=== PATIENT | female | born 1940 | race Caucasian/White ===

== ENCOUNTER 2019-12-05 19:01 | Observation (INO) | payer MEDICARE, OTHER, SELFPAY ==
[2019-12-05 19:02] VITALS: BP 171/82; PULSE 76; PULSE 78; RESP 14; RESP 16; TEMP 36.3; O2SAT 98
--- NOTE | 2019-12-05 19:13 | EKG12_ITS ---
Test Reason : DYSRHYTHMIA Blood Pressure : / mmHG Vent. Rate : 073 BPM Atrial Rate : 073 BPM P-R Int : 174 ms QRS Dur : 098 ms QT Int : 412 ms P-R-T Axes : 067 044 066 degrees QTc Int : 453 ms Normal sinus rhythm Normal ECG Confirmed by YARELIS RANDALL, LOW ([id number]), health editor JUSTIN HERNANDEZ ([id number]) on 12/07/2019 11:30:49 AM Referred By: MARIZOL Confirmed By:LOW SANTOYO MD
--- NOTE | 2019-12-05 19:13 | CT_ITS ---
STUDY: CTA HEAD AND NECK WITH CONTRAST REASON FOR EXAM: Female, 78 years old. DIZZINESS X 3 DAYS RADIATION DOSAGE (If Supplied By Facility): CTDIvol = ( 30.35 ) mGy, DLP = ( 1466.95 ) mGycm TECHNIQUE: CT angiography was performed with a multi-detector CT scanner. Data acquisition was obtained from the skull base through the vertex following intravenous administration of IV 100mL Isovue-370. MIP images were reconstructed from the axial data set. Post-processing of the angiographic images was performed, with multiplanar reformation and 3D reconstruction. Individualized dose optimization techniques were used for this CT. COMPARISON: No relevant priors. FINDINGS: Normal bilateral petrous carotid arteries. Normal right cavernous carotid artery with a normal supraclinoid bifurcation. Normal left cavernous carotid artery with a normal supraclinoid bifurcation. Normal right A1 segments of the anterior cerebral artery. Normal left A1 segments of the anterior cerebral artery. Normal intact anterior communicating artery (ACOM). Normal bilateral A2 segments of the anterior cerebral arteries. Normal right M1 and M2 segments of the middle cerebral arteries, with a normal M1 bifurcation. Normal left M1 and M2 segments of the middle cerebral arteries, with a normal M1 bifurcation. Normal right posterior communicating artery (PCOM). Normal left posterior communicating artery (PCOM). Normal bilateral vertebral arteries. Normal basilar artery with a normal basilar bifurcation. The visualized bilateral superior cerebellar (SCA) arteries are normal. Normal bilateral P1, P2 and visualized P3 segments of the posterior cerebral arteries. There is no demonstrated aneurysm of the makah of Velázquez. There is no demonstrated abnormality of the visualized brain. AORTIC ARCH: Normal visualized aortic arch. Normal origins of the brachiocephalic, left common carotid, and left subclavian arteries. RIGHT CAROTID ARTERIES: Normal right common carotid artery (CCA). Normal right common carotid bulb. Normal origin of the right internal carotid (ICA) artery without a hemodynamically significant stenosis. Normal visualized cervical portion of the right internal carotid artery. Normal origin of the right external carotid artery (ECA). LEFT CAROTID ARTERIES: Normal left common carotid artery (CCA). Normal left common carotid bulb. Normal origin of the left internal carotid (ICA) artery without a hemodynamically significant stenosis. Normal visualized cervical portion of the left internal carotid artery. Normal origin of the left external carotid artery (ECA). VERTEBRAL ARTERIES: Normal bilateral vertebral arteries. There are multiple hypodense subcentimeter thyroid nodules these are low risk appearing but not completely evaluated. CT/CTA Head AND Neck W/ Contrast IMPRESSION: Normal CTA Head and neck with contrast. Electronically Signed: Araceli Vila, at 20:09 EDT Tel , Service support ,
--- NOTE | 2019-12-05 19:15 | ED.DCSUM_ITS ---
- ER Visit Summary Date of Service: 12/05/19 Chief Complaint: Vertigo History of Present Illness: The patient is a [address] Hassan. She reports that she has vertigo that began 2 to 3 days ago. It worsened today. It is a constant sense of the room spinning. It gets worse when she opens her eyes or moves her head. She reports that she has muffled hearing from her right ear which she has had for years. She reports that she had to have a myringotomy tube placed years ago for this on the right. She reports that is gotten worse again over the past 2 to 3 weeks. States that she has decreased hearing. She denies ringing in her ear, but does report a whooshing sound. She denies any pain to her ear. Patient reports that today she is been nausea with this and vomited twice. No blood in her emesis. She denies abdominal pain. She denies slurred speech, numbness, tingling, weakness, double vision, or headache. Physical Examination: Vitals: Stable. Afebrile. General: Well-nourished and well-developed. Head: Normocephalic atraumatic. HEENT: Right TM has a defect in it. Despite this there is a serous effusion as well. Left TM is normal. Neck: Supple, no lymphadenopathy. No JVD. Nontender. Cardiovascular: Regular rate and rhythm. No murmurs. Respiratory: No respiratory distress. Clear to auscultation bilaterally. Abdominal: Soft, nontender, nondistended, normal bowel sounds. No guarding, rebound, or peritoneal signs. Back: Nontender. Extremities: Nontender, no edema. Skin: Normal color, no rash. Neurologic: Alert and oriented ?3. Cranial nerves II through XII are intact. Normal strength and sensation. Rotary nystagmus with gaze to the right. Psych: Normal affect. Test Results: EKG is sinus at 73 with no acute changes. CBC shows segmented neutrophils 86 and lymphocytes of 10. Chem-7 shows a sodium 134, potassium 3.1, glucose 129. INR is 1.0. PTT is 24.0. Troponin is negative. Clinical Impression(s) from Imaging Studies Head/Neck CTA 12/05/19 19:13 IMPRESSION: Normal CTA Head and neck with contrast. Electronically Signed: Araceli Vila, at 20:09 EDT Tel , Service support , Emergency Department Course and Treatment: Patient had an IV placed. She was given Zofran IV and Antivert p.o. she has had some improvement. However, she remains dizzy and cannot ambulate. Treatment Plan: Patient was discussed with the hospitalist. She will be admitted for further evaluation treatment. Disposition: Admitted in improved condition. Impression: 1. Vertigo. 2. Right tympanic membrane perforation. 3. Serous effusion right TM. This note was generated with [employer] dictation software. It may contain incorrect words, spelling, and punctuation that were not noted in review of the chart prior to signing ED Disposition - Plan for ED Patient: Referrals: Juan Hassan MD [Primary Care Provider] -
[2019-12-05 19:23] LABS: Absolute Lymphocyte Count 0.87 X10^3/uL (0.83-4.51); Absolute Neutrophil Count 7.6 X10^3/uL (2.0-7.7); Basophil# 0.02 X10^3/uL; Basophil% 0.2 % (0-1); Eosinophil# 0.02 X10^3/uL; Eosinophils% 0.2 % (0-5); Hematocrit 43.8 % (37-47); Hemoglobin 14.2 g/dL (12.0-15.0); Lymphocyte # 0.87 X10^3/ul (4.0); Lymphocyte % 9.7 % (19-41); Mean Corp Hgb Conc 32.4 g/dL (32-36); Mean Corpuscular Hgb 30.4 pg (27.0-32.0); Mean Corpuscular Volume 93.8 fL (81-99); Mean Platelet Vol. 9.6 fl (6.2-12.0); Monocyte# 0.36 X10^3/uL; NRBC Flagged by Analyzer 0 % (0-5); Neutrophil # 7.63 X10^3/uL (2.7-7.7); Neutrophil % 85.6 % (47-70); Platelet Count 225 K/mm3 (150-450); RBC Distribution Width CV 12.3 % (11.6-14.6); RBC Distribution Width SD 42.5 fl (35.1-43.9); Red Blood Count 4.67 M/mm3 (4.2-5.4); White Blood Count 8.9 K/mm3 (4.4-11.0)
[2019-12-05] MEDS: Ondansetron 4 MG/2 ML Vial IV (19:31)
[2019-12-05] MEDS: Meclizine HCl 25 MG Tablet PO (19:32)
[2019-12-05] MEDS: 0.9% Normal Saline 1,000 ML 100 ML IV ×2 (19:32→21:27)
[2019-12-05 19:33] VITALS: BP 157/82; PULSE 74; RESP 18; O2SAT 98
[2019-12-05 19:35] LABS: Anion Gap 8 (5-15); BUN 13 mg/dL (7-18); BUN/Creat Ratio 13.6 RATIO (10-20); Calcium,Total 9.9 mg/dL (8.5-10.1); Chloride 100 mmol/L (98-107); Creatinine, Serum 0.95 mg/dL (0.55-1.02); EST Glomerular Filtration Rate 60 mL/min (>60); Est Glom Filt Rate - Afr Amer 73 mL/min (>60); Glucose 129 mg/dL (74-106); Potassium 3.1 mmol/L (3.5-5.1); Sodium Level 134 mmol/L (136-145)
[2019-12-05 19:46] LABS: Bedside Glucose 110 mg/dL (70-110)
[2019-12-05 20:00] VITALS: BP 146/68; PULSE 79; RESP 16; O2SAT 98
[2019-12-05 20:36] VITALS: BP 122/60; PULSE 81; RESP 14; TEMP 36.6; O2SAT 98
--- NOTE | 2019-12-05 20:36 | HP.PCM_ITS ---
History of Present Illness Date of Admission: 12/05/19 Chief Complaint: Vertigo The patient is a 78 year old F with PMH as below who presents to the hospital with vertigo. Said about 2 to 3 days ago and she is had it before. She also has a history of myringotomy on the right, and in the ER it was noticed that her rotary nystagmus was also to the right. She denies any ringing in her ears, lightheadedness, dizziness. There is no focal weakness. But she states that she has difficulty getting around at home because of how dizzy she is. In the ER they did a CTA of her head and neck was normal and given the nonhealed myringotomy with serous effusion on the right ear, this is more than likely peripheral vertigo. Past Medical History Past Medical History (Chronic Problems): Chronic Problems History of spinal stenosis (Chronic) Dyslipidemia (Chronic) Allergies Sulfa (Sulfonamide Antibiotics) Allergy (Verified 12/05/19 19:06) Swelling acetaminophen [From Vicodin] Adverse Reaction (Verified 12/05/19 19:06) Vomiting hydrocodone bitartrate [From Vicodin] Adverse Reaction (Verified 12/05/19 19:06) Vomiting promethazine HCl [From Phenergan] Adverse Reaction (Verified 12/05/19 19:06) Vomiting Home Medications: Ambulatory Orders Medication Instructions Recorded Amitriptyline HCl [Elavil] 75 mg PO QHS 02/26/13 Aspirin [Aspirin, Baby] 81 mg PO DAILY@0800 02/26/13 Calcium Carbonate/Vitamin D3 600 mg PO DINNER 02/26/13 [Calcium 600 + Vit D3 Tablet] Triamterene 37.5MG/Hctz 25MG 1 tablet PO DAILY 02/26/13 [Maxzide 37.5 mg-25 mg Tablet] [place]-3 Fatty Acids/Fish Oil 1 ea PO DAILY 12/05/19 [[place] 3 1,000 mg Softgel] Pravastatin [Pravachol] 20 mg PO QHS 12/05/19 Ropinirole HCl [Requip] 2 mg PO DINNER 12/05/19 Surgical History: cholecystectomy Smoking Status: Never smoker Alcohol: None Drugs: None - *Family History Maternal History Items: Heart Disease Paternal History Items: Heart Disease Review of Systems Constitutional: Denies: Chills, Fever, Weight Change HEENT: Denies: Head Aches, Sinus Congestion, Sinus Drainage Cardiovascular: Denies: Chest Pain, Palpitations Respiratory: Denies: Cough, Shortness of breath at rest, Sputum production Gastrointestinal: Denies: Abdominal Pain, Nausea, Vomiting Genitourinary: Denies: Dysuria Musculoskeletal: Denies: Joint Pain, Joint Tenderness Skin: Denies: Rash, Wounds Neurological: Reports: - - Dizziness. Denies: Blurred vision, Double vision, Focal weakness, Numbness, Tingling Psychiatric: Denies: Anxiety, Depression Hematologic/ Lymphatic: Denies: Easy Bruising, Easy Bleeding VTE Information - Inpt Only VTE Present on Admission: No - Physical Exam Vitals/I&O's: Vital Signs Temp Pulse Resp BP Pulse Ox 97.4 F L 79 16 146/68 H 98 12/05/19 19:02 12/05/19 20:00 12/05/19 20:00 12/05/19 20:00 12/05/19 20:00 Oxygen Delivery Method Room Air Weight: 166 lb 14.239 oz Body Mass Index (BMI) 30.0 Finger Stick Blood Glucose 110 General: Alert, Oriented x3, Cooperative, No apparent distress HEENT: Atraumatic, PERRLA, EOMI, Normocephalic, - - Right TM with nonhealed myringotomy, serous effusion, no longer Oral: Moist Mucosa Neck: Supple, No JVD Lungs: Clear to auscultation, Normal air movement, No rhonchi, No wheeze, No rales Cardiovascular: Regular rate, Regular Rhythm, Normal S1, Normal S2, No murmurs Abdomen: Soft, Non Tender, Non-Distended, No Hepato-splenomegaly Extremities: No edema, Capillary Refill Less than 3 Seconds Skin: No rashes, No breakdown Neurological: Neuro grossly intact, Sensory exam intact to light touch and pain Psych/Mental Status: Normal Affect, Appropriate Laboratory Results 12/05/19 19:06: WBC 8.9, RBC 4.67, Hgb 14.2, Hct 43.8, MCV 93.8, MCH 30.4, MCHC 32.4, RDW Std Deviation 42.5, RDW Coeff of Bailee 12.3, Plt Count 225, MPV 9.6, Immature Gran % (Auto) 0.300, Neut % (Auto) 85.6 H, Lymph % (Auto) 9.7 L, [place] % (Auto) 4.0, Eos % (Auto) 0.2, Baso % (Auto) 0.2, Absolute Neuts (auto) 7.6, Absolute Lymphs (auto) 0.87, Nucleated RBC % 0 12/05/19 19:06: PT 13.0, INR 1.0, APTT 24.0 L 12/05/19 19:06: Sodium 134 L, Potassium 3.1 L, Chloride 100, Carbon Dioxide 26.0, Anion Gap 8, BUN 13, Creatinine 0.95, Estim Creat Clear Calc 38.60, Est GFR (MDRD) Af Amer 73, Est GFR (MDRD) Non-Af 60, BUN/Creatinine Ratio 13.6, Glucose 129 H, Calcium 9.9, Troponin I < 0.015 12/05/19 19:30: POC Glucose 110 Current Medications Sodium Chloride () 1,000 mls @ 100 mls/hr IV .Q10H ONE Stop: 12/06/19 05:12 Last Admin: 12/05/19 19:32 Dose: 100 mls/hr Documented by: Labetalol HCl (Trandate) 20 mg IV X1 PRN PRN Reason: BLOOD PRESSURE Assessment/Plan 1. Peripheral vertigo/hypokalemia -Continue with meclizine continue with IV fluids, she says that her dizziness is much improved -She says that her ENT wench he evaluated her felt that her issues with her ear a few years ago was secondary to allergies -CT of the head and neck was negative 2. HTN/HLD -Blood pressures are stable -Can continue with her home blood pressure medication -Continue with pravastatin -Continue with aspirin 3. Depression/anxiety -Stable -Continue with amitriptyline DVT: Ambulation OBSV E&M: 55681 Initial observation care L2
[2019-12-05 21:08] VITALS: BP 141/65; PULSE 81; RESP 18; TEMP 36.4; O2SAT 100
[2019-12-05 21:20] VITALS: BMI 30.1
[2019-12-06 03:09] VITALS: BP 121/77; PULSE 85; RESP 16; TEMP 36.7; O2SAT 99
[2019-12-06 06:02] LABS: Absolute Lymphocyte Count 2.26 X10^3/uL (0.83-4.51); Absolute Neutrophil Count 4.6 X10^3/uL (2.0-7.7); Basophil# 0.02 X10^3/uL; Basophil% 0.3 % (0-1); Eosinophil# 0.05 X10^3/uL; Eosinophils% 0.7 % (0-5); Hematocrit 40.6 % (37-47); Hemoglobin 13.3 g/dL (12.0-15.0); Lymphocyte # 2.26 X10^3/ul (4.0); Lymphocyte % 30.3 % (19-41); Mean Corp Hgb Conc 32.8 g/dL (32-36); Mean Corpuscular Hgb 31.2 pg (27.0-32.0); Mean Corpuscular Volume 95.3 fL (81-99); Mean Platelet Vol. 9.4 fl (6.2-12.0); Monocyte# 0.51 X10^3/uL; Monocyte% 6.8 % (0-10); NRBC Flagged by Analyzer 0 % (0-5); Neutrophil # 4.58 X10^3/uL (2.7-7.7); Neutrophil % 61.5 % (47-70); Platelet Count 215 K/mm3 (150-450); RBC Distribution Width CV 12.4 % (11.6-14.6); RBC Distribution Width SD 43.3 fl (35.1-43.9); Red Blood Count 4.26 M/mm3 (4.2-5.4); White Blood Count 7.5 K/mm3 (4.4-11.0)
[2019-12-06 06:26] LABS: Anion Gap 5 (5-15); BUN 10 mg/dL (7-18); BUN/Creat Ratio 11.7 RATIO (10-20); Calcium,Total 8.6 mg/dL (8.5-10.1); Chloride 108 mmol/L (98-107); Creatinine, Serum 0.86 mg/dL (0.55-1.02); EST Glomerular Filtration Rate 68 mL/min (>60); Est Glom Filt Rate - Afr Amer 82 mL/min (>60); Estimated Creatinine Clearance 42.64 ml/min; Glucose 86 mg/dL (74-106); Potassium 3.8 mmol/L (3.5-5.1); Sodium Level 139 mmol/L (136-145)
[2019-12-06] MEDS: 0.9% Normal Saline 1,000 ML 100 ML IV (06:45)
[2019-12-06] MEDS: Triamterene 37.5MG/Hctz 25MG Capsule 1 CAP PO (09:09)
[2019-12-06] MEDS: Aspirin 81 MG TAB.CHEW PO (09:10)
[2019-12-06 09:14] VITALS: BP 133/58; PULSE 81; RESP 18; TEMP 36.7; O2SAT 98
[2019-12-06] MEDS: Meclizine HCl 25 MG Tablet PO (10:55)
--- NOTE | 2019-12-06 11:49 | PCM.DC ---
You will use the following diet at home:: No restrictions Your food should be the consistency of: Regular Your liquids should be the consistency of: Regular/Thin Discharge Activity: Return to Normal Activity Weight Bearing Status: Full weight bearing Additional Instructions: GET EVALUATED BY VESTIBULAR THERAPY Allergies/Adverse Reactions: Allergies Sulfa (Sulfonamide Antibiotics) Allergy (Verified 12/05/19 19:06) Swelling acetaminophen [From Vicodin] Adverse Reaction (Verified 12/05/19 19:06) Vomiting hydrocodone bitartrate [From Vicodin] Adverse Reaction (Verified 12/05/19 19:06) Vomiting promethazine HCl [From Phenergan] Adverse Reaction (Verified 12/05/19 19:06) Vomiting Medications to take at Discharge Amitriptyline HCl [Elavil] 75 mg PO QHS 02/26/13 Aspirin [Aspirin, Baby] 81 mg PO DAILY@0800 02/26/13 Calcium Carbonate/Vitamin D3 [Calcium 600-Vit D3 800 Tablet] 600 mg PO DINNER 02/26/13 Triamterene 37.5MG/Hctz 25MG [Maxzide 37.5 mg-25 mg Tablet] 1 tablet PO DAILY 02/26/13 [place]-3 Fatty Acids/Fish Oil [[place] 3 1,000 mg Softgel] 1 ea PO DAILY 12/05/19 Pravastatin [Pravachol] 20 mg PO QHS 12/05/19 Ropinirole HCl [Requip] 2 mg PO DINNER 12/05/19 Diazepam [Valium] 2 - 4 mg PO TID PRN PRN #20 tablet 12/06/19 The following prescriptions were given: Diazepam [Valium] 2 - 4 mg PO TID PRN PRN #20 tablet PRN Reason: Dizziness Transmission Status: Received by [id number] Primary Care Physician: Juan Hassan MD [Primary Care Provider] - Please follow up with your Primary Care Physician in: IN 2 WEEKS Test Results: Test results from this visit will be discussed in further detail at your follow-up appointment, if applicable.
[2019-12-06 12:44] VITALS: BP 150/76; PULSE 83; RESP 18; TEMP 36.8; O2SAT 96
--- NOTE | 2019-12-06 15:33 | DS.PCM_ITS ---
Discharge Date and Diagnosis Date of Admission: 12/05/19 Date of Discharge: 12/06/19 - Primary Discharge Diagnosis Acute Problems: #1 acute recurrent benign vertigo #2 hyperlipidemia #3 hypokalemia - Secondary Discharge Diagnosis Chronic Problems: Chronic Problems History of spinal stenosis (Chronic) Dyslipidemia (Chronic) Hospital Course and Treatment Operations: None Procedures: None Summary of Care Provided: The patient is a 78 year old F was seen in the emergency room at [facility] with complaints of vertigo. She has had vertigo previously. Work-up in the emergency room included a CTA of her head and neck which was unremarkable, patient had a slightly low potassium on her chemistry panel. Due to the fact the patient was unable to ambulate due to the vertigo, she was placed into observation status on MedSurg 3 and placed on Antivert. Her symptoms improved markedly during her hospitalization, she was seen by PT and OT and it was recommended that she have PT for vestibular therapy as an outpatient. On 12/06/2019, patient was seen and examined: On examination she appeared in good health and spirits, she does not appear to be in any distress. Vital signs as documented. Skin warm and dry and without overt rashes. Neck without JVD, thyroid appears normal, trachea is midline, neck is supple. Lungs clear, normal air movement was noted. Heart exam notable for regular rhythm, normal sounds and absence of murmurs, rubs or gallops. Abdomen unremarkable and without evidence of organomegaly, masses, or abdominal aortic enlargement, bowel sounds are present in all 4 quadrants, no abdominal tenderness was noted. Extremities nonedematous, no cyanosis was noted, no clubbing was noted. Neuro: Cranial nerves II through XII are grossly intact, no focal motor deficits were noted, sensation to light touch and pinprick is intact, motor exam 5/5 throughout. Psych: Patient is alert and oriented x3, she does not appear anxious or depressed, she does not appear agitated. Patient was discharged home in stable condition on 12/06/2019. - Physical Exam Vitals/I&O's: Vital Signs Temp Pulse Resp BP Pulse Ox 98.2 F 83 18 150/76 H 96 12/06/19 12:44 12/06/19 12:44 12/06/19 12:44 12/06/19 12:44 12/06/19 12:44 Oxygen Delivery Method Room Air Weight: 75.8 kg Body Mass Index (BMI) 30.0 Finger Stick Blood Glucose 110 Intake and Output for Last 24 Hours 12/04/19 12/05/19 12/06/19 23:59 23:59 23:59 Intake Total 188.33 / 338.33 1731.67 / 1731.67 Balance 188.33 / 338.33 1731.67 / 1731.67 Laboratory Results 12/05/19 19:06: WBC 8.9, RBC 4.67, Hgb 14.2, Hct 43.8, MCV 93.8, MCH 30.4, MCHC 32.4, RDW Std Deviation 42.5, RDW Coeff of Bailee 12.3, Plt Count 225, MPV 9.6, Immature Gran % (Auto) 0.300, Neut % (Auto) 85.6 H, Lymph % (Auto) 9.7 L, [place] % (Auto) 4.0, Eos % (Auto) 0.2, Baso % (Auto) 0.2, Absolute Neuts (auto) 7.6, Absolute Lymphs (auto) 0.87, Nucleated RBC % 0 12/05/19 19:06: PT 13.0, INR 1.0, APTT 24.0 L 12/05/19 19:06: Sodium 134 L, Potassium 3.1 L, Chloride 100, Carbon Dioxide 26.0, Anion Gap 8, BUN 13, Creatinine 0.95, Estim Creat Clear Calc 38.60, Est GFR (MDRD) Af Amer 73, Est GFR (MDRD) Non-Af 60, BUN/Creatinine Ratio 13.6, Glucose 129 H, Calcium 9.9, Troponin I < 0.015 12/05/19 19:30: POC Glucose 110 12/06/19 05:38: WBC 7.5, RBC 4.26, Hgb 13.3, Hct 40.6, MCV 95.3, MCH 31.2, MCHC 32.8, RDW Std Deviation 43.3, RDW Coeff of Bailee 12.4, Plt Count 215, MPV 9.4, Immature Gran % (Auto) 0.400, Neut % (Auto) 61.5, Lymph % (Auto) 30.3, [place] % (Auto) 6.8, Eos % (Auto) 0.7, Baso % (Auto) 0.3, Absolute Neuts (auto) 4.6, Absolute Lymphs (auto) 2.26, Nucleated RBC % 0 12/06/19 05:38: Sodium 139, Potassium 3.8, Chloride 108 H, Carbon Dioxide 26.0, Anion Gap 5, BUN 10, Creatinine 0.86, Estim Creat Clear Calc 42.64, Est GFR (MDRD) Af Amer 82, Est GFR (MDRD) Non-Af 68, BUN/Creatinine Ratio 11.7, Glucose 86, Calcium 8.6 Discharge Activity: Return to Normal Activity Weight Bearing Status: Full weight bearing Home Medications: Medications to take at Discharge Amitriptyline HCl [Elavil] 75 mg PO QHS 02/26/13 Aspirin [Aspirin, Baby] 81 mg PO DAILY@0800 02/26/13 Calcium Carbonate/Vitamin D3 [Calcium 600-Vit D3 800 Tablet] 600 mg PO DINNER 02/26/13 Triamterene 37.5MG/Hctz 25MG [Maxzide 37.5 mg-25 mg Tablet] 1 tablet PO DAILY 02/26/13 [place]-3 Fatty Acids/Fish Oil [[place] 3 1,000 mg Softgel] 1 ea PO DAILY 12/05/19 Pravastatin [Pravachol] 20 mg PO QHS 12/05/19 Ropinirole HCl [Requip] 2 mg PO DINNER 12/05/19 Diazepam [Valium] 2 - 4 mg PO TID PRN PRN #20 tab 12/06/19 Following Prescriptions Were Given to Patient: Diazepam [Valium] 2 - 4 mg PO TID PRN PRN #20 tab PRN Reason: Dizziness Transmission Status: Received by [facility]/pharmacy #[id number] Primary Care Physician: Juan Hassan MD [Primary Care Provider] - Please follow up with your Primary Care Physician in: IN 2 WEEKS Disposition: Home Minutes spent on discharge:: 30 Patient Condition:: Stable Medical Necessity - Tobacco Use Smoking Status: Never smoker Meaningful Use Info Meaningful Use Diagnoses (Choose all that apply): None applicable OBSV E&M: 24654 Observation care discharge
== END 2019-12-06 13:02 | disposition home or self-care (01) ==
LOC: ED 19:46 → MS3 20:37
PROVIDERS: Admitting Provider Family Medicine; Emergency Provider Emergency Medicine; PCP Family Medicine; Visit Provider Internal Medicine
DX: R42 Dizziness and giddiness (principal); R11.2 Nausea with vomiting, unspecified; E78.5 Hyperlipidemia, unspecified; E87.6 Hypokalemia; F41.9 Anxiety disorder, unspecified; F32.9 Major depressive disorder, single episode, unspecified; I10 Essential (primary) hypertension; Z79.899 Other long term (current) drug therapy; Z79.82 Long term (current) use of aspirin; H55.00 Unspecified nystagmus; H72.91 Unspecified perforation of tympanic membrane, right ear; E04.1 Nontoxic single thyroid nodule
CPT/HCPCS: 36415; 70496; 70498; 80048; 82962; 84484; 85025; 85610; 85730; 93005; 96361; 96374; 97162; 99218; 99285; J7030; Q9967; A4216; G0378; J2405

== ENCOUNTER → 2020-05-16 12:56 | Outpatient (CLI) | payer MEDICARE, OTHER, SELFPAY ==
--- NOTE | 2020-05-16 13:05 | MRI_ITS ---
STUDY: MRI BRAIN WITH AND WITHOUT CONTRAST (ATTENTION INTERNAL AUDITORY CANALS - I.A.C.''s) REASON FOR EXAM: Female, 79 years old. ASYMMETRIC HEARING LOSS RT TINNITUS TECHNIQUE: Standardized multiplanar fat and water weighted pulse sequences were obtained. DOTAREM 15ML IV was administered for the contrast portion of the examination. COMPARISON: None. FINDINGS: Normal bilateral temporal bones. Normal bilateral internal auditory canals. There is no demonstrated intracanalicular or cisternal vestibular schwannoma (acoustic neuroma). There is no enhancement of the bilateral VIIth or VIIIth cranial nerves. Normal bilateral cochlea, vestibules and semicircular canals. There is mild cerebral atrophy with widening of the extra-axial spaces and ventricular dilatation. There are a limited number of small white matter hyperintensities, distributed throughout the deep white matter tracts of the cerebral hemispheres, consistent with mild chronic white matter ischemic changes. There is no evidence for recent intracranial ischemia or other cause of cytotoxic edema on diffusion weighted imaging (DWI). Normal bilateral basal ganglia. Normal thalami. Normal flow voids within the major intracranial circulation suggesting patency by spin echo criteria. Normal venous enhancement. There is no enhancing intra-axial or extra-axial abnormality. There is no extra-axial fluid accumulation. Normal sella turcica, pituitary gland, infundibular stalk, optic chiasm and hypothalamus. Normal tectal plate and pineal gland. Normal midbrain, margarita and medulla. Normal cerebellum. Normal basal cisterns. No demonstrated orbital abnormality, within the constraints of a routine brain study. Normal visualized paranasal sinuses. Normal calvarium and skull base. Normal visualized soft tissue structures. Normal visualized upper cervical spine. MRI/Brain W/WO Contrast IMPRESSION: Involutional changes of the brain, as described above. No MR evidence of vestibular schwannoma (acoustic neuroma) per Electronically Signed: Omer Williamson MD at 16:42 EST Tel , Service support ,
== END ==
PROVIDERS: PCP Family Medicine; Referring Provider Otolaryngology; Visit Provider Otolaryngology
DX: H93.11 Tinnitus, right ear (principal); H90.3 Sensorineural hearing loss, bilateral
CPT/HCPCS: 70553; A9575

== ENCOUNTER 2020-05-28 19:37 | Emergency (ER) | payer MEDICARE, OTHER, SELFPAY ==
[2020-05-28 19:37] VITALS: BP 161/101; PULSE 92; RESP 18; TEMP 36.4; O2SAT 96; BMI 27.4
--- NOTE | 2020-05-28 19:52 | ED.VISSUMM ---
- ER Visit Summary Date of Service: 05/28/20 Chief Complaint: Elevated blood pressure History of Present Illness: The patient is a 79 F of hypertension, spinal stenosis and vertigo. Patient states she has been dealing vertigo for months. She had extensive work-up of that including MRI and CTA of head neck. They recently took her off her Antivert. Says that her blood pressures been running higher the last 2 days. She denies any headache, chest pain or shortness of breath. Normal bowel movements and normal urination. No nausea, vomiting or diarrhea. Physical Examination: Well appearing older female accompanied by her . Initial vital signs are stable initial blood pressure is 161/101. While I am in the room her blood sugar was 178/87. She is in no distress. HEENT exam unremarkable. Normal speech. No facial droop. Pupils round reactive light extra motions are intact. Neck nontender. Lungs clear to auscultation bilaterally. Heart regular rhythm no murmur rate about 90. Abdomen soft nontender normal bowel sounds no peritoneal signs. Patient moving all 4 extremities. Neurovascular intact. Nontender no edema. Neurologically she is awake alert with no focal motor deficits. Equal symmetrical utilization coordinator strength. Normal speech. No drift. Fingertip to nose within normal limits. NIH is 0. Test Results: None. Emergency Department Course and Treatment: Patient with acute on chronic hypertension. I discussed with both her and her when we did decide to treat elevated blood pressure in the emergency department. We are going to monitor her and do repeat blood pressures and reassess. Treatment Plan: Log her blood pressures twice daily over the next week and follow-up with her primary care physician to decide if they need to adjust her medications. Take your normal medications as prescribed. Disposition: Discharge Impression: Acute on chronic hypertension History of vertigo This note was generated with [employer] dictation software. It may contain incorrect words, spelling, and punctuation that were not noted in review of the chart prior to signing ED Disposition - Plan for ED Patient: Referrals: Juan Hassan MD [Primary Care Provider] -
--- NOTE | 2020-05-28 19:55 | ED.DEP ---
ED Disposition - Plan for ED Patient: Disposition: Home or Assisted Living Instructions: ED Hypertension, Established Referrals: Juan Hassan MD [Primary Care Provider] - 1 Week Additional Instructions: 10 your current medications. Log your blood pressure twice daily for the next 5 to 7 days. Once in the morning and once in the evening. Follow-up with your primary care physician to the middle or end of next week show them your blood pressure readings and your primary care physician and you can decide if you need to alter your blood pressure dose or the medication.
[2020-05-28 20:21] VITALS: BP 142/89
[2020-05-28 20:28] VITALS: BP 134/79; PULSE 78; RESP 19; O2SAT 99
== END 2020-05-28 20:41 | disposition home or self-care (01) ==
LOC: ED 20:37
PROVIDERS: Emergency Provider Emergency Medicine; PCP Family Medicine
DX: I10 Essential (primary) hypertension (principal); E78.00 Pure hypercholesterolemia, unspecified
CPT/HCPCS: 99283

== ENCOUNTER 2021-03-30 23:53 | Emergency (ER) | payer MEDICARE, OTHER, SELFPAY ==
[2021-03-30 23:54] VITALS: BP 91/48; PULSE 68; RESP 17; TEMP 36.4; O2SAT 97; BMI 32.0
--- NOTE | 2021-03-31 00:13 | EKG12_ITS ---
Test Reason : DYSRHYTHMIA Blood Pressure : / mmHG Vent. Rate : 071 BPM Atrial Rate : 071 BPM P-R Int : 152 ms QRS Dur : 104 ms QT Int : 420 ms P-R-T Axes : 054 019 043 degrees QTc Int : 456 ms Normal sinus rhythm Normal ECG Confirmed by JACOBO RANDALL, REMEDIOS ([id number]), metropolitan editor JUSTIN HERNANDEZ ([id number]) on 04/02/2021 10:46:42 A M Referred By: PEREZ Confirmed By:NOMI CENTENO MD
[2021-03-31] MEDS: 0.9% Normal Saline 1,000 ML 999 ML IV (00:25)
[2021-03-31 00:28] LABS: Absolute Lymphocyte Count 1.51 X10^3/uL (0.83-4.51); Basophil# 0.02 X10^3/uL; Basophil% 0.3 % (0-1); Eosinophil# 0.17 X10^3/uL; Eosinophils% 2.7 % (0-5); Hematocrit 31.8 % (37-47); Hemoglobin 10.1 g/dL (12.0-15.0); Lymphocyte # 1.51 X10^3/ul (0.83-4.51); Lymphocyte % 23.9 % (19-41); Mean Corp Hgb Conc 31.8 g/dL (32-36); Mean Corpuscular Hgb 28.1 pg (27.0-32.0); Mean Corpuscular Volume 88.6 fL (81-99); Mean Platelet Vol. 9.3 fl (6.2-12.0); Monocyte# 0.58 X10^3/uL; Monocyte% 9.2 % (0-10); NRBC Flagged by Analyzer 0 % (0-5); Neutrophil # 4.02 X10^3/uL (2.7-7.7); Neutrophil % 63.6 % (47-70); Platelet Count 259 K/mm3 (150-450); RBC Distribution Width CV 13.2 % (11.6-14.6); RBC Distribution Width SD 42.7 fl (35.1-43.9); Red Blood Count 3.59 M/mm3 (4.2-5.4); White Blood Count 6.3 K/mm3 (4.4-11.0)
--- NOTE | 2021-03-31 00:40 | RAD_ITS ---
EXAM: XR CHEST, 1 VIEW CLINICAL INDICATION: syncope TECHNIQUE: Frontal view of the chest. This report was created using [employer] report generation technology. COMPARISON: None. FINDINGS: LUNGS AND PLEURAL SPACES: Question mild left pleural parenchymal scarring. No pneumothorax. No significant pleural effusion. Mild subsegmental atelectasis and/or scarring at the periphery of the right base. HEART: Unremarkable. Cardiac silhouette not enlarged. MEDIASTINUM: Central airways and mediastinal contour are unremarkable. BONES/JOINTS: Degenerative changes of the left glenohumeral joint. Degenerative changes of the acromioclavicular joints. Degenerative changes of the spine. SOFT TISSUES: Unremarkable. VASCULATURE: Atherosclerotic calcification is of the nonenlarged thoracic aortic arch. RAD/Chest 1 View (Portable) IMPRESSION: No acute disease. Electronically Signed: Hever Mccarthy MD at 1:07 EST Tel , Service support ,
[2021-03-31 00:59] LABS: Anion Gap 7 (5-15); BUN 15 mg/dL (7-18); BUN/Creat Ratio 18.9 RATIO (10-20); Calcium,Total 9.4 mg/dL (8.5-10.1); Chloride 100 mmol/L (98-107); Creatinine, Serum 0.79 mg/dL (0.55-1.02); EST Glomerular Filtration Rate 74 mL/min (>60); Est Glom Filt Rate - Afr Amer 90 mL/min (>60); Estimated Creatinine Clearance 35.49 ml/min; Glucose 112 mg/dL (74-106); Magnesium 1.8 mg/dL (1.6-2.6); Sodium Level 133 mmol/L (136-145); Thyroid Stim Hormone (TSH) 6.57 uIU/mL (0.358-3.74); Troponin-I HS 4 pg/mL (3.0-54.0)
[2021-03-31 01:00] LABS: Bacteria 0 SEEN /hpf (None Seen); Mucous, Urine 0 SEEN /hpf (<or=2+); Red Blood Cells-Urine 0 SEEN /hpf (0-5); Squamous Epithelial Cells - UA 0 SEEN /hpf (5-10); White Blood Cells 0 SEEN /hpf (0-5)
[2021-03-31 01:01] LABS: Color, Urine Yellow (Yellow); Glucose, Dipstick Normal (Normal); Ketone-Dipstick Negative (Negative); Leukocyte Esterase-Dipstick Negative /ul (Negative); Nitrite-Dipstick Negative (Negative); Occult Blood-Urine Negative /ul (Negative); Protein-Dipstick 30 mg/dl (Negative); Urine Bilirubin Dipstick Negative (Negative); Urine Clarity Clear (Clear); Urine Urobilinogen Normal (Normal); Urine pH 6.5 (5.0 - 8.0)
--- NOTE | 2021-03-31 01:09 | EDS_ITS ---
HPI History of Present Illness Chief Complaint: Syncope Narrative Narrative: Patient is an 80-year-old female who states she was at home this evening sitting in her chair with her . She stated she started to feel lightheaded and nauseous. states that she dropped her head and would not respond for multiple minutes. He states there was no tonic-clonic shaking to suggest seizure. Patient states when she woke up she knew who she was and where she was at but was wondering what happened. She states she feels fine at this time but with the event occurring at home was brought to the hospital for evaluation. The patient denies any chest pain or palpitations prior to the event she denies any loss of bowel or bladder control PFSH PFSH Home Medications amitriptyline 75 mg PO QHS 02/26/13 [History Last Taken 12/04/19] aspirin 81 mg PO DAILY@0800 02/26/13 [History Last Taken 12/05/19] calcium carbonate-vitamin D3 600 mg PO DINNER 02/26/13 [History Last Taken 12/04/19] triamterene-hydrochlorothiazid [Maxzide-25mg] 1 tab PO DAILY 02/26/13 [History Last Taken 12/05/19] omega-3 fatty acids-fish oil 1 ea PO DAILY 12/05/19 [History Last Taken 12/05/19] pravastatin 20 mg PO QHS 12/05/19 [History Last Taken 12/04/19] ropinirole 3 mg PO DINNER 12/05/19 [History Last Taken 12/04/19] lisinopril 20 mg PO DAILY 03/31/21 [History Last Taken Unknown] pregabalin [Lyrica] 75 mg PO DAILY 03/31/21 [History Last Taken Unknown] Allergy/AdvReac Type Severity Reaction Status Date / Time Sulfa (Sulfonamide Allergy Swelling Verified 03/30/21 23:58 Antibiotics) acetaminophen [From Vicodin] AdvReac Vomiting Verified 03/30/21 23:58 hydrocodone bitartrate AdvReac Vomiting Verified 03/30/21 23:58 [From Vicodin] promethazine HCl AdvReac Vomiting Verified 03/30/21 23:58 [From Phenergan] Social History Smoking Status: Never smoker ROS ROS ED Constitutional Constitutional ED: Denies chills or fever(s) ENT ENT ED: Denies sore throat Cardiovascular Cardiovascular: Reports other Details: Positive syncope ; Denies chest pain, palpitations or racing heartbeat Respiratory/Chest Respiratory/Chest: Denies cough or dyspnea Gastrointestinal Gastrointestinal: Reports nausea; Denies abdominal pain, diarrhea or vomiting Genitourinary Genitourinary ED: Denies dysuria Musculoskeletal Musculoskeletal: Denies myalgias Integumentary Denies rash Neurologic Neurologic: Denies headache(s) Hematologic/Lymphatic Hematologic/Lymphatic: Denies easy bleeding or easy bruising EXAM Physical Exam Const Vital Signs: 03/30/21 23:54 Temperature 97.5 F L Temperature Source Temporal Pulse Rate 68 Respiratory Rate 17 Blood Pressure 91/48 L Blood Pressure Mean 62 Pulse Ox 97 Oxygen Delivery Method Room Air Positive well nourished and well developed General Appearance ED: well developed HEENT Reports dry mucous membranes Mouth ED: Yes dry mucous membranes Mouth: dry mucous membranes Eyes PERRL and EOMs intact bilaterally General Eye ED: Negative for pale conjunctiva Neck supple Resp normal respiratory effort and clear to auscultation bilaterally Cardio regular rate and regular rhythm Rate: other Other Details: Radial pulses are plus 2 out of 4 bilaterally are equal and symmetric GI normal to inspection, nondistended, normoactive bowel sounds, non-tender, non- distended and no masses GI Narrative: No voluntary guarding or rigidity no pulsatile mass Auscultation: normoactive bowel sounds Palpation: soft Extremity normal to inspection Neuro oriented x3 and CN's II-XII intact bilaterally Sensorium / Orientation: alert Motor Exam: strength 5/5 throughout Psych mental status grossly normal Skin no rashes or lesions noted Skin Narrative: Skin turgor is increased MDM MDM MDM Narrative Medical decision making narrative: To the ER awake and alert with normal neurologic exam. Her history is concerning for a syncopal event most likely caused by lack of blood flow to the brain either by orthostasis or a cardiac dysrhythmia. Secondary to this a basic work-up was obtained. Blood work showed no signs of acute kidney injury or severe electrolyte derangement. Her hemoglobin is slightly down at 10 from the previous value but this should not be a clinically significant drop to cause any type of physical event. Her urine shows no sign of infection her chest x-ray reveals no lung pathology. She had no cardiac dysrhythmia noted while in the ER and on reevaluation remains awake and alert with normal neurologic exam. Therefore at this time as there is no obvious focal neurologic deficits signs of cardiac damage severe dehydration or electrolyte disturbance and patient's had no dysrhythmia noted while in the ER she can be discharged home from her 1 syncopal event and can follow-up with cardiology or her family doctor to discuss need for further testing such as Holter monitor. Lab Data Attestation: I reviewed the patient's lab results. Labs: Laboratory Results - last 24 hr 03/31/21 03/31/21 03/31/21 00:20 00:20 00:56 WBC 6.3 RBC 3.59 L Hgb 10.1 L Hct 31.8 L MCV 88.6 MCH 28.1 MCHC 31.8 L RDW Std Deviation 42.7 RDW Coeff of Bailee 13.2 Plt Count 259 MPV 9.3 Immature Gran % (Auto) 0.300 Neut % (Auto) 63.6 Lymph % (Auto) 23.9 Bailey % (Auto) 9.2 Eos % (Auto) 2.7 Baso % (Auto) 0.3 Absolute Neuts (auto) 4.0 Absolute Lymphs (auto) 1.51 Nucleated RBC % 0 Sodium 133 L Potassium 4.0 Chloride 100 Carbon Dioxide 26.0 Anion Gap 7 BUN 15 Creatinine 0.79 Estim Creat Clear Calc 35.49 Est GFR (MDRD) Af Amer 90 Est GFR (MDRD) Non-Af 74 BUN/Creatinine Ratio 18.9 Glucose 112 H Calcium 9.4 Magnesium 1.8 Troponin I High Sens 4 TSH 6.57 H Urine Color Yellow Urine Clarity Clear Urine pH 6.5 Ur Specific [place] 1.010 Urine Protein 30 H Urine Glucose (UA) Normal Urine Ketones Negative Urine Occult Blood Negative Urine Nitrite Negative Urine Bilirubin Negative Urine Urobilinogen Normal Ur Leukocyte Esterase Negative Urine RBC 0 SEEN Urine WBC 0 SEEN Ur Squamous Epith Cells 0 SEEN Urine Bacteria 0 SEEN Urine Mucus 0 SEEN Radiography Diagnostic Testing: Clinical Impression(s) from Imaging Studies Chest X-Ray 03/31/21 00:40 IMPRESSION: No acute disease. Electronically Signed: Hever Mccarthy MD at 1:07 EST Tel , Service support , Discharge Plan Triage Chief Complaint: Syncope ED Provider: Hever Sorto Dx/Rx/DC Orders Clinical Impression: Syncope Instructions: Causes of Syncope Prescriptions: No Action amitriptyline 75 MG tablet 75 mg PO QHS RF: 0 triamterene-hydrochlorothiazid [Maxzide-25mg] 1 EACH tablet 1 tab PO DAILY RF: 0 aspirin 81 MG tablet,chewable 81 mg PO DAILY@0800 RF: 0 calcium carbonate-vitamin D3 1 EACH tablet 600 mg PO DINNER RF: 0 ropinirole 0.5 MG tablet 3 mg PO DINNER RF: 0 pravastatin 20 MG tablet 20 mg PO QHS RF: 0 omega-3 fatty acids-fish oil 1 EACH capsule 1 ea PO DAILY RF: 0 lisinopril 20 mg Tablet 20 mg PO DAILY RF: 0 pregabalin [Lyrica] 75 mg Capsule 75 mg PO DAILY RF: 0 Primary Care Provider: Juan Hassan Referrals: Juan Hassan MD [Primary Care Provider] - Disposition Disposition: Home, Self Care
[2021-03-31 02:25] VITALS: BP 105/55; PULSE 65; RESP 16; O2SAT 97
== END 2021-03-31 02:26 | disposition home or self-care (01) ==
PROVIDERS: Emergency Provider Emergency Medicine; PCP Family Medicine; Visit Provider Emergency Medicine
DX: R55 Syncope and collapse (principal); Z79.899 Other long term (current) drug therapy; Z79.82 Long term (current) use of aspirin
CPT/HCPCS: 71045; 80048; 81001; 83735; 84443; 84484; 85025; 93005; 96360; 99285; J7030; A4216

== ENCOUNTER 2023-11-13 18:50 | Inpatient (IN) | payer MEDICARE, OTHER, SELFPAY ==
[2023-11-13] VITALS (7 sets, daily range): BP systolic 83–115; BP diastolic 47–85; PULSE 74–81; RESP 12–25; TEMP 36.4–36.7; O2SAT 87–98; BMI 28.6
--- NOTE | 2023-11-13 19:20 | CT_ITS ---
STUDY: CT BRAIN WITHOUT CONTRAST REASON FOR EXAM: Female, 82 years old. syncope RADIATION DOSAGE (If Supplied By Facility): CTDIvol = ( 44.99 ) mGy, DLP = ( 762.36 ) mGycm TECHNIQUE: Transaxial CT imaging of the brain was performed without administration of intravenous contrast material. Individualized dose optimization techniques were used for this CT. COMPARISON: No relevant priors. FINDINGS: Normal soft tissue structures. Normal calvarium. Calcific plaquing cavernous carotids Mild atrophy periventricular white matter ischemic changes . Normal basal ganglia and thalami. Normal brainstem. Normal cerebellum. Empty sella deformity of uncertain significance. There is no intracranial hemorrhage. There are no findings of an acute ischemic infarction. Normal visualized paranasal sinuses. Postsurgical changes of the orbits. CT/Brain/Head without Contrast IMPRESSION: Mild atrophy and periventricular white matter ischemic change. No acute bleed. If concern for acute infarct MRI recommended Electronically Signed: Juan Galan MD at 20:38 EDT ,
--- NOTE | 2023-11-13 19:20 | EKG12_ITS ---
Test Reason : HTN Blood Pressure : / mmHG Vent. Rate : 070 BPM Atrial Rate : 070 BPM P-R Int : 188 ms QRS Dur : 092 ms QT Int : 402 ms P-R-T Axes : 063 031 051 degrees QTc Int : 434 ms Normal sinus rhythm Normal ECG Confirmed by YARELIS RANDALL, LOW ([id number]), assistant editor JUSTIN HERNANDEZ ([id number]) on 11/17/2023 8:15:04 AM Referred By: Confirmed By:LOW SANTOYO MD
--- NOTE | 2023-11-13 19:23 | EX.ED.DYSGE1 ---
HPI <BECKI Barragan - Last Filed: 11/13/23 22:02> History of Present Illness Chief Complaint: Hypotension Narrative Narrative: Patient is an 82-year-old female with history of hypertension hyperlipidemia, chronic back pain that radiates to her leg who does have 1 rum and coke per night presenting to the emergency department after a syncopal episode while sitting. Per the patient family, patient was finished with eating, patient did have her normal 1 rum and coke. Patient was sitting across on a chair and had a syncopal episode. Per the family, patient was not very responsive for almost 20 minutes. Once EMS got there, the patient still did not come around. Patient's blood pressure was low in the 60s and 70s systolic on the way here. Patient is awake now, states he feels better however is just tired. She denies any fevers or chills. She does state to have some dysuria. PFSH <BECKI Barragan - Last Filed: 11/13/23 22:02> [facility] Medical History Chronic anemia HLD (hyperlipidemia) HTN (hypertension) Back pain with radiculopathy Anxiety and depression RLS (restless legs syndrome) BPPV (benign paroxysmal positional vertigo) Home Medications ?Medication ?Instructions ?Recorded ?Last Taken ?Type amitriptyline 75 mg tablet 75 mg PO QHS sleep 02/26/13 12/04/19 History aspirin 81 mg chewable tablet 81 mg PO DAILY@0800 heart health 02/26/13 12/05/19 History calcium carbonate 600 mg-vitamin 600 mg PO DINNER supplement 02/26/13 12/04/19 History D3 20 mcg (800 unit) tablet triamterene 37.5 1 tab PO DAILY diuretic 02/26/13 12/05/19 History mg-hydrochlorothiazide 25 mg tablet (Maxzide-25mg) omega-3 fatty acids-fish oil 300 1 ea PO DAILY supplement 12/05/19 12/05/19 History mg-1,000 mg capsule pravastatin 20 mg tablet 20 mg PO QHS cholesterol 12/05/19 12/04/19 History ropinirole 0.5 mg tablet 3 mg PO DINNER restless legs 12/05/19 12/04/19 History lisinopril 20 mg tablet 20 mg PO DAILY 03/31/21 Unknown History pregabalin 75 mg capsule (Lyrica) 75 mg PO DAILY 03/31/21 Unknown History potassium chloride 20 mEq 20 meq PO BID 11/13/23 Unknown History tablet,extended release spironolactone 50 mg tablet 50 mg PO DAILY 11/13/23 Unknown History Allergy/AdvReac Type Severity Reaction Status Date / Time Sulfa (Sulfonamide Allergy Swelling Verified 03/30/21 23:58 Antibiotics) acetaminophen (From Vicodin) AdvReac Vomiting Verified 03/30/21 23:58 hydrocodone bitartrate (From AdvReac Vomiting Verified 03/30/21 23:58 Vicodin) promethazine HCl (From AdvReac Vomiting Verified 03/30/21 23:58 Phenergan) Family History Mother Heart disease Father Heart disease Surgical History S/P cholecystectomy Social History household members: spouse Smoking Status: Never smoker alcohol intake: never substance use type: does not use ROS <BECKI Barragan - Last Filed: 11/13/23 22:02> ROS ED ROS Narrative Constitutional: Negative for fever, chills, weight loss. Positive for weakness Eyes: Negative for vision loss, vision change, double vision ENT: Negative for any sore throat, ear pain, congestion Cardiovascular: Negative for any chest pain, tightness, palpitations Respiratory: Negative for any cough, sputum production, hemoptysis, dyspnea, dyspnea on exertion, orthopnea Gastrointestinal: Negative for any abdominal pain, nausea, vomiting, diarrhea, constipation, blood in stool, blood in vomit : Negative for any urinary frequency, dysuria, retention, blood in urine Muscle skeletal: Negative for any neck pain, back pain Neurological: Negative for any headache, dizziness. Positive for syncope Skin: Negative for any rashes, itching, abrasions, lacerations Psychiatric: Negative for any depression, anxiety, stress, suicidal ideation, homicidal ideation Hematologic: Negative for any excessive bruising, easy bleeding EXAM <BECKI Barragan - Last Filed: 11/13/23 22:02> Physical Exam Narrative Exam Narrative: Vital signs reviewed. Patient on my evaluation had a blood pressure of 92/52. Patient was alert and orient x 4. Patient was slightly forgetful however per the daughter and the patient is acting almost baseline. HEET: Head normocephalic atraumatic, TMs clear bilaterally. Posterior pharynx is clear, dry mucous membranes. Nares clear bilaterally. Neck: Supple with no lymphadenopathy or tenderness. No signs of meningismus. Cardiac: Regular rate and rhythm systolic murmur, no gallops or rubs, equal peripheral pulses bilaterally. Respiratory: Lungs clear to auscultation bilaterally. No chest tenderness. Abdomen: Soft, nontender, nondistended. No abdominal bruit or pulsatile masses. No hepatosplenomegaly Extremities: No peripheral edema, no signs of gross trauma or deformity. Active full range of motion of all extremities. Neuro: Cranial nerves II through XII intact, no focal neurological deficits. Skin: Clean dry and intact with no rash, purpura, petechiae, vesicles or pustules. Backs/flank: No CVA tenderness, no midline spinal tenderness, no deformity. Psych: Normal mood and affect. No SI, HI or acute psychosis. Const Vital Signs: 11/13/23 18:52 11/13/23 18:57 11/13/23 19:00 Temperature 97.8 F 97.7 F L Temperature Source Oral Oral Pulse Rate 75 75 Respiratory Rate 18 12 Respiratory Effort Normal Respiratory Pattern Normal Blood Pressure 83/48 L 84/47 L Blood Pressure Mean 59 59 Pulse Ox 91 87 Oxygen Delivery Method Room Air Room Air Oxygen Flow Rate (L/min) 11/13/23 19:57 11/13/23 20:00 11/13/23 20:07 Temperature 97.5 F L 97.8 F Temperature Source Oral Oral Pulse Rate 74 78 Respiratory Rate 19 H 25 H Respiratory Effort Respiratory Pattern Blood Pressure 115/85 H 104/67 Blood Pressure Mean 95 79 Pulse Ox 94 96 Oxygen Delivery Method Room Air Room Air Room Air Oxygen Flow Rate (L/min) 11/13/23 21:00 Temperature 98 F Temperature Source Oral Pulse Rate 81 Respiratory Rate 22 H Respiratory Effort Respiratory Pattern Blood Pressure 103/75 Blood Pressure Mean 84 Pulse Ox 96 Oxygen Delivery Method Nasal Cannula Oxygen Flow Rate (L/min) 2 Positive well nourished and well developed General Appearance ED: well developed <Dr. Tomer Squirrel [place], DO - Last Filed: 11/13/23 23:47> Physical Exam Const Vital Signs: 11/13/23 18:52 11/13/23 18:57 11/13/23 19:00 Temperature 97.8 F 97.7 F L Temperature Source Oral Oral Pulse Rate 75 75 Respiratory Rate 18 12 Respiratory Effort Normal Respiratory Pattern Normal Blood Pressure 83/48 L 84/47 L Blood Pressure Mean 59 59 Pulse Ox 91 87 Oxygen Delivery Method Room Air Room Air Oxygen Flow Rate (L/min) 11/13/23 19:57 11/13/23 20:00 11/13/23 20:07 Temperature 97.5 F L 97.8 F Temperature Source Oral Oral Pulse Rate 74 78 Respiratory Rate 19 H 25 H Respiratory Effort Respiratory Pattern Blood Pressure 115/85 H 104/67 Blood Pressure Mean 95 79 Pulse Ox 94 96 Oxygen Delivery Method Room Air Room Air Room Air Oxygen Flow Rate (L/min) 11/13/23 21:00 Temperature 98 F Temperature Source Oral Pulse Rate 81 Respiratory Rate 22 H Respiratory Effort Respiratory Pattern Blood Pressure 103/75 Blood Pressure Mean 84 Pulse Ox 96 Oxygen Delivery Method Nasal Cannula Oxygen Flow Rate (L/min) 2 MDM <BECKI Barragan - Last Filed: 11/13/23 22:02> MDM Lab Data Labs: Laboratory Results - last 24 hr 11/13/23 11/13/23 11/13/23 19:05 19:41 20:49 WBC 6.5 RBC 2.48 L Hgb 7.3 L Hct 23.4 L MCV 94.4 MCH 29.4 MCHC 31.2 L RDW Std Deviation 44.1 H RDW Coeff of Bailee 12.8 Plt Count 211 MPV 9.2 Immature Gran % (Auto) 0.500 Neut % (Auto) 59.1 Lymph % (Auto) 30.9 [place] % (Auto) 8.1 Eos % (Auto) 1.1 Baso % (Auto) 0.3 Absolute Neuts (auto) 3.9 Absolute Lymphs (auto) 2.02 Nucleated RBC % 0 D-Dimer Quant (PE/DVT) 5.35 H* Sodium 143 Potassium 2.7 L* Chloride 123 H Carbon Dioxide 13.0 L Anion Gap 7 BUN 15 Creatinine 0.70 Estim Creat Clear Calc 50.04 Est GFR (MDRD) Af Amer 103 Est GFR (MDRD) Non-Af 85 BUN/Creatinine Ratio 21.4 H Glucose 71 L Lactic Acid 2.0 Calcium 5.6 L* Phosphorus 2.1 L Magnesium 1.0 L Total Bilirubin 0.20 Direct Bilirubin 0.09 AST 10 L ALT 8 L Alkaline Phosphatase < 10 L Troponin I High Sens 4 B-Natriuretic Peptide 41.9 Total Protein 4.5 L Albumin 2.0 L Globulin 2.5 Ethyl Alcohol 22.0 Antibody Screen NEGATIVE ABG Data ABG results: ABG 11/13/23 20:50 Specimen Type ART Sample Site R Radial pH 7.34 L Bicarbonate Actual 17.6 L Total CO2 19 Base Excess -8 L O2 Saturation 99 O2 % 3.0 ABG pCO2 32.5 L ABG pO2 122 H Cole Test Positive O2 Delivery Device Cannula Vent Mode Not entered Radiography Diagnostic Testing: Clinical Impression(s) from Imaging Studies Brain CT 11/13/23 19:20 IMPRESSION: Mild atrophy and periventricular white matter ischemic change. No acute bleed. If concern for acute infarct MRI recommended Electronically Signed: Juan Galan MD at 20:38 EDT , Chest X-Ray 11/13/23 19:30 IMPRESSION: No acute cardiopulmonary pathology Electronically Signed: Juan Galan MD at 20:45 EDT , Abdomen/Pelvis CT 11/13/23 20:15 IMPRESSION: Narrowed colonic segment at the level of the distal descending and sigmoid of uncertain clinical significance possibly due to chronic stricture due to inflammatory bowel disease. No evidence for small bowel obstruction Incidental finding of fluid in the cul-de-sac of uncertain etiology and clinical significance Multiple other findings as above Electronically Signed: Juan Galan MD at 21:31 EDT , Chest CTA 11/13/23 20:15 IMPRESSION: Mild bibasilar interstitial thickening and atelectasis within the dependent portion of the lower lobes. Old granulomatous disease on the right. No evidence for pulmonary embolus Electronically Signed: Juan Galan MD at 21:20 EDT , EKG Normal sinus rhythm: Attestation: I personally reviewed and interpreted this EKG as follows: Comments: Normal sinus rhythm, rate of 70 bpm, MI interval 188 ms, QRS duration 92 ms, no acute ST elevation, no acute infarct noted. Treatment and Re-Evaluation :: Differential diagnosis includes however is not limited to: PE, ACS, AK, seizure, brain mass, UTI, electrolyte abnormality, dehydration, alcohol intoxication Patient appears to be in no obvious respiratory distress on my initial evaluation, patient's vital signs show hypotension, patient still on oxygen however the patient's monitor is not reading appropriately. Patient EKG was unremarkable. Presenting to the emergency department after a syncopal episode while sitting, and not coming back to baseline for an extended period. Patient will receive a full cardiac workup including chest x-ray, rule out PE. Patient received 1 L of normal saline. Alcohol level will be obtained secondary to patient having history of drinking. All radiologic examinations were read, reviewed by the emergency department attending. From these reads, a plan of care will be put in place. Patient's blood pressure after IV fluids. Patient's CBC does show an acute anemia with a hemoglobin of 7.3, earlier in the month of October, the patient had a hemoglobin 10.4, this is a significant drop. Patient's chemistry panel has a hypokalemia with a potassium of 2.7. Patient will be given 20 mill equivalents IV as well as 40 p.o., carbon oxide is 13, calcium was 5.6 with a magnesium of 1. IV magnesium will also be ordered. Troponin was negative. BNP was negative. Alcohol level was 22. Secondary to the anemia, I did perform a rectal exam. There was no muna red bleeding, is no external/internal hemorrhoids. Stool was light brown. The sample was sent to the lab. Patient's stool occult was negative. Patient's brain CT scan showed mild atrophy and periventricular white matter ischemic change. No acute bleed. CTA of the chest showed mild bibasilar interstitial thickening old granulomatous disease on the right no evidence of pulmonary embolus. Patient's abdominal pelvis CT showed narrowed colonic segment to the level of distal descending and sigmoid of uncertain clinical significance possibly due to chronic stricture due to inflammatory bowel disease. No evidence of small bowel obstruction. Patient on reevaluation was unchanged. Patient will need to be admitted to the hospital for syncope, multiple electrolyte abnormalities. <Dr. Tomer Ortiz, DO - Last Filed: 11/13/23 23:47> [facility] History & Record Review Discussion w/independent historian: Patient and Family Lab Data Attestation: I reviewed the patient's lab results. Labs: Laboratory Results - last 24 hr 11/13/23 11/13/23 11/13/23 19:05 19:41 20:49 WBC 6.5 RBC 2.48 L Hgb 7.3 L Hct 23.4 L MCV 94.4 MCH 29.4 MCHC 31.2 L RDW Std Deviation 44.1 H RDW Coeff of Bailee 12.8 Plt Count 211 MPV 9.2 Immature Gran % (Auto) 0.500 Neut % (Auto) 59.1 Lymph % (Auto) 30.9 [place] % (Auto) 8.1 Eos % (Auto) 1.1 Baso % (Auto) 0.3 Absolute Neuts (auto) 3.9 Absolute Lymphs (auto) 2.02 Nucleated RBC % 0 D-Dimer Quant (PE/DVT) 5.35 H* Sodium 143 Potassium 2.7 L* Chloride 123 H Carbon Dioxide 13.0 L Anion Gap 7 BUN 15 Creatinine 0.70 Estim Creat Clear Calc 50.04 Est GFR (MDRD) Af Amer 103 Est GFR (MDRD) Non-Af 85 BUN/Creatinine Ratio 21.4 H Glucose 71 L Lactic Acid 2.0 Calcium 5.6 L* Phosphorus 2.1 L Magnesium 1.0 L Total Bilirubin 0.20 Direct Bilirubin 0.09 AST 10 L ALT 8 L Alkaline Phosphatase < 10 L Troponin I High Sens 4 B-Natriuretic Peptide 41.9 Total Protein 4.5 L Albumin 2.0 L Globulin 2.5 Ethyl Alcohol 22.0 Antibody Screen NEGATIVE ABG Data ABG results: ABG 11/13/23 20:50 Specimen Type ART Sample Site R Radial pH 7.34 L Bicarbonate Actual 17.6 L Total CO2 19 Base Excess -8 L O2 Saturation 99 O2 % 3.0 ABG pCO2 32.5 L ABG pO2 122 H Cole Test Positive O2 Delivery Device Cannula Vent Mode Not entered Radiography Diagnostic Testing: Clinical Impression(s) from Imaging Studies Brain CT 11/13/23 19:20 IMPRESSION: Mild atrophy and periventricular white matter ischemic change. No acute bleed. If concern for acute infarct MRI recommended Electronically Signed: Juan Galan MD at 20:38 EDT , Chest X-Ray 11/13/23 19:30 IMPRESSION: No acute cardiopulmonary pathology Electronically Signed: Juan Galan MD at 20:45 EDT , Abdomen/Pelvis CT 11/13/23 20:15 IMPRESSION: Narrowed colonic segment at the level of the distal descending and sigmoid of uncertain clinical significance possibly due to chronic stricture due to inflammatory bowel disease. No evidence for small bowel obstruction Incidental finding of fluid in the cul-de-sac of uncertain etiology and clinical significance Multiple other findings as above Electronically Signed: Juan Galan MD at 21:31 EDT , Chest CTA 11/13/23 20:15 IMPRESSION: Mild bibasilar interstitial thickening and atelectasis within the dependent portion of the lower lobes. Old granulomatous disease on the right. No evidence for pulmonary embolus Electronically Signed: Juan Galan MD at 21:20 EDT , Treatment and Re-Evaluation :: Differential diagnosis includes however is not limited to: PE, ACS, AK, seizure, brain mass, UTI, electrolyte abnormality, dehydration, alcohol intoxication Patient appears to be in no obvious respiratory distress on my initial evaluation, patient's vital signs show hypotension, patient still on oxygen however the patient's monitor is not reading appropriately. Patient EKG was unremarkable. Presenting to the emergency department after a syncopal episode while sitting, and not coming back to baseline for an extended period. Patient will receive a full cardiac workup including chest x-ray, rule out PE. Patient received 1 L of normal saline. Alcohol level will be obtained secondary to patient having history of drinking. All radiologic examinations were read, reviewed by the emergency department attending. From these reads, a plan of care will be put in place. Patient's blood pressure after IV fluids. Patient's CBC does show an acute anemia with a hemoglobin of 7.3, earlier in the month of October, the patient had a hemoglobin 10.4, this is a significant drop. Patient's chemistry panel has a hypokalemia with a potassium of 2.7. Patient will be given 20 mill equivalents IV as well as 40 p.o., carbon oxide is 13, calcium was 5.6 with a magnesium of 1. IV magnesium will also be ordered. Troponin was negative. BNP was negative. Alcohol level was 22. Secondary to the anemia, I did perform a rectal exam. There was no muna red bleeding, is no external/internal hemorrhoids. Stool was light brown. The sample was sent to the lab. Patient's stool occult was negative. Patient's brain CT scan showed mild atrophy and periventricular white matter ischemic change. No acute bleed. CTA of the chest showed mild bibasilar interstitial thickening old granulomatous disease on the right no evidence of pulmonary embolus. Patient's abdominal pelvis CT showed narrowed colonic segment to the level of distal descending and sigmoid of uncertain clinical significance possibly due to chronic stricture due to inflammatory bowel disease. No evidence of small bowel obstruction. Patient on reevaluation was unchanged. Patient will need to be admitted to the hospital for syncope, multiple electrolyte abnormalities. I have personally performed a face to face assessment of the patient and have reviewed the ALEX Note. I performed a substantive portion of the visit including all aspects of the following. My aviles findings include: History is 82-year-old female with syncopal episode at home was found to have prolonged hypotension. She had recent [facility] which the family provides me using the [employer] alex. Patient states she currently feels fine has no current complaints. Exam is heart regular without murmur lung sounds are clear and equal. GCS is 15. She has normal distal perfusion. The abdomen soft nontender. Medical Decison Making there is a new anemia that is about 3 g lower than what it was on 31 October. She is found to have hypokalemia and hypomagnesemia. Hypocalcemia was also detected. Alcohol level is 22 but the patient does typically have a drink in the evenings. There was concern expressed by family that the patient may have intoxication. Her rectal exam is negative for blood. D-dimer is elevated and a CTA does not demonstrate any obvious pulmonary embolism. CTA of the abdomen does not show any acute bleeding. Plan is admission to the hospital Discharge Plan Dx/Rx/DC Orders Clinical Impression: Syncope and collapse, Acute hypokalemia, Hypomagnesemia, Anemia, Hypocalcemia, Hypotension Disposition Disposition: Acute Care Hospital [facility]
--- NOTE | 2023-11-13 19:30 | RAD_ITS ---
STUDY: X-RAY CHEST REASON FOR EXAM: Female, 82 years old. chest pain TECHNIQUE: AP portable COMPARISON: None. FINDINGS: The lungs are clear and expanded. There is no demonstrated pleural abnormality. Normal size heart. Normal mediastinum and fred. Normal visualized pulmonary arteries. Normal visualized aortic arch and descending thoracic aorta. Degenerative changes of the thoracic spine and shoulders. Normal visualized ribs, and clavicles.. There is no demonstrated abnormality of the visualized soft tissue structures of the upper abdomen. RAD/Chest 1 View (Portable) IMPRESSION: No acute cardiopulmonary pathology Electronically Signed: Juan Galan MD at 20:45 EDT ,
[2023-11-13] MEDS: 0.9% Normal Saline (1000mL) 1,000 ML 999 ML IV (19:41)
[2023-11-13 19:49] LABS: Absolute Lymphocyte Count 2.02 X10^3/uL (0.83-4.51); Absolute Neutrophil Count 3.9 X10^3/uL (2.0-7.7); Basophil# 0.02 X10^3/uL; Basophil% 0.3 % (0-1); Eosinophil# 0.07 X10^3/uL; Eosinophils% 1.1 % (0-5); Hematocrit 23.4 % (37-47); Hemoglobin 7.3 g/dL (12.0-15.0); Lymphocyte # 2.02 X10^3/ul (0.83-4.51); Lymphocyte % 30.9 % (19-41); Mean Corp Hgb Conc 31.2 g/dL (32-36); Mean Corpuscular Hgb 29.4 pg (27.0-32.0); Mean Corpuscular Volume 94.4 fL (81-99); Mean Platelet Vol. 9.2 fl (6.2-12.0); Monocyte# 0.53 X10^3/uL; Monocyte% 8.1 % (0-10); NRBC Flagged by Analyzer 0 % (0-5); Neutrophil # 3.87 X10^3/uL (2.7-7.7); Neutrophil % 59.1 % (47-70); Platelet Count 211 K/mm3 (150-450); RBC Distribution Width CV 12.8 % (11.6-14.6); RBC Distribution Width SD 44.1 fl (35.1-43.9); Red Blood Count 2.48 M/mm3 (4.2-5.4); White Blood Count 6.5 K/mm3 (4.4-11.0)
[2023-11-13 20:10] LABS: BNP,B-Type NATRIURETIC PEPTIDE 41.9 pg/mL (0-100)
[2023-11-13 20:11] LABS: D-Dimer Quantitative (DVT/PE) 5.35 FEU/ug/m (0.27-0.49)
--- NOTE | 2023-11-13 20:15 | CT_ITS ---
STUDY: CT ABDOMEN AND PELVIS WITH CONTRAST REASON FOR EXAM: Female, 82 years old. abdominal pain RADIATION DOSAGE (If Supplied By Facility): CTDIvol = ( 14.76 ) mGy, DLP = ( 1308.35 ) mGycm TECHNIQUE: Transaxial images were obtained from the dome of the diaphragm to the symphysis pubis without oral contrast. IV 75mL Isovue-370 was administered. Sagittal and coronal images were reconstructed. Individualized dose optimization techniques were used for this CT. COMPARISON: None. FINDINGS: Minor bibasilar interstitial thickening and atelectasis.... The visualized portions of the heart are within normal limits. Normal liver. Gallbladder not visualized status post cholecystectomy. Normal spleen. Diffusely atrophic pancreas Normal bilateral adrenal glands. Normal right kidney. Normal left kidney. Normal visualized stomach. Normal small intestine. There is a narrowed segment of the colon at the junction of the distal descending and sigmoid which appears collapsed distally without inflammatory changes in the adjacent fat. Cannot exclude chronic inflammatory bowel stricture versus neoplasm which is less likely.. No evidence for acute appendicitis Atherosclerotic changes of the aorta without evidence for aneurysm. Normal inferior vena cava. Normal retroperitoneum. Normal urinary bladder. There is mild to moderate free fluid in the cul-de-sac There is a hernia in the left posterior abdominal wall containing fat There is a lipomatous mass within the right gluteal muscle. Lumbar spine demonstrates degenerative change. Grade 1 spondylolisthesis at L4-5 There are postsurgical changes status post bilateral laminectomy posterior fusion at L4-5 CT/Abdomen/Pelvis W IV Cont ONLY IMPRESSION: Narrowed colonic segment at the level of the distal descending and sigmoid of uncertain clinical significance possibly due to chronic stricture due to inflammatory bowel disease. No evidence for small bowel obstruction Incidental finding of fluid in the cul-de-sac of uncertain etiology and clinical significance Multiple other findings as above Electronically Signed: Juan Galan MD at 21:31 EDT ,
--- NOTE | 2023-11-13 20:15 | CT_ITS ---
STUDY: CTA CHEST REASON FOR EXAM: Female, 82 years old. elevated Dimer RADIATION DOSAGE (If Supplied By Facility): CTDIvol = ( 14.76 ) mGy, DLP = ( 1308.35 ) mGycm TECHNIQUE: The examination was performed with the intravenous administration of IV 75mL Isovue-370. Post-processing of the angiographic images was performed, with multiplanar reformation and 3D reconstruction. Individualized dose optimization techniques were used for this CT. COMPARISON: None. FINDINGS: Normal enhancement of the main pulmonary artery and right and left pulmonary arteries. Normal enhancement of the bilateral peripheral pulmonary arteries. There is no demonstrated pulmonary embolism. Minor atherosclerotic change of the aorta without evidence for aneurysm There is no demonstrated aortic dissection. Normal heart and pericardium. Tiny calcified right hilar and mediastinal nodes. Normal visualized trachea and bronchi. The lungs are well expanded. Calcific granuloma in the right lower lobe Mild interstitial thickening and atelectasis within the dependent portion of the lower lobes Normal pleura. Normal chest wall structures. Dorsal spine demonstrates degenerative change Postsurgical changes status post cholecystectomy. CT/CTA Chest W/WO Contrast IMPRESSION: Mild bibasilar interstitial thickening and atelectasis within the dependent portion of the lower lobes. Old granulomatous disease on the right. No evidence for pulmonary embolus Electronically Signed: Juan Galan MD at 21:20 EDT ,
[2023-11-13 20:21] LABS: Anion Gap 7 (5-15); BUN 15 mg/dL (7-18); BUN/Creat Ratio 21.4 RATIO (10-20); Calcium,Total 5.6 mg/dL (8.5-10.1); Chloride 123 mmol/L (98-107); EST Glomerular Filtration Rate 85 mL/min (>60); Est Glom Filt Rate - Afr Amer 103 mL/min (>60); Estimated Creatinine Clearance 50.04 ml/min; Glucose 71 mg/dL (74-106); Potassium 2.7 mmol/L (3.5-5.1); Sodium Level 143 mmol/L (136-145); Troponin-I HS (w/2H Reflex) 4 pg/mL (3.0-54.0)
[2023-11-13 20:54] LABS: Allen Test Positive; Base Excess -8 mmol/L (-2 to +2); Bicarbonate 17.6 mmol/L (22-26); Blood Gas Specimen Type ART; Mode Not entered; O2 Delivery Device Cannula; PO2 122 mmHG (75-100); SITE R Radial; SO2 99 % (95-99); Total Carbon Dioxide 19 mmol/L; pCO2 32.5 mmHg (35-45); pH 7.34 (7.35-7.45)
[2023-11-13] MEDS: Potassium Chloride 10mEq/100mL 10 MEQ/100 ML IV.SOLN. 100 MEQ IV BOLUS ×2 (20:55→22:45)
[2023-11-13] MEDS: Potassium Chloride Oral Tablet 20 MEQ 40 MEQ PO (20:56)
[2023-11-13] MEDS: Magnesium Sulfate 2 GM in Dextrose 5%-Water (100mL Bag) 100 ML IV (20:56)
[2023-11-13 21:04] LABS: Ionized Calcium Order 4.83
[2023-11-13 21:06] LABS: AST(SGOT) 10 U/L (15-37); Alanine Aminotransfer ALT/SGPT 8 U/L (13-56); Alkaline Phosphatase < 10 U/L (45-117); Bilirubin, Direct 0.09 mg/dL (0.00-0.30); Globulin 2.5 g/dL (2.2-4.2); Protein, Total 4.5 g/dL (6.4-8.2)
--- NOTE | 2023-11-13 21:43 | PCM.HP.STD ---
HPI - General General Date of Admission: 11/13/23 Date of Service: 11/13/23 Chief Complaint: Syncopal event. HPI Narrative The patient is an 82 y/o F w/ PMHx: Chronic anemia, RLS, HLD, HTN, Hx BPPV s/p prior R sided myringotomy, Anxiety and Depression, Chronic back pain with radiculopathy who presents to the [facility] ED on 11/13/23 with history of syncopal event reportedly while sitting per her family noted to be finishing dinner with intake of a rum and coke with sudden syncopal event minimally responsive for approximately 20 minutes prompting EMS call with blood pressure decreased with systolic in the 60s to 70s per EMS prompting transition to the ED for evaluation with improvement in mental status on route with patient reporting mild recent dysuria but no other marked recent symptoms including no fevers or chills. She does admit to having 1 similar remote episode of syncope. She notes over the last 2 days she has had increased fatigue and malaise as well as decreased appetite. Workup in the ED included T97.8, heart 75, BP initially 83/48, respiratory rate 18, 91% on room air desaturating down to 87% on room air, CBC with WBC 6.5, hemoglobin 7.3, MCV 94.4, platelet 211 without marked shift, D-dimer 5.35, ABG with pH 7.34, pCO2 32.5, pO2 122, BMP with potassium 2.7, chloride 123, carbon oxide 13, glucose 71, calcium 5.6, ethyl alcohol 22, guaiac stool negative, troponin 4, BNP 41.9, magnesium 1.0, chest x-ray with no acute cardiopulmonary finding, CT brain with mild atrophy and periventricular white matter ischemic changes with no acute intracranial findings, CTA chest/abdomen/pelvis with mild bibasilar interstitial thickening and atelectasis with the dependent portion of the lower lobes, old granulomatous disease on the right with no evidence of any PE or marked cardiopulmonary process, EKG with sinus rhythm with no acute evidence of ischemia, urinalysis ordered per ED but not yet obtained upon evaluation of patient. In the ED patient administered potassium 40 mill: P.o. x 1 as well as 20 mill equivalent IV, magnesium 2 g IV, calcium gluconate 1 g IV push x 1, as well as 1 L normal saline. [facility] Medical History Chronic anemia HLD (hyperlipidemia) HTN (hypertension) Back pain with radiculopathy Anxiety and depression RLS (restless legs syndrome) BPPV (benign paroxysmal positional vertigo) Home Medications ?Medication ?Instructions ?Recorded ?Last Taken ?Type amitriptyline 75 mg tablet 75 mg PO QHS sleep 02/26/13 12/04/19 History aspirin 81 mg chewable tablet 81 mg PO DAILY@0800 heart health 02/26/13 12/05/19 History calcium carbonate 600 mg-vitamin 600 mg PO DINNER supplement 02/26/13 12/04/19 History D3 20 mcg (800 unit) tablet triamterene 37.5 1 tab PO DAILY diuretic 02/26/13 12/05/19 History mg-hydrochlorothiazide 25 mg tablet (Maxzide-25mg) omega-3 fatty acids-fish oil 300 1 ea PO DAILY supplement 12/05/19 12/05/19 History mg-1,000 mg capsule pravastatin 20 mg tablet 20 mg PO QHS cholesterol 12/05/19 12/04/19 History ropinirole 0.5 mg tablet 3 mg PO DINNER restless legs 12/05/19 12/04/19 History lisinopril 20 mg tablet 20 mg PO DAILY 03/31/21 Unknown History pregabalin 75 mg capsule (Lyrica) 75 mg PO DAILY 03/31/21 Unknown History Allergy/AdvReac Type Severity Reaction Status Date / Time Sulfa (Sulfonamide Allergy Swelling Verified 03/30/21 23:58 Antibiotics) acetaminophen (From Vicodin) AdvReac Vomiting Verified 03/30/21 23:58 hydrocodone bitartrate (From AdvReac Vomiting Verified 03/30/21 23:58 Vicodin) promethazine HCl (From AdvReac Vomiting Verified 03/30/21 23:58 Phenergan) Family History Mother Heart disease Father Heart disease Surgical History S/P cholecystectomy Social History household members: spouse Smoking Status: Never smoker alcohol intake: never substance use type: does not use ROS ROS Narrative Admission Review of Systems: CONSTITUTIONAL: No weight loss, fever, chills, + weakness or fatigue. HEENT: Eyes: No visual loss, blurred vision, double vision or yellow sclerae. Ears, Nose, Throat: No hearing loss, sneezing, congestion, runny nose or sore throat. SKIN: No rash or itching, lesions, wounds except + occasional staged ecchymoses, abrasions especially to distal extremities. CARDIOVASCULAR: + Syncopal event, chronic mild edema. No chest pain, chest pressure or chest discomfort, palpitations, orthopnea. RESPIRATORY: No shortness of breath, cough or sputum, wheezing, hemoptysis. GASTROINTESTINAL: + Decreased appetite for the last 2 days. No nausea, vomiting or diarrhea, abdominal pain, melena, BRBPR. GENITOURINARY: + Recent dysuria history, chronic frequency. No urgency or retention. NEUROLOGICAL: + Syncopal event. No headache, dizziness, paralysis, ataxia, numbness or tingling in the extremities, focal weakness, change in bowel or bladder control, seizure. MUSCULOSKELETAL: + muscle, back pain, joint pain or stiffness. HEMATOLOGIC: + Chronic anemia, easy bleeding/bruising. LYMPHATICS: No enlarged nodes. No history of splenectomy. PSYCHIATRIC: + History of anxiety and depression. ENDOCRINOLOGIC: No reports of sweating, cold or heat intolerance. No polyuria or polydipsia. ALLERGIES: No history of asthma, hives, eczema or rhinitis. Vital Signs Vital Signs Vital Signs: 11/13/23 18:52 11/13/23 18:57 11/13/23 19:00 Temperature 97.8 F 97.7 F L Temperature Source Oral Oral Pulse Rate 75 75 Respiratory Rate 18 12 Respiratory Effort Normal Respiratory Pattern Normal Blood Pressure 83/48 L 84/47 L Blood Pressure Mean 59 59 Pulse Ox 91 87 Oxygen Delivery Method Room Air Room Air Oxygen Flow Rate (L/min) 11/13/23 19:57 11/13/23 20:00 11/13/23 20:07 Temperature 97.5 F L 97.8 F Temperature Source Oral Oral Pulse Rate 74 78 Respiratory Rate 19 H 25 H Respiratory Effort Respiratory Pattern Blood Pressure 115/85 H 104/67 Blood Pressure Mean 95 79 Pulse Ox 94 96 Oxygen Delivery Method Room Air Room Air Room Air Oxygen Flow Rate (L/min) 11/13/23 21:00 Temperature 98 F Temperature Source Oral Pulse Rate 81 Respiratory Rate 22 H Respiratory Effort Respiratory Pattern Blood Pressure 103/75 Blood Pressure Mean 84 Pulse Ox 96 Oxygen Delivery Method Nasal Cannula Oxygen Flow Rate (L/min) 2 Weight Weight: 156 lb 8.451 oz Body Mass Index (BMI) 28.6 Physical Exam Narrative Physical Examination: General: Awake, alert, oriented to self, place and recent events, was initially very lethargic and unresponsive but improved upon EMS transition, currently cooperative, seated upright in the ED bed and notes feeling well, denies any prodrome symptoms Skin: Normal color, normal turgor, no icterus, no cyanosis except very stage ecchymoses, abrasions especially to distal extremities HEENT: AT/NC, EOMI, PERRLA, dry MM, no carotid bruits or JVD noted. Lungs: Diminished, greater bases, appropriate effort, no rales, ronchi or wheezing. Heart: Regular rate and rhythm; no gallop, rub audible. Abdomen: Soft, overweight, NTTP, ND, hyper BS, no appreciated HSM. Extremities: No cyanosis, no clubbing, pedal to mid gomez minimally pitting edema, reports chronic component, see skin. Neurological: Patient awake, alert, oriented as noted, cognitive function improving, suspect nearing baseline intact; pupils equally reactive to light and accommodation, cranial nerves grossly normal, moving all 4 extremities, no focal deficits, strength improving, moderately to severely globally decreased Psychiatric: Affect appears fatigued but notes feeling improved, no acute evidence of depressive or anxiety feelings but does have underlying history. Results Lab / Micro Data 11/13/23 19:05 11/13/23 19:05 Labs: Laboratory Results - last 24 hr 11/13/23 19:05: WBC 6.5, RBC 2.48 L, Hgb 7.3 L, Hct 23.4 L, MCV 94.4, MCH 29.4, MCHC 31.2 L, RDW Std Deviation 44.1 H, RDW Coeff of Bailee 12.8, Plt Count 211, MPV 9.2, Immature Gran % (Auto) 0.500, Neut % (Auto) 59.1, Lymph % (Auto) 30.9, [place] % (Auto) 8.1, Eos % (Auto) 1.1, Baso % (Auto) 0.3, Absolute Neuts (auto) 3.9, Absolute Lymphs (auto) 2.02, Nucleated RBC % 0, D-Dimer Quant (PE/DVT) 5.35 H*, Sodium 143, Potassium 2.7 L*, Chloride 123 H, Carbon Dioxide 13.0 L, Anion Gap 7, BUN 15, Creatinine 0.70, Estim Creat Clear Calc 50.04, Est GFR (MDRD) Af Amer 103, Est GFR (MDRD) Non-Af 85, BUN/Creatinine Ratio 21.4 H, Glucose 71 L, Calcium 5.6 L*, Magnesium 1.0 L, Total Bilirubin 0.20, Direct Bilirubin 0.09, AST 10 L, ALT 8 L, Alkaline Phosphatase < 10 L, Troponin I High Sens 4, B-Natriuretic Peptide 41.9, Total Protein 4.5 L, Albumin 2.0 L, Globulin 2.5 11/13/23 19:41: Ethyl Alcohol 22.0 11/13/23 20:49: Lactic Acid 2.0, Antibody Screen NEGATIVE Micro: Microbiology 11/13/23 20:20 Stool Stool Occult Blood (NIDHI) - Final ABG Data ABG results: ABG 11/13/23 20:50 Specimen Type ART Sample Site R Radial pH 7.34 L Bicarbonate Actual 17.6 L Total CO2 19 Base Excess -8 L O2 Saturation 99 O2 % 3.0 ABG pCO2 32.5 L ABG pO2 122 H Cole Test Positive O2 Delivery Device Cannula Vent Mode Not entered Imaging Radiology Impression Brain CT 11/13/23 19:20 IMPRESSION: Mild atrophy and periventricular white matter ischemic change. No acute bleed. If concern for acute infarct MRI recommended Electronically Signed: Juan Galan MD at 20:38 EDT , Chest X-Ray 11/13/23 19:30 IMPRESSION: No acute cardiopulmonary pathology Electronically Signed: Juan Galan MD at 20:45 EDT , Abdomen/Pelvis CT 11/13/23 20:15 IMPRESSION: Narrowed colonic segment at the level of the distal descending and sigmoid of uncertain clinical significance possibly due to chronic stricture due to inflammatory bowel disease. No evidence for small bowel obstruction Incidental finding of fluid in the cul-de-sac of uncertain etiology and clinical significance Multiple other findings as above Electronically Signed: Juan Galan MD at 21:31 EDT , Chest CTA 11/13/23 20:15 IMPRESSION: Mild bibasilar interstitial thickening and atelectasis within the dependent portion of the lower lobes. Old granulomatous disease on the right. No evidence for pulmonary embolus Electronically Signed: Juan Galan MD at 21:20 EDT , Assessment & Plan Assessment/Plan (1) Syncope and collapse: PLAN: Plan The patient is an 82 y/o F w/ PMHx: Chronic anemia, RLS, HLD, HTN, Hx BPPV s/p prior R sided myringotomy, Anxiety and Depression, Chronic back pain with radiculopathy who presents to the [facility] ED on 11/13/23 with history of syncopal event reportedly while sitting per her family noted to be finishing dinner with intake of a rum and coke with sudden syncopal event minimally responsive for approximately 20 minutes prompting EMS call with blood pressure decreased with systolic in the 60s to 70s per EMS prompting transition to the ED for evaluation with improvement in mental status on route with patient reporting mild recent dysuria but no other marked recent symptoms including no fevers or chills. #1. Syncopal Event, unclear etiology but suspect related to hypotensive presentation, potentially also significant electrolyte disturbances as noted: EKG in ED w/ sinus rhythm without evidence of acute ischemia, CXR w/ no acute cardiopulmonary findings, CT head with no acute intracranial findings, CTA chest/abdomen/pelvis with also no acute cardiopulmonary findings, initial trop normal. Will admit to PCU, place on a monitored bed to assure no acute myocardial infarction with serial cardiac enzymes and EKGs. Will maintain on fall precautions, obtain admission orthostatic and AM orthostatic VS and increase hydration if appropriate. Continue to hold hypertensive regimen given hypotensive presentation. To be cautious will obtain ECHO. As noted pending ferritin, iron panel as certainly this could be contributing to hypotension and syncopal event also, UA pending per ED given dysuria complaint, also evaluation ongoing as noted #2. PT/OT consultation to ascertain stability and discharge needs. #2. Acute Hypoxia, Unclear etiology, Possibly Atelectasis: Patient noted to be 91% on room air desaturating down to 87% on room air, chest x-ray with no acute cardiopulmonary finding, CT brain with mild atrophy and periventricular white matter ischemic changes with no acute intracranial findings, CTA chest/abdomen/pelvis with mild bibasilar interstitial thickening and atelectasis with the dependent portion of the lower lobes, old granulomatous disease on the right with no evidence of any PE or marked cardiopulmonary process however her ABG with pO2 notable and pCO2 32.5. Will maintain on oxygen with wean as tolerated to room air, maintain on ATC budesonide, PRN albuterol, HOB, IS parameters w/ pending sputum cultures, full respiratory viral panel, COVID PCR, procalcitonin and urine antigens, repeat AM CXR following judicous overnight hydration as noted. #3. Hypokalemia, hypomagnesemia: Admission K+ 2.7, magnesium 1.0, supplementation given, repeat levels in AM. #4. Hypocalcemia: Admission calcium 5.6, total protein 4.5, corrected calcium 5.20, will obtain ionized calcium to be cautious, supplementation IV administered, repeat CMP in AM and further administer if necessary. If level remains low then we will pursue evaluation further. #5. Possible Acute on Chronic normocytic anemia: Admission CBC with hemoglobin 7.3, MCV 94.4, most recent prior to this remotely 03/31/21 hemoglobin 10.1 thus unclear what her recent baseline has been but certainly this could contribute to hypotension, will obtain iron panel, ferritin, vitamin b12, folic acid levels, guiac per ED negative as noted. #6. Hypertension: Given presentation with hypotension we will hold patient home lisinopril regimen, add back once clinically appropriate. #7. Hyperlipidemia: We will continue patient on statin therapy. #8. Restless leg syndrome: We will continue patient on Requip regimen. #9. Anxiety and depression, insomnia: Will temporally hold amitriptyline home nightly regimen. #10. Chronic back pain with radiculopathy: Will very cautiously continue Lyrica, hold for sedation, maintain on fall precautions, encourage frequent positional changes, PT/OT/CM consulted for discharge planning #11. History BPPV: Status post previous myringotomy, noted previous history, not on any chronic Valium or meclizine per current list reviewed. #12. DVT prophylaxis: SCDs, defer chemoprophylaxis given #4. #13. CODE status: Patient HCPOA are her and daughter she notes and living will is she believes in place. Discussed CODE status at length including difference between FULL code, DNR-CCA and DNR-CC status. Following discussions about the differences in these status, requested Full Code status. Advanced Care Planning Face to Face Time: 16 minutes. Charges/Coding Visit Charges Inpatient E&M: 57325 Init Hosp L3 Procedures Hospitalists Procedures: 04027 Advncd Care Plan 30 Min
[2023-11-13 21:44] LABS: Reflex Troponin-HS? (from REC) Y
[2023-11-13 22:26] LABS: Mucous, Urine 0 SEEN /hpf (<or=2+); Red Blood Cells-Urine 0 SEEN /hpf (0-5)
[2023-11-13 22:32] LABS: Phosphorus 2.1 mg/dL (2.5-4.9)
[2023-11-13 22:34] LABS: Color, Urine Yellow (Yellow); Glucose, Dipstick Normal (Normal); Ketone-Dipstick Negative (Negative); Leukocyte Esterase-Dipstick 500 /ul (Negative); Nitrite-Dipstick Positive (Negative); Occult Blood-Urine Negative /ul (Negative); Protein-Dipstick Negative (Negative); Urine Bilirubin Dipstick Negative (Negative); Urine Clarity Clear (Clear); Urine Urobilinogen Normal (Normal)
[2023-11-13] MEDS: Calcium Gluconate 1 GM/10 ML Vial IVP (22:42)
[2023-11-13 22:43] LABS: Bacteria 2+ /hpf (None Seen); Squamous Epithelial Cells - UA 0-5 SEEN /hpf (5-10); White Blood Cells 5-10 SEEN /hpf (0-5)
[2023-11-13 23:13] LABS: Troponin-I HS 6 pg/mL (3.0-54.0)
[2023-11-13 23:36] LABS: Procalcitonin 0.04 ng/mL (0.00-0.09)
[2023-11-14] VITALS (12 sets, daily range): BP systolic 98–138; BP diastolic 50–99; PULSE 71–85; RESP 15–20; TEMP 36.6–37.1; O2SAT 96–99; BMI 28.9; BMI 28.8
[2023-11-14 00:21] LABS: Reflex Lactate? Y
--- NOTE | 2023-11-14 00:36 | ECHOD_ITS ---
Reason For Study: Syncope/Near Syncope Procedure This was a 2D Doppler, Color Flow transthoracic echocardiogram. Exam performed portable in patient room. Left Ventricle Normal LV size. Left ventricular systolic function is normal. The left ventricular ejection fraction is 70 %. Stage 1 diastolic dysfunction. No regional wall motion abnormalities noted. Right Ventricle Normal RV size. Normal systolic function. Atria Normal left atrium. Normal right atrium. Mitral Valve Normal mitral valve. Tricuspid Valve Normal tricuspid valve. Mild (1+) tricuspid valve insufficiency. Pulmonary artery systolic pressure is 33 mmHg. Aortic Valve Trisinus/trileaflet aortic valve. Mild diffuse aortic valve thickening. Peak aortic valve gradient 21 mmHg. Mean aortic valve gradient 12 mmHg. Pulmonic Valve Normal pulmonic valve. Great Vessels Normal aortic root. The pulmonary artery is normal size. Inferior vena cava collapse with respiration. Pericardium/Pleural No pericardial effusion. MMode/2D Measurements & Calculations LVIDd: 4.1 cm IVSd: 1.0 cm LVOT diam: 2.0 cm LVIDs: 2.6 cm LVPWd: 1.0 cm LVOT area: 3.0 cm2 RVDd: 2.7 cm FS: 36.8 % Ao root diam: 3.7 cm LAV(MOD-bp): 33.9 ml LVAd ap4: 20.1 cm2 LAV(MOD-bp) Indexed: 19.9 ml/m2 LVLd ap4: 6.6 cm LAV(MOD-sp2): 31.9 ml EDV(MOD-sp4): 50.4 ml LAV(MOD-sp4): 32.7 ml EDV(sp4-el): 52.0 ml LVAs ap4: 9.6 cm2 LVLs ap4: 4.9 cm ESV(MOD-sp4): 16.0 ml ESV(sp4-el): 15.9 ml EF(MOD-sp4): 68.3 % EF(sp4-el): 69.5 % SV(MOD-sp4): 34.5 ml SV(sp4-el): 36.1 ml LA A4 area: 14.7 cm2 LA dimension(2D): 3.4 cm RA A4 area: 12.0 cm2 TAPSE: 2.4 cm Time Measurements MV dec time: 0.20 sec Doppler Measurements & Calculations MV E max clarence: 96.7 cm/sec Lat Peak E' Clarence: 6.0 cm/sec Med Peak E' Clarence: 6.9 cm/sec MV A max clarence: 103.1 cm/sec E/E' lat: 16.1 E/E' med: 14.0 MV E/A: 0.94 Ao V2 max: 228.0 cm/sec LV V1 max: 111.9 cm/sec MV dec slope: 496.4 cm/sec2 Ao max P.8 mmHg LV V1 max P.0 mmHg Ao V2 mean: 169.3 cm/sec LV V1 mean P.3 mmHg Ao mean P.3 mmHg LV V1 mean: 87.9 cm/sec Ao V2 VTI: 54.2 cm LV V1 VTI: 28.6 cm AV (velocity ratio): 0.53 LEANDRO(I,D): 1.6 cm2 LEANDRO(V,D): 1.5 cm2 SV(LVOT): 85.4 ml PA V2 max: 76.2 cm/sec PI end-d clarence: 85.8 cm/sec TR max clarence: 265.6 cm/sec TR max P.2 mmHg ECHO/Echo Complete Interpretation Summary Normal LV size. Left ventricular systolic function is normal. The left ventricular ejection fraction is 70 %. Stage 1 diastolic dysfunction. Mild (1+) tricuspid valve insufficiency. Ordering Physician: Susan Costa Referring Physician: Juan Hassan Performed By: Roxane Daniel, PRO, RVT
[2023-11-14] MEDS: Pravastatin 20 MG Tablet PO ×2 (01:31→21:06)
[2023-11-14] MEDS: 0.9% Normal Saline (1000mL) 1,000 ML 100 ML IV (01:31)
[2023-11-14] MEDS: Amitriptyline 25 MG Tablet 75 MG PO ×2 (01:31→21:06)
[2023-11-14] MEDS: Magnesium Sulfate 2 GM in Dextrose 5%-Water (100mL Bag) 100 ML IV (01:36)
[2023-11-14 02:03] LABS: Troponin-I HS 6 pg/mL (3.0-54.0)
[2023-11-14 02:42] LABS: Ionized Calcium Order ORDER TUBE
[2023-11-14 05:05] LABS: Absolute Lymphocyte Count 1.83 X10^3/uL (0.83-4.51); Absolute Neutrophil Count 3.7 X10^3/uL (2.0-7.7); Basophil# 0.02 X10^3/uL; Basophil% 0.3 % (0-1); Eosinophil# 0.07 X10^3/uL; Eosinophils% 1.1 % (0-5); Hematocrit 30.5 % (37-47); Hemoglobin 9.6 g/dL (12.0-15.0); Lymphocyte # 1.83 X10^3/ul (0.83-4.51); Lymphocyte % 29.6 % (19-41); Mean Corp Hgb Conc 31.5 g/dL (32-36); Mean Corpuscular Hgb 29.8 pg (27.0-32.0); Mean Corpuscular Volume 94.7 fL (81-99); Monocyte# 0.53 X10^3/uL; Monocyte% 8.6 % (0-10); NRBC Flagged by Analyzer 0 % (0-5); Neutrophil % 59.9 % (47-70); Platelet Count 251 K/mm3 (150-450); RBC Distribution Width CV 12.7 % (11.6-14.6); RBC Distribution Width SD 43.9 fl (35.1-43.9); Red Blood Count 3.22 M/mm3 (4.2-5.4); White Blood Count 6.2 K/mm3 (4.4-11.0)
[2023-11-14 05:27] LABS: Troponin-I HS 6 pg/mL (3.0-54.0); Vitamin B12 359 pg/mL (211-911)
[2023-11-14 05:50] LABS: ALB/GLOB Ratio 0.7 RATIO (0.9-2.4); AST(SGOT) 9 U/L (15-37); Alanine Aminotransfer ALT/SGPT 10 U/L (13-56); Albumin, Serum 2.6 g/dL (3.2-5.0); Alkaline Phosphatase 67 U/L (45-117); Anion Gap 6 (5-15); BUN 16 mg/dL (7-18); BUN/Creat Ratio 18.1 RATIO (10-20); Calcium,Total 8.9 mg/dL (8.5-10.1); Chloride 108 mmol/L (98-107); Creatinine, Serum 0.88 mg/dL (0.55-1.02); EST Glomerular Filtration Rate 65 mL/min (>60); Est Glom Filt Rate - Afr Amer 79 mL/min (>60); Estimated Creatinine Clearance 43.85 ml/min; Ferritin 78 ng/mL (8-252); Globulin 3.6 g/dL (2.2-4.2); Glucose 106 mg/dL (74-106); Iron 49 ug/dL (50-170); Iron Binding Capacity,Total 277 ug/dL (250-450); Magnesium 2.6 mg/dL (1.6-2.6); PERCENT IRON SATURATION 17.7 % (15.0-55.0); Potassium 4.8 mmol/L (3.5-5.1); Protein, Total 6.2 g/dL (6.4-8.2); Sodium Level 135 mmol/L (136-145)
--- NOTE | 2023-11-14 05:55 | RAD_ITS ---
INDICATION: Hypoxia EXAMINATION/TECHNIQUE: X-RAY - XR Chest 1 View COMPARISON: FINDINGS: LINES/DEVICES: None. LUNGS: No consolidation, edema or effusion. No pneumothorax. MEDIASTINUM AND CARDIOVASCULAR STRUCTURES: Cardiac silhouette not enlarged. Central airways and mediastinal contour are unremarkable. BONES AND SOFT TISSUES: Degenerative vertebral changes. RAD/Chest 1 View (Portable) IMPRESSION: No radiographic evidence of acute cardiopulmonary disease. Electronically Signed: Adan Rice DO at 14:24 EDT ,
[2023-11-14] MEDS: Budesonide Respules 0.5 MG/2 ML AMPUL.NEB. INHALATION ×2 (07:14→19:50)
--- NOTE | 2023-11-14 08:41 | VDLE_ITS ---
Reason For Study: Elevated D Dimer RIGHT LEFT GSV is normal. GSV is normal. CFV is compressible, spontaneous, phasic, CFV is compressible, spontaneous, phasic, competent and demonstrates normal competent, and demonstrates normal augmentation. augmentation. FV is compressible, spontaneous, phasic, FV is compressible, spontaneous, phasic, competent and demonstrates normal competent and demonstrates normal augmentation. augmentation. POP V is compressible, spontaneous, phasic, POP V is compressible, spontaneous, phasic, competent and demonstrates normal competent and demonstrates normal augmentation. augmentation. T/P Trunk is compressible. T/P Trunk is compressible. PTV is compressible. PTV is compressible. RT PerV is compressible. LT PerV is compressible. Procedure Non vascularized anechoic area noted in the This is a venous duplex using B-mode, color Lt POP FOSSA measuring approximately 5.11cm x flow and spectral Doppler. 2.08cm. Exam performed portable in patient room. The exam was diagnostic. A preliminary report was called and/or faxed to [facility]. VL/Venous Duplex US - Jg Extrem Interpretation Summary Deep veins of the lower extremities are bilaterally patent and compressible seg mentally. There is no evidence of deep vein thrombosis on either side. Valvular competence appears in tact within the proximal deep venous systems bilaterally. The great saphenous veins appear bila terally patent and compressible segmentally. A non-vascular, hypoechoic structure is noted in the left popliteal space, measuring 5.11 cm x 2.08 cm. This probably represents a popliteal cyst. Clinica l correlation is advised. Ordering Physician: Tova Simon Referring Physician: Juan Hassan Performed By: Fawad Yu, MINERVAT
[2023-11-14] MEDS: Ceftriaxone 1 GM/50 ML BAG IV (09:07)
[2023-11-14] MEDS: Sodium Chloride 0.65% 1 SPRAY SPRAY.BTL 2 SPRAY NASAL (09:08)
[2023-11-14] MEDS: Pramipexole Di-HCl 1 MG Tablet 1.5 MG PO (11:49)
--- NOTE | 2023-11-14 11:59 | NEURO.CONS ---
Assessment and Plan: Neuro Assessment/Plan SPENSER URBINA is a 82 F , being evaluated by Teleneurology for episode of syncope lasting for 20 minutes, no prodromal symptoms. No bowel bladder incontinence or tongue biting. Systolic blood pressure in 60's. Also had similar episode in the past when she was found to have another episode of low blood pressure. Less likely to be seizure given semiology and duration of event. No focal deficits suggestive of TIA/stroke. Diagnosis: Symptomatic hypotension Plan: MRI brain , EEG , CT angio , ECHO and event monitor (on discharge) I personally attended this patient and spent a total time of 50 minutes evaluating this patient including clinical assessment, review of chart, medical history imaging, and determining appropriate treatment and workup. Eve Merlin [facility] Tele neurology Department HPI Consult Data Date of Consult: 11/14/23 HPI Narrative HPI Narrative: SPENSER URBINA, is a 82 F who presents with syncopal episode. As per HPI, 82 y/o F w/ PMHx: Chronic anemia, RLS, HLD, HTN, Hx BPPV s/p prior R sided myringotomy, Anxiety and Depression, Chronic back pain with radiculopathy who presents to the [facility] ED on 11/13/23 with history of syncopal event reportedly while sitting per her family noted to be finishing dinner with intake of a rum and coke with sudden syncopal event minimally responsive for approximately 20 minutes prompting EMS call with blood pressure decreased with systolic in the 60s to 70s per EMS prompting transition to the ED for evaluation with improvement in mental status on route with patient reporting mild recent dysuria but no other marked recent symptoms including no fevers or chills. She does admit to having 1 similar remote episode of syncope. She notes over the last 2 days she has had increased fatigue and malaise as well as decreased appetite. Workup in the ED included T97.8, heart 75, BP initially 83/48, respiratory rate 18, 91% on room air desaturating down to 87% on room air, CBC with WBC 6.5, hemoglobin 7.3, MCV 94.4, platelet 211 without marked shift, D-dimer 5.35, ABG with pH 7.34, pCO2 32.5, pO2 122, BMP with potassium 2.7, chloride 123, carbon oxide 13, glucose 71, calcium 5.6, ethyl alcohol 22, guaiac stool negative, troponin 4, BNP 41.9, magnesium 1.0, chest x-ray with no acute cardiopulmonary finding, CT brain with mild atrophy and periventricular white matter ischemic changes with no acute intracranial findings, CTA chest/abdomen/pelvis with mild bibasilar interstitial thickening and atelectasis with the dependent portion of the lower lobes, old granulomatous disease on the right with no evidence of any PE or marked cardiopulmonary process, EKG with sinus rhythm with no acute evidence of ischemia, urinalysis ordered per ED but not yet obtained upon evaluation of patient. In the ED patient administered potassium 40 mill: P.o. x 1 as well as 20 mill equivalent IV, magnesium 2 g IV, calcium gluconate 1 g IV push x 1, as well as 1 L normal saline. On my evaluation , patient herself does not remember the event and daughter provided most of the history . She denies any warning signs prior to event. Episode lasted for roughly 20 minutes. Has another episode in the past which was also related to low blood pressure. [facility] Medical History Chronic anemia HLD (hyperlipidemia) HTN (hypertension) Back pain with radiculopathy Anxiety and depression RLS (restless legs syndrome) BPPV (benign paroxysmal positional vertigo) Home Medications ?Medication ?Instructions ?Recorded ?Last Taken ?Type amitriptyline 75 mg tablet 75 mg PO QHS sleep 02/26/13 12/04/19 History aspirin 81 mg chewable tablet 81 mg PO DAILY@0800 heart health 02/26/13 12/05/19 History calcium carbonate 600 mg-vitamin 600 mg PO DINNER supplement 02/26/13 12/04/19 History D3 20 mcg (800 unit) tablet triamterene 37.5 1 tab PO DAILY diuretic 02/26/13 12/05/19 History mg-hydrochlorothiazide 25 mg tablet (Maxzide-25mg) pravastatin 20 mg tablet 20 mg PO QHS cholesterol 12/05/19 12/04/19 History ropinirole 0.5 mg tablet 3 mg PO DINNER restless legs 12/05/19 12/04/19 History lisinopril 20 mg tablet 20 mg PO DAILY 03/31/21 Unknown History potassium chloride 20 mEq 20 meq PO BID 11/13/23 Unknown History tablet,extended release spironolactone 50 mg tablet 50 mg PO DAILY 11/13/23 Unknown History Allergy/AdvReac Type Severity Reaction Status Date / Time Sulfa (Sulfonamide Allergy Swelling Verified 03/30/21 23:58 Antibiotics) acetaminophen (From Vicodin) AdvReac Vomiting Verified 03/30/21 23:58 hydrocodone bitartrate (From AdvReac Vomiting Verified 03/30/21 23:58 Vicodin) promethazine HCl (From AdvReac Vomiting Verified 03/30/21 23:58 Phenergan) Family History Mother Heart disease Father Heart disease Surgical History S/P cholecystectomy Social History household members: spouse Smoking Status: Never smoker alcohol intake: never substance use type: does not use Vital Signs Vital Signs Vital Signs: 11/13/23 18:52 11/13/23 18:57 11/13/23 19:00 Temperature 97.8 F 97.7 F L Temperature Source Oral Oral Pulse Rate 75 75 Pulse Rate [Lying] Pulse Rate [Sitting (for 1 minute prior to obtaining)] Pulse Rate [Standing (for 1 minute prior to obtaining)] Respiratory Rate 18 12 Respiratory Effort Normal Respiratory Depth Respiratory Pattern Normal Blood Pressure 83/48 L 84/47 L Blood Pressure [Lying] Blood Pressure [Sitting (for 1 minute prior to obtaining)] Blood Pressure [Standing (for 1 minute prior to obtaining)] Blood Pressure Mean 59 59 Blood Pressure Mean [Lying] Blood Pressure Mean [Sitting (for 1 minute prior to obtaining)] Blood Pressure Mean [Standing (for 1 minute prior to obtaining)] Blood Pressure Source Blood Pressure Position Blood Pressure Location Pulse Ox 91 87 Oxygen Delivery Method Room Air Room Air Oxygen Flow Rate (L/min) 11/13/23 19:57 11/13/23 20:00 11/13/23 20:07 Temperature 97.5 F L 97.8 F Temperature Source Oral Oral Pulse Rate 74 78 Pulse Rate [Lying] Pulse Rate [Sitting (for 1 minute prior to obtaining)] Pulse Rate [Standing (for 1 minute prior to obtaining)] Respiratory Rate 19 H 25 H Respiratory Effort Respiratory Depth Respiratory Pattern Blood Pressure 115/85 H 104/67 Blood Pressure [Lying] Blood Pressure [Sitting (for 1 minute prior to obtaining)] Blood Pressure [Standing (for 1 minute prior to obtaining)] Blood Pressure Mean 95 79 Blood Pressure Mean [Lying] Blood Pressure Mean [Sitting (for 1 minute prior to obtaining)] Blood Pressure Mean [Standing (for 1 minute prior to obtaining)] Blood Pressure Source Blood Pressure Position Blood Pressure Location Pulse Ox 94 96 Oxygen Delivery Method Room Air Room Air Room Air Oxygen Flow Rate (L/min) 11/13/23 21:00 11/13/23 22:00 11/13/23 23:00 Temperature 98 F 98 F 98.1 F Temperature Source Oral Oral Oral Pulse Rate 81 81 78 Pulse Rate [Lying] Pulse Rate [Sitting (for 1 minute prior to obtaining)] Pulse Rate [Standing (for 1 minute prior to obtaining)] Respiratory Rate 22 H 16 16 Respiratory Effort Respiratory Depth Respiratory Pattern Blood Pressure 103/75 102/58 L 102/51 L Blood Pressure [Lying] Blood Pressure [Sitting (for 1 minute prior to obtaining)] Blood Pressure [Standing (for 1 minute prior to obtaining)] Blood Pressure Mean 84 72 68 Blood Pressure Mean [Lying] Blood Pressure Mean [Sitting (for 1 minute prior to obtaining)] Blood Pressure Mean [Standing (for 1 minute prior to obtaining)] Blood Pressure Source Blood Pressure Position Blood Pressure Location Pulse Ox 96 96 98 Oxygen Delivery Method Nasal Cannula Nasal Cannula Room Air Oxygen Flow Rate (L/min) 2 2 11/14/23 00:00 11/14/23 00:04 11/14/23 00:50 Temperature 97.8 F 97.9 F 98.4 F Temperature Source Oral Oral Pulse Rate 77 77 76 Pulse Rate [Lying] Pulse Rate [Sitting (for 1 minute prior to obtaining)] Pulse Rate [Standing (for 1 minute prior to obtaining)] Respiratory Rate 18 18 20 H Respiratory Effort Respiratory Depth Respiratory Pattern Blood Pressure 98/50 L 98/50 L 114/59 L Blood Pressure [Lying] Blood Pressure [Sitting (for 1 minute prior to obtaining)] Blood Pressure [Standing (for 1 minute prior to obtaining)] Blood Pressure Mean 66 66 77 Blood Pressure Mean [Lying] Blood Pressure Mean [Sitting (for 1 minute prior to obtaining)] Blood Pressure Mean [Standing (for 1 minute prior to obtaining)] Blood Pressure Source Monitor Blood Pressure Position Semi-Fowlers Blood Pressure Location Left Arm Pulse Ox 96 96 99 Oxygen Delivery Method Nasal Cannula Room Air Oxygen Flow Rate (L/min) 2 11/14/23 00:50 11/14/23 00:52 11/14/23 01:00 Temperature 98.4 F Temperature Source Oral Pulse Rate 76 Pulse Rate [Lying] 76 Pulse Rate [Sitting (for 1 minute prior to obtaining)] 75 Pulse Rate [Standing (for 1 minute prior to obtaining)] 74 Respiratory Rate 20 H Respiratory Effort Normal Non-Labored Respiratory Depth Normal Respiratory Pattern Normal Blood Pressure 114/59 L Blood Pressure [Lying] 114/59 L Blood Pressure [Sitting (for 1 minute prior to obtaining)] 122/57 H Blood Pressure [Standing (for 1 minute prior to obtaining)] 120/64 Blood Pressure Mean 77 Blood Pressure Mean [Lying] 77 Blood Pressure Mean [Sitting (for 1 minute prior to obtaining)] 78 Blood Pressure Mean [Standing (for 1 minute prior to obtaining)] 82 Blood Pressure Source Blood Pressure Position Blood Pressure Location Pulse Ox 99 Oxygen Delivery Method Room Air Room Air Oxygen Flow Rate (L/min) 11/14/23 01:18 11/14/23 04:39 11/14/23 07:15 Temperature 97.9 F Temperature Source Oral Pulse Rate 75 71 Pulse Rate [Lying] Pulse Rate [Sitting (for 1 minute prior to obtaining)] Pulse Rate [Standing (for 1 minute prior to obtaining)] Respiratory Rate 18 18 Respiratory Effort Respiratory Depth Respiratory Pattern Normal Blood Pressure 138/99 H Blood Pressure [Lying] Blood Pressure [Sitting (for 1 minute prior to obtaining)] Blood Pressure [Standing (for 1 minute prior to obtaining)] Blood Pressure Mean 112 Blood Pressure Mean [Lying] Blood Pressure Mean [Sitting (for 1 minute prior to obtaining)] Blood Pressure Mean [Standing (for 1 minute prior to obtaining)] Blood Pressure Source Monitor Blood Pressure Position Semi-Fowlers Blood Pressure Location Left Arm Pulse Ox 98 98 Oxygen Delivery Method Room Air Room Air Oxygen Flow Rate (L/min) 11/14/23 07:15 11/14/23 08:43 11/14/23 08:54 Temperature 97.9 F Temperature Source Oral Pulse Rate 85 Pulse Rate [Lying] Pulse Rate [Sitting (for 1 minute prior to obtaining)] Pulse Rate [Standing (for 1 minute prior to obtaining)] Respiratory Rate 16 Respiratory Effort Normal Non-Labored Respiratory Depth Normal Respiratory Pattern Normal Blood Pressure 106/55 L Blood Pressure [Lying] Blood Pressure [Sitting (for 1 minute prior to obtaining)] Blood Pressure [Standing (for 1 minute prior to obtaining)] Blood Pressure Mean 72 Blood Pressure Mean [Lying] Blood Pressure Mean [Sitting (for 1 minute prior to obtaining)] Blood Pressure Mean [Standing (for 1 minute prior to obtaining)] Blood Pressure Source Blood Pressure Position Blood Pressure Location Pulse Ox 97 98 Oxygen Delivery Method Room Air Room Air Room Air Oxygen Flow Rate (L/min) Weight Weight: 69.2 kg Body Mass Index (BMI) 28.8 Physical Exam Neuro Neuro Narrative: -? General: Laying comfortably in bed; in no acute distress. -? HENT: Normal oropharynx and mucosa. Normal external appearance of ears and nose. Exophthalmos. -? Neck: Supple, no pain or tenderness -? CV:? No peripheral edema. -? Pulmonary:? Normal respiratory effort. -? Ext: No cyanosis, edema, or deformity -? Skin: No rash. Normal palpation of skin.? -? Musculoskeletal: full range of motion; no joint tenderness. Normal digits and nails by inspection. No clubbing. -? NEURO: -? Mental Status: The patient was alert and oriented to time, place, and person. Normal recent/remote memory, concentration, and general fund of knowledge. -? Language: speech is fluent.? Naming, repetition, fluency, and comprehension intact. -? Cranial Nerves: EOMI, visual acuña full, no facial asymmetry, facial sensation intact, hearing intact, tongue midline, no evidence of atrophy or fibrillations. As performed by the nurse. Sternocleidomastoid and trapezius were equally strong. Soft palate raises equally, no uvular deviations -? Motor: normal bulk, tone, and strength throughout. No pronator drift or satelliting. Upper and lower extremities equal bilaterally. R L R L -? Tone: is normal and bulk is normal -? Sensation- Intact to light touch bilaterally -? Coordination: No dysmetria on [id number], finger follow finger or [id number]. -? Gait- deferred Lab / Micro Data 11/14/23 04:41 11/14/23 04:41 Labs: Laboratory Results - last 24 hr 11/13/23 19:05: WBC 6.5, RBC 2.48 L, Hgb 7.3 L, Hct 23.4 L, MCV 94.4, MCH 29.4, MCHC 31.2 L, RDW Std Deviation 44.1 H, RDW Coeff of Bailee 12.8, Plt Count 211, MPV 9.2, Immature Gran % (Auto) 0.500, Neut % (Auto) 59.1, Lymph % (Auto) 30.9, [place] % (Auto) 8.1, Eos % (Auto) 1.1, Baso % (Auto) 0.3, Absolute Neuts (auto) 3.9, Absolute Lymphs (auto) 2.02, Nucleated RBC % 0, D-Dimer Quant (PE/DVT) 5.35 H*, Sodium 143, Potassium 2.7 L*, Chloride 123 H, Carbon Dioxide 13.0 L, Anion Gap 7, BUN 15, Creatinine 0.70, Estim Creat Clear Calc 50.04, Est GFR (MDRD) Af Amer 103, Est GFR (MDRD) Non-Af 85, BUN/Creatinine Ratio 21.4 H, Glucose 71 L, Calcium 5.6 L*, Phosphorus 2.1 L, Magnesium 1.0 L, Total Bilirubin 0.20, Direct Bilirubin 0.09, AST 10 L, ALT 8 L, Alkaline Phosphatase < 10 L, Troponin I High Sens 4, B-Natriuretic Peptide 41.9, Total Protein 4.5 L, Albumin 2.0 L, Globulin 2.5 11/13/23 19:41: Ethyl Alcohol 22.0 11/13/23 20:49: Lactic Acid 2.0, Antibody Screen NEGATIVE 11/13/23 22:10: Urine Color Yellow, Urine Clarity Clear, Urine pH 6.0, Ur Specific [place] 1.010, Urine Protein Negative, Urine Glucose (UA) Normal, Urine Ketones Negative, Urine Occult Blood Negative, Urine Nitrite Positive H, Urine Bilirubin Negative, Urine Urobilinogen Normal, Ur Leukocyte Esterase 500 H, Urine RBC 0 SEEN, Urine WBC 5-10 SEEN, Ur Squamous Epith Cells 0-5 SEEN, Urine Bacteria 2+, Urine Mucus 0 SEEN 11/13/23 22:50: Troponin I High Sens 6 11/13/23 23:04: Procalcitonin 0.04 11/14/23 00:49: Lactic Acid 1.0 11/14/23 01:27: Troponin I High Sens 6 11/14/23 04:41: WBC 6.2, RBC 3.22 L, Hgb 9.6 L, Hct 30.5 L, MCV 94.7, MCH 29.8, MCHC 31.5 L, RDW Std Deviation 43.9, RDW Coeff of Bailee 12.7, Plt Count 251, MPV 9.0, Immature Gran % (Auto) 0.500, Neut % (Auto) 59.9, Lymph % (Auto) 29.6, [place] % (Auto) 8.6, Eos % (Auto) 1.1, Baso % (Auto) 0.3, Absolute Neuts (auto) 3.7, Absolute Lymphs (auto) 1.83, Nucleated RBC % 0, Sodium 135 L, Potassium 4.8, Chloride 108 H, Carbon Dioxide 21.0, Anion Gap 6, BUN 16, Creatinine 0.88, Estim Creat Clear Calc 43.85, Est GFR (MDRD) Af Amer 79, Est GFR (MDRD) Non-Af 65, BUN/Creatinine Ratio 18.1, Glucose 106, Calcium 8.9, Magnesium 2.6, Iron 49 L, TIBC 277, Iron Saturation 17.7, Ferritin 78, Total Bilirubin 0.30, AST 9 L, ALT 10 L, Alkaline Phosphatase 67, Troponin I High Sens 6, Total Protein 6.2 L, Albumin 2.6 L, Globulin 3.6, Albumin/Globulin Ratio 0.7 L, Vitamin B12 359, Folate 9.30 Micro: Microbiology 11/13/23 23:05 Mucosa - Nasopharyngeal Respiratory Panel (PCR) - Final 11/13/23 23:05 Mucosa - Nasopharyngeal Coronavirus COVID-19 PCR - Final 11/13/23 22:10 Urine, Clean Catch Streptococcus pneumoniae Antigen (M - Final 11/13/23 22:10 Urine, Clean Catch Legionella Antigen - Final 11/13/23 20:20 Stool Stool Occult Blood (NIDHI) - Final ABG Data ABG results: ABG 11/13/23 20:50 Specimen Type ART Sample Site R Radial pH 7.34 L Bicarbonate Actual 17.6 L Total CO2 19 Base Excess -8 L O2 Saturation 99 O2 % 3.0 ABG pCO2 32.5 L ABG pO2 122 H Cole Test Positive O2 Delivery Device Cannula Vent Mode Not entered Imaging Radiology Impression Brain CT 11/13/23 19:20 IMPRESSION: Mild atrophy and periventricular white matter ischemic change. No acute bleed. If concern for acute infarct MRI recommended Electronically Signed: Juan Galan MD at 20:38 EDT , Chest X-Ray 11/13/23 19:30 IMPRESSION: No acute cardiopulmonary pathology Electronically Signed: Juan Galan MD at 20:45 EDT , Abdomen/Pelvis CT 11/13/23 20:15 IMPRESSION: Narrowed colonic segment at the level of the distal descending and sigmoid of uncertain clinical significance possibly due to chronic stricture due to inflammatory bowel disease. No evidence for small bowel obstruction Incidental finding of fluid in the cul-de-sac of uncertain etiology and clinical significance Multiple other findings as above Electronically Signed: Juan Galan MD at 21:31 EDT , Chest CTA 11/13/23 20:15 IMPRESSION: Mild bibasilar interstitial thickening and atelectasis within the dependent portion of the lower lobes. Old granulomatous disease on the right. No evidence for pulmonary embolus Electronically Signed: Juan Galan MD at 21:20 EDT , Active Medications Active Medications Active Medications: Current Medications Generic Name Dose Route Start Last Admin Trade Name Freq PRN Reason Stop Dose Admin Acetaminophen 650 mg 11/14/23 00:36 Acetaminophen 325 Mg Tablet PO Q4H PRN PRN Fever, pain 1-12/17 Al Hydrox/Mg Hydrox/Simethicone 30 ml 11/14/23 00:36 Mag /Aluminum/Simeth Wch Udc 30 Ml Oral.Susp PO Q6H PRN PRN Gastric Burning Albuterol Sulfate 2.5 mg 11/14/23 00:36 Albuterol 2.5 Mg/3 Ml Vial.Neb. INHALATION Q2H PRN PRN Dyspnea, wheezing Amitriptyline HCl 75 mg 11/14/23 01:30 11/14/23 01:31 Amitriptyline 25 Mg Tablet PO 75 mg QHS FLOWER Administration Budesonide 0.5 mg 11/14/23 00:36 11/14/23 07:14 Budesonide Respules 0.5 Mg/2 Ml Ampul.Neb. INHALATION 0.5 mg BID.RT FLOWER Administration Calcium/Vitamin D 1 tablet 11/14/23 17:00 Calcium Carb/Vitamin D 1 Tablet Tablet PO DINNER FLOWER Guaifenesin 20 ml 11/14/23 00:36 Guaifenesin 10 Ml Udc (200mg/10ml) PO Q4H PRN PRN COUGH Sodium Chloride 250 mls @ 15 mls/hr 11/14/23 00:41 IV .[id number] PRN Additional IVPB Infusion Sodium Chloride 250 mls @ 15 mls/hr 11/14/23 00:41 IV .[id number] PRN Saline Flush Ceftriaxone Sodium 1 gm in 50 mls @ 100 mls/hr 11/14/23 09:00 11/14/23 09:45 Rocephin IV Infused Q24 FLOWER Infusion Melatonin 3 mg 11/14/23 00:36 Melatonin 3 Mg Tablet PO QHS PRN PRN INSOMNIA Ondansetron HCl 4 mg 11/14/23 00:36 Ondansetron 4 Mg/2 Ml Vial IV Q8H PRN PRN NAUSEA/VOMITING Pramipexole Dihydrochloride 1.5 mg 11/14/23 17:00 11/14/23 11:49 Pramipexole Di-Hcl 1 Mg Tablet PO 1.5 mg DINNER FLOWER Administration Pravastatin Sodium 20 mg 11/14/23 00:36 11/14/23 01:31 Pravastatin 20 Mg Tablet PO 20 mg QHS FLOWER Administration Pregabalin 75 mg 11/14/23 10:00 11/14/23 09:03 Pregabalin 75 Mg Capsule PO Not Given DAILY FLOWER Senna/Docusate Sodium 2 tablet 11/14/23 00:36 Senna/Docusate Sodium 1 Tablet PO BID PRN PRN Constipation Sodium Chloride 10 - 40 ml 11/14/23 00:41 0.9% Saline Lock 10 Ml Syringe IV UD PRN SALINE FLUSH Sodium Chloride 2 spray 11/14/23 02:06 11/14/23 09:08 Sodium Chloride 0.65% 1 Grayson Grayson.Btl NASAL 2 spray TID PRN PRN Administration NASAL DRYNESS
--- NOTE | 2023-11-14 14:08 | MRI_ITS ---
STUDY: MRI BRAIN WITHOUT CONTRAST REASON FOR EXAM: Female, 82 years old. Syncope TECHNIQUE: Multiplanar multisequence imaging of the brain was performed without the administration of intravenous contrast. COMPARISON: Noncontrast head CT 11/13/2023, brain MRI 05/16/2020 FINDINGS: The ventricles, cisterns, and sulci are prominent consistent with age-related volume loss. There is no restricted diffusion to suggest acute ischemia or infarction. No succeptibility artifict to suggest intracranial hemorrhage or mineralization. Major intracranial signal voids are preserved. There is stable high T2/FLAIR signal seen in the periventricular deep white matter. There is no midline shift, mass effect, or extra axial fluid collections are seen. No CP angle or IAC mass is seen. The orbits are unremarkable. The sella turcica and craniovertebral junction are within normal limits. The visualized paranasal sinuses are clear. The mastoid air cells are clear. MRI/Brain without Contrast IMPRESSION: Chronic microvascular ischemic changes. No intracranial hemorrhage, acute infarct, or space occupying lesion seen on this noncontrast MRI of the brain. Electronically Signed: Mele Rodriguez MD at 20:34 EDT ,
--- NOTE | 2023-11-14 14:42 | CT_ITS ---
INDICATION: syncope EXAMINATION: CT BRAIN WITHOUT CONTRAST, CTA HEAD, AND CTA NECK TECHNIQUE: Noncontrast axial images were obtained of the brain. Subsequently, routine carotid CT angiogram protocol was performed without and with IV contrast. In addition, images were obtained of the [place] of [place]. NASCET criteria using the distal ICAs for comparison were used for evaluation of stenoses. 3D reconstructions were reviewed. The protocol utilizes one or more of the following dose reduction techniques: automated exposure control, adjustment of mA and/or kV according to patient size,and/or use of iterative reconstruction technique. IV Contrast dosage and agent: COMPARISON: FINDINGS: --CT BRAIN WITHOUT CONTRAST: BRAIN PARENCHYMA: No intra- or extra-axial hemorrhage. No evidence of acute infarct. No intracranial mass or mass effect. There is preservation of the stevenson/white matter interface. Posterior fossa structures are unremarkable. CSF SPACES: Appropriate for age. No hydrocephalus. Basal cisterns are patent. CALVARIUM, SKULL BASE, PARANASAL SINUSES AND MASTOID AIR CELLS: Clear. No discrete lytic or blastic abnormalities. --CTA NECK: AORTIC ARCH AND BRANCHES: Normal anatomy, patent. RIGHT CCA: No occlusion, significant stenosis or dissection. RIGHT CAROTID BULB: Atherosclerotic calcifications with no hemodynamically significant stenosis. RIGHT ICA: No occlusion, significant stenosis or dissection. LEFT CCA: No occlusion, significant stenosis or dissection. LEFT CAROTID BULB: Atherosclerotic calcifications with no hemodynamically significant stenosis. LEFT ICA: No occlusion. Atherosclerotic calcifications proximally with no significant stenosis or dissection. RIGHT VERTEBRAL ARTERY: No occlusion, significant stenosis or dissection. LEFT VERTEBRAL ARTERY: No occlusion, significant stenosis or dissection. NECK SOFT TISSUES: Unremarkable. --CTA HEAD: --Anterior circulation: ICAs: No significant stenosis at the intracranial/visualized segments. ACAs: No significant stenosis at the visualized segments. ACOM: Present. MCAs: No significant stenosis at the visualized segments. --Posterior circulation: PCOMs: Nonvisualization bilaterally. local sales manager: No significant stenosis at the visualized segments. BASILAR ARTERY: No significant stenosis. VERTEBRAL ARTERIES: No significant stenosis at the intradural/visualized segments. No evidence of intracranial aneurysm or vascular malformation. CT/CTA Head AND Neck W/ Contrast IMPRESSION: No acute intracranial pathology. Atherosclerotic calcifications at the carotid bulbs bilaterally and the proximal right internal carotid artery. No hemodynamically significant stenosis. Electronically Signed: Adan Rice DO at 16:06 EDT ,
--- NOTE | 2023-11-14 15:05 | CASEMGMT ---
AUTUMN ARCHULETA assessment: RN CM to room to meet w/patient for initial transition planning/care coordination assessment. AUTUMN ARCHULETA introduced self and role at [facility]. Patient sitting up in bed, alert and oriented. and daughter, Roxy, @ bedside and pt agreeable to them being present during assessment. Patient willing to participate in assessment and is able to answer all questions appropriately. Care providers, pharmacy, and demographics verified. Strata: 1 PCP: Dr Hassan Specialists: Dr Sumner-pain mgnt Preferred Pharmacy: [facility] @ [place]. Otherwise, [facility] @ [place]. Insurance: [facility] [place] [facility] [place] Prescription Benefit: yes Living Will/HPOA: Pt has a LW and HCPOA, who is her , Erick LNOK: , Erick. 3 daughters. One daughter is Roxy Living Arrangements: Pt lives in 2-story home w/ and dtr, Roxy. 2 steps to enter. Pt's bedroom and bathroom upstairs. No bathroom on main floor. Pt states she is able to navigate stairs well. Independent w/ADL's and IADL's and manages her own medications. Roxy assists w/home mgnt tasks as well. Transportation: Pt and both drive. Pt denies transportatoin issues. DME: Pt has a cane she uses on occasion. Denies other DME needs. HHC/SNF: No previous HHC or SNF. Had done OP therapy @ [facility] in the past after back surgery. Patient wishes to discharge home, denies need for HHC or OP therapy. Patient states he has no needs or concerns at this time. CM to follow for discharge planning needs that may arise. Plan: Home w/family support and discharge plans in place. Tres HOYOS RN, CM
--- NOTE | 2023-11-14 15:16 | CHAPLAIN ---
Type of Pastoral Visit ___ Initial Visit ___ Follow-up Visit ___ On-call Visit ___ General Patient Visit ___ Spiritual Assessment ___ Family Conference ___ Bereavement ___ Rapid Response ___ Code Blue ___ Other (describe below) Pastoral Care Referral From ___ Patient ___ Family ___ Nurse ___ Physician ___ [employer] ___ Psychotherapist ___ Other (describe below) Sacrament/Intervention ___ Active listening ___ Anointing ___ Jehovah'S Witness ___ Bereavement ___ Communion ___ Kitty exploration ___ ___ Life review ___ Prayer ___ Reconciliation ___ Sacrament of Sick ___ Supportive presence ___ Wedding ___ Other (describe below) Pastoral Comments two attempts made to visit with this patient; both times she had staff members in the room and she was having a procedure
--- NOTE | 2023-11-14 17:04 | PCM.PN.HOSP ---
Reason for Visit Reason for Visit: Syncope Subjective Subjective Patient is an 82-year-old white female who presented to the emergency department at [facility] on 11/14/2019 for after a syncopal episode that she suffered at home while she was sitting with her family at the dinner table finishing dinner and drinking a rum and coke. The event was sudden and the patient was minimally responsive per family for about 20 minutes which resulted in him calling EMS. She did have a decrease in her blood pressure with systolics in the 60s to 70s per the EMS. And route to the hospital her mental status started to improve and she was alert and oriented at the time of arrival. She complained of some mild dysuria on presentation but no other symptoms and she been feeling well other than the dysuria. She has had 1 previous episode of this remotely. She did report the 2 days prior to presentation she had some increased fatigue and malaise as well as some decreased appetite. Vital signs the emergency department showed a temperature of 97.8, heart rate 75, blood pressure initially 83/48 with a repeat of 115/85, respiratory was 18 oxygen saturation was 87% on room air. The patient is not oxygen dependent at baseline and has no known lung disease. Her CBC showed a normal white count with no left shift and normal platelets however her hemoglobin was 7.3 with an unknown baseline. Repeat hemoglobin on the a.m. of 11/14/2023 was 9.6. The anemia was normocytic. Her D-dimer was markedly elevated at 5.35. ABG showed a pH of 7.34 with a pCO2 of 32.5 and a pO2 of 122.Her chemistries were markedly abnormal with normal sodium but she had a potassium of 2.7, bicarb of 13, normal renal function, glucose of 71, calcium of 5.6, phosphorus of 2.1 and magnesium of 1.0. Lactic acid was normal x 2 at 2 and 1 respectively. Liver functions were unremarkable. Procalcitonin was normal. B12 and folate were obtained and found to be within normal limits. EKG was unremarkable. Chest x-ray showed no acute findings. CT of the abdomen pelvis showed a narrowed colonic segment at the level of the distal descending and sigmoid colon of uncertain significance and no other acute findings. CT of the chest showed mild bibasilar interstitial thickening and atelectasis and old granulomatous disease but no other findings. Chest x-ray was unremarkable. She was admitted to the medical floor. All her electrolyte abnormalities were repleted and completely normalized including her serum bicarb by the next morning. CTA of the head and neck was unremarkable other than some atherosclerotic calcifications at the carotid bulbs bilaterally and proximal right internal carotid artery with no hemodynamically significant stenosis. Echocardiogram showed EF of 70% with stage I diastolic dysfunction. Patient states she feels mind and wants to go home. 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 I did discuss with her that this probably will not happen. She is understanding but states she feels fine. She is not quite sure what happened. She has had 1 episode of this previously. She does appear to have a urinary tract infection and antibiotics were initiated. Objective Data Objective Data Vital Signs: Vital Signs Temp Pulse Resp BP Pulse Ox O2 Del Method O2 Flow Rate 98.4 F 72 15 138/63 H 98 Room Air 2 11/14/23 14:22 11/14/23 14:22 11/14/23 14:22 11/14/23 14:22 11/14/23 14:11/14/23 14:24 11/14/23 00:00 Oxygen Flow Rate (L/min) 2 Oxygen Delivery Method Room Air Weight: 69.2 kg Body Mass Index (BMI) 28.8 Intake & Output: Intake and Output for Last 24 Hours 11/12/23 11/13/23 11/14/23 23:59 23:59 23:59 Intake Total 150 / 150 3308 / 3308 Balance 150 / 150 3308 / 3308 Lab / Micro Data 11/14/23 04:41 11/14/23 04:41 Labs: Laboratory Results - last 24 hr 11/13/23 19:05: WBC 6.5, RBC 2.48 L, Hgb 7.3 L, Hct 23.4 L, MCV 94.4, MCH 29.4, MCHC 31.2 L, RDW Std Deviation 44.1 H, RDW Coeff of Bailee 12.8, Plt Count 211, MPV 9.2, Immature Gran % (Auto) 0.500, Neut % (Auto) 59.1, Lymph % (Auto) 30.9, Randolph % (Auto) 8.1, Eos % (Auto) 1.1, Baso % (Auto) 0.3, Absolute Neuts (auto) 3.9, Absolute Lymphs (auto) 2.02, Nucleated RBC % 0, D-Dimer Quant (PE/DVT) 5.35 H*, Sodium 143, Potassium 2.7 L*, Chloride 123 H, Carbon Dioxide 13.0 L, Anion Gap 7, BUN 15, Creatinine 0.70, Estim Creat Clear Calc 50.04, Est GFR (MDRD) Af Amer 103, Est GFR (MDRD) Non-Af 85, BUN/Creatinine Ratio 21.4 H, Glucose 71 L, Calcium 5.6 L*, Phosphorus 2.1 L, Magnesium 1.0 L, Total Bilirubin 0.20, Direct Bilirubin 0.09, AST 10 L, ALT 8 L, Alkaline Phosphatase < 10 L, Troponin I High Sens 4, B-Natriuretic Peptide 41.9, Total Protein 4.5 L, Albumin 2.0 L, Globulin 2.5 11/13/23 19:41: Ethyl Alcohol 22.0 11/13/23 20:49: Lactic Acid 2.0, Antibody Screen NEGATIVE 11/13/23 22:10: Urine Color Yellow, Urine Clarity Clear, Urine pH 6.0, Ur Specific [place] 1.010, Urine Protein Negative, Urine Glucose (UA) Normal, Urine Ketones Negative, Urine Occult Blood Negative, Urine Nitrite Positive H, Urine Bilirubin Negative, Urine Urobilinogen Normal, Ur Leukocyte Esterase 500 H, Urine RBC 0 SEEN, Urine WBC 5-10 SEEN, Ur Squamous Epith Cells 0-5 SEEN, Urine Bacteria 2+, Urine Mucus 0 SEEN 11/13/23 22:50: Troponin I High Sens 6 11/13/23 23:04: Procalcitonin 0.04 11/14/23 00:49: Lactic Acid 1.0 11/14/23 01:27: Troponin I High Sens 6 11/14/23 04:41: WBC 6.2, RBC 3.22 L, Hgb 9.6 L, Hct 30.5 L, MCV 94.7, MCH 29.8, MCHC 31.5 L, RDW Std Deviation 43.9, RDW Coeff of Bailee 12.7, Plt Count 251, MPV 9.0, Immature Gran % (Auto) 0.500, Neut % (Auto) 59.9, Lymph % (Auto) 29.6, Randolph % (Auto) 8.6, Eos % (Auto) 1.1, Baso % (Auto) 0.3, Absolute Neuts (auto) 3.7, Absolute Lymphs (auto) 1.83, Nucleated RBC % 0, Sodium 135 L, Potassium 4.8, Chloride 108 H, Carbon Dioxide 21.0, Anion Gap 6, BUN 16, Creatinine 0.88, Estim Creat Clear Calc 43.85, Est GFR (MDRD) Af Amer 79, Est GFR (MDRD) Non-Af 65, BUN/Creatinine Ratio 18.1, Glucose 106, Calcium 8.9, Magnesium 2.6, Iron 49 L, TIBC 277, Iron Saturation 17.7, Ferritin 78, Total Bilirubin 0.30, AST 9 L, ALT 10 L, Alkaline Phosphatase 67, Troponin I High Sens 6, Total Protein 6.2 L, Albumin 2.6 L, Globulin 3.6, Albumin/Globulin Ratio 0.7 L, Vitamin B12 359, Folate 9.30 Micro: Microbiology 11/13/23 22:10 Urine, Clean Catch Urine Culture - Preliminary 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 11/13/23 23:05 Mucosa - Nasopharyngeal Respiratory Panel (PCR) - Final 11/13/23 23:05 Mucosa - Nasopharyngeal Coronavirus COVID-19 PCR - Final 11/13/23 22:10 Urine, Clean Catch Streptococcus pneumoniae Antigen (M - Final 11/13/23 22:10 Urine, Clean Catch Legionella Antigen - Final 11/13/23 20:20 Stool Stool Occult Blood (NIDHI) - Final ABG Data ABG results: ABG 11/13/23 20:50 Specimen Type ART Sample Site R Radial pH 7.34 L Bicarbonate Actual 17.6 L Total CO2 19 Base Excess -8 L O2 Saturation 99 O2 % 3.0 ABG pCO2 32.5 L ABG pO2 122 H Cole Test Positive O2 Delivery Device Cannula Vent Mode Not entered Radiography Diagnostic Testing: Radiology Impression Brain CT 11/13/23 19:20 IMPRESSION: Mild atrophy and periventricular white matter ischemic change. No acute bleed. If concern for acute infarct MRI recommended Electronically Signed: Juan Galan MD at 20:38 EDT Reading Location ID and State: [facility] / [place] Tel , Service support , Chest X-Ray 11/13/23 19:30 IMPRESSION: No acute cardiopulmonary pathology Electronically Signed: Juan Galan MD at 20:45 EDT , Abdomen/Pelvis CT 11/13/23 20:15 IMPRESSION: Narrowed colonic segment at the level of the distal descending and sigmoid of uncertain clinical significance possibly due to chronic stricture due to inflammatory bowel disease. No evidence for small bowel obstruction Incidental finding of fluid in the cul-de-sac of uncertain etiology and clinical significance Multiple other findings as above Electronically Signed: Juan Galan MD at 21:31 EDT , Chest CTA 11/13/23 20:15 IMPRESSION: Mild bibasilar interstitial thickening and atelectasis within the dependent portion of the lower lobes. Old granulomatous disease on the right. No evidence for pulmonary embolus Electronically Signed: Juan Galan MD at 21:20 EDT , Echocardiogram 11/14/23 00:36 Interpretation Summary Normal LV size. Left ventricular systolic function is normal. The left ventricular ejection fraction is 70 %. Stage 1 diastolic dysfunction. Mild (1+) tricuspid valve insufficiency. Ordering Physician: Susan Costa Referring Physician: Juan Hassan Performed By: Roxane Daniel, RDCS, RVT Chest X-Ray 11/14/23 05:55 IMPRESSION: No radiographic evidence of acute cardiopulmonary disease. Electronically Signed: Adan Rice DO at 14:24 EDT , Head/Neck CTA 11/14/23 14:42 IMPRESSION: No acute intracranial pathology. Atherosclerotic calcifications at the carotid bulbs bilaterally and the proximal right internal carotid artery. No hemodynamically significant stenosis. Electronically Signed: Adan Rice DO at 16:06 EDT , Physical Exam Const alert, oriented x3, no apparent distress, healthy appearing and well nourished Constitutional Narrative: Overweight, very pleasant, elderly, white female, sitting up in bed with vascular ultrasound of the bedside doing lower extremity Dopplers, multiple family members at bedside and patient is joking intermittently HEENT head/scalp atraumatic and moist oral mucous membranes HEENT Narrative: Mallampati is 2, no thrush Head and Scalp: normocephalic Eyes PERRL, EOMs intact bilaterally and conjunctivae normal Eyes Narrative: No scleral icterus Neck no lymphadenopathy and supple Neck Narrative: Trachea midline, no thyroid enlargement Resp normal respiratory effort, no retractions, no use of accessory muscles and clear to auscultation bilaterally Cardio regular rate, regular rhythm, S1 normal heart sound, S2 normal heart sound, no murmurs, no rub, no gallops and no clicks GI normal to inspection, nondistended, normoactive bowel sounds, soft to palpation and non-tender Extremity no clubbing, cyanosis or edema Extremity Narrative: Pedal and radial pulses are 2+ Neuro oriented x3, moves all extremities and no focal motor deficits Speech: speech normal Psych affect normal Psych Narrative: Very pleasant, jovial, interacts appropriately Assessment & Plan Assessment/Plan (1) Hypotension: (2) Hypocalcemia: (3) Anemia: (4) Hypomagnesemia: (5) Acute hypokalemia: (6) Syncope and collapse: (7) Metabolic acidosis: (8) UTI (urinary tract infection): (9) Elevated d-dimer: PLAN: Plan Syncope -Etiology is unclear -Troponin negative x 2 -Patient was found to be hypotensive during the event -Check MRI -Check CTA of the head neck -Check EEG -Echocardiogram performed and shows EF with diastolic dysfunction stage I and no other acute findings -Will need event monitor at discharge -Neurology has evaluated the patient and is unclear exactly on the event but feels that it is most likely related to her blood pressure--> I agree but I am unclear on what caused her blood pressure to drop Acute hypokalemia -Replaced -Resolved Acute hypomagnesemia -Replaced -Resolved Acute hypocalcemia -Resolved Metabolic acidosis -Non-anion gap -Etiology is completely unclear -It was hyperchloremic at the time but I would not think that an elevated chloride should make her bicarb dropped to 13 -Resolved at this time -Blood gas did showed mild acidosis Anemia -Hemoglobin on presentation was in the sevens -Repeat this morning is 9.3 -No signs of acute bleeding next-baseline hemoglobin is not clear at this time -Repeat CBC in a.m. Elevated D-dimer -CTA of the chest is negative -Check lower extremity Dopplers Gram-negative UTI -UA was suggestive of infection -Urine cultures pending -Start ceftriaxone Essential hypertension -Will continue to hold home antihypertensives and reassess tomorrow -As needed hydralazine for systolic blood pressure greater than 140 Hyperlipidemia -Continue home statin Chronic low back pain/lumbar radiculopathy -Continue home Lyrica -Continue home amitriptyline Restless leg syndrome -Continue home ropinirole DVT prophylaxis -Start enoxaparin 40 mg daily CODE STATUS -Full code Charges/Coding Visit Charges Inpatient E&M: [address] [facility] L3
[2023-11-14] MEDS: Calcium Carb/Vitamin D 1 TABLET Tablet PO (17:29)
[2023-11-14] MEDS: Enoxaparin 40 MG/0.4 ML Syringe SC (21:07)
[2023-11-14] MEDS: 0.9% Saline Lock 10 ML Syringe IV (21:12)
[2023-11-15 02:00] VITALS: BP 111/62; PULSE 91; RESP 16; TEMP 36.8; O2SAT 96
[2023-11-15 03:00] VITALS: BP 111/62; PULSE 91; RESP 16; TEMP 36.8; O2SAT 96
[2023-11-15 05:00] VITALS: BMI 29.0
[2023-11-15 06:36] LABS: Hematocrit 27.5 % (37-47); Hemoglobin 8.8 g/dL (12.0-15.0); Mean Corpuscular Hgb 29.8 pg (27.0-32.0); Mean Corpuscular Volume 93.2 fL (81-99); Mean Platelet Vol. 9.5 fl (6.2-12.0); Platelet Count 234 K/mm3 (150-450); Red Blood Count 2.95 M/mm3 (4.2-5.4); White Blood Count 6.3 K/mm3 (4.4-11.0)
[2023-11-15 07:06] LABS: Anion Gap 6 (5-15); BUN 11 mg/dL (7-18); BUN/Creat Ratio 13.8 RATIO (10-20); Calcium,Total 9.1 mg/dL (8.5-10.1); Chloride 109 mmol/L (98-107); EST Glomerular Filtration Rate 73 mL/min (>60); Est Glom Filt Rate - Afr Amer 88 mL/min (>60); Estimated Creatinine Clearance 48.44 ml/min; Glucose 82 mg/dL (74-106); Potassium 4.3 mmol/L (3.5-5.1); Sodium Level 136 mmol/L (136-145)
[2023-11-15 07:17] VITALS: PULSE 78; RESP 16; O2SAT 96
[2023-11-15] MEDS: Budesonide Respules 0.5 MG/2 ML AMPUL.NEB. INHALATION (07:17)
[2023-11-15 09:00] VITALS: BP 109/59; PULSE 65; RESP 16; TEMP 36.1; O2SAT 96
[2023-11-15] MEDS: Enoxaparin 40 MG/0.4 ML Syringe SC (09:55)
[2023-11-15] MEDS: Ceftriaxone 1 GM/50 ML BAG IV (10:09)
--- NOTE | 2023-11-15 11:30 | DS.PCM_ITS ---
Providers Date of Admission: 11/13/23 Date of Discharge: 11/15/23 Primary Care Physician: Dr. Juan Hassan MD Consultations 11/14/23 08:46 Neurology [Consult: Tele-Neurology] Routine Consulting Provider: [facility] Reason for Consult: altered mental status EMERGENT Consult: No MD Notified: Yes Date Notified: 11/14/23 Time Notified: 09:07 Method of Notification: [facility] Service Nursing Unit Staff Notify [facility] of Tele-Neurology Consult: Yes Reason For Visit: SYNCOPE, ELECTROLYTE DISTURBANCES, HYPOTENSION Diagnosis Discharge Diagnosis (1) Hypotension: Status: Acute Code(s): I95.9 - Hypotension, unspecified (2) Hypocalcemia: Status: Acute Code(s): E83.51 - Hypocalcemia (3) Anemia: Status: Acute Code(s): D64.9 - Anemia, unspecified (4) Hypomagnesemia: Status: Acute Code(s): E83.42 - Hypomagnesemia (5) Acute hypokalemia: Status: Acute Code(s): E87.6 - Hypokalemia (6) Syncope and collapse: Status: Acute Code(s): R55 - Syncope and collapse (7) Metabolic acidosis: Status: Acute Code(s): E87.20 - Acidosis, unspecified (8) UTI (urinary tract infection): Status: Acute Code(s): N39.0 - Urinary tract infection, site not specified (9) Elevated d-dimer: Status: Acute Code(s): R79.89 - Other specified abnormal findings of blood chemistry Medications at Discharge Home Medications amitriptyline 75 mg tablet 75 mg PO QHS sleep 02/26/13 aspirin 81 mg chewable tablet 81 mg PO DAILY@0800 heart health 02/26/13 calcium carbonate 600 mg-vitamin D3 20 mcg (800 unit) tablet 600 mg PO DINNER supplement 02/26/13 triamterene 37.5 mg-hydrochlorothiazide 25 mg tablet (Maxzide-25mg) 1 tab PO DAILY diuretic 02/26/13 pravastatin 20 mg tablet 20 mg PO QHS cholesterol 12/05/19 ropinirole 0.5 mg tablet 3 mg PO DINNER restless legs 12/05/19 lisinopril 20 mg tablet 20 mg PO DAILY 03/31/21 potassium chloride 20 mEq tablet,extended release 20 meq PO BID 11/13/23 spironolactone 50 mg tablet 50 mg PO DAILY 11/13/23 cephalexin 500 mg capsule 500 mg PO BID #10 caps 11/15/23 Hospital Course Procedures 2-D Echocardiogram, Electroencephalogram, EKG and - (CT brain/CTA head and neck/MRI brain/CTA chest/CT abdomen and pelvis/lower extremity Dopplers) Summary of Care Provided Minutes Spent on Discharge: 39 Hospital Course: Patient is an 82-year-old white female who presented to the emergency department at [facility] on 11/14/2019 for after a syncopal episode that she suffered at home while she was sitting with her family at the dinner table finishing dinner and drinking a rum and coke. The event was sudden and the patient was minimally responsive per family for about 20 minutes which resulted in him calling EMS. She did have a decrease in her blood pressure with systolics in the 60s to 70s per the EMS. And route to the hospital her mental status started to improve and she was alert and oriented at the time of arrival. She complained of some mild dysuria on presentation but no other symptoms and she been feeling well other than the dysuria. She has had 1 previous episode of this remotely. She did report the 2 days prior to presentation she had some increased fatigue and malaise as well as some decreased appetite. Vital signs the emergency department showed a temperature of 97.8, heart rate 75, blood pressure initially 83/48 with a repeat of 115/85, respiratory was 18 oxygen saturation was 87% on room air. The patient is not oxygen dependent at baseline and has no known lung disease. Her CBC showed a normal white count with no left shift and normal platelets however her hemoglobin was 7.3 with an unknown baseline. Repeat hemoglobin on the a.m. of 11/14/2023 was 9.6. The anemia was normocytic. Her D-dimer was markedly elevated at 5.35. ABG showed a pH of 7.34 with a pCO2 of 32.5 and a pO2 of 122.Her chemistries were markedly abnormal with normal sodium but she had a potassium of 2.7, bicarb of 13, normal renal function, glucose of 71, calcium of 5.6, phosphorus of 2.1 and magnesium of 1.0. Lactic acid was normal x 2 at 2 and 1 respectively. Liver functions were unremarkable. Procalcitonin was normal. B12 and folate were obtained and found to be within normal limits. EKG was unremarkable. Chest x-ray showed no acute findings. CT of the abdomen pelvis showed a narrowed colonic segment at the level of the distal descending and sigmoid colon of uncertain significance and no other acute findings. CT of the chest showed mild bibasilar interstitial thickening and atelectasis and old granulomatous disease but no other findings. Chest x-ray was unremarkable. She was admitted to the medical floor. All her electrolyte abnormalities were repleted and completely normalized including her serum bicarb by the next morning. CTA of the head and neck was unremarkable other than some atherosclerotic calcifications at the carotid bulbs bilaterally and proximal right internal carotid artery with no hemodynamically significant stenosis. Echocardiogram showed EF of 70% with stage I diastolic dysfunction. Since her D-dimer was markedly elevated we obtained bilateral lower extremity Dopplers which were negative for any acute DVT. EEG was unremarkable. MRI of the brain shows chronic microvascular ischemic changes but no acute intracranial abnormalities. Neurology evaluated the patient and given negative workup we have revealed no explainable etiology for the above events. She was found to have a urinary tract infection with Klebsiella pneumonia and was treated with antibiotics. She will be discharged with another 5 days to complete a total of a 7-day course. She will also go home with an event monitor however I highly suspect this may be a vasovagal response but cannot explain the prolonged period of altered mental status following. I have asked her to follow-up with her primary care physician within the next 2 weeks. All electrolyte abnormalities had been corrected prior to discharge. Discharge diagnoses: Syncope ? Vasovagal event Acute hypokalemia-resolved Acute hypomagnesemia-resolved Acute hypocalcemia-resolved Non-anion gap metabolic acidosis-resolved Anemia-stable Elevated V-[id number]-[id number] workup Klebsiella pneumoniae UTI Essential hypertension Hyperlipidemia Chronic low back pain Lumbar radiculopathy Restless leg syndrome Physical Exam Narrative Patient feels well. No further events. No telemetry abnormality. Anxious to go home. Const alert, oriented x3, no apparent distress, no limitations, healthy appearing and well nourished Constitutional Narrative: Overweight, very pleasant, elderly, white female, sitting up in bed, at the bedside, watching television, appears comfortable, nontoxic General Appearance: cooperative, comfortable, well kempt and well developed Exam Limitations: no limitations Nutritional Appearance: overweight HEENT normocephalic, head/scalp atraumatic, hearing grossly normal bilaterally and moist oral mucous membranes HEENT Narrative: Mallampati 2, no thrush Eyes PERRL, EOMs intact bilaterally and conjunctivae normal Eyes Narrative: No scleral icterus Neck no lymphadenopathy and supple Neck Narrative: Trachea midline, no thyroid enlargement Resp normal respiratory effort, no retractions, no use of accessory muscles and clear to auscultation bilaterally Cardio regular rate, regular rhythm, S1 normal heart sound, S2 normal heart sound, no murmurs, no rub, no gallops and no clicks GI normal to inspection, nondistended, normoactive bowel sounds, soft to palpation and non-tender Extremity no clubbing, cyanosis or edema Extremity Narrative: Pedal and radial pulses are 2+ Skin no wounds, skin turgor normal and no jaundice Skin Narrative: Very few scattered ecchymotic changes on the arms Neuro oriented x3, CN's II-XII intact bilaterally, moves all extremities and no focal motor deficits Speech: speech normal Psych affect normal Psych Narrative: Very pleasant, answers questions, interacts appropriately Weight / BMI Weight Weight: 69.8 kg Body Mass Index (BMI) 29.0 ABG / Lab / Microbiology Data 11/15/23 05:05 11/15/23 05:05 Laboratory: Laboratory Results - last 24 hr 11/15/23 05:05: WBC 6.3, RBC 2.95 L, Hgb 8.8 L, Hct 27.5 L, MCV 93.2, MCH 29.8, MCHC 32.0, RDW Std Deviation 44.0 H, RDW Coeff of Bailee 13.0, Plt Count 234, MPV 9.5, Sodium 136, Potassium 4.3, Chloride 109 H, Carbon Dioxide 21.0, Anion Gap 6, BUN 11, Creatinine 0.80, Estim Creat Clear Calc 48.44, Est GFR (MDRD) Af Amer 88, Est GFR (MDRD) Non-Af 73, BUN/Creatinine Ratio 13.8, Glucose 82, Calcium 9.1 Microbiology: Microbiology 11/13/23 22:10 Urine, Clean Catch Urine Culture - Final Klebsiella pneumoniae sp pneum 11/13/23 23:05 Mucosa - Nasopharyngeal Respiratory Panel (PCR) - Final 11/13/23 23:05 Mucosa - Nasopharyngeal Coronavirus COVID-19 PCR - Final 11/13/23 22:10 Urine, Clean Catch Streptococcus pneumoniae Antigen (M - Final 11/13/23 22:10 Urine, Clean Catch Legionella Antigen - Final 11/13/23 20:20 Stool Stool Occult Blood (NIDHI) - Final Radiography Diagnostic Testing: Radiology Impression Echocardiogram 11/14/23 00:36 Interpretation Summary Normal LV size. Left ventricular systolic function is normal. The left ventricular ejection fraction is 70 %. Stage 1 diastolic dysfunction. Mild (1+) tricuspid valve insufficiency. Ordering Physician: Susan Costa Referring Physician: Juan Hassan Performed By: Roxane Daniel, FILIBERTOCS, RVT Chest X-Ray 11/14/23 05:55 IMPRESSION: No radiographic evidence of acute cardiopulmonary disease. Electronically Signed: Adan Rice DO at 14:24 EDT , Brain MRI 11/14/23 14:08 IMPRESSION: Chronic microvascular ischemic changes. No intracranial hemorrhage, acute infarct, or space occupying lesion seen on this noncontrast MRI of the brain. Electronically Signed: Mele Rodriguez MD at 20:34 EDT , Head/Neck CTA 11/14/23 14:42 IMPRESSION: No acute intracranial pathology. Atherosclerotic calcifications at the carotid bulbs bilaterally and the proximal right internal carotid artery. No hemodynamically significant stenosis. Electronically Signed: Adan Rice DO at 16:06 EDT , D/C Instructions Discharge Diet: Low fat / Low cholesterol Discharge Activity: Return to Normal Activity Meaningful Use Info Meaningful Use Meaningful Use Diagnoses (Choose all that apply): None applicable Ischemic Stroke Statin Dosing Therapy Reference: STATIN DOSE THERAPY REFERENCE: * Patients > 75 years receive moderate or high dose statin therapy. * Patients 75 years or YOUNGER should receive HIGH intensity statin dose unless contraindicated. You will be required to document reason for non-treatment if statin daily dose does not meet guidelines. HIGH DOSE STATIN THERAPY DAILY Atorvastatin > than or = to 40 mg Rosuvastatin > than or = to 20 mg Amlodipine + Atorvastatin > than or = to 2.5/40 mg Ezetimibe + Simvastatin 10/80 mg Simvastatin 80mg Discharge Plan Admission Admit Date/Time: 11/13/23 21:49 Primary Reason for Your Visit: syncope Attending Provider: Tova Simon Primary Care Provider: Juan Hassan Consulting Providers: Susan Costa; Roe Cobb; Katina Jacobson; Sujatha Cooper; Clifton Peck; Kenyon Espitia; Araceli Nunes; FEDE AWAN; Miley Frye; Eve Boyer; Zaire Martínez; Radha Abad; Aly Vergara; Kassidy Rodriguez; Magalys Sepulveda; Willam John; Lynsey Linda; Pietro Hutchinson; Isiah Arias; Johann Byrnes; Gilbert Hogue; Neetu Morse; Dakotah Lay; Shubham Anderson; Sal Barros; Linda Simon; Gerardo Ocampo Discharge Orders/Prescriptions Prescriptions: New cephalexin 500 mg capsule 500 mg PO BID Qty: 10 0RF Continued amitriptyline 75 MG tablet 75 mg PO QHS triamterene-hydrochlorothiazid [Maxzide-25mg] 1 EACH tablet 1 tab PO DAILY aspirin 81 MG tablet,chewable 81 mg PO DAILY@0800 calcium carbonate-vitamin D3 1 EACH tablet 600 mg PO DINNER ropinirole 0.5 MG tablet 3 mg PO DINNER pravastatin 20 MG tablet 20 mg PO QHS lisinopril 20 mg Tablet 20 mg PO DAILY spironolactone 50 mg tablet 50 mg PO DAILY potassium chloride 20 mEq tablet extended release 20 meq PO BID Other Ambulatory Orders: 30 Day Event Recorder Preventi (Urgent) Timeframe: 1 Day Facility: [facility] - Location: Cardiovascular Services Ordered By: Dr. Tova Simon Referrals / Follow Up: Juan Hassan MD [Primary Care Provider] - Within 2 Weeks Disposition Disposition (needs filled in before D/C Order can be placed): Home, Self Care Charges/Coding Visit Charges Inpatient E&M: 11601 Disch Hosp >30min
[2023-11-17 08:17] LABS: Ionized Calcium 4.83 mg/dL (4.36-5.20)
[2023-11-17 08:21] LABS: Ionized Calcium 5.18 mg/dL (4.36-5.20)
== END 2023-11-15 13:43 | disposition home or self-care (01) | DRG 312 ==
LOC: ED 22:24 → PCU 11-14 06:56
PROVIDERS: Nurse Practitioner; Admitting Provider Family Medicine; Emergency Provider Emergency Medicine; PCP Family Medicine; Visit Provider Internal Medicine
DX: R55 Syncope and collapse (principal); E87.20 Acidosis, unspecified; N39.0 Urinary tract infection, site not specified; E83.51 Hypocalcemia; I95.9 Hypotension, unspecified; I10 Essential (primary) hypertension; G25.81 Restless legs syndrome; D64.9 Anemia, unspecified; E87.6 Hypokalemia; E78.5 Hyperlipidemia, unspecified; E83.42 Hypomagnesemia; F41.8 Other specified anxiety disorders; M54.10 Radiculopathy, site unspecified; R09.02 Hypoxemia; G89.29 Other chronic pain; Z79.899 Other long term (current) drug therapy; Z79.82 Long term (current) use of aspirin; Z90.49 Acquired absence of other specified parts of digestive tract; R79.1 Abnormal coagulation profile; B96.1 Klebsiella pneumoniae [K. pneumoniae] as the cause of diseases classified elsewhere
CPT/HCPCS: 36415; 36600; 70450; 70496; 70498; 70551; 71045; 71275; 74177; 80048; 80053; 80076; 81001; 82077; 82274; 82330; 82607; 82728; 82746; 82803; 83540; 83550; 83605; 83735; 83880; 84100; 84145; 84484; 85025; 85027; 85379; 86850; 86900; 86901; 87077; 87086; 87088; 87186; 87449; 87633; 87635; 93005; 93306; 93970; 94640; 94668; 95819; 97161; 97802; 99284; J7030; Q9967; A4216; J0612

== ENCOUNTER 2024-12-21 19:47 | Observation (INO) | payer MEDICARE, OTHER, SELFPAY ==
[2024-12-21] VITALS (7 sets, daily range): BP systolic 99–152; BP diastolic 41–89; PULSE 58–88; RESP 12–18; TEMP 36.4–36.6; O2SAT 93–100; BMI 25.8; BMI 25.4
--- NOTE | 2024-12-21 19:54 | EKG12_ITS ---
Test Reason : DYSRHYTHMIA Blood Pressure : */* mmHG Vent. Rate : 57 BPM Atrial Rate : 57 BPM P-R Int : 166 ms QRS Dur : 84 ms QT Int : 448 ms P-R-T Axes : 60 20 46 degrees QTcB Int : 436 ms Sinus bradycardia Otherwise normal ECG Confirmed by YARELIS RANDALL, LOW ([id number]), manuscript editor ALISSON COLUNGA ([id number]) on 12/22/2024 10:55:39 AM Referred By: LAILA Confirmed By: LOW SANTOYO MD
--- NOTE | 2024-12-21 19:54 | EKG12_ITS ---
Test Reason : DYSRHYTHMIA Blood Pressure : */* mmHG Vent. Rate : 57 BPM Atrial Rate : 57 BPM P-R Int : 166 ms QRS Dur : 84 ms QT Int : 448 ms P-R-T Axes : 60 20 46 degrees QTcB Int : 436 ms Sinus bradycardia Otherwise normal ECG Confirmed by YARELIS RANDALL, LOW ([id number]), editorial assistant ALISSON COLUNGA ([id number]) on 12/22/2024 10:55:39 AM Referred By: LAILA Confirmed By: LOW SANTOYO MD
--- NOTE | 2024-12-21 20:05 | CT_ITS ---
PROCEDURE: ABDOMEN/PELVIS W IV CONT ONLY 12/21/2024 REASON FOR EXAM: LOWER ABD PAIN TECHNIQUE: Procedure Code: CTABDPELIV Modality: CT Procedure: ABDOMEN/PELVIS W IV CONT ONLY Coronal and Sagittal reconstruction series were provided. CONTRAST: Isovue 300 VOLUME: 90 mL One or more dose reduction techniques were used (e.g., Automated exposure control, adjustment of the mA and/or kV according to patient size, use of iterative reconstruction technique. RADIATION DOSE SUMMARY: CTDlvol: 14.02 mGy DLP: 665.29 mGycm COMPARISON: None FINDINGS: Lung bases: There is dependent atelectasis at the lung bases. Atherosclerotic coronary calcifications are present. Calcified granulomata are noted in the right lower lung zone. There may be tiny noncalcified nodules noted although respiratory motion and dependent atelectasis limits. Liver: The liver is grossly unremarkable. Gallbladder: The gallbladder is surgically absent. There is likely compensatory common and intrahepatic biliary ductal dilatation. Spleen: Unremarkable Pancreas: The pancreas is atrophic but otherwise unremarkable. Adrenals: Unremarkable Kidneys: There is no hydronephrosis or nephrolithiasis. Bladder: Unremarkable. Reproductive Organs: Unremarkable Bowel: There is a moderate amount colonic stool. No evidence of bowel obstruction. Appendix: The appendix is not definitively seen. There are no inflammatory changes in the right lower quadrant to suggest acute appendicitis. Lymph nodes: There is no intra-abdominal adenopathy. Vasculature: Atherosclerotic aortoiliac calcifications are present. Peritoneum / Retroperitoneum: No free air or free fluid. Bones: There is mild levoconvex curvature of the lumbar spine. Fusion hardware is noted at L3 through L5. Degenerative disc space narrowing is noted at L5-S1 and there is grade 1 anterolisthesis of L4 on L5 and L5 on S1. A spinal stimulator is present. There are calcifications noted at the hamstring origins bilaterally, potentially related to chronic stress/old injury. CT/Abdomen/Pelvis W IV Cont ONLY IMPRESSION: No definite explanation for the patient's lower abdominal pain. There is a [id number] amount of stool in sigmoid colonic loops. No defi nite bowel obstruction however. Other details as above. Reading Location[facility]
--- NOTE | 2024-12-21 20:05 | CT_ITS ---
PROCEDURE: ABDOMEN/PELVIS W IV CONT ONLY 12/21/2024 REASON FOR EXAM: LOWER ABD PAIN TECHNIQUE: Procedure Code: CTABDPELIV Modality: CT Procedure: ABDOMEN/PELVIS W IV CONT ONLY Coronal and Sagittal reconstruction series were provided. CONTRAST: Isovue 300 VOLUME: 90 mL One or more dose reduction techniques were used (e.g., Automated exposure control, adjustment of the mA and/or kV according to patient size, use of iterative reconstruction technique. RADIATION DOSE SUMMARY: CTDlvol: 14.02 mGy DLP: 665.29 mGycm COMPARISON: None FINDINGS: Lung bases: There is dependent atelectasis at the lung bases. Atherosclerotic coronary calcifications are present. Calcified granulomata are noted in the right lower lung zone. There may be tiny noncalcified nodules noted although respiratory motion and dependent atelectasis limits. Liver: The liver is grossly unremarkable. Gallbladder: The gallbladder is surgically absent. There is likely compensatory common and intrahepatic biliary ductal dilatation. Spleen: Unremarkable Pancreas: The pancreas is atrophic but otherwise unremarkable. Adrenals: Unremarkable Kidneys: There is no hydronephrosis or nephrolithiasis. Bladder: Unremarkable. Reproductive Organs: Unremarkable Bowel: There is a moderate amount colonic stool. No evidence of bowel obstruction. Appendix: The appendix is not definitively seen. There are no inflammatory changes in the right lower quadrant to suggest acute appendicitis. Lymph nodes: There is no intra-abdominal adenopathy. Vasculature: Atherosclerotic aortoiliac calcifications are present. Peritoneum / Retroperitoneum: No free air or free fluid. Bones: There is mild levoconvex curvature of the lumbar spine. Fusion hardware is noted at L3 through L5. Degenerative disc space narrowing is noted at L5-S1 and there is grade 1 anterolisthesis of L4 on L5 and L5 on S1. A spinal stimulator is present. There are calcifications noted at the hamstring origins bilaterally, potentially related to chronic stress/old injury. CT/Abdomen/Pelvis W IV Cont ONLY IMPRESSION: No definite explanation for the patient's lower abdominal pain. There is a [id number]-[id number] amount of stool in sigmoid colonic loops. No defi nite bowel obstruction however. Other details as above. Reading [facility]
--- NOTE | 2024-12-21 20:09 | EX.ED.DYSGE1 ---
HPI History of Present Illness Chief Complaint: Syncope Detail of Chief Complaint: Syncopal event at home. Informant: patient and family ( and daughter at bedside.) Onset/Context/Timing Onset: Today Context: Sudden Onset Timing: Intermittent Current Severity: Mild Maximum Severity: Severe Narrative Narrative: 84-year-old female history of anemia, heart murmur, back surgery as a spinal stimulator. Was in her normal state of health. No recent illness. Tonight passed out at home. She passed on the chair they lowered her to the ground. Her daughter is in the medical field. Gave her 2 rescue breaths as she was not breathing and she could not palpate a pulse and the patient came to. She required no CPR. Daughter said this lasted maybe 5 minutes. Prior to the event she denied any headache, chest pain, shortness of breath. Now she states she does have some abdominal pain. Denies recent abdominal pain. No dysuria. No constipation or melena. This all occurred primarily around 7 PM. She has had syncopal events before but nothing to this degree. No known cardiac history or prior cardiac surgery. Prior similar symptoms: No Recent Illness/Hospitalization: No PFSH PFSH Medical History Elevated d-dimer Chronic anemia HLD (hyperlipidemia) HTN (hypertension) Back pain with radiculopathy Anxiety and depression RLS (restless legs syndrome) BPPV (benign paroxysmal positional vertigo) Home Medications ?Medication ?Instructions ?Recorded ?Last Taken ?Type aspirin 81 mg chewable tablet 81 mg PO DAILY@0800 heart health 02/26/13 12/05/19 History calcium 600 mg (as 600 mg PO DINNER supplement 02/26/13 12/04/19 History carbonate)-vitamin D3 20 mcg (800 unit) tablet pravastatin 20 mg tablet 20 mg PO QHS cholesterol 12/05/19 12/04/19 History lisinopril 20 mg tablet 20 mg PO DAILY 03/31/21 Unknown History potassium chloride 20 mEq 20 meq PO BID 11/13/23 Unknown History tablet,extended release spironolactone 50 mg tablet 50 mg PO DAILY 11/13/23 Unknown History cholecalciferol (vitamin D3) 25 25 mcg PO DAILY 12/21/24 Unknown History mcg (1,000 unit) capsule magnesium 200 mg tablet 400 mg PO DAILY 12/21/24 Unknown History ropinirole 4 mg tablet 4 mg PO QHS 12/21/24 Unknown History Allergy/AdvReac Type Severity Reaction Status Date / Time Sulfa (Sulfonamide Allergy Swelling Verified 12/21/24 19:49 Antibiotics) acetaminophen (From Vicodin) AdvReac Vomiting Verified 12/21/24 19:49 hydrocodone bitartrate (From AdvReac Vomiting Verified 12/21/24 19:49 Vicodin) promethazine HCl (From AdvReac Vomiting Verified 12/21/24 19:49 Phenergan) Family History Mother Heart disease Father Heart disease Surgical History S/P cholecystectomy Social History household members: spouse Smoking Status: Never smoker alcohol intake: never substance use type: does not use ROS ROS ED ROS Narrative Denies recent illness. Constitutional Constitutional ED: Denies chills or fever(s) Eyes Eyes: Denies blurry vision Cardiovascular Cardiovascular: Denies chest pain Respiratory/Chest Respiratory/Chest: Denies cough or dyspnea Gastrointestinal Gastrointestinal: Reports abdominal pain and other Details: Abdominal pain after the syncopal event tonight. Genitourinary Genitourinary ED: Denies dysuria or hematuria Musculoskeletal Musculoskeletal: Denies arthralgias Integumentary Denies abscess Neurologic Neurologic: Denies headache(s) Psychiatric Psychiatric: Denies anxiety Endocrine Endocrinology: Denies cold intolerance Hematologic/Lymphatic Hematologic/Lymphatic: Reports none Allergic/Immunologic Allergic/Immunologic ED: Denies mouth swelling, tongue swelling or urticaria EXAM Physical Exam Narrative Exam Narrative: 84-year-old female sitting upright in bed. Blood pressure 99/47 daughter states she normally runs low like this. Patient is awake alert. and daughter at bedside. H EENT exam pupils round react light. Moist rehemorrhage. No facial droop. No trauma to her face or scalp. Neck nontender. Back nontender. Lungs clear to auscultation bilaterally. Heart rate about 58 4/6 systolic ejection murmur with a history of a murmur. Chest wall and ribs nontender. Abdomen soft nondistended normal bowel sounds. Tender in the periumbilical and lower quadrants. No pulsatile mass. No peritoneal signs. No obstruction. Moving all 4 extremities. Normal ropewalk rope maker strength. Strong radial pulse. Dorsi plantarflexion intact. Calves nontender without edema or cords. Neurologically she is awake alert. Answering questions following commands. Const Vital Signs: 12/21/24 19:49 12/21/24 19:53 12/21/24 21:00 Temperature 97.7 F L Temperature Source Oral Pulse Rate 58 L 58 L 66 Respiratory Rate 18 14 12 Blood Pressure 99/47 L 101/48 L 106/47 L Blood Pressure Mean 64 65 66 Pulse Ox 95 93 97 Oxygen Delivery Method Room Air Room Air Room Air MDM MDM MDM Narrative Medical decision making narrative: 84-year-old with a syncopal event at home that required 2 rescue breaths and she came to prior to initiating any CPR. On exam she has borderline hypotension with a blood pressure around 100. Typically blood pressure runs low according to her daughter. She also has lower abdominal pain. Differential could include dysrhythmia, MT, sick sinus syndrome, intra-abdominal pathology versus other. Should be given a liter normal saline. Cardiac workup along with CT abdomen and abdominal labs. Patient given Zofran for nausea. Repeat exam around 9:15 PM patient doing well. Feeling better. We went over her test results do not have a specific cause of her syncope. They are comfortable however given that she is 84 to admit her for syncope of uncertain etiology for further evaluation. At the hospitalist on page. Currently she is resting comfortably. Vital signs are stable. History & Record Review Discussion w/independent historian: Patient and Family Additional record(s) reviewed:: Prior inpatient record, Prior outpatient record, Prior ED visit and Prior labs Lab Data Attestation: I reviewed the patient's lab results. Lab results narrative: CBC shows a white count 10.7. H&H of 11.0 and 34 consistent with baseline anemia. Platelets 254. Chemistries show a gap of 12. Normal BUN and creatinine 18 and 0.9. Glucose 101. Lactic acid normal at 1.7. Urinalysis negative. No nitrates. Liver enzymes unremarkable. Lipase normal at 17. CT abdomen no acute process. Chronic changes. Labs: Laboratory Results - last 24 hr 12/21/24 12/21/24 12/21/24 19:50 20:00 20:34 WBC 10.7 RBC 3.76 L Hgb 11.0 L Hct 34.0 L MCV 90.4 MCH 29.3 MCHC 32.4 RDW Std Deviation 47.8 H RDW Coeff of Bailee 14.5 Plt Count 254 MPV 9.6 Immature Gran % (Auto) 0.400 Neut % (Auto) 57.0 Lymph % (Auto) 34.6 [place] % (Auto) 7.3 Eos % (Auto) 0.4 Baso % (Auto) 0.3 Absolute Neuts (auto) 6.1 Absolute Lymphs (auto) 3.68 Nucleated RBC % 0 Sodium 134 Potassium 3.5 Chloride 99 Carbon Dioxide 23.1 Anion Gap 12 BUN 18 Creatinine 0.98 Estim Creat Clear Calc 36.10 L Est GFR (MDRD) Non-Af 57 L BUN/Creatinine Ratio 18.3 Glucose 101 H Lactic Acid 1.7 Calcium 9.2 Total Bilirubin 0.47 Direct Bilirubin 0.21 AST 21 ALT 7 Alkaline Phosphatase 77 Total Protein 6.4 Albumin 3.6 Globulin 2.7 Lipase 17 Urine Color Yellow Urine Clarity Clear Urine pH 6.5 Ur Specific [place] 1.015 Urine Protein 30 H Urine Glucose (UA) Normal Urine Ketones Negative Urine Occult Blood 10 H Urine Nitrite Negative Urine Bilirubin Negative Urine Urobilinogen Normal Ur Leukocyte Esterase Negative Radiography Chest X-Ray - ED: 2 View, Read by ED Physician, Read by Radiologist, Normal, Heart, Lungs, Mediastinum, Bony Structures, No Acute Disease and Chronic Changes Diagnostic Testing: Clinical Impression(s) from Imaging Studies Abdomen/Pelvis CT 12/21/24 20:05 IMPRESSION: No definite explanation for the patient's lower abdominal pain. There is a [id number] amount of stool in sigmoid colonic loops. No definite bowel obstruction however. Other details as above. Reading Location: [facility] Chest X-Ray 12/21/24 20:10 IMPRESSION: No acute abnormality. Reading Location: [facility] Chest x-ray, 2 views, AP lateral, interpreted by by myself and the radiologist shows no acute abnormality. Normal cardiac silhouette. Normal mediastinum. Spine stimulator. Unremarkable lung acuña. Chronic changes. No acute process. Rhythm Strip Rhythm Strip: Sinus bradycardia Rate: 57 Ectopy: None EKG Initial EKG: Attestation: I personally reviewed and interpreted this EKG as follows: Interpretation: Sinus Bradycardia Comments: Sinus bradycardia. Rate of 57. No acute signs of MT or ischemia. Discharge Plan Dx/Rx/DC Orders Clinical Impression: Syncope, Chronic anemia, History of spinal stenosis Disposition Disposition: Acute Care Hospital [facility]
[2024-12-21 20:10] LABS: Hematocrit 34.0 % (37-47); Hemoglobin 11.0 g/dL (12.0-15.0); Immature Granulocytes Count 0.040 X10^3/uL (0.0-0.0); Mean Corp Hgb Conc 32.4 g/dL (32-36); Mean Corpuscular Volume 90.4 fL (81-99); Mean Platelet Vol. 9.6 fl (6.2-12.0); NRBC Flagged by Analyzer 0 % (0-5); Platelet Count 254 K/mm3 (150-450); RBC Distribution Width CV 14.5 % (11.6-14.6); RBC Distribution Width SD 47.8 fl (35.1-43.9); Red Blood Count 3.76 M/mm3 (4.2-5.4); White Blood Count 10.7 K/mm3 (4.4-11.0)
--- NOTE | 2024-12-21 20:10 | RAD_ITS ---
PROCEDURE: CHEST PA AND LATERAL 12/21/2024 REASON FOR EXAM: SYNCOPE TECHNIQUE: Procedure Code: RADCXR Modality: DX Procedure: CHEST PA AND LATERAL COMPARISON: None FINDINGS: The lungs are hyperinflated. There is no focal consolidation, pneumothorax, or pleural effusion. The cardiomediastinal silhouette is unremarkable. Spinal stimulators overlie the thoracic spine. No acute osseous abnormality. RAD/Chest PA and Lateral IMPRESSION: No acute abnormality. [facility]
--- NOTE | 2024-12-21 20:10 | RAD_ITS ---
PROCEDURE: CHEST PA AND LATERAL 12/21/2024 REASON FOR EXAM: SYNCOPE TECHNIQUE: Procedure Code: RADCXR Modality: DX Procedure: CHEST PA AND LATERAL COMPARISON: None FINDINGS: The lungs are hyperinflated. There is no focal consolidation, pneumothorax, or pleural effusion. The cardiomediastinal silhouette is unremarkable. Spinal stimulators overlie the thoracic spine. No acute osseous abnormality. RAD/Chest PA and Lateral IMPRESSION: No acute abnormality. Reading [facility]
[2024-12-21] MEDS: 0.9% Normal Saline (1000mL) 1,000 ML 999 ML IV (20:26)
[2024-12-21 20:41] LABS: Mucous, Urine 0 SEEN /hpf (<or=2+)
[2024-12-21 21:06] LABS: Color, Urine Yellow (Yellow); Glucose, Dipstick Normal (Normal); Ketone-Dipstick Negative (Negative); Leukocyte Esterase-Dipstick Negative /ul (Negative); Nitrite-Dipstick Negative (Negative); Occult Blood-Urine 10 /ul (Negative); Protein-Dipstick 30 mg/dl (Negative); Specific Gravity, Urine 1.015 (1.002-1.030); Urine Bilirubin Dipstick Negative (Negative)
[2024-12-21 21:09] LABS: AST(SGOT) 21 U/L (<=31); Alanine Aminotransfer ALT/SGPT 7 U/L (<=34); Albumin, Serum 3.6 g/dL (3.4-4.8); Alkaline Phosphatase 77 U/L (35-104); Anion Gap 12 (5-15); BUN 18 mg/dL (4-19); BUN/Creat Ratio 18.3 RATIO (10-20); Bilirubin, Direct 0.21 mg/dL (0.00-0.30); Calcium,Total 9.2 mg/dL (7.6-11.0); Carbon Dioxide 23.1 mmol/L (21.0-32.0); Chloride 99 mmol/L (98-108); Estimated Creatinine Clearance 36.10 ml/min (50-250); Globulin 2.7 g/dL (2.2-4.2); Glucose 101 mg/dL (70-99); Lipase 17 U/L (13-75); Potassium 3.5 mmol/L (3.3-5.1)
--- NOTE | 2024-12-21 21:18 | PCM.HP.STD ---
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 She had been feeling well until the evening of the day of admission when she passed out in her chair. Family said they noted she stopped breathing and per daughter she did not have a pulse. Daughter prepared to start CPR, but patient came around spontaneously. She denied any dizziness, lightheadedness, nausea, vomiting or any other symptoms. She subsequently did admit to abdomina pain and some constipation. Per review of her chart she did have a similar presentation in November 2023 and workup was negative. 2D echo done then showed EF of 70% with no regional wall motion abnormalities. She did have a Holter monitor that at that time which showed that her predominant rhythm was sinus and there were 151 ventricular ectopic beats with a burden of less than 1% and 377 supraventricular ectopic beats with a burden of less than 1% and 1 occurrence of supraventricular tachycardia with the fastest response. She had been doing well until this episode recurred. Vitals in the ED were blood pressure 106/47, pulse rate of 66 and respiratory rate 12. She was saturating at 97% on room air. CBC showed hemoglobin of 11 with WBC of 10.7 and platelets of 254. Chemistry showed sodium of 134 with potassium of 3.5 and bicarb of 23.1. Creatinine was 0.98. Urinalysis showed no evidence of UTI. EKG showed no acute ST changes. Chest x-ray showed no acute cardiopulmonary pathology. CT of the abdomen and pelvis done showed moderate to large amount of stool in the sigmoid colonic loops and no definite bowel obstruction. She has been admitted to be managed for syncope of unclear etiology. [facility] Medical History Elevated d-dimer Chronic anemia HLD (hyperlipidemia) HTN (hypertension) Back pain with radiculopathy Anxiety and depression RLS (restless legs syndrome) BPPV (benign paroxysmal positional vertigo) Home Medications ?Medication ?Instructions ?Recorded ?Last Taken ?Type aspirin 81 mg chewable tablet 81 mg PO DAILY@0800 heart [facility] [place] 02/26/13 12/05/19 History calcium 600 mg (as 600 mg PO DINNER supplement 02/26/13 12/04/19 History carbonate)-vitamin D3 20 mcg (800 unit) tablet pravastatin 20 mg tablet 20 mg PO QHS cholesterol 12/05/19 12/04/19 History lisinopril 20 mg tablet 20 mg PO DAILY 03/31/21 Unknown History potassium chloride 20 mEq 20 meq PO BID 11/13/23 Unknown History tablet,extended release spironolactone 50 mg tablet 50 mg PO DAILY 11/13/23 Unknown History cholecalciferol (vitamin D3) 25 25 mcg PO DAILY 12/21/24 Unknown History mcg (1,000 unit) capsule magnesium 200 mg tablet 400 mg PO DAILY 12/21/24 Unknown History ropinirole 4 mg tablet 4 mg PO QHS 12/21/24 Unknown History Allergy/AdvReac Type Severity Reaction Status Date / Time Sulfa (Sulfonamide Allergy Swelling Verified 12/21/24 19:49 Antibiotics) acetaminophen (From Vicodin) AdvReac Vomiting Verified 12/21/24 19:49 hydrocodone bitartrate (From AdvReac Vomiting Verified 12/21/24 19:49 Vicodin) promethazine HCl (From AdvReac Vomiting Verified 12/21/24 19:49 Phenergan) Family History Mother Heart disease Father Heart disease Surgical History S/P cholecystectomy Social History household members: spouse Smoking Status: Never smoker alcohol intake: never substance use type: does not use ROS Constitutional Constitutional: Reports fatigue, malaise and weakness; Denies anorexia, chills or fever(s) Eyes Eyes: Denies blurry vision or change in vision ENT HEENT: Denies dysphagia, headache(s) or sore throat Cardiovascular Cardiovascular: Reports syncope; Denies chest pain, dyspnea on exertion, edema, lightheadedness, orthopnea, palpitations, paroxysmal nocturnal dyspnea or rapid heart rate Respiratory/Chest Respiratory/Chest: Denies cough, dyspnea, productive cough, shortness of breath at rest or shortness of breath with exertion Gastrointestinal Gastrointestinal: Denies abdominal pain, constipation, diarrhea, nausea or vomiting Genitourinary Genitourinary: Denies dysuria Neurologic Neurologic: Reports syncope; Denies confusion, dizziness, focal weakness, headache(s), numbness or seizures Psychiatric Psychiatric: Denies anxiety or depression Vital Signs Vital Signs Vital Signs: 12/21/24 19:49 12/21/24 19:53 12/21/24 21:00 Temperature 97.7 F L Temperature Source Oral Pulse Rate 58 L 58 L 66 Respiratory Rate 18 14 12 Blood Pressure 99/47 L 101/48 L 106/47 L Blood Pressure Mean 64 65 66 Pulse Ox 95 93 97 Oxygen Delivery Method Room Air Room Air Room Air Weight Weight: 136 lb 14.513 oz Body Mass Index (BMI) 25.8 Physical Exam Const alert, oriented x3 and no apparent distress General Appearance: cooperative HEENT normocephalic, head/scalp atraumatic, hearing grossly normal bilaterally, moist oral mucous membranes and oropharynx normal Eyes EOMs intact bilaterally and conjunctivae normal Neck supple and no JVD Resp normal respiratory effort, no retractions, no use of accessory muscles and clear to auscultation bilaterally Cardio regular rate, regular rhythm, S1 normal heart sound and S2 normal heart sound Cardio Narrative: grade 2-3 ejection systolic murmur at site of aorta and also over mitral valve area GI normal to inspection, nondistended, normoactive bowel sounds, soft to palpation, non-tender and non-distended Extremity normal to inspection, full ROM and no clubbing, cyanosis or edema Neuro oriented x3, CN's II-XII intact bilaterally, moves all extremities and no focal motor deficits Sensorium / Orientation: awake Motor Exam: strength 5/5 throughout Psych affect normal Results Lab / Micro Data 12/21/24 19:50 12/21/24 19:50 Labs: Laboratory Results - last 24 hr 12/21/24 19:50: WBC 10.7, RBC 3.76 L, Hgb 11.0 L, Hct 34.0 L, MCV 90.4, MCH 29.3, MCHC 32.4, RDW Std Deviation 47.8 H, RDW Coeff of Bailee 14.5, Plt Count 254, MPV 9.6, Immature Gran % (Auto) 0.400, Neut % (Auto) 57.0, Lymph % (Auto) 34.6, [place] % (Auto) 7.3, Eos % (Auto) 0.4, Baso % (Auto) 0.3, Absolute Neuts (auto) 6.1, Absolute Lymphs (auto) 3.68, Nucleated RBC % 0, Sodium 134, Potassium 3.5, Chloride 99, Carbon Dioxide 23.1, Anion Gap 12, BUN 18, Creatinine 0.98, Estim Creat Clear Calc 36.10 L, Est GFR (MDRD) Non-Af 57 L, BUN/Creatinine Ratio 18.3, Glucose 101 H, Calcium 9.2, Total Bilirubin 0.47, Direct Bilirubin 0.21, AST 21, ALT 7, Alkaline Phosphatase 77, Total Protein 6.4, Albumin 3.6, Globulin 2.7, Lipase 17 12/21/24 20:00: Lactic Acid 1.7 12/21/24 20:34: Urine Color Yellow, Urine Clarity Clear, Urine pH 6.5, Ur Specific [place] 1.015, Urine Protein 30 H, Urine Glucose (UA) Normal, Urine Ketones Negative, Urine Occult Blood 10 H, Urine Nitrite Negative, Urine Bilirubin Negative, Urine Urobilinogen Normal, Ur Leukocyte Esterase Negative Rhythm Strip Rhythm Strip: Sinus bradycardia Rate: 57 Ectopy: None Imaging Radiology Impression Abdomen/Pelvis CT 12/21/24 20:05 IMPRESSION: No definite explanation for the patient's lower abdominal pain. There is a [id number]-[id number]-bbhxy amount of stool in sigmoid colonic loops. No definite bowel obstruction however. Other details as above. Reading Location: [facility] Chest X-Ray 12/21/24 20:10 IMPRESSION: No acute abnormality. Reading Location: [facility] Assessment & Plan Assessment/Plan (1) Syncope: PLAN: Plan #Syncope Etiology of syncope is unclear. Patient was sitting in her chair and family noticed she had passed out. There was concern that she had lost her pulse and stopped breathing but came around before family could start CPR. Blood pressure was in the 100 systolic but daughter says that is where she usually runs. Of note she was seen in the ED ED and admitted in November 2023 for similar complaints. At that time her blood pressure was in the 90s systolic and neurology reviewed her. EEG done also did not show any evidence of any seizure and neurology did not think that the etiology was the brain. She also had a Holter monitor which showed a predominantly sinus rhythm with less than 1% ventricular and supraventricular ectopics and SVT. 2D echo done then showed EF of 70% and no regional wall motion abnormalities. Will admit to PCU under observation. Check orthostatics. Her blood pressure was 100/50 at time of my review and had earlier on being 99/41. Daughter checked patient's most recent blood pressure at her PCPs which was in late November and was around 120 systolic. Patient is on lisinopril and spironolactone and I think her blood pressure usually runs too low for her to even be on blood pressure medication. Will therefore discontinue this. She also did have aortic systolic murmur and I suspect that she may have some degree of aortic stenosis. This combined with her low blood pressure is likely contributing to her syncope a grade 2-3 Repeat 2D echo. Hydrate gently with IV fluids. Fall precautions. I suspect that this may be vasovagal as she had been sitting in a chair for a while. #Probable aortic stenosis: As above. Repeat 2D echo pending. 2D echo from November showed EF of 70% and mild diffuse aortic valve thickening with peak aortic valve gradient of 21 mmHg and mean aortic valve gradient of 12 mmHg. Repeat 2D echo ordered. # Hypertension: On lisinopril and spironolactone. Hold BP meds as hypotension may be a cause of her symptoms. IV hydralazine as needed #Hyperlipidemia: On statin #Restless leg syndrome: On ropinirole DVT prophylaxis: Lovenox CODE STATUS:full code Patient, daughter and counseled extensively about different types of CODE STATUS including full code, DNR CCA and DNR CCA. Patient elects to be full code. Total [id number] time 17 minutes. Charges/Coding Visit Charges Inpatient E&M: 28461 Init Hosp L2 Procedures Hospitalists Procedures: 51366 Advncd Care Plan 30 Min
[2024-12-21 21:19] LABS: Troponin T High Sensitivity 35 ng/L (<=14)
[2024-12-21 21:20] LABS: Red Blood Cells-Urine 0-5 SEEN /hpf (0-5); Squamous Epithelial Cells - UA 5-10 SEEN /hpf (5-10)
--- NOTE | 2024-12-21 21:40 | CASEMGMT ---
Care Management Face to Face with patient for initial transition planning/care coordination assessment in the ED.? This program writer introduced self and role at [facility]. Patient alert and oriented. Patient willing to participate in assessment and is able to answer all questions appropriately.? Care providers, pharmacy, and demographics verified. Admitting Diagnosis: ?Chronic anemia Other diagnosis history: ?HLD, HTN, restless leg PCP: ?Sonya Specialists: ?Orthopedist Preferred Pharmacy: [facility] Insurance: ?Medicare Prescription Benefit: ?yes Living Will/HPOA: completed LNOK: ? Living Arrangements: ?patient lives with in [address] [place] home.? Recently needing assistance with bathing and dressing due to hip and shoulder pain, patient states she has met with doctor regarding same. and daughter help as needed.? Transportation: ? drives DME: ?walker, blood pressure cuff HHC: ?none SNF/Rehab: ?none Community Resources: ?none Behavioral Health History: ?anxiety and depression Patient goals: Patient wishes to discharge home, denies need for home health care at this time. Patient denies any further needs or concerns at this time. Disposition Plan: admission to acute; RN CM/SW to follow for discharge planning needs that may arise. Laure Trujillo, RADIO TIME BUYER, CHECKING CLERK
--- NOTE | 2024-12-21 21:40 | CASEMGMT ---
Care Management Face to Face with patient for initial transition planning/care coordination assessment in the ED.? This commercial lines underwriter introduced self and role at [facility]. Patient alert and oriented. Patient willing to participate in assessment and is able to answer all questions appropriately.? Care providers, pharmacy, and demographics verified. Admitting Diagnosis: ?Chronic anemia Other diagnosis history: ?HLD, HTN, restless leg PCP: ?Sonya Specialists: ?Orthopedist Preferred Pharmacy: [facility] Insurance: ?Medicare Prescription Benefit: ?yes Living Will/HPOA: completed LNOK: ? Living Arrangements: ?patient lives with in [address] [place] home.? Recently needing assistance with bathing and dressing due to hip and shoulder pain, patient states she has met with doctor regarding same. and daughter help as needed.? Transportation: ? drives DME: ?walker, blood pressure cuff HHC: ?none SNF/Rehab: ?none Community Resources: ?none Behavioral Health History: ?anxiety and depression Patient goals: Patient wishes to discharge home, denies need for home health care at this time. Patient denies any further needs or concerns at this time. Disposition Plan: admission to acute; RN CM/SW to follow for discharge planning needs that may arise. Laure Trujillo, ASSOCIATE PROFESSOR OF MEDICINE, FURNACE MECHANIC HELPER
[2024-12-21] MEDS: 0.9% Normal Saline (1000mL) 1,000 ML 125 ML IV (22:50)
[2024-12-21] MEDS: Potassium Chloride Oral Tablet 20 MEQ PO (23:32)
[2024-12-21 23:43] LABS: Troponin T High Sens 2 HR 35 ng/L (<=14)
[2024-12-22 00:28] LABS: Troponin T High Sens 4 HR 37 ng/L (<=14)
[2024-12-22 03:45] VITALS: BP 113/52; PULSE 67; RESP 16; TEMP 36.5; O2SAT 98
--- NOTE | 2024-12-22 05:55 | ECHOD_ITS ---
Reason For Study Reason For Study: SYNCOPE Procedure This was a 2D Doppler, Color Flow transthoracic echocardiogram. The patient was scanned supine. Exam performed portable in patient room. Left Ventricle Normal LV size. Left ventricular systolic function is normal. The left ventricular ejection fraction is 65 %. Stage 1 diastolic dysfunction. No regional wall motion abnormalities noted. Right Ventricle Normal RV size. Normal systolic function. Atria Normal left atrium. Normal right atrium. Mitral Valve There is mild mitral annular calcification. Mild (1+) eccentric mitral valve insufficiency. Tricuspid Valve Normal tricuspid valve. Mild (1+) tricuspid valve insufficiency. Pulmonary artery systolic pressure is 34 mmHg. Aortic Valve Mild focal aortic valve calcification. Mild aortic stenosis. Pulmonic Valve Normal pulmonic valve. Great Vessels Mildly calcified aortic root. The pulmonary artery is normal size. Inferior vena cava collapse with respiration. Pericardium/Pleural No pericardial effusion. MMode/2D Measurements & Calculations LVIDd: 4.5 cm IVSd: 0.76 cm LVOT diam: 2.0 cm LVIDs: 2.5 cm LVPWd: 0.88 cm LVOT area: 3.1 cm2 RVDd: 3.5 cm FS: 45.1 % asc Aorta Diam: 3.4 cm LAV(MOD-bp): 31.2 ml LVAd ap4: 18.3 cm2 LAV(MOD-bp) Indexed: 19.1 ml/m2 LVLd ap4: 6.6 cm LAV(MOD-sp2): 39.3 ml EDV(MOD-sp4): 41.7 ml LAV(MOD-sp4): 24.9 ml EDV(sp4-el): 42.9 ml LVAs ap4: 8.3 cm2 LVLs ap4: 5.0 cm ESV(MOD-sp4): 11.9 ml ESV(sp4-el): 11.5 ml EF(MOD-sp4): 71.5 % EF(sp4-el): 73.3 % LVAd ap2: 15.2 cm2 SV(MOD-sp4): 29.8 ml SV(MOD-sp2): 21.7 ml LVLd ap2: 6.0 cm SI(MOD-sp4): 18.2 ml/m2 SI(MOD-sp2): 13.3 ml/m2 EDV(MOD-sp2): 33.1 ml EDV(sp2-el): 32.4 ml LVAs ap2: 8.1 cm2 LVLs ap2: 5.2 cm ESV(MOD-sp2): 11.4 ml ESV(sp2-el): 10.9 ml EF(MOD-sp2): 65.7 % SV(sp4-el): 31.5 ml Ao sinus diam: 3.[address] Junction: 2.6 cm LA dimension(2D): 3.3 cm LA A4 area: 12.9 cm2 RA A4 area: 11.6 cm2 TAPSE: 2.3 cm Time Measurements MV dec time: 0.30 sec Doppler Measurements & Calculations MV E max clarence: 97.4 cm/sec Lat Peak E' Clarence: 7.8 cm/sec Med Peak E' Clarence: 8.6 cm/sec MV A max clarence: 122.9 cm/sec E/E' lat: 12.5 E/E' med: 11.4 MV E/A: 0.79 MV dec slope: 330.2 cm/sec2 Ao V2 max: 243.8 cm/sec LV V1 max: 129.9 cm/sec Ao max P.8 mmHg LV V1 max P.7 mmHg Ao V2 mean: 181.4 cm/sec LV V1 mean P.1 mmHg Ao mean P.2 mmHg LV V1 mean: 95.0 cm/sec Ao V2 VTI: 56.1 cm LV V1 VTI: 33.6 cm AV (velocity ratio): 0.60 LEANDRO(I,D): 1.8 cm2 LEANDRO(V,D): 1.6 cm2 SV(LVOT): 103.8 ml PA V2 max: 101.4 cm/sec TR max clarence: 278.0 cm/sec TR max P.0 mmHg ECHO/Echo Complete Interpretation Summary Normal LV size. Left ventricular systolic function is normal. The left ventricular ejection fraction is 65 %. Mildly calcified aortic root. There is mild mitral annular calcification. Stage 1 diastolic dysfunction. Ordering Physician: Rachael Crook Performed By: Latasha Marie RDCS
[2024-12-22] MEDS: 0.9% Normal Saline (1000mL) 1,000 ML 125 ML IV (06:31)
[2024-12-22 06:40] LABS: Hematocrit 29.4 % (37-47); Hemoglobin 9.4 g/dL (12.0-15.0); Immature Granulocytes Count 0.020 X10^3/uL (0.0-0.0); Mean Corp Hgb Conc 32.0 g/dL (32-36); Mean Corpuscular Volume 91.3 fL (81-99); Mean Platelet Vol. 9.4 fl (6.2-12.0); NRBC Flagged by Analyzer 0 % (0-5); Platelet Count 189 K/mm3 (150-450); RBC Distribution Width CV 14.6 % (11.6-14.6); RBC Distribution Width SD 48.9 fl (35.1-43.9); Red Blood Count 3.22 M/mm3 (4.2-5.4); White Blood Count 6.7 K/mm3 (4.4-11.0)
[2024-12-22 07:00] LABS: Anion Gap 6 (5-15); BUN 14 mg/dL (4-19); BUN/Creat Ratio 20.4 RATIO (10-20); Calcium,Total 8.5 mg/dL (7.6-11.0); Carbon Dioxide 24.9 mmol/L (21.0-32.0); Chloride 104 mmol/L (98-108); Estimated Creatinine Clearance 45.73 ml/min (50-250); Glucose 92 mg/dL (70-99); Potassium 4.2 mmol/L (3.3-5.1)
[2024-12-22] MEDS: Magnesium Chloride 64 MG Delay Rel.Tablet 128 MG PO (08:21)
[2024-12-22] MEDS: Cholecalciferol (VIT D3) 25 MCG TABLET (1,000 UNITS) PO (08:21)
[2024-12-22] MEDS: Potassium Chloride Oral Tablet 20 MEQ PO (08:21)
[2024-12-22 08:28] VITALS: BP 131/56; PULSE 61; RESP 16; TEMP 36.5; O2SAT 96
--- NOTE | 2024-12-22 11:49 | CHAPLAIN ---
Type of Pastoral Visit _x__ Initial Visit ___ Follow-up Visit ___ On-call Visit ___ General Patient Visit ___ Spiritual Assessment ___ Family Conference ___ Bereavement ___ Rapid Response ___ Code Blue ___ Other (describe below) Pastoral Care Referral From _x__ Patient ___ Family ___ Nurse ___ Physician ___ Director Of Education And Training ___ In [place] ___ Other (describe below) Sacrament/Intervention _x__ Active listening ___ Anointing ___ Taoist ___ Bereavement ___ Communion _x__ Kitty exploration ___ _x__ Life review _x__ Prayer ___ Reconciliation ___ Sacrament of Sick _x__ Supportive presence ___ Wedding ___ Other (describe below) Pastoral Comments patient and spouse of 66 years are in the room together; pt indicates that she has needed some evaluation of health due to how she has felt and then an event of passing out; pt also speaks of other health issues for her family and how this has brought on some questions for God; pt speaks of her spiritual concerns and how she has considered them; pt is given time to express her thoughts and have some things to consider; pt welcomes prayer; both indicate that they are grateful for the 'work of the director medicaid in the hospital'
[2024-12-22 14:30] VITALS: BP 128/59; PULSE 69; RESP 16; TEMP 36.7; O2SAT 96
--- NOTE | 2024-12-22 14:48 | DCINST_ITS ---
Discharge Instructions DC O2, CPAP, BIPAP needs Home O2 Discharge instructions: No Dressing / Incision Discharge Activity: Return to Normal Activity Weight Bearing Status: Full weight bearing Follow Up Care Test Results: Test results from this visit will be discussed in further detail at your follow- up appointment, if applicable. Discharge Plan Admission Admit Date/Time: 12/21/24 21:33 Primary Reason for Your Visit: Syncope Attending Provider: Kofi Carbone Primary Care Provider: Juan Hassan Consulting Providers: Rachael Crook Discharge Orders/Prescriptions Prescriptions: New oxycodone 5 mg Tablet 5 - 10 mg PO Q6H PRN PRN (Reason: Pain Score 1-10) 7 Days Qty: 35 0RF Rx Instructions: 1-2 q6h prn pain Continued aspirin 81 MG tablet,chewable 81 mg PO DAILY@0800 calcium carbonate-vitamin D3 1 EACH tablet 600 mg PO DINNER pravastatin 20 MG tablet 20 mg PO QHS spironolactone 50 mg tablet 50 mg PO DAILY ropinirole 4 mg tablet 4 mg PO QHS cholecalciferol (vitamin D3) 25 mcg (1,000 unit) capsule 25 mcg PO DAILY magnesium 200 mg tablet 400 mg PO DAILY Discontinued lisinopril 20 mg Tablet 20 mg PO DAILY potassium chloride 20 mEq tablet extended release 20 meq PO DAILY Referrals / Follow Up: Blanka Uriarte MD [Med Staff - Active Staff, Cardiology] - 01/04/25 10:30 am Juan Hassan MD [Primary Care Provider, Family Practice] - In 1 Week Disposition Disposition (needs filled in before D/C Order can be placed): Home, Self Care
--- NOTE | 2024-12-22 15:03 | DS.PCM_ITS ---
Providers Date of Admission: 12/21/24 Date of Discharge: 12/22/24 Primary Care Physician: Dr. Juan Hassan MD Reason For Visit: SYNCOPE Diagnosis Discharge Diagnosis (1) Syncope: Status: Acute Code(s): R55 - Syncope and collapse Plan 1. Syncope-etiology unclear #2 essential hypertension #3 hyperlipidemia Medications at Discharge Home Medications aspirin 81 mg chewable tablet 81 mg PO DAILY@0800 heart health 02/26/13 calcium 600 mg (as carbonate)-vitamin D3 20 mcg (800 unit) tablet 600 mg PO DINNER supplement 02/26/13 pravastatin 20 mg tablet 20 mg PO QHS cholesterol 12/05/19 spironolactone 50 mg tablet 50 mg PO DAILY 11/13/23 cholecalciferol (vitamin D3) 25 mcg (1,000 unit) capsule 25 mcg PO DAILY 12/21/24 magnesium 200 mg tablet 400 mg PO DAILY 12/21/24 ropinirole 4 mg tablet 4 mg PO QHS 12/21/24 lisinopril 20 mg tablet 20 mg PO QDAY 12/27/24 potassium chloride 20 mEq tablet,extended release (K-Tab) 20 meq PO BID 12/27/24 Hospital Course Operations None Procedures 2-D Echocardiogram Summary of Care Provided Minutes Spent on Discharge: 31 Hospital Course: This 84-year-old white female was seen in the emergency room at [facility] after suffering a syncopal episode at home while in her chair. She had a similar episode and was worked up previously without a conclusion reached as to why she had the event. Workup in the emergency room did not indicate any reason for the episode, she was placed in observation status on PCU and monitored on telemetry. Patient had an echocardiogram which was unremarkable. Discussions were carried out with the patient and her family about getting a loop recorder implanted, arrangements were made for her to see the cardiology group at [facility] for evaluation for that loop recorder. On 12/22/2024, patient was seen and examined: On examination she appeared in good health and spirits, she does not appear to be in any distress. Vital signs as documented. Skin warm and dry and without overt rashes. Neck without JVD, thyroid appears normal, trachea is midline, neck is supple. Lungs clear, normal air movement was noted. Heart exam notable for regular rhythm, normal sounds and absence of murmurs, rubs or gallops. Abdomen unremarkable and without evidence of organomegaly, masses, or abdominal aortic enlargement, bowel sounds are present in all 4 quadrants, no abdominal tenderness was noted. Extremities nonedematous, no cyanosis was noted, no clubbing was noted. Neuro: Cranial nerves II through XII are grossly intact, no focal motor deficits were noted, sensation to light touch and pinprick is intact, motor exam 5/5 throughout. Psych: Patient is alert and oriented x3, she does not appear anxious or depressed, she does not appear agitated. Patient was discharged home in stable condition on 12/22/2024 Weight / BMI Weight Weight: 63.2 kg Body Mass Index (BMI) 25.4 ABG / Lab / Microbiology Data 12/22/24 05:33 12/22/24 05:33 Laboratory: Laboratory Results - last 24 hr 12/21/24 19:50: WBC 10.7, RBC 3.76 L, Hgb 11.0 L, Hct 34.0 L, MCV 90.4, MCH 29.3, MCHC 32.4, RDW Std Deviation 47.8 H, RDW Coeff of Bailee 14.5, Plt Count 254, MPV 9.6, Immature Gran % (Auto) 0.400, Neut % (Auto) 57.0, Lymph % (Auto) 34.6, [place] % (Auto) 7.3, Eos % (Auto) 0.4, Baso % (Auto) 0.3, Absolute Neuts (auto) 6.1, Absolute Lymphs (auto) 3.68, Nucleated RBC % 0, Sodium 134, Potassium 3.5, Chloride 99, Carbon Dioxide 23.1, Anion Gap 12, BUN 18, Creatinine 0.98, Estim Creat Clear Calc 36.10 L, Est GFR (MDRD) Non-Af 57 L, BUN/Creatinine Ratio 18.3, Glucose 101 H, Calcium 9.2, Total Bilirubin 0.47, Direct Bilirubin 0.21, AST 21, ALT 7, Alkaline Phosphatase 77, Troponin T High Sens 35 H, Total Protein 6.4, Albumin 3.6, Globulin 2.7, Lipase 17 12/21/24 20:00: Lactic Acid 1.7 12/21/24 20:34: Urine Color Yellow, Urine Clarity Clear, Urine pH 6.5, Ur Specific [place] 1.015, Urine Protein 30 H, Urine Glucose (UA) Normal, Urine Ketones Negative, Urine Occult Blood 10 H, Urine Nitrite Negative, Urine Bilirubin Negative, Urine Urobilinogen Normal, Ur Leukocyte Esterase Negative, Urine RBC 0-5 SEEN, Urine WBC 0-5 SEEN, Ur Squamous Epith Cells 5-10 SEEN, Urine Bacteria 0 SEEN, Hyaline Casts 0-5 SEEN, Urine Mucus 0 SEEN 12/21/24 22:00: Troponin T Hi Sens 2 Hr 35 H 12/21/24 23:50: Troponin T Hi Sens 4Hr 37 H 12/22/24 05:33: WBC 6.7, RBC 3.22 L, Hgb 9.4 L, Hct 29.4 L, MCV 91.3, MCH 29.2, MCHC 32.0, RDW Std Deviation 48.9 H, RDW Coeff of Bailee 14.6, Plt Count 189, MPV 9.4, Immature Gran % (Auto) 0.300, Neut % (Auto) 61.3, Lymph % (Auto) 30.5, [place] % (Auto) 7.2, Eos % (Auto) 0.6, Baso % (Auto) 0.1, Absolute Neuts (auto) 4.1, Absolute Lymphs (auto) 2.04, Nucleated RBC % 0, Sodium 134, Potassium 4.2, Chloride 104, Carbon Dioxide 24.9, Anion Gap 6, BUN 14, Creatinine 0.67 L, Estim Creat Clear Calc 45.73 L, Est GFR (MDRD) Non-Af 86, BUN/Creatinine Ratio 20.4 H, Glucose 92, Calcium 8.5 Radiography Diagnostic Testing: Radiology Impression Abdomen/Pelvis CT 12/21/24 20:05 IMPRESSION: No definite explanation for the patient's lower abdominal pain. There is a [id number] amount of stool in sigmoid colonic loops. No definite bowel obstruction however. Other details as above. Reading Location: [facility] Chest X-Ray 12/21/24 20:10 IMPRESSION: No acute abnormality. Reading Location: [facility] Echocardiogram 12/22/24 05:55 Interpretation Summary Normal LV size. Left ventricular systolic function is normal. The left ventricular ejection fraction is 65 %. Mildly calcified aortic root. There is mild mitral annular calcification. Stage 1 diastolic dysfunction. Ordering Physician: Rachael Crook Performed By: Latasha Marie RDCS D/C Instructions Weight Bearing Status: Full weight bearing DC O2, CPAP, BIPAP Needs Home O2 Discharge instructions: No Meaningful Use Info Meaningful Use Meaningful Use Diagnoses (Choose all that apply): None applicable Discharge Plan Admission Admit Date/Time: 12/21/24 21:33 Primary Reason for Your Visit: Syncope Attending Provider: Kofi Carbone Primary Care Provider: Juan Hassan Consulting Providers: Rachael Crook Discharge Orders/Prescriptions Prescriptions: Continued aspirin 81 MG tablet,chewable 81 mg PO DAILY@0800 calcium carbonate-vitamin D3 1 EACH tablet 600 mg PO DINNER pravastatin 20 MG tablet 20 mg PO QHS spironolactone 50 mg tablet 50 mg PO DAILY ropinirole 4 mg tablet 4 mg PO QHS cholecalciferol (vitamin D3) 25 mcg (1,000 unit) capsule 25 mcg PO DAILY magnesium 200 mg tablet 400 mg PO DAILY Discontinued lisinopril 20 mg Tablet 20 mg PO DAILY potassium chloride 20 mEq tablet extended release 20 meq PO DAILY No Action lisinopril 20 mg tablet 20 mg PO QDAY potassium chloride [K-Tab] 20 mEq tablet extended release 20 meq PO BID Referrals / Follow Up: Blanka Uriarte MD [Med Staff - Active Staff, Cardiology] - 01/04/25 10:30 am Juan Hassan MD [Primary Care Provider, Family Practice] - 12/29/24 11:40 am Disposition Disposition (needs filled in before D/C Order can be placed): Home, Self Care Charges/Coding Visit Charges Inpatient E&M: 37671 Disch Hosp >30min
--- NOTE | 2024-12-22 15:37 | PHA.DC_ITS ---
Pharmacy [facility] has performed discharge medication counseling for this patient. The patient was counseled on the following discharge medications and changes in medications for homegoing review. - Oxycodone 5 mg tablet The Reason for Use, instructions for use, and potential side effects were reviewed for all new medications. The patient's questions regarding all of their medications were answered. The patient was able to verbally demonstrate an understanding of their discharge medications. Medications at Discharge Home Medications aspirin 81 mg chewable tablet 81 mg PO DAILY@0800 [facility] health 02/26/13 calcium 600 mg (as carbonate)-vitamin D3 20 mcg (800 unit) tablet 600 mg PO DINNER supplement 02/26/13 pravastatin 20 mg tablet 20 mg PO QHS cholesterol 12/05/19 spironolactone 50 mg tablet 50 mg PO DAILY 11/13/23 cholecalciferol (vitamin D3) 25 mcg (1,000 unit) capsule 25 mcg PO DAILY 12/21/24 magnesium 200 mg tablet 400 mg PO DAILY 12/21/24 ropinirole 4 mg tablet 4 mg PO QHS 12/21/24 oxycodone 5 mg tablet 5 - 10 mg (1 - 2 x 5 mg) PO Q6H PRN PRN Pain Score 1-10 7 days #35 tabs 12/22/24
--- NOTE | 2024-12-22 15:37 | PHA.DC_ITS ---
Pharmacy [facility] has performed discharge medication counseling for this patient. The patient was counseled on the following discharge medications and changes in medications for homegoing review. - Oxycodone 5 mg tablet The Reason for Use, instructions for use, and potential side effects were reviewed for all new medications. The patient's questions regarding all of their medications were answered. The patient was able to verbally demonstrate an understanding of their discharge medications. Medications at Discharge Home Medications aspirin 81 mg chewable tablet 81 mg PO DAILY@0800 [facility] health 02/26/13 calcium 600 mg (as carbonate)-vitamin D3 20 mcg (800 unit) tablet 600 mg PO DINNER supplement 02/26/13 pravastatin 20 mg tablet 20 mg PO QHS cholesterol 12/05/19 spironolactone 50 mg tablet 50 mg PO DAILY 11/13/23 cholecalciferol (vitamin D3) 25 mcg (1,000 unit) capsule 25 mcg PO DAILY 12/21/24 magnesium 200 mg tablet 400 mg PO DAILY 12/21/24 ropinirole 4 mg tablet 4 mg PO QHS 12/21/24 oxycodone 5 mg tablet 5 - 10 mg (1 - 2 x 5 mg) PO Q6H PRN PRN Pain Score 1-10 7 days #35 tabs 12/22/24
== END 2024-12-22 15:36 | disposition home or self-care (01) ==
LOC: ED 20:53 → PCU 21:48
PROVIDERS: Admitting Provider Student in an Organized Health Care Education/Training Program; Emergency Provider Emergency Medicine; PCP Family Medicine; Visit Provider Internal Medicine
DX: R55 Syncope and collapse (principal); I49.3 Ventricular premature depolarization; I47.10 Supraventricular tachycardia, unspecified; E78.5 Hyperlipidemia, unspecified; I10 Essential (primary) hypertension; I49.49 Other premature depolarization; R11.0 Nausea; R10.30 Lower abdominal pain, unspecified; Z79.899 Other long term (current) drug therapy; Z79.82 Long term (current) use of aspirin; I08.3 Combined rheumatic disorders of mitral, aortic and tricuspid valves; G25.81 Restless legs syndrome
CPT/HCPCS: 36415; 71046; 74177; 80048; 80076; 81001; 83605; 83690; 84484; 85025; 93005; 93306; 96361; 96372; 96374; 97162; 97166; 99221; 99285; P9612; Q9967; A4216; G0378; J2405

== ENCOUNTER → 2025-01-17 | Outpatient (CLI) | payer MEDICARE, OTHER, SELFPAY ==
--- NOTE | 2025-01-17 13:00 | RAD_ITS ---
PROCEDURE: INJ/ASP LOPEZ JT SHOULD/HIP/KNEE 01/17/2025 REASON FOR EXAM: RT HIP PAIN, ARTHRITIS OF RT HIP TECHNIQUE: Procedure Code: RADINJ/ASP MJ Modality: DX Procedure: INJ/ASP LOPEZ JT SHOULD/HIP/KNEE The procedure as well as the benefits and possible complications were explained to the patient including infection and bleeding. Informed consent was obtained. The patient was in the supine position. The overlying skin was prepped and draped in the usual sterile fashion. Following local anesthetic application, a 22 gauge spinal needle was placed into the right hip joint. 2 cc of Isovue 300 was injected for confirmation. Following this, 80 mg of Kenalog and 3 cc of 0.5% Marcaine was injected. The patient tolerated the procedure well. Radiation dose: 4.1 mGy. Fluoroscopy: 22 seconds. 1 image was submitted. COMPARISON: None FINDINGS: Successful right hip injection. RAD/Inj/Asp Lopez Jt Should/Hip/Knee IMPRESSION: Successful right hip injection. The patient tolerated the procedure well witho ut any immediate complication. Reading Location: [place] [id number]
[2025-01-17] MEDS: Lidocaine 2% (5ml sdv) 5 ML VIAL.MPF (13:14)
[2025-01-17] MEDS: Betamethasone/Betamethasone 30 MG/5 ML Vial 12 MG IM (13:15)
[2025-01-17] MEDS: Lidocaine 1% (5 ml sdv) 5 ML Vial 3 ML INFILT (13:15)
== END | disposition home or self-care (01) ==
LOC: RAD 12:43
PROVIDERS: PCP Family Medicine; Referring Provider Orthopaedic Surgery; Visit Provider Orthopaedic Surgery
DX: M25.551 Pain in right hip (principal); M16.11 Unilateral primary osteoarthritis, right hip
CPT/HCPCS: 20610; 77002; Q9967; J0702

== ENCOUNTER 2025-02-18 20:52 | Inpatient (IN) | payer MEDICARE, OTHER, SELFPAY ==
[2025-02-18 20:52] VITALS: BP 171/90; PULSE 87; RESP 18; TEMP 36.8; O2SAT 99
--- OUTSIDE RECORDS SUMMARY | 2025-02-18 21:50 | XMS RPT_ITS | CCD ---
Author Organization [facility] Care Team Providers Care Supervisor Engine Repair Name Role Phone Dorita RANDALL, Paula Johnson Unavailable [phone] Sonya RANDALL, Juan Johnson Primary Care Provider Juan Spann MD Primary Care Provider Juan Spann MD Primary Care Provider Juan Spann MD Primary Care Provider Juan Spann MD Primary Care Provider Juan Spann MD Primary Care Provider Zo Metcalf RN Unavailable JUAN SPANN Primary Care Unavailable PREBISH, AJ Referring Unavailable Les COTTON, Sujatha Unavailable Destini Lay PA-C Unavailable Unavailable Primary Care Provider Unavailabl e JACKSON SUMNER Attending Unavailable SONYA, JUAN A Primary Care Unavailable SELF Referring Unavailable JACKSON SUMNER Referring Unavailable SONYA, JUAN A Primary Care Unavailable AHMED, DANII Attending Unavailable SONYA, JUAN A Primary Care Unavailable AHMED, DANII Referring Unavailable AHMED, DANII Attending Unavailable SONYA, JUAN A Primary Care Unavailable PREBISH, AJ Attending Unavailable SONYA, JUAN A Primary Care Unavailable PREBISH, AJ Attending Unavailable SONYA, JUAN A Primary Care Unavailable PREBISH, AJ Attending Unavailable SONYA, JUAN A Primary Care Unavailable AHMED, DANII Attending Unavailable SONYA, JUAN A Primary Care Unavailable AHMED, DANII Referring Unavailable AHMED, DANII Attending Unavailable PREBISH, AJ Attending Unavailable SONYAJUAN ZULETA Primary Care Unavailable SONYAJUAN ZULETA Primary Care Unavailable AHMED, DANII Attending Unavailable AHMED, DANII Referring Unavailable SONYAMABEL ZULETAREY A Primary Care Unavailable PREBISH, AJ Attending Unavailable SUMNER, JACKSON Attending Unavailable SUMNER, JACKSON Referring Unavailable JUAN SPANN Primary Care Unavailable SONYAJUAN ZULETA Primary Care Unavailable PREBISH, AJ Attending Unavailable SONYAMABEL ZULETAREY A Primary Care Unavailable AHMED, DANII Attending Unavailable PREBISH, AJ Referring Unavailable SONYAMABEL ZULETAREY A Primary Care Unavailable SUMNER, JACKSON Attending Unavailable PREBISH, AJ Referring Unavailable Juan Spann MD Primary Care Provider [phone] Juan Spann MD Primary Care Provider JUAN SPANN Primary Care Unavailable THANG SHANNON Referring Unavailab JAMEY Gonzalez Attending Unavailable JAMEY COLLIER Admitting Unavailable JAMEY COLLIER Attending Unavailable JUAN SPANN Primary Care UnavailJAMEY Moraes Referring Unavailable JUAN SPANN Primary Care Unavailabl e NAOMI JAMIL Referring Unavailable JUAN SPANN Primary Care UnavailJAMEY Moraes Attending Unavailable JUAN SPANN [facility] Care Unavailabl e Les MANAGER MOBILITY.[employer]AF[employer]CHAN[employer], Sujatha Unavailable Alireza CAMACHO, Destini Unavailable Dr. Juan Spann MD Primary Care Physician Dr. Mabel Downing MD Emergency Department Physici an Ambreen RANDALL, Dr. Rachael Matthews Admitting Physician [phone] Ambreen RANDALL, Dr. Rachael Matthews Nurse Practitioner Dr. Chelsea Carbone DO Attending Physician Hernandez RANDALL, Dr. Barbosa Attending Physician Dr. Chelsea Carbone DO Nurse Practitioner Dequan Ayala Referring Unavailable Juan Spann Primary Care Unavailable Dequan Ayala Attending Unavailable Chelsea Carbone Attending Unavailable Ambreen Rachael Cassie Admitting Unavailable Sebastiánam, Rachael Cassie Consulting Unavailable Sonya, Juan Primary Care Unavailable Fazal Jackson Attending Unavailable Sonya, Juan Primary Care Unavailable Sonya, Juan Referring Unavailable Familia Ng Attending Unavailable Sonya, Juan Primary Care Unavailable Koram, Rachael Cassie Admitting Unavailable Chelsea Carbone Attending Unavailable Koram, Rachael Cassie Consulting Unavailable Sonya, Juan Primary Care Unavailable Chelsea Carbone Consulting Unavailable Koram, Rachael Cassie Attending Unavailable DESTINI LAY Referring Unavailable SONYA, JUAN A Primary Care Unavailable DEQUAN AYALA Attending Unavailable SONYA, JUNA A Referring Unavailable SONYA, JUAN A Primary Care Unavailable LAUREN CHAMPAGNE Attending Unavailable SONYA, JUAN A Referring Unavailable SONYA, JUAN A Primary Care Unavailable DANII ROCA Referring Unavailable SONYA, JUAN A Primary Care Unavailable SONYA, JUAN A Attending Unavailable SONYA, JUAN A Primary Care Unavailable SONYA, JUAN A Referring Unavailable SONYA, JUAN A Primary Care Unavailable SONYA, JUAN A Referring Unavailable SONYA, JUAN A Primary Care Unavailable THANG SHANNON Referring Unavailab le SONYA, JUAN A Primary Care Unavailable SONYA, JUAN A Primary Care Unavailable DESTINI LAY Attending Unavailable SONYA, JUAN A Primary Care Unavailable DESTINI LAY Attending Unavailable SONYA, JUAN A Primary Care Unavailable SONYA, JUAN A Referring Unavailable SONYA, JUAN A Primary Care Unavailable SONYA, JUAN A Attending Unavailable SONYA, JUAN A Primary Care Unavailable SONYA, JUAN A Referring Unavailable SONYA, JUAN A Primary Care Unavailable SONYA, JUAN A Referring Unavailable SONYA, JUAN A Primary Care Unavailable SONYA, JUAN A Referring Unavailable SONYA, JUAN A Primary Care Unavailable SONYA, JUAN A Attending Unavailable SONYA, JUAN A Primary Care Unavailable SONYA, JUAN A Referring Unavailable SONYA, JUAN A Primary Care Unavailable SONYA, JUAN A Primary Care Unavailable Allergies Allergy Classification Reported Allergen(s) Allergy Type Date of Onset Reaction(s) Facility (20 sources) Acetaminophen / HYDROcodone; Translations: [HYDROCODONE-ACET AMINOPHEN] Drug Allergy 12-30-19 12 GI Upset, Other [facility] Work Phone: (1 source) Promethazine Drug Allergy 11-30-19 14 swelling [facility] Work Phone: (1 source) Sulfacetamide Drug Allergy 11-30-19 14 swelling [facility] Work Phone: (20 sources) NIFEdipine; Translations: [NIFEDIPINE] Drug Allergy 06-27-19 21 Swelling [facility] Work Phone: (20 sources) Sulfonamides (Antibiotic); Translations: [SULFA (SULFONAMIDE ANTIBIOTICS)] Drug Allergy 04-11-19 06 Swelling, Anaphylaxis, Other [facility] Work Phone: (20 sources) Phenergan Plain; Translations: [PHENERGAN PLAIN] Drug Intolerance 03-18-19 14 Vomiting [facility] (4 sources) Promethazine; Translations: [PROMETHAZINE] Drug Allergy 11-30-19 [address] [facility] (2 sources) Acetaminophen Drug Allergy 12-22-19 [facility] (3 sources) HYDROcodone; Translations: [hydrocodone bitartrate] Drug Allergy 12-22-19 25 [facility] (3 sources) Promethazine; Translations: [promethazine HCl] Drug Allergy 12-22-19 25 [facility] (2 sources) Sulfonamides (Antibiotic) Allergy to substance 12-22-19 [facility] (1 source) Acetaminophen Drug Allergy 01-19-20 25 [facility] (1 source) Sulfonamides (Antibiotic) Drug allergy (disorder) 01-19-20 [facility] (1 source) traMADol; Translations: [TRAMADOL] Drug Allergy 12-31-19 [facility] Repository Medications Current Medications Medication Drug Class(es) Dates Sig (Normalized) Sig (Original) acetaminophen 325 mg oral tablet (3 sources) Start: 06-24-2024 End: 07-24-2024 take 2 tablets by mouth every six hours acetaminophen (Tylenol) 325 mg tablet Indications: Postlaminectomy syndrome of lumbar region Take 2 tablets (650 mg) by mouth every 6 hours if needed (postoperative pain). 240 tablet 06/24/2024 07/24/2024 Active Start: 06-24-2024 take 1 tablet by maximiliano th every four hours as needed 650 mg, oral, Every 4 hours PRN, pain mild (1-3), first line, If patient has not received Tylenol in past 8 hours, Starting on Luisa 06/24/24 at 0856, Recovery (only), When able to take oral medications., If ordered PRN for pain, nurse is permitted to administer this medication for higher pain scores based on patient preference? Yes albuterol 0.83 mg/ml inhalation solution (1 source) beta2-Adrenergic Agonist Start: 06-24-2024 2.5 mg, nebulization, Once as needed, wheezing, Starting on Luisa 06/24/24 at 0856, For 1 dose, Recovery (only) ALPRAZolam 0.5 mg disintegrating oral tablet (11 sources) Benzodiazepine Start: 04-22-2024 End: 06-20-2024 ALPRAZolam 0.5 mg dissolvable tablet Indications: ACUTE PROCEDURE-RELATED ANXIETY BRING 2 TABLETS TO PROCEDURE LOCATION ON THE DAY OF PROCEDURE, TO BE ADMINISTERED BY STAFF 2 tablet 04/22/2024 06/20/2024 Active amoxicillin 875 mg / clavulanate 125 mg oral tablet (3 sources) Penicillin-class Antibacterial Start: 02-10-2023 End: 02-22-2023 take 1 tablet by mouth twice daily amoxicillin-clavula jose potassium (AUGMENTIN) 875-125 mg per tablet Indications: Acute non-recurrent sinusitis, unspecified location Take 1 tablet by mouth two times a day for 5 days. 10 tablet 0 02/17/2023 02/22/2023 Active Comment on above: Take 1 tablet by maximiliano two times a day for 5 days. aspirin 81 mg delayed release oral tablet (20 sources) Platelet Aggregation Inhibitor, Nonsteroidal Anti-inflammatory Drug Start: 07-01-2024 take 1 tablet by mouth once daily aspirin 81 mg EC tablet Indications: Postlaminectomy syndrome of lumbar region Take 1 tablet (81 mg) by mouth once daily. Do not fill before July 01, 2024. 07/01/2024 Active Start: 07-01-2024 take 1 tablet by maximiliano th once daily aspirin 81 mg EC tablet Indications: Postlaminectomy syndrome of lumbar region Take 1 tablet (81 mg) by mouth once daily. Do not fill before July 01, 2024. 07/01/2024 Active Start: 11-29-2013 take 1 tablet by maximiliano th once daily ASPIRIN LOW DOSE 81 MG ORAL TABLET 1 tablet by mouth once a day ASPIRIN LOW DOSE 81 MG ORAL TABLET Jes Garcia LPN Start: 02-26-2013 take 1 tablet by maximiliano th once daily Start: 11-11-2012 End: 06-24-2024 take 1 tablet by mouth once daily aspirin, enteric coated (ADULT LOW DOSE ASPIRIN) 81 mg EC tablet Take 1 tablet by mouth once daily. 0 11/11/2012 Active aspirin 500 mg b uffered tablet Take 600 mg by mouth every 6 hours if needed for mild pain (1 - 3). Active Comment on above: Take 1 tablet by maximiliano th once daily. calcium carbonate 1500 mg oral tablet (20 sources) Start: 008 calcium carbonate(CALTRATE 600 600 MG (1,500 MG) TAB) 0 01/04/2008 Active calcium carbonate 1500 mg / cholecalciferol 0.01 mg oral tablet (2 sources) Vitamin D Start: 013 take 1 tablet by mouth at dinner celecoxib 200 mg oral capsule (20 sources) Nonsteroidal Anti-inflammatory Drug Start: 025 take 1 capsule by mouth once daily celecoxib (CeleBREX) 200 mg capsule Indications: Postlaminectomy syndrome of lumbar region Take 1 capsule (200 mg) by mouth once daily. Do not fill before July 01, 2024. 07/01/2024 Active Start: 07-01-2024 take 1 capsule by mo [facility] once daily celecoxib (CeleBREX) 200 mg capsule Indications: Postlaminectomy syndrome of lumbar region Take 1 capsule (200 mg) by mouth once daily. Do not fill before July 01, 2024. 07/01/2024 Active Start: 05-18-2024 End: 08-16-2024 take 1 capsule by mouth once daily celecoxib (CELEBREX) 200 mg capsule Indications: Lumbar spondylosis Take 1 capsule by mouth once daily. 30 capsule 2 05/18/2024 08/16/2024 Active Start: 01-13-2024 End: 04-12-2024 take 1 capsule by mouth once daily celecoxib (CELEBREX) 200 mg capsule Indications: Lumbar spondylosis Take 1 capsule by mouth once daily. 30 capsule 2 01/13/2024 04/12/2024 Active chlorhexidine gluconate 1.2 mg/ml mouthwash (4 sources) Start: 06-16-2024 End: 06-24-2024 chlorhexidine (Hibiclens) 4 % external liquid Indications: Postlaminectomy syndrome of lumbar region , Preoperative examination Apply topically once daily as needed for wound care. Use for 5 days prior to surgery as body wash, do not use on face or genital region 473 mL 06/16/2024 06/24/2024 Discontinued (Stop Taking at Discharge) Start: 06-16-2024 End: 06-24-2024 take 15 mL by mouth every other day chlorhexidine (Peridex) 0.12 % solution Indications: Postlaminectomy syndrome of lumbar region , Preoperative examination Use 15 mL in the mouth or throat if needed for wound care for up to 2 days. Use as mouth wash for night before and morning of surgery 120 mL 06/16/2024 06/24/2024 Discontinued (Stop Taking at Discharge) cholecalciferol 0.025 mg ora l capsule (6 sources) Vitamin D Start: 12-21-2024 take 1 capsule by [facility] once daily take 1 tablet by mouth once catherine y cholecalciferol (Vitamin D3) 25 mcg (1000 units) tablet Take 1 tablet (1,000 Units) by mouth once daily. Active cholecalciferol, vitamin D3, (VITAMIN D3 ORAL) (20 sources) cholecalciferol, vitamin D3, (VITAMIN D3 ORAL) Take by mouth. Active diphenhydrAMINE (1 source) Histamine-1 Receptor Antagonist Start: 06-24-2024 12.5 mg, intravenous, Once as needed, itching, allergic reaction, Starting on Fri06/24/24 at 0856, For 1 dose, Recovery (only) 2 ml droperidol 2.5 mg/ml injection (1 source) Dopamine-2 Receptor Antagonist Start: 06-24-2024 0.625 mg, intravenous, Once as needed, nausea/vomiting, second line, Starting on Fri06/24/24 at 0856, For 1 dose, Recovery (only), Monitor QTc while on therapy (2 lead monitoring) 1 ml hydrALAZINE hydrochloride 20 mg/ml injection (1 source) Arteriolar Vasodilator Start: 06-24-2024 5 mg, intravenous, Administer over 2 Minutes, Every 30 min PRN, systolic blood pressure greater than 180 mmHg and heart rate less than 60 BPM, Starting on Luisa 06/24/24 at 0856, For 2 doses, Recovery (only) 0.5 ml HYDROmorphone hydrochloride 1 mg/ml prefilled syringe (2 sources) Opioid Agonist Start: 06-24-2024 0.4 mg, intravenous, Every 5 min PRN, pain severe (7-10), first line, Starting on Luisa 06/24/24 at 0856, Recovery (only), Max total of 4 mg regardless of dose. Start: 06-24-2024 0.2 mg, intrav enous, Every 5 min PRN, pain moderate (4-6), first line, Starting on Luisa 06/24/24 at 0856, Recovery (only), Max total of 4 mg regardless of dose. labetalol hydrochloride 5 mg/ml injectable solution (1 source) beta-Adrenergic Sourav Start: 06-24-2024 5 mg, intravenous, Administer over 1 Minutes, Once as needed, systolic blood pressure greater than 180 mmHg, dystolic blood pressure greater than 100 mmHg and heart rate greater than 60 BPM, Starting on Luisa 06/24/24 at 0856, For 1 dose, Recovery (only) levonorgestreL-ethi nyl estrad (Tyblume) 0.1 mg- 20 mcg chewable tablet (1 source) levonorgestreL-e t hinyl estrad (Tyblume) 0.1 mg- 20 mcg chewable tablet Chew 1 tablet once daily. Active lisinopril 20 mg oral tablet (20 sources) Angiotensin Converting Enzyme Inhibitor Start: 12-27-2024 take 1 tablet by mouth once daily Start: 12-27-2024 take 1 tablet by maximiliano th once daily Start: 11-28-2023 End: 06-28-2024 take 1 tablet by mouth once daily lisinopril (ZESTRIL) 10 mg tablet Take 1 tablet by mouth once daily. 90 tablet 1 06/28/2024 Active Start: 03-31-2021 End: 12-22-2024 take 1 tablet by mouth once daily Lisinopril 20 mg Tablet Discontinued 20 mg PO DAILY March 31, 2021 1:00am December 22, 2024 2:50pm Comment on above: Take 1 tablet by maximiliano th once daily. TAKE 1 TABLET BY [facility] EVERY DAY Magnesium (20 sources) Start: 12-21-2024 take 2 tablets by [facility] once daily Start: 12-18-2023 take 1 tablet by [facility] once daily Magnesium 250 mg tab Take 1 tablet by mouth once daily. 12/18/2023 Active magnesium amino acid chelate 133 mg oral tablet (4 sources) take 1 tablet by mouth twice daily magnesium, amino acid chelate, 133 mg tablet Take 1 tablet (133 mg) by mouth 2 times a day. Active 5 ml midazolam 1 mg/ml injection (1 source) Benzodiazepine Start: 025 0.5 mg, intravenous, Every 15 min PRN, anxiety, as needed for anxiety, Starting on Luisa 06/24/24 at 0856, For 2 doses, Recovery (only) nitrofurantoin, macrocrystals 25 mg / nitrofurantoin, monohydrate 75 mg oral capsule (1 source) Nitrofuran Antibacterial Start: End: 023 take 1 capsule by mouth twice daily nitrofurantoin monohydrate and macrocrystal (MACROBID) 100 mg capsule Indications: Urinary frequency Take 1 capsule by mouth twice daily for 5 days. 10 capsule 0 07/15/2022 07/20/2022 Active Comment on above: Take 1 capsule by [facility] twice daily for 5 days. nortriptyline 25 mg oral capsule (20 sources) Tricyclic Antidepressant Start: 025 take 1 capsule by mouth once daily at bedtime nortriptyline (PAMELOR) 25 mg capsule Take 1 capsule by mouth daily at bedtime. 21 capsule 11/02/2024 Active Start: 03-22-2016 End: 07-05-2024 take 1 capsule by mouth once daily at bedtime nortriptyline (PAMELOR) 75 mg capsule Take 1 capsule by mouth daily at bedtime. 30 capsule 5 07/05/2024 Active Comment on above: Take 1 capsule by [facility] daily at bedtime. nystatin 199593 unt/ml topical cream (7 sources) Polyene Antifungal Start: 06-17-19 End: 07-01-19 24 nystatin (MYCOSTATIN) cream Indications: Candidiasis of skin Apply 1 application to affected area two times a day for 14 days. 30 g 1 06/17/2023 07/01/2023 Active Comment on above: Apply 1 application to affected area two times a day for 14 days. 2 ml ondansetron 2 mg/ml injection (1 source) Serotonin-3 Receptor Antagonist Start: 06-25-19 4 mg, intravenous, Once as needed, nausea/vomiting, first line, Starting on Luisa 06/24/24 at 0856, For 1 dose, Recovery (only), When administering via IV Push, administer over 3-5 minutes. oxyCODONE hydrochloride 5 mg oral tablet (4 sources) Opioid Agonist Start: 12-23-19 End: 12-28-19 take 5-10 mg by mouth every six hours as needed for pain Oxycodone 5 mg Tablet Discontinued 5 - 10 mg PO EVERY 6 HOURS NEEDED as needed for Pain Score 1-10 35 7 0 December 22, 2024 December 27, 2024 10:26am Osteoarthritis of shoulder Primary osteoarthritis, unspecified shoulder 1-2 q6h prn pain Start: 06-24-2024 End: 07-01-2024 take 1 tablet by mouth every six hours oxyCODONE (Roxicodone) 5 mg immediate release tablet Indications: Postlaminectomy syndrome of lumbar region Take 1 tablet (5 mg) by mouth every 6 hours if needed (severe postoperative pain) for up to 7 days. 15 tablet 06/24/2024 07/01/2024 Active Start: 06-24-2024 take 1 tablet by maximiliano every four hours as needed 5 mg, oral, Every 4 hours PRN, pain moderate (4-6), second line, Starting on Luisa 06/24/24 at 0856, Recovery (only), When able to take oral medications., If ordered PRN for pain, nurse is permitted to administer this medication for higher pain scores based on patient preference? Yes oxygen (O2) therapy (1 source) Start: 06-24-2024 inhalation, Co ntinuous PRN - O2/gases, other, Starting on Luisa 06/24/24 at 0856, Recovery (only), May use simple face mask with oxygen flow as needed to keep O2 sat above 92%, Device: Nasal Cannula, Rate in liters per minute: 4 LPM, Keep O2 Sat Above: 92% perflutren lipid microspheres 1.3 mL in NaCl (PF) 0.9% 10 mL injection (DEFINITY) (13 sources) Start: 12-14-2020 End: 03-15-2022 perflutren lipid microspheres 1.3 mL in NaCl (PF) 0.9% 10 mL injection (DEFINITY) potassium chloride 20 meq extended release oral tablet (20 sources) Start: 12-27-2024 take 1 tablet by mouth twice daily Start: 12-27-2024 take 1 tablet by maximiliano th twice daily Start: 09-17-2023 End: 12-22-2024 take 1 tablet by mouth once daily Potassium Chloride 20 mEq tablet extended release Discontinued 20 meq PO DAILY November 13, 2023 12:00am December 22, 2024 2:49pm Supplement Start: 03-17-2023 End: 09-17-2023 take 1 tablet by mouth twice daily potassium chloride 20 mEq TbER Indications: Hypokalemia Take 1 tablet by mouth two times a day. 180 tablet 3 03/17/2023 09/17/2023 Discontinued (Adjust Sig - Block E-Cancel) Start: 04-23-2021 End: 03-15-2023 take 1 tablet by mouth twice daily potassium chloride 20 mEq TbER Indications: Hypokalemia Take 1 tablet by mouth twice daily. 180 tablet 3 04/19/2022 03/15/2023 Discontinued take 1 tablet by maximiliano once daily potassium chloride CR 20 mEq ER tablet Take 1 tablet (20 mEq) by mouth once daily. Do not crush or chew. Active Comment on above: Take 1 tablet by maximiliano th twice daily. Take 1 tablet by maximiliano two times a day. pravastatin sodium 20 mg oral tablet (20 sources) HMG-CoA Reductase Inhibitor Start: 4 End: 5 take 1 tablet by mouth at bedtime Comment on above: Take 1 tablet by maximiliano th daily at bedtime. predniSONE 20 mg oral tablet (1 source) Start: 4 End: 4 take 1 tablet by mouth once daily at mealtime predniSONE (DELTASONE) 20 mg tablet Take 1 tablet by mouth once daily for 4 days. Take daily with food. 4 tablet 0 06/18/2023 06/22/2023 Active Comment on above: Take 1 tablet by maximiliano once daily for 4 days. Take daily with food. rOPINIRole 4 mg oral tablet (20 sources) Nonergot Dopamine Agonist Start: 5 take 1 tablet by mouth at bedtime Start: 09-17-2023 End: 11-17-2024 take 1 tablet by mouth once daily at bedtime rOPINIRole (REQUIP) 4 mg tablet Indications: Restless leg syndrome Take 1 tablet by mouth daily at bedtime. 90 tablet 1 11/17/2024 Active Start: 10-20-2020 End: 09-17-2023 take 1 tablet by mouth once daily at bedtime rOPINIRole (REQUIP) 3 mg tablet Indications: Restless leg syndrome Take 1 tablet by mouth daily at bedtime. 90 tablet 1 05/19/2023 Active Start: 12-05-2019 End: 12-21-2024 take 3 mg by mouth at dinner Ropinirole 0.5 MG tablet Discontinued 3 mg PO WITH DINNER December 05, 2019 12:00am December 21, 2024 8:46pm restless legs Comment on above: Take 1 tablet by maximiliano daily at bedtime. 125 ml sodium chloride 9 mg/ml prefilled syringe (13 sources) Start: 1 End: 3 sodium chloride 0.9 % (flush) 10 mL (BD POSIFLUSH) spironolactone 50 mg oral tablet (20 sources) Aldosterone Antagonist Start: 3 End: 5 take 1 tablet by mouth once daily Start: 02-15-2022 End: 08-19-2022 take 1 tablet by mouth once daily spironolactone (ALDACTONE) 50 mg tablet Take 1 tablet by mouth once daily. 30 tablet 5 08/19/2022 Active Start: 04-24-2021 End: 08-27-2021 take 1 tablet by mouth once daily spironolactone (ALDACTONE) 50 mg tablet Take 1 tablet by mouth once daily. 30 tablet 5 08/27/2021 Active Comment on above: Take 1 tablet by maximiliano th once daily. Completed/Discontinued Medications Medication Drug Class(es) Dates Sig (Normalized) Sig (Original) 0.9% NaCl 10 mL flush (7 sources) Start: 04-27-2024 End: 04-27-2024 0.9% NaCl 10 mL flush Start: 04-27-2024 End: 04-27-2024 10 mL, OTHER, ONCE, 1 dose, On Fri04/27/24 at 1400 Start: 01-30-2024 End: 01-30-2024 0.9% NaCl 10 mL flush Start: 01-30-2024 End: 01-30-2024 10 mL, OTHER, ONCE, 1 dose, On Fri01/30/24 at 1300 Start: 08-06-2023 End: 08-06-2023 0.9% NaCl 10 mL flush Start: 04-30-2023 End: 04-30-2023 0.9% NaCl 10 mL flush amitriptyline hydrochloride 75 mg oral tablet (2 sources) Tricyclic Antidepressant Start: 02-26-2013 End: 12-21-2024 take 1 tablet by mouth at bedtime Amitriptyline 75 MG tablet Discontinued 75 mg PO AT BEDTIME February 26, 2013 1:00am December 21, 2024 8:45pm sleep amoxicillin 875 mg oral tablet (2 sources) Penicillin-class Antibacterial Start: 07-22-2022 End: 07-29-2022 take 1 tablet by mouth twice daily amoxicillin (AMOXIL) 875 mg tablet Take 1 tablet by mouth twice daily for 7 days. 14 tablet 0 07/22/2022 07/29/2022 Comment on above: Take 1 tablet by maximiliano twice daily for 7 days. Biotin (16 sources) End: 07-22-2022 BIOTIN ORAL Take by mouth as directed. 0 07/22/2022 Discontinued BIOTIN ORAL Take by mouth as directed. 0 Active Comment on above: Take by mouth as dir ected. 30 ml bupivacaine hydrochloride 5 mg/ml injection (4 sources) Amide Local Anesthetic Start: 04-27-2024 End: 04-27-2024 BUPivacaine (PF) 0.5 % (5 mg/mL) 5 mg injection Start: 04-27-2024 End: 04-27-2024 5 mg, OTHER, ONCE, 1 dose, O n Fri04/27/24 at 1400 Start: 08-06-2023 End: 08-06-2023 bupivacaine(PF) 0.75 % (7.5 mg/mL) 7.5 mg injection (MARCAINE PF) Calcium (4 sources) Phosphate Binder, Calcium Start: 01-03-2015 take 1 tablet by mouth once daily CALCIUM + D TABLET 1 by mouth once a day CALCIUM + D TABLET Karlee Grullon AT [id number] (Caltrate 600-D Plus Minerals) 600 mg calcium- 800 unit-50 mg tablet Take 600 mg by mouth once daily. Active cephalexin 500 mg oral capsule (18 sources) Cephalosporin Antibacterial Start: 04-22-2024 End: 09-17-2024 cephALEXin (KEFLEX) 500 mg capsule Indications: skin and skin structure infection Take 1 capsule by mouth three times a day. Please start 1 day prior to your scheduled procedure in the morning, and complete the full 5 day course. 15 capsule 04/22/2024 09/17/2024 Discontinued (Course of therapy completed) Start: 11-15-2023 End: 12-21-2024 take 1 capsule by mouth twice daily Cephalexin 500 mg capsule Discontinued 500 mg PO TWICE A DAY 10 0 November 15, 2023 12:00am December 21, 2024 8:45pm Start: 12-27-2022 End: 01-01-2023 take 1 capsule by mouth four times daily cephALEXin (KEFLEX) 500 mg capsule Take 1 capsule by mouth four times daily for 5 days. 20 capsule 0 12/27/2022 01/01/2023 Active Comment on above: Take 1 capsule by mo uth four times daily for 5 days. colchicine 0.6 mg oral tablet (20 sources) Start: 06-24-2023 End: 03-19-2024 take 1 tablet by mouth three times daily colchicine 0.6 mg tablet Take one tab by mouth 3 times a day till pain stops or script finished. 10 tablet 1 06/24/2023 03/19/2024 Discontinued Comment on above: Take one tab by mout h 3 times a day till pain stops or script finished. DAILY MULTIVITAMIN TAB (20 sources) Start: 04-11-2005 End: 03-19-2024 take 1 tablet by mouth once daily DAILY MULTIVITAMIN TAB Take by mouth. 0 04/11/2005 03/19/2024 Discontinued Start: 04-11-2005 take 1 tablet by maximiliano once daily DAILY MULTIVITAMIN TAB Take by mouth. 0 04/11/2005 Active Start: 04-11-2005 DAILY MULTIVIT AKINS TAB Take one(1) tablet daily. 0 04/11/2005 Active Comment on above: Take one(1) tablet d aily. Take by mouth. 1 ml dexamethasone phosphate 10 mg/ml injection (7 sources) Corticosteroid Start: 03-23-2024 End: 03-23-2024 dexAMETHasone sodium phosphate 10 mg injection (DECADRON) Start: 03-23-2024 End: 03-23-2024 10 mg, OTHER, ONCE, 1 dose, On Fri03/23/24 at 1430, Administer over 5 minutes. Start: 01-30-2024 End: 01-30-2024 dexAMETHasone sodium phospha te 10 mg injection (DECADRON) Start: 01-30-2024 End: 01-30-2024 10 mg, OTHER, ONCE, 1 dose, On Fri01/30/24 at 1630, Administer over 5 minutes. Start: 11-21-2023 End: 11-21-2023 dexAMETHasone sodium phospha te 10 mg injection (DECADRON) Start: 11-21-2023 End: 11-21-2023 10 mg, OTHER, ONCE, 1 dose, On Fri11/21/23 at 0900 Start: 04-30-2023 End: 04-30-2023 dexAMETHasone sodium phospha te 10 mg injection (DECADRON) diclofenac potassium 50 mg oral tablet (13 sources) Nonsteroidal Anti-inflammatory Drug Start: 12-19-2023 End: 03-18-2024 take 1 tablet by mouth twice daily diclofenac potassium (CATAFLAM) 50 mg tablet Indications: Lumbar radiculopathy Take 1 tablet by mouth two times a day. 60 tablet 2 12/19/2023 03/18/2024 fluticasone propionate 0.05 mg/actuat metered dose nasal spray (20 sources) Corticosteroid Start: 09-05-2021 End: 07-22-2022 take 2 spray(s) by mouth once daily fluticasone (FLONASE) 50 mcg/actuation nasal spray Use 2 Sprays in each nostril once daily. Rinse mouth after use. 1 Each 0 09/05/2021 07/22/2022 Discontinued Comment on above: Use 2 Sprays in each nostril once daily. Rinse mouth after use. hydroCHLOROthiazide 25 mg / triamterene 37.5 mg oral tablet (3 sources) Potassium-sparing Diuretic, Thiazide Diuretic Start: 02-26-2013 End: 12-21-2024 take 1 tablet by mouth once daily Triamterene-[place] chlorothiazid (Maxzide-25mg) 1 EACH tablet Discontinued 1 {tbl} PO DAILY February 26, 2013 1:00am December 21, 2024 8:46pm diuretic hydrOXYzine hydrochloride 25 mg oral tablet (11 sources) Antihistamine Start: 04-19-2022 End: 07-22-2022 take 1 tablet by mouth every six hours as needed hydrOXYzine HCl (ATARAX) 25 mg tablet Take 1 tablet by mouth every 6 hours as needed for itching/rash. 30 tablet 1 05/17/2022 07/22/2022 Discontinued Comment on above: Take 1 tablet by maximiliano th every 6 hours as needed for itching/rash. iohexol 300 mg injection (OMNIPAQUE 300) (7 sources) Start: 03-23-2024 End: 03-23-2024 iohexol 300 mg injection (OMNIPAQUE 300) Start: 03-23-2024 End: 03-23-2024 300 mg, OTHER, ONCE, 1 dose, On Fri03/23/24 at 1430 Start: 01-30-2024 End: 01-30-2024 iohexol 300 mg injection (OM NIPAQUE 300) Start: 01-30-2024 End: 01-30-2024 300 mg, OTHER, ONCE, 1 dose, On Fri01/30/24 at 1300 Start: 11-21-2023 End: 11-21-2023 iohexol 300 mg injection (OM NIPAQUE 300) Start: 11-21-2023 End: 11-21-2023 300 mg, OTHER, ONCE, 1 dose, On Fri11/21/23 at 0900 Start: 04-30-2023 End: 04-30-2023 iohexol 300 mg injection (OM NIPAQUE 300) ammonium lactate 120 mg/ml topical cream (20 sources) Start: 04-19-2022 End: 03-19-2024 ammonium lactate (LAC-HYDRIN) 12 % cream Apply to affected area as needed. 140 g 1 04/19/2022 03/19/2024 Discontinued Comment on above: Apply to affected ar ea as needed. 10 ml lidocaine hydrochloride 10 mg/ml injection (15 sources) Antiarrhythmic, Amide Local Anesthetic Start: 04-27-2024 End: 04-27-2024 lidocaine (PF) 10 mg/mL (1 %) 100 mg injection (XYLOCAINE) Start: 04-27-2024 End: 04-27-2024 100 mg, OTHER, ONCE, 1 dose, On Fri04/27/24 at 1400 Start: 03-23-2024 End: 03-23-2024 lidocaine (PF) 10 mg/mL (1 % ) 100 mg injection (XYLOCAINE) Start: 03-23-2024 End: 03-23-2024 100 mg, OTHER, ONCE, 1 dose, On Fri03/23/24 at 1430 Start: 01-30-2024 End: 01-30-2024 lidocaine (PF) 10 mg/mL (1 % ) 100 mg injection (XYLOCAINE) Start: 01-30-2024 End: 01-30-2024 100 mg, OTHER, ONCE, 1 dose, On Fri01/30/24 at 1300 Start: 11-21-2023 End: 11-21-2023 lidocaine (PF) 10 mg/mL (1 % ) 100 mg injection (XYLOCAINE) Start: 11-21-2023 End: 11-21-2023 100 mg, OTHER, ONCE, 1 dose, On Fri11/21/23 at 0900 Start: 08-06-2023 End: 08-06-2023 lidocaine (PF) 20 mg/mL (2 % ) 200 mg injection (XYLOCAINE) Start: 07-17-2023 End: 07-17-2023 lidocaine (PF) 20 mg/mL (2 % ) 200 mg injection (XYLOCAINE) Start: 05-26-2023 End: 05-26-2023 lidocaine (PF) 10 mg/mL (1 % ) 100 mg injection (XYLOCAINE) Start: 05-26-2023 End: 05-26-2023 lidocaine (PF) 20 mg/mL (2 % ) 200 mg injection (XYLOCAINE) Start: 04-30-2023 End: 04-30-2023 lidocaine (PF) 10 mg/mL (1 % ) 100 mg injection (XYLOCAINE) meclizine hydrochloride 12.5 mg oral tablet (20 sources) Antiemetic Start: 09-05-2021 End: 07-22-2022 take 1 tablet by mouth every six hours as needed meclizine (ANTIVERT) 12.5 mg tab Take 1 tablet by mouth every 6 hours as needed (dizziness). 15 tablet 1 09/05/2021 07/22/2022 Discontinued Comment on above: Take 1 tablet by maximiliano th every 6 hours as needed (dizziness). meloxicam 15 mg oral tablet (1 source) Nonsteroidal Anti-inflammatory Drug Start: 02-25-2023 End: 03-20-2023 take 1 tablet by mouth once daily at mealtime meloxicam (MOBIC) 15 mg tablet Indications: Acute right-sided low back pain with right-sided sciatica , Acute hip pain, right Take 1 tablet by mouth once daily. With food. 30 tablet 02/25/2023 03/20/2023 Discontinued 1 ml methylPREDNISolone acetate 40 mg/ml injection (20 sources) Corticosteroid Start: 01-30-2024 End: 01-30-2024 methylPREDNISolone acetate 40 mg injection (DEPO-Medrol) Start: 09-30-2023 End: 01-30-2024 methylPREDNISolone (MEDROL, GLENNA,) 4 mg Dose-Pack As Instructed per package 21 tablet 09/30/2023 01/30/2024 Discontinued Start: 09-30-2023 methylPREDNISo lone (MEDROL, GLENNA,) 4 mg Dose-Pack As Instructed per package 21 tablet 09/30/2023 Active Start: 09-30-2023 methylPREDNISo lone (MEDROL, GLENNA,) 4 mg Dose-Pack As Instructed per package 21 tablet 0 09/30/2023 Active Start: 08-06-2023 End: 08-06-2023 methylPREDNISolone acetate 4 0 mg injection (DEPO-Medrol) Start: 07-23-2023 End: 07-29-2023 methylPREDNISolone (MEDROL, GLENNA,) 4 mg Dose-Pack Indications: Primary osteoarthritis of both knees As pkg directs 21 tablet 0 07/23/2023 07/29/2023 Active Start: 05-26-2023 End: 05-26-2023 methylPREDNISolone acetate 4 0 mg injection (DEPO-Medrol) Start: 05-12-2023 End: 06-18-2023 methylPREDNISolone (MEDROL, GLENNA,) 4 mg Dose-Pack Indications: Lumbar radiculopathy As Instructed per package 21 tablet 0 05/12/2023 06/18/2023 Discontinued Start: 05-12-2023 methylPREDNISo lone (MEDROL, GLENNA,) 4 mg Dose-Pack Indications: Lumbar radiculopathy As Instructed per package 21 tablet 0 05/12/2023 Active Comment on above: As Instructed per shanthi puckett MULTIVITAL ORAL TABLET (1 source) Start: take 1 tablet by mouth once daily MULTIVITAL ORAL TABLET 1 tablet by mouth once a day MULTIVITAL ORAL TABLET Jes Garcia LPN naproxen 500 mg oral tablet (15 sources) Nonsteroidal Anti-inflammatory Drug Start: End: take 1 tablet by mouth every twelve hours as needed naproxen (NAPROSYN) 500 mg tablet Take 1 tablet by mouth two times a day as needed (for pain/inflammation). Take with food. 60 tablet 03/20/2023 06/18/2023 Discontinued Comment on above: Take 1 tablet by [facility] two times a day as needed (for pain/inflammation). Take with food. povidone-iodine 50 mg/ml topical solution (1 source) Antiseptic Start: End: Topical, Once, On Luisa 06/24/24 at 0700, For 1 dose, Preprocedure, Apply povidone iodine 5% to surgical area and bilateral nares (unless allergic) in pre-op the morning of surgery. Start: 06-24-2024 End: 06-24-2024 Topical, Once, On Luisa 5 at 0700, For 1 dose, Preprocedure, Apply povidone iodine 5% to surgical area and bilateral nares (unless allergic) in pre-op the morning of surgery. pregabalin 50 mg oral capsul e (20 sources) Start: 10-16-2023 End: 09-17-2024 pregabalin (LYRICA) 50 mg ca psule Indications: fibromyalgia Take one pill twice daily 60 capsule 5 10/16/2023 09/17/2024 Discontinued (Course of therapy completed) Start: 03-31-2021 End: 11-14-2023 take 1 capsule by mouth once daily Pregabalin (Lyrica) 75 mg Capsule Discontinued 75 mg PO DAILY March 31, 2021 1:00am November 14, 2023 1:16am End: 06-18-2023 take 1 capsule by mouth three times daily pregabalin (LYRICA) 50 mg capsule Take 50 mg by mouth three times a day. 0 06/18/2023 Discontinued Comment on above: Take 50 mg by mouth three times a day. vitamin b12 1 mg oral tablet (20 sources) Vitamin B12 Start: 11-09-2023 End: 09-17-2024 take 1 tablet by mouth once daily cyanocobalamin (VITAMIN B-12) 1,000 mcg tab Take 1 tablet by mouth once daily. 11/09/2023 09/17/2024 Discontinued (Course of therapy completed) Problems Active Problems Problem Classification Problem Date Documented Date Episodic/Chronic Deficiency and other anemia (20 sources) Anemia of chronic disease; Translations: [Anemia in other chronic diseases classified elsewhere] Onset: 11-09-2023 11-09-2023 Chronic Deficiency and other anemia (1 source) Anemia in other chronic diseases classified elsewhere; Translations: [Anemia, chronic disease] Onset: 11-09-2023 Chronic Deficiency and other anemia (4 sources) Anemia; Translations: [Anemia, unspecified] 09-17-2023 Episodic Deficiency and other anemia (4 sources) Chronic anemia; Translations: [Anemia, unspecified] 12-30-2024 Episodic Disorders of lipid metabolism (20 sources) Mixed hyperlipidemia; Translations: [Mixed hyperlipidemia] Onset: 10-13-2014 08-14-2015 Chronic Essential hypertension (20 sources) Essential hypertension; Translations: [Essential (primary) hypertension] Onset: 08-14-2015 08-14-2015 Chronic Genitourinary symptoms and ill-defined conditions (4 sources) Increased frequency of urination; Translations: [Frequency of micturition] Onset: 01-11-2025 Episodic Heart valve disorders (4 sources) Systolic murmur; Translations: [Cardiac murmur, unspecified] Onset: 06-16-2024 06-17-2024 Episodic Hemorrhoids (20 sources) Internal hemorrhoids; Translations: [Other hemorrhoids] 03-25-2018 Episodic Melanomas of skin (20 sources) Malignant melanoma of shoulder; Translations: [Malignant melanoma of unspecified upper limb, including shoulder] Onset: 04-10-2013 03-05-2021 Chronic Menopausal disorders (2 sources) Primary ovarian failure; Translations: [Other primary ovarian failure] 09-17-2023 Chronic Mycoses (1 source) Candidiasis of skin; Translations: [Candidiasis of skin and nail] 06-17-2023 Episodic Noninfectious gastroenteritis (2 sources) Gastroenteritis; Translations: [Noninfective gastroenteritis and colitis, unspecified] 02-27-2013 Episodic Nutritional deficiencies (20 sources) Vitamin D deficiency; Translations: [Vitamin D deficiency, unspecified] Onset: 08-24-2016 12-04-2020 Chronic Occlusion or stenosis of precerebral arteries (1 source) Bilateral stenosis of carotid arteries; Translations: [Occlusion and stenosis of bilateral carotid arteries] Onset: 10-11-2024 10-11-2024 Chronic Osteoarthritis (20 sources) Osteoarthritis; Translations: [Primary osteoarthritis, unspecified shoulder] Onset: 09-15-2017 09-15-2017 Chronic Other aftercare (1 source) Post-discharge follow-up; Translations: [Encounter for follow-up examination after completed treatment for conditions other than malignant neoplasm] 11-28-2023 Episodic Other circulatory disease (20 sources) Raynaud's phenomenon; Translations: [Raynaud's syndrome without gangrene] Onset: 06-07-2020 10-20-2020 Chronic Other circulatory disease (2 sources) Bruit; Translations: [Other specified symptoms and signs involving the circulatory and respiratory systems] 09-17-2024 Episodic Other circulatory disease (2 sources) Low blood pressure; Translations: [Hypotension, unspecified] 11-23-2023 Episodic Other connective tissue disease (1 source) Pain in hallux; Translations: [Pain in left toe(s)] 06-17-2023 Episodic Other connective tissue disease (2 sources) Swelling of lower limb; Translations: [Other specified soft tissue disorders] 06-17-2024 Episodic Other connective tissue disease (2 sources) Other specified soft tissue disorders; Translations: [Other specified soft tissue disorders] Onset: 06-16-2024 Episodic Other connective tissue disease (6 sources) H/O: musculoskeletal disease; Translations: [Personal history of other diseases of the musculoskeletal system and connective tissue] 03-15-2013 Episodic Other diseases of kidney and ureters (1 source) Renal impairment; Translations: [Disorder of kidney and ureter, unspecified] 06-03-2024 Episodic Other ear and sense organ disorders (20 sources) Asymmetrical sensorineural hearing loss; Translations: [Sensorineural hearing loss, bilateral] Onset: 10-08-2017 03-25-2018 Chronic Other hereditary and degenerative nervous system conditions (20 sources) Restless legs; Translations: [Restless legs syndrome] Onset: 06-24-2024 Chronic Other hereditary and degenerative nervous system conditions (1 source) Restless legs syndrome; Translations: [Restless leg syndrome] Onset: 09-15-2012 Chronic Other inflammatory condition of skin (20 sources) Psoriasis; Translations: [Other psoriasis] Onset: 04-16-2013 02-21-2016 Chronic Other inflammatory condition of skin (1 source) Itching of skin; Translations: [Pruritus, unspecified] Episodic Other injuries and conditions due to external causes (2 sources) Injury of head; Translations: [Unspecified injury of head, initial encounter] Episodic Other liver diseases (1 source) Alkaline phosphatase raised; Translations: [Abnormal levels of other serum enzymes] 09-17-2023 Episodic Other nervous system disorders (20 sources) Carpal tunnel syndrome of left wrist; Translations: [Carpal tunnel syndrome, left upper limb] Onset: 08-17-2020 08-17-2020 Chronic Other non-traumatic joint disorders (1 source) Hip pain; Translations: [Pain in right hip] 02-25-2023 Episodic Other non-traumatic joint disorders (2 sources) Pain in right hip; Translations: [Pain in right hip] Onset: 01-03-2025 Episodic Other non-traumatic joint disorders (1 source) Pain in left shoulder; Translations: [Acute pain of left shoulder] Onset: 12-29-2024 Episodic Other nutritional; endocrine; and metabolic disorders (20 sources) Obesity; Translations: [Obesity, unspecified] Onset: 03-29-2016 03-12-2017 Chronic Other nutritional; endocrine; and metabolic disorders (1 source) Hypercalcemia; Translations: [Hypercalcemia] 07-03-2023 Chronic Other nutritional; endocrine; and metabolic disorders (20 sources) Hypomagnesemia; Translations: [Hypomagnesemia] Onset: 12-18-2023 11-28-2023 Chronic Other nutritional; endocrine; and metabolic disorders (2 sources) Hypocalcemia; Translations: [Hypocalcemia] 11-23-2023 Chronic Other nutritional; endocrine; and metabolic disorders (1 source) Hypomagnesemia; Translations: [Hypomagnesemia] Onset: 12-18-2023 Chronic Other upper respiratory infections (2 sources) Acute sinusitis; Translations: [Acute sinusitis, unspecified] 02-10-2023 Episodic Nafisa-; endo-; and myocarditis; cardiomyopathy (except that caused by tuberculosis or sexually transmitted disease) (20 sources) Heart valve disorder; Translations: [Endocarditis, valve unspecified] Onset: 10-20-2020 10-20-2020 Chronic Residual codes; unclassified (1 source) H/O Spinal surgery; Translations: [Presence of other specified functional implants] 07-07-2024 Chronic Residual codes; unclassified (2 sources) Presence of other specified functional implants; Translations: [Presence of other specified functional implants] Onset: 07-07-2024 Chronic Skin and subcutaneous tissue infections (1 source) Paronychia of finger of right hand; Translations: [Cellulitis of right finger] 12-27-2022 Episodic Spondylosis; intervertebral disc disorders; other back problems (20 sources) Lumbar spondylosis; Translations: [Spondylosis without myelopathy or radiculopathy, lumbar region] Onset: 09-15-2012 01-03-2015 Chronic Syncope (10 sources) Syncope; Translations: [Syncope and collapse] Onset: 12-28-2024 04-08-2021 Episodic Thyroid disorders (20 sources) Multinodular goiter; Translations: [Nontoxic multinodular goiter] Onset: 09-15-2017 04-30-2021 Chronic Unclassified (1 source) Preprocedural examination done 06-17-2024 Unclassified (1 source) Autogenerated Problem Onset: 06-25-2024 06-25-2024 Urinary tract infections (4 sources) Recurrent urinary tract infection; Translations: [Urinary tract infection, site not specified] 11-28-2023 Episodic Past or Other Problems Problem Classification Problem Date Documented Date Episodic/Chronic Administrative/social admission (20 sources) Advance directive discussed with patient; Translations: [Other specified counseling] Onset: 04-23-2021 Episodic Allergic reactions (20 sources) Radiation-induced dermatosis; Translations: [Other skin changes due to chronic exposure to nonionizing radiation] Onset: 7 02-21-2016 Episodic Complication of device; implant or graft (1 source) Complication of internal fixation device; Translations: [Unspecified complication of internal orthopedic prosthetic device, implant and graft, subsequent encounter] Onset: 1 02-21-2021 Episodic Conditions associated with dizziness or vertigo (20 sources) Vertigo; Translations: [Dizziness and giddiness] Onset: 2 Episodic Deficiency and other anemia (1 source) Anemia, unspecified; Translations: [Anemia, unspecified type] Onset: 5 Episodic Diabetes mellitus without complication (1 source) Abnormal glucose level; Translations: [Other abnormal glucose] Onset: 1 12-04-2020 Episodic Fluid and electrolyte disorders (20 sources) Hypokalemia; Translations: [Hypokalemia] Onset: 3 03-12-2017 Episodic Immunizations and screening for infectious disease (1 source) Encounter for immunization; Translations: [Encounter for immunization] Onset: 5 Episodic Nutritional deficiencies (20 sources) Cobalamin deficiency; Translations: [Deficiency of other specified B group vitamins] Onset: 4 11-09-2023 Episodic Other acquired deformities (20 sources) Lumbar spondylolisthesis; Translations: [Spondylolisthesis, lumbar region] Onset: 3 02-21-2016 Episodic Other acquired deformities (20 sources) Spondylolisthesis L5/S1 level; Translations: [Spondylolisthesis, lumbosacral region] Onset: 3 02-21-2016 Episodic Other aftercare (20 sources) Patient encounter status; Translations: [Other rat exterminator (current) drug therapy] Onset: 5 Resolved: 7 09-22-2018 Episodic Other bone disease and musculoskeletal deformities (20 sources) Senile osteopenia; Translations: [Other specified disorders of bone density and structure, unspecified site] Onset: 6 12-27-2020 Episodic Other bone disease and musculoskeletal deformities (1 source) Other specified disorders of bone density and structure, unspecified site; Translations: [Osteopenia, senile] Onset: 4 Episodic Other circulatory disease (1 source) Other specified symptoms and signs involving the circulatory and respiratory systems; Translations: [Bruit] Onset: 5 Episodic Other connective tissue disease (1 source) History of operative procedure on lumbar spinal structure; Translations: [Arthrodesis status] Onset: 5 01-03-2015 Episodic Other connective tissue disease (20 sources) History of lumbar fusion; Translations: [Arthrodesis status] Onset: 2 Resolved: 2 05-28-2021 Episodic Other diseases of kidney and ureters (1 source) Disorder of kidney and ureter, unspecified; Translations: [Renal insufficiency] Onset: 5 Episodic Other non-epithelial cancer of skin (20 sources) History of malignant neoplasm of skin; Translations: [Personal history of other malignant neoplasm of skin] Onset: 4 03-12-2017 Episodic Other non-traumatic joint disorders (20 sources) Hand joint stiff; Translations: [Stiffness of unspecified hand, not elsewhere classified] Onset: 2 02-21-2016 Episodic Other nutritional; endocrine; and metabolic disorders (20 sources) Hyperuricemia; Translations: [Hyperuricemia without signs of inflammatory arthritis and tophaceous disease] Onset: 4 06-18-2023 Episodic Other screening for suspected conditions (not mental disorders or infectious disease) (20 sources) Thyroid function tests abnormal; Translations: [Other specified abnormal findings of blood chemistry] Onset: 0 04-28-2019 Episodic Other skin disorders (20 sources) Actinic keratosis; Translations: [Actinic keratosis] Onset: 7 09-22-2018 Episodic Other skin disorders (20 sources) Seborrheic keratosis; Translations: [Other seborrheic keratosis] Onset: 7 02-21-2016 Episodic Other skin disorders (20 sources) Solar lentigo; Translations: [Other melanin hyperpigmentation] Onset: 4 02-21-2016 Episodic Other skin disorders (20 sources) Asteatosis cutis; Translations: [Xerosis cutis] Onset: 4 02-21-2016 Episodic Other skin disorders (20 sources) Disorder of skin pigmentation; Translations: [Disorder of pigmentation, unspecified] Onset: 7 Resolved: 4 03-22-2013 Episodic Other skin disorders (20 sources) Disorder of sebaceous gland; Translations: [Other specified follicular disorders] Onset: 7 Resolved: 4 03-22-2013 Episodic Residual codes; unclassified (1 source) Menopause present; Translations: [Asymptomatic menopausal state] Onset: 1 12-19-2020 Episodic Residual codes; unclassified (20 sources) Bilateral lower limb edema; Translations: [Localized edema] Onset: 6 08-14-2015 Episodic Residual codes; unclassified (20 sources) Insomnia; Translations: [Insomnia, unspecified] Onset: 6 10-13-2014 Episodic Residual codes; unclassified (20 sources) Active living will ; Translations: [Other specified health status] Onset: 3 07-22-2022 Episodic Residual codes; unclassified (20 sources) Family history of malignant neoplasm of gastrointestinal tract; Translations: [Family history of malignant neoplasm of digestive organs] Onset: 6 Resolved: 7 03-27-2016 Episodic Residual codes; unclassified (1 source) Localized edema; Translations: [Bilateral leg edema] Onset: 6 Episodic Screening and history of mental health and substance abuse codes (2 sources) Encounter for screening for depression; Translations: [Encounter for screening examination for other mental health and behavioral disorders] Onset: 5 Episodic Spondylosis; intervertebral disc disorders; other back problems (20 sources) Spinal stenosis of lumbar region; Translations: [Spinal stenosis, lumbar region without neurogenic claudication] Onset: 1 11-08-2020 Episodic Unclassified (1 source) Problem Results Test Name Value Interpretation Reference Range Facility Cardiology Visit Reporton Cardiology Visit Report [facility] [address] [place] [address] OFFICE VISIT Date of Service: 01/18/25 MR#: [id number] Acct: [id number] Name: SPENSER PUTNAM Rep #: [id number] : 1940 Provider: Dr. Fazal brian DO Age/Sex: 84/F Location: [facility] [facility] Status: Signed HPI HPI History of Present Illness Details: Patient is an 84-year-old female with past medical history including hyperlipidemia, hypertension, nonobstructive bilateral carotid stenosis, syncope. Patient has multiple presentations to ED for concerns of syncope, last presentation in 12/22/2024. Patient was sitting in chair and was feeling abdominal discomfort and constipation. Patient suddenly lost consciousness briefly and was transported to [place] ED where workup was overall benign. Echocardiogram showed preserved biventricular function without hemodynamically significant valvular disease. EKG showed sinus heart rate rate of 57, with no evidence of conduction disease. QRS is narrow, EKG overall normal. Patient had long-term Holter report, where average heart rate was 85 bpm and sinus rhythm. Less than 1% ventricular ectopics and supraventricular ectopics patient did not have any triggers. There was no atrial fibrillation noted. Medications include aspirin 81 mg daily, pravastatin 20 mg daily. Patient seen in cardiology clinic today. She admits she feels well with no acute complaints. She has no exertional symptoms and denies cardiac symptoms. She has had very infrequent episodes of loss of consciousness. She admits that the last episode was over a year ago. She admits that events occur after eating. She will sit down on the couch and relax and then will begin to feel dizzy nauseous and then briefly lose consciousness. She then quickly recovers and does not have residual symptoms. Episodes are nonexertional and do not occur with cardiac symptoms.. 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 Is patient in pain?: No Allergies Sulfa (Sulfonamide Antibiotics) Allergy (Verified 01/18/25 10:54) Swelling acetaminophen (From Vicodin) Adverse Reaction (Verified 01/18/25 10:54) Vomiting hydrocodone bitartrate (From Vicodin) Adverse Reaction (Verified 01/18/25 10:54) Vomiting promethazine HCl (From Phenergan) Adverse Reaction (Verified 01/18/25 10:54) Vomiting Medications ???Medication ???Instructions ???Recorded ???Confirmed ???Type aspirin 81 mg chewable tablet 81 mg PO DAILY@0800 heart health 1 04/29/12 01/18/25 History calcium 600 mg (as 600 mg PO DINNER supplement 01/18/25 History carbonate)-vitamin D3 20 mcg (800 unit) tablet pravastatin 20 mg tablet 20 mg PO QHS cholesterol 12/05/19 01/18/25 History cholecalciferol (vitamin D3) 25 25 mcg PO DAILY 12/21/24 01/18/25 History mcg (1,000 unit) capsule magnesium 200 mg tablet 400 mg PO DAILY 12/21/24 01/18/25 History ropinirole 4 mg tablet 4 mg PO QHS 12/21/24 01/18/25 Hist ory potassium chloride 20 mEq 20 meq PO QDAY 01/18/25 01/18/25 H istory tablet,extended release (K-Tab) Ejection fraction %: 65 Have you fallen in the past year?: No PFSH Medical History Syncope Insomnia Carotid artery stenosis History of spinal stenosis Chronic anemia Elevated d-dimer HLD (hyperlipidemia) HTN (hypertension) Back pain with radiculopathy Anxiety and depression RLS (restless legs syndrome) BPPV (benign paroxysmal positional vertigo) Surgical History Spinal cord stimulator status History of surgery History of bunionectomy H/O melanoma excision History of tonsillectomy History of colonoscopy H/O abdominal surgery Previous back surgery S/P cholecystectomy Family History Mother Heart disease Hypertension Thyroid disorder Father Heart disease Hypertension CVA (cerebral vascular accident) Grandmother CAD (coronary artery disease) Myocardial infarction Daughter Diabetes Social History household members: spouse Smoking Status: Never smoker alcohol intake: never substance use type: does not use ROS ROS Narrative 14 point review of systems reviewed, and negative unless specified in HPI above. Cardiology Exam Exam Narrative ???Gen: A Ox3, NAD ???HEENT: Normocephalic/Atraum atic, MMM ???Neck: Supple, no JVD ???Pulm: Normal work of breathing, CTA bilaterally wit (more content not included)... Normal [facility] Inj/Asp Jose Jt Should/Hip/Kn eeon 01-17-2025 Inj/Asp Jose Jt Should/Hip/Knee [facility] [address] [place], [place] [address] Inj/Asp Jose Jt Should/Hip/Knee MR#: [id number] Acct: [id number] Name: SPENSER PUTNAM Rep #: [id number] : 1940 F 84 From: Corona mackey MD PCP: Dr. Juan Spann MD Status: REG CLI Study: Inj/Asp Jose Jt Should/Hip/Knee Date of Exam: 03/19/24 Exam# [id number] Ordering Dr: Dequan Ayala MD PROCEDURE: INJ/ASP JOSE JT SHOULD/HIP/KNEE 01/17/2025 REASON FOR EXAM: RT HIP PAIN, ARTHRITIS OF RT HIP TECHNIQUE: Procedure Code: RADINJ/ASP MJ Modality: DX Procedure: INJ/ASP JOSE JT SHOULD/HIP/KNEE The procedure as well as the benefits and possible complications were explained to the patient including infection and bleeding. Informed consent was obtained. The patient was in the supine position. The overlying skin was prepped and draped in the usual sterile fashion. Following local anesthetic application, a 22 gauge spinal needle was placed into the right hip joint. 2 cc of Isovue 300 was injected for confirmation. Following this, 80 mg of Kenalog and 3 cc of 0.5% Marcaine was injected. The patient tolerated the procedure well. Radiation dose: 4.1 mGy. Fluoroscopy: 22 seconds. 1 image was submitted. COMPARISON: None FINDINGS: Successful right hip injection. RAD/Inj/Asp Jose Jt Should/Hip/Knee IMPRESSION: Successful right hip injection. The patient tolerated the procedure well without any immediate complication. Reading Location: [facility] CC: Dr. Dequan Ayala MD; Dr. Juan Spann MD Ring Facer: S[facility] Tele[facility] (ORTHWS) SPENSER PUTNAM ([id number]) 1940 F Date Time Provider Department 01/14/25 DEQUAN AYALA During your visit today, we recorded the following information about you: Roxy Torres MA 01/14/2025 9:01 AM Signed Received a call from [facility]. Patient is scheduled for a hip injection on Friday at 1:30 pm. They need the order changed. Order must state strength of Marcaine and with or without epi. Below is current order they have. Dx: Right hip pain [M25.551 (ICD-10-CM)]; Arthritis of right hip [M16.11 (ICD-10-CM)] Comments: 80mg Kenalog (or equiv) 2-3cc Marcaine (or equiv) Lana Barajas PA-C 01/17/2025 8:44 AM Signed New order in [facility]. Roxy Torres MA 01/17/2025 8:45 AM Signed Order faxed to [facility]. Confirmation received. Allergies As of Date: 01/14/2025 Noted Allergy Reaction SULFA (SULFONAMIDE ANTIBIOTICS) 04/11/2005 7 - Swelling 10 - Anaphylaxis Comments: Tongue/ throat swelled [place] 03/18/2013 11 - Vomiting Comments: Vomiting TRAMADOL 12/30/2024 1 - Mental Status Change HYDROCODONE-ACETAMIN OPHEN 12/30/2011 8 - GI Upset Comments: NAUSEA PROCARDIA (NIFEDIPINE) 06/26/2020 7 - Swelling Comments: legs Date Reviewed: 01/03/2025 Reviewed by: Roxy Torres MA - Fully Assessed Reason for Visit: Orders [681] Prescriptions as of 01/17/2025 - ondansetron (ZOFRAN) 4 mg tablet Take 1 tablet by mouth every 8 hours as needed for nausea/vomiting. - nitrofurantoin monohydrate and macrocrystal (MACROBID) 100 mg capsule Take 1 capsule by mouth two times a day with meals for 7 days. - lisinopril (ZESTRIL) 10 mg tablet Take 1 tablet by mouth once daily. - omeprazole (PRILOSEC) 20 mg capsule Take 1 capsule by mouth once daily. - spironolactone (ALDACTONE) 50 mg tablet Take 1 tablet by mouth once daily. - rOPINIRole (REQUIP) 4 mg tablet Take 1 tablet by mouth daily at bedtime. - pravastatin (PRAVACHOL) 20 mg tablet Take 1 tablet by mouth daily at bedtime. - Magnesium 250 mg tab Take 1 tablet by mouth once daily. - cholecalciferol, vitamin D3, (VITAMIN D3 ORAL) Take by mouth. - aspirin, enteric coated (ADULT LOW DOSE ASPIRIN) 81 mg EC tablet Take 1 tablet by mouth once daily. - calcium carbonate(CALTRATE 600 600 MG (1,500 MG) TAB) Problem List As Of Date 01/14/2025 Noted Resolved Osteopenia, senile [M85.80] 07/02/2005 Bilateral leg edema [R60.0] 07/02/2005 Family history of malignant neoplasm of gastroi*07/02/2005 03/27/2016 Insomnia, unspecified [G47.00] 07/02/2005 Actinic Keratoses: Premalignant AK's [L57.0] 03/27/2006 Other chronic dermatitis due to solar radiation*03/27/2006 SOLAR LENGINES////DYSCHROM IA OTHER [L81.9] 03/27/2006 03/22/2013 XEROSIS////SEBACEOUS GLAND DIS NEC [L73.8] 03/27/2006 03/22/2013 Other seborrheic keratosis [L82.1] 06/23/2006 Routine general medical examination at [facility]*08/24/2008 07/29/2011 Class: Chronic Routine gynecological examination [Z01.419] 08/24/2008 07/29/2011 Class: Chronic Restless leg syndrome [G25.81] Hand joint stiff [M25.649] 02/11/2012 Lumbar disc herniation [M51.26] 09/15/2012 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 [M43.16]09/15/2012 Hypokalemia [E87.6] 10/20/2012 Spondylolisthesis at L5-S1 level [M43.17] 10/20/2012 Solar lentigo [L81.4] 03/22/2013 Xerosis cutis [L85.3] 03/22/2013 Personal history of other malignant neoplasm of*03/22/2013 Other psoriasis [L40.8] 04/16/2013 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] 04/10/2013 Mixed hyperlipidemia [E78.2] 10/13/2014 Routine gynecological examination [Z01.419] 10/13/2014 03/27/2016 Colon cancer screening [Z12.11] 10/13/2014 03/27/2016 Well adult exam [Z00.00] 10/13/2014 03/27/2016 Essential hypertension with goal blood pressure*08/14/2015 Encounter for screening mammogram for breast ca*02/21/2016 03/27/2016 Non morbid obesity [E66.9] 03/29/2016 Vitamin D deficiency [E55.9] 08/24/2016 Medicare annual wellness visit, subsequent [Z00*03/12/2017 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 Multiple thyroid nodules [E04.2] 09/15/2017 Sensorineural hearing loss, asymmetrical [H90.3]10/08/2017 Lumbar stenosis [M48.061] Internal hemorrhoids [K64.8] Medication management [Z79.899] 09/22/2018 Raynaud's phenomenon without gangrene [I73.00] 06/07/2020 Carpal tunnel syndrome, left [G56.02] 08/17/2020 Valvular heart disease [I38] 10/20/2020 S/P lumbar fusion [Z98.1] 04/16/2021 05/28/2021 Advance directive discussed with patient [Z71.8*04/23/2021 Vertigo [R42] 12/03/2021 Living will on file at physician's office [Z78.*07/22/2022 Spinal stenosis of lumbar region [M48.061] 06/17/2023 Hyperuricemia [E79.0] 07/03/2023 Lumbar radiculopathy [M54.16] 07/25/2023 Spinal stenosis, lumbar region, without neuroge*07/25/2023 Lumbar spondylosis [M47.816] 07/25/2023 Anemia, chronic disease [D63.8] 11/09/2023 (more content not included)... [facility] SPENS[facility] ([id number]) 1940 F Date Time Provider Department 01/12/25 JUAN SPANN [facility] During your visit today, we recorded the following information about you: Melissa Pink RN 01/12/2025 1:27 PM Signed Pt calling in and states Dr. Spann placed urine test orders for her and she completed them yesterday. She understands it will take time for the urine culture results, however she is asking if Dr. Spann would look at her urine analysis results and consider ordering her medication now. Pt states she is having severe burning only when urinating and states I am going to need something soon. Pt denies fever, chills, severe abd or back/flank pain, blood in urine or any other severe sx's. Juan Spann MD 01/12/2025 1:53 PM Signed Let patient know UA does show a UTI. I sent in a script for Macrobid to take twice a day for 7 days. Will wait to see what the culture shows. The following approved medication requests have been transmitted electronically. Requested Prescriptions Signed Prescriptions Disp Refills nitrofurantoin monohydrate and macrocrystal (MACROBID) 100 mg capsule 14 capsule 0 Sig: Take 1 capsule by mouth two times a day with meals for 7 days. Authorizing Provider: JUAN SPANN MD Hambel, Sherill A, LPN 01/12/2025 2:43 PM Signed Pt notified of Dr Spann's message and instructions. Pt verbalizes understanding. Jonas Milan LPN Allergies As of Date: 01/12/2025 Noted Allergy Reaction SULFA (SULFONAMIDE ANTIBIOTICS) 04/11/2005 7 - Swelling 10 - Anaphylaxis Comments: Tongue/ throat swelled [place] 03/18/2013 11 - Vomiting Comments: Vomiting TRAMADOL 12/30/2024 1 - Mental Status Change HYDROCODONE-ACETAMIN OPHEN 12/30/2011 8 - GI Upset Comments: NAUSEA PROCARDIA (NIFEDIPINE) 06/26/2020 7 - Swelling Comments: legs Date Reviewed: 01/03/2025 Reviewed by: Roxy Torres MA - Fully Assessed Reason for Visit: Medication Request [138] Order(s):nitrofurant oin monohydrate and macrocrystal (MACROBID) 100 mg capsuleTake 1 capsule by mouth two times a day with meals for 7 days.Disp: 14 capsuleRfl: 0 Prescriptions as of 01/12/2025 - nitrofurantoin monohydrate and macrocrystal (MACROBID) 100 mg capsule Take 1 capsule by mouth two times a day with meals for 7 days. - lisinopril (ZESTRIL) 10 mg tablet Take 1 tablet by mouth once daily. - omeprazole (PRILOSEC) 20 mg capsule Take 1 capsule by mouth once daily. - spironolactone (ALDACTONE) 50 mg tablet Take 1 tablet by mouth once daily. - rOPINIRole (REQUIP) 4 mg tablet Take 1 tablet by mouth daily at bedtime. - pravastatin (PRAVACHOL) 20 mg tablet Take 1 tablet by mouth daily at bedtime. - Magnesium 250 mg tab Take 1 tablet by mouth once daily. - cholecalciferol, vitamin D3, (VITAMIN D3 ORAL) Take by mouth. - aspirin, enteric coated (ADULT LOW DOSE ASPIRIN) 81 mg EC tablet Take 1 tablet by mouth once daily. - calcium carbonate(CALTRATE 600 600 MG (1,500 MG) TAB) Problem List As Of Date 01/12/2025 Noted Resolved Osteopenia, senile [M85.80] 07/02/2005 Bilateral leg edema [R60.0] 07/02/2005 Family history of malignant neoplasm of gastroi*07/02/2005 03/27/2016 Insomnia, unspecified [G47.00] 07/02/2005 Actinic Keratoses: Premalignant AK's [L57.0] 03/27/2006 Other chronic dermatitis due to solar radiation*03/27/2006 SOLAR LENGINES////DYSCHROM IA OTHER [L81.9] 03/27/2006 03/22/2013 XEROSIS////SEBACEOUS GLAND DIS NEC [L73.8] 03/27/2006 03/22/2013 Other seborrheic keratosis [L82.1] 06/23/2006 Routine general medical examination at [facility]*08/24/2008 07/29/2011 Class: Chronic Routine gynecological examination [Z01.419] 08/24/2008 07/29/2011 Class: Chronic Restless leg syndrome [G25.81] Hand joint stiff [M25.649] 02/11/2012 Lumbar disc herniation [M51.26] 09/15/2012 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 [M43.16]09/15/2012 Hypokalemia [E87.6] 10/20/2012 Spondylolisthesis at L5-S1 level [M43.17] 10/20/2012 Solar lentigo [L81.4] 03/22/2013 Xerosis cutis [L85.3] 03/22/2013 Personal history of other malignant neoplasm of*03/22/2013 Other psoriasis [L40.8] 04/16/2013 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] 04/10/2013 Mixed hyperlipidemia [E78.2] 10/13/2014 Routine gynecological examination [Z01.419] 10/13/2014 03/27/2016 Colon cancer screening [Z12.11] 10/13/2014 03/27/2016 Well adult exam [Z00.00] 10/13/2014 03/27/2016 Essential hypertension with goal blood pressure*08/14/2015 Encounter for screening mammogram for breast ca*02/21/2016 03/27/2016 Non morbid obesity [E66.9] 03/29/2016 Vitamin D deficiency [E55.9] 08/24/2016 Medicare annual wellness visit, subsequent [Z00*03/12/2017 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 18 Multiple thyroid nodules [E04.2] 09/15/2017 Sensorineural hearing loss, asymmetrical [H90.3]10/08/ (more content not included)... Normal [facility] Bacteria Ur Culton 5 Bacteria identified Cx Nom (U) ORGANISM ID: 1 >=100,000 CFU/ml Mixed microbiota including 3 different colony types, and no one type predominating. No further workup. Normal [facility] Comment on above: Performed By: #### 6 30-4 ####[facility] [id number] [place] [address] [place] Urinalysis complete panel (U )on 01-11-2025 BACTERIA UL >9821 High Negative [facility] Comment on above: Order Comment: Speci men Type: URINE SPECIMEN Ordering Facility: [facility] Address: [address] [place] [address] Performed By: #### 2 4356-8 #### [facility] CLIA [id number] [address] [place] [address] [place] Bilirubin Ql (U) Negative Normal Negative [facility] Comment on above: Order Comment: Speci men Type: URINE SPECIMEN Ordering Facility: [facility] Address: [address] [place] [address] Performed By: #### 2 4356-8 #### [facility] CLIA [id number] [address] [place] [address] [place] Clarity (Unsp spec) Clear Normal Clear [facility] Comment on above: Order Comment: Speci men Type: URINE SPECIMEN Ordering Facility: [facility] Address: [address] [place] [address] Performed By: #### 2 4356-8 #### [facility] CLIA [id number] [address] [place] [address] [place] Color (U) Yellow Normal Yellow [facility] Comment on above: Order Comment: Speci men Type: URINE SPECIMEN Ordering Facility: [facility] Address: [address] [place] [address] Performed By: #### 2 4356-8 #### [facility] CLIA [id number] [address] [place] [address] [place] Epithelial cells LM.HPF (Urine sed) [#/Area] Few Normal [facility] Comment on above: Order Comment: Speci men Type: URINE SPECIMEN Ordering Facility: [facility] Address: [address] [place] [address] Performed By: #### 2 4356-8 #### [facility] CLIA [id number] [address] [place] [address] [place] Glucose Test strip (U) [Mass/Vol] Negative Normal Negative [facility] Comment on above: Order Comment: Speci men Type: URINE SPECIMEN Ordering Facility: [facility] Address: [address] [place] [address] Performed By: #### 2 4356-8 #### [facility] CLIA [id number] [address] [place] [address] [place] Hemoglobin Ql (U) 1+ Abnormal Negative [facility] Comment on above: Order Comment: Speci men Type: URINE SPECIMEN Ordering Facility: [facility] Address: [address] [place] [address] Performed By: #### 2 4356-8 #### [facility] CLIA [id number] [address] [place] [address] [place] Hyaline casts (Urine sed) [#/Area] 1-3 /LPF Abnormal 0 /LPF [facility] Comment on above: Order Comment: Speci men Type: URINE SPECIMEN Ordering Facility: [facility] Address: [address] [place] [address] Performed By: #### 2 4356-8 #### [facility] CLIA [id number] [address] [place] [address] [place] Ketones Ql (U) Negative Normal Negative [facility] Comment on above: Order Comment: Speci men Type: URINE SPECIMEN Ordering Facility: [facility] Address: [address] [place] [address] Performed By: #### 2 4356-8 #### [facility] CLIA [id number] [address] [place] [address] [place] Leukocyte esterase Test strip Ql (U) 3+ Abnormal Negative [facility] Comment on above: Order Comment: Speci men Type: URINE SPECIMEN Ordering Facility: [facility] Address: [address] [place] [address] Performed By: #### 2 4356-8 #### [facility] CLIA [id number] [address] [place] [address] [place] Nitrite Ql (U) Negative Normal Negative [facility] Comment on above: Order Comment: Speci men Type: URINE SPECIMEN Ordering Facility: [facility] Address: [address] [place] [address] Performed By: #### 2 4356-8 #### [facility] CLIA [id number] [address] [place] [address] [place] pH (U) 5.5 [pH] Normal 5.0-8.0 [facility] Comment on above: Order Comment: Speci men Type: URINE SPECIMEN Ordering Facility: [facility] Address: [address] [place] [address] Performed By: #### 2 4356-8 #### [facility] CLIA [id number] [address] [place] [address] [place] Protein (U) [Mass/Vol] Trace Abnormal Negative Cl [facility] Comment on above: Order Comment: Speci men Type: URINE SPECIMEN Ordering Facility: [facility] Address: [address] [place] [address] Performed By: #### 2 4356-8 #### [facility] CLIA [id number] [address] [place] [address] [place] RBC LM.HPF (Urine sed) [#/Area] 6-10 /HPF Abnormal 0-2 /HPF [facility] Comment on above: Order Comment: Speci men Type: URINE SPECIMEN Ordering Facility: [facility] Address: [address] [place] [address] Performed By: #### 2 4356-8 #### [facility] CLIA [id number] [address] [place] [address] [place] Specific gravity (U) [Rel density] 1.017 Normal 1.005-1.030 [facility] Comment on above: Order Comment: Speci men Type: URINE SPECIMEN Ordering Facility: [facility] Address: [address] [place] [address] Performed By: #### 2 4356-8 #### [facility] CLIA [id number] [address] [place] [address] Urobilinogen Ql (U) 0.2 EU/dL Normal 0.2-1.0 EU/dL [facility] Comment on above: Order Comment: Speci men Type: URINE SPECIMEN Ordering Facility: [facility] Address: [address] [place] [address] Performed By: #### 2 4356-8 #### [facility] CLIA [id number] [address] [place] [address] [place] WBC LM.HPF (Urine sed) [#/Area] /[HPF] Abnormal 0-5 /HPF [facility] Comment on above: Order Comment: Speci men Type: URINE SPECIMEN Ordering Facility: [facility] Address: [address] [place] [address] Performed By: #### 2 4356-8 #### [facility] CLIA [id number] [address] [place] [address] [place] Marleny 01-05-2025 [facility] Telephone (ALEXANDER) SPENSER PUTNAM ([id number]) 1940 F Date Time Provider Department 01/05/25 DEQUAN AYALA During your visit today, we recorded the following information about you: Lauren Randhawa LPN 01/05/2025 9:15 AM Signed Patient calling in requesting to be scheduled for shoulder surgery after Thanksgiving. DAISY Reyna Amy M, MA 01/05/2025 10:03 AM Signed Were you planning on doing surgery on this patients shoulder? Notes not completed and no consent. Roxy Torres MA 01/05/2025 2:53 PM Signed Dequan Ayala MD You; Angie Macias PA-C; John Ness MD8 minutes ago (2:44 PM) She needs a reverse shoulder replacement. She may have not understood that she needs to see Dr. Ness first. BP Roxy Torres MA 01/05/2025 2:56 PM Signed I called and spoke with the patient. Message from Dr. Ayala given. Patient was transferred to scheduling to get appointment with Dr. Ness's office. Lauren Randhawa LPN 01/11/2025 10:19 AM Addendum Patient calling in stating she has not heard from Dr. Bowling office and wanted to make sure you knew. It looks like you transferred patient to schedulers but patient didn't schedule. I will send this to our PSS to see if they can get her scheduled. DAISY Reyna Amy M, MA 01/12/2025 3:36 PM Signed Patient has been scheduled with Dr. Ness on 01/25/2025. Allergies As of Date: 01/05/2025 Noted Allergy Reaction SULFA (SULFONAMIDE ANTIBIOTICS) 04/11/2005 7 - Swelling 10 - Anaphylaxis Comments: Tongue/ throat swelled PHENERGAN PLAIN 03/18/2013 11 - Vomiting Comments: Vomiting TRAMADOL 12/30/2024 1 - Mental Status Change HYDROCODONE-ACETAMIN OPHEN 12/30/2011 8 - GI Upset Comments: NAUSEA PROCARDIA (NIFEDIPINE) 06/26/2020 7 - Swelling Comments: legs Date Reviewed: 01/03/2025 Reviewed by: Roxy Torres MA - Fully Assessed Reason for Visit: Patient Question [8987] Prescriptions as of 01/12/2025 - nitrofurantoin monohydrate and macrocrystal (MACROBID) 100 mg capsule Take 1 capsule by mouth two times a day with meals for 7 days. - lisinopril (ZESTRIL) 10 mg tablet Take 1 tablet by mouth once daily. - omeprazole (PRILOSEC) 20 mg capsule Take 1 capsule by mouth once daily. - spironolactone (ALDACTONE) 50 mg tablet Take 1 tablet by mouth once daily. - rOPINIRole (REQUIP) 4 mg tablet Take 1 tablet by mouth daily at bedtime. - pravastatin (PRAVACHOL) 20 mg tablet Take 1 tablet by mouth daily at bedtime. - Magnesium 250 mg tab Take 1 tablet by mouth once daily. - cholecalciferol, vitamin D3, (VITAMIN D3 ORAL) Take by mouth. - aspirin, enteric coated (ADULT LOW DOSE ASPIRIN) 81 mg EC tablet Take 1 tablet by mouth once daily. - calcium carbonate(CALTRATE 600 600 MG (1,500 MG) TAB) Problem List As Of Date 01/05/2025 Noted Resolved Osteopenia, senile [M85.80] 07/02/2005 Bilateral leg edema [R60.0] 07/02/2005 Family history of malignant neoplasm of gastroi*07/02/2005 03/27/2016 Insomnia, unspecified [G47.00] 07/02/2005 Actinic Keratoses: Premalignant AK's [L57.0] 03/27/2006 Other chronic dermatitis due to solar radiation*03/27/2006 SOLAR LENGINES////DYSCHROM IA OTHER [L81.9] 03/27/2006 03/22/2013 XEROSIS////SEBACEOUS GLAND DIS NEC [L73.8] 03/27/2006 03/22/2013 Other seborrheic keratosis [L82.1] 06/23/2006 Routine general medical examination at [facility]*08/24/2008 07/29/2011 Class: Chronic Routine gynecological examination [Z01.419] 08/24/2008 07/29/2011 Class: Chronic Restless leg syndrome [G25.81] Hand joint stiff [M25.649] 02/11/2012 Lumbar disc herniation [M51.26] 09/15/2012 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 [M43.16]09/15/2012 Hypokalemia [E87.6] 10/20/2012 Spondylolisthesis at L5-S1 level [M43.17] 10/20/2012 Solar lentigo [L81.4] 03/22/2013 Xerosis cutis [L85.3] 03/22/2013 Personal history of other malignant neoplasm of*03/22/2013 Other psoriasis [L40.8] 04/16/2013 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] 04/10/2013 Mixed hyperlipidemia [E78.2] 10/13/2014 Routine gynecological examination [Z01.419] 10/13/2014 03/27/2016 Colon cancer screening [Z12.11] 10/13/2014 03/27/2016 Well adult exam [Z00.00] 10/13/2014 03/27/2016 Essential hypertension with goal blood pressure*08/14/2015 Encounter for screening mammogram for breast ca*02/21/2016 03/27/2016 Non morbid obesity [E66.9] 03/29/2016 Vitamin D deficiency [E55.9] 08/24/2016 Medicare annual wellness visit, subsequent [Z00*03/12/2017 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 18 Multiple thyroid nodules [E04.2] 09/15/2017 Sensorineural hearing loss, asymmetrical [H90.3]10/08/2017 Lumbar stenosis [M48.061] Internal hemorrhoids [K64.8] Medication management [Z79.899] 09/22/2018 Raynaud's phenomenon without gangrene [I73.00] 06/07/2020 Carpal tunnel syndrome, left [G56.02] 08/17/2020 Valvular hea (more content not included)... Normal [facility] CNOVon 12-29-2024 CNOV Office Visit (FAMPWS) SPENSER PUTNAM ([id number]) 1940 F Date Time Provider Department 12/29/24 11:40 AM DESTINI LAY During your visit today, we recorded the following information about you: Temperature Pulse Blood pressure Weight 97.4 degrees 78/minute 149/80 58.5 kg Destini Lay PA-C 12/30/2024 7:43 AM Signed Chief Complaint Patient presents with: Hospital F/U HPI Spenser Putnam is a 84 year old female who presents here today for Hospital Discharge Follow up.. Spenser is an 84-year-old female presenting for follow-up after a recent syncopal episode, with additional complaints of left shoulder pain and right hip pain. Syncope: - Recent syncopal episode on 12/21/2024. - Hospitalized following the episode. Discharged 12/22. (See hospital summary note below) - Echo performed during hospitalization; no significant findings - Scheduled to see a international travel consultant next week for a loop recorder. - No recurrent syncopal episodes since hospitalization. - Occasional lightheadedness with rapid movements. - Previously on two antihypertensive medications; discontinued per hospital instructions given low blood pressure readings in the Hospital. 90-100s/40-50s. - Home blood pressure readings slightly elevated per daughter since stopping medication. Left Shoulder Pain: - Severe left shoulder pain, described as horrible - Pain began less than a year ago, initially noticed as a bone against bone sensation. - Believes pain is exacerbated by increased use with her walker due to right hip pain. - Pain is diffuse, affecting the entire shoulder. - Pain is worse in the evening, causing significant distress. - Unable to use the left arm effectively. - Previously prescribed Prednisone by Dr. Spann with no relief. - Tried Oxycodone, which caused nausea. - Currently taking Tylenol, which also causes stomach upset. - No previous X-rays of the shoulder. Right Hip Pain: - Severe right hip pain, described as really bad. - Pain has led to increased use of the left shoulder, which she believes has worsened the shoulder pain. - Hip has been X-rayed. - Scheduled to see Dr. Ayala next week for hip evaluation. Past medical history, appointments, medications, allergies reviewed. 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 Macias, Rt anterior shoulder, Gilberto III, pT1a, pNX, pM N/A Mixed hyperlipidemia 10/13/2014 Multiple thyroid nodules 09/15/2017 CT neck09/2017 7 mm nodule, US .2018 multiple small nodules repeat 09/2019 Non morbid obesity 03/29/2016 Osteopenia, senile 07/02/2005 SEE DEXA 07/15 Other chronic dermatitis due to solar radiation 03/27/2006 Other psoriasis 04/16/2013 Other seborrheic keratosis 06/23/2006 Personal history of other malignant neoplasm of skin 03/22/2013 Raynaud's phenomenon without gangrene 06/07/2020 suspected Restless leg syndrome Sensorineural hearing loss, asymmetrical 10/08/2017 Solar lentigo 03/22/2013 Spinal stenosis of lumbar region 06/17/2023 Spinal stenosis, lumbar region, without neurogenic claudication 07/25/2023 Spondylolisthesis at L5-S1 level 10/20/2012 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 09/15/2012 Vertigo 12/03/2021 MRI normal and patient declined further eval as of 12/03/21 Vitamin B12 deficiency 11/09/2023 Vitamin D deficiency 08/24/2016 Xerosis cutis 03/22/2013 Previous Surgical History PAST SURGICAL HISTORY Procedure Laterality Date ABDOMINAL SURGERY HX BACK SURGERY HX 01/23/2021 lateral lumbar interbody fusion L3-4 CHOLECYSTECTOMY age 52 +/- laparoscopic cholecystectomy COLONOSCOPY 04/29/2013 Dr. 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 [facility] JERSEYSPENSER ([id number]) 1940 F Date Time Provider Department 12/29/24 DESTINI LAY During your visit today, we recorded the following information about you: Jonas Milan LPN 12/29/2024 2:18 PM Signed Let patient know hat X-ray shows severe arthritis. Continue as we discussed. Thanks Jonas Tavares LPN 12/29/2024 2:18 PM Signed Patient notified of results and provider's instructions. Patient verbalizes understanding. Jonas Milan LPN Allergies As of Date: 12/29/2024 Noted Allergy Reaction SULFA (SULFONAMIDE ANTIBIOTICS) 04/11/2005 7 - Swelling 10 - Anaphylaxis Comments: Tongue/ throat swelled PHENERGAN PLAIN 03/18/2013 11 - Vomiting Comments: Vomiting HYDROCODONE-ACETAMIN OPHEN 12/30/2011 8 - GI Upset Comments: NAUSEA PROCARDIA (NIFEDIPINE) 06/26/2020 7 - Swelling Comments: legs Date Reviewed: 12/29/2024 Reviewed by: Jonas Milan LPN - Fully Assessed Prescriptions as of 12/29/2024 - traMADol (ULTRAM) 50 mg tablet Take 1 tablet by mouth every 4 hours as needed for pain for up to 5 days. - lisinopril (ZESTRIL) 10 mg tablet Take 1 tablet by mouth once daily. - predniSONE (DELTASONE) 20 mg tablet Take 3 tabs by mouth for 3 days, then 2 tabs by mouth for 3 days, then 1 tab by mouth for 3 days and then 1/2 a tab by mouth for 4 days. - omeprazole (PRILOSEC) 20 mg capsule Take 1 capsule by mouth once daily. - spironolactone (ALDACTONE) 50 mg tablet Take 1 tablet by mouth once daily. - rOPINIRole (REQUIP) 4 mg tablet Take 1 tablet by mouth daily at bedtime. - pravastatin (PRAVACHOL) 20 mg tablet Take 1 tablet by mouth daily at bedtime. - Magnesium 250 mg tab Take 1 tablet by mouth once daily. - cholecalciferol, vitamin D3, (VITAMIN D3 ORAL) Take by mouth. - aspirin, enteric coated (ADULT LOW DOSE ASPIRIN) 81 mg EC tablet Take 1 tablet by mouth once daily. - calcium carbonate(CALTRATE 600 600 MG (1,500 MG) TAB) Problem List As Of Date 12/29/2024 Noted Resolved Osteopenia, senile [M85.80] 07/02/2005 Bilateral leg edema [R60.0] 07/02/2005 Family history of malignant neoplasm of gastroi*07/02/2005 03/27/2016 Insomnia, unspecified [G47.00] 07/02/2005 Actinic Keratoses: Premalignant AK's [L57.0] 03/27/2006 Other chronic dermatitis due to solar radiation*03/27/2006 SOLAR LENGINES////DYSCHROM IA OTHER [L81.9] 03/27/2006 03/22/2013 XEROSIS////SEBACEOUS GLAND DIS NEC [L73.8] 03/27/2006 03/22/2013 Other seborrheic keratosis [L82.1] 06/23/2006 Routine general medical examination at [facility]*08/24/2008 07/29/2011 Class: Chronic Routine gynecological examination [Z01.419] 08/24/2008 07/29/2011 Class: Chronic Restless leg syndrome [G25.81] Hand joint stiff [M25.649] 02/11/2012 Lumbar disc herniation [M51.26] 09/15/2012 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 [M43.16]09/15/2012 Hypokalemia [E87.6] 10/20/2012 Spondylolisthesis at L5-S1 level [M43.17] 10/20/2012 Solar lentigo [L81.4] 03/22/2013 Xerosis cutis [L85.3] 03/22/2013 Personal history of other malignant neoplasm of*03/22/2013 Other psoriasis [L40.8] 04/16/2013 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] 04/10/2013 Mixed hyperlipidemia [E78.2] 10/13/2014 Routine gynecological examination [Z01.419] 10/13/2014 03/27/2016 Colon cancer screening [Z12.11] 10/13/2014 03/27/2016 Well adult exam [Z00.00] 10/13/2014 03/27/2016 Essential hypertension with goal blood pressure*08/14/2015 Encounter for screening mammogram for breast ca*02/21/2016 03/27/2016 Non morbid obesity [E66.9] 03/29/2016 Vitamin D deficiency [E55.9] 08/24/2016 Medicare annual wellness visit, subsequent [Z00*03/12/2017 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 Multiple thyroid nodules [E04.2] 09/15/2017 Sensorineural hearing loss, asymmetrical [H90.3]10/08/2017 Lumbar stenosis [M48.061] Internal hemorrhoids [K64.8] Medication management [Z79.899] 09/22/2018 Raynaud's phenomenon without gangrene [I73.00] 06/07/2020 Carpal tunnel syndrome, left [G56.02] 08/17/2020 Valvular heart disease [I38] 10/20/2020 S/P lumbar fusion [Z98.1] 04/16/2021 05/28/2021 Advance directive discussed with patient [Z71.8*04/23/2021 Vertigo [R42] 12/03/2021 Living will on file at physician's office [Z78.*07/22/2022 Spinal stenosis of lumbar region [M48.061] 06/17/2023 Hyperuricemia [E79.0] 07/03/2023 Lumbar radiculopathy [M54.16] 07/25/2023 Spinal stenosis, lumbar region, without neuroge*07/25/2023 Lumbar spondylosis [M47.816] 07/25/2023 Anemia, chronic disease [D63.8] 11/09/2023 Vitamin B12 deficiency [E53.8] 11/09/2023 Hyponatremia [E87.1] 12/01/2023 Hypomagnesemia [E83.42] 12/18/2023 Bilateral carotid artery stenosis [I65.23] 10/11/2024 Encounter Status:Closed by JONAS MILAN on 12/29/24 Normal [facility] XR SHLDR >/=3V AP/HORTENSIA AP/OTH R LTon 12-29-2024 XR SHLDR >/=3V AP/HORTENSIA AP/OTHR LT * * *Final Report* * * DATE OF EXAM: Dec 29 2024 12:43PM WOX [id number] - XR SHLDR >/=3V AP/HORTENSIA AP/OTHR LT / PROCEDURE REASON: Acute pain of left shoulder * * * * Physician Interpretation * * * * TITLE: XR SHLDR >/=3V AP/HORTENSIA AP/OTHR LT CLINICAL INDICATION: Shoulder pain TECHNIQUE: 3 view radiographic study of the left shoulder COMPARISON: None FINDINGS: No acute fracture or dislocation identified. Severe glenohumeral osteoarthritis with severe joint space narrowing, subchondral sclerosis, subchondral cystic change and large inferior marginal osteophyte formation. Chondrocalcinosis. Amorphous calcification adjacent to the greater tuberosity which may be seen with calcific tendinitis. Mild hypertrophic change about the acromioclavicular joint. Spinal stimulator leads partially seen projecting over the mid thoracic spine. IMPRESSION: Severe glenohumeral osteoarthritis. Chondrocalcinosis. Findings which may be seen with calcific tendinitis. Ring Facer: DARRYL Transcribe Date/Time: Dec 29 2024 12:45P Dictated by : ASAF HUGHES MD This examination was interpreted and the report reviewed and electronically signed by: ASAF HUGHES MD on Dec 29 2024 12:50PM EST [id number] CN Normal [facility] Absolute lymphocyte countOrd ered By: Rachael Crook on 12-22-2024 Lymphocytes Auto (Unsp spec) [#/Vol] 2.04 10*3/uL 0.83-4.51 [facility] Absolute neutrophil countOrd ered By: Rachael Crook on 12-22-2024 Neutrophils (Bld) [#/Vol] 4.1 10*3/uL 2.0-7.7 [facility] Anion gap in Serum or Plasma Ordered By: Rachael Crook on 12-22-2024 Anion gap [Moles/Vol] 6 mmol/L 07-22 [facility] Automated lymphocyte count a s percentage of total leukocytesOrdered By: Rachael Crook on 12-22-2024 Lymphocytes/100 WBC Auto (Unsp spec) 30.5 % [facility] BUN/creatinine ratioOrdered By: Rachael Crook on 12-22-2024 Urea nitrogen/Creatinine [Mass ratio] 20.4 mg/mg High 12-27 [facility] Basic Metabolic Profile (BMP )on 12-22-2024 BUN/CRE 20.4 RATIO High 12-27 [facility] Comment on above: Performed By: #### L 500.3400 #### [facility] [address] [place], [address] ECRCL 45.73 ml/min Low 50-250 [facility] Comment on above: Performed By: #### L 500.3400 #### [facility] [address] [place], [address] GAP 6 Normal 07-22 [facility] Comment on above: Performed By: #### L 500.3400 #### [facility] [address] [place], [address] Potassium [Moles/Vol] 4.2 mmol/L Normal 3.3-5.1 [facility] Comment on above: Performed By: #### L 500.3400 #### [facility] [address] [place], [address] Basophil percentageOrdered B y: Rachael Crook on 12-22-2024 Basophils/100 WBC (Bld) 0.1 % 0-1 [facility] CBC W/Diff, Automatedon 12-08 Absolute Lymph 2.04 X10 3/uL Normal 0.83-4.51 [facility] Comment on above: Performed By: #### L 500.3400 #### [facility] [address] [place], [address] Absolute Neut 4.1 X10 3/uL Normal 2.0-7.7 [facility] Comment on above: Performed By: #### L 500.3400 #### [facility] [address] [place], [address] Basophils/100 WBC (Bld) 0.1 % Normal 0-1 [facility] Comment on above: Performed By: #### L 500.3400 #### [facility] [address] [place], [address] Eosinophils/100 WBC (Bld) 0.6 % Normal 0-5 [facility] Comment on above: Performed By: #### L 500.3400 #### [facility] [address] [place], [address] Erythrocyte distribution width (RBC) [Ratio] 14.6 % Normal 11.6-14.6 [facility] Comment on above: Performed By: #### L 500.3400 #### [facility] [address] [place], [address] Hematocrit (Bld) [Volume fraction] 29.4 % Low 37-47 [facility] Comment on above: Performed By: #### L 500.3400 #### [facility] [address] [place], [address] Hemoglobin (Bld) [Mass/Vol] 9.4 g/dL Low 12.0-15.0 [facility] Comment on above: Performed By: #### L 500.3400 #### [facility] [address] [place], [address] IG% 0.300 Normal 0.0-0.9 [facility] Comment on above: Result Comment: IG% - Immature Granulocytes (promyelocytes, myelocytes and metamyelocytes) > 1% indicates that a LEFT SHIFT is Present. Performed By: #### L 500.3400 #### [facility] [address] [place], [address] Lymphocytes/100 WBC (Bld) 30.5 % Normal 19-41 [facility] Comment on above: Performed By: #### L 500.3400 #### [facility] [address] [place], [address] MCH (RBC) [Entitic mass] 29.2 pg Normal 27.0-32.0 [facility] Comment on above: Performed By: #### L 500.3400 #### [facility] [address] [place], [address] MCHC (RBC) [Mass/Vol] 32.0 g/dL Normal 32-36 [facility] Comment on above: Performed By: #### L 500.3400 #### [facility] [address] [place], [address] MCV (RBC) [Entitic vol] 91.3 fL Normal 81-99 [facility] Comment on above: Performed By: #### L 500.3400 #### [facility] [address] [place], [address] Monocytes/100 WBC (Bld) 7.2 % Normal 0-10 [facility] Comment on above: Performed By: #### L 500.3400 #### [facility] [address] [place], [address] Neutrophils/100 WBC (Bld) 61.3 % Normal 47-70 [facility] Comment on above: Performed By: #### L 500.3400 #### [facility] [address] [place], [address] Nucleated RBC (Bld) [#/Vol] 0 10*3/uL Normal 0-5 [facility] Comment on above: Performed By: #### L 500.3400 #### [facility] [address] [place], [address] Platelet mean volume (Bld) [Entitic vol] 9.4 fL Normal 6.2-12.0 [facility] Comment on above: Performed By: #### L 500.3400 #### [facility] [address] [place], [address] Platelets (Bld) [#/Vol] 189 10*3/uL Normal 150-450 [facility] Comment on above: Performed By: #### L 500.3400 #### [facility] [address] [place], [address] RBC (Bld) [#/Vol] 3.22 10*6/uL Low 4.2-5.4 [facility] Comment on above: Performed By: #### L 500.3400 #### [facility] [address] [place], [address] RDW SD 48.9 fl High 35.1-43.9 [facility] Comment on above: Performed By: #### L 500.3400 #### [facility] [address] [place], [address] WBC (Bld) [#/Vol] 6.7 10*3/uL Normal 4.4-11.0 [facility] Comment on above: Performed By: #### L 500.3400 #### [facility] [address] [place], [address] Carbon dioxide, total [Moles /volume] in Central venous bloodOrdered By: Rachael Crook on 12-22-2024 CO2 [Moles/Vol] 24.9 mmol/L Normal 21.0-32.0 [facility] Comment on above: Performed By: #### L 500.3400 #### [facility] [address] [place], [address] Chloride assayOrdered By: Mounika Crook on 12-22-2024 Chloride [Moles/Vol] 104 mmol/L Normal 98-108 [facility] Comment on above: Performed By: #### L 500.3400 #### [facility] [address] [facility] [place], [address] Discharge Instructionon 12-08 Discharge Instruction [facility] Medical Records Department [address] [place] [address] Instructions for Home/Discharge Instructions 12/22/24 1448 MR#: [id number] Acct: [id number] Name: SPENSER PUTNAM Rep #: [id number] : 1940 84 From: Chelsea Carbone DO PCP: Dr. Juan Spann MD Status:ADM JANNETTE Discharge Instructions DC O2, CPAP, BIPAP needs Home O2 Discharge instructions: No Dressing / Incision Discharge Activity: Return to Normal Activity Weight Bearing Status: Full weight bearing Follow Up Care Test Results: Test results from this visit will be discussed in further detail at your follow-up appointment, if applicable. Discharge Plan Admission Admit Date/Time: 12/21/24 21:33 Primary Reason for Your Visit: Syncope Attending Provider: Chelsea Carbone Primary Care Provider: Juan Spann Consulting Providers: Rachael Crook Discharge Orders/Prescriptions Prescriptions: New oxycodone 5 mg Tablet 5 - 10 mg PO Q6H PRN PRN (Reason: Pain Score 1-10) 7 Days Qty: 35 0RF Rx Instructions: 1-2 q6h prn pain Continued aspirin 81 MG tablet,chewable 81 mg PO DAILY@0800 calcium carbonate-vitamin D3 1 EACH tablet 600 mg PO DINNER pravastatin 20 MG tablet 20 mg PO QHS spironolactone 50 mg tablet 50 mg PO DAILY ropinirole 4 mg tablet 4 mg PO QHS cholecalciferol (vitamin D3) 25 mcg (1,000 unit) capsule 25 mcg PO DAILY magnesium 200 mg tablet 400 mg PO DAILY Discontinued lisinopril 20 mg Tablet 20 mg PO DAILY potassium chloride 20 mEq tablet extended release 20 meq PO DAILY Referrals / Follow Up: Blanka Uriarte MD [Med Staff - Active Staff, Cardiology] - 01/04/25 10:30 am Juan Spann MD [Primary Care Provider, Family Practice] - In 1 Week Disposition Disposition (needs filled in before D/C Order can be placed): Home, Self Care 12/22/24 1503 Chelsea Carbone DO CC: Dr. Juan Spann MD; Dr. Rachael Crook MD Signed Normal [facility] Echo Completeon 12-22-2024 Echo Complete [facility] [address] [place] [address] Echo Complete 12/22/24 0857 MR#: [id number] Acct: [id number] Name: SPENSER PUTNAM Rep #: [id number] : 1940 84 From: Familia Ng MD Attending Dr: Dr. Chelsea Carbone DO Status: A DM JANNETTE Ordering Dr: Rachael Crook MD Date: 12/22/24 Location: PCU Sex: F C Admitted: 12/21/24 Reason For Study Reason For Study: SYNCOPE Procedure This was a 2D Doppler, Color Flow transthoracic echocardiogram. The patient was scanned supine. Exam performed portable in patient room. Left Ventricle Normal LV size. Left ventricular systolic function is normal. The left ventricular ejection fraction is 65 %. Stage 1 diastolic dysfunction. No regional wall motion abnormalities noted. Right Ventricle Normal RV size. Normal systolic function. Atria Normal left atrium. Normal right atrium. Mitral Valve There is mild mitral annular calcification. Mild (1+) eccentric mitral valve insufficiency. Tricuspid Valve Normal tricuspid valve. Mild (1+) tricuspid valve insufficiency. Pulmonary artery systolic pressure is 34 mmHg. Aortic Valve Mild focal aortic valve calcification. Mild aortic stenosis. Pulmonic Valve Normal pulmonic valve. Great Vessels Mildly calcified aortic root. The pulmonary artery is normal size. Inferior vena cava collapse with respiration. Pericardium/Pleural No pericardial effusion. MMode/2D Measurements Calculations LVIDd: 4.5 cm IVSd: 0.76 cm LVOT diam: 2.0 cm LVIDs: 2.5 cm LVPWd: 0.88 cm LVOT area: 3.1 cm2 RVDd: 3.5 cm FS: 45.1 % asc Aorta Diam: 3.4 cm LAV(MOD-bp): 31.2 ml LVAd ap4: 18.3 cm2 LAV(MOD-bp) Indexed: 19.1 ml/m2 LVLd ap4: 6.6 cm LAV(MOD-sp2): 39.3 ml EDV(MOD-sp4): 41.7 ml LAV(MOD-sp4): 24.9 ml EDV(sp4-el): 42.9 ml LVAs ap4: 8.3 cm2 LVLs ap4: 5.0 cm ESV(MOD-sp4): 11.9 ml ESV(sp4-el): 11.5 ml EF(MOD-sp4): 71.5 % EF(sp4-el): 73.3 % LVAd ap2: 15.2 cm2 SV(MOD-sp4): 29.8 ml SV(MOD-sp2): 21.7 ml LVLd ap2: 6.0 cm SI(MOD-sp4): 18.2 ml/m2 SI(MOD-sp2): 13.3 ml/m2 EDV(MOD-sp2): 33.1 ml EDV(sp2-el): 32.4 ml LVAs ap2: 8.1 cm2 LVLs ap2: 5.2 cm ESV(MOD-sp2): 11.4 ml ESV(sp2-el): 10.9 ml EF(MOD-sp2): 65.7 % SV(sp4-el): 31.5 ml Ao sinus diam: 3.[address] Junction: 2.6 cm LA dimension(2D): 3.3 cm LA A4 area: 12.9 cm2 RA A4 area: 11.6 cm2 TAPSE: 2.3 cm Time Measurements MV dec time: 0.30 sec Doppler Measurements Calculations MV E max quita: 97.4 cm/sec Lat Peak E' Quita: 7.8 cm/sec Med Peak E' Quita: 8.6 cm/sec MV A max quita: 122.9 cm/sec E/E' lat: 12.5 E/E' med: 11.4 MV E/A: 0.79 MV dec slope: 330.2 cm/sec2 Ao V2 max: 243.8 cm/sec LV V1 max: 129.9 cm/sec Ao max P.8 mmHg LV V1 max P.7 mmHg Ao V2 mean: 181.4 cm/sec LV V1 mean P.1 mmHg Ao mean P.2 mmHg LV V1 mean: 95.0 cm/sec Ao V2 VTI: 56.1 cm LV V1 VTI: 33.6 cm AV (velocity ratio): 0.60 LEANDRO(I,D): 1.8 cm2 LEANDRO(V,D): 1.6 cm2 SV(LVOT): 103.8 ml PA V2 max: 101.4 cm/sec TR max quita: 278.0 cm/sec TR max P.0 mmHg ECHO/Echo Complete Interpretation Summary Normal LV size. Left ventricular systolic function is normal. The left ventricular ejection fraction is 65 %. Mildly calcified aortic root. There is mild mitral annular calcification. Stage 1 diastolic dysfunction. Ordering Physician: Rachael Crook Performed By: Latasha Marie RDCS 12/22/24 1123 Date Familia Ng MD CC: Dr. Juan Spann MD; Dr. Chelsea Carbone DO; Dr. Rachael Crook MD Date Dictated: 12/22/24856 Date Transcribed: 12/22/241122 Ring Facer: Signed Normal [facility] Echocardiogram study reportO rdered By: Familia Ng on 12-22-2024 Study report [facility] Cardiovascular Services [address] [place] [address] Echo Complete 12/22/24856 MR#: [id number] Acct: [id number] Name: SPENSER PUTNAM Rep #:[id number] : 1940 84 From: Familia Natarajan Attending Dr: Dr. Chelsea Carbone DO Status: ADM JANNETTE Ordering Dr: Rachael Crook MD Date: 12/22/24 Location: [facility] Sex: F C Admitted: 12/21/24 Reason For Study Reason For Study: SYNCOPE Procedure This was a 2D Doppler, Color Flow transthoracic echocardiogram. The patient was scanned supine. Exam performed portable in patient room. Left Ventricle Normal LV size. Left ventricular systolic function is normal. The left ventricular ejection fraction is 65 %. Stage 1 diastolic dysfunction. No regional wall motion abnormalities noted. Right Ventricle Normal RV size. Normal systolic function. Atria Normal left atrium. Normal right atrium. Mitral Valve There is mild mitral annular calcification. Mild (1+) eccentric mitral valve insufficiency. Tricuspid Valve Normal tricuspid valve. Mild (1+) tricuspid valve insufficiency. Pulmonary artery systolic pressure is 34 mmHg. Aortic Valve Mild focal aortic valve calcification. Mild aortic stenosis. Pulmonic Valve Normal pulmonic valve. Great Vessels Mildly calcified aortic root. The pulmonary artery is normal size. Inferior venacava collapse with respiration. Pericardium/Pleural No pericardial effusion. MMode/2D Measurements & Calculations LVIDd: 4.5 cm IVSd: 0.76 cm LVOT diam: 2.0 cm LVIDs: 2.5 cm LVPWd: 0.88 cm LVOT area: 3.1 cm2 RVDd: 3.5 cm FS: 45.1 % asc Aorta Diam: 3.4 cm LAV(MOD-bp): 31.2 ml LVAd ap4: 18.3 cm2 LAV(MOD-bp) Indexed: 19.1 ml/m2 LVLd ap4: 6.6 cm LAV(MOD-sp2): 39.3 ml EDV(MOD-sp4): 41.7 ml LAV(MOD-sp4): 24.9 ml EDV(sp4-el): 42.9 ml LVAs ap4: 8.3 cm2 LVLs ap4: 5.0 cm ESV(MOD-sp4): 11.9 ml ESV(sp4-el): 11.5 ml EF(MOD-sp4): 71.5 % EF(sp4-el): 73.3 % LVAd ap2: 15.2 cm2 SV(MOD-sp4): 29.8 ml SV(MOD-sp2): 21.7 ml LVLd ap2: 6.0 cm SI(MOD-sp4): 18.2 ml/m2 SI(MOD-sp2): 13.3 ml/m2 EDV(MOD-sp2): 33.1 ml EDV(sp2-el): 32.4 ml LVAs ap2: 8.1 cm2 LVLs ap2: 5.2 cm ESV(MOD-sp2): 11.4 ml ESV(sp2-el): 10.9 ml EF(MOD-sp2): 65.7 % SV(sp4-el): 31.5 ml Ao sinus diam: 3.[address] Junction: 2.6 cm LA dimension(2D): 3.3 cm LA A4 area: 12.9 cm2 RA A4 area: 11.6 cm2 TAPSE: 2.3 cm Time Measurements MV dec time: 0.30 sec Doppler Measurements & Calculations MV E max quita: 97.4 cm/sec Lat Peak E' Quita: 7.8 cm/sec Med Peak E' Quita: 8.6 cm/sec MV A max quita: 122.9 cm/sec E/E' lat: 12.5 E/E' med: 11.4 MV E/A: 0.79 MV dec slope: 330.2 cm/sec2 Ao V2 max: 243.8 cm/sec LV V1 max: 129.9 cm/sec Ao max P.8 mmHg LV V1 max P.7 mmHg Ao V2 mean: 181.4 cm/sec LV V1 mean P.1 mmHg Ao mean P.2 mmHg LV V1 mean: 95.0 cm/sec Ao V2 VTI: 56.1 cm LV V1 VTI: 33.6 cm AV (velocity ratio): 0.60 LEANDRO(I,D): 1.8 cm2 LEANDRO(V,D): 1.6 cm2 SV(LVOT): 103.8 ml PA V2 max: 101.4 cm/sec TR max quita: 278.0 cm/sec TR max P.0 mmHg ECHO/Echo Complete Interpretation Summary Normal LV size. Left ventricular systolic function is normal. The left ventricular ejection fraction is 65 %. Mildly calcified aortic root. There is mild mitral annular calcification. Stage 1 diastolic dysfunction. Ordering Physician: Rachael Crook Performed By: Latasha Marie RDCS 12/22/24 1123 Date _ Familia Ng MD CC: Dr. Juan Spann MD; Dr. Chelsea Carbone DO; Dr. Rachael Crook MD ~ Date Dictated: 12/22/24856 Date Transcribed: 12/22/241122 Ring Facer: Signed [facility] Work Phone: Electrocardiogram reportOrde red By: Familia Ng on 12-22-2024 EKG study [facility] Cardiovascular Services [address] [place] [address] 12 Lead EKG 12/21/241957 MR#: [id number] Acct: [id number] Name: SPENSER PUTNAM Rep #:[id number] : 1940 84 From: Familia Ng MD Attending Dr: Dr. Chelsea Carbone DO Status: ADM JANNETTE Ordering Dr: Mabel Downing MD Date: Location: [facility] Sex: F C Admitted: 12/21/24 Test Reason : DYSRHYTHMIA Blood Pressure : */* mmHG Vent. Rate : 57 BPM Atrial Rate : 57 BPM P-R Int : 166 ms QRS Dur : 84 ms QT Int : 448 ms P-R-T Axes : 60 20 46 degrees QTcB Int : 436 ms Sinus bradycardia Otherwise normal ECG Confirmed by FAMILIA NG MD ([id number]), book or script editor ALISSON COLUNGA ([id number]) on 0:55:39 AM Referred By: JW Confirmed By: FAMILIA NG MD 12/22/24 1055 Date _ Familia Ng MD CC: Dr. Mabel Downing MD; Dr. Juan Spann MD; Dr. Chelsea Carbone, DO ~ Signed [facility] Work Phone: Eosinophil percentageOrdered By: Rachael Crook on 12-22-2024 Eosinophils/100 WBC (Bld) 0.6 % 0-5 [facility] Erythrocyte distribution wid th ratioOrdered By: Rachael [facility] on 12-22-2024 Erythrocyte distribution width (RBC) [Ratio] 14.6 % 11.6-14.6 [facility] Erythrocyte distribution wid th standard deviationOrdered By: Rachaelalex Crook on 12-22-2024 Erythrocyte distribution width (RBC) [Ratio] 48.9 fl High 35.1-43.9 [facility] Glomerular filtration rate ( GFR) estimation/1.73 sq m using serum, plasma, or whole bOrdered By: Rachael Crook on 12-22-2024 GFR/1.73 sq M.predicted among non-blacks MDRD (S/P/Bld) [Vol rate/Area] 86 mL/min/{1.73_m2} Normal >60 [facility] Comment on above: mL/min/1.73m2 CKD-EP I Creatinine Equation (2020) Result Comment: mL/m in/1.73m2 CKD-EPI Creatinine Equation (2020) Performed By: #### L 500.9685 #### [facility] Laboratory [address] [place] [address], [address] Hematocrit Auto (Bld) [Volum e fraction]Ordered By: Rachael Crook on 12-22-2024 Hematocrit (Bld) [Volume fraction] 29.4 % Low 37-47 [facility] Hemoglobin measurementOrdere d By: Rachael Crook on 12-22-2024 Hemoglobin (Bld) [Mass/Vol] 9.4 g/dL Low 12.0-15.0 [facility] Immature granulocytes/100 WB C Auto (Bld)Ordered By: Rachael Crook on 12-22-2024 Immature granulocytes/100 WBC (Bld) 0.300 % 0.0-0.9 [facility] Comment on above: IG% - Immature Granu locytes (promyelocytes, myelocytes and metamyelocytes) > 1% indicates that a LEFT SHIFT is Present. MCV (mean corpuscular volume ) determinationOrdered By: Rachael Crook on 12-22-2024 MCV (RBC) [Entitic vol] 91.3 fL 81-99 [facility] Mean corpuscular hemoglobin (MCH) determinationOrdered By: Rachael Crook on 12-22-2024 MCH (RBC) [Entitic mass] 29.2 pg 27.0-32.0 [facility] Mean corpuscular hemoglobin concentration (MCHC) determinationOrdered By: Rachael Crook on 12-22-2024 MCHC (RBC) [Mass/Vol] 32.0 g/dL 32-36 [facility] Mean platelet volume determi nationOrdered By: Rachael Crook on 12-22-2024 Platelet mean volume (Bld) [Entitic vol] 9.4 fL 6.2-12.0 [facility] Monocyte percentageOrdered B y: Rachael Crook on 12-22-2024 Monocytes/100 WBC (Bld) 7.2 % 0-10 [facility] Neutrophil percentageOrdered By: Rachael Crook on 12-22-2024 Neutrophils/100 WBC (Bld) 61.3 % 47-70 [facility] Nucleated red blood cell per centageOrdered By: Rachael Crook on 12-22-2024 Nucleated RBC/100 WBC (Bld) [Ratio] 0 % 0-5 [facility] Platelet countOrdered By: Na mounika Crook on 12-22-2024 Platelets (Bld) [#/Vol] 189 10*3/uL 150-450 [facility] Potassium measurement (mass/ volume)Ordered By: Rachael Crook on 12-22-2024 Potassium (Unsp spec) [Mass/Vol] 4.2 mmol/L 3.3-5.1 [facility] RBC Auto (Bld) [#/Vol]Ordere d By: Rachael Crook on 12-22-2024 RBC (Bld) [#/Vol] 3.22 10*6/uL Low 4.2-5.4 [facility] Serum creatinine measurement (mass/volume)Ordered By: Rachael Crook on 12-22-2024 Creatinine [Mass/Vol] 0.67 mg/dL Low 0.70-1.20 [facility] Comment on above: Performed By: #### L 500.3400 #### [facility] [address] [place], [place], [id number] ([phone]) Serum glucose measurement (m ass/volume)Ordered By: Rachael Crook on 12-22-2024 Glucose [Mass/Vol] 92 mg/dL Normal 70-99 [facility] Comment on above: Performed By: #### L 500.3400 #### [facility] [address] [place], [address] Serum or plasma calcium ilsa urement (mass/volume)Ordered By: Rachael Crook on 12-22-2024 Calcium [Mass/Vol] 8.5 mg/dL Normal 7.6-11.0 [facility] Comment on above: Performed By: #### L 500.3400 #### [facility] [address] [place], [place], [phone] ([phone] Serum or plasma urea nitroge n measurement (mass/volume)Ordered By: Rachael Crook on 12-22-2024 Urea nitrogen [Mass/Vol] 14 mg/dL Normal 4-19 [facility] Comment on above: Performed By: #### L 500.3400 #### [facility] [address] [place], [address] Sodium levelOrdered By: Rachael Corok on 12-22-2024 Sodium [Moles/Vol] 134 mmol/L Normal 133-145 [facility] Comment on above: Performed By: #### L 500.3400 #### [facility] [address] [place], [place], [id number] (155 Troponin T HS 4 HRon 025 Trop T High Sen 37 ng/L High <=14 [facility] Comment on above: Performed By: #### L 499.0043 #### [facility] [address] [place], [address] White blood cell (WBC) count Ordered By: Rachael Crook on 12-22-2024 WBC (Bld) [#/Vol] 6.7 10*3/uL 4.4-11.0 [facility] 12 Lead EKGon 12-21-2024 12 Lead EKG [facility] Cardiovascular Services [address] [place] [address] 12 Lead EKG 12/21/241957 MR#: [id number] Acct: [id number] Name: SPENSER PUTNAM Rep #: [id number] : 1940 84 From: Familia Ng MD Attending Dr: Dr. Chelsea Carbone DO Status: A DM JANNETTE Ordering Dr: Mabel Downing MD Date: 12/21/24 Location: [facility] Sex: F C Admitted: 12/21/24 Test Reason : DYSRHYTHMIA Blood Pressure : */* mmHG Vent. Rate : 57 BPM Atrial Rate : 57 BPM P-R Int : 166 ms QRS Dur : 84 ms QT Int : 448 ms P-R-T Axes : 60 20 46 degrees QTcB Int : 436 ms Sinus bradycardia Otherwise normal ECG Confirmed by HERNANDEZ RANDALL, FAMILIA ([id number]), book or script editor ALISSON COLUNGA ([id number]) on 12/22/2024 10:55:39 AM Referred By: JW Confirmed By: FAMILIA NG MD 12/22/24 1057 Date Familia Ng MD CC: Dr. Mabel Downing MD; Dr. Juan Spann MD; Dr. Chelsea Carbone DO Signed Normal [facility] Abdomen/Pelvis W IV Cont ONL Yon 12-21-2024 Abdomen/Pelvis W IV Cont ONLY [facility] Imaging Services [address] [place], [place] [address] Abdomen/Pelvis W IV Cont ONLY MR#: [id number] Acct: [id number] Name: SPENSER PUTNAM Rep #: [id number] : 1940 F 84 From: Anthony Clinton MD PCP: Dr. Juan Spann MD Status: REG ER Study: Abdomen/Pelvis W IV Cont ONLY Date of Exam: Exam# [id number] Ordering Dr: Mabel Downing MD PROCEDURE: ABDOMEN/PELVIS W IV CONT ONLY 12/21/2024 REASON FOR EXAM: LOWER ABD PAIN TECHNIQUE: Procedure Code: [id number] Modality: CT Procedure: ABDOMEN/PELVIS W IV CONT ONLY Coronal and Sagittal reconstruction series were provided. CONTRAST: Isovue 300 VOLUME: 90 mL One or more dose reduction techniques were used (e.g., Automated exposure control, adjustment of the mA and/or kV according to patient size, use of iterative reconstruction technique. RADIATION DOSE SUMMARY: CTDlvol: 14.02 mGy DLP: 665.29 mGycm COMPARISON: None FINDINGS: Lung bases: There is dependent atelectasis at the lung bases. Atherosclerotic coronary calcifications are present. Calcified granulomata are noted in the right lower lung zone. There may be tiny noncalcified nodules noted although respiratory motion and dependent atelectasis limits. Liver: The liver is grossly unremarkable. Gallbladder: The gallbladder is surgically absent. There is likely compensatory common and intrahepatic biliary ductal dilatation. Spleen: Unremarkable Pancreas: The pancreas is atrophic but otherwise unremarkable. Adrenals: Unremarkable Kidneys: There is no hydronephrosis or nephrolithiasis. Bladder: Unremarkable. Reproductive Organs: Unremarkable Bowel: There is a moderate amount colonic stool. No evidence of bowel obstruction. Appendix: The appendix is not definitively seen. There are no inflammatory changes in the right lower quadrant to suggest acute appendicitis. Lymph nodes: There is no intra-abdominal adenopathy. Vasculature: Atherosclerotic aortoiliac calcifications are present. Peritoneum / Retroperitoneum: No free air or free fluid. Bones: There is mild levoconvex curvature of the lumbar spine. Fusion hardware is noted at L3 through L5. Degenerative disc space narrowing is noted at L5-S1 and there is grade 1 anterolisthesis of L4 on L5 and L5 on S1. A spinal stimulator is present. There are calcifications noted at the hamstring origins bilaterally, potentially related to chronic stress/old injury. CT/Abdomen/Pelvis W IV Cont ONLY IMPRESSION: No definite explanation for the patient's lower abdominal pain. There is a brudqobg-tj-xwtdv amount of stool in sigmoid colonic loops. No definite bowel obstruction however. Other details as above. Reading Location: [facility] CC: Dr. Mabel Downing MD; Dr. Juan Spann MD Ring Facer: Signed Normal [facility] Basic Metabolic Profile (BMP )on 12-21-2024 BUN/CRE 18.3 RATIO Normal - [facility] Comment on above: Performed By: #### L 500.2500, L501.4021, L501.2450, L100.0100, L500.3400 #### [facility] [address] [place], [address] Calcium [Mass/Vol] 9.2 mg/dL Normal 7.6-11.0 [facility] Comment on above: Performed By: #### L 500.2500, L501.4021, L501.2450, L100.0100, L500.3400 #### [facility] [address] [place], [address] Chloride [Moles/Vol] 99 mmol/L Normal 98-108 [facility] Comment on above: Performed By: #### L 500.2500, L501.4021, L501.2450, L100.0100, L500.3400 #### [facility] [address] [place], [address] CO2 [Moles/Vol] 23.1 mmol/L Normal 21.0-32.0 [facility] Comment on above: Performed By: #### L 500.2500, L501.4021, L501.2450, L100.0100, L500.3400 #### [facility] [address] [place], [address] Creatinine [Mass/Vol] 0.98 mg/dL Normal 0.70-1.20 [facility] Comment on above: Performed By: #### L 500.2500, L501.4021, L501.2450, L100.0100, L500.3400 #### [facility] [address] [place], [address] ECRCL 36.10 ml/min Low 50-250 [facility] Comment on above: Performed By: #### L 500.2500, L501.4021, L501.2450, L100.0100, L500.3400 #### [facility] [address] [place], [address] GAP 12 Normal 5-15 [facility] Comment on above: Performed By: #### L 500.2500, L501.4021, L501.2450, L100.0100, L500.3400 #### [facility] [address] [place], [address] GFR/1.73 sq M.predicted among non-blacks MDRD (S/P/Bld) [Vol rate/Area] 57 mL/min/{1.73_m2} Low >60 [facility] Comment on above: Result Comment: mL/m in/1.73m2 CKD-EPI Creatinine Equation (2020) Performed By: #### L 500.2500, L501.4021, L501.2450, L100.0100, L500.3400 #### [facility] [address] [place], [address] Glucose [Mass/Vol] 101 mg/dL High 70-99 [facility] Comment on above: Performed By: #### L 500.2500, L501.4021, L501.2450, L100.0100, L500.3400 #### [facility] [address] [place], [address] Potassium [Moles/Vol] 3.5 mmol/L Normal 3.3-5.1 [facility] Comment on above: Performed By: #### L 500.2500, L501.4021, L501.2450, L100.0100, L500.3400 #### [facility] [address] [place], [address] Sodium [Moles/Vol] 134 mmol/L Normal 133-145 [facility] Comment on above: Performed By: #### L 500.2500, L501.4021, L501.2450, L100.0100, L500.3400 #### [facility] [address] [place], [address] Urea nitrogen [Mass/Vol] 18 mg/dL Normal - [facility] Comment on above: Performed By: #### L 500.2500, L501.4021, L501.2450, L100.0100, L500.3400 #### [facility] [address] [place], [address] Bilirubin Test strip Ql (U)O rdered By: Mabel Downing on 12-21-2024 Bilirubin Ql (U) Negative Negative [facility] Bilirubin directOrdered By: Mabel Downing on 12-21-2024 Bilirubin.direct [Mass/Vol] 0.21 mg/dL 0.00-0.30 [facility] Bilirubin, totalOrdered By: Mabel Downing on 12-21-2024 Bilirubin [Mass/Vol] 0.47 mg/dL 0.00-1.30 [facility] CBC W/Diff, Automatedon 12-08 Absolute Lymph 3.68 X10 3/uL Normal 0.83-4.51 [facility] Comment on above: Performed By: #### L 500.2500, L501.4021, L501.2450, L100.0100, L500.3400 #### [facility] [address] [place], [address] Absolute Neut 6.1 X10 3/uL Normal 2.0-7.7 [facility] Comment on above: Performed By: #### L 500.2500, L501.4021, L501.2450, L100.0100, L500.3400 #### [facility] [address] [place], [address] Basophils/100 WBC (Bld) 0.3 % Normal 0-1 [facility] Comment on above: Performed By: #### L 500.2500, L501.4021, L501.2450, L100.0100, L500.3400 #### [facility] [address] [place], [address] Eosinophils/100 WBC (Bld) 0.4 % Normal 0-5 [facility] Comment on above: Performed By: #### L 500.2500, L501.4021, L501.2450, L100.0100, L500.3400 #### [facility] [address] [place], [address] Erythrocyte distribution width (RBC) [Ratio] 14.5 % Normal 11.6-14.6 [facility] Comment on above: Performed By: #### L 500.2500, L501.4021, L501.2450, L100.0100, L500.3400 #### [facility] [address] [place], [address] Hematocrit (Bld) [Volume fraction] 34.0 % Low 37-47 [facility] Comment on above: Performed By: #### L 500.2500, L501.4021, L501.2450, L100.0100, L500.3400 #### [facility] [address] [place], [address] Hemoglobin (Bld) [Mass/Vol] 11.0 g/dL Low 12.0-15.0 [facility] Comment on above: Performed By: #### L 500.2500, L501.4021, L501.2450, L100.0100, L500.3400 #### [facility] [address] [place], [address] IG% 0.400 Normal 0.0-0.9 [facility] Comment on above: Result Comment: IG% - Immature Granulocytes (promyelocytes, myelocytes and metamyelocytes) > 1% indicates that a LEFT SHIFT is Present. Performed By: #### L 500.2500, L501.4021, L501.2450, L100.0100, L500.3400 #### [facility] [address] [place], [address] Lymphocytes/100 WBC (Bld) 34.6 % Normal 19-41 [facility] Comment on above: Performed By: #### L 500.2500, L501.4021, L501.2450, L100.0100, L500.3400 #### [facility] [address] [place], [address] MCH (RBC) [Entitic mass] 29.3 pg Normal 27.0-32.0 [facility] Comment on above: Performed By: #### L 500.2500, L501.4021, L501.2450, L100.0100, L500.3400 #### [facility] [address] [place], [address] MCHC (RBC) [Mass/Vol] 32.4 g/dL Normal 32-36 [facility] Comment on above: Performed By: #### L 500.2500, L501.4021, L501.2450, L100.0100, L500.3400 #### [facility] [address] [place], [address] MCV (RBC) [Entitic vol] 90.4 fL Normal 81-99 [facility] Comment on above: Performed By: #### L 500.2500, L501.4021, L501.2450, L100.0100, L500.3400 #### [facility] [address] [place], [address] Monocytes/100 WBC (Bld) 7.3 % Normal 0-10 [facility] Comment on above: Performed By: #### L 500.2500, L501.4021, L501.2450, L100.0100, L500.3400 #### [facility] [address] [place], [address] Neutrophils/100 WBC (Bld) 57.0 % Normal 47-70 [facility] Comment on above: Performed By: #### L 500.2500, L501.4021, L501.2450, L100.0100, L500.3400 #### [facility] [address] [place], [address] Nucleated RBC (Bld) [#/Vol] 0 10*3/uL Normal 0-5 [facility] Comment on above: Performed By: #### L 500.2500, L501.4021, L501.2450, L100.0100, L500.3400 #### [facility] [address] [place], [address] Platelet mean volume (Bld) [Entitic vol] 9.6 fL Normal 6.2-12.0 [facility] Comment on above: Performed By: #### L 500.2500, L501.4021, L501.2450, L100.0100, L500.3400 #### [facility] [address] [place], [address] Platelets (Bld) [#/Vol] 254 10*3/uL Normal 150-450 [facility] Comment on above: Performed By: #### L 500.2500, L501.4021, L501.2450, L100.0100, L500.3400 #### [facility] [address] [place], [address] RBC (Bld) [#/Vol] 3.76 10*6/uL Low 4.2-5.4 [facility] Comment on above: Performed By: #### L 500.2500, L501.4021, L501.2450, L100.0100, L500.3400 #### [facility] [address] [place], [address] RDW SD 47.8 fl High 35.1-43.9 [facility] Comment on above: Performed By: #### L 500.2500, L501.4021, L501.2450, L100.0100, L500.3400 #### [facility] [address] [place], [address] WBC (Bld) [#/Vol] 10.7 10*3/uL Normal 4.4-11.0 [facility] Comment on above: Performed By: #### L 500.2500, L501.4021, L501.2450, L100.0100, L500.3400 #### [facility] [facility] [address] [place], [address] Chest PA and Lateralon 12-21 Chest PA and Lateral [facility] Imaging Services [address] [place] [address] Chest PA and Lateral MR#: [id number] Acct: [id number] Name: SPENSER PUTNAM Rep #: [id number] : 1940 F 84 From: Anthony Clinton MD PCP: Dr. Juan Spann MD Status: [facility] ER Study: Chest PA and Lateral Date of Exam: 12/21/24 Exam# [id number] Ordering Dr: Mabel Downing MD PROCEDURE: CHEST PA AND LATERAL 12/21/2024 REASON FOR EXAM: SYNCOPE TECHNIQUE: Procedure Code: RADCXR Modality: DX Procedure: CHEST PA AND LATERAL COMPARISON: None FINDINGS: The lungs are hyperinflated. There is no focal consolidation, pneumothorax, or pleural effusion. The cardiomediastinal silhouette is unremarkable. Spinal stimulators overlie the thoracic spine. No acute osseous abnormality. RAD/Chest PA and Lateral IMPRESSION: No acute abnormality. Reading [facility] CC: Dr. Mabel Downing MD; Dr. Juan Spann MD Ring Facer: Signed Normal [facility] Emergency Department Summary on 12-21-2024 Emergency Department Summary [facility] Medical Records Department [address] [place] [address] Emergency Department Summary 12/21/24 MR#: [id number] Acct: [id number] Name: SPENSER PUTNAM Rep #: [id number] : 1940 84 From: Mable Downing MD PCP: Dr. Juan Spann MD Status:REG ER Location: ED HPI History of Present Illness Chief Complaint: Syncope Detail of Chief Complaint: Syncopal event at home. Informant: patient and family ( and daughter at bedside.) Onset/Context/Timing Onset: Today Context: Sudden Onset Timing: Intermittent Current Severity: Mild Maximum Severity: Severe Narrative Narrative: 84-year-old female history of anemia, heart murmur, back surgery as a spinal stimulator. Was in her normal state of health. No recent illness. Jefe passed out at home. She passed on the chair they lowered her to the ground. Her daughter is in the medical field. Gave her 2 rescue breaths as she was not breathing and she could not palpate a pulse and the patient came to. She required no CPR. Daughter said this lasted maybe 5 minutes. Prior to the event she denied any headache, chest pain, shortness of breath. Now she states she does have some abdominal pain. Denies recent abdominal pain. No dysuria. No constipation or melena. This all occurred primarily around 7 PM. She has had syncopal events before but nothing to this degree. No known cardiac history or prior cardiac surgery. Prior similar symptoms: No Recent Illness/Hospitalizat ion: No PFSH PFSH Medical History Elevated d-dimer Chronic anemia HLD (hyperlipidemia) HTN (hypertension) Back pain with radiculopathy Anxiety and depression RLS (restless legs syndrome) BPPV (benign paroxysmal positional vertigo) Home Medications ???Medication ???Instructions ???Recorded ???Last Taken ???Type aspirin 81 mg chewable tablet 81 mg PO DAILY@0800 heart health 1 04/29/12 12/05/19 History calcium 600 mg (as 600 mg PO DINNER supplement 12/04/19 History carbonate)-vitamin D3 20 mcg (800 unit) tablet pravastatin 20 mg tablet 20 mg PO QHS cholesterol 12/05/19 12/04/19 History lisinopril 20 mg tablet 20 mg PO DAILY 03/31/21 Unknown Hi story potassium chloride 20 mEq 20 meq PO BID 11/13/23 Unknown His tory tablet,extended release spironolactone 50 mg tablet 50 mg PO DAILY 11/13/23 Unknown Hi story cholecalciferol (vitamin D3) 25 25 mcg PO DAILY 12/21/24 Unknown H istory mcg (1,000 unit) capsule magnesium 200 mg tablet 400 mg PO DAILY 12/21/24 Unknown H istory ropinirole 4 mg tablet 4 mg PO QHS 12/21/24 Unknown Histo ry Allergy/AdvReac Type Severity Reaction Status Date / Time Sulfa (Sulfonamide Allergy Swelling Verified 12/21/24 19:49 Antibiotics) acetaminophen (From Vicodin) AdvReac Vomiting Verified 12/21/24 19:49 hydrocodone bitartrate (From AdvReac Vomiting Verified 12/21/24 19:49 Vicodin) promethazine HCl (From AdvReac Vomiting Verified 12/21/24 19:49 Phenergan) Family History Mother Heart disease Father Heart disease Surgical History S/P cholecystectomy Social History household members: spouse Smoking Status: Never smoker alcohol intake: never substance use type: does not use ROS ROS ED ROS Narrative Denies recent illness. Constitutional Constitutional ED: Denies chills or fever(s) Eyes Eyes: Denies blurry vision Cardiovascular Cardiovascular: Denies chest pain Respiratory/Chest Respiratory/Chest: Denies cough or dyspnea Gastrointestinal Gastrointestinal: Reports abdominal pain and other Details: Abdominal pain after the syncopal event tonight. Genitourinary Genitourinary ED: Denies dysuria or hematuria Musculoskeletal Musculoskeletal: Denies arthralgias Integumentary Denies abscess Neurologic Neurologic: Denies headache(s) Psychiatric Psychiatric: Denies anxiety Endocrine Endocrinology: Denies cold intolerance Hematologic/Lymphati c Hematologic/Lymphati c: Reports none Allergic/Immunologic Allergic/Immunologic ED: Denies mouth swelling, tongue swelling or urticaria EXAM Physical Exam Narrative Exam Narrative: 84-year-old female sitting upright in bed. Blood pressure 99/47 daughter states she normally runs low like this. Patient is awake alert. and daughter at bedside. H EENT exam pupils round react light. Moist rehemorrhage. No facial droop. No trauma to her face or scalp. Neck nontender. Back nontender. Lungs clear to auscultation bilaterally. Heart rate about 58 4/6 systolic ejection murmur with a history of a murmur. Chest wall and ribs nontender. Abdomen soft nondistended nor (more content not included)... Normal [facility] H&P Exam - Hospitalist [facility] Medical Records Department [address] [place] [address] H P Exam - Hospitalist 12/21/242117 MR#: [id number] Acct: [id number] Name: SPENSER PUTNAM Rep #: [id number] : 1940 84 From: Rachael Crook MD PCP: Dr. Juan Spann MD Status:ADM JANNETTE Location: [place] [address] HPI - General General Date of Admission: 12/21/24 Date of Service: 12/21/24 Chief Complaint: syncope HPI Narrative SPENSER PUTNAM, is a 84 F with a PMH as outlined who was admitted via the ED on 12/21/2024 with a complaint of syncope on hte day of admission. She had been feeling well until the evening of the day of admission when she passed out in her chair. Family said they noted she stopped breathing and per daughter she did not have a pulse. Daughter prepared to start CPR, but patient came around spontaneously. She denied any dizziness, lightheadedness, nausea, vomiting or any other symptoms. She subsequently did admit to abdomina pain and some constipation. Per review of her chart she did have a similar presentation in November 2023 and workup was negative. 2D echo done then showed EF of 70% with no regional wall motion abnormalities. She did have a Holter monitor that at that time which showed that her predominant rhythm was sinus and there were 151 ventricular ectopic beats with a burden of less than 1% and 377 supraventricular ectopic beats with a burden of less than 1% and 1 occurrence of supraventricular tachycardia with the fastest response. She had been doing well until this episode recurred. Vitals in the ED were blood pressure 106/47, pulse rate of 66 and respiratory rate 12. She was saturating at 97% on room air. CBC showed hemoglobin of 11 with WBC of 10.7 and platelets of 254. Chemistry showed sodium of 134 with potassium of 3.5 and bicarb of 23.1. Creatinine was 0.98. Urinalysis showed no evidence of UTI. EKG showed no acute ST changes. Chest x-ray showed no acute cardiopulmonary pathology. CT of the abdomen and pelvis done showed moderate to large amount of stool in the sigmoid colonic loops and no definite bowel obstruction. She has been admitted to be managed for syncope of unclear etiology. [facility] Medical History Elevated d-dimer Chronic anemia HLD (hyperlipidemia) HTN (hypertension) Back pain with radiculopathy Anxiety and depression RLS (restless legs syndrome) BPPV (benign paroxysmal positional vertigo) Home Medications ???Medication ???Instructions ???Recorded ???Last Taken ???Type aspirin 81 mg chewable tablet 81 mg PO DAILY@0800 heart [facility] 1 04/29/12 12/05/19 History calcium 600 mg (as 600 mg PO DINNER supplement 12/04/19 History carbonate)-vitamin D3 20 mcg (800 unit) tablet pravastatin 20 mg tablet 20 mg PO QHS cholesterol 12/05/19 12/04/19 History lisinopril 20 mg tablet 20 mg PO DAILY 03/31/21 Unknown Hi story potassium chloride 20 mEq 20 meq PO BID 11/13/23 Unknown His tory tablet,extended release spironolactone 50 mg tablet 50 mg PO DAILY 11/13/23 Unknown Hi story cholecalciferol (vitamin D3) 25 25 mcg PO DAILY 12/21/24 Unknown H istory mcg (1,000 unit) capsule magnesium 200 mg tablet 400 mg PO DAILY 12/21/24 Unknown H istory ropinirole 4 mg tablet 4 mg PO QHS 12/21/24 Unknown Histo ry Allergy/AdvReac Type Severity Reaction Status Date / Time Sulfa (Sulfonamide Allergy Swelling Verified 12/21/24 19:49 Antibiotics) acetaminophen (From Vicodin) AdvReac Vomiting Verified 12/21/24 19:49 hydrocodone bitartrate (From AdvReac Vomiting Verified 12/21/24 19:49 Vicodin) promethazine HCl (From AdvReac Vomiting Verified 12/21/24 19:49 Phenergan) Family History Mother Heart disease Father Heart disease Surgical History S/P cholecystectomy Social History household members: spouse Smoking Status: Never smoker alcohol intake: never substance use type: does not use ROS Constitutional Constitutional: Reports fatigue, malaise and weakness; Denies anorexia, chills or fever(s) Eyes Eyes: Denies blurry vision or change in vision ENT HEENT: Denies dysphagia, headache(s) or sore throat Cardiovascular Cardiovascular: Reports syncope; Denies chest pain, dyspnea on exertion, edema, lightheadedness, orthopnea, palpitations, paroxysmal nocturnal dyspnea or rapid heart rate Respiratory/Chest Respiratory/Chest: Denies cough, dyspnea, productive cough, shortness of breath at rest or shortness of breath with exertion Gastrointestinal Gastrointestinal: Denies abdominal pain, constipation, diarrhea, nausea or vomiting Genitourinary Genitourinary: Denies dysuria Neurolo (more content not included)... Normal [facility] Hyaline casts LM.LPF (Urine sed) [#/Area]Ordered By: Mabel Downing on 12-21-2024 Hyaline casts (Urine sed) [#/Area] 0 /[LPF] 0-5 [facility] Ketones Test strip Ql (U)Ord ered By: Mabel Downing on 12-21-2024 Ketones Ql (U) Negative Negative [facility] L501.4021on 12-21-2024 Trop T High Sen 35 ng/L High <=14 [facility] Comment on above: Performed By: #### L 500.2500, L501.4021, L501.2450, L100.0100, L500.3400 #### [facility] Laboratory [address] [place], [address] Laboratory - Chemistry and C hemistry - challengeOrdered By: Mabel Downing on 12-21-2024 AST [Catalytic activity/Vol] 21 U/L <32 [facility] Lactic acid measurementOrder ed By: Mabel Downing on 12-21-2024 Lactate [Moles/Vol] 1.7 mmol/L Normal 0.0-2.0 [facility] Comment on above: Order Comment: Y Performed By: #### L 503.6005 #### [facility] Laboratory [address] [facility] [place], [place], [id number] Lipaseon 12-21-2024 Lipase [Catalytic activity/Vol] 17 U/L Normal 13-75 [facility] Comment on above: Result Comment: Giancarlo alberto note: LIPASE revised reference range effective 22. New Lipase methodology. Expected to produce lower values than the previous assay method. NEW Reference Range: 13 - 75 U/L Performed By: #### L 500.2500, L501.4021, L501.2450, L100.0100, L500.3400 #### [facility] [address], [address] Lipase measurementOrdered By : Mabel Downing on 12-21-2024 Lipase [Catalytic activity/Vol] 17 U/L 13-75 [facility] Comment on above: Please note:LIPASE r evised reference range effective 22. New Lipase methodology. Expected to produce lower values than the previous assay method. NEW Reference Range: 13 - 75 U/L Liver Profileon 12-21-2024 Albumin [Mass/Vol] 3.6 g/dL Normal 3.4-4.8 [facility] Comment on above: Performed By: #### L 500.2500, L501.4021, L501.2450, L100.0100, L500.3400 #### [facility] [address] [place], [address] ALK PHOS 77 U/L Normal 35-104 [facility] Comment on above: Performed By: #### L 500.2500, L501.4021, L501.2450, L100.0100, L500.3400 #### [facility] [address] [place], [address] ALT [Catalytic activity/Vol] 7 U/L Normal <=34 [facility] Comment on above: Performed By: #### L 500.2500, L501.4021, L501.2450, L100.0100, L500.3400 #### [facility] [address] [place], [address] AST [Catalytic activity/Vol] 21 U/L Normal <=31 [facility] Comment on above: Performed By: #### L 500.2500, L501.4021, L501.2450, L100.0100, L500.3400 #### [facility] [address] [place], [address] Bilirubin [Mass/Vol] 0.47 mg/dL Normal 0.00-1.30 [facility] Comment on above: Performed By: #### L 500.2500, L501.4021, L501.2450, L100.0100, L500.3400 #### [facility] [address] [place], [address] Bilirubin.direct [Mass/Vol] 0.21 mg/dL Normal 0.00-0.30 [facility] Comment on above: Performed By: #### L 500.2500, L501.4021, L501.2450, L100.0100, L500.3400 #### [facility] [address] [place], [address] Globulin (S) [Mass/Vol] 2.7 g/dL Normal 2.2-4.2 [facility] Comment on above: Performed By: #### L 500.2500, L501.4021, L501.2450, L100.0100, L500.3400 #### [facility] [address] [place], [address] T PROT 6.4 g/dL Normal 5.9-8.4 [facility] Comment on above: Performed By: #### L 500.2500, L501.4021, L501.2450, L100.0100, L500.3400 #### [facility] [address] [place], [address] ALB Normal 3.4-4.8 [facility] Comment on above: Result Comment: MOVE D TO C458 Performed By: #### L 500.3400 #### [facility] [address] [place], [address] ALK PHOS Normal 35-104 [facility] Comment on above: Result Comment: MOVE D TO C458 Performed By: #### L 500.3400 #### [facility] [address] [place], [address] ALT Normal <=34 [facility] Comment on above: Result Comment: MOVE D TO C458 Performed By: #### L 500.3400 #### [facility] [address] [place], [address] AST Normal <=31 [facility] Comment on above: Result Comment: MOVE D TO C458 Performed By: #### L 500.3400 #### [facility] [address] [place], [address] D BILI Normal 0.00-0.30 [facility] Comment on above: Result Comment: MOVE D TO C458 Performed By: #### L 500.3400 #### [facility] [address] [place], [address] T BILI Normal 0.00-1.30 [facility] Comment on above: Result Comment: MOVE D TO C458 Performed By: #### L 500.3400 #### [facility] [address] [place], [address] T PROT Normal 5.9-8.4 [facility] Comment on above: Result Comment: MOVE D TO C458 Performed By: #### L 500.3400 #### [facility] [address] [place], [address] Microscopic analysis of urin e for red blood cells (RBC)Ordered By: Mabel Downing on 12-21-2024 Microscopic analysis of urine for red blood cells (RBC) 0-5 SEEN /hpf 0-5 [facility] Mucus LM Ql (Urine sed)Order ed By: Mabel Downing on 12-21-2024 Mucus Ql (Urine sed) 0 SEEN /hpf [facility] Nitrite Test strip Ql (U)Ord ered By: Mabel Downing on 12-21-2024 Nitrite Ql (U) Negative Negative [facility] Protein Test strip Ql (U)Ord ered By: Mabel Downing on 12-21-2024 Protein Ql (U) 30 mg/dl High Negative [facility] Serum globulin measurementOr dered By: Mabel Downing on 12-21-2024 Globulin (S) [Mass/Vol] 2.7 g/dL 2.2-4.2 [facility] Serum or plasma alanine akins otransferase (ALT) measurementOrdered By: Mabel Downing on 12-21-2024 ALT [Catalytic activity/Vol] 7 U/L <35 [facility] Serum or plasma albumin ilsa urement (mass/volume)Ordered By: Mabel Downing on 12-21-2024 Albumin [Mass/Vol] 3.6 g/dL 3.4-4.8 [facility] Serum or plasma alkaline theodore sphatase measurementOrdered By: Mabel Downing on 12-21-2024 ALP [Catalytic activity/Vol] 77 U/L 35-104 [facility] Squamous epithelial cells de tection in urine sediment by light microscopyOrdered By: Mabel Downing on 12-21-2024 Epithelial cells.squamous LM Ql (Urine sed) 5-10 SEEN /hpf 5-10 [facility] Total proteinOrdered By: Sen Downing on 12-21-2024 Protein [Mass/Vol] 6.4 g/dL 5.9-8.4 [facility] Troponin T HS 2 HRon 025 Trop T High Sen 35 ng/L High <=14 [facility] Comment on above: Performed By: #### L 499.0042 #### [facility] [address] [place], [address] Troponin T.cardiac [Mass/vol ume] in Serum or Plasma by High sensitivity methodOrdered By: Mabel Downing on 12-21-2024 Troponin T.cardiac High sensitivity method [Mass/Vol] 37 ng/L High <14 [facility] Troponin T.cardiac High sensitivity method [Mass/Vol] 35 ng/L High <14 [facility] Urinalysis, Completeon 12-21 CAST,HYALINE 0-5 SEEN Normal 0-5 [facility] Comment on above: Order Comment: NAY TER SPECIMEN Performed By: #### L 400.0001 #### [facility] [address] [place], [address] EPI,SQUAMOUS 5-10 SEEN Normal 5-10 [facility] Comment on above: Order Comment: NAY TER SPECIMEN Performed By: #### L 400.0001 #### [facility] [address] [place], [address] RBC 0-5 SEEN Normal 0-5 [facility] Comment on above: Order Comment: NAY TER SPECIMEN Performed By: #### L 400.0001 #### [facility] [address] [place], [address] WBC 0-5 SEEN Normal 0-5 [facility] Comment on above: Order Comment: NAY TER SPECIMEN Performed By: #### L 400.0001 #### [facility] [address] [place], [address] BACTERIA 0 SEEN Normal None Seen [facility] Comment on above: Order Comment: NAY TER SPECIMEN Performed By: #### L 400.0001 #### [facility] [address] [place], [place], [id number] Mucus Ql (Urine sed) 0 SEEN Normal [facility] Comment on above: Order Comment: NAY TER SPECIMEN Performed By: #### L 400.0001 #### [facility] [address] [place], [place], [address] Urine clarityOrdered By: Sen Downing on 12-21-2024 Clarity (U) Clear Clear [facility] Urine color determinationOrd ered By: Mabel Downing on 12-21-2024 Color (U) Yellow Yellow [facility] Urine glucose detectionOrder ed By: Mabel Downing on 12-21-2024 Glucose Ql (U) Normal mg/dl Normal [facility] Urine leukocyte esterase det ection by dipstickOrdered By: Mabel Downing on 12-21-2024 Leukocyte esterase Test strip Ql (U) Negative Negative [facility] Urine pHOrdered By: Mabel mendoza on 12-21-2024 pH (U) 6.5 [pH] 5.0 - 8.0 [facility] Urine sediment bacteria coun t by microscopy (number/high power field)Ordered By: Mabel Downing on 12-21-2024 Bacteria LM.HPF (Urine sed) [#/Area] 0 /[HPF] None Seen [facility] Urine specific gravity measu rementOrdered By: Mabel Downing on 12-21-2024 Specific gravity (U) [Rel density] 1.015 1.002-1.030 [facility] Urine urobilinogen measureme ntOrdered By: Mabel Downing on 12-21-2024 Urobilinogen Ql (U) Normal mg/dl Normal [facility] White blood cell countOrdere d By: Mabel Downing on 12-21-2024 White blood cell count 0-5 SEEN /hpf 0-5 [facility] CNOVon 12-06-2024 CNOV Office Visit (FAMPWS) SPENSER PUTNAM ([id number]) 1940 F Date Time Provider Department 12/06/24 1:40 PM JUAN SPANN During your visit today, we recorded the following information about you: Pulse Respiration Blood pressure 84/minute 18/minute 126/66 Juan Spann MD 12/06/2024 3:34 PM Signed Chief Complaint Patient presents with: Pain: Right groin, upper leg HPI Spenser Putnam is a 83 year old female who presents here today for an acute visit. Patient presents to the office today for severe right upper leg/groin pain that is limiting mobility. Pt states that she's been getting along fine since she had spinal stimulator surgery and placed, back in June, until recently about 2-3 weeks ago. Recently she's been experiencing right groin pain, but mostly in the right upper leg but near her private area of an intense aching and stabbing pain that's rated an 8-9/10. Pain is very localized, denies pain radiating any where or down her leg. With every step the pain is severe. Patient did not report any urinary/bowel incontinence just pain. She was previously using a cane to ambulate but has now switched to a walker, since pain has worsened. When she's ambulating without an assistive device she has to have help and can only go short distances. Denies knowing what has caused this, denies any injury. She said last night was one of her worst nights, she maybe got two hours of sleep. On the phone, patient just stated she wasn't sure how to really describe it other than painful. Has question about Requip, states the new mental health coordinator is making her ill. Spenser is an 83-year-old female with a history of arthritis, presenting with acute right hip pain. Spenser reports a recent onset of right hip pain, which she initially thought might be due to a strain or pull. The pain is localized in the groin area and is described as severe, particularly exacerbated last night, resulting in only 2 hours of sleep. She has been taking Aleve for pain management. She denies any associated weakness or numbness in the leg. She has a history of arthritis and had a hip x-ray in 2022, which showed mild to moderate changes with prominent spurring at the right hip, similar to a previous x-ray in 2015. She also has a spinal stimulator, which has improved her back pain but has reportedly caused diarrhea. She has been more active recently, and this may have contributed to the hip pain. She also reports experiencing nausea after taking a new generic form of her medication, Ropinirole, for two nights. She notes that the new medication is a different color and has caused significant nausea, requiring her to keep a bowl nearby. She plans to ask her pharmacy for a different medication. Past medical history, appointments, medications, allergies reviewed. 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 Macias, Rt anterior shoulder, Gilberto III, pT1a, pNX, pM N/A Mixed hyperlipidemia 10/13/2014 Multiple thyroid nodules 09/15/2017 CT neck09/2017 7 mm nodule, US .2018 multiple small nodules repeat 09/2019 Non morbid obesity 03/29/2016 Osteopenia, senile 07/02/2005 SEE DEXA 07/15 Other chronic dermatitis due to solar radiation 03/27/2006 Other psoriasis 04/16/2013 Other seborrheic keratosis 06/23/2006 Personal history of other malignant neoplasm of skin 03/22/2013 Raynaud's phenomenon without gangrene 06/07/2020 suspected Restless leg syndrome Sensorineural hearing loss, asymmetrical 10/08/2017 Solar lentigo 03/22/2013 Spinal stenosis of lumbar region 06/17/2023 Spinal stenosis, lumbar region, without neurogenic claudication 07/25/2023 Spondylolisthesis at L5-S1 level 10/20/2012 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 09/15/2012 Vertigo 12/03/2021 MRI normal and patient declined further eval as of 12/03/21 Vitamin B12 deficiency 11/09/2023 Vitamin D deficiency 08/24/2016 Xerosis cutis 03/22/2013 Previous Surgical History PAST SURGICAL HISTORY Procedure (more content not included)... Normal [facility] SPENSER PUTNAM ([id number]) 1940 F Date Time Provider Department 12/06/24 JUAN SPANN [facility] During your visit today, we recorded the following information about you: Yue Kirkland MA 12/06/2024 9:22 AM Addendum Call to pt to Triage, per PCP request. Discussed pt symptoms in regards to appt today. Pt states that she's been getting along fine since she had spinal stimulator surgery and placed, back in June, until recently (no specific date). Recently she's been experiencing right groin pain, but mostly in the right upper leg but near her private area of an intense aching and stabbing pain that's rated an 8-9/10. Pain is very localized, denies pain radiating any where or down her leg. With every step the pain is severe. Patient did not report any urinary/bowel incontinence just pain. She was previously using a cane to ambulate but has now switched to a walker, since pain has worsened. When she's ambulating without an assistive device she has to have help and can only go short distances. Denies knowing what has caused this, denies any injury. She said last night was one of her worst nights, she maybe got two hours of sleep. On the phone, patient just stated she wasn't sure how to really describe it other than painful. Patient made aware that I would update PCP with her symptoms and get back to her regarding appt today. Patient verbalized understanding. PREMA Stephens Jeffrey A, MD 12/06/2024 9:56 AM Signed Info noted. Suspect her right hip arthritis has gotten worse. Yue Kirkland MA 12/06/2024 11:25 AM Signed Call to pt and notified her that PCP will see her in office today, pt verbalized understanding. Yue Kirkland MA Allergies As of Date: 12/06/2024 Noted Allergy Reaction SULFA (SULFONAMIDE ANTIBIOTICS) 04/11/2005 7 - Swelling 10 - Anaphylaxis Comments: Tongue/ throat swelled [place] 03/18/2013 11 - Vomiting Comments: Vomiting HYDROCODONE-ACETAMIN OPHEN 12/30/2011 8 - GI Upset Comments: NAUSEA PROCARDIA (NIFEDIPINE) 06/26/2020 7 - Swelling Comments: legs Date Reviewed: 09/17/2024 Reviewed by: Juan Spann MD - Fully Assessed Reason for Visit: Patient Update [1234] Prescriptions as of 12/06/2024 - spironolactone (ALDACTONE) 50 mg tablet Take 1 tablet by mouth once daily. - nortriptyline (PAMELOR) 10 mg capsule Take one before bed for two weeks, then one every other night before bed for 7 doses and then one every 3rd night for 3 times and then stop. - rOPINIRole (REQUIP) 4 mg tablet Take 1 tablet by mouth daily at bedtime. - pravastatin (PRAVACHOL) 20 mg tablet Take 1 tablet by mouth daily at bedtime. - lisinopril (ZESTRIL) 10 mg tablet Take 1 tablet by mouth once daily. - Magnesium 250 mg tab Take 1 tablet by mouth once daily. - cholecalciferol, vitamin D3, (VITAMIN D3 ORAL) Take by mouth. - aspirin, enteric coated (ADULT LOW DOSE ASPIRIN) 81 mg EC tablet Take 1 tablet by mouth once daily. - calcium carbonate(CALTRATE 600 600 MG (1,500 MG) TAB) Problem List As Of Date 12/06/2024 Noted Resolved Osteopenia, senile [M85.80] 07/02/2005 Bilateral leg edema [R60.0] 07/02/2005 Family history of malignant neoplasm of gastroi*07/02/2005 03/27/2016 Insomnia, unspecified [G47.00] 07/02/2005 Actinic Keratoses: Premalignant AK's [L57.0] 03/27/2006 Other chronic dermatitis due to solar radiation*03/27/2006 SOLAR LENGINES////DYSCHROM IA OTHER [L81.9] 03/27/2006 03/22/2013 XEROSIS////SEBACEOUS GLAND DIS NEC [L73.8] 03/27/2006 03/22/2013 Other seborrheic keratosis [L82.1] 06/23/2006 Routine general medical examination at [facility]*08/24/2008 07/29/2011 Class: Chronic Routine gynecological examination [Z01.419] 08/24/2008 07/29/2011 Class: Chronic Restless leg syndrome [G25.81] Hand joint stiff [M25.649] 02/11/2012 Lumbar disc herniation [M51.26] 09/15/2012 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 [M43.16]09/15/2012 Hypokalemia [E87.6] 10/20/2012 Spondylolisthesis at L5-S1 level [M43.17] 10/20/2012 Solar lentigo [L81.4] 03/22/2013 Xerosis cutis [L85.3] 03/22/2013 Personal history of other malignant neoplasm of*03/22/2013 Other psoriasis [L40.8] 04/16/2013 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] 04/10/2013 Mixed hyperlipidemia [E78.2] 10/13/2014 Routine gynecological examination [Z01.419] 10/13/2014 03/27/2016 Colon cancer screening [Z12.11] 10/13/2014 03/27/2016 Well adult exam [Z00.00] 10/13/2014 03/27/2016 Essential hypertension with goal blood pressure*08/14/2015 Encounter for screening mammogram for breast ca*02/21/2016 03/27/2016 Non morbid obesity [E66.9] 03/29/2016 Vitamin D deficiency [E55.9] 08/24/2016 Medicare annual wellness visit, subsequent [Z00*03/12/2017 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 18 Multiple thyroid nodules [E04.2] 09/15/2017 Sensorineural hearing loss, asymm (more content not included)... Normal [facility] XR HIP 3V PELV+ AP/LAT RTon 12-06-2024 XR HIP 3V PELV+ AP/LAT RT * * *Final Report* * * DATE OF EXAM: Dec 06 2024 2:45PM WOX 5352 - XR HIP 3V PELV+ AP/LAT RT / PROCEDURE REASON: Right hip pain * * * * Physician Interpretation * * * * Pelvis and right hip HISTORY: Indication: Right hip pain TECHNIQUE: Images: XR HIP 3V PELV+ AP/LAT RT Comparison: None. RESULT: Findings: Extensive surgical hardware in the lower lumbar spine Pelvis: No fractures or dislocations are seen. Moderate narrowing of both hip joints. Right hip: No fractures or dislocations are seen. Large amount of spurring around the RIGHT hip joint. IMPRESSION: Marked degenerative changes. No acute pathology identified Ring Facer: DARRYL Transcribe Date/Time: Dec 06 2024 2:51P Dictated by : TURNER MA DO This examination was interpreted and the report reviewed and electronically signed by: TURNER MA DO on Dec 06 2024 2:52PM EST [id number] CN Normal [facility] US CAROTID [facility]IES [facility] 10-08-2024 US [facility]OTID [facility]ERIES [facility] Non-Invasive Vascular Laboratory [facility] Carotid Duplex Bilateral/Complete Date of service/time: 10/08/2024 1:27:09 PM Name: MRS. SPENSER PUTNAM Date of : 1940 Age: 83 years Gender: F Clinical Indication Pulsatile mass in carotid or subclavian. TECHNIQUE -------- A carotid duplex ultrasound examination was performed, including grayscale imaging and color Doppler and spectral Doppler examination of the below mentioned arteries. FINDINGS -------- RIGHT SIDE Common carotid artery: Origin: PSV: 105 cm/s. EDV: 13 cm/s. Proximal: PSV: 102 cm/s. EDV: 15 cm/s. Mid: PSV: 85 cm/s. EDV: 16 cm/s. Distal: PSV: 67 cm/s. EDV: 12 cm/s. Mild heterogeneous plaque at distal. Internal carotid artery: Origin: PSV: 69 cm/s. EDV: 13 cm/s. Proximal: PSV: 113 cm/s. EDV: 25 cm/s. Mid: PSV: 90 cm/s. EDV: 19 cm/s. Distal: PSV: 86 cm/s. EDV: 23 cm/s. Moderate heterogeneous plaque from proximal to mid. ICA/CCA Ratio: 1.7 External carotid artery: Proximal: PSV: 102 cm/s. EDV: 8 cm/s. Subclavian artery: Proximal: PSV: 159 cm/s. EDV: 0 cm/s. Innominate artery: PSV: 48 cm/s. EDV: 9 cm/s. Vertebral artery: PSV: 55 cm/s. EDV: 11 cm/s. LEFT SIDE Common carotid artery: Proximal: PSV: 106 cm/s. EDV: 13 cm/s. Mid: PSV: 81 cm/s. EDV: 17 cm/s. Distal: PSV: 62 cm/s. EDV: 14 cm/s. Internal carotid artery: Origin: PSV: 48 cm/s. EDV: 12 cm/s. Proximal: PSV: 66 cm/s. EDV: 19 cm/s. Mid: PSV: 65 cm/s. EDV: 17 cm/s. Distal: PSV: 97 cm/s. EDV: 25 cm/s. Mild heterogeneous shadowing plaque at origin. ICA/CCA Ratio: 1.1 External carotid artery: Proximal: PSV: 96 cm/s. EDV: 0 cm/s. Mild heterogeneous plaque at origin. Subclavian artery: Proximal: PSV: 112 cm/s. EDV: 0 cm/s. Vertebral artery: PSV: 60 cm/s. EDV: 15 cm/s. IMPRESSION Please note: the new carotid interpretation criteria are used as recommended by [employer]. RIGHT SIDE Common carotid artery: Patent. Internal carotid artery: <50% stenosis consistent with mild carotid artery disease. External carotid artery: Patent. Vertebral artery: Patent and antegrade flow noted. Innominate artery: Patent. Subclavian artery: Patent. LEFT SIDE Common carotid artery: Patent. Internal carotid artery: <50% stenosis consistent with mild carotid artery disease. External carotid artery: Patent. Vertebral artery: Patent and antegrade flow noted. Subclavian artery: Patent. Technologist: Haydee Greer T Ordering physician: JUAN SPANN Interpreting physician: Fazal Del Angel MD, RPVI Final [facility] [employer] [facility] Image : [id number] DynamicsSISUID See Link below for Image Normal [facility] US THYROID/PARATHYROIDon US THYROID/PARATHYROID * * *Final Report * * * DATE OF EXAM: Oct 08 2024 2:24PM [facility] 1048 - US THYROID/PARATHYROID / PROCEDURE REASON: Multiple thyroid nodules * * * * Physician Interpretation * * * * EXAMINATION: THYROID ULTRASOUND CLINICAL HISTORY: Multiple thyroid nodules TECHNIQUE: Sonography and Doppler imaging of the thyroid was performed. Images were obtained and stored in a permanent archive. MQ: UST_1 COMPARISON: 09/29/2023. RESULT: Right Lobe: 4.6 cm x 1.4 cm x 1.7 cm; heterogeneous echogenicity, expected vascular flow. Left Lobe: 4.0 cm x 1.2 cm x 1.8 cm; heterogeneous echogenicity, expected vascular flow. Isthmus: 0.2 cm The most suspicious thyroid nodule(s) (up to four) as below: NODULE 1: Location: Left upper pole Size: 0.8 x 0.5 x 0.6 cm Characteristics: Composition: Solid or almost completely solid, 2 points Echogenicity: Hypoechoic, 2 points Shape: Cpjdt-pnyh-rjei, 0 points Margin: Smooth, 0 points Echogenic foci (add points for all that apply): Possible punctate echogenic foci, 0 points or 3 points Internal vascularity: absent Interval growth: Stable TI-RADS Category: TR5 ACR Recommendation: TI-RADS 5 nodule. Follow up imaging is advised annually for 5 years. IMPRESSION: Thyroid nodule(s) is/are present. Surveillance imaging is recommended for one or more nodules as detailed in the synoptic report. TI-RADS Category: TR5 ACR Recommendation: TI-RADS 5 nodule. Follow up imaging is advised annually for 5 years. ACR recommendations are strictly based on the size and imaging appearance at the time of the exam and do not consider stability or previous biopsy results. Ring Facer: DARRYL Transcribe Date/Time: Oct 12 2024 7:29P Dictated by : OLIVIA ESCAMILLA MD This examination was interpreted and the report reviewed and electronically signed by: OLIVIA ESCAMILLA MD on Oct 12 2024 7:31PM EST [id number] CN Normal [facility] Urinalysis complete panel (U )on 09-30-2024 Bacteria LM.HPF (Urine sed) [#/Area] Negative Normal Negative [facility] Comment on above: Order Comment: Speci men Type: URINE SPECIMENOrdering Facility: [facility] Address: [address] [place] [address] Performed By: #### 2 4356-8 ####[facility] [id number] [place] [address] [place] Bilirubin Ql (U) Negative Normal Negative [facility] Comment on above: Order Comment: Speci men Type: URINE SPECIMENOrdering Facility: [facility] Address: [address] [place] [address] Performed By: #### 2 4356-8 ####[facility] LABIA [id number] [place] [address] [place] Clarity (Unsp spec) Clear Normal Clear [facility] Comment on above: Order Comment: Speci men Type: URINE SPECIMENOrdering Facility: [facility] Address: [address] [place] [address] Performed By: #### 2 4356-8 ####[facility] LABCLIA [id number] [place] [address] [place] Color (U) Yellow Normal Yellow [facility] Comment on above: Order Comment: Speci men Type: URINE SPECIMENOrdering Facility: [facility] Address: [address] [place] [address] Performed By: #### 2 4356-8 ####[facility] LABCLIA [id number] [place] [address] [place] Epithelial cells LM.HPF (Urine sed) [#/Area] None Seen Normal [facility] Comment on above: Order Comment: Speci men Type: URINE SPECIMENOrdering Facility: [facility] Address: [address] [place] [address] Performed By: #### 2 4356-8 ####[facility] LABCLIA [id number] [place] [address] [place] Glucose Test strip (U) [Mass/Vol] Negative Normal Negative [facility] Comment on above: Order Comment: Speci men Type: URINE SPECIMENOrdering Facility: [facility] Address: [address] [place] [address] Performed By: #### 2 4356-8 ####[facility] LABCLIA [id number] [place] [id number] [place] Hemoglobin Ql (U) Negative Normal Negative [facility] Comment on above: Order Comment: Speci men Type: URINE SPECIMENOrdering Facility: [facility] Address: [address] [place] [address] Performed By: #### 2 4356-8 ####[facility] LABCLIA [id number] [facility] [address], [facility] [place] Hyaline casts (Urine sed) [#/Area] 0 /[LPF] Normal 0 /LPF [facility] Comment on above: Order Comment: Speci men Type: URINE SPECIMENOrdering Facility: [facility] Address: [address] [place] [address] Performed By: #### 2 4356-8 ####[facility] LABCLIA [id number] [address] [place] [address] [place] Ketones Ql (U) Negative Normal Negative [facility] Comment on above: Order Comment: Speci men Type: URINE SPECIMENOrdering Facility: [facility] Address: [address] [place] [address] Performed By: #### 2 4356-8 ####[facility] LABCLIA [id number] [address], [place] [address] [place] Leukocyte esterase Test strip Ql (U) Negative Normal Negative [facility] Comment on above: Order Comment: Speci men Type: URINE SPECIMENOrdering Facility: [facility] Address: [address] [place] [address] Performed By: #### 2 4356-8 ####[facility] LABCLIA [id number] [address], [facility]95 [place] Nitrite Ql (U) Negative Normal Negative [facility] Comment on above: Order Comment: Speci men Type: URINE SPECIMENOrdering Facility: [facility] Address: [address] [place] [address] Performed By: #### 2 4356-8 ####[facility] LABCLIA [id number] [address], [facility]95 [place] pH (U) 6.5 [pH] Normal 5.0-8.0 [facility] Comment on above: Order Comment: Speci men Type: URINE SPECIMENOrdering Facility: [facility] Address: [address] [place] [address] Performed By: #### 2 4356-8 ####[facility] LABCLIA [id number] [place] [address] [place] Protein (U) [Mass/Vol] Negative Normal Negative [facility] Comment on above: Order Comment: Speci men Type: URINE SPECIMENOrdering Facility: [facility] Address: [address] [place] [address] Performed By: #### 2 4356-8 ####[facility] LABIA [id number] [place] [address] [place] RBC LM.HPF (Urine sed) [#/Area] 0-2 /HPF Normal 0-2 /HPF [facility] Comment on above: Order Comment: Speci men Type: URINE SPECIMENOrdering Facility: [facility] Address: [address] [place] [address] Performed By: #### 2 4356-8 ####[facility] LABIA [id number] [place] [address] [place] Specific gravity (U) [Rel density] 1.009 Normal 1.005-1.030 [facility] Comment on above: Order Comment: Speci men Type: URINE SPECIMENOrdering Facility: [facility] Address: [address] [place] [address] Performed By: #### 2 4356-8 ####[facility] LABIA [id number] [place] [address] [place] Urobilinogen Ql (U) 0.2 EU/dL Normal 0.2-1.0 EU/dL Cl [facility] Comment on above: Order Comment: Speci men Type: URINE SPECIMENOrdering Facility: [facility] Address: [address] [place] [address] Performed By: #### 2 4356-8 ####[facility] LABIA [id number] [place] [address] [place] WBC LM.HPF (Urine sed) [#/Area] 0-5 /HPF Normal 0-5 /HPF [facility] Comment on above: Order Comment: Speci men Type: URINE SPECIMENOrdering Facility: [facility] Address: [address] [place] [address] Performed By: #### 2 4356-8 ####[facility] LABCLIA [id number] [place] [address] [place] 25(OH)D3 [facility] 25-hydroxyvitamin D3 [Mass/Vol] 40.8 ng/mL Normal 31.0-80.0 [facility] Comment on above: Order Comment: Speci men Type: BLOOD SPECIMEN [facility] Address: [address] [place] [address] Result Comment: Clas sification of 25 [place] Vitamin D status: Deficiency/Insufficiency: < or = 30 ng/ml. Sufficiency/Optimal Levels: 31-80 ng/mL Toxicity: > 100 ng/mL. Test performed by chemiluminescent immunoassay. Performed By: #### 1 989-3 #### [facility] LAB CLIA [id number] [address] [place] [address] [place] CBC W Auto Differential pane l (Bld)on 09-17-2024 Basophils (Bld) [#/Vol] 0.03 10*3/uL [facility] Basophils/100 WBC (Bld) 0.3 % C [facility] Differential cell count method Nom (Bld) Auto [facility] Eosinophils (Bld) [#/Vol] 0.08 10*3/uL [facility] Eosinophils/100 WBC (Bld) 0.9 % [facility] Erythrocyte distribution width (RBC) [Ratio] 13.4 % 11.5 - 15.0 % [facility] Hematocrit (Bld) [Volume fraction] 37.3 % 36.0 - 46.0 % [facility] Hemoglobin (Bld) [Mass/Vol] 11.9 g/dL 11.5 - 15.5 g/dL [facility] Immature granulocytes (Bld) [#/Vol] 0.05 10*3/uL [facility] Immature granulocytes/100 WBC (Bld) 0.5 % [facility] Lymphocytes (Bld) [#/Vol] 2.24 10*3/uL [facility] Lymphocytes/100 WBC (Bld) 24.2 % [facility] MCH (RBC) [Entitic mass] 29.4 pg 26.0 - 34.0 pg [facility] MCHC (RBC) [Mass/Vol] 31.9 g/dL 30.5 - 36.0 g/dL [facility] MCV (RBC) [Entitic vol] 92.1 fL 80.0 - 100.0 fL [facility] Monocytes (Bld) [#/Vol] 0.75 10*3/uL [facility] Monocytes/100 WBC (Bld) 8.1 % [facility] Neutrophils (Bld) [#/Vol] 6.11 10*3/uL [facility] Neutrophils/100 WBC (Bld) 66 % [facility] Nucleated RBC (Bld) [#/Vol] [facility] Nucleated RBC/100 WBC (Bld) [Ratio] 0 % /100 WBC [facility] Platelet mean volume (Bld) [Entitic vol] 9.6 fL 9.0 - 12.7 fL [facility] Platelets (Bld) [#/Vol] 293 10*3/uL [facility] RBC (Bld) [#/Vol] 4.05 10*6/uL 3.90 - 5.2 0 m/uL [facility] WBC (Bld) [#/Vol] 9.26 10*3/uL [facility] Basophils (Bld) [#/Vol] 0.03 10*3/uL Normal <0.11 [facility] Comment on above: Order Comment: Speci men Type: BLOOD SPECIMENOrdering Facility: [facility] Address: [address] [place] [address] Performed By: #### 5 7021-8 ####[facility] LABCLIA [id number] [address] [place] Basophils/100 WBC (Bld) 0.3 % Normal C [facility] Comment on above: Order Comment: Speci men Type: BLOOD SPECIMENOrdering Facility: [facility] Address: [address] [place] [address] Performed By: #### 5 7021-8 ####[facility] LABCLIA [id number] [address], [place] [address] [place] Differential cell count method Nom (Bld) Auto Normal [facility] Comment on above: Order Comment: Speci men Type: BLOOD SPECIMENOrdering Facility: [facility] Address: [address] [place] [address] Performed By: #### 5 7021-8 ####[facility] LABCLIA [id number] [place] [address] [place] Eosinophils (Bld) [#/Vol] 0.08 10*3/uL Normal <0.46 [facility] Comment on above: Order Comment: Speci men Type: BLOOD SPECIMENOrdering Facility: [facility] Address: [address] [place] [address] Performed By: #### 5 7021-8 ####[facility] LABCLIA [id number] [place] [address] [place] Eosinophils/100 WBC (Bld) 0.9 % Normal [facility] Comment on above: Order Comment: Speci men Type: BLOOD SPECIMENOrdering Facility: [facility] Address: [address] [place] [address] Performed By: #### 5 7021-8 ####[facility] LABCLIA [id number] [place] [address] [place] Erythrocyte distribution width (RBC) [Ratio] 13.4 % Normal 11.5-15.0 [facility] Comment on above: Order Comment: Speci men Type: BLOOD SPECIMENOrdering Facility: [facility] Address: [address] [place] [address] Performed By: #### 5 7021-8 ####[facility] LABCLIA [id number] [place] [id number] [place] Hematocrit (Bld) [Volume fraction] 37.3 % Normal 36.0-46.0 [facility] Comment on above: Order Comment: Speci men Type: BLOOD SPECIMENOrdering Facility: [facility] Address: [address] [place] [address] Performed By: #### 5 7021-8 ####[facility] LABCLIA [id number] [address] [address] [place] Hemoglobin (Bld) [Mass/Vol] 11.9 g/dL Normal 11.5-15.5 [facility] Comment on above: Order Comment: Speci men Type: BLOOD SPECIMENOrdering Facility: [facility] Address: [address] [place] [address] Performed By: #### 5 7021-8 ####[facility] LABCLIA [id number] [place] [address] [place] Immature granulocytes (Bld) [#/Vol] 0.05 10*3/uL Normal <0.10 [facility] Comment on above: Order Comment: Speci men Type: BLOOD SPECIMENOrdering Facility: [facility] Address: [address] [place] [address] Performed By: #### 5 7021-8 ####[facility] LABCLIA [id number] [place] [address] [place] Immature granulocytes/100 WBC (Bld) 0.5 % Normal [facility] Comment on above: Order Comment: Speci men Type: BLOOD SPECIMENOrdering Facility: [facility] Address: [address] [place] [address] Performed By: #### 5 7021-8 ####[facility] LABCLIA [id number] [place] [id number] [place] Lymphocytes (Bld) [#/Vol] 2.24 10*3/uL Normal 1.00-4.00 [facility] Comment on above: Order Comment: Speci men Type: BLOOD SPECIMENOrdering Facility: [facility] Address: [address] [place] [address] Performed By: #### 5 7021-8 ####[facility] LABCLIA [id number] [place] [address] [place] Lymphocytes/100 WBC (Bld) 24.2 % Normal [facility] Comment on above: Order Comment: Speci men Type: BLOOD SPECIMENOrdering Facility: [facility] Address: [address] [place] [address] Performed By: #### 5 7021-8 ####[facility] LABIA [id number] [place] [address] [place] MCH (RBC) [Entitic mass] 29.4 pg Normal 26.0-34.0 [facility] Comment on above: Order Comment: Speci men Type: BLOOD SPECIMENOrdering Facility: [facility] Address: [address] [place] [address] Performed By: #### 5 7021-8 ####[facility] LABIA [id number] [place] [address] [place] MCHC (RBC) [Mass/Vol] 31.9 g/dL Normal 30.5-36.0 [facility] Comment on above: Order Comment: Speci men Type: BLOOD SPECIMENOrdering Facility: [facility] Address: [address] [place] [address] Performed By: #### 5 7021-8 ####[facility] LABIA [id number] [place] [address] [place] MCV (RBC) [Entitic vol] 92.1 fL Normal 80.0-100.0 [facility] Comment on above: Order Comment: Speci men Type: BLOOD SPECIMENOrdering Facility: [facility] Address: [address] [place] [address] Performed By: #### 5 7021-8 ####[facility] LABIA [id number] [place] [address] [place] Monocytes (Bld) [#/Vol] 0.75 10*3/uL Normal <0.87 [facility] Comment on above: Order Comment: Speci men Type: BLOOD SPECIMENOrdering Facility: [facility] Address: [address] [place] [address] Performed By: #### 5 7021-8 ####[facility] LABCLIA [id number] [place] [address] [place] Monocytes/100 WBC (Bld) 8.1 % Normal [facility] Comment on above: Order Comment: Speci men Type: BLOOD SPECIMENOrdering Facility: [facility] Address: [address] [place] [address] Performed By: #### 5 7021-8 ####[facility] LABCLIA [id number] [place] [address] [place] Neutrophils (Bld) [#/Vol] 6.11 10*3/uL Normal 1.45-7.50 [facility] Comment on above: Order Comment: Speci men Type: BLOOD SPECIMENOrdering Facility: [facility] Address: [address] [place] [address] Performed By: #### 5 7021-8 ####[facility] LABCLIA [id number] [place] [address] [place] Neutrophils/100 WBC (Bld) 66.0 % Normal [facility] Comment on above: Order Comment: Speci men Type: BLOOD SPECIMENOrdering Facility: [facility] Address: [address] [place] [address] Performed By: #### 5 7021-8 ####[facility] LABCLIA [id number] [place] [address] [place] Nucleated RBC (Bld) [#/Vol] 10*3/uL Normal <0.01 [facility] Comment on above: Order Comment: Speci men Type: BLOOD SPECIMENOrdering Facility: [facility] Address: [address] [place], [place] [address] Performed By: #### 5 7021-8 ####[facility] LABCLIA [id number] [address], [place] [address] [place] Nucleated RBC/100 WBC (Bld) [Ratio] 0.0 /100 WBC Normal [facility] Comment on above: Order Comment: Speci men Type: BLOOD SPECIMENOrdering Facility: [facility] Address: [address] [place] [address] Performed By: #### 5 7021-8 ####[facility] LABCLIA [id number] [address], [facility]95 [place] Platelet mean volume (Bld) [Entitic vol] 9.6 fL Normal 9.0-12.7 [facility] Comment on above: Order Comment: Speci men Type: BLOOD SPECIMENOrdering Facility: [facility] Address: [address] [place] [address] Performed By: #### 5 7021-8 ####[facility] LABCLIA [id number] [address], [facility]95 [place] Platelets (Bld) [#/Vol] 293 10*3/uL Normal 150-400 [facility] Comment on above: Order Comment: Speci men Type: BLOOD SPECIMENOrdering Facility: [facility] Address: [address] [place] [address] Performed By: #### 5 7021-8 ####[facility] LABCLIA [id number] [facility] [address] [place] [address] [place] RBC (Bld) [#/Vol] 4.05 10*6/uL Normal 3.90-5.20 [facility] Comment on above: Order Comment: Speci men Type: BLOOD SPECIMENOrdering Facility: [facility] Address: [address] [place] [address] Performed By: #### 5 7021-8 ####[facility] LABCLIA [id number] [place] [address] [place] WBC (Bld) [#/Vol] 9.26 10*3/uL Normal 3.70-11.00 [facility] Comment on above: Order Comment: Speci men Type: BLOOD SPECIMENOrdering Facility: [facility] Address: [address] [place] [address] Performed By: #### 5 7021-8 ####[facility] LABCLIA [id number] [facility] [address] [place] CNOVon 09-17-2024 CNOV Office Visit (FAMPWS) SPENSER PUTNAM ([id number]) 1940 F Date Time Provider Department 09/17/24 8:40 [facility] visit today, we recorded the following information about you: Pulse Respiration Blood pressure Weight 82/minute 12/minute 116/72 63.5 kg Height 1.53 m Juan Spann MD 09/17/2024 12:52 PM Signed Spenser Putnam is a 83 year old female here for a Medicare wellness visit. Medicare Health Risk Assessment General Health Good Exercise: Minutes/Day 10 min Exercise: Days/Week 2 days Alcohol: Daily Use 4 or more times a week Alcohol: Drinks/Day 3 or 4 Alcohol: 6 or more drinks never Feel off balance Decline Concerns: Teeth/Dentures No Concerns: Sexual function No Troubled by feelings Decline Frequency: Eating healthy diet More than half the days ADLs requiring help Dressing Safety precautions in home/vehicle Yes Smoke, vape, chews tobacco No Difficulty hearing Yes Difficulty seeing Yes Current Providers Specialists: I have reviewed specialist-related care of the patient in the medical record. Current care team: Patient Care Team: Juan Spann MD as PCP - General (Family Medicine) Sujatha Saldana APRN.[employer] as Systems Integration Engineer (Family Medicine) Destini Lay PA-C as Systems Integration Engineer (Family Medicine) Medical/Family history review Reviewed and updated problem list, medical/surgical/fam mary grace/social history, medications, and allergies. Opioid use review Opioid Medications (last 90 days) No data to display Anxiety/Depression screening PHQ-9 Score: 11 (Moderate Depression) EVI-7 Score: 7 (Mild Anxiety) Recommendation: no further intervention at this time Cognitive screening Mini Cog Score: 3 Cognitive screening reviewed and No further action needed (score 3-5). Functional Observation Was the patient's Timed Up AND Go test unsteady or >= 12 seconds? No Advance Care Planning Surrogate decision maker and/or advance care plan documented Measurements BP 116/72 Pulse 82 Resp 12 Ht 153 cm (5' 0.24) Wt 63.5 kg (140 lb) SpO2 98% BMI 27.13 kg/m? Vision Screening: Follows with optometry/ophthalmol ogy Assessment/Plan Medicare annual wellness visit, subsequent (Z00.00) - Counseled on healthy diet and regular exercise - Fall avoidance information provided - Personalized prevention plan provided See below Chief Complaint Patient presents with: Medicare Wellness Exam HPI Spenser Putnam is a 83 year old female who presents here today for Medicare Annual Visit. Patient with hx HTN, hyperlipidemia, RLS, insomnia, vit b12 def, OA Spenser reports a history of chronic back pain for which she had a spinal stimulator implanted in June. She notes that prior to the implantation, she was receiving injections that were ineffective. Since the implantation, she has been charging the stimulator daily, although she was advised to do so every other day. She denies any follow-up with a provider for the stimulator but mentions that she was instructed to call if any issues arise. She denies current use of pregabalin and reports no anxiety symptoms related to the stimulator. She does report experiencing diarrhea, which she attributes to the stimulator's effect on bowel function. she has been doing well with pain control with since having the stimulator. She denies recent fevers, frequent headaches, sudden changes in hearing or vision, issues with her nose or throat, lumps or swelling in her neck, wheezing, dyspnea, hemoptysis, chest pain, palpitations, or leg swelling. She also denies frequent nausea, emesis, heartburn, hematuria, dysuria, or increased urinary frequency. She does report easy bruising, which she attributes to minor trauma. She denies changes in tolerance to heat or cold, increased thirst, syncope, seizures, or tremors. She notes feeling slower and unsteady on uneven ground, which she attributes to a period of walking bent over following her surgery. Past medical history, appointments, medications, allergies reviewed. 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 Normal [facility] Comprehensive metabolic 2000 panelon 09-17-2024 Albumin [Mass/Vol] 3.9 g/dL Normal 3.9-4.9 [facility] Comment on above: Order Comment: Speci men Type: URINE SPECIMEN [facility] Address: [address] [place] [address] Performed By: #### 2 4356-8 #### [facility] CLIA [id number] [address] [place] [address] [place] ALP [Catalytic activity/Vol] 110 U/L Normal 34-123 [facility] Comment on above: Order Comment: Speci men Type: URINE SPECIMEN [facility] Address: [address] [place] [address] Performed By: #### 2 4356-8 #### [facility] CLIA [id number] [address] [place] [address] [place] ALT [Catalytic activity/Vol] 11 U/L Normal 7-38 [facility] Comment on above: Order Comment: Speci men Type: URINE SPECIMEN [facility] Address: [address] [place] [address] Performed By: #### 2 4356-8 #### [facility] CLIA [id number] [address] [place] [address] [place] Anion gap [Moles/Vol] 11 mmol/L Normal 8-15 [facility] Comment on above: Order Comment: Speci men Type: URINE SPECIMEN [facility] Address: [address] [place] [address] Performed By: #### 2 4356-8 #### [facility] CLIA [id number] [address] [place] [address] [place] AST [Catalytic activity/Vol] 17 U/L Normal 13-35 [facility] Comment on above: Order Comment: Speci men Type: URINE SPECIMEN [facility] Address: [address] [place] [address] Performed By: #### 2 4356-8 #### [facility] CLIA [id number] [address] [place] [address] [place] Bilirubin [Mass/Vol] 0.3 mg/dL Normal 0.2-1.3 [facility] Comment on above: Order Comment: Speci men Type: URINE SPECIMEN [facility] Address: [address] [place] [address] Performed By: #### 2 4356-8 #### [facility] CLIA [id number] [address] [place] [address] [place] Calcium [Mass/Vol] 10.2 mg/dL Normal 8.5-10.2 [facility] Comment on above: Order Comment: Speci men Type: URINE SPECIMEN [facility] Address: [address] [place] [address] Performed By: #### 2 4356-8 #### [facility] CLIA [id number] [address] [place] [address] [place] Chloride [Moles/Vol] 101 mmol/L Normal 98-107 [facility] Comment on above: Order Comment: Speci men Type: URINE SPECIMEN [facility] Address: [address] [place] [address] Performed By: #### 2 4356-8 #### [facility] CLIA [id number] [address] [place] [address] [place] CO2 [Moles/Vol] 22 mmol/L Normal 22-30 [facility] Comment on above: Order Comment: Speci men Type: URINE SPECIMEN [facility] Address: [address] [place] [address] Performed By: #### 2 4356-8 #### [facility] CLIA [id number] [address] [place] [address] [place] Creatinine [Mass/Vol] 0.80 mg/dL Normal 0.58-0.96 [facility] Comment on above: Order Comment: Speci men Type: URINE SPECIMEN [facility] Address: [address] [place] [address] Performed By: #### 2 4356-8 #### [facility] CLIA [id number] [address] [place] [address] [place] Creatinine and Glomerular filtration rate.predicted panel (S/P/Bld) 73 mL/min/1.73m??? Normal >=60 [facility] Comment on above: Order Comment: Speci men Type: URINE SPECIMEN [facility] Address: [address] [place] [address] Result Comment: Cici mated Glomerular Filtration Rate (eGFR) is calculated using the 2020 CKD-EPI creatinine equation. This equation utilizes serum creatinine, sex, and age as parameters. The creatinine assay has traceable calibration to isotope dilution-mass spectrometry. Refer to KDIGO guidelines for clinical interpretation. In patients with unstable renal function, e.g. those with acute kidney injury, the eGFR may not accurately reflect actual GFR. Performed By: #### 2 4356-8 #### [facility] CLIA [id number] [address] [place] [address] [place] Glucose [Mass/Vol] 73 mg/dL Low 74-99 [facility] Comment on above: Order Comment: Speci men Type: URINE SPECIMEN [facility] Address: [address] [place] [address] Result Comment: The [place] Diabetes Association (ADA) provides guidance for cutoff values for fasting glucose and random glucose. The ADA defines fasting as no caloric intake for at least 8 hours. Fasting plasma glucose results between 100 to 125 mg/dL indicate increased risk for diabetes (prediabetes). Fasting plasma glucose results greater than or equal to 126 mg/dL meet the criteria for diagnosis of diabetes. In the absence of unequivocal hyperglycemia, results should be confirmed by repeat testing. In a patient with classic symptoms of hyperglycemia or hyperglycemic crisis, random plasma glucose results greater than or equal to 200 mg/dL meet the criteria for diagnosis of diabetes. Reference: Standards of Medical Care in Diabetes 2016, [place] Diabetes Association. Diabetes Care. 2016.39(Suppl 1). Performed By: #### 2 4356-8 #### [facility] CLIA [id number] [address] [place] [address] [place] Potassium [Moles/Vol] 3.9 mmol/L Normal 3.7-5.1 [facility] Comment on above: Order Comment: Speci men Type: URINE SPECIMEN [facility] Address: [address] [place] [address] Performed By: #### 2 4356-8 #### [facility] CLIA [id number] [address] [place] [address] [place] Protein [Mass/Vol] 7.4 g/dL Normal 6.3-8.0 [facility] Comment on above: Order Comment: Speci men Type: URINE SPECIMEN [facility] Address: [address] [place] [address] Performed By: #### 2 4356-8 #### [facility] CLIA [id number] [address] [place] [address] [place] Sodium [Moles/Vol] 134 mmol/L Low 136-144 [facility] Comment on above: Order Comment: Speci men Type: URINE SPECIMEN [facility] Address: [address] [place] [address] Performed By: #### 2 4356-8 #### [facility] CLIA [id number] [address] [place] [address] [place] Urea nitrogen [Mass/Vol] 11 mg/dL Normal 7-21 [facility] Comment on above: Order Comment: Speci men Type: URINE SPECIMEN [facility] Address: [address] [place] [address] Performed By: #### 2 4356-8 #### [facility] CLIA [id number] [address] [place] [address] [place] Magnesium SerPl-mCncon 09-17 Magnesium [Mass/Vol] 1.7 mg/dL Normal 1.7-2.3 [facility] Comment on above: Order Comment: Speci men Type: URINE SPECIMEN [facility] Address: [address] [place] [address] Performed By: #### 2 4356-8 #### [facility] CLIA [id number] [address] [place] [address] [place] TSH SerPl-aCncon 09-17-2024 TSH Qn 2.700 m[IU]/L Normal 0.270-4.200 [facility] Comment on above: Order Comment: Speci men Type: URINE SPECIMEN [facility] Address: [address] [place] [address] Performed By: #### 2 4356-8 #### [facility] CLIA [id number] [address] [place] [address] [place] Vit B12 SerPl-mCncon 025 Cobalamin (Vitamin B12) [Mass/Vol] 589 pg/mL Normal 232-1245 [facility] Comment on above: Order Comment: Speci men Type: URINE SPECIMEN [facility] Address: [address] [place] [address] Performed By: #### 2 4356-8 #### [facility] CLIA [id number] [address] [place] [address] [place] FL FLUORO IMAGES NO CHARGEon 06-24-2024 FL FLUORO IMAGES NO CHARGE These images are not reportable by radiology and will not be interpreted by Radiologists. Normal [facility] XR tomography Unspecified sly dy regionon 06-24-2024 These images are not reportable by radiology and will not be interpreted by Radiologists. IMAGING Comprehensive metabolic 2000 panelon 06-18-2024 Albumin [Mass/Vol] 3.9 g/dL Normal 3.9-4.9 [facility] Comment on above: Order Comment: Speci men Type: URINE SPECIMEN [facility] Address: [address] [place] [address] Performed By: #### 2 4356-8 #### [facility] CLIA [id number] [address] [place] [address] [place] ALP [Catalytic activity/Vol] 107 U/L Normal 34-123 [facility] Comment on above: Order Comment: Speci men Type: URINE SPECIMEN [facility] Address: [address] [place] [address] Performed By: #### 2 4356-8 #### [facility] CLIA [id number] [address] [place] [address] [place] ALT [Catalytic activity/Vol] 7 U/L Normal 7-38 [facility] Comment on above: Order Comment: Speci men Type: URINE SPECIMEN [facility] Address: [address] [place] [address] Performed By: #### 2 4356-8 #### [facility] CLIA [id number] [address] [place] [address] [place] Anion gap [Moles/Vol] 7 mmol/L Low 8-15 [facility] Comment on above: Order Comment: Speci men Type: URINE SPECIMEN [facility] Address: [address] [place] [address] Performed By: #### 2 4356-8 #### [facility] CLIA [id number] [address] [place] [address] [place] AST [Catalytic activity/Vol] 13 U/L Normal 13-35 [facility] Comment on above: Order Comment: Speci men Type: URINE SPECIMEN [facility] Address: [address] [place] [address] Performed By: #### 2 4356-8 #### [facility] CLIA [id number] [address] [place] [address] [place] Bilirubin [Mass/Vol] 0.2 mg/dL Normal 0.2-1.3 [facility] Comment on above: Order Comment: Speci men Type: URINE SPECIMEN [facility] Address: [address] [place] [address] Performed By: #### 2 4356-8 #### [facility] CLIA [id number] [address] [place] [address] [place] Calcium [Mass/Vol] 9.8 mg/dL Normal 8.5-10.2 [facility] Comment on above: Order Comment: Speci men Type: URINE SPECIMEN [facility] Address: [address] [place] [address] Performed By: #### 2 4356-8 #### [facility] CLIA [id number] [address] [place] [address] [place] Chloride [Moles/Vol] 102 mmol/L Normal 98-107 [facility] Comment on above: Order Comment: Speci men Type: URINE SPECIMEN [facility] Address: [address] [place] [address] Performed By: #### 2 4356-8 #### [facility] CLIA [id number] [address] [place] [address] [place] CO2 [Moles/Vol] 25 mmol/L Normal 22-30 [facility] Comment on above: Order Comment: Speci men Type: URINE SPECIMEN Ordering Facility: [facility] Address: [address] [place] [address] Performed By: #### 2 4356-8 #### [facility] CLIA [id number] [address] [place] [address] [place] Creatinine [Mass/Vol] 0.85 mg/dL Normal 0.58-0.96 [facility] Comment on above: Order Comment: Speci men Type: URINE SPECIMEN Ordering Facility: [facility] Address: [address] [place] [address] Performed By: #### 2 4356-8 #### [facility] CLIA [id number] [address] [place] [address] [place] Creatinine and Glomerular filtration rate.predicted panel (S/P/Bld) 68 mL/min/1.73m??? Normal >=60 [facility] Comment on above: Order Comment: Speci men Type: URINE SPECIMEN Ordering Facility: [facility] Address: [address] [place] [address] Result Comment: Cici mated Glomerular Filtration Rate (eGFR) is calculated using the 2020 CKD-EPI creatinine equation. This equation utilizes serum creatinine, sex, and age as parameters. The creatinine assay has traceable calibration to isotope dilution-mass spectrometry. Refer to KDIGO guidelines for clinical interpretation. In patients with unstable renal function, e.g. those with acute kidney injury, the eGFR may not accurately reflect actual GFR. Performed By: #### 2 4356-8 #### [facility] CLIA [id number] [address] [place] [address] [place] Glucose [Mass/Vol] 119 mg/dL High 74-99 [facility] Comment on above: Order Comment: Speci men Type: URINE SPECIMEN Ordering Facility: [facility] Address: [address] [place] [address] Result Comment: The [place] Diabetes Association (ADA) provides guidance for cutoff values for fasting glucose and random glucose. The ADA defines fasting as no caloric intake for at least 8 hours. Fasting plasma glucose results between 100 to 125 mg/dL indicate increased risk for diabetes (prediabetes). Fasting plasma glucose results greater than or equal to 126 mg/dL meet the criteria for diagnosis of diabetes. In the absence of unequivocal hyperglycemia, results should be confirmed by repeat testing. In a patient with classic symptoms of hyperglycemia or hyperglycemic crisis, random plasma glucose results greater than or equal to 200 mg/dL meet the criteria for diagnosis of diabetes. Reference: Standards of Medical Care in Diabetes 2016, [place] Diabetes Association. Diabetes Care. 2016.39(Suppl 1). Performed By: #### 2 4356-8 #### [facility] CLIA [id number] [address] [place] [address] [place] Potassium [Moles/Vol] 3.7 mmol/L Normal 3.7-5.1 [facility] Comment on above: Order Comment: Speci men Type: URINE SPECIMEN Ordering Facility: [facility] Address: [address] [place] [address] Performed By: #### 2 4356-8 #### [facility] CLIA [id number] [address] [place] [address] [place] Protein [Mass/Vol] 6.8 g/dL Normal 6.3-8.0 [facility] Comment on above: Order Comment: Speci men Type: URINE SPECIMEN Ordering Facility: [facility] Address: [address] [place] [address] Performed By: #### 2 4356-8 #### [facility] CLIA [id number] [address] [place] [address] [place] Sodium [Moles/Vol] 134 mmol/L Low 136-144 [facility] Comment on above: Order Comment: Speci men Type: URINE SPECIMEN Ordering Facility: [facility] Address: [address] [place] [address] Performed By: #### 2 4356-8 #### [facility] CLIA [id number] [address] [place] [address] [place] Urea nitrogen [Mass/Vol] 16 mg/dL Normal 7-21 [facility] Comment on above: Order Comment: Speci men Type: URINE SPECIMEN Ordering Facility: [facility] Address: [address] [place] [address] [place] [address] Performed By: #### 2 4356-8 #### [facility] CLIA [id number] [address] [place] [address] [place] CNPNon 06-17-2024 CNPN Telephone (FAMWS) JERSEYSPENSER ([id number]) 1940 F Date Time Provider Department 06/17/24 JUAN SPANN During your visit today, we recorded the following information about you: Jonas Milan LPN 06/17/2024 9:29 AM Signed Pt's daughter calling advising that pt had pre-op labs done yesterday at [facility]. Had a BMP and CBC completed. Wanting to know if pt still needed to have lab work done that pcp/Destini ordered. Advised her that Dr Shannon had ordered a CMP d/t her potassium level was still scott when rechecked. He was covering for pcp and Destini. She advises that she will have pt complete these labs today. Jonas Milan LPN Allergies As of Date: 06/17/2024 Noted Allergy Reaction SULFA (SULFONAMIDE ANTIBIOTICS) 04/11/2005 7 - Swelling 10 - Anaphylaxis Comments: Tongue/ throat swelled PHENER[place]IN 03/18/2013 11 - Vomiting Comments: Vomiting HYDROCODONE-ACETAMIN OPHEN 12/30/2011 8 - GI Upset Comments: NAUSEA PROCARDIA (NIFEDIPINE) 06/26/2020 7 - Swelling Comments: legs Date Reviewed: 06/03/2024 Reviewed by: Juan Spann MD - Fully Assessed Reason for Visit: Question [3348] Prescriptions as of 06/17/2024 - rOPINIRole (REQUIP) 4 mg tablet Take 1 tablet by mouth daily at bedtime. - celecoxib (CELEBREX) 200 mg capsule Take 1 capsule by mouth once daily. - ALPRAZolam 0.5 mg dissolvable tablet BRING 2 TABLETS TO PROCEDURE LOCATION ON THE DAY OF PROCEDURE, TO BE ADMINISTERED BY STAFF - cephALEXin (KEFLEX) 500 mg capsule Take 1 capsule by mouth three times a day. Please start 1 day prior to your scheduled procedure in the morning, and complete the full 5 day course. - pravastatin (PRAVACHOL) 20 mg tablet Take 1 tablet by mouth daily at bedtime. - spironolactone (ALDACTONE) 50 mg tablet Take 1 tablet by mouth once daily. - nortriptyline (PAMELOR) 75 mg capsule Take 1 capsule by mouth daily at bedtime. - Magnesium 250 mg tab Take 1 tablet by mouth once daily. - lisinopril (ZESTRIL) 10 mg tablet Take 1 tablet by mouth once daily. - cholecalciferol, vitamin D3, (VITAMIN D3 ORAL) Take by mouth. - cyanocobalamin (VITAMIN B-12) 1,000 mcg tab Take 1 tablet by mouth once daily. - pregabalin (LYRICA) 50 mg capsule Take one pill twice daily - aspirin, enteric coated (ADULT LOW DOSE ASPIRIN) 81 mg EC tablet Take 1 tablet by mouth once daily. - calcium carbonate(CALTRATE 600 600 MG (1,500 MG) TAB) Problem List As Of Date 06/17/2024 Noted Resolved Osteopenia, senile [M85.80] 07/02/2005 Bilateral leg edema [R60.0] 07/02/2005 Family history of malignant neoplasm of gastroi*07/02/2005 03/27/2016 Insomnia, unspecified [G47.00] 07/02/2005 Actinic Keratoses: Premalignant AK's [L57.0] 03/27/2006 Other chronic dermatitis due to solar radiation*03/27/2006 SOLAR LENGINES////DYSCHROM IA OTHER [L81.9] 03/27/2006 03/22/2013 XEROSIS////SEBACEOUS GLAND DIS NEC [L73.8] 03/27/2006 03/22/2013 Other seborrheic keratosis [L82.1] 06/23/2006 Routine general medical examination at [facility]*08/24/2008 07/29/2011 Class: Chronic Routine gynecological examination [Z01.419] 08/24/2008 07/29/2011 Class: Chronic Restless leg syndrome [G25.81] Hand joint stiff [M25.649] 02/11/2012 Lumbar disc herniation [M51.26] 09/15/2012 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 [M43.16]09/15/2012 Hypokalemia [E87.6] 10/20/2012 Spondylolisthesis at L5-S1 level [M43.17] 10/20/2012 Solar lentigo [L81.4] 03/22/2013 Xerosis cutis [L85.3] 03/22/2013 Personal history of other malignant neoplasm of*03/22/2013 Other psoriasis [L40.8] 04/16/2013 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] 04/10/2013 Mixed hyperlipidemia [E78.2] 10/13/2014 Routine gynecological examination [Z01.419] 10/13/2014 03/27/2016 Colon cancer screening [Z12.11] 10/13/2014 03/27/2016 Well adult exam [Z00.00] 10/13/2014 03/27/2016 Essential hypertension with goal blood pressure*08/14/2015 Encounter for screening mammogram for breast ca*02/21/2016 03/27/2016 Non morbid obesity [E66.9] 03/29/2016 Vitamin D deficiency [E55.9] 08/24/2016 Medicare annual wellness visit, subsequent [Z00*03/12/2017 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 18 Multiple thyroid nodules [E04.2] 09/15/2017 Sensorineural hearing loss, asymmetrical [H90.3]10/08/2017 Lumbar stenosis [M48.061] Internal hemorrhoids [K64.8] Medication management [Z79.899] 09/22/2018 Raynaud's phenomenon without gangrene [I73.00] 06/07/2020 Carpal tunnel syndrome, left [G56.02] 08/17/2020 Valvular heart disease [I38] 10/20/2020 S/P lumbar fusion [Z98.1] 04/16/2021 05/28/2021 Advance directive discussed with patient [Z71.8*04/23/2021 Vertigo [R42] 12/03/2021 Living will on file at physician's office [Z78.*07/22/2022 Spinal stenosis of lumbar region [M48.061] 06/17/2023 Hyperuricemia [E79.0] 07/03/2023 Lumbar radiculopathy [M5 (more content not included)... Normal [facility] TRANSTHORACIC ECHO (TTE) COM PLETEon 06-17-2024 TRANSTHORACIC ECHO (TTE) COMPLETE [facility], [address] [place] [address], [address] [address] and TRANSTHORACIC ECHOCARDIOGRAM REPORT Patient Name: SPENSER MCCOYHIEUJOHNATHAN Reading Physician: [id number] Jude Barnett MD Study Date: 06/17/2024 Ordering Provider: [id number] NAOMI JAMIL MRN/PID: [id number] Fellow: Nurse: Date of /Age: 912/07/1940 Event Executive: Arabella Enrique RDCS years Gender assigned at F Additional Staff: : Height: 157.48 cm Admit Date: Weight: 63.96 kg Admission Status: Outpatient BSA / BMI: 1.65 m2 / 25.79 kg/m2 Blood Pressure: 122/75 mmHg Department Location: [facility] Study Type: TRANSTHORACIC ECHO (TTE) COMPLETE Diagnosis/ICD: Cardiac murmur, unspecified-R01.1 Indication: Systolic murmur CPT Code: Echo Complete w Full Doppler-[id number] Patient History: Pertinent History: Systolic murmur, HTN, HLD. Study Detail: The following Echo studies were performed: 2D, M-Mode, color flow and Doppler. PHYSICIAN INTERPRETATION: Left Ventricle: The left ventricular systolic function is normal, with a visually estimated ejection fraction of 60-65%. There are no regional left ventricular wall motion abnormalities. The left ventricular cavity size is normal. There is normal posterior left ventricular wall thickness. Spectral Doppler shows a Grade I (impaired relaxation pattern) of left ventricular diastolic filling with normal left atrial filling pressure. Left Atrium: The left atrial size is normal. Right Ventricle: The right ventricle is normal in size. There is normal right ventricular global systolic function. Right Atrium: The right atrium is normal in size. Aortic Valve: The aortic valve is trileaflet. There is mild aortic valve cusp calcification. There is mild aortic valve thickening. There is evidence of mildly elevated transaortic gradients consistent with sclerosis of the aortic valve. The aortic valve dimensionless index is 0.59. There is no evidence of aortic valve regurgitation. The peak instantaneous gradient of the aortic valve is 15 mmHg. The mean gradient of the aortic valve is 8 mmHg. Mitral Valve: The mitral valve is mildly thickened. There is moderate mitral annular calcification. There is trace mitral valve regurgitation. Tricuspid Valve: The tricuspid valve is structurally normal. There is mild tricuspid regurgitation. The Doppler estimated RVSP is slightly elevated at 31.6 mmHg. Pulmonic Valve: The pulmonic valve is structurally normal. There is physiologic pulmonic valve regurgitation. Pericardium: Trivial pericardial effusion. Aorta: The aortic root is normal. In comparison to the previous echocardiogram(s): There are no prior studies on this patient for comparison purposes. CONCLUSIONS: 1. The left ventricular systolic function is normal, with a visually estimated ejection fraction of 60-65%. 2. Spectral Doppler shows a Grade I (impaired relaxation pattern) of left ventricular diastolic filling with normal left atrial filling pressure. 3. There is normal right ventricular global systolic function. 4. There is moderate mitral annular calcification. 5. Slightly elevated right ventricular systolic pressure. 6. Aortic valve sclerosis. QUANTITATIVE DATA SUMMARY: 2D MEASUREMENTS: Normal Ranges: IVSd: 0.94 cm (0.6-1.1cm) LVPWd: 0.75 cm (0.6-1.1cm) LVIDd: 4.44 cm (3.9-5.9cm) LVIDs: 3.16 cm LV Mass Index: 73 g/m2 LVEDV Index: 51 ml/m2 LV % FS 28.8 % LEFT ATRIUM: Normal Ranges: LA Vol A4C: 35.5 ml (22+/-6mL/m2) LA Vol A2C: 48.5 ml LA Vol BP: 44.9 ml LA Vol Index A4C: 21.5 ml/m2 LA Vol Index A2C: 29.4 ml/m2 LA Vol Index BP: 27.2 ml/m2 LA Area A4C: 13.7 cm2 LA Area A2C: 17.3 cm2 LA Major Jerome A4C: 4.5 cm LA Major Jerome A2C: 5.3 cm LA Volume Index: 27.2 ml/m2 LA Vol A4C: 32.7 ml LA Vol A2C: 45.1 ml LA Vol Index BSA: 23.6 ml/m2 RIGHT ATRIUM: Normal Ranges: RA Vol A4C: 21.0 ml (8.3-19.5ml) RA Vol Index A4C: 12.7 ml/m2 RA Area A4C: 10.3 cm2 RA Major Jerome A4C: 4.3 cm M-MODE MEASUREMENTS: Normal Ranges: LAs: 3.71 cm (2.7-4.0cm) AORTA MEASUREMENTS: Normal Ranges: Ao Sinus, d: 2.70 cm (2.1-3.5cm) Ao STJ, d: 2.70 cm (1.7-3.4cm) Asc Ao, d: 3.40 cm (2.1-3.4cm) LV SYSTOLIC FUNCTION: Normal Ranges: EF-A4C View: 63 % (>=55%) EF-A2C View: 65 % EF-Biplane: 65 % EF-Visual: 63 % LV EF Reported: 63 % LV DIASTOLIC FUNCTION: Normal Ranges: MV Peak E: 0.77 m/s (0.7-1.2 m/s) MV Peak A: 0.95 m/s (0.42-0.7 m/s) E/A Ratio: 0.82 (1.0-2.2) MV e' 0.063 m/s (>8.0) MV lateral e' 0.06 m/s MV medial e' 0.07 m/s E/e' Ratio: 12.17 (<8.0) MV DT: 225 msec (150-240 msec) MITRAL VALVE: Normal Ranges: MV DT: 225 msec (150-240msec) AORTIC VALVE: Normal Ranges: AoV Vmax: 1.92 m/s (<=1.7m/s) AoV Peak P.8 mmHg (<20mmHg) AoV Mean P.2 mmHg (1.7-11.5mmHg) LVOT Max Quita: 1.10 m/s (<=1.1m/s) AoV VTI: 37.80 cm (18-25cm) LVOT VTI: 22.27 cm LVOT Tamela (more content not included)... Normal [facility] Basic metabolic 2000 panelon 06-16-2024 Anion gap [Moles/Vol] 12 mmol/L Normal 10-20 [facility] Comment on above: Performed By: #### 2 4321-2 #### MAKI Alfonso ([id number]) [facility] ([facility]) [address] [place] [address] Calcium [Mass/Vol] 9.2 mg/dL Normal 8.6-10.6 [facility] Comment on above: Performed By: #### 2 4321-2 #### MAKI CLEVELAND L ([id number]) [facility] ([facility]) [address] [place] [address] Chloride [Moles/Vol] 101 mmol/L Normal 98-107 [facility] Comment on above: Performed By: #### 2 4321-2 #### MAKI CLEVELAND L ([id number]) [facility] ([facility]) [address] [place] [address] CO2 [Moles/Vol] 26 mmol/L Normal 21-32 [facility] Comment on above: Performed By: #### 2 4321-2 #### MAKI CRENSHAWMOLAUREN L ([id number]) [facility] ([facility]) [address] [place] [address] Creatinine [Mass/Vol] 0.95 mg/dL Normal 0.50-1.05 [facility] Comment on above: Performed By: #### 2 4321-2 #### MAKI CLEVELAND L ([id number]) [facility] ([facility]) [address] [place] [address] Glomerular filtration rate/1.73 sq M.predicted 60 mL/min/1.73m*2 Low >60 [facility] Comment on above: Result Comment: Calc ulations of estimated GFR are performed using the 2020 CKD-EPI Study Refit equation without the race variable for the IDMS-Traceable creatinine methods. https://jasn.asnjournals.org/content//ASN.2020 322365 Performed By: #### 2 4321-2 #### MAKI Alfonso ([id number]) [facility] ([facility]) [address] [place] [address] Glucose [Mass/Vol] 82 mg/dL Normal 74-99 [facility] Comment on above: Performed By: #### 2 4321-2 #### MAKI Alfonso ([id number]) [facility] ([facility]) [address] [place] [address] Potassium [Moles/Vol] 4.0 mmol/L Normal 3.5-5.3 [facility] Comment on above: Performed By: #### 2 4321-2 #### MAKI Alfonso ([id number]) [facility] ([facility]) [address] [place] [address] Sodium [Moles/Vol] 135 mmol/L Low 136-145 [facility] Comment on above: Performed By: #### 2 4321-2 #### MAKI Alfonso ([id number]) [facility] ([facility]) [address] [place] [address] Urea nitrogen [Mass/Vol] 14 mg/dL Normal 6-23 [facility] Comment on above: Performed By: #### 2 4321-2 #### MAKI Alfonso ([id number]) [facility] ([facility]) [address] [place] [address] Blood type and Indirect anti body screen panel (Bld)on 06-16-2024 ABO group Nom (Bld) A Normal [facility] Comment on above: Performed By: #### 3 4532-2 #### MAKI Alfonso ([id number]) [facility] ([facility]) [address] [place] [address] Blood group antibody screen Ql Negative [facility] Comment on above: Result Comment: 2nd ABO test required. Order and Collect VERAB Performed By: #### 3 4532-2 #### MAKI Alfonso ([id number]) [facility] ([facility]) [address] [place], [place] [address] D Ag Ql (Bld) Positive Normal [facility] Comment on above: Performed By: #### 3 4532-2 #### MAKI Alfonso ([id number]) [facility] ([facility]) [address] [place] [address] CBC panel Auto (Bld)on 06-16 Erythrocyte distribution width (RBC) [Ratio] 12.5 % Normal 11.5-14.5 [facility] Comment on above: Performed By: #### 5 8410-2 #### MAKI Alfonso ([id number]) [facility] ([facility]) [address] [place] [address] Hematocrit (Bld) [Volume fraction] 35.6 % Low 36.0-46.0 [facility] Comment on above: Performed By: #### 5 8410-2 #### MAKI Alfonso ([id number]) [facility] ([facility]) [address] [place] [address] Hemoglobin (Bld) [Mass/Vol] 11.8 g/dL Low 12.0-16.0 [facility] Comment on above: Performed By: #### 5 8410-2 #### MAKI Alfonso ([id number]) [facility] ([facility]) [address] [place] [address] MCH (RBC) [Entitic mass] 30.3 pg Normal 26.0-34.0 [facility] Comment on above: Performed By: #### 5 8410-2 #### MAKI Alfonso ([id number]) [facility] ([facility]) [address] [place] [address] MCHC (RBC) [Mass/Vol] 33.1 g/dL Normal 32.0-36.0 [facility] Comment on above: Performed By: #### 5 8410-2 #### MAKI Alfonso ([id number]) [facility] ([facility]) [address] [place] [address] MCV (RBC) [Entitic vol] 91 fL Normal 80-100 [facility] Comment on above: Performed By: #### 5 8410-2 #### MAKI Alfonso ([id number]) [facility] ([facility]) [address] [place] [address] 229[address] Nucleated RBC/100 WBC (Bld) [Ratio] 0.0 /100 WBCs Normal 0.0-0.0 [facility] Comment on above: Performed By: #### 5 8410-2 #### MAKI Alfonso ([id number]) [facility] ([facility]) [address] [place] [address] Platelets (Bld) [#/Vol] 239 x10*3/uL Normal 150-450 [facility] Comment on above: Performed By: #### 5 8410-2 #### MAKI Alfonso ([id number]) [facility] ([facility]) [address] [place] [address] RBC (Bld) [#/Vol] 3.90 x10*6/uL Low 4.00-5.20 [facility] Comment on above: Performed By: #### 5 8410-2 #### MAKI Alfonso ([id number]) [facility] ([facility]) [address] [place] [address] WBC (Bld) [#/Vol] 6.7 x10*3/uL Normal 4.4-11.3 [facility] Comment on above: Performed By: #### 5 8410-2 #### MAKI Alfonso ([id number]) [facility] ([facility]) [address] [place] [address] ECG 12-LEADon 06-16-2024 ECG 12-LEAD Ventricular Rate 81 Atrial Rate 81 P-R Interval 162 QRS Duration 84 Q-T Interval 362 QTC Calculation(Bazett) 420 P Jerome 57 R Jerome 12 T Jerome 48 QRS Count 13 Q Onset 223 P Onset 142 P Offset 198 T Offset 404 QTC Fredericia 400 Diagnosis Normal sinus rhythm Low voltage QRS Borderline ECG No previous ECGs available Confirmed by Gerardo Escobar ([id number]) on 06/22/2024 8:13:57 PM Normal [facility] HbA1c (Bld) [Mass fraction]o n 06-16-2024 Average glucose Estimated from glycated hemoglobin (Bld) [Mass/Vol] 97 mg/dL Normal Not Established [facility] Comment on above: Order Comment: Diagn osis of Diabetes-Adults Non-Diabetic: < or = 5.6% Increased risk for developing diabetes: 5.7-6.4% Diagnostic of diabetes: > or = 6.5% Performed By: #### 4 548-4 #### MAKI Alfonso ([id number]) [facility] ([facility]) [address] [place] [address] Hemoglobin A1c/Hemoglobin.to terry 06-16-2024 HbA1c (Bld) [Mass fraction] 5.0 % Normal See comment [facility] Comment on above: Order Comment: Diagn osis of Diabetes-Adults Non-Diabetic: < or = 5.6% Increased risk for developing diabetes: 5.7-6.4% Diagnostic of diabetes: > or = 6.5% Performed By: #### 4 548-4 #### MAKI Alfonso ([id number]) [facility] ([facility]) [address] [place] [address] Staphylococcus aureus.methic illin resistant isolateon 06-16-2024 MRSA isol Org specific cx Ql (Nose) Test: Staphylococcus aureus/MRSA colonization, Culture Specimen Source: Nares/Axilla/Groin Specimen Type: Swab Specimen Date: 06/16/2024 154 Result Date: 06/18/2024919 Result Status: Final result Abnormal: No Resulting Lab: [facility] [address] [place] [address] CULTURE No Staphylococcus aureus isolated Normal [facility] Comment on above: Performed By: #### 5 2969-3 #### MAKI Alfonso ([id number]) [facility] ([facility]) [address] [place] [address] Basic metabolic 2000 panelon 06-07-2024 Anion gap [Moles/Vol] 9 mmol/L Normal 8-15 [facility] Comment on above: Order Comment: Speci men Type: BLOOD SPECIMENOrdering Facility: [facility] Address: [address] [place] [address] Performed By: #### 2 4321-2 ####[facility] [id number] [place] [address] [place] Calcium [Mass/Vol] 10.1 mg/dL Normal 8.5-10.2 [facility] Comment on above: Order Comment: Speci men Type: BLOOD SPECIMENOrdering Facility: [facility] Address: [address] [place] [address] Performed By: #### 2 4321-2 ####[facility] [id number] [place] [address] [place] Chloride [Moles/Vol] 104 mmol/L Normal 98-107 [facility] Comment on above: Order Comment: Speci men Type: BLOOD SPECIMENOrdering Facility: [facility] Address: [address] [place] [address] Performed By: #### 2 4321-2 ####[facility] MILLWNCLIA [id number] [place] [address] [place] CO2 [Moles/Vol] 22 mmol/L Normal 22-30 [facility] Comment on above: Order Comment: Speci men Type: BLOOD SPECIMENOrdering Facility: [facility] Address: [address] [place] [address] Performed By: #### 2 4321-2 ####[facility] JEREMIAH MILLTOWNCLIA [id number] [place] [address] [place] Creatinine [Mass/Vol] 1.00 mg/dL High 0.58-0.96 [facility] Comment on above: Order Comment: Eliana escobedo Type: BLOOD SPECIMENOrdering Facility: [facility] Address: [address] [place] [address] Performed By: #### 2 4321-2 ####[facility] [id number] [place] [address] [place] Creatinine and Glomerular filtration rate.predicted panel (S/P/Bld) 56 mL/min/1.73m??? Low >=60 [facility] Comment on above: Order Comment: Eliana escobedo Type: BLOOD SPECIMENOrdering Facility: [facility] Address: [address] [place] [address] Result Comment: Cici mated Glomerular Filtration Rate (eGFR) is calculated using the 2020 CKD-EPI creatinine equation. This equation utilizes serum creatinine, sex, and age as parameters. The creatinine assay has traceable calibration to isotope dilution-mass spectrometry. Refer to KDIGO guidelines for clinical interpretation. In patients with unstable renal function, e.g. those with acute kidney injury, the eGFR may not accurately reflect actual GFR. Performed By: #### 2 4321-2 ####[facility] [id number] [place] [address] [place] Glucose [Mass/Vol] 85 mg/dL Normal 74-99 [facility] Comment on above: Order Comment: Eliana escobedo Type: BLOOD SPECIMENOrdering Facility: [facility] Address: [address] [place] [address] Result Comment: The [place] Diabetes Association (ADA) provides guidance for cutoff values for fasting glucose and random glucose. The ADA defines fasting as no caloric intake for at least 8 hours. Fasting plasma glucose results between 100 to 125 mg/dL indicate increased risk for diabetes (prediabetes). Fasting plasma glucose results greater than or equal to 126 mg/dL meet the criteria for diagnosis of diabetes. In the absence of unequivocal hyperglycemia, results should be confirmed by repeat testing. In a patient with classic symptoms of hyperglycemia or hyperglycemic crisis, random plasma glucose results greater than or equal to 200 mg/dL meet the criteria for diagnosis of diabetes. Reference: Standards of Medical Care in Diabetes 2016, [place] Diabetes Association. Diabetes Care. 2016.39(Suppl 1). Performed By: #### 2 4321-2 ####[facility] LUNANICGENEVIEVEAlex [id number] [place] [address] [place] Potassium [Moles/Vol] 5.4 mmol/L High 3.7-5.1 [facility] Comment on above: Order Comment: Speci men Type: BLOOD SPECIMENOrdering Facility: [facility] Address: [address] [place] [address] Performed By: #### 2 4321-2 ####[facility] [id number] [place] [address] [place] Sodium [Moles/Vol] 135 mmol/L Low 136-144 [facility] Comment on above: Order Comment: Speci men Type: BLOOD SPECIMENOrdering Facility: [facility] Address: [address] [place] [address] Performed By: #### 2 4321-2 ####[facility] [id number] [place] [address] [place] Urea nitrogen [Mass/Vol] 19 mg/dL Normal 7-21 [facility] Comment on above: Order Comment: Speci men Type: BLOOD SPECIMENOrdering Facility: [facility] Address: [address] [place] [address] Performed By: #### 2 4321-2 ####[facility] [id number] [place] [address] [place] Basic metabolic 2000 panelon 06-03-2024 Anion gap [Moles/Vol] 12 mmol/L 8 - 15 mmol/L [facility] Calcium [Mass/Vol] 9.9 mg/dL 8.5 - 10. 2 mg/dL [facility] Chloride [Moles/Vol] 103 mmol/L 98 - 10 7 mmol/L [facility] CO2 [Moles/Vol] 19 mmol/L Low 22 - 30 mmol/L [facility] Creatinine [Mass/Vol] 1.12 mg/dL High 0.58 - 0.96 mg/dL [facility] GFR/1.73 sq M.predicted among non-blacks MDRD (S/P/Bld) [Vol rate/Area] 49 mL/min/{1.73_m2} Low - PINF [facility] Comment on above: Estimated Glomerular Filtration Rate (eGFR) is calculated using the 2020 CKD-EPI creatinine equation. This equation utilizes serum creatinine, sex, and age as parameters. The creatinine assay has traceable calibration to isotope dilution-mass spectrometry. Refer to KDIGO guidelines for clinical interpretation. In patients with unstable renal function, e.g. those with acute kidney injury, the eGFR may not accurately reflect actual GFR. Glucose [Mass/Vol] 73 mg/dL Low 74 - 99 mg/dL [facility] Comment on above: The [place] Diabete s Association (ADA) provides guidance for cutoff values for fasting glucose and random glucose. The ADA defines fasting as no caloric intake for at least 8 hours. Fasting plasma glucose results between 100 to 125 mg/dL indicate increased risk for diabetes (prediabetes). Fasting plasma glucose results greater than or equal to 126 mg/dL meet the criteria for diagnosis of diabetes. In the absence of unequivocal hyperglycemia, results should be confirmed by repeat testing. In a patient with classic symptoms of hyperglycemia or hyperglycemic crisis, random plasma glucose results greater than or equal to 200 mg/dL meet the criteria for diagnosis of diabetes. Reference: Standards of Medical Care in Diabetes 2016, [place] Diabetes Association. Diabetes Care. 2016.39(Suppl 1). Interpretation and review of laboratory results Abnormal [facility] Potassium [Moles/Vol] 5.8 mmol/L High 3.7 - 5.1 mmol/L [facility] Sodium [Moles/Vol] 134 mmol/L Low 136 - 144 mmol/L [facility] Urea nitrogen [Mass/Vol] 24 mg/dL High 7 - 21 mg/dL [facility] Basic metabolic 2000 panelon 06-02-2024 Anion gap [Moles/Vol] 12 mmol/L Normal 8-15 [facility] Comment on above: Order Comment: Speci men Type: BLOOD SPECIMENOrdering Facility: [facility] Address: [address] [place] [address] Performed By: #### 2 4321-2 ####[facility] LABCLIA [id number] [place] [id number] [place] Calcium [Mass/Vol] 9.9 mg/dL Normal 8.5-10.2 [facility] Comment on above: Order Comment: Speci men Type: BLOOD SPECIMENOrdering Facility: [facility] Address: [address] [place] [address] Performed By: #### 2 4321-2 ####[facility] LABCLIA [id number] [place] [id number] [place] Chloride [Moles/Vol] 103 mmol/L Normal 98-107 [facility] Comment on above: Order Comment: Speci men Type: BLOOD SPECIMENOrdering Facility: [facility] Address: [address] [place] [address] Performed By: #### 2 4321-2 ####[facility] LABCLIA [id number] [place] [address] [place] CO2 [Moles/Vol] 19 mmol/L Low 22-30 [facility] Comment on above: Order Comment: Speci men Type: BLOOD SPECIMENOrdering Facility: [facility] Address: [address] [place] [address] Performed By: #### 2 4321-2 ####[facility] LABCLIA [id number] [place] [id number] [place] Creatinine [Mass/Vol] 1.12 mg/dL High 0.58-0.96 [facility] Comment on above: Order Comment: Speci men Type: BLOOD SPECIMENOrdering Facility: [facility] Address: [address] [place] [address] Performed By: #### 2 4321-2 ####[facility] LABCLIA [id number] [place] [id number] [place] Creatinine and Glomerular filtration rate.predicted panel (S/P/Bld) 49 mL/min/1.73m??? Low >=60 [facility] Comment on above: Order Comment: Eliana escobedo Type: BLOOD SPECIMENOrdering Facility: [facility] Address: [address] [place] [address] Result Comment: Cici mated Glomerular Filtration Rate (eGFR) is calculated using the 2020 CKD-EPI creatinine equation. This equation utilizes serum creatinine, sex, and age as parameters. The creatinine assay has traceable calibration to isotope dilution-mass spectrometry. Refer to KDIGO guidelines for clinical interpretation. In patients with unstable renal function, e.g. those with acute kidney injury, the eGFR may not accurately reflect actual GFR. Performed By: #### 2 4321-2 ####[facility] LABIA [id number] [place] [address] [place] Glucose [Mass/Vol] 73 mg/dL Low 74-99 [facility] Comment on above: Order Comment: Eliana escobedo Type: BLOOD SPECIMENOrdering Facility: [facility] Address: [address] [place] [address] Result Comment: The [place] Diabetes Association (ADA) provides guidance for cutoff values for fasting glucose and random glucose. The ADA defines fasting as no caloric intake for at least 8 hours. Fasting plasma glucose results between 100 to 125 mg/dL indicate increased risk for diabetes (prediabetes). Fasting plasma glucose results greater than or equal to 126 mg/dL meet the criteria for diagnosis of diabetes. In the absence of unequivocal hyperglycemia, results should be confirmed by repeat testing. In a patient with classic symptoms of hyperglycemia or hyperglycemic crisis, random plasma glucose results greater than or equal to 200 mg/dL meet the criteria for diagnosis of diabetes. Reference: Standards of Medical Care in Diabetes 2016, [place] Diabetes Association. Diabetes Care. 2016.39(Suppl 1). Performed By: #### 2 4321-2 ####[facility] LABIA [id number] [place] [address] [place] Potassium [Moles/Vol] 5.8 mmol/L High 3.7-5.1 [facility] Comment on above: Order Comment: Speci men Type: BLOOD SPECIMENOrdering Facility: [facility] Address: [address] [place] [address] Performed By: #### 2 4321-2 ####[facility] LABCLIA [id number] [place] [address] [place] Sodium [Moles/Vol] 134 mmol/L Low 136-144 [facility] Comment on above: Order Comment: Speci men Type: BLOOD SPECIMENOrdering Facility: [facility] Address: [address] [place] [address] Performed By: #### 2 4321-2 ####[facility] LABCLIA [id number] [place] [address] [place] Urea nitrogen [Mass/Vol] 24 mg/dL High 7-21 [facility] Comment on above: Order Comment: Speci men Type: BLOOD SPECIMENOrdering Facility: [facility] Address: [address] [place] [address] Performed By: #### 2 4321-2 ####[facility] LABCLIA [id number] [place] [address] [place] CBC W Auto Differential pane l (Bld)on 06-02-2024 Basophils (Bld) [#/Vol] 0.04 10*3/uL [facility] Basophils/100 WBC (Bld) 0.4 % [facility] Differential cell count method Nom (Bld) Auto [facility] Eosinophils (Bld) [#/Vol] 0.15 10*3/uL [facility] Eosinophils/100 WBC (Bld) 1.6 % [facility] Erythrocyte distribution width (RBC) [Ratio] 12.6 % 11.5 - 15.0 % [facility] Hematocrit (Bld) [Volume fraction] 36.7 % 36.0 - 46.0 % [facility] Hemoglobin (Bld) [Mass/Vol] 11.4 g/dL Low 11.5 - 15.5 g/dL [facility] Immature granulocytes (Bld) [#/Vol] 0.03 10*3/uL [facility] Immature granulocytes/100 WBC (Bld) 0.3 % [facility] Interpretation and review of laboratory results Abnormal [facility] Lymphocytes (Bld) [#/Vol] 2.55 10*3/uL [facility] Lymphocytes/100 WBC (Bld) 27.1 % [facility] MCH (RBC) [Entitic mass] 29.2 pg 26.0 - 34.0 pg [facility] MCHC (RBC) [Mass/Vol] 31.1 g/dL 30.5 - 36.0 g/dL [facility] MCV (RBC) [Entitic vol] 94.1 fL 80.0 - 100.0 fL [facility] Monocytes (Bld) [#/Vol] 0.64 10*3/uL [facility] Monocytes/100 WBC (Bld) 6.8 % [facility] Neutrophils (Bld) [#/Vol] 5.99 10*3/uL [facility] Neutrophils/100 WBC (Bld) 63.8 % [facility] Nucleated RBC (Bld) [#/Vol] [facility] Nucleated RBC/100 WBC (Bld) [Ratio] 0 % /100 WBC [facility] Platelet mean volume (Bld) [Entitic vol] 9.9 fL 9.0 - 12.7 fL [facility] Platelets (Bld) [#/Vol] 244 10*3/uL [facility] RBC (Bld) [#/Vol] 3.9 10*6/uL 3.90 - 5.2 0 m/uL [facility] WBC (Bld) [#/Vol] 9.4 10*3/uL [facility] Basophils (Bld) [#/Vol] 0.04 10*3/uL Normal <0.11 [facility] Comment on above: Order Comment: Speci men Type: URINE SPECIMEN [facility] Address: [address] [place] [address] Performed By: #### 2 4356-8 #### [facility] CLIA [id number] [address] [place] [address] [place] [facility] Basophils/100 WBC (Bld) 0.4 % Normal [facility] Comment on above: Order Comment: Speci men Type: URINE SPECIMEN [facility] Address: [address] [place] [address] Performed By: #### 2 4356-8 #### [facility] CLIA [id number] [address] [place] [address] [place] Differential cell count method Nom (Bld) Auto Normal [facility] Comment on above: Order Comment: Speci men Type: URINE SPECIMEN [facility] Address: [address] [place] [address] Performed By: #### 2 4356-8 #### [facility] CLIA [id number] [address] [place] [address] [place] Eosinophils (Bld) [#/Vol] 0.15 10*3/uL Normal <0.46 [facility] Comment on above: Order Comment: Speci men Type: URINE SPECIMEN [facility] Address: [address] [place] [address] Performed By: #### 2 4356-8 #### [facility] CLIA [id number] [address] [place] [address] [place] Eosinophils/100 WBC (Bld) 1.6 % Normal [facility] Comment on above: Order Comment: Speci men Type: URINE SPECIMEN [facility] Address: [address] [place] [address] Performed By: #### 2 4356-8 #### [facility] CLIA [id number] [address] [place] [address] [place] Erythrocyte distribution width (RBC) [Ratio] 12.6 % Normal 11.5-15.0 [facility] Comment on above: Order Comment: Speci men Type: URINE SPECIMEN [facility] Address: [address] [place] [address] Performed By: #### 2 4356-8 #### [facility] CLIA [id number] [address] [place] [address] [place] Hematocrit (Bld) [Volume fraction] 36.7 % Normal 36.0-46.0 [facility] Comment on above: Order Comment: Speci men Type: URINE SPECIMEN [facility] Address: [address] [place] [address] Performed By: #### 2 4356-8 #### [facility] CLIA [id number] [address] [place] [address] [place] Hemoglobin (Bld) [Mass/Vol] 11.4 g/dL Low 11.5-15.5 [facility] Comment on above: Order Comment: Speci men Type: URINE SPECIMEN [facility] Address: [address] [place] [address] Performed By: #### 2 4356-8 #### [facility] CLIA [id number] [address] [place] [address] [place] Immature granulocytes (Bld) [#/Vol] 0.03 10*3/uL Normal <0.10 [facility] Comment on above: Order Comment: Speci men Type: URINE SPECIMEN [facility] Address: [address] [place] [address] Performed By: #### 2 4356-8 #### [facility] CLIA [id number] [address] [place] [address] [place] Immature granulocytes/100 WBC (Bld) 0.3 % Normal [facility] Comment on above: Order Comment: Speci men Type: URINE SPECIMEN [facility] Address: [address] [place] [address] Performed By: #### 2 4356-8 #### [facility] CLIA [id number] [address] [place] [address] [place] Lymphocytes (Bld) [#/Vol] 2.55 10*3/uL Normal 1.00-4.00 [facility] Comment on above: Order Comment: Speci men Type: URINE SPECIMEN [facility] Address: [address] [place] [address] Performed By: #### 2 4356-8 #### [facility] CLIA [id number] [address] [place] [address] [place] Lymphocytes/100 WBC (Bld) 27.1 % Normal [facility] Comment on above: Order Comment: Speci men Type: URINE SPECIMEN [facility] Address: [address] [place] [address] Performed By: #### 2 4356-8 #### [facility] CLIA [id number] [address] [place] [address] [place] MCH (RBC) [Entitic mass] 29.2 pg Normal 26.0-34.0 [facility] Comment on above: Order Comment: Speci men Type: URINE SPECIMEN [facility] Address: [address] [place] [address] Performed By: #### 2 4356-8 #### [facility] CLIA [id number] [address] [place] [address] [place] MCHC (RBC) [Mass/Vol] 31.1 g/dL Normal 30.5-36.0 [facility] Comment on above: Order Comment: Speci men Type: URINE SPECIMEN [facility] Address: [address] [place] [address] Performed By: #### 2 4356-8 #### [facility] CLIA [id number] [address] [place] [address] [place] MCV (RBC) [Entitic vol] 94.1 fL Normal 80.0-100.0 [facility] Comment on above: Order Comment: Speci men Type: URINE SPECIMEN [facility] Address: [address] [place] [address] Performed By: #### 2 4356-8 #### [facility] CLIA [id number] [address] [place] [address] [place] Monocytes (Bld) [#/Vol] 0.64 10*3/uL Normal <0.87 [facility] Comment on above: Order Comment: Speci men Type: URINE SPECIMEN [facility] Address: [address] [place] [address] Performed By: #### 2 4356-8 #### [facility] CLIA [id number] [address] [place] [address] [place] Monocytes/100 WBC (Bld) 6.8 % Normal [facility] Comment on above: Order Comment: Speci men Type: URINE SPECIMEN [facility] Address: [address] [place] [address] Performed By: #### 2 4356-8 #### [facility] CLIA [id number] [address] [place] [address] [place] Neutrophils (Bld) [#/Vol] 5.99 10*3/uL Normal 1.45-7.50 [facility] Comment on above: Order Comment: Speci men Type: URINE SPECIMEN [facility] Address: [address] [place] [address] Performed By: #### 2 4356-8 #### [facility] CLIA [id number] [address] [place] [address] [place] Neutrophils/100 WBC (Bld) 63.8 % Normal [facility] Comment on above: Order Comment: Speci men Type: URINE SPECIMEN [facility] Address: [address] [place] [address] Performed By: #### 2 4356-8 #### [facility] CLIA [id number] [address] [place] [address] [place] Nucleated RBC (Bld) [#/Vol] 10*3/uL Normal <0.01 [facility] Comment on above: Order Comment: Speci men Type: URINE SPECIMEN [facility] Address: [address] [place] [address] Performed By: #### 2 4356-8 #### [facility] CLIA [id number] [address] [place] [address] [place] Nucleated RBC/100 WBC (Bld) [Ratio] 0.0 /100 WBC Normal [facility] Comment on above: Order Comment: Speci men Type: URINE SPECIMEN [facility] Address: [address] [place] [address] Performed By: #### 2 4356-8 #### [facility] CLIA [id number] [address] [place] [address] [place] Platelet mean volume (Bld) [Entitic vol] 9.9 fL Normal 9.0-12.7 [facility] Comment on above: Order Comment: Speci men Type: URINE SPECIMEN [facility] Address: [address] [place] [address] Performed By: #### 2 4356-8 #### [facility] CLIA [id number] [address] [place] [address] [place] Platelets (Bld) [#/Vol] 244 10*3/uL Normal 150-400 [facility] Comment on above: Order Comment: Speci men Type: URINE SPECIMEN [facility] Address: [address] [place] [address] Performed By: #### 2 4356-8 #### [facility] CLIA [id number] [address] [place] [address] [place] RBC (Bld) [#/Vol] 3.90 10*6/uL Normal 3.90-5.20 [facility] Comment on above: Order Comment: Speci men Type: URINE SPECIMEN [facility] Address: [address] [place] [address] Performed By: #### 2 4356-8 #### [facility] CLIA [id number] [address] [place] [address] [place] WBC (Bld) [#/Vol] 9.40 10*3/uL Normal 3.70-11.00 [facility] Comment on above: Order Comment: Speci men Type: URINE SPECIMEN [facility] Address: [address] [place] [address] Performed By: #### 2 4356-8 #### [facility] BELLAIA [id number] [address] [place] [address] OF [facility] CNOVon 06-02-2024 CNOV Office Visit (FAMPWS) SPENSER PUTNAM ([id number]) 1940 F Date Time Provider Department 06/02/24 10:40 [facility], we recorded the following information about you: Pulse Respiration Blood pressure Weight 64/minute 16/minute 112/60 62.6 kg Juan Spann MD 06/03/2024 8:17 AM Signed Chief Complaint Patient presents with: Pre-Op Exam HPI Spenser Putnam is a 83 year old female who presents here today for Pre op for Spinal Cord Stimulator;leads and generator implant at [facility] Patient with hx HTN, hyperlipidemia, RLS, insomnia, vit b12 def, OA and those as below. Patient has a Hx of HTN and has lumbar radiculopathy and is set up to have a spinal cord stimulator with generator implanted per Dr. Jamey Collier on 06/24/2024 at [facility]. Patient has been dong ok. No complaints or concerns. Patient is able to climb a flight of stairs and move a piece of furniture without getting short of breath or developing chest tightness. Past medical history, appointments, medications, allergies reviewed. 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 Macias, Rt anterior shoulder, Gilberto III, pT1a, pNX, pM N/A Mixed hyperlipidemia 10/13/2014 Multiple thyroid nodules 09/15/2017 CT neck09/2017 7 mm nodule, US multiple small nodules repeat 09/2019 Non morbid obesity 03/29/2016 Osteopenia, senile 07/02/2005 SEE DEXA 07/15 Other chronic dermatitis due to solar radiation 03/27/2006 Other psoriasis 04/16/2013 Other seborrheic keratosis 06/23/2006 Personal history of other malignant neoplasm of skin 03/22/2013 Raynaud's phenomenon without gangrene 06/07/2020 suspected Restless leg syndrome Sensorineural hearing loss, asymmetrical 10/08/2017 Solar lentigo 03/22/2013 Spinal stenosis of lumbar region 06/17/2023 Spinal stenosis, lumbar region, without neurogenic claudication 07/25/2023 Spondylolisthesis at L5-S1 level 10/20/2012 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 09/15/2012 Vertigo 12/03/2021 MRI normal and patient declined further eval as of 12/03/21 Vitamin B12 deficiency 11/09/2023 Vitamin D deficiency 08/24/2016 Xerosis cutis 03/22/2013 Previous Surgical History PAST SURGICAL HISTORY Procedure Laterality Date ABDOMINAL SURGERY HX BACK SURGERY HX 01/23/2021 lateral lumbar interbody fusion L3-4 CHOLECYSTECTOMY age 52 +/- laparoscopic cholecystectomy COLONOSCOPY 04/29/2013 Dr. Patton, repeat 5 yrs COLONOSCOPY FLX DX W/COLLJ SPEC WHEN PFRMD 07/09/2006 COLONOSCOPY FLX DX W/COLLJ SPEC WHEN PFRMD 04/29/2013 internal hemorrhoids, q5y for FHx COLONOSCOPY, GI 05/02/2000 FHx, repeat q5y DILATION AND CURETTAGE DXAND/THER NONOBSTETRIC Dilation AND curettage EYE SURGERY HX PAST SURGICAL HISTORY OF 12/2011 squamous cell CA rt hand.left LE PAST SURGICAL HISTORY OF 04/2012 rt CTR-- endoscopic PAST SURGICAL HISTORY OF 2012 lumbar surgery- fusion PAST SURGICAL HISTORY OF 2014 excision melanoma right shoulder PAST SURGICAL HISTORY OF Right 2017 bunionectoy TONSILLECTOMY HX TONSILLECTOMY PRIMARY/SECONDARY Tonsillectomy Family History FAMILY HISTORY Problem Relation Age of Onset Colon Cancer Mother ~70 Hypertension Mother Thyroid Mother Colon Cancer Father ~70 Hypertension Father Stroke Father Heart Father Hx of CHF Coronary Artery Disease Maternal Grandmother Hx of HI Diabetes Daughter Type I Patient Allergies ALLERGIES Allergen Reactions Sulfa (Sulfonamide * Swelling, Anaphylaxis Tongue/ throat swelled Phenergan Plain Vomiting Vomiting Hydrocodone-Acetami* GI Upset NAUSEA Procardia [Nifedipi* Swelling legs Current Medications Current Outpatient Medications on File Prior to Visit Medication Sig rOPINIRole (REQUIP) 4 mg tablet Take 1 tablet by mouth daily at bedtime. celecoxib (CELEBREX) 200 mg capsule Take 1 capsule by mouth once daily. ALPRAZolam 0.5 mg dissolvable tablet BRING 2 TABLETS TO PROCEDURE LOCATION ON THE DAY OF PROCEDURE, TO BE ADMINISTERED BY STAFF cephALEXin (KEFLE (more content not included)... Normal [facility] PTQ11hs 06-02-2024 ECG01 Ventricular Rate : 62 BPM Atrial Rate : 62 BPM P-R Interval : 188 ms QRS Duration : 94 ms Q-T Interval : 398 ms QTC Calculation(Bazett) : 403 ms Calculated P Jerome : 57 degrees Calculated R Jerome : 28 degrees Calculated T Jerome : 52 degrees NORMAL SINUS RHYTHM NORMAL ECG Confirmed by MD SEVILLA QARAB ([id number]) on 06/08/2024 11:54:39 AM NAME : SPENSER PUTNAM PID : [id number] : 1940 Gender : Female Race : ORD : Procedure Date : Jun 02 2024 11:13:09 Edit Date : Jun 08 2024 11:54:43 Diagnosis: NORMAL SINUS RHYTHM NORMAL ECG Confirmed by MD SEVILLA QARAB ([id number]) on 06/08/2024 11:54:39 AM Test Reason : Location : 136 : [facility] Overread By : MD SEVILLA QARAB Edited By : MD SEVILLA QARAB Referred By : Kelle pSann Acquired by : Kelle Isiah, Normal [facility] Marleny 05-18-2024 RAYSA Telephone (AGSPINE3) JERSEYSPENSER ([id number]) 1940 F Date Time Provider Department 05/18/24 AJ GRAHAM AGSPINE3 During your visit today, we recorded the following information about you: Meg Chaudhary LPN 05/18/2024 9:14 AM Signed [facility] faxed requesting the following refill: Refill(s) Requested: Requested Prescriptions No prescriptions requested or ordered in this encounter celecoxib (CELEBREX) 200 mg capsule ALLERGIES Allergen Reactions Sulfa (Sulfonamide * Swelling, Anaphylaxis Tongue/ throat swelled Phenergan Plain Vomiting Vomiting Hydrocodone-Acetami* GI Upset NAUSEA Procardia [Nifedipi* Swelling legs (home) [phone] (cell) Last Office Visit Date: 05/04/2024 Last [facility] Visit: 04/13/2024 Future Appointment: 07/06/2024 Provider: Aj Graham The patients preferred pharmacy has been captured for this encounter? no Request is for script(s) to be escript to pharmacy. E- [id number] [place] [address] [address] [facility] - [phone] [facility] [phone] [id number] Specialty Problems Neuro problems Insomnia, unspecified Restless leg syndrome Carpal tunnel syndrome, left Lumbar radiculopathy Pharmacy stated on faxed that patient previously asked pharmacy to cancel this script, now expecting refill Meg Chaudhary LPN May 18, 2024 9:10 AM Aj Graham APRN.[employer] 05/18/2024 10:46 AM Signed Ordered reviewed, script refilled Aj Graham APRN.CNP 05/18/2024 10:46 AM Signed Addended by: AJ GRAHAM on: 05/18/2024 10:46 AM Modules accepted: Orders Allergies As of Date: 05/18/2024 Noted Allergy Reaction SULFA (SULFONAMIDE ANTIBIOTICS) 04/11/2005 7 - Swelling 10 - Anaphylaxis Comments: Tongue/ throat swelled PHENERGAN PLAIN 03/18/2013 11 - Vomiting Comments: Vomiting HYDROCODONE-ACETAMIN OPHEN 12/30/2011 8 - GI Upset Comments: NAUSEA PROCARDIA (NIFEDIPINE) 06/26/2020 7 - Swelling Comments: legs Date Reviewed: 05/04/2024 Reviewed by: Aj Graham APRN.[employer]CH[employer] - Fully Assessed Reason for Visit: Refill Request [94] Cmt: celecoxib (CELEBREX) 200 mg capsule Visit Diagnosis:Lumbar spondylosis [M47.816] Order(s):celecoxib (CELEBREX) 200 mg capsuleTake 1 capsule by mouth once daily.Disp: 30 capsuleRfl: 2 Prescriptions as of 05/18/2024 - celecoxib (CELEBREX) 200 mg capsule Take 1 capsule by mouth once daily. - ALPRAZolam 0.5 mg dissolvable tablet BRING 2 TABLETS TO PROCEDURE LOCATION ON THE DAY OF PROCEDURE, TO BE ADMINISTERED BY STAFF - cephALEXin (KEFLEX) 500 mg capsule Take 1 capsule by mouth three times a day. Please start 1 day prior to your scheduled procedure in the morning, and complete the full 5 day course. - pravastatin (PRAVACHOL) 20 mg tablet Take 1 tablet by mouth daily at bedtime. - potassium chloride 20 mEq TbER Take 1 tablet by mouth once daily. - rOPINIRole (REQUIP) 4 mg tablet Take 1 tablet by mouth daily at bedtime. - spironolactone (ALDACTONE) 50 mg tablet Take 1 tablet by mouth once daily. - nortriptyline (PAMELOR) 75 mg capsule Take 1 capsule by mouth daily at bedtime. - Magnesium 250 mg tab Take 1 tablet by mouth once daily. - lisinopril (ZESTRIL) 10 mg tablet Take 1 tablet by mouth once daily. - cholecalciferol, vitamin D3, (VITAMIN D3 ORAL) Take by mouth. - cyanocobalamin (VITAMIN B-12) 1,000 mcg tab Take 1 tablet by mouth once daily. - pregabalin (LYRICA) 50 mg capsule Take one pill twice daily - aspirin, enteric coated (ADULT LOW DOSE ASPIRIN) 81 mg EC tablet Take 1 tablet by mouth once daily. - calcium carbonate(CALTRATE 600 600 MG (1,500 MG) TAB) Problem List As Of Date 05/18/2024 Noted Resolved Osteopenia, senile [M85.80] 07/02/2005 Bilateral leg edema [R60.0] 07/02/2005 Family history of malignant neoplasm of gastroi*07/02/2005 03/27/2016 Insomnia, unspecified [G47.00] 07/02/2005 Actinic Keratoses: Premalignant AK's [L57.0] 03/27/2006 Other chronic dermatitis due to solar radiation*03/27/2006 SOLAR LENGINES////DYSCHROM IA OTHER [L81.9] 03/27/2006 03/22/2013 XEROSIS////SEBACEOUS GLAND DIS NEC [L73.8] 03/27/2006 03/22/2013 Other seborrheic keratosis [L82.1] 06/23/2006 Routine general medical examination at [facility]*08/24/2008 07/29/2011 Class: Chronic Routine gynecological examination [Z01.419] 08/24/2008 07/29/2011 Class: Chronic Restless leg syndrome [G25.81] Hand joint stiff [M25.649] 02/11/2012 Lumbar disc herniation [M51.26] 09/15/2012 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 [M43.16]09/15/2012 Hypokalemia [E87.6] 10/20/2012 Spondylolisthesis at L5-S1 level [M43.17] 10/20/2012 Solar lentigo [L81.4] 03/22/2013 Xerosis cutis [L85.3] 03/22/2013 Personal history of other malignant neoplasm of*03/22/2013 Other psoriasis [L40.8] 04/16/2013 Melanoma of shoulder (H (more content not included)... Normal [facility] Marleny 05-12-2024 JOVANYN Telephone (AGSPINE3) JERSEYSPENSER ([id number]) 1940 F Date Time Provider Department 05/12/24 DANII ROCA AGSPINE3 During your visit today, we recorded the following information about you: Mony Laboy 05/12/2024 11:33 AM Signed Spoke to Preethi from [facility] patient was seen by Dr benedict office, patient is waiting to be schedule for implant we reached out to see when she will be scheduled they will be calling her Allergies As of Date: 05/12/2024 Noted Allergy Reaction SULFA (SULFONAMIDE ANTIBIOTICS) 04/11/2005 7 - Swelling 10 - Anaphylaxis Comments: Tongue/ throat swelled PHENERGAN PLAIN 03/18/2013 11 - Vomiting Comments: Vomiting HYDROCODONE-ACETAMIN OPHEN 12/30/2011 8 - GI Upset Comments: NAUSEA PROCARDIA (NIFEDIPINE) 06/26/2020 7 - Swelling Comments: legs Date Reviewed: 05/04/2024 Reviewed by: Aj Graham APRN.[employer]CH[employer] - Fully Assessed Reason for Visit: Patient Update [1234] Cmt: SCS IMPLANT Prescriptions as of 05/12/2024 - ALPRAZolam 0.5 mg dissolvable tablet BRING 2 TABLETS TO PROCEDURE LOCATION ON THE DAY OF PROCEDURE, TO BE ADMINISTERED BY STAFF - cephALEXin (KEFLEX) 500 mg capsule Take 1 capsule by mouth three times a day. Please start 1 day prior to your scheduled procedure in the morning, and complete the full 5 day course. - pravastatin (PRAVACHOL) 20 mg tablet Take 1 tablet by mouth daily at bedtime. - potassium chloride 20 mEq TbER Take 1 tablet by mouth once daily. - rOPINIRole (REQUIP) 4 mg tablet Take 1 tablet by mouth daily at bedtime. - spironolactone (ALDACTONE) 50 mg tablet Take 1 tablet by mouth once daily. - nortriptyline (PAMELOR) 75 mg capsule Take 1 capsule by mouth daily at bedtime. - Magnesium 250 mg tab Take 1 tablet by mouth once daily. - lisinopril (ZESTRIL) 10 mg tablet Take 1 tablet by mouth once daily. - cholecalciferol, vitamin D3, (VITAMIN D3 ORAL) Take by mouth. - cyanocobalamin (VITAMIN B-12) 1,000 mcg tab Take 1 tablet by mouth once daily. - pregabalin (LYRICA) 50 mg capsule Take one pill twice daily - aspirin, enteric coated (ADULT LOW DOSE ASPIRIN) 81 mg EC tablet Take 1 tablet by mouth once daily. - calcium carbonate(CALTRATE 600 600 MG (1,500 MG) TAB) Problem List As Of Date 05/12/2024 Noted Resolved Osteopenia, senile [M85.80] 07/02/2005 Bilateral leg edema [R60.0] 07/02/2005 Family history of malignant neoplasm of gastroi*07/02/2005 03/27/2016 Insomnia, unspecified [G47.00] 07/02/2005 Actinic Keratoses: Premalignant AK's [L57.0] 03/27/2006 Other chronic dermatitis due to solar radiation*03/27/2006 SOLAR LENGINES////DYSCHROM IA OTHER [L81.9] 03/27/2006 03/22/2013 XEROSIS////SEBACEOUS GLAND DIS NEC [L73.8] 03/27/2006 03/22/2013 Other seborrheic keratosis [L82.1] 06/23/2006 Routine general medical examination at [facility]*08/24/2008 07/29/2011 Class: Chronic Routine gynecological examination [Z01.419] 08/24/2008 07/29/2011 Class: Chronic Restless leg syndrome [G25.81] Hand joint stiff [M25.649] 02/11/2012 Lumbar disc herniation [M51.26] 09/15/2012 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 [M43.16]09/15/2012 Hypokalemia [E87.6] 10/20/2012 Spondylolisthesis at L5-S1 level [M43.17] 10/20/2012 Solar lentigo [L81.4] 03/22/2013 Xerosis cutis [L85.3] 03/22/2013 Personal history of other malignant neoplasm of*03/22/2013 Other psoriasis [L40.8] 04/16/2013 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] 04/10/2013 Mixed hyperlipidemia [E78.2] 10/13/2014 Routine gynecological examination [Z01.419] 10/13/2014 03/27/2016 Colon cancer screening [Z12.11] 10/13/2014 03/27/2016 Well adult exam [Z00.00] 10/13/2014 03/27/2016 Essential hypertension with goal blood pressure*08/14/2015 Encounter for screening mammogram for breast ca*02/21/2016 03/27/2016 Non morbid obesity [E66.9] 03/29/2016 Vitamin D deficiency [E55.9] 08/24/2016 Medicare annual wellness visit, subsequent [Z00*03/12/2017 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 Multiple thyroid nodules [E04.2] 09/15/2017 Sensorineural hearing loss, asymmetrical [H90.3]10/08/2017 Lumbar stenosis [M48.061] Internal hemorrhoids [K64.8] Medication management [Z79.899] 09/22/2018 Raynaud's phenomenon without gangrene [I73.00] 06/07/2020 Carpal tunnel syndrome, left [G56.02] 08/17/2020 Valvular heart disease [I38] 10/20/2020 S/P lumbar fusion [Z98.1] 04/16/2021 05/28/2021 Advance directive discussed with patient [Z71.8*04/23/2021 Vertigo [R42] 12/03/2021 Living will on file at physician's office [Z78.*07/22/2022 Spinal stenosis of lumbar region [M48.061] 06/17/2023 Hyperuricemia [E79.0] 07/03/2023 Lumbar radiculopathy [M54.16] 07/25/2023 Spinal stenosis, lumbar region, without neuroge*07/25/2023 Lumbar spondylosis [M47.816] 07/25/2023 Anemia, chronic disease [D63.8] 11/09/2023 Vitamin B12 deficiency [E53.8] 11/09/2023 Hyponatremia [E87.1] (more content not included)... Normal [facility] CNOVon 05-04-2024 CNOV Office Visit (AGSPINE3) SPENSER PUTNAM ([id number]) 1940 F Date Time Provider Department 05/04/24 1:00 PM PUJAMARKOSAJ AGSPINE3 During your visit today, we recorded the following information about you: Pulse Respiration Normal [facility] XR LUMBAR 2V AP/LATon 2024 XR LUMBAR 2V AP/LAT * * *Final Report* * * DATE OF EXAM: May 03 2024 8:32AM [id number] [id number] - XR LUMBAR 2V AP/LAT / PROCEDURE REASON: multiple diagnoses * * * * Physician Interpretation * * * * Lumbar spine History: Lumbar radiculopathy Spinal stenosis, lumbar region, without neurogenic claudication Prior study: 03/21/2023 Findings: AP and lateral views were performed. There is increased central and posterior compressive deformity of L5 vertebral body. There is grade 1 spondylolisthesis L4-5 possibly mildly increased. Increased density at the L4-5 level consistent with previous interbody fusion procedure. There is narrowing of the L2-3 disc space with a few millimeters of retrolisthesis. Mild levoscoliosis. Pedicle screws and longitudinal stabilization rods L4 and L5 levels. Radiopaque spacer at L3-4 disc space with LEFT lateral screw fixation. Counting reference: Lumbosacral junction. For the purposes of this report, L4-5 is considered the level of the iliac crest and there are 5 lumbar-type vertebrae. Anatomic Variants: None. IMPRESSION: Mild L5 vertebral body compression deformity increased from previous study. Possibly with associated mild increase in spondylolisthesis. Other findings as per results Ring Facer: PSCB Transcribe Date/Time: May 05 2024 12:47P Dictated by : CHELSEA CHONG MD This examination was interpreted and the report reviewed and electronically signed by: CHELSEA CHONG MD on May 05 2024 12:58PM EST [id number] Normal [facility] XR THORACIC 2V AP/LATon - XR THORACIC 2V AP/LAT * * *Final Report* * * DATE OF EXAM: May 03 2024 8:33AM [id number] - XR THORACIC 2V AP/LAT / PROCEDURE REASON: multiple diagnoses * * * * Physician Interpretation * * * * Thoracic spine: History:Lumbar radiculopathy Spinal stenosis, lumbar region, without neurogenic claudication. Thoracic stimulator leads AP and lateral and swimmer views were performed. Thoracic epidural stimulator wires extend to the T8-T9 disc space level. The vertebral bodies and pedicles appear intact. There is no evidence of paraspinal widening. The intervertebral disc spaces are maintained. IMPRESSION: No acute findings. No appreciable degenerative change. Stimulator lead as noted in results. Ring Facer: DARRYL Transcribe Date/Time: May 05 2024 1:00P Dictated by : CHELSEA CHONG MD This examination was interpreted and the report reviewed and electronically signed by: CHELSEA CHONG MD on May 05 2024 1:03PM EST [id number] [facility] CNPN Telephone (AGSPINE3) PSENSER PUTNAM ([id number]) 1940 F Date Time Provider Department 04/27/24 DANII ROCA AGSPINE3 During your visit today, we recorded the following information about you: Mony Laboy 04/27/2024 7:57 AM Signed SPOKE TO PATIENT SHE HAD A QUESTION REGARDING HOW LONG THIS PROCEDURE WAS I ANSWERED HER QUESTION SHE UNDERSTOOD Allergies As of Date: 04/27/2024 Noted Allergy Reaction SULFA (SULFONAMIDE ANTIBIOTICS) 04/11/2005 7 - Swelling 10 - Anaphylaxis Comments: Tongue/ throat swelled PHENERGAN PLAIN 03/18/2013 11 - Vomiting Comments: Vomiting HYDROCODONE-ACETAMIN OPHEN 12/30/2011 8 - GI Upset Comments: NAUSEA PROCARDIA (NIFEDIPINE) 06/26/2020 7 - Swelling Comments: legs Date Reviewed: 03/23/2024 Reviewed by: Rosalba Arriaga LPN - Fully Assessed Reason for Visit: Patient Update [1234] Prescriptions as of 04/27/2024 - ALPRAZolam 0.5 mg dissolvable tablet BRING 2 TABLETS TO PROCEDURE LOCATION ON THE DAY OF PROCEDURE, TO BE ADMINISTERED BY STAFF - cephALEXin (KEFLEX) 500 mg capsule Take 1 capsule by mouth three times a day. Please start 1 day prior to your scheduled procedure in the morning, and complete the full 5 day course. - pravastatin (PRAVACHOL) 20 mg tablet Take 1 tablet by mouth daily at bedtime. - potassium chloride 20 mEq TbER Take 1 tablet by mouth once daily. - rOPINIRole (REQUIP) 4 mg tablet Take 1 tablet by mouth daily at bedtime. - spironolactone (ALDACTONE) 50 mg tablet Take 1 tablet by mouth once daily. - nortriptyline (PAMELOR) 75 mg capsule Take 1 capsule by mouth daily at bedtime. - Magnesium 250 mg tab Take 1 tablet by mouth once daily. - lisinopril (ZESTRIL) 10 mg tablet Take 1 tablet by mouth once daily. - cholecalciferol, vitamin D3, (VITAMIN D3 ORAL) Take by mouth. - cyanocobalamin (VITAMIN B-12) 1,000 mcg tab Take 1 tablet by mouth once daily. - pregabalin (LYRICA) 50 mg capsule Take one pill twice daily - aspirin, enteric coated (ADULT LOW DOSE ASPIRIN) 81 mg EC tablet Take 1 tablet by mouth once daily. 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 radiation*03/27/2006 SOLAR LENGINES////DYSCHROM IA OTHER [L81.9] 03/27/2006 03/22/2013 XEROSIS////SEBACEOUS GLAND DIS NEC [L73.8] 03/27/2006 03/22/2013 Other seborrheic keratosis [L82.1] 06/23/2006 Routine general medical examination at [facility]*08/24/2008 07/29/2011 Class: Chronic Routine gynecological examination [Z01.419] 08/24/2008 07/29/2011 Class: Chronic Restless leg syndrome [G25.81] Hand joint stiff [M25.649] 02/11/2012 Lumbar disc herniation [M51.26] 09/15/2012 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 [M43.16]09/15/2012 Hypokalemia [E87.6] 10/20/2012 Spondylolisthesis at L5-S1 level [M43.17] 10/20/2012 Solar lentigo [L81.4] 03/22/2013 Xerosis cutis [L85.3] 03/22/2013 Personal history of other malignant neoplasm of*03/22/2013 Other psoriasis [L40.8] 04/16/2013 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] 04/10/2013 Mixed hyperlipidemia [E78.2] 10/13/2014 Routine gynecological examination [Z01.419] 10/13/2014 03/27/2016 Colon cancer screening [Z12.11] 10/13/2014 03/27/2016 Well adult exam [Z00.00] 10/13/2014 03/27/2016 Essential hypertension with goal blood pressure*08/14/2015 Encounter for screening mammogram for breast ca*02/21/2016 03/27/2016 Non morbid obesity [E66.9] 03/29/2016 Vitamin D deficiency [E55.9] 08/24/2016 Medicare annual wellness visit, subsequent [Z00*03/12/2017 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 18 Multiple thyroid nodules [E04.2] 09/15/2017 Sensorineural hearing loss, asymmetrical [H90.3]10/08/2017 Lumbar stenosis [M48.061] Internal hemorrhoids [K64.8] Medication management [Z79.899] 09/22/2018 Raynaud's phenomenon without gangrene [I73.00] 06/07/2020 Carpal tunnel syndrome, left [G56.02] 08/17/2020 Valvular heart disease [I38] 10/20/2020 S/P lumbar fusion [Z98.1] 04/16/2021 05/28/2021 Advance directive discussed with patient [Z71.8*04/23/2021 Vertigo [R42] 12/03/2021 Living will on file at physician's office [Z78.*07/22/2022 Spinal stenosis of lumbar region [M48.061] 06/17/2023 Hyperuricemia [E79.0] 07/03/2023 Lumbar radiculopathy [M54.16] 07/25/2023 Spinal stenosis, lumbar region, without neuroge*07/25/2023 Lumbar spondylosis [M47.816] 07/25/2023 Anemia, chronic disease [D63.8] 11/09/2023 Vitamin B12 deficiency [E53.8] 11/09/2023 Hyponatremia [E87.1] 12/01/2023 Hypomagnesemia [E83.42] 12/18/2023 Encounter Status:C (more content not included)... Normal [facility] CNPNon 04-26-2024 CNPN Telephone (AGSPINE3) JERSEYSPENSER ([id number]) 1940 F Date Time Provider Department 04/26/24 DANII ROCA AGSPINE3 During your visit today, we recorded the following information about you: Monae Mancini PSS 04/26/2024 3:34 PM Signed Patient called LVM stated she had question about her trial. VM was transferred to Mony @ [id number] Dr[address] Danii Roca,PhD, Dr. Kahlil DO Juarez Jason Sindledecker, MANAGER MOBILITY,[employer] [facility] P: [phone] / F: [phone] Mony Laboy 04/28/2024 8:09 AM Signed Spoke to patient on did not receive voicemail, patient had my direct line she was just asking how long her procedure was. Gave her instruction she is aware and has my office line to contact Allergies As of Date: 04/26/2024 Noted Allergy Reaction SULFA (SULFONAMIDE ANTIBIOTICS) 04/11/2005 7 - Swelling 10 - Anaphylaxis Comments: Tongue/ throat swelled PHENERGAN PLAIN 03/18/2013 11 - Vomiting Comments: Vomiting HYDROCODONE-ACETAMIN OPHEN 12/30/2011 8 - GI Upset Comments: NAUSEA PROCARDIA (NIFEDIPINE) 06/26/2020 7 - Swelling Comments: legs Date Reviewed: 03/23/2024 Reviewed by: Rosalba Arriaga LPN - Fully Assessed Reason for Visit: Patient Question [1477] Prescriptions as of 04/28/2024 - ALPRAZolam 0.5 mg dissolvable tablet BRING 2 TABLETS TO PROCEDURE LOCATION ON THE DAY OF PROCEDURE, TO BE ADMINISTERED BY STAFF - cephALEXin (KEFLEX) 500 mg capsule Take 1 capsule by mouth three times a day. Please start 1 day prior to your scheduled procedure in the morning, and complete the full 5 day course. - pravastatin (PRAVACHOL) 20 mg tablet Take 1 tablet by mouth daily at bedtime. - potassium chloride 20 mEq TbER Take 1 tablet by mouth once daily. - rOPINIRole (REQUIP) 4 mg tablet Take 1 tablet by mouth daily at bedtime. - spironolactone (ALDACTONE) 50 mg tablet Take 1 tablet by mouth once daily. - nortriptyline (PAMELOR) 75 mg capsule Take 1 capsule by mouth daily at bedtime. - Magnesium 250 mg tab Take 1 tablet by mouth once daily. - lisinopril (ZESTRIL) 10 mg tablet Take 1 tablet by mouth once daily. - cholecalciferol, vitamin D3, (VITAMIN D3 ORAL) Take by mouth. - cyanocobalamin (VITAMIN B-12) 1,000 mcg tab Take 1 tablet by mouth once daily. - pregabalin (LYRICA) 50 mg capsule Take one pill twice daily - aspirin, enteric coated (ADULT LOW DOSE ASPIRIN) 81 mg EC tablet Take 1 tablet by mouth once daily. - calcium carbonate(CALTRATE 600 600 MG (1,500 MG) TAB) Problem List As Of Date 04/26/2024 Noted Resolved Osteopenia, senile [M85.80] 07/02/2005 Bilateral leg edema [R60.0] 07/02/2005 Family history of malignant neoplasm of gastroi*07/02/2005 03/27/2016 Insomnia, unspecified [G47.00] 07/02/2005 Actinic Keratoses: Premalignant AK's [L57.0] 03/27/2006 Other chronic dermatitis due to solar radiation*03/27/2006 SOLAR LENGINES////DYSCHROM IA OTHER [L81.9] 03/27/2006 03/22/2013 XEROSIS////SEBACEOUS GLAND DIS NEC [L73.8] 03/27/2006 03/22/2013 Other seborrheic keratosis [L82.1] 06/23/2006 Routine general medical examination at [facility]*08/24/2008 07/29/2011 Class: Chronic Routine gynecological examination [Z01.419] 08/24/2008 07/29/2011 Class: Chronic Restless leg syndrome [G25.81] Hand joint stiff [M25.649] 02/11/2012 Lumbar disc herniation [M51.26] 09/15/2012 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 [M43.16]09/15/2012 Hypokalemia [E87.6] 10/20/2012 Spondylolisthesis at L5-S1 level [M43.17] 10/20/2012 Solar lentigo [L81.4] 03/22/2013 Xerosis cutis [L85.3] 03/22/2013 Personal history of other malignant neoplasm of*03/22/2013 Other psoriasis [L40.8] 04/16/2013 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] 04/10/2013 Mixed hyperlipidemia [E78.2] 10/13/2014 Routine gynecological examination [Z01.419] 10/13/2014 03/27/2016 Colon cancer screening [Z12.11] 10/13/2014 03/27/2016 Well adult exam [Z00.00] 10/13/2014 03/27/2016 Essential hypertension with goal blood pressure*08/14/2015 Encounter for screening mammogram for breast ca*02/21/2016 03/27/2016 Non morbid obesity [E66.9] 03/29/2016 Vitamin D deficiency [E55.9] 08/24/2016 Medicare annual wellness visit, subsequent [Z00*03/12/2017 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 Multiple thyroid nodules [E04.2] 09/15/2017 Sensorineural hearing loss, asymmetrical [H90.3]10/08/2017 Lumbar stenosis [M48.061] Internal hemorrhoids [K64.8] Medication management [Z79.899] 09/22/2018 Raynaud's phenomenon without gangrene [I73.00] 06/07/2020 Carpal tunnel syndrome, left [G56.02] 08/17/2020 Valvular heart disease [I38] 10/20/2020 S/P lumbar fusion [Z98.1] 04/16/2021 05/28/2021 Advance directive discussed with patient [Z71.8*04/23/2021 Vertigo [R42] 12/03/2021 Living will on file at physician's office [Z78.*07/22/2022 Spinal stenosis of lumbar region (more content not included)... Normal [facility]ahomi [facility]20[facility] SPENSER PUTNAM SUE ([id number]) 1940 F Date Time Provider Department 04/21/24 DANII ROCA AGSPINE3 During your visit today, we recorded the following information about you: Mony Laboy 04/21/2024 1:23 PM Addendum CALLED PATIENT SPOKE TO DAUGHTER AND SPENSER THEY BOTH CONFIRMED 04/27/24 IS A GOOD DAY PATIENT IS ON THE SCHEDULE Mony Laboy Allergies As of Date: 04/21/2024 Noted Allergy Reaction SULFA (SULFONAMIDE ANTIBIOTICS) 04/11/2005 7 - Swelling 10 - Anaphylaxis Comments: Tongue/ throat swelled PHENERGAN PLAIN 03/18/2013 11 - Vomiting Comments: Vomiting HYDROCODONE-ACETAMIN OPHEN 12/30/2011 8 - GI Upset Comments: NAUSEA PROCARDIA (NIFEDIPINE) 06/26/2020 7 - Swelling Comments: legs Date Reviewed: 03/23/2024 Reviewed by: Rosalba Arriaga LPN - Fully Assessed Reason for Visit: Patient Update [1234] Cmt: CALLED PATIENT SPOKE TO DAUGHTER AND SPENSER THEY BOTH CONFIRMED 04/27/24 IS A GOOD DAY Prescriptions as of 04/21/2024 - pravastatin (PRAVACHOL) 20 mg tablet Take 1 tablet by mouth daily at bedtime. - potassium chloride 20 mEq TbER Take 1 tablet by mouth once daily. - rOPINIRole (REQUIP) 4 mg tablet Take 1 tablet by mouth daily at bedtime. - spironolactone (ALDACTONE) 50 mg tablet Take 1 tablet by mouth once daily. - nortriptyline (PAMELOR) 75 mg capsule Take 1 capsule by mouth daily at bedtime. - Magnesium 250 mg tab Take 1 tablet by mouth once daily. - lisinopril (ZESTRIL) 10 mg tablet Take 1 tablet by mouth once daily. - cholecalciferol, vitamin D3, (VITAMIN D3 ORAL) Take by mouth. - cyanocobalamin (VITAMIN B-12) 1,000 mcg tab Take 1 tablet by mouth once daily. - pregabalin (LYRICA) 50 mg capsule Take one pill twice daily - aspirin, enteric coated (ADULT LOW DOSE ASPIRIN) 81 mg EC tablet Take 1 tablet by mouth once daily. - calcium carbonate(CALTRATE 600 600 MG (1,500 MG) TAB) Problem List As Of Date 04/21/2024 Noted Resolved Osteopenia, senile [M85.80] 07/02/2005 Bilateral leg edema [R60.0] 07/02/2005 Family history of malignant neoplasm of gastroi*07/02/2005 03/27/2016 Insomnia, unspecified [G47.00] 07/02/2005 Actinic Keratoses: Premalignant AK's [L57.0] 03/27/2006 Other chronic dermatitis due to solar radiation*03/27/2006 SOLAR LENGINES////DYSCHROM IA OTHER [L81.9] 03/27/2006 03/22/2013 XEROSIS////SEBACEOUS GLAND DIS NEC [L73.8] 03/27/2006 03/22/2013 Other seborrheic keratosis [L82.1] 06/23/2006 Routine general medical examination at [facility]*08/24/2008 07/29/2011 Class: Chronic Routine gynecological examination [Z01.419] 08/24/2008 07/29/2011 Class: Chronic Restless leg syndrome [G25.81] Hand joint stiff [M25.649] 02/11/2012 Lumbar disc herniation [M51.26] 09/15/2012 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 [M43.16]09/15/2012 Hypokalemia [E87.6] 10/20/2012 Spondylolisthesis at L5-S1 level [M43.17] 10/20/2012 Solar lentigo [L81.4] 03/22/2013 Xerosis cutis [L85.3] 03/22/2013 Personal history of other malignant neoplasm of*03/22/2013 Other psoriasis [L40.8] 04/16/2013 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] 04/10/2013 Mixed hyperlipidemia [E78.2] 10/13/2014 Routine gynecological examination [Z01.419] 10/13/2014 03/27/2016 Colon cancer screening [Z12.11] 10/13/2014 03/27/2016 Well adult exam [Z00.00] 10/13/2014 03/27/2016 Essential hypertension with goal blood pressure*08/14/2015 Encounter for screening mammogram for breast ca*02/21/2016 03/27/2016 Non morbid obesity [E66.9] 03/29/2016 Vitamin D deficiency [E55.9] 08/24/2016 Medicare annual wellness visit, subsequent [Z00*03/12/2017 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 18 Multiple thyroid nodules [E04.2] 09/15/2017 Sensorineural hearing loss, asymmetrical [H90.3]10/08/2017 Lumbar stenosis [M48.061] Internal hemorrhoids [K64.8] Medication management [Z79.899] 09/22/2018 Raynaud's phenomenon without gangrene [I73.00] 06/07/2020 Carpal tunnel syndrome, left [G56.02] 08/17/2020 Valvular heart disease [I38] 10/20/2020 S/P lumbar fusion [Z98.1] 04/16/2021 05/28/2021 Advance directive discussed with patient [Z71.8*04/23/2021 Vertigo [R42] 12/03/2021 Living will on file at physician's office [Z78.*07/22/2022 Spinal stenosis of lumbar region [M48.061] 06/17/2023 Hyperuricemia [E79.0] 07/03/2023 Lumbar radiculopathy [M54.16] 07/25/2023 Spinal stenosis, lumbar region, without neuroge*07/25/2023 Lumbar spondylosis [M47.816] 07/25/2023 Anemia, chronic disease [D63.8] 11/09/2023 Vitamin B12 deficiency [E53.8] 11/09/2023 Hyponatremia [E87.1] 12/01/2023 Hypomagnesemia [E83.42] 12/18/2023 Encounter Status:Closed by MONY LABOY on 04/21/24 [facility] CNPN Telephone (AGSPINE3) JERSEYSPENSER PICKENS ([id number]) 1940 F Date Time Provider Department 04/21/24 DANII ROCA AGSPINE3 During your visit today, we recorded the following information about you: Mony Laboy 04/21/2024 1:15 PM Signed PLEASE SEND IN XANAX AND ANTIBIOTIC TO e- [id number] [place] [address] - [id number] [facility] - [phone] [facility] [phone] Danii Roca MD, PhD 04/22/2024 5:27 AM Signed Chart and PDMP reviewed. Pt is scheduled for SCS trial on 04/27/24. Order for Xanax 0.5mg SL #2 tablets sent to patients pharmacy to be used prior to their scheduled procedure(s). Pt is advised to pick-up this medication on the day prior to the procedure and to bring it with them to the procedure appointment. This medication should be taken in the presence of nursing staff only prior to their procedure. Order for Keflex 500mg TID for 5 days sent to patients pharmacy on file for each of her procedures. Pt is advised to start this medication 1 day prior to each of her procedures and to complete the 5 day course after each device placement.vice placement. Danii Roca MD, PhD 04/22/2024 5:27 AM Signed Addended by: DANII ROCA on: 04/22/2024 05:27 AM Modules accepted: Orders Allergies As of Date: 04/21/2024 Noted Allergy Reaction SULFA (SULFONAMIDE ANTIBIOTICS) 04/11/2005 7 - Swelling 10 - Anaphylaxis Comments: Tongue/ throat swelled PHENERGAN [place]IN 03/18/2013 11 - Vomiting Comments: Vomiting HYDROCODONE-ACETAMIN OPHEN 12/30/2011 8 - GI Upset Comments: NAUSEA PROCARDIA (NIFEDIPINE) 06/26/2020 7 - Swelling Comments: legs Date Reviewed: 03/23/2024 Reviewed by: Rosalba Arriaga LPN - Fully Assessed Reason for Visit: Patient Update [1234] Cmt: SCS TRIAL SCHEDULE Primary Visit Diagnosis: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 Please start 1 day prior to your scheduled procedure in the morning, and complete the full 5 day course.Disp: 15 capsuleRfl: 0 Prescriptions as of 04/22/2024 - ALPRAZolam 0.5 mg dissolvable tablet BRING 2 TABLETS TO PROCEDURE LOCATION ON THE DAY OF PROCEDURE, TO BE ADMINISTERED BY STAFF - cephALEXin (KEFLEX) 500 mg capsule Take 1 capsule by mouth three times a day. Please start 1 day prior to your scheduled procedure in the morning, and complete the full 5 day course. - pravastatin (PRAVACHOL) 20 mg tablet Take 1 tablet by mouth daily at bedtime. - potassium chloride 20 mEq TbER Take 1 tablet by mouth once daily. - rOPINIRole (REQUIP) 4 mg tablet Take 1 tablet by mouth daily at bedtime. - spironolactone (ALDACTONE) 50 mg tablet Take 1 tablet by mouth once daily. - nortriptyline (PAMELOR) 75 mg capsule Take 1 capsule by mouth daily at bedtime. - Magnesium 250 mg tab Take 1 tablet by mouth once daily. - lisinopril (ZESTRIL) 10 mg tablet Take 1 tablet by mouth once daily. - cholecalciferol, vitamin D3, (VITAMIN D3 ORAL) Take by mouth. - cyanocobalamin (VITAMIN B-12) 1,000 mcg tab Take 1 tablet by mouth once daily. - pregabalin (LYRICA) 50 mg capsule Take one pill twice daily - aspirin, enteric coated (ADULT LOW DOSE ASPIRIN) 81 mg EC tablet Take 1 tablet by mouth once daily. - calcium carbonate(CALTRATE 600 600 MG (1,500 MG) TAB) Problem List As Of Date 04/21/2024 Noted Resolved Osteopenia, senile [M85.80] 07/02/2005 Bilateral leg edema [R60.0] 07/02/2005 Family history of malignant neoplasm of gastroi*07/02/2005 03/27/2016 Insomnia, unspecified [G47.00] 07/02/2005 Actinic Keratoses: Premalignant AK's [L57.0] 03/27/2006 Other chronic dermatitis due to solar radiation*03/27/2006 SOLAR LENGINES////DYSCHROM IA OTHER [L81.9] 03/27/2006 03/22/2013 XEROSIS////SEBACEOUS GLAND DIS NEC [L73.8] 03/27/2006 03/22/2013 Other seborrheic keratosis [L82.1] 06/23/2006 Routine general medical examination at [facility]*08/24/2008 07/29/2011 Class: Chronic Routine gynecological examination [Z01.419] 08/24/2008 07/29/2011 Class: Chronic Restless leg syndrome [G25.81] Hand joint stiff [M25.649] 02/11/2012 Lumbar disc herniation [M51.26] 09/15/2012 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 [M43.16]09/15/2012 Hypokalemia [E87.6] 10/20/2012 Spondylolisthesis at L5-S1 level [M43.17] 10/20/2012 Solar lentigo [L81.4] 03/22/2013 Xerosis cutis [L85.3] 03/22/2013 Personal history of other malignant neoplasm of*03/22/2013 Other psoriasis [L40.8] 04/16/2013 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] 04/10/2013 Mixed hyperlipidemia [E78.2] 10/13/2014 Routine gynecological examination [Z01.419] 10/13/2014 03/27/2016 Colon cancer screening [Z12.11] 10/13/2014 03/27/2016 Well adult exam [Z00.00] 10/13/2014more content not included)... Normal [facility] CNPNon 04-20-2024 CNPN Telephone (AGSPINE3) SPENSER PUTNAM ([id number]) 1940 F Date Time Provider Department 04/20/24 DANII ROCA AGSPINE3 During your visit today, we recorded the following information about you: Thony Ta 04/20/2024 2:02 PM Signed Patient would like a call to discuss progress on her SCS procedure. She has not heard from anyone. Thony Ta Allergies As of Date: 04/20/2024 Noted Allergy Reaction SULFA (SULFONAMIDE ANTIBIOTICS) 04/11/2005 7 - Swelling 10 - Anaphylaxis Comments: Tongue/ throat swelled PHENERGAN [place]IN 03/18/2013 11 - Vomiting Comments: Vomiting HYDROCODONE-ACETAMIN OPHEN 12/30/2011 8 - GI Upset Comments: NAUSEA PROCARDIA (NIFEDIPINE) 06/26/2020 7 - Swelling Comments: legs Date Reviewed: 03/23/2024 Reviewed by: Rosalba Arriaga LPN - Fully Assessed Reason for Visit: [facility] update [Other] Prescriptions as of 04/20/2024 - pravastatin (PRAVACHOL) 20 mg tablet Take 1 tablet by mouth daily at bedtime. - potassium chloride 20 mEq TbER Take 1 tablet by mouth once daily. - rOPINIRole (REQUIP) 4 mg tablet Take 1 tablet by mouth daily at bedtime. - spironolactone (ALDACTONE) 50 mg tablet Take 1 tablet by mouth once daily. - nortriptyline (PAMELOR) 75 mg capsule Take 1 capsule by mouth daily at bedtime. - Magnesium 250 mg tab Take 1 tablet by mouth once daily. - lisinopril (ZESTRIL) 10 mg tablet Take 1 tablet by mouth once daily. - cholecalciferol, vitamin D3, (VITAMIN D3 ORAL) Take by mouth. - cyanocobalamin (VITAMIN B-12) 1,000 mcg tab Take 1 tablet by mouth once daily. - pregabalin (LYRICA) 50 mg capsule Take one pill twice daily - aspirin, enteric coated (ADULT LOW DOSE ASPIRIN) 81 mg EC tablet Take 1 tablet by mouth once daily. - calcium carbonate(CALTRATE 600 600 MG (1,500 MG) TAB) Problem List As Of Date 04/20/2024 Noted Resolved Osteopenia, senile [M85.80] 07/02/2005 Bilateral leg edema [R60.0] 07/02/2005 Family history of malignant neoplasm of gastroi*07/02/2005 03/27/2016 Insomnia, unspecified [G47.00] 07/02/2005 Actinic Keratoses: Premalignant AK's [L57.0] 03/27/2006 Other chronic dermatitis due to solar radiation*03/27/2006 SOLAR LENGINES////DYSCHROM IA OTHER [L81.9] 03/27/2006 03/22/2013 XEROSIS////SEBACEOUS GLAND DIS NEC [L73.8] 03/27/2006 03/22/2013 Other seborrheic keratosis [L82.1] 06/23/2006 Routine general medical examination at [facility]*08/24/2008 07/29/2011 Class: Chronic Routine gynecological examination [Z01.419] 08/24/2008 07/29/2011 Class: Chronic Restless leg syndrome [G25.81] Hand joint stiff [M25.649] 02/11/2012 Lumbar disc herniation [M51.26] 09/15/2012 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 [M43.16]09/15/2012 Hypokalemia [E87.6] 10/20/2012 Spondylolisthesis at L5-S1 level [M43.17] 10/20/2012 Solar lentigo [L81.4] 03/22/2013 Xerosis cutis [L85.3] 03/22/2013 Personal history of other malignant neoplasm of*03/22/2013 Other psoriasis [L40.8] 04/16/2013 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] 04/10/2013 Mixed hyperlipidemia [E78.2] 10/13/2014 Routine gynecological examination [Z01.419] 10/13/2014 03/27/2016 Colon cancer screening [Z12.11] 10/13/2014 03/27/2016 Well adult exam [Z00.00] 10/13/2014 03/27/2016 Essential hypertension with goal blood pressure*08/14/2015 Encounter for screening mammogram for breast ca*02/21/2016 03/27/2016 Non morbid obesity [E66.9] 03/29/2016 Vitamin D deficiency [E55.9] 08/24/2016 Medicare annual wellness visit, subsequent [Z00*03/12/2017 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 18 Multiple thyroid nodules [E04.2] 09/15/2017 Sensorineural hearing loss, asymmetrical [H90.3]10/08/2017 Lumbar stenosis [M48.061] Internal hemorrhoids [K64.8] Medication management [Z79.899] 09/22/2018 Raynaud's phenomenon without gangrene [I73.00] 06/07/2020 Carpal tunnel syndrome, left [G56.02] 08/17/2020 Valvular heart disease [I38] 10/20/2020 S/P lumbar fusion [Z98.1] 04/16/2021 05/28/2021 Advance directive discussed with patient [Z71.8*04/23/2021 Vertigo [R42] 12/03/2021 Living will on file at physician's office [Z78.*07/22/2022 Spinal stenosis of lumbar region [M48.061] 06/17/2023 Hyperuricemia [E79.0] 07/03/2023 Lumbar radiculopathy [M54.16] 07/25/2023 Spinal stenosis, lumbar region, without neuroge*07/25/2023 Lumbar spondylosis [M47.816] 07/25/2023 Anemia, chronic disease [D63.8] 11/09/2023 Vitamin B12 deficiency [E53.8] 11/09/2023 Hyponatremia [E87.1] 12/01/2023 Hypomagnesemia [E83.42] 12/18/2023 Encounter Status:Closed by THONY TA on 04/20/24 [facility] CNPNahomi 03-25-2024 CNPN Telephone (AGSPINE3) SPENSER PUTNAM ([id number]) 1940 F Date Time Provider Department 03/25/24 DANII ROCA AGSPINE3 During your visit today, we recorded the following information about you: Rosalba Arriaga LPN 03/25/2024 1:59 PM Signed Attempted to call patient to follow-up from procedure, no answer. Message left to return call with any questions or concerns. Rosalba Arriaga LPN Allergies As of Date: 03/25/2024 Noted Allergy Reaction SULFA (SULFONAMIDE ANTIBIOTICS) 04/11/2005 7 - Swelling 10 - Anaphylaxis Comments: Tongue/ throat swelled PHENERGAN [place]IN 03/18/2013 11 - Vomiting Comments: Vomiting HYDROCODONE-ACETAMIN OPHEN 12/30/2011 8 - GI Upset Comments: NAUSEA PROCARDIA (NIFEDIPINE) 06/26/2020 7 - Swelling Comments: legs Date Reviewed: 03/23/2024 Reviewed by: Rosalba Arriaga LPN - Fully Assessed Reason for Visit: Procedure Follow Up [1139] Cmt: SCOTT TEFESI Prescriptions as of 03/25/2024 - rOPINIRole (REQUIP) 4 mg tablet Take 1 tablet by mouth daily at bedtime. - spironolactone (ALDACTONE) 50 mg tablet Take 1 tablet by mouth once daily. - celecoxib (CELEBREX) 200 mg capsule Take 1 capsule by mouth once daily. - nortriptyline (PAMELOR) 75 mg capsule Take 1 capsule by mouth daily at bedtime. - Magnesium 250 mg tab Take 1 tablet by mouth once daily. - lisinopril (ZESTRIL) 10 mg tablet Take 1 tablet by mouth once daily. - cholecalciferol, vitamin D3, (VITAMIN D3 ORAL) Take by mouth. - cyanocobalamin (VITAMIN B-12) 1,000 mcg tab Take 1 tablet by mouth once daily. - pregabalin (LYRICA) 50 mg capsule Take one pill twice daily - pravastatin (PRAVACHOL) 20 mg tablet Take 1 tablet by mouth daily at bedtime. - potassium chloride 20 mEq TbER Take 1 tablet by mouth once daily. - aspirin, enteric coated (ADULT LOW DOSE ASPIRIN) 81 mg EC tablet Take 1 tablet by mouth once daily. - calcium carbonate(CALTRATE 600 600 MG (1,500 MG) TAB) Problem List As Of Date 03/25/2024 Noted Resolved Osteopenia, senile [M85.80] 07/02/2005 Bilateral leg edema [R60.0] 07/02/2005 Family history of malignant neoplasm of gastroi*07/02/2005 03/27/2016 Insomnia, unspecified [G47.00] 07/02/2005 Actinic Keratoses: Premalignant AK's [L57.0] 03/27/2006 Other chronic dermatitis due to solar radiation*03/27/2006 SOLAR LENGINES////DYSCHROM IA OTHER [L81.9] 03/27/2006 03/22/2013 XEROSIS////SEBACEOUS GLAND DIS NEC [L73.8] 03/27/2006 03/22/2013 Other seborrheic keratosis [L82.1] 06/23/2006 Routine general medical examination at [facility]*08/24/2008 07/29/2011 Class: Chronic Routine gynecological examination [Z01.419] 08/24/2008 07/29/2011 Class: Chronic Restless leg syndrome [G25.81] Hand joint stiff [M25.649] 02/11/2012 Lumbar disc herniation [M51.26] 09/15/2012 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 [M43.16]09/15/2012 Hypokalemia [E87.6] 10/20/2012 Spondylolisthesis at L5-S1 level [M43.17] 10/20/2012 Solar lentigo [L81.4] 03/22/2013 Xerosis cutis [L85.3] 03/22/2013 Personal history of other malignant neoplasm of*03/22/2013 Other psoriasis [L40.8] 04/16/2013 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] 04/10/2013 Mixed hyperlipidemia [E78.2] 10/13/2014 Routine gynecological examination [Z01.419] 10/13/2014 03/27/2016 Colon cancer screening [Z12.11] 10/13/2014 03/27/2016 Well adult exam [Z00.00] 10/13/2014 03/27/2016 Essential hypertension with goal blood pressure*08/14/2015 Encounter for screening mammogram for breast ca*02/21/2016 03/27/2016 Non morbid obesity [E66.9] 03/29/2016 Vitamin D deficiency [E55.9] 08/24/2016 Medicare annual wellness visit, subsequent [Z00*03/12/2017 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 18 Multiple thyroid nodules [E04.2] 09/15/2017 Sensorineural hearing loss, asymmetrical [H90.3]10/08/2017 Lumbar stenosis [M48.061] Internal hemorrhoids [K64.8] Medication management [Z79.899] 09/22/2018 Raynaud's phenomenon without gangrene [I73.00] 06/07/2020 Carpal tunnel syndrome, left [G56.02] 08/17/2020 Valvular heart disease [I38] 10/20/2020 S/P lumbar fusion [Z98.1] 04/16/2021 05/28/2021 Advance directive discussed with patient [Z71.8*04/23/2021 Vertigo [R42] 12/03/2021 Living will on file at physician's office [Z78.*07/22/2022 Spinal stenosis of lumbar region [M48.061] 06/17/2023 Hyperuricemia [E79.0] 07/03/2023 Lumbar radiculopathy [M54.16] 07/25/2023 Spinal stenosis, lumbar region, without neuroge*07/25/2023 Lumbar spondylosis [M47.816] 07/25/2023 Anemia, chronic disease [D63.8] 11/09/2023 Vitamin B12 deficiency [E53.8] 11/09/2023 Hyponatremia [E87.1] 12/01/2023 Hypomagnesemia [E83.42] 12/18/2023 Encounter Status:Closed by ROSALBA ARRIAGA on 03/25/24 [facility] CNPNahomi 03-22-2024 [facility] SPENSER PUTNAME ([id number]) 1940 F Date Time Provider Department 03/22/24 [facility] During your visit today, we recorded the following information about you: Destini Lay PA-C 03/22/2024 8:43 AM Signed Let patient know that her labs were stable. DOUG Calvillo Sherill A, LPN 03/22/2024 9:00 AM Signed Pt notified of same. Jonas Milan LPN Allergies As of Date: 03/22/2024 Noted Allergy Reaction SULFA (SULFONAMIDE ANTIBIOTICS) 04/11/2005 7 - Swelling 10 - Anaphylaxis Comments: Tongue/ throat swelled PHENERGAN [place]IN 03/18/2013 11 - Vomiting Comments: Vomiting HYDROCODONE-ACETAMIN OPHEN 12/30/2011 8 - GI Upset Comments: NAUSEA PROCARDIA (NIFEDIPINE) 06/26/2020 7 - Swelling Comments: legs Date Reviewed: 03/19/2024 Reviewed by: Jonas Milan LPN - Fully Assessed Reason for Visit: Results [95] Prescriptions as of 03/22/2024 - rOPINIRole (REQUIP) 4 mg tablet Take 1 tablet by mouth daily at bedtime. - spironolactone (ALDACTONE) 50 mg tablet Take 1 tablet by mouth once daily. - celecoxib (CELEBREX) 200 mg capsule Take 1 capsule by mouth once daily. - nortriptyline (PAMELOR) 75 mg capsule Take 1 capsule by mouth daily at bedtime. - Magnesium 250 mg tab Take 1 tablet by mouth once daily. - lisinopril (ZESTRIL) 10 mg tablet Take 1 tablet by mouth once daily. - cholecalciferol, vitamin D3, (VITAMIN D3 ORAL) Take by mouth. - cyanocobalamin (VITAMIN B-12) 1,000 mcg tab Take 1 tablet by mouth once daily. - pregabalin (LYRICA) 50 mg capsule Take one pill twice daily - pravastatin (PRAVACHOL) 20 mg tablet Take 1 tablet by mouth daily at bedtime. - potassium chloride 20 mEq TbER Take 1 tablet by mouth once daily. - aspirin, enteric coated (ADULT LOW DOSE ASPIRIN) 81 mg EC tablet Take 1 tablet by mouth once daily. - calcium carbonate(CALTRATE 600 600 MG (1,500 MG) TAB) Problem List As Of Date 03/22/2024 Noted Resolved Osteopenia, senile [M85.80] 07/02/2005 Bilateral leg edema [R60.0] 07/02/2005 Family history of malignant neoplasm of gastroi*07/02/2005 03/27/2016 Insomnia, unspecified [G47.00] 07/02/2005 Actinic Keratoses: Premalignant AK's [L57.0] 03/27/2006 Other chronic dermatitis due to solar radiation*03/27/2006 SOLAR LENGINES////DYSCHROM IA OTHER [L81.9] 03/27/2006 03/22/2013 XEROSIS////SEBACEOUS GLAND DIS NEC [L73.8] 03/27/2006 03/22/2013 Other seborrheic keratosis [L82.1] 06/23/2006 Routine general medical examination at [facility]*08/24/2008 07/29/2011 Class: Chronic Routine gynecological examination [Z01.419] 08/24/2008 07/29/2011 Class: Chronic Restless leg syndrome [G25.81] Hand joint stiff [M25.649] 02/11/2012 Lumbar disc herniation [M51.26] 09/15/2012 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 [M43.16]09/15/2012 Hypokalemia [E87.6] 10/20/2012 Spondylolisthesis at L5-S1 level [M43.17] 10/20/2012 Solar lentigo [L81.4] 03/22/2013 Xerosis cutis [L85.3] 03/22/2013 Personal history of other malignant neoplasm of*03/22/2013 Other psoriasis [L40.8] 04/16/2013 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] 04/10/2013 Mixed hyperlipidemia [E78.2] 10/13/2014 Routine gynecological examination [Z01.419] 10/13/2014 03/27/2016 Colon cancer screening [Z12.11] 10/13/2014 03/27/2016 Well adult exam [Z00.00] 10/13/2014 03/27/2016 Essential hypertension with goal blood pressure*08/14/2015 Encounter for screening mammogram for breast ca*02/21/2016 03/27/2016 Non morbid obesity [E66.9] 03/29/2016 Vitamin D deficiency [E55.9] 08/24/2016 Medicare annual wellness visit, subsequent [Z00*03/12/2017 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 18 Multiple thyroid nodules [E04.2] 09/15/2017 Sensorineural hearing loss, asymmetrical [H90.3]10/08/2017 Lumbar stenosis [M48.061] Internal hemorrhoids [K64.8] Medication management [Z79.899] 09/22/2018 Raynaud's phenomenon without gangrene [I73.00] 06/07/2020 Carpal tunnel syndrome, left [G56.02] 08/17/2020 Valvular heart disease [I38] 10/20/2020 S/P lumbar fusion [Z98.1] 04/16/2021 05/28/2021 Advance directive discussed with patient [Z71.8*04/23/2021 Vertigo [R42] 12/03/2021 Living will on file at physician's office [Z78.*07/22/2022 Spinal stenosis of lumbar region [M48.061] 06/17/2023 Hyperuricemia [E79.0] 07/03/2023 Lumbar radiculopathy [M54.16] 07/25/2023 Spinal stenosis, lumbar region, without neuroge*07/25/2023 Lumbar spondylosis [M47.816] 07/25/2023 Anemia, chronic disease [D63.8] 11/09/2023 Vitamin B12 deficiency [E53.8] 11/09/2023 Hyponatremia [E87.1] 12/01/2023 Hypomagnesemia [E83.42] 12/18/2023 Encounter Status:Closed by JONAS MILAN on 03/22/24 Normal [facility] CBC W Auto Differential pane l (Bld)on 03-19-2024 Basophils (Bld) [#/Vol] 0.03 10*3/uL Normal <0.11 [facility] Comment on above: Order Comment: Speci men Type: BLOOD SPECIMENOrdering Facility: [facility] Address: [address] [place] [address] Performed By: #### 5 7021-8 ####[facility] LABCLIA [id number] [place] [address] [place] Basophils/100 WBC (Bld) 0.3 % Normal [facility] Comment on above: Order Comment: Speci men Type: BLOOD SPECIMENOrdering Facility: [facility] Address: [address] [place] [address] Performed By: #### 5 7021-8 ####[facility] LABCLIA [id number] [place] [address] [place] Differential cell count method Nom (Bld) Auto Normal [facility] Comment on above: Order Comment: Speci men Type: BLOOD SPECIMENOrdering Facility: [facility] Address: [address] [place] [address] Performed By: #### 5 7021-8 ####[facility] LABCLIA [id number] [place] [address] [place] Eosinophils (Bld) [#/Vol] 0.08 10*3/uL Normal <0.46 [facility] Comment on above: Order Comment: Speci men Type: BLOOD SPECIMENOrdering Facility: [facility] Address: [address] [place] [address] Performed By: #### 5 7021-8 ####[facility] LABCLIA [id number] [place] [address] [place] Eosinophils/100 WBC (Bld) 0.9 % Normal [facility] Comment on above: Order Comment: Speci men Type: BLOOD SPECIMENOrdering Facility: [facility] Address: [address] [place] [address] Performed By: #### 5 7021-8 ####[facility] LABCLIA [id number] [place] [address] [place] Erythrocyte distribution width (RBC) [Ratio] 13.2 % Normal 11.5-15.0 [facility] Comment on above: Order Comment: Speci men Type: BLOOD SPECIMENOrdering Facility: [facility] Address: [address] [place] [address] Performed By: #### 5 7021-8 ####[facility] LABCLIA [id number] [place] [address] [place] Hematocrit (Bld) [Volume fraction] 35.8 % Low 36.0-46.0 [facility] Comment on above: Order Comment: Speci men Type: BLOOD SPECIMENOrdering Facility: [facility] Address: [address] [place] [address] Performed By: #### 5 7021-8 ####[facility] LABCLIA [id number] [place] [address] [place] Hemoglobin (Bld) [Mass/Vol] 11.2 g/dL Low 11.5-15.5 [facility] Comment on above: Order Comment: Speci men Type: BLOOD SPECIMENOrdering Facility: [facility] Address: [address] [place] [address] Performed By: #### 5 7021-8 ####[facility] LABCLIA [id number] [place] [address] [place] Immature granulocytes (Bld) [#/Vol] 10*3/uL Normal <0.10 [facility] Comment on above: Order Comment: Speci men Type: BLOOD SPECIMENOrdering Facility: [facility] Address: [address] [place] [address] Performed By: #### 5 7021-8 ####[facility] LABCLIA [id number] [place] [address] [place] Immature granulocytes/100 WBC (Bld) 0.2 % Normal [facility] Comment on above: Order Comment: Speci men Type: BLOOD SPECIMENOrdering Facility: [facility] Address: [address] [place] [address] Performed By: #### 5 7021-8 ####[facility] LABCLIA [id number] [place] [address] [place] Lymphocytes (Bld) [#/Vol] 2.28 10*3/uL Normal 1.00-4.00 [facility] Comment on above: Order Comment: Speci men Type: BLOOD SPECIMENOrdering Facility: [facility] Address: [address] [place] [address] Performed By: #### 5 7021-8 ####[facility] LABCLIA [id number] [place] [address] [place] Lymphocytes/100 WBC (Bld) 25.3 % Normal [facility] Comment on above: Order Comment: Speci men Type: BLOOD SPECIMENOrdering Facility: [facility] Address: [address] [place] [address] Performed By: #### 5 7021-8 ####[facility] LABCLIA [id number] [place] [address] [place] MCH (RBC) [Entitic mass] 29.2 pg Normal 26.0-34.0 [facility] Comment on above: Order Comment: Speci men Type: BLOOD SPECIMENOrdering Facility: [facility] Address: [address] [place] [address] Performed By: #### 5 7021-8 ####[facility] LABIA [id number] [place] [address] [place] MCHC (RBC) [Mass/Vol] 31.3 g/dL Normal 30.5-36.0 [facility] Comment on above: Order Comment: Speci men Type: BLOOD SPECIMENOrdering Facility: [facility] Address: [address] [place] [address] Performed By: #### 5 7021-8 ####[facility] LABIA [id number] [place] [address] [place] MCV (RBC) [Entitic vol] 93.2 fL Normal 80.0-100.0 [facility] Comment on above: Order Comment: Speci men Type: BLOOD SPECIMENOrdering Facility: [facility] Address: [address] [place] [address] Performed By: #### 5 7021-8 ####[facility] LABCLIA [id number] [place] [address] [place] Monocytes (Bld) [#/Vol] 0.65 10*3/uL Normal <0.87 [facility] Comment on above: Order Comment: Speci men Type: BLOOD SPECIMENOrdering Facility: [facility] Address: [address] [place] [address] Performed By: #### 5 7021-8 ####[facility] LABCLIA [id number] [place] [address] [place] Monocytes/100 WBC (Bld) 7.2 % Normal [facility] Comment on above: Order Comment: Speci men Type: BLOOD SPECIMENOrdering Facility: [facility] Address: [address] [place] [address] Performed By: #### 5 7021-8 ####[facility] LABCLIA [id number] [place] [address] [place] Neutrophils (Bld) [#/Vol] 5.95 10*3/uL Normal 1.45-7.50 [facility] Comment on above: Order Comment: Speci men Type: BLOOD SPECIMENOrdering Facility: [facility] Address: [address] [place] [address] Performed By: #### 5 7021-8 ####[facility] LABCLIA [id number] [place] [address] [place] Neutrophils/100 WBC (Bld) 66.1 % Normal [facility] Comment on above: Order Comment: Speci men Type: BLOOD SPECIMENOrdering Facility: [facility] Address: [address] [place] [address] Performed By: #### 5 7021-8 ####[facility] LABCLIA [id number] [place] [address] [place] Nucleated RBC (Bld) [#/Vol] 10*3/uL Normal <0.01 [facility] Comment on above: Order Comment: Speci men Type: BLOOD SPECIMENOrdering Facility: [facility] Address: [address] [place] [address] Performed By: #### 5 7021-8 ####[facility] LABCLIA [id number] [place] [address] [place] Nucleated RBC/100 WBC (Bld) [Ratio] 0.0 /100 WBC Normal [facility] Comment on above: Order Comment: Speci men Type: BLOOD SPECIMENOrdering Facility: [facility] Address: [address] [place] [address] Performed By: #### 5 7021-8 ####[facility] LABIA [id number] [place] [address] [place] Platelet mean volume (Bld) [Entitic vol] 9.2 fL Normal 9.0-12.7 [facility] Comment on above: Order Comment: Speci men Type: BLOOD SPECIMENOrdering Facility: [facility] Address: [address] [place] [address] Performed By: #### 5 7021-8 ####[facility] LABIA [id number] [place] [address] [place] Platelets (Bld) [#/Vol] 244 10*3/uL Normal 150-400 [facility] Comment on above: Order Comment: Speci men Type: BLOOD SPECIMENOrdering Facility: [facility] Address: [address] [place] [address] Performed By: #### 5 7021-8 ####[facility] LABIA [id number] [place] [address] [place] RBC (Bld) [#/Vol] 3.84 10*6/uL Low 3.90-5.20 [facility] Comment on above: Order Comment: Speci men Type: BLOOD SPECIMENOrdering Facility: [facility] Address: [address] [place] [address] Performed By: #### 5 7021-8 ####[facility] LABCLIA [id number] [place] [address] [place] WBC (Bld) [#/Vol] 9.01 10*3/uL Normal 3.70-11.00 [facility] Comment on above: Order Comment: Speci men Type: BLOOD SPECIMENOrdering Facility: [facility] Address: [address] [place] [address] Performed By: #### 5 7021-8 ####[facility] LABCLIA [id number] KARTHIK BERNSTEINDESK [id number] [facility] CNOVon 03-19-2024 CNOV Office Visit (FAMPWS) NADINEHIEUSPENSER MANN ([id number]) 1940 F Date Time Provider Department 03/19/24 1:00 PM DESTINI LAY FAMPWS During your visit today, we recorded the following information about you: Temperature Pulse Respiration Blood pressure 97.8 degrees 76/minute 16/minute 110/60 Weight 64.4 kg Destini Lay PA-C 03/19/2024 1:36 PM Signed Destini Lay PA-C 03/19/2024 1:36 PM Signed Chief Complaint Patient presents with: 6 Month Exam HPI Spenser Putnam is a 83 year old female who presents here today for Chronic Medical Conditions.. Patient with hx HTN, hyperlipidemia, RLS, insomnia, vit b12 def, OA and those as below. No concerns today Past medical history, appointments, medications, allergies reviewed. 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 Macias, Rt anterior shoulder, Gilberto III, pT1a, pNX, pM N/A Mixed hyperlipidemia 10/13/2014 Multiple thyroid nodules 09/15/2017 CT neck09/2017 7 mm nodule, [place] .2018 multiple small nodules repeat 09/2019 Non morbid obesity 03/29/2016 Osteopenia, senile 07/02/2005 SEE DEXA 07/15 Other chronic dermatitis due to solar radiation 03/27/2006 Other psoriasis 04/16/2013 Other seborrheic keratosis 06/23/2006 Personal history of other malignant neoplasm of skin 03/22/2013 Raynaud's phenomenon without gangrene 06/07/2020 suspected Restless leg syndrome Sensorineural hearing loss, asymmetrical 10/08/2017 Solar lentigo 03/22/2013 Spinal stenosis of lumbar region 06/17/2023 Spinal stenosis, lumbar region, without neurogenic claudication 07/25/2023 Spondylolisthesis at L5-S1 level 10/20/2012 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 09/15/2012 Vertigo 12/03/2021 MRI normal and patient declined further eval as of 12/03/21 Vitamin B12 deficiency 11/09/2023 Vitamin D deficiency 08/24/2016 Xerosis cutis 03/22/2013 Previous Surgical History PAST SURGICAL HISTORY Procedure Laterality Date ABDOMINAL SURGERY HX BACK SURGERY HX 01/23/2021 lateral lumbar interbody fusion L3-4 CHOLECYSTECTOMY age 52 +/- laparoscopic cholecystectomy COLONOSCOPY 04/29/2013 Dr. Patton, repeat 5 yrs COLONOSCOPY FLX DX W/COLLJ SPEC WHEN PFRMD 07/09/2006 COLONOSCOPY FLX DX W/COLLJ SPEC WHEN PFRMD 04/29/2013 internal hemorrhoids, q5y for FHx COLONOSCOPY, GI 05/02/2000 FHx, repeat q5y DILATION AND CURETTAGE DXAND/THER NONOBSTETRIC Dilation AND curettage EYE SURGERY HX PAST SURGICAL HISTORY OF 12/2011 squamous cell CA rt hand.left LE PAST SURGICAL HISTORY OF 04/2012 rt CTR-- endoscopic PAST SURGICAL HISTORY OF 2013 lumbar surgery- fusion PAST SURGICAL HISTORY OF 2014 excision melanoma right shoulder PAST SURGICAL HISTORY OF Right 2017 bunionectoy TONSILLECTOMY HX TONSILLECTOMY PRIMARY/SECONDARY Tonsillectomy Family History FAMILY HISTORY Problem Relation Age of Onset Colon Cancer Mother ~70 Hypertension Mother Thyroid Mother Colon Cancer Father ~70 Hypertension Father Stroke Father Heart Father Hx of CHF Coronary Artery Disease Maternal Grandmother Hx of HI Diabetes Daughter Type I Patient Allergies ALLERGIES Allergen Reactions Sulfa (Sulfonamide * Swelling, Anaphylaxis Tongue/ throat swelled Phenergan Plain Vomiting Vomiting Hydrocodone-Acetami* GI Upset NAUSEA Procardia [Nifedipi* Swelling legs Current Medications Current Outpatient Medications on File Prior to Visit Medication Sig rOPINIRole (REQUIP) 4 mg tablet Take 1 tablet by mouth daily at bedtime. spironolactone (ALDACTONE) 50 mg tablet Take 1 tablet by mouth once daily. celecoxib (CELEBREX) 200 mg capsule Take 1 capsule by mouth once daily. nortriptyline (PAMELOR) 75 mg capsule Take 1 capsule by mouth daily at bedtime. Magnesium 250 mg tab Take 1 tablet by mouth once daily. lisinopril (ZESTRIL) 10 mg tablet Take 1 tablet by mouth once daily. cholecalciferol, vitamin D3, (VITAMIN D3 ORAL) Take by mouth. cyanocobalamin (VITAMIN B-12) 1,000 mcg tab Take 1 tablet by mouth once daily. pregabalin (LYRICA) 50 mg capsule Take one pill tw (more content not included)... Normal [facility] Hepatic function 2000 panelo n 03-19-2024 Albumin [Mass/Vol] 4.1 g/dL Normal 3.9-4.9 [facility] Comment on above: Order Comment: Speci men Type: URINE SPECIMEN [facility] Address: [address] [place] [address] Performed By: #### 2 4356-8 #### [facility] CLIA [id number] [address] [place] [address] [place] ALP [Catalytic activity/Vol] 72 U/L Normal 34-123 [facility] Comment on above: Order Comment: Speci men Type: URINE SPECIMEN [facility] Address: [address] [place] [address] Performed By: #### 2 4356-8 #### [facility] CLIA [id number] [address] [place] [address] [place] ALT [Catalytic activity/Vol] 7 U/L Normal 7-38 [facility] Comment on above: Order Comment: Speci men Type: URINE SPECIMEN [facility] Address: [address] [place] [address] Performed By: #### 2 4356-8 #### [facility] CLIA [id number] [address] [place] [address] [place] AST [Catalytic activity/Vol] 15 U/L Normal 13-35 [facility] Comment on above: Order Comment: Speci men Type: URINE SPECIMEN [facility] Address: [address] [place] [address] Performed By: #### 2 4356-8 #### [facility] CLIA [id number] [address] [place] [address] [place] Bilirubin [Mass/Vol] 0.4 mg/dL Normal 0.2-1.3 [facility] Comment on above: Order Comment: Speci men Type: URINE SPECIMEN [facility] Address: [address] [place] [address] Performed By: #### 2 4356-8 #### [facility] CLIA [id number] [address] [place] [address] [place] Bilirubin.conjugated [Mass/Vol] 0.2 mg/dL Normal <0.3 [facility] Comment on above: Order Comment: Speci men Type: URINE SPECIMEN [facility] Address: [address] [place] [address] Performed By: #### 2 4356-8 #### [facility] CLIA [id number] [address] [place] [address] [place] Protein [Mass/Vol] 7.1 g/dL Normal 6.3-8.0 [facility] Comment on above: Order Comment: Speci men Type: URINE SPECIMEN [facility] Address: [address] [place] [address] Performed By: #### 2 4356-8 #### [facility] CLIA [id number] [address] [place] [address] [place] LIPID PANEL, NONFASTINGon Cholesterol [Mass/Vol] 162 mg/dL Normal <200 [facility] Comment on above: Order Comment: Speci men Type: URINE SPECIMEN [facility] Address: [address] [place] [address] Result Comment: <200 mg/dL, Desirable 200-239 mg/dL, Borderline high >239 mg/dL, High Performed By: #### 2 4356-8 #### [facility] CLIA [id number] [address] [place] [address] [place] HDL CHOLESTEROL, NF 91 mg/dL Normal >39 [facility] Comment on above: Order Comment: Speci men Type: URINE SPECIMEN [facility] Address: [address] [place] [address] Result Comment: 40-5 9 mg/dL, Acceptable >59 mg/dL, High: Negative risk factor for coronary heart disease <40 mg/dL, Low: Positive risk factor for coronary heart disease Performed By: #### 2 4356-8 #### [facility] CLIA [id number] [address] [place] [address] [place] LDL CHOLESTEROL, NF 52 mg/dL Normal <100 [facility] Comment on above: Order Comment: Speci men Type: URINE SPECIMEN [facility] Address: [address] [place] [address] Result Comment: <100 mg/dL, Optimal 100-129 mg/dL, Near optimal/above optimal 130-159 mg/dL, Borderline high 160-189 mg/dL, High >189 mg/dL, Very high Secondary prevention optimal LDL Cholesterol levels are recommended to be < 70 mg/dL Performed By: #### 2 4356-8 #### [facility] CLIA [id number] [address] [place] [address] [place] LDL/HDL RATIO, NF 0.57 mg/dL Normal <2.54 [facility] Comment on above: Order Comment: Speci men Type: URINE SPECIMEN [facility] Address: [address] [place] [address] Result Comment: Refe sameerce: 1. National Cholesterol Education Program ATP III Guideline At-A-Glance Quick Desk Reference: National Heart, Lung, and Blood [place]. National Institutes of Health. 2001: NIH Publication No. 01-3305. 2. An International Atherosclerosis Society position paper: global recommendations for the management of dyslipidemia: executive summary, Atherosclerosis. 2014: 232(2):410-413. Performed By: #### 2 4356-8 #### [facility] CLIA [id number] [address] [place] [address] [place] NON HDL CHOL, NF 71 mg/dL Normal <130 [facility] Comment on above: Order Comment: Speci men Type: URINE SPECIMEN [facility] Address: [address] [place] [address] Result Comment: <130 mg/dL, Optimal 130-159 mg/dL, Near optimal/above optimal 160-189 mg/dL, Borderline high 190-219 mg/dL, High >219 mg/dL, Very high Secondary prevention optimal non HDL Cholesterol levels are recommended to be <100 mg/dL Performed By: #### 2 4356-8 #### [facility] CLIA [id number] [address] [place] [address] [place] [facility] T CHOL/HDL RATIO NF 1.78 mg/dL Normal <5.10 [facility] Comment on above: Order Comment: Speci men Type: URINE SPECIMEN [facility]ing Facility: [facility] Address: [address] [place] [address] Performed By: #### 2 4356-8 #### [facility] CLIA [id number] [address] [place] [address] [place] TRIGLYCERIDES, NF 97 mg/dL Normal <150 [facility] Comment on above: Order Comment: Speci men Type: URINE SPECIMEN [facility]ing Facility: [facility] Address: [address] [place] [address] Result Comment: <150 mg/dL, Normal 150-199 mg/dL, Borderline high 200-499 mg/dL, High >499 mg/dL, Very high Performed By: #### 2 4356-8 #### [facility] CLIA [id number] [address] [place] [address] [place] VLDL CHOLESTEROL, NF 19 mg/dL Normal <30 [facility] Comment on above: Order Comment: Speci men Type: URINE SPECIMEN [facility] Address: [address] [place] [address] Performed By: #### 2 4356-8 #### [facility] CLIA [id number] [address] [place] [address] [place] Vit B12 [facility] 03-19-2 025 Cobalamin (Vitamin B12) [Mass/Vol] 935 pg/mL Normal [id number] [facility] Comment on above: Order Comment: Speci men Type: BLOOD SPECIMENOrdering Facility: [facility] Address: [address] [place] [address] Performed By: #### 2 4325-3, 2132-9, LIPNF ####[facility] LABCLIA [id number] [place] [address] [place] Marleny 02-02-2024 CNPN Telephone (AGSPINE3) SPENSER PUTNAM ([id number]) 1940 F Date Time Provider Department 02/02/24 DANII ROCA AGSPINE3 During your visit today, we recorded the following information about you: Fawad Leong LPN 02/02/2024 1:04 PM Signed Spoke with patient following up from procedure. Patient states they are doing well, no questions or concerns at this time. Fawad Leong LPN Allergies As of Date: 02/02/2024 Noted Allergy Reaction SULFA (SULFONAMIDE ANTIBIOTICS) 04/11/2005 7 - Swelling 10 - Anaphylaxis Comments: Tongue/ throat swelled PHENERGAN PLAIN 03/18/2013 11 - Vomiting Comments: Vomiting HYDROCODONE-ACETAMIN OPHEN 12/30/2011 8 - GI Upset Comments: NAUSEA PROCARDIA (NIFEDIPINE) 06/26/2020 7 - Swelling Comments: legs Date Reviewed: 01/30/2024 Reviewed by: Ashutosh Vance LPN - Fully Assessed Reason for Visit: Procedure [88] Prescriptions as of 02/02/2024 - celecoxib (CELEBREX) 200 mg capsule Take 1 capsule by mouth once daily. - nortriptyline (PAMELOR) 75 mg capsule Take 1 capsule by mouth daily at bedtime. - diclofenac potassium (CATAFLAM) 50 mg tablet Take 1 tablet by mouth two times a day. - Magnesium 250 mg tab Take 1 tablet by mouth once daily. - lisinopril (ZESTRIL) 10 mg tablet Take 1 tablet by mouth once daily. - cholecalciferol, vitamin D3, (VITAMIN D3 ORAL) Take by mouth. - cyanocobalamin (VITAMIN B-12) 1,000 mcg tab Take 1 tablet by mouth once daily. - pregabalin (LYRICA) 50 mg capsule Take one pill twice daily - pravastatin (PRAVACHOL) 20 mg tablet Take 1 tablet by mouth daily at bedtime. - potassium chloride 20 mEq TbER Take 1 tablet by mouth once daily. - rOPINIRole (REQUIP) 4 mg tablet Take 1 tablet by mouth daily at bedtime. - spironolactone (ALDACTONE) 50 mg tablet Take 1 tablet by mouth once daily. - colchicine 0.6 mg tablet Take one tab by mouth 3 times a day till pain stops or script finished. - ammonium lactate (LAC-HYDRIN) 12 % cream Apply to affected area as needed. - aspirin, enteric coated (ADULT LOW DOSE ASPIRIN) 81 mg EC tablet Take 1 tablet by mouth once daily. - calcium carbonate(CALTRATE 600 600 MG (1,500 MG) TAB) - DAILY MULTIVITAMIN TAB Take by mouth. Problem List As Of Date 02/02/2024 Noted Resolved Osteopenia, senile [M85.80] 07/02/2005 Bilateral leg edema [R60.0] 07/02/2005 Family history of malignant neoplasm of gastroi*07/02/2005 03/27/2016 Insomnia, unspecified [G47.00] 07/02/2005 Actinic Keratoses: Premalignant AK's [L57.0] 03/27/2006 Other chronic dermatitis due to solar radiation*03/27/2006 SOLAR LENGINES////DYSCHROM [place] OTHER [L81.9] 03/27/2006 03/22/2013 XEROSIS////SEBACEOUS GLAND DIS NEC [L73.8] 03/27/2006 03/22/2013 Other seborrheic keratosis [L82.1] 06/23/2006 Routine general medical examination at [facility]*08/24/2008 07/29/2011 Class: Chronic Routine gynecological examination [Z01.419] 08/24/2008 07/29/2011 Class: Chronic Restless leg syndrome [G25.81] Hand joint stiff [M25.649] 02/11/2012 Lumbar disc herniation [M51.26] 09/15/2012 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 [M43.16]09/15/2012 Hypokalemia [E87.6] 10/20/2012 Spondylolisthesis at L5-S1 level [M43.17] 10/20/2012 Solar lentigo [L81.4] 03/22/2013 Xerosis cutis [L85.3] 03/22/2013 Personal history of other malignant neoplasm of*03/22/2013 Other psoriasis [L40.8] 04/16/2013 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] 04/10/2013 Mixed hyperlipidemia [E78.2] 10/13/2014 Routine gynecological examination [Z01.419] 10/13/2014 03/27/2016 Colon cancer screening [Z12.11] 10/13/2014 03/27/2016 Well adult exam [Z00.00] 10/13/2014 03/27/2016 Essential hypertension with goal blood pressure*08/14/2015 Encounter for screening mammogram for breast ca*02/21/2016 03/27/2016 Non morbid obesity [E66.9] 03/29/2016 Vitamin D deficiency [E55.9] 08/24/2016 Medicare annual wellness visit, subsequent [Z00*03/12/2017 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 18 Multiple thyroid nodules [E04.2] 09/15/2017 Sensorineural hearing loss, asymmetrical [H90.3]10/08/2017 Lumbar stenosis [M48.061] Internal hemorrhoids [K64.8] Medication management [Z79.899] 09/22/2018 Raynaud's phenomenon without gangrene [I73.00] 06/07/2020 Carpal tunnel syndrome, left [G56.02] 08/17/2020 Valvular heart disease [I38] 10/20/2020 S/P lumbar fusion [Z98.1] 04/16/2021 05/28/2021 Advance directive discussed with patient [Z71.8*04/23/2021 Vertigo [R42] 12/03/2021 Living will on file at physician's office [Z78.*07/22/2022 Spinal stenosis of lumbar region [M48.061] 06/17/2023 Hyperuricemia [E79.0] 07/03/2023 Lumbar radiculopathy [M54.16] 07/25/2023 Spinal stenosis, lumbar region, without neuroge*07/25/2023 Lumbar spondylosis [M47.816] 07/25/2023 Anemia, chronic disease [D63.8] 11/09/2023 Vitamin B12 deficiency [E53.8] 11/09/2023 Hyponatremia [E87 (more content not included)... Normal [facility] CNCOon 01-29-2024 CNCO Letter Text Normal [facility] CNOVon 01-29-2024 CNOV Office Visit (AGSPINE3) SPENSER PUTNAM ([id number]) 1940 F Date Time Provider Department 01/29/24 9:30 AM DANII ROCA AGSPINE3 During your visit today, we recorded the following information about you: Pulse Respiration 89/minute 17/minute Malika Jones LPN 01/29/2024 10:43 AM Signed Review of Systems Constitutional: Positive for activity change. Negative for chills, fever and unexpected weight change. Genitourinary: Negative for difficulty urinating. Musculoskeletal: Positive for gait problem. Negative for arthralgias, back pain, joint swelling, myalgias, neck pain and neck stiffness. Neurological: Positive for weakness. Negative for numbness and headaches. Psychiatric/Behavior al: Positive for sleep disturbance. Negative for dysphoric mood and suicidal ideas. The patient is not nervous/anxious. Danii Roca MD, PhD 01/29/2024 10:43 AM Signed [facility] [place] [facility] Today's Date: 01/29/2024 Name: Spenser Putnam : 1940 Purpose: Follow-up Patient Evaluation - This is an established patient, returning today for continued evaluation and management of the chief complaint noted below Chief complaint: Spinal stenosis of lumbar region Pertinent Past Medical History: RLS, L CTS, HLD, HTN, melanoma/malignant melanoma, Raynaud's, lumbar spinal stenosis, lumbar spondylolisthesis, DJD of sternoclavicular joint, 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, Pertinent Past Surgeries: s/p R hand squamous cell resection, s/p R CTR, s/p L-spine surgery (L3-5 laminectomy and posterior fusion per MRI report, 2020 and 2022) Plan at last visit: (Seen on 10/16/2023 by Aj Graham CNP) Medications: Requested Prescriptions No prescriptions requested or ordered in this encounter Lyrica 50mg BID - restart Interventional Procedures: Epidural Steroid Injection - Transforaminal Approach (TFESI) under fluoroscopic guidance LEFT-SIDED at S1 and L5-S1 Supervisor Frame Sample And Pattern Needed: Epidural - YES Anticoagulant - Hold Needed: N/A (Not currently on Anticoagulants) Anticoagulant - Currently Taking: None Allergies (relevant): None Scheduling - Mobility (Can Patient independently transfer on/off an OR or Procedure table?): YES (May schedule at any location) Scheduling - Additional Info: None Studies: None Functional Yarsani: Physical Therapy Consultation (Land-Based) Referrals: No additional considerations at present Follow-up: 2 months Depending on response to the above plan, consider: SCS discussion, titrate Lyrica Interval History: Overall pain and functional disability since last visit: Better New Complaints since last visit: No Today, pt reports that she has had 50% initial relief from Left L5-S1 and S1 TFESI completed on 11/21/2023, but no significant fci benefit. She has previously had left L4-5 and L5-S1 transforaminal SHERMAN's with 50% relief with a need for a 45 degree oblique due to bone graft material at the L4-5 level. Her repeat epidural at the left L5-S1 and S1 neural foramen showed better spread at the S1 level, with severely stenotic spread at the L5-S1 level. Due to the limited benefit that she has had for multiple transforaminal SHERMAN's, she was recommended to present for SCS consult. She reports that she was doing well for several years after her prior lumbar spine surgeries, however in the last 1 year she has had significant lower back pain and more noticeably radicular leg pain, with intermittent lateral thigh, but mostly posteroateral gomez/calf pain to the level of the ankle. Recall: Patient is here today stating that she is having constant pain as written below. States that the injections are no longer helping and she has seen a psychiatrist for placement of spinal cord stimulator and is scheduled this Friday for her MRIs. Patient stating the leg pain has increased and she is having a difficult time managing it. Patient stating that it is constant and is aching and is making it hard for her to do her activities of daily living. Patient stating that she tried the Lyrica and she could not take it due to inflammation. Patient states her ankle swelled up she does think its helped but both ankle swelled up beyond recognition. Patient also stated that she tried diclofenac and the diclofenac caused her diarrhea. Patient is here to see what can be done for her pain. PAIN DESCRIPTION: Timing: Constant Character: Aching, Dull Primary Location: midline and L-sided lower back Radiation: mild lateral thigh pain, L>R posterolateral calf/gomez, occasionally low back Exacerbating factors: standing >15-20min, walking 15min, flexion/extension Relieving factors: sitting after walking, leaning on shopping cart (more content not included)... Normal [facility] MR Thoracic spine WO contras ton 01-17-2024 IMPRESSION: Canal and foramina are patent. Mild degenerative disc disease at T7-T8. Anatomic Thoracic/Lumbar Variant: None. L4-5 is considered the level of the iliac crest and assume there are 5 lumbar-type vertebrae. Ring Facer: PSCB Transcribe Date/Time: Jan 17 2024 1:14P Dictated by : KELLY FERNANDEZ MD This examination was interpreted and the report reviewed and electronically signed by: KELLY FERNANDEZ MD on Jan 17 2024 1:18PM [facility] * * *Final Report* * * DATE OF EXAM: Jan 17 2024 1:01PM [facility] 0325 - MRI THORACIC SPINE WO IVCON / PROCEDURE REASON: Pain in thoracic spine * * * * Physician Interpretation * * * * EXAMINATION: MRI THORACIC SPINE WO IVCON CLINICAL HISTORY: Pain in thoracic spine, chronic. TECHNIQUE: Routine thoracic spine MR protocol. MQ: MTSWO_3 COMPARISON: None. RESULT: Counting reference: Craniocervical and lumbosacral junctions. For the purposes of this report, L4-5 is considered the level of the iliac crest and assume there are 5 lumbar-type vertebrae. Anatomic variant: None. Localizer images: Discectomies and posterior fusion at L3-L5. Alignment: Accentuation of normal thoracic kyphosis. Cord: The visualized cord is within normal limits of signal intensity and morphology. Conus terminates at L1 and is normal in morphology and signal. Bone marrow signal/fracture: Type II endplate changes adjacent to T7-T8 No evidence of pathologic marrow infiltration. Small Schmorl's nodule on the current plate of T3 moderate loss of disc height at T7-T8 reflecting degeneration. Thoracic paraspinal soft tissues: The paraspinal soft tissues are within normal limits. Canal and foramina: The thoracic canal and foramina are patent. [facility] Provider, [facility] [place] - 01/17/2024 * * *Final Report* * * DATE OF EXAM: Jan 17 2024 1:01PM [facility] 0325 - MRI THORACIC SPINE WO IVCON / PROCEDURE REASON: Pain in thoracic spine * * * * Physician Interpretation * * * * EXAMINATION: MRI THORACIC SPINE WO IVCON CLINICAL HISTORY: Pain in thoracic spine, chronic. TECHNIQUE: Routine thoracic spine MR protocol. MQ: MTSWO_3 COMPARISON: None. RESULT: Counting reference: Craniocervical and lumbosacral junctions. For the purposes of this report, L4-5 is considered the level of the iliac crest and assume there are 5 lumbar-type vertebrae. Anatomic variant: None. Localizer images: Discectomies and posterior fusion at L3-L5. Alignment: Accentuation of normal thoracic kyphosis. Cord: The visualized cord is within normal limits of signal intensity and morphology. Conus terminates at L1 and is normal in morphology and signal. Bone marrow signal/fracture: Type II endplate changes adjacent to T7-T8 No evidence of pathologic marrow infiltration. Small Schmorl's nodule on the current plate of T3 moderate loss of disc height at T7-T8 reflecting degeneration. Thoracic paraspinal soft tissues: The paraspinal soft tissues are within normal limits. Canal and foramina: The thoracic canal and foramina are patent. IMPRESSION IMPRESSION: Canal and foramina are patent. Mild degenerative disc disease at T7-T8. Anatomic Thoracic/Lumbar Variant: None. L4-5 is considered the level of the iliac crest and assume there are 5 lumbar-type vertebrae. Ring Facer: DARRYL Transcribe Date/Time: Jan 17 2024 1:14P Dictated by : KELLY FERNANDEZ MD This examination was interpreted and the report reviewed and electronically signed by: KELLY FERNANDEZ MD on Jan 17 2024 1:18PM EST [facility] Radiology Study observation (narrative) [place] [facility] MR Thoracic spine WO contras tOrdered By: [facility] Provider on 01-17-2024 [facility] MRI THORACIC SPINE WO IVCONo n 01-17-2024 MRI THORACIC SPINE WO IVCON * * *Final Report* * * DATE OF EXAM: Jan 17 2024 1:01PM M 0325 - MRI THORACIC SPINE WO IVCON / PROCEDURE REASON: Pain in thoracic spine * * * * Physician Interpretation * * * * EXAMINATION: MRI THORACIC SPINE WO IVCON CLINICAL HISTORY: Pain in thoracic spine, chronic. TECHNIQUE: Routine thoracic spine MR protocol. MQ: MTSWO_3 COMPARISON: None. RESULT: Counting reference: Craniocervical and lumbosacral junctions. For the purposes of this report, L4-5 is considered the level of the iliac crest and assume there are 5 lumbar-type vertebrae. Anatomic variant: None. Localizer images: Discectomies and posterior fusion at L3-L5. Alignment: Accentuation of normal thoracic kyphosis. Cord: The visualized cord is within normal limits of signal intensity and morphology. Conus terminates at L1 and is normal in morphology and signal. Bone marrow signal/fracture: Type II endplate changes adjacent to T7-T8 No evidence of pathologic marrow infiltration. Small Schmorl's nodule on the current plate of T3 moderate loss of disc height at T7-T8 reflecting degeneration. Thoracic paraspinal soft tissues: The paraspinal soft tissues are within normal limits. Canal and foramina: The thoracic canal and foramina are patent. IMPRESSION: Canal and foramina are patent. Mild degenerative disc disease at T7-T8. Anatomic Thoracic/Lumbar Variant: None. L4-5 is considered the level of the iliac crest and assume there are 5 lumbar-type vertebrae. Ring Facer: PSCB Transcribe Date/Time: Jan 17 2024 1:14P Dictated by : KELLY FERNANDEZ MD This examination was interpreted and the report reviewed and electronically signed by: KELLY FERNANDEZ MD on Jan 17 2024 1:18PM EST [id number] [facility] CNOVon 01-13-2024 CNOV Office Visit (AGSPINE3) CLAUDIASPENSER MANN ([id number]) 1940 F Date Time Provider Department 01/13/24 2:00 PM AJ GRAHAM AGSPINE3 During your visit today, we recorded the following information about you: Pulse Respiration 86/minute 16/minute Ramiro Anderson MA 01/13/2024 3:06 PM Signed Review of Systems Constitutional: Negative for activity change, chills, fever and unexpected weight change. Genitourinary: Negative for difficulty urinating. Musculoskeletal: Positive for arthralgias, gait problem, joint swelling and myalgias. Negative for back pain, neck pain and neck stiffness. Neurological: Negative for weakness, numbness and headaches. Psychiatric/Behavior al: Negative for dysphoric mood, sleep disturbance and suicidal ideas. The patient is not nervous/anxious. Aj Graham APRN.[employer] 01/13/2024 3:06 PM Signed [facility] Today's Date: 01/13/2024 Name: Spenser Putnam : 1940 Purpose: Follow-up Patient Evaluation - This is an established patient, returning today for continued evaluation and management of the chief complaint noted below Chief complaint: Spinal stenosis of lumbar region Pertinent Past Medical History: Insomnia, RLS, Carpal tunnel - left, HLD, HTN, Valvular heart disease, Raynaud's phenomenon, H/O other malignant neoplasm of skin, Lumbar disc herniation, DJD of sternoclavicular joint, 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, Pertinent Past Surgeries: Lumbar interbody fusion L3-4 (2020), Lumbar fusion (2012), Plan at last visit: (Seen on 10/16/2023 by Aj Graham CNP) Medications: Requested Prescriptions No prescriptions requested or ordered in this encounter Lyrica 50mg BID - restart Interventional Procedures: Epidural Steroid Injection - Transforaminal Approach (TFESI) under fluoroscopic guidance LEFT-SIDED at S1 and L5-S1 Supervisor Frame Sample And Pattern Needed: Epidural - YES Anticoagulant - Hold Needed: N/A (Not currently on Anticoagulants) Anticoagulant - Currently Taking: None Allergies (relevant): None Scheduling - Mobility (Can Patient independently transfer on/off an OR or Procedure table?): YES (May schedule at any location) Scheduling - Additional Info: None Studies: None Functional Yarsani: Physical Therapy Consultation (Land-Based) Referrals: No additional considerations at present Follow-up: 2 months Depending on response to the above plan, consider: SCS discussion, titrate Lyrica Interval History: Overall pain and functional disability since last visit: Better New Complaints since last visit: No Patient is here today stating that she is having constant pain as written below. States that the injections are no longer helping and she has seen a psychiatrist for placement of spinal cord stimulator and is scheduled this Friday for her MRIs. Patient stating the leg pain has increased and she is having a difficult time managing it. Patient stating that it is constant and is aching and is making it hard for her to do her activities of daily living. Patient stating that she tried the Lyrica and she could not take it due to inflammation. Patient states her ankle swelled up she does think its helped but both ankle swelled up beyond recognition. Patient also stated that she tried diclofenac and the diclofenac caused her diarrhea. Patient is here to see what can be done for her pain. PAIN DESCRIPTION: Timing: Constant Character: Aching, Dull Primary Location: left knee Radiation: lateral thigh and gomez, occasionally low back Exacerbating factors: Standing, Walking Relieving factors: Sitting, Lying Down Interferes with: walking (uses a walker) Current Pain Medications: Neuropathics: Pamelor 75mg qHS for sleep NSAIDS: Naproxen 500mg BID PRN Muscle Relaxants: Topicals: Other Prescription or OTC Pain Medications: Opioids (when applicable): No question data found. Anti-depressants or Mood-Stabilizers: None Anti-Coagulants: None Therapies Attended (Current or Most Recent): [facility] Physical Therapy 04/17/2023 12/11/2023 AG SPINE COMBINATION Questionnaire GREENLIGHT Completed Date 04/17/2023 Completed Date 12/11/2023 Comments NIDHI Questionnaire Opiod Risk Tool Completed Date 04/17/2023 Comments 0 No question data found. (All drug screens are appropriate unless indicated otherwise) Notable Events During Course of Treatment: 04/15/2023 - Initial HPI (Obtained by Jackson Sumner M.D.). DURATION AND ONSET: The pain complaint has been present for approximately 40 years. The pain had a gradual onset. The mechanism of injury is unknown. RED FLAG SYMPTOMS: denies red flags. She (more content not included)... Normal [facility] CNPNon 01-12-2024 [facility] Telephone (DARSHAN) JERSEYSPENSER ([id number]) 1940 F Date Time Provider Department 01/12/24 AJ GRAHAM During your visit today, we recorded the following information about you: Malika Jones LPN 01/12/2024 1:30 PM Signed Patient left voicemail that her pain meds are not working , difficulty sleeping and now the other leg is hurting . Called patient and she is wanting sooner appt. To discuss new leg pain. Ashley Rios 01/12/2024 2:51 PM Signed 01/11- Scheduled patient with Aj tomorrow in [place] to discuss the new pain she's having in her leg. Ashley Rios Allergies As of Date: 01/12/2024 Noted Allergy Reaction SULFA (SULFONAMIDE ANTIBIOTICS) 04/11/2005 7 - Swelling 10 - Anaphylaxis Comments: Tongue/ throat swelled PHENERGAN PLAIN 03/18/2013 11 - Vomiting Comments: Vomiting HYDROCODONE-ACETAMIN OPHEN 12/30/2011 8 - GI Upset Comments: NAUSEA PROCARDIA (NIFEDIPINE) 06/26/2020 7 - Swelling Comments: legs Date Reviewed: 01/05/2024 Reviewed by: Stanton Mesa DO - Fully Assessed Reason for Visit: Patient Question [1477] Cmt: Pain meds not working Prescriptions as of 01/12/2024 - nortriptyline (PAMELOR) 75 mg capsule Take 1 capsule by mouth daily at bedtime. - diclofenac potassium (CATAFLAM) 50 mg tablet Take 1 tablet by mouth two times a day. - Magnesium 250 mg tab Take 1 tablet by mouth once daily. - lisinopril (ZESTRIL) 10 mg tablet Take 1 tablet by mouth once daily. - cholecalciferol, vitamin D3, (VITAMIN D3 ORAL) Take by mouth. - cyanocobalamin (VITAMIN B-12) 1,000 mcg tab Take 1 tablet by mouth once daily. - pregabalin (LYRICA) 50 mg capsule Take one pill twice daily - methylPREDNISolone (MEDROL, GLENNA,) 4 mg Dose-Pack As Instructed per package - pravastatin (PRAVACHOL) 20 mg tablet Take 1 tablet by mouth daily at bedtime. - potassium chloride 20 mEq TbER Take 1 tablet by mouth once daily. - rOPINIRole (REQUIP) 4 mg tablet Take 1 tablet by mouth daily at bedtime. - spironolactone (ALDACTONE) 50 mg tablet Take 1 tablet by mouth once daily. - colchicine 0.6 mg tablet Take one tab by mouth 3 times a day till pain stops or script finished. - ammonium lactate (LAC-HYDRIN) 12 % cream Apply to affected area as needed. - aspirin, enteric coated (ADULT LOW DOSE ASPIRIN) 81 mg EC tablet Take 1 tablet by mouth once daily. - calcium carbonate(CALTRATE 600 600 MG (1,500 MG) TAB) - DAILY MULTIVITAMIN TAB Take by mouth. Problem List As Of Date 01/12/2024 Noted Resolved Osteopenia, senile [M85.80] 07/02/2005 Bilateral leg edema [R60.0] 07/02/2005 Family history of malignant neoplasm of gastroi*07/02/2005 03/27/2016 Insomnia, unspecified [G47.00] 07/02/2005 Actinic Keratoses: Premalignant AK's [L57.0] 03/27/2006 Other chronic dermatitis due to solar radiation*03/27/2006 SOLAR LENGINES////DYSCHROM [place] OTHER [L81.9] 03/27/2006 03/22/2013 XEROSIS////SEBACEOUS GLAND DIS NEC [L73.8] 03/27/2006 03/22/2013 Other seborrheic keratosis [L82.1] 06/23/2006 Routine general medical examination at [facility]*08/24/2008 07/29/2011 Class: Chronic Routine gynecological examination [Z01.419] 08/24/2008 07/29/2011 Class: Chronic Restless leg syndrome [G25.81] Hand joint stiff [M25.649] 02/11/2012 Lumbar disc herniation [M51.26] 09/15/2012 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 [M43.16]09/15/2012 Hypokalemia [E87.6] 10/20/2012 Spondylolisthesis at L5-S1 level [M43.17] 10/20/2012 Solar lentigo [L81.4] 03/22/2013 Xerosis cutis [L85.3] 03/22/2013 Personal history of other malignant neoplasm of*03/22/2013 Other psoriasis [L40.8] 04/16/2013 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] 04/10/2013 Mixed hyperlipidemia [E78.2] 10/13/2014 Routine gynecological examination [Z01.419] 10/13/2014 03/27/2016 Colon cancer screening [Z12.11] 10/13/2014 03/27/2016 Well adult exam [Z00.00] 10/13/2014 03/27/2016 Essential hypertension with goal blood pressure*08/14/2015 Encounter for screening mammogram for breast ca*02/21/2016 03/27/2016 Non morbid obesity [E66.9] 03/29/2016 Vitamin D deficiency [E55.9] 08/24/2016 Medicare annual wellness visit, subsequent [Z00*03/12/2017 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 18 Multiple thyroid nodules [E04.2] 09/15/2017 Sensorineural hearing loss, asymmetrical [H90.3]10/08/2017 Lumbar stenosis [M48.061] Internal hemorrhoids [K64.8] Medication management [Z79.899] 09/22/2018 Raynaud's phenomenon without gangrene [I73.00] 06/07/2020 Carpal tunnel syndrome, left [G56.02] 08/17/2020 Valvular heart disease [I38] 10/20/2020 S/P lumbar fusion [Z98.1] 04/16/2021 05/28/2021 Advance directive discussed with patient [Z71.8*04/23/2021 Vertigo [R42] 12/03/2021 Living will on file at physician's office [Z78.*07/22/2022 Spinal stenosis of lumbar region [M48.061] 06/17/2023 Hyperuricemia [E79.0] 04 (more content not included)... Normal [facility] MARIAOVon 12-11-2023 CNOV Office Visit (SPAGWO) SPENSER PUTNAM ([id number]) 1940 F Date Time Provider Department 12/11/23 10:15 AM AJ GRAHAM During your visit today, we recorded the following information about you: Pulse Respiration Normal [facility] Marleny 12-11-2023 CNPN Telephone (SPAGWO) SPENSER PUTNAM ([id number]) 1940 F Date Time Provider Department 12/11/23 AJ GRAHAM During your visit today, we recorded the following information about you: Priscilla Vivar 12/11/2023 11:27 AM Signed Patient has been scheduled an SCS consult with Dr. Roca on 01/29/24. Aj put in the order for referral to [facility] for eval. Could you submit that? Priscilla Vivar Allergies As of Date: 12/11/2023 Noted Allergy Reaction SULFA (SULFONAMIDE ANTIBIOTICS) 04/11/2005 7 - Swelling 10 - Anaphylaxis Comments: Tongue/ throat swelled PHENERGAN PLAIN 03/18/2013 11 - Vomiting Comments: Vomiting HYDROCODONE-ACETAMIN OPHEN 12/30/2011 8 - GI Upset Comments: NAUSEA PROCARDIA (NIFEDIPINE) 06/26/2020 7 - Swelling Comments: legs Date Reviewed: 12/11/2023 Reviewed by: Aj Graham APRN.[employer] - Fully Assessed Reason for Visit: Consult [502] Prescriptions as of 12/11/2023 - cholecalciferol, vitamin D3, (VITAMIN D3 ORAL) Take by mouth. - lisinopril (ZESTRIL) 10 mg tablet Take 1 tablet by mouth once daily. - cyanocobalamin (VITAMIN B-12) 1,000 mcg tab Take 1 tablet by mouth once daily. - pregabalin (LYRICA) 50 mg capsule Take one pill twice daily - methylPREDNISolone (MEDROL, GLENNA,) 4 mg Dose-Pack As Instructed per package - pravastatin (PRAVACHOL) 20 mg tablet Take 1 tablet by mouth daily at bedtime. - potassium chloride 20 mEq TbER Take 1 tablet by mouth once daily. - rOPINIRole (REQUIP) 4 mg tablet Take 1 tablet by mouth daily at bedtime. - spironolactone (ALDACTONE) 50 mg tablet Take 1 tablet by mouth once daily. - nortriptyline (PAMELOR) 75 mg capsule Take 1 capsule by mouth daily at bedtime. - colchicine 0.6 mg tablet Take one tab by mouth 3 times a day till pain stops or script finished. - ammonium lactate (LAC-HYDRIN) 12 % cream Apply to affected area as needed. - aspirin, enteric coated (ADULT LOW DOSE ASPIRIN) 81 mg EC tablet Take 1 tablet by mouth once daily. - calcium carbonate(CALTRATE 600 600 MG (1,500 MG) TAB) - DAILY MULTIVITAMIN TAB Take by mouth. Problem List As Of Date 12/11/2023 Noted Resolved Osteopenia, senile [M85.80] 07/02/2005 Bilateral leg edema [R60.0] 07/02/2005 Family history of malignant neoplasm of gastroi*07/02/2005 03/27/2016 Insomnia, unspecified [G47.00] 07/02/2005 Actinic Keratoses: Premalignant AK's [L57.0] 03/27/2006 Other chronic dermatitis due to solar radiation*03/27/2006 SOLAR LENGINES////DYSCHROM IA OTHER [L81.9] 03/27/2006 03/22/2013 XEROSIS////SEBACEOUS GLAND DIS NEC [L73.8] 03/27/2006 03/22/2013 Other seborrheic keratosis [L82.1] 06/23/2006 Routine general medical examination at [facility]*08/24/2008 07/29/2011 Class: Chronic Routine gynecological examination [Z01.419] 08/24/2008 07/29/2011 Class: Chronic Restless leg syndrome [G25.81] Hand joint stiff [M25.649] 02/11/2012 Lumbar disc herniation [M51.26] 09/15/2012 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 [M43.16]09/15/2012 Hypokalemia [E87.6] 10/20/2012 Spondylolisthesis at L5-S1 level [M43.17] 10/20/2012 Solar lentigo [L81.4] 03/22/2013 Xerosis cutis [L85.3] 03/22/2013 Personal history of other malignant neoplasm of*03/22/2013 Other psoriasis [L40.8] 04/16/2013 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] 04/10/2013 Mixed hyperlipidemia [E78.2] 10/13/2014 Routine gynecological examination [Z01.419] 10/13/2014 03/27/2016 Colon cancer screening [Z12.11] 10/13/2014 03/27/2016 Well adult exam [Z00.00] 10/13/2014 03/27/2016 Essential hypertension with goal blood pressure*08/14/2015 Encounter for screening mammogram for breast ca*02/21/2016 03/27/2016 Non morbid obesity [E66.9] 03/29/2016 Vitamin D deficiency [E55.9] 08/24/2016 Medicare annual wellness visit, subsequent [Z00*03/12/2017 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 Multiple thyroid nodules [E04.2] 09/15/2017 Sensorineural hearing loss, asymmetrical [H90.3]10/08/2017 Lumbar stenosis [M48.061] Internal hemorrhoids [K64.8] Medication management [Z79.899] 09/22/2018 Raynaud's phenomenon without gangrene [I73.00] 06/07/2020 Carpal tunnel syndrome, left [G56.02] 08/17/2020 Valvular heart disease [I38] 10/20/2020 S/P lumbar fusion [Z98.1] 04/16/2021 05/28/2021 Advance directive discussed with patient [Z71.8*04/23/2021 Vertigo [R42] 12/03/2021 Living will on file at physician's office [Z78.*07/22/2022 Spinal stenosis of lumbar region [M48.061] 06/17/2023 Hyperuricemia [E79.0] 07/03/2023 Lumbar radiculopathy [M54.16] 07/25/2023 Spinal stenosis, lumbar region, without neuroge*07/25/2023 Lumbar spondylosis [M47.816] 07/25/2023 Anemia, chronic disease [D63.8] 11/09/2023 Vitamin B12 deficiency [E53.8] 11/09/2023 Hyponatremia [E87.1] 12/01/2023 Encounter Status:Closed by PRISCILLA VIVAR on 12/11/23 [facility] W Auto Differential pane l (Bld)on 11-28-2023 Basophils (Bld) [#/Vol] 0.03 10*3/uL [facility] Basophils/100 WBC (Bld) 0.3 % [facility] Differential cell count method Nom (Bld) Auto [facility] Eosinophils (Bld) [#/Vol] 0.09 10*3/uL [facility] Eosinophils/100 WBC (Bld) 0.9 % [facility] Erythrocyte distribution width (RBC) [Ratio] 12.9 % 11.5 - 15.0 % [facility] Hematocrit (Bld) [Volume fraction] 33.5 % Low 36.0 - 46.0 % [facility] Hemoglobin (Bld) [Mass/Vol] 10.7 g/dL Low 11.5 - 15.5 g/dL [facility] Immature granulocytes (Bld) [#/Vol] 0.07 10*3/uL [facility] Immature granulocytes/100 WBC (Bld) 0.7 % [facility] Interpretation and review of laboratory results Abnormal [facility] Lymphocytes (Bld) [#/Vol] 2.18 10*3/uL [facility] Lymphocytes/100 WBC (Bld) 21.8 % [facility] MCH (RBC) [Entitic mass] 29.7 pg 26.0 - 34.0 pg [facility] MCHC (RBC) [Mass/Vol] 31.9 g/dL 30.5 - 36.0 g/dL [facility] MCV (RBC) [Entitic vol] 93.1 fL 80.0 - 100.0 fL [facility] Monocytes (Bld) [#/Vol] 0.80 10*3/uL [facility] Monocytes/100 WBC (Bld) 8.0 % [facility] Neutrophils (Bld) [#/Vol] 6.82 10*3/uL [facility] Neutrophils/100 WBC (Bld) 68.3 % [facility] Nucleated RBC (Bld) [#/Vol] [facility] Nucleated RBC/100 WBC (Bld) [Ratio] 0.0 % /100 WBC [facility] Platelet mean volume (Bld) [Entitic vol] 9.0 fL 9.0 - 12.7 fL [facility] Platelets (Bld) [#/Vol] 333 10*3/uL [facility] RBC (Bld) [#/Vol] 3.60 10*6/uL Low 3.90 - 5.2 0 m/uL [facility] WBC (Bld) [#/Vol] 9.99 10*3/uL [facility] CNPNon 11-24-2023 CNPN Telephone (AGSPINE3) SPENSER PUTNAME ([id number]) 1940 F Date Time Provider Department 11/24/23 DANII ROCA AGSPINE3 During your visit today, we recorded the following information about you: Fawad Leong LPN 11/24/2023 1:54 PM Signed Spoke with patient following up from procedure. Patient states they are doing well, no questions or concerns at this time. Fawad Leong LPN Allergies As of Date: 11/24/2023 Noted Allergy Reaction SULFA (SULFONAMIDE ANTIBIOTICS) 04/11/2005 7 - Swelling 10 - Anaphylaxis Comments: Tongue/ throat swelled PHENERGAN PLAIN 03/18/2013 11 - Vomiting Comments: Vomiting HYDROCODONE-ACETAMIN OPHEN 12/30/2011 8 - GI Upset Comments: NAUSEA PROCARDIA (NIFEDIPINE) 06/26/2020 7 - Swelling Comments: legs Date Reviewed: 11/21/2023 Reviewed by: Ashutosh Vance LPN - Fully Assessed Reason for Visit: Procedure [88] Prescriptions as of 11/24/2023 - cyanocobalamin (VITAMIN B-12) 1,000 mcg tab Take 1 tablet by mouth once daily. - pregabalin (LYRICA) 50 mg capsule Take one pill twice daily - methylPREDNISolone (MEDROL, GLENNA,) 4 mg Dose-Pack As Instructed per package - pravastatin (PRAVACHOL) 20 mg tablet Take 1 tablet by mouth daily at bedtime. - lisinopril (ZESTRIL) 20 mg tablet Take 1 tablet by mouth once daily. - potassium chloride 20 mEq TbER Take 1 tablet by mouth once daily. - rOPINIRole (REQUIP) 4 mg tablet Take 1 tablet by mouth daily at bedtime. - spironolactone (ALDACTONE) 50 mg tablet Take 1 tablet by mouth once daily. - nortriptyline (PAMELOR) 75 mg capsule Take 1 capsule by mouth daily at bedtime. - colchicine 0.6 mg tablet Take one tab by mouth 3 times a day till pain stops or script finished. - ammonium lactate (LAC-HYDRIN) 12 % cream Apply to affected area as needed. - aspirin, enteric coated (ADULT LOW DOSE ASPIRIN) 81 mg EC tablet Take 1 tablet by mouth once daily. - calcium carbonate(CALTRATE 600 600 MG (1,500 MG) TAB) - DAILY MULTIVITAMIN TAB Take by mouth. Problem List As Of Date 11/24/2023 Noted Resolved Osteopenia, senile [M85.80] 07/02/2005 Bilateral leg edema [R60.0] 07/02/2005 Family history of malignant neoplasm of gastroi*07/02/2005 03/27/2016 Insomnia, unspecified [G47.00] 07/02/2005 Actinic Keratoses: Premalignant AK's [L57.0] 03/27/2006 Other chronic dermatitis due to solar radiation*03/27/2006 SOLAR LENGINES////DYSCHROM IA OTHER [L81.9] 03/27/2006 03/22/2013 XEROSIS////SEBACEOUS GLAND DIS NEC [L73.8] 03/27/2006 03/22/2013 Other seborrheic keratosis [L82.1] 06/23/2006 Routine general medical examination at [facility]*08/24/2008 07/29/2011 Class: Chronic Routine gynecological examination [Z01.419] 08/24/2008 07/29/2011 Class: Chronic Restless leg syndrome [G25.81] Hand joint stiff [M25.649] 02/11/2012 Lumbar disc herniation [M51.26] 09/15/2012 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 [M43.16]09/15/2012 Hypokalemia [E87.6] 10/20/2012 Spondylolisthesis at L5-S1 level [M43.17] 10/20/2012 Solar lentigo [L81.4] 03/22/2013 Xerosis cutis [L85.3] 03/22/2013 Personal history of other malignant neoplasm of*03/22/2013 Other psoriasis [L40.8] 04/16/2013 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] 04/10/2013 Mixed hyperlipidemia [E78.2] 10/13/2014 Routine gynecological examination [Z01.419] 10/13/2014 03/27/2016 Colon cancer screening [Z12.11] 10/13/2014 03/27/2016 Well adult exam [Z00.00] 10/13/2014 03/27/2016 Essential hypertension with goal blood pressure*08/14/2015 Encounter for screening mammogram for breast ca*02/21/2016 03/27/2016 Non morbid obesity [E66.9] 03/29/2016 Vitamin D deficiency [E55.9] 08/24/2016 Medicare annual wellness visit, subsequent [Z00*03/12/2017 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 Multiple thyroid nodules [E04.2] 09/15/2017 Sensorineural hearing loss, asymmetrical [H90.3]10/08/2017 Lumbar stenosis [M48.061] Internal hemorrhoids [K64.8] Medication management [Z79.899] 09/22/2018 Raynaud's phenomenon without gangrene [I73.00] 06/07/2020 Carpal tunnel syndrome, left [G56.02] 08/17/2020 Valvular heart disease [I38] 10/20/2020 S/P lumbar fusion [Z98.1] 04/16/2021 05/28/2021 Advance directive discussed with patient [Z71.8*04/23/2021 Vertigo [R42] 12/03/2021 Living will on file at physician's office [Z78.*07/22/2022 Spinal stenosis of lumbar region [M48.061] 06/17/2023 Hyperuricemia [E79.0] 07/03/2023 Lumbar radiculopathy [M54.16] 07/25/2023 Spinal stenosis, lumbar region, without neuroge*07/25/2023 Lumbar spondylosis [M47.816] 07/25/2023 Anemia, chronic disease [D63.8] 11/09/2023 Vitamin B12 deficiency [E53.8] 11/09/2023 Encounter Status:Closed by FAWAD LEONG on 11/24/23 [facility] JERSEYSPENSER ([id number]) 1940 F Date Time Provider Department 11/12/23 GLADYS AJ AGSPINE2 During your visit today, we recorded the following information about you: Jade Torres MA 11/12/2023 11:40 AM Signed Patient left a voicemail stating that the Lyrica is making her swell she would like to know what to do? Please advise Rosalba Arriaga LPN 11/13/2023 11:01 AM Signed Spoke with the patient via telephone today. She states she is having some swelling to scott ankles for about a week and a half. She has been taking Lyrica x 3 weeks. She believes this is a side effect. Please advise DAISY Mcnulty Kermit, MD 11/13/2023 11:49 AM Signed Yes, it is probably the Lyrica. She should discontinue immediately and let us know if the swelling has not resolved within a week. Jackson Sumner III, MD, Marissa Schmitt LPN 11/13/2023 12:18 PM Signed Contacted patient and explained the pain physican/care team's instructions regarding stopping her medication (Lyrica) immediately and to call us if the swelling doesn't resolve within a week. Patient thanked me for the call. I explained to her, that as a reminder, I sent her a Kriyari message as well. She was appreciative for the information. Marissa Briones LPN Allergies As of Date: 11/12/2023 Noted Allergy Reaction SULFA (SULFONAMIDE ANTIBIOTICS) 04/11/2005 7 - Swelling 10 - Anaphylaxis Comments: Tongue/ throat swelled PHENERGAN PLAIN 03/18/2013 11 - Vomiting Comments: Vomiting HYDROCODONE-ACETAMIN OPHEN 12/30/2011 8 - GI Upset Comments: NAUSEA PROCARDIA (NIFEDIPINE) 06/26/2020 7 - Swelling Comments: legs Date Reviewed: 10/16/2023 Reviewed by: Ashutosh Vance LPN - Fully Assessed Reason for Visit: Medication Problem [65] Prescriptions as of 11/13/2023 - cyanocobalamin (VITAMIN B-12) 1,000 mcg tab Take 1 tablet by mouth once daily. - pregabalin (LYRICA) 50 mg capsule Take one pill twice daily - methylPREDNISolone (MEDROL, GLENNA,) 4 mg Dose-Pack As Instructed per package - pravastatin (PRAVACHOL) 20 mg tablet Take 1 tablet by mouth daily at bedtime. - lisinopril (ZESTRIL) 20 mg tablet Take 1 tablet by mouth once daily. - potassium chloride 20 mEq TbER Take 1 tablet by mouth once daily. - rOPINIRole (REQUIP) 4 mg tablet Take 1 tablet by mouth daily at bedtime. - spironolactone (ALDACTONE) 50 mg tablet Take 1 tablet by mouth once daily. - nortriptyline (PAMELOR) 75 mg capsule Take 1 capsule by mouth daily at bedtime. - colchicine 0.6 mg tablet Take one tab by mouth 3 times a day till pain stops or script finished. - ammonium lactate (LAC-HYDRIN) 12 % cream Apply to affected area as needed. - aspirin, enteric coated (ADULT LOW DOSE ASPIRIN) 81 mg EC tablet Take 1 tablet by mouth once daily. - calcium carbonate(CALTRATE 600 600 MG (1,500 MG) TAB) - DAILY MULTIVITAMIN TAB Take by mouth. Problem List As Of Date 11/12/2023 Noted Resolved Osteopenia, senile [M85.80] 07/02/2005 Bilateral leg edema [R60.0] 07/02/2005 Family history of malignant neoplasm of gastroi*07/02/2005 03/27/2016 Insomnia, unspecified [G47.00] 07/02/2005 Actinic Keratoses: Premalignant AK's [L57.0] 03/27/2006 Other chronic dermatitis due to solar radiation*03/27/2006 SOLAR LENGINES////DYSCHROM IA OTHER [L81.9] 03/27/2006 03/22/2013 XEROSIS////SEBACEOUS GLAND DIS NEC [L73.8] 03/27/2006 03/22/2013 Other seborrheic keratosis [L82.1] 06/23/2006 Routine general medical examination at [facility]*08/24/2008 07/29/2011 Class: Chronic Routine gynecological examination [Z01.419] 08/24/2008 07/29/2011 Class: Chronic Restless leg syndrome [G25.81] Hand joint stiff [M25.649] 02/11/2012 Lumbar disc herniation [M51.26] 09/15/2012 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 [M43.16]09/15/2012 Hypokalemia [E87.6] 10/20/2012 Spondylolisthesis at L5-S1 level [M43.17] 10/20/2012 Solar lentigo [L81.4] 03/22/2013 Xerosis cutis [L85.3] 03/22/2013 Personal history of other malignant neoplasm of*03/22/2013 Other psoriasis [L40.8] 04/16/2013 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] 04/10/2013 Mixed hyperlipidemia [E78.2] 10/13/2014 Routine gynecological examination [Z01.419] 10/13/2014 03/27/2016 Colon cancer screening [Z12.11] 10/13/2014 03/27/2016 Well adult exam [Z00.00] 10/13/2014 03/27/2016 Essential hypertension with goal blood pressure*08/14/2015 Encounter for screening mammogram for breast ca*02/21/2016 03/27/2016 Non morbid obesity [E66.9] 03/29/2016 Vitamin D deficiency [E55.9] 08/24/2016 Medicare annual wellness visit, subsequent [Z00*03/12/2017 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 18 Multiple thyroid nodules [E04.2] 09/15/2017 Sensorineural hearing loss, asymmetrical [H90.3]10/08/2017 Lumbar stenosis [M48.061] Internal hemorrhoids [K64.8] Medication management [Z79.899] 09/22/2018 Raynaud's phenomen (more content not included)... Normal [facility] CNCOon 10-16-2023 CNCO Letter Text [facility] CNOVon 10-16-2023 CNOV Office Visit (SPAGWO) JERSEYSPENSER PICKENS ([id number]) 1940 F Date Time Provider Department 10/16/23 8:15 AM JACKSON SUMNER During your visit today, we recorded the following information about you: Pulse Respiration 70/minute 18/minute Jackson Sumner MD 10/16/2023 8:33 AM Signed [facility] Today's Date: 10/15/2023 Name: Spenser Putnam : 1940 Purpose: Follow-up Patient Evaluation - This is an established patient, returning today for continued evaluation and management of the chief complaint noted below Chief complaint: Spinal stenosis of lumbar region Referring Clinician: Destini Lay PA-C Pertinent Past Medical History: Insomnia, RLS, Carpal tunnel - left, HLD, HTN, Valvular heart disease, Raynaud's phenomenon, H/O other malignant neoplasm of skin, Lumbar disc herniation, DJD of sternoclavicular joint, 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, Pertinent Past Surgeries: Lumbar interbody fusion L3-4 (2020), Lumbar fusion (2012), Plan at last visit: (Seen on 06/26/2023 by Aj Graham CNP) Interventional Procedures: Genicular Nerve Block (Superior Medial, Inferior Medial, Superior Lateral - Diagnostic only, NO steroids) left leg Functional Yarsani: Physical Therapy Consultation ([facility]) Follow-up: 2 months Depending on response to the above plan, consider: MBB/RFA, Synvisc One Knee; Genicular blocks/RFA Interval History: Overall pain and functional disability since last visit: Better New Complaints since last visit: No She had left knee genicular nerve Radiofrequency Ablation (RFA) in July, reports 80% relief of pain. Particularly, improvement in the left knee area, but still having pain in the left thigh and ankle. She started the Lyrica, but discontinued it and does not recall why. She saw PT on 07/24 and 08/10, she notes that she did not need further treatments. Review of notes shows that further treatment was advised. PAIN DESCRIPTION: Timing: Constant Character: Aching, Dull Primary Location: left knee Radiation: lateral thigh and gomez, occasionally low back Exacerbating factors: Standing, Walking Relieving factors: Sitting, Lying Down Interferes with: walking (uses a walker) Current Pain Medications: Neuropathics: Pamelor 75mg qHS for sleep NSAIDS: Naproxen 500mg BID PRN Muscle Relaxants: Topicals: Other Prescription or OTC Pain Medications: Opioids (when applicable): No question data found. Anti-depressants or Mood-Stabilizers: None Anti-Coagulants: None Therapies Attended (Current or Most Recent): [place] [facility] Physical Therapy 04/17/2023 [facility] Questionnaire GREENLIGHT Completed Date 04/17/2023 Questionnaire Opiod Risk Tool Completed Date 04/17/2023 Comments 0 No question data found. (All drug screens are appropriate unless indicated otherwise) Notable Events During Course of Treatment: 04/15/2023 - Initial HPI (Obtained by Jackson Sumner M.D.). DURATION AND ONSET: The pain complaint has been present for approximately 40 years. The pain had a gradual onset. The mechanism of injury is unknown. RED FLAG SYMPTOMS: denies red flags. She saw her spine surgeon, who advised non-op management. She reports she had low back pain and left lower limb radicular symptoms that responded to surgery both times. She developed new onset low back pain and the left lower limb pain one month ago suddenly. She saw Dr. Gomez in 2012, did TFESI at L2-3 x 2, does not recall results. Treatment History: PAIN PROCEDURES: DATE PROCEDURE IMPROVEMENT 08/06/2023 RFA Left Knee (Genic N.) 80% (10/16/2023 ) 05/26/2023 L knee CSI <10 04/30/2023 L TFESI L4-S1 >50% MEDICATIONS Taken TO DATE (for the chief complaint(s)): Neuropathics: Neurontin (Gabapentin), Lyrica (Prebabalin), Pamelor (Nortriptyline), Elavil (Amitriptyline) NSAIDS: Naprosyn (Naproxen), Mobic (Meloxicam) Muscle Relaxants: None Topicals: None Other Prescription or OTC Pain Medications: Aspirin Opioids: Tramadol, Oxycodone (eg Percocet) Data Reviewed Today: Allergies: ALLERGIES Allergen Reactions Sulfa (Sulfonamide * Swelling, Anaphylaxis Tongue/ throat swelled Phenergan Plain Vomiting Vomiting Hydrocodone-Acetami* GI Upset NAUSEA Procardia [Nifedipi* Swelling legs Social History Tobacco Use Smoking status: Never Smokeless tobacco: Never Vaping Use Vaping Use: Never used Substance Use Topics Alcohol use: Yes Alcohol/week: 3.9 standard drinks of alcohol Types (more content not included)... Normal [facility] CNPNon 10-16-2023 CNPN Telephone (SPAGWO) JERSEYFELICITA ([id number]) 1940 F Date Time Provider Department 10/16/23 JACKSON SUMNER SPAGRAKESH During your visit today, we recorded the following information about you: Priscilla Vivar 10/16/2023 8:37 AM Signed Procedure(s) being scheduled: 1.Are you diabetic No 2. Are you on any blood thinners? No 3. Are you taking any aspirin? Yes. Please list the current medications being prescribed 81mg asp. 4. Are you currently taking any antibiotics? No 5. Do you have any allergies to latex? No 6. Do you have any allergies to seafood or shellfish? No 7. Do you have any allergies to x-ray dye? No 8. Did the physician instruct you to take any medication prior to your procedure? No 9. Does this procedure require a driver service technician? Yes If yes, has patient been notified that a driver service technician is needed and must be present at check in? yes 10. Were the pre-procedure instructions explained and provided to the patient? Yes 11. Do you have a pacemaker? No 12. Do you have an internal stimulator of any kind? No 13. Have you received the COVID-19 Vaccine? No. (Patient should not receive a procedure including steroids 14 days prior to their first dose of the COVID vaccine. They should not receive any procedure containing steroids in the time frame between their 1st and 2nd doses of the COVID vaccine. They should not receive a procedure containing steroids 14 days after their 2nd dose of the COVID vaccine.) Priscilla Vivar Allergies As of Date: 10/16/2023 Noted Allergy Reaction SULFA (SULFONAMIDE ANTIBIOTICS) 04/11/2005 7 - Swelling 10 - Anaphylaxis Comments: Tongue/ throat swelled PHENERGAN PLAIN 03/18/2013 11 - Vomiting Comments: Vomiting HYDROCODONE-ACETAMIN OPHEN 12/30/2011 8 - GI Upset Comments: NAUSEA PROCARDIA (NIFEDIPINE) 06/26/2020 7 - Swelling Comments: legs Date Reviewed: 10/16/2023 Reviewed by: Ashutosh Vance LPN - Fully Assessed Reason for Visit: Injections [199] Prescriptions as of 10/16/2023 - pregabalin (LYRICA) 50 mg capsule Take one pill twice daily - methylPREDNISolone (MEDROL, GLENNA,) 4 mg Dose-Pack As Instructed per package - pravastatin (PRAVACHOL) 20 mg tablet Take 1 tablet by mouth daily at bedtime. - lisinopril (ZESTRIL) 20 mg tablet Take 1 tablet by mouth once daily. - potassium chloride 20 mEq TbER Take 1 tablet by mouth once daily. - rOPINIRole (REQUIP) 4 mg tablet Take 1 tablet by mouth daily at bedtime. - spironolactone (ALDACTONE) 50 mg tablet Take 1 tablet by mouth once daily. - nortriptyline (PAMELOR) 75 mg capsule Take 1 capsule by mouth daily at bedtime. - colchicine 0.6 mg tablet Take one tab by mouth 3 times a day till pain stops or script finished. - ammonium lactate (LAC-HYDRIN) 12 % cream Apply to affected area as needed. - aspirin, enteric coated (ADULT LOW DOSE ASPIRIN) 81 mg EC tablet Take 1 tablet by mouth once daily. - calcium carbonate(CALTRATE 600 600 MG (1,500 MG) TAB) - DAILY MULTIVITAMIN TAB Take by mouth. 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 radiation*03/27/2006 SOLAR LENGINES////DYSCHROM IA OTHER [L81.9] 03/27/2006 03/22/2013 XEROSIS////SEBACEOUS GLAND DIS NEC [L73.8] 03/27/2006 03/22/2013 Other seborrheic keratosis [L82.1] 06/23/2006 Routine general medical examination at [facility]*08/24/2008 07/29/2011 Class: Chronic Routine gynecological examination [Z01.419] 08/24/2008 07/29/2011 Class: Chronic Restless leg syndrome [G25.81] Hand joint stiff [M25.649] 02/11/2012 Lumbar disc herniation [M51.26] 09/15/2012 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 [M43.16]09/15/2012 Hypokalemia [E87.6] 10/20/2012 Spondylolisthesis at L5-S1 level [M43.17] 10/20/2012 Solar lentigo [L81.4] 03/22/2013 Xerosis cutis [L85.3] 03/22/2013 Personal history of other malignant neoplasm of*03/22/2013 Other psoriasis [L40.8] 04/16/2013 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] 04/10/2013 Mixed hyperlipidemia [E78.2] 10/13/2014 Routine gynecological examination [Z01.419] 10/13/2014 03/27/2016 Colon cancer screening [Z12.11] 10/13/2014 03/27/2016 Well adult exam [Z00.00] 10/13/2014 03/27/2016 Essential hypertension with goal blood pressure*08/14/2015 Encounter for screening mammogram for breast ca*02/21/2016 03/27/2016 Non morbid obesity [E66.9] 03/29/2016 Vitamin D deficiency [E55.9] 08/24/2016 Medicare annual wellness visit, subsequent [Z00*03/12/2017 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 18 Multiple thyroid nodules [E04.2] 09/15/2017 Sensorineural hearing loss, asymmetrical [H90.3]10/08/2017 Lumbar stenosis [M48.061] (more content not included)... Normal [facility] Marleny 07-25-2023 JOVANYN Telephone (SPAGWO) SPENSER PUTNAM ([id number]) 1940 F Date Time Provider Department 07/25/23 AJ GRAHAM During your visit today, we recorded the following information about you: Beronica Michel 07/25/2023 2:54 PM Signed Procedure(s) being scheduled: 1.Are you diabetic No 2. Are you on any blood thinners? No 3. Are you taking any aspirin? Yes, 81mg 4. Are you currently taking any antibiotics? No 5. Do you have any allergies to latex? No 6. Do you have any allergies to seafood or shellfish? No 7. Do you have any allergies to x-ray dye? No 8. Did the physician instruct you to take any medication prior to your procedure? No 9. Does this procedure require a driver service technician? Yes If yes, has patient been notified that a driver service technician is needed and must be present at check in? yes 10. Were the pre-procedure instructions explained and provided to the patient? Yes 11. Do you have a pacemaker? No 12. Do you have an internal stimulator of any kind? No 13. Have you received the COVID-19 Vaccine? No. (Patient should not receive a procedure including steroids 14 days prior to their first dose of the COVID vaccine. They should not receive any procedure containing steroids in the time frame between their 1st and 2nd doses of the COVID vaccine. They should not receive a procedure containing steroids 14 days after their 2nd dose of the COVID vaccine.) Allergies As of Date: 07/25/2023 Noted Allergy Reaction SULFA (SULFONAMIDE ANTIBIOTICS) 04/11/2005 7 - Swelling 10 - Anaphylaxis Comments: Tongue/ throat swelled PHENERGAN PLAIN 03/18/2013 11 - Vomiting Comments: Vomiting HYDROCODONE-ACETAMIN OPHEN 12/30/2011 8 - GI Upset Comments: NAUSEA PROCARDIA (NIFEDIPINE) 06/26/2020 7 - Swelling Comments: legs Date Reviewed: 07/23/2023 Reviewed by: Aj Graham APRN.[employer] - Fully Assessed Reason for Visit: Injection Questions [Other] Prescriptions as of 07/25/2023 - methylPREDNISolone (MEDROL, GLENNA,) 4 mg Dose-Pack As pkg directs - nortriptyline (PAMELOR) 75 mg capsule Take 1 capsule by mouth daily at bedtime. - colchicine 0.6 mg tablet Take one tab by mouth 3 times a day till pain stops or script finished. - rOPINIRole (REQUIP) 3 mg tablet Take 1 tablet by mouth daily at bedtime. - lisinopril (ZESTRIL) 20 mg tablet Take 1 tablet by mouth once daily. - pravastatin (PRAVACHOL) 20 mg tablet Take 1 tablet by mouth daily at bedtime. - potassium chloride 20 mEq TbER Take 1 tablet by mouth two times a day. - spironolactone (ALDACTONE) 50 mg tablet Take 1 tablet by mouth once daily. - ammonium lactate (LAC-HYDRIN) 12 % cream Apply to affected area as needed. - aspirin, enteric coated (ADULT LOW DOSE ASPIRIN) 81 mg EC tablet Take 1 tablet by mouth once daily. - calcium carbonate(CALTRATE 600 600 MG (1,500 MG) TAB) - DAILY MULTIVITAMIN TAB Take by mouth. Problem List As Of Date 07/25/2023 Noted Resolved Osteopenia, senile [M85.80] 07/02/2005 Bilateral leg edema [R60.0] 07/02/2005 Family history of malignant neoplasm of gastroi*07/02/2005 03/27/2016 Insomnia, unspecified [G47.00] 07/02/2005 Actinic Keratoses: Premalignant AK's [L57.0] 03/27/2006 Other chronic dermatitis due to solar radiation*03/27/2006 SOLAR LENGINES////DYSCHROM IA OTHER [L81.9] 03/27/2006 03/22/2013 XEROSIS////SEBACEOUS GLAND DIS NEC [L73.8] 03/27/2006 03/22/2013 Other seborrheic keratosis [L82.1] 06/23/2006 Routine general medical examination at [facility]*08/24/2008 07/29/2011 Class: Chronic Routine gynecological examination [Z01.419] 08/24/2008 07/29/2011 Class: Chronic Restless leg syndrome [G25.81] Hand joint stiff [M25.649] 02/11/2012 Lumbar disc herniation [M51.26] 09/15/2012 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 [M43.16]09/15/2012 Hypokalemia [E87.6] 10/20/2012 Spondylolisthesis at L5-S1 level [M43.17] 10/20/2012 Solar lentigo [L81.4] 03/22/2013 Xerosis cutis [L85.3] 03/22/2013 Personal history of other malignant neoplasm of*03/22/2013 Other psoriasis [L40.8] 04/16/2013 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] 04/10/2013 Mixed hyperlipidemia [E78.2] 10/13/2014 Routine gynecological examination [Z01.419] 10/13/2014 03/27/2016 Colon cancer screening [Z12.11] 10/13/2014 03/27/2016 Well adult exam [Z00.00] 10/13/2014 03/27/2016 Essential hypertension with goal blood pressure*08/14/2015 Encounter for screening mammogram for breast ca*02/21/2016 03/27/2016 Non morbid obesity [E66.9] 03/29/2016 Vitamin D deficiency [E55.9] 08/24/2016 Medicare annual wellness visit, subsequent [Z00*03/12/2017 Encounter for screening mammogram for breast ca*03/12/2017 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 18 Multiple thyroid nodules [E04.2] 09/15/2017 Sensorineural hearing loss, asymmetrical [H90.3]10/08/2017 Lumbar stenosis [M48.061] Internal hemorrhoids [K64.8] Medication management [Z79.899] more content not included)... Normal [facility] Marleny 07-18-2023 JOVANYN Telephone (AGSPINE1) CLAUDIASPENSER MANN ([id number]) 1940 F Date Time Provider Department 07/18/23 DANII ROCAPINE1 During your visit today, we recorded the following information about you: Meg Chaudhary LPN 07/18/2023 9:46 AM Signed Spoke with patient following up from procedure. Patient states they are doing well, no questions or concerns at this time. Meg Chaudhary LPN Allergies As of Date: 07/18/2023 Noted Allergy Reaction SULFA (SULFONAMIDE ANTIBIOTICS) 04/11/2005 7 - Swelling 10 - Anaphylaxis Comments: Tongue/ throat swelled PHENERGAN PLAIN 03/18/2013 11 - Vomiting Comments: Vomiting HYDROCODONE-ACETAMIN OPHEN 12/30/2011 8 - GI Upset Comments: NAUSEA PROCARDIA (NIFEDIPINE) 06/26/2020 7 - Swelling Comments: legs Date Reviewed: 07/17/2023 Reviewed by: Ashutosh Vance LPN - Fully Assessed Reason for Visit: Procedure Follow Up [1139] Cmt: Dr. Roca 07/17/23 Prescriptions as of 07/18/2023 - nortriptyline (PAMELOR) 75 mg capsule Take 1 capsule by mouth daily at bedtime. - colchicine 0.6 mg tablet Take one tab by mouth 3 times a day till pain stops or script finished. - rOPINIRole (REQUIP) 3 mg tablet Take 1 tablet by mouth daily at bedtime. - lisinopril (ZESTRIL) 20 mg tablet Take 1 tablet by mouth once daily. - pravastatin (PRAVACHOL) 20 mg tablet Take 1 tablet by mouth daily at bedtime. - potassium chloride 20 mEq TbER Take 1 tablet by mouth two times a day. - spironolactone (ALDACTONE) 50 mg tablet Take 1 tablet by mouth once daily. - ammonium lactate (LAC-HYDRIN) 12 % cream Apply to affected area as needed. - aspirin, enteric coated (ADULT LOW DOSE ASPIRIN) 81 mg EC tablet Take 1 tablet by mouth once daily. - calcium carbonate(CALTRATE 600 600 MG (1,500 MG) TAB) - DAILY MULTIVITAMIN TAB Take by mouth. Problem List As Of Date 07/18/2023 Noted Resolved Osteopenia, senile [M85.80] 07/02/2005 Bilateral leg edema [R60.0] 07/02/2005 Family history of malignant neoplasm of gastroi*07/02/2005 03/27/2016 Insomnia, unspecified [G47.00] 07/02/2005 Actinic Keratoses: Premalignant AK's [L57.0] 03/27/2006 Other chronic dermatitis due to solar radiation*03/27/2006 SOLAR LENGINES////DYSCHROM IA OTHER [L81.9] 03/27/2006 03/22/2013 XEROSIS////SEBACEOUS GLAND DIS NEC [L73.8] 03/27/2006 03/22/2013 Other seborrheic keratosis [L82.1] 06/23/2006 Routine general medical examination at [facility]*08/24/2008 07/29/2011 Class: Chronic Routine gynecological examination [Z01.419] 08/24/2008 07/29/2011 Class: Chronic Restless leg syndrome [G25.81] Hand joint stiff [M25.649] 02/11/2012 Lumbar disc herniation [M51.26] 09/15/2012 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 [M43.16]09/15/2012 Hypokalemia [E87.6] 10/20/2012 Spondylolisthesis at L5-S1 level [M43.17] 10/20/2012 Solar lentigo [L81.4] 03/22/2013 Xerosis cutis [L85.3] 03/22/2013 Personal history of other malignant neoplasm of*03/22/2013 Other psoriasis [L40.8] 04/16/2013 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] 04/10/2013 Mixed hyperlipidemia [E78.2] 10/13/2014 Routine gynecological examination [Z01.419] 10/13/2014 03/27/2016 Colon cancer screening [Z12.11] 10/13/2014 03/27/2016 Well adult exam [Z00.00] 10/13/2014 03/27/2016 Essential hypertension with goal blood pressure*08/14/2015 Encounter for screening mammogram for breast ca*02/21/2016 03/27/2016 Non morbid obesity [E66.9] 03/29/2016 Vitamin D deficiency [E55.9] 08/24/2016 Medicare annual wellness visit, subsequent [Z00*03/12/2017 Encounter for screening mammogram for breast ca*03/12/2017 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 18 Multiple thyroid nodules [E04.2] 09/15/2017 Sensorineural hearing loss, asymmetrical [H90.3]10/08/2017 Lumbar stenosis [M48.061] Internal hemorrhoids [K64.8] Medication management [Z79.899] 09/22/2018 Raynaud's phenomenon without gangrene [I73.00] 06/07/2020 Carpal tunnel syndrome, left [G56.02] 08/17/2020 Valvular heart disease [I38] 10/20/2020 S/P lumbar fusion [Z98.1] 04/16/2021 05/28/2021 Advance directive discussed with patient [Z71.8*04/23/2021 Vertigo [R42] 12/03/2021 Living will on file at physician's office [Z78.*07/22/2022 Spinal stenosis of lumbar region [M48.061] 06/17/2023 Hyperuricemia [E79.0] 07/03/2023 Encounter Status:Closed by MEG CHAUDHARY on 07/18/23 Normal [facility] Basic metabolic 2000 panelOr dered By: Lore Mcdonnell on 07-03-2023 Anion gap [Moles/Vol] 8 mmol/L Low 9 - 18 mmol/L [facility] Calcium [Mass/Vol] 10.1 mg/dL 8.5 - 10. 2 mg/dL [facility] Chloride [Moles/Vol] 104 mmol/L 97 - 10 5 mmol/L [facility] CO2 [Moles/Vol] 23 mmol/L 22 - 30 mmol/L [facility] Creatinine [Mass/Vol] 1.08 mg/dL High 0.58 - 0.96 mg/dL [facility] GFR/1.73 sq M.predicted among non-blacks MDRD (S/P/Bld) [Vol rate/Area] 51 mL/min/{1.73_m2} Low - PINF [facility] Comment on above: Estimated Glomerular Filtration Rate (eGFR) is calculated using the 2020 CKD-EPI creatinine equation. This equation utilizes serum creatinine, sex, and age as parameters. The creatinine assay has traceable calibration to isotope dilution-mass spectrometry. Refer to KDIGO guidelines for clinical interpretation. In patients with unstable renal function, e.g. those with acute kidney injury, the eGFR may not accurately reflect actual GFR. Glucose [Mass/Vol] 129 mg/dL High 74 - 99 mg/dL [facility] Comment on above: The [place] Diab[employer] s Association (ADA) provides guidance for cutoff values for fasting glucose and random glucose. The ADA defines fasting as no caloric intake for at least 8 hours. Fasting plasma glucose results between 100 to 125 mg/dL indicate increased risk for diabetes (prediabetes). Fasting plasma glucose results greater than or equal to 126 mg/dL meet the criteria for diagnosis of diabetes. In the absence of unequivocal hyperglycemia, results should be confirmed by repeat testing. In a patient with classic symptoms of hyperglycemia or hyperglycemic crisis, random plasma glucose results greater than or equal to 200 mg/dL meet the criteria for diagnosis of diabetes. Reference: Standards of Medical Care in Diabetes 2016, [place] Diabetes Association. Diabetes Care. 2016.39(Suppl 1). Interpretation and review of laboratory results Abnormal [facility] Potassium [Moles/Vol] 4.7 mmol/L 3.7 - 5.1 mmol/L [facility] Sodium [Moles/Vol] 135 mmol/L Low 136 - 144 mmol/L [facility] Urea nitrogen [Mass/Vol] 23 mg/dL High 7 - 21 mg/dL [facility] CNCOon 06-26-2023 CNCO Letter Text Normal [facility] CNOVon 06-26-2023 CNOV Office Visit (SPAGWO) JERSEYSPENSER PICKENS ([id number]) 1940 F Date Time Provider Department 06/26/23 3:00 PM AJ GRAHAM During your visit today, we recorded the following information about you: Pulse Respiration 90/minute 16/minute [place], MinniePREMA 06/26/2023 5:26 PM Signed Review of Systems Constitutional: Negative for activity change, chills, fever and unexpected weight change. Gastrointestinal: Negative for bowel retention or incontinence Genitourinary: Negative for difficulty urinating. Negative for bladder retention or incontinence Musculoskeletal: Positive for arthralgias, back pain, gait problem and myalgias. Negative for joint swelling, neck pain and neck stiffness. Neurological: Negative for weakness, numbness and headaches. Psychiatric/Behavior al: Positive for sleep disturbance. Negative for dysphoric mood and suicidal ideas. The patient is not nervous/anxious. Aj Graham APRN.JOVANY 06/26/2023 5:26 PM Signed [facility] Today's Date: 06/26/2023 Name: Spenser Putnam : 1940 Purpose: Follow-up Patient Evaluation - This is an established patient, returning today for continued evaluation and management of the chief complaint noted below Chief complaint: Spinal stenosis of lumbar region Referring Clinician: Destini Lay PA-C Pertinent Past Medical History: Insomnia, RLS, Carpal tunnel - left, HLD, HTN, Valvular heart disease, Raynaud's phenomenon, H/O other malignant neoplasm of skin, Lumbar disc herniation, DJD of sternoclavicular joint, 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 States she continues to have pain in her left knee. Patient stating that she feels that the left knee pain is worse than her low back pain. Patient is also stating that she was diagnosed with gout, was given colchicine to help with the gout and she has an upset stomach from the colchicine. Patient stating the low back pain is mostly on the left side low back and will radiate down into her leg. Patient stating that the knee pain is much worse and is interfering with her activities of daily living more than her low back pain. Current Pain Medications: Neuropathics: NSAIDS: Muscle Relaxants: Topicals: Other Prescription or OTC Pain Medications: Opioids (when applicable): Tolerating Medication: N/A Medications helping improve ADL's and Self-care: N/A Anti-depressants or Mood-Stabilizers: None Anti-Coagulants: None Therapies Attended (Current or Most Recent): No Current Therapies 04/17/2023 [facility] SPINE COMBINATION Questionnaire GREENLIGHT Completed Date 04/17/2023 Questionnaire Opiod Risk Tool Completed Date 04/17/2023 Comments 0 No question data found. (All drug screens are appropriate unless indicated otherwise) Notable Events During Course of Treatment: History of Present Illness (HPI): 04/15/2023 - Initial HPI (Obtained by Jackson Sumner M.D.). DURATION AND ONSET: The pain complaint has been present for approximately 40 years. The pain had a gradual onset. The mechanism of injury is unknown. RED FLAG SYMPTOMS: denies red flags. She saw her spine surgeon, who advised non-op management. She reports she had low back pain and left lower limb radicular symptoms that responded to surgery both times. She developed new onset low back pain and the left lower limb pain one month ago suddenly. She saw Dr. Gomez in 2013, did TFESI at L2-3 x 2, does not recall results. Current Pain Medications: Neuropathics: Pamelor 75mg qHS for sleep; Lyrica 50mg TID - just started NSAIDS: Naproxen 500mg BID PRN Muscle Relaxants: Topicals: Other Prescription or OTC Pain Medications: ASA 81mg Opioids (when applicable): Percocet - took sparingly, helped a little bit No question data found. Anti-depressants or Mood-Stabilizers: None Anti-Coagulants: None Therapies Attended (Current or Most Recent): No Current Therapies Treatment History: PAIN PROCEDURES: DATE PROCEDURE IMPROVEMENT 05/26/2023 L knee CSI <10 04/30/2023 (more content not included)... Normal [facility] [place] 06-26-2023 [facility] Telephone (REKHAGWO) JERSEYSPENSER PICKENS ([id number]) 1940 F Date Time Provider Department 06/26/23 AJ GRAHAM During your visit today, we recorded the following information about you: Priscilla Vivar 06/26/2023 3:27 PM Signed Procedure(s) being scheduled: 1.Are you diabetic No 2. Are you on any blood thinners? No 3. Are you taking any aspirin? Yes, 81mg 4. Are you currently taking any antibiotics? No 5. Do you have any allergies to latex? No 6. Do you have any allergies to seafood or shellfish? No 7. Do you have any allergies to x-ray dye? No 8. Did the physician instruct you to take any medication prior to your procedure? No 9. Does this procedure require a driver service technician? Yes If yes, has patient been notified that a driver service technician is needed and must be present at check in? yes 10. Were the pre-procedure instructions explained and provided to the patient? Yes 11. Do you have a pacemaker? No 12. Do you have an internal stimulator of any kind? No 13. Have you received the COVID-19 Vaccine? No. (Patient should not receive a procedure including steroids 14 days prior to their first dose of the COVID vaccine. They should not receive any procedure containing steroids in the time frame between their 1st and 2nd doses of the COVID vaccine. They should not receive a procedure containing steroids 14 days after their 2nd dose of the COVID vaccine.) Priscilla Snydermons Allergies As of Date: 06/26/2023 Noted Allergy Reaction SULFA (SULFONAMIDE ANTIBIOTICS) 04/11/2005 7 - Swelling 10 - Anaphylaxis Comments: Tongue/ throat swelled PHENERGAN PLAIN 03/18/2013 11 - Vomiting Comments: Vomiting HYDROCODONE-ACETAMIN OPHEN 12/30/2011 8 - GI Upset Comments: NAUSEA PROCARDIA (NIFEDIPINE) 06/26/2020 7 - Swelling Comments: legs Date Reviewed: 06/26/2023 Reviewed by: Minnie Delaney MA - Fully Assessed Reason for Visit: Injections [199] Cmt: Questions Prescriptions as of 06/26/2023 - colchicine 0.6 mg tablet Take one tab by mouth 3 times a day till pain stops or script finished. - nystatin (MYCOSTATIN) cream Apply 1 application to affected area two times a day for 14 days. - rOPINIRole (REQUIP) 3 mg tablet Take 1 tablet by mouth daily at bedtime. - lisinopril (ZESTRIL) 20 mg tablet Take 1 tablet by mouth once daily. - pravastatin (PRAVACHOL) 20 mg tablet Take 1 tablet by mouth daily at bedtime. - potassium chloride 20 mEq TbER Take 1 tablet by mouth two times a day. - spironolactone (ALDACTONE) 50 mg tablet Take 1 tablet by mouth once daily. - nortriptyline (PAMELOR) 75 mg capsule Take 1 capsule by mouth daily at bedtime. - ammonium lactate (LAC-HYDRIN) 12 % cream Apply to affected area as needed. - aspirin, enteric coated (ADULT LOW DOSE ASPIRIN) 81 mg EC tablet Take 1 tablet by mouth once daily. - calcium carbonate(CALTRATE 600 600 MG (1,500 MG) TAB) - DAILY MULTIVITAMIN TAB Take by mouth. 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.0] 03/27/2006 Other chronic dermatitis due to solar radiation*03/27/2006 SOLAR LENGINES////DYSCHROM IA OTHER [L81.9] 03/27/2006 03/22/2013 XEROSIS////SEBACEOUS GLAND DIS NEC [L73.8] 03/27/2006 03/22/2013 Other seborrheic keratosis [L82.1] 06/23/2006 Routine general medical examination at [facility]*08/24/2008 07/29/2011 Class: Chronic Routine gynecological examination [Z01.419] 08/24/2008 07/29/2011 Class: Chronic Restless leg syndrome [G25.81] Hand joint stiff [M25.649] 02/11/2012 Lumbar disc herniation [M51.26] 09/15/2012 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 [M43.16]09/15/2012 Hypokalemia [E87.6] 10/20/2012 Spondylolisthesis at L5-S1 level [M43.17] 10/20/2012 Solar lentigo [L81.4] 03/22/2013 Xerosis cutis [L85.3] 03/22/2013 Personal history of other malignant neoplasm of*03/22/2013 Other psoriasis [L40.8] 04/16/2013 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] 04/10/2013 Mixed hyperlipidemia [E78.2] 10/13/2014 Routine gynecological examination [Z01.419] 10/13/2014 03/27/2016 Colon cancer screening [Z12.11] 10/13/2014 03/27/2016 Well adult exam [Z00.00] 10/13/2014 03/27/2016 Essential hypertension with goal blood pressure*08/14/2015 Encounter for screening mammogram for breast ca*02/21/2016 03/27/2016 Non morbid obesity [E66.9] 03/29/2016 Vitamin D deficiency [E55.9] 08/24/2016 Medicare annual wellness visit, subsequent [Z00*03/12/2017 Encounter for screening mammogram for breast ca*03/12/2017 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 Multiple thyroid nodules [E04.2] 09/15/2017 Sensorineural hearing loss, asymmetrical [H90.3]10/08/2017 Lumbar stenosis [M48.061] Internal hemorrhoids [K (more content not included)... Normal [facility] CNPNon 06-24-2023 CNPN Telephone (AGSPINE3) JERSEYSPENSER ([id number]) 1940 F Date Time Provider Department 06/24/23 JACKSON SUMNER AGSPINE3 During your visit today, we recorded the following information about you: Rosalba Arriaga LPN 06/24/2023 12:08 PM Signed Patient left a voicemail stating she was diagnosed with having gout in her toe. Patient was prescribed medication for this by a different provider. Patient is complaining of pain ,and states she cannot sleep at night. She is requesting something for pain. Please advise. DAISY Mcnulty Kermit, MD 06/24/2023 12:29 PM Signed We do not treat Gout. She will need to talk with her PCP or whichever clinician is managing her Gout. MD Darya Morataya Jordan, MA 06/24/2023 3:01 PM Signed Patient notified. Voiced understanding. Derick Lackey MA Allergies As of Date: 06/24/2023 Noted Allergy Reaction SULFA (SULFONAMIDE ANTIBIOTICS) 04/11/2005 7 - Swelling 10 - Anaphylaxis Comments: Tongue/ throat swelled PHENERGAN PLAIN 03/18/2013 11 - Vomiting Comments: Vomiting HYDROCODONE-ACETAMIN OPHEN 12/30/2011 8 - GI Upset Comments: NAUSEA PROCARDIA (NIFEDIPINE) 06/26/2020 7 - Swelling Comments: legs Date Reviewed: 06/17/2023 Reviewed by: Minnie Wilburn LPN - Fully Assessed Reason for Visit: Patient Question [1537] Prescriptions as of 06/24/2023 - nystatin (MYCOSTATIN) cream Apply 1 application to affected area two times a day for 14 days. - rOPINIRole (REQUIP) 3 mg tablet Take 1 tablet by mouth daily at bedtime. - lisinopril (ZESTRIL) 20 mg tablet Take 1 tablet by mouth once daily. - pravastatin (PRAVACHOL) 20 mg tablet Take 1 tablet by mouth daily at bedtime. - potassium chloride 20 mEq TbER Take 1 tablet by mouth two times a day. - spironolactone (ALDACTONE) 50 mg tablet Take 1 tablet by mouth once daily. - nortriptyline (PAMELOR) 75 mg capsule Take 1 capsule by mouth daily at bedtime. - ammonium lactate (LAC-HYDRIN) 12 % cream Apply to affected area as needed. - aspirin, enteric coated (ADULT LOW DOSE ASPIRIN) 81 mg EC tablet Take 1 tablet by mouth once daily. - calcium carbonate(CALTRATE 600 600 MG (1,500 MG) TAB) - DAILY MULTIVITAMIN TAB Take one(1) tablet daily. Problem List As Of Date 06/24/2023 Noted Resolved Osteopenia, senile [M85.80] 07/02/2005 Bilateral leg edema [R60.0] 07/02/2005 Family history of malignant neoplasm of gastroi*07/02/2005 03/27/2016 Insomnia, unspecified [G47.00] 07/02/2005 Actinic Keratoses: Premalignant AK's [L57.0] 03/27/2006 Other chronic dermatitis due to solar radiation*03/27/2006 SOLAR LENGINES////DYSCHROM IA OTHER [L81.9] 03/27/2006 03/22/2013 XEROSIS////SEBACEOUS GLAND DIS NEC [L73.8] 03/27/2006 03/22/2013 Other seborrheic keratosis [L82.1] 06/23/2006 Routine general medical examination at a [facility]*08/24/2008 07/29/2011 Class: Chronic Routine gynecological examination [Z01.419] 08/24/2008 07/29/2011 Class: Chronic Restless leg syndrome [G25.81] Hand joint stiff [M25.649] 02/11/2012 Lumbar disc herniation [M51.26] 09/15/2012 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 [M43.16]09/15/2012 Hypokalemia [E87.6] 10/20/2012 Spondylolisthesis at L5-S1 level [M43.17] 10/20/2012 Solar lentigo [L81.4] 03/22/2013 Xerosis cutis [L85.3] 03/22/2013 Personal history of other malignant neoplasm of*03/22/2013 Other psoriasis [L40.8] 04/16/2013 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] 04/10/2013 Mixed hyperlipidemia [E78.2] 10/13/2014 Routine gynecological examination [Z01.419] 10/13/2014 03/27/2016 Colon cancer screening [Z12.11] 10/13/2014 03/27/2016 Well adult exam [Z00.00] 10/13/2014 03/27/2016 Essential hypertension with goal blood pressure*08/14/2015 Encounter for screening mammogram for breast ca*02/21/2016 03/27/2016 Non morbid obesity [E66.9] 03/29/2016 Vitamin D deficiency [E55.9] 08/24/2016 Medicare annual wellness visit, subsequent [Z00*03/12/2017 Encounter for screening mammogram for breast ca*03/12/2017 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 Multiple thyroid nodules [E04.2] 09/15/2017 Sensorineural hearing loss, asymmetrical [H90.3]10/08/2017 Lumbar stenosis [M48.061] Internal hemorrhoids [K64.8] Medication management [Z79.899] 09/22/2018 Raynaud's phenomenon without gangrene [I73.00] 06/07/2020 Carpal tunnel syndrome, left [G56.02] 08/17/2020 Valvular heart disease [I38] 10/20/2020 S/P lumbar fusion [Z98.1] 04/16/2021 05/28/2021 Advance directive discussed with patient [Z71.8*04/23/2021 Vertigo [R42] 12/03/2021 Living will on file at physician's office [Z78.*07/22/2022 Spinal stenosis of lumbar region [M48.061] 06/17/2023 Encounter Status:Closed by JACKSON SUMNER on 06/24/23 Normal [facility] C-REACTIVE PROTEIN (CRP)on 0 06-17-2023 CRP [Mass/Vol] <0.9 mg/dL [facility] ESR Westergren method (Bld) [Velocity]on 06-17-2023 ESR (Bld) [Velocity] 8 mm/h 0 - 20 mm/hr Cl [facility] URIC ACID BLOODon 06-17-2023 Urate [Mass/Vol] 6.9 mg/dL High 2.5 - 6.6 mg/dL [facility] CNPNon 05-28-2023 CNPN Telephone (AGSPINE3) JERSEYSPENSER PICKENS ([id number]) 1940 F Date Time Provider Department 05/28/23 JACKSON SUMNER AGSPINE3 During your visit today, we recorded the following information about you: Ashutosh Vance LPN 05/28/2023 2:11 PM Signed Spoke with patient following up from procedure. Patient states they are doing well, no questions or concerns at this time. Ashutosh Vance LPN Allergies As of Date: 05/28/2023 Noted Allergy Reaction SULFA (SULFONAMIDE ANTIBIOTICS) 04/11/2005 7 - Swelling 10 - Anaphylaxis Comments: Tongue/ throat swelled [place]ENERGAN [place]IN 03/18/2013 11 - Vomiting Comments: Vomiting HYDROCODONE-ACETAMIN OPHEN 12/30/2011 8 - GI Upset Comments: NAUSEA PROCARDIA (NIFEDIPINE) 06/26/2020 7 - Swelling Comments: legs Date Reviewed: 05/26/2023 Reviewed by: Meg Chaudhary LPN - Fully Assessed Reason for Visit: Procedure Follow Up [1139] Cmt: LEFT KNEE INJECTION Prescriptions as of 05/28/2023 - rOPINIRole (REQUIP) 3 mg tablet Take 1 tablet by mouth daily at bedtime. - methylPREDNISolone (MEDROL, GLENNA,) 4 mg Dose-Pack As Instructed per package - lisinopril (ZESTRIL) 20 mg tablet Take 1 tablet by mouth once daily. - pregabalin (LYRICA) 50 mg capsule Take 50 mg by mouth three times a day. - pravastatin (PRAVACHOL) 20 mg tablet Take 1 tablet by mouth daily at bedtime. - naproxen (NAPROSYN) 500 mg tablet Take 1 tablet by mouth two times a day as needed (for pain/inflammation). Take with food. - potassium chloride 20 mEq TbER Take 1 tablet by mouth two times a day. - spironolactone (ALDACTONE) 50 mg tablet Take 1 tablet by mouth once daily. - nortriptyline (PAMELOR) 75 mg capsule Take 1 capsule by mouth daily at bedtime. - ammonium lactate (LAC-HYDRIN) 12 % cream Apply to affected area as needed. - aspirin, enteric coated (ADULT LOW DOSE ASPIRIN) 81 mg EC tablet Take 1 tablet by mouth once daily. - calcium carbonate(CALTRATE 600 600 MG (1,500 MG) TAB) - DAILY MULTIVITAMIN TAB Take one(1) tablet daily. Problem List As Of Date 05/28/2023 Noted Resolved Osteopenia, senile [M85.80] 07/02/2005 Bilateral leg edema [R60.0] 07/02/2005 Family history of malignant neoplasm of gastroi*07/02/2005 03/27/2016 Insomnia, unspecified [G47.00] 07/02/2005 Actinic Keratoses: Premalignant AK's [L57.0] 03/27/2006 Other chronic dermatitis due to solar radiation*03/27/2006 SOLAR LENGINES////DYSCHROM IA OTHER [L81.9] 03/27/2006 03/22/2013 XEROSIS////SEBACEOUS GLAND DIS NEC [L73.8] 03/27/2006 03/22/2013 Other seborrheic keratosis [L82.1] 06/23/2006 Routine general medical examination at [facility]*08/24/2008 07/29/2011 Class: Chronic Routine gynecological examination [Z01.419] 08/24/2008 07/29/2011 Class: Chronic Restless leg syndrome [G25.81] Hand joint stiff [M25.649] 02/11/2012 Lumbar disc herniation [M51.26] 09/15/2012 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 [M43.16]09/15/2012 Hypokalemia [E87.6] 10/20/2012 Spondylolisthesis at L5-S1 level [M43.17] 10/20/2012 Solar lentigo [L81.4] 03/22/2013 Xerosis cutis [L85.3] 03/22/2013 Personal history of other malignant neoplasm of*03/22/2013 Other psoriasis [L40.8] 04/16/2013 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] 04/10/2013 Mixed hyperlipidemia [E78.2] 10/13/2014 Routine gynecological examination [Z01.419] 10/13/2014 03/27/2016 Colon cancer screening [Z12.11] 10/13/2014 03/27/2016 Well adult exam [Z00.00] 10/13/2014 03/27/2016 Essential hypertension with goal blood pressure*08/14/2015 Encounter for screening mammogram for breast ca*02/21/2016 03/27/2016 Non morbid obesity [E66.9] 03/29/2016 Vitamin D deficiency [E55.9] 08/24/2016 Medicare annual wellness visit, subsequent [Z00*03/12/2017 Encounter for screening mammogram for breast ca*03/12/2017 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 Multiple thyroid nodules [E04.2] 09/15/2017 Sensorineural hearing loss, asymmetrical [H90.3]10/08/2017 Lumbar stenosis [M48.061] Internal hemorrhoids [K64.8] Medication management [Z79.899] 09/22/2018 Raynaud's phenomenon without gangrene [I73.00] 06/07/2020 Carpal tunnel syndrome, left [G56.02] 08/17/2020 Valvular heart disease [I38] 10/20/2020 S/P lumbar fusion [Z98.1] 04/16/2021 05/28/2021 Advance directive discussed with patient [Z71.8*04/23/2021 Vertigo [R42] 12/03/2021 Living will on file at physician's office [Z78.*07/22/2022 Encounter Status:Closed by ASHUTOSH VANCE on 05/28/23 Normal [facility] US OTHER-INJECTION (POC) MODEST[place] USE ONLYon 05-26-2023 [facility] XR Knee - bilateral 4 Viewso n 04-17-2023 [facility] XR Lumbar spine 3 Viewson IMPRESSION: DEGENERATIVE, POSTOPERATIVE CHANGE AND ALIGNMENT ABNORMALITIES DESCRIBED Ring Facer: DARRYL Transcribe Date/Time: Mar 24 2023 12:48P Dictated by : BRAD BRAN MD This examination was interpreted and the report reviewed and electronically signed by: BRAD BRAN MD on Mar 24 2023 12:50PM [facility] DIVISION OF RADIOLOGY * * *Final Report* * * DATE OF EXAM: Mar 21 2023 1:41PM WOX [id number] - XR LUMBAR 3V AP/LAT/L5-S1 / PROCEDURE REASON: Spinal stenosis of lumbar region, unspecified whether neurogenic claudication pr * * * * Physician Interpretation * * * * Examination: XR LUMBAR 3V AP/LAT/L5-S1 History: Spinal stenosis of lumbar region, unspecified whether neurogenic claudication present Technique: XR LUMBAR 3V AP/LAT/L5-S1 Comparison: 01/01/2013 RESULT: 5 nonrib-bearing lumbar-type vertebrae. For numbering purposes, L4-5 is at the level of the iliac crest. Pedicle plate and screw device transfixes L4 and L5. No evidence of fracture or loosening. Disc spacer at L3-4 with hardware fixation. Mild grade 1 spondylolisthesis of L4 on L5, and L5 on S1. Moderate to severe disc space narrowing at L2-3 with vacuum phenomenon. Osteopenia. SI joints appear unremarkable DIVISION OF RADIOLOGY Provider, [facility] - 03/24/2023 * * *Final Report* * * DATE OF EXAM: Mar 21 2023 1:41PM WOX [id number] - XR LUMBAR 3V AP/LAT/L5-S1 / PROCEDURE REASON: Spinal stenosis of lumbar region, unspecified whether neurogenic claudication pr * * * * Physician Interpretation * * * * Examination: XR LUMBAR 3V AP/LAT/L5-S1 History: Spinal stenosis of lumbar region, unspecified whether neurogenic claudication present Technique: XR LUMBAR 3V AP/LAT/L5-S1 Comparison: 01/01/2013 RESULT: 5 nonrib-bearing lumbar-type vertebrae. For numbering purposes, L4-5 is at the level of the iliac crest. Pedicle plate and screw device transfixes L4 and L5. No evidence of fracture or loosening. Disc spacer at L3-4 with hardware fixation. Mild grade 1 spondylolisthesis of L4 on L5, and L5 on S1. Moderate to severe disc space narrowing at L2-3 with vacuum phenomenon. Osteopenia. SI joints appear unremarkable IMPRESSION IMPRESSION: DEGENERATIVE, POSTOPERATIVE CHANGE AND ALIGNMENT ABNORMALITIES DESCRIBED Ring Facer: [facility] Transcribe Date/Time: Mar 24 2023 12:48P Dictated by : BRAD BRAN MD This examination was interpreted and the report reviewed and electronically signed by: BRAD BRAN MD on Mar 24 2023 12:50PM EST [facility] XR Lumbar spine 3 ViewsOrder ed By: Ccf Provider on 03-24-2023 [facility] XR Lumbar spine 3 Viewson Radiology Study observation (narrative) [facility] XR Pelvis and Hip - right AP and Lateral frogon 03-03-2023 IMPRESSION: Mild to moderate degenerative change with prominent spurring at the right hip similar to the previous Ring Facer: [facility] Transcribe Date/Time: Mar 03 2023 8:51P Dictated by : CHILO COOK MD This examination was interpreted and the report reviewed and electronically signed by: CHILO COOK MD on Mar 03 2023 8:52PM [facility] DIVISION OF RADIOLOGY * * *Final Report* * * DATE OF EXAM: Feb 25 2023 11:17AM WOX [id number] - XR HIP 3V PELV+ AP/LAT RT / PROCEDURE REASON: Acute hip pain, right * * * * Physician Interpretation * * * * XR HIP 3V PELV+ AP/LAT RT PROVIDED HISTORY: Acute hip pain, right COMPARISON: 07/28/2015 TECHNIQUE: AP pelvis. 2 views of right hip RESULT: Bony mineralization within normal limits. Mild to moderate degenerative narrowing and bony spurring at the right hip joint. No acute fracture or dislocation is seen at the right hip. Lower lumbar fusion hardware from L3 to L5 DIVISION OF RADIOLOGY Provider, [facility] - 03/03/2023 * * *Final Report* * * DATE OF EXAM: Feb 25 2023 11:17AM WOX [id number] - XR HIP 3V PELV+ AP/LAT RT / PROCEDURE REASON: Acute hip pain, right * * * * Physician Interpretation * * * * XR HIP 3V PELV+ AP/LAT RT PROVIDED HISTORY: Acute hip pain, right COMPARISON: 07/28/2015 TECHNIQUE: AP pelvis. 2 views of right hip RESULT: Bony mineralization within normal limits. Mild to moderate degenerative narrowing and bony spurring at the right hip joint. No acute fracture or dislocation is seen at the right hip. Lower lumbar fusion hardware from L3 to L5 IMPRESSION IMPRESSION: Mild to moderate degenerative change with prominent spurring at the right hip similar to the previous Ring Facer: DARRYL Transcribe Date/Time: Mar 03 2023 8:51P Dictated by : CHILO COOK MD This examination was interpreted and the report reviewed and electronically signed by: CHILO COOK MD on Mar 03 2023 8:52PM EST [facility] XR Pelvis and Hip - right AP and Lateral frogOrdered By: [facility]cf Provider on 03-03-2023 [facility] XR Pelvis and Hip - right AP and Lateral frogon 02-25-2023 Radiology Study observation (narrative) [facility] US THYROID/PARATHYROIDon [facility] UA DIP, URINE (POC)on 2022 BILIRUBIN UA (POCT) Negative Negative [facility] CLARITY UA (POCT) Clear [facility] COLOR UA (POCT) Yellow [facility] GLUCOSE UA (POCT) Negative Negative mg/dL [facility] HEMOGLOBIN/BLOOD UA (POCT) Large Abnormal Negative [facility] KETONE UA (POCT) Negative Negative mg/dL [facility] LEUKOCYTES UA (POCT) Large Abnormal Negative [facility] NITRITE UA (POCT) Positive Abnormal Negative [facility] PH UA (POCT) 5.5 4.5 - 8.0 [facility] Protein Ql (U) Negative Negative mg/dL [facility] SPECIFIC GRAVITY UA (POCT) 1.025 1.005 - 1.030 [facility] UROBILINOGEN UA (POCT) 0.2 E.U./dL Leatha l E.U./dL [facility] UA DIP, URINE (POC)on 2022 BILIRUBIN UA (POCT) Negative Negative [facility] CLARITY UA (POCT) Cloudy [facility] COLOR UA (POCT) Dark yellow [facility] GLUCOSE UA (POCT) Negative Negative mg/dL [facility] HEMOGLOBIN/BLOOD UA (POCT) Trace-intact Abnormal Negative [facility] KETONE UA (POCT) Negative Negative mg/dL [facility] LEUKOCYTES UA (POCT) Small Abnormal Negative [facility] NITRITE UA (POCT) Negative Negative [facility] PH UA (POCT) 5.5 4.5 - 8.0 [facility] Protein Ql (U) Negative Negative mg/dL [facility] SPECIFIC GRAVITY UA (POCT) 1.010 1.005 - 1.030 [facility] UROBILINOGEN UA (POCT) 0.2 E.U./dL Leatha l E.U./dL [facility] CBC W Auto Differential pane l (Bld)on 04-19-2022 Basophils (Bld) [#/Vol] 0.03 10*3/uL <0.11 k/uL [facility] Basophils/100 WBC (Bld) 0.4 % [facility] Differential cell count method Nom (Bld) Auto [facility] Eosinophils (Bld) [#/Vol] 0.14 10*3/uL <0.46 k/uL [facility] Eosinophils/100 WBC (Bld) 1.6 % [facility] Erythrocyte distribution width (RBC) [Ratio] 12.8 % 11.5 - 15.0 % [facility] Hematocrit (Bld) [Volume fraction] 37.3 % 36.0 - 46.0 % [facility] Hemoglobin (Bld) [Mass/Vol] 12.0 g/dL 11.5 - 15.5 g/dL [facility] Immature granulocytes (Bld) [#/Vol] 0.04 10*3/uL <0.10 k/uL [facility] Immature granulocytes/100 WBC (Bld) 0.5 % [facility] Lymphocytes (Bld) [#/Vol] 2.19 10*3/uL 1.00 - 4.00 k/uL [facility] Lymphocytes/100 WBC (Bld) 25.6 % [facility] MCH (RBC) [Entitic mass] 31.2 pg 26.0 - 34.0 pg [facility] MCHC (RBC) [Mass/Vol] 32.2 g/dL 30.5 - 36.0 g/dL [facility] MCV (RBC) [Entitic vol] 96.9 fL 80.0 - 100.0 fL [facility] Monocytes (Bld) [#/Vol] 0.79 10*3/uL <0.87 k/uL [facility] Monocytes/100 WBC (Bld) 9.2 % [facility] Neutrophils (Bld) [#/Vol] 5.38 10*3/uL 1.45 - 7.50 k/uL [facility] Neutrophils/100 WBC (Bld) 62.7 % [facility] Nucleated RBC (Bld) [#/Vol] <0.01 k/uL [facility] Nucleated RBC/100 WBC (Bld) [Ratio] 0.0 /100 WBC [facility] Platelet mean volume (Bld) [Entitic vol] 9.5 fL 9.0 - 12.7 fL [facility] Platelets (Bld) [#/Vol] 216 10*3/uL 150 - 400 k/uL [facility] RBC (Bld) [#/Vol] 3.85 10*6/uL Low 3.90 - 5.2 0 m/uL [facility] WBC (Bld) [#/Vol] 8.57 10*3/uL 3.70 - 11. 00 k/uL [facility] MRI BRAIN WO IVCONon 17-2 022 [facility] Clinical Summary: Aníbal cook 05-31-2021 75 OP Visit Invalid Interpretation Code [facility] Work Phone: Vital Signs Date Time Vital Sign Value Performing Clinician Facility 12-22-2024 14:30-0400 Body temperature 98.1 [degF] Dr. Juan Spann MD Work Phone: [facility] 12-22-2024 14:30-0400 Diastolic blood pressure 59 mm[Hg] Dr. Juan Spann MD Work Phone: 4([phone] [place] [address] 12-22-2024 14:30-0400 Heart rate 69 /min Dr. Juan Spann MD Work Phone: [phone] [place] [address] 12-22-2024 14:30-0400 Respiratory rate 16 /min Dr. Juan Spann MD Work Phone: [phone] [place] [address] 12-22-2024 14:30-0400 SaO2% (BldA) [Mass fraction] 96 % Dr. Juan Spann MD Work Phone: [phone] [place] [address] 12-22-2024 14:30-0400 Systolic blood pressure 128 mm[Hg] Dr. Juan Spann MD Work Phone: [phone] [place] [address] 12-21-2024 22:23-0400 Body height 157.[address] Juan Spann MD Work Phone: [phone] [place] [address] 12-21-2024 22:23-0400 Body mass index (BMI) [Ratio] 25.4 kg/m2 Dr. Juan Spann MD Work Phone: 0(773)[phone] [place] [address] 12-21-2024 22:23-0400 Body weight 63.[address] Juan Spann MD Work Phone: [facility] 09-17-2024 08:41-0400 Body height 153 cm Juan Spann MD Work Phone: [facility] 09-17-2024 08:41-0400 Body mass index (BMI) [Ratio] 27.13 kg/m2 Juan Spann MD Work Phone: [facility] 09-17-2024 08:41-0400 Body weight 63.5 kg Juan Spann MD Work Phone: [facility] 09-17-2024 08:41-0400 Diastolic blood pressure 72 mm[Hg] Juan Spann MD Work Phone: [facility] 09-17-2024 08:41-0400 Heart rate 82 /min Juan Spann MD Work Phone: [facility] 09-17-2024 08:41-0400 Respiratory rate 12 /min Juan Spann MD Work Phone: [facility] 09-17-2024 08:41-0400 SaO2% (BldA) [Mass fraction] 98 % Juan Spann MD Work Phone: [facility] 09-17-2024 08:41-0400 Systolic blood pressure 116 mm[Hg] Juan Spann MD Work Phone: [facility] 07-07-2024 13:08-0400 Body mass index (BMI) [Ratio] 24.44 kg/m2 Jamey Collier MD Work Phone: [facility] 07-07-2024 13:08-0400 Body temperature 98.2 [degF] Jamey Collier MD Work Phone: [facility] 07-07-2024 13:08-0400 Body weight 60.6 kg Jamey Collier MD Work Phone: [facility] 07-07-2024 13:08-0400 Diastolic blood pressure 67 mm[Hg] Jamey Collier MD Work Phone: [facility] 07-07-2024 13:08-0400 Heart rate 76 /min Jamey Collier MD Work Phone: [facility] 07-07-2024 13:08-0400 Respiratory rate 16 /min Jamey Collier MD Work Phone: [facility] 07-07-2024 13:08-0400 SaO2% (BldA) [Mass fraction] 99 % Jamey Collier MD Work Phone: [facility] 07-07-2024 13:08-0400 Systolic blood pressure 147 mm[Hg] Jamey Collier MD Work Phone: [facility] 06-24-2024 09:49-0400 Body temperature 96.8 [degF] Jamey Collier MD Work Phone: [facility] 06-24-2024 09:49-0400 Diastolic blood pressure 72 mm[Hg] Jamey Collier MD Work Phone: [facility] 06-24-2024 09:49-0400 Heart rate 79 /min Jamey Collier MD Work Phone: [facility] 06-24-2024 09:49-0400 Respiratory rate 15 /min Jamey Collier MD Work Phone: [facility] 06-24-2024 09:49-0400 SaO2% (BldA) [Mass fraction] 94 % Jamey Collier MD Work Phone: [facility] 06-24-2024 09:49-0400 Systolic blood pressure 149 mm[Hg] Jamey Collier MD Work Phone: [facility] 06-24-2024 06:46-0400 Body mass index (BMI) [Ratio] 25.4 kg/m2 Jamey Collier MD Work Phone: [facility] 06-24-2024 06:46-0400 Body weight 63 kg Jamey Collier MD Work Phone: [facility] 06-02-2024 10:55-0400 Body mass index (BMI) [Ratio] 25.24 kg/m2 Juan Spann MD Work Phone: [facility] 06-02-2024 10:55-0400 Body weight 62.6 kg Juan Spann MD Work Phone: [facility] 06-02-2024 10:55-0400 Diastolic blood pressure 60 mm[Hg] Juan Spann MD Work Phone: [facility] 06-02-2024 10:55-0400 Heart rate 64 /min Juan Spann MD Work Phone: [facility] 06-02-2024 10:55-0400 Respiratory rate 16 /min Juan Spann MD Work Phone: [facility] 06-02-2024 10:55-0400 Systolic blood pressure 112 mm[Hg] Juan Spann MD Work Phone: [facility] 05-04-2024 13:00-0500 Heart rate 90 /min Aj Prebish [employer]GER [employer] Work Phone: [facility] 05-04-2024 13:00-0500 Respiratory rate 18 /min Aj Prebish MANAGER [employer] Work Phone: [facility] 05-04-2024 13:00-0500 SaO2% (BldA) [Mass fraction] 96 % Aj Prebish MANAGER [employer] Work Phone: [facility] 05-03-2024 13:48-0500 Body weight 63.96 kg Jamey Collier MD Work Phone: [facility] 05-03-2024 13:48-0500 Diastolic blood pressure 85 mm[Hg] Jamey Collier MD Work Phone: [facility] Comment on above: taken [facility] [facility] 05-03-2024 13:48-0500 Heart rate 101 /min Jamey Collier MD Work Phone: [facility] 05-03-2024 13:48-0500 Systolic blood pressure 156 mm[Hg] Jamey Collier MD Work Phone: [facility] Comment on above: taken [facility] 04-27-2024 15:13-0500 Diastolic blood pressure 65 mm[Hg] Danii Roca MD, PhD Work Phone: [facility] 04-27-2024 15:13-0500 Heart rate 71 /min Danii Roca MD, PhD Work Phone: [facility] 04-27-2024 15:13-0500 Respiratory rate 17 /min Danii Roca MD, PhD Work Phone: [facility] 04-27-2024 15:13-0500 SaO2% (BldA) [Mass fraction] 93 % Danii Roca MD, PhD Work Phone: [facility] 04-27-2024 15:13-0500 Systolic blood pressure 131 mm[Hg] Danii Roca MD, PhD Work Phone: [facility] 03-23-2024 14:53-0500 Diastolic blood pressure 81 mm[Hg] Danii Roac MD, PhD Work Phone: [facility] 03-23-2024 14:53-0500 Heart rate 78 /min Danii Roca MD, PhD Work Phone: [facility] 03-23-2024 14:53-0500 Respiratory rate 20 /min Danii Roca MD, PhD Work Phone: [facility] 03-23-2024 14:53-0500 SaO2% (BldA) [Mass fraction] 98 % Danii Roca MD, PhD Work Phone: [facility] 03-23-2024 14:53-0500 Systolic blood pressure 143 mm[Hg] Danii Roca MD, PhD Work Phone: [facility] 03-19-2024 13:03-0500 Body mass index (BMI) [Ratio] 25.97 kg/m2 Destini ESPARZA-C Work Phone: [facility] 03-19-2024 13:03-0500 Body temperature 97.81 [degF] Destini ESPARZA-C Work Phone: [facility] 03-19-2024 13:03-0500 Body weight 64.41 kg Destini ESPARZA-C Work Phone: [facility] 03-19-2024 13:03-0500 Diastolic blood pressure 60 mm[Hg] Destini ESPARZA-C Work Phone: [facility] 03-19-2024 13:03-0500 Heart rate 76 /min Destini ESPARZA-C Work Phone: [facility] 03-19-2024 13:03-0500 Respiratory rate 16 /min Destini Lay PA-C Work Phone: [facility] 03-19-2024 13:03-0500 Systolic blood pressure 110 mm[Hg] Destini Lay PA-C Work Phone: [facility] 01-30-2024 12:52-0500 Diastolic blood pressure 78 mm[Hg] Danii Roca MD, PhD Work Phone: [facility] 01-30-2024 12:52-0500 Heart rate 50 /min Danii Roca MD, PhD Work Phone: [facility] 01-30-2024 12:52-0500 Respiratory rate 17 /min Danii Roca MD, PhD Work Phone: [facility] 01-30-2024 12:52-0500 SaO2% (BldA) [Mass fraction] 97 % Danii Roca MD, PhD Work Phone: [facility] 01-30-2024 12:52-0500 Systolic blood pressure 130 mm[Hg] Danii Roca MD, PhD Work Phone: [facility] 01-29-2024 09:31-0500 Heart rate 89 /min Danii Roca MD, PhD Work Phone: [facility] 01-29-2024 09:31-0500 Respiratory rate 17 /min Danii Roca MD, PhD Work Phone: [facility] 01-29-2024 09:31-0500 SaO2% (BldA) [Mass fraction] 99 % Danii Roca MD, PhD Work Phone: [facility] 01-13-2024 14:02-0500 Heart rate 86 /min Aj Prebish MANAGER MOBILITY.[employer] Work Phone: [facility] 01-13-2024 14:02-0500 Respiratory rate 16 /min Aj Prebish MANAGER MOBILITY.[employer] Work Phone: [facility] 01-13-2024 14:02-0500 SaO2% (BldA) [Mass fraction] 99 % Aj Prebish MANAGER MOBILITY.[employer] Work Phone: [facility] 12-17-2023 11:38-0400 Body mass index (BMI) [Ratio] 26.7 kg/m2 Destini Lay PA-C Work Phone: [facility] 12-17-2023 11:38-0400 Body temperature 97.2 [degF] Destini Lay PA-C Work Phone: [facility] 12-17-2023 11:38-0400 Body weight 66.22 kg Destini Lay PA-C Work Phone: [facility] 12-17-2023 11:38-0400 Diastolic blood pressure 76 mm[Hg] Destini Lay PA-C Work Phone: [facility] 12-17-2023 11:38-0400 Heart rate 80 /min Destini Lay PA-C Work Phone: [facility] 12-17-2023 11:38-0400 Respiratory rate 16 /min Destini Lay PA-C Work Phone: [facility] 12-17-2023 11:38-0400 Systolic blood pressure 120 mm[Hg] Destini Lay PA-C Work Phone: [facility] 12-11-2023 10:27-0400 Heart rate 84 /min Aj Prebish MANAGER MOBILITY.[employer] Work Phone: [facility] 12-11-2023 10:27-0400 Respiratory rate 16 /min Aj Prebish MANAGER MOBILITY.[employer] Work Phone: [facility] 12-11-2023 10:27-0400 SaO2% (BldA) [Mass fraction] 98 % Aj Prebish MANAGER MOBILITY.[employer] Work Phone: [facility] 11-28-2023 10:10-0400 Body mass index (BMI) [Ratio] 25.97 kg/m2 Destini Lay PA-C Work Phone: [facility] 11-28-2023 10:10-0400 Body temperature 97.9 [degF] Destini Lay PA-C Work Phone: [facility] 11-28-2023 10:10-0400 Body weight 64.41 kg Destini Lay PA-C Work Phone: [facility] 11-28-2023 10:10-0400 Diastolic blood pressure 60 mm[Hg] Destini Lay PA-C Work Phone: [facility] 11-28-2023 10:10-0400 Heart rate 80 /min Destini Lay PA-C Work Phone: [facility] 11-28-2023 10:10-0400 Respiratory rate 16 /min Destini Lay PA-C Work Phone: [facility] 11-28-2023 10:10-0400 SaO2% (BldA) [Mass fraction] 100 % Destini Lay PA-C Work Phone: [facility] 11-28-2023 10:10-0400 Systolic blood pressure 110 mm[Hg] Destini Lay PA-C Work Phone: [facility] 11-21-2023 09:15-0400 Diastolic blood pressure 57 mm[Hg] Danii Roca MD, PhD Work Phone: [facility] 11-21-2023 09:15-0400 Heart rate 75 /min Danii Roca MD, PhD Work Phone: [facility] 11-21-2023 09:15-0400 Respiratory rate 16 /min Danii Roca MD, PhD Work Phone: [facility] 11-21-2023 09:15-0400 SaO2% (BldA) [Mass fraction] 100 % Danii Roca MD, PhD Work Phone: [facility] 11-21-2023 09:15-0400 Systolic blood pressure 109 mm[Hg] Danii Roca MD, PhD Work Phone: [facility] 10-16-2023 08:14-0400 Heart rate 70 /min Jackson Sumner MD Work Phone: [facility] 10-16-2023 08:14-0400 Respiratory rate 18 /min Jackson Sumner MD Work Phone: [facility] 10-16-2023 08:14-0400 SaO2% (BldA) [Mass fraction] 96 % Jackson Sumner MD Work Phone: [facility] 09-17-2023 13:00-0400 Body height 157.5 cm Juan Spann MD Work Phone: [facility] 09-17-2023 13:00-0400 Body mass index (BMI) [Ratio] 26.7 kg/m2 Juan Spann MD Work Phone: [facility] 09-17-2023 13:00-0400 Body weight 66.22 kg Juan Spann MD Work Phone: [facility] 09-17-2023 13:00-0400 Diastolic blood pressure 62 mm[Hg] Juan Spann MD Work Phone: [facility] 09-17-2023 13:00-0400 Heart rate 90 /min Juan Spann MD Work Phone: [facility] 09-17-2023 13:00-0400 Respiratory rate 18 /min Juan Spann MD Work Phone: [facility] 09-17-2023 13:00-0400 SaO2% (BldA) [Mass fraction] 99 % Juan Spann MD Work Phone: [facility] 09-17-2023 13:00-0400 Systolic blood pressure 108 mm[Hg] Juan Spann MD Work Phone: [facility] 08-06-2023 14:49-0400 Diastolic blood pressure 80 mm[Hg] Jackson Sumner MD Work Phone: [facility] 08-06-2023 14:49-0400 Heart rate 80 /min Jackson Sumner MD Work Phone: [facility] 08-06-2023 14:49-0400 Respiratory rate 15 /min Jackson Sumner MD Work Phone: [facility] 08-06-2023 14:49-0400 SaO2% (BldA) [Mass fraction] 98 % Jackson Sumner MD Work Phone: [facility] 08-06-2023 14:49-0400 Systolic blood pressure 129 mm[Hg] Jackson Sumner MD Work Phone: [facility] 07-17-2023 09:43-0400 Diastolic blood pressure 74 mm[Hg] Danii Roca MD Work Phone: [facility] 07-17-2023 09:43-0400 Heart rate 86 /min Danii Roca MD Work Phone: [facility] 07-17-2023 09:43-0400 Respiratory rate 18 /min Danii Roca MD Work Phone: [facility] 07-17-2023 09:43-0400 SaO2% (BldA) [Mass fraction] 96 % Danii Roca MD Work Phone: [facility] 07-17-2023 09:43-0400 Systolic blood pressure 115 mm[Hg] Danii Roca MD Work Phone: [facility] 06-26-2023 14:52-0400 Heart rate 90 /min Aj Prebish MANAGER MOBILITY.[employer] Work Phone: [facility] 06-26-2023 14:52-0400 Respiratory rate 16 /min Aj Prebish MANAGER MOBILITY.[employer] Work Phone: [facility] 06-26-2023 14:52-0400 SaO2% (BldA) [Mass fraction] 98 % Aj Prebish MANAGER MOBILITY.[employer] Work Phone: [facility] 06-17-2023 11:34-0400 Body temperature 98.01 [degF] Destini Lay PA-C Work Phone: [facility] 06-17-2023 11:34-0400 Body weight 68.04 kg Destini Lay PA-C Work Phone: [facility] 06-17-2023 11:34-0400 Diastolic blood pressure 68 mm[Hg] Destini Lay PA-C Work Phone: [facility] 06-17-2023 11:34-0400 Heart rate 92 /min Destini Lay PA-C Work Phone: [facility] 06-17-2023 11:34-0400 Respiratory rate 16 /min Destini Lay PA-C Work Phone: [facility] 06-17-2023 11:34-0400 SaO2% (BldA) [Mass fraction] 98 % Destini Lay PA-C Work Phone: [facility] 06-17-2023 11:34-0400 Systolic blood pressure 118 mm[Hg] Destini Lay PA-C Work Phone: [facility] 05-26-2023 09:02-0400 Diastolic blood pressure 66 mm[Hg] Jackson Sumner MD Work Phone: [facility] 05-26-2023 09:02-0400 Heart rate 78 /min Jackson Sumner MD Work Phone: [facility] 05-26-2023 09:02-0400 Respiratory rate 15 /min Jackson Sumner MD Work Phone: [facility] 05-26-2023 09:02-0400 SaO2% (BldA) [Mass fraction] 97 % Jackson Sumner MD Work Phone: [facility] 05-26-2023 09:02-0400 Systolic blood pressure 100 mm[Hg] Jackson Sumner MD Work Phone: [facility] 04-30-2023 15:43-0500 Diastolic blood pressure 54 mm[Hg] Jackson Sumner MD Work Phone: [facility] 04-30-2023 15:43-0500 Heart rate 83 /min Jackson Sumner MD Work Phone: [facility] 04-30-2023 15:43-0500 Respiratory rate 18 /min Jackson Sumner MD Work Phone: [facility] 04-30-2023 15:43-0500 SaO2% (BldA) [Mass fraction] 96 % Jackson Sumner MD Work Phone: [facility] 04-30-2023 15:43-0500 Systolic blood pressure 114 mm[Hg] Jackson Sumner MD Work Phone: [facility] 04-17-2023 13:59-0500 Heart rate 75 /min Jackson Sumner MD Work Phone: [facility] 04-17-2023 13:59-0500 Respiratory rate 16 /min Jackson Sumner MD Work Phone: [facility] 04-17-2023 13:59-0500 SaO2% (BldA) [Mass fraction] 99 % Jackson Sumner MD Work Phone: [facility] 02-10-2023 10:46-0500 Body temperature 97.39 [degF] Rl Corado MD Work Phone: [facility] 02-10-2023 10:46-0500 Body weight 71.67 kg Rl Corado MD Work Phone: [facility] 02-10-2023 10:46-0500 Diastolic blood pressure 72 mm[Hg] Rl Corado MD Work Phone: [facility] 02-10-2023 10:46-0500 Heart rate 82 /min Rl Corado MD Work Phone: [facility] 02-10-2023 10:46-0500 Respiratory rate 16 /min Rl Corado MD Work Phone: [facility] 02-10-2023 10:46-0500 SaO2% (BldA) [Mass fraction] 96 % Rl Corado MD Work Phone: [facility] 02-10-2023 10:46-0500 Systolic blood pressure 120 mm[Hg] Rl Corado MD Work Phone: [facility] 12-27-2022 12:23-0400 Body temperature 97.59 [degF] Lauren Nuñez MANAGER MOBILITY.[employer]TER [employer] Work Phone: [facility] 12-27-2022 12:23-0400 Body weight 70.76 kg Lauren Nuñez MANAGER MOBILITY.[employer]AFTER [employer]CHANICAL Work Phone: [facility] 12-27-2022 12:23-0400 Diastolic blood pressure 84 mm[Hg] Lauren Nuñez MANAGER MOBILITY.[employer]AFTER MECHANICAL Work Phone: [facility] 12-27-2022 12:23-0400 Heart rate 92 /min Lauren Nuñez MANAGER MOBILITY.[employer]AFTER MECHANICAL Work Phone: [facility] 12-27-2022 12:23-0400 Respiratory rate 20 /min Lauren Nuñez MANAGER MOBILITY.[employer]AFTER MECHANICAL Work Phone: [facility] 12-27-2022 12:23-0400 SaO2% (BldA) [Mass fraction] 97 % Lauren Nuñez MANAGER MOBILITY.[employer]AFTER MECHANICAL Work Phone: [facility] 12-27-2022 12:23-0400 Systolic blood pressure 151 mm[Hg] Lauren Nuñez MANAGER MOBILITY.[employer]AFTER MECHANICAL Work Phone: [facility] 07-22-2022 13:26-0400 Body height 156.8 cm Juan Spann MD Work Phone: [facility] 07-22-2022 13:26-0400 Body weight 71.22 kg Juan Spann MD Work Phone: [facility] 07-22-2022 13:26-0400 Diastolic blood pressure 78 mm[Hg] Juan Spann MD Work Phone: [facility] 07-22-2022 13:26-0400 Heart rate 90 /min Juan Spann MD Work Phone: [facility] 07-22-2022 13:26-0400 Respiratory rate 16 /min Juan Spann MD Work Phone: [facility] 07-22-2022 13:26-0400 Systolic blood pressure 122 mm[Hg] Juan Spann MD Work Phone: [facility] 07-15-2022 15:05-0400 Body temperature 96.8 [degF] Mariama Joyce APRN.[employer]AFTER MECHANICAL Work Phone: [facility] 07-15-2022 15:05-0400 Body weight 71.67 kg Mariama Joyce APRN.DRAFTER MECHANICAL Work Phone: [facility] 07-15-2022 15:05-0400 Diastolic blood pressure 80 mm[Hg] Mariama Joyce APRN.[employer]AFTER MECHANICAL Work Phone: [facility] 07-15-2022 15:05-0400 Heart rate 82 /min Mariama Joyce APRN.DRAFTER MECHANICAL Work Phone: [facility] 07-15-2022 15:05-0400 Respiratory rate 18 /min Mariama Joyce APRN.DRAFTER MECHANICAL Work Phone: [facility] 07-15-2022 15:05-0400 SaO2% (BldA) [Mass fraction] 98 % Mariama Joyce APRN.DRAFTER MECHANICAL Work Phone: [facility] 07-15-2022 15:05-0400 Systolic blood pressure 130 mm[Hg] Mariama Joyce APRN.DRAFTER MECHANICAL Work Phone: [facility] 04-19-2022 12:40-0500 Body weight 73.48 kg Destini ESPARZA-C Work Phone: [facility] 04-19-2022 12:40-0500 Diastolic blood pressure 70 mm[Hg] Destini Lay PA-C Work Phone: [facility] 04-19-2022 12:40-0500 Heart rate 89 /min Destini Lay PA-C Work Phone: [facility] 04-19-2022 12:40-0500 Respiratory rate 16 /min Destini Lay PA-C Work Phone: [facility] 04-19-2022 12:40-0500 SaO2% (BldA) [Mass fraction] 98 % Destini Lay PA-C Work Phone: [facility] 04-19-2022 12:40-0500 Systolic blood pressure 134 mm[Hg] Destini Lay PA-C Work Phone: [facility] 12-03-2021 12:45-0400 Body temperature 98.49 [degF] Destini Lay PA-C Work Phone: [facility] 12-03-2021 12:45-0400 Body weight 71.67 kg Destini Lay PA-C Work Phone: [facility] 12-03-2021 12:45-0400 Diastolic blood pressure 76 mm[Hg] Destini Lay PA-C Work Phone: [facility] 12-03-2021 12:45-0400 Heart rate 88 /min Destini Lay PA-C Work Phone: [facility] 12-03-2021 12:45-0400 Respiratory rate 18 /min Destinipaola Lay PA-C Work Phone: [facility] 12-03-2021 12:45-0400 Systolic blood pressure 120 mm[Hg] Destini Lay PA-C Work Phone: [facility] 09-05-2021 11:57-0400 Body temperature 97.9 [degF] Destini Lay PA-C Work Phone: [facility] 09-05-2021 11:57-0400 Body weight 73.94 kg Destini Lay PA-C Work Phone: [facility] 09-05-2021 11:57-0400 Diastolic blood pressure 62 mm[Hg] Destini Lay PA-C Work Phone: [facility] 09-05-2021 11:57-0400 Heart rate 88 /min Destinipaola Lay PA-C Work Phone: [facility] 09-05-2021 11:57-0400 Respiratory rate 16 /min Destini Lay PA-C Work Phone: [facility] 09-05-2021 11:57-0400 Systolic blood pressure 110 mm[Hg] Destini Lay PA-C Work Phone: [facility] NEGATED: Highlighted [id number] 12:12-0400 Body height 157.48 cm Jes Slydavider [facility] Work Phone: NEGATED: Highlighted [id number] 12:12-0400 Body height 157 cm Jes Armaser [facility] Work Phone: NEGATED: Highlighted [id number] 12:12-0400 Body mass index (BMI) [Ratio] 30.1 kg/m2 Jes Paweler [facility] Work Phone: NEGATED: Highlighted [id number] 12:12-0400 Body weight 74.39 kg Jes Armaser [facility] Work Phone: NEGATED: Highlighted [id number] 12:12-0400 Body weight 75 kg Jes Armaser [facility] Work Phone: Encounters Encounter Date Encounter Type Care Provider Facility Start: 01-18-2025 End: 01-18-2025 ambulatory Fazal aJckson Facility[facility] Start: 01-17-2025 ambulatory Dequan Ayala Facility :[facility] Start: 01-11-2025 End: 01-11-2025 ambulatory JUAN SPANN Facility:[facility] Start: 01-03-2025 End: 01-03-2025 ambulatory DEQUAN AYALA Facility:[facility] Start: 12-29-2024 End: 12-29-2024 ambulatory DESTINI LAY Facility:[facility] Start: 12-22-2024 Non-patient / Non-visit Dr. Prema Carbone [facility] Work Phone: Start: 12-22-2024 ambulatory Familia Ng Facility:[facility] Start: 12-22-2024 Non-patient / Non-visit Dr. Carlton RANDALL [facility] Start: 12-21-2024 End: 12-22-2024 ambulatory Chelsea Carbone Facility:[facility] Start: 12-21-2024 End: 12-22-2024 Evaluation and management of inpatient Dr. Chelsea Carbone DO -Progressive Care Unit Work Phone: Start: 12-21-2024 End: 12-22-[address] Juan Spann MD Work Phone: -[facility] Start: 12-18-2024 End: 12-18-2024 ambulatory JUAN SPANN Facility:[facility] Start: 12-06-2024 End: 12-06-2024 ambulatory JUAN SPANN Facility:[facility] Start: 11-17-2024 End: 11-17-2024 Refill Juan Spann MD Work Phone: [facility] Comment on above: Refill Request Start: 10-08-2024 End: 10-08-2024 Subsequent hospital visit by physician [facility] Work Phone: Radiology Comment on above: Multiple thyroid nod ules [E04.2] Start: 10-08-2024 End: 10-08-2024 ambulatory JUAN SPANN Facility:[facility] Start: 10-01-2024 End: 10-01-2024 Follow-up encounter Destini Lay PA-C Work Phone: [facility] Start: 09-17-2024 End: 09-17-2024 ambulatory JUAN SPANN Facility:[facility] Start: 09-17-2024 End: 09-17-2024 Patient encounter procedure Juan Spann MD Work Phone: [facility] Comment on above: Medicare annual well ness visit, subsequent (Primary Dx); Essential hypertension with goal blood pressure less than 140/90; Mixed hyperlipidemia; Multiple thyroid nodules; Bilateral leg edema; Anemia, chronic disease; Malignant melanoma of right shoulder (HCC); Restless leg syndrome; Vitamin B12 deficiency; Vitamin D deficiency; Osteopenia, senile; Spinal stenosis of lumbar region, unspecified whether neurogenic claudication present; Hypomagnesemia; Bruit; Valvular heart disease; Advance directive discussed with patient; Screening for depression; Encounter for screening examination for other mental health and behavioral disorders; Encounter for immunization Start: 09-17-2024 End: 09-17-2024 ambulatory JUAN SPANN Facility:[facility] Start: 07-07-2024 End: 07-07-2024 Postop follow up visit related to original px Jamey Collier MD Work Phone: [facility] Comment on above: 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); S/P insertion of spinal cord stimulator Start: 07-07-2024 End: 07-07-2024 ambulatory JAMEY COLLIER [facility] Start: 07-05-2024 End: 07-05-2024 Refill Sujatha Saldana APRN.CNP Work Phone: [facility] Comment on above: Refill Request Start: 06-28-2024 End: 06-28-2024 Refill Destini Lay PA-C Work Phone: [facility] Comment on above: Refill Request Start: 06-24-2024 End: 06-24-2024 ambulatory JAMEY COLLIER [facility] Start: 06-24-2024 End: 06-24-2024 Subsequent hospital visit by physician Jamey Collier MD Work Phone: [facility] Comment on above: 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 Work Phone: Start: 06-17-2024 End: 06-17-2024 Subsequent hospital visit by physician Med Echo/[facility] Comment on above: Preoperative examina tion; Systolic murmur; Leg swelling Start: 06-17-2024 End: 06-17-2024 ambulatory JUAN SPANN Facility:[facility] Start: 06-16-2024 End: 06-16-2024 ambulatory [facility] Start: 06-16-2024 End: 06-16-2024 Encounter for other preprocedural examination [facility] Start: 06-07-2024 End: 06-08-2024 Follow-up encounter Thang Shannon MD Work Phone: [facility] Comment on above: Results Start: 06-07-2024 End: 06-07-2024 ambulatory JUAN SAPNN Facility:[facility] Start: 06-03-2024 End: 06-03-2024 Follow-up encounter Juan Spann MD Work Phone: [facility] Comment on above: Results Start: 06-02-2024 End: 06-02-2024 ambulatory JUAN SPANN Facility:[facility] Start: 06-02-2024 Encounter for other preprocedural examination DESTINI LAY [facility] Start: 06-02-2024 End: 06-02-2024 ambulatory JUAN SPANN Facility:[facility] Start: 06-02-2024 End: 06-02-2024 Patient encounter procedure Juan Spann MD Work Phone: [facility] Comment on above: Pre-op examination ( Primary Dx); Lumbar radiculopathy; Essential hypertension with goal blood pressure less than 140/90 Start: 06-02-2024 End: 06-02-2024 Preprocedural examination done Juan Spann MD Work Phone: [facility] Work Phone: Start: 05-24-2024 End: 05-24-2024 Refill Juan Spann MD Work Phone: [facility] Comment on above: Refill Request Start: 05-18-2024 End: 05-18-2024 Telephone encounter Aj Graham APRN.[employer] Work Phone: [facility] Comment on above: Refill Request (jerald coxib (CELEBREX) 200 mg capsule) Start: 05-12-2024 End: 05-12-2024 Telephone encounter Danii Roca MD, PhD Work Phone: [facility] Comment on above: Patient Update (SCS IMPLANT ) Start: 05-04-2024 End: 05-04-2024 Patient encounter procedure Aj Graham APRN.[employer] Work Phone: [facility] Comment on above: Spinal stenosis, lum bar region, without neurogenic claudication (Primary Dx); Lumbar spondylosis; Lumbar radiculopathy Start: 05-04-2024 End: 05-04-2024 ambulatory JUAN SPANN Facility:[facility] Start: 05-03-2024 End: 05-03-2024 Office outpatient new 45 minutes Jamey Collier MD Work Phone: [facility] Comment on above: 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) Start: 05-03-2024 End: 05-03-2024 ambulatory JAMEY COLLIER [facility] Start: 05-03-2024 End: 05-03-2024 ambulatory DANII ROCA Facility:[facility] Start: 05-03-2024 End: 05-03-2024 Subsequent hospital visit by physician Alix [facility] [place] Work Phone: Radiology Comment on above: Lumbar radiculopathy [M54.16] Start: 04-27-2024 End: 04-27-2024 Patient encounter procedure Danii Roca MD, PhD Work Phone: [facility] Start: 04-27-2024 End: 04-27-2024 ambulatory Danii Roca MD, PhD Work Phone: [facility] Comment on above: Procedure (Scs trial ); Back Pain (Lower - bilateral - left is worse) Start: 04-26-2024 End: 04-26-2024 Telephone encounter Danii Roca MD, PhD Work Phone: [facility] Comment on above: Patient Question Start: 04-21-2024 End: 04-21-2024 Telephone encounter Danii Roca MD, PhD Work Phone: [facility] Comment on above: Patient Update (SCS TRIAL SCHEDULE ) Patient Update (CALL ED PATIENT SPOKE TO DAUGHTER AND SPENSER THEY BOTH CONFIRMED 04/27/24 IS A GOOD DAY ) Start: 04-20-2024 End: 04-20-2024 ambulatory Aj Preshanash MANAGER MOBILITY.[employer]CH[employer] Work Phone: [facility] Comment on above: Frustrated Start: 04-20-2024 End: 04-20-2024 Telephone encounter Danii Roca MD Work Phone: [facility] Comment on above: SCS update Start: 04-19-2024 End: 04-19-2024 Refill Juan Spann MD Work Phone: [facility] [place] Comment on above: Refill Request Start: 04-13-2024 End: 04-13-2024 Telemedicine consultation with patient Aj Pujamarkos MANAGER MOBILITY.[employer]AFTER MECHAN[employer] Work Phone: [facility] Start: 04-13-2024 End: 04-13-2024 ambulatory Aj Prebish MANAGER MOBILITY.[employer]AFTER MECHAN[employer] Work Phone: [facility] Comment on above: Lumbar radiculopathy (Primary Dx); Spinal stenosis, lumbar region, without neurogenic claudication; Lumbar spondylosis Start: 04-05-2024 End: 04-05-2024 Refill Juan Spann MD Work Phone: [facility] [place] Comment on above: Refill Request Start: 03-25-2024 End: 03-25-2024 Telephone encounter Danii Roca MD, PhD Work Phone: [facility] Comment on above: Procedure Follow Up (SCOTT TEFESI) Start: 03-23-2024 End: 03-23-2024 Patient encounter procedure Danii Roca MD, PhD Work Phone: [facility] Start: 03-23-2024 End: 03-23-2024 ambulatory Danii Roca MD, PhD Work Phone: [facility] Comment on above: Procedure (BL TFESI Lumbar) Start: 03-22-2024 End: 03-22-2024 Telephone encounter Destini Lay PA-C Work Phone: [facility] [place] Comment on above: Results Start: 03-19-2024 End: 03-19-2024 ambulatory JUAN SPANN Facility:[facility] Start: 03-19-2024 End: 03-19-2024 Patient encounter procedure Destini Lay PA-C Work Phone: [facility] [place] Comment on above: Essential hypertensi on with goal blood pressure less than 140/90 (Primary Dx); Mixed hyperlipidemia; Raynaud's phenomenon without gangrene; Valvular heart disease; Lumbar radiculopathy; Multiple thyroid nodules Start: 03-16-2024 End: 03-19-2024 ambulatory Juan Spann MD Work Phone: [facility] [place] Comment on above: Ropinole and another question Start: 03-09-2024 End: 03-09-2024 Refill Juan Spann MD Work Phone: [facility] [place] Comment on above: Refill Request Start: 02-13-2024 End: 02-13-2024 Refill Destini Lay PA-C Work Phone: [facility] [place] Comment on above: Refill Request Start: 02-02-2024 End: 02-02-2024 Telephone encounter Danii Roca MD, PhD Work Phone: [facility] Comment on above: Procedure Start: 01-30-2024 End: 01-30-2024 Patient encounter procedure Danii Roca MD, PhD Work Phone: [facility] Start: 01-30-2024 End: 01-30-2024 ambulatory Danii Roca MD, PhD Work Phone: [facility] Comment on above: Procedure (Caudal ); Leg Pain (Right - to the ankle) Start: 01-29-2024 End: 01-29-2024 Patient encounter procedure Danii Roca MD, PhD Work Phone: [facility] Comment on above: Lumbar radiculopathy (Primary Dx); Spinal stenosis, lumbar region, without neurogenic claudication Start: 01-29-2024 End: 01-29-2024 ambulatory JUAN DORSEYEY Facility:[facility] Start: 01-17-2024 ambulatory JUANJAJA SPANN [facility] ty:[id number] Start: 01-17-2024 End: 01-17-2024 Subsequent hospital visit by physician [facility] 1 Work Phone: [facility] Comment on above: Pain in thoracic spi ne [M54.6] Start: 01-13-2024 End: 01-13-2024 Patient encounter procedure Aj Graham APRN.[employer]AFTER MECHANICAL Work Phone: [facility] Comment on above: Lumbar radiculopathy (Primary Dx); Spinal stenosis, lumbar region, without neurogenic claudication; Lumbar spondylosis; Disorder of sacrum Start: 01-13-2024 End: 01-13-2024 ambulatory JUAN SPANN Facility:[facility] Start: 01-12-2024 End: 01-12-2024 Telephone encounter Aj Graham APRN.[employer]AFTER MECHANICAL Work Phone: [facility] Comment on above: Patient Question (Pa in meds not working) Start: 01-05-2024 End: 01-05-2024 Patient encounter procedure Stanton Moshe DO Work Phone: [facility] Comment on above: Encounter for assess ment of healthcare decision-making capacity (Primary Dx) Start: 12-31-2023 End: 12-31-2023 ambulatory Aj Graham APRN.DRAFTER MECHANICAL Work Phone: [facility] Start: 12-31-2023 End: 12-31-2023 Patient encounter procedure Aj Graham APRN.DRAFTER MECHANICAL Work Phone: [facility] Comment on above: Request Start: 12-26-2023 End: 12-26-2023 Refill Destini Lay PA-C Work Phone: [facility] [place] Comment on above: Refill Request Start: 12-18-2023 End: 12-19-2023 ambulatory Jacksno Sumner MD Work Phone: [facility] Start: 12-18-2023 End: 12-19-2023 Patient encounter procedure Jackson Sumner MD Work Phone: [facility] Comment on above: Request Start: 12-18-2023 End: 12-18-2023 Telephone encounter Destini Lay PA-C Work Phone: [facility] [place] Comment on above: Results Start: 12-17-2023 End: 12-17-2023 Patient encounter procedure Destini Lay PA-C Work Phone: [facility] [place] Comment on above: Essential hypertensi on with goal blood pressure less than 140/90 (Primary Dx); Encounter for immunization Start: 12-11-2023 End: 12-11-2023 Telephone encounter Aj Graham APRN.[employer]AFTER MECHANICAL Work Phone: [facility] Comment on above: Consult Start: 12-11-2023 End: 12-11-2023 Patient encounter procedure Aj Graham APRN.DRAFTER MECHANICAL Work Phone: [facility] Comment on above: Lumbar radiculopathy (Primary Dx); Spinal stenosis, lumbar region, without neurogenic claudication; Lumbar spondylosis; Pain in thoracic spine Start: 12-11-2023 End: 12-11-2023 ambulatory JUAN SPANN Facility:[facility] Start: 12-08-2023 End: 12-10-2023 ambulatory Jackson Sumner MD Work Phone: [facility] Start: 12-08-2023 End: 12-10-2023 Patient encounter procedure Jackson Sumner MD Work Phone: [facility] Comment on above: Decision Start: 12-01-2023 End: 12-01-2023 ambulatory Zo Metcalf RN Work Phone: Pharmacy Sales [facility] Management Start: 12-01-2023 End: 12-01-2023 Telephone encounter Destini Lay PA-C Work Phone: [facility] [place] Comment on above: Results Bi-weekly phone cont act (Recurring) for Transitional Care Management Start: 11-28-2023 End: 11-28-2023 Patient encounter procedure Destini Lay PA-C Work Phone: [facility] [place] Comment on above: Hospital discharge f ollow-up (Primary Dx); Encounter for immunization; Recurrent UTI (urinary tract infection); Anemia, unspecified type; Essential hypertension with goal blood pressure less than 140/90; Vitamin B12 deficiency; Hypomagnesemia Start: 11-27-2023 End: 11-28-2023 ambulatory Destini Lay PA-C Work Phone: [facility] [place] Start: 11-27-2023 End: 11-28-2023 Patient encounter procedure Destini Lay PA-C Work Phone: [facility] [place] Comment on above: Appointment tomorrow Start: 11-24-2023 End: 11-24-2023 Telephone encounter Danii Roca MD, PhD Work Phone: [facility] Comment on above: Procedure Start: 11-21-2023 End: 11-21-2023 ambulatory Danii Roca MD, PhD Work Phone: [facility] Comment on above: Procedure (LEFT TFES I LUMBAR); Back Pain (LOWER - BILATERAL ); Leg Pain (LEFT ) Start: 11-21-2023 End: 11-21-2023 Patient encounter procedure Danii Roca MD, PhD Work Phone: [facility] Start: 11-21-2023 End: 11-21-2023 ambulatory JACKSON SUMNER Facility:[facility] Start: 11-17-2023 End: 11-17-2023 ambulatory Zo Metcalf RN Work Phone: Pharmacy Sales Assistant Management Start: 11-17-2023 End: 11-17-2023 Chart abstracting Kelle Joyce MA [facility] [place] Comment on above: Hospital F/U ([facility] ) Transition Of Care I nitial phone contact for Transitional Care Management Start: 11-17-2023 End: 11-17-2023 E-mail encounter from caregiver Kelle Joyce MA [facility] [place] Start: 11-17-2023 End: 11-17-2023 Patient encounter procedure Kelle Joyce MA [facility] [place] Comment on above: Appointment Start: 11-14-2023 End: 11-14-2023 Chart abstracting Kelle Joyce MA [facility] [place] Comment on above: ER F/U ([facility] ) Start: 11-13-2023 End: 11-13-2023 ambulatory Jackson Sumner MD Work Phone: [facility] Start: 11-13-2023 End: 11-13-2023 Patient encounter procedure Jackson Sumner MD Work Phone: [facility] Comment on above: Medication Problem Start: 11-12-2023 End: 11-12-2023 Telephone encounter Aj Graham APRN.CNP Work Phone: [facility] Comment on above: Medication Problem Start: 11-09-2023 End: 11-11-2023 Telephone encounter Juan Spann MD Work Phone: [facility] [place] Comment on above: Results Start: 10-31-2023 End: 10-31-2023 Subsequent hospital visit by physician Bone Density [facility] Work Phone: Radiology Comment on above: Osteopenia, senile [ M85.80] Start: 10-16-2023 Telephone encounter Jackson Sumner MD Work Phone: [facility] Comment on above: Injections Start: 10-16-2023 End: 10-16-2023 Patient encounter procedure Jackson Sumner MD Work Phone: [facility] Comment on above: Lumbar radiculopathy (Primary Dx); Spinal stenosis, lumbar region, without neurogenic claudication; Primary osteoarthritis of both knees Start: 10-16-2023 End: 10-16-2023 ambulatory JACKSON SUMNER Facility:[facility] Start: 09-30-2023 ambulatory Jackson Sumner MD Work Phone: [facility] Start: 09-30-2023 Patient encounter procedure Jackson Sumner MD Work Phone: [facility] Comment on above: Help please Start: 09-29-2023 End: 09-29-2023 Subsequent hospital visit by physician [facility] Work Phone: Radiology Comment on above: Multiple thyroid nod ules [E04.2] Start: 09-17-2023 End: 09-17-2023 Patient encounter procedure Juan Spann MD Work Phone: [facility] [place] Comment on above: Medicare annual well ness visit, subsequent (Primary Dx); Essential hypertension with goal blood pressure less than 140/90; Mixed hyperlipidemia; Bilateral leg edema; Multiple thyroid nodules; Insomnia, unspecified type; Restless leg syndrome; Malignant melanoma of right shoulder (HCC); Non morbid obesity; Advance directive discussed with patient; Osteopenia, senile; Spinal stenosis of lumbar region, unspecified whether neurogenic claudication present; Hypokalemia; Hyponatremia; Elevated alkaline phosphatase level; Elevated LFTs; Encounter for immunization; Anemia, unspecified type; Primary ovarian failure; Vitamin D deficiency Start: 08-17-2023 Refill Sujatha reyes APRN.CNP Work Phone: [facility] [place] Comment on above: Refill Request Start: 08-11-2023 End: 08-11-2023 OT/PT/Speech Visit [facility] Comment on above: 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); Lumbar radiculopathy; Lumbar spondylosis; Disorder of sacrum Start: 08-06-2023 End: 08-06-2023 Patient encounter procedure Jackson Sumner MD Work Phone: [facility] Start: 08-06-2023 End: 08-06-2023 ambulatory Jackson Sumner MD Work Phone: [facility] Comment on above: Injections (LEFT GEN ICULAR RFA); Knee Pain (LEFT) Start: 07-25-2023 End: 07-25-2023 ambulatory London Uday PT Work Phone: [facility] Start: 07-25-2023 End: 07-25-2023 Telephone encounter Aj Graham APRN.DRAFTER MECHANICAL Work Phone: [facility] Comment on above: Injection Questions Lumbar radiculopathy ; Spinal stenosis, lumbar region, without neurogenic claudication; Lumbar spondylosis; Disorder of sacrum Start: 07-23-2023 End: 07-23-2023 Telemedicine consultation with patient Aj Graham APRN.[employer]AFTER MECHANICAL Work Phone: [facility] Start: 07-23-2023 End: 07-23-2023 ambulatory Aj Graham APRN.DRAFTER MECHANICAL Work Phone: [facility] Comment on above: 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 (Primary Dx) Start: 07-18-2023 Telephone encounter Danii natarajan MD Work Phone: [facility] Comment on above: Procedure Follow Up (Dr. Roca 07/17/23) Start: 07-17-2023 End: 07-17-2023 Patient encounter procedure Danii Roca MD Work Phone: [facility] Start: 07-17-2023 End: 07-17-2023 ambulatory Danii Roca MD Work Phone: [facility] Comment on above: Procedure (RIGHT GEN ICULAR ); Knee Pain (LEFT KNEE PAIN) Start: 07-10-2023 Refill Destini Logan on PA-C Work Phone: [facility] [place] Comment on above: Refill Request Start: 07-04-2023 Telephone encounter Destini rosario PA-C Work Phone: [facility] [place] Comment on above: Results Start: 07-03-2023 Telephone encounter Destini rosario PA-C Work Phone: [facility] [place] Comment on above: Results Start: 06-30-2023 Refill Juan zuleta MD Work Phone: [facility] [place] Comment on above: Refill Request Start: 06-26-2023 End: 06-26-2023 Office outpatient visit 25 minutes Aj Graham APRN.DRAFTER MECHANICAL Work Phone: [facility] Comment on above: 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 (Primary Dx); Lumbar radiculopathy; Spinal stenosis, lumbar region, without neurogenic claudication; Lumbar spondylosis; Disorder of sacrum; Malignant melanoma of right shoulder (HCC) Start: 06-26-2023 End: 06-26-2023 ambulatory JUAN SPANN Facility:[facility] Start: 06-26-2023 Telephone encounter Aj sosa APRN.DRAFTER MECHANICAL Work Phone: [facility] Comment on above: Injections (Question s) Start: 06-24-2023 End: 06-24-2023 ambulatory Nurse Intm/Famp Triage [facility] Work Phone: Nurse Phone Triage Comment on above: Left Toe/Ankle Pain Start: 06-24-2023 Telephone encounter Jackson Sumner MD Work Phone: [facility] Comment on above: Patient Question Start: 06-18-2023 Telephone encounter Destini rosario PA-C Work Phone: [facility] [place] Comment on above: Results Start: 06-17-2023 End: 06-17-2023 Patient encounter procedure Destini EATONC Work Phone: [facility] [place] Comment on above: Great toe pain, left (Primary Dx); Candidiasis of skin; Spinal stenosis of lumbar region, unspecified whether neurogenic claudication present Start: 05-28-2023 Telephone encounter Jackson Sumner MD Work Phone: [facility] Comment on above: Procedure Follow Up (LEFT KNEE INJECTION) Start: 05-26-2023 End: 05-26-2023 Patient encounter procedure Jackson Sumner MD Work Phone: [facility] Start: 05-26-2023 End: 05-26-2023 ambulatory Jackson Sumner MD Work Phone: [facility] Comment on above: Procedure (L. Knee i njection) Start: 05-18-2023 Refill Juan zuleta MD Work Phone: [facility] [employer] Comment on above: Refill Request Start: 05-12-2023 Telephone encounter Jackson Sumner MD Work Phone: [facility] Start: 05-08-2023 Refill Sujatha reyes APRN.CNP Work Phone: [facility] [place] Comment on above: Refill Request Start: 05-02-2023 Telephone encounter Jackson Sumner MD Work Phone: [facility] Comment on above: Procedure Follow Up (Spoke with patient following up from procedure. Patient states they are doing well, no questions or concerns at this time. //Liudmila Ta MA) Start: 05-01-2023 Refill Destini mann PA-C Work Phone: [facility] [place] Comment on above: Refill Request Start: 04-30-2023 End: 04-30-2023 ambulatory Jackson Sumner MD Work Phone: [facility] Comment on above: Injections (TFESI) Start: 04-30-2023 End: 04-30-2023 Patient encounter procedure Jackson Sumner MD Work Phone: [facility] Start: 04-17-2023 End: 04-17-2023 Subsequent hospital visit by physician Xr [facility] [place] Work Phone: Radiology Comment on above: 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 [M17.0] Start: 04-17-2023 End: 04-17-2023 Patient encounter procedure Jackson Sumner MD Work Phone: [facility] Comment on above: Spinal stenosis, lum bar region, without neurogenic claudication (Primary Dx); Lumbar radiculopathy; Lumbar spondylosis; Primary osteoarthritis of both knees Start: 04-17-2023 Telephone encounter Jackson Sumner MD Work Phone: [facility] Comment on above: Injection Questions Start: 04-14-2023 Refill Destini Logan on PA-C Work Phone: [facility] Comment on above: Refill Request Start: 03-21-2023 End: 03-21-2023 Subsequent hospital visit by physician Xr [facility] [place] Work Phone: Radiology Comment on above: Spinal stenosis of l umbar region, unspecified whether neurogenic claudication present [M48.061] Start: 02-25-2023 End: 02-25-2023 Subsequent hospital visit by physician Xr [facility] [place] Work Phone: Radiology Comment on above: Acute hip pain, righ t [M25.551] Start: 02-17-2023 ambulatory Juan zuleta MD Work Phone: [facility] Comment on above: covid Start: 02-14-2023 ambulatory Rl das MD Work Phone: [facility] Comment on above: Sinus Problem Start: 02-10-2023 End: 02-10-2023 Patient encounter procedure Rl Corado MD Work Phone: [facility] Comment on above: Acute non-recurrent sinusitis, unspecified location (Primary Dx) Start: 12-27-2022 End: 12-27-2022 Patient encounter procedure Lauren Nuñez MANAGER MOBILITY.DRAFTER MECHANICAL Work Phone: [facility] Comment on above: Paronychia of finger of right hand (Primary Dx) Start: 12-20-2022 Refill Destini Logan on PA-C Work Phone: [facility] [place] Comment on above: Refill Request Start: 12-06-2022 End: 12-06-2022 ambulatory Immun[facility] Nurse [place] Work Phone: [facility] [place] Start: 11-15-2022 Refill Juan zuleta MD Work Phone: [facility] [place] Comment on above: Refill Request Start: 10-17-2022 Refill Juan zuleta MD Work Phone: [facility] [place] Comment on above: Refill Request Start: 10-14-2022 Refill Nathalie Liang MA [facility] Comment on above: Refill Request Start: 10-10-2022 Refill Juan zuleta MD Work Phone: [facility] [place] Comment on above: Refill Request Start: 09-16-2022 ambulatory Wendi Alonso RN [employer] Comment on above: low blood pressure Start: 07-29-2022 End: 07-29-2022 Subsequent hospital visit by physician [facility] Work Phone: Radiology Comment on above: Multiple thyroid nod ules [E04.2] Start: 07-22-2022 End: 07-22-2022 Patient encounter procedure Juan Spann MD Work Phone: [facility] [place] Comment on above: Medicare annual well [facility] visit, subsequent (Primary Dx); Essential hypertension with goal blood pressure less than 140/90; Mixed hyperlipidemia; Bilateral leg edema; Multiple thyroid nodules; Insomnia, unspecified type; Restless leg syndrome; Malignant melanoma of right shoulder (HCC); Vitamin D deficiency; Valvular heart disease; Vertigo; Dysuria; Urine frequency; Advance directive discussed with patient Start: 07-15-2022 End: 07-15-2022 Patient encounter procedure Mariama Joyce APRN.CNP Work Phone: [facility] Comment on above: Urinary frequency (P rimary Dx) Start: 07-07-2022 Refill Destini Logan on PA-C Work Phone: [facility] [place] Comment on above: Refill Request Start: 05-23-2022 Telephone encounter Destini Renetta rosario PA-C Work Phone: [facility] [place] Comment on above: Results Start: 05-20-2022 Refill Sujatha Hernandez e MANAGER MOBILITY.[employer]AFTER MECHANICAL Work Phone: [facility] [place] Comment on above: Refill Request Start: 05-18-2022 Refill Sujatha Hernandez e MANAGER MOBILITY.DRAFTER MECHANICAL Work Phone: [facility] [place] Comment on above: Refill Request Start: 05-16-2022 Refill Destini Logan on PA-C Work Phone: [facility] [place] Comment on above: Refill Request Start: 05-07-2022 Refill Destini Logan on PA-C Work Phone: [facility] [place] Comment on above: Refill Request Start: 04-22-2022 Telephone encounter Destini Renetta aguerojohnathan PA-C Work Phone: [facility] [place] Comment on above: Results Start: 04-19-2022 End: 04-19-2022 Office outpatient visit 25 minutes Destini Alireza PA-C Work Phone: [facility] [place] Comment on above: Pruritus (Primary Dx ); Hypokalemia; Essential hypertension with goal blood pressure less than 140/90; Abnormal thyroid blood test; Mixed hyperlipidemia; Vitamin D deficiency Start: 04-16-2022 Refill Destini Logan on PA-C Work Phone: [facility] [place] Comment on above: Refill Request Start: 01-04-2022 End: 01-04-2022 Refill Juan Spann MD Work Phone: [facility] [place] Comment on above: Refill Request Start: 12-17-2021 Telephone encounter Dequan haines MD Work Phone: Orthopaedics Comment on above: Patient Update Start: 12-04-2021 Refill Destini Logan on PA-C Work Phone: [facility] [place] Comment on above: Refill Request Start: 12-03-2021 End: 12-03-2021 Patient encounter procedure Destini Lay PA-C Work Phone: [facility] [place] Comment on above: Mixed hyperlipidemia (Primary Dx); Essential hypertension with goal blood pressure less than 140/90; Restless leg syndrome; Vertigo; Carpal tunnel syndrome, left; Valvular heart disease Start: 10-25-2021 Telephone encounter Destini rosario PA-C Work Phone: [facility] [place] Comment on above: Results Start: 10-24-2021 End: 10-24-2021 Subsequent hospital visit by physician [facility] [facility] (I-Stat/1.5t) Work Phone: Radiology Comment on above: Injury of head, init ial encounter [S09.90XA] Start: 10-17-2021 Refill Destini mann PA-C Work Phone: [facility] Comment on above: Refill Request Start: 09-20-2021 Telephone encounter Juan Spann MD Work Phone: [facility] Comment on above: Patient Update Start: 09-05-2021 End: 09-05-2021 Patient encounter procedure Destini Lay PA-C Work Phone: [facility] Comment on above: Vertigo (Primary Dx) ; Injury of head, initial encounter Start: 08-27-2021 ambulatory Juan zuleta MD Work Phone: [facility] Comment on above: Issue Start: 07-09-2021 Refill Juan zuleta MD Work Phone: [facility] Comment on above: Refill Request Start: 06-24-2021 Refill Juan zuleta MD Work Phone: Family [facility] Comment on above: Refill Request Start: 04-23-2021 Patient encounter procedure Juan Spann MD Work Phone: [facility] Work Phone: Start: 10-13-2014 End: 03-27-2016 Patient encounter status Juan Spann MD Work Phone: [facility] Start: 08-24-2008 End: 07-29-2011 Patient encounter status Juan Spann MD Work Phone: [facility] Work Phone: Procedures Date Procedure Procedure Detail Performing Clinician Start: 12-22-[address] Juan Spann MD Work Phone: Start: 12-21-2024 Urnls dip stick/tabl et reagent auto microscopy Dr. Juan Spann MD Work Phone: Start: 12-21-2024 Radiologic exam ches t [address] Juan Spann MD Work Phone: Start: 12-21-2024 Ct abdomen & pelvis w/contrast material Dr. Juan Spann MD Work Phone: Start: 09-17-2024 PFIZER-BIONTECH COVI D-19 VACCINE AGE 12+ YR (COMIRNATY) Juan Spann MD Work Phone: Start: 09-17-2024 Adult depression screening assessment Juan Spann MD Work Phone: Start: 06-24-2024 PULSE OXIMETRY, CONTINUOUS Daphne Alford MD Work Phone: Start: 06-24-2024 XR tomography Unspecified body region Jamey Collier MD Work Phone: Start: 01-17-2024 Mri spinal canal thoracic w/o contrast linneal Aj Graham APRN.CNP Work Phone: Start: 11-28-2023 PFIZER-BIONTECH COVI D-19 VACCINE AGE 12+ YR Destini Lay PA-C Work Phone: Start: 05-26-2023 US OTHER-INJECTION ( POC) MODESTO USE ONLY Jackson Sumner MD Work Phone: Start: 04-17-2023 Radiologic exam knee complete 4/more views Jackson Sumner MD Work Phone: Start: 03-21-2023 Radex spine lumbosac ral 2/3 views Destini Lay PA-C Work Phone: Start: 02-25-2023 Radex hip unilateral with pelvis 2-3 views Thang Shannon MD Work Phone: Start: 12-06-2022 PFIZER-BIONTECH COVI D-19 VACCINE ( SEASON) AGE 12+ YR Lyle Sainz MD Work Phone: Start: 12-06-2022 INFLUENZA VACCINE, P RSV FREE, AGE 65+ YR, HIGH DOSE, QUADRIVALENT (FLUZONE HIGH-DOSE) Lyle Sainz MD Work Phone: Start: 07-29-2022 Us soft tissue head & neck real time imge docm Juan Spann MD Work Phone: Start: 07-22-2022 Urnls dip stick/tabl et rgnt auto w/o microscopy Juan Spann MD Work Phone: Start: 07-15-2022 Urnls dip stick/tabl et rgnt auto w/o microscopy Leidy Mosher MANAGER MOBILITY.[employer] Work Phone: Start: 01-04-2022 INFLUENZA SEASONAL QUADRIVALENT HIGH DOSE AGE 65+ Juan Spann MD Work Phone: Start: 01-04-2022 PFIZER-BIONTECH COVI D-19 BIVALENT BOOSTER VACCINE, AGE 12+ YR Juan Spann MD Work Phone: Start: 10-24-2021 Mri brain brain stem w/o contrast material Destini Lay PA-C Work Phone: Start: 05-31-2021 End: 05-31-2021 BP scrn no perf at interval Paula Kevin MD Work Phone: Start: 05-31-2021 End: 05-31-2021 Calc BMI abv up leandra f/u Paula Kevin MD Work Phone: Start: 05-31-2021 End: 05-31-2021 Current tobacco non-user cad cap copd pv dm Paula Kevin MD Work Phone: Start: 05-31-2021 End: 05-31-2021 Docrev cur meds by adam Kevin MD Work Phone: Start: 05-31-2021 End: 05-31-2021 No doc of pain Paula Kevin MD Work Phone: Start: 05-31-2021 End: 05-31-2021 Patient encounter procedure Paula Kevin MD Work Phone: NEGATED: Highlighted rowStart: 05-31-2021 End: 05-31-2021 Documentation of current medications Jes Garcia LPN Plan of Treatment Date Care Activity Detail Author Start: 09-18-2027 Diabetes Screening Diabetes [facility] Start: 06-19-2027 Diabetes Screening Diabetes [facility] Start: 06-08-2027 Diabetes Screening Diabetes [facility] Start: 06-03-2027 Diabetes Screening Diabetes [facility] Start: 11-27-2026 Diabetes Screening Diabetes [facility] Start: 11-04-2026 Diabetes Screening Diabetes [facility] Start: 09-14-2026 Diabetes Screening Diabetes Screentn g [facility] Start: 07-02-2026 Diabetes Screening Diabetes [facility] Start: 09-17-2025 Anxiety Screening Anxiety Screening [facility] Start: 09-17-2025 Depression Screening Depression Scre ening [facility] Start: 09-17-2025 Medicare Annual Well ness Visit Medicare Annual Wellness Visit [facility] Start: 09-17-2025 Urine microalbumin profile DTaP,Tdap,Td Vaccine (2 - Tdap) [facility] Comment on above: Postponed from 09/16 (Insurance Coverage) Start: 04-19-2025 DIABETES SCREEN DIABETES SCREEN [facility] Start: 04-19-2025 Diabetes Screening Diabetes Screenin g [facility] Start: 03-21-2025 End: 03-21-2025 Patient encounter procedure 03/21/2025 12:20 PM EST Office Visit [facility] [address] [place] [address] Destini Lay PA-C [address] [facility] [address] follow up 6 months [facility] Comment on above: follow up 6 months Start: 03-04-2025 End: 06-03-2025 CBC W Auto Differential panel - Blood COMPLETE BLOOD COUNT AND DIFFERENTIAL Lab Routine Anemia, chronic disease Expected: 03/04/2025, Expires: 06/03/2025 [facility] Comment on above: Expected: 03/04/2025 , Expires: 06/03/2025 Start: 03-04-2025 End: 06-03-2025 Hepatic function 2000 panel - Serum or Plasma HEPATIC FUNCTION PNL Lab Routine Mixed hyperlipidemia Expected: 03/04/2025, Expires: 06/03/2025 [facility] Comment on above: Expected: 03/04/2025 , Expires: 06/03/2025 Start: 03-04-2025 End: 06-03-2025 LIPID PANEL, NONFASTING LIPID PANEL, NONFASTING Lab Routine Essential hypertension with goal blood pressure less than 140/90 Mixed hyperlipidemia Expected: 03/04/2025, Expires: 06/03/2025 [facility] Comment on above: Expected: 03/04/2025 , Expires: 06/03/2025 Start: 12-22-2024 Patient discharge [facility] Start: 12-21-2024 Following clinical pathway protocol [facility] Start: 12-21-2024 Assessment of risk o f venous thromboembolism [facility] Start: 12-21-2024 Insertion of cathete r into peripheral vein [facility] Start: 12-21-2024 Measuring intake and output [facility] Start: 12-21-2024 Providing care accor ding to standard [facility] Start: 12-21-2024 Provision of activit y privileges [facility] Start: 12-21-2024 Referral for physica l therapy [facility] Start: 12-21-2024 Referral to occupati onal therapist [facility] Start: 12-21-2024 [facility] Start: 12-21-2024 Admission procedure [facility] Start: 12-21-2024 [facility] Start: 12-03-2024 DIABETES SCREEN DIABETES SCREEN [facility] Start: 11-08-2024 Influenza vaccination Influenza Vacc ine (#1) [facility] Start: 10-08-2024 End: 10-08-2024 Patient encounter procedure [facility] Comment on above: Bruit [R09.89] Multiple thyroid nod ules [E04.2] Start: 09-17-2024 End: 12-17-2024 25-hydroxyvitamin D3 [Mass/volume] in Serum or Plasma [facility] Comment on above: Expected: 09/17/2024 , Expires: 12/17/2024 Start: 09-17-2024 End: 12-17-2024 Cobalamin (Vitamin B12) [Mass/volume] in Serum or Plasma [facility] Work Phone: Comment on above: Expected: 09/17/2024 , Expires: 12/17/2024 Start: 09-17-2024 End: 12-17-2024 Comprehensive metabolic 2000 panel - Serum or Plasma [facility] Comment on above: Expected: 09/17/2024 , Expires: 12/17/2024 Start: 09-17-2024 End: 12-17-2024 Magnesium [Mass/volume] in Serum or Plasma [facility] Comment on above: Expected: 09/17/2024 , Expires: 12/17/2024 Start: 09-17-2024 End: 12-17-2024 Thyrotropin [Units/volume] in Serum or Plasma [facility] Comment on above: Expected: 09/17/2024 , Expires: 12/17/2024 Start: 09-17-2024 End: 12-17-2024 Urinalysis complete panel - Urine URINALYSIS, WITH MICROSCOPIC Lab Routine Essential hypertension with goal blood pressure less than 140/90 Mixed hyperlipidemia Expected: 09/17/2024, Expires: 12/17/2024 [facility] Comment on above: Expected: 09/17/2024 , Expires: 12/17/2024 Start: 09-17-2024 End: 09-17-2024 Patient encounter procedure [facility] Comment on above: Medicare Wellness Start: 09-16-2024 Covid-19 Vaccine ( season) Covid-19 Vaccine ( season) [facility] Comment on above: Postponed from 04/07 (Declined at this time) Start: 09-16-2024 RSV Vaccine (1 - 1-d ose 60+ series) RSV Vaccine (1 - 1-dose 60+ series) [facility] Comment on above: Postponed from 12/07 (Declined at this time) Start: 09-16-2024 Shingrix Vaccine (3 of 3) Shingrix Vaccine (3 of 3) [facility] Comment on above: Postponed from 11/09 (Insurance Coverage) Start: 09-16-2024 Urine microalbumin profile DTaP,Tdap,Td Vaccine (2 - Tdap) [facility] Comment on above: Postponed from 09/16 (Insurance Coverage) Start: 07-07-2024 End: 07-07-2024 Patient encounter procedure 07/07/2024 1:00 PM EDT Office Visit [facility] [address] [place] [id number] [place] [address] Department [place] [address] [facility] Start: 07-06-2024 End: 07-06-2024 Patient encounter procedure 07/06/2024 3:00 PM EDT Office Visit [facility] [address] [id number] Aj Graham APRN.[facility] [address] [place] [address] Follow up in 2 months [facility] Comment on above: Follow up in 2 month s Start: 06-24-2024 End: 06-24-2024 Admission to same day surgery center 06/24/2024 6:50 AM EDT - 06/24/2024 8:40 AM EDT Surgery [facility] [place] [address] [place] [address] [place] [address] Department [place] [address] Percutaneous Thoracic Spinal Cord Stimulator Electrodes and Generator Placement (Medtronic) [03728 (CPT ) +2 more] [facility] [place] Comment on above: Percutaneous Thoraci c Spinal Cord Stimulator Electrodes and Generator Placement (Medtronic) [16599 (CPT ) +2 more] Start: 06-24-2024 End: 06-24-2024 Prq impltj nstim electrode array epidural INSERTION, ELECTRODE LEAD, SPINAL CORD STIMULATOR Postlaminectomy syndrome of lumbar region 06/24/2024 6:50 AM EDT [facility] [place] Start: 06-24-2024 Subsequent hospital visit by physician 06/24/2024 5:20 AM EDT Hospital [place] [facility] [place] [address] [place] [address] [place] [address] [facility] Department [place] [address] [facility] [place] Start: 06-07-2024 End: 09-06-2024 Comprehensive metabolic 2000 panel - Serum or Plasma COMPREHENSIVE METABOLIC PANEL Lab Routine Hyperkalemia Expected: 06/07/2024, Expires: 09/06/2024 [facility] Work Phone: Comment on above: Expected: 06/07/2024 , Expires: 09/06/2024 Start: 06-03-2024 End: 09-02-2024 Basic metabolic 2000 panel - Serum or Plasma BASIC METABOLIC PANEL Lab Routine Renal insufficiency Hyperkalemia Expected: 06/03/2024, Expires: 09/02/2024 [facility] Work Phone: Comment on above: Expected: 06/03/2024 , Expires: 09/02/2024 Start: 06-02-2024 End: 06-02-2024 Patient encounter procedure 06/02/2024 10:40 AM EDT Office Visit [facility] [address] [place] [address] Juan Spann MD [address] [place] [phone] Pre op - Spinal Cod Stimulator [facility] Comment on above: Pre op - Spinal Cod Stimulator Start: 05-27-2024 COVID-19 Vaccine ( season) COVID-19 Vaccine () [facility] Start: 05-27-2024 Covid-19 Vaccine () Covid-19 Vaccine () [facility] Start: 05-12-2024 End: 05-12-2024 Patient encounter procedure 05/12/2024 9:00 AM EST Procedure [facility] [address] [facility] [address] [place] [address] Danii Roca MD, PhD [address] [place], [place] [address] [facility] consult [facility] Comment on above: [facility] consult Start: 05-08-2024 DIABETES SCREEN DIABETES SCREEN [facility] Start: 05-07-2024 End: 05-07-2024 Patient encounter procedure 05/07/2024 12:00 PM EST Procedure [facility] [address] [address] Danii Roca MD, PhD [address] [place], [place] [id number] [facility] Comment on above: [facility] consult Start: 05-04-2024 End: 05-04-2024 Patient encounter procedure 05/04/2024 1:00 PM EST Office Visit [facility] [address] [facility] [address] [place], [place] [id number] Aj Graham APRN.[employer] [address] [place] [address] LEAD PULL [facility] Comment on above: LEAD PULL Start: 04-27-2024 End: 04-27-2024 ambulatory [facility] Comment on above: Medtronic Dx: Lumbar radiculopathy [M54.16 (ICD-10-CM)]; Spinal stenosis, lumbar region, without neurogenic claudication [M48.061 (ICD-10-CM)] Start: 04-13-2024 End: 04-13-2024 Follow-up encounter 04/13/2024 4:00 PM [facility] [address] [place] [address] Aj Graham APRN.[employer] [address] [place] [address] follow up [facility] Comment on above: follow up from injec tions Start: 03-23-2024 End: 03-23-2024 ambulatory [facility] Comment on above: bilateral L2/3 TFESI , baby aspirin AUTH GOOD - CAD (MED ICARE A&B 03/10/24 - 03/09/25) bilateral L2/3 TFESI, baby aspirin Start: 03-19-2024 End: 03-19-2024 Patient encounter procedure [facility] Comment on above: 6 month followu up Start: 03-05-2024 End: 06-04-2024 CBC W Auto Differential panel - Blood COMPLETE BLOOD COUNT AND DIFFERENTIAL Lab Routine Anemia, unspecified type Expected: 03/05/2024, Expires: 06/04/2024 [facility] Comment on above: Expected: 03/05/2024 , Expires: 06/04/2024 Start: 03-05-2024 End: 06-04-2024 Hepatic function 2000 panel - Serum or Plasma HEPATIC FUNCTION PNL Lab Routine Mixed hyperlipidemia Elevated LFTs Expected: 03/05/2024, Expires: 06/04/2024 [facility] Comment on above: Expected: 03/05/2024 , Expires: 06/04/2024 Start: 03-05-2024 End: 06-04-2024 LIPID PANEL, NONFASTING LIPID PANEL, NONFASTING Lab Routine Mixed hyperlipidemia Expected: 03/05/2024, Expires: 06/04/2024 [facility] Comment on above: Expected: 03/05/2024 , Expires: 06/04/2024 Start: 01-30-2024 End: 01-30-2024 ambulatory 01/30/2024 12:10 PM EST Procedure [facility] [address] [address] Danii Roca MD, PhD [address] [place] [address] AUTH GOOD (TB) NPCR---- Caudal SHERMAN, baby aspirin [facility] Comment on above: AUTH GOOD (TB) NPCR- --- Caudal SHERMAN, baby aspirin Start: 01-29-2024 End: 01-29-2024 Patient encounter procedure 01/29/2024 9:30 AM EST Office Visit [facility] [address] [address] Danii Roca MD, PhD [address] [place], [place] [id number] [facility] consult [facility] Comment on above: SCS consult Start: 01-17-2024 End: 01-17-2024 Patient encounter procedure 01/17/2024 11:00 AM EST Appointment [facility] [address] [place] [address] Pain in thoracic spine [M54.6] [facility] Comment on above: Pain in thoracic spi ne [M54.6] Start: 01-15-2024 End: 01-15-2024 Patient encounter procedure 01/15/2024 10:45 AM EST Office Visit [facility] [address] [facility] [place] [address] Aj Graham APRN.[employer] [address] [place] [address] follow up SHERMAN [facility] Comment on above: follow up SHERMAN Start: 01-13-2024 End: 01-13-2024 Patient encounter procedure 01/13/2024 2:00 PM EST Office Visit [facility] [address] [facility] [address] [place] [address] Aj Graham APRN.[employer] [address] [place] [address] discuss new leg pain [facility] Comment on above: discuss new leg pain Start: 01-09-2024 End: 04-09-2024 Cobalamin (Vitamin B12) [Mass/volume] in Serum or Plasma VITAMIN B12 Lab Routine Vitamin B12 deficiency Expected: 01/09/2024, Expires: 04/09/2024 [facility] Work Phone: Comment on above: Expected: 01/09/2024 , Expires: 04/09/2024 Start: 01-05-2024 End: 01-05-2024 Patient encounter procedure 01/05/2024 1:00 PM EDT Office Visit [facility] [address] [place] [address] Stanton Mesa DO [address] [place] [address] [facility] Comment on above: [facility] Start: 12-26-2023 End: 12-26-2023 ambulatory [facility] Comment on above: Caudal SHERMAN AUTH GOOD-- 4-03/09/2024 (TB) Caudal SHERMAN Start: 12-12-2023 End: 12-12-2023 Patient encounter procedure 12/12/2023 11:40 AM EDT Office Visit [facility] [address] [facility] [place] [address] Destini Lay PA-C [address] [facility] [place] [id number] 2 week bp check [facility] Comment on above: 2 week bp check Start: 12-11-2023 End: 12-11-2023 Patient encounter procedure 12/11/2023 10:15 AM EDT Office Visit [facility] [address] [place] [address] Aj Graham APRN.[employer] [address] [place] [address] TFESI/2 month follow up [facility] Comment on above: TFESI/2 month follow up Start: 12-01-2023 End: 03-01-2024 Bacteria identified in Urine by Culture URINE CULTURE Microbiology Routine Recurrent UTI (urinary tract infection) Expected: 12/01/2023, Expires: 03/01/2024 [facility] Work Phone: Comment on above: Expected: 12/01/2023 , Expires: 03/01/2024 Start: 12-01-2023 End: 03-01-2024 Sodium [Moles/volume] in Serum or Plasma SODIUM/NA Lab Routine Hyponatremia Expected: 12/01/2023, Expires: 03/01/2024 [facility] Comment on above: Expected: 12/01/2023 , Expires: 03/01/2024 Start: 11-28-2023 End: 02-27-2024 Bacteria identified in Urine by Culture [facility] Comment on above: Expected: 11/28/2023 , Expires: 02/27/2024 Start: 11-28-2023 End: 02-27-2024 Basic metabolic 2000 panel - Serum or Plasma [facility] Comment on above: Expected: 11/28/2023 , Expires: 02/27/2024 Start: 11-28-2023 End: 02-27-2024 Cobalamin (Vitamin B12) [Mass/volume] in Serum or Plasma [facility] Comment on above: Expected: 11/28/2023 , Expires: 02/27/2024 Start: 11-28-2023 End: 02-27-2024 Ferritin [Mass/volume] in Serum or Plasma [facility] Comment on above: Expected: 11/28/2023 , Expires: 02/27/2024 Start: 11-28-2023 End: 02-27-2024 Folate [Mass/volume] in Serum or Plasma [facility] Comment on above: Expected: 11/28/2023 , Expires: 02/27/2024 Start: 11-28-2023 End: 02-27-2024 Iron and Iron binding capacity panel - Serum or Plasma [facility] Comment on above: Expected: 11/28/2023 , Expires: 02/27/2024 Start: 11-28-2023 End: 02-27-2024 Magnesium [Mass/volume] in Serum or Plasma MAGNESIUM Lab Routine Hypomagnesemia Expected: 11/28/2023, Expires: 02/27/2024 [facility] Comment on above: Expected: 11/28/2023 , Expires: 02/27/2024 Start: 11-28-2023 End: 02-27-2024 Urinalysis complete panel - Urine [facility] Work Phone: Comment on above: Expected: 11/28/2023 , Expires: 02/27/2024 Start: 11-28-2023 End: 11-28-2023 Patient encounter procedure 11/28/2023 10:20 AM EDT Office Visit [facility] [address] [place] [address] [phone] Destini Lay PA-C [address] [place], [place] [id number] [facility] follow up - syncope [facility] Comment on above: [facility] follow up - s yncope Start: 11-21-2023 End: 11-21-2023 ambulatory [facility] Comment on above: Left TFESI w fluoro at S1 and L5-S1; 81mg asp AUTH GOOD (TB) MEDIC ARE A&B Left TFESI w fluoro at S1 and L5-S1; 81mg asp Start: 11-09-2023 Covid-19 Vaccine ( season) Covid-19 Vaccine ( season) [facility] Start: 11-09-2023 Influenza vaccination Influenza Vacc ine (#1) [facility] Start: 10-31-2023 End: 10-31-2023 Patient encounter procedure 10/31/2023 1:05 PM EDT Appointment Radiology [address] [place] [address] Osteopenia, senile [M85.80]; 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] Radiology Comment on above: Osteopenia, senile [ M85.80]; 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] Start: 10-18-2023 End: 01-17-2024 25-hydroxyvitamin D3 [Mass/volume] in Serum or Plasma VITAMIN D 25 HYDROXY Lab Routine Vitamin D deficiency Expected: 10/18/2023, Expires: 01/17/2024 [facility] Comment on above: Expected: 10/18/2023 , Expires: 01/17/2024 Start: 10-18-2023 End: 01-17-2024 ALK PHOS ISOENZYM BL ALK PHOS ISOENZYM BL Lab Routine Elevated alkaline phosphatase level Expected: 10/18/2023, Expires: 01/17/2024 [facility] Comment on above: Expected: 10/18/2023 , Expires: 01/17/2024 Start: 10-18-2023 End: 01-17-2024 Basic metabolic 2000 panel - Serum or Plasma BASIC METABOLIC PANEL Lab Routine Hyponatremia Expected: 10/18/2023, Expires: 01/17/2024 [facility] Comment on above: Expected: 10/18/2023 , Expires: 01/17/2024 Start: 10-18-2023 End: 01-17-2024 CBC W Auto Differential panel - Blood COMPLETE BLOOD COUNT AND DIFFERENTIAL Lab Routine Anemia, unspecified type Expected: 10/18/2023, Expires: 01/17/2024 [facility] Comment on above: Expected: 10/18/2023 , Expires: 01/17/2024 Start: 10-18-2023 End: 01-17-2024 Cobalamin (Vitamin B12) [Mass/volume] in Serum or Plasma VITAMIN B12 Lab Routine Anemia, unspecified type Expected: 10/18/2023, Expires: 01/17/2024 [facility] Comment on above: Expected: 10/18/2023 , Expires: 01/17/2024 Start: 10-18-2023 End: 01-17-2024 Ferritin [Mass/volume] in Serum or Plasma FERRITIN Lab Routine Anemia, unspecified type Expected: 10/18/2023, Expires: 01/17/2024 [facility] Comment on above: Expected: 10/18/2023 , Expires: 01/17/2024 Start: 10-18-2023 End: 01-17-2024 Folate [Mass/volume] in Serum or Plasma FOLATE, SERUM Lab Routine Anemia, unspecified type Expected: 10/18/2023, Expires: 01/17/2024 [facility] Comment on above: Expected: 10/18/2023 , Expires: 01/17/2024 Start: 10-18-2023 End: 01-17-2024 HEP ACUTE PANEL/RNA HEP ACUTE PANEL/RNA Lab Routine Elevated LFTs Expected: 10/18/2023, Expires: 01/17/2024 [facility] Comment on above: Expected: 10/18/2023 , Expires: 01/17/2024 Start: 10-18-2023 End: 01-17-2024 Hepatic function 2000 panel - Serum or Plasma HEPATIC FUNCTION PNL Lab Routine Elevated LFTs Expected: 10/18/2023, Expires: 01/17/2024 [facility] Work Phone: Comment on above: Expected: 10/18/2023 , Expires: 01/17/2024 Start: 10-18-2023 End: 01-17-2024 Iron and Iron binding capacity panel - Serum or Plasma IRON AND TIBC Lab Routine Anemia, unspecified type Expected: 10/18/2023, Expires: 01/17/2024 [facility] Comment on above: Expected: 10/18/2023 , Expires: 01/17/2024 Start: 10-16-2023 End: 10-16-2023 Patient encounter procedure 10/16/2023 8:15 AM EDT Office Visit [facility] [address] [place] [address] Jackson Sumner MD [address] [address] Established [id number], back and knee pain, now spreading to feet [facility] Comment on above: Established patient- Follow-up, back and knee pain, now spreading to feet Start: 09-29-2023 End: 09-29-2023 Patient encounter procedure 09/29/2023 4:00 PM EDT Appointment Radiology [address] [place], [place] [address] Multiple thyroid nodules [E04.2] Radiology Comment on above: Multiple thyroid nod ules [E04.2] Start: 09-17-2023 End: 09-17-2023 Patient encounter procedure 09/17/2023 1:00 PM EDT Office Visit [facility] [place] [address] [facility] [place] [address] Juan Spann MD [address] [facility] [place] [place] [address] Medicare Wellness [facility] Comment on above: Medicare Wellness Start: 09-17-2023 End: 09-17-2023 Follow-up encounter 09/17/2023 11:30 AM EDT [facility] [place] [address] [facility] [address] [place] [address] Aj Graham APRN.[employer] [address] [place] [address] Follow up from Genicular [facility] [place] Comment on above: Follow up from Genic ular RFA Start: 08-25-2023 End: 08-25-2023 ambulatory 08/25/2023 2:00 PM EDT OT/PT/Speech Visit [facility] [address] [place], [place] [id number] London Frye, PT [address] [place], [place] [id number] Lumbar radiculopathy [M54.16] [facility] Comment on above: Lumbar radiculopathy [M54.16] Start: 08-11-2023 End: 08-11-2023 ambulatory 08/11/2023 2:00 PM EDT OT/PT/Speech Visit [facility] [address] [place], [place] [id number] London Frye, PT [address] [place], [place] [id number] Lumbar radiculopathy [M54.16] [facility] Comment on above: Lumbar radiculopathy [M54.16] Start: 08-06-2023 End: 08-06-2023 ambulatory 08/06/2023 2:30 PM EDT Procedure [facility] [place] [address] [address] [place], [place] [address] Jackson Sumner MD [address] [place], [place] [address] 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 [facility] [place] [address] Lumbar radiculopathy [M54.16] [facility] Comment on above: Lumbar radiculopathy [M54.16] Start: 07-23-2023 SHINGRIX VACCINE (3 of 3) SHINGRIX VACCINE (3 of 3) [facility] Comment on above: Postponed from 11/09 (Insurance Coverage) Start: 07-23-2023 Urine microalbumin profile [facility] Comment on above: Postponed from 09/16 (Insurance Coverage) Start: 07-23-2023 End: 07-23-2023 Follow-up encounter 07/23/2023 7:45 AM EDT [facility] [place] [address] [place], [place] [id number] Aj Graham APRN.[employer] [address] [place], [place] [id number] GNB follow up [facility] [place] Comment on above: GNB follow up Start: 07-17-2023 End: 07-17-2023 ambulatory [facility] [place] Comment on above: Right genicular nerv e block AUTH GOOD (TB) Right genicular nerve block Start: 07-16-2023 End: 07-16-2023 ambulatory 07/16/2023 11:15 AM EDT OT/PT/Speech Visit [facility] [address] [place] [address] Saravanan Peñaloza PT Lumbar radiculopathy [M54.16] [facility] Comment on above: Lumbar radiculopathy [M54.16] Start: 07-02-2023 End: 10-01-2023 Basic metabolic 2000 panel - Serum or Plasma BASIC METABOLIC PANEL Lab Routine Elevated blood uric acid level Expected: 07/02/2023, Expires: 10/01/2023 [facility] Work Phone: Comment on above: Expected: 07/02/2023 , Expires: 10/01/2023 Start: 07-02-2023 End: 10-01-2023 Thyrotropin [Units/volume] in Serum or Plasma THYROID STIMULATING HORMONE Lab Routine Multiple thyroid nodules Expected: 07/02/2023, Expires: 10/01/2023 [facility] Work Phone: Comment on above: Expected: 07/02/2023 , Expires: 10/01/2023 Start: 07-02-2023 End: 10-01-2023 Urate [Mass/volume] in Serum or Plasma URIC ACID Lab Routine Elevated blood uric acid level Expected: 07/02/2023, Expires: 10/01/2023 [facility] Work Phone: Comment on above: Expected: 07/02/2023 , Expires: 10/01/2023 Start: 04-07-2023 Covid-19 Vaccine (6 - Pfizer series) Covid-19 Vaccine (6 - Pfizer series) [facility] Start: 04-07-2023 Covid-19 Vaccine () Covid-19 Vaccine () [facility] Start: 12-03-2022 ANNUAL PCP TEAM GAMER BUD DISEASE VISIT ANNUAL PCP TEAM CHRONIC DISEASE VISIT [facility] Start: 12-03-2022 BP CONTROLLED (<130/80) BP CONTROLLE D (<130/80) [facility] Start: 11-08-2022 Influenza vaccination INFLUENZA (#1) [facility] Start: 09-05-2022 ANNUAL PCP TEAM GAMER BUD DISEASE VISIT ANNUAL PCP TEAM CHRONIC DISEASE VISIT [facility] Start: 09-05-2022 BP CONTROLLED (<130/80) BP CONTROLLE D (<130/80) [facility] Start: 05-20-2022 End: 07-20-2022 Thyroglobulin Ab [Units/volume] in Serum or Plasma THYROGLOBULIN AB Lab Routine Abnormal thyroid blood test Multiple thyroid nodules Expected: 05/20/2022, Expires: 07/20/2022 [facility] Work Phone: Comment on above: Expected: 05/20/2022 , Expires: 07/20/2022 Start: 05-20-2022 End: 07-20-2022 THYROID PEROXIDASE ANTIBODY BLOOD THYROID PEROXIDASE ANTIBODY BLOOD Lab Routine Abnormal thyroid blood test Multiple thyroid nodules Expected: 05/20/2022, Expires: 07/20/2022 [facility] Work Phone: Comment on above: Expected: 05/20/2022 , Expires: 07/20/2022 Start: 05-20-2022 End: 07-20-2022 Thyrotropin [Units/volume] in Serum or Plasma TSH BLD Lab Routine Abnormal thyroid blood test Multiple thyroid nodules Expected: 05/20/2022, Expires: 07/20/2022 [facility] Work Phone: Comment on above: Expected: 05/20/2022 , Expires: 07/20/2022 Start: 05-20-2022 End: 07-20-2022 Thyroxine (T4) free [Mass/volume] in Serum or Plasma T4 FREE/FREE THYROX Lab Routine Abnormal thyroid blood test Multiple thyroid nodules Expected: 05/20/2022, Expires: 07/20/2022 [facility] Work Phone: Comment on above: Expected: 05/20/2022 , Expires: 07/20/2022 Start: 05-14-2022 BP CONTROLLED (<130/80) BP CONTROLLE D (<130/80) [facility] Start: 05-07-2022 COVID-19 VACCINE (6 - Pfizer series) COVID-19 VACCINE (6 - Pfizer series) [facility] Start: 04-23-2022 ANNUAL PCP TEAM GAMER BUD DISEASE VISIT ANNUAL PCP TEAM CHRONIC DISEASE VISIT [facility] Start: 04-19-2022 End: 06-19-2022 25-hydroxyvitamin D3 [Mass/volume] in Serum or Plasma [facility] Work Phone: Comment on above: Expected: 04/19/2022 , Expires: 06/19/2022 Start: 04-19-2022 End: 06-19-2022 Comprehensive metabolic 2000 panel - Serum or Plasma [facility] Work Phone: Comment on above: Expected: 04/19/2022 , Expires: 06/19/2022 Start: 04-19-2022 End: 06-19-2022 LIPID PANEL, NONFASTING [facility] Work Phone: Comment on above: Expected: 04/19/2022 , Expires: 06/19/2022 Start: 04-19-2022 End: 06-19-2022 Thyrotropin [Units/volume] in Serum or Plasma [facility] Work Phone: Comment on above: Expected: 04/19/2022 , Expires: 06/19/2022 Start: 04-19-2022 End: 06-19-2022 Urinalysis complete panel - Urine [facility] Work Phone: Comment on above: Expected: 04/19/2022 , Expires: 06/19/2022 Start: 03-10-2022 DEPRESSION ASSESSMENT DEPRESSION ASS ESSMENT [facility] Start: 02-27-2022 End: 02-27-2022 Patient encounter procedure Appointment [facility] Work Phone: Start: 12-03-2021 End: 02-02-2022 Basic metabolic 2000 panel - Serum or Plasma [facility] Work Phone: Comment on above: Expected: 12/03/2021 , Expires: 02/02/2022 Start: 11-08-2021 Influenza vaccination INFLUENZA (#1) [facility] Start: 10-03-2021 COVID-19 VACCINE (5 - Booster for Pfizer series) COVID-19 VACCINE (5 - Booster for Pfizer series) [facility] Start: 05-31-2021 End: 05-31-2021 Patient encounter procedure Appointment [facility] Work Phone: Start: 05-31-2021 End: 05-31-2021 Radex spine lumbosacral 2/3 views XR LUMBAR 2-3 VWS AP/LAT [facility] Work Phone: Start: 03-12-2021 COVID-19 VACCINE (4 - Booster for Pfizer series) COVID-19 VACCINE (4 - Booster for Pfizer series) [facility] Start: 03-10-2021 DEPRESSION ASSESSMENT DEPRESSION ASS ESSMENT [facility] Start: 11-09-2020 SHINGRIX VACCINE (2 of 2) SHINGRIX VACCINE (2 of 2) [facility] Start: 11-09-2020 SHINGRIX VACCINE (3 of 3) SHINGRIX VACCINE (3 of 3) [facility] Start: 09-16-2009 DTaP/Tdap/Td Vaccine s (2 - Tdap) DTaP/Tdap/Td Vaccines (2 - Tdap) [facility] Start: 09-16-2009 Urine microalbumin profile [facility] Start: 2000 RSV Vaccine (1 - 1-d ose 60+ series) RSV Vaccine (1 - 1-dose 60+ series) [facility] Start: 1958 Anxiety Screening Anxiety Screening [facility] Start: 1958 Depression Screening Depression Scre ening [facility] Start: 1940 Lipid panel Lipid Panel [facility] Start: 1940 Medicare Annual Well ness Visit Medicare Annual Wellness Visit (AWV) [facility] Arthrocentesis aspir&/inj major jt/bursa w/o us DRAIN/INJECT LARGE JOINT/BURSA Procedures Routine Primary osteoarthritis of both knees Ordered: 05/26/2023 [facility] Work Phone: Comment on above: Ordered: 05/26/2023 Bacteria identified in Urine by Culture URINE CULTURE Microbiology Routine Urinary frequency 07/15/2022 4:13 PM EDT [facility] Work Phone: Bacteria identified in Urine by Culture URINE CULTURE Microbiology Routine Dysuria Urine frequency 07/22/2022 2:55 PM EDT [facility] Work Phone: End: 10-16-2024 BD DXA TRABECULAR BONE SCORE (TBS) BD DXA TRABECULAR BONE SCORE (TBS) Radiology Routine Osteopenia, senile Primary ovarian failure 1 Occurrences starting 09/17/2023 until 10/16/2024 [facility] Comment on above: 1 Occurrences starti ng 09/17/2023 until 10/16/2024 End: 06-24-2024 Blood type and Indirect antibody screen panel - Blood Type And Screen Lab Timed Postlaminectomy syndrome of lumbar region As needed (Lab) until discontinued starting 06/24/2024 [facility] Service Area Work Phone: Comment on above: As needed (Lab) unti l discontinued starting 06/24/2024 Dstrj neurolytic age nt other peripheral nerve NRV DESTR RFA, CHEM OTHER Procedures Routine Primary osteoarthritis of both knees Ordered: 08/06/2023 [facility] Work Phone: Comment on above: Ordered: 08/06/2023 End: 10-16-2024 DXA Skeletal system.axial Views for bone density DXA-AXIAL SKELETON Radiology Routine Osteopenia, senile Primary ovarian failure 1 Occurrences starting 09/17/2023 until 10/16/2024 [facility] Comment on above: 1 Occurrences starti ng 09/17/2023 until 10/16/2024 DXA Skeletal system.axial Views for bone density DXA-AXIAL SKELETON Radiology Routine Osteopenia, senile Primary ovarian failure 10/31/2023 1:37 PM EDT [facility] Work Phone: Injection aa&/strd o ther peripheral nerve/branch INJECT ANESTH AGENT Procedures Routine Primary osteoarthritis of both knees Ordered: 07/17/2023 [facility] Work Phone: Comment on above: Ordered: 07/17/2023 End: 01-09-2025 MR Thoracic spine WO contrast MRI THORACIC SPINE WO IVCON Radiology Routine Pain in thoracic spine 1 Occurrences starting 12/11/2023 until 01/09/2025 [facility] Work Phone: Comment on above: 1 Occurrences starti ng 12/11/2023 until 01/09/2025 End: 10-05-2022 Mri brain brain stem w/o contrast material MRI BRAIN WO IVCON Radiology Routine Injury of head, initial encounter Vertigo 1 Occurrences starting 09/05/2021 until 10/05/2022 [facility] Work Phone: Comment on above: 1 Occurrences starti ng 09/05/2021 until 10/05/2022 Njx anes&/strd w/img tfrml edrl lmbr/sac 1 lvl INJ TRANSFORAMINAL EPID ANES/STER LS SINGL Procedures Routine Spinal stenosis, lumbar region, without neurogenic claudication Lumbar radiculopathy Ordered: 04/30/2023 [facility] Work Phone: Comment on above: Ordered: 04/30/2023 Njx anes&/strd w/img tfrml edrl lmbr/sac 1 lvl INJ TRANSFORAMINAL EPID ANES/STER LS SINGL Procedures Routine Lumbar radiculopathy Spinal stenosis, lumbar region, without neurogenic claudication Ordered: 11/21/2023 [facility] Work Phone: Comment on above: Ordered: 11/21/2023 Njx anes&/strd w/img tfrml edrl lmbr/sac 1 lvl INJ TRANSFORAMINAL EPID ANES/STER LS SINGL Procedures Routine Lumbar radiculopathy Spinal stenosis, lumbar region, without neurogenic claudication Ordered: 03/23/2024 [facility] Work Phone: Comment on above: Ordered: 03/23/2024 Njx anes&/strd w/img tfrml edrl lmbr/sac ea lv INJ TRANSFRAM EPID ANES/STER LS MULTI Procedures Routine Spinal stenosis, lumbar region, without neurogenic claudication Lumbar radiculopathy Ordered: 04/30/2023 [facility] Work Phone: Comment on above: Ordered: 04/30/2023 Njx anes&/strd w/img tfrml edrl lmbr/sac ea lv INJ TRANSFRAM EPID ANES/STER LS MULTI Procedures Routine Lumbar radiculopathy Spinal stenosis, lumbar region, without neurogenic claudication Ordered: 11/21/2023 [facility] Comment on above: Ordered: 11/21/2023 Njx dx/ther sbst intrlmnr lmbr/sac w/img gdn EPI LUMBAR OR SACRAL W/IMAGING Procedures Routine Lumbar radiculopathy Spinal stenosis, lumbar region, without neurogenic claudication Ordered: 01/30/2024 [facility] Work Phone: Comment on above: Ordered: 01/30/2024 Prq impltj nstim electrode array epidural SPINAL CORD STIM PERCT SCS ELCT Procedures Routine Lumbar radiculopathy Spinal stenosis, lumbar region, without neurogenic claudication Ordered: 04/27/2024 [facility] Work Phone: Comment on above: Ordered: 04/27/2024 End: 09-17-2025 US Carotid arteries - bilateral US CAROTID ARTERIES [facility] Vascular Lab Routine Bruit 1 Occurrences starting 09/17/2024 until 09/17/2025 [facility] Comment on above: 1 Occurrences starti ng 09/17/2024 until 09/17/2025 End: 06-17-2024 US Heart Transthoracic [facility] Service Area Work Phone: Comment on above: Once for 1 Occurrenc es starting 06/17/2024 until 06/17/2024 End: 08-21-2023 Us soft tissue head & neck real time imge docm US THYROID/PARATHYROID Radiology Routine Multiple thyroid nodules 1 Occurrences starting 07/22/2022 until 08/21/2023 [facility] Work Phone: Comment on above: 1 Occurrences starti ng 07/22/2022 until 08/21/2023 End: 10-16-2024 US Thyroid gland US THYROID/PARATHYROID Radiology Routine Multiple thyroid nodules 1 Occurrences starting 09/17/2023 until 10/16/2024 [facility] Comment on above: 1 Occurrences starti ng 09/17/2023 until 10/16/2024 US Thyroid gland US THYROID/PARA THYROID Radiology Routine Multiple thyroid nodules 09/29/2023 4:20 PM EDT [facility] Work Phone: End: 10-17-2025 US Thyroid gland US THYROID/PARATHYROID Radiology Routine Multiple thyroid nodules 1 Occurrences starting 09/17/2024 until 10/17/2025 [facility] Comment on above: 1 Occurrences starti ng 09/17/2024 until 10/17/2025 US Thyroid gland US THYROID/PARA THYROID Radiology Routine Multiple thyroid nodules 10/08/2024 2:24 PM EDT [facility] Work Phone: End: 05-27-2025 XR Lumbar spine AP and Lateral XR LUMBAR LIMITED 2V AP/LAT Radiology Routine Lumbar radiculopathy Spinal stenosis, lumbar region, without neurogenic claudication 1 Occurrences starting 04/27/2024 until 05/27/2025 [facility] Comment on above: 1 Occurrences starti ng 04/27/2024 until 05/27/2025 XR Lumbar spine AP a nd Lateral XR LUMBAR LIMITED 2V AP/LAT Radiology Routine Lumbar radiculopathy Spinal stenosis, lumbar region, without neurogenic claudication 05/03/2024 8:32 AM EST [facility] Work Phone: End: 05-27-2025 XR Thoracic spine AP and Lateral XR THORACIC LIMITED 2V AP/LAT Radiology Routine Lumbar radiculopathy Spinal stenosis, lumbar region, without neurogenic claudication 1 Occurrences starting 04/27/2024 until 05/27/2025 [facility] Comment on above: 1 Occurrences starti ng 04/27/2024 until 05/27/2025 XR Thoracic spine AP and Lateral XR THORACIC LIMITED 2V AP/LAT Radiology Routine Lumbar radiculopathy Spinal stenosis, lumbar region, without neurogenic claudication 05/03/2024 8:33 AM EST [facility] Immunizations Immunization Date Immunization Notes Care Provider Fa cili 12-18-2024 influenza, high dose seasonal, preservative-free Dr. Juan Spann MD Work Phone: [facility] 09-17-2024 COVID-19 vaccine, ag e 12+ yr (PFIZER-BIONTECH COMIRNATY) Juan Spann MD Work Phone: [facility] 12-17-2023 influenza, high dose seasonal, preservative-free Destini Lay PA-C Work Phone: [facility] 12-17-2023 influenza virus vaccine, unspecified formulation Juan Spann MD Work Phone: [facility] 11-28-2023 COVID-19 vaccine, ag e 12+ yr (PFIZER-BIONTECH) Destini Lay PA-C Work Phone: [facility] 09-20-2023 respiratory syncytia l virus (RSV) vaccine, adjuvanted (AREXVY) Destini Lay PA-C Work Phone: [facility] 09-17-2023 pneumococcal conjuga te (PCV20) vaccine, 20 valent (PREVNAR 20) Juan Spann MD Work Phone: [facility] 09-17-2023 pneumococcal Conjuga te, unspecified formulation Jaun Spann MD Work Phone: [facility] 12-06-2022 COVID-19 vaccine, ag e 12+ yr, season (PFIZER-BIONTECH) Immunization [place] Work Phone: [facility] Work Phone: 12-06-2022 influenza (HD-IIV4) vaccine, age 65+ yr, high dose, quadrivalent, PF (FLUZONE HIGH-DOSE) Immunization [place] Work Phone: [facility] Work Phone: 12-06-2022 influenza virus vaccine, unspecified formulation Juan Spann MD Work Phone: [facility] 01-04-2022 COVID-19 booster vaccine, age 12+ yr, bivalent (PFIZER-BIONTECH) Juan Spann MD Work Phone: [facility] Work Phone: 01-04-2022 influenza, high-dose , quadrivalent vaccine (FLUZONE HIGH DOSE QUADRIVALENT) Juan Spann MD Work Phone: [facility] Work Phone: 08-08-2021 COVID-19 original vaccine, age 12+ yr, monovalent (PFIZER-BIONTECH - PURPLE TOP) Destini Lay PA-C Work Phone: [facility] 08-08-2021 COVID-19 vaccine, ag e 12+ yr (PFIZER-BIONTECH - MCKENNA TOP) Destini Lay PA-C Work Phone: [facility] 12-16-2020 influenza, high-dose , quadrivalent vaccine (FLUZONE HIGH DOSE QUADRIVALENT) Juan Spann MD Work Phone: [facility] 12-15-2020 zoster vaccine recombinant Destini Lay PA-C Work Phone: [facility] 11-10-2020 COVID-19 vaccine, ag e 12+ yr (PFIZER-BIONTECH - PURPLE TOP) Juan Spann MD Work Phone: [facility] 09-14-2020 zoster vaccine recombinant Juan Spann MD Work Phone: [facility] 05-11-2020 COVID-19 vaccine, ag e 12+ yr (PFIZER-BIONTECH - PURPLE TOP) Juan Spann MD Work Phone: [facility] Work Phone: 04-20-2020 COVID-19 vaccine, ag e 12+ yr (PFIZER-BIONTECH - PURPLE TOP) Juan Spann MD Work Phone: [facility] 12-11-2019 influenza, high-dose , quadrivalent vaccine (FLUZONE HIGH DOSE QUADRIVALENT) Juan Spann MD Work Phone: [facility] 01-02-2019 influenza, high dose seasonal, preservative-free Juan Spann MD Work Phone: [facility] 12-06-2017 influenza, high dose seasonal, preservative-free Juan Spann MD Work Phone: [facility] 03-12-2017 pneumococcal polysaccharide vaccine, 23 valprosper Spann MD Work Phone: [facility] 01-11-2017 influenza, high dose seasonal, preservative-free Juan Spann MD Work Phone: [facility] Work Phone: 02-21-2016 pneumococcal conjuga te vaccine, 13 valent Juan Spann MD Work Phone: [facility] Work Phone: 12-22-2015 influenza, high dose seasonal, preservative-free Juan Spann MD Work Phone: [facility] Work Phone: 01-21-2015 influenza, high dose seasonal, preservative-free Juan Spann MD Work Phone: [facility] Work Phone: 01-05-2014 influenza, injectabl e, quadrivalent, preservative free Dr. Juan Spann MD Work Phone: [facility] 01-05-2014 influenza, seasonal, injectable Juan Spann MD Work Phone: [facility] 12-12-2012 influenza virus vaccine, unspecified formulation Juan Spann MD Work Phone: [facility] Work Phone: 01-18-2012 influenza virus vaccine, unspecified formulation Juan Spann MD Work Phone: [facility] Work Phone: 12-29-2010 influenza virus vaccine, unspecified formulation Juan Spann MD Work Phone: [facility] Work Phone: 12-19-2009 influenza virus vaccine, unspecified formulation Juan Spann MD Work Phone: [facility] Work Phone: 12-12-2008 influenza virus vaccine, unspecified formulation Juan Spann MD Work Phone: [facility] Work Phone: 02-16-2008 zoster vaccine, live Juan Spann MD Work Phone: [facility] 01-13-2008 influenza virus vaccine, unspecified formulation Juan Spann MD Work Phone: [facility] Work Phone: 01-05-2007 influenza virus vaccine, unspecified formulation Juan Spann MD Work Phone: [facility] Work Phone: 01-05-2007 pneumococcal polysaccharide vaccine, 23 valent Juan Spann MD Work Phone: [facility] Work Phone: 01-13-2006 influenza virus vaccine, unspecified formulation Juan Spann MD Work Phone: [facility] Work Phone: 01-17-2005 influenza virus vaccine, unspecified formulation Juan Spann MD Work Phone: [facility] Work Phone: 09-17-1999 diphtheria and tetan us toxoids, adsorbed for pediatric use Juan Spann MD Work Phone: [facility] Work Phone: Payers Date Payer Category Payer Self-pay 2009 Miscellaneous or Other [facility] [id number] 2009 Private Health Insurance [facility] [id number] 2009 Unknown [employer] [place] [employer] SUPPLEMENT [id number] 2009-Present [phone] [address] [place] [address] Indemnity [id number] 2009 Unknown [employer] [employer] SUPPLE[place] [id number] 2009-Present [phone] [address] [place] [address] Indemnity [id number] 2009 Medicare [id number] 2009 Unknown [id number] 2005 Medicare [id number] 2005 Medicare [id number] 2005 Medicare [id number] 1940 Unknown [id number]. 2.1244 1940 Unknown [id number] [id number]. 2.1244 1940 Unknown [id number] 2.16.840.1.311408.3.579. 2.1245 1940 Unknown [id number] 2.16.840.1.921936.3.579. 2.1245 1940 Unknown [id number] 2.16.840.1.541698.3.579. 2.1245 Unknown [id number] 2.16.840.1.107834.3.579. 2.462 Unknown [id number] 2.16.840.1.218316.3.579. 2.462 Unknown [id number] 2.16.840.1.068259.3.579. 2.462 Unknown [id number] 2.16.840.1.327712.3.579. 2.462 Unknown [id number] 2.16.840.1.034781.3.579. 2.462 Unknown [id number]. 2.462 Social History Date Type Detail Facility Start: 05-31-2021 End: 05-31-2021 Assertion Unknown if ever smoked [facility] Work Phone: Start: 07-29-2011 End: 12-21-2024 Tobacco smoking status NHIS Never smoked tobacco [facility] Start: 05-14-2021 End: 10-11-2024 Alcohol intake Current drinker of alcohol (finding) [facility] Start: 05-14-2021 End: 07-22-2022 Alcohol intake [facility] Start: 06-06-2020 End: 04-17-2022 History SDOH Alcohol Frequency 4 [facility] Start: 06-06-2020 End: 04-17-2022 History SDOH Alcohol Std Drinks 2 [facility] Start: 06-06-2020 End: 04-17-2022 History SDOH Alcohol Binge 3 [facility] Start: 12-23-2011 History SDOH Alcohol Comment 3-4/week [facility] Start: 06-06-2020 End: 04-17-2022 History SDOH Social Connections Phone 5 [facility] Start: 06-06-2020 End: 04-17-2022 History SDOH Social Connections Membership 1 [facility] Start: 06-06-2020 Education 12 [facility] Start: 1940 Sex Assigned At Not on file [facility] Start: 08-26-2021 End: 07-07-2024 Exposure to SARS-CoV-2 (event) Not sure [facility] Start: 07-29-2011 End: 12-03-2021 Tobacco use and exposure Smokeless tobacco non-user [facility] Start: 04-17-2022 End: 07-22-2022 Social connection and isolation panel [facility] Do you belong to any clubs or organizations such as anglican groups, unions, fraternal or athletic groups, or school groups? No [facility] Are you now , , , , never or living with a partner? [facility] How often to you hav e a drink containing alcohol? 4 or more times a week [facility] How many standard dr inks containing alcohol do you have on a typical day? 3 or 4 [facility] How often do you hav e 6 or more drinks on 1 occasion? Weekly [facility] How hard is it for y ou to pay for the very basics like food, housing, medical care, and heating Not very hard [facility] Start: 02-09-2012 Adult Depression Screening Assessment 0 [facility] Work Phone: Do you feel stress - tense, restless, nervous, or anxious, or unable to sleep at night because your mind is troubled all the time - these days [OSQ] To some extent [facility] (I/We) worried wheth er (my/our) food would run out before (I/we) got money to buy more. Never true [facility] Do you feel stress - tense, restless, nervous, or anxious, or unable to sleep at night because your mind is troubled all the time - these days [OSQ] Rather much [facility] How often do you hav e 6 or more drinks on 1 occasion? Monthly [facility] Start: 12-05-2019 Alcohol Alcohol [facility] Start: 1940 Sex Assigned At Female [facility] Medical Equipment Procedure Code Equipment Code Equipment Original Text Equipment Identifier Dates Graft Bn Infs Rhbmp-2 2.8ml - [id number] Start: 11-03-2012 Comment on above: Description: INFUSE BONE GRAFT Bio Matrx Mstrgrft 10cc Kit - [id number] Start: 11-03-2012 Comment on above: Description: MASTERG RAFT MATRIX Kain Spnl 40mm 5.5mm Cd Hzn Leg - [id number] Start: 11-03-2012 Comment on above: Description: MEDTRON IC 4.0 CM KAIN Screw Bn 6.5mm 45mm Cd Hzn Leg - [id number] Start: 11-03-2012 Comment on above: Description: MEDTRON IC MULTI AXIAL SCREW, TITANIUM Screw St Ti Pedc l Brkof Cd Hzn - [id number] Start: 11-03-2012 Comment on above: Description: MEDTRON IC SET SCREWS Screw Quickfix 2.5mm 1.5mm Micro Full Thread Hexagon Titanium 16mm Bone - [id number] Start: 05-08-2016 Kit, Lead Spine Stim Sure-Scan Vectris Compact - [id number] Start: 06-24-2024 Comment on above: Description: BUNDLED greene per Bill Only LL Kit, Lead Spine Stim Sure-Scan Vectris Compact - [id number] Start: 06-24-2024 Comment on above: Description: Bundled per Bill Only LL Medtronic Inceptiv Generator [id number] Start: 06-24-2024 Goals Date Patient Goal Desired Activity /State Personal health goal Functional Status Date Assessment Result Facility 12-22-2024 Functional status [facility]ulates [facility] Work Phone: 06-24-2024 [facility] suicide severity rating scale screener - recent [C-SSRS] [facility] Work Phone: 10-13-2014 Are you deaf, or do you have serious difficulty hearing No 10/13/2014 1:22 PM EDT Sherie Johns LPN No [facility] 10-13-2014 Are you blind, or do you have serious difficulty seeing, even when wearing glasses No 10/13/2014 1:22 PM EDT Sherie Johns LPN No [facility] 10-13-2014 Do you have serious difficulty walking or climbing stairs No 10/13/2014 1:22 PM EDT Sherie Johns LPN No [facility] 10-13-2014 Do you have difficul ty dressing or bathing No 10/13/2014 1:22 PM EDT Sherie Johns LPN No [facility] 10-13-2014 Because of a physica l, mental, or emotional condition, do you have difficulty doing errands alone such as visiting a physician's office or shopping No 10/13/2014 1:22 PM EDT Sherie Johns LPN No [facility] Mental Status Date Assessment Result Facility 12-22-2024 Cognitive function Voice/Name [facility] Work Phone: 10-13-2014 Because of a physica l, mental, or emotional condition, do you have serious difficulty concentrating, remembering, or making decisions No 10/13/2014 1:22 PM EDT Sherie Johns LPN [facility] Clinical Notes 04-16-2021 to 01-18-2025 Note Date & Type Note Facility 01-18-2025 Note HNO ID: [id number] Author: TOVA DIAZ MA Service: ? Author Type: Computer Equipment Installer Type: Progress Notes Filed: 01/18/2025 14:30 Note Text: Scan on 01/18/2025 12:34 PM by Kirk Koch PA-C: Consultation - Cardiology [facility] 01-17-2025 Note HNO ID: [id number] Author: TOVA DIAZ MA Service: ? Author Type: Computer Equipment Installer Type: Progress Notes Filed: 01/17/2025 14:27 Note Text: Scan on 01/17/2025 2:03 PM by Kirk Koch PA-C: Inj/asp jose jt shoulder/hip/knee [facility] 01-03-2025 Note HNO ID: [id number] Author: LAUREN CHAMPAGNE PT Service: ? Author Type: Physical Therapist Type: Progress Notes Filed: 01/03/2025 13:55 Note Text: Pt. Checked in but has not seen ortho visit scheduled yet. Opened in error. Lauren Champagne PT, DPT [facility] 12-29-2024 Note HNO ID: [id number] Author: IKE DOTY Tech Service: ? Author Type: Rate Setter Type: Progress Notes Filed: 12/29/2024 12:43 Note Text: Radiology Service Progress Note PATIENT NAME: Spenser Putnam DATE OF SERVICE: December 29, 2024 TIME: 12:42 PM PATIENT IDENTITY VERIFICATION COMPLETED USING TWO (2) IDENTIFIERS: Name and Date of confirmed by patient verbally. FALL SCREENING: Has the patient had 2 falls in the last year or 1 fall with injury or currently using an Ambulatory Assistive Device (Walker, Cane, Wheelchair, Crutches, etc.)? Yes, Patient High Risk for Falls What interventions were put in place to prevent falls during this visit? Increased Observations by Caregivers PATIENT GENDER DATA: Assigned female at . status: : No status: NO. PATIENT RELEVANT IMPLANT DATA REVIEWED: Yes PATIENT PRESENTS WITH AN IMPLANTABLE OR ATTACHED OPERATIONS ANALYST: No RADIOLOGY DEPARTMENT: General X-ray: Exam(s) Completed: Upper Extremity X-Ray(s): Shoulder, AP / TRUE AP left PERIPHERAL IV DATA: Not applicable SIGNED BY: Sejal Guillaume December 29, 2024 12:42 PM [facility] 12-29-2024 Note HNO ID: [id number] Author: DESTINI LAY PA-C Service: ? Author Type: Physician Instrumentation Engineering Technician Type: Progress Notes Filed: 12/30/2024 07:43 Note Text: Chief Complaint Patient presents with: Hospital F/U HPI Spenser Putnam is a 84 year old female who presents here today for Hospital Discharge Follow up.. Spenser is an 84-year-old female presenting for follow-up after a recent syncopal episode, with additional complaints of left shoulder pain and right hip pain. Syncope: - Recent syncopal episode on 12/21/2024. - Hospitalized following the episode. Discharged 12/22. (See hospital summary note below) - Echo performed during hospitalization; no significant findings - Scheduled to see a international travel consultant next week for a loop recorder. - No recurrent syncopal episodes since hospitalization. - Occasional lightheadedness with rapid movements. - Previously on two antihypertensive medications; discontinued per hospital instructions given low blood pressure readings in the Hospital. 90-100s/40-50s. - Home blood pressure readings slightly elevated per daughter since stopping medication. Left Shoulder Pain: - Severe left shoulder pain, described as horrible - Pain began less than a year ago, initially noticed as a bone against bone sensation. - Believes pain is exacerbated by increased use with her walker due to right hip pain. - Pain is diffuse, affecting the entire shoulder. - Pain is worse in the evening, causing significant distress. - Unable to use the left arm effectively. - Previously prescribed Prednisone by Dr. Spann with no relief. - Tried Oxycodone, which caused nausea. - Currently taking Tylenol, which also causes stomach upset. - No previous X-rays of the shoulder. Right Hip Pain: - Severe right hip pain, described as really bad. - Pain has led to increased use of the left shoulder, which she believes has worsened the shoulder pain. - Hip has been X-rayed. - Scheduled to see Dr. Ayala next week for hip evaluation. Past medical history, appointments, medications, allergies reviewed. 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 Macias, Rt anterior shoulder, Gilberto III, pT1a, pNX, pM N/A Mixed hyperlipidemia 10/13/2014 Multiple thyroid nodules 09/15/2017 CT neck09/2017 7 mm nodule, US multiple small nodules repeat 09/2019 Non morbid obesity 03/29/2016 Osteopenia, senile 07/02/2005 SEE DEXA 07/15 Other chronic dermatitis due to solar radiation 03/27/2006 Other psoriasis 04/16/2013 Other seborrheic keratosis 06/23/2006 Personal history of other malignant neoplasm of skin 03/22/2013 Raynaud's phenomenon without gangrene 06/07/2020 suspected Restless leg syndrome Sensorineural hearing loss, asymmetrical 10/08/2017 Solar lentigo 03/22/2013 Spinal stenosis of lumbar region 06/17/2023 Spinal stenosis, lumbar region, without neurogenic claudication 07/25/2023 Spondylolisthesis at L5-S1 level 10/20/2012 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 09/15/2012 Vertigo 12/03/2021 MRI normal and patient declined further eval as of 12/03/21 Vitamin B12 deficiency 11/09/2023 Vitamin D deficiency 08/24/2016 Xerosis cutis 03/22/2013 Previous Surgical History PAST SURGICAL HISTORY Procedure Laterality Date ABDOMINAL SURGERY HX BACK SURGERY HX 01/23/2021 lateral lumbar interbody fusion L3-4 CHOLECYSTECTOMY age 52 +/- laparoscopic cholecystectomy COLONOSCOPY 04/29/2013 Dr. Patton, repeat 5 yrs COLONOSCOPY FLX DX W/COLLJ SPEC WHEN PFRMD 07/09/2006 COLONOSCOPY FLX DX W/COLLJ SPEC WHEN PFRMD 04/29/2013 internal hemorrhoids, q5y for FHx COLONOSCOPY, GI 05/02/2000 FHx, repeat q5y DILATION AND CURETTAGE DXAND/THER NONOBSTETRIC Dilation AND curettage EYE SURGERY HX PAST SURGICAL HISTORY OF 12/2011 squamous cell CA rt hand.left LE PAST SURGICAL HISTORY OF 04/2012 rt CTR-- endoscopic PAST SURGICAL HISTORY OF 2012 lumbar surgery- fusion PAST SURGICAL HISTORY OF 2014 excision melanoma right shoulder PAST SURGICAL HISTORY OF Right 2017 bunionectoy S SPINAL CORD STIM/IMPLA (more content not included)... [facility] 12-28-2024 Note HNO ID: [id number] Author: TOVA DIAZ MA Service: ? Author Type: Computer Equipment Installer Type: Progress Notes Filed: 12/28/2024 13:40 Note Text: Scan on 12/28/2024 1:06 PM by Provider, External, PA-C: [facility]-Syncope [facility] 12-22-2024 Discharge summary [facility] 12-22-2024 Discharge summary [facility] 12-22-2024 Note [facility] Medical Records Department [address] [place] [address] Discharge Summary 12/22/24 1503 MR#: [id number] Acct: [id number] Name: SPENSER PUTNAM Rep #: [id number] : 1940 84 From: Chelsea Carbone DO PCP: Dr. Juan Spann MD Status:DIS JANNETTE Location: [place] [address] Providers Date of Admission: 12/21/24 Date of Discharge: 12/22/24 Primary Care Physician: Dr. Juan Spann MD Reason For Visit: SYNCOPE Diagnosis Discharge Diagnosis (1) Syncope: Status: Acute Code(s): R55 - Syncope and collapse Plan 1. Syncope-etiology unclear #2 essential hypertension #3 hyperlipidemia Medications at Discharge Home Medications aspirin 81 mg chewable tablet 81 mg PO DAILY@0800 heart health 02/26/13 calcium 600 mg (as carbonate)-vitamin D3 20 mcg (800 unit) tablet 600 mg PO DINNER supplement 02/26/13 pravastatin 20 mg tablet 20 mg PO QHS cholesterol 12/05/19 spironolactone 50 mg tablet 50 mg PO DAILY 11/13/23 cholecalciferol (vitamin D3) 25 mcg (1,000 unit) capsule 25 mcg PO DAILY 12/21/24 magnesium 200 mg tablet 400 mg PO DAILY 12/21/24 ropinirole 4 mg tablet 4 mg PO QHS 12/21/24 lisinopril 20 mg tablet 20 mg PO QDAY 12/27/24 potassium chloride 20 mEq tablet,extended release (K-Tab) 20 meq PO BID 12/27/24 Hospital Course Operations None Procedures 2-D Echocardiogram Summary of Care Provided Minutes Spent on Discharge: 31 Hospital Course: This 84-year-old white female was seen in the emergency room at [facility] after suffering a syncopal episode at home while in her chair. She had a similar episode and was worked up previously without a conclusion reached as to why she had the event. Workup in the emergency room did not indicate any reason for the episode, she was placed in observation status on PCU and monitored on telemetry. Patient had an echocardiogram which was unremarkable. Discussions were carried out with the patient and her family about getting a loop recorder implanted, arrangements were made for her to see the cardiology group at [facility] for evaluation for that loop recorder. On 12/22/2024, patient was seen and examined: On examination she appeared in good health and spirits, she does not appear to be in any distress. Vital signs as documented. Skin warm and dry and without overt rashes. Neck without JVD, thyroid appears normal, trachea is midline, neck is supple. Lungs clear, normal air movement was noted. Heart exam notable for regular rhythm, normal sounds and absence of murmurs, rubs or gallops. Abdomen unremarkable and without evidence of organomegaly, masses, or abdominal aortic enlargement, bowel sounds are present in all 4 quadrants, no abdominal tenderness was noted. Extremities nonedematous, no cyanosis was noted, no clubbing was noted. Neuro: Cranial nerves II through XII are grossly intact, no focal motor deficits were noted, sensation to light touch and pinprick is intact, motor exam 5/5 throughout. Psych: Patient is alert and oriented x3, she does not appear anxious or depressed, she does not appear agitated. Patient was discharged home in stable condition on 12/22/2024 Weight / BMI Weight Weight: 63.2 kg Body Mass Index (BMI) 25.4 ABG / Lab / Microbiology Data 12/22/24 05:33 12/22/24 05:33 Laboratory: Laboratory Results - last 24 hr 12/21/24 19:50: WBC 10.7, RBC 3.76 L, Hgb 11.0 L, Hct 34.0 L, MCV 90.4, MCH 29.3, MCHC 32.4, RDW Std Deviation 47.8 H, RDW Coeff of Bailee 14.5, Plt Count 254, MPV 9.6, Immature Gran % (Auto) 0.400, Neut % (Auto) 57.0, Lymph % (Auto) 34.6, Brooks % (Auto) 7.3, Eos % (Auto) 0.4, Baso % (Auto) 0.3, Absolute Neuts (auto) 6.1, Absolute Lymphs (auto) 3.68, Nucleated RBC % 0, Sodium 134, Potassium 3.5, Chloride 99, Carbon Dioxide 23.1, Anion Gap 12, BUN 18, Creatinine 0.98, Estim Creat Clear Calc 36.10 L, Est GFR (MDRD) Non-Af 57 L, BUN/Creatinine Ratio 18.3, Glucose 101 H, Calcium 9.2, Total Bilirubin 0.47, Direct Bilirubin 0.21, AST 21, ALT 7, Alkaline Phosphatase 77, Troponin T High Sens 35 H, Total Protein 6.4, Albumin 3.6, Globulin 2.7, Lipase 17 12/21/24 20:00: Lactic Acid 1.7 12/21/24 20:34: Urine Color Yellow, Urine Clarity Clear, Urine pH 6.5, Ur Specific [place] 1.015, U rine Protein 30 H, Urine Glucose (UA) Normal, Urine Ketones Negative, Urine Occult Blood 10 H, Urine Nitrite Negative, Urine Bilirubin Negative, Urine Urobilinogen Normal, Ur Leukocyte Esterase Negative, Urine RBC 0-5 SEEN, Urine WBC 0-5 SEEN, Ur Squamous Epith Cells 5-10 SEEN, Urine Bacteria 0 SEEN, Hyaline Casts 0-5 SEEN, Urine Mucus 0 SEEN 12/21/24 22:00: Troponin T Hi Sens 2 Hr 35 H 12/21/24 23:50: Troponin T Hi Sens 4Hr 37 H 12/22/24 05:33: WBC 6.7, RBC 3.22 L, Hgb 9.4 L, Hct 29.4 L, MCV 91.3, MCH 29.2, MCHC 32.0, RDW Std Deviation 48.9 H, RDW Coeff of Bailee 14.6, Plt Co (more content not included)... [facility] 12-22-2024 Hospital Discharge instructions Additional Instructions Date of Discharge: 12/22/24 [facility] Work Phone: 12-22-2024 History and physical note Note Date/Time December 22, 2024 6:47am [facility] Medical Records Department [address] [place] [address] H&P Exam - Hospitalist 12/21/242117 MR#: [id number] Acct: [id number] Name: SPENSER PUTNAM Rep #:[id number] : 1940 84 From: Rachael Crook MD PCP: Dr. Juan Spann MD Status:ADM JANNETTE Location: [facility] [id number] HPI - General General Date of Admission: 12/21/24 Date of Service: 12/21/24 Chief Complaint: syncope HPI Narrative SPENSER PUTNAM, is a 84 F with a PMH as outlined who was admitted via the ED on 12/21/2024 with a complaint of syncope on hte day of admission. She had been feeling well until the evening of the day of admission when she passed out in her chair. Family said they noted she stopped breathing and per daughter she didnot have a pulse. Daughter prepared to start CPR, but patient came around spontaneously. She denied any dizziness, lightheadedness, nausea, vomiting or any other symptoms. She subsequently did admit to abdomina pain and some constipation. Per review of her chart she did have a similar presentation in November 2023 and workup was negative. 2D echo done then showed EF of 70% withno regional wall motion abnormalities. She did have a Holter monitor that at that time which showed that her predominant rhythm was sinus and there were 151 ventricular ectopic beats with a burden of less than 1% and 377 supraventricularectopic beats with a burden of less than 1% and 1 occurrence of supraventriculartachycardia with the fastest response. She had been doing well until this episode recurred. Vitals in the ED were blood pressure 106/47, pulse rate of 66 and respiratory rate 12. She was saturating at 97% on room air. CBC showed hemoglobin of 11 with WBC of 10.7 and platelets of 254. Chemistry showed sodium of 134 with potassium of 3.5 and bicarb of 23.1. Creatinine was 0.98. Urinalysis showed noevidence of UTI. EKG showed no acute ST changes. Chest x-ray showed no acute cardiopulmonary pathology. CT of the abdomen and pelvis done showed moderate tolarge amount of stool in the sigmoid colonic loops and no definite bowel obstruction. She has been admitted to be managed for syncope of unclear etiology. [facility] Medical History Elevated d-dimer Chronic anemia HLD (hyperlipidemia) HTN (hypertension) Back pain with radiculopathy Anxiety and depression RLS (restless legs syndrome) BPPV (benign paroxysmal positional vertigo) Home Medications ?Medication ?Instructions ?Recorded ?Last Taken ?Type aspirin 81 mg chewable tablet 81 mg PO DAILY@0800 hear t health 02/26/13 12/05/19 History calcium 600 mg (as 600 mg PO DINNER supplement 02/26/13 12/04/19 History carbonate)-vitamin D3 20 mcg (800 unit) tablet pravastatin 20 mg tablet 20 mg PO QHS cholesterol 12/04/19 History lisinopril 20 mg tablet 20 mg PO DAILY 03/31/21 Unkn own History potassium chloride 20 mEq 20 meq PO BID 11/13/23 Unkno wn History tablet,extended release spironolactone 50 mg tablet 50 mg PO DAILY 11/13/23 Un known History cholecalciferol (vitamin D3) 25 25 mcg PO DAILY Unknown History mcg (1,000 unit) capsule magnesium 200 mg tablet 400 mg PO DAILY 12/21/24 Unk nown History ropinirole 4 mg tablet 4 mg PO QHS 12/21/24 Unknown History Allergy/AdvReac Type Severity Reaction Status Date / Time Sulfa (Sulfonamide Allergy Swelling Verified 12/21/24 19:49 Antibiotics) acetaminophen (From Vicodin) AdvReac Vomiting Verified 12/21/24 19:49 hydrocodone bitartrate (From AdvReac Vomiting Verified 12/21/24 19:49 Vicodin) promethazine HCl (From AdvReac Vomiting Verified 12/21/24 19:49 Phenergan) Family History Mother Heart disease Father Heart disease Surgical History S/P cholecystectomy Social History household members: spouse Smoking Status: Never smoker alcohol intake: never substance use type: does not use ROS Constitutional Constitutional: Reports fatigue, malaise and weakness; Denies anorexia, chills or fever(s) Eyes Eyes: Denies blurry vision or change in vision ENT HEENT: Denies dysphagia, headache(s) or sore throat Cardiovascular Cardiovascular: Reports syncope; Denies chest pain, dyspnea on exertion, edema, lightheadedness, orthopnea, palpitations, paroxysmal nocturnal dyspnea or rapid heart rate Respiratory/Chest Respiratory/Chest: Denies cough, dyspnea, productive cough, shortness of breath at rest or shortness of breath with exertion Gastrointestinal Gastrointestinal: Denies abdominal pain, constipation, diarrhea, nausea or vomiting Genitourinary Genitourinary: Denies dysuria Neurologic Neurologic: Reports syncope; Denies confusion, dizziness, focal weakness, headache(s), numbness or seizures Psychiatric Psychiatric: Denies anxiety or depression Vital Signs Vital Signs Vital Signs: 12/21/24 19:49 12/21/24 19:53 12/21/24 21:00 Temperature 97.7 F L Temperature Source Oral Pulse Rate 58 L 58 L 66 Respiratory Rate 18 14 12 Blood Pressure 99/47 L 101/48 L 106/47 L Blood Pressure Mean 64 65 66 Pulse Ox 95 93 97 Oxygen Delivery Method Room Air Room Air Room Air Weight Weight: 136 lb 14.513 oz Body Mass Index (BMI) 25.8 Physical Exam Const alert, oriented x3 and no apparent distress General Appearance: cooperative HEENT normocephalic, head/scalp atraumatic, hearing grossly normal bilaterally, moist oral mucous membranes and oropharynx normal Eyes EOMs intact bilaterally and conjunctivae normal Neck supple and no JVD Resp normal respiratory effort, no retractions, no use of accessory muscles and clearto auscultation bilaterally Cardio regular rate, regular rhythm, S1 normal heart sound and S2 normal heart sound Cardio Narrative: grade 2-3 ejection systolic murmur at site of aorta and also over mitral valve area GI normal to inspection, nondistended, normoactive bowel sounds, soft to palpation,non-tender and non-distended Extremity normal to inspection, full ROM and no clubbing, cyanosis or edema Neuro oriented x3, CN's II-XII intact bilaterally, moves all extremities and no focal motor deficits Sensorium / Orientation: awake Motor Exam: strength 5/5 throughout Psych affect normal Results Lab / Micro Data 12/21/24 19:50 12/21/24 19:50 Labs: Laboratory Results - last 24 hr 12/21/24 19:50: WBC 10.7, RBC 3.76 L, Hgb 11.0 L, Hct 34.0 L, MCV 90.4, MCH 29.3, MCHC 32.4, RDW Std Deviation 47.8 H, RDW Coeff of Bailee 14.5, Plt Count 254,MPV 9.6, Immature Gran % (Auto) 0.400, Neut % (Auto) 57.0, Lymph % (Auto) 34.6, Brooks % (Auto) 7.3, Eos % (Auto) 0.4, Baso % (Auto) 0.3, Absolute Neuts (auto) 6.1, Absolute Lymphs (auto) 3.68, Nucleated RBC % 0, Sodium 134, Potassium 3.5, Chloride 99, Carbon Dioxide 23.1, Anion Gap 12, BUN 18, Creatinine 0.98, Estim Creat Clear Calc 36.10 L, Est GFR (MDRD) Non-Af 57 L, BUN/Creatinine Ratio 18.3,Glucose 101 H, Calcium 9.2, Total Bilirubin 0.47, Direct Bilirubin 0.21, AST 21,ALT 7, Alkaline Phosphatase 77, Total Protein 6.4, Albumin 3.6, Globulin 2.7, Lipase 17 12/21/24 20:00: Lactic Acid 1.7 12/21/24 20:34: Urine Color Yellow, Urine Clarity Clear, Urine pH 6.5, Ur Specific [place] 1.015, Urine Protein 30 H, Urine Glucose (UA) Normal, Urine Ketones Negative, Urine Occult Blood 10 H, Urine Nitrite Negative, Urine Bilirubin Negative, Urine Urobilinogen Normal, Ur Leukocyte Esterase Negative Rhythm Strip Rhythm Strip: Sinus bradycardia Rate: 57 Ectopy: None Imaging Radiology Impression Abdomen/Pelvis CT 12/21/24 20:05 IMPRESSION: No definite explanation for the patient's lower abdominal pain. There is a edbwskxd-ic-zvruu amount of stool in sigmoid colonic loops. No definite bowel obstruction however. Other details as above. Reading [facility] X-Ray 12/21/24 20:10 IMPRESSION: No acute abnormality. Reading [facility] Assessment & Plan Assessment/Plan (1) Syncope: PLAN: Plan #Syncope * Etiology of syncope is unclear. Patient was sitting in her chair and family noticed she had passed out. There was concern that she had lost her pulse and stopped breathing but came around before family could start CPR. * Blood pressure was in the 100 systolic but daughter says that is where she usually runs. * Of note she was seen in the ED ED and admitted in November 2023 for similar complaints. At that time her blood pressure was in the 90s systolic and neurology reviewed her. EEG done also did not show any evidence of any seizure and neurology did not think that the etiology was the brain. She also had a Holter monitor which showed a predominantly sinus rhythm with less than 1% ventricular and supraventricular ectopics and SVT. * 2D echo done then showed EF of 70% and no regional wall motion abnormalities. * Will admit to PCU under observation. Check orthostatics. * Her blood pressure was 100/50 at time of my review and had earlier on being 99/41. Daughter checked patient's most recent blood pressure at her PCPs which was in late November and was around 120 systolic. Patient is on lisinopril and spironolactone and I think her blood pressure usually runs too low for her to even be on blood pressure medication. Will therefore discontinue this. * She also did have aortic systolic murmur and I suspect that she may have some degree of aortic stenosis. This combined with her low blood pressure is likely contributing to her syncope a grade 2-3 * Repeat 2D echo. Hydrate gently with IV fluids. * Fall precautions. I suspect that this may be vasovagal as she had been sitting in a chair for a while. * #Probable aortic stenosis: * As above. Repeat 2D echo pending. * 2D echo from November showed EF of 70% and mild diffuse aortic valve thickening with peak aortic valve gradient of 21 mmHg and mean aortic valve gradient of 12 mmHg. * Repeat 2D echo ordered. * # Hypertension: On lisinopril and spironolactone. Hold BP meds as hypotension may be a cause of her symptoms. IV hydralazine as needed #Hyperlipidemia: On statin #Restless leg syndrome: On ropinirole DVT prophylaxis: Lovenox CODE STATUS:full code * Patient, daughter and counseled extensively about different types of CODE STATUS including full code, DNR CCA and DNR CCA. * Patient elects to be full code. * Total njos-lk-myen time 17 minutes. Charges/Coding Visit Charges Inpatient E&M: 97966 Init Hosp L2 Procedures Hospitalists Procedures: 80215 Advncd Care Plan 30 Min 12/22/24 0647 <Electronically signed by Rachael Crook MD> Cosigner Signature (if applicable): CC: Dr. Juan Spann MD; Dr. Rachael Crook MD~ Signed [facility] Work Phone: 1(155) 389-179110-15-2025 NoteHNO ID: [id number] Author: YUE KIRKLAND MA Service: ? Author Type: Computer Equipment Installer Type: Progress Notes Filed: 12/22/2024 08:18 Note Text: Scan on 12/21/2024 9:41 PM by Provider, Kirk, PA-C: [facility] ED Scan on 12/22/2024 6:54 AM by Provider, Kirk, PA-C: [facility] Hosp, Hospitalist [facility]10-15-2025 History and physical note [facility] Medical Records Department [address] [place] [address] H&P Exam - Hospitalist 12/21/242117 MR#: [id number] Acct: [id number] Name: SPENSER PUTNAM Rep #:[id number] : 1940 84 From: Rachael Crook MD PCP: Dr. Juan Spann MD Status:ADM JANNETTE Location: [place] [address] HPI - General General Date of Admission: 12/21/24 Date of Service: 12/21/24 Chief Complaint: syncope HPI Narrative SPENSER PUTNAM, is a 84 F with a PMH as outlined who was admitted via the ED on 12/21/2024 with a complaint of syncope on hte day of admission. She had been feeling well until the evening of the day of admission when she passed out in her chair. Family said they noted she stopped breathing and per daughter she didnot have a pulse. Daughter prepared to start CPR, but patient came around spontaneously. She denied any dizziness, lightheadedness, nausea, vomiting or any other symptoms. She subsequently did admit to abdomina pain and some constipation. Per review of her chart she did have a similarpresentation in November 2023 and workup was negative. 2D echo done then showed EF of 70% withno regional wall motion abnormalities. She did have a Holter monitor that at that time which showed thather predominant rhythm was sinus and there were 151 ventricular ectopic beats with a burden of lessthan 1% and 377 supraventricularectopic beats with a burden of less than 1% and 1 occurrence of supraventriculartachycardia with the fastest response. She had been doing well until this episode recurred. Vitals in the ED were blood pressure 106/47, pulse rate of 66 and respiratory rate 12. She was saturating at 97% on room air. CBC showed hemoglobin of 11 with WBC of 10.7 and platelets of 254. Chemistry showed sodium of 134 with potassium of 3.5 and bicarb of 23.1. Creatinine was 0.98. Urinalysis showed noevidence of UTI. EKG showed no acute ST changes. Chest x-ray showed no acute cardiopulmonarypathology. CT of the abdomen and pelvis done showed moderate tolarge amount of stool in the sigmoidcolonic loops and no definite bowel obstruction. She has been admitted to be managed for syncope ofunclear etiology. [facility] Medical History Elevated d-dimer Chronic anemia HLD (hyperlipidemia) HTN (hypertension) Back pain with radiculopathy Anxiety and depression RLS (restless legs syndrome) BPPV (benign paroxysmal positional vertigo) Home Medications ?Medication ?Instructions ?Recorded ?Last Taken ?Type aspirin 81 mg chewable tablet 81 mg PO DAILY@0800 hear t health 02/26/13 12/05/19 History calcium 600 mg (as 600 mg PO DINNER supplement 02/26/13 12/04/19 History carbonate)-vitamin D3 20 mcg (800 unit) tablet pravastatin 20 mg tablet 20 mg PO QHS cholesterol 12/04/19 History lisinopril 20 mg tablet 20 mg PO DAILY 03/31/21 Unkn own History potassium chloride 20 mEq 20 meq PO BID 11/13/23 Unkno wn History tablet,extended release spironolactone 50 mg tablet 50 mg PO DAILY 11/13/23 Un known History cholecalciferol (vitamin D3) 25 25 mcg PO DAILY Unknown History mcg (1,000 unit) capsule magnesium 200 mg tablet 400 mg PO DAILY 12/21/24 Unk nown History ropinirole 4 mg tablet 4 mg PO QHS 12/21/24 Unknown History Allergy/AdvReac Type Severity Reaction Status Date / Time Sulfa (Sulfonamide Allergy Swelling Verified 12/21/24 19:49 Antibiotics) acetaminophen (From Vicodin) AdvReac Vomiting Verified 12/21/24 19:49 hydrocodone bitartrate (From AdvReac Vomiting Verified 12/21/24 19:49 Vicodin) promethazine HCl (From AdvReac Vomiting Verified 12/21/24 19:49 Phenergan) Family History Mother Heart disease Father Heart disease Surgical History S/P cholecystectomy Social History household members: spouse Smoking Status: Never smoker alcohol intake: never substance use type: does not use ROS Constitutional Constitutional: Reports fatigue, malaise and weakness; Denies anorexia, chills or fever(s) Eyes Eyes: Denies blurry vision or change in vision ENT HEENT: Denies dysphagia, headache(s) or sore throat Cardiovascular Cardiovascular: Reports syncope; Denies chest pain, dyspnea on exertion, edema, lightheadedness, orthopnea, palpitations, paroxysmal nocturnal dyspnea or rapid heart rate Respiratory/Chest Respiratory/Chest: Denies cough, dyspnea, productive cough, shortness of breath at rest or shortness of breath with exertion Gastrointestinal Gastrointestinal: Denies abdominal pain, constipation, diarrhea, nausea or vomiting Genitourinary Genitourinary: Denies dysuria Neurologic Neurologic: Reports syncope; Denies confusion, dizziness, focal weakness, headache(s), numbness or seizures Psychiatric Psychiatric: Denies anxiety or depression Vital Signs Vital Signs Vital Signs: 12/21/24 19:49 12/21/24 19:53 12/21/24 21:00 Temperature 97.7 F L Temperature Source Oral Pulse Rate 58 L 58 L 66 Respiratory Rate 18 14 12 Blood Pressure 99/47 L 101/48 L 106/47 L Blood Pressure Mean 64 65 66 Pulse Ox 95 93 97 Oxygen Delivery Method Room Air Room Air Room Air Weight Weight: 136 lb 14.513 oz Body Mass Index (BMI) 25.8 Physical Exam Const alert, oriented x3 and no apparent distress General Appearance: cooperative HEENT normocephalic, head/scalp atraumatic, hearing grossly normal bilaterally, moist oral mucous membranes and oropharynx normal Eyes EOMs intact bilaterally and conjunctivae normal Neck supple and no JVD Resp normal respiratory effort, no retractions, no use of accessory muscles and clearto auscultation bilaterally Cardio regular rate, regular rhythm, S1 normal heart sound and S2 normal heart sound Cardio Narrative: grade 2-3 ejection systolic murmur at site of aorta and also over mitral valve area GI normal to inspection, nondistended, normoactive bowel sounds, soft to palpation,non-tender and non-distended Extremity normal to inspection, full ROM and no clubbing, cyanosis or edema Neuro oriented x3, CN's II-XII intact bilaterally, moves all extremities and no focal motor deficits Sensorium / Orientation: awake Motor Exam: strength 5/5 throughout Psych affect normal Results Lab / Micro Data 12/21/24 19:50 12/21/24 19:50 Labs: Laboratory Results - last 24 hr 12/21/24 19:50: WBC 10.7, RBC 3.76 L, Hgb 11.0 L, Hct 34.0 L, MCV 90.4, MCH 29.3, MCHC 32.4, RDW Std Deviation 47.8 H, RDW Coeff of Bailee 14.5, Plt Count 254,MPV 9.6, Immature Gran % (Auto) 0.400, Neut% (Auto) 57.0, Lymph % (Auto) 34.6, Brooks % (Auto) 7.3, Eos % (Auto) 0.4, Baso % (Auto) 0.3, Absolute Neuts (auto) 6.1, Absolute Lymphs (auto) 3.68, Nucleated RBC % 0, Sodium 134, Potassium 3.5, Chloride 99, Carbon Dioxide 23.1, Anion Gap 12, BUN 18, Creatinine 0.98, Estim Creat Clear Calc 36.10 L, Est GFR (MDRD) Non-Af 57 L, BUN/Creatinine Ratio 18.3,Glucose 101 H, Calcium 9.2, Total Bilirubin 0.47, Direct Bilirubin 0.21, AST 21,ALT 7, Alkaline Phosphatase 77, Total Protein 6.4, Albumin 3.6, Globulin 2.7, Lipase 17 12/21/24 20:00: Lactic Acid 1.7 12/21/24 20:34: Urine Color Yellow, Urine Clarity Clear, Urine pH 6.5, Ur Specific [place] 1.015, Urine Protein 30 H, Urine Glucose (UA) Normal, Urine Ketones Negative, Urine Occult Blood 10 H, UrineNitrite Negative, Urine Bilirubin Negative, Urine Urobilinogen Normal, Ur Leukocyte Esterase Negative Rhythm Strip Rhythm Strip: Sinus bradycardia Rate: 57 Ectopy: None Imaging Radiology Impression Abdomen/Pelvis CT 12/21/24 20:05 IMPRESSION: No definite explanation for the patient's lower abdominal pain. There is a jbyqvmyx-ul-hgyqw amount of stool in sigmoid colonic loops. No definite bowel obstruction however. Other details as above. Reading Location: [facility] Chest X-Ray 12/21/24 20:10 IMPRESSION: No acute abnormality. Reading Location: [facility] Assessment & Plan Assessment/Plan (1) Syncope: PLAN: Plan #Syncope * Etiology of syncope is unclear. Patient was sitting in her chair and family noticed she had passed out. There was concern that she had lost her pulse and stopped breathing but came around before family could start CPR. * Blood pressure was in the 100 systolic but daughter says that is where she usually runs. * Of note she was seen in the ED ED and admitted in November 2023 for similar complaints. At that time her blood pressure was in the 90s systolic and neurology reviewed her. EEG done also did not show any evidence of any seizure and neurology did not think that the etiology was the brain. She alsohad a Holter monitor which showed a predominantly sinus rhythm with less than 1% ventricular and supraventricular ectopics and SVT. * 2D echo done then showed EF of 70% and no regional wall motion abnormalities. * Will admit to PCU under observation. Check orthostatics. * Her blood pressure was 100/50 at time of my review and had earlier on being 99/41. Daughter checked patient's most recent blood pressure at her PCPs which was in late November and was around 120 systolic. Patient is on lisinopril and spironolactone and I think her blood pressure usually runs toolow for her to even be on blood pressure medication. Will therefore discontinue this. * She also did have aortic systolic murmur and I suspect that she may have some degree of aortic stenosis. This combined with her low blood pressure is likely contributing to her syncope a grade 2-3 * Repeat 2D echo. Hydrate gently with IV fluids. * Fall precautions. I suspect that this may be vasovagal as she had been sitting in a chair for a while. * #Probable aortic stenosis: * As above. Repeat 2D echo pending. * 2D echo from November showed EF of 70% and mild diffuse aortic valve thickening with peak aortic valve gradient of 21 mmHg and mean aortic valve gradient of 12 mmHg. * Repeat 2D echo ordered. * # Hypertension: On lisinopril and spironolactone. Hold BP meds as hypotension may be a cause of hersymptoms. IV hydralazine as needed #Hyperlipidemia: On statin #Restless leg syndrome: On ropinirole DVT prophylaxis: Lovenox CODE STATUS:full code * Patient, daughter and counseled extensively about different types of CODE STATUS including full code, DNR CCA and DNR CCA. * Patient elects to be full code. * Total [id number]-wwbh time 17 minutes. Charges/Coding Visit Charges Inpatient E&M: 61673 Init Hosp L2 Procedures Hospitalists Procedures: 68808 Advncd Care Plan 30 Min 12/22/24 0647 Cosigner Signature (if applicable): CC: Dr. Juan Spann MD; Dr. Rachael Crook MD~ Signed [facility]10-14-2025 Evaluation note* Diagnosis Onset Date Resolution Status Admit Date Chronic anemia inactive December 212024 9:33pm History of spinal stenosis inactive December 21, 2024 9:33pm Syncope inactive December 21, 2024 9:33pm [facility] Work Phone: 1(353) 315-253010-14-2025 Discharge summary Author Mabel Downing [facility] Note Date/Time December 21, 2024 9 :29pm [facility] Medical Records Department [address] [place] [address] Emergency Department Summary 12/21/24 MR#: [id number] Acct: [id number] Name: SPENSER PUTNAM Rep #:[id number] : 1940 84 From: Mabel Downing MD PCP: Dr. Juan Spann MD Status:REG ER Location: ED HPI History of Present Illness Chief Complaint: Syncope Detail of Chief Complaint: Syncopal event at home. Informant: patient and family ( and daughter at bedside.) Onset/Context/Timing Onset: Today Context: Sudden Onset Timing: Intermittent Current Severity: Mild Maximum Severity: Severe Narrative Narrative: 84-year-old female history of anemia, heart murmur, back surgery as a spinal stimulator. Was in her normal state of health. No recent illness. Jefe passed out at home. She passed on the chair they lowered her to the ground. Her daughter is in the medical field. Gave her 2 rescue breaths as she was not breathing and she could not palpate a pulse and the patient came to. She required no CPR. Daughter said this lasted maybe 5 minutes. Prior to the eventshe denied any headache, chest pain, shortness of breath. Now she states she does have some abdominal pain. Denies recent abdominal pain. No dysuria. No constipation or melena. This all occurred primarily around 7 PM. She has had syncopal events before but nothing to this degree. No known cardiac history or prior cardiac surgery. Prior similar symptoms: No Recent Illness/Hospitalization: No PFSH PFSH Medical History Elevated d-dimer Chronic anemia HLD (hyperlipidemia) HTN (hypertension) Back pain with radiculopathy Anxiety and depression RLS (restless legs syndrome) BPPV (benign paroxysmal positional vertigo) Home Medications ?Medication ?Instructions ?Recorded ?Last Taken ?Type aspirin 81 mg chewable tablet 81 mg PO DAILY@0800 hear t health 02/26/13 12/05/19 History calcium 600 mg (as 600 mg PO DINNER supplement 02/26/13 12/04/19 History carbonate)-vitamin D3 20 mcg (800 unit) tablet pravastatin 20 mg tablet 20 mg PO QHS cholesterol 12/04/19 History lisinopril 20 mg tablet 20 mg PO DAILY 03/31/21 Unkn own History potassium chloride 20 mEq 20 meq PO BID 11/13/23 Unkno wn History tablet,extended release spironolactone 50 mg tablet 50 mg PO DAILY 11/13/23 Un known History cholecalciferol (vitamin D3) 25 25 mcg PO DAILY Unknown History mcg (1,000 unit) capsule magnesium 200 mg tablet 400 mg PO DAILY 12/21/24 Unk nown History ropinirole 4 mg tablet 4 mg PO QHS 12/21/24 Unknown History Allergy/AdvReac Type Severity Reaction Status Date / Time Sulfa (Sulfonamide Allergy Swelling Verified 12/21/24 19:49 Antibiotics) acetaminophen (From Vicodin) AdvReac Vomiting Verified 12/21/24 19:49 hydrocodone bitartrate (From AdvReac Vomiting Verified 12/21/24 19:49 Vicodin) promethazine HCl (From AdvReac Vomiting Verified 12/21/24 19:49 Phenergan) Family History Mother Heart disease Father Heart disease Surgical History S/P cholecystectomy Social History household members: spouse Smoking Status: Never smoker alcohol intake: never substance use type: does not use ROS ROS ED ROS Narrative Denies recent illness. Constitutional Constitutional ED: Denies chills or fever(s) Eyes Eyes: Denies blurry vision Cardiovascular Cardiovascular: Denies chest pain Respiratory/Chest Respiratory/Chest: Denies cough or dyspnea Gastrointestinal Gastrointestinal: Reports abdominal pain and other Details: Abdominal pain afterthe syncopal event tonight. Genitourinary Genitourinary ED: Denies dysuria or hematuria Musculoskeletal Musculoskeletal: Denies arthralgias Integumentary Denies abscess Neurologic Neurologic: Denies headache(s) Psychiatric Psychiatric: Denies anxiety Endocrine Endocrinology: Denies cold intolerance Hematologic/Lymphatic Hematologic/Lymphatic: Reports none Allergic/Immunologic Allergic/Immunologic ED: Denies mouth swelling, tongue swelling or urticaria EXAM Physical Exam Narrative Exam Narrative: 84-year-old female sitting upright in bed. Blood pressure 99/47 daughter statesshe normally runs low like this. Patient is awake alert. and daughter at bedside. H EENT exam pupils round react light. Moist rehemorrhage. No facial droop. No trauma to her face or scalp. Neck nontender. Back nontender. Lungs clear to auscultation bilaterally. Heart rate about 58 4/6 systolic ejection murmur with a history of a murmur. Chest wall and ribs nontender. Abdomen soft nondistended normal bowel sounds. Tender in the periumbilical and lower quadrants. No pulsatile mass. No peritoneal signs. No obstruction. Moving all 4 extremities. Normal clerical order filler strength. Strong radial pulse. Dorsi plantarflexion intact. Calves nontender without edema or cords. Neurologicallyshe is awake alert. Answering questions following commands. Const Vital Signs: 12/21/24 19:49 12/21/24 19:53 12/21/24 21:00 Temperature 97.7 F L Temperature Source Oral Pulse Rate 58 L 58 L 66 Respiratory Rate 18 14 12 Blood Pressure 99/47 L 101/48 L 106/47 L Blood Pressure Mean 64 65 66 Pulse Ox 95 93 97 Oxygen Delivery Method Room Air Room Air Room Air MDM MDM MDM Narrative Medical decision making narrative: 84-year-old with a syncopal event at home that required 2 rescue breaths and shecame to prior to initiating any CPR. On exam she has borderline hypotension with a blood pressure around 100. Typically blood pressure runs low according to her daughter. She also has lower abdominal pain. Differential could includedysrhythmia, HI, sick sinus syndrome, intra-abdominal pathology versus other. Should be given a liter normal saline. Cardiac workup along with CT abdomen andabdominal labs. Patient given Zofran for nausea. Repeat exam around 9:15 PM patient doing well. Feeling better. We went over her test results do not have a specific cause of her syncope. They are comfortable however given that she is 84 to admit her for syncope of uncertain etiology for further evaluation. At the hospitalist on page. Currently she is resting comfortably. Vital signs are stable. History & Record Review Discussion w/independent historian: Patient and Family Additional record(s) reviewed:: Prior inpatient record, Prior outpatient record,Prior ED visit and Prior labs Lab Data Attestation: I reviewed the patient's lab results. Lab results narrative: CBC shows a white count 10.7. H&H of 11.0 and 34 consistent with baseline anemia. Platelets 254. Chemistries show a gap of 12. Normal BUN and creatinine 18 and 0.9. Glucose 101. Lactic acid normal at 1.7. Urinalysis negative. No nitrates. Liver enzymes unremarkable. Lipase normal at 17. CT abdomen no acute process. Chronic changes. Labs: Laboratory Results - last 24 hr 12/21/24 12/21/24 12/21/24 19:50 20:00 20:34 WBC 10.7 RBC 3.76 L Hgb 11.0 L Hct 34.0 L MCV 90.4 MCH 29.3 MCHC 32.4 RDW Std Deviation 47.8 H RDW Coeff of Bailee 14.5 Plt Count 254 MPV 9.6 Immature Gran % (Auto) 0.400 Neut % (Auto) 57.0 Lymph % (Auto) 34.6 Brooks % (Auto) 7.3 Eos % (Auto) 0.4 Baso % (Auto) 0.3 Absolute Neuts (auto) 6.1 Absolute Lymphs (auto) 3.68 Nucleated RBC % 0 Sodium 134 Potassium 3.5 Chloride 99 Carbon Dioxide 23.1 Anion Gap 12 BUN 18 Creatinine 0.98 Estim Creat Clear Calc 36.10 L Est GFR (MDRD) Non-Af 57 L BUN/Creatinine Ratio 18.3 Glucose 101 H Lactic Acid 1.7 Calcium 9.2 Total Bilirubin 0.47 Direct Bilirubin 0.21 AST 21 ALT 7 Alkaline Phosphatase 77 Total Protein 6.4 Albumin 3.6 Globulin 2.7 Lipase 17 Urine Color Yellow Urine Clarity Clear Urine pH 6.5 Ur Specific [place] 1.015 Urine Protein 30 H Urine Glucose (UA) Normal Urine Ketones Negative Urine Occult Blood 10 H Urine Nitrite Negative Urine Bilirubin Negative Urine Urobilinogen Normal Ur Leukocyte Esterase Negative Radiography Chest X-Ray - ED: 2 View, Read by ED Physician, Read by Radiologist, Normal, Heart, Lungs, Mediastinum, Bony Structures, No Acute Disease and Chronic Changes Diagnostic Testing: Clinical Impression(s) from Imaging Studies Abdomen/Pelvis CT 12/21/24 20:05 IMPRESSION: No definite explanation for the patient's lower abdominal pain. There is a myhgimjr-dq-rovxe amount of stool in sigmoid colonic loops. No definite bowel obstruction however. Other details as above. Reading Location: [facility] Chest X-Ray 12/21/24 20:10 IMPRESSION: No acute abnormality. Reading [facility] Chest x-ray, 2 views, AP lateral, interpreted by by myself and the radiologist shows no acute abnormality. Normal cardiac silhouette. Normal mediastinum. Spine stimulator. Unremarkable lung acuña. Chronic changes. No acute process. Rhythm Strip Rhythm Strip: Sinus bradycardia Rate: 57 Ectopy: None EKG Initial EKG: Attestation: I personally reviewed and interpreted this EKG as follows: Interpretation: Sinus Bradycardia Comments: Sinus bradycardia. Rate of 57. No acute signs of HI or ischemia. Discharge Plan Dx/Rx/DC Orders Clinical Impression: Syncope, Chronic anemia, History of spinal stenosis Disposition Disposition: Acute Care Hospital [facility] What to do if you have Problems For any increased pain, shortness of breath, bleeding, nausea or vomiting, chestpain, or any unexpected problems, contact your Primary Care Provider. Call [facility] ([phone]) or report to the closest Emergency Room. Call 911 if necessary. 12/21/242128 <Electronically signed by Mabel Downing MD> Cosigner Signature (if applicable): CC: Dr. Juan Spann MD ~ Signed [facility] Work Phone: [phone] 375-121810-14-2025 Discharge summary [facility] Medical Records Department [address] [place] [address] Emergency Department Summary 12/21/24 MR#: [id number] Acct: [id number] Name: SPENSER PUTNAM Rep #:[id number] : 1940 84 From: Mabel Downing MD PCP: Dr. Juan Spann MD Status:REG ER Location: ED HPI History of Present Illness Chief Complaint: Syncope Detail of Chief Complaint: Syncopal event at home. Informant: patient and family ( and daughter at bedside.) Onset/Context/Timing Onset: Today Context: Sudden Onset Timing: Intermittent Current Severity: Mild Maximum Severity: Severe Narrative Narrative: 84-year-old female history of anemia, heart murmur, back surgery as a spinal stimulator. Was in hernormal state of health. No recent illness. Jefe passed out at home. She passed on the chair theylowered her to the ground. Her daughter is in the medical field. Gave her 2 rescue breaths as she was not breathing and she could not palpate a pulse and the patient came to. She required no CPR. Daughter said this lasted maybe 5 minutes. Prior to the eventshe denied any headache, chest pain, shortness of breath. Now she states she does have some abdominal pain. Denies recent abdominal pain. No dysuria. No constipation or melena. This all occurred primarily around 7 PM. She has had syncopal events before but nothing to this degree. No known cardiac history or prior cardiac surgery. Prior similar symptoms: No Recent Illness/Hospitalization: No PFSH PFSH Medical History Elevated d-dimer Chronic anemia HLD (hyperlipidemia) HTN (hypertension) Back pain with radiculopathy Anxiety and depression RLS (restless legs syndrome) BPPV (benign paroxysmal positional vertigo) Home Medications ?Medication ?Instructions ?Recorded ?Last Taken ?Type aspirin 81 mg chewable tablet 81 mg PO DAILY@0800 hear t health 02/26/13 12/05/19 History calcium 600 mg (as 600 mg PO DINNER supplement 02/26/13 12/04/19 History carbonate)-vitamin D3 20 mcg (800 unit) tablet pravastatin 20 mg tablet 20 mg PO QHS cholesterol 12/04/19 History lisinopril 20 mg tablet 20 mg PO DAILY 03/31/21 Unkn own History potassium chloride 20 mEq 20 meq PO BID 11/13/23 Unkno wn History tablet,extended release spironolactone 50 mg tablet 50 mg PO DAILY 11/13/23 Un known History cholecalciferol (vitamin D3) 25 25 mcg PO DAILY Unknown History mcg (1,000 unit) capsule magnesium 200 mg tablet 400 mg PO DAILY 12/21/24 Unk nown History ropinirole 4 mg tablet 4 mg PO QHS 12/21/24 Unknown History Allergy/AdvReac Type Severity Reaction Status Date / Time Sulfa (Sulfonamide Allergy Swelling Verified 12/21/24 19:49 Antibiotics) acetaminophen (From Vicodin) AdvReac Vomiting Verified 12/21/24 19:49 hydrocodone bitartrate (From AdvReac Vomiting Verified 12/21/24 19:49 Vicodin) promethazine HCl (From AdvReac Vomiting Verified 12/21/24 19:49 Phenergan) Family History Mother Heart disease Father Heart disease Surgical History S/P cholecystectomy Social History household members: spouse Smoking Status: Never smoker alcohol intake: never substance use type: does not use ROS ROS ED ROS Narrative Denies recent illness. Constitutional Constitutional ED: Denies chills or fever(s) Eyes Eyes: Denies blurry vision Cardiovascular Cardiovascular: Denies chest pain Respiratory/Chest Respiratory/Chest: Denies cough or dyspnea Gastrointestinal Gastrointestinal: Reports abdominal pain and other Details: Abdominal pain afterthe syncopal event tonight. Genitourinary Genitourinary ED: Denies dysuria or hematuria Musculoskeletal Musculoskeletal: Denies arthralgias Integumentary Denies abscess Neurologic Neurologic: Denies headache(s) Psychiatric Psychiatric: Denies anxiety Endocrine Endocrinology: Denies cold intolerance Hematologic/Lymphatic Hematologic/Lymphatic: Reports none Allergic/Immunologic Allergic/Immunologic ED: Denies mouth swelling, tongue swelling or urticaria EXAM Physical Exam Narrative Exam Narrative: 84-year-old female sitting upright in bed. Blood pressure 99/47 daughter statesshe normally runs low like this. Patient is awake alert. and daughter at bedside. H EENT exam pupils round reactlight. Moist rehemorrhage. No facial droop. No trauma to her face or scalp. Neck nontender. Back nontender. Lungs clear to auscultation bilaterally. Heart rate about 58 4/6 systolic ejection murmur with a history of a murmur. Chest wall and ribs nontender. Abdomen soft nondistended normal bowel sounds. Tender in the periumbilical and lower quadrants. No pulsatile mass. No peritoneal signs. No obstruction. Moving all 4 extremities. Normal clerical order filler strength. Strong radial pulse. Dorsi plantarflexion intact. Calves nontender without edema or cords. Neurologicallyshe is awake alert. Answering questions following commands. Const Vital Signs: 12/21/24 19:49 12/21/24 19:53 12/21/24 21:00 Temperature 97.7 F L Temperature Source Oral Pulse Rate 58 L 58 L 66 Respiratory Rate 18 14 12 Blood Pressure 99/47 L 101/48 L 106/47 L Blood Pressure Mean 64 65 66 Pulse Ox 95 93 97 Oxygen Delivery Method Room Air Room Air Room Air MDM MDM MDM Narrative Medical decision making narrative: 84-year-old with a syncopal event at home that required 2 rescue breaths and shecame to prior to initiating any CPR. On exam she has borderline hypotension with a blood pressure around 100. Typicallyblood pressure runs low according to her daughter. She also has lower abdominal pain. Differential could includedysrhythmia, HI, sick sinus syndrome, intra-abdominal pathology versus other. Should begiven a liter normal saline. Cardiac workup along with CT abdomen andabdominal labs. Patient given Zofran for nausea. Repeat exam around 9:15 PM patient doing well. Feeling better. We went over her test results do nothave a specific cause of her syncope. They are comfortable however given that she is 84 to admit her for syncope of uncertain etiology for further evaluation. At the hospitalist on page. Currently she is resting comfortably. Vital signs are stable. History & Record Review Discussion w/independent historian: Patient and Family Additional record(s) reviewed:: Prior inpatient record, Prior outpatient record,Prior ED visit and Prior labs Lab Data Attestation: I reviewed the patient's lab results. Lab results narrative: CBC shows a white count 10.7. H&H of 11.0 and 34 consistent with baseline anemia. Platelets 254. Chemistries show a gap of 12. Normal BUN and creatinine 18 and 0.9. Glucose 101. Lactic acid normal at 1.7. Urinalysis negative. No nitrates. Liver enzymes unremarkable. Lipase normal at 17. CT abdomen no acute process. Chronic changes. Labs: Laboratory Results - last 24 hr 12/21/24 12/21/24 12/21/24 19:50 20:00 20:34 WBC 10.7 RBC 3.76 L Hgb 11.0 L Hct 34.0 L MCV 90.4 MCH 29.3 MCHC 32.4 RDW Std Deviation 47.8 H RDW Coeff of Bailee 14.5 Plt Count 254 MPV 9.6 Immature Gran % (Auto) 0.400 Neut % (Auto) 57.0 Lymph % (Auto) 34.6 Brooks % (Auto) 7.3 Eos % (Auto) 0.4 Baso % (Auto) 0.3 Absolute Neuts (auto) 6.1 Absolute Lymphs (auto) 3.68 Nucleated RBC % 0 Sodium 134 Potassium 3.5 Chloride 99 Carbon Dioxide 23.1 Anion Gap 12 BUN 18 Creatinine 0.98 Estim Creat Clear Calc 36.10 L Est GFR (MDRD) Non-Af 57 L BUN/Creatinine Ratio 18.3 Glucose 101 H Lactic Acid 1.7 Calcium 9.2 Total Bilirubin 0.47 Direct Bilirubin 0.21 AST 21 ALT 7 Alkaline Phosphatase 77 Total Protein 6.4 Albumin 3.6 Globulin 2.7 Lipase 17 Urine Color Yellow Urine Clarity Clear Urine pH 6.5 Ur Specific [place] 1.015 Urine Protein 30 H Urine Glucose (UA) Normal Urine Ketones Negative Urine Occult Blood 10 H Urine Nitrite Negative Urine Bilirubin Negative Urine Urobilinogen Normal Ur Leukocyte Esterase Negative Radiography Chest X-Ray - ED: 2 View, Read by ED Physician, Read by Radiologist, Normal, Heart, Lungs, Mediastinum, Bony Structures, No Acute Disease and Chronic Changes Diagnostic Testing: Clinical Impression(s) from Imaging Studies Abdomen/Pelvis CT 12/21/24 20:05 IMPRESSION: No definite explanation for the patient's lower abdominal pain. There is a uhpwyyzi-fq-bouxn amount of stool in sigmoid colonic loops. No definite bowel obstruction however. Other details as above. Reading Location: [facility] Chest X-Ray 12/21/24 20:10 IMPRESSION: No acute abnormality. Reading Location: [facility] Chest x-ray, 2 views, AP lateral, interpreted by by myself and the radiologist shows no acute abnormality. Normal cardiac silhouette. Normal mediastinum. Spine stimulator. Unremarkable lung acuña. Chronic changes. No acute process. Rhythm Strip Rhythm Strip: Sinus bradycardia Rate: 57 Ectopy: None EKG Initial EKG: Attestation: I personally reviewed and interpreted this EKG as follows: Interpretation: Sinus Bradycardia Comments: Sinus bradycardia. Rate of 57. No acute signs of HI or ischemia. Discharge Plan Dx/Rx/DC Orders Clinical Impression: Syncope, Chronic anemia, History of spinal stenosis Disposition Disposition: Acute Care Hospital [facility] What to do if you have Problems For any increased pain, shortness of breath, bleeding, nausea or vomiting, chestpain, or any unexpected problems, contact your Primary Care Provider. Call [facility] ([phone]) or report tothe closest Emergency Room. Call 911 if necessary. 12/21/242128 Cosigner Signature (if applicable): CC: Dr. Juan pSann MD ~ Signed [facility]10-14-2025 Radiology Diagnostic study note [facility] Imaging Services [address] [place] [address] Abdomen/Pelvis W IV Cont ONLY MR#: [id number] Acct: [id number] Name: SPENSER PUTNAM Rep #: [id number] : 1940 F 84 From: Nigel Clinton MD PCP: Dr. Juan Spann MD Status: REG ER Study:Abdomen/Pelvis W IV Cont ONLY Date of E xam: 12/21/24 Exam# [id number] Ordering Dr: Araceli Downing MD PROCEDURE: ABDOMEN/PELVIS W IV CONT ONLY 12/21/2024 REASON FOR EXAM: LOWER ABD PAIN TECHNIQUE: Procedure Code: CTABDPELIV Modality: CT Procedure: ABDOMEN/PELVIS W IV CONT ONLY Coronal and Sagittal reconstruction series were provided. CONTRAST: Isovue 300 VOLUME: 90 mL One or more dose reduction techniques were used (e.g., Automated exposure control, adjustment of the mA and/or kV according to patient size, use of iterative reconstruction technique. RADIATION DOSE SUMMARY: CTDlvol: 14.02 mGy DLP: 665.29 mGycm COMPARISON: None FINDINGS: Lung bases: There is dependent atelectasis at the lung bases. Atherosclerotic coronary calcifications are present. Calcified granulomata are noted in the right lower lung zone. There may be tiny noncalcified nodules noted although respiratory motion and dependent atelectasis limits. Liver: The liver is grossly unremarkable. Gallbladder: The gallbladder is surgically absent. There is likely compensatorycommon and intrahepatic biliary ductal dilatation. Spleen: Unremarkable Pancreas: The pancreas is atrophic but otherwise unremarkable. Adrenals: Unremarkable Kidneys: There is no hydronephrosis or nephrolithiasis. Bladder: Unremarkable. Reproductive Organs: Unremarkable Bowel: There is a moderate amount colonic stool. No evidence of bowel obstruction. Appendix: The appendix is not definitively seen. There are no inflammatory changes in the right lower quadrant to suggest acute appendicitis. Lymph nodes: There is no intra-abdominal adenopathy. Vasculature: Atherosclerotic aortoiliac calcifications are present. Peritoneum / Retroperitoneum: No free air or free fluid. Bones: There is mild levoconvex curvature of the lumbar spine. Fusion hardware is noted at L3 through L5. Degenerative disc space narrowing is noted at L5-S1 and there is grade 1 anterolisthesis of L4 on L5 and L5 on S1. A spinal stimulator is present. There are calcifications noted at the hamstring origins bilaterally, potentiallyrelated to chronic stress/old injury. CT/Abdomen/Pelvis W IV Cont ONLY IMPRESSION: No definite explanation for the patient's lower abdominal pain. There is a bmptdyvd-tk-ysmtl amount of stool in sigmoid colonic loops. No definite bowel obstruction however. Other details as above. Reading Location: [facility] CC: Dr. Mabel Downing MD; Dr. Juan Spann MD ~ Ring Facer: Signed [facility]10-14-2025 Radiology Diagnostic study note [facility] Imaging Services [address] [place] [address] Chest PA and Lateral MR#: [id number] Acct: [id number] Name: SPENSER PUTNAM Rep #: [id number] : 1940 F 84 From: Nigel Clinton MD PCP: Dr. Juan Spann MD Status: REG ER Study:Chest PA and Lateral Date of Exam: 12/21/24 Exam# [id number] Ordering Dr: Araceli Downing MD PROCEDURE: CHEST PA AND LATERAL 12/21/2024 REASON FOR EXAM: SYNCOPE TECHNIQUE: Procedure Code: RADCXR Modality: DX Procedure: CHEST PA AND LATERAL COMPARISON: None FINDINGS: The lungs are hyperinflated. There is no focal consolidation, pneumothorax, or pleural effusion. The cardiomediastinal silhouette is unremarkable. Spinal stimulators overlie the thoracic spine. No acute osseous abnormality. RAD/Chest PA and Lateral IMPRESSION: No acute abnormality. Reading Location: [facility] CC: Dr. Mabel Downing MD; Dr. Juan Spann MD ~ Ring Facer: Signed [facility]09-29-2025 NoteHNO ID: [id number] Author: LAWRENCE LOPEZ RT(R) Service: ? Author Type: Rate Setter Type: Progress Notes Filed: 12/06/2024 14:44 Note Text: Radiology Service Progress Note PATIENT NAME: Spenser Putnam DATE OF SERVICE: December 06, 2024 TIME: 2:22 PM PATIENT IDENTITY VERIFICATION COMPLETED USING TWO (2) IDENTIFIERS: Name and Date of confirmed by patient verbally. FALL SCREENING: Has the patient had 2 falls in the last year or 1 fall with injury or currently using an Ambulatory Assistive Device (Walker, Cane, Wheelchair, Crutches, etc.)? No PATIENT GENDER DATA: Assigned female at . status: : No status: NO. PATIENT RELEVANT IMPLANT DATA REVIEWED: Yes PATIENT PRESENTS WITH AN IMPLANTABLE OR ATTACHED OPERATIONS ANALYST: No RADIOLOGY DEPARTMENT: General X-ray: Exam(s) Completed: Pelvis X-Ray: Pelvis with Hip Right PERIPHERAL IV DATA: Not applicable SIGNED BY: RT Joanna(R) December 06, 2024 2:22 [facility]09-29-2025 NoteHNO ID: [id number] Author: JUAN SPANN MD Service: ? Author Type: Physician Type: Progress Notes Filed: 12/06/2024 15:34 Note Text: Chief Complaint Patient presents with: Pain: Right groin, upper leg HPI Spenser Putnam is a 83 year old female who presents here today for an acute visit. Patient presents to the office today for severe right upper leg/groin pain that is limiting mobility. Pt states that she's been getting along fine since she had spinal stimulator surgery and placed, back in June, until recently about 2-3 weeks ago. Recently she's been experiencing right groin pain, but mostly in the right upper leg but near her private area of an intense aching and stabbing pain that's rated an 8-9/10. Pain is very localized, denies pain radiating any where or down her leg. With every step the pain is severe. Patient did not report any urinary/bowel incontinence just pain. She was previously using a cane to ambulate but has now switched to a walker, since pain has worsened. When she's ambulating without an assistive device she has to have help and can only go short distances. Denies knowing what has caused this, denies any injury. She said last night was one of her worst nights, she maybe got two hours of sleep. On the phone, patient just stated she wasn't sure how to really describe it other than painful. Has question about Requip, states the new mental health coordinator is making her ill. Spenser is an 83-year-old female with a history of arthritis, presenting with acute right hip pain. Spenser reports a recent onset of right hip pain, which she initially thought might be due to a strain or pull. The pain is localized in the groin area and is described as severe, particularly exacerbated last night, resulting in only 2 hours of sleep. She has been taking Aleve for pain management. She denies any associated weakness or numbness in the leg. She has a history of arthritis and had a hip x-ray in 2022, which showed mild to moderate changes with prominent spurring at the right hip, similar to a previous x-ray in 2015. She also has a spinal stimulator, which has improved her back pain but has reportedly caused diarrhea. She has been more active recently, and this may have contributed to the hip pain. She also reports experiencing nausea after taking a new generic form of her medication, Ropinirole, for two nights. She notes that the new medication is a different color and has caused significant nausea, requiring her to keep a bowl nearby. She plans to ask her pharmacy for a different medication. Past medical history, appointments, medications, allergies reviewed. 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 Macias, Rt anterior shoulder, Gilberto III, pT1a, pNX, pM N/A Mixed hyperlipidemia 10/13/2014 Multiple thyroid nodules 09/15/2017 CT neck09/2017 7 mm nodule, US .2018 multiple small nodules repeat 09/2019 Non morbid obesity 03/29/2016 Osteopenia, senile 07/02/2005 SEE DEXA 07/15 Other chronic dermatitis due to solar radiation 03/27/2006 Other psoriasis 04/16/2013 Other seborrheic keratosis 06/23/2006 Personal history of other malignant neoplasm of skin 03/22/2013 Raynaud's phenomenon without gangrene 06/07/2020 suspected Restless leg syndrome Sensorineural hearing loss, asymmetrical 10/08/2017 Solar lentigo 03/22/2013 Spinal stenosis of lumbar region 06/17/2023 Spinal stenosis, lumbar region, without neurogenic claudication 07/25/2023 Spondylolisthesis at L5-S1 level 10/20/2012 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 09/15/2012 Vertigo 12/03/2021 MRI normal and patient declined further eval as of 12/03/21 Vitamin B12 deficiency 11/09/2023 Vitamin D deficiency 08/24/2016 Xerosis cutis 03/22/2013 Previous Surgical History PAST SURGICAL HISTORY Procedure Laterality Date ABDOMINAL SURGERY HX BACK SURGERY HX 01/23/2021 lateral lumbar interbody fusion L3-4 CHOLECYSTECTOMY age 52 +/- laparoscopic cholecystectomy COLONOSCOPY 04/29/2013 Dr. Patton, repeat 5 yrs COLONOSCOPY FLX DX W/COLLJ SPEC WHEN PFRMD (more content not included)... [facility]09-10-2025 Telephone encounter Note* Telephone Encounter - Rosalba Clement RN - 11/17/2024 10:58 AM EDT The patient has been identified by name and date of : Yes Caregiver verified no other encounters exist for this prescription request: Yes Caregiver confirmed with patient/requestor that no other refills are due, in the near future, with this provider at this time: Yes The last office visit in the department: 09/17/2024 Does the patient have a future office visit with this provider/department: Yes 03/21/2025 Requested Prescriptions Pending Prescriptions Disp Refills rOPINIRole (REQUIP) 4 mg tablet 90 tablet 1 Sig: Take 1 tablet by mouth daily at bedtime. Rosalba Clement RN November 17, 2024 11:02 AM [facility]09-10-2025 Miscellaneous Notes* Telephone Encounter - Rosalba Clement RN - 11/17/2024 10:58 AM EDT The patient has been identified by name and date of : Yes Caregiver verified no other encounters exist for this prescription request: Yes Caregiver confirmed with patient/requestor that no other refills are due, in the near future, with this provider at this time: Yes The last office visit in the department: 09/17/2024 Does the patient have a future office visit with this provider/department: Yes 03/21/2025 Requested Prescriptions Pending Prescriptions Disp Refills rOPINIRole (REQUIP) 4 mg tablet 90 tablet 1 Sig: Take 1 tablet by mouth daily at bedtime. Rosalba Clement RN November 17, 2024 11:02 AM [facility] History of Present illness Narrative* Karen Zapata RDMS - 10/08/2024 2:30 PM EDT Radiology Service Progress Note PATIENT NAME: Spenser Putnam DATE OF SERVICE: October 08, 2024 TIME: 2:25 PM PATIENT IDENTITY VERIFICATION COMPLETED USING TWO (2) IDENTIFIERS: Name and Date of confirmedby patient verbally. FALL SCREENING: Has the patient had 2 falls in the last year or 1 fall with injury or currently using an Ambulatory Assistive Device (Walker, Cane, Wheelchair, Crutches, etc.)? Yes, Patient High Riskfor Falls What interventions were put in place to prevent falls during this visit? Increased Observations by Caregivers and Patient Refused Interventions/Assistance PATIENT GENDER DATA: Assigned female at . status: : No status:NO. PATIENT RELEVANT IMPLANT DATA REVIEWED: Not Applicable PATIENT PRESENTS WITH AN IMPLANTABLE OR ATTACHED OPERATIONS ANALYST: No RADIOLOGY DEPARTMENT: Ultrasound PERIPHERAL IV DATA: Not applicable SIGNED BY: Karen Zapata RDMS October 08, 2024 2:25 PM documented in this encounterC[facility] NoteHNO ID: [id number] Author: KAREN ZAPATA RDMS Service: ? Author Type: Rate Setter Type: Progress Notes Filed: 10/08/2024 14:25 Note Text: Radiology Service Progress Note PATIENT NAME: Spenser Putnam DATE OF SERVICE: October 08, 2024 TIME: 2:25 PM PATIENT IDENTITY VERIFICATION COMPLETED USING TWO (2) IDENTIFIERS: Name and Date of confirmed by patient verbally. FALL SCREENING: Has the patient had 2 falls in the last year or 1 fall with injury or currently using an Ambulatory Assistive Device (Walker, Cane, Wheelchair, Crutches, etc.)? Yes, Patient High Risk for Falls What interventions were put in place to prevent falls during this visit? Increased Observations by Caregivers and Patient Refused Interventions/Assistance PATIENT GENDER DATA: Assigned female at . status: : No status: NO. PATIENT RELEVANT IMPLANT DATA REVIEWED: Not Applicable PATIENT PRESENTS WITH AN IMPLANTABLE OR ATTACHED OPERATIONS ANALYST: No RADIOLOGY DEPARTMENT: Ultrasound PERIPHERAL IV DATA: Not applicable SIGNED BY: Karen Zapata RDMS October 08, 2024 2:25 PMCK[facility]07-25-2025 Telephone encounter Note* Telephone Encounter - Jonas Milan LPN - 10/01/2024 1:54 PM EDT Pt notified of same. Jonas Milan LPN [facility]07-25-2025 Miscellaneous Notes* Telephone Encounter - Jonas Milan LPN - 10/01/2024 1:54 PM EDT Pt notified of same. Jonas Milan LPN * Telephone Encounter - Destini Lay PA-C - 10/01/2024 11:23 AM EDT Let patient know that her labs were all okay/stable. Thanks. Destini Lay PA-C documented in this encounterC[facility]07-[facility]25 Telephone encounter Note * Telephone Encounter - Destini Lay PA-C - 10/01/2024 11:23 AM EDT Let patient know that her labs were all okay/stable. Thanks. Destini Lay PA-C [facility]07-11-2025 Instructions* Patient Instructions* Juan Spann MD - 09/17/2024 9:35 AM EDT Consider getting a Tdap for tetanus booster at a local pharmacy. Please get labs done on or after 03/04/2025 prior to your next visit. We discussed your spinal stimulator and back pain: - You are no longer taking pregabalin, and you are managing your back pain with the spinal stimulator. - The stimulator was placed in June, and you have been charging it daily. Continue to follow the instructions provided by the surgical team. - If you experience any issues with the stimulator, please contact the team at [facility] where it was placed. We discussed your heart murmur and leaky heart valves: - You have a known heart murmur caused by leaky heart valves, which was confirmed on an echocardiogram in 2020. At that time, your aortic valve was not narrowed, and your heart function was normal. - We do not need to repeat the echocardiogram until 2025 unless new symptoms arise. - You have a bruit sound in your neck, which may be related to your heart valve. To ensure there isno narrowing in your neck arteries, I have ordered a carotid ultrasound. We discussed your thyroid: - You are due for a repeat thyroid ultrasound this year. We will try to schedule this on the same day as your carotid ultrasound for convenience. We discussed your general health: - You reported occasional diarrhea, which may be related to the spinal stimulator. Continue monitoring this, and let us know if it worsens or becomes bothersome. - You have noticed easy bruising when you bump yourself. This is common as we age, but please let us know if you notice significant changes or if bruising occurs without injury. We discussed vaccinations: - You received your COVID-19 booster today. We discussed lab work: - I have placed orders for your blood work. You may complete this today before leaving or at your convenience. Follow-Up: - Schedule a follow-up appointment with [facility] in 6 months. - Complete the carotid ultrasound and thyroid ultrasound as discussed. Kaylene will assist with scheduling these tests. - Please contact our office if you experience any new or worsening symptoms, including chest pain, shortness of breath, or significant changes in your health. Thank you for coming in today. documented in this encounterCleveland [facility]07-11-2025 NoteHNO ID: [id number] Author: JUAN SPANN MD Service: ? Author Type: Physician Type: Progress Notes Filed: 09/17/2024 12:52 Note Text: Spenser Putnam is a 83 year old female here for a Medicare wellness visit. Medicare Health Risk Assessment General Health Good Exercise: Minutes/Day 10 min Exercise: Days/Week 2 days Alcohol: Daily Use 4 or more times a week Alcohol: Drinks/Day 3 or 4 Alcohol: 6 or more drinks never Feel off balance Decline Concerns: Teeth/Dentures No Concerns: Sexual function No Troubled by feelings Decline Frequency: Eating healthy diet More than half the days ADLs requiring help Dressing Safety precautions in home/vehicle Yes Smoke, vape, chews tobacco No Difficulty hearing Yes Difficulty seeing Yes Current Providers Specialists: I have reviewed specialist-related care of the patient in the medical record. Current care team: Patient Care Team: Juan Spann MD as PCP - General (Family Medicine) Sujatha Saldana APRN.CNP as Systems Integration Engineer (Family Medicine) Destini Lay PA-C as Systems Integration Engineer (Family Medicine) Medical/Family history review Reviewed and updated problem list, medical/surgical/family/social history, medications, and allergies. Opioid use review Opioid Medications (last 90 days) No data to display Anxiety/Depression screening PHQ-9 Score: 11 (Moderate Depression) EVI-7 Score: 7 (Mild Anxiety) Recommendation: no further intervention at this time Cognitive screening Mini Cog Score: 3 Cognitive screening reviewed and No further action needed (score 3-5). Functional Observation Was the patient's Timed Up AND Go test unsteady or >= 12 seconds? No Advance Care Planning Surrogate decision maker and/or advance care plan documented Measurements BP 116/72 Pulse 82 Resp 12 Ht 153 cm (5' 0.24) Wt 63.5 kg (140 lb) SpO2 98% BMI 27.13 kg/m? Vision Screening: Follows with optometry/ophthalmology Assessment/Plan Medicare annual wellness visit, subsequent (Z00.00) - Counseled on healthy diet and regular exercise - Fall avoidance information provided - Personalized prevention plan provided See below Chief Complaint Patient presents with: Medicare Wellness Exam HPI Spenser Putnam is a 83 year old female who presents here today for Medicare Annual Visit. Patient with hx HTN, hyperlipidemia, RLS, insomnia, vit b12 def, OA Spenser reports a history of chronic back pain for which she had a spinal stimulator implanted in June. She notes that prior to the implantation, she was receiving injections that were ineffective. Since the implantation, she has been charging the stimulator daily, although she was advised to do so every other day. She denies any follow-up with a provider for the stimulator but mentions that she was instructed to call if any issues arise. She denies current use of pregabalin and reports no anxiety symptoms related to the stimulator. She does report experiencing diarrhea, which she attributes to the stimulator's effect on bowel function. she has been doing well with pain control with since having the stimulator. She denies recent fevers, frequent headaches, sudden changes in hearing or vision, issues with her nose or throat, lumps or swelling in her neck, wheezing, dyspnea, hemoptysis, chest pain, palpitations, or leg swelling. She also denies frequent nausea, emesis, heartburn, hematuria, dysuria, or increased urinary frequency. She does report easy bruising, which she attributes to minor trauma. She denies changes in tolerance to heat or cold, increased thirst, syncope, seizures, or tremors. She notes feeling slower and unsteady on uneven ground, which she attributes to a period of walking bent over following her surgery. Past medical history, appointments, medications, allergies reviewed. 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 Macias, Rt anterior shoulder, Gilberto III, pT1a, pNX, pM N/A Mixed hyperlipidemia 10/13/2014 Multiple thyroid nodules 09/15/2017 CT neck09/2017 7 mm nodule, US .2018 multiple small nodules repeat 09/2019 Non morbid obesity 0 (more content not included)...[facility] 09-17-2024 History of Present illness Narrative* Juan Spann MD - 09/17/2024 8:30 AM EDT Images from the original note were not included. Spenser Putnam is a 83 year old female here for a Medicare wellness visit. Medicare Health Risk Assessment General Health Good Exercise: Minutes/Day 10 min Exercise: Days/Week 2 days Alcohol: Daily Use 4 or more times a week Alcohol: Drinks/Day 3 or 4 Alcohol: 6 or more drinks never Feel off balance Decline Concerns: Teeth/Dentures No Concerns: Sexual function No Troubled by feelings Decline Frequency: Eating healthy diet More than half the days ADLs requiring help Dressing Safety precautions in home/vehicle Yes Smoke, vape, chews tobacco No Difficulty hearing Yes Difficulty seeing Yes Current Providers Specialists: I have reviewed specialist-related care of the patient in the medical record. Current care team: Patient Care Team: Juan Spann MD as PCP - General (Family Medicine) Sujatha Saldana APRN.[employer] as Systems Integration Engineer (Family Medicine) Destini Lay PA-C as Systems Integration Engineer (Family Medicine) Medical/Family history review Reviewed and updated problem list, medical/surgical/family/social history, medications, and allergies. Opioid use review Opioid Medications (last 90 days) No data to display Anxiety/Depression screening PHQ-9 Score: 11 (Moderate Depression) EVI-7 Score: 7 (Mild Anxiety) Recommendation: no further intervention at this time Cognitive screening Mini Cog Score: 3 Cognitive screening reviewed and No further action needed (score 3-5). Functional Observation Was the patient's Timed Up & Go test unsteady or >= 12 seconds? No Advance Care Planning Surrogate decision maker and/or advance care plan documented Measurements BP 116/72 Pulse 82 Resp 12 Ht 153 cm (5' 0.24) Wt 63.5 kg (140 lb) SpO2 98% BMI 27.13 kg/m Vision Screening: Follows with optometry/ophthalmology Assessment/Plan Medicare annual wellness visit, subsequent (Z00.00) - Counseled on healthy diet and regular exercise - Fall avoidance information provided - Personalized prevention plan provided See below Chief Complaint Patient presents with: Medicare Wellness Exam HPI Spenser Putnam is a 83 year old female who presents here today for Medicare Annual Visit. Patient with hx HTN, hyperlipidemia, RLS, insomnia, vit b12 def, OA Spenser reports a history of chronic back pain for which she had a spinal stimulator implanted in June. She notes that prior to the implantation, she was receiving injections that were ineffective. Since the implantation, she has been charging the stimulator daily, although she was advised to do so every other day. She denies any follow-up with a provider for the stimulator but mentions that she was instructed to call if any issues arise. She denies current use of pregabalin and reports no anxiety symptoms related to the stimulator. She does report experiencing diarrhea, which she attributes tothe stimulator's effect on bowel function. she has been doing well with pain control with since having the stimulator. She denies recent fevers, frequent headaches, sudden changes in hearing or vision, issues with her nose or throat, lumps or swelling in her neck, wheezing, dyspnea, hemoptysis, chest pain, palpitations, or leg swelling. She also denies frequent nausea, emesis, heartburn, hematuria, dysuria, or increased urinary frequency. She does report easy bruising, which she attributes to minor trauma. She denies changes in tolerance to heat or cold, increased thirst, syncope, seizures, or tremors. She notes feeling slower and unsteady on uneven ground, which she attributes to a period of walking bent over following her surgery. Past medical history, appointments, medications, allergies reviewed. 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 Macias, Rt anterior shoulder, Gilberto III, pT1a, pNX, pM N/A Mixed hyperlipidemia 10/13/2014 Multiple thyroid nodules 09/15/2017 CT neck09/2017 7 mm nodule, US .2018 multiple small nodules repeat 09/2019 Non morbid obesity 03/29/2016 Osteopenia, senile 07/02/2005 SEE DEXA 07/15 Other chronic dermatitis due to solar radiation 03/27/2006 Other psoriasis 04/16/2013 Other seborrheic keratosis 06/23/2006 Personal history of other malignant neoplasm of skin 03/22/2013 Raynaud's phenomenon without gangrene 06/07/2020 suspected Restless leg syndrome Sensorineural hearing loss, asymmetrical 10/08/2017 Solar lentigo 03/22/2013 Spinal stenosis of lumbar region 06/17/2023 Spinal stenosis, lumbar region, without neurogenic claudication 07/25/2023 Spondylolisthesis at L5-S1 level 10/20/2012 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 09/15/2012 Vertigo 12/03/2021 MRI normal and patient declined further eval as of 12/03/21 Vitamin B12 deficiency 11/09/2023 Vitamin D deficiency 08/24/2016 Xerosis cutis 03/22/2013 Previous Surgical History PAST SURGICAL HISTORY Procedure Laterality Date ABDOMINAL SURGERY HX BACK SURGERY HX 01/23/2021 lateral lumbar interbody fusion L3-4 CHOLECYSTECTOMY age 52 +/- laparoscopic cholecystectomy COLONOSCOPY 04/29/2013 Dr. Patton, repeat 5 yrs COLONOSCOPY FLX DX W/COLLJ SPEC WHEN PFRMD 07/09/2006 COLONOSCOPY FLX DX W/COLLJ SPEC WHEN PFRMD 04/29/2013 internal hemorrhoids, q5y for FHx COLONOSCOPY, GI 05/02/2000 FHx, repeat q5y DILATION & CURETTAGE DX&/THER NONOBSTETRIC Dilation & curettage EYE SURGERY HX PAST SURGICAL HISTORY OF 12/2011 squamous cell CA rt hand.left LE PAST SURGICAL HISTORY OF 04/2012 rt CTR-- endoscopic PAST SURGICAL HISTORY OF 2012 lumbar surgery- fusion PAST SURGICAL HISTORY OF 2013 excision melanoma right shoulder PAST SURGICAL HISTORY OF Right 2017 bunionectoy S SPINAL CORD STIM/IMPLANTN 06/2024 lumbar TONSILLECTOMY HX TONSILLECTOMY PRIMARY/SECONDARY <AGE 12 childhood Tonsillectomy Family History FAMILY HISTORY Problem Relation Age of Onset Colon Cancer Mother ~70 Hypertension Mother Thyroid Mother Colon Cancer Father ~70 Hypertension Father Stroke Father Heart Father Hx of CHF Coronary Artery Disease Maternal Grandmother Hx of HI Diabetes Daughter Type I Patient Allergies ALLERGIES Allergen Reactions Sulfa (Sulfonamide * Swelling, Anaphylaxis Tongue/ throat swelled Phenergan Plain Vomiting Vomiting Hydrocodone-Acetami* GI Upset NAUSEA Procardia [Nifedipi* Swelling legs Current Medications Current Outpatient Medications on File Prior to Visit Medication Sig nortriptyline (PAMELOR) 75 mg capsule Take 1 capsule by mouth daily at bedtime. lisinopril (ZESTRIL) 10 mg tablet Take 1 tablet by mouth once daily. spironolactone (ALDACTONE) 50 mg tablet Take 1 tablet by mouth once daily. rOPINIRole (REQUIP) 4 mg tablet Take 1 tablet by mouth daily at bedtime. pravastatin (PRAVACHOL) 20 mg tablet Take 1 tablet by mouth daily at bedtime. Magnesium 250 mg tab Take 1 tablet by mouth once daily. cholecalciferol, vitamin D3, (VITAMIN D3 ORAL) Take by mouth. aspirin, enteric coated (ADULT LOW DOSE ASPIRIN) 81 mg EC tablet Take 1 tablet by mouth once daily. calcium carbonate(CALTRATE 600 600 MG (1,500 MG) TAB) pregabalin (LYRICA) 50 mg capsule Take one pill twice daily No current facility-administered medications on file prior to visit. Social History Social History Tobacco Use Smoking status: Never Smokeless tobacco: Never Vaping Use Vaping status: Never Used Substance Use Topics Alcohol use: Yes Alcohol/week: 3.9 standard drinks of alcohol Types: 3 Mixed Drinks per week Comment: 3-4/week Drug use: No Review of Symptoms REVIEW OF SYSTEMS GENERAL: No weight loss, malaise or fevers HEENT: Negative for frequent or significant headaches, No changes in hearing or vision, no nose bleeds or other nasal problems NECK: Negative for lumps, goiter, pain and significant neck swelling RESPIRATORY: Negative for cough, hemoptysis, wheezing, COPD, dyspnea or shortness of breath CARDIOVASCULAR: Negative for chest pain, leg swelling, hypertension, CHF or palpitations GI: No nausea, vomiting, or diarrhea and No heartburn or reflux symptoms. No blood : No history of dysuria, frequency or blood MUSCULOSKELETAL: Negative for new or changes in her typical joint pain or swelling, back pain or muscle pain. Low back better since having stimulator placed. SKIN: follows with DERM every 6 months. PSYCH: Negative for sleep disturbance, mood disorder and recent psychosocial stressors HEMATOLOGY/LYMPHOLOGY: Negative for prolonged bleeding, bruising easily or swollen nodes ENDOCRINE: Negative for cold or heat intolerance, polyuria, polydipsia and goiter NEURO: No history of headaches, syncope, paralysis, seizures or tremors SEE HPI EXAM: BP 116/72 Pulse 82 Resp 12 Ht 153 cm (5' 0.24) Wt 63.5 kg (140 lb) SpO2 98% BMI 27.13 kg/m Last 5 Encounter Wt Readings: Date: Wt: 09/17/2024 63.5 kg (140 lb) 06/02/2024 62.6 kg (138 lb) 03/19/2024 64.4 kg (142 lb) 12/17/2023 66.2 kg (146 lb) 11/28/2023 64.4 kg (142 lb) General Appearance: Well appearing, alert, in no acute distress, well-hydrated, well nourished.. Head: Normocephalic, no masses, lesions, tenderness or abnormalities. Eyes: Anicteric sclera. Pupils are equally round and reactive to light. Extraocular movements are intact. . Ears: External ears, TM's normal, canals clear. Nose/Sinuses: Nares normal, septum midline, mucosa normal, no drainage or sinus tenderness. Oropharynx: Lips, mucosa, and tongue normal, teeth and gums normal, oropharynx normal. Neck: Supple, no adenopathy; thyroid symmetric, normal size, has bilateral bruits (suspect referredform Aortic regurge). Lungs: Lungs clear to auscultation. No wheezing, rhonchi, rales.. Heart: RRR without gallop, or rubs. No ectopy. Abdomen: 2/6 ELI loudest at the RSBNormal abdominal exam, Abdomen soft, non- tender. Bowel sounds normal. No masses, organomegaly. Extremities: No deformities, edema, skin discoloration, Good capillary refill. . Musculoskeletal: Muscular strength intact, No joint swelling, deformity, or tenderness. Peripheral Pulses: Normal. Neurologic: Gait normal. Reflexes normal and symmetric. Sensation to light touch and crainal nerves2-12 intact.. Health Maintenance List Medicare Annual Wellness Visit due on 09/16/2024 DTaP,Tdap,Td Vaccine(2 - Tdap) due on 09/17/2025 Influenza Vaccine(1) due on 11/08/2024 Depression Screening due on 09/17/2025 Anxiety Screening due on 09/17/2025 Diabetes Screening due on 06/19/2027 Bone Density Screening Completed RSV Vaccine Completed Shingrix Vaccine Completed Covid-19 Vaccine Completed Pneumococcal Vaccine: 50+ Completed Colorectal Cancer Screening Discontinued Advance Directive Discussion Discontinued Data reviewed Imaging - (2020) Echocardiogram: Normal ventricular contraction, slight delayed relaxation, trace valvular regurgitation, and no aortic valve stenosis. - (2012) Ultrasound of the heart: Valvular regurgitation (leaky heart valves) identified, associated with heart murmur. Assessment and Plan 1. Medicare annual wellness visit, subsequent (Z00.00) Comprehensive evaluation performed. - Scheduled follow-up in 6 months with [facility]. - pt to work on weight loss. 2. Essential hypertension with goal blood pressure less than 140/90 (I10) Blood pressure within target range. - cont current Tx. - check CMP, Lipid, UA 3. Mixed hyperlipidemia (E78.2) - Cont current Tx. - check CMP, Lipid, UA 4. Multiple thyroid nodules (E04.2) Requires monitoring. - Ordered repeat thyroid ultrasound. - check TSH 5. Bilateral leg edema (R60.0) No current swelling observed. - cont aldactone. - await CMP. 6. Anemia, chronic disease (D63.8) Clinically stable. - Ordered CBC. 7. 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 8. Restless leg syndrome (G25.81) Clinically stable. No changes. 9. Vitamin B12 deficiency (E53.8) Clinically stable. - Ordered Vitamin B12 level. 10. Vitamin D deficiency (E55.9) Clinically stable. - Ordered Vitamin D level. 11. Osteopenia, senile (M85.80) Clinically stable. - cont Vit D and Ca replacement along with weight bearing exercises. 12. Spinal stenosis of lumbar region, unspecified whether neurogenic claudication present (M48.061) Managed with spinal stimulator implanted in June; no longer on pregabalin. 13. Hypomagnesemia (E83.42) Clinically stable. - Ordered magnesium level. 14. Bruit (R09.89) Audible bruit in the neck, likely secondary to valvular heart disease. - Ordered carotid ultrasound. 15. Valvular heart disease (I38) Presence of heart murmur due to leaky valves confirmed by echocardiograms in 2012 and 2020, showingtrace regurgitation without significant aortic stenosis. - Plan to repeat echocardiogram next year. 16. Advance directive discussed -up to date in chart. 17. Screening for depression (Z13.31) No symptoms of depression reported. 18. Encounter for screening examination for other mental health and behavioral disorders (Z13.39) No symptoms of anxiety reported. 19. Encounter for immunization (Z23) Due for COVID-19 booster. - Administered COVID-19 booster. F/u 6 months routine check CBC, Lipid and LFT's prior. Juan Spann MD I spent a total of 40 minutes on the date of the service which included preparing to see the patient, [id number] patient care, completing clinical documentation, performing a medically appropriate examination, counseling and educating the patient/family/caregiver and ordering medications, tests, or procedures. Recording using [employer] software for draft documentation of the visit was discussed with the patient/authorized telemarketing representative; all questions welcomed and answered. Patient/authorized telemarketing representative agreed to proceed documented in this encounterC[facility]04-[facility] History of Present illness Narrative* Jamey Collier MD - 07/07/2024 1:00 PM EDT [facility] Neurosurgery Diagnosis Diagnoses and all orders for this visit: Postlaminectomy syndrome of lumbar region S/P insertion of spinal cord stimulator Patient Discussion/Summary Spenser has postlaminectomy syndrome. After the failure of multimodal management, she underwent a trial of spinal cord stimulation using the [employer] system. She had significant benefit. As such, she was brought to the operating room on June 24 for percutaneous insertion of a Medtronic spinal cord stimulator. Her leads were placed at mid-T7 and the top of T8. This procedure was uncomplicated and she was discharged home the same day. She has had an uneventful postoperative recovery. She describes minimal discomfort at the surgical incisions, which has now resolved. She has already realized significant improvement in her baseline pain. The [employer] telemarketing representative was present today to provide her initial programming and education. At this time, she may follow-up on as-needed basis. History of Present Illness Chief Complaint: No chief complaint on file. HPI: Spenser Putnam is a 83 y.o. female 83 year old female with chronic back pain, 06/24 s/p percutaneous Medtronic spinal cord stimulator leads and generator implant. Patient presents today for her post op visit for evaluation of wound, discuss progress since surgery and programming as needed. Incision is well healing with slight redness/irritation from clothing. She denies swelling or drainage. ROS: As noted in HPI. Previous History Medical History[1] Surgical History[2] Social History[3] Family History[4] Allergies[5] Current Outpatient Medications Medication Instructions acetaminophen (TYLENOL) 650 mg, oral, Every 6 hours PRN aspirin 81 mg, oral, Daily [id number] (Caltrate 600-D Plus Minerals) 600 mg calcium- 800 unit-50 mg [id number] mg, Daily celecoxib (CELEBREX) 200 mg, oral, Daily RT cholecalciferol (VITAMIN D3) 1,000 Units, Daily cyanocobalamin (VITAMIN B-12) 1,000 mcg, Daily RT lisinopril 20 mg, Daily magnesium, amino acid chelate, 133 mg tablet 1 tablet, 2 times daily nortriptyline (PAMELOR) 75 mg, Nightly pravastatin (PRAVACHOL) 20 mg, Daily rOPINIRole (REQUIP) 4 mg, Nightly spironolactone (ALDACTONE) 50 mg, Daily Vitals BP 147/67 (BP Location: Left arm, Patient Position: Sitting, BP Cuff Size: Adult) Pulse 76 Temp36.8 C (98.2 F) (Temporal) Resp 16 Wt 60.6 kg (133 lb 9.6 oz) SpO2 99% BMI 24.44 kg/m Physical Exam The incisions were inspected, and these were well-healed. [1] Past Medical History: Diagnosis Date Arthritis HTN (hypertension) Hyperlipidemia Insomnia OA (osteoarthritis) Postlaminectomy syndrome of lumbar region Restless leg syndrome Spinal stenosis of lumbar region Vertigo Vitamin B12 deficiency Vitamin D deficiency [2] Past Surgical History: Procedure Laterality Date CATARACT EXTRACTION CHOLECYSTECTOMY age 52 DILATION AND CURETTAGE OF UTERUS SKIN CANCER EXCISION 2013 excision melanoma right shoulder SKIN CANCER EXCISION squamous cell CA rt hand.left LE SPINE SURGERY 01/2021 lateral lumbar interbody fusion L3-4 SPINE SURGERY TONSILLECTOMY [3] Social History Tobacco Use Smoking status: Never Smokeless tobacco: Never Substance Use Topics Alcohol use: Yes Alcohol/week: 14.0 standard drinks of alcohol Types: 14 Standard drinks or equivalent per week Drug use: Defer [4] Family History Problem Relation Name Age of Onset No Known Problems Mother Heart attack Father [5] Allergies Allergen Reactions Promethazine Swelling Sulfa (Sulfonamide Antibiotics) Other Vicodin [Hydrocodone-Acetaminophen] Other kalenky [facility] Phone: 1(145) 647-899904-28-2025 Telephone encounter Note* Telephone Encounter - Kelle Joyce MA - 07/05/2024 1:11 PM EDT Prescription Refill Information The patient has been identified by name and date of : Yes Caregiver verified no other encounters exist for this prescription request: Yes Caregiver confirmed with patient/requestor that no other refills are due, in the near future, with this provider at this time: Yes The last office visit in the department: 05/2024 Does the patient have a future office visit with this provider/department: Yes Requested Prescriptions Pending Prescriptions Disp Refills nortriptyline (PAMELOR) 75 mg capsule 30 capsule 5 Sig: Take 1 capsule by mouth daily at bedtime. Kelle Joyce MA July 05, 2024 1:11 PM [facility]04-28-2025 Miscellaneous Notes* Telephone Encounter - Kelle Joyce MA - 07/05/2024 1:11 PM EDT Prescription Refill Information The patient has been identified by name and date of : Yes Caregiver verified no other encounters exist for this prescription request: Yes Caregiver confirmed with patient/requestor that no other refills are due, in the near future, with this provider at this time: Yes The last office visit in the department: 05/2024 Does the patient have a future office visit with this provider/department: Yes Requested Prescriptions Pending Prescriptions Disp Refills nortriptyline (PAMELOR) 75 mg capsule 30 capsule 5 Sig: Take 1 capsule by mouth daily at bedtime. Kelle Joyce MA July 05, 2024 1:11 PM [facility] Telephone encounter Note * Telephone Encounter - Juan Spann MD - 06/28/2024 5:09 PM EDT The following approved medication requests have been transmitted electronically. Requested Prescriptions Signed Prescriptions Disp Refills lisinopril (ZESTRIL) 10 mg tablet 90 tablet 1 Sig: Take 1 tablet by mouth once daily. Authorizing Provider: SONYA, JUAN A spironolactone (ALDACTONE) 50 mg tablet 30 tablet 5 Sig: Take 1 tablet by mouth once daily. Authorizing Provider: JUAN SPANN MD [facility]04-21-2025 Miscellaneous Notes* Telephone Encounter - Juan Spann MD - 06/28/2024 5:09 PM EDT The following approved medication requests have been transmitted electronically. Requested Prescriptions Signed Prescriptions Disp Refills lisinopril (ZESTRIL) 10 mg tablet 90 tablet 1 Sig: Take 1 tablet by mouth once daily. Authorizing Provider: JUAN SPANN spironolactone (ALDACTONE) 50 mg tablet 30 tablet 5 Sig: Take 1 tablet by mouth once daily. Authorizing Provider: JUAN SPANN MD * Telephone Encounter - Dandy Chery LPN - 06/28/2024 4:25 PM EDT Prescription Refill Information The patient has been identified by name and date of : Yes Caregiver verified no other encounters exist for this prescription request: Yes Caregiver confirmed with patient/requestor that no other refills are due, in the near future, with this provider at this time: Yes The last office visit in the department: 06/02/24 Does the patient have a future office visit with this provider/department: Yes, 09/17/24 Requested Prescriptions Pending Prescriptions Disp Refills lisinopril (ZESTRIL) 10 mg tablet 90 tablet 1 Sig: Take 1 tablet by mouth once daily. spironolactone (ALDACTONE) 50 mg tablet 30 tablet 5 Sig: Take 1 tablet by mouth once daily. Dandy Chery LPN June 28, 2024 4:25 PM [facility] Telephone encounter Note * Telephone Encounter - Dandy Chery LPN - 06/28/2024 4:25 PM EDT Prescription Refill Information The patient has been identified by name and date of : Yes Caregiver verified no other encounters exist for this prescription request: Yes Caregiver confirmed with patient/requestor that no other refills are due, in the near future, with this provider at this time: Yes The last office visit in the department: 06/02/24 Does the patient have a future office visit with this provider/department: Yes, 09/17/24 Requested Prescriptions Pending Prescriptions Disp Refills lisinopril (ZESTRIL) 10 mg tablet 90 tablet 1 Sig: Take 1 tablet by mouth once daily. spironolactone (ALDACTONE) 50 mg tablet 30 tablet 5 Sig: Take 1 tablet by mouth once daily. Dandy Chery LPN June 28, 2024 4:25 PM [facility]04-17-2025 Hospital course Narrative* Geovani Rivera MD - 06/24/2024 8:05 AM EDT Discharge Diagnosis Postlaminectomy syndrome of lumbar region Issues Requiring Follow-Up N/A Test Results Pending At Discharge Pending Labs No current pending labs. Hospital Course Patient is an 83 year old female with chronic back pain, 06/24 s/p percutaneous spinal cord stimulator leads and generator implant. Discharged home after procedure. Pertinent Physical Exam At Time of Discharge Physical Exam Awake, Ox3 Fcx4 5/5 SILT Home Medications Medication List START taking these medications acetaminophen 325 mg tablet; Commonly known as: Tylenol; Take 2 tablets (650 mg) by mouth every 6 hours if needed (postoperative pain). oxyCODONE 5 mg immediate release tablet; Commonly known as: Roxicodone; Take 1 tablet (5 mg) by mouth every 6 hours if needed (severe postoperative pain) for up to 7 days. CHANGE how you take these medications aspirin 81 mg EC tablet; Take 1 tablet (81 mg) by mouth once daily. Do not fill before July 01, 2024.; Start taking on: July 01, 2024; What changed: These instructions start on July 01, 2024. If you are unsure what to do until then, ask your doctor or other care provider. celecoxib 200 mg capsule; Commonly known as: CeleBREX; Take 1 capsule (200 mg) by mouth once daily. Do not fill before July 01, 2024.; Start taking on: July 01, 2024; What changed: These instructions start on July 01, 2024. If you are unsure what to do until then, ask your doctor or other care provider. CONTINUE taking these medications Caltrate 600-D Plus Minerals 600 mg calcium- 800 unit-50 mg tablet; Generic drug: [id number] cyanocobalamin 1,000 mcg tablet; Commonly known as: Vitamin B-12 lisinopril 20 mg tablet magnesium (amino acid chelate) 133 mg tablet nortriptyline 75 mg capsule; Commonly known as: Pamelor pravastatin 20 mg tablet; Commonly known as: Pravachol rOPINIRole 4 mg tablet; Commonly known as: Requip spironolactone 50 mg tablet; Commonly known as: Aldactone Vitamin D3 25 mcg (1,000 units) tablet; Generic drug: cholecalciferol STOP taking these medications chlorhexidine 0.12 % solution; Commonly known as: Peridex chlorhexidine 4 % external liquid; Commonly known as: Hibiclens Outpatient Follow-Up Future Appointments Date Time Provider Department Center 07/07/2024 1:00 PM Jamey Collier MD [id number] Academic Geovani Rivera MD Cosigned by Jamey Collier MD at 06/24/2024 8:59 AM EDT documented in this [facility] Work Phone: 1(460) 440-156304-17-2025 Surgery Surgical operation note* Op Note - Jamey Collier MD - 06/24/2024 8:02 AM EDT Percutaneous Thoracic Spinal Cord Stimulator Electrodes and Generator Placement ([employer]) Operative Note Date: 06/24/2024 OR Location: [facility] OR Name: Spenser Pickens Claudiajohnathan, : 1940, Age: 83 y.o., , Sex: female Diagnosis Pre-op Diagnosis * Postlaminectomy syndrome of lumbar region [M96.1] Post-op Diagnosis * Postlaminectomy syndrome of lumbar region [M96.1] Procedures Percutaneous insertion of dual thoracic epidural spinal cord stimulator electrodes Implantation of right flank IPG Surgeons * Jamey Collier - Primary Resident/Fellow/Other Instrumentation Engineering Technician: Surgeons and Role: * No surgeons found with a matching role * Staff: Scrub Person: Kayy Manager Specialty: Leesa Manager Specialty: Rashad Scrub Person: Deidre Anesthesia Staff: Anesthesiologist: Daphne Alford MD C-AA: GLADYS Anne Procedure Summary Anesthesia: General ASA: III Estimated Blood Loss: 5 mL Intra-op Medications: Administrations occurring from 0650 to 0840 on 06/24/24: Medication Name Total Dose vancomycin (Vancocin) 1,000 mg in sodium chloride 0.9 % 1,000 mL irrigation 1,000 mL ceFAZolin (Ancef) vial 1 g 2 g dexAMETHasone (Decadron) 4 mg/mL 10 mg fentaNYL (Sublimaze) injection 50 mcg/mL 25 mcg LR bolus Cannot be calculated lidocaine (Xylocaine) injection 2 % 40 mg ondansetron 2 mg/mL 4 mg propofol (Diprivan) injection 10 mg/mL 160 mg rocuronium (ZeMuron) 50 mg/5 mL injection 50 mg sugammadex (Bridion) 200 mg/2 mL injection 200 mg Anesthesia Record Intraprocedure I/O Totals Intake LR bolus 700.00 mL Autologous Blood 10 mL Total Intake 710 mL Specimen: No specimens collected Drains and/or Catheters: * None in log * Tourniquet Times: Implants: Implants Type Name Action Serial No. Spinal Hardware KIT, LEAD SPINE STIM SURE-SCAN VECTRIS COMPACT - [id number] Implanted Spinal Hardware KIT, LEAD SPINE STIM SURE-SCAN VECTRIS COMPACT - [id number] Implanted Medtronic Inceptiv Generator Implanted [id number] Findings: Leads placed in mid-T7 and top of T8 Indications: Spenser Putnam is an 83 y.o. female who is having surgery for Postlaminectomy syndrome of lumbar region [M96.1]. The patient was seen in the preoperative area. The risks, benefits, complications, treatment options, non-operative alternatives, expected recovery and outcomes were discussed with the patient. The possibilities of reaction to medication, pulmonary aspiration, injury to surrounding structures, bleeding, recurrent infection, the need for additional procedures, failure to diagnose a condition, and creating a complication requiring transfusion or operation were discussed with the patient. The patient concurred with the proposed plan, giving informed consent. The site of surgery was properly noted/marked if necessary per policy. The patient has been actively warmed in preoperative area. Preopera tive antibiotics have been ordered and given within 1 hours of incision. Venous thrombosis prophylaxis have been ordered including bilateral sequential compression devices Procedure Details: Ms. Putnam was seen in the preoperative holding area where the consent was confirmed. She was transferred to the operating room where the Anesthetic team proceeded to insert the appropriate lines, followed by administration of a general anesthetic and endotracheal intubation. The patient was then placed prone on the padded frame with all pressure points padded appropriately. The surgical site was cleaned, prepped, and draped in the usual sterile fashion. Preoperative antibiotics were administered. A perioperative time-out was undertaken, and the identity of the patient and nature of the operation were confirmed. The incisions were infiltrated with local anesthetic and epinephrine. We first made an incision in the right flank with a #10 blade followed by monopolar cautery until an adequate pocket size was made. Under fluoroscopy, we localized the T12 level. A paramedian incision was made in the lumbar spine with a #10 blade and monopolar cautery down to fascia. We then advanced a Tuohy needle under fluoroscopic guidance using a loss of resistance technique to the T12-L1 interspace. No CSF egress was encountered. The spinal cord stimulator electrode was then passed to the middle of T7. Following this, weinserted a second needle in the same interspace, and drove another lead to the upper third of T8 marilynn slightly staggered fashion. Lateral fluoroscopy confirmed dorsal positioning. The fascia was incised with a #10 blade and 2-0 silk sutures placed. The needles and inner stylettes were then removed using negative pressure and under fluoroscopic guidance to ensure no migration. The fascial anchors were inserted and secured with two 2-0 silk sutures each. A tunneler was then passed between the two incisions and the electrodes fed to the pocket. These distal electrodes were inserted into the IPG device. Impedances were found to be appropriate. The set screws were definitively tightened. The redundant wire was placed behind the IPG. The remainder of the wire was left as a strain relief loop in the lumbar incision. Both incisions were then thoroughly irrigated with Irrisept and saline. Both incisions were closed in layers with 2-0 Polysorb sutures, followed by 4-0 Monocryl sutures. Occlusive dressings were applied. The patient was then returned to a supine position and extubated. She was transferred to the PACU in stable condition. Complications: None; patient tolerated the procedure well. Disposition: PACU - hemodynamically stable. Condition: stable Attending Attestation: I was present and scrubbed for the entire procedure. Jamey Collier [facility] Work Phone: [phone]) 510-114704-17-2025 Miscellaneous Notes* Op Note - Jamey Collier MD - 06/24/2024 8:02 AM EDT Percutaneous Thoracic Spinal Cord Stimulator Electrodes and Generator Placement ([employer]) Operative Note Date: 06/24/2024 OR Location: [facility] OR Name: Spenser Putnam, : 1940, Age: 83 y.o., , Sex: female Diagnosis Pre-op Diagnosis * Postlaminectomy syndrome of lumbar region [M96.1] Post-op Diagnosis * Postlaminectomy syndrome of lumbar region [M96.1] Procedures Percutaneous insertion of dual thoracic epidural spinal cord stimulator electrodes Implantation of right flank IPG Surgeons * Jamey Collier - Primary Resident/Fellow/Other Instrumentation Engineering Technician: Surgeons and Role: * No surgeons found with a matching role * Staff: Scrub Person: Kayy Manager Specialty: Leesa Manager Specialty: Rashad Scrub Person: Deidre Anesthesia Staff: Anesthesiologist: MD Hi Haque-AA: GLADYS Anne Procedure Summary Anesthesia: General ASA: III Estimated Blood Loss: 5 mL Intra-op Medications: Administrations occurring from 0650 to 0840 on 06/24/24: Medication Name Total Dose vancomycin (Vancocin) 1,000 mg in sodium chloride 0.9 % 1,000 mL irrigation 1,000 mL ceFAZolin (Ancef) vial 1 g 2 g dexAMETHasone (Decadron) 4 mg/mL 10 mg fentaNYL (Sublimaze) injection 50 mcg/mL 25 mcg LR bolus Cannot be calculated lidocaine (Xylocaine) injection 2 % 40 mg ondansetron 2 mg/mL 4 mg propofol (Diprivan) injection 10 mg/mL 160 mg rocuronium (ZeMuron) 50 mg/5 mL injection 50 mg sugammadex (Bridion) 200 mg/2 mL injection 200 mg Anesthesia Record Intraprocedure I/O Totals Intake LR bolus 700.00 mL Autologous Blood 10 mL Total Intake 710 mL Specimen: No specimens collected Drains and/or Catheters: * None in log * Tourniquet Times: Implants: Implants Type Name Action Serial No. Spinal Hardware KIT, LEAD SPINE STIM SURE-SCAN VECTRIS COMPACT - [id number] Implanted Spinal Hardware KIT, LEAD SPINE STIM SURE-SCAN VECTRIS COMPACT - [id number] Implanted Medtronic Inceptiv Generator Implanted [id number] Findings: Leads placed in mid-T7 and top of T8 Indications: Spenser Putnam is an 83 y.o. female who is having surgery for Postlaminectomy syndrome of lumbar region [M96.1]. The patient was seen in the preoperative area. The risks, benefits, complications, treatment options, non-operative alternatives, expected recovery and outcomes were discussed with the patient. The possibilities of reaction to medication, pulmonary aspiration, injury to surrounding structures, bleeding, recurrent infection, the need for additional procedures, failure to diagnose a condition, and creating a complication requiring transfusion or operation were discussed with the patient. The patient concurred with the proposed plan, giving informed consent. The site of surgery was properly noted/marked if necessary per policy. The patient has been actively warmed in preoperative area. Preopera tive antibiotics have been ordered and given within 1 hours of incision. Venous thrombosis prophylaxis have been ordered including bilateral sequential compression devices Procedure Details: Ms. Putnam was seen in the preoperative holding area where the consent was confirmed. She was transferred to the operating room where the Anesthetic team proceeded to insert the appropriate lines, followed by administration of a general anesthetic and endotracheal intubation. The patient was then placed prone on the padded frame with all pressure points padded appropriately. The surgical site was cleaned, prepped, and draped in the usual sterile fashion. Preoperative antibiotics were administered. A perioperative time-out was undertaken, and the identity of the patient and nature of the operation were confirmed. The incisions were infiltrated with local anesthetic and epinephrine. We first made an incision in the right flank with a #10 blade followed by monopolar cautery until an adequate pocket size was made. Under fluoroscopy, we localized the T12 level. A paramedian incision was made in the lumbar spine with a #10 blade and monopolar cautery down to fascia. We then advanced a Tuohy needle under fluoroscopic guidance using a loss of resistance technique to the T12-L1 interspace. No CSF egress was encountered. The spinal cord stimulator electrode was then passed to the middle of T7. Following this, weinserted a second needle in the same interspace, and drove another lead to the upper third of T8 marilynn slightly staggered fashion. Lateral fluoroscopy confirmed dorsal positioning. The fascia was incised with a #10 blade and 2-0 silk sutures placed. The needles and inner stylettes were then removed using negative pressure and under fluoroscopic guidance to ensure no migration. The fascial anchors were inserted and secured with two 2-0 silk sutures each. A tunneler was then passed between the two incisions and the electrodes fed to the pocket. These distal electrodes were inserted into the IPG device. Impedances were found to be appropriate. The set screws were definitively tightened. The redundant wire was placed behind the IPG. The remainder of the wire was left as a strain relief loop in the lumbar incision. Both incisions were then thoroughly irrigated with Irrisept and saline. Both incisions were closed in layers with 2-0 Polysorb sutures, followed by 4-0 Monocryl sutures. Occlusive dressings were applied. The patient was then returned to a supine position and extubated. She was transferred to the PACU in stable condition. Complications: None; patient tolerated the procedure well. Disposition: PACU - hemodynamically stable. Condition: stable Attending Attestation: I was present and scrubbed for the entire procedure. Jamey Collier documented in this [facility] Work Phone: [phone]) 455-152204-17-2025 Attending History and physical note* Ramy Patel MD - 06/24/2024 6:09 AM EDT H&P reviewed. The patient was examined and there are no changes to the H&P. Cosigned by Jamey Collier MD at 06/24/2024 6:31 AM EDT Source Note - Naomi Jamil PA-C - 06/16/2024 3:15 PM EDT Images from the original note were not included. CPM/PAT Evaluation Name: Spenser Putnam (Spenser Putnam) /Age: 912/07/1940/83 y.o. Visit Type: In-Person Chief Complaint: perioperative evaluation HPI HPI: 83 y/o female scheduled for Percutaneous Thoracic Spinal Cord Stimulator Electrodes and Generator Placement ([employer]) on 06/24/2024 secondary to Postlaminectomy syndrome of lumbar region with Dr. Jamey Collier who referred to CPM. Presents to CPM today for perioperative risk stratification and optimization. PMHX includes insomnia, vertigo, HTN, HLD, Vitamin B12 deficiency, Vitamin D deficiency, Melanoma, Postlaminectomy syndrome of lumbar region, spinal stenosis of lumbar region, restless leg syndrome, OA, . PCP: Destini Lay PA-C Specialists: [facility] - Aj Graham APRN.[employer]AF[employer]CH[employer] Cardiology - Juan Spann Past Medical History: Diagnosis Date Arthritis HTN (hypertension) Hyperlipidemia Insomnia OA (osteoarthritis) Postlaminectomy syndrome of lumbar region Restless leg syndrome Spinal stenosis of lumbar region Vertigo Vitamin B12 deficiency Vitamin D deficiency Past Surgical History: Procedure Laterality Date CATARACT EXTRACTION CHOLECYSTECTOMY age 52 DILATION AND CURETTAGE OF UTERUS SKIN CANCER EXCISION 2014 excision melanoma right shoulder SKIN CANCER EXCISION squamous cell CA rt hand.left LE SPINE SURGERY 01/2021 lateral lumbar interbody fusion L3-4 SPINE SURGERY TONSILLECTOMY Patient Sexual activity questions deferred to the physician. Family History Problem Relation Name Age of Onset No Known Problems Mother Heart attack Father Allergies Allergen Reactions Promethazine Swelling Sulfa (Sulfonamide Antibiotics) Other Vicodin [Hydrocodone-Acetaminophen] Other shaky Prior to Admission medications Medication Sig Start Date End Date Taking? Authorizing Provider aspirin 500 mg buffered tablet Take 600 mg by mouth every 6 hours if needed for mild pain (1 - 3). Historical Provider, aspirin 81 mg EC tablet Take 1 tablet (81 mg) by mouth once daily. Historical Provider, cholecalciferol (Vitamin D3) 25 mcg (1000 units) tablet Take 1 tablet (1,000 Units) by mouth once daily. Historical Provider, levonorgestreL-ethinyl estrad (Tyblume) 0.1 mg- 20 mcg chewable tablet Chew 1 tablet once daily. Historical Provider, lisinopril 20 mg tablet Take 1 tablet (20 mg) by mouth once daily. Historical Provider, magnesium, amino acid chelate, 133 mg tablet Take 1 tablet (133 mg) by mouth 2 times a day. Historical Provider, nortriptyline (Pamelor) 75 mg capsule Take 1 capsule (75 mg) by mouth once daily at bedtime. Historical Provider, potassium chloride CR 20 mEq ER tablet Take 1 tablet (20 mEq) by mouth once daily. Do not crush or chew. Historical Provider, pravastatin (Pravachol) 20 mg tablet Take 1 tablet (20 mg) by mouth once daily. Historical Provider, rOPINIRole (Requip) 4 mg tablet Take 1 tablet (4 mg) by mouth once daily at bedtime. Historical Provider, PAT ROS: Constitutional: no fever no chills no unexpected weight change Neuro/Psych: no numbness no weakness no light-headedness no tremors no confusion not nervous/anxious no self-injury no suicidal ideation Eyes: no discharge no vision loss no diplopia no visual disturbance use of corrective lenses Ears: no ear pain no hearing loss no vertigo no tinnitus no hearing aides Nose: no nasal discharge no sinus congestion no epistaxis Mouth: no dental issues no mouth pain no oral bleeding no mouth lesions Throat: no throat pain no dysphagia no voice change Neck: no neck pain neck swelling no neck stiffness no neck masses Cardio: no chest pain no palpitations no peripheral edema no dyspnea no BEE no paroxysmal nocturnal dyspnea Respiratory: no cough no wheezing no hemoptysis no shortness of breath Endocrine: no cold intolerance no heat intolerance no polydipsia GI: no abdominal distention no abdominal pain no constipation no diarrhea no nausea no vomiting no blood in stool : no difficulty urinating no dysuria no oliguria no polyuria Musculoskeletal: no arthralgias no myalgias no decreased ROM swelling (bilateral ankle swelling, transient and chronic in nature.) Hematologic: does not bruise/bleed easily no excessive bleeding no history of blood transfusion no blood clots Skin: no skin changes no sores/wound no rash Physical Exam Vitals reviewed. Physical exam within normal limits. Constitutional: General: She is not in acute distress. Appearance: Normal appearance. She is normal weight. She is not ill-appearing, toxic-appearing or diaphoretic. Comments: Pleasant and cooperative, no sign acute distress HENT: Head: Normocephalic. Nose: Nose normal. No congestion or rhinorrhea. Mouth/Throat: Mouth: Mucous membranes are moist. Pharynx: Oropharynx is clear. No oropharyngeal exudate or posterior oropharyngeal erythema. Eyes: General: No scleral icterus. Right eye: No discharge. Left eye: No discharge. Conjunctiva/sclera: Conjunctivae normal. Neck: Vascular: No carotid bruit. Cardiovascular: Rate and Rhythm: Normal rate and regular rhythm. Pulses: Normal pulses. Heart sounds: Murmur (systolic, loudest at aortic position) heard. No friction rub. No gallop. Pulmonary: Effort: Pulmonary effort is normal. No respiratory distress. Breath sounds: Normal breath sounds. No stridor. No wheezing, rhonchi or rales. Chest: Chest wall: No tenderness. Musculoskeletal: General: Swelling (minimal bilateral ankle swelling) present. No tenderness. Normal range of motion. Cervical back: Normal range of motion and neck supple. No rigidity or tenderness. Skin: General: Skin is warm and dry. Neurological: General: No focal deficit present. Mental Status: She is alert. Motor: No weakness. Psychiatric: Mood and Affect: Mood normal. Behavior: Behavior normal. Thought Content: Thought content normal. Judgment: Judgment normal. PAT AIRWAY: Airway: Mallampati:: I TM distance:: >3 FB Neck ROM:: Full Visit Vitals BP 122/75 Pulse 81 Temp 36.7 C (98 F) (Temporal) Ht 1.575 m (5' 2) Wt 64.2 kg (141 lb 9.6 oz) SpO2 100% BMI 25.90 kg/m Smoking Status Never BSA 1.68 m DASI Risk Score Flowsheet Row Pre-Admission Testing from 06/16/2024 in [facility] Can you take care of yourself (eat, dress, bathe, or use toilet)? 2.75 filed at 06/16/2024 1525 Can you walk indoors, such as around your house? 1.75 filed at 06/16/2024 1525 Can you walk a block or two on level ground? 2.75 filed at 06/16/2024 1525 Can you climb a flight of stairs or walk up a hill? 5.5 filed at 06/16/2024 1525 Can you run a short distance? 0 filed at 06/16/2024 1525 Can you do light work around the house like dusting or washing dishes? 2.7 filed at 06/16/2024 1525 Can you do moderate work around the house like vacuuming, sweeping floors or carrying groceries? 3.5 filed at 06/16/2024 1525 Can you do heavy work around the house like scrubbing floors or lifting and moving heavy furniture?0 filed at 06/16/2024 1525 Can you do yard work like raking leaves, weeding or pushing a mower? 0 filed at 06/16/2024 1525 Can you have sexual relations? 0 filed at 06/16/2024 1525 Can you participate in moderate recreational activities like golf, bowling, dancing, doubles tennisor throwing a baseball or football? 0 filed at 06/16/2024 1525 Can you participate in strenous sports like swimming, singles tennis, football, basketball, or skiing? 0 filed at 06/16/2024 1525 DASI SCORE 18.95 filed at 06/16/2024 152 METS Score (Will be calculated only when all the questions are answered) 5.1 filed at 06/16/2024 1525 Caprini DVT Assessment Flowsheet Row Pre-Admission Testing from 06/16/2024 in [facility] DVT Score (IF A SCORE IS NOT CALCULATING, MUST SELECT A BMI TO COMPLETE) 10 filed at 06/16/2024 1611 Medical Factors Present cancer, chemotherapy, or previous malignancy, Swollen legs filed at 06/16/2024 1611 Surgical Factors Major surgery planned, lasting 2-3 hours filed at 06/16/2024 1611 BMI (BMI MUST BE CHOSEN) 30 or less filed at 06/16/2024 1611 Modified Frailty Index Flowsheet Row Pre-Admission Testing from 06/16/2024 in [facility] Non-independent functional status (problems with dressing, bathing, personal grooming, or cooking) 0 filed at 06/16/2024 1613 History of diabetes mellitus 0 filed at 06/16/2024 1613 History of COPD 0 filed at 06/16/2024 1613 History of CHF No filed at 06/16/2024 1613 History of HI 0 filed at 06/16/2024 1613 History of Percutaneous Coronary Intervention, Cardiac Surgery, or Angina No filed at 06/16/2024 1613 Hypertension requiring the use of medication 0.0909 filed at 06/16/2024 1613 Peripheral vascular disease 0 filed at 06/16/2024 1613 Impaired sensorium (cognitive impairement or loss, clouding, or delirium) 0 filed at 06/16/2024 1613 TIA or CVA withouy residual deficit 0 filed at 06/16/2024 1613 Cerebrovascular accident with deficit 0 filed at 06/16/2024 1613 Modified Frailty Index Calculator .0909 filed at 06/16/2024 1613 [id number] Stroke Risk Points Current as of just now N/A 0 to 9 Points: Last Change: N/A The [id number] risk score (Lip GH, et al. 2009. 2010 [employer]) quantifies the risk of stroke for a patient with atrial fibrillation. For patients without atrial fibrillation or under the age of 18 this score appears as N/A. Higher score values generally indicate higherrisk of stroke. This score is not applicable to this patient. Components are not calculated. Revised Cardiac Risk Index Flowsheet Row Pre-Admission Testing from 06/16/2024 in [facility] High-Risk Surgery (Intraperitoneal, Intrathoracic,Suprainguinal vascular) 0 filed at 06/16/2024 1612 History of ischemic heart disease (History of HI, History of positive exercuse test, Current chest paint considered due to myocardial ischemia, Use of nitrate therapy, ECG with pathological Q Waves) 0 filed at 06/16/2024 1612 History of congestive heart failure (pulmonary edemia, bilateral rales or S3 gallop, Paroxysmal nocturnal dyspnea, CXR showing pulmonary vascular redistribution) 0 filed at 06/16/2024 1612 History of cerebrovascular disease (Prior TIA or stroke) 0 filed at 06/16/2024 1612 Pre-operative insulin treatment 0 filed at 06/16/2024 1612 Pre-operative creatinine>2 mg/dl 0 filed at 06/16/2024 1612 Revised Cardiac Risk Calculator 0 filed at 06/16/2024 1612 Apfel Simplified Score Flowsheet Row Pre-Admission Testing from 06/16/2024 in [facility] Smoking status 1 filed at 06/16/2024 1611 History of motion sickness or PONV 0 filed at 06/16/2024 1611 Use of postoperative opioids 1 filed at 06/16/2024 1611 Gender - Female 1=Yes filed at 06/16/2024 1611 Apfel Simplified Score Calculator 3 filed at 06/16/2024 1611 Risk Analysis Index Results This Encounter No data found in the last 10 encounters. Stop Bang Score Flowsheet Row Pre-Admission Testing from 06/16/2024 in [facility] Do you snore loudly? 1 filed at 06/16/2024 1526 Do you often feel tired or fatigued after your sleep? 1 filed at 06/16/2024 1526 Has anyone ever observed you stop breathing in your sleep? 0 filed at 06/16/2024 1526 Do you have or are you being treated for high blood pressure? 1 filed at 06/16/2024 1526 Recent BMI (Calculated) 0 filed at 06/16/2024 1526 Age older than 50 years old? 1=Yes filed at 06/16/2024 1526 Is your neck circumference greater than 17 inches (Male) or 16 inches (Female)? 0 filed at 06/16/2024 1526 Gender - Male 0=No filed at 06/16/2024 1526 Prodigy: High Risk Total Score: 16 Prodigy Age Score ARISCAT Score for Postoperative Pulmonary Complications Flowsheet Row Pre-Admission Testing from 06/16/2024 in [facility] Age Calculated Score 16 filed at 06/16/2024 1613 Preoperative SpO2 0 filed at 06/16/2024 1613 Respiratory infection in the last month Either upper or lower (i.e., URI, bronchitis, pneumonia), with fever and antibiotic treatment 0 filed at 06/16/2024 1613 Preoperative anemia (Hgb less than 10 g/dl) 0 filed at 06/16/2024 1613 Surgical incision 0 filed at 06/16/2024 1613 Duration of surgery 16 filed at 06/16/2024 1613 Emergency Procedure 0 filed at 06/16/2024 1613 ARISCAT Total Score 32 filed at 06/16/2024 1613 Emelia Perioperative Risk for Myocardial Infarction or Cardiac Arrest (DEVONTE) No data to display Assessment and Plan: Anesthesia/Airway: No anesthesia complications Neuro: #insomnia, vertigo, - Follows with PCP , no further need for perioperative intervention. Patient is at an increased risk for post operative delirium secondary to age >/= 65 and type andduration of surgery. Preoperative brain exercise educational handout provided to patient. The patient is at an increased risk for perioperative stroke secondary to increased age, HTN, HLD, female sex , general anesthesia, and hypercoagulable state. HEENT/Airway: No HEENT diagnosis or significant findings on chart review or clinical presentation and evaluation.No further preoperative testing/intervention indicated at this time. Cardiovascular: #new Systolic murmur - noted on physical exam, patient reports she has never been told she has a murmur before. Patient also notes bilateral leg swelling, which has been transient in nature for month. Due to this new murmur, echo ordered for further investigation. See below. #HTN, HLD, - medicated with aspirin (last dose 06/16), lisinopril (last dose ), nortriptyline (continue), potassium (continue), pravastatin (continue), spironolactone (continue), and follows with Cardiology. BP today is 122/75 and denies cardiovascular symptoms. Physical exam is benign. METS is >4 and scheduled for non-cardiac surgery. No additional preoperative testing is currently indicated. Scanned into media, per Dr Mabel Graham MD, patient will need to hold 81 make aspirin 7 days prior to surgery this patient has risk of perioperative cardiac complications with the proposed procedure is low Addendum 06/18/24 - echo completed 06/17, pending results. Addendum 06/22/24 - echo completed 06/17, still no results at this time. Called Echo read and notified Dr Jude Barnett is to read echo, secure chatted. Echo read and no acute findings. METS are 5.1 RCRI 0 which is 3.9% 30 day risk of MACE (risk for cardiac , nonfatal myocardial infarction, and nonfactal cardiac arrest DEVONTE score which indicates a 0.1 % risk of intraoperative or 30-day postoperative MACE EKG 06/16/24 Normal sinus rhythm Low voltage QRS Borderline ECG Echo 06/17/24 CONCLUSIONS: 1. The left ventricular systolic function is normal, with a visually estimated ejection fraction of60-65%. 2. Spectral Doppler shows a Grade I (impaired relaxation pattern) of left ventricular diastolic filling with normal left atrial filling pressure. 3. There is normal right ventricular global systolic function. 4. There is moderate mitral annular calcification. 5. Slightly elevated right ventricular systolic pressure. 6. Aortic valve sclerosis. Holter monitor 11/20-12/04/23 Echo 12/14/2020 The left ventricle is small. Left ventricular systolic function is normal. EF = 65 5% (2D 4-ch.) Grade I left ventricular diastolic dysfunction. - The right ventricle is normal in size. Right ventricular systolic function is normal. - Mild aortic sclerosis with Pk/Mn gradients of 17/9 mmHg. - The patient has not had a prior CC echocardiographic exam for comparison. Pulmonary: No Pulmonary diagnosis or significant findings on chart review or clinical presentation and evaluation. Preoperative deep breathing educational handout provided to patient. No pulmonary diagnosis, however patient is at increased risk of perioperative complications secondary to age > 60, duration of surgery > 2 hours, types of anesthetic ARISCAT: 32 points which is a intermediate (13.3%) risk of in-hospital post-op pulmonary complications PRODIGY: 16 points which is a high risk of post op opioid induced respiratory depression episodes STOP BAN points which is a intermediate risk for moderate to severe ARLEEN Pumonary toilet education discussed, patient also provided deep breathing exercises and incentive spirometry educational handout Renal: No renal diagnosis, however patient is at increase risk for perioperative renal complications secondary to Age equal to or greater than 56, HTN, use of an hector, arb, or NSAID Endocrine: No endocrine diagnosis or significant findings on chart review or clinical presentation and evaluation. No further testing or intervention is indicated at this time. Hematologic/Oncology: #Vitamin B12 deficiency, Vitamin D deficiency, Melanoma of shoulder - follows with PCP and no further need for perioperative intervention. Preoperative DVT educational handout provided to patient. Caprini Score: 10 points which is a highest risk of perioperative VTE Gastrointestinal: No GI diagnosis or significant findings on chart review or clinical presentation and evaluation. However please refer to below risk factor scores. EAT-10 score of 0 : self-perceived oropharyngeal dysphagia scale (0-40) Apfel: 3 points 61% risk for post operative N/V Infectious disease: No infectious diagnosis or significant findings on chart review or clinical presentation and evaluation. Prescription provided for CHG body wash and dental rinse. CHG use instructions reviewed and provided to patient. Staph screen collected Musculoskeletal: #Postlaminectomy syndrome of lumbar region, spinal stenosis of lumbar region, restless leg syndrome, OA, - seeking surgical intervention with ortho. Currently medicated with ropinirole (continue). Other: Hold all vitamins and supplements 7 days prior to surgery Tylenol okay to continue, please hold Aleve/naproxen/ibuprofen (NSAIDs) for 7 days prior to surgery Labs ordered Recent Results (from the past 6 weeks) ECG 12 lead Collection Time: 06/16/24 3:19 PM Result Value Ref Range Ventricular Rate 81 BPM Atrial Rate 81 BPM AK Interval 162 ms QRS Duration 84 ms QT Interval 362 ms QTC Calculation(Bazett) 420 ms P Jerome 57 degrees R Jerome 12 degrees T Jerome 48 degrees QRS Count 13 beats Q Onset 223 ms P Onset 142 ms P Offset 198 ms T Offset 404 ms QTC Fredericia 400 ms Basic Metabolic Panel Collection Time: 06/16/24 3:45 PM Result Value Ref Range Glucose 82 74 - 99 mg/dL Sodium 135 (L) 136 - 145 mmol/L Potassium 4.0 3.5 - 5.3 mmol/L Chloride 101 98 - 107 mmol/L Bicarbonate 26 21 - 32 mmol/L Anion Gap 12 10 - 20 mmol/L Urea Nitrogen 14 6 - 23 mg/dL Creatinine 0.95 0.50 - 1.05 mg/dL eGFR 60 (L) >60 mL/min/1.73m*2 Calcium 9.2 8.6 - 10.6 mg/dL CBC Collection Time: 06/16/24 3:45 PM Result Value Ref Range WBC 6.7 4.4 - 11.3 x10*3/uL nRBC 0.0 0.0 - 0.0 /100 WBCs RBC 3.90 (L) 4.00 - 5.20 x10*6/uL Hemoglobin 11.8 (L) 12.0 - 16.0 g/dL Hematocrit 35.6 (L) 36.0 - 46.0 % MCV 91 80 - 100 fL MCH 30.3 26.0 - 34.0 pg MCHC 33.1 32.0 - 36.0 g/dL RDW 12.5 11.5 - 14.5 % Platelets 239 150 - 450 x10*3/uL Hemoglobin A1C Collection Time: 06/16/24 3:45 PM Result Value Ref Range Hemoglobin A1C 5.0 See comment % Estimated Average Glucose 97 Not Established mg/dL Staphylococcus aureus/MRSA colonization, Culture Collection Time: 06/16/24 3:45 PM Specimen: Nares/Axilla/Groin; Swab Result Value Ref Range Staph/MRSA Screen Culture No Staphylococcus aureus isolated Type And Screen Is this order related to or an upcoming surgery? Yes; Where will this surgery/delivery be performed? [facility]; What is the date of the surgery? 06/24/2024; Has this patient ever had a transfusion? No; Has t... Collection Time: 06/16/24 3:45 PM Result Value Ref Range ABO TYPE A Rh TYPE POS ANTIBODY SCREEN NEG Transthoracic Echo (TTE) Complete Collection Time: 06/17/24 2:44 PM Result Value Ref Range AV pk quita 1.92 m/s AV mn grad 8 mmHg LVOT diam 2.00 cm MV E/A ratio 0.82 LA vol index A/L 27.2 ml/m2 Tricuspid annular plane systolic excursion 1.9 cm LV EF 63 % RV free wall pk S' 6.88 cm/s LVIDd 4.44 cm RVSP 31.6 mmHg Aortic Valve Area by Continuity of VTI 1.85 cm2 Aortic Valve Area by Continuity of Peak Velocity 1.80 cm2 AV pk grad 15 mmHg LV A4C EF 63.2 Medication instructions and NPO guidelines reviewed with the patient. All questions or concerns discussed and addressed. Naomi Jamil PA-C [facility] Work Phone: [phone] History and physical note* Ramy Patel MD - 06/24/2024 6:09 AM EDT H&P reviewed. The patient was examined and there are no changes to the H&P. Cosigned by Jamey Collier MD at 06/24/2024 6:31 AM EDT Source Note - Naomi Jamil PA-C - 06/16/2024 3:15 PM EDT Images from the original note were not included. CPM/PAT Evaluation Name: Spenser Putnam (Spenser Putnam) /Age: 912/07/1940/83 y.o. Visit Type: In-Person Chief Complaint: perioperative evaluation HPI HPI: 83 y/o female scheduled for Percutaneous Thoracic Spinal Cord Stimulator Electrodes and Generator Placement ([employer]) on 06/24/2024 secondary to Postlaminectomy syndrome of lumbar region with Dr. Jamey Collier who referred to CPM. Presents to CPM today for perioperative risk stratification and optimization. PMHX includes insomnia, vertigo, HTN, HLD, Vitamin B12 deficiency, Vitamin D deficiency, Melanoma, Postlaminectomy syndrome of lumbar region, spinal stenosis of lumbar region, restless leg syndrome, OA, . PCP: Destini Lay PA-C Specialists: [facility] - Aj Graham APRN.[employer] Cardiology - Juan Spann Past Medical History: Diagnosis Date Arthritis HTN (hypertension) Hyperlipidemia Insomnia OA (osteoarthritis) Postlaminectomy syndrome of lumbar region Restless leg syndrome Spinal stenosis of lumbar region Vertigo Vitamin B12 deficiency Vitamin D deficiency Past Surgical History: Procedure Laterality Date CATARACT EXTRACTION CHOLECYSTECTOMY age 52 DILATION AND CURETTAGE OF UTERUS SKIN CANCER EXCISION 2014 excision melanoma right shoulder SKIN CANCER EXCISION squamous cell CA rt hand.left LE SPINE SURGERY 01/2021 lateral lumbar interbody fusion L3-4 SPINE SURGERY TONSILLECTOMY Patient Sexual activity questions deferred to the physician. Family History Problem Relation Name Age of Onset No Known Problems Mother Heart attack Father Allergies Allergen Reactions Promethazine Swelling Sulfa (Sulfonamide Antibiotics) Other Vicodin [Hydrocodone-Acetaminophen] Other shaky Prior to Admission medications Medication Sig Start Date End Date Taking? Authorizing Provider aspirin 500 mg buffered tablet Take 600 mg by mouth every 6 hours if needed for mild pain (1 - 3). Historical Provider, aspirin 81 mg EC tablet Take 1 tablet (81 mg) by mouth once daily. Historical Provider, cholecalciferol (Vitamin D3) 25 mcg (1000 units) tablet Take 1 tablet (1,000 Units) by mouth once daily. Historical Provider, levonorgestreL-ethinyl estrad (Tyblume) 0.1 mg- 20 mcg chewable tablet Chew 1 tablet once daily. Historical Provider, lisinopril 20 mg tablet Take 1 tablet (20 mg) by mouth once daily. Historical Provider, magnesium, amino acid chelate, 133 mg tablet Take 1 tablet (133 mg) by mouth 2 times a day. Historical Provider, nortriptyline (Pamelor) 75 mg capsule Take 1 capsule (75 mg) by mouth once daily at bedtime. Historical Provider, potassium chloride CR 20 mEq ER tablet Take 1 tablet (20 mEq) by mouth once daily. Do not crush or chew. Historical Provider, pravastatin (Pravachol) 20 mg tablet Take 1 tablet (20 mg) by mouth once daily. Historical Provider, rOPINIRole (Requip) 4 mg tablet Take 1 tablet (4 mg) by mouth once daily at bedtime. Historical Provider, PAT ROS: Constitutional: no fever no chills no unexpected weight change Neuro/Psych: no numbness no weakness no light-headedness no tremors no confusion not nervous/anxious no self-injury no suicidal ideation Eyes: no discharge no vision loss no diplopia no visual disturbance use of corrective lenses Ears: no ear pain no hearing loss no vertigo no tinnitus no hearing aides Nose: no nasal discharge no sinus congestion no epistaxis Mouth: no dental issues no mouth pain no oral bleeding no mouth lesions Throat: no throat pain no dysphagia no voice change Neck: no neck pain neck swelling no neck stiffness no neck masses Cardio: no chest pain no palpitations no peripheral edema no dyspnea no BEE no paroxysmal nocturnal dyspnea Respiratory: no cough no wheezing no hemoptysis no shortness of breath Endocrine: no cold intolerance no heat intolerance no polydipsia GI: no abdominal distention no abdominal pain no constipation no diarrhea no nausea no vomiting no blood in stool : no difficulty urinating no dysuria no oliguria no polyuria Musculoskeletal: no arthralgias no myalgias no decreased ROM swelling (bilateral ankle swelling, transient and chronic in nature.) Hematologic: does not bruise/bleed easily no excessive bleeding no history of blood transfusion no blood clots Skin: no skin changes no sores/wound no rash Physical Exam Vitals reviewed. Physical exam within normal limits. Constitutional: General: She is not in acute distress. Appearance: Normal appearance. She is normal weight. She is not ill-appearing, toxic-appearing or diaphoretic. Comments: Pleasant and cooperative, no sign acute distress HENT: Head: Normocephalic. Nose: Nose normal. No congestion or rhinorrhea. Mouth/Throat: Mouth: Mucous membranes are moist. Pharynx: Oropharynx is clear. No oropharyngeal exudate or posterior oropharyngeal erythema. Eyes: General: No scleral icterus. Right eye: No discharge. Left eye: No discharge. Conjunctiva/sclera: Conjunctivae normal. Neck: Vascular: No carotid bruit. Cardiovascular: Rate and Rhythm: Normal rate and regular rhythm. Pulses: Normal pulses. Heart sounds: Murmur (systolic, loudest at aortic position) heard. No friction rub. No gallop. Pulmonary: Effort: Pulmonary effort is normal. No respiratory distress. Breath sounds: Normal breath sounds. No stridor. No wheezing, rhonchi or rales. Chest: Chest wall: No tenderness. Musculoskeletal: General: Swelling (minimal bilateral ankle swelling) present. No tenderness. Normal range of motion. Cervical back: Normal range of motion and neck supple. No rigidity or tenderness. Skin: General: Skin is warm and dry. Neurological: General: No focal deficit present. Mental Status: She is alert. Motor: No weakness. Psychiatric: Mood and Affect: Mood normal. Behavior: Behavior normal. Thought Content: Thought content normal. Judgment: Judgment normal. PAT AIRWAY: Airway: Mallampati:: I TM distance:: >3 FB Neck ROM:: Full Visit Vitals BP 122/75 Pulse 81 Temp 36.7 C (98 F) (Temporal) Ht 1.575 m (5' 2) Wt 64.2 kg (141 lb 9.6 oz) SpO2 100% BMI 25.90 kg/m Smoking Status Never BSA 1.68 m DASI Risk Score Flowsheet Row Pre-Admission Testing from 06/16/2024 in [facility] Can you take care of yourself (eat, dress, bathe, or use toilet)? 2.75 filed at 06/16/2024 1525 Can you walk indoors, such as around your house? 1.75 filed at 06/16/2024 1525 Can you walk a block or two on level ground? 2.75 filed at 06/16/2024 1525 Can you climb a flight of stairs or walk up a hill? 5.5 filed at 06/16/2024 1525 Can you run a short distance? 0 filed at 06/16/2024 1525 Can you do light work around the house like dusting or washing dishes? 2.7 filed at 06/16/2024 1525 Can you do moderate work around the house like vacuuming, sweeping floors or carrying groceries? 3.5 filed at 06/16/2024 1525 Can you do heavy work around the house like scrubbing floors or lifting and moving heavy furniture?0 filed at 06/16/2024 1525 Can you do yard work like raking leaves, weeding or pushing a mower? 0 filed at 06/16/2024 1525 Can you have sexual relations? 0 filed at 06/16/2024 1525 Can you participate in moderate recreational activities like golf, bowling, dancing, doubles tennisor throwing a baseball or football? 0 filed at 06/16/2024 1525 Can you participate in strenous sports like swimming, singles tennis, football, basketball, or skiing? 0 filed at 06/16/2024 152 DASI SCORE 18.95 filed at 06/16/2024 1525 METS Score (Will be calculated only when all the questions are answered) 5.1 filed at 06/16/2024 1525 Caprini DVT Assessment Flowsheet Row Pre-Admission Testing from 06/16/2024 in [facility] DVT Score (IF A SCORE IS NOT CALCULATING, MUST SELECT A BMI TO COMPLETE) 10 filed at 06/16/2024 1611 Medical Factors Present cancer, chemotherapy, or previous malignancy, Swollen legs filed at 06/16/2024 1611 Surgical Factors Major surgery planned, lasting 2-3 hours filed at 06/16/2024 1611 BMI (BMI MUST BE CHOSEN) 30 or less filed at 06/16/2024 1611 Modified Frailty Index Flowsheet Row Pre-Admission Testing from 06/16/2024 in [facility] Non-independent functional status (problems with dressing, bathing, personal grooming, or cooking) 0 filed at 06/16/2024 1613 History of diabetes mellitus 0 filed at 06/16/2024 1613 History of COPD 0 filed at 06/16/2024 1613 History of CHF No filed at 06/16/2024 1613 History of HI 0 filed at 06/16/2024 1613 History of Percutaneous Coronary Intervention, Cardiac Surgery, or Angina No filed at 06/16/2024 1613 Hypertension requiring the use of medication 0.0909 filed at 06/16/2024 1613 Peripheral vascular disease 0 filed at 06/16/2024 1613 Impaired sensorium (cognitive impairement or loss, clouding, or delirium) 0 filed at 06/16/2024 1613 TIA or CVA withouy residual deficit 0 filed at 06/16/2024 1613 Cerebrovascular accident with deficit 0 filed at 06/16/2024 1613 Modified Frailty Index Calculator .0909 filed at 06/16/2024 1613 [id number] Stroke Risk Points Current as of just now N/A 0 to 9 Points: Last Change: N/A The [id number] risk score (Doreen KENNEY et al. 2009. 2010 [employer]) quantifies the risk of stroke for a patient with atrial fibrillation. For patients without atrial fibrillation or under the age of 18 this score appears as N/A. Higher score values generally indicate higherrisk of stroke. This score is not applicable to this patient. Components are not calculated. Revised Cardiac Risk Index Flowsheet Row Pre-Admission Testing from 06/16/2024 in [facility] High-Risk Surgery (Intraperitoneal, Intrathoracic,Suprainguinal vascular) 0 filed at 06/16/2024 1612 History of ischemic heart disease (History of HI, History of positive exercuse test, Current chest paint considered due to myocardial ischemia, Use of nitrate therapy, ECG with pathological Q Waves) 0 filed at 06/16/2024 1612 History of congestive heart failure (pulmonary edemia, bilateral rales or S3 gallop, Paroxysmal nocturnal dyspnea, CXR showing pulmonary vascular redistribution) 0 filed at 06/16/2024 1612 History of cerebrovascular disease (Prior TIA or stroke) 0 filed at 06/16/2024 1612 Pre-operative insulin treatment 0 filed at 06/16/2024 1612 Pre-operative creatinine>2 mg/dl 0 filed at 06/16/2024 1612 Revised Cardiac Risk Calculator 0 filed at 06/16/2024 1612 Apfel Simplified Score Flowsheet Row Pre-Admission Testing from 06/16/2024 in [facility] Smoking status 1 filed at 06/16/2024 1611 History of motion sickness or PONV 0 filed at 06/16/2024 1611 Use of postoperative opioids 1 filed at 06/16/2024 1611 Gender - Female 1=Yes filed at 06/16/2024 1611 Apfel Simplified Score Calculator 3 filed at 06/16/2024 1611 Risk Analysis Index Results This Encounter No data found in the last 10 encounters. Stop Bang Score Flowsheet Row Pre-Admission Testing from 06/16/2024 in [facility] Do you snore loudly? 1 filed at 06/16/2024 1526 Do you often feel tired or fatigued after your sleep? 1 filed at 06/16/2024 1526 Has anyone ever observed you stop breathing in your sleep? 0 filed at 06/16/2024 1526 Do you have or are you being treated for high blood pressure? 1 filed at 06/16/2024 1526 Recent BMI (Calculated) 0 filed at 06/16/2024 1526 Age older than 50 years old? 1=Yes filed at 06/16/2024 1526 Is your neck circumference greater than 17 inches (Male) or 16 inches (Female)? 0 filed at 06/16/2024 1526 Gender - Male 0=No filed at 06/16/2024 1526 Prodigy: High Risk Total Score: 16 Prodigy Age Score ARISCAT Score for Postoperative Pulmonary Complications Flowsheet Row Pre-Admission Testing from 06/16/2024 in [facility] Age Calculated Score 16 filed at 06/16/2024 1613 Preoperative SpO2 0 filed at 06/16/2024 1613 Respiratory infection in the last month Either upper or lower (i.e., URI, bronchitis, pneumonia), with fever and antibiotic treatment 0 filed at 06/16/2024 1613 Preoperative anemia (Hgb less than 10 g/dl) 0 filed at 06/16/2024 1613 Surgical incision 0 filed at 06/16/2024 1613 Duration of surgery 16 filed at 06/16/2024 1613 Emergency Procedure 0 filed at 06/16/2024 1613 ARISCAT Total Score 32 filed at 06/16/2024 1613 Kapoor Perioperative Risk for Myocardial Infarction or Cardiac Arrest (DEVONTE) No data to display Assessment and Plan: Anesthesia/Airway: No anesthesia complications Neuro: #insomnia, vertigo, - Follows with PCP , no further need for perioperative intervention. Patient is at an increased risk for post operative delirium secondary to age >/= 65 and type andduration of surgery. Preoperative brain exercise educational handout provided to patient. The patient is at an increased risk for perioperative stroke secondary to increased age, HTN, HLD, female sex , general anesthesia, and hypercoagulable state. HEENT/Airway: No HEENT diagnosis or significant findings on chart review or clinical presentation and evaluation.No further preoperative testing/intervention indicated at this time. Cardiovascular: #new Systolic murmur - noted on physical exam, patient reports she has never been told she has a murmur before. Patient also notes bilateral leg swelling, which has been transient in nature for month. Due to this new murmur, echo ordered for further investigation. See below. #HTN, HLD, - medicated with aspirin (last dose 06/16), lisinopril (last dose ), nortriptyline (continue), potassium (continue), pravastatin (continue), spironolactone (continue), and follows with Cardiology. BP today is 122/75 and denies cardiovascular symptoms. Physical exam is benign. METS is >4 and scheduled for non-cardiac surgery. No additional preoperative testing is currently indicated. Scanned into media, per Dr Mabel Graham MD, patient will need to hold 81 make aspirin 7 days prior to surgery this patient has risk of perioperative cardiac complications with the proposed procedure is low Addendum 06/18/24 - echo completed 06/17, pending results. Addendum 06/22/24 - echo completed 06/17, still no results at this time. Called Echo read and notified Dr Jude Barnett is to read echo, secure chatted. Echo read and no acute findings. METS are 5.1 RCRI 0 which is 3.9% 30 day risk of MACE (risk for cardiac , nonfatal myocardial infarction, and nonfactal cardiac arrest DEVONTE score which indicates a 0.1 % risk of intraoperative or 30-day postoperative MACE EKG 06/16/24 Normal sinus rhythm Low voltage QRS Borderline ECG Echo 06/17/24 CONCLUSIONS: 1. The left ventricular systolic function is normal, with a visually estimated ejection fraction of60-65%. 2. Spectral Doppler shows a Grade I (impaired relaxation pattern) of left ventricular diastolic filling with normal left atrial filling pressure. 3. There is normal right ventricular global systolic function. 4. There is moderate mitral annular calcification. 5. Slightly elevated right ventricular systolic pressure. 6. Aortic valve sclerosis. Holter monitor 11/20-12/04/23 Echo 12/14/2020 The left ventricle is small. Left ventricular systolic function is normal. EF = 65 5% (2D 4-ch.) Grade I left ventricular diastolic dysfunction. - The right ventricle is normal in size. Right ventricular systolic function is normal. - Mild aortic sclerosis with Pk/Mn gradients of 17/9 mmHg. - The patient has not had a prior CC echocardiographic exam for comparison. Pulmonary: No Pulmonary diagnosis or significant findings on chart review or clinical presentation and evaluation. Preoperative deep breathing educational handout provided to patient. No pulmonary diagnosis, however patient is at increased risk of perioperative complications secondary to age > 60, duration of surgery > 2 hours, types of anesthetic ARISCAT: 32 points which is a intermediate (13.3%) risk of in-hospital post-op pulmonary complications PRODIGY: 16 points which is a high risk of post op opioid induced respiratory depression episodes STOP BAN points which is a intermediate risk for moderate to severe ARLEEN Pumonary toilet education discussed, patient also provided deep breathing exercises and incentive spirometry educational handout Renal: No renal diagnosis, however patient is at increase risk for perioperative renal complications secondary to Age equal to or greater than 56, HTN, use of an hector, arb, or NSAID Endocrine: No endocrine diagnosis or significant findings on chart review or clinical presentation and evaluation. No further testing or intervention is indicated at this time. Hematologic/Oncology: #Vitamin B12 deficiency, Vitamin D deficiency, Melanoma of shoulder - follows with PCP and no further need for perioperative intervention. Preoperative DVT educational handout provided to patient. Caprini Score: 10 points which is a highest risk of perioperative VTE Gastrointestinal: No GI diagnosis or significant findings on chart review or clinical presentation and evaluation. However please refer to below risk factor scores. EAT-10 score of 0 : self-perceived oropharyngeal dysphagia scale (0-40) Apfel: 3 points 61% risk for post operative N/V Infectious disease: No infectious diagnosis or significant findings on chart review or clinical presentation and evaluation. Prescription provided for CHG body wash and dental rinse. CHG use instructions reviewed and provided to patient. Staph screen collected Musculoskeletal: #Postlaminectomy syndrome of lumbar region, spinal stenosis of lumbar region, restless leg syndrome, OA, - seeking surgical intervention with ortho. Currently medicated with ropinirole (continue). Other: Hold all vitamins and supplements 7 days prior to surgery Tylenol okay to continue, please hold Aleve/naproxen/ibuprofen (NSAIDs) for 7 days prior to surgery Labs ordered Recent Results (from the past 6 weeks) ECG 12 lead Collection Time: 06/16/24 3:19 PM Result Value Ref Range Ventricular Rate 81 BPM Atrial Rate 81 BPM AK Interval 162 ms QRS Duration 84 ms QT Interval 362 ms QTC Calculation(Bazett) 420 ms P Jerome 57 degrees R Jerome 12 degrees T Jerome 48 degrees QRS Count 13 beats Q Onset 223 ms P Onset 142 ms P Offset 198 ms T Offset 404 ms QTC Fredericia 400 ms Basic Metabolic Panel Collection Time: 06/16/24 3:45 PM Result Value Ref Range Glucose 82 74 - 99 mg/dL Sodium 135 (L) 136 - 145 mmol/L Potassium 4.0 3.5 - 5.3 mmol/L Chloride 101 98 - 107 mmol/L Bicarbonate 26 21 - 32 mmol/L Anion Gap 12 10 - 20 mmol/L Urea Nitrogen 14 6 - 23 mg/dL Creatinine 0.95 0.50 - 1.05 mg/dL eGFR 60 (L) >60 mL/min/1.73m*2 Calcium 9.2 8.6 - 10.6 mg/dL CBC Collection Time: 06/16/24 3:45 PM Result Value Ref Range WBC 6.7 4.4 - 11.3 x10*3/uL nRBC 0.0 0.0 - 0.0 /100 WBCs RBC 3.90 (L) 4.00 - 5.20 x10*6/uL Hemoglobin 11.8 (L) 12.0 - 16.0 g/dL Hematocrit 35.6 (L) 36.0 - 46.0 % MCV 91 80 - 100 fL MCH 30.3 26.0 - 34.0 pg MCHC 33.1 32.0 - 36.0 g/dL RDW 12.5 11.5 - 14.5 % Platelets 239 150 - 450 x10*3/uL Hemoglobin A1C Collection Time: 06/16/24 3:45 PM Result Value Ref Range Hemoglobin A1C 5.0 See comment % Estimated Average Glucose 97 Not Established mg/dL Staphylococcus aureus/MRSA colonization, Culture Collection Time: 06/16/24 3:45 PM Specimen: Nares/Axilla/Groin; Swab Result Value Ref Range Staph/MRSA Screen Culture No Staphylococcus aureus isolated Type And Screen Is this order related to or an upcoming surgery? Yes; Where will this surgery/delivery be performed? [facility]; What is the date of the surgery? 06/24/2024; Has this patient ever had a transfusion? No; Has t... Collection Time: 06/16/24 3:45 PM Result Value Ref Range ABO TYPE A Rh TYPE POS ANTIBODY SCREEN NEG Transthoracic Echo (TTE) Complete Collection Time: 06/17/24 2:44 PM Result Value Ref Range AV pk quita 1.92 m/s AV mn grad 8 mmHg LVOT diam 2.00 cm MV E/A ratio 0.82 LA vol index A/L 27.2 ml/m2 Tricuspid annular plane systolic excursion 1.9 cm LV EF 63 % RV free wall pk S' 6.88 cm/s LVIDd 4.44 cm RVSP 31.6 mmHg Aortic Valve Area by Continuity of VTI 1.85 cm2 Aortic Valve Area by Continuity of Peak Velocity 1.80 cm2 AV pk grad 15 mmHg LV A4C EF 63.2 Medication instructions and NPO guidelines reviewed with the patient. All questions or concerns discussed and addressed. Naomi Jamil PA-C documented [facility] Work Phone: [phone] 304-591804-15-2025 Telephone encounter Note* Telephone Encounter - Tova Diaz MA - 06/22/2024 8:53 AM EDT Pt notified of results via [employer]. Tova Diaz Ma [facility]04-15-2025 Miscellaneous Notes* Telephone Encounter - Tova Diaz MA - 06/22/2024 8:53 AM EDT Pt notified of results via [employer]. Tova Diaz Ma * Telephone Encounter - Tova Diaz MA - 06/22/2024 8:52 AM EDT ----- Message from Thang Shannon MD sent at 06/22/2024 7:16 AM EDT ----- Patient's repeat potassium level is normal after stopping her potassium supplement. Sodium level remains borderline low. Recommend follow up with her PCP for repeat labs at future OV. Sending to PCP as FYI. documented in this encounterC[facility]04-[facility]-2025 Telephone encounter Note * Telephone Encounter - Tova Diaz MA - 06/22/2024 8:52 AM EDT ----- Message from Thang Shannon MD sent at 06/22/2024 7:16 AM EDT ----- Patient's repeat potassium level is normal after stopping her potassium supplement. Sodium level remains borderline low. Recommend follow up with her PCP for repeat labs at future OV. Sending to PCP as FYI. [facility]04-10-2025 Telephone encounter Note* Telephone Encounter - Jonas Milan LPN - 06/17/2024 9:25 AM EDT Pt's daughter calling advising that pt had pre-op labs done yesterday at [facility]. Had a BMP and CBC completed. Wanting to know if pt still needed to have lab work done that pcp/Destini ordered. Advised her that Dr Shannon had ordered a CMP d/t her potassium level was still scott when re checked. He was covering for pcp and Destini. She advises that she will have pt complete these labstoday. Jonas Milan LPN [facility]04-10-2025 Miscellaneous Notes* Telephone Encounter - Jonas Milan LPN - 06/17/2024 9:25 AM EDT Pt's daughter calling advising that pt had pre-op labs done yesterday at [facility]. Had a BMP and CBC completed. Wanting to know if pt still needed to have lab work done that pcp/Destini ordered. Advised her that Dr Shannon had ordered a CMP d/t her potassium level was still scott when re checked. He was covering for pcp and Destini. She advises that she will have pt complete these labstoday. Jonas Milan LPN documented in this encounterC[facility]04-01-2025 Telephone encounter Note * Telephone Encounter - Minnie Guzman LPN - 06/08/2024 10:27 AM EDT Phoned patient and reviewed provider's message with her. She voiced understanding. Minnie Guzman LPN [facility]04-01-2025 Miscellaneous Notes* Telephone Encounter - Minnie Guzman LPN - 06/08/2024 10:27 AM EDT Phoned patient and reviewed provider's message with her. She voiced understanding. Minnie Guzman LPN * Telephone Encounter - Thang Shannon MD - 06/07/2024 3:11 PM EDT Patient's kidney function is improved to her baseline on recheck. Potassium level is still high. She is on a potassium supplement along with Aldactone and lisinopril. I would recommend she stop her potassium supplement at this time and recheck labs in 1 week. Push PO fluids at home. documented in this encounterC[facility]03-31-2025 Telephone encounter Note * Telephone Encounter - Thang Shannon MD - 06/07/2024 3:11 PM EDT Patient's kidney function is improved to her baseline on recheck. Potassium level is still high. She is on a potassium supplement along with Aldactone and lisinopril. I would recommend she stop her potassium supplement at this time and recheck labs in 1 week. Push PO fluids at home. [facility]03-27-2025 Telephone encounter Note* Telephone Encounter - Hector Marie MA - 06/03/2024 4:07 PM EDT Patient informed. Hector Marie MA [facility]03-27-2025 Miscellaneous Notes* Telephone Encounter - Hector Marie MA - 06/03/2024 4:07 PM EDT Patient informed. Hector Marie MA * Telephone Encounter - Juan Spann MD - 06/03/2024 3:24 PM EDT Let patient know her cent labs were ok but her potassium was slightly elevated and she looked dehydrated. Ask her to increase her water intake and on Friday go to the lab at [place] to get e repeat blood draw. Order placed. documented in this encounterC[facility]03-27-2025 Telephone encounter Note * Telephone Encounter - Juan Spann MD - 06/03/2024 3:24 PM EDT Let patient know her cent labs were ok but her potassium was slightly elevated and she looked dehydrated. Ask her to increase her water intake and on Friday go to the lab at [place] to get e repeat blood draw. Order placed. [facility]03-26-2025 Instructions* Patient Instructions* Juan Spann MD - 06/02/2024 11:37 AM EDT Hold your baby Aspirin and Celecoxib starting on 06/17/2024 and restart 2-3 days after surgery unless your surgeon tells you otherwise. documented in this encounterCleveland [facility]03-26-2025 History of Present illness Narrative* Juan Spann MD - 06/02/2024 10:40 AM EDT Chief Complaint Patient presents with: Pre-Op Exam HPI Spenser Putnam is a 83 year old female who presents here today for Pre op for Spinal Cord Stimulator;leads and generator implant at [facility] Patient with hx HTN, hyperlipidemia, RLS, insomnia, vit b12 def, OA and those as below. Patient has a Hx of HTN and has lumbar radiculopathy and is set up to have a spinal cord stimulatorwith generator implanted per Dr. Jamey Collier on 06/24/2024 at [facility]. Patient has been dong ok. No complaints or concerns. Patient is able to climb a flight of stairs and move a piece of furniture without getting short of breath or developing chest tightness. Past medical history, appointments, medications, allergies reviewed. 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 Macias, Rt anterior shoulder, Gilberto III, pT1a, pNX, pM N/A Mixed hyperlipidemia 10/13/2014 Multiple thyroid nodules 09/15/2017 CT neck09/2017 7 mm nodule, US multiple small nodules repeat 09/2019 Non morbid obesity 03/29/2016 Osteopenia, senile 07/02/2005 SEE DEXA 07/15 Other chronic dermatitis due to solar radiation 03/27/2006 Other psoriasis 04/16/2013 Other seborrheic keratosis 06/23/2006 Personal history of other malignant neoplasm of skin 03/22/2013 Raynaud's phenomenon without gangrene 06/07/2020 suspected Restless leg syndrome Sensorineural hearing loss, asymmetrical 10/08/2017 Solar lentigo 03/22/2013 Spinal stenosis of lumbar region 06/17/2023 Spinal stenosis, lumbar region, without neurogenic claudication 07/25/2023 Spondylolisthesis at L5-S1 level 10/20/2012 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 09/15/2012 Vertigo 12/03/2021 MRI normal and patient declined further eval as of 12/03/21 Vitamin B12 deficiency 11/09/2023 Vitamin D deficiency 08/24/2016 Xerosis cutis 03/22/2013 Previous Surgical History PAST SURGICAL HISTORY Procedure Laterality Date ABDOMINAL SURGERY HX BACK SURGERY HX 01/23/2021 lateral lumbar interbody fusion L3-4 CHOLECYSTECTOMY age 52 +/- laparoscopic cholecystectomy COLONOSCOPY 04/29/2013 Dr. Patton, repeat 5 yrs COLONOSCOPY FLX DX W/COLLJ SPEC WHEN PFRMD 07/09/2006 COLONOSCOPY FLX DX W/COLLJ SPEC WHEN PFRMD 04/29/2013 internal hemorrhoids, q5y for FHx COLONOSCOPY, GI 05/02/2000 FHx, repeat q5y DILATION & CURETTAGE DX&/THER NONOBSTETRIC Dilation & curettage EYE SURGERY HX PAST SURGICAL HISTORY OF 12/2011 squamous cell CA rt hand.left LE PAST SURGICAL HISTORY OF 04/2012 rt CTR-- endoscopic PAST SURGICAL HISTORY OF 2012 lumbar surgery- fusion PAST SURGICAL HISTORY OF 2014 excision melanoma right shoulder PAST SURGICAL HISTORY OF Right 2017 bunionectoy TONSILLECTOMY HX TONSILLECTOMY PRIMARY/SECONDARY <AGE 12 childhood Tonsillectomy Family History FAMILY HISTORY Problem Relation Age of Onset Colon Cancer Mother ~70 Hypertension Mother Thyroid Mother Colon Cancer Father ~70 Hypertension Father Stroke Father Heart Father Hx of CHF Coronary Artery Disease Maternal Grandmother Hx of HI Diabetes Daughter Type I Patient Allergies ALLERGIES Allergen Reactions Sulfa (Sulfonamide * Swelling, Anaphylaxis Tongue/ throat swelled Phenergan Plain Vomiting Vomiting Hydrocodone-Acetami* GI Upset NAUSEA Procardia [Nifedipi* Swelling legs Current Medications Current Outpatient Medications on File Prior to Visit Medication Sig rOPINIRole (REQUIP) 4 mg tablet Take 1 tablet by mouth daily at bedtime. celecoxib (CELEBREX) 200 mg capsule Take 1 capsule by mouth once daily. ALPRAZolam 0.5 mg dissolvable tablet BRING 2 TABLETS TO PROCEDURE LOCATION ON THE DAY OF PROCEDURE,TO BE ADMINISTERED BY STAFF cephALEXin (KEFLEX) 500 mg capsule Take 1 capsule by mouth three times a day. Please start 1 day prior to your scheduled procedure in the morning, and complete the full 5 day course. pravastatin (PRAVACHOL) 20 mg tablet Take 1 tablet by mouth daily at bedtime. potassium chloride 20 mEq TbER Take 1 tablet by mouth once daily. spironolactone (ALDACTONE) 50 mg tablet Take 1 tablet by mouth once daily. nortriptyline (PAMELOR) 75 mg capsule Take 1 capsule by mouth daily at bedtime. Magnesium 250 mg tab Take 1 tablet by mouth once daily. lisinopril (ZESTRIL) 10 mg tablet Take 1 tablet by mouth once daily. cholecalciferol, vitamin D3, (VITAMIN D3 ORAL) Take by mouth. cyanocobalamin (VITAMIN B-12) 1,000 mcg tab Take 1 tablet by mouth once daily. pregabalin (LYRICA) 50 mg capsule Take one pill twice daily aspirin, enteric coated (ADULT LOW DOSE ASPIRIN) 81 mg EC tablet Take 1 tablet by mouth once daily. calcium carbonate(CALTRATE 600 600 MG (1,500 MG) TAB) No current facility-administered medications on file prior to visit. Social History Social History Tobacco Use Smoking status: Never Smokeless tobacco: Never Vaping Use Vaping status: Never Used Substance Use Topics Alcohol use: Yes Alcohol/week: 3.9 standard drinks of alcohol Types: 3 Mixed Drinks per week Comment: 3-4/week Drug use: No Review of Symptoms REVIEW OF SYSTEMS GENERAL: No weight loss, malaise or fevers HEENT: Negative for frequent or significant headaches, No changes in hearing or vision, no nose bleeds or other nasal problems NECK: Negative for lumps, goiter, pain and significant neck swelling RESPIRATORY: Negative for cough, hemoptysis, wheezing, COPD, dyspnea or shortness of breath CARDIOVASCULAR: Negative for chest pain, leg swelling, hypertension, CHF or palpitations GI: No nausea, vomiting, or diarrhea and no abdominal pain. : No history of dysuria, blood MUSCULOSKELETAL: {having low back pain and radicular pain. HEMATOLOGY/LYMPHOLOGY: Negative for prolonged bleeding, bruising easily or swollen nodes ENDOCRINE: Negative for cold or heat intolerance, polydipsia and goiter NEURO: No history of headaches, syncope, paralysis, seizures or tremors EXAM: BP 112/60 Pulse 64 Resp 16 Wt 62.6 kg (138 lb) BMI 25.24 kg/m Last 5 Encounter Wt Readings: Date: Wt: 06/02/2024 62.6 kg (138 lb) 03/19/2024 64.4 kg (142 lb) 12/17/2023 66.2 kg (146 lb) 11/28/2023 64.4 kg (142 lb) 09/17/2023 66.2 kg (146 lb) General Appearance: Well appearing, alert, in no acute distress, well-hydrated, well nourished.. Skin: Skin color, texture, turgor normal, no suspicious rashes or lesions. Head: Normocephalic, no masses, lesions, tenderness or abnormalities. Eyes: Anicteric sclera. Pupils are equally round and reactive to light. Extraocular movements are intact. . Ears: External ears, TM's normal, canals clear. Nose/Sinuses: Nares normal, septum midline, mucosa normal, no drainage or sinus tenderness. Oropharynx: Lips, mucosa, and tongue normal, teeth and gums normal, oropharynx normal. Neck: Supple, no adenopathy; thyroid symmetric, normal size, no bruits. Lungs: Lungs clear to auscultation. No wheezing, rhonchi, rales.. Heart: RRR without murmur, gallop, or rubs. No ectopy. Abdomen: Normal abdominal exam, Abdomen soft, non-tender. Bowel sounds normal. No masses, organomegaly. Extremities: No deformities, skin discoloration. Mild ankle edema Rt> Lt. Musculoskeletal: Muscular strength intact, No joint swelling, deformity, or tenderness. Peripheral Pulses: Normal. Neurologic: Gait normal. Reflexes normal and symmetric. Sensation to light touch and crainal nerves2-12 intact.. In Office EKG: NSR with no acute changes. NO significant changes compared to EKG from 11/05/2012 [facility] Maintenance [facility] Depression Screening Never done Anxiety Screening Never done Covid-19 Vaccine( season) due on 05/27/2024 DTaP,Tdap,Td Vaccine(2 - Tdap) due on 09/16/2024 Diabetes Screening due on 11/27/2026 Bone Density Screening Completed Influenza Vaccine Completed RSV Vaccine Completed Shingrix Vaccine Completed Pneumococcal Vaccine: 50+ Completed Colorectal Cancer Screening Discontinued Advance Directive Discussion Discontinued Data reviewed Latest Ref Rng 06/02/2024 WBC 3.70 - 11.00 k/uL 9.40 RBC 3.90 - 5.20 m/uL 3.90 Hemoglobin 11.5 - 15.5 g/dL 11.4 (L) Hematocrit 36.0 - 46.0 % 36.7 MCV 80.0 - 100.0 fL 94.1 MCH 26.0 - 34.0 pg 29.2 MCHC 30.5 - 36.0 g/dL 31.1 RDW-CV 11.5 - 15.0 % 12.6 Platelet Count 150 - 400 k/uL 244 MPV 9.0 - 12.7 fL 9.9 Neut% % 63.8 Abs Neut (ANC) 1.45 - 7.50 k/uL 5.99 Lymph% % 27.1 Abs Lymph 1.00 - 4.00 k/uL 2.55 Brooks% % 6.8 Abs Brooks <0.87 k/uL 0.64 Eosin% % 1.6 Abs Eosin <0.46 k/uL 0.15 Baso% % 0.4 Abs Baso <0.11 k/uL 0.04 Immature Gran % % 0.3 IMMATURE GRANS (ABS) <0.10 k/uL 0.03 NRBC /100 WBC 0.0 Absolute nRBC <0.01 k/uL <0.01 DTYPE Auto Glucose 74 - 99 mg/dL 73 (L) BUN 7 - 21 mg/dL 24 (H) Creatinine 0.58 - 0.96 mg/dL 1.12 (H) Sodium 136 - 144 mmol/L 134 (L) Potassium 3.7 - 5.1 mmol/L 5.8 (H) Chloride 98 - 107 mmol/L 103 CO2 22 - 30 mmol/L 19 (L) Anion Gap 8 - 15 mmol/L 12 Calcium 8.5 - 10.2 mg/dL 9.9 eGFR >=60 mL/min/1.73m 49 (L) A/P ASSESSMENT/PLAN: 1. Pre-op examination - ICD9: V72.84, ICD10: Z01.818 (primary diagnosis) - will check BMP and CBC. Per the ACC/AHA Classification of Surgical Procedure Risk this is a mild/mod risk procedure. Per the [place]' Simple Cardiac Risk Index the patient's cardiac risk is 0.4%. patient has no acute EKG abnormalities and her functional capacity is Moderate to Excellent. There is no need for further cardiac testing an patient is clear medically to proceed. 2. Lumbar radiculopathy - ICD9: 724.4, ICD10: M54.16 - plan is for neuro stimulator per Dr. Collier on 06/24/2024. Patient advised to stop her baby ASA 7 days prior to her procedure and her Celebrex 7 days prior to procedure. May restart 2-3 days post procedure. 3. Essential hypertension with goal blood pressure less than 140/90 - ICD9: 401.9, ICD10: I10 - Controlled - Continue current medications - Recommend home blood pressure monitoring, to bring results to next visit - Encouraged sodium restriction, DASH or Mediterranean diet - Recommend regular aerobic exercise uJan Spann MD documented in this encounterC[facility]03-26-[facility]25 NoteHNO ID: [id number] Author: JUAN SPANN MD Service: ? Author Type: Physician Type: Progress Notes Filed: 06/03/2024 08:17 Note Text: Chief Complaint Patient presents with: Pre-Op Exam HPI Spenser Putnam is a 83 year old female who presents here today for Pre op for Spinal Cord Stimulator;leads and generator implant at [facility] Patient with hx HTN, hyperlipidemia, RLS, insomnia, vit b12 def, OA and those as below. Patient has a Hx of HTN and has lumbar radiculopathy and is set up to have a spinal cord stimulator with generator implanted per Dr. Jamey Collier on 06/24/2024 at [facility] [place]. Patient has been dong ok. No complaints or concerns. Patient is able to climb a flight of stairs and move a piece of furniture without getting short of breath or developing chest tightness. Past medical history, appointments, medications, allergies reviewed. 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 Macias, Rt anterior shoulder, Gilberto III, pT1a, pNX, pM N/A Mixed hyperlipidemia 10/13/2014 Multiple thyroid nodules 09/15/2017 CT neck09/2017 7 mm nodule, US 7.2019 multiple small nodules repeat 09/2019 Non morbid obesity 03/29/2016 Osteopenia, senile 07/02/2005 SEE DEXA 07/15 Other chronic dermatitis due to solar radiation 03/27/2006 Other psoriasis 04/16/2013 Other seborrheic keratosis 06/23/2006 Personal history of other malignant neoplasm of skin 03/22/2013 Raynaud's phenomenon without gangrene 06/07/2020 suspected Restless leg syndrome Sensorineural hearing loss, asymmetrical 10/08/2017 Solar lentigo 03/22/2013 Spinal stenosis of lumbar region 06/17/2023 Spinal stenosis, lumbar region, without neurogenic claudication 07/25/2023 Spondylolisthesis at L5-S1 level 10/20/2012 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 09/15/2012 Vertigo 12/03/2021 MRI normal and patient declined further eval as of 12/03/21 Vitamin B12 deficiency 11/09/2023 Vitamin D deficiency 08/24/2016 Xerosis cutis 03/22/2013 Previous Surgical History PAST SURGICAL HISTORY Procedure Laterality Date ABDOMINAL SURGERY HX BACK SURGERY HX 01/23/2021 lateral lumbar interbody fusion L3-4 CHOLECYSTECTOMY age 52 +/- laparoscopic cholecystectomy COLONOSCOPY 04/29/2013 Dr. Patton, repeat 5 yrs COLONOSCOPY FLX DX W/COLLJ SPEC WHEN PFRMD 07/09/2006 COLONOSCOPY FLX DX W/COLLJ SPEC WHEN PFRMD 04/29/2013 internal hemorrhoids, q5y for FHx COLONOSCOPY, GI 05/02/2000 FHx, repeat q5y DILATION AND CURETTAGE DXAND/THER NONOBSTETRIC Dilation AND curettage EYE SURGERY HX PAST SURGICAL HISTORY OF 12/2011 squamous cell CA rt hand.left LE PAST SURGICAL HISTORY OF 04/2012 rt CTR-- endoscopic PAST SURGICAL HISTORY OF 2012 lumbar surgery- fusion PAST SURGICAL HISTORY OF 2013 excision melanoma right shoulder PAST SURGICAL HISTORY OF Right 2017 bunionectoy TONSILLECTOMY HX TONSILLECTOMY PRIMARY/SECONDARY Tonsillectomy Family History FAMILY HISTORY Problem Relation Age of Onset Colon Cancer Mother ~70 Hypertension Mother Thyroid Mother Colon Cancer Father ~70 Hypertension Father Stroke Father Heart Father Hx of CHF Coronary Artery Disease Maternal Grandmother Hx of HI Diabetes Daughter Type I Patient Allergies ALLERGIES Allergen Reactions Sulfa (Sulfonamide * Swelling, Anaphylaxis Tongue/ throat swelled Phenergan Plain Vomiting Vomiting Hydrocodone-Acetami* GI Upset NAUSEA Procardia [Nifedipi* Swelling legs Current Medications Current Outpatient Medications on File Prior to Visit Medication Sig rOPINIRole (REQUIP) 4 mg tablet Take 1 tablet by mouth daily at bedtime. celecoxib (CELEBREX) 200 mg capsule Take 1 capsule by mouth once daily. ALPRAZolam 0.5 mg dissolvable tablet BRING 2 TABLETS TO PROCEDURE LOCATION ON THE DAY OF PROCEDURE, TO BE ADMINISTERED BY STAFF cephALEXin (KEFLEX) 500 mg capsule Take 1 capsule by mouth three times a day. Please start 1 day prior to your scheduled procedure in the morning, and complete the full 5 day course. pravastatin (PRAVACHOL) 20 mg tablet Take 1 tablet by mouth daily at bedtime. potassium chloride 20 mEq T (more content not included)...[facility]03-17-2025 Telephone encounter Note* Telephone Encounter - Minnie Mattson - 05/24/2024 10:25 AM EDT Last apt 03/19/2024 Next apt 06/02/2024 Patient has been identified by name and date of : Yes Last office visit in this department: 03/19/2024 RX INSTRUCTIONS: Patient aware RX will be sent to pharmacy. No need to notify patient. Patient phones requesting refills as follows: Requested Prescriptions Pending Prescriptions Disp Refills rOPINIRole (REQUIP) 4 mg tablet 90 tablet 1 Sig: Take 1 tablet by mouth daily at bedtime. Please review and advise. Minnie Bennett [facility]03-17-2025 Miscellaneous Notes* Telephone Encounter - Minnie Mattson - 05/24/2024 10:25 AM EDT Last apt 03/19/2024 Next apt 06/02/2024 Patient has been identified by name and date of : Yes Last office visit in this department: 03/19/2024 RX INSTRUCTIONS: Patient aware RX will be sent to pharmacy. No need to notify patient. Patient phones requesting refills as follows: Requested Prescriptions Pending Prescriptions Disp Refills rOPINIRole (REQUIP) 4 mg tablet 90 tablet 1 Sig: Take 1 tablet by mouth daily at bedtime. Please review and advise. Minnie Bennett documented in this encounterC[facility]03-11-2025 Note* Addendum Note - Aj Graham APRN.[employer] - 05/18/2024 10:46 AM EDTAddended by: AJ GRAHAM on: 05/18/2024 10:46 AM Modules accepted: Orders [facility]03-11-2025 Telephone encounter Note* Telephone Encounter - Aj Graham APRN.CNP - 05/18/2024 10:46 AM EDT Ordered reviewed, script refilled [facility]03-11-2025 Miscellaneous Notes* Addendum Note - Aj Graham APRN.CNP - 05/18/2024 10:46 AM EDTAddended by: AJ GRAHAM on: 05/18/2024 10:46 AM Modules accepted: Orders * Telephone Encounter - Aj Graham APRN.CNP - 05/18/2024 10:46 AM EDT Ordered reviewed, script refilled * Telephone Encounter - Meg Chaudhary LPN - 05/18/2024 9:10 AM EDT [facility] faxed requesting the following refill: Refill(s) Requested: Requested Prescriptions No prescriptions requested or ordered in this encounter celecoxib (CELEBREX) 200 mg capsule ALLERGIES Allergen Reactions Sulfa (Sulfonamide * Swelling, Anaphylaxis Tongue/ throat swelled Phenergan Plain Vomiting Vomiting Hydrocodone-Acetami* GI Upset NAUSEA Procardia [Nifedipi* Swelling legs (home) [phone] (cell) Last Office Visit Date: 05/04/2024 Last Distance Health Visit: 04/13/2024 Future Appointment: 07/06/2024 Provider: Aj Graham The patients preferred pharmacy has been captured for this encounter? no Request is for script(s) to be escript to pharmacy. E- [id number] [place] [address] - [address] - [phone] [phone] Specialty Problems Neuro problems Insomnia, unspecified Restless leg syndrome Carpal tunnel syndrome, left Lumbar radiculopathy Pharmacy stated on faxed that patient previously asked pharmacy to cancel this script, now expecting refill Meg Chaudhary LPN May 18, 2024 9:10 AM documented in this encounterC[facility]03-11-2025 Telephone encounter Note * Telephone Encounter - Meg Chaudhary LPN - 05/18/2024 9:10 AM EDT [facility] faxed requesting the following refill: Refill(s) Requested: Requested Prescriptions No prescriptions requested or ordered in this encounter celecoxib (CELEBREX) 200 mg capsule ALLERGIES Allergen Reactions Sulfa (Sulfonamide * Swelling, Anaphylaxis Tongue/ throat swelled Phenergan Plain Vomiting Vomiting Hydrocodone-Acetami* GI Upset NAUSEA Procardia [Nifedipi* Swelling legs (home) [phone] (cell) Last Office Visit Date: 05/04/2024 Last Distance Health Visit: 04/13/2024 Future Appointment: 07/06/2024 Provider: Aj Graham The patients preferred pharmacy has been captured for this encounter? no Request is for script(s) to be escript to pharmacy. E- [id number] - [place] [address] - [address] - [phone] [phone] Specialty Problems Neuro problems Insomnia, unspecified Restless leg syndrome Carpal tunnel syndrome, left Lumbar radiculopathy Pharmacy stated on faxed that patient previously asked pharmacy to cancel this script, now expecting refill Meg Chaudhary LPN May 18, 2024 9:10 AM [facility]03-05-2025 Telephone encounter Note* Telephone Encounter - Mony Laboy - 05/12/2024 11:17 AM EST Spoke to Preethi from [employer] patient was seen by Dr benedict office, patient is waiting to be schedule for implant we reached out to see when she will be scheduled they will be calling her [facility]03-05-2025 Miscellaneous Notes* Telephone Encounter - Mony Laboy - 05/12/2024 11:17 AM EST Spoke to Preethi from [employer] patient was seen by Dr benedict office, patient is waiting to be schedule for implant we reached out to see when she will be scheduled they will be calling her documented in this encounterC[facility]02-25-2025 NoteHNO ID: [id number] Author: AJ GRAHAM APRN.[employer] Service: ? Author Type: Nurse Practitioner Type: Procedures Filed: 05/04/2024 13:26 Note Text: [facility] Date: 05/04/2024 Name: Spenser Putnam : 1940 Purpose: SCS lead(s) Removal Interval History: Spenser Putnam is an established patient at [facility], who presents today for removal of SCS lead(s), which had been inserted to treat/control low back and left leg pain. Status Report: SCS device(s) placed 04/27/2024 (Dr. Roca) Problem with device: none Current pain level: 0/10 Relief experienced during SCS treatment: 100% Complications: none Home Exercise compliance: Spenser Putnam continues with their home exercise program. Pt stating she is doing really well with the SCS. Pt has met with Dr Collier and will get scheduled for the permanent SCS. Data Review: Current Medications: As noted above and per nursing documentation reviewed on 05/04/2024 Social History: Per nursing documentation reviewed on 05/04/2024 Review of Systems: Reviewed nursing note on 05/04/2024 and agree with pertinent positives and negatives. Allergies: ALLERGIES Allergen Reactions Sulfa (Sulfonamide * Swelling, Anaphylaxis Tongue/ throat swelled Phenergan Plain Vomiting Vomiting Hydrocodone-Acetami* GI Upset NAUSEA Procardia [Nifedipi* Swelling legs Focused Physical Exam: 05/04/24 1300 Pulse: 90 Resp: 18 SpO2: 96% Constitutional: overweight Eyes: Conjunctiva clear. No discharge from the eyes Cardiovascular: Appears well-perfused Lymphatic: No visible regional lymphadenopathy Skin: Lead site is clean, dry and intact, no drainage or erythema Psychiatric: Full affect, Alert, Pleasant Diagnoses: (M48.061) Spinal stenosis, lumbar region, without neurogenic claudication (primary encounter diagnosis) (M47.816) Lumbar spondylosis (M54.16) Lumbar radiculopathy Impression: 83 year old female being treated for the conditions noted above, who presents today for removal of SCS lead(s). After verifying the history noted above, performing a focused physical examination, and reviewing available data, the following plan was implemented: Plan: The SCS electrode(s) or lead(s) was removed without incident The patient will be followed by telemarketing representative from the company Additional tests, treatments, or referrals: Spenser Putnam is am appropriate for permanent SCS implant and will be scheduled. With Dr Collier. Follow-up: 2 months Aj Graham APRN.CNP Pain Management [facility] 05-04-2024 Procedure note* Aj Graham APRN.CNP - 05/04/2024 1:11 PM EST [facility] Date: 05/04/2024 Name: Spenser Putnam : 1940 Purpose: SCS lead(s) Removal Interval History: Spenser Putnam is an established patient at [facility], who presents today for removal of SCS lead(s), which had been inserted to treat/control low back and left leg pain. Status Report: SCS device(s) placed 04/27/2024 (Dr. Roca) Problem with device: none Current pain level: 0/10 Relief experienced during SCS treatment: 100% Complications: none Home Exercise compliance: Spenser Putnam continues with their home exercise program. Pt stating she is doing really well with the SCS. Pt has met with Dr Collier and will get scheduled for the permanent SCS. Data Review: Current Medications: As noted above and per nursing documentation reviewed on 05/04/2024 Social History: Per nursing documentation reviewed on 05/04/2024 Review of Systems: Reviewed nursing note on 05/04/2024 and agree with pertinent positives and negatives. Allergies: ALLERGIES Allergen Reactions Sulfa (Sulfonamide * Swelling, Anaphylaxis Tongue/ throat swelled Phenergan Plain Vomiting Vomiting Hydrocodone-Acetami* GI Upset NAUSEA Procardia [Nifedipi* Swelling legs Focused Physical Exam: 05/04/24 1300 Pulse: 90 Resp: 18 SpO2: 96% Constitutional: overweight Eyes: Conjunctiva clear. No discharge from the eyes Cardiovascular: Appears well-perfused Lymphatic: No visible regional lymphadenopathy Skin: Lead site is clean, dry and intact, no drainage or erythema Psychiatric: Full affect, Alert, Pleasant Diagnoses: (M48.061) Spinal stenosis, lumbar region, without neurogenic claudication (primary encounter diagnosis) (M47.816) Lumbar spondylosis (M54.16) Lumbar radiculopathy Impression: 83 year old female being treated for the conditions noted above, who presents today forremoval of SCS lead(s). After verifying the history noted above, performing a focused physical examination, and reviewing available data, the following plan was implemented: Plan: The SCS electrode(s) or lead(s) was removed without incident The patient will be followed by telemarketing representative from the company Additional tests, treatments, or referrals: Spenser Putnam is am appropriate for permanent SCS implant and will be scheduled. With Dr Collier. Follow-up: 2 months Aj Graham APRN.CNP Pain Management [facility]02-25-2025 Procedure note* Aj Graham APRN.CNP - 05/04/2024 1:11 PM EST [facility] Date: 05/04/2024 Name: Spenser Putnam : 1940 Purpose: SCS lead(s) Removal Interval History: Spenser Putnam is an established patient at [facility], who presents today for removal of SCS lead(s), which had been inserted to treat/control low back and left leg pain. Status Report: SCS device(s) placed 04/27/2024 (Dr. Roca) Problem with device: none Current pain level: 0/10 Relief experienced during SCS treatment: 100% Complications: none Home Exercise compliance: Spenser Putnam continues with their home exercise program. Pt stating she is doing really well with the SCS. Pt has met with Dr Collier and will get scheduled for the permanent SCS. Data Review: Current Medications: As noted above and per nursing documentation reviewed on 05/04/2024 Social History: Per nursing documentation reviewed on 05/04/2024 Review of Systems: Reviewed nursing note on 05/04/2024 and agree with pertinent positives and negatives. Allergies: ALLERGIES Allergen Reactions Sulfa (Sulfonamide * Swelling, Anaphylaxis Tongue/ throat swelled Phenergan Plain Vomiting Vomiting Hydrocodone-Acetami* GI Upset NAUSEA Procardia [Nifedipi* Swelling legs Focused Physical Exam: 05/04/24 1300 Pulse: 90 Resp: 18 SpO2: 96% Constitutional: overweight Eyes: Conjunctiva clear. No discharge from the eyes Cardiovascular: Appears well-perfused Lymphatic: No visible regional lymphadenopathy Skin: Lead site is clean, dry and intact, no drainage or erythema Psychiatric: Full affect, Alert, Pleasant Diagnoses: (M48.061) Spinal stenosis, lumbar region, without neurogenic claudication (primary encounter diagnosis) (M47.816) Lumbar spondylosis (M54.16) Lumbar radiculopathy Impression: 83 year old female being treated for the conditions noted above, who presents today forremoval of SCS lead(s). After verifying the history noted above, performing a focused physical examination, and reviewing available data, the following plan was implemented: Plan: The SCS electrode(s) or lead(s) was removed without incident The patient will be followed by telemarketing representative from the company Additional tests, treatments, or referrals: Spenser Putnam is am appropriate for permanent SCS implant and will be scheduled. With Dr Collier. Follow-up: 2 months Aj Graham APRN.[employer] Pain Management [facility] documented in this encounterC[facility] Clinic [facility]02-25-2025 NoteHNO ID: [id number] Author: MARISSA BRIONES LPN Service: ? Author Type: LICENSED NURSE Type: Progress Notes Filed: 05/04/2024 13:26 Note Text: Review of Systems Constitutional: Negative for activity change, chills, fever and unexpected weight change. Gastrointestinal: Negative for bowel retention or incontinence Genitourinary: Negative for difficulty urinating. Negative for bladder retention or incontinence Musculoskeletal: Negative for arthralgias, back pain, gait problem, joint swelling, myalgias, neck pain and neck stiffness. Neurological: Negative for weakness, numbness and headaches. Psychiatric/Behavioral: Negative for dysphoric mood, sleep disturbance and suicidal ideas. The patient is not nervous/anxious.[facility] 05-04-2024 History of Present illness Narrative* Marissa Briones LPN - 05/04/2024 1:00 PM EST Review of Systems Constitutional: Negative for activity change, chills, fever and unexpected weight change. Gastrointestinal: Negative for bowel retention or incontinence Genitourinary: Negative for difficulty urinating. Negative for bladder retention or incontinence Musculoskeletal: Negative for arthralgias, back pain, gait problem, joint swelling, myalgias, neck pain and neck stiffness. Neurological: Negative for weakness, numbness and headaches. Psychiatric/Behavioral: Negative for dysphoric mood, sleep disturbance and suicidal ideas. The patient is not nervous/anxious. documented in this encounterC[facility]02-24-2025 History of Present illness Narrative* Jamey Collier MD - 05/03/2024 2:00 PM EST [facility] Neurosurgery Diagnosis Diagnoses and all orders for this visit: Postlaminectomy syndrome of lumbar region Patient Discussion/Summary Spenser has postlaminectomy syndrome with. After the failure of multimodal management, she underwent atrial of percutaneous spinal cord stimulation using the Medtronic system. She had an excellent result, with greater than 50% pain relief. She also noted significant improvements in her functional capacity. As such, she is an excellent candidate for permanent implantation of a percutaneous Medtronic spinal cord stimulator. The procedure was discussed in detail and all of their questions were answered. We also discussed the risks of the procedure including, but not limited to the risks of bleeding, infection, CSF leak, hardware malfunction, and neurological injury including, but not limited to increased pain, numbness, weakness, paralysis or stroke. The risks of an anesthetic including cardiorespiratory compromise, coma or were touched upon, and will be discussed in greater detail by the anesthesiologist. History of Present Illness Chief Complaint: No chief complaint on file. HPI: Spenser Putnam is a 83 y.o. female with HTN, HLD, valvular heart disease, RLS, melanoma, Raynaud's, RLS, and lumbar spinal stenosis, with FBSS, with radicular leg pain, left greater than right, and low back pain, refractory to multiple medical management, who underwent a recent Medtronic trial of spinal cord stimulation by Dr. Roca (lead pull planned for tomorrow, 05/04), referred here today to discuss permanent implant of spinal cord stimulation. Patient reports bilateral leg, left>right, as well as back pain, that started about 1 year ago. Patient describes this as chronic sharp, electric pain that shoots down the posterior thigh and calfinto the foot, worse on the left; avg 7/10 and worst 9/10 with prolonged standing, sitting, or in the evening. She has superimposed numbness in the first 4 digits of the left foot, sparing the 5th digit. Patient also reports chronic aching in the bilateral back, avg 6/10 and worst 7/10 with activity. She reports prior lumbar fusion x2 around 6 and 10 years ago at [facility], for treatment of primarily lowback pain without a radicular component, from which she had done well until this last year. Patientstates that when the pain returned she was sent to PT, which was not helpful and was discontinued after a couple of sessions. She was then sent to pain management, Dr. Roca, where she started receiving injections. She did several rounds of injections (7 or 8), with minimal to no relief. Patient also reports being trialed on several medications, including celebrex and gabapentin, which were not helpful. She reports taking Aleve and using heat application as needed, which is somewhat helpful. Patient was finally determined to be an excellent candidate for a Medtronic trial of spinal cord stimulation, which was completed by Dr. Roca on 04/27, and is planned for her lead pull tomorrow, 05/04. Patient is currently 6 days into her trial and reports ~95% relief with stimulation into her legs and back. She feels she has been sleeping easier, and has been able to start walking further, as she has not been able to walk any sort of distance for many years. Patient reports being extremely happywith the trial and would like to proceed with permanent implant. ROS: As noted in HPI. Previous History No past medical history on file. No past surgical history on file. No family history on file. Allergies Allergen Reactions Sulfa (Sulfonamide Antibiotics) Other Vicodin [Hydrocodone-Acetaminophen] Other shaky Current Outpatient Medications Medication Instructions aspirin 500 mg buffered tablet 600 mg, oral, Every 6 hours PRN aspirin 81 mg, oral, Daily cholecalciferol (VITAMIN D3) 1,000 Units, oral, Daily levonorgestreL-ethinyl estrad (Tyblume) 0.1 mg- 20 mcg chewable tablet 1 tablet, oral, Daily lisinopril 20 mg, oral, Daily magnesium, amino acid chelate, 133 mg tablet 1 tablet, oral, 2 times daily nortriptyline (PAMELOR) 75 mg, oral, Nightly potassium chloride CR 20 mEq ER tablet 20 mEq, oral, Daily, Do not crush or chew. pravastatin (PRAVACHOL) 20 mg, oral, Daily rOPINIRole (REQUIP) 4 mg, oral, Nightly Vitals BP 156/85 Comment: taken twicw Pulse 101 Wt 64 kg (141 lb) Physical Exam Constitutional: Well appearing. No acute distress. Musculoskeletal: No visible deformity of joints and nails. Normal ROM. Orientation: Oriented to self, place, and time Language: Fluid speech and intact cognition CN 2: Normal CN 3, 4, and 6: Normal CN 5: Normal CN 7: Normal CN 8: Normal CN 9 and 10: Normal CN 11: Normal CN 12: Normal Muscle strength: Full and equal strengths throughout UE and LE. Muscle tone: No atrophy, abnormal movements, flaccidity, cogwheeling or spasticity. Gait and station: Mildly antalgic, but intact gait. Sensation: Reduced sensation in left foot, otherwise grossly intact. Reflexes: Symmetric and normal deep tendon reflexes throughout. Negative Wilson's sign. No clonus at ankles. Coordination: No dysmetria. Mood and Affect: Appropriate mood and affect. Skin: Trial device dressing c/d/i Results An MRI of the thoracic spine from January 2024 was reviewed. This demonstrates mild degenerative disease with no significant central or foraminal stenosis. [facility] Phone: [phone] 739-543402-24-2025 History of Present illness Narrative* Joel Aguilar RT(R) - 05/03/2024 8:10 AM EST Radiology Service Progress Note PATIENT NAME: Spenser Putnam DATE OF SERVICE: May 03, 2024 TIME: 8:45 AM PATIENT IDENTITY VERIFICATION COMPLETED USING TWO (2) IDENTIFIERS: Name and Date of confirmedby patient verbally. FALL SCREENING: Has the patient had 2 falls in the last year or 1 fall with injury or currently using an Ambulatory Assistive Device (Walker, Cane, Wheelchair, Crutches, etc.)? No PATIENT GENDER DATA: Assigned female at . status: : No status:NO. PATIENT RELEVANT IMPLANT DATA REVIEWED: Not Applicable PATIENT PRESENTS WITH AN IMPLANTABLE OR ATTACHED OPERATIONS ANALYST: yes, SCS device RADIOLOGY DEPARTMENT: LUMBAR AP/LAT T-SPINE AP/LAT WT BEARING PERIPHERAL IV DATA: Not applicable SIGNED BY: RT Airam(Theresa) May 03, 2024 8:45 AM [facility] NoteHNO ID: [id number] Author: JOEL AGUILAR RT(R) Service: ? Author Type: Technologist Type: Progress Notes Filed: 05/03/2024 10:09 Note Text: Radiology Service Progress Note PATIENT NAME: Spenser Putnam DATE OF SERVICE: May 03, 2024 TIME: 8:45 AM PATIENT IDENTITY VERIFICATION COMPLETED USING TWO (2) IDENTIFIERS: Name and Date of confirmed by patient verbally. FALL SCREENING: Has the patient had 2 falls in the last year or 1 fall with injury or currently using an Ambulatory Assistive Device (Walker, Cane, Wheelchair, Crutches, etc.)? No PATIENT GENDER DATA: Assigned female at . status: : No status: NO. PATIENT RELEVANT IMPLANT DATA REVIEWED: Not Applicable PATIENT PRESENTS WITH AN IMPLANTABLE OR ATTACHED OPERATIONS ANALYST: yes, SCS device RADIOLOGY DEPARTMENT: LUMBAR AP/LAT T-SPINE AP/LAT WT BEARING PERIPHERAL IV DATA: Not applicable SIGNED BY: Joel Aguilar RT(R) May 03, 2024 8:45 [facility]02-18-2025 History of Present illness Narrative* Danii Roca MD, PhD - 04/27/2024 1:30 PM EST [facility] Date: 04/27/2024 Patient name: Spenser Putnam Physician performing procedure: Danii Roca MD, PhD Procedure: Spinal Cord Stimulator (SCS) - Trial under fluoroscopic guidance Approach: AP, PHILLIP, Lateral Injectate: A total of 10cc of 1% Lidocaine (5ml per side) and 10cc of 0.5% Bupivicaine (5ml per side) Improvement after today's procedure: as per nursing report Diagnosis: (M48.061) Spinal stenosis, lumbar region, without neurogenic claudication (primary encounter diagnosis) (M54.16) Lumbar radiculopathy Comments: None HPI: Spenser Putnam is an 83 year old FEMALE who presents today for an elective spinal cord stimulator (SCS) trial. 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 Pt has complaint(s) of recurrent low back pain and left lower limb radicular symptoms in a predominantly L5 dermatomal distribution, however repeat MRI L- spine shows evidence of lumbar spinal stenosis (MRI L-spine 2023 notable for moderate to severe L2-3, mild to moderate L3-4 central canal stenosis) and lumbar NF stenosis (mild to moderate L L2-3 and mild R L2-3 NF stenosis, moderate bilateral NF stenosis at L3-4, mild to moderate L and mild R NF stenosis at L5-S1) in setting of known multilevel listhesis. Patient has evidence of moderate to severe L2-3 central canal stenosis as well as moderate L3-4 central stenosis in the setting of adjacent segment disease from her prior L3-5 laminectomy and posterior fusion. She reports significant symptoms of neurogenic claudication, as well as significant left L5 dermatomal distribution of pain. She has had limited relief from left L4-5 and L5-S1 transforaminal SHERMAN as well as left L5-S1 and S1 transforaminal SHERMAN's, and was not recommended further surgical intervention. Due to the above she was recommended to complete workup for SCS evaluation. Patient was recommended trialing a caudal SHERMAN for her radicular symptoms to assess if particulate steroid may provide her more long-lasting benefit. She would further benefit from bilateral L2-3 transforaminal SHERMAN's to target the mostsevere portion of her central canal stenosis at the L2-3 level. If these fail to provide benefit, plan was made to proceed with a SCS trial in preparation for implant. Patient otherwise denies fevers, chills, weakness, saddle anesthesia, bowel or bladder incontinenceor recent antibiotic or anticoagulant use. Review of Systems: Pertinent Positives: MSK: pain in the region being treated Neuro: No weakness or numbness in the region being treated Skin: Negative (No itching) Eyes: Negative (No blurred or double vision) Respiratory: Negative (No Cough, [id number]-qj-kxspmy, Dyspnea on exertion, wheezing) Cardiovascular: Negative (No Chest Pain, Tightness, Pressure, Palpitations) Gastrointestinal: Negative (No Abdominal pain, Nausea, Vomiting, Constipation, Diarrhea) Genitourinary: Negative (No dysuria) Hematologic: Negative (No bleeding, bruising) OB: is Denied or Not Applicable Endocrine: Negative (No hot/cold intolerance) Psychiatric: Negative (No depression, anxiety or suicidal ideation) ALLERGIES Allergen Reactions Sulfa (Sulfonamide * Swelling, Anaphylaxis Tongue/ throat swelled Phenergan Plain Vomiting Vomiting Hydrocodone-Acetami* GI Upset NAUSEA Procardia [Nifedipi* Swelling legs Current Outpatient Medications on File Prior to Visit Medication Sig ALPRAZolam 0.5 mg dissolvable tablet BRING 2 TABLETS TO PROCEDURE LOCATION ON THE DAY OF PROCEDURE,TO BE ADMINISTERED BY STAFF cephALEXin (KEFLEX) 500 mg capsule Take 1 capsule by mouth three times a day. Please start 1 day prior to your scheduled procedure in the morning, and complete the full 5 day course. pravastatin (PRAVACHOL) 20 mg tablet Take 1 tablet by mouth daily at bedtime. potassium chloride 20 mEq TbER Take 1 tablet by mouth once daily. rOPINIRole (REQUIP) 4 mg tablet Take 1 tablet by mouth daily at bedtime. spironolactone (ALDACTONE) 50 mg tablet Take 1 tablet by mouth once daily. nortriptyline (PAMELOR) 75 mg capsule Take 1 capsule by mouth daily at bedtime. Magnesium 250 mg tab Take 1 tablet by mouth once daily. lisinopril (ZESTRIL) 10 mg tablet Take 1 tablet by mouth once daily. cholecalciferol, vitamin D3, (VITAMIN D3 ORAL) Take by mouth. cyanocobalamin (VITAMIN B-12) 1,000 mcg tab Take 1 tablet by mouth once daily. pregabalin (LYRICA) 50 mg capsule Take one pill twice daily aspirin, enteric coated (ADULT LOW DOSE ASPIRIN) 81 mg EC tablet Take 1 tablet by mouth once daily. calcium carbonate(CALTRATE 600 600 MG (1,500 MG) TAB) No current facility-administered medications on file prior to visit. 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 Macias, Rt anterior shoulder, Gilberto III, pT1a, pNX, pM N/A Mixed hyperlipidemia 10/13/2014 Multiple thyroid nodules 09/15/2017 CT neck09/2017 7 mm nodule, US .2018 multiple small nodules repeat 09/2019 Non morbid obesity 03/29/2016 Osteopenia, senile 07/02/2005 SEE DEXA 07/15 Other chronic dermatitis due to solar radiation 03/27/2006 Other psoriasis 04/16/2013 Other seborrheic keratosis 06/23/2006 Personal history of other malignant neoplasm of skin 03/22/2013 Raynaud's phenomenon without gangrene 06/07/2020 suspected Restless leg syndrome Sensorineural hearing loss, asymmetrical 10/08/2017 Solar lentigo 03/22/2013 Spinal stenosis of lumbar region 06/17/2023 Spinal stenosis, lumbar region, without neurogenic claudication 07/25/2023 Spondylolisthesis at L5-S1 level 10/20/2012 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 09/15/2012 Vertigo 12/03/2021 MRI normal and patient declined further eval as of 12/03/21 Vitamin B12 deficiency 11/09/2023 Vitamin D deficiency 08/24/2016 Xerosis cutis 03/22/2013 PAST SURGICAL HISTORY Procedure Laterality Date ABDOMINAL SURGERY HX BACK SURGERY HX 01/23/2021 lateral lumbar interbody fusion L3-4 CHOLECYSTECTOMY age 52 +/- laparoscopic cholecystectomy COLONOSCOPY 04/29/2013 Dr. Patton, repeat 5 yrs COLONOSCOPY FLX DX W/COLLJ SPEC WHEN PFRMD 07/09/2006 COLONOSCOPY FLX DX W/COLLJ SPEC WHEN PFRMD 04/29/2013 internal hemorrhoids, q5y for FHx COLONOSCOPY, GI 05/02/2000 FHx, repeat q5y DILATION & CURETTAGE DX&/THER NONOBSTETRIC Dilation & curettage EYE SURGERY HX PAST SURGICAL HISTORY OF 12/2011 squamous cell CA rt hand.left LE PAST SURGICAL HISTORY OF 04/2012 rt CTR-- endoscopic PAST SURGICAL HISTORY OF 2013 lumbar surgery- fusion PAST SURGICAL HISTORY OF 2014 excision melanoma right shoulder PAST SURGICAL HISTORY OF Right 2017 bunionectoy TONSILLECTOMY HX TONSILLECTOMY PRIMARY/SECONDARY <AGE 12 childhood Tonsillectomy FAMILY HISTORY Problem Relation Age of Onset Colon Cancer Mother ~70 Hypertension Mother Thyroid Mother Colon Cancer Father ~70 Hypertension Father Stroke Father Heart Father Hx of CHF Coronary Artery Disease Maternal Grandmother Hx of HI Diabetes Daughter Type I Social History Tobacco Use Smoking status: Never Smokeless tobacco: Never Vaping Use Vaping status: Never Used Substance Use Topics Alcohol use: Yes Alcohol/week: 3.9 standard drinks of alcohol Types: 3 Mixed Drinks per week Comment: 3-4/week Drug use: No Attestation Information obtained by others were confirmed and edited as necessary on 04/26/2024 by Danii Roca MD, PhD. Objective Exam: Vitals: As per nursing documentation Constitutional: Normal Appearance, Oriented to Time, Place and Person Head: No lacerations, no external signs of trauma Eyes: Conjunctiva clear. No discharge from the eyes Cardiovascular: Appears well-perfused Pulmonary: Non-labored respirations Abdominal: Non-distended Skin: No visible rashes or ecchymosis Psychiatric: Mood appropriate for given condition Neurological: no focal deficits, gross movements are limited by pain, but otherwise unremarkable Data Reviewed: Nursing note and vitals reviewed. Additional imaging reviewed as appropriate Assessment and Plan: We discussed their current plan and the pathology responsible for the patient's pain. Specific counseling related to the procedure was provided regarding the risks, benefits and alternatives. The patient wishes to proceed with the plan as noted above. Encounter Diagnosis ICD-10-CM 1. Spinal stenosis, lumbar region, without neurogenic claudication M48.061 lidocaine (PF) 10 mg/mL (1 %) 100 mg injection (XYLOCAINE) 0.9% NaCl 10 mL flush BUPivacaine (PF) 0.5 % (5 mg/mL) 5 mg injection SPINAL CORD STIM PERCT SCS ELCT 2. Lumbar radiculopathy M54.16 lidocaine (PF) 10 mg/mL (1 %) 100 mg injection (XYLOCAINE) 0.9% NaCl 10 mL flush BUPivacaine (PF) 0.5 % (5 mg/mL) 5 mg injection SPINAL CORD STIM PERCT SCS ELCT UNIVERSAL PROTOCOL / SAFETY CHECKLIST Procedure to be Performed: as stated above Sign In: A Moment of CARE was completed. Personnel directly involved with the procedure wore the appropriate PPE (Personal Protective Equipment). Patient/Surrogate Stated/Verified: PATIENT VERIFIED(optional for EMERGENT procedures): Patient name, Date of , Relevant allergies and The intended procedure Time Out Communication: Intended patient and procedure match the source documents. Consent documented and matches the intended procedure. Relevant labs, photos, and/or imaging studies have been reviewed. Medications required for procedure verified. Sign Out: SIGN OUT (optional for EMERGENT procedures): No specimen collected. Time out to confirm patient name, date of , procedure site, laterality, and allergies performed by physician. Please see nursing note for exact times (time out, procedure start, procedure end). [place] protocol documentation / Pre-Procedure checklist: Unless stated otherwise in the procedure note, the risks include but are not limited to infection, allergic reaction, increased pain, lack of therapeutic benefit, steroid reaction, nerve damage, paralysis, stroke, epidural hematoma, syncope, headache, respiratory or cardiac arrest, pneumothorax, and scar formation Time Out was led by the physician in the procedure room, with the patient and all staff present andparticipating The following information was verified: name, date of , procedure site (marked), laterality, anticoagulants and allergies [place] protocol documentation / Pre-Procedure Checklist: Consent: Obtained in writing prior to procedure Unless stated otherwise in the procedure note, the risks include but are not limited to infection, allergic reaction, increased pain, lack of therapeutic benefit, steroid reaction, nerve damage, paralysis, stroke, epidural hematoma, syncope, headache, respiratory or cardiac arrest, pneumothorax, and scar formation Once the plan was agreed upon, the patient gave written consent to proceed and was transported intothe procedure room Surgical/Procedure pause or Time Out : Time Out was led by the physician in the procedure room, with the patient and all staff present andparticipating The following information was verified during the Time Out process: Patient name, patient date of , procedure site (marked), laterality, anticoagulants and allergies Anticoagulants: reviewed with patient, notable for: none DESCRIPTION OF PROCEDURE: The patient was brought to the procedure room and positioned prone on the procedure room table. A pillow was placed below the abdomen to decrease lumbar lordosis and a safety strap was placed across the legs. The thoracic and lumbar region was then exposed and prepped in a sterile fashion using 2% Chloroprep scrub, followed by sterile drapes and [place]. A timeout was then performed including all team members. Under fluoroscopic guidance, the lumbar and thoracic vertebrae were identified and numbered. Sites were then marked with planned epidural access at the L1-2 interlaminar space. Skin anesthesia was achieved using 2 mL of Lidocaine 1% using a 25G 1.5inch needle to infiltrate the skin overthe respective injection site.The expected tract was then anesthetized with lidocaine 1% as well asbupivacaine 0.5% via a 22-gauge 5 inch spinal needle into the entry site, which was one level belowthe anticipated epidural entry site bilaterally. Using a 4-inch, 14-gauge coude epidural needle, the L1-2 interspace was accessed using a loss of resistance technique as well as multiplanar fluoroscopy for image guidance. There was a crisp loss at that level, negative aspiration for blood or CSF. Access to the epidural space was then repeated on the contralateral side at the same interspace and there was a crisp loss at this level as well. Under continuous fluoroscopy two 8-contact spinal cord s timulator leads were advanced to the top of T8 bilaterally. Both leads were then connected to allowfor test stimulation, with patient reporting stimulation covering their painful areas. The needles were then withdrawn under continuous fluoroscopy. The leads were then adjusted under live fluoroscopy as well to their final positon. The leads were secured using StayFIX 2-0 nylon suture as well as Tegaderm and paper tape. Impedances of the spinal cord stimulator leads were checked by the device telemarketing representative who was in the room at all times. The patient was then transferred without incident to the recovery room. The patient's postoperative neurological examination showed no evidence of lower e xtremity weakness with normal bowel and bladder function. Please see the nursing note for exact times (time out, procedure start, procedure end). After careful removal of the needle, there was minimal bleeding. The injection site was covered with appropriate sterile dressing. The patient was noted to have tolerated the procedure well and was discharged after an appropriate period of post-procedure observation. The patient was instructed to contact us if there were any complications. The patient was advised to follow-up with the requesting physician within one to two weeks or as per their requested follow-up plan. Post procedure visit summary with written instructions was offered to the patient. Danii Roca MD, PhD Pain Management [facility] * Ashutosh Vance LPN - 04/27/2024 12:54 PM EST Spinal Cord Stimulator Trial Procedure Date: April 27, 2024 Patient Name: Spenser Putnam Date of : 1940 Time in:1348 Time start:1351 Time stop:1508 SCS System VECTRIS SCREENING TRIAL KIT Model : [employer] LOT: [id number] EXP: 2028-03-31 SCS System WIRELESS EXTERNAL NEUROSTIMULATOR Model: [employer] LOT: [id number] EXP: 2025-06-14 SCS System VECTRIS SCREENING TRIAL KIT Model: [employer] LOT: [id number] EXP: 2028-02-13 Nurse : Ashutosh Vance LPN Date: April 27, 2024 Time: 12:54 PM Physician: Danii Roca MD, PhD Date: April 27, 2024 Time: 12:54 PM Ashutosh Vance LPN Pause completed at each level by provider to verify correct level and laterality placement Patient was wheeled on stretcher from pre op bay to procedure room and assisted onto the procedure table. Patient s procedure was performed in [facility] procedure room. Pressure was applied to patient s injection site(s) and bleeding was minimal. Patient had no complaint of shortness of breath, dizziness, headache, numbness, tingling, weakness or complications from procedure. Patient was assisted fromthe procedure table onto the stretcher and wheeled into a post op bay. Patient was advised a Medtronic Emergency Dispatcher would be in for reprogramming. Patient was advised a clinician will be to obtain another set of vitals. Present in the room is: Danii Roca MD, PhD - Physician Ashutosh Smith: [employer] Emergency Dispatcher [employer] - X-Ray Tech Comments: None Tolerated procedure well: Yes Review of Systems * Meg Chaudhary LPN - 04/27/2024 12:42 PM EST Review of Systems Constitutional: Positive for activity change. Negative for chills, fever and unexpected weight change. Gastrointestinal: Negative for bowel retention or incontinence Genitourinary: Negative for difficulty urinating. Negative for bladder retention or incontinence Musculoskeletal: Positive for arthralgias, back pain, gait problem and joint swelling. Negative formyalgias, neck pain and neck stiffness. Neurological: Positive for weakness and numbness. Negative for headaches. Psychiatric/Behavioral: Positive for sleep disturbance. Negative for dysphoric mood and suicidal ideas. The patient is nervous/anxious. * Meg Chaudhary LPN - 04/27/2024 12:38 PM EST Supervisor Frame Sample And Pattern's Name: elysia Are you on a blood thinner: n If yes, is a hold required: n Last dose of blood thinner: n INR Result today: n Do you require a Lovenox bridge:n Are you a diabetic:n Are you/or could you be : n Are you taking Xanax for the procedure: y Are you currently on a steroid? n Are you currently on an antibiotic: y for this procedure documented in this encounterC[facility] NoteHNO ID: [id number] Author: DANII ROCA MD, PhD Service: ? Author Type: Physician Type: Progress Notes Filed: 04/27/2024 15:18 Note Text: [facility] Date: 04/27/2024 Patient name: Spenser Putnam Physician performing procedure: Danii Roca MD, PhD Procedure: Spinal Cord Stimulator (SCS) - Trial under fluoroscopic guidance Approach: AP, PHILLIP, Lateral Injectate: A total of 10cc of 1% Lidocaine (5ml per side) and 10cc of 0.5% Bupivicaine (5ml per side) Improvement after today's procedure: as per nursing report Diagnosis: (M48.061) Spinal stenosis, lumbar region, without neurogenic claudication (primary encounter diagnosis) (M54.16) Lumbar radiculopathy Comments: None HPI: Spenser Putnam is an 83 year old FEMALE who presents today for an elective spinal cord stimulator (SCS) trial. 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 Pt has complaint(s) of recurrent low back pain and left lower limb radicular symptoms in a predominantly L5 dermatomal distribution, however repeat MRI L-spine shows evidence of lumbar spinal stenosis (MRI L-spine 2023 notable for moderate to severe L2-3, mild to moderate L3-4 central canal stenosis) and lumbar NF stenosis (mild to moderate L L2-3 and mild R L2-3 NF stenosis, moderate bilateral NF stenosis at L3-4, mild to moderate L and mild R NF stenosis at L5-S1) in setting of known multilevel listhesis. Patient has evidence of moderate to severe L2-3 central canal stenosis as well as moderate L3-4 central stenosis in the setting of adjacent segment disease from her prior L3-5 laminectomy and posterior fusion. She reports significant symptoms of neurogenic claudication, as well as significant left L5 dermatomal distribution of pain. She has had limited relief from left L4-5 and L5-S1 transforaminal SHERMAN as well as left L5-S1 and S1 transforaminal SHERMAN's, and was not recommended further surgical intervention. Due to the above she was recommended to complete workup for SCS evaluation. Patient was recommended trialing a caudal SHERMAN for her radicular symptoms to assess if particulate steroid may provide her more long-lasting benefit. She would further benefit from bilateral L2-3 transforaminal SHERMAN's to target the mostsevere portion of her central canal stenosis at the L2-3 level. If these fail to provide benefit, plan was made to proceed with a SCS trial in preparation for implant. Patient otherwise denies fevers, chills, weakness, saddle anesthesia, bowel or bladder incontinence or recent antibiotic or anticoagulant use. Review of Systems: Pertinent Positives: MSK: pain in the region being treated Neuro: No weakness or numbness in the region being treated Skin: Negative (No itching) Eyes: Negative (No blurred or double vision) Respiratory: Negative (No Cough, Dltahrraw-qz-wemsvd, Dyspnea on exertion, wheezing) Cardiovascular: Negative (No Chest Pain, Tightness, Pressure, Palpitations) Gastrointestinal: Negative (No Abdominal pain, Nausea, Vomiting, Constipation, Diarrhea) Genitourinary: Negative (No dysuria) Hematologic: Negative (No bleeding, bruising) OB: is Denied or Not Applicable Endocrine: Negative (No hot/cold intolerance) Psychiatric: Negative (No depression, anxiety or suicidal ideation) ALLERGIES Allergen Reactions Sulfa (Sulfonamide * Swelling, Anaphylaxis Tongue/ throat swelled Phenergan Plain Vomiting Vomiting Hydrocodone-Acetami* GI Upset NAUSEA Procardia [Nifedipi* Swelling legs Current Outpatient Medications on File Prior to Visit Medication Sig ALPRAZolam 0.5 mg dissolvable tablet BRING 2 TABLETS TO PROCEDURE LOCATION ON THE DAY OF PROCEDURE, TO BE ADMINISTERED BY STAFF cephALEXin (KEFLEX) 500 mg capsule Take 1 capsule by mouth three times a day. Please start 1 day prior to your scheduled procedure in the morning, and complete the full 5 day course. pravastatin (PRAVACHOL) 20 mg tablet Take 1 tablet by mouth daily at bedtime. potassium chloride 20 mEq TbER Take 1 tablet by mouth once daily. rOPINIRole (REQUIP) 4 mg tablet Take 1 tablet by mouth daily at bedtime. spironolactone (ALDACTONE) 50 mg tablet Take 1 tablet by mouth once daily. nortriptyline (PAMELOR) 75 mg capsule Take 1 capsule by mouth daily at bedtime. Magnesium 250 mg tab Take 1 tablet by mouth once daily. lisinopril (ZESTRIL) 10 mg tablet Take 1 tablet by mouth once daily. cholecalciferol, vitamin D3, (VITAMIN D3 ORAL) Take by mouth (more content not included)...[facility]02-18-[facility]25 NoteHNO ID: [id number] Author: ASHUTOSH VANCE LPN Service: ? Author Type: LICENSED NURSE Type: Progress Notes Filed: 05/12/2024 09:15 Note Text: Spinal Cord Stimulator Trial Procedure Date: April 27, 2024 Patient Name: Spenser Putnam Date of : 1940 Time in:1348 Time start:1351 Time stop:1508 SCS System VECTRIS SCREENING TRIAL KIT Model : [employer] LOT: [id number] EXP: 2028-03-31 SCS System WIRELESS EXTERNAL NEUROSTIMULATOR Model: [employer] LOT: [id number] EXP: 2025-06-14 SCS System VECTRIS SCREENING TRIAL KIT Model: [employer] LOT: [id number] EXP: 2028-02-13 Nurse : Ashutosh Vance LPN Date: April 27, 2024 Time: 12:54 PM Physician: Danii Roca MD, PhD Date: April 27, 2024 Time: 12:54 PM Ashutosh Vance LPN Pause completed at each level by provider to verify correct level and laterality placement Patient was wheeled on stretcher from pre op bay to procedure room and assisted onto the procedure table. Patient?s procedure was performed in [facility] procedure room. Pressure was applied to patient?s injection site(s) and bleeding was minimal. Patient had no complaint of shortness of breath, dizziness, headache, numbness, tingling, weakness or complications from procedure. Patient was assisted from the procedure table onto the stretcher and wheeled into a post op bay. Patient was advised a [employer] Emergency Dispatcher would be in for reprogramming. Patient was advised a clinician will be to obtain another set of vitals. Present in the room is: Danii Roca MD, PhD - Physician Ashutosh Smith: [employer] Emergency Dispatcher [employer] - X-Ray Tech Comments: None Tolerated procedure well: Yes Review of [facility] 04-27-2024 Instructions* Patient Instructions* Malika Jones LPN - 04/27/2024 12:52 PM EST SPINE - SPINAL CORD DISCHARGE INSTRUCTIONS @DATE@ Spenser Putnam 1940 Activity: * Do NOT drive or operate machinery today. * Do NOT engage in any strenuous activity today. * Do NOT bathe or get site wet. Sponge bath ONLY. * NO lifting, twisting or bending. * Do NOT lift arms above your head. Diet: Resume pre-procedure diet Care of catheter site: * Notify our office if the injection site becomes red, swollen, hot or painful, or begins to bleed or drain. Special Instructions: * Keep a diary of your pain levels, medication requirements, activity levels and overall response to stimulation. * Use the hand held stimulator device and assess if the stimulation relieves your discomfort. * Schedule a follow-up appointment on 05/04/2024, appt. Is at 1pm arrive at 12:45pm to have the catheter removed. Malika Jones LPN documented in this encounterC[facility]02-18-2025 NoteHNO ID: [id number] Author: MEG CHAUDHARY LPN Service: ? Author Type: LICENSED NURSE Type: Progress Notes Filed: 04/27/2024 15:18 Note Text: Review of Systems Constitutional: Positive for activity change. Negative for chills, fever and unexpected weight change. Gastrointestinal: Negative for bowel retention or incontinence Genitourinary: Negative for difficulty urinating. Negative for bladder retention or incontinence Musculoskeletal: Positive for arthralgias, back pain, gait problem and joint swelling. Negative for myalgias, neck pain and neck stiffness. Neurological: Positive for weakness and numbness. Negative for headaches. Psychiatric/Behavioral: Positive for sleep disturbance. Negative for dysphoric mood and suicidal ideas. The patient is nervous/anxious.[facility]02-[facility]25 NoteHNO ID: [id number] Author: MEG CHAUDHARY LPN Service: ? Author Type: LICENSED NURSE Type: Progress Notes Filed: 04/27/2024 15:18 Note Text: Supervisor Frame Sample And Pattern's Name: elysia Are you on a blood thinner: n If yes, is a hold required: n Last dose of blood thinner: n INR Result today: n Do you require a Lovenox bridge:n Are you a diabetic:n Are you/or could you be : n Are you taking Xanax for the procedure: y Are you currently on a steroid? n Are you currently on an antibiotic: y for this procedureHoulton [facility]02-17-2025 Telephone encounter Note* Telephone Encounter - Monae Mancini PSS - 04/26/2024 3:33 PM EST Patient called [facility] stated she had question about her trial. VM was transferred to [facility] @ [id number] Monae Mancini Gear Room Keeper to Dr. Danii Roca,PhD, Dr. Kahlil Juarez DO, Mikie Hardwick APRN,[employer] [facility] P: [phone] / F: [phone] [facility]02-17-2025 Miscellaneous Notes* Telephone Encounter - Monae Mancini PSS - 04/26/2024 3:33 PM EST Patient called [facility] stated she had question about her trial. VM was transferred to [facility] @ [id number] Monae Manc[address] to Dr. Danii Roca,PhD, Dr. Kahlil Juarez DO, Mikie Hardwick APRN,[employer] [facility] P: [phone] / F: [phone] documented in this encounterCleveland Clinic [facility]02-12-2025 Telephone encounter Note * Telephone Encounter - Mony Laboy - 04/21/2024 1:21 PM EST CALLED PATIENT SPOKE TO DAUGHTER AND SPENSER THEY BOTH CONFIRMED 04/27/24 IS A GOOD DAY PATIENT IS ON THE SCHEDULE Mony Laboy [facility]02-12-2025 Miscellaneous Notes* Telephone Encounter - Mony Laboy - 04/21/2024 1:21 PM EST CALLED PATIENT SPOKE TO DAUGHTER AND SPENSER THEY BOTH CONFIRMED 04/27/24 IS A GOOD DAY PATIENT IS ON THE SCHEDULE Mony Laboy documented in this encounterCleveland Clinic [facility]02-11-2025 Telephone encounter Note * Telephone Encounter - Aj Graham APRN.CNP - 04/20/2024 4:14 PM EST Can you set up a VV for this pt this week so we can discuss her issue? Thanks. [facility] Work Phone: [phone]) 961-640602-11-2025 Miscellaneous Notes* Telephone Encounter - Aj Graham APRN.CNP - 04/20/2024 4:14 PM EST Can you set up a VV for this pt this week so we can discuss her issue? Thanks. documented in this encounterC[facility]02-11-2025 Telephone encounter Note * Telephone Encounter - Thony Ta - 04/20/2024 2:01 PM EST Patient would like a call to discuss progress on her SCS procedure. She has not heard from anyone. Thony Ta [facility]02-11-2025 Miscellaneous Notes* Telephone Encounter - Thony Ta - 04/20/2024 2:01 PM EST Patient would like a call to discuss progress on her SCS procedure. She has not heard from anyone. Thony Ta documented in this encounterCleveland [facility]02-10-2025 Telephone encounter Note * Telephone Encounter - Kelle Joyce MA - 04/19/2024 10:49 AM EST Prescription Refill Information The patient has been identified by name and date of : Yes Caregiver verified no other encounters exist for this prescription request: Yes Caregiver confirmed with patient/requestor that no other refills are due, in the near future, with this provider at this time: Yes The last office visit in the department: 03/2024 Does the patient have a future office visit with this provider/department: Yes Requested Prescriptions Pending Prescriptions Disp Refills pravastatin (PRAVACHOL) 20 mg tablet 90 tablet 1 Sig: Take 1 tablet by mouth daily at bedtime. Kelle Joyce MA April 19, 2024 10:49 AM [facility]02-10-2025 Miscellaneous Notes* Telephone Encounter - Kelle Joyce MA - 04/19/2024 10:49 AM EST Prescription Refill Information The patient has been identified by name and date of : Yes Caregiver verified no other encounters exist for this prescription request: Yes Caregiver confirmed with patient/requestor that no other refills are due, in the near future, with this provider at this time: Yes The last office visit in the department: 03/2024 Does the patient have a future office visit with this provider/department: Yes Requested Prescriptions Pending Prescriptions Disp Refills pravastatin (PRAVACHOL) 20 mg tablet 90 tablet 1 Sig: Take 1 tablet by mouth daily at bedtime. Kelle Joyce MA April 19, 2024 10:49 AM documented in this encounterCleveland Clinic [facility]02-04-2025 Instructions* Patient Instructions* Aj Graham APRN.CNP - 04/13/2024 4:16 PM EST Ice and heat as tolerated Activity as tolerated documented in this encounterCleveland Clinic [facility]02-04-2025 NoteHNO ID: [id number] Author: AJ GRAHAM APRN.CNP Service: ? Author Type: Nurse Practitioner Type: Progress Notes Filed: 04/13/2024 16:16 Note Text: VIRTUAL VISIT PROGRESS NOTE This is a virtual visit using [employer] Zoom Video Visit. It required patient-provider interaction for the medical decision making as documented below. I have communicated my name and active licensure. The patient's identity and physical location were verified at the time of this visit. Either the patient or their legal telemarketing representative has been informed of the risks and benefits of -- and alternatives to -- treatment through a remote evaluation and consents to proceed with the evaluation remotely. 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, Pertinent Past Surgeries: Lumbar interbody fusion L3-4 (2020), Lumbar fusion (2012), Plan at last visit: (Seen on 10/16/2023 by Aj Graham CNP) Medications: Requested Prescriptions No prescriptions requested or ordered in this encounter Lyrica 50mg BID - restart Interventional Procedures: Epidural Steroid Injection - Transforaminal Approach (TFESI) under fluoroscopic guidance LEFT-SIDED at S1 and L5-S1 Supervisor Frame Sample And Pattern Needed: Epidural - YES Anticoagulant - Hold Needed: N/A (Not currently on Anticoagulants) Anticoagulant - Currently Taking: None Allergies (relevant): None Scheduling - Mobility (Can Patient independently transfer on/off an OR or Procedure table?): YES (May schedule at any location) Scheduling - Additional Info: None Studies: None Functional Yarsani: Physical Therapy Consultation (Land-Based) Referrals: No additional considerations at present Follow-up: 2 months Depending on response to the above plan, consider: SCS discussion, titrate Lyrica Interval History: Overall pain and functional disability since last visit: Better New Complaints since last visit: No Patient is here today to discuss relief from injections. Patient had on 01/30/2020 for a caudal injection reporting no relief. Patient stating on 03/23/2024 she had a transforaminal epidural steroid injection from L2-L3 with 90% relief for about 10 days however, the pain went down to 20% at the most now. Patient continues to have pain with radicular symptoms. Patient has been cleared by psychiatry and has had imaging to proceed with the spinal cord stimulator. Patient wants to try to see if we can schedule for the SCS trial. PAIN DESCRIPTION: Timing: Constant Character: Aching, Dull Primary Location: left knee Radiation: lateral thigh and gomez, occasionally low back Exacerbating factors: Standing, Walking Relieving factors: Sitting, Lying Down Interferes with: walking (uses a walker) Current Pain Medications: Neuropathics: Pamelor 75mg qHS for sleep NSAIDS: Naproxen 500mg BID PRN Muscle Relaxants: Topicals: Other Prescription or OTC Pain Medications: Opioids (when applicable): No question data found. Anti-depressants or Mood-Stabilizers: None Anti-Coagulants: None Therapies Attended (Current or Most Recent): [facility] Physical Therapy 04/17/2023 12/11/2023 AG SPINE COMBINATION Questionnaire GREENLIGHT Completed Date 04/17/2023 Completed Date 12/11/2023 Comments NIDHI Questionnaire Opiod Risk Tool Completed Date 04/17/2023 Comments 0 No question data found. (All drug screens are appropriate unless indicated otherwise) Notable Events During Course of Treatment: 04/15/2023 - Initial HPI (Obtained by Jackson Sumner M.D.). DURATION AND ONSET: The pain complaint has been present for approximately 40 years. The pain had a gradual onset. The mechanism of injury is unknown. RED FLAG SYMPTOMS: denies red flags. She saw her spine surgeon, who advised non-op management. She reports she had low back pain and left lower limb radicular symptoms that responded to surgery both times. She developed new onset low back pain and the left lower limb pain one month ago suddenly. She saw Dr. Gomez in 2012, did TFESI at L2-3 x 2, does not recall results. Treatment History: PAIN PROCEDURES: DATE PROCEDURE IMPROVEMENT 03/23/2024 TFESI L2-L3 90% 20 (more content not included)...[facility]02-04-[facility] History of Present illness Narrative* Aj Graham APRN.[employer] - 04/13/2024 3:53 PM EST Images from the original note were not included. VIRTUAL VISIT PROGRESS NOTE This is a virtual visit using [employer] Zoom Video Visit. It required patient- provider interaction for the medical decision making as documented below. I have communicated my name and active licensure. The patient's identity and physical location wereverified at the time of this visit. Either the patient or their legal telemarketing representative has been informed of the risks and benefits of -- and alternatives to -- treatment through a remote evaluation andconsents to proceed with the evaluation remotely. [facility] Today's Date: 04/13/2024 Name: Spenser Putnam : 1940 Purpose: Follow-up Patient Evaluation - This is an established patient, returning today for continued evaluation and management of the chief complaint noted below Chief complaint: Spinal stenosis of lumbar region Pertinent Past Medical History: Insomnia, RLS, Carpal tunnel - left, HLD, HTN, Valvular heart disease, Raynaud's phenomenon, H/O other malignant neoplasm of skin, Lumbar disc herniation, DJD of sternoclavicular joint, 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, Pertinent Past Surgeries: Lumbar interbody fusion L3-4 (2020), Lumbar fusion (2012), Plan at last visit: (Seen on 10/16/2023 by Aj Graham CNP) Medications: Requested Prescriptions No prescriptions requested or ordered in this encounter Lyrica 50mg BID - restart Interventional Procedures: Epidural Steroid Injection - Transforaminal Approach (TFESI) under fluoroscopic guidance LEFT-SIDEDat S1 and L5-S1 Supervisor Frame Sample And Pattern Needed: Epidural - YES Anticoagulant - Hold Needed: N/A (Not currently on Anticoagulants) Anticoagulant - Currently Taking: None Allergies (relevant): None Scheduling - Mobility (Can Patient independently transfer on/off an OR or Procedure table?): YES (May schedule at any location) Scheduling - Additional Info: None Studies: None Functional Yarsani: Physical Therapy Consultation (Land-Based) Referrals: No additional considerations at present Follow-up: 2 months Depending on response to the above plan, consider: SCS discussion, titrate Lyrica Interval History: Overall pain and functional disability since last visit: Better New Complaints since last visit: No Patient is here today to discuss relief from injections. Patient had on 01/30/2020 for a caudal injection reporting no relief. Patient stating on 03/23/2024 she had a transforaminal epidural steroid injection from L2-L3 with 90% relief for about 10 days however, the pain went down to 20% at the mostnow. Patient continues to have pain with radicular symptoms. Patient has been cleared by psychiatryand has had imaging to proceed with the spinal cord stimulator. Patient wants to try to see if we can schedule for the SCS trial. PAIN DESCRIPTION: Timing: Constant Character: Aching, Dull Primary Location: left knee Radiation: lateral thigh and gomez, occasionally low back Exacerbating factors: Standing, Walking Relieving factors: Sitting, Lying Down Interferes with: walking (uses a walker) Current Pain Medications: Neuropathics: Pamelor 75mg qHS for sleep NSAIDS: Naproxen 500mg BID PRN Muscle Relaxants: Topicals: Other Prescription or OTC Pain Medications: Opioids (when applicable): No question data found. Anti-depressants or Mood-Stabilizers: None Anti-Coagulants: None Therapies Attended (Current or Most Recent): [facility] Physical Therapy 04/17/2023 12/11/2023 AG SPINE COMBINATION Questionnaire GREENLIGHT Completed Date 04/17/2023 Completed Date 12/11/2023 Comments NIDHI Questionnaire Opiod Risk Tool Completed Date 04/17/2023 Comments 0 No question data found. (All drug screens are appropriate unless indicated otherwise) Notabl e Events During Course of Treatment: 04/15/2023 - Initial HPI (Obtained by Jackson Sumner M.D.). DURATION AND ONSET: The pain complaint has been present for approximately 40 years. The pain had a gradual onset. The mechanism of injury is unknown. RED FLAG SYMPTOMS: denies red flags. She saw her spine surgeon, who advised non-op management. She reports she had low back pain and left lower limb radicular symptoms that responded to surgery both times. She developed new onset low back pain and the left lower limb pain one month ago suddenly. She saw Dr. Gomez in 2012, did TFESI at L2-3 x 2, does not recall results. Treatment History: PAIN PROCEDURES: DATE PROCEDURE IMPROVEMENT 03/23/2024 TFESI L2-L3 90% 20 % 01/30/2024 Caudal No relief 11/21/2023 L TFESI L5-S1 50% 08/06/2023 RFA Left Knee (Genic N.) 80% (10/16/2023 ) 05/26/2023 L knee CSI <10 04/30/2023 L TFESI L4-S1 >50% MEDICATIONS Taken TO DATE (for the chief complaint(s)): Neuropathics: Neurontin (Gabapentin), Lyrica (Prebabalin), Pamelor (Nortriptyline), Elavil (Amitriptyline) NSAIDS: Naprosyn (Naproxen), Mobic (Meloxicam) Muscle Relaxants: None Topicals: None Other Prescription or OTC Pain Medications: Aspirin Opioids: Tramadol, Oxycodone (eg Percocet) Data Reviewed Today: Allergies: ALLERGIES Allergen Reactions Sulfa (Sulfonamide * Swelling, Anaphylaxis Tongue/ throat swelled Phenergan Plain Vomiting Vomiting Hydrocodone-Acetami* GI Upset NAUSEA Procardia [Nifedipi* Swelling legs Social History Tobacco Use Smoking status: Never Smokeless tobacco: Never Vaping Use Vaping status: Never Used Substance Use Topics Alcohol use: Yes Alcohol/week: 3.9 standard drinks of alcohol Types: 3 Mixed Drinks per week Comment: 3-4/week Drug use: No 03/23/2024 04/12/2024 INTAKE PAIN ASSESSMENT Are you having pain associated with your visit today? Yes, Provider notified Yes, Provider notified Pain Scales Verbal (Numeric Rating or Visual Analog Scale) Pain Level 8 6 Pain Location Leg-Left Leg-Right Description Throbbing;Tingling Aching Duration Amount of Time 8 Duration Units Years Months Frequency Continuous Continuous Intervention/Comfort measure Medication;Reposition;Relaxation;Heat Heat;Positioning Compliance: PDMP website checked and validated on 04/13/2024 by Aj Graham APRN.[employer] All prescriptions have been APPROPRIATELY filled. No suspicious activity was identified. 04/17/2023 12/11/2023 AG SPINE COMBINATION Questionnaire GREENLIGHT Completed Date 04/17/2023 Completed Date 12/11/2023 Comments NIDHI Questionnaire Opiod Risk Tool Completed Date 04/17/2023 Comments 0 (All drug screens are appropriate unless indicated otherwise) Risk Assessment: EVI-7: 04/17/2023 12/31/2023 EVI - 7 SCORES Score 0 9 (0-4) minimal anxiety, (5-9) mild anxiety, (10-14) moderate anxiety, (15-21) severe anxiety PHQ-9: 10/17/2021 04/17/2023 12/31/2023 PHQ-9 Score 5 0 6 (0-4) minimal depression, (5-9) mild depression, (10-14) moderate depression, (15-19) moderately severe depression, (20-27) severe depression Diagnostic Studies: Relevant Imaging: MRI Spine Report MRI THORACIC SPINE WO IVCON Exam End: 01/17/2024 1:01 PM (Final result) Narrative: * * *Final Report* * * DATE OF EXAM: Jan 17 2024 1:01PM [facility] 0325 - MRI THORACIC SPINE WO IVCON / PROCEDURE REASON: Pain in thoracic spine * * * * Physician Interpretation * * * * EXAMINATION: MRI THORACIC SPINE WO IVCON CLINICAL HISTORY: Pain in thoracic spine, chronic. TECHNIQUE: Routine thoracic spine MR protocol. MQ: [id number] COMPARISON: None. RESULT: Counting reference: Craniocervical and lumbosacral junctions. For the purposes of this report, L4-5 is considered the level of the iliac crest and assume there are 5 lumbar-type vertebrae. Anatomic variant: None. Localizer images: Discectomies and posterior fusion at L3-L5. Alignment: Accentuation of normal thoracic kyphosis. Cord: The visualized cord is within normal limits of signal intensity and morphology. Conus terminates at L1 and is normal in morphology and signal. Bone marrow signal/fracture: Type II endplate changes adjacent to T7-T8 No evidence of pathologic marrow infiltration. Small Schmorl's nodule on the current plate of T3 moderate loss of disc height at T7-T8 reflecting degeneration. Thoracic paraspinal soft tissues: The paraspinal soft tissues are within normal limits. Canal and foramina: The thoracic canal and foramina are patent. Impression: IMPRESSION: Canal and foramina are patent. Mild degenerative disc disease at T7-T8. Anatomic Thoracic/Lumbar Variant: None. L4-5 is considered the level of the iliac crest and assume there are 5 lumbar-type vertebrae. Ring Facer: DARRYL Transcribe Date/Time: Jan 17 2024 1:14P Dictated by : KELLY FERNANDEZ MD This examination was interpreted and the report reviewed and electronically signed by: KELLY FERNANDEZ MD on Jan 17 2024 1:18PM EST X-ray Lumbar 03/2023 RESULT: 5 nonrib-bearing lumbar-type vertebrae. For numbering purposes, L4-5 is at the level of the iliac crest. Pedicle plate and screw device transfixes L4 and L5. No evidence of fracture or loosening. Disc spacer at L3-4 with hardware fixation. Mild grade 1 spondylolisthesis of L4 on L5, and L5 on S1. Moderate to severe disc space narrowing at L2-3 with vacuum phenomenon. Osteopenia. SI joints appear unremarkable IMPRESSION: DEGENERATIVE, POSTOPERATIVE CHANGE AND ALIGNMENT ABNORMALITIES DESCRIBED X-ray Rt. Hip 02/2023 RESULT: Bony mineralization within normal limits. Mild to moderate degenerative narrowing and bony spurring at the right hip joint. No acute fracture or dislocation is seen at the right hip. Lower lumbar fusion hardware from L3 to L5 IMPRESSION: Mild to moderate degenerative change with prominent spurring at the right hip similar to the previous MRI Lumbar 11/2020 Electrodiagnostic Study (EMG): 08/17/2020- Recent Labs: Creatinine Date Value Ref Range Status 11/28/2023 0.99 (H) 0.58 - 0.96 mg/dL Final eGFR, Date Value Ref Range Status 11/06/2012 >60 Final No results found for: PCGLUCOSE Current Medications, Past Medical History, Past Surgical History, Family History, Social History and Review of Systems: On today's date, noted above, I have confirmed and edited as necessary, the PFSH and ROS obtained by others. Physical Exam: There were no vitals filed for this visit. REVIEW OF SYSTEMS: GENERAL: feeling well without fatigue, no recent change in weight HEENT: denies GOOD, change in hearing or vision, no other ENT complaints NECK: denies swelling or pain in neck RESPIRATORY: no cough, no wheezing or shortness of breath CARDIOVASCULAR: no chest pain, no palpitations MUSCULOSKELETAL: low back pain SKIN: no rash PSYCH: denies depressed or anxious mood, sleep is normal NEURO: no numbness or paresthesias and no weakness of the extremities PHYSICAL EXAMINATION: VIDEO EXAM: (if completed, performed via video enabled technology) GENERAL: alert and appropriate, in no distress, well-hydrated, well nourished, and happy, smiling, interactive SKIN: no rash noted HEAD: normocephalic, no abnormality or lesion noted EYES: no injection and visual acuity is grossly normal EARS: hearing grossly normal NOSE: external nose normal without rhinorrhea NECK: full ROM, no cervical LNs noted RESPIRATORY: breathing non-labored CHEST: equal chest rise with normal respiratory effort HEART: no obvious deficit BACK: decrease ROM of lumbar spine due to pain EXTREMITIES: no obvious deficit NEUROLOGIC: no obvious deficit IMPRESSION: 83 year old female presents with complaint(s) of recurrent low back pain and left lowerlimb radicular symptoms in a predominantly L5 dermatomal distribution. She has prior fusion at L4-5, with central canal stenosis at L3-4. Patient received minimal relief from the recent injections. We will schedule the patient for the spinal cord stimulator trial. Diagnoses:(M54.16) Lumbar radiculopathy (primary encounter diagnosis) (M48.061) Spinal stenosis, lumbar region, without neurogenic claudication (M47.816) Lumbar spondylosis PLAN: Spenser Putnam would benefit from the following to reach personal goals for decreasing pain, improving function and work participation, and/or improving quality of life: Medications: Requested Prescriptions No prescriptions requested or ordered in this encounter Interventional Procedures: SCS trial was already ordered and in chart Studies: MRI: Thoracic Spine and lumbar spine are complete Functional Yarsani: Patient reporting she did physical therapy which did not help pain. Referrals: Psych eval Has been completed. Follow-up:Patient is scheduled with Dr. Roca for spinal cord stimulator. Depending on response to the above plan, consider: SCS Compliance and Clinic Policies Reviewed and/or Discussed Today: None Attribution: In addition to reviewing the information noted above, some elements copied from my most recent clinical note(s), including the physical exam (completed in entirety today), and the impression and plan sections, have been updated where appropriate. All reflect current medical decision making from today's date. Aj Graham APRN.[facility] documented in this encounterC[facility] Miscellaneous Notes* Telephone Encounter - Kelle Joyce MA - 04/05/2024 10:34 AM EST Prescription Refill Information The patient has been identified by name and date of : Yes Caregiver verified no other encounters exist for this prescription request: Yes Caregiver confirmed with patient/requestor that no other refills are due, in the near future, with this provider at this time: Yes The last office visit in the department: 03/2024 Does the patient have a future office visit with this provider/department: Yes Requested Prescriptions Pending Prescriptions Disp Refills potassium chloride 20 mEq TbER Sig: Take 1 tablet by mouth once daily. Kelle Joyce MA April 05, 2024 10:34 AM documented in this encounterC[facility] Telephone encounter Note * Telephone Encounter - Kelle Joyce MA - 04/05/2024 10:34 AM EST Prescription Refill Information The patient has been identified by name and date of : Yes Caregiver verified no other encounters exist for this prescription request: Yes Caregiver confirmed with patient/requestor that no other refills are due, in the near future, with this provider at this time: Yes The last office visit in the department: 03/2024 Does the patient have a future office visit with this provider/department: Yes Requested Prescriptions Pending Prescriptions Disp Refills potassium chloride 20 mEq TbER Sig: Take 1 tablet by mouth once daily. Kelle Joyce MA April 05, 2024 10:34 AM [facility]01-16-2025 Telephone encounter Note* Telephone Encounter - Rosalba Arriaga LPN - 03/25/2024 1:57 PM EST Attempted to call patient to follow-up from procedure, no answer. Message left to return call with any questions or concerns. Rosalba Arriaga LPN [facility]01-16-2025 Miscellaneous Notes* Telephone Encounter - Rosalba Arriaga LPN - 03/25/2024 1:57 PM EST Attempted to call patient to follow-up from procedure, no answer. Message left to return call with any questions or concerns. Rosalba Arriaga LPN documented in this encounterC[facility]01-14-2025 NoteHNO ID: [id number] Author: SARAVANAN JUAREZ LPN Service: ? Author Type: LICENSED NURSE Type: Progress Notes Filed: 03/28/2024 09:06 Note Text: Order has been placed in the patient's chart with the following parameters for discharge from the physician: Patient is alert and oriented Vitals: Diastolic/Systolic +/- 20mmHg Respirations: 12-18 Pulse: 60-100 SpO2 is greater than or equal to 90% Patient has no nausea or vomiting Patient has no dizziness Pain level is +/- 2 from initial evaluation Dressing, dry and intact with no evidence of bleeding Criteria has been met, patient is okay to be discharged per the physician. Physician has gone in and evaluated the patient. Dressing dry and intact. No drainage noted. The patient denies nausea, numbness, tingling, weakness, shortness of breath, dizziness, or headache. Pain level 0/10. Vital signs within normal limits. Patient denied needing walked out by clinical staff and denied needing a wheelchair. Patient given discharge instructions and sent to transportation via ambulatory method. Patient left in good condition.[facility]01-14-2025 History of Present illness Narrative* Saravanan Juarez LPN - 03/23/2024 2:53 PM EST Order has been placed in the patient's chart with the following parameters for discharge from the physician: Patient is alert and oriented Vitals: Diastolic/Systolic +/- 20mmHg Respirations: 12-18 Pulse: 60-100 SpO2 is greater than or equal to 90% Patient has no nausea or vomiting Patient has no dizziness Pain level is +/- 2 from initial evaluation Dressing, dry and intact with no evidence of bleeding Criteria has been met, patient is okay to be discharged per the physician. Physician has gone in and evaluated the patient. Dressing dry and intact. No drainage noted. The patient denies nausea, numbness, tingling, weakness, shortness of breath, dizziness, or headache. Pain level 0/10. Vital signs within normal limits. Patient denied needing walked out by clinical staff and denied needing a wheelchair. Patient given discharge instructions and sent to transportation via ambulatory method. Patient left in good condition. * Rosalba Arriaga LPN - 03/23/2024 2:02 PM EST Procedure to be performed: L2/L3 Bilateral Transforaminal Epidural Steroid Injection Patient was wheeled on stretcher from pre op bay to procedure room and assisted onto the procedure tablePatient s procedure was performed in an [facility] Procedure room. Pause completed at each level by provider to verify correct level and laterality placement Pressure was applied to patient s injection site(s) and bleeding was minimal. Patient had no complaint of shortness of breath, dizziness, headache, numbness, tingling, weakness or complications from procedure. Patient was assisted from the procedure table onto the stretcher and wheeled into a post op bay. Patient was advised a clinician will be to obtain another set of vitals. Time Out: 1429 Confirmed patient name, date of , procedure site, laterality, and allergies Procedure Start: 1431 Procedure End: 1447 * Danii Roca MD, PhD - 03/23/2024 1:40 PM EST [facility] Date: 03/23/2024 Patient name: Spenser Putnam Physician performing procedure: Danii Roca MD, PhD Procedure: Epidurals Transforaminal Epidural Steroid Injection (TFESI)- 2 Level or Bilateral under fluoroscopic guidance Levels Treated: Bilateral L2-3 Neural Foramen Approach: Bilateral Oblique Injectate: A total of 6 ml, consisting of 1.5 ml of Dexamethasone (10mg/cc) and 4.5ml of 1% Lidocaine (3ml per site) Improvement after today's procedure: as per nursing report Diagnosis: (M54.16) Lumbar radiculopathy (primary encounter diagnosis) (M48.061) Spinal stenosis, lumbar region, without neurogenic claudication Comments: None HPI: Spenser Putnam is an 83 year old FEMALE who presents today for an elective transforaminal epidural steroid injection. 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 Pt has complaint(s) of recurrent low back pain and left lower limb radicular symptoms in a predominantly L5 dermatomal distribution, however repeat MRI L- spine shows evidence of lumbar spinal stenosis (MRI L-spine 2023 notable for moderate to severe L2-3, mild to moderate L3-4 central canal stenosis) and lumbar NF stenosis (mild to moderate L L2-3 and mild R L2-3 NF stenosis, moderate bilateral NF stenosis at L3-4, mild to moderate L and mild R NF stenosis at L5-S1) in setting of known multilevel listhesis. Patient has evidence of moderate to severe L2-3 central canal stenosis as well as moderate L3-4 central stenosis in the setting of adjacent segment disease from her prior L3-5 laminectomy and posterior fusion. She reports significant symptoms of neurogenic claudication, as well as significant left L5 dermatomal distribution of pain. She has had limited relief from left L4-5 and L5-S1 transforaminal SHERMAN as well as left L5-S1 and S1 transforaminal SHERMAN's, and was not recommended further surgical intervention. Due to the above she was recommended to complete workup for SCS evaluation. Patient was recommended trialing a caudal SHERMAN for her radicular symptoms to assess if particulate steroid may provide her more long-lasting benefit. She would further benefit from bilateral L2-3 transforaminal SHERMAN's to target the mostsevere portion of her central canal stenosis at the L2-3 level. If these fail to provide benefit, plan was made to proceed with a SCS trial in preparation for implant. Patient otherwise denies fevers, chills, weakness, saddle anesthesia, bowel or bladder incontinenceor recent antibiotic or anticoagulant use. Review of Systems: Pertinent Positives: MSK: pain in the region being treated Neuro: No weakness or numbness in the region being treated Skin: Negative (No itching) Eyes: Negative (No blurred or double vision) Respiratory: Negative (No Cough, [id number], Dyspnea on exertion, wheezing) Cardiovascular: Negative (No Chest Pain, Tightness, Pressure, Palpitations) Gastrointestinal: Negative (No Abdominal pain, Nausea, Vomiting, Constipation, Diarrhea) Genitourinary: Negative (No dysuria) Hematologic: Negative (No bleeding, bruising) OB: is Denied or Not Applicable Endocrine: Negative (No hot/cold intolerance) Psychiatric: Negative (No depression, anxiety or suicidal ideation) ALLERGIES Allergen Reactions Sulfa (Sulfonamide * Swelling, Anaphylaxis Tongue/ throat swelled Phenergan Plain Vomiting Vomiting Hydrocodone-Acetami* GI Upset NAUSEA Procardia [Nifedipi* Swelling legs Current Outpatient Medications on File Prior to Visit Medication Sig rOPINIRole (REQUIP) 4 mg tablet Take 1 tablet by mouth daily at bedtime. spironolactone (ALDACTONE) 50 mg tablet Take 1 tablet by mouth once daily. celecoxib (CELEBREX) 200 mg capsule Take 1 capsule by mouth once daily. (Patient not taking: Reported on 01/30/2024) nortriptyline (PAMELOR) 75 mg capsule Take 1 capsule by mouth daily at bedtime. diclofenac potassium (CATAFLAM) 50 mg tablet Take 1 tablet by mouth two times a day. Magnesium 250 mg tab Take 1 tablet by mouth once daily. lisinopril (ZESTRIL) 10 mg tablet Take 1 tablet by mouth once daily. cholecalciferol, vitamin D3, (VITAMIN D3 ORAL) Take by mouth. cyanocobalamin (VITAMIN B-12) 1,000 mcg tab Take 1 tablet by mouth once daily. pregabalin (LYRICA) 50 mg capsule Take one pill twice daily pravastatin (PRAVACHOL) 20 mg tablet Take 1 tablet by mouth daily at bedtime. potassium chloride 20 mEq TbER Take 1 tablet by mouth once daily. colchicine 0.6 mg tablet Take one tab by mouth 3 times a day till pain stops or script finished. ammonium lactate (LAC-HYDRIN) 12 % cream Apply to affected area as needed. aspirin, enteric coated (ADULT LOW DOSE ASPIRIN) 81 mg EC tablet Take 1 tablet by mouth once daily. calcium carbonate(CALTRATE 600 600 MG (1,500 MG) TAB) DAILY MULTIVITAMIN TAB Take by mouth. No current facility-administered medications on file prior to visit. 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 Macias, Rt anterior shoulder, Gilberto III, pT1a, pNX, pM N/A Mixed hyperlipidemia 10/13/2014 Multiple thyroid nodules 09/15/2017 CT neck09/2017 7 mm nodule, US .2018 multiple small nodules repeat 09/2019 Non morbid obesity 03/29/2016 Osteopenia, senile 07/02/2005 SEE DEXA 07/15 Other chronic dermatitis due to solar radiation 03/27/2006 Other psoriasis 04/16/2013 Other seborrheic keratosis 06/23/2006 Personal history of other malignant neoplasm of skin 03/22/2013 Raynaud's phenomenon without gangrene 06/07/2020 suspected Restless leg syndrome Sensorineural hearing loss, asymmetrical 10/08/2017 Solar lentigo 03/22/2013 Spinal stenosis of lumbar region 06/17/2023 Spinal stenosis, lumbar region, without neurogenic claudication 07/25/2023 Spondylolisthesis at L5-S1 level 10/20/2012 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 09/15/2012 Vertigo 12/03/2021 MRI normal and patient declined further eval as of 12/03/21 Vitamin B12 deficiency 11/09/2023 Vitamin D deficiency 08/24/2016 Xerosis cutis 03/22/2013 PAST SURGICAL HISTORY Procedure Laterality Date ABDOMINAL SURGERY HX BACK SURGERY HX 01/23/2021 lateral lumbar interbody fusion L3-4 CHOLECYSTECTOMY age 52 +/- laparoscopic cholecystectomy COLONOSCOPY 04/29/2013 Dr. Patton, repeat 5 yrs COLONOSCOPY FLX DX W/COLLJ SPEC WHEN PFRMD 07/09/2006 COLONOSCOPY FLX DX W/COLLJ SPEC WHEN PFRMD 04/29/2013 internal hemorrhoids, q5y for FHx COLONOSCOPY, GI 05/02/2000 FHx, repeat q5y DILATION & CURETTAGE DX&/THER NONOBSTETRIC Dilation & curettage EYE SURGERY HX PAST SURGICAL HISTORY OF 12/2011 squamous cell CA rt hand.left LE PAST SURGICAL HISTORY OF 04/2012 rt CTR-- endoscopic PAST SURGICAL HISTORY OF 2012 lumbar surgery- fusion PAST SURGICAL HISTORY OF 2013 excision melanoma right shoulder PAST SURGICAL HISTORY OF Right 2017 bunionectoy TONSILLECTOMY HX TONSILLECTOMY PRIMARY/SECONDARY <AGE 12 childhood Tonsillectomy FAMILY HISTORY Problem Relation Age of Onset Colon Cancer Mother ~70 Hypertension Mother Thyroid Mother Colon Cancer Father ~70 Hypertension Father Stroke Father Heart Father Hx of CHF Coronary Artery Disease Maternal Grandmother Hx of HI Diabetes Daughter Type I Social History Tobacco Use Smoking status: Never Smokeless tobacco: Never Vaping Use Vaping status: Never Used Substance Use Topics Alcohol use: Yes Alcohol/week: 3.9 standard drinks of alcohol Types: 3 Mixed Drinks per week Comment: 3-4/week Drug use: No Attestation Information obtained by others were confirmed and edited as necessary on 03/14/2024 by Danii Roca MD, PhD. Objective Exam: Vitals: As per nursing documentation Constitutional: Normal Appearance, Oriented to Time, Place and Person Head: No lacerations, no external signs of trauma Eyes: Conjunctiva clear. No discharge from the eyes Cardiovascular: Appears well-perfused Pulmonary: Non-labored respirations Abdominal: Non-distended Skin: No visible rashes or ecchymosis Psychiatric: Mood appropriate for given condition Neurological: no focal deficits, gross movements are limited by pain, but otherwise unremarkable Data Reviewed: Nursing note and vitals reviewed. Additional imaging reviewed as appropriate Assessment and Plan: We discussed their current plan and the pathology responsible for the patient's pain. Specific counseling related to the procedure was provided regarding the risks, benefits and alternatives. The patient wishes to proceed with the plan as noted above. Encounter Diagnosis ICD-10-CM 1. Lumbar radiculopathy M54.16 INJ TRANSFORAMINAL EPID ANES/STER LS SINGL iohexol 300 mg injection (OMNIPAQUE 300) lidocaine (PF) 10 mg/mL (1 %) 100 mg injection (XYLOCAINE) dexAMETHasone sodium phosphate 10 mg injection (DECADRON) 2. Spinal stenosis, lumbar region, without neurogenic claudication M48.061 INJ TRANSFORAMINAL EPID ANES/STER LS SINGL iohexol 300 mg injection (OMNIPAQUE 300) lidocaine (PF) 10 mg/mL (1 %) 100 mg injection (XYLOCAINE) dexAMETHasone sodium phosphate 10 mg injection (DECADRON) UNIVERSAL PROTOCOL / SAFETY CHECKLIST Procedure to be Performed: as stated above Sign In: A Moment of CARE was completed. Personnel directly involved with the procedure wore the appropriate PPE (Personal Protective Equipment). Patient/Surrogate Stated/Verified: PATIENT VERIFIED(optional for EMERGENT procedures): Patient name, Date of , Relevant allergies and The intended procedure Time Out Communication: Intended patient and procedure match the source documents. Consent documented and matches the intended procedure. Relevant labs, photos, and/or imaging studies have been reviewed. Medications required for procedure verified. Sign Out: SIGN OUT (optional for EMERGENT procedures): No specimen collected. Time out to confirm patient name, date of , procedure site, laterality, and allergies performed by physician. Please see nursing note for exact times (time out, procedure start, procedure end). [place] protocol documentation / Pre-Procedure checklist: Unless stated otherwise in the procedure note, the risks include but are not limited to infection, allergic reaction, increased pain, lack of therapeutic benefit, steroid reaction, nerve damage, paralysis, stroke, epidural hematoma, syncope, headache, respiratory or cardiac arrest, pneumothorax, and scar formation Time Out was led by the physician in the procedure room, with the patient and all staff present andparticipating The following information was verified: name, date of , procedure site (marked), laterality, anticoagulants and allergies [place] protocol documentation / Pre-Procedure Checklist: Consent: Obtained in writing prior to procedure Unless stated otherwise in the procedure note, the risks include but are not limited to infection, allergic reaction, increased pain, lack of therapeutic benefit, steroid reaction, nerve damage, paralysis, stroke, epidural hematoma, syncope, headache, respiratory or cardiac arrest, pneumothorax, and scar formation Once the plan was agreed upon, the patient gave written consent to proceed and was transported intothe procedure room Surgical/Procedure pause or Time Out : Time Out was led by the physician in the procedure room, with the patient and all staff present andparticipating The following information was verified during the Time Out process: Patient name, patient date of , procedure site (marked), laterality, anticoagulants and allergies Anticoagulants: reviewed with patient, notable for: none DESCRIPTION OF PROCEDURE: The patient was brought to the procedure room and placed in the prone position on the fluoroscopy table after informed consent was signed and all patient questions were answered including the risks, benefits, alternative treatment options, and prognosis. The risks are as mentioned above, except for pneumothorax. The lumbosacral area was prepped and draped in the usual sterile fashion using Chloroprep and a fenestrated drape. The above-mentioned neural foramen were sequentially injected using the following technique: The C-arm was positioned so that an oblique view of the neural foramen as noted above was visualized. The skin and subcutaneous tissue along the intended needle trajectories were anesthetized with 2 ml of 1% Lidocaine. Once adequate skin anesthesia was achieved, a 22-gauge 3.5 inch Quincke spinal needle was advanced toward the target neural foramen using a trajectory view along the fluoroscope beam. Under AP and lateral visualization, the needle was advanced so as to not puncture dura, and biplanar projections were used to confirm needle position. Once the desired needle tip location was achieved, the needles were aspirated and were negative for blood and CSF. Following this, a total of 1-2mL of Omnipaque contrast was injected under live fluoroscopy and showed appropriate epidural spread without intravascular or intrathecal uptake. After negative aspiration, the above noted injectate was administered at this level, and the needle was withdrawn. Attention was then turned to the second level mentioned above. The C-arm was positioned so that an oblique view of the neural foramen noted above was visualized. The skin and subcutaneous tissue along the intended needle trajectories were anesthetized with 2 ml of 1% Lidocaine. Once adequate skin an esthesia was achieved, a 22-gauge 3.5 inch Quincke spinal needle was advanced toward the target neural foramen using a trajectory view along the fluoroscope beam. Under AP and lateral visualization, the needle was advanced so as to not puncture dura, and biplanar projections were used to confirm needle position. Once the desired needle tip location was achieved, the needles were aspirated and were negative for blood and CSF. Following this, a total of 1-2mL of Omnipaque contrast was injected under live fluoroscopy and showed appropriate epidural spread without intravascular or intrathecal uptake. After negative aspiration, the above noted injectate was administered at this level, and the n eedle was withdrawn. Please see the nursing note for exact times (time out, procedure start, procedure end). After careful removal of the needle, there was minimal bleeding. The injection site was covered with appropriate sterile dressing. The patient was noted to have tolerated the procedure well and was discharged after an appropriate period of post-procedure observation. The patient was instructed to contact us if there were any complications. The patient was advised to follow-up with the requesting physician within one to two weeks or as per their requested follow-up plan. Post procedure visit summary with written instructions was offered to the patient. Danii Roca MD, PhD Pain Management [facility] * Marissa Briones LPN - 03/23/2024 1:23 PM EST Supervisor Frame Sample And Pattern's Name: larry Are you on a blood thinner: n If yes, is a hold required: n Last dose of blood thinner: n INR Result today: n Do you require a Lovenox bridge:n Are you a diabetic:n Are you/or could you be : n Are you taking Xanax for the procedure: n Are you currently on a steroid? n Are you currently on an antibiotic: n Review of Systems Constitutional: Positive for activity change. Negative for chills, fever and unexpected weight change. Gastrointestinal: Negative for bowel retention or incontinence Genitourinary: Negative for difficulty urinating. Negative for bladder retention or incontinence Musculoskeletal: Positive for back pain, gait problem and joint swelling. Negative for arthralgias,myalgias, neck pain and neck stiffness. Neurological: Negative for weakness, numbness and headaches. Psychiatric/Behavioral: Positive for sleep disturbance. Negative for dysphoric mood and suicidal ideas. The patient is not nervous/anxious. [facility] Instructions* Patient Instructions* Saravanan Juarez LPN - 03/23/2024 2:47 PM EST PROCEDURE DISCHARGE INSTRUCTIONS 03/23/2024 Spenser Putnam 1940 Physician: Danii Roca MD, PhD Procedure: Epidural Steroid Injection: Lumbar (transforaminal/Interlaminar/Caudal) Post Procedure Instructions: If sedation not given, no driving for 3 hours after the procedure., Rest the day of the procedure.,Perform activities that typically make you have pain and monitor your pain level during these activities for the next 3-4 hours., Pain should gradually subside over the next 2-3 weeks., Avoid movements that may aggravate pain., Apply cold compresses to injection site if needed., If medically acceptable, take over the counter anti-inflammatories such as ibuprofen or Aleve if needed for post procedure discomfort., and No hot baths, hot tubs or hot compresses for 24 hours. If you have any of the following signs or symptoms, please call our office at Fever and/or chills Swelling and/or drainage from injection site New pain that is different than your normal pain (other than soreness at the site of the procedure) Stiff neck Shortness of breath Severe increase in pain Motor dysfunctions, such as difficulty walking, bowel or bladder dysfunction and/or incontinence Headache that is severe, light sensitive or develops when changing positions (positional headache) Nausea and/or vomiting accompanied by headache that started 24-48 hours after the procedure If you have any emergent concerns, please call 911 or go to your local emergency room. Please also contact our office to let us know you will be seeking emergency care and why. documented in this encounterC[facility]01-[facility]25 NoteHNO ID: [id number] Author: ROSALBA ARRIAGA LPN Service: ? Author Type: LICENSED NURSE Type: Progress Notes Filed: 03/28/2024 09:06 Note Text: Procedure to be performed: L2/L3 Bilateral Transforaminal Epidural Steroid Injection Patient was wheeled on stretcher from pre op bay to procedure room and assisted onto the procedure tablePatient?s procedure was performed in an [facility] Procedure room. Pause completed at each level by provider to verify correct level and laterality placement Pressure was applied to patient?s injection site(s) and bleeding was minimal. Patient had no complaint of shortness of breath, dizziness, headache, numbness, tingling, weakness or complications from procedure. Patient was assisted from the procedure table onto the stretcher and wheeled into a post op bay. Patient was advised a clinician will be to obtain another set of vitals. Time Out: 1429 Confirmed patient name, date of , procedure site, laterality, and allergies Procedure Start: 1431 Procedure [facility] [id number] NoteHNO ID: [id number] Author: DANII ROCA MD, PhD Service: ? Author Type: Physician Type: Progress Notes Filed: 03/28/2024 09:06 Note Text: [facility] Date: 03/23/2024 Patient name: Spenser Putnam Physician performing procedure: Danii Roca MD, PhD Procedure: Epidurals Transforaminal Epidural Steroid Injection (TFESI)- 2 Level or Bilateral under fluoroscopic guidance Levels Treated: Bilateral L2-3 Neural Foramen Approach: Bilateral Oblique Injectate: A total of 6 ml, consisting of 1.5 ml of Dexamethasone (10mg/cc) and 4.5ml of 1% Lidocaine (3ml per site) Improvement after today's procedure: as per nursing report Diagnosis: (M54.16) Lumbar radiculopathy (primary encounter diagnosis) (M48.061) Spinal stenosis, lumbar region, without neurogenic claudication Comments: None HPI: Spenser Putnam is an 83 year old FEMALE who presents today for an elective transforaminal epidural steroid injection. 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 Pt has complaint(s) of recurrent low back pain and left lower limb radicular symptoms in a predominantly L5 dermatomal distribution, however repeat MRI L-spine shows evidence of lumbar spinal stenosis (MRI L-spine 2023 notable for moderate to severe L2-3, mild to moderate L3-4 central canal stenosis) and lumbar NF stenosis (mild to moderate L L2-3 and mild R L2-3 NF stenosis, moderate bilateral NF stenosis at L3-4, mild to moderate L and mild R NF stenosis at L5-S1) in setting of known multilevel listhesis. Patient has evidence of moderate to severe L2-3 central canal stenosis as well as moderate L3-4 central stenosis in the setting of adjacent segment disease from her prior L3-5 laminectomy and posterior fusion. She reports significant symptoms of neurogenic claudication, as well as significant left L5 dermatomal distribution of pain. She has had limited relief from left L4-5 and L5-S1 transforaminal SHERMAN as well as left L5-S1 and S1 transforaminal SHERMAN's, and was not recommended further surgical intervention. Due to the above she was recommended to complete workup for SCS evaluation. Patient was recommended trialing a caudal SHERMAN for her radicular symptoms to assess if particulate steroid may provide her more long-lasting benefit. She would further benefit from bilateral L2-3 transforaminal SHERMAN's to target the mostsevere portion of her central canal stenosis at the L2-3 level. If these fail to provide benefit, plan was made to proceed with a SCS trial in preparation for implant. Patient otherwise denies fevers, chills, weakness, saddle anesthesia, bowel or bladder incontinence or recent antibiotic or anticoagulant use. Review of Systems: Pertinent Positives: MSK: pain in the region being treated Neuro: No weakness or numbness in the region being treated Skin: Negative (No itching) Eyes: Negative (No blurred or double vision) Respiratory: Negative (No Cough, [id number], Dyspnea on exertion, wheezing) Cardiovascular: Negative (No Chest Pain, Tightness, Pressure, Palpitations) Gastrointestinal: Negative (No Abdominal pain, Nausea, Vomiting, Constipation, Diarrhea) Genitourinary: Negative (No dysuria) Hematologic: Negative (No bleeding, bruising) OB: is Denied or Not Applicable Endocrine: Negative (No hot/cold intolerance) Psychiatric: Negative (No depression, anxiety or suicidal ideation) ALLERGIES Allergen Reactions Sulfa (Sulfonamide * Swelling, Anaphylaxis Tongue/ throat swelled Phenergan Plain Vomiting Vomiting Hydrocodone-Acetami* GI Upset NAUSEA Procardia [Nifedipi* Swelling legs Current Outpatient Medications on File Prior to Visit Medication Sig rOPINIRole (REQUIP) 4 mg tablet Take 1 tablet by mouth daily at bedtime. spironolactone (ALDACTONE) 50 mg tablet Take 1 tablet by mouth once daily. celecoxib (CELEBREX) 200 mg capsule Take 1 capsule by mouth once daily. (Patient not taking: Reported on 01/30/2024) nortriptyline (PAMELOR) 75 mg capsule Take 1 capsule by mouth daily at bedtime. diclofenac potassium (CATAFLAM) 50 mg tablet Take 1 tablet by mouth two times a day. Magnesium 250 mg tab Take 1 tablet by mouth once daily. lisinopril (ZESTRIL) 10 mg tablet Take 1 tablet by mouth once daily. cholecalciferol, vitamin D3, (VITAMIN D3 ORAL) Take by mouth. cyanocobalamin (VITAMIN B-12) 1,000 mcg tab Take 1 tablet by mouth once daily. pregabalin (LYRICA) 50 mg capsule Take one pill twice da (more content not included)...[facility]01-14-2025 NoteHNO ID: [id number] Author: MARISSA BRIONES LPN Service: ? Author Type: LICENSED NURSE Type: Progress Notes Filed: 03/28/2024 09:06 Note Text: Supervisor Frame Sample And Pattern's Name: larry Are you on a blood thinner: n If yes, is a hold required: n Last dose of blood thinner: n INR Result today: n Do you require a Lovenox bridge:n Are you a diabetic:n Are you/or could you be : n Are you taking Xanax for the procedure: n Are you currently on a steroid? n Are you currently on an antibiotic: n Review of Systems Constitutional: Positive for activity change. Negative for chills, fever and unexpected weight change. Gastrointestinal: Negative for bowel retention or incontinence Genitourinary: Negative for difficulty urinating. Negative for bladder retention or incontinence Musculoskeletal: Positive for back pain, gait problem and joint swelling. Negative for arthralgias, myalgias, neck pain and neck stiffness. Neurological: Negative for weakness, numbness and headaches. Psychiatric/Behavioral: Positive for sleep disturbance. Negative for dysphoric mood and suicidal ideas. The patient is not nervous/anxious.[facility]01-[facility] Telephone encounter Note* Telephone Encounter - Jonas Milan LPN - 03/22/2024 9:00 AM EST Pt notified of same. Jonas Milan LPN [facility]01-13-2025 Miscellaneous Notes* Telephone Encounter - Jonas Milan LPN - 03/22/2024 9:00 AM EST Pt notified of same. Jonas Milan LPN * Telephone Encounter - Destini Lay PA-C - 03/22/2024 8:42 AM EST Let patient know that her labs were stable. Destini Lay PA-C documented in this encounterC[facility] Telephone encounter Note * Telephone Encounter - Destini Lay PA-C - 03/22/2024 8:42 AM EST Let patient know that her labs were stable. Destini Lay PA-C [facility]01-10-2025 NoteHNO ID: [id number] Author: DESTINI LAY PA-C Service: ? Author Type: Physician Instrumentation Engineering Technician Type: Progress Notes Filed: 03/19/2024 13:36 Note Text: Chief Complaint Patient presents with: 6 Month Exam HPI Spenser Putnam is a 83 year old female who presents here today for Chronic Medical Conditions.. Patient with hx HTN, hyperlipidemia, RLS, insomnia, vit b12 def, OA and those as below. No concerns today Past medical history, appointments, medications, allergies reviewed. 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 Maicas, Rt anterior shoulder, Gilberto III, pT1a, pNX, pM N/A Mixed hyperlipidemia 10/13/2014 Multiple thyroid nodules 09/15/2017 CT neck09/2017 7 mm nodule, US multiple small nodules repeat 09/2019 Non morbid obesity 03/29/2016 Osteopenia, senile 07/02/2005 SEE DEXA 07/15 Other chronic dermatitis due to solar radiation 03/27/2006 Other psoriasis 04/16/2013 Other seborrheic keratosis 06/23/2006 Personal history of other malignant neoplasm of skin 03/22/2013 Raynaud's phenomenon without gangrene 06/07/2020 suspected Restless leg syndrome Sensorineural hearing loss, asymmetrical 10/08/2017 Solar lentigo 03/22/2013 Spinal stenosis of lumbar region 06/17/2023 Spinal stenosis, lumbar region, without neurogenic claudication 07/25/2023 Spondylolisthesis at L5-S1 level 10/20/2012 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 09/15/2012 Vertigo 12/03/2021 MRI normal and patient declined further eval as of 12/03/21 Vitamin B12 deficiency 11/09/2023 Vitamin D deficiency 08/24/2016 Xerosis cutis 03/22/2013 Previous Surgical History PAST SURGICAL HISTORY Procedure Laterality Date ABDOMINAL SURGERY HX BACK SURGERY HX 01/23/2021 lateral lumbar interbody fusion L3-4 CHOLECYSTECTOMY age 52 +/- laparoscopic cholecystectomy COLONOSCOPY 04/29/2013 Dr. Patton, repeat 5 yrs COLONOSCOPY FLX DX W/COLLJ SPEC WHEN PFRMD 07/09/2006 COLONOSCOPY FLX DX W/COLLJ SPEC WHEN PFRMD 04/29/2013 internal hemorrhoids, q5y for FHx COLONOSCOPY, GI 05/02/2000 FHx, repeat q5y DILATION AND CURETTAGE DXAND/THER NONOBSTETRIC Dilation AND curettage EYE SURGERY HX PAST SURGICAL HISTORY OF 12/2011 squamous cell CA rt hand.left LE PAST SURGICAL HISTORY OF 04/2012 rt CTR-- endoscopic PAST SURGICAL HISTORY OF 2012 lumbar surgery- fusion PAST SURGICAL HISTORY OF 2014 excision melanoma right shoulder PAST SURGICAL HISTORY OF Right 2017 bunionectoy TONSILLECTOMY HX TONSILLECTOMY PRIMARY/SECONDARY Tonsillectomy Family History FAMILY HISTORY Problem Relation Age of Onset Colon Cancer Mother ~70 Hypertension Mother Thyroid Mother Colon Cancer Father ~70 Hypertension Father Stroke Father Heart Father Hx of CHF Coronary Artery Disease Maternal Grandmother Hx of HI Diabetes Daughter Type I Patient Allergies ALLERGIES Allergen Reactions Sulfa (Sulfonamide * Swelling, Anaphylaxis Tongue/ throat swelled Phenergan Plain Vomiting Vomiting Hydrocodone-Acetami* GI Upset NAUSEA Procardia [Nifedipi* Swelling legs Current Medications Current Outpatient Medications on File Prior to Visit Medication Sig rOPINIRole (REQUIP) 4 mg tablet Take 1 tablet by mouth daily at bedtime. spironolactone (ALDACTONE) 50 mg tablet Take 1 tablet by mouth once daily. celecoxib (CELEBREX) 200 mg capsule Take 1 capsule by mouth once daily. nortriptyline (PAMELOR) 75 mg capsule Take 1 capsule by mouth daily at bedtime. Magnesium 250 mg tab Take 1 tablet by mouth once daily. lisinopril (ZESTRIL) 10 mg tablet Take 1 tablet by mouth once daily. cholecalciferol, vitamin D3, (VITAMIN D3 ORAL) Take by mouth. cyanocobalamin (VITAMIN B-12) 1,000 mcg tab Take 1 tablet by mouth once daily. pregabalin (LYRICA) 50 mg capsule Take one pill twice daily pravastatin (PRAVACHOL) 20 mg tablet Take 1 tablet by mouth daily at bedtime. potassium chloride 20 mEq TbER Take 1 tablet by mouth once daily. aspirin, enteric coated (ADULT LOW DOSE ASPIRIN) 81 mg EC tablet Take 1 tablet by mouth once daily. calcium carbonate(CALTRATE 600 600 MG (1,500 MG) TAB) colchicine 0.6 mg tablet Jose Manuel (more content not included)...[facility]01-10-2025 History of Present illness Narrative* Destini Lay PA- C - 03/19/2024 1:11 PM EST Chief Complaint Patient presents with: 6 Month Exam HPI Spenser Putnam is a 83 year old female who presents here today for Chronic Medical Conditions.. Patient with hx HTN, hyperlipidemia, RLS, insomnia, vit b12 def, OA and those as below. No concerns today Past medical history, appointments, medications, allergies reviewed. 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 Macias, Rt anterior shoulder, Gilberto III, pT1a, pNX, pM N/A Mixed hyperlipidemia 10/13/2014 Multiple thyroid nodules 09/15/2017 CT neck09/2017 7 mm nodule, US 7.2018 multiple small nodules repeat 09/2019 Non morbid obesity 03/29/2016 Osteopenia, senile 07/02/2005 SEE DEXA 07/15 Other chronic dermatitis due to solar radiation 03/27/2006 Other psoriasis 04/16/2013 Other seborrheic keratosis 06/23/2006 Personal history of other malignant neoplasm of skin 03/22/2013 Raynaud's phenomenon without gangrene 06/07/2020 suspected Restless leg syndrome Sensorineural hearing loss, asymmetrical 10/08/2017 Solar lentigo 03/22/2013 Spinal stenosis of lumbar region 06/17/2023 Spinal stenosis, lumbar region, without neurogenic claudication 07/25/2023 Spondylolisthesis at L5-S1 level 10/20/2012 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 09/15/2012 Vertigo 12/03/2021 MRI normal and patient declined further eval as of 12/03/21 Vitamin B12 deficiency 11/09/2023 Vitamin D deficiency 08/24/2016 Xerosis cutis 03/22/2013 Previous Surgical History PAST SURGICAL HISTORY Procedure Laterality Date ABDOMINAL SURGERY HX BACK SURGERY HX 01/23/2021 lateral lumbar interbody fusion L3-4 CHOLECYSTECTOMY age 52 +/- laparoscopic cholecystectomy COLONOSCOPY 04/29/2013 Dr. Patton, repeat 5 yrs COLONOSCOPY FLX DX W/COLLJ SPEC WHEN PFRMD 07/09/2006 COLONOSCOPY FLX DX W/COLLJ SPEC WHEN PFRMD 04/29/2013 internal hemorrhoids, q5y for FHx COLONOSCOPY, GI 05/02/2000 FHx, repeat q5y DILATION & CURETTAGE DX&/THER NONOBSTETRIC Dilation & curettage EYE SURGERY HX PAST SURGICAL HISTORY OF 12/2011 squamous cell CA rt hand.left LE PAST SURGICAL HISTORY OF 04/2012 rt CTR-- endoscopic PAST SURGICAL HISTORY OF 2012 lumbar surgery- fusion PAST SURGICAL HISTORY OF 2013 excision melanoma right shoulder PAST SURGICAL HISTORY OF Right 2017 bunionectoy TONSILLECTOMY HX TONSILLECTOMY PRIMARY/SECONDARY <AGE 12 childhood Tonsillectomy Family History FAMILY HISTORY Problem Relation Age of Onset Colon Cancer Mother ~70 Hypertension Mother Thyroid Mother Colon Cancer Father ~70 Hypertension Father Stroke Father Heart Father Hx of CHF Coronary Artery Disease Maternal Grandmother Hx of HI Diabetes Daughter Type I Patient Allergies ALLERGIES Allergen Reactions Sulfa (Sulfonamide * Swelling, Anaphylaxis Tongue/ throat swelled Phenergan Plain Vomiting Vomiting Hydrocodone-Acetami* GI Upset NAUSEA Procardia [Nifedipi* Swelling legs Current Medications Current Outpatient Medications on File Prior to Visit Medication Sig rOPINIRole (REQUIP) 4 mg tablet Take 1 tablet by mouth daily at bedtime. spironolactone (ALDACTONE) 50 mg tablet Take 1 tablet by mouth once daily. celecoxib (CELEBREX) 200 mg capsule Take 1 capsule by mouth once daily. nortriptyline (PAMELOR) 75 mg capsule Take 1 capsule by mouth daily at bedtime. Magnesium 250 mg tab Take 1 tablet by mouth once daily. lisinopril (ZESTRIL) 10 mg tablet Take 1 tablet by mouth once daily. cholecalciferol, vitamin D3, (VITAMIN D3 ORAL) Take by mouth. cyanocobalamin (VITAMIN B-12) 1,000 mcg tab Take 1 tablet by mouth once daily. pregabalin (LYRICA) 50 mg capsule Take one pill twice daily pravastatin (PRAVACHOL) 20 mg tablet Take 1 tablet by mouth daily at bedtime. potassium chloride 20 mEq TbER Take 1 tablet by mouth once daily. aspirin, enteric coated (ADULT LOW DOSE ASPIRIN) 81 mg EC tablet Take 1 tablet by mouth once daily. calcium carbonate(CALTRATE 600 600 MG (1,500 MG) TAB) colchicine 0.6 mg tablet Take one tab by mouth 3 times a day till pain stops or script finished. (Patient not taking: Reported on 03/19/2024) ammonium lactate (LAC-HYDRIN) 12 % cream Apply to affected area as needed. (Patient not taking: Reported on 03/19/2024) DAILY MULTIVITAMIN TAB Take by mouth. (Patient not taking: Reported on 03/19/2024) No current facility-administered medications on file prior to visit. Social History Social History Tobacco Use Smoking status: Never Smokeless tobacco: Never Vaping Use Vaping status: Never Used Substance Use Topics Alcohol use: Yes Alcohol/week: 3.9 standard drinks of alcohol Types: 3 Mixed Drinks per week Comment: 3-4/week Drug use: No Review of Symptoms REVIEW OF SYSTEMS GENERAL: No weight loss, malaise or fevers NECK: Negative for lumps, goiter, pain and significant neck swelling RESPIRATORY: Negative for cough, hemoptysis, wheezing, COPD, dyspnea or shortness of breath CARDIOVASCULAR: Negative for chest pain, leg swelling, CHF or palpitations NEURO: No history of headaches, syncope, paralysis, seizures or tremors EXAM: BP 110/60 (BP Site: Left Arm, BP Position: Sitting, BP Cuff Size: Regular Adult) Pulse 76 Temp 36.6 C (97.8 F) Resp 16 Wt 64.4 kg (142 lb) BMI 25.97 kg/m General Appearance: Well appearing, alert, in no acute distress, well-hydrated, well nourished.. Neck: Supple, no adenopathy; thyroid symmetric, normal size, no bruits. Lungs: Lungs clear to auscultation. No wheezing, rhonchi, rales.. Heart:+murmur RRR without gallop, or rubs. No ectopy. Extremities: No deformities, edema, skin discoloration, clubbing or cyanosis. Good capillary refill. . Peripheral Pulses: Normal. Health Maintenance List Depression Screening Never done Anxiety Screening Never done DTaP,Tdap,Td Vaccine(2 - Tdap) due on 09/16/2024 Diabetes Screening due on 11/27/2026 Bone Density Screening Completed Influenza Vaccine Completed RSV Vaccine Completed Shingrix Vaccine Completed Covid-19 Vaccine Completed Pneumococcal Vaccine: 50+ Completed HPV Vaccine Aged Out Colorectal Cancer Screening Discontinued Advance Directive Discussion Discontinued Data reviewed ASSESSMENT/PLAN: 1. Essential hypertension with goal blood pressure less than 140/90 - ICD9: 401.9, ICD10: I10 (primary diagnosis) - Controlled - Continue current medications - Recommend home blood pressure monitoring, to bring results to next visit - Encouraged sodium restriction, DASH or Mediterranean diet - Recommend regular aerobic exercise 2. Mixed hyperlipidemia - ICD9: 272.2, ICD10: E78.2 - Controlled - Continue current medications - Counseled on healthy diet and regular exercise 3. Raynaud's phenomenon without gangrene - ICD9: 443.0, ICD10: I73.00 stable 4. Valvular heart disease - ICD9: 424.90, ICD10: I38 asymptomatic 5. Lumbar radiculopathy - ICD9: 724.4, ICD10: M54.16 Cont with pain management 6. Multiple thyroid nodules - ICD9: 241.1, ICD10: E04.2 Most recent US stable Labs today Follow up in 6 months routine. Destini Lay PA-C * Destini Lay PA-C - 03/19/2024 1:09 PM EST documented [facility] encounterC[facility] NoteHNO ID: [id number] Author: DESTINI LAY PA-C Service: ? Author Type: Physician Instrumentation Engineering Technician Type: Progress Notes Filed: 03/19/2024 13:36 Note Text:[facility]01-10-2025 Telephone encounter Note* Telephone Encounter - Kelle Joyce MA - 03/19/2024 8:44 AM EST Did attempted to contact pharmacy.. currently closed will try back. Patient is being seen today. Will have provider address. Kelle Joyce MA [facility]01-10-2025 Miscellaneous Notes* Telephone Encounter - Kelle Joyce MA - 03/19/2024 8:44 AM EST Did attempted to contact pharmacy.. currently closed will try back. Patient is being seen today. Will have provider address. Kelle Joyce MA documented in this encounterC[facility]12-31-2024 Telephone encounter Note * Telephone Encounter - Cintia Quiles LPN - 03/09/2024 1:23 PM EST Prescription Refill Information The patient has been identified by name and date of : Yes Caregiver verified no other encounters exist for this prescription request: Yes Caregiver confirmed with patient/requestor that no other refills are due, in the near future, with this provider at this time: Yes The last office visit in the department: 12/17/2023 Does the patient have a future office visit with this provider/department: Yes Requested Prescriptions Pending Prescriptions Disp Refills rOPINIRole (REQUIP) 4 mg tablet 90 tablet 1 Sig: Take 1 tablet by mouth daily at bedtime. Cintia Quiles LPN March 09, 2024 1:23 PM [facility]12-31-2024 Miscellaneous Notes* Telephone Encounter - Cintia Quiles LPN - 03/09/2024 1:23 PM EST Prescription Refill Information The patient has been identified by name and date of : Yes Caregiver verified no other encounters exist for this prescription request: Yes Caregiver confirmed with patient/requestor that no other refills are due, in the near future, with this provider at this time: Yes The last office visit in the department: 12/17/2023 Does the patient have a future office visit with this provider/department: Yes Requested Prescriptions Pending Prescriptions Disp Refills rOPINIRole (REQUIP) 4 mg tablet 90 tablet 1 Sig: Take 1 tablet by mouth daily at bedtime. Cintia Quiles LPN March 09, 2024 1:23 PM documented in this encounterC[facility]12-06-[facility]24 Telephone encounter Note * Telephone Encounter - Cintia Quiles LPN - 02/13/2024 9:09 AM EST Prescription Refill Information The patient has been identified by name and date of : Yes Caregiver verified no other encounters exist for this prescription request: Yes Caregiver confirmed with patient/requestor that no other refills are due, in the near future, with this provider at this time: Yes The last office visit in the department: 12/17/2023 Does the patient have a future office visit with this provider/department: Yes Requested Prescriptions Pending Prescriptions Disp Refills spironolactone (ALDACTONE) 50 mg tablet 30 tablet 5 Sig: Take 1 tablet by mouth once daily. Cintia Quiles LPN February 13, 2024 9:10 AM [facility]12-[facility] Miscellaneous Notes* Telephone Encounter - Cintia Quiles LPN - 02/13/2024 9:09 AM EST Prescription Refill Information The patient has been identified by name and date of : Yes Caregiver verified no other encounters exist for this prescription request: Yes Caregiver confirmed with patient/requestor that no other refills are due, in the near future, with this provider at this time: Yes The last office visit in the department: 12/17/2023 Does the patient have a future office visit with this provider/department: Yes Requested Prescriptions Pending Prescriptions Disp Refills spironolactone (ALDACTONE) 50 mg tablet 30 tablet 5 Sig: Take 1 tablet by mouth once daily. Cintia Quiles LPN February 13, 2024 9:10 AM documented in this encounterC[facility]11-25-2024 Telephone encounter Note * Telephone Encounter - Fawad Leong LPN - 02/02/2024 1:03 PM EST Spoke with patient following up from procedure. Patient states they are doing well, no questions orconcerns at this time. Fawad Leong LPN [facility]11-25-2024 Miscellaneous Notes* Telephone Encounter - Fawad Leong LPN - 02/02/2024 1:03 PM EST Spoke with patient following up from procedure. Patient states they are doing well, no questions orconcerns at this time. Fawad Leong LPN documented in this encounterC[facility]11-22-2024 Instructions* Patient Instructions* Malika Jones LPN - 01/30/2024 12:50 PM EST PROCEDURE DISCHARGE INSTRUCTIONS 01/30/2024 [place] 1940 Physician: Danii Roca MD, PhD Procedure: CAUDAL INJECTION Post Procedure Instructions: If sedation not given, no driving for 3 hours after the procedure., Rest the day of the procedure.,You may resume normal activities the day after the procedure, as tolerated., Pain should gradually subside over the next 2-3 weeks., Avoid movements that may aggravate pain., Apply cold compresses toinjection site if needed., If medically acceptable, take over the counter anti-inflammatories such as ibuprofen or Aleve if needed for post procedure discomfort., and No hot baths, hot tubs or hot compresses for 24 hours. If you have any of the following signs or symptoms, please call our office at Fever and/or chills Swelling and/or drainage from injection site New pain that is different than your normal pain (other than soreness at the site of the procedure) Stiff neck Shortness of breath Severe increase in pain Motor dysfunctions, such as difficulty walking, bowel or bladder dysfunction and/or incontinence Headache that is severe, light sensitive or develops when changing positions (positional headache) Nausea and/or vomiting accompanied by headache that started 24-48 hours after the procedure If you have any emergent concerns, please call 911 or go to your local emergency room. Please also contact our office to let us know you will be seeking emergency care and why. documented in this encounterC[facility]11-22-2024 Nurse Note* Malika Jones LPN - 01/30/2024 12:50 PM EST Order has been placed in the patient's chart with the following parameters for discharge from the physician: Patient is alert and oriented Vitals: Diastolic/Systolic +/- 20mmHg Respirations: 12-18 Pulse: 60-100 SpO2 is greater than or equal to 90% Patient has no nausea or vomiting Patient has no dizziness Pain level is +/- 2 from initial evaluation Dressing, dry and intact with no evidence of bleeding Criteria has been met, patient is okay to be discharged per the physician. Physician has gone in and evaluated the patient. Dressing dry and intact. No drainage noted. The patient denies nausea, numbness, tingling, weakness, shortness of breath, dizziness, or headache. Pain level 0/10. Vital signs within normal limits. Patient denied needing walked out by clinical staff and denied needing a wheelchair. Patient given discharge instructions and sent to transportation via ambulatory method. Patient left in good condition. [facility]11-[facility] Nurse Note* Malika Jones LPN - 01/30/2024 12:50 PM EST Order has been placed in the patient's chart with the following parameters for discharge from the physician: Patient is alert and oriented Vitals: Diastolic/Systolic +/- 20mmHg Respirations: 12-18 Pulse: 60-100 SpO2 is greater than or equal to 90% Patient has no nausea or vomiting Patient has no dizziness Pain level is +/- 2 from initial evaluation Dressing, dry and intact with no evidence of bleeding Criteria has been met, patient is okay to be discharged per the physician. Physician has gone in and evaluated the patient. Dressing dry and intact. No drainage noted. The patient denies nausea, numbness, tingling, weakness, shortness of breath, dizziness, or headache. Pain level 0/10. Vital signs within normal limits. Patient denied needing walked out by clinical staff and denied needing a wheelchair. Patient given discharge instructions and sent to transportation via ambulatory method. Patient left in good condition. * Ashutosh Vance LPN - 01/30/2024 12:15 PM EST Procedure to be performed: Caudal Epidural Steroid Injection Patient was wheeled on stretcher from pre op bay to procedure room and assisted onto the procedure tablePatient s procedure was performed in an [facility] Procedure room. Pause completed at each level by provider to verify correct level and laterality placement Pressure was applied to patient s injection site(s) and bleeding was minimal. Patient had no complaint of shortness of breath, dizziness, headache, numbness, tingling, weakness or complications from procedure. Patient was assisted from the procedure table onto the stretcher and wheeled into a post op bay. Patient was advised a clinician will be to obtain another set of vitals. Time Out: 1235 Confirmed patient name, date of , procedure site, laterality, and allergies Procedure Start: 1238 Procedure End: 1248 * Marissa Briones LPN - 01/30/2024 12:05 PM EST Supervisor [employer] Sample And Pattern's Name: walkter Are you on a blood thinner: n If yes, is a hold required: n Last dose of blood thinner: n INR Result today: n Do you require a Lovenox bridge:n Are you a diabetic:n Are you/or could you be : n Are you taking Xanax for the procedure: n Are you currently on a steroid? n Are you currently on an antibiotic: n documented in this encounterC[facility]11-22-2024 Nurse Note* Ashutosh Vance LPN - 01/30/2024 12:15 PM EST Procedure to be performed: Caudal Epidural Steroid Injection Patient was wheeled on stretcher from pre op bay to procedure room and assisted onto the procedure tablePatient s procedure was performed in an [facility] Procedure room. Pause completed at each level by provider to verify correct level and laterality placement Pressure was applied to patient s injection site(s) and bleeding was minimal. Patient had no complaint of shortness of breath, dizziness, headache, numbness, tingling, weakness or complications from procedure. Patient was assisted from the procedure table onto the stretcher and wheeled into a post op bay. Patient was advised a clinician will be to obtain another set of vitals. Time Out: 1235 Confirmed patient name, date of , procedure site, laterality, and allergies Procedure Start: 1238 Procedure End: 1248 [facility]11-22-[facility]24 NoteHNO ID: [id number] Author: MARISSA BRIONES LPN Service: ? Author Type: LICENSED NURSE Type: Progress Notes Filed: 01/30/2024 16:17 Note Text: Review of Systems Constitutional: Positive for activity change. Negative for chills, fever and unexpected weight change. Gastrointestinal: Negative for bowel retention or incontinence Genitourinary: Negative for difficulty urinating. Negative for bladder retention or incontinence Musculoskeletal: Positive for gait problem. Negative for arthralgias, back pain, joint swelling, myalgias, neck pain and neck stiffness. Neurological: Negative for weakness, numbness and headaches. Psychiatric/Behavioral: Positive for sleep disturbance. Negative for dysphoric mood and suicidal ideas. The patient is not nervous/anxious.[facility]11-22-2024 History of Present illness Narrative* Marissa Briones LPN - 01/30/2024 12:10 PM EST Review of Systems Constitutional: Positive for activity change. Negative for chills, fever and unexpected weight change. Gastrointestinal: Negative for bowel retention or incontinence Genitourinary: Negative for difficulty urinating. Negative for bladder retention or incontinence Musculoskeletal: Positive for gait problem. Negative for arthralgias, back pain, joint swelling, myalgias, neck pain and neck stiffness. Neurological: Negative for weakness, numbness and headaches. Psychiatric/Behavioral: Positive for sleep disturbance. Negative for dysphoric mood and suicidal ideas. The patient is not nervous/anxious. * Danii Roca MD, PhD - 01/30/2024 12:10 PM EST [facility] Date: 01/30/2024 Patient name: Spenser Putnam Physician performing procedure: Danii Roca MD, PhD Procedure: Caudal Epidural Steroid Injection Injectate: A total of 6cc, consisting of 1.5cc of Dexamethasone (10mg/ml), 2cc of 1% Lidocaine and the remainder consisting of Normal Saline Improvement after today's procedure: as per nursing report Diagnosis: (M54.16) Lumbar radiculopathy (primary encounter diagnosis) (M48.061) Spinal stenosis, lumbar region, without neurogenic claudication Comments: Initial administration of contrast showed vascular uptake despite negative aspiration. The needle was subsequently advanced within the caudal epidural space. Repeat Aspiration was negative for heme or CSF, and contrast administration showed epidural uptake with no vascular uptake. However, due to the above, non-particulate steroid (dexamethasone) was utilized. HPI: Spenser Putnam is an 83 year old FEMALE who presents today for an elective caudal epidural steroid injection. 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 Pt has complaint(s) of recurrent low back pain and left lower limb radicular symptoms in a predominantly L5 dermatomal distribution, however repeat MRI L- spine shows evidence of lumbar spinal stenosis (MRI L-spine 2023 notable for moderate to severe L2-3, mild to moderate L3-4 central canal stenosis) and lumbar NF stenosis (mild to moderate L L2-3 and mild R L2-3 NF stenosis, moderate bilateral NF stenosis at L3-4, mild to moderate L and mild R NF stenosis at L5-S1) in setting of known multilevel listhesis. Patient has evidence of moderate to severe L2-3 central canal stenosis as well as moderate L3-4 central stenosis in the setting of adjacent segment disease from her prior L3-5 laminectomy and posterior fusion. She reports significant symptoms of neurogenic claudication, as well as significant left L5 dermatomal distribution of pain. She has had limited relief from left L4-5 and L5-S1 transforaminal SHERMAN as well as left L5-S1 and S1 transforaminal SHERMAN's, and was not recommended further surgical intervention. Due to the above she was recommended to complete workup for SCS evaluation. Patient was recommended trialing a caudal SHERMAN for her radicular symptoms to assess if particulate steroid may provide her more long-lasting benefit. She would further benefit from bilateral L2-3 transforaminal SHERMAN's to target the mostsevere portion of her central canal stenosis at the L2-3 level. If these fail to provide benefit, plan was made to proceed with a SCS trial in preparation for implant. Patient otherwise denies fevers, chills, weakness, saddle anesthesia, bowel or bladder incontinenceor recent antibiotic or anticoagulant use. Review of Systems: Pertinent Positives: MSK: pain in the region being treated Neuro: No weakness or numbness in the region being treated Skin: Negative (No itching) Eyes: Negative (No blurred or double vision) Respiratory: Negative (No Cough, [id number]-[id number], Dyspnea on exertion, wheezing) Cardiovascular: Negative (No Chest Pain, Tightness, Pressure, Palpitations) Gastrointestinal: Negative (No Abdominal pain, Nausea, Vomiting, Constipation, Diarrhea) Genitourinary: Negative (No dysuria) Hematologic: Negative (No bleeding, bruising) OB: is Denied or Not Applicable Endocrine: Negative (No hot/cold intolerance) Psychiatric: Negative (No depression, anxiety or suicidal ideation) ALLERGIES Allergen Reactions Sulfa (Sulfonamide * Swelling, Anaphylaxis Tongue/ throat swelled Phenergan Plain Vomiting Vomiting Hydrocodone-Acetami* GI Upset NAUSEA Procardia [Nifedipi* Swelling legs Current Outpatient Medications on File Prior to Visit Medication Sig celecoxib (CELEBREX) 200 mg capsule Take 1 capsule by mouth once daily. nortriptyline (PAMELOR) 75 mg capsule Take 1 capsule by mouth daily at bedtime. diclofenac potassium (CATAFLAM) 50 mg tablet Take 1 tablet by mouth two times a day. Magnesium 250 mg tab Take 1 tablet by mouth once daily. lisinopril (ZESTRIL) 10 mg tablet Take 1 tablet by mouth once daily. cholecalciferol, vitamin D3, (VITAMIN D3 ORAL) Take by mouth. cyanocobalamin (VITAMIN B-12) 1,000 mcg tab Take 1 tablet by mouth once daily. pregabalin (LYRICA) 50 mg capsule Take one pill twice daily methylPREDNISolone (MEDROL, GLENNA,) 4 mg Dose-Pack As Instructed per package pravastatin (PRAVACHOL) 20 mg tablet Take 1 tablet by mouth daily at bedtime. potassium chloride 20 mEq TbER Take 1 tablet by mouth once daily. rOPINIRole (REQUIP) 4 mg tablet Take 1 tablet by mouth daily at bedtime. spironolactone (ALDACTONE) 50 mg tablet Take 1 tablet by mouth once daily. colchicine 0.6 mg tablet Take one tab by mouth 3 times a day till pain stops or script finished. ammonium lactate (LAC-HYDRIN) 12 % cream Apply to affected area as needed. aspirin, enteric coated (ADULT LOW DOSE ASPIRIN) 81 mg EC tablet Take 1 tablet by mouth once daily. calcium carbonate(CALTRATE 600 600 MG (1,500 MG) TAB) DAILY MULTIVITAMIN TAB Take by mouth. No current facility-administered medications on file prior to visit. 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 Macias, Rt anterior shoulder, Gilberto III, pT1a, pNX, pM N/A Mixed hyperlipidemia 10/13/2014 Multiple thyroid nodules 09/15/2017 CT neck09/2017 7 mm nodule, US .2018 multiple small nodules repeat 09/2019 Non morbid obesity 03/29/2016 Osteopenia, senile 07/02/2005 SEE DEXA 07/15 Other chronic dermatitis due to solar radiation 03/27/2006 Other psoriasis 04/16/2013 Other seborrheic keratosis 06/23/2006 Personal history of other malignant neoplasm of skin 03/22/2013 Raynaud's phenomenon without gangrene 06/07/2020 suspected Restless leg syndrome Sensorineural hearing loss, asymmetrical 10/08/2017 Solar lentigo 03/22/2013 Spinal stenosis of lumbar region 06/17/2023 Spinal stenosis, lumbar region, without neurogenic claudication 07/25/2023 Spondylolisthesis at L5-S1 level 10/20/2012 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 09/15/2012 Vertigo 12/03/2021 MRI normal and patient declined further eval as of 12/03/21 Vitamin B12 deficiency 11/09/2023 Vitamin D deficiency 08/24/2016 Xerosis cutis 03/22/2013 PAST SURGICAL HISTORY Procedure Laterality Date ABDOMINAL SURGERY HX BACK SURGERY HX 01/23/2021 lateral lumbar interbody fusion L3-4 CHOLECYSTECTOMY age 52 +/- laparoscopic cholecystectomy COLONOSCOPY 04/29/2013 Dr. Patton, repeat 5 yrs COLONOSCOPY FLX DX W/COLLJ SPEC WHEN PFRMD 07/09/2006 COLONOSCOPY FLX DX W/COLLJ SPEC WHEN PFRMD 04/29/2013 internal hemorrhoids, q5y for FHx COLONOSCOPY, GI 05/02/2000 FHx, repeat q5y DILATION & CURETTAGE DX&/THER NONOBSTETRIC Dilation & curettage EYE SURGERY HX PAST SURGICAL HISTORY OF 12/2011 squamous cell CA rt hand.left LE PAST SURGICAL HISTORY OF 04/2012 rt CTR-- endoscopic PAST SURGICAL HISTORY OF 2013 lumbar surgery- fusion PAST SURGICAL HISTORY OF 2014 excision melanoma right shoulder PAST SURGICAL HISTORY OF Right 2017 bunionectoy TONSILLECTOMY HX TONSILLECTOMY PRIMARY/SECONDARY <AGE 12 childhood Tonsillectomy FAMILY HISTORY Problem Relation Age of Onset Colon Cancer Mother ~70 Hypertension Mother Thyroid Mother Colon Cancer Father ~70 Hypertension Father Stroke Father Heart Father Hx of CHF Coronary Artery Disease Maternal Grandmother Hx of HI Diabetes Daughter Type I Social History Tobacco Use Smoking status: Never Smokeless tobacco: Never Vaping Use Vaping status: Never Used Substance Use Topics Alcohol use: Yes Alcohol/week: 3.9 standard drinks of alcohol Types: 3 Mixed Drinks per week Comment: 3-4/week Drug use: No Attestation Information obtained by others were confirmed and edited as necessary on 01/29/2024 by Danii Roca MD, PhD. Objective Exam: Vitals: As per nursing documentation Constitutional: Normal Appearance, Oriented to Time, Place and Person Head: No lacerations, no external signs of trauma Eyes: Conjunctiva clear. No discharge from the eyes Cardiovascular: Appears well-perfused Pulmonary: Non-labored respirations Abdominal: Non-distended Skin: No visible rashes or ecchymosis Psychiatric: Mood appropriate for given condition Neurological: no focal deficits, gross movements are limited by pain, but otherwise unremarkable Data Reviewed: Nursing note and vitals reviewed. Additional imaging reviewed as appropriate Assessment and Plan: We discussed their current plan and the pathology responsible for the patient's pain. Specific counseling related to the procedure was provided regarding the risks, benefits and alternatives. The patient wishes to proceed with the plan as noted above. Encounter Diagnosis ICD-10-CM 1. Lumbar radiculopathy M54.16 EPI LUMBAR OR SACRAL W/IMAGING lidocaine (PF) 10 mg/mL (1 %) 100 mg injection (XYLOCAINE) 0.9% NaCl 10 mL flush iohexol 300 mg injection (OMNIPAQUE 300) dexAMETHasone sodium phosphate 10 mg injection (DECADRON) DISCONTINUED: methylPREDNISolone acetate 40 mg injection (DEPO-Medrol) 2. Spinal stenosis, lumbar region, without neurogenic claudication M48.061 EPI LUMBAR OR SACRAL W/IMAGING lidocaine (PF) 10 mg/mL (1 %) 100 mg injection (XYLOCAINE) 0.9% NaCl 10 mL flush iohexol 300 mg injection (OMNIPAQUE 300) dexAMETHasone sodium phosphate 10 mg injection (DECADRON) DISCONTINUED: methylPREDNISolone acetate 40 mg injection (DEPO-Medrol) UNIVERSAL PROTOCOL / SAFETY CHECKLIST Procedure to be Performed: as stated above Sign In: A Moment of CARE was completed. Personnel directly involved with the procedure wore the appropriate PPE (Personal Protective Equipment). Patient/Surrogate Stated/Verified: PATIENT VERIFIED(optional for EMERGENT procedures): Patient name, Date of , Relevant allergies and The intended procedure Time Out Communication: Intended patient and procedure match the source documents. Consent documented and matches the intended procedure. Relevant labs, photos, and/or imaging studies have been reviewed. Medications required for procedure verified. Sign Out: SIGN OUT (optional for EMERGENT procedures): No specimen collected. Time out to confirm patient name, date of , procedure site, laterality, and allergies performed by physician. Please see nursing note for exact times (time out, procedure start, procedure end). [place] protocol documentation / Pre-Procedure checklist: Unless stated otherwise in the procedure note, the risks include but are not limited to infection, allergic reaction, increased pain, lack of therapeutic benefit, steroid reaction, nerve damage, paralysis, stroke, epidural hematoma, syncope, headache, respiratory or cardiac arrest, pneumothorax, and scar formation Time Out was led by the physician in the procedure room, with the patient and all staff present andparticipating The following information was verified: name, date of , procedure site (marked), laterality, anticoagulants and allergies [place] protocol documentation / Pre-Procedure Checklist: Consent: Obtained in writing prior to procedure Unless stated otherwise in the procedure note, the risks include but are not limited to infection, allergic reaction, increased pain, lack of therapeutic benefit, steroid reaction, nerve damage, paralysis, stroke, epidural hematoma, syncope, headache, respiratory or cardiac arrest, pneumothorax, and scar formation Once the plan was agreed upon, the patient gave written consent to proceed and was transported intothe procedure room Surgical/Procedure pause or Time Out : Time Out was led by the physician in the procedure room, with the patient and all staff present andparticipating The following information was verified during the Time Out process: Patient name, patient date of , procedure site (marked), laterality, anticoagulants and allergies Anticoagulants: reviewed with patient, notable for: none DESCRIPTION OF PROCEDURE: The patient was brought to the procedure room and placed in the prone position onto the fluoroscopytable. The lumbosacral area was prepped and draped in the usual sterile fashion using Chloroprep and a fenestrated drape. Under fluoroscopic guidance in the lateral view the sacrum was imaged and thethe intended needle insertion site at the sacral hiatus was marked on the skin. The skin was anesthetized with 1-2ml of 1% lidocaine with a 25G 1.5 inch needle. After adequate skin anesthesia was obtained, a 22 gauge 3.5 inch spinal needle was inserted through the sacro-coccygeal ligament into the epidural space under fluoroscopic guidance. Using AP visualization, the needle was advanced no furthe r superior than the S3 level. The needle was aspirated and 1-2 ml of omnipaque contrast dye was injected under live fluoroscopy which showed epidural spread. The above noted injectate was then administered and the needle was removed. Please see the nursing note for exact times (time out, procedure start, procedure end). After careful removal of the needle, there was minimal bleeding. The injection site was covered with appropriate sterile dressing. The patient was noted to have tolerated the procedure well and was discharged after an appropriate period of post-procedure observation. The patient was instructed to contact us if there were any complications. The patient was advised to follow-up with the requesting physician within one to two weeks or as per their requested follow-up plan. Post procedure visit summary with written instructions was offered to the patient. Danii Roca MD, PhD Pain Management [facility] NoteHNO ID: [id number] Author: DANII ROCA MD, PhD Service: ? Author Type: Physician Type: Progress Notes Filed: 01/30/2024 16:17 Note Text: [facility] Date: 01/30/2024 Patient name: Spenser Putnam Physician performing procedure: Danii Roca MD, PhD Procedure: Caudal Epidural Steroid Injection Injectate: A total of 6cc, consisting of 1.5cc of Dexamethasone (10mg/ml), 2cc of 1% Lidocaine and the remainder consisting of Normal Saline Improvement after today's procedure: as per nursing report Diagnosis: (M54.16) Lumbar radiculopathy (primary encounter diagnosis) (M48.061) Spinal stenosis, lumbar region, without neurogenic claudication Comments: Initial administration of contrast showed vascular uptake despite negative aspiration. The needle was subsequently advanced within the caudal epidural space. Repeat Aspiration was negative for heme or CSF, and contrast administration showed epidural uptake with no vascular uptake. However, due to the above, non-particulate steroid (dexamethasone) was utilized. HPI: Spenser Putnam is an 83 year old FEMALE who presents today for an elective caudal epidural steroid injection. 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 Pt has complaint(s) of recurrent low back pain and left lower limb radicular symptoms in a predominantly L5 dermatomal distribution, however repeat MRI L-spine shows evidence of lumbar spinal stenosis (MRI L-spine 2023 notable for moderate to severe L2-3, mild to moderate L3-4 central canal stenosis) and lumbar NF stenosis (mild to moderate L L2-3 and mild R L2-3 NF stenosis, moderate bilateral NF stenosis at L3-4, mild to moderate L and mild R NF stenosis at L5-S1) in setting of known multilevel listhesis. Patient has evidence of moderate to severe L2-3 central canal stenosis as well as moderate L3-4 central stenosis in the setting of adjacent segment disease from her prior L3-5 laminectomy and posterior fusion. She reports significant symptoms of neurogenic claudication, as well as significant left L5 dermatomal distribution of pain. She has had limited relief from left L4-5 and L5-S1 transforaminal SHERMAN as well as left L5-S1 and S1 transforaminal SHERMAN's, and was not recommended further surgical intervention. Due to the above she was recommended to complete workup for SCS evaluation. Patient was recommended trialing a caudal SHERMAN for her radicular symptoms to assess if particulate steroid may provide her more long-lasting benefit. She would further benefit from bilateral L2-3 transforaminal SHERMAN's to target the mostsevere portion of her central canal stenosis at the L2-3 level. If these fail to provide benefit, plan was made to proceed with a SCS trial in preparation for implant. Patient otherwise denies fevers, chills, weakness, saddle anesthesia, bowel or bladder incontinence or recent antibiotic or anticoagulant use. Review of Systems: Pertinent Positives: MSK: pain in the region being treated Neuro: No weakness or numbness in the region being treated Skin: Negative (No itching) Eyes: Negative (No blurred or double vision) Respiratory: Negative (No Cough, [id number], Dyspnea on exertion, wheezing) Cardiovascular: Negative (No Chest Pain, Tightness, Pressure, Palpitations) Gastrointestinal: Negative (No Abdominal pain, Nausea, Vomiting, Constipation, Diarrhea) Genitourinary: Negative (No dysuria) Hematologic: Negative (No bleeding, bruising) OB: is Denied or Not Applicable Endocrine: Negative (No hot/cold intolerance) Psychiatric: Negative (No depression, anxiety or suicidal ideation) ALLERGIES Allergen Reactions Sulfa (Sulfonamide * Swelling, Anaphylaxis Tongue/ throat swelled Phenergan Plain Vomiting Vomiting Hydrocodone-Acetami* GI Upset NAUSEA Procardia [Nifedipi* Swelling legs Current Outpatient Medications on File Prior to Visit Medication Sig celecoxib (CELEBREX) 200 mg capsule Take 1 capsule by mouth once daily. nortriptyline (PAMELOR) 75 mg capsule Take 1 capsule by mouth daily at bedtime. diclofenac potassium (CATAFLAM) 50 mg tablet Take 1 tablet by mouth two times a day. Magnesium 250 mg tab Take 1 tablet by mouth once daily. lisinopril (ZESTRIL) 10 mg tablet Take 1 tablet by mouth once daily. cholecalciferol, vitamin D3, (VITAMIN D3 ORAL) Take by mouth. cyanocobalamin (VITAMIN B-12) 1,000 mcg tab Take 1 tablet by mouth once daily. pregabalin (LYRICA) 50 mg ca (more content not included)...[facility]11-22-2024 Nurse Note* Marissa Briones LPN - 01/30/2024 12:05 PM EST Supervisor Frame Sample And Pattern's Name: walkter Are you on a blood thinner: n If yes, is a hold required: n Last dose of blood thinner: n INR Result today: n Do you require a Lovenox bridge:n Are you a diabetic:n Are you/or could you be : n Are you taking Xanax for the procedure: n Are you currently on a steroid? n Are you currently on an antibiotic: n [facility]11-21-2024 NoteHNO ID: [id number] Author: DANII ROCA MD, PhD Service: ? Author Type: Physician Type: Progress Notes Filed: 01/29/2024 10:43 Note Text: [facility] [place] [facility] Today's Date: 01/29/2024 Name: Spenser Putnam : 1940 Purpose: Follow-up Patient Evaluation - This is an established patient, returning today for continued evaluation and management of the chief complaint noted below Chief complaint: Spinal stenosis of lumbar region Pertinent Past Medical History: RLS, L CTS, HLD, HTN, melanoma/malignant melanoma, Raynaud's, lumbar spinal stenosis, lumbar spondylolisthesis, DJD of sternoclavicular joint, 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, Pertinent Past Surgeries: s/p R hand squamous cell resection, s/p R CTR, s/p L-spine surgery (L3-5 laminectomy and posterior fusion per MRI report, 2020 and 2022) Plan at last visit: (Seen on 10/16/2023 by jA Graham CNP) Medications: Requested Prescriptions No prescriptions requested or ordered in this encounter Lyrica 50mg BID - restart Interventional Procedures: Epidural Steroid Injection - Transforaminal Approach (TFESI) under fluoroscopic guidance LEFT-SIDED at S1 and L5-S1 Supervisor Frame Sample And Pattern Needed: Epidural - YES Anticoagulant - Hold Needed: N/A (Not currently on Anticoagulants) Anticoagulant - Currently Taking: None Allergies (relevant): None Scheduling - Mobility (Can Patient independently transfer on/off an OR or Procedure table?): YES (May schedule at any location) Scheduling - Additional Info: None Studies: None Functional Yarsani: Physical Therapy Consultation (Land-Based) Referrals: No additional considerations at present Follow-up: 2 months Depending on response to the above plan, consider: SCS discussion, titrate Lyrica Interval History: Overall pain and functional disability since last visit: Better New Complaints since last visit: No Today, pt reports that she has had 50% initial relief from Left L5-S1 and S1 TFESI completed on 11/21/2023, but no significant rat exterminator benefit. She has previously had left L4-5 and L5-S1 transforaminal SHERMAN's with 50% relief with a need for a 45 degree oblique due to bone graft material at the L4-5 level. Her repeat epidural at the left L5-S1 and S1 neural foramen showed better spread at the S1 level, with severely stenotic spread at the L5-S1 level. Due to the limited benefit that she has had for multiple transforaminal SHERMAN's, she was recommended to present for SCS consult. She reports that she was doing well for several years after her prior lumbar spine surgeries, however in the last 1 year she has had significant lower back pain and more noticeably radicular leg pain, with intermittent lateral thigh, but mostly posteroateral gomez/calf pain to the level of the ankle. Recall: Patient is here today stating that she is having constant pain as written below. States that the injections are no longer helping and she has seen a psychiatrist for placement of spinal cord stimulator and is scheduled this Friday for her MRIs. Patient stating the leg pain has increased and she is having a difficult time managing it. Patient stating that it is constant and is aching and is making it hard for her to do her activities of daily living. Patient stating that she tried the Lyrica and she could not take it due to inflammation. Patient states her ankle swelled up she does think its helped but both ankle swelled up beyond recognition. Patient also stated that she tried diclofenac and the diclofenac caused her diarrhea. Patient is here to see what can be donefor her pain. PAIN DESCRIPTION: Timing: Constant Character: Aching, Dull Primary Location: midline and L-sided lower back Radiation: mild lateral thigh pain, L>R posterolateral calf/gomez, occasionally low back Exacerbating factors: standing >15-20min, walking 15min, flexion/extension Relieving factors: sitting after walking, leaning on shopping cart Interferes with: walking (uses a walker) Current Pain Medications: Neuropathics: Pamelor 75mg qHS for sleep NSAIDS: Naproxen 500mg BID PRN Muscle Relaxants: Topicals: Other Prescription or OTC Pain Medications: Opioids (when applicable): No question data found. Anti-depressants or Mood-Stabilizers: None Anti-Coagulants: None Therapies Attended (Current or Most Recent): [facility] Physical Therapy 04/17/2023 12/11/2023 [facility] SPINE COMBINATION Questionnaire [facility] Completed Date 04/17/2023 Completed Date 12/11/2023 Comments NIDHI Questionnaire Opiod Risk Tool Completed Date 04/17/2023 Comments 0 No question data found. (All drug screens are appropriate unless indicated otherwise) Notable Events During Course of (more content not included)...[facility]11-[facility] History of Present illness Narrative* Danii Roca MD, PhD - 01/29/2024 9:57 AM EST Images from the original note were not included. [facility] Today's Date: 01/29/2024 Name: Spenser Putnam : 1940 Purpose: Follow-up Patient Evaluation - This is an established patient, returning today for continued evaluation and management of the chief complaint noted below Chief complaint: Spinal stenosis of lumbar region Pertinent Past Medical History: RLS, L CTS, HLD, HTN, melanoma/malignant melanoma, Raynaud's, lumbar spinal stenosis, lumbar spondylolisthesis, DJD of sternoclavicular joint, 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, Pertinent Past Surgeries: s/p R hand squamous cell resection, s/p R CTR, s/p L- spine surgery (L3-5 laminectomy and posterior fusion per MRI report, 2020 and 2022) Plan at last visit: (Seen on 10/16/2023 by Aj Graham CNP) Medications: Requested Prescriptions No prescriptions requested or ordered in this encounter Lyrica 50mg BID - restart Interventional Procedures: Epidural Steroid Injection - Transforaminal Approach (TFESI) under fluoroscopic guidance LEFT-SIDEDat S1 and L5-S1 Supervisor Frame Sample And Pattern Needed: Epidural - YES Anticoagulant - Hold Needed: N/A (Not currently on Anticoagulants) Anticoagulant - Currently Taking: None Allergies (relevant): None Scheduling - Mobility (Can Patient independently transfer on/off an OR or Procedure table?): YES (May schedule at any location) Scheduling - Additional Info: None Studies: None Functional Yarsani: Physical Therapy Consultation (Land-Based) Referrals: No additional considerations at present Follow-up: 2 months Depending on response to the above plan, consider: SCS discussion, titrate Lyrica Interval History: Overall pain and functional disability since last visit: Better New Complaints since last visit: No Today, pt reports that she has had 50% initial relief from Left L5-S1 and S1 TFESI completed on 11/21/2023, but no significant rat exterminator benefit. She has previously had left L4-5 and L5-S1 transforaminal SHERMAN's with 50% relief with a need for a 45 degree oblique due to bone graft material at the L4-5 level. Her repeat epidural at the left L5-S1and S1 neural foramen showed better spread at the S1 level, with severely stenotic spread at the L5-S1 level. Due to the limited benefit that she has had for multiple transforaminal SHERMAN's, she was recommended to present for SCS consult. She reports that she was doing well for several years after her prior lumbar spine surgeries, however in the last 1 year she has had significant lower back pain and more noticeably radicular leg pain, with intermittent lateral thigh, but mostly posteroateral gomez/calf pain to the level of the ankle. Recall: Patient is here today stating that she is having constant pain as written below. States that the injections are no longer helping and she has seen a psychiatrist for placement of spinal cord stimulator and is scheduled this Friday for her MRIs. Patient stating the leg pain has increased and she is having a difficult time managing it. Patient stating that it is constant and is aching and is making it hard for her to do her activities of daily living. Patient stating that she tried the Lyrica and she could not take it due to inflammation. Patient states her ankle swelled up she does think itshelped but both ankle swelled up beyond recognition. Patient also stated that she tried diclofenac and the diclofenac caused her diarrhea. Patient is here to see what can be done for her pain. PAIN DESCRIPTION: Timing: Constant Character: Aching, Dull Primary Location: midline and L-sided lower back Radiation: mild lateral thigh pain, L>R posterolateral calf/gomez, occasionally low back Exacerbating factors: standing >15-20min, walking 15min, flexion/extension Relieving factors: sitting after walking, leaning on shopping cart Interferes with: walking (uses a walker) Current Pain Medications: Neuropathics: Pamelor 75mg qHS for sleep NSAIDS: Naproxen 500mg BID PRN Muscle Relaxants: Topicals: Other Prescription or OTC Pain Medications: Opioids (when applicable): No question data found. Anti-depressants or Mood-Stabilizers: None Anti-Coagulants: None Therapies Attended (Current or Most Recent): [facility] Physical Therapy 04/17/2023 12/11/2023 [facility] SPINE COMBINATION [facility] Completed Date 04/17/2023 Completed Date 12/11/2023 Comments NIDHI Questionnaire Opiod Risk Tool Completed Date 04/17/2023 Comments 0 No question data found. (All drug screens are appropriate unless indicated otherwise) Notabl e Events During Course of Treatment: 04/15/2023 - Initial HPI (Obtained by Jackson Sumner M.D.). DURATION AND ONSET: The pain complaint has been present for approximately 40 years. The pain had a gradual onset. The mechanism of injury is unknown. RED FLAG SYMPTOMS: denies red flags. She saw her spine surgeon, who advised non-op management. She reports she had low back pain and left lower limb radicular symptoms that responded to surgery both times. She developed new onset low back pain and the left lower limb pain one month ago suddenly. She saw Dr. Gomez in 2012, did TFESI at L2-3 x 2, does not recall results. Treatment History: PAIN PROCEDURES: DATE PROCEDURE IMPROVEMENT 11/21/2023 Left L5-S1 and S1 TFESI 50% 08/06/2023 RFA Left Knee (Genic N.) 80% (10/16/2023 ) 05/26/2023 L knee CSI <10 04/30/2023 L TFESI L4-S1 >50% MEDICATIONS Taken TO DATE (for the chief complaint(s)): Neuropathics: Neurontin (Gabapentin, no benefit, caused ankle swelling), Lyrica (Pregabalin - ineffective at 50mg, caused difficulty with sleeping), Pamelor (Nortriptyline- ineffective), Elavil (Amitriptyline) NSAIDS: Naprosyn (Naproxen), Mobic (Meloxicam), Celebrex (no benefit) Muscle Relaxants: None Topicals: None Other Prescription or OTC Pain Medications: Aspirin Opioids: Tramadol, Oxycodone (eg Percocet) Data Reviewed Today: Allergies: ALLERGIES Allergen Reactions Sulfa (Sulfonamide * Swelling, Anaphylaxis Tongue/ throat swelled Phenergan Plain Vomiting Vomiting Hydrocodone-Acetami* GI Upset NAUSEA Procardia [Nifedipi* Swelling legs Social History Tobacco Use Smoking status: Never Smokeless tobacco: Never Vaping Use Vaping status: Never Used Substance Use Topics Alcohol use: Yes Alcohol/week: 3.9 standard drinks of alcohol Types: 3 Mixed Drinks per week Comment: 3-4/week Drug use: No 01/28/2024 01/29/2024 INTAKE PAIN ASSESSMENT Are you having pain associated with your visit today? Yes, Provider notified Yes, Provider notified Pain Scales Verbal (Numeric Rating or Visual Analog Scale) Pain Level 8 Pain Location Leg-Left Description Aching;Throbbing;Other: See comment Aching;Throbbing Duration Units Weeks Months Frequency Continuous Continuous Intervention/Comfort measure Medication Medication;Reposition;Relaxation;Heat;Positioning;Therapeutic techniques-CPRP Compliance: PDMP website checked and validated on 01/29/2024 by Danii Roca MD, PhD All prescriptions have been APPROPRIATELY filled. No suspicious activity was identified. 04/17/2023 12/11/2023 AG SPINE COMBINATION Questionnaire GREENLIGHT Completed Date 04/17/2023 Completed Date 12/11/2023 Comments NIDHI Questionnaire Opiod Risk Tool Completed Date 04/17/2023 Comments 0 (All drug screens are appropriate unless indicated otherwise) Risk Assessment: EVI-7: 04/17/2023 12/31/2023 EVI - 7 SCORES Score 0 9 (0-4) minimal anxiety, (5-9) mild anxiety, (10-14) moderate anxiety, (15-21) severe anxiety PHQ-9: 10/17/2021 04/17/2023 12/31/2023 PHQ-9 Score 5 0 6 (0-4) minimal depression, (5-9) mild depression, (10-14) moderate depression, (15-19) moderately severe depression, (20-27) severe depression Diagnostic Studies: Relevant Imaging: MRI Spine Report MRI THORACIC SPINE WO IVCON Exam End: 01/17/2024 1:01 PM (Final result) Narrative: * * *Final Report* * * DATE OF EXAM: Jan 17 2024 1:01PM M [id number] - MRI THORACIC SPINE WO IVCON / PROCEDURE REASON: Pain in thoracic spine * * * * Physician Interpretation * * * * EXAMINATION: MRI THORACIC SPINE WO IVCON CLINICAL HISTORY: Pain in thoracic spine, chronic. TECHNIQUE: Routine thoracic spine MR protocol. MQ: [id number] COMPARISON: None. RESULT: Counting reference: Craniocervical and lumbosacral junctions. For the purposes of this report, L4-5 is considered the level of the iliac crest and assume there are 5 lumbar-type vertebrae. Anatomic variant: None. Localizer images: Discectomies and posterior fusion at L3-L5. Alignment: Accentuation of normal thoracic kyphosis. Cord: The visualized cord is within normal limits of signal intensity and morphology. Conus terminates at L1 and is normal in morphology and signal. Bone marrow signal/fracture: Type II endplate changes adjacent to T7-T8 No evidence of pathologic marrow infiltration. Small Schmorl's nodule on the current plate of T3 moderate loss of disc height at T7-T8 reflecting degeneration. Thoracic paraspinal soft tissues: The paraspinal soft tissues are within normal limits. Canal and foramina: The thoracic canal and foramina are patent. Impression: IMPRESSION: Canal and foramina are patent. Mild degenerative disc disease at T7-T8. Anatomic Thoracic/Lumbar Variant: None. L4-5 is considered the level of the iliac crest and assume there are 5 lumbar-type vertebrae. Ring Facer: PSCB Transcribe Date/Time: Jan 17 2024 1:14P Dictated by : KELLY FERNANDEZ MD This examination was interpreted and the report reviewed and electronically signed by: KELLY FERNANDEZ MD on Jan 17 2024 1:18PM EST MRI L-spine 03/2023: IMPRESSION: Postoperative changes with hardware and laminectomies at the L3-L5 levels. Multilevel degenerative changes, most significant at L2-L3 where there is moderate to severe canal stenosis (see full level by level discussion above). Otherwise, unremarkable MRI lumbar spine without contrast. RESULT: Counting reference: Lumbosacral junction. For the purposes of this report, L4-5 is considered the level of the iliac crest and assume there are 5 lumbar-type vertebrae. Anatomic variant: None. Localizer images: No additional significant findings. Alignment: Disc space narrowing seen at L3-L4. 2 mm grade 1 retrolisthesis of L2 on L3. 3 mm grade 1 retrolisthesis of L3 on L4. 4 mm grade 1 anterolisthesis of L5 on S1. Bone marrow signal/fracture: Endplate degenerative signal change seen at L2-L3, L4-L5, and L5-S1. Susceptibility artifact from interbody fusion hardware at L3-L4, posterior fusion hardware at L4-L5, and left lateral screws at L3-L4 seen. Laminectomies seen at L3-L5. Conus: The conus is within normal limits of signal intensity and morphology. Paraspinal soft tissues: Disruption of the posterior fat planes at the mid and lower lumbar levels secondary to prior surgery. Lower thoracic spine: Visualized lower thoracic canal and foramina are patent. L1-L2: Minimal bulging annulus. Canal and foramina are patent. L2-L3: Bulging annulus and moderate to severe facet degenerative changes. Moderate to severe canal stenosis. Mild to moderate left and mild right foraminal narrowing. L3-L4: Bulging annulus and moderate facet degenerative change. Mild to moderate canal stenosis and left greater than right subarticular recess narrowing. Moderate bilateral foraminal narrowing. L4-L5: Bulging annulus. Canal is decompressed. Neural foramina are patent. L5-S1: Mild bulging annulus. Moderate facet degenerative changes. Mild to moderate left and mild right foraminal narrowing. Canals patent. Sacrum and iliac wings: Aside from degenerative change at L5-S1, the visualized sacrum and iliac wings are unremarkable. Compared to the prior MRI dated 06/19/2012, fusion hardware is new. Previously seen canal narrowing at L4-L5 has improved. Degenerative changes at other levels, most notably at L2-L3, have progressed. X-ray Lumbar 03/2023 RESULT: 5 nonrib-bearing lumbar-type vertebrae. For numbering purposes, L4-5 is at the level of the iliac crest. Pedicle plate and screw device transfixes L4 and L5. No evidence of fracture or loosening. Disc spacer at L3-4 with hardware fixation. Mild grade 1 spondylolisthesis of L4 on L5, and L5 on S1. Moderate to severe disc space narrowing at L2-3 with vacuum phenomenon. Osteopenia. SI joints appear unremarkable IMPRESSION: DEGENERATIVE, POSTOPERATIVE CHANGE AND ALIGNMENT ABNORMALITIES DESCRIBED X-ray Rt. Hip 02/2023 RESULT: Bony mineralization within normal limits. Mild to moderate degenerative narrowing and bony spurring at the right hip joint. No acute fracture or dislocation is seen at the right hip. Lower lumbar fusion hardware from L3 to L5 IMPRESSION: Mild to moderate degenerative change with prominent spurring at the right hip similar to the previous MRI Lumbar 11/2020 Electrodiagnostic Study (EMG): 08/17/2020- Recent Labs: Creatinine Date Value Ref Range Status 11/28/2023 0.99 (H) 0.58 - 0.96 mg/dL Final eGFR, Date Value Ref Range Status 11/06/2012 >60 Final No results found for: PCGLUCOSE Current Medications, Past Medical History, Past Surgical History, Family History, Social History and Review of Systems: On today's date, noted above, I have confirmed and edited as necessary, the PFSH and ROS obtained by others. Physical Exam: 01/29/24 0931 Pulse: 89 Resp: 17 SpO2: 99% Constitutional: well appearing Eyes: Conjunctiva clear. No discharge from eyes Cardiovascular: Appears well perfused Lymphatic: No visible regional lymphadenopathy Skin: No visible rashes or ecchymosis Psychiatric: Full affect, Alert, Pleasant Palpation: (-) Midline cervical thoracic/lumbosacral spine tenderness (+) Cervical/Thoracic/Lumbosacral paraspinal muscle tenderness (-) SIJ tenderness (-) piriformis muscle tenderness (-) Greater trochanter tenderness bilaterally ROM: Lumbar spine: flexion, extension, side-bending, rotation all full and painless Manuevers: (-) SLR bilaterally (+) Facet loading (Rios's Test) bilaterally (-) Jack's/FABERs bilaterally (-) Venus Finger Test to SIJ on two attempts Cervical spine: (-) Spurling's negative bilaterally (-) L'Hermitte's sign negative. ROM: Cervical spine: rotation, side-bending extension and flexion of cervical spine smooth and painless. Muscles: muscle spasm, trigger points, atrophy, fasciculation not appreciated 5/5 strength in all upper and lower extremity myotomes. Gait normal. Heel and toe gait normal. Neuro: Reflexes: DTRs 2+ in biceps, triceps, brachialis, patellar and achilles bilaterally. Wilson's and Babinski negative bilaterally. No clonus. Sensation: grossly intact to light touch, cold, pin prick; no presence of allodynia, hyperesthesia,hypoesthesia, hyperpathia IMPRESSION: 83 year old female with RLS, L CTS, HLD, HTN, melanoma, Raynaud's, RLS, lumbar spinal stenosis, lumbar spondylolisthesis, valvular heart disease, malignant neoplasm of skin, DJD of sternoclavicular joint, 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, s/p R hand squamous cell resection, s/p R CTR, s/p L-spine surgery (L3-5 laminectomy and posterior fusion per MRI report, 2020 and 2022) who presents regarding recurrent low back and L LE radicular leg symptoms. Pt has complaint(s) of recurrent low back pain and left lower limb radicular symptoms in a predominantly L5 dermatomal distribution, however repeat MRI L- spine shows evidence of lumbar spinal stenosis (MRI L-spine 2023 notable for moderate to severe L2-3, mild to moderate L3-4 central canal stenosis) and lumbar NF stenosis (mild to moderate L L2-3 and mild R L2-3 NF stenosis, moderate bilateral NF stenosis at L3-4, mild to moderate L and mild R NF stenosis at L5-S1) in setting of known multilevel listhesis. Patient has evidence of moderate to severe L2-3 central canal stenosis as well as moderate L3-4 central stenosis in the setting of adjacent segment disease from her prior L3-5 laminectomy and posterior fusion. She reports significant symptoms of neurogenic claudication, as well as significant left L5 dermatomal distribution of pain. She has had limited relief from left L4-5 and L5-S1 transforaminal SHERMAN as well as left L5-S1 and S1 transforaminal SHERMAN's, and was not recommended further surgical intervention. Due to the above she was recommended to complete workup for SCS evaluation. Patient was recommended trialing a caudal SHERMAN for her radicular symptoms to assess if particulate steroid may provide her more long-lasting benefit. She would further benefit from bilateral L2-3 transforaminal SHERMAN's to target the mostsevere portion of her central canal stenosis at the L2-3 level. If these fail to provide benefit, plan was made to proceed with a SCS trial in preparation for implant. The risks and benefits of proceeding with a SCS trial including but not limited to epidural abscessformation, epidural hematoma formation, dural puncture/PDPH, nerve injury, incontinence and weakness were discussed with the patient. Patient was understanding of all the risks and benefits of this procedure, and agreed to proceed as scheduled. Diagnoses:(M54.16) Lumbar radiculopathy (primary encounter diagnosis) (M48.061) Spinal stenosis, lumbar region, without neurogenic claudication PLAN: Spenser Putnam would benefit from the following to reach personal goals for decreasing pain, improving function and work participation, and/or improving quality of life: Medications: Requested Prescriptions No prescriptions requested or ordered in this encounter - stop Celebrex Interventional Procedures: - caudal SHERMAN - bilateral L2-3 TFESI - SCS trial ([employer]) if no benefit from the above interventions Studies: None Functional Yarsani: Patient reporting she did physical therapy which did not help pain. Referrals: Psych eval Has been completed. Follow-up: after caudal SHERMAN and TFESI Depending on response to the above plan, consider: SCS trial/implant Compliance and Clinic Policies Reviewed and/or Discussed Today: None Attribution: In addition to reviewing the information noted above, some elements copied from my most recent clinical note(s), including the physical exam (completed in entirety today), and the impression and plan sections, have been updated where appropriate. All reflect current medical decision making from today's date. Danii Roca MD, PhD Pain Management [facility] * Malika Jones LPN - 01/29/2024 9:28 AM EST Review of Systems Constitutional: Positive for activity change. Negative for chills, fever and unexpected weight change. Genitourinary: Negative for difficulty urinating. Musculoskeletal: Positive for gait problem. Negative for arthralgias, back pain, joint swelling, myalgias, neck pain and neck stiffness. Neurological: Positive for weakness. Negative for numbness and headaches. Psychiatric/Behavioral: Positive for sleep disturbance. Negative for dysphoric mood and suicidal ideas. The patient is not nervous/anxious. [facility] NoteHNO ID: [id number] Author: MALIKA JONES LPN Service: ? Author Type: LICENSED NURSE Type: Progress Notes Filed: 01/29/2024 10:43 Note Text: Review of Systems Constitutional: Positive for activity change. Negative for chills, fever and unexpected weight change. Genitourinary: Negative for difficulty urinating. Musculoskeletal: Positive for gait problem. Negative for arthralgias, back pain, joint swelling, myalgias, neck pain and neck stiffness. Neurological: Positive for weakness. Negative for numbness and headaches. Psychiatric/Behavioral: Positive for sleep disturbance. Negative for dysphoric mood and suicidal ideas. The patient is not nervous/anxious.[facility]11-09-[facility] History of Present illness Narrative* Hector Gee, (R) - 01/17/2024 11:00 AM ESTSummary: MRI Radiology Service Progress Note PATIENT NAME: Spenser Putnam DATE OF SERVICE: January 17, 2024 TIME: 1:00 PM PATIENT IDENTITY VERIFICATION COMPLETED USING TWO (2) IDENTIFIERS: Name and Date of confirmedby patient verbally. FALL SCREENING: Has the patient had 2 falls in the last year or 1 fall with injury or currently using an Ambulatory Assistive Device (Walker, Cane, Wheelchair, Crutches, etc.)? No PATIENT GENDER DATA: Female. status: : No status: NO. PATIENT RELEVANT IMPLANT DATA REVIEWED: Yes PATIENT PRESENTS WITH AN IMPLANTABLE OR ATTACHED OPERATIONS ANALYST: No RADIOLOGY DEPARTMENT: MR; Exam(s) Completed: Spine: Thoracic spine PERIPHERAL IV DATA: Not applicable SIGNED BY: LAWRENCE Velazquez) January 17, 2024 1:00 PM documented in this encounterC[facility]11-09-2024 NoteHNO ID: [id number] Author: HECTOR GEE RT(R) Service: Radiology Author Type: Technologist Type: Progress Notes Filed: 01/17/2024 13:00 Note Text: Summary: MRI Radiology Service Progress Note PATIENT NAME: Spenser Putnam DATE OF SERVICE: January 17, 2024 TIME: 1:00 PM PATIENT IDENTITY VERIFICATION COMPLETED USING TWO (2) IDENTIFIERS: Name and Date of confirmed by patient verbally. FALL SCREENING: Has the patient had 2 falls in the last year or 1 fall with injury or currently using an Ambulatory Assistive Device (Walker, Cane, Wheelchair, Crutches, etc.)? No PATIENT GENDER DATA: Female. status: : No status: NO. PATIENT RELEVANT IMPLANT DATA REVIEWED: Yes PATIENT PRESENTS WITH AN IMPLANTABLE OR ATTACHED OPERATIONS ANALYST: No RADIOLOGY DEPARTMENT: MR; Exam(s) Completed: Spine: Thoracic spine PERIPHERAL IV DATA: Not applicable SIGNED BY: RT Marcus(R) January 17, 2024 1:00 [facility] of Present illness Narrative* Aj Graham APRN.JOVANY - 01/13/2024 2:00 PM EST Images from the original note were not included. [facility] Today's Date: 01/13/2024 Name: Spenser Putnam : 1940 Purpose: Follow-up Patient Evaluation - This is an established patient, returning today for continued evaluation and management of the chief complaint noted below Chief complaint: Spinal stenosis of lumbar region Pertinent Past Medical History: Insomnia, RLS, Carpal tunnel - left, HLD, HTN, Valvular heart disease, Raynaud's phenomenon, H/O other malignant neoplasm of skin, Lumbar disc herniation, DJD of sternoclavicular joint, 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, Pertinent Past Surgeries: Lumbar interbody fusion L3-4 (2020), Lumbar fusion (2012), Plan at last visit: (Seen on 10/16/2023 by Aj Graham CNP) Medications: Requested Prescriptions No prescriptions requested or ordered in this encounter Lyrica 50mg BID - restart Interventional Procedures: Epidural Steroid Injection - Transforaminal Approach (TFESI) under fluoroscopic guidance LEFT-SIDEDat S1 and L5-S1 Supervisor Frame Sample And Pattern Needed: Epidural - YES Anticoagulant - Hold Needed: N/A (Not currently on Anticoagulants) Anticoagulant - Currently Taking: None Allergies (relevant): None Scheduling - Mobility (Can Patient independently transfer on/off an OR or Procedure table?): YES (May schedule at any location) Scheduling - Additional Info: None Studies: None Functional Yarsani: Physical Therapy Consultation (Land-Based) Referrals: No additional considerations at present Follow-up: 2 months Depending on response to the above plan, consider: SCS discussion, titrate Lyrica Interval History: Overall pain and functional disability since last visit: Better New Complaints since last visit: No Patient is here today stating that she is having constant pain as written below. States that the injections are no longer helping and she has seen a psychiatrist for placement of spinal cord stimulator and is scheduled this Friday for her MRIs. Patient stating the leg pain has increased and she is having a difficult time managing it. Patient stating that it is constant and is aching and is making it hard for her to do her activities of daily living. Patient stating that she tried the Lyrica and she could not take it due to inflammation. Patient states her ankle swelled up she does think itshelped but both ankle swelled up beyond recognition. Patient also stated that she tried diclofenac and the diclofenac caused her diarrhea. Patient is here to see what can be done for her pain. PAIN DESCRIPTION: Timing: Constant Character: Aching, Dull Primary Location: left knee Radiation: lateral thigh and gomez, occasionally low back Exacerbating factors: Standing, Walking Relieving factors: Sitting, Lying Down Interferes with: walking (uses a walker) Current Pain Medications: Neuropathics: Pamelor 75mg qHS for sleep NSAIDS: Naproxen 500mg BID PRN Muscle Relaxants: Topicals: Other Prescription or OTC Pain Medications: Opioids (when applicable): No question data found. Anti-depressants or Mood-Stabilizers: None Anti-Coagulants: None Therapies Attended (Current or Most Recent): [facility] Physical Therapy 04/17/2023 12/11/2023 AG SPINE COMBINATION Questionnaire [facility] Completed Date 04/17/2023 Completed Date 12/11/2023 Comments NIDHI Questionnaire Opiod Risk Tool Completed Date 04/17/2023 Comments 0 No question data found. (All drug screens are appropriate unless indicated otherwise) Notabl e Events During Course of Treatment: 04/15/2023 - Initial HPI (Obtained by Jackson Sumner M.D.). DURATION AND ONSET: The pain complaint has been present for approximately 40 years. The pain had a gradual onset. The mechanism of injury is unknown. RED FLAG SYMPTOMS: denies red flags. She saw her spine surgeon, who advised non-op management. She reports she had low back pain and left lower limb radicular symptoms that responded to surgery both times. She developed new onset low back pain and the left lower limb pain one month ago suddenly. She saw Dr. Gomez in 2012, did TFESI at L2-3 x 2, does not recall results. Treatment History: PAIN PROCEDURES: DATE PROCEDURE IMPROVEMENT 11/21/2023 L TFESI L5-S1 50% 08/06/2023 RFA Left Knee (Genic N.) 80% (10/16/2023 ) 05/26/2023 L knee CSI <10 04/30/2023 L TFESI L4-S1 >50% MEDICATIONS Taken TO DATE (for the chief complaint(s)): Neuropathics: Neurontin (Gabapentin), Lyrica (Prebabalin), Pamelor (Nortriptyline), Elavil (Amitriptyline) NSAIDS: Naprosyn (Naproxen), Mobic (Meloxicam) Muscle Relaxants: None Topicals: None Other Prescription or OTC Pain Medications: Aspirin Opioids: Tramadol, Oxycodone (eg Percocet) Data Reviewed Today: Allergies: ALLERGIES Allergen Reactions Sulfa (Sulfonamide * Swelling, Anaphylaxis Tongue/ throat swelled Phenergan Plain Vomiting Vomiting Hydrocodone-Acetami* GI Upset NAUSEA Procardia [Nifedipi* Swelling legs Social History Tobacco Use Smoking status: Never Smokeless tobacco: Never Vaping Use Vaping status: Never Used Substance Use Topics Alcohol use: Yes Alcohol/week: 3.9 standard drinks of alcohol Types: 3 Mixed Drinks per week Comment: 3-4/week Drug use: No 12/15/2023 01/13/2024 INTAKE PAIN ASSESSMENT Are you having pain associated with your visit today? Yes, Provider notified Yes, Provider notified Pain Scales Verbal (Numeric Rating or Visual Analog Scale) Pain Level 9 8 Pain Location Leg-Right Leg-Left Description Aching;Sharp;Shooting;Sore Duration Amount of Time 5 Duration Units Months Years Frequency Continuous Continuous Intervention/Comfort measure Heat;Pillow support;Positioning Medication;Reposition;Relaxation Compliance: PDMP website checked and validated on 01/13/2024 by Aj Graham APRN.[employer] All prescriptions have been APPROPRIATELY filled. No suspicious activity was identified. 04/17/2023 12/11/2023 AG SPINE COMBINATION Questionnaire [facility] Completed Date 04/17/2023 Completed Date 12/11/2023 Comments NIDHI Questionnaire Opiod Risk Tool Completed Date 04/17/2023 Comments 0 (All drug screens are appropriate unless indicated otherwise) Risk Assessment: EVI-7: 04/17/2023 12/31/2023 EVI - 7 SCORES Score 0 9 (0-4) minimal anxiety, (5-9) mild anxiety, (10-14) moderate anxiety, (15-21) severe anxiety PHQ-9: 10/17/2021 04/17/2023 12/31/2023 PHQ-9 Score 5 0 6 (0-4) minimal depression, (5-9) mild depression, (10-14) moderate depression, (15-19) moderately severe depression, (20-27) severe depression Diagnostic Studies: Relevant Imaging: MRI Spine Report MRI LUMBAR SPINE WO IVCON Exam End: 03/27/2023 1:23 PM (Final result) Narrative: * * *Final Report* * * DATE OF EXAM: Mar 27 2023 1:23PM UMER Banuelos - MRI LUMBAR SPINE WO IVCON / PROCEDURE REASON: multiple diagnoses * * * * Physician Interpretation * * * * EXAMINATION: MRI LUMBAR SPINE WO IVCON CLINICAL HISTORY: Radiculopathy of lumbar region Spinal stenosis of lumbar region with neurogenic claudication. TECHNIQUE: Routine lumbosacral spine MR protocol without gadolinium. MQ: [id number] COMPARISON: MRI lumbar spine dated 06/19/2012. Lumbar spine radiographs dated 03/21/2023. RESULT: Counting reference: Lumbosacral junction. For the purposes of this report, L4-5 is considered the level of the iliac crest and assume there are 5 lumbar-type vertebrae. Anatomic variant: None. Localizer images: No additional significant findings. Alignment: Disc space narrowing seen at L3-L4. 2 mm grade 1 retrolisthesis of L2 on L3. 3 mm grade 1 retrolisthesis of L3 on L4. 4 mm grade 1 anterolisthesis of L5 on S1. Bone marrow signal/fracture: Endplate degenerative signal change seen at L2-L3, L4-L5, and L5-S1. Susceptibility artifact from interbody fusion hardware at L3-L4, posterior fusion hardware at L4-L5, and left lateral screws at L3-L4 seen. Laminectomies seen at L3-L5. Conus: The conus is within normal limits of signal intensity and morphology. Paraspinal soft tissues: Disruption of the posterior fat planes at the mid and lower lumbar levels secondary to prior surgery. Lower thoracic spine: Visualized lower thoracic canal and foramina are patent. L1-L2: Minimal bulging annulus. Canal and foramina are patent. L2-L3: Bulging annulus and moderate to severe facet degenerative changes. Moderate to severe canal stenosis. Mild to moderate left and mild right foraminal narrowing. L3-L4: Bulging annulus and moderate facet degenerative change. Mild to moderate canal stenosis and left greater than right subarticular recess narrowing. Moderate bilateral foraminal narrowing. L4-L5: Bulging annulus. Canal is decompressed. Neural foramina are patent. L5-S1: Mild bulging annulus. Moderate facet degenerative changes. Mild to moderate left and mild right foraminal narrowing. Canals patent. Sacrum and iliac wings: Aside from degenerative change at L5-S1, the visualized sacrum and iliac wings are unremarkable. Compared to the prior MRI dated 06/19/2012, fusion hardware is new. Previously seen canal narrowing at L4-L5 has improved. Degenerative changes at other levels, most notably at L2-L3, have progressed. Impression: IMPRESSION: Postoperative changes with hardware and laminectomies at the L3-L5 levels. Multilevel degenerative changes, most significant at L2-L3 where there is moderate to severe canal stenosis (see full level by level discussion above). Otherwise, unremarkable MRI lumbar spine without contrast. Anatomic Lumbar Variant: None. L4-5 is considered the level of the iliac crest and assume there are 5 lumbar-type vertebrae. Ring Facer: [facility] Transcribe Date/Time: Mar 27 2023 1:25P Dictated by : RENEE CRUZ MD This examination was interpreted and the report reviewed and electronically signed by: RENEE CRUZ MD on Mar 27 2023 1:35PM EST X-ray Lumbar 03/2023 RESULT: 5 nonrib-bearing lumbar-type vertebrae. For numbering purposes, L4-5 is at the level of the iliac crest. Pedicle plate and screw device transfixes L4 and L5. No evidence of fracture or loosening. Disc spacer at L3-4 with hardware fixation. Mild grade 1 spondylolisthesis of L4 on L5, and L5 on S1. Moderate to severe disc space narrowing at L2-3 with vacuum phenomenon. Osteopenia. SI joints appear unremarkable IMPRESSION: DEGENERATIVE, POSTOPERATIVE CHANGE AND ALIGNMENT ABNORMALITIES DESCRIBED X-ray Rt. Hip 02/2023 RESULT: Bony mineralization within normal limits. Mild to moderate degenerative narrowing and bony spurring at the right hip joint. No acute fracture or dislocation is seen at the right hip. Lower lumbar fusion hardware from L3 to L5 IMPRESSION: Mild to moderate degenerative change with prominent spurring at the right hip similar to the previous MRI Lumbar 11/2020 Electrodiagnostic Study (EMG): 08/17/2020- Recent Labs: Creatinine Date Value Ref Range Status 11/28/2023 0.99 (H) 0.58 - 0.96 mg/dL Final eGFR, Date Value Ref Range Status 11/06/2012 >60 Final No results found for: PCGLUCOSE Current Medications, Past Medical History, Past Surgical History, Family History, Social History and Review of Systems: On today's date, noted above, I have confirmed and edited as necessary, the PFSH and ROS obtained by others. Physical Exam: 01/13/24 1402 Pulse: 86 Resp: 16 SpO2: 99% Physical Exam Vitals reviewed. Constitutional: General: She is not in acute distress. Appearance: She is not ill-appearing. HENT: Head: Normocephalic and atraumatic. Eyes: Conjunctiva/sclera: Conjunctivae normal. Cardiovascular: Pulses: Normal pulses. Pulmonary: Effort: Pulmonary effort is normal. No respiratory distress. Musculoskeletal: Lumbar back: Spasms and bony tenderness present. Decreased range of motion. Positive right straightleg raise test and positive left straight leg raise test. Skin: General: Skin is warm and dry. Neurological: Mental Status: She is alert and oriented to person, place, and time. Gait: Gait abnormal (antalgic). Psychiatric: Mood and Affect: Mood and affect normal. Behavior: Behavior normal. Behavior is cooperative. IMPRESSION: 83 year old female presents with complaint(s) of recurrent low back pain and left lowerlimb radicular symptoms in a predominantly L5 dermatomal distribution. She has prior fusion at L4-5, with central canal stenosis at L3-4. Patient is scheduled to see Dr. Roca regarding the spinal cord stimulator has seen Psych for evaluation and is in the midst of getting her MRIs to prepare for the spinal cord stimulator. At this point the patient is taking Pamelor and I feel limited in what I can prescribe to her to help her with the radicular symptoms. I will however try an NSAID to decrease inflammation. Patient will stop the diclofenac due to complaints of diarrhea and attempt Celebrex. Diagnoses:(M54.16) Lumbar radiculopathy (primary encounter diagnosis) (M48.061) Spinal stenosis, lumbar region, without neurogenic claudication (M47.816) Lumbar spondylosis (M53.3) Disorder of sacrum PLAN: Spenser Putnam would benefit from the following to reach personal goals for decreasing pain, improving function and work participation, and/or improving quality of life: Medications: Requested Prescriptions No prescriptions requested or ordered in this encounter Interventional Procedures: none Studies: MRI: Thoracic SpineScheduled for this week. Functional Yarsani: Patient reporting she did physical therapy which did not help pain. Referrals: Psych eval Has been completed. Follow-up:Patient is scheduled with Dr. Roca for spinal cord stimulator. Depending on response to the above plan, consider: SCS discussion Compliance and Clinic Policies Reviewed and/or Discussed Today: None Attribution: In addition to reviewing the information noted above, some elements copied from my most recent clinical note(s), including the physical exam (completed in entirety today), and the impression and plan sections, have been updated where appropriate. All reflect current medical decision making from today's date. Aj Graham APRN.[facility] * Ramiro Anderson MA - 01/13/2024 1:49 PM EST Review of Systems Constitutional: Negative for activity change, chills, fever and unexpected weight change. Genitourinary: Negative for difficulty urinating. Musculoskeletal: Positive for arthralgias, gait problem, joint swelling and myalgias. Negative for back pain, neck pain and neck stiffness. Neurological: Negative for weakness, numbness and headaches. Psychiatric/Behavioral: Negative for dysphoric mood, sleep disturbance and suicidal ideas. The patient is not nervous/anxious. documented in this encounterC[facility] NoteHNO ID: [id number] Author: AJ GRAHAM APRN.JOVANY Service: ? Author Type: Nurse Practitioner Type: Progress Notes Filed: 01/13/2024 15:06 Note Text: [facility] [place] [facility] Today's Date: 01/13/2024 Name: Spenser Putnam : 1940 Purpose: Follow-up Patient Evaluation - This is an established patient, returning today for continued evaluation and management of the chief complaint noted below Chief complaint: Spinal stenosis of lumbar region Pertinent Past Medical History: Insomnia, RLS, Carpal tunnel - left, HLD, HTN, Valvular heart disease, Raynaud's phenomenon, H/O other malignant neoplasm of skin, Lumbar disc herniation, DJD of sternoclavicular joint, 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, Pertinent Past Surgeries: Lumbar interbody fusion L3-4 (2020), Lumbar fusion (2012), Plan at last visit: (Seen on 10/16/2023 by Aj Graham CNP) Medications: Requested Prescriptions No prescriptions requested or ordered in this encounter Lyrica 50mg BID - restart Interventional Procedures: Epidural Steroid Injection - Transforaminal Approach (TFESI) under fluoroscopic guidance LEFT-SIDED at S1 and L5-S1 Supervisor Frame Sample And Pattern Needed: Epidural - YES Anticoagulant - Hold Needed: N/A (Not currently on Anticoagulants) Anticoagulant - Currently Taking: None Allergies (relevant): None Scheduling - Mobility (Can Patient independently transfer on/off an OR or Procedure table?): YES (May schedule at any location) Scheduling - Additional Info: None Studies: None Functional Yarsani: Physical Therapy Consultation (Land-Based) Referrals: No additional considerations at present Follow-up: 2 months Depending on response to the above plan, consider: SCS discussion, titrate Lyrica Interval History: Overall pain and functional disability since last visit: Better New Complaints since last visit: No Patient is here today stating that she is having constant pain as written below. States that the injections are no longer helping and she has seen a psychiatrist for placement of spinal cord stimulator and is scheduled this Friday for her MRIs. Patient stating the leg pain has increased and she is having a difficult time managing it. Patient stating that it is constant and is aching and is making it hard for her to do her activities of daily living. Patient stating that she tried the Lyrica and she could not take it due to inflammation. Patient states her ankle swelled up she does think its helped but both ankle swelled up beyond recognition. Patient also stated that she tried diclofenac and the diclofenac caused her diarrhea. Patient is here to see what can be donefor her pain. PAIN DESCRIPTION: Timing: Constant Character: Aching, Dull Primary Location: left knee Radiation: lateral thigh and gomez, occasionally low back Exacerbating factors: Standing, Walking Relieving factors: Sitting, Lying Down Interferes with: walking (uses a walker) Current Pain Medications: Neuropathics: Pamelor 75mg qHS for sleep NSAIDS: Naproxen 500mg BID PRN Muscle Relaxants: Topicals: Other Prescription or OTC Pain Medications: Opioids (when applicable): No question data found. Anti-depressants or Mood-Stabilizers: None Anti-Coagulants: None Therapies Attended (Current or Most Recent): [facility] Physical Therapy 04/17/2023 12/11/2023 AG SPINE COMBINATION Questionnaire GREENLIGHT Completed Date 04/17/2023 Completed Date 12/11/2023 Comments NIDHI Questionnaire Opiod Risk Tool Completed Date 04/17/2023 Comments 0 No question data found. (All drug screens are appropriate unless indicated otherwise) Notable Events During Course of Treatment: 04/15/2023 - Initial HPI (Obtained by Jackson Sumner M.D.). DURATION AND ONSET: The pain complaint has been present for approximately 40 years. The pain had a gradual onset. The mechanism of injury is unknown. RED FLAG SYMPTOMS: denies red flags. She saw her spine surgeon, who advised non-op management. She reports she had low back pain and left lower limb radicular symptoms that responded to surgery both times. She developed new onset low back pain and the left lower limb pain one month ago suddenly. She saw Dr. Gomez in 2012, did TFESI at L2-3 x 2, does not recall results. Treatment History: PAIN PROCEDURES: DATE PROCEDURE IMPROVEMENT 11/21/2023 L TFESI L5-S1 50% 08/06/2023 RFA Left Knee (Genic N.) 80% (10/16/2023 ) 05/26/2023 L knee CSI <10 04/30/2023 L TFESI L4-S1 >50% MEDICATIONS Taken TO DATE (for the chief complaint(s)): Neuropathics: Neurontin (Gabapentin), Lyrica (Prebabalin), Pamelor (Nortriptyline), Elavil (Amitriptyl (more content not included)...[facility]11-05-2024 NoteHNO ID: [id number] Author: RAMIRO ANDERSON MA Service: ? Author Type: Computer Equipment Installer Type: Progress Notes Filed: 01/13/2024 15:06 Note Text: Review of Systems Constitutional: Negative for activity change, chills, fever and unexpected weight change. Genitourinary: Negative for difficulty urinating. Musculoskeletal: Positive for arthralgias, gait problem, joint swelling and myalgias. Negative for back pain, neck pain and neck stiffness. Neurological: Negative for weakness, numbness and headaches. Psychiatric/Behavioral: Negative for dysphoric mood, sleep disturbance and suicidal ideas. The patient is not nervous/anxious.[facility] 01-12-2024 Telephone encounter Note* Telephone Encounter - Ashley Rios - 01/12/2024 2:50 PM EST 01/11- Scheduled patient with Aj tomorrow in [place] to discuss the new pain she's having in her leg. Ashley Rios [facility]11-04-2024 Miscellaneous Notes* Telephone Encounter - Ashley Ferrer - 01/12/2024 2:50 PM EST 01/11- Scheduled patient with Aj tomorrow in [place] to discuss the new pain she's having in her leg. Ashley Rios * Telephone Encounter - Malika Jones LPN - 01/12/2024 1:24 PM EST Patient left voicemail that her pain meds are not working , difficulty sleeping and now the other leg is hurting . Called patient and she is wanting sooner appt. To discuss new leg pain. documented in this encounterC[facility]11-04-[facility]24 Telephone encounter Note * Telephone Encounter - Malika Jones LPN - 01/12/2024 1:24 PM EST Patient left voicemail that her pain meds are not working , difficulty sleeping and now the other leg is hurting . Called patient and she is wanting sooner appt. To discuss new leg pain. [facility]10-28-[facility] History of Present illness Narrative* Stanton Mesa, - 01/05/2024 1:00 PM EDT [facility] INITIAL PSYCHIATRIC EVALUATION PATIENT: Spenser Putnam MRD: [id number] DATE: January 05, 2024 IDENTIFYING INFORMATION: Spenser is a 83 year old female with no past psychiatric history. Patient was referred by pain management team. CHIEF COMPLAINT: SCS clearance HPI: Patient goals for treatment: to be able to enjoy life again, go and do things I used to do. - patient would like to go shopping, etc She wants to be able to walk. She has had 2 surgeries done to her back. She has tried and been on medications, injections, physical therapy, and none of them have worked sufficiently. Back pain is currently about a 7-8/10. She is hopeful it brings her pain down to 1-2/10. She does not know if this is a reasonable expectation or not. She notes she is going to discuss this with her pain management doctor soon. If surgery is unsuccessful, patient states she has not spent too much time thinking about it, she notes her depression will likely worsen. She is adamant it will not cause her to become suicidal. She does not think she is capable of committing suicide. She will be very upset. She states she will discuss the chances that it works and the chances of complications with her pain management doctor at her next appointment with him. Endorses passive suicidal thoughts once every couple weeks when the pain is bad or when she is having a tough day. Denies any active suicidal thoughts, nor any intent States she will never commit suicide because of her estelita, she does not believe she would go to [facility]. Somatic complaints: back and leg pain PSYCHIATRIC ROS: Depression: + Depressed mood, + Decreased energy, and + Psychomotor slowing with passive thoughts of /suicide, but no intent or plan Xochilt: Denies any history of hypomanic or manic episodes. Psychosis: Denies any auditory / visual hallucination or paranoid ideation. EVI: Excessive worry more than not, Difficulty controlling worry, Restless / Keyed up, Irritable,and Muscle tension OCD: Denies any symptoms of OCD. PTSD: Denies any PTSD symptoms. PSYCHIATRIC HISTORY: Past Diagnoses: denies Hospitalizations: denies Psychiatrist: denies Agency: NA manager mba: NA Therapist: denies Self harm: denies Suicide attempts: denies Medication Trials: denies ECT: No SOCIAL HISTORY: Guardian: None Born and raised: [place] Childhood: good, [place] Abuse: denies any form of abuse Education: graduated high school Employment: [employer]. Currently retired Financial support: able to support selves Relationships: x61 years Children: 3 females Living Situation: Lives with and daughter Roxy Weapons: denies Legal History: denies Rastafari: Catholicism, streams anglican every Friday because of leg pain SUBSTANCE ABUSE HISTORY: Alcohol - drinks 1 glass of rum/day for the last 4-5 months - helps her relax - she is pain makes her more stressed and tense Marijuana - denies Denies any other illicit substance use Remote cigarette smoking for 1 year as a teenager Denies any caffeine FAMILY PSYCHIATRIC HX: denies PAST MEDICAL HISTORY: 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 Arthrodesis status 2012 Bilateral leg edema 07/02/2005 Carpal tunnel syndrome, left 08/17/2020 NCS 08/2020: mild 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 Macias, Rt anterior shoulder, Gilberto III, pT1a, pNX, pM N/A Mixed hyperlipidemia 10/13/2014 Multiple thyroid nodules 09/15/2017 CT neck09/2017 7 mm nodule, US .2018 multiple small nodules repeat 09/2019 Non morbid obesity 03/29/2016 Osteopenia, senile 07/02/2005 SEE DEXA 07/15 Other chronic dermatitis due to solar radiation 03/27/2006 Other psoriasis 04/16/2013 Other seborrheic keratosis 06/23/2006 Personal history of other malignant neoplasm of skin 03/22/2013 Raynaud's phenomenon without gangrene 06/07/2020 suspected Restless leg syndrome Sensorineural hearing loss, asymmetrical 10/08/2017 Solar lentigo 03/22/2013 Spinal stenosis of lumbar region 06/17/2023 Spinal stenosis, lumbar region, without neurogenic claudication 07/25/2023 Spondylolisthesis at L5-S1 level 10/20/2012 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 09/15/2012 Vertigo 12/03/2021 MRI normal and patient declined further eval as of 12/03/21 Vitamin B12 deficiency 11/09/2023 Vitamin D deficiency 08/24/2016 Xerosis cutis 03/22/2013 PAST SURGICAL HISTORY Procedure Laterality Date ABDOMINAL SURGERY HX BACK SURGERY HX 01/23/2021 lateral lumbar interbody fusion L3-4 CHOLECYSTECTOMY age 52 +/- laparoscopic cholecystectomy COLONOSCOPY 04/29/2013 Dr. Patton, repeat 5 yrs COLONOSCOPY FLX DX W/COLLJ SPEC WHEN PFRMD 07/09/2006 COLONOSCOPY FLX DX W/COLLJ SPEC WHEN PFRMD 04/29/2013 internal hemorrhoids, q5y for FHx COLONOSCOPY, GI 05/02/2000 FHx, repeat q5y DILATION & CURETTAGE DX&/THER NONOBSTETRIC Dilation & curettage EYE SURGERY HX PAST SURGICAL HISTORY OF 12/2011 squamous cell CA rt hand.left LE PAST SURGICAL HISTORY OF 04/2012 rt CTR-- endoscopic PAST SURGICAL HISTORY OF 2012 lumbar surgery- fusion PAST SURGICAL HISTORY OF 2014 excision melanoma right shoulder PAST SURGICAL HISTORY OF Right 2017 bunionectoy TONSILLECTOMY HX TONSILLECTOMY PRIMARY/SECONDARY <AGE 12 childhood Tonsillectomy ALLERGIES Allergen Reactions Sulfa (Sulfonamide * Swelling, Anaphylaxis Tongue/ throat swelled Phenergan Plain Vomiting Vomiting Hydrocodone-Acetami* GI Upset NAUSEA Procardia [Nifedipi* Swelling legs PCP: Juan Spann MD Current Outpatient Medications on File Prior to Visit Medication Sig nortriptyline (PAMELOR) 75 mg capsule Take 1 capsule by mouth daily at bedtime. diclofenac potassium (CATAFLAM) 50 mg tablet Take 1 tablet by mouth two times a day. Magnesium 250 mg tab Take 1 tablet by mouth once daily. lisinopril (ZESTRIL) 10 mg tablet Take 1 tablet by mouth once daily. cholecalciferol, vitamin D3, (VITAMIN D3 ORAL) Take by mouth. cyanocobalamin (VITAMIN B-12) 1,000 mcg tab Take 1 tablet by mouth once daily. pregabalin (LYRICA) 50 mg capsule Take one pill twice daily methylPREDNISolone (MEDROL, GLENNA,) 4 mg Dose-Pack As Instructed per package pravastatin (PRAVACHOL) 20 mg tablet Take 1 tablet by mouth daily at bedtime. potassium chloride 20 mEq TbER Take 1 tablet by mouth once daily. rOPINIRole (REQUIP) 4 mg tablet Take 1 tablet by mouth daily at bedtime. spironolactone (ALDACTONE) 50 mg tablet Take 1 tablet by mouth once daily. colchicine 0.6 mg tablet Take one tab by mouth 3 times a day till pain stops or script finished. ammonium lactate (LAC-HYDRIN) 12 % cream Apply to affected area as needed. aspirin, enteric coated (ADULT LOW DOSE ASPIRIN) 81 mg EC tablet Take 1 tablet by mouth once daily. calcium carbonate(CALTRATE 600 600 MG (1,500 MG) TAB) DAILY MULTIVITAMIN TAB Take by mouth. No current facility-administered medications on file prior to visit. VITAL SIGNS: There were no vitals taken for this visit. MENTAL STATUS EXAMINATION: Appearance: appears stated age, ,Female, well developed, well nourished, normal clothing, grooming is Within Normal Limits Activity: Normal , Stooped, Slow, Walker/other assist gait Behavior: Cooperative, Good eye contact Speech: spontaneous , Normal rate, Normal volume, Clear Mood: pretty good Affect: euthymic, mood congruent Thought Process: linear, logical, goal directed Thought Content: Thoughts of , but not suicide., No homicidal ideation, intent or plan., No delusions or hallucinations noted or endorsed Cognition: Orientation: Person, Place, Time and Situation Attention: Intact Concentration: Intact Language: Intact naming, Intact repetition Estimated Intelligence: Above Average Memory: Intact recent memory, Intact remote memory Abstraction: Intact Insight: good Judgement: good LABS: reviewed RATING SCALES: PHQ-9 Score 12/31/2023 6 04/17/2023 0 10/17/2021 5 05/19/2013 3 01/01/2013 0 10/30/2012 9 08/19/2012 9 06/24/2012 11 04/14/2012 2 (0-4) minimal depression, (5-9) mild depression, (10-14) moderate depression, (15-19) moderately severe depression, (20-27) severe depression EVI - 7 SCORES Score 12/31/2023 9 04/17/2023 0 (0-4) minimal anxiety, (5-9) mild anxiety, (10-14) moderate anxiety, (15-21) severe anxiety RISK ASSESSMENT: COLUMBIA SUICIDE SEVERITY RATING SCALE 1.) Wish to be : Have you wished you were or wished you could go to sleep and not wake up?YES 2.) Suicidal Thoughts: Have you actually had any thoughts of killing yourself? NO 6.) Suicide Behavior Question: Have you ever done anything, started to do anything, or prepared to do anything to end your life?NO IMPRESSION: 83 YO F w/no past psychiatric history who presents for evaluation of capacity for spinal cord stimulator. Patient has some symptoms of generalized anxiety disorder but does not meet full criteria, and she has some symptoms of depression, notably passive suicidal ideation when her pain is severe or when she is having a particularly bad day. The suicidal thoughts occur about once every few weeks, and patient is avid she would never take her own life. In fact she does not believe she is capable of taking her own life. Although she has several risk factors such as her age and chronic pain, she has multiple strong protective factors such as her marriage, a child who lives with her, her strong estelita, future orientation, strong social connections. Therefore she is a low risk of suicide, even if the SCS procedure is unsuccessful. Patient has an understanding and appreciation of the relevant information of the procedure, as wellas its risks and benefits (although further discussion with her pain management physician is recommended). She communicates a clear choice, and has legitimate reasoning behind her decision. Accordingly, she, at present, has capacity to consent for the spinal cord stimulator procedure. ASSESSMENT/PLAN: 1. Encounter for assessment of healthcare decision-making capacity - ICD9: V68.09, ICD10: Z02.79 - patient has capacity to consent for SCS procedure, see above for further details/explanation Stanton Mesa DO The efficacy, adverse reactions and drug-drug interactions of all medications were explained to, and discussed with the patient. Patient verbalized understanding. PDMP website checked and validated. All prescriptions have been APPROPRIATELY filled. No suspiciousactivity was identified. 01/05/2024 by Stanton Mesa DO Patient understands and agrees with the treatment plan: Yes No follow up needed. If there are any problems in the interim, the patient will contact our clinic for an earlier appointment. For all medical and psychiatric emergencies, the patient will go to the nearest emergency room. Discussed patient with Dr. Godinez. I spent a total of 60 minutes on the date of the service which included preparing to see the patient, [id number] patient care, completing clinical documentation, obtaining and/or reviewing separately obtained history, performing a medically appropriate examination, counseling and educating the pat ient/family/caregiver, independently interpreting results (not separately reported), and communicating results to the patient/family/caregiver. Electronically signed by Stanton Mesa DO PGY-3 Psychiatry and Behavioral Sciences [facility] January 05, 2024 12:58 PM I spoke to the patient and personally participated in the aviles components of the assessment. I agreewith the resident's findings and plan as documented and have discussed the case and management of the patient's care with the resident. I confirm the aviles elements of the history. I confirm the aviles elements of the mental status examination. I reviewed the findings with the resident. I confirm the diagnosis and agree with the resident's plan of care. Please see resident's note for furthur details. During this patient visit I have spent approximately 5 minutes in counseling regarding treatment options and medications and coordinating care. Gladys Gdoinez MD Adult and Geriatric Psychiatry [facility] , . documented in this encounterC[facility]10-[facility] Telephone encounter Note * Telephone Encounter - Monae Mancini PSS - 12/31/2023 1:22 PM EDT Spoke to patient and advised she was not scheduled for any procedures. Patient wanted to move up her SCS consult with Dr. Roca. I advised she would have to complete her MRI and Psych eval first before she can have a consult with Dr. Roca. Patient stated understanding. Monae Mancini [place] to Dr. Ann Kang [facility] [facility] P: [id number] / F: [phone] / [facility]10-23-2024 Miscellaneous Notes* Telephone Encounter - Monae Mancini PSS - 12/31/2023 1:22 PM EDT Spoke to patient and advised she was not scheduled for any procedures. Patient wanted to move up her SCS consult with Dr. Roca. I advised she would have to complete her MRI and Psych eval first before she can have a consult with Dr. Roca. Patient stated understanding. Monae Mancini Gear Room Keeper to Dr. Ann Kang [facility] [facility] P: [id number] / F: [phone] / documented in this encounterC[facility] Miscellaneous Notes* Telephone Encounter - Cintia Quiles LPN - 12/26/2023 12:12 PM EDT Prescription Refill Information The patient has been identified by name and date of : Yes Caregiver verified no other encounters exist for this prescription request: Yes Caregiver confirmed with patient/requestor that no other refills are due, in the near future, with this provider at this time: Yes The last office visit in the department: 12/17/2023 Does the patient have a future office visit with this provider/department: Yes Requested Prescriptions Pending Prescriptions Disp Refills nortriptyline (PAMELOR) 75 mg capsule 30 capsule 5 Sig: Take 1 capsule by mouth daily at bedtime. Cintia Quiles LPN December 26, 2023 12:12 PM documented in this encounterC[facility] Telephone encounter Note * Telephone Encounter - Cintia Quiles LPN - 12/26/2023 12:12 PM EDT Prescription Refill Information The patient has been identified by name and date of : Yes Caregiver verified no other encounters exist for this prescription request: Yes Caregiver confirmed with patient/requestor that no other refills are due, in the near future, with this provider at this time: Yes The last office visit in the department: 12/17/2023 Does the patient have a future office visit with this provider/department: Yes Requested Prescriptions Pending Prescriptions Disp Refills nortriptyline (PAMELOR) 75 mg capsule 30 capsule 5 Sig: Take 1 capsule by mouth daily at bedtime. Cintia Quiles LPN December 26, 2023 12:12 PM [facility]10-[facility] Telephone encounter Note* Telephone Encounter - Jackson Sumner MD - 12/19/2023 11:54 AM EDT This patient gave consent to this Medical Advice Message and is aware that it may result in a bill to their insurance, as well as the possibility of receiving a bill for a copay and/or deductible. They are an established patient, but are not seeking information exclusively about a problem treated during an in person or video visit within the past seven days. I did not recommend an in person or video visit within seven days of my reply. See the [employer] message reply for my assessment and plan. Time spent reviewing the patient's prior medical records and current request for medical advice, prescribing medications or ordering tests (if applicable), replying to the patient, and documenting the encounter: 8 minutes. Jackson Sumner III, MD, RONNIE [facility]10-[facility] Miscellaneous Notes* Telephone Encounter - Jackson Sumner MD - 12/19/2023 11:54 AM EDT This patient gave consent to this Medical Advice Message and is aware that it may result in a bill to their insurance, as well as the possibility of receiving a bill for a copay and/or deductible. They are an established patient, but are not seeking information exclusively about a problem treated during an in person or video visit within the past seven days. I did not recommend an in person or video visit within seven days of my reply. See the [employer] message reply for my assessment and plan. Time spent reviewing the patient's prior medical records and current request for medical advice, prescribing medications or ordering tests (if applicable), replying to the patient, and documenting the encounter: 8 minutes. Jackson Sumner III, MD, RONNIE documented in this encounterC[facility] Telephone encounter Note * Telephone Encounter - Marie Fermin MA - 12/18/2023 12:23 PM EDT Pt informed Marie Fermin MA [facility]10-[facility] Miscellaneous Notes* Telephone Encounter - Marie Fermin MA - 12/18/2023 12:23 PM EDT Pt informed Marie Fermin MA * Telephone Encounter - Destini Lay PA-C - 12/18/2023 12:18 PM EDT Let patient know that I forgot to review labs with her yesterday. Repeat sodium is better. We will continue to monitor. Her magnesium is a little low. Recommend start OTC magnesium 250 daily. Destini Lay PA-C documented in this encounterC[facility] Telephone encounter Note * Telephone Encounter - Destini Lay PA-C - 12/18/2023 12:18 PM EDT Let patient know that I forgot to review labs with her yesterday. Repeat sodium is better. We will continue to monitor. Her magnesium is a little low. Recommend start OTC magnesium 250 daily. Destini Lay PA-C [facility] History of Present illness Narrative* Destini Lay PA-C - 12/17/2023 12:15 PM EDT Chief Complaint Patient presents with: Recheck HPI Spenser Putnam is a 83 year old female who presents here today for recheck. At last visit we decreased lisinopril due to episodes of hypotension Patient doing well at this dose. Reports that she hasn't had any episodes of lightheadness since the adjustment Past medical history, appointments, medications, allergies reviewed. 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 Macias, Rt anterior shoulder, Gilberto III, pT1a, pNX, pM N/A Mixed hyperlipidemia 10/13/2014 Multiple thyroid nodules 09/15/2017 CT neck09/2017 7 mm nodule, US .2018 multiple small nodules repeat 09/2019 Non morbid obesity 03/29/2016 Osteopenia, senile 07/02/2005 SEE DEXA 07/15 Other chronic dermatitis due to solar radiation 03/27/2006 Other psoriasis 04/16/2013 Other seborrheic keratosis 06/23/2006 Personal history of other malignant neoplasm of skin 03/22/2013 Raynaud's phenomenon without gangrene 06/07/2020 suspected Restless leg syndrome Sensorineural hearing loss, asymmetrical 10/08/2017 Solar lentigo 03/22/2013 Spinal stenosis of lumbar region 06/17/2023 Spinal stenosis, lumbar region, without neurogenic claudication 07/25/2023 Spondylolisthesis at L5-S1 level 10/20/2012 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 09/15/2012 Vertigo 12/03/2021 MRI normal and patient declined further eval as of 12/03/21 Vitamin B12 deficiency 11/09/2023 Vitamin D deficiency 08/24/2016 Xerosis cutis 03/22/2013 Previous Surgical History PAST SURGICAL HISTORY Procedure Laterality Date ABDOMINAL SURGERY HX BACK SURGERY HX 01/23/2021 lateral lumbar interbody fusion L3-4 CHOLECYSTECTOMY age 52 +/- laparoscopic cholecystectomy COLONOSCOPY 04/29/2013 Dr. Patton, repeat 5 yrs COLONOSCOPY FLX DX W/COLLJ SPEC WHEN PFRMD 07/09/2006 COLONOSCOPY FLX DX W/COLLJ SPEC WHEN PFRMD 04/29/2013 internal hemorrhoids, q5y for FHx COLONOSCOPY, GI 05/02/2000 FHx, repeat q5y DILATION & CURETTAGE DX&/THER NONOBSTETRIC Dilation & curettage EYE SURGERY HX PAST SURGICAL HISTORY OF 12/2011 squamous cell CA rt hand.left LE PAST SURGICAL HISTORY OF 04/2012 rt CTR-- endoscopic PAST SURGICAL HISTORY OF 2012 lumbar surgery- fusion PAST SURGICAL HISTORY OF 2013 excision melanoma right shoulder PAST SURGICAL HISTORY OF Right 2017 bunionectoy TONSILLECTOMY HX TONSILLECTOMY PRIMARY/SECONDARY <AGE 12 childhood Tonsillectomy Family History FAMILY HISTORY Problem Relation Age of Onset Colon Cancer Mother ~70 Hypertension Mother Thyroid Mother Colon Cancer Father ~70 Hypertension Father Stroke Father Heart Father Hx of CHF Coronary Artery Disease Maternal Grandmother Hx of HI Diabetes Daughter Type I Patient Allergies ALLERGIES Allergen Reactions Sulfa (Sulfonamide * Swelling, Anaphylaxis Tongue/ throat swelled Phenergan Plain Vomiting Vomiting Hydrocodone-Acetami* GI Upset NAUSEA Procardia [Nifedipi* Swelling legs Current Medications Current Outpatient Medications on File Prior to Visit Medication Sig cholecalciferol, vitamin D3, (VITAMIN D3 ORAL) Take by mouth. cyanocobalamin (VITAMIN B-12) 1,000 mcg tab Take 1 tablet by mouth once daily. pregabalin (LYRICA) 50 mg capsule Take one pill twice daily methylPREDNISolone (MEDROL, GLENNA,) 4 mg Dose-Pack As Instructed per package pravastatin (PRAVACHOL) 20 mg tablet Take 1 tablet by mouth daily at bedtime. potassium chloride 20 mEq TbER Take 1 tablet by mouth once daily. rOPINIRole (REQUIP) 4 mg tablet Take 1 tablet by mouth daily at bedtime. spironolactone (ALDACTONE) 50 mg tablet Take 1 tablet by mouth once daily. nortriptyline (PAMELOR) 75 mg capsule Take 1 capsule by mouth daily at bedtime. colchicine 0.6 mg tablet Take one tab by mouth 3 times a day till pain stops or script finished. ammonium lactate (LAC-HYDRIN) 12 % cream Apply to affected area as needed. aspirin, enteric coated (ADULT LOW DOSE ASPIRIN) 81 mg EC tablet Take 1 tablet by mouth once daily. calcium carbonate(CALTRATE 600 600 MG (1,500 MG) TAB) DAILY MULTIVITAMIN TAB Take by mouth. No current facility-administered medications on file prior to visit. Social History Social History Tobacco Use Smoking status: Never Smokeless tobacco: Never Vaping Use Vaping status: Never Used Substance Use Topics Alcohol use: Yes Alcohol/week: 3.9 standard drinks of alcohol Types: 3 Mixed Drinks per week Comment: 3-4/week Drug use: No Review of Symptoms REVIEW OF SYSTEMS GENERAL: No weight loss, malaise or fevers EXAM: BP 120/76 (BP Site: Left Arm, BP Position: Sitting, BP Cuff Size: Regular Adult) Pulse 80 Temp 36.2 C (97.2 F) Resp 16 Wt 66.2 kg (146 lb) BMI 26.70 kg/m General Appearance: Well appearing, alert, in no acute distress, well-hydrated, well nourished.. Lungs: Lungs clear to auscultation. No wheezing, rhonchi, rales.. Heart: RRR without murmur, gallop, or rubs. No ectopy. Health Maintenance List Depression Screening Never done Anxiety Screening Never done DTaP,Tdap,Td Vaccine(2 - Tdap) due on 09/16/2024 Diabetes Screening due on 11/27/2026 Bone Density Screening Completed Influenza Vaccine Completed RSV Vaccine Completed Shingrix Vaccine Completed Covid-19 Vaccine Completed Pneumococcal Vaccine: 65+ Completed HPV Vaccine Aged Out Colorectal Cancer Screening Discontinued Advance Directive Discussion Discontinued Data reviewed ASSESSMENT/PLAN: 1. Essential hypertension with goal blood pressure less than 140/90 - ICD9: 401.9, ICD10: I10 (primary diagnosis) - Controlled - Continue current medications - Recommend home blood pressure monitoring, to bring results to next visit - Encouraged sodium restriction, DASH or Mediterranean diet - Recommend regular aerobic exercise 2. Encounter for immunization - ICD9: V03.89, ICD10: Z23 - INFLUENZA VACCINE, PRSV FREE, AGE 65+ YR, HIGH DOSE, TRIVALENT (FLUZONE HIGH-DOSE) Destini Lay PA-C documented in this encounterC[facility]10-[facility]24 Telephone encounter Note * Telephone Encounter - Priscilla Vivar - 12/11/2023 11:26 AM EDT Patient has been scheduled an SCS consult with Dr. Roca on 01/29/24. Aj put in the order for referral to [facility] for eval. Could you submit that? Priscilla Vivar [facility]10-[facility] Miscellaneous Notes* Telephone Encounter - Priscilla Vivar - 12/11/2023 11:26 AM EDT Patient has been scheduled an SCS consult with Dr. Roca on 01/29/24. Aj put in the order for referral to [facility] for eval. Could you submit that? Priscilla Vivar documented in this encounterC[facility]10-03-2024 History of Present illness Narrative* Aj Graham APRN.CNP - 12/11/2023 10:15 AM EDT Images from the original note were not included. [facility] [place] [facility] Today's Date: 12/11/2023 Name: Spenser Putnam : 1940 Purpose: Follow-up Patient Evaluation - This is an established patient, returning today for continued evaluation and management of the chief complaint noted below Chief complaint: Spinal stenosis of lumbar region Referring Clinician: Destini Lay PA-C Pertinent Past Medical History: Insomnia, RLS, Carpal tunnel - left, HLD, HTN, Valvular heart disease, Raynaud's phenomenon, H/O other malignant neoplasm of skin, Lumbar disc herniation, DJD of sternoclavicular joint, 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, Pertinent Past Surgeries: Lumbar interbody fusion L3-4 (2020), Lumbar fusion (2012), Plan at last visit: (Seen on 10/16/2023 by Aj Graham CNP) Medications: Requested Prescriptions No prescriptions requested or ordered in this encounter Lyrica 50mg BID - restart Interventional Procedures: Epidural Steroid Injection - Transforaminal Approach (TFESI) under fluoroscopic guidance LEFT-SIDEDat S1 and L5-S1 Supervisor Frame Sample And Pattern Needed: Epidural - YES Anticoagulant - Hold Needed: N/A (Not currently on Anticoagulants) Anticoagulant - Currently Taking: None Allergies (relevant): None Scheduling - Mobility (Can Patient independently transfer on/off an OR or Procedure table?): YES (May schedule at any location) Scheduling - Additional Info: None Studies: None Functional Yarsani: Physical Therapy Consultation (Land-Based) Referrals: No additional considerations at present Follow-up: 2 months Depending on response to the above plan, consider: SCS discussion, titrate Lyrica Interval History: Overall pain and functional disability since last visit: Better New Complaints since last visit: No Patient is here today to report that she had a left transforaminal epidural steroid injection from L5-S1 on 11/21/2023 and she feels she received 50% for 1 week. Patient states she is tired of doing injections. States that they do not work. Patient stating that she did discuss with Dr. Sumner a potential spinal cord stimulator and she did get the paperwork and she is very interested in pursuing this avenue. PAIN DESCRIPTION: Timing: Constant Character: Aching, Dull Primary Location: left knee Radiation: lateral thigh and gomez, occasionally low back Exacerbating factors: Standing, Walking Relieving factors: Sitting, Lying Down Interferes with: walking (uses a walker) Current Pain Medications: Neuropathics: Pamelor 75mg qHS for sleep NSAIDS: Naproxen 500mg BID PRN Muscle Relaxants: Topicals: Other Prescription or OTC Pain Medications: Opioids (when applicable): No question data found. Anti-depressants or Mood-Stabilizers: None Anti-Coagulants: None Therapies Attended (Current or Most Recent): [facility] Physical Therapy 04/17/2023 12/11/2023 [facility] SPINE COMBINATION Questionnaire GREENLIGHT Completed Date 04/17/2023 Completed Date 12/11/2023 Comments NIDHI Questionnaire Opiod Risk Tool Completed Date 04/17/2023 Comments 0 Completed Date 12/11/2023 Comments NIDHI (All drug screens are appropriate unless indicated otherwise) Notabl e Events During Course of Treatment: 04/15/2023 - Initial HPI (Obtained by Jackson Sumner M.D.). DURATION AND ONSET: The pain complaint has been present for approximately 40 years. The pain had a gradual onset. The mechanism of injury is unknown. RED FLAG SYMPTOMS: denies red flags. She saw her spine surgeon, who advised non-op management. She reports she had low back pain and left lower limb radicular symptoms that responded to surgery both times. She developed new onset low back pain and the left lower limb pain one month ago suddenly. She saw Dr. Gomez in 2012, did TFESI at L2-3 x 2, does not recall results. Treatment History: PAIN PROCEDURES: DATE PROCEDURE IMPROVEMENT 11/21/2023 L TFESI L5-S1 50% 08/06/2023 RFA Left Knee (Genic N.) 80% (10/16/2023 ) 05/26/2023 L knee CSI <10 04/30/2023 L TFESI L4-S1 >50% MEDICATIONS Taken TO DATE (for the chief complaint(s)): Neuropathics: Neurontin (Gabapentin), Lyrica (Prebabalin), Pamelor (Nortriptyline), Elavil (Amitriptyline) NSAIDS: Naprosyn (Naproxen), Mobic (Meloxicam) Muscle Relaxants: None Topicals: None Other Prescription or OTC Pain Medications: Aspirin Opioids: Tramadol, Oxycodone (eg Percocet) Data Reviewed Today: Allergies: ALLERGIES Allergen Reactions Sulfa (Sulfonamide * Swelling, Anaphylaxis Tongue/ throat swelled Phenergan Plain Vomiting Vomiting Hydrocodone-Acetami* GI Upset NAUSEA Procardia [Nifedipi* Swelling legs Social History Tobacco Use Smoking status: Never Smokeless tobacco: Never Vaping Use Vaping status: Never Used Substance Use Topics Alcohol use: Yes Alcohol/week: 3.9 standard drinks of alcohol Types: 3 Mixed Drinks per week Comment: 3-4/week Drug use: No 11/27/2023 12/04/2023 INTAKE PAIN ASSESSMENT Are you having pain associated with your visit today? Yes, Provider notified Yes, Provider notified Pain Level 9 8 Pain Location Leg-Right Leg-Right Description Aching;Radiating;Sharp Aching;Pulsating;Radiating Duration Amount of Time 3 4 Duration Units Months Months Frequency Continuous Continuous Intervention/Comfort measure Medication;Heat;Pillow support;Positioning Medication;Heat;Positioning Compliance: PDMP website checked and validated on 12/11/2023 by Aj Graham APRN.[employer] All prescriptions have been APPROPRIATELY filled. No suspicious activity was identified. 04/17/2023 12/11/2023 AG SPINE COMBINATION Questionnaire GREENLIGHT Completed Date 04/17/2023 Completed Date 12/11/2023 Comments NIDHI Questionnaire Opiod Risk Tool Completed Date 04/17/2023 Comments 0 (All drug screens are appropriate unless indicated otherwise) Risk Assessment: EVI-7: 04/17/2023 EVI - 7 SCORES Score 0 (0-4) minimal anxiety, (5-9) mild anxiety, (10-14) moderate anxiety, (15-21) severe anxiety PHQ-9: 05/19/2013 10/17/2021 04/17/2023 PHQ-9 Score 3 5 0 (0-4) minimal depression, (5-9) mild depression, (10-14) moderate depression, (15-19) moderately severe depression, (20-27) severe depression Diagnostic Studies: Relevant Imaging: MRI Spine Report MRI LUMBAR SPINE WO IVCON Exam End: 03/27/2023 1:23 PM (Final result) Narrative: * * *Final Report* * * DATE OF EXAM: Mar 27 2023 1:23PM [facility] [id number] - MRI LUMBAR SPINE WO IVCON / PROCEDURE REASON: multiple diagnoses * * * * Physician Interpretation * * * * EXAMINATION: MRI LUMBAR SPINE WO IVCON CLINICAL HISTORY: Radiculopathy of lumbar region Spinal stenosis of lumbar region with neurogenic claudication. TECHNIQUE: Routine lumbosacral spine MR protocol without gadolinium. MQ: [id number] COMPARISON: MRI lumbar spine dated 06/19/2012. Lumbar spine radiographs dated 03/21/2023. RESULT: Counting reference: Lumbosacral junction. For the purposes of this report, L4-5 is considered the level of the iliac crest and assume there are 5 lumbar-type vertebrae. Anatomic variant: None. Localizer images: No additional significant findings. Alignment: Disc space narrowing seen at L3-L4. 2 mm grade 1 retrolisthesis of L2 on L3. 3 mm grade 1 retrolisthesis of L3 on L4. 4 mm grade 1 anterolisthesis of L5 on S1. Bone marrow signal/fracture: Endplate degenerative signal change seen at L2-L3, L4-L5, and L5-S1. Susceptibility artifact from interbody fusion hardware at L3-L4, posterior fusion hardware at L4-L5, and left lateral screws at L3-L4 seen. Laminectomies seen at L3-L5. Conus: The conus is within normal limits of signal intensity and morphology. Paraspinal soft tissues: Disruption of the posterior fat planes at the mid and lower lumbar levels secondary to prior surgery. Lower thoracic spine: Visualized lower thoracic canal and foramina are patent. L1-L2: Minimal bulging annulus. Canal and foramina are patent. L2-L3: Bulging annulus and moderate to severe facet degenerative changes. Moderate to severe canal stenosis. Mild to moderate left and mild right foraminal narrowing. L3-L4: Bulging annulus and moderate facet degenerative change. Mild to moderate canal stenosis and left greater than right subarticular recess narrowing. Moderate bilateral foraminal narrowing. L4-L5: Bulging annulus. Canal is decompressed. Neural foramina are patent. L5-S1: Mild bulging annulus. Moderate facet degenerative changes. Mild to moderate left and mild right foraminal narrowing. Canals patent. Sacrum and iliac wings: Aside from degenerative change at L5-S1, the visualized sacrum and iliac wings are unremarkable. Compared to the prior MRI dated 06/19/2012, fusion hardware is new. Previously seen canal narrowing at L4-L5 has improved. Degenerative changes at other levels, most notably at L2-L3, have progressed. Impression: IMPRESSION: Postoperative changes with hardware and laminectomies at the L3-L5 levels. Multilevel degenerative changes, most significant at L2-L3 where there is moderate to severe canal stenosis (see full level by level discussion above). Otherwise, unremarkable MRI lumbar spine without contrast. Anatomic Lumbar Variant: None. L4-5 is considered the level of the iliac crest and assume there are 5 lumbar-type vertebrae. Ring Facer: DARRYL Transcribe Date/Time: Mar 27 2023 1:25P Dictated by : RENEE CRUZ MD This examination was interpreted and the report reviewed and electronically signed by: RENEE CRUZ MD on Mar 27 2023 1:35PM EST X-ray Lumbar 03/2023 RESULT: 5 nonrib-bearing lumbar-type vertebrae. For numbering purposes, L4-5 is at the level of the iliac crest. Pedicle plate and screw device transfixes L4 and L5. No evidence of fracture or loosening. Disc spacer at L3-4 with hardware fixation. Mild grade 1 spondylolisthesis of L4 on L5, and L5 on S1. Moderate to severe disc space narrowing at L2-3 with vacuum phenomenon. Osteopenia. SI joints appear unremarkable IMPRESSION: DEGENERATIVE, POSTOPERATIVE CHANGE AND ALIGNMENT ABNORMALITIES DESCRIBED X-ray Rt. Hip 02/2023 RESULT: Bony mineralization within normal limits. Mild to moderate degenerative narrowing and bony spurring at the right hip joint. No acute fracture or dislocation is seen at the right hip. Lower lumbar fusion hardware from L3 to L5 IMPRESSION: Mild to moderate degenerative change with prominent spurring at the right hip similar to the previous MRI Lumbar 11/2020 Electrodiagnostic Study (EMG): 08/17/2020- Recent Labs: Creatinine Date Value Ref Range Status 11/28/2023 0.99 (H) 0.58 - 0.96 mg/dL Final eGFR, Date Value Ref Range Status 11/06/2012 >60 Final No results found for: PCGLUCOSE Current Medications, Past Medical History, Past Surgical History, Family History, Social History and Review of Systems: On today's date, noted above, I have confirmed and edited as necessary, the PFSH and ROS obtained by others. Physical Exam: 12/11/23 1027 Pulse: 84 Resp: 16 SpO2: 98% Physical Exam Vitals reviewed. Constitutional: General: She is not in acute distress. Appearance: She is not ill-appearing. HENT: Head: Normocephalic and atraumatic. Eyes: Conjunctiva/sclera: Conjunctivae normal. Cardiovascular: Pulses: Normal pulses. Pulmonary: Effort: Pulmonary effort is normal. No respiratory distress. Musculoskeletal: Lumbar back: Spasms and bony tenderness present. Decreased range of motion. Positive right straightleg raise test and positive left straight leg raise test. Skin: General: Skin is warm and dry. Neurological: Mental Status: She is alert and oriented to person, place, and time. Gait: Gait abnormal (antalgic). Psychiatric: Mood and Affect: Mood and affect normal. Behavior: Behavior normal. Behavior is cooperative. IMPRESSION: 83 year old female presents with complaint(s) of recurrent low back pain and left lowerlimb radicular symptoms in a predominantly L5 dermatomal distribution. She has prior fusion at L4-5, with central canal stenosis at L3-4. Patient has tried and failed injections and does not want to pursue this avenue anymore. Patient is very interested in the spinal cord stimulator. I did put in for the appointment to talk discussed with one of our interventionalists physicians. I also put in anorder for thoracic MRI as patient has had an lumbar MRI already, and I put in for psych eval. We did discuss the spinal cord stimulator at length the process of getting it approved the process of thetrial and the how the stimulator itself works and how it could benefit her and patient appears to understand. Diagnoses:(M54.16) Lumbar radiculopathy (primary encounter diagnosis) (M48.061) Spinal stenosis, lumbar region, without neurogenic claudication (M47.816) Lumbar spondylosis (M54.6) Pain in thoracic spine PLAN: Spenser Putnam would benefit from the following to reach personal goals for decreasing pain, improving function and work participation, and/or improving quality of life: Medications: Requested Prescriptions No prescriptions requested or ordered in this encounter Interventional Procedures: none Studies: MRI: Thoracic Spine Functional Yarsani: Physical Therapy Consultation ([facility]) Referrals: Psych eval for spinal cord stimulator Follow-up: 2 months Depending on response to the above plan, consider: SCS discussion, titrate Lyrica Compliance and Clinic Policies Reviewed and/or Discussed Today: None Attribution: In addition to reviewing the information noted above, some elements copied from my most recent clinical note(s), including the physical exam (completed in entirety today), and the impression and plan sections, have been updated where appropriate. All reflect current medical decision making from today's date. Aj Graham APRN.JOVANY [facility] * Ramiro Anderson MA - 12/11/2023 10:08 AM EDT Review of Systems Constitutional: Negative for activity change, chills, fever and unexpected weight change. Genitourinary: Negative for difficulty urinating. Musculoskeletal: Positive for arthralgias, back pain, gait problem, joint swelling and myalgias. Negative for neck pain and neck stiffness. Neurological: Negative for weakness, numbness and headaches. Psychiatric/Behavioral: Negative for dysphoric mood, sleep disturbance and suicidal ideas. The patient is not nervous/anxious. documented in this encounterC[facility]24 NoteHNO ID: [id number] Author: AJ GRAHAM APRN.JOVANY Service: ? Author Type: Nurse Practitioner Type: Progress Notes Filed: 12/11/2023 12:52 Note Text: [facility] Today's Date: 12/11/2023 Name: Spenser Putnam : 1940 Purpose: Follow-up Patient Evaluation - This is an established patient, returning today for continued evaluation and management of the chief complaint noted below Chief complaint: Spinal stenosis of lumbar region Referring Clinician: Destini Lay PA-C Pertinent Past Medical History: Insomnia, RLS, Carpal tunnel - left, HLD, HTN, Valvular heart disease, Raynaud's phenomenon, H/O other malignant neoplasm of skin, Lumbar disc herniation, DJD of sternoclavicular joint, 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, Pertinent Past Surgeries: Lumbar interbody fusion L3-4 (2020), Lumbar fusion (2012), Plan at last visit: (Seen on 10/16/2023 by Aj Graham CNP) Medications: Requested Prescriptions No prescriptions requested or ordered in this encounter Lyrica 50mg BID - restart Interventional Procedures: Epidural Steroid Injection - Transforaminal Approach (TFESI) under fluoroscopic guidance LEFT-SIDED at S1 and L5-S1 Supervisor Frame Sample And Pattern Needed: Epidural - YES Anticoagulant - Hold Needed: N/A (Not currently on Anticoagulants) Anticoagulant - Currently Taking: None Allergies (relevant): None Scheduling - Mobility (Can Patient independently transfer on/off an OR or Procedure table?): YES (May schedule at any location) Scheduling - Additional Info: None Studies: None Functional Yarsani: Physical Therapy Consultation ([facility]) Referrals: No additional considerations at present Follow-up: 2 months Depending on response to the above plan, consider: SCS discussion, titrate Lyrica Interval History: Overall pain and functional disability since last visit: Better New Complaints since last visit: No Patient is here today to report that she had a left transforaminal epidural steroid injection from L5-S1 on 11/21/2023 and she feels she received 50% for 1 week. Patient states she is tired of doing injections. States that they do not work. Patient stating that she did discuss with Dr. Sumner a potential spinal cord stimulator and she did get the paperwork and she is very interested in pursuing this avenue. PAIN DESCRIPTION: Timing: Constant Character: Aching, Dull Primary Location: left knee Radiation: lateral thigh and gomez, occasionally low back Exacerbating factors: Standing, Walking Relieving factors: Sitting, Lying Down Interferes with: walking (uses a walker) Current Pain Medications: Neuropathics: Pamelor 75mg qHS for sleep NSAIDS: Naproxen 500mg BID PRN Muscle Relaxants: Topicals: Other Prescription or OTC Pain Medications: Opioids (when applicable): No question data found. Anti-depressants or Mood-Stabilizers: None Anti-Coagulants: None Therapies Attended (Current or Most Recent): [facility] Physical Therapy 04/17/2023 12/11/2023 AG SPINE COMBINATION Questionnaire GREENLIGHT Completed Date 04/17/2023 Completed Date 12/11/2023 Comments NIDHI Questionnaire Opiod Risk Tool Completed Date 04/17/2023 Comments 0 Completed Date 12/11/2023 Comments NIDHI (All drug screens are appropriate unless indicated otherwise) Notable Events During Course of Treatment: 04/15/2023 - Initial HPI (Obtained by Jackson Sumner M.D.). DURATION AND ONSET: The pain complaint has been present for approximately 40 years. The pain had a gradual onset. The mechanism of injury is unknown. RED FLAG SYMPTOMS: denies red flags. She saw her spine surgeon, who advised non-op management. She reports she had low back pain and left lower limb radicular symptoms that responded to surgery both times. She developed new onset low back pain and the left lower limb pain one month ago suddenly. She saw Dr. Gomez in 2012, did TFESI at L2-3 x 2, does not recall results. Treatment History: PAIN PROCEDURES: DATE PROCEDURE IMPROVEMENT 11/21/2023 L TFESI L5-S1 50% 08/06/2023 RFA Left Knee (Genic N.) 80% (10/16/2023 ) 05/26/2023 L knee CSI <10 04/30/2023 L TFESI L4-S1 >50% MEDICATIONS Taken TO DATE (for the chief complaint(s)): Neuropathics: Neurontin (Gabapentin), Lyrica (Prebabalin), Pamelor (Nortriptyline), Elavil (Amitriptyline) NSAIDS: Naprosyn (Naproxen), Mobic (Meloxicam) Muscle Relaxants: None Topicals: None Other Prescription or OTC Pain Medications: Aspirin Opioids: Tramadol, Oxycodone (eg Percocet) Data Reviewed Today: Allergies: ALLERGIES Allergen R (more content not included)...[facility]10-03-2024 NoteHNO ID: [id number] Author: RAMIRO ANDERSON MA Service: ? Author Type: Computer Equipment Installer Type: Progress Notes Filed: 12/11/2023 12:52 Note Text: Review of Systems Constitutional: Negative for activity change, chills, fever and unexpected weight change. Genitourinary: Negative for difficulty urinating. Musculoskeletal: Positive for arthralgias, back pain, gait problem, joint swelling and myalgias. Negative for neck pain and neck stiffness. Neurological: Negative for weakness, numbness and headaches. Psychiatric/Behavioral: Negative for dysphoric mood, sleep disturbance and suicidal ideas. The patient is not nervous/anxious.[facility] 12-01-2023 History of Present illness Narrative* Spataro, Zo Margo, RN - 12/01/2023 1:20 PM EDT Transitional Care Management (TCM) Follow-Up Note PCP Update / Actionable Items N/A - No specialty updates needed Patient Source: [id number] (OON) Discharge Outreach Summary: Pt reports she is doing well, no medical questions or concerns. Has repeat urine testing in 2 weeks. Patient discharged from [facility] Discharge date: 11/15/23 Admitted for: Syncope , Hypotension Readmission Risk: n/a Value-Based Contract: ACO Contact: Contact made with patient: Yes Spoke to: Patient Validation: Validated the person spoken to is actively involved in the patient's care. The patient was identified by Name and Date of . I'd like to get an update on how you're doing since our last phone call. Is now a good time to talk? Yes Symptoms: Are you feeling about the same, better or worse since leaving the hospital? Better Weekly Outreach: 1st Outreach Medications: Do you have any questions about taking your medications, including which medications you should be on, or do you need refills on your medications? No Patient Questions / Concerns: Do you have any questions related to your discharge? No Appointment / TCM Follow-Up: Have you had a follow-up visit with your Primary Care Provider or Specialist since you were discharged? Yes Do you need any assistance with scheduling or changing your follow-up appointments? Patient alreadyhas an appointment scheduled Education N/A Targets addressed / completed during outreach: Patient has TCM appointment with PC within 14 days Outreach Outcome: Continue TCM Outreach for remainder of 30 days Care Management partners utilized: N/A Zo Metcalf RN December 01, 2023 1:22 PM documented in this encounterCleveland Clinic [facility]09-23-[facility]24 Telephone encounter Note * Telephone Encounter - Destini Lay PA-C - 12/01/2023 11:09 AM EDT Noted. [facility]09-23-[facility]24 Miscellaneous Notes* Telephone Encounter - Destini Lay PA-C - 12/01/2023 11:09 AM EDT Noted. * Telephone Encounter - Jonas Milan LPN - 12/01/2023 10:17 AM EDT Pt notified of results and instructions. Pt verbalizes understanding. Pt did want to let you know that it was not a clean catch at the lab. Advises that she was not given any wipes prior to collection. She will make sure they give her these when she repeats urine in 2 weeks. Jonas Milan LPN * Telephone Encounter - Destini Lay PA-C - 12/01/2023 9:57 AM EDT Let patient know that her urine looks okay. The culture showed strep anginosous but this is a typical normal payton bacteria and given lack of symptoms and urinalysis being normal, I'm not concerned by this finding. We will repeat urine culture in 2 weeks. Make sure to do a clean catch. The rest of her labs are okay. However sodium level isback down to 131. Recheck prior to next appt with me. documented in this encounterCleveland Clinic [facility]09-23-2024 Telephone encounter Note * Telephone Encounter - Jonas Milan LPN - 12/01/2023 10:17 AM EDT Pt notified of results and instructions. Pt verbalizes understanding. Pt did want to let you know that it was not a clean catch at the lab. Advises that she was not given any wipes prior to collection. She will make sure they give her these when she repeats urine in 2 weeks. Jonas Milan LPN [facility]09-23-[facility]24 Telephone encounter Note* Telephone Encounter - Destini Lay PA-C - 12/01/2023 9:57 AM EDT Let patient know that her urine looks okay. The culture showed strep anginosous but this is a typical normal payton bacteria and given lack of symptoms and urinalysis being normal, I'm not concerned by this finding. We will repeat urine culture in 2 weeks. Make sure to do a clean catch. The rest of her labs are okay. However sodium level isback down to 131. Recheck prior to next appt with me. [facility] History of Present illness Narrative* Destini Lay PA-C - 11/28/2023 10:22 AM EDT Chief Complaint Patient presents with: [facility] F/U TCM intial contact date: 11/17/2023. HPI Spenser Putnam is a 82 year old female who presents here today for Hospital Discharge Follow up.. Patient was admitted to [facility] on 11/12 and discharged on 11/14 for a syncopal episode. Extensive workup at hospital included CXR, CT brain, CT chest and abd/pelvis. CTA head/neck, EEG, MRI brain, US of lower ext to rule out clots. Labs which showed anemia, low potassium and magnesium on initial lab draw but resolved while in hospital. Her urine grew klebsiella and she was initiated on atb. Throughout hospital stay she did have low BPs. They discharge her home with an event monitor. Patient reports that currently she is feeling okay. BPs have been low normal. Denies urinary symptoms. Last 10 Encounter BP Readings: Date: BP: 11/28/2023 110/60 11/21/2023 109/57 09/17/2023 108/62 08/06/2023 129/80 07/17/2023 115/74 06/17/2023 118/68 05/26/2023 100/66 04/30/2023 114/54 03/13/2023 120/80 02/25/2023 110/66 Past medical history, appointments, medications, allergies reviewed. 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 Macias, Rt anterior shoulder, Gilberto III, pT1a, pNX, pM N/A Mixed hyperlipidemia 10/13/2014 Multiple thyroid nodules 09/15/2017 CT neck09/2017 7 mm nodule, US .2018 multiple small nodules repeat 09/2019 Non morbid obesity 03/29/2016 Osteopenia, senile 07/02/2005 SEE DEXA 07/15 Other chronic dermatitis due to solar radiation 03/27/2006 Other psoriasis 04/16/2013 Other seborrheic keratosis 06/23/2006 Personal history of other malignant neoplasm of skin 03/22/2013 Raynaud's phenomenon without gangrene 06/07/2020 suspected Restless leg syndrome Sensorineural hearing loss, asymmetrical 10/08/2017 Solar lentigo 03/22/2013 Spinal stenosis of lumbar region 06/17/2023 Spinal stenosis, lumbar region, without neurogenic claudication 07/25/2023 Spondylolisthesis at L5-S1 level 10/20/2012 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 09/15/2012 Vertigo 12/03/2021 MRI normal and patient declined further eval as of 12/03/21 Vitamin B12 deficiency 11/09/2023 Vitamin D deficiency 08/24/2016 Xerosis cutis 03/22/2013 Previous Surgical History PAST SURGICAL HISTORY Procedure Laterality Date ABDOMINAL SURGERY HX BACK SURGERY HX 01/23/2021 lateral lumbar interbody fusion L3-4 CHOLECYSTECTOMY age 52 +/- laparoscopic cholecystectomy COLONOSCOPY 04/29/2013 Dr. Patton, repeat 5 yrs COLONOSCOPY FLX DX W/COLLJ SPEC WHEN PFRMD 07/09/2006 COLONOSCOPY FLX DX W/COLLJ SPEC WHEN PFRMD 04/29/2013 internal hemorrhoids, q5y for FHx COLONOSCOPY, GI 05/02/2000 FHx, repeat q5y DILATION & CURETTAGE DX&/THER NONOBSTETRIC Dilation & curettage EYE SURGERY HX PAST SURGICAL HISTORY OF 12/2011 squamous cell CA rt hand.left LE PAST SURGICAL HISTORY OF 04/2012 rt CTR-- endoscopic PAST SURGICAL HISTORY OF 2012 lumbar surgery- fusion PAST SURGICAL HISTORY OF 2013 excision melanoma right shoulder PAST SURGICAL HISTORY OF Right 2017 bunionectoy TONSILLECTOMY HX TONSILLECTOMY PRIMARY/SECONDARY <AGE 12 childhood Tonsillectomy Family History FAMILY HISTORY Problem Relation Age of Onset Colon Cancer Mother ~70 Hypertension Mother Thyroid Mother Colon Cancer Father ~70 Hypertension Father Stroke Father Heart Father Hx of CHF Coronary Artery Disease Maternal Grandmother Hx of HI Diabetes Daughter Type I Patient Allergies ALLERGIES Allergen Reactions Sulfa (Sulfonamide * Swelling, Anaphylaxis Tongue/ throat swelled Phenergan Plain Vomiting Vomiting Hydrocodone-Acetami* GI Upset NAUSEA Procardia [Nifedipi* Swelling legs Current Medications Current Outpatient Medications on File Prior to Visit Medication Sig cholecalciferol, vitamin D3, (VITAMIN D3 ORAL) Take by mouth. cyanocobalamin (VITAMIN B-12) 1,000 mcg tab Take 1 tablet by mouth once daily. pregabalin (LYRICA) 50 mg capsule Take one pill twice daily methylPREDNISolone (MEDROL, GLENNA,) 4 mg Dose-Pack As Instructed per package pravastatin (PRAVACHOL) 20 mg tablet Take 1 tablet by mouth daily at bedtime. lisinopril (ZESTRIL) 20 mg tablet Take 1 tablet by mouth once daily. potassium chloride 20 mEq TbER Take 1 tablet by mouth once daily. rOPINIRole (REQUIP) 4 mg tablet Take 1 tablet by mouth daily at bedtime. spironolactone (ALDACTONE) 50 mg tablet Take 1 tablet by mouth once daily. nortriptyline (PAMELOR) 75 mg capsule Take 1 capsule by mouth daily at bedtime. colchicine 0.6 mg tablet Take one tab by mouth 3 times a day till pain stops or script finished. ammonium lactate (LAC-HYDRIN) 12 % cream Apply to affected area as needed. aspirin, enteric coated (ADULT LOW DOSE ASPIRIN) 81 mg EC tablet Take 1 tablet by mouth once daily. calcium carbonate(CALTRATE 600 600 MG (1,500 MG) TAB) DAILY MULTIVITAMIN TAB Take by mouth. No current facility-administered medications on file prior to visit. Social History Social History Tobacco Use Smoking status: Never Smokeless tobacco: Never Vaping Use Vaping status: Never Used Substance Use Topics Alcohol use: Yes Alcohol/week: 3.9 standard drinks of alcohol Types: 3 Mixed Drinks per week Comment: 3-4/week Drug use: No Review of Symptoms REVIEW OF SYSTEMS GENERAL: No weight loss, malaise or fevers NECK: Negative for lumps, goiter, pain and significant neck swelling RESPIRATORY: Negative for cough, hemoptysis, wheezing, COPD, dyspnea or shortness of breath CARDIOVASCULAR: Negative for chest pain, leg swelling, CHF or palpitations NEURO: SEE HPI EXAM: BP 110/60 (BP Site: Left Arm, BP Position: Sitting, BP Cuff Size: Regular Adult) Pulse 80 Temp 36.6 C (97.9 F) Resp 16 Wt 64.4 kg (142 lb) SpO2 100% BMI 25.97 kg/m General Appearance: Well appearing, alert, in no acute distress, well-hydrated, well nourished.. Lungs: Lungs clear to auscultation. No wheezing, rhonchi, rales.. Heart: RRR without murmur, gallop, or rubs. No ectopy. Extremities: No deformities, edema, skin discoloration, clubbing or cyanosis. Good capillary refill. . Peripheral Pulses: Normal. Health Maintenance List Depression Screening Never done Anxiety Screening Never done Covid-19 Vaccine( season) due on 11/09/2023 Influenza Vaccine(1) due on 11/09/2023 DTaP,Tdap,Td Vaccine(2 - Tdap) due on 09/16/2024 Diabetes Screening due on 11/04/2026 Bone Density Screening Completed RSV Vaccine Completed Shingrix Vaccine Completed Pneumococcal Vaccine: 65+ Completed HPV Vaccine Aged Out Colorectal Cancer Screening Discontinued Advance Directive Discussion Discontinued Data reviewed See hpi ASSESSMENT/PLAN: 1. Hospital discharge follow-up - ICD9: V67.59, ICD10: Z09 (primary diagnosis) See below 2. Encounter for immunization - ICD9: V03.89, ICD10: Z23 - [employer] COVID-19 VACCINE AGE 12+ YR 3. Recurrent UTI (urinary tract infection) - ICD9: 599.0, ICD10: N39.0 Recheck urine today - URINALYSIS, WITH MICROSCOPIC - URINE CULTURE 4. Anemia, unspecified type - ICD9: 285.9, ICD10: D64.9 Recheck levels today - IRON AND TIBC - FOLATE, SERUM - FERRITIN - VITAMIN B12 5. Essential hypertension with goal blood pressure less than 140/90 - ICD9: 401.9, ICD10: I10 Will decrease BP medication. Patient has had a couple episodes of low BPat home and low normal in hospital. Will have a goal bp of over 120/70 and less than 140/90. Follow up in 2 weeks. Sooner prn. - COMPLETE BLOOD COUNT AND DIFFERENTIAL - BASIC METABOLIC PANEL 6. Vitamin B12 deficiency - ICD9: 266.2, ICD10: E53.8 Recheck today 7. Hypomagnesemia - ICD9: 275.2, ICD10: E83.42 recheck - MAGNESIUM Destini Lay PA-C documented in this encounterCleveland [facility]09-19-[facility]24 Telephone encounter Note * Telephone Encounter - Yue Kirkland MA - 11/27/2023 4:22 PM EDT See update from pt's daughter regarding appt tomorrow and pt's medications. Yue Kirkland MA [facility]09-19-2024 Miscellaneous Notes* Telephone Encounter - Yue Kirkland MA - 11/27/2023 4:22 PM EDT See update from pt's daughter regarding appt tomorrow and pt's medications. Yue Kirkland MA documented in this encounterC[facility]09-16-2024 Telephone encounter Note * Telephone Encounter - Fawad Leong LPN - 11/24/2023 1:53 PM EDT Spoke with patient following up from procedure. Patient states they are doing well, no questions orconcerns at this time. Fawad Leong LPN [facility]09-16-2024 Miscellaneous Notes* Telephone Encounter - Fawad Leong LPN - 11/24/2023 1:53 PM EDT Spoke with patient following up from procedure. Patient states they are doing well, no questions orconcerns at this time. Fawad Leong LPN documented in this encounterCleveland Clinic [facility]09-13-2024 History of Present illness Narrative* Danii Roca MD, PhD - 11/21/2023 9:30 AM EDT [facility] Date: 11/21/2023 Patient name: Spenser Putnam Physician performing procedure: Danii Roca MD, PhD Procedure: Epidurals Transforaminal Epidural Steroid Injection (TFESI)- 2 Level or Bilateral under fluoroscopic guidance Levels Treated: Left L5-S1 and S1 Neural Foramen Approach: Left Oblique Injectate: A total of 6 ml, consisting of 1.5 ml of Dexamethasone (10mg/cc) and 4.5ml of 1% Lidocaine (3ml per site) Improvement after today's procedure: as per nursing report Diagnosis: (M54.16) Lumbar radiculopathy (primary encounter diagnosis) (M48.061) Spinal stenosis, lumbar region, without neurogenic claudication Comments: None HPI: Spenser Putnam is an 82 year old FEMALE with L CTS, HTN, HL, melanoma, Raynaud's, RLS, lumbar spinal stenosis, lumbar spondylolisthesis, s/p R hand squamous cell resection, s/p R CTR, s/p L-spine surgery (L3-5 laminectomy and posterior fusion per MRI report), who presents today for an elective transforaminal epidural steroid injection. Patient otherwise denies fevers, chills, weakness, saddle anesthesia, bowel or bladder incontinenceor recent antibiotic or anticoagulant use. Review of Systems: Pertinent Positives: MSK: pain in the region being treated Neuro: No weakness or numbness in the region being treated Skin: Negative (No itching) Eyes: Negative (No blurred or double vision) Respiratory: Negative (No Cough, [id number], Dyspnea on exertion, wheezing) Cardiovascular: Negative (No Chest Pain, Tightness, Pressure, Palpitations) Gastrointestinal: Negative (No Abdominal pain, Nausea, Vomiting, Constipation, Diarrhea) Genitourinary: Negative (No dysuria) Hematologic: Negative (No bleeding, bruising) OB: is Denied or Not Applicable Endocrine: Negative (No hot/cold intolerance) Psychiatric: Negative (No depression, anxiety or suicidal ideation) ALLERGIES Allergen Reactions Sulfa (Sulfonamide * Swelling, Anaphylaxis Tongue/ throat swelled Phenergan Plain Vomiting Vomiting Hydrocodone-Acetami* GI Upset NAUSEA Procardia [Nifedipi* Swelling legs Current Outpatient Medications on File Prior to Visit Medication Sig cyanocobalamin (VITAMIN B-12) 1,000 mcg tab Take 1 tablet by mouth once daily. pregabalin (LYRICA) 50 mg capsule Take one pill twice daily methylPREDNISolone (MEDROL, GLENNA,) 4 mg Dose-Pack As Instructed per package (Patient not taking: Reported on 10/16/2023) pravastatin (PRAVACHOL) 20 mg tablet Take 1 tablet by mouth daily at bedtime. lisinopril (ZESTRIL) 20 mg tablet Take 1 tablet by mouth once daily. potassium chloride 20 mEq TbER Take 1 tablet by mouth once daily. rOPINIRole (REQUIP) 4 mg tablet Take 1 tablet by mouth daily at bedtime. spironolactone (ALDACTONE) 50 mg tablet Take 1 tablet by mouth once daily. nortriptyline (PAMELOR) 75 mg capsule Take 1 capsule by mouth daily at bedtime. colchicine 0.6 mg tablet Take one tab by mouth 3 times a day till pain stops or script finished. ammonium lactate (LAC-HYDRIN) 12 % cream Apply to affected area as needed. aspirin, enteric coated (ADULT LOW DOSE ASPIRIN) 81 mg EC tablet Take 1 tablet by mouth once daily. calcium carbonate(CALTRATE 600 600 MG (1,500 MG) TAB) DAILY MULTIVITAMIN TAB Take by mouth. No current facility-administered medications on file prior to visit. 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 Macias, Rt anterior shoulder, Gilberto III, pT1a, pNX, pM N/A Mixed hyperlipidemia 10/13/2014 Multiple thyroid nodules 09/15/2017 CT neck09/2017 7 mm nodule, US 7.2019 multiple small nodules repeat 09/2019 Non morbid obesity 03/29/2016 Osteopenia, senile 07/02/2005 SEE DEXA 07/15 Other chronic dermatitis due to solar radiation 03/27/2006 Other psoriasis 04/16/2013 Other seborrheic keratosis 06/23/2006 Personal history of other malignant neoplasm of skin 03/22/2013 Raynaud's phenomenon without gangrene 06/07/2020 suspected Restless leg syndrome Sensorineural hearing loss, asymmetrical 10/08/2017 Solar lentigo 03/22/2013 Spinal stenosis of lumbar region 06/17/2023 Spinal stenosis, lumbar region, without neurogenic claudication 07/25/2023 Spondylolisthesis at L5-S1 level 10/20/2012 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 09/15/2012 Vertigo 12/03/2021 MRI normal and patient declined further eval as of 12/03/21 Vitamin B12 deficiency 11/09/2023 Vitamin D deficiency 08/24/2016 Xerosis cutis 03/22/2013 PAST SURGICAL HISTORY Procedure Laterality Date ABDOMINAL SURGERY HX BACK SURGERY HX 01/23/2021 lateral lumbar interbody fusion L3-4 CHOLECYSTECTOMY age 52 +/- laparoscopic cholecystectomy COLONOSCOPY 04/29/2013 Dr. Patton, repeat 5 yrs COLONOSCOPY FLX DX W/COLLJ SPEC WHEN PFRMD 07/09/2006 COLONOSCOPY FLX DX W/COLLJ SPEC WHEN PFRMD 04/29/2013 internal hemorrhoids, q5y for FHx COLONOSCOPY, GI 05/02/2000 FHx, repeat q5y DILATION & CURETTAGE DX&/THER NONOBSTETRIC Dilation & curettage EYE SURGERY HX PAST SURGICAL HISTORY OF 12/2011 squamous cell CA rt hand.left LE PAST SURGICAL HISTORY OF 04/2012 rt CTR-- endoscopic PAST SURGICAL HISTORY OF 2012 lumbar surgery- fusion PAST SURGICAL HISTORY OF 2013 excision melanoma right shoulder PAST SURGICAL HISTORY OF Right 2017 bunionectoy TONSILLECTOMY HX TONSILLECTOMY PRIMARY/SECONDARY <AGE 12 childhood Tonsillectomy FAMILY HISTORY Problem Relation Age of Onset Colon Cancer Mother ~70 Hypertension Mother Thyroid Mother Colon Cancer Father ~70 Hypertension Father Stroke Father Heart Father Hx of CHF Coronary Artery Disease Maternal Grandmother Hx of HI Diabetes Daughter Type I Social History Tobacco Use Smoking status: Never Smokeless tobacco: Never Vaping Use Vaping status: Never Used Substance Use Topics Alcohol use: Yes Alcohol/week: 3.9 standard drinks of alcohol Types: 3 Mixed Drinks per week Comment: 3-4/week Drug use: No Attestation Information obtained by others were confirmed and edited as necessary on 11/16/2023 by Danii Roca MD, PhD. Objective Exam: Vitals: As per nursing documentation Constitutional: Normal Appearance, Oriented to Time, Place and Person Head: No lacerations, no external signs of trauma Eyes: Conjunctiva clear. No discharge from the eyes Cardiovascular: Appears well-perfused Pulmonary: Non-labored respirations Abdominal: Non-distended Skin: No visible rashes or ecchymosis Psychiatric: Mood appropriate for given condition Neurological: no focal deficits, gross movements are limited by pain, but otherwise unremarkable Data Reviewed: Nursing note and vitals reviewed. Additional imaging reviewed as appropriate Assessment and Plan: We discussed their current plan and the pathology responsible for the patient's pain. Specific counseling related to the procedure was provided regarding the risks, benefits and alternatives. The patient wishes to proceed with the plan as noted above. Encounter Diagnosis ICD-10-CM 1. Lumbar radiculopathy M54.16 INJ TRANSFORAMINAL EPID ANES/STER LS SINGL INJ TRANSFRAM EPID ANES/STER LS MULTI lidocaine (PF) 10 mg/mL (1 %) 100 mg injection (XYLOCAINE) dexAMETHasone sodium phosphate 10 mg injection (DECADRON) iohexol 300 mg injection (OMNIPAQUE 300) PRE-CERT ORDER (AG) 2. Spinal stenosis, lumbar region, without neurogenic claudication M48.061 INJ TRANSFORAMINAL EPID ANES/STER LS SINGL INJ TRANSFRAM EPID ANES/STER LS MULTI lidocaine (PF) 10 mg/mL (1 %) 100 mg injection (XYLOCAINE) dexAMETHasone sodium phosphate 10 mg injection (DECADRON) iohexol 300 mg injection (OMNIPAQUE 300) PRE-CERT ORDER (AG) UNIVERSAL PROTOCOL / SAFETY CHECKLIST Procedure to be Performed: as stated above Sign In: A Moment of CARE was completed. Personnel directly involved with the procedure wore the appropriate PPE (Personal Protective Equipment). Patient/Surrogate Stated/Verified: PATIENT VERIFIED(optional for EMERGENT procedures): Patient name, Date of , Relevant allergies and The intended procedure Time Out Communication: Intended patient and procedure match the source documents. Consent documented and matches the intended procedure. Relevant labs, photos, and/or imaging studies have been reviewed. Medications required for procedure verified. Sign Out: SIGN OUT (optional for EMERGENT procedures): No specimen collected. Time out to confirm patient name, date of , procedure site, laterality, and allergies performed by physician. Please see nursing note for exact times (time out, procedure start, procedure end). [place] protocol documentation / Pre-Procedure checklist: Unless stated otherwise in the procedure note, the risks include but are not limited to infection, allergic reaction, increased pain, lack of therapeutic benefit, steroid reaction, nerve damage, paralysis, stroke, epidural hematoma, syncope, headache, respiratory or cardiac arrest, pneumothorax, and scar formation Time Out was led by the physician in the procedure room, with the patient and all staff present andparticipating The following information was verified: name, date of , procedure site (marked), laterality, anticoagulants and allergies [place] protocol documentation / Pre-Procedure Checklist: Consent: Obtained in writing prior to procedure Unless stated otherwise in the procedure note, the risks include but are not limited to infection, allergic reaction, increased pain, lack of therapeutic benefit, steroid reaction, nerve damage, paralysis, stroke, epidural hematoma, syncope, headache, respiratory or cardiac arrest, pneumothorax, and scar formation Once the plan was agreed upon, the patient gave written consent to proceed and was transported intothe procedure room Surgical/Procedure pause or Time Out : Time Out was led by the physician in the procedure room, with the patient and all staff present andparticipating The following information was verified during the Time Out process: Patient name, patient date of , procedure site (marked), laterality, anticoagulants and allergies Anticoagulants: reviewed with patient, notable for: none DESCRIPTION OF PROCEDURE: The patient was brought to the procedure room and placed in the prone position on the fluoroscopy table after informed consent was signed and all patient questions were answered including the risks, benefits, alternative treatment options, and prognosis. The risks are as mentioned above, except for pneumothorax. The lumbosacral area was prepped and draped in the usual sterile fashion using Chloroprep and a fenestrated drape. The above-mentioned neural foramen were sequentially injected using the following technique: The C-arm was positioned so that an oblique view of the neural foramen as noted above was visualized. The skin and subcutaneous tissue along the intended needle trajectories were anesthetized with 2 ml of 1% Lidocaine. Once adequate skin anesthesia was achieved, a 22-gauge 3.5 inch Quincke spinal needle was advanced toward the target neural foramen using a trajectory view along the fluoroscope beam. Under AP and lateral visualization, the needle was advanced so as to not puncture dura, and biplanar projections were used to confirm needle position. Once the desired needle tip location was achieved, the needles were aspirated and were negative for blood and CSF. Following this, a total of 1-2mL of Omnipaque contrast was injected under live fluoroscopy and showed appropriate epidural spread without intravascular or intrathecal uptake. After negative aspiration, the above noted injectate was administered at this level, and the needle was withdrawn. Attention was then turned to the second level mentioned above. The C-arm was positioned so that an oblique view of the neural foramen noted above was visualized. The skin and subcutaneous tissue along the intended needle trajectories were anesthetized with 2 ml of 1% Lidocaine. Once adequate skin an esthesia was achieved, a 22-gauge 3.5 inch Quincke spinal needle was advanced toward the target neural foramen using a trajectory view along the fluoroscope beam. Under AP and lateral visualization, the needle was advanced so as to not puncture dura, and biplanar projections were used to confirm needle position. Once the desired needle tip location was achieved, the needles were aspirated and were negative for blood and CSF. Following this, a total of 1-2mL of Omnipaque contrast was injected under live fluoroscopy and showed appropriate epidural spread without intravascular or intrathecal uptake. After negative aspiration, the above noted injectate was administered at this level, and the n eedle was withdrawn. Please see the nursing note for exact times (time out, procedure start, procedure end). After careful removal of the needle, there was minimal bleeding. The injection site was covered with appropriate sterile dressing. The patient was noted to have tolerated the procedure well and was discharged after an appropriate period of post-procedure observation. The patient was instructed to contact us if there were any complications. The patient was advised to follow-up with the requesting physician within one to two weeks or as per their requested follow-up plan. Post procedure visit summary with written instructions was offered to the patient. Danii Roca MD, PhD Pain Management [facility] * Marissa Briones LPN - 11/21/2023 8:40 AM EDT Review of Systems Constitutional: Positive for activity change. Negative for chills, fever and unexpected weight change. Gastrointestinal: Negative for bowel retention or incontinence Genitourinary: Negative for difficulty urinating. Negative for bladder retention or incontinence Musculoskeletal: Positive for back pain and gait problem. Negative for arthralgias, joint swelling,myalgias, neck pain and neck stiffness. Neurological: Negative for weakness, numbness and headaches. Psychiatric/Behavioral: Positive for sleep disturbance. Negative for dysphoric mood and suicidal ideas. The patient is nervous/anxious. documented in [facility] encounterC[facility] NoteHNO ID: [id number] Author: DANII ROCA MD, PhD Service: ? Author Type: Physician Type: Progress Notes Filed: 11/21/2023 18:27 Note Text: [facility] Date: 11/21/2023 Patient name: Spenser Putnam Physician performing procedure: Danii Roca MD, PhD Procedure: Epidurals Transforaminal Epidural Steroid Injection (TFESI)- 2 Level or Bilateral under fluoroscopic guidance Levels Treated: Left L5-S1 and S1 Neural Foramen Approach: Left Oblique Injectate: A total of 6 ml, consisting of 1.5 ml of Dexamethasone (10mg/cc) and 4.5ml of 1% Lidocaine (3ml per site) Improvement after today's procedure: as per nursing report Diagnosis: (M54.16) Lumbar radiculopathy (primary encounter diagnosis) (M48.061) Spinal stenosis, lumbar region, without neurogenic claudication Comments: None HPI: Spenser Putnam is an 82 year old FEMALE with L CTS, HTN, HL, melanoma, Raynaud's, RLS, lumbar spinal stenosis, lumbar spondylolisthesis, s/p R hand squamous cell resection, s/p R CTR, s/p L-spine surgery (L3-5 laminectomy and posterior fusion per MRI report), who presents today for an elective transforaminal epidural steroid injection. Patient otherwise denies fevers, chills, weakness, saddle anesthesia, bowel or bladder incontinence or recent antibiotic or anticoagulant use. Review of Systems: Pertinent Positives: MSK: pain in the region being treated Neuro: No weakness or numbness in the region being treated Skin: Negative (No itching) Eyes: Negative (No blurred or double vision) Respiratory: Negative (No Cough, [id number], Dyspnea on exertion, wheezing) Cardiovascular: Negative (No Chest Pain, Tightness, Pressure, Palpitations) Gastrointestinal: Negative (No Abdominal pain, Nausea, Vomiting, Constipation, Diarrhea) Genitourinary: Negative (No dysuria) Hematologic: Negative (No bleeding, bruising) OB: is Denied or Not Applicable Endocrine: Negative (No hot/cold intolerance) Psychiatric: Negative (No depression, anxiety or suicidal ideation) ALLERGIES Allergen Reactions Sulfa (Sulfonamide * Swelling, Anaphylaxis Tongue/ throat swelled Phenergan Plain Vomiting Vomiting Hydrocodone-Acetami* GI Upset NAUSEA Procardia [Nifedipi* Swelling legs Current Outpatient Medications on File Prior to Visit Medication Sig cyanocobalamin (VITAMIN B-12) 1,000 mcg tab Take 1 tablet by mouth once daily. pregabalin (LYRICA) 50 mg capsule Take one pill twice daily methylPREDNISolone (MEDROL, GLENNA,) 4 mg Dose-Pack As Instructed per package (Patient not taking: Reported on 10/16/2023) pravastatin (PRAVACHOL) 20 mg tablet Take 1 tablet by mouth daily at bedtime. lisinopril (ZESTRIL) 20 mg tablet Take 1 tablet by mouth once daily. potassium chloride 20 mEq TbER Take 1 tablet by mouth once daily. rOPINIRole (REQUIP) 4 mg tablet Take 1 tablet by mouth daily at bedtime. spironolactone (ALDACTONE) 50 mg tablet Take 1 tablet by mouth once daily. nortriptyline (PAMELOR) 75 mg capsule Take 1 capsule by mouth daily at bedtime. colchicine 0.6 mg tablet Take one tab by mouth 3 times a day till pain stops or script finished. ammonium lactate (LAC-HYDRIN) 12 % cream Apply to affected area as needed. aspirin, enteric coated (ADULT LOW DOSE ASPIRIN) 81 mg EC tablet Take 1 tablet by mouth once daily. calcium carbonate(CALTRATE 600 600 MG (1,500 MG) TAB) DAILY MULTIVITAMIN TAB Take by mouth. No current facility-administered medications on file prior to visit. 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 Macias, Rt anterior shoulder, Gilberto III, pT1a, pNX, pM N/A Mixed hyperlipidemia 10/13/2014 Multiple thyroid nodules 09/15/2017 CT neck09/2017 7 mm nodule, US .2018 multiple small nodules repeat 09/2019 Non morbid obesity 03/29/2016 Osteopenia, senile 07/02/2005 SEE DEXA 07/15 Other chronic dermatitis due to solar radiation 03/27/2006 Other psoriasis 04/16/2013 Other seborrheic keratosis 06/23/2006 Personal history of other malignant neoplasm of skin 03/22/2013 Raynaud's phenomenon without gangrene 06/07/2020 suspected Restless leg syndrom (more content not included)...[facility] 11-21-2023 Instructions* Patient Instructions* Karina Jorgensen LPN - 11/21/2023 9:15 AM EDT PROCEDURE DISCHARGE INSTRUCTIONS 11/21/2023 [place] 1940 Physician: Danii Roca MD, PhD Procedure: Epidural Steroid Injection: Lumbar (transforaminal/Interlaminar/Caudal) Post Procedure Instructions: If sedation not given, no driving for 3 hours after the procedure., Rest the day of the procedure.,You may resume normal activities the day after the procedure, as tolerated., Pain should gradually subside over the next 2-3 weeks., Avoid movements that may aggravate pain., Apply cold compresses toinjection site if needed., If medically acceptable, take over the counter anti-inflammatories such as ibuprofen or Aleve if needed for post procedure discomfort., and No hot baths, hot tubs or hot compresses for 24 hours. If you have any of the following signs or symptoms, please call our office at Fever and/or chills Swelling and/or drainage from injection site New pain that is different than your normal pain (other than soreness at the site of the procedure) Stiff neck Shortness of breath Severe increase in pain Motor dysfunctions, such as difficulty walking, bowel or bladder dysfunction and/or incontinence Headache that is severe, light sensitive or develops when changing positions (positional headache) Nausea and/or vomiting accompanied by headache that started 24-48 hours after the procedure If you have any emergent concerns, please call 911 or go to your local emergency room. Please also contact our office to let us know you will be seeking emergency care and why. documented in this encounterC[facility] Nurse Note* Karina Jorgensen LPN - 11/21/2023 9:13 AM EDT Order has been placed in the patient's chart with the following parameters for discharge from the physician: Patient is alert and oriented Vitals: Diastolic/Systolic +/- 20mmHg Respirations: 12-18 Pulse: 60-100 SpO2 is greater than or equal to 90% Patient has no nausea or vomiting Patient has no dizziness Pain level is +/- 2 from initial evaluation Dressing, dry and intact with no evidence of bleeding Criteria has been met, patient is okay to be discharged per the physician. Physician has gone in and evaluated the patient. Dressing dry and intact. No drainage noted. The patient denies nausea, tingling, weakness, shortness of breath, dizziness, or headache. Pain level 0/10. Vital signs within normal limits. Patient complains of numbness in both feet, left is worse. Patient was observed for an hour and improved upon discharge. Patient requested a wheelchair as a precaution. Patient given discharge instructions and sent out via wheelchair. Patient left in good condition. [facility]09[facility] Note* Karina Jorgensen LPN - 11/21/2023 9:13 AM EDT Order has been placed in the patient's chart with the following parameters for discharge from the physician: Patient is alert and oriented Vitals: Diastolic/Systolic +/- 20mmHg Respirations: 12-18 Pulse: 60-100 SpO2 is greater than or equal to 90% Patient has no nausea or vomiting Patient has no dizziness Pain level is +/- 2 from initial evaluation Dressing, dry and intact with no evidence of bleeding Criteria has been met, patient is okay to be discharged per the physician. Physician has gone in and evaluated the patient. Dressing dry and intact. No drainage noted. The patient denies nausea, tingling, weakness, shortness of breath, dizziness, or headache. Pain level 0/10. Vital signs within normal limits. Patient complains of numbness in both feet, left is worse. Patient was observed for an hour and improved upon discharge. Patient requested a wheelchair as a precaution. Patient given discharge instructions and sent out via wheelchair. Patient left in good condition. * Ashutosh Vance LPN - 11/21/2023 8:41 AM EDT Procedure to be performed: L5/S1-S1 Unilateral Left Transforaminal Epidural Steroid Injection Patient was wheeled on stretcher from pre op bay to procedure room and assisted onto the procedure tablePatient s procedure was performed in an [facility] Procedure room. Pause completed at each level by provider to verify correct level and laterality placement Pressure was applied to patient s injection site(s) and bleeding was minimal. Patient had no complaint of shortness of breath, dizziness, headache, numbness, tingling, weakness or complications from procedure. Patient was assisted from the procedure table onto the stretcher and wheeled into a post op bay. Patient was advised a clinician will be to obtain another set of vitals. Time Out: 850 Confirmed patient name, date of , procedure site, laterality, and allergies Procedure Start: 853 Procedure End: 908 * Marissa Briones LPN - 11/21/2023 8:31 AM EDT Supervisor [employer] Name: LARRY Are you on a blood thinner: N If yes, is a hold required: N Last dose of blood thinner: N INR Result today: N Do you require a Lovenox bridge:N Are you a diabetic:N Are you/or could you be : N Are you taking Xanax for the procedure: N Are you currently on a steroid? N Are you currently on an antibiotic: N Have you had a COVID-19 vaccine in the last 14 days Or are you scheduled to receive one? N documented in this encounterC[facility] Nurse Note* Ashutosh Vance LPN - 11/21/2023 8:41 AM EDT Procedure to be performed: L5/S1-S1 Unilateral Left Transforaminal Epidural Steroid Injection Patient was wheeled on stretcher from pre op bay to procedure room and assisted onto the procedure tablePatient s procedure was performed in an [facility] Procedure room. Pause completed at each level by provider to verify correct level and laterality placement Pressure was applied to patient s injection site(s) and bleeding was minimal. Patient had no complaint of shortness of breath, dizziness, headache, numbness, tingling, weakness or complications from procedure. Patient was assisted from the procedure table onto the stretcher and wheeled into a post op bay. Patient was advised a clinician will be to obtain another set of vitals. Time Out: 850 Confirmed patient name, date of , procedure site, laterality, and allergies Procedure Start: 853 Procedure End: 908 [facility]09-13-[facility]24 NoteHNO ID: [id number] Author: MARISSA BRIONES LPN Service: ? Author Type: LICENSED NURSE Type: Progress Notes Filed: 11/21/2023 18:27 Note Text: Review of Systems Constitutional: Positive for activity change. Negative for chills, fever and unexpected weight change. Gastrointestinal: Negative for bowel retention or incontinence Genitourinary: Negative for difficulty urinating. Negative for bladder retention or incontinence Musculoskeletal: Positive for back pain and gait problem. Negative for arthralgias, joint swelling, myalgias, neck pain and neck stiffness. Neurological: Negative for weakness, numbness and headaches. Psychiatric/Behavioral: Positive for sleep disturbance. Negative for dysphoric mood and suicidal ideas. The patient is nervous/anxious.[facility]* Marissa Briones LPN - 11/21/2023 8:31 AM EDT Supervisor [employer] Name: LARRY Are you on a blood thinner: N If yes, is a hold required: N Last dose of blood thinner: N INR Result today: N Do you require a Lovenox bridge:N Are you a diabetic:N Are you/or could you be : N Are you taking Xanax for the procedure: N Are you currently on a steroid? N Are you currently on an antibiotic: N Have you had a COVID-19 vaccine in the last 14 days Or are you scheduled to receive one? N [facility]09-09-[facility] History of Present illness Narrative* Zo Metcalf RN - 11/17/2023 1:26 PM EDT Transition Care Management (TCM) Initial Outreach PCP Update / Actionable Items HRTIC TCM Home Visit Referral Source of Stratification: [facility] Admission Status: Discharged Readmission Risk Score: n/a Patient's zip code: [address] Is zip code within program service area: No Patient meets program referral criteria: No Patient does not qualify for High Risk TCM Home Visit program due to: Readmission Risk Score does not meet criteria Disposition: Patient does not qualify for HRTIC, will provide TCM outreach follow-up for 30-days Patient Source: [id number] (OON) Discharge Outreach Summary: Pt reports she is feeling better. Denies any dizziness, lightheadedness. States several tests done - diagnosed with a UTI and rx Keflex. Pt encouraged to bring AVS from [facility] to TCM f/u. Patient discharged from [facility] Discharge date: 11/15/23 Admitted for: Syncope , Hypotension Readmission Risk: n/a Value-Based Contract: ACO Contact: Contact made with patient: Yes Hi, my name is Zo Metcalf RN and I am calling from the [facility] on behalf of your Primary Care Provider, Juan Spann MD. I understand you were recently in the hospital, so I am calling to check in with you to ensure you are feeling well now that you are home. May I ask you a few questions related to your hospital stay and well-being? Yes Spoke to: Patient Validation: Validated the person spoken to is actively involved in the patient's care. The patient was identified by Name and Date of . Symptoms: Are you feeling about the same, better or worse since leaving the hospital? Better Medications: Do you have any questions about taking your medications, including which medications you should be on, or do you need refills on your medications? No Medication Review: Partial mediation review completed, per patient preference Pt states rx Keflex at discharge. Discharge Instructions: Your Discharge Instructions / After Visit Summary (AVS) are important in guiding you through the recovery process. Do you have any questions related to your discharge instructions? No Home Care: Were you discharged with home care? No Equipment: Do you have all the necessary equipment and supplies needed at your home? Yes The patient verbalizes understanding the use of the equipment and supplies Social: We would like to make sure you have what you need so that your basics needs are met - including your personal safety, food, housing and medications. Would you like to speak with a social work manufacturing team leader to help give you support for any of these needs? not assessed It can be normal to feel anxious or down during a time like this. Would you like to talk to a mental health professional about how you have been feeling? not assessed Action Taken: No needs verbalized. No action required. Follow-Up Appointment: [Appointment / TCM Follow-up within 14 days] I would like to help you schedule a hospital follow-up virtual or telephone visit with your PCP. This is a great way for you to connect with your provider to ensure you have safely transitioned home.If you are agreeable, I will send your request to a gun numberer who will contact and assist you with that appointment. This will give you an opportunity to ask any questions or address any concerns youmay have with your PCP. Inform the patient that if they have any questions or concerns prior to that appointment, to call their PCP's office right away. Appointment Action: No action required; patient already has appointment scheduled. Education Patient and family educated on issues/questions related to reason for admission, transition of caretopics, and follow-up needed upon discharge. Targets addressed / completed during outreach: Contact patient within two (2) business days Outreach Outcome: Enrolled in TCM Care Management partners utilized: N/A Zo Metcalf RN November 17, 2023 1:46 PM documented in this encounterC[facility] History of Present illness Narrative* Kelle Joyce MA - 11/17/2023 12:58 PM EDT Scan on 11/15/2023 11:53 AM by ProviderKirk PA-C: Discharge Summary Sent my chart message to patient to help schedule. Patient to follow up in 2 weeks with PCP/team. Kelle Joyce MA documented in this encounterC[facility] History of Present illness Narrative* Kelle Joyce MA - 11/14/2023 10:45 AM EDT Scan on 11/13/2023 10:26 PM by ProviderKirk PA-C: Consultation - Emergency Medicine Scan on 11/14/2023 1:00 AM by ProviderKirk PA-C: Consultation - Emergency Medicine Admit to [facility] - Syncope episode. Kelle Joyce MA documented in this encounterC[facility] Telephone encounter Note * Telephone Encounter - Rosalba Arriaga LPN - 11/13/2023 10:56 AM EDT Called the patient, more info added to the telephone encounter and sent to the Provider. Rosalba Arriaga LPN [facility]09-05-2024 Miscellaneous Notes* Telephone Encounter - Rosalba Arriaga LPN - 11/13/2023 10:56 AM EDT Called the patient, more info added to the telephone encounter and sent to the Provider. Rosalba Arriaga LPN documented in this encounterC[facility]09-04-2024 Telephone encounter Note * Telephone Encounter - Jade Torres MA - 11/12/2023 11:35 AM EDT Patient left a voicemail stating that the Lyrica is making her swell she would like to know what todo? Please advise [facility]09-04-2024 Miscellaneous Notes* Telephone Encounter - Jade Torres MA - 11/12/2023 11:35 AM EDT Patient left a voicemail stating that the Lyrica is making her swell she would like to know what todo? Please advise documented in this encounterC[facility]09-03-2024 Telephone encounter Note * Telephone Encounter - Kelle Joyce MA - 11/11/2023 9:29 AM EDT Patient notified via phone call and sent my chart with results and instructions. Kelle Joyce MA [facility]09-03-2024 Miscellaneous Notes* Telephone Encounter - Kelle Joyce MA - 11/11/2023 9:29 AM EDT Patient notified via phone call and sent my chart with results and instructions. Kelle Joyce MA * Telephone Encounter - Juan Spann MD - 11/09/2023 6:39 PM EDT Let patient know bone study shows her osteopenia is mild. Cont her daily Calcium and advise trying to get 1000 international unit(s) 's of Vit D a day. CBC shows her anemia of chronic disease is stable. Her B12 is low at 185 and would advise starting Vit B 12 1000 mg a day over the counter. Will placeorder to get repeat B12 in 2 months. Her kidney functions are improved and almost back in normal range. Cont to try to get 7-8 eight ounce glasses of water a day. Her Vit D, Iron studies, Folate, Alk Phose studies and repeat liver functions were all ok. The labsfor Hep A, B and C were all neg. documented in this encounterCleveland [facility]09-01-2024 Telephone encounter Note * Telephone Encounter - Juan Spann MD - 11/09/2023 6:39 PM EDT Let patient know bone study shows her osteopenia is mild. Cont her daily Calcium and advise trying to get 1000 international unit(s) 's of Vit D a day. CBC shows her anemia of chronic disease is stable. Her B12 is low at 185 and would advise starting Vit B 12 1000 mg a day over the counter. Will placeorder to get repeat B12 in 2 months. Her kidney functions are improved and almost back in normal range. Cont to try to get 7-8 eight ounce glasses of water a day. Her Vit D, Iron studies, Folate, Alk Phose studies and repeat liver functions were all ok. The labsfor Hep A, B and C were all neg. [facility]08-23-20[facility] History of Present illness Narrative* Sawyer Ngo RT(R) - 10/31/2023 1:05 PM EDT Radiology Service Progress Note PATIENT NAME: Spenser Putnam DATE OF SERVICE: October 31, 2023 TIME: 1:13 PM PATIENT IDENTITY VERIFICATION COMPLETED USING TWO (2) IDENTIFIERS: Name and Date of confirmedby patient verbally. FALL SCREENING: Has the patient had 2 falls in the last year or 1 fall with injury or currently using an Ambulatory Assistive Device (Walker, Cane, Wheelchair, Crutches, etc.)? No PATIENT GENDER DATA: Female. status: : No status: NO. PATIENT RELEVANT IMPLANT DATA REVIEWED: Not Applicable PATIENT PRESENTS WITH AN IMPLANTABLE OR ATTACHED OPERATIONS ANALYST: No RADIOLOGY DEPARTMENT: Bone Density PERIPHERAL IV DATA: Not applicable SIGNED BY: RT Evan(R) October 31, 2023 1:13 PM documented in this encounterCleveland [facility]08-08-2024 Telephone encounter Note * Telephone Encounter - Priscilla Vivar - 10/16/2023 8:35 AM EDT Procedure(s) being scheduled: 1.Are you diabetic No 2. Are you on any blood thinners? No 3. Are you taking any aspirin? Yes. Please list the current medications being prescribed 81mg asp. 4. Are you currently taking any antibiotics? No 5. Do you have any allergies to latex? No 6. Do you have any allergies to seafood or shellfish? No 7. Do you have any allergies to x-ray dye? No 8. Did the physician instruct you to take any medication prior to your procedure? No 9. Does this procedure require a driver service technician? Yes If yes, has patient been notified that a driver service technician is needed and must be present at check in? yes 10. Were the pre-procedure instructions explained and provided to the patient? Yes 11. Do you have a pacemaker? No 12. Do you have an internal stimulator of any kind? No 13. Have you received the COVID-19 Vaccine? No. (Patient should not receive a procedure including steroids 14 days prior to their first dose of theCOVID vaccine. They should not receive any procedure containing steroids in the time frame between their 1st and 2nd doses of the COVID vaccine. They should not receive a procedure containing steroids 14 days after their 2nd dose of the COVID vaccine.) Priscilla Vivar [facility]08-08-2024 Miscellaneous Notes* Telephone Encounter - Priscilla Vivar - 10/16/2023 8:35 AM EDT Procedure(s) being scheduled: 1.Are you diabetic No 2. Are you on any blood thinners? No 3. Are you taking any aspirin? Yes. Please list the current medications being prescribed 81mg asp. 4. Are you currently taking any antibiotics? No 5. Do you have any allergies to latex? No 6. Do you have any allergies to seafood or shellfish? No 7. Do you have any allergies to x-ray dye? No 8. Did the physician instruct you to take any medication prior to your procedure? No 9. Does this procedure require a driver service technician? Yes If yes, has patient been notified that a driver service technician is needed and must be present at check in? yes 10. Were the pre-procedure instructions explained and provided to the patient? Yes 11. Do you have a pacemaker? No 12. Do you have an internal stimulator of any kind? No 13. Have you received the COVID-19 Vaccine? No. (Patient should not receive a procedure including steroids 14 days prior to their first dose of theCOVID vaccine. They should not receive any procedure containing steroids in the time frame between their 1st and 2nd doses of the COVID vaccine. They should not receive a procedure containing steroids 14 days after their 2nd dose of the COVID vaccine.) Priscilla Vivar documented in this encounterCleveland Clinic [facility]08-08-2024 NoteHNO ID: [id number] Author: ASHUTOSH VANCE LPN Service: ? Author Type: LICENSED NURSE Type: Progress Notes Filed: 10/16/2023 08:33 Note Text: Review of Systems Constitutional: Positive for activity change. Musculoskeletal: Positive for arthralgias, back pain and gait problem. Neurological: Positive for numbness. Psychiatric/Behavioral: Positive for dysphoric mood.[facility] 10-16-2023 History of Present illness Narrative* Ashutosh Vance LPN - 10/16/2023 8:12 AM EDT Review of Systems Constitutional: Positive for activity change. Musculoskeletal: Positive for arthralgias, back pain and gait problem. Neurological: Positive for numbness. Psychiatric/Behavioral: Positive for dysphoric mood. * Jackson Sumner MD - 10/13/2023 6:58 AM EDT Images from the original note were not included. [facility] [place] [facility] Today's Date: 10/15/2023 Name: Spenser Putnam : 1940 Purpose: Follow-up Patient Evaluation - This is an established patient, returning today for continued evaluation and management of the chief complaint noted below Chief complaint: Spinal stenosis of lumbar region Referring Clinician: Destini Lay PA-C Pertinent Past Medical History: Insomnia, RLS, Carpal tunnel - left, HLD, HTN, Valvular heart disease, Raynaud's phenomenon, H/O other malignant neoplasm of skin, Lumbar disc herniation, DJD of sternoclavicular joint, 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, Pertinent Past Surgeries: Lumbar interbody fusion L3-4 (2020), Lumbar fusion (2012), Plan at last visit: (Seen on 06/26/2023 by Aj Graham CNP) Interventional Procedures: Genicular Nerve Block (Superior Medial, Inferior Medial, Superior Lateral - Diagnostic only, NO steroids) left leg Functional Yarsani: Physical Therapy Consultation (Land-Based) Follow-up: 2 months Depending on response to the above plan, consider: MBB/RFA, Synvisc One Knee; Genicular blocks/RFA Interval History: Overall pain and functional disability since last visit: Better New Complaints since last visit: No She had left knee genicular nerve Radiofrequency Ablation (RFA) in July, reports 80% relief of pain.Particularly, improvement in the left knee area, but still having pain in the left thigh and ankle. She started the Lyrica, but discontinued it and does not recall why. She saw PT on 07/24 and 08/10, she notes that she did not need further treatments. Review of notes shows that further treatment was advised. PAIN DESCRIPTION: Timing: Constant Character: Aching, Dull Primary Location: left knee Radiation: lateral thigh and gomez, occasionally low back Exacerbating factors: Standing, Walking Relieving factors: Sitting, Lying Down Interferes with: walking (uses a walker) Current Pain Medications: Neuropathics: Pamelor 75mg qHS for sleep NSAIDS: Naproxen 500mg BID PRN Muscle Relaxants: Topicals: Other Prescription or OTC Pain Medications: Opioids (when applicable): No question data found. Anti-depressants or Mood-Stabilizers: None Anti-Coagulants: None Therapies Attended (Current or Most Recent): [facility] 04/17/2023 [facility] SPINE COMBINATION Questionnaire GREENLIGHT Completed Date 04/17/2023 Questionnaire Opiod Risk Tool Completed Date 04/17/2023 Comments 0 No question data found. (All drug screens are appropriate unless indicated otherwise) Notabl e Events During Course of Treatment: 04/15/2023 - Initial HPI (Obtained by Jackson Sumner M.D.). DURATION AND ONSET: The pain complaint has been present for approximately 40 years. The pain had a gradual onset. The mechanism of injury is unknown. RED FLAG SYMPTOMS: denies red flags. She saw her spine surgeon, who advised non-op management. She reports she had low back pain and left lower limb radicular symptoms that responded to surgery both times. She developed new onset low back pain and the left lower limb pain one month ago suddenly. She saw Dr. Gomez in 2012, did TFESI at L2-3 x 2, does not recall results. Treatment History: PAIN PROCEDURES: DATE PROCEDURE IMPROVEMENT 08/06/2023 RFA Left Knee (Genic N.) 80% (10/16/2023 ) 05/26/2023 L knee CSI <10 04/30/2023 L TFESI L4-S1 >50% MEDICATIONS Taken TO DATE (for the chief complaint(s)): Neuropathics: Neurontin (Gabapentin), Lyrica (Prebabalin), Pamelor (Nortriptyline), Elavil (Amitriptyline) NSAIDS: Naprosyn (Naproxen), Mobic (Meloxicam) Muscle Relaxants: None Topicals: None Other Prescription or OTC Pain Medications: Aspirin Opioids: Tramadol, Oxycodone (eg Percocet) Data Reviewed Today: Allergies: ALLERGIES Allergen Reactions Sulfa (Sulfonamide * Swelling, Anaphylaxis Tongue/ throat swelled Phenergan Plain Vomiting Vomiting Hydrocodone-Acetami* GI Upset NAUSEA Procardia [Nifedipi* Swelling legs Social History Tobacco Use Smoking status: Never Smokeless tobacco: Never Vaping Use Vaping Use: Never used Substance Use Topics Alcohol use: Yes Alcohol/week: 3.9 standard drinks of alcohol Types: 3 Mixed Drinks per week Comment: 3-4/week Drug use: No 09/17/2023 10/15/2023 INTAKE PAIN ASSESSMENT Are you having pain associated with your visit today? No Yes, Provider notified Pain Level 9 Pain Location Leg-Right Description Aching;Sharp;Shooting Duration Amount of Time 3 Duration Units Months Frequency Continuous Intervention/Comfort measure Medication;Cold;Heat;Pillow support;Positioning Compliance: PDMP website checked and validated on 10/15/2023 by Jackson Sumner MD All prescriptions have been APPROPRIATELY filled. No suspicious activity was identified. 04/17/2023 [facility] SPINE COMBINATION Questionnaire GREENLIGHT Completed Date 04/17/2023 Questionnaire Opiod Risk Tool Completed Date 04/17/2023 Comments 0 (All drug screens are appropriate unless indicated otherwise) Risk Assessment: EVI-7: 04/17/2023 EVI - 7 SCORES Score 0 (0-4) minimal anxiety, (5-9) mild anxiety, (10-14) moderate anxiety, (15-21) severe anxiety PHQ-9: 05/19/2013 10/17/2021 04/17/2023 PHQ-9 Score 3 5 0 (0-4) minimal depression, (5-9) mild depression, (10-14) moderate depression, (15-19) moderately severe depression, (20-27) severe depression Diagnostic Studies: Relevant Imaging: MRI Spine Report MRI LUMBAR SPINE WO IVCON Exam End: 03/27/2023 1:23 PM (Final result) Narrative: * * *Final Report* * * DATE OF EXAM: Mar 27 2023 1:23PM UMER [id number] - MRI LUMBAR SPINE WO IVCON / PROCEDURE REASON: multiple diagnoses * * * * Physician Interpretation * * * * EXAMINATION: MRI LUMBAR SPINE WO IVCON CLINICAL HISTORY: Radiculopathy of lumbar region Spinal stenosis of lumbar region with neurogenic claudication. TECHNIQUE: Routine lumbosacral spine MR protocol without gadolinium. MQ: [id number] COMPARISON: MRI lumbar spine dated 06/19/2012. Lumbar spine radiographs dated 03/21/2023. RESULT: Counting reference: Lumbosacral junction. For the purposes of this report, L4-5 is considered the level of the iliac crest and assume there are 5 lumbar-type vertebrae. Anatomic variant: None. Localizer images: No additional significant findings. Alignment: Disc space narrowing seen at L3-L4. 2 mm grade 1 retrolisthesis of L2 on L3. 3 mm grade 1 retrolisthesis of L3 on L4. 4 mm grade 1 anterolisthesis of L5 on S1. Bone marrow signal/fracture: Endplate degenerative signal change seen at L2-L3, L4-L5, and L5-S1. Susceptibility artifact from interbody fusion hardware at L3-L4, posterior fusion hardware at L4-L5, and left lateral screws at L3-L4 seen. Laminectomies seen at L3-L5. Conus: The conus is within normal limits of signal intensity and morphology. Paraspinal soft tissues: Disruption of the posterior fat planes at the mid and lower lumbar levels secondary to prior surgery. Lower thoracic spine: Visualized lower thoracic canal and foramina are patent. L1-L2: Minimal bulging annulus. Canal and foramina are patent. L2-L3: Bulging annulus and moderate to severe facet degenerative changes. Moderate to severe canal stenosis. Mild to moderate left and mild right foraminal narrowing. L3-L4: Bulging annulus and moderate facet degenerative change. Mild to moderate canal stenosis and left greater than right subarticular recess narrowing. Moderate bilateral foraminal narrowing. L4-L5: Bulging annulus. Canal is decompressed. Neural foramina are patent. L5-S1: Mild bulging annulus. Moderate facet degenerative changes. Mild to moderate left and mild right foraminal narrowing. Canals patent. Sacrum and iliac wings: Aside from degenerative change at L5-S1, the visualized sacrum and iliac wings are unremarkable. Compared to the prior MRI dated 06/19/2012, fusion hardware is new. Previously seen canal narrowing at L4-L5 has improved. Degenerative changes at other levels, most notably at L2-L3, have progressed. Impression: IMPRESSION: Postoperative changes with hardware and laminectomies at the L3-L5 levels. Multilevel degenerative changes, most significant at L2-L3 where there is moderate to severe canal stenosis (see full level by level discussion above). Otherwise, unremarkable MRI lumbar spine without contrast. Anatomic Lumbar Variant: None. L4-5 is considered the level of the iliac crest and assume there are 5 lumbar-type vertebrae. Ring Facer: [facility] Transcribe Date/Time: Mar 27 2023 1:25P Dictated by : RENEE CRUZ MD This examination was interpreted and the report reviewed and electronically signed by: RENEE CRUZ MD on Mar 27 2023 1:35PM EST X-ray Lumbar 03/2023 RESULT: 5 nonrib-bearing lumbar-type vertebrae. For numbering purposes, L4-5 is at the level of the iliac crest. Pedicle plate and screw device transfixes L4 and L5. No evidence of fracture or loosening. Disc spacer at L3-4 with hardware fixation. Mild grade 1 spondylolisthesis of L4 on L5, and L5 on S1. Moderate to severe disc space narrowing at L2-3 with vacuum phenomenon. Osteopenia. SI joints appear unremarkable IMPRESSION: DEGENERATIVE, POSTOPERATIVE CHANGE AND ALIGNMENT ABNORMALITIES DESCRIBED X-ray Rt. Hip 02/2023 RESULT: Bony mineralization within normal limits. Mild to moderate degenerative narrowing and bony spurring at the right hip joint. No acute fracture or dislocation is seen at the right hip. Lower lumbar fusion hardware from L3 to L5 IMPRESSION: Mild to moderate degenerative change with prominent spurring at the right hip similar to the previous MRI Lumbar 11/2020 Electrodiagnostic Study (EMG): 08/17/2020- Recent Labs: Creatinine Date Value Ref Range Status 09/15/2023 1.16 (H) 0.58 - 0.96 mg/dL Final eGFR, Date Value Ref Range Status 11/06/2012 >60 Final No results found for: PCGLUCOSE Current Medications, Past Medical History, Past Surgical History, Family History, Social History and Review of Systems: On today's date, noted above, I have confirmed and edited as necessary, the PFSH and ROS obtained by others. Physical Exam: There were no vitals filed for this visit. Neuro-Lower: Neural Tension Signs: Negative slump in Bilateral lower limbs Sensation: intact to light touch in the L2-S2 Bilateral lower limb dermatomes Muscle Tone: Normal and symmetric throughout without clonus Strength: Iliopsoas (L2): 5 Left, 5 Right Quadriceps (L3) 5 Left, 5 Right Anterior Tibialis (L4): 5 Left, 5 Right Extensor Hallucis Longus (L5): 5 Left, 5 Right Gastrocnemius (S1): 5 Left, 5 Right Reflexes: Normal 2+ and symmetric Patellar, Achilles Musculoskeletal-Lower: Inspection: Symmetric without atrophy Palpation: Lumbar Paraspinal Tenderness: Concordant on Bilateral side(s) Paraspinal Spasms: None PSIS Tenderness: None on Bilateral side(s) Greater Trochanter Tenderness: None on Bilateral side(s) Spine Range of Motion: Flexion: Decreased 25% Without end range pain Extension: Decreased 50% With end range pain Combination extension and rotation pain: Concordant Hip Range of Motion: Right Hip: Internal Rotation: Normal; Pain at end range: None External Rotation: Normal; Pain at end range: None Left Hip: Internal Rotation: Normal; Pain at end range: None External Rotation: Normal; Pain at end range: None Sacroiliac Maneuvers: Deferred Left Knee(s): Inspection: No edema Palpation: No tenderness to palpation of medial and lateral joint lines Range of Motion: Normal and non-painful active extension and flexion No crepitus Special Tests: No ligamentous laxity with Anterior drawer, Posterior drawer, Flakita, Varus stress, Valgus stress IMPRESSION: 82 year old female presents with complaint(s) of recurrent low back pain and left lowerlimb radicular symptoms in a predominantly L5 dermatomal distribution. She has prior fusion at L4-5, with central canal stenosis at L3-4. She also has concordant pain over the left knee, with good relief of knee pain following RFA. Residual left lower limb pain is radicular. Diagnoses:(M54.16) Lumbar radiculopathy (primary encounter diagnosis) (M48.061) Spinal stenosis, lumbar region, without neurogenic claudication (M17.0) Primary osteoarthritis of both knees PLAN: Spenser Putnam would benefit from the following to reach personal goals for decreasing pain, improving function and work participation, and/or improving quality of life: Medications: Requested Prescriptions No prescriptions requested or ordered in this encounter Lyrica 50mg BID - restart Interventional Procedures: Epidural Steroid Injection - Transforaminal Approach (TFESI) under fluoroscopic guidance LEFT-SIDEDat S1 and L5-S1 Supervisor Frame Sample And Pattern Needed: Epidural - YES Anticoagulant - Hold Needed: N/A (Not currently on Anticoagulants) Anticoagulant - Currently Taking: None Allergies (relevant): None Scheduling - Mobility (Can Patient independently transfer on/off an OR or Procedure table?): YES (May schedule at any location) Scheduling - Additional Info: None Studies: None Functional Yarsani: Physical Therapy Consultation (Land-Based) Referrals: No additional considerations at present Follow-up: 2 months Depending on response to the above plan, consider: SCS discussion, titrate Lyrica Compliance and Clinic Policies Reviewed and/or Discussed Today: None Attribution: In addition to reviewing the information noted above, some elements copied from my most recent clinical note(s), including the physical exam (completed in entirety today), and the impression and plan sections, have been updated where appropriate. All reflect current medical decision making from today's date. Jackson Sumner MD Pain Management [facility] documented in this encounterCleveland [facility] NoteHNO ID: [id number] Author: JACKSON SUMNER MD Service: ? Author Type: Physician Type: Progress Notes Filed: 10/16/2023 08:33 Note Text: [facility] Today's Date: 10/15/2023 Name: Spenser Putnam : 1940 Purpose: Follow-up Patient Evaluation - This is an established patient, returning today for continued evaluation and management of the chief complaint noted below Chief complaint: Spinal stenosis of lumbar region Referring Clinician: Destini Lay PA-C Pertinent Past Medical History: Insomnia, RLS, Carpal tunnel - left, HLD, HTN, Valvular heart disease, Raynaud's phenomenon, H/O other malignant neoplasm of skin, Lumbar disc herniation, DJD of sternoclavicular joint, 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, Pertinent Past Surgeries: Lumbar interbody fusion L3-4 (2020), Lumbar fusion (2012), Plan at last visit: (Seen on 06/26/2023 by Aj Prebish, [employer]) Interventional Procedures: Genicular Nerve Block (Superior Medial, Inferior Medial, Superior Lateral - Diagnostic only, NO steroids) left leg Functional Yarsani: Physical Therapy Consultation ([facility]) Follow-up: 2 months Depending on response to the above plan, consider: MBB/RFA, Synvisc One Knee; Genicular blocks/RFA Interval History: Overall pain and functional disability since last visit: Better New Complaints since last visit: No She had left knee genicular nerve Radiofrequency Ablation (RFA) in July, reports 80% relief of pain. Particularly, improvement in the left knee area, but still having pain in the left thigh and ankle. She started the Lyrica, but discontinued it and does not recall why. She saw PT on 07/24 and 08/10, she notes that she did not need further treatments. Review of notes shows that further treatment was advised. PAIN DESCRIPTION: Timing: Constant Character: Aching, Dull Primary Location: left knee Radiation: lateral thigh and gomez, occasionally low back Exacerbating factors: Standing, Walking Relieving factors: Sitting, Lying Down Interferes with: walking (uses a walker) Current Pain Medications: Neuropathics: Pamelor 75mg qHS for sleep NSAIDS: Naproxen 500mg BID PRN Muscle Relaxants: Topicals: Other Prescription or OTC Pain Medications: Opioids (when applicable): No question data found. Anti-depressants or Mood-Stabilizers: None Anti-Coagulants: None Therapies Attended (Current or Most Recent): [facility] Physical Therapy 04/17/2023 AG SPINE COMBINATION Questionnaire GREENLIGHT Completed Date 04/17/2023 Questionnaire Opiod Risk Tool Completed Date 04/17/2023 Comments 0 No question data found. (All drug screens are appropriate unless indicated otherwise) Notable Events During Course of Treatment: 04/15/2023 - Initial HPI (Obtained by Jackson Smuner M.D.). DURATION AND ONSET: The pain complaint has been present for approximately 40 years. The pain had a gradual onset. The mechanism of injury is unknown. RED FLAG SYMPTOMS: denies red flags. She saw her spine surgeon, who advised non-op management. She reports she had low back pain and left lower limb radicular symptoms that responded to surgery both times. She developed new onset low back pain and the left lower limb pain one month ago suddenly. She saw Dr. Gomez in 2012, did TFESI at L2-3 x 2, does not recall results. Treatment History: PAIN PROCEDURES: DATE PROCEDURE IMPROVEMENT 08/06/2023 RFA Left Knee (Genic N.) 80% (10/16/2023 ) 05/26/2023 L knee CSI <10 04/30/2023 L TFESI L4-S1 >50% MEDICATIONS Taken TO DATE (for the chief complaint(s)): Neuropathics: Neurontin (Gabapentin), Lyrica (Prebabalin), Pamelor (Nortriptyline), Elavil (Amitriptyline) NSAIDS: Naprosyn (Naproxen), Mobic (Meloxicam) Muscle Relaxants: None Topicals: None Other Prescription or OTC Pain Medications: Aspirin Opioids: Tramadol, Oxycodone (eg Percocet) Data Reviewed Today: Allergies: ALLERGIES Allergen Reactions Sulfa (Sulfonamide * Swelling, Anaphylaxis Tongue/ throat swelled Phenergan Plain Vomiting Vomiting Hydrocodone-Acetami* GI Upset NAUSEA Procardia [Nifedipi* Swelling legs Social History Tobacco Use Smoking status: Never Smokeless tobacco: Never Vaping Use Vaping Use: Never used Substance Use Topics Alcohol use: Yes Alcohol/week: 3.9 standard drinks of alcohol Types: 3 Mixed Drinks per week Comment: 3-4/week Drug use: No 09/17/2023 10/15/2023 INTAKE PAIN ASSESSMENT Are you having pain associated with your visit today? No Yes, Provider notified Pain Level 9 Pain Location Leg-Right (more content not included)...[facility]07-23-2024 Telephone encounter Note* Telephone Encounter - Jackson Sumner MD - 09/30/2023 11:47 AM EDT She has renal insufficiency - subacute, NSAIDs contraindicated. She missed her September appointment to assess her response to RFA. Jackson Sumner III, MD, MBA T [facility]07-23-2024 Telephone encounter Note* Telephone Encounter - Jackson Sumner MD - 09/30/2023 11:47 AM EDT This patient gave consent to this Medical Advise Message and is aware that it may result in a bill to their insurance, as well as the possibility of receiving a bill for a copay and/or deductible. They are an established patient, but are not seeking information exclusively about a problem treated during an in person or video visit within the past seven days. I did not recommend an in person or video visit within seven days of my reply. See the Kriyari message reply for my assessment and plan. Time spent reviewing the patient's prior medical records and current request for medical advice, prescribing medications or ordering tests (if applicable), replying to the patient, and documenting the encounter: 7 minutes. Jackson Sumner III, MD, MBA T [facility]07-23-2024 Miscellaneous Notes* Telephone Encounter - Jackson Sumner MD - 09/30/2023 11:47 AM EDT She has renal insufficiency - subacute, NSAIDs contraindicated. She missed her September appointment to assess her response to RFA. Jackson Sumner III, MD, MBA * Telephone Encounter - Jackson Sumner MD - 09/30/2023 11:47 AM EDT This patient gave consent to this Medical Advise Message and is aware that it may result in a bill to their insurance, as well as the possibility of receiving a bill for a copay and/or deductible. They are an established patient, but are not seeking information exclusively about a problem treated during an in person or video visit within the past seven days. I did not recommend an in person or video visit within seven days of my reply. See the Kriyari message reply for my assessment and plan. Time spent reviewing the patient's prior medical records and current request for medical advice, prescribing medications or ordering tests (if applicable), replying to the patient, and documenting the encounter: 7 minutes. Jackson Sumner III, MD, MBA documented in this encounterCleveland Clinic [facility]07-22-2024 History of Present illness Narrative* Karen Zapata RDMS - 09/29/2023 4:00 PM EDT Radiology Service Progress Note PATIENT NAME: Spenser Putnam DATE OF SERVICE: September 29, 2023 TIME: 4:26 PM PATIENT IDENTITY VERIFICATION COMPLETED USING TWO (2) IDENTIFIERS: Name and Date of confirmedby patient verbally. FALL SCREENING: Has the patient had 2 falls in the last year or 1 fall with injury or currently using an Ambulatory Assistive Device (Walker, Cane, Wheelchair, Crutches, etc.)? Yes, Patient High Riskfor Falls What interventions were put in place to prevent falls during this visit? Offered Assistance with Transfers/Clothing, Instructed Patient to Remain Seated (Not on Exam Table) Until Exam, and Increased Observations by Caregivers PATIENT GENDER DATA: Female. status: : No status: NO. PATIENT RELEVANT IMPLANT DATA REVIEWED: Not Applicable PATIENT PRESENTS WITH AN IMPLANTABLE OR ATTACHED OPERATIONS ANALYST: No RADIOLOGY DEPARTMENT: Ultrasound PERIPHERAL IV DATA: Not applicable SIGNED BY: Karen Zapata RDMS September 29, 2023 4:26 PM documented in this encounterCleveland Clinic [facility]07-10-2024 Instructions* Patient Instructions* Juan Spann MD - 09/17/2023 1:17 PM EDT You need a second shingrix vaccine. Your first on was on 09/14/2020. Consider getting the RSV vaccine and a Tdap (for tetanus update) at a local pharmacy also. On or after 10/18/2023 come get repeat non-fasting labs Please get labs t done on or after 03/05/2024 prior to your next visit. Screening schedule The following prevention plan is recommended: Covid-19 Vaccine( season) due on 04/07/2023 WHAT YOU CAN DO TO PREVENT FALLS Many falls can be prevented. By making some changes, you can lower your chances of falling. Four things YOU can do to prevent falls for you* and your caregiver 1. Begin a regular exercise program Exercise is one of the most important ways to lower your chances of falling. It makes you stronger and helps you feel better. Exercises that improve balance and coordination (like Bautista Chi) are the most helpful. Lack of exercise leads to weakness and increases your chances of falling. Ask your doctor or health care provider about the best type of exercise program for you. 2. Have your health care provider review your medicines Have your doctor or pharmacist review all the medicines you take, even [id number] medicines. As you get older, the way medicines work in your body can change. Some medicines, or combinations of medicines, can make you sleepy or dizzy andcan cause you to fall. 3. Have your vision checked Have your eyes checked by an eye doctor at least once a year. You may be wearing the wrong glasses or have a condition like glaucoma or cataracts that limits your vision. Poor vision can increase your chances of falling. 4. Make your home safer About half of all falls happen at home. To make your home safer: Remove things you can trip over (like papers, books, clothes, and shoes) from stairs and places where you walk. Remove small throw rugs or use double-sided tape to keep the rugs from slipping. Keep items you use often in cabinets you can reach easily without using a step stool. Have grab bars put in next to your toilet and in the tub or shower. Use non-slip mats in the bathtub and on shower floors. Improve the lighting in your home. As you get older, you need brighter lights to see well. Hang light-weight curtains or shades to reduce glare. Have handrails and lights put in on all staircases. Wear shoes both inside and outside the house. Avoid going barefoot or wearing slippers. For more information, contact: Centers for Disease Control and Prevention www.cdc.gov/injury * This information may not apply if you have certain medical conditions. documented in this encounterCleveland Clinic [facility]07-10-2024 History of Present illness Narrative* Juan Spann MD - 09/17/2023 1:00 PM EDT Images from the original note were not included. Spenser Putnam is a 82 year old female here for a Medicare wellness visit. Medicare Health Risk Assessment General Health Good Exercise: Minutes/Day 0 min Exercise: Days/Week 0 days Alcohol: Daily Use 4 or more times a week Alcohol: Drinks/Day 3 or 4 Alcohol: 6 or more drinks Weekly Feel off balance Yes on occasion. Concerns: Teeth/Dentures Yes Concerns: Sexual function No Troubled by feelings Stressed; Irritable Frequency: Eating healthy diet Nearly every day ADLs requiring help Walking; Driving Safety precautions in home/vehicle Yes Smoke, vape, chews tobacco No Difficulty hearing Yes Difficulty seeing No Current Providers Specialists: I have reviewed specialist-related care of the patient in the medical record. Current care team: Patient Care Team: Juan Spann MD as PCP - General (Family Medicine) Dr. Sumner: pain management Dr. Macias : Derm Medical/Family history review Reviewed and updated problem list, medical/surgical/family/social history, medications, and allergies. Opioid use review Opioid Medications (last 90 days) No data to display Anxiety/Depression screening PHQ-2 Score: 0 (Lower risk for depression) Recommendation: no further intervention at this time Cognitive screening Score: Cognitive screening reviewed and No further action needed (score 3-5). Functional Observation Was the patient's Timed Up & Go test unsteady or ? 12 seconds? No Advance Care Planning Surrogate decision maker and/or advance care plan documented Measurements BP 108/62 Pulse 90 Resp 18 Ht 5' 2 (1.58m) Wt 146 lb (66.2kg) SpO2 99% BMI 26.70 kg/(m^2). Vision Screening: Follows with optometry/ophthalmology Assessment/Plan Medicare annual wellness visit, subsequent (Z00.00) - Counseled on healthy diet and regular exercise - Fall avoidance information provided - Personalized prevention plan provided See below Chief Complaint Patient presents with: Medicare Wellness Exam HPI Spenser Putnam is a 82 year old female who presents here today for Chronic Medical Conditions. and Medicare Annual Visit. Patient with hx of HTN, hyperlipidemia, low potassium DJD, and those as below. Patient was in PT for lumbar disc herniation. Patient was also seeing Dr. Sumner for pain management Patient has been doing ok. No new issues or concerns. Her restless legs is not as well controled with the current dose of Requip and wonders if the dose can be increased. Past medical history, appointments, medications, allergies reviewed. 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 Macias, Rt anterior shoulder, Gilberto III, pT1a, pNX, pM N/A Mixed hyperlipidemia 10/13/2014 Multiple thyroid nodules 09/15/2017 CT neck09/2017 7 mm nodule, US multiple small nodules repeat 09/2019 Non morbid obesity 03/29/2016 Osteopenia, senile 07/02/2005 SEE DEXA 07/15 Other chronic dermatitis due to solar radiation 03/27/2006 Other psoriasis 04/16/2013 Other seborrheic keratosis 06/23/2006 Personal history of other malignant neoplasm of skin 03/22/2013 Raynaud's phenomenon without gangrene 06/07/2020 suspected Restless leg syndrome Sensorineural hearing loss, asymmetrical 10/08/2017 Solar lentigo 03/22/2013 Spondylolisthesis at L5-S1 level 10/20/2012 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 09/15/2012 Vertigo 12/03/2021 MRI normal and patient declined further eval as of 12/03/21 Vitamin D deficiency 08/24/2016 Xerosis cutis 03/22/2013 Previous Surgical History PAST SURGICAL HISTORY Procedure Laterality Date ABDOMINAL SURGERY HX BACK SURGERY HX 01/23/2021 lateral lumbar interbody fusion L3-4 CHOLECYSTECTOMY age 52 +/- laparoscopic cholecystectomy COLONOSCOPY 04/29/2013 Dr. Patton, repeat 5 yrs COLONOSCOPY FLX DX W/COLLJ SPEC WHEN PFRMD 07/09/2006 COLONOSCOPY FLX DX W/COLLJ SPEC WHEN PFRMD 04/29/2013 internal hemorrhoids, q5y for FHx COLONOSCOPY, GI 05/02/2000 FHx, repeat q5y DILATION & CURETTAGE DX&/THER NONOBSTETRIC Dilation & curettage EYE SURGERY HX PAST SURGICAL HISTORY OF 12/2011 squamous cell CA rt hand.left LE PAST SURGICAL HISTORY OF 04/2012 rt CTR-- endoscopic PAST SURGICAL HISTORY OF 2012 lumbar surgery- fusion PAST SURGICAL HISTORY OF 2014 excision melanoma right shoulder PAST SURGICAL HISTORY OF Right 2017 bunionectoy TONSILLECTOMY HX TONSILLECTOMY PRIMARY/SECONDARY <AGE 12 childhood Tonsillectomy Family History FAMILY HISTORY Problem Relation Age of Onset Colon Cancer Mother ~70 Hypertension Mother Thyroid Mother Colon Cancer Father ~70 Hypertension Father Stroke Father Heart Father Hx of CHF Coronary Artery Disease Maternal Grandmother Hx of HI Diabetes Daughter Type I Patient Allergies ALLERGIES Allergen Reactions Sulfa (Sulfonamide * Swelling, Anaphylaxis Tongue/ throat swelled Phenergan Plain Vomiting Vomiting Hydrocodone-Acetami* GI Upset NAUSEA Procardia [Nifedipi* Swelling legs Current Medications Current Outpatient Medications on File Prior to Visit Medication Sig spironolactone (ALDACTONE) 50 mg tablet Take 1 tablet by mouth once daily. nortriptyline (PAMELOR) 75 mg capsule Take 1 capsule by mouth daily at bedtime. colchicine 0.6 mg tablet Take one tab by mouth 3 times a day till pain stops or script finished. rOPINIRole (REQUIP) 3 mg tablet Take 1 tablet by mouth daily at bedtime. lisinopril (ZESTRIL) 20 mg tablet Take 1 tablet by mouth once daily. pravastatin (PRAVACHOL) 20 mg tablet Take 1 tablet by mouth daily at bedtime. potassium chloride 20 mEq TbER Take 1 tablet by mouth two times a day. ammonium lactate (LAC-HYDRIN) 12 % cream Apply to affected area as needed. aspirin, enteric coated (ADULT LOW DOSE ASPIRIN) 81 mg EC tablet Take 1 tablet by mouth once daily. calcium carbonate(CALTRATE 600 600 MG (1,500 MG) TAB) DAILY MULTIVITAMIN TAB Take by mouth. No current facility-administered medications on file prior to visit. Social History Social History Tobacco Use Smoking status: Never Smokeless tobacco: Never Vaping Use Vaping Use: Never used Substance Use Topics Alcohol use: Yes Alcohol/week: 3.9 standard drinks of alcohol Types: 3 Mixed Drinks per week Comment: 3-4/week Drug use: No Review of Symptoms REVIEW OF SYSTEMS GENERAL: No unintentional weight loss, malaise or fevers HEENT: Negative for frequent or significant headaches, No changes in vision, no nose bleeds or other nasal problems. Some decreased hearing. NECK: Negative for lumps, goiter, pain and significant neck swelling RESPIRATORY: Negative for cough, hemoptysis, wheezing, COPD, dyspnea or shortness of breath CARDIOVASCULAR: Negative for chest pain, increased leg swelling, hypertension, CHF or palpitations GI: No nausea, vomiting, or diarrhea, No heartburn or reflux symptoms, and no blood : No history of dysuria, frequency or incontinence MUSCULOSKELETAL: Negative for joint pain or swelling, back pain or muscle pain SKIN: sees derm PSYCH: Negative for sleep disturbance, mood disorder and recent psychosocial stressors HEMATOLOGY/LYMPHOLOGY: Negative for prolonged bleeding, bruising easily or swollen nodes ENDOCRINE: Negative for cold or heat intolerance, polyuria, polydipsia and goiter NEURO: No history of headaches, syncope, paralysis, seizures or tremors. When sitting gets needle sensations in her thigh and ankle on the left. She has noticed some decreased strength in the left LE. EXAM: BP 108/62 (BP Site: Left Arm, BP Position: Sitting, BP Cuff Size: Regular Adult) Pulse 90 Resp 18 Ht 157.5 cm (5' 2) Wt 66.2 kg (146 lb) SpO2 99% BMI 26.70 kg/m Last 4 Encounter Wt Readings: Date: Wt: 09/17/2023 66.2 kg (146 lb) 06/17/2023 68 kg (150 lb) 03/13/2023 70.3 kg (155 lb) 02/25/2023 71.3 kg (157 lb 3.2 oz) General Appearance: Well appearing, alert, in no acute distress, well-hydrated, well nourished. andOverweight. Skin: Skin color, texture, turgor normal, no suspicious rashes or lesions. Head: Normocephalic, no masses, lesions, tenderness or abnormalities. Eyes: Anicteric sclera. Pupils are equally round and reactive to light. Extraocular movements are intact. . Ears: External ears, TM's normal, canals clear. Nose/Sinuses: Nares normal, septum midline, mucosa normal, no drainage or sinus tenderness. Oropharynx: Lips, mucosa, and tongue normal, teeth and gums normal, oropharynx normal. Neck: Supple, no adenopathy; thyroid symmetric, normal size, no bruits. Lungs: Lungs clear to auscultation. No wheezing, rhonchi, rales.. Heart: RRR without murmur, gallop, or rubs. No ectopy. Abdomen: Normal abdominal exam, Abdomen soft, non-tender. Bowel sounds normal. No masses, organomegaly. Extremities: No deformities, edema, skin discoloration, clubbing or cyanosis. Good capillary refill. . Musculoskeletal: Muscular strength intact, No joint swelling, deformity, or tenderness. Peripheral Pulses: Normal. Neurologic: Gait normal. Reflexes normal and symmetric. Sensation gto light touch and crainal nerves 2-12 intact.. Health Maintenance List RSV Vaccine(1 - 1-dose 60+ series) Never done DTaP,Tdap,Td Vaccine(2 - Tdap) due on 09/16/2009 Shingrix Vaccine(3 of 3) due on 11/09/2020 Covid-19 Vaccine(2022- season) due on 04/07/2023 Influenza Vaccine(1) due on 11/09/2023 Diabetes Screening due on 09/14/2026 Bone Density Screening Completed Behavioral Health Screening Completed Pneumococcal Vaccine: 65+ Completed HPV Vaccine Aged Out Colorectal Cancer Screening Discontinued Advance Directive Discussion Discontinued Data reviewed Latest Ref Rng 04/19/2022 09/15/2023 WBC 3.70 - 11.00 k/uL 8.57 6.99 RBC 3.90 - 5.20 m/uL 3.85 (L) 3.59 (L) Hemoglobin 11.5 - 15.5 g/dL 12.0 10.9 (L) Hematocrit 36.0 - 46.0 % 37.3 33.3 (L) MCV 80.0 - 100.0 fL 96.9 92.8 MCH 26.0 - 34.0 pg 31.2 30.4 MCHC 30.5 - 36.0 g/dL 32.2 32.7 RDW-CV 11.5 - 15.0 % 12.8 13.5 Platelet Count 150 - 400 k/uL 216 242 MPV 9.0 - 12.7 fL 9.5 9.5 Neut% % 62.7 58.3 Abs Neut (ANC) 1.45 - 7.50 k/uL 5.38 4.07 Lymph% % 25.6 31.0 Abs Lymph 1.00 - 4.00 k/uL 2.19 2.17 Brooks% % 9.2 8.9 Abs Brooks <0.87 k/uL 0.79 0.62 Eosin% % 1.6 1.0 Abs Eosin <0.46 k/uL 0.14 0.07 Baso% % 0.4 0.4 Abs Baso <0.11 k/uL 0.03 0.03 Immature Gran % % 0.5 0.4 IMMATURE GRANS (ABS) <0.10 k/uL 0.04 0.03 NRBC /100 WBC 0.0 0.0 Absolute nRBC <0.01 k/uL <0.01 <0.01 DTYPE Auto Auto Protein, Total 6.3 - 8.0 g/dL 7.8 6.6 Albumin 3.9 - 4.9 g/dL 4.0 3.8 (L) Calcium 8.5 - 10.2 mg/dL 9.5 9.4 Bilirubin, Total 0.2 - 1.3 mg/dL 0.3 0.3 Alkaline Phosphatase 34 - 123 U/L 73 219 (H) AST 13 - 35 U/L 24 67 (H) ALT 7 - 38 U/L 12 68 (H) Glucose 74 - 99 mg/dL 104 (H) 99 BUN 7 - 21 mg/dL 13 18 Creatinine 0.58 - 0.96 mg/dL 0.84 1.16 (H) Sodium 136 - 144 mmol/L 132 (L) 130 (L) Potassium 3.7 - 5.1 mmol/L 4.5 5.1 Chloride 98 - 107 mmol/L 98 100 CO2 22 - 30 mmol/L 22 21 (L) Anion Gap 8 - 15 mmol/L 12 9 eGFR >=60 mL/min/1.73m 70 47 (L) Total Cholesterol, Nonfasting <200 mg/dL 175 146 Triglycerides, Nonfasting <150 mg/dL 175 (H) 60 HDL Cholesterol, Nonfasting >39 mg/dL 82 80 LDL Cholesterol, Nonfasting <100 mg/dL 58 54 Non HDL Cholesterol, Nonfasting <130 mg/dL 93 66 VLDL Cholesterol, Nonfasting <30 mg/dL 35 (H) 12 Total Chol/HDL Ratio, Nonfasting <5.10 mg/dL 2.13 1.83 LDL/HDL Ratio, Nonfasting <2.54 mg/dL 0.71 0.68 TSH 0.270 - 4.200 mIU/L 4.400 (H) 1.770 Vitamin D 25 Hydroxy 31.0 - 80.0 ng/mL 36.3 Legend: (L) Low (H) High A/P ASSESSMENT/PLAN: 1. Medicare annual wellness visit, subsequent - ICD9: V70.0, ICD10: Z00.00 (primary diagnosis) - Counseled on healthy diet and regular exercise - Discussed need and benefit for weight loss. BMI 26.70 kg/(m^2) - Patient was counseled [id number] by myself (the billing provider) for the following immunizations and vaccine components, including side effects: Pneumococcal . Patient consents for immunization and understands risks and benefits. A VIS sheet on each immunization was given to the patient. - Follow up for annual exam in one year - advised on Shingrix, RSV and Tdap vaccines. 2. Essential hypertension with goal blood pressure less than 140/90 - ICD9: 401.9, ICD10: I10 - Controlled - Continue current medications - Recommend home blood pressure monitoring, to bring results to next visit - Encouraged sodium restriction, DASH or Mediterranean diet - Recommend regular aerobic exercise 3. Mixed hyperlipidemia - ICD9: 272.2, ICD10: E78.2 - Controlled - Counseled on healthy diet and regular exercise - Discussed need for and benefit of weight loss. BMI 26.70 kg/(m^2) 4. Bilateral leg edema - ICD9: 782.3, ICD10: R60.0 - stable and mainly just at the ankles. 5. Multiple thyroid nodules - ICD9: 241.1, ICD10: E04.2 - check US 6. Insomnia, unspecified type - ICD9: 780.52, ICD10: G47.00 - stable with Tx. No changes. 7. Restless leg syndrome - ICD9: 333.94, ICD10: G25.81 Will increase - ROPINIROLE to 4 MG TABLET QHS. 8. Malignant melanoma of right shoulder (HCC) - ICD9: 172.6, ICD10: C43.61 - follows with Derm for routine skin checks. 9. Non morbid obesity - ICD9: 278.00, ICD10: E66.9 Weight decreasing - Behavioral intervention 10. Advance directive discussed with patient - ICD9: V65.49, ICD10: Z71.89 - up to date 11. Osteopenia, senile - ICD9: 733.90, ICD10: M85.80 - Reviewed the need for Calcium and Vitamin D supplements and weight bearing exercise as tolerated - check DXA 12. Spinal stenosis of lumbar region, unspecified whether neurogenic claudication present - ICD9: 724.02, ICD10: M48.061 - seeing pain management 13. Hypokalemia - ICD9: 276.8, ICD10: E87.6 - will recent lab showing potassium at 5.1 will have her cut her potassium back to just one a day. - POTASSIUM CHLORIDE ER 20 MEQ TABLET,EXTENDED RELEASE 14. Hyponatremia - ICD9: 276.1, ICD10: E87.1 In a month check - BASIC METABOLIC PANEL - patient to cut back on fluids a day. 15. Elevated alkaline phosphatase level - ICD9: 790.5, ICD10: R74.8 In a month check - ALK PHOS ISOENZYM BL 16. Elevated LFTs - ICD9: 790.6, ICD10: R79.89 Marilynn month check - HEPATIC FUNCTION PNL - HEP ACUTE PANEL/RNA - patient advised to cut her alcohol back to no more then one a day. 17. Encounter for immunization - ICD9: V03.89, ICD10: Z23 - PNEUMOCOCCAL VACCINE, 20 VALENT (PREVNAR 20): given 18. Anemia, unspecified type - ICD9: 285.9, ICD10: D64.9 In a month check - VITAMIN B12 - IRON AND TIBC - COMPLETE BLOOD COUNT AND DIFFERENTIAL - FOLATE, SERUM - FERRITIN 19. 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 lisinopril (ZESTRIL) 20 mg tablet 90 tablet 1 Sig: Take 1 tablet by mouth once daily. potassium chloride 20 mEq TbER Sig: Take 1 tablet by mouth once daily. rOPINIRole (REQUIP) 4 mg tablet 90 tablet 1 Sig: Take 1 tablet by mouth daily at bedtime. F/u 6 months routine check CBC, Lipids, LFT's prior I spent a total of 45 minutes on the date of the service which included preparing to see the patient, [id number] patient care, completing clinical documentation, performing a medically appropriate examination, counseling and educating the patient/family/caregiver and ordering medications, tests, or procedures. Juan Spann MD Behavioral Health Screening PHQ-2 Score: 0 (Lower risk for depression) Recommendation: no further intervention at this time documented in [facility] encounterC[facility] Telephone encounter Note * Telephone Encounter - Belinda DouglasSERENITYAlex - 08/18/2023 9:01 AM EDT Prescription Refill Information The patient has been identified by name and date of : Yes Caregiver verified no other encounters exist for this prescription request: Yes Caregiver confirmed with patient/requestor that no other refills are due, in the near future, with this provider at this time: Yes The last office visit in the department: 06/17/23 Does the patient have a future office visit with this provider/department: Yes, 09/17/23 Requested Prescriptions Pending Prescriptions Disp Refills spironolactone (ALDACTONE) 50 mg tablet 30 tablet 5 Sig: Take 1 tablet by mouth once daily. BRIAN Burnett August 18, 2023 9:03 AM [facility]06-[facility] Miscellaneous Notes* Telephone Encounter - Belinda Douglas OCCA - 08/18/2023 9:01 AM EDT Prescription Refill Information The patient has been identified by name and date of : Yes Caregiver verified no other encounters exist for this prescription request: Yes Caregiver confirmed with patient/requestor that no other refills are due, in the near future, with this provider at this time: Yes The last office visit in the department: 06/17/23 Does the patient have a future office visit with this provider/department: Yes, 09/17/23 Requested Prescriptions Pending Prescriptions Disp Refills spironolactone (ALDACTONE) 50 mg tablet 30 tablet 5 Sig: Take 1 tablet by mouth once daily. BRIAN Burnett August 18, 2023 9:03 AM documented in this encounterC[facility] History of Present illness Narrative* London Frye, PT - 08/11/2023 1:47 PM EDT Episode Visit Count: 2 Therapist That Will Accept/Oversee The Plan Of Care: London Frye PT Start of Care Date: 07/25/23 Onset Date: 07/11/23 (for the nerve symptoms) Plan of Care Certification Date: 07/25/23 Next Certification Due Date: 08/29/23 Patient Identified by Name and Date of : Yes [facility] PHYSICAL THERAPY TREATMENT NOTE ASSESSMENT: Spenser Putnam tolerated the session with expected muscle soreness and no issues. She demonstrated good form with all therapeutic exercises. The patient will continue to benefit from ongoing skilled physical therapy to progress toward set goals. PLAN FOR NEXT VISIT: D/C SUBJECTIVE: Pt states she feels about 60-70% improvement overall so far. Did have an ablasion last . Pain: Pain Pain Level: (Not rated) Pain Location: Low Back/Lumbar Spine - Left OBJECTIVE MEASURES WITH LEVEL OF FUNCTION: TREATMENT: Therapeutic Exercise: 1: PPT 2 x 10 2: SKTC 2 x 10 3: DKTC 2 x 10 4: Seated Lumbar flexion x 10 Skilled Intervention: Patient was educated in proper exercise technique and purpose for exercises. Provided written instruction for home exercise program to facilitate proper performance and compliance. Correct performance of therapeutic exercises was facilitated with verbal and visual cuing. Billing Therapeutic Exercise Treatment Minutes: 23 Skilled Treatment Time Minutes (timed and untimed codes): 23 Total Session Time (minutes): 23 Session Start Time : 1345 Session Stop Time : 1408 London Frye PT documented in this encounterC[facility]-29-[facility] Nurse Note* Fawad Leong LPN - 08/06/2023 2:49 PM EDT Order has been placed in the patient's chart with the following parameters for discharge from the physician: Patient is alert and oriented Vitals: Diastolic/Systolic +/- 20mmHg Respirations: 12-18 Pulse: 60-100 SpO2 is greater than or equal to 90% Patient has no nausea or vomiting Patient has no dizziness Pain level is +/- 2 from initial evaluation Dressing, dry and intact with no evidence of bleeding Criteria has been met, patient is okay to be discharged per the physician. Physician has gone in and evaluated the patient. Dressing dry and intact. No drainage noted. The patient denies nausea, numbness, tingling, weakness, shortness of breath, dizziness, or headache. Pain level 0/10. Vital signs within normal limits. Patient denied needing walked out by clinical staff and denied needing a wheelchair. Patient given discharge instructions and sent to transportation via ambulatory method. Patient left in good condition. [facility] Nurse Note* Fawad Leong LPN - 08/06/2023 2:49 PM EDT Order has been placed in the patient's chart with the following parameters for discharge from the physician: Patient is alert and oriented Vitals: Diastolic/Systolic +/- 20mmHg Respirations: 12-18 Pulse: 60-100 SpO2 is greater than or equal to 90% Patient has no nausea or vomiting Patient has no dizziness Pain level is +/- 2 from initial evaluation Dressing, dry and intact with no evidence of bleeding Criteria has been met, patient is okay to be discharged per the physician. Physician has gone in and evaluated the patient. Dressing dry and intact. No drainage noted. The patient denies nausea, numbness, tingling, weakness, shortness of breath, dizziness, or headache. Pain level 0/10. Vital signs within normal limits. Patient denied needing walked out by clinical staff and denied needing a wheelchair. Patient given discharge instructions and sent to transportation via ambulatory method. Patient left in good condition. * Meg Chaudhary LPN - 08/06/2023 2:29 PM EDT Procedure to be performed: LEFT GENICULAR RADIOFREQUENCY ABLATION Patient was wheeled on stretcher from pre op bay to procedure room and assisted onto the procedure tablePatient s procedure was performed in an [facility] Procedure room. Pause completed at each level by provider to verify correct level and laterality placement Pressure was applied to patient s injection site(s) and bleeding was minimal. Patient had no complaint of shortness of breath, dizziness, headache, numbness, tingling, weakness or complications from procedure. Patient was assisted from the procedure table onto the stretcher and wheeled into a post op bay. Patient was advised a clinician will be to obtain another set of vitals. Time Out: 1430 Confirmed patient name, date of , procedure site, laterality, and allergies Procedure Start: 1433 Procedure End: 144 * Ashutosh Vance LPN - 08/06/2023 2:04 PM EDT Super[employer]'s Name: LARRY Are you on a blood thinner: NO If yes, is a hold required: NO Last dose of blood thinner: NO INR Result today: NO Do you require a Lovenox bridge:NO Are you a diabetic:NO Are you/or could you be : NO Are you taking Xanax for the procedure: NO Are you currently on a steroid? NO Are you currently on an antibiotic: NO Have you had a COVID-19 vaccine in the last 14 days Or are you scheduled to receive one? NO documented in this encounterC[facility]-29-[facility] History of Present illness Narrative* Jackson Sumner MD - 08/06/2023 2:30 PM EDT [facility] Date: 08/06/2023 Patient name: Spenser Putnam Physician performing procedure: Jackson Sumner M.D., M.B.A. Diagnosis: (M17.0) Primary osteoarthritis of both knees (primary encounter diagnosis) Procedure: Radiofrequency Ablation (Thermal RFA) - Genicular Nerves (Superior lateral, Superior medial and Inferior medial) under fluoroscopic guidance LEFT-SIDED Injectate: A total of 3 ml volume was injected The injectate consisted of: 1 ml of Depo-Medrol (40mg/ml), The remainder consisting of 0.75% Bupivacaine, . Each site received equal volumes of this injectate. Comments: None Improvement after today's procedure: as per nursing report HPI: Spenser Putnam is an 82 year old FEMALE who presents today, in pain, for the procedure noted above. Review of Systems: Pertinent Positives: MSK: pain in the region being treated Neuro: weakness or numbness in the region being treated (unless otherwise noted) Skin: Negative (No itching) Eyes: Negative (No blurred or double vision) Respiratory: Negative (No Cough, [id number], Dyspnea on exertion, wheezing) Cardiovascular: Negative (No Chest Pain, Tightness, Pressure, Palpitations) Gastrointestinal: Negative (No Abdominal pain, Nausea, Vomiting, Constipation, Diarrhea) Genitourinary: Negative (No dysuria) Hematologic: Negative (No bleeding, bruising) OB: is Denied or Not Applicable Endocrine: Negative (No hot/cold intolerance) Psychiatric: Negative (No depression, anxiety or suicidal ideation) 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 Arthrodesis status 2012 Bilateral leg edema 07/02/2005 Carpal tunnel syndrome, left 08/17/2020 NCS 08/2020: mild 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 Macias, Rt anterior shoulder, Gilberto III, pT1a, pNX, pM N/A Mixed hyperlipidemia 10/13/2014 Multiple thyroid nodules 09/15/2017 CT neck09/2017 7 mm nodule, US 7.2019 multiple small nodules repeat 09/2019 Non morbid obesity 03/29/2016 Osteopenia, senile 07/02/2005 SEE DEXA 07/15 Other chronic dermatitis due to solar radiation 03/27/2006 Other psoriasis 04/16/2013 Other seborrheic keratosis 06/23/2006 Personal history of other malignant neoplasm of skin 03/22/2013 Raynaud's phenomenon without gangrene 06/07/2020 suspected Restless leg syndrome Sensorineural hearing loss, asymmetrical 10/08/2017 Solar lentigo 03/22/2013 Spondylolisthesis at L5-S1 level 10/20/2012 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 09/15/2012 Vertigo 12/03/2021 MRI normal and patient declined further eval as of 12/03/21 Vitamin D deficiency 08/24/2016 Xerosis cutis 03/22/2013 PAST SURGICAL HISTORY Procedure Laterality Date ABDOMINAL SURGERY HX BACK SURGERY HX 01/23/2021 lateral lumbar interbody fusion L3-4 CHOLECYSTECTOMY age 52 +/- laparoscopic cholecystectomy COLONOSCOPY 04/29/2013 Dr. Patton, repeat 5 yrs COLONOSCOPY FLX DX W/COLLJ SPEC WHEN PFRMD 07/09/2006 COLONOSCOPY FLX DX W/COLLJ SPEC WHEN PFRMD 04/29/2013 internal hemorrhoids, q5y for FHx COLONOSCOPY, GI 05/02/2000 FHx, repeat q5y DILATION & CURETTAGE DX&/THER NONOBSTETRIC Dilation & curettage EYE SURGERY HX PAST SURGICAL HISTORY OF 12/2011 squamous cell CA rt hand.left LE PAST SURGICAL HISTORY OF 04/2012 rt CTR-- endoscopic PAST SURGICAL HISTORY OF 2012 lumbar surgery- fusion PAST SURGICAL HISTORY OF 2014 excision melanoma right shoulder PAST SURGICAL HISTORY OF Right 2017 bunionectoy TONSILLECTOMY HX TONSILLECTOMY PRIMARY/SECONDARY <AGE 12 childhood Tonsillectomy FAMILY HISTORY Problem Relation Age of Onset Colon Cancer Mother ~70 Hypertension Mother Thyroid Mother Colon Cancer Father ~70 Hypertension Father Stroke Father Heart Father Hx of CHF Coronary Artery Disease Maternal Grandmother Hx of HI Diabetes Daughter Type I Social History Tobacco Use Smoking status: Never Smokeless tobacco: Never Vaping Use Vaping Use: Never used Substance Use Topics Alcohol use: Yes Alcohol/week: 3.9 standard drinks of alcohol Types: 3 Mixed Drinks per week Comment: 3-4/week Drug use: No Current Outpatient Medications on File Prior to Visit Medication Sig nortriptyline (PAMELOR) 75 mg capsule Take 1 capsule by mouth daily at bedtime. colchicine 0.6 mg tablet Take one tab by mouth 3 times a day till pain stops or script finished. rOPINIRole (REQUIP) 3 mg tablet Take 1 tablet by mouth daily at bedtime. lisinopril (ZESTRIL) 20 mg tablet Take 1 tablet by mouth once daily. pravastatin (PRAVACHOL) 20 mg tablet Take 1 tablet by mouth daily at bedtime. potassium chloride 20 mEq TbER Take 1 tablet by mouth two times a day. spironolactone (ALDACTONE) 50 mg tablet Take 1 tablet by mouth once daily. ammonium lactate (LAC-HYDRIN) 12 % cream Apply to affected area as needed. aspirin, enteric coated (ADULT LOW DOSE ASPIRIN) 81 mg EC tablet Take 1 tablet by mouth once daily. calcium carbonate(CALTRATE 600 600 MG (1,500 MG) TAB) DAILY MULTIVITAMIN TAB Take by mouth. No current facility-administered medications on file prior to visit. Objective Exam: Vitals: As per nursing documentation Constitutional: Normal Appearance, Oriented to Time, Place and Person Head: No lacerations, no external signs of trauma Eyes: Conjunctiva clear. No discharge from the eyes Cardiovascular: Appears well-perfused Pulmonary: Non-labored respirations Abdominal: Non-distended Skin: No visible rashes or ecchymosis Psychiatric: Mood appropriate for given condition Neurological: Gross movements are limited by pain, but otherwise unremarkable Data Reviewed: Nursing note and vitals reviewed. Additional imaging reviewed as appropriate Assessment and Plan: As noted above [place] protocol documentation / Pre-Procedure Checklist: Consent: Obtained in writing prior to procedure I had a nice discussion with the patient today about their current pain and the pathology that could be causing it We discussed different treatment options, including risks, benefits and alternatives. We agreed to proceed as previously discussed, or the plan was modified in accordance with the comments noted above Unless stated otherwise in the procedure note, the risks include but are not limited to infection, allergic reaction, increased pain, lack of therapeutic benefit, steroid reaction, nerve damage, paralysis, stroke, epidural hematoma, syncope, headache, respiratory or cardiac arrest, pneumothorax, and scar formation Once the plan was agreed upon, the patient gave written consent to proceed and was transported intothe procedure room Surgical/Procedure pause or Time Out : Time Out was led by the physician in the procedure room, with the patient and all staff present andparticipating The following information was verified during the Time Out process: Patient name, patient date of , procedure site (marked), laterality, anticoagulants and allergies Procedure: The patient was prepped and draped in a sterile fashion after being placed in the supineposition with the knee of interest flexed to 30 degrees, supported beneath by a pillow, after informed consent was signed and all patient questions were answered including the risks, benefits, alternative treatment options, and prognosis. The risks are as mentioned above, except for pneumothorax. After preliminary films were obtained and after skin preparation, a 25 gauge needle was used to anesthetize the skin with 3-5 cc of 1% Lidocaine. The outer cannula of a 20-gauge RFA needle was inserted in a superior direction with fluoroscopic guidance to contact the bone at the junction of the respective bony structure (medial or lateral femoral condyle and femoral shaft, medial tibial flare andtibial shaft). Needle position was then confirmed in multiple views. Motor test stimulation was done to ensure that there was no inadvertent peripheral nerve stimulation. The soft tissues were then infiltrated with 1-2 ccs. of buffered 1% Lidocaine without Epinephrine. Subsequently, a percutaneous neurotomy was carried out on pulsed mode for 90 seconds at 55 degrees Celsius, followed by two additional times in thermal or lesion mode for 180 seconds at 70 degrees Celsius. Appropriate radiographs were obtained to verify the probe placement during the neurotomy. After ablation and prior to needle removal, the medication noted above was then injected at each site. The needle was then removed from each site. Appropriate radiographs were obtained with results as described above. Please see the nursing note for exact times (time out, procedure start, procedure end). After careful removal of the needle, there was minimal bleeding. The injection site was covered with appropriate sterile dressing. The patient was noted to have tolerated the procedure well and was discharged after an appropriate period of post-procedure observation. The patient was instructed to contact us if there were any complications. The patient was advised to follow-up with the requesting physician within one to two weeks or as per their requested follow-up plan. Post procedure visit summary with written instructions was offered to the patient. [facility] * Ashutosh Vance LPN - 08/06/2023 2:08 PM EDT Review of Systems Constitutional: Positive for activity change. Negative for chills, fever and unexpected weight change. Gastrointestinal: Negative for bowel retention or incontinence Genitourinary: Negative for difficulty urinating. Negative for bladder retention or incontinence Musculoskeletal: Positive for arthralgias, back pain, joint swelling and myalgias. Negative for gait problem, neck pain and neck stiffness. Neurological: Negative for weakness, numbness and headaches. Psychiatric/Behavioral: Negative for dysphoric mood, sleep disturbance and suicidal ideas. The patient is not nervous/anxious. documented in this encounterC[facility] NoteHNO ID: [id number] Author: JACKSON SUMNER MD Service: ? Author Type: Physician Type: Progress Notes Filed: 08/06/2023 15:05 Note Text: [facility] Date: 08/06/2023 Patient name: Spenser Putnam Physician performing procedure: Jackson Sumner M.D., M.B.A. Diagnosis: (M17.0) Primary osteoarthritis of both knees (primary encounter diagnosis) Procedure: Radiofrequency Ablation (Thermal RFA) - Genicular Nerves (Superior lateral, Superior medial and Inferior medial) under fluoroscopic guidance LEFT-SIDED Injectate: A total of 3 ml volume was injected The injectate consisted of: 1 ml of Depo-Medrol (40mg/ml), The remainder consisting of 0.75% Bupivacaine, . Each site received equal volumes of this injectate. Comments: None Improvement after today's procedure: as per nursing report HPI: Spenser Putnam is an 82 year old FEMALE who presents today, in pain, for the procedure noted above. Review of Systems: Pertinent Positives: MSK: pain in the region being treated Neuro: weakness or numbness in the region being treated (unless otherwise noted) Skin: Negative (No itching) Eyes: Negative (No blurred or double vision) Respiratory: Negative (No Cough, [id number]-[id number], Dyspnea on exertion, wheezing) Cardiovascular: Negative (No Chest Pain, Tightness, Pressure, Palpitations) Gastrointestinal: Negative (No Abdominal pain, Nausea, Vomiting, Constipation, Diarrhea) Genitourinary: Negative (No dysuria) Hematologic: Negative (No bleeding, bruising) OB: is Denied or Not Applicable Endocrine: Negative (No hot/cold intolerance) Psychiatric: Negative (No depression, anxiety or suicidal ideation) 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 Arthrodesis status 2012 Bilateral leg edema 07/02/2005 Carpal tunnel syndrome, left 08/17/2020 NCS 08/2020: mild 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 Macias, Rt anterior shoulder, Gilberto III, pT1a, pNX, pM N/A Mixed hyperlipidemia 10/13/2014 Multiple thyroid nodules 09/15/2017 CT neck09/2017 7 mm nodule, US 7.2018 multiple small nodules repeat 09/2019 Non morbid obesity 03/29/2016 Osteopenia, senile 07/02/2005 SEE DEXA 07/15 Other chronic dermatitis due to solar radiation 03/27/2006 Other psoriasis 04/16/2013 Other seborrheic keratosis 06/23/2006 Personal history of other malignant neoplasm of skin 03/22/2013 Raynaud's phenomenon without gangrene 06/07/2020 suspected Restless leg syndrome Sensorineural hearing loss, asymmetrical 10/08/2017 Solar lentigo 03/22/2013 Spondylolisthesis at L5-S1 level 10/20/2012 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 09/15/2012 Vertigo 12/03/2021 MRI normal and patient declined further eval as of 12/03/21 Vitamin D deficiency 08/24/2016 Xerosis cutis 03/22/2013 PAST SURGICAL HISTORY Procedure Laterality Date ABDOMINAL SURGERY HX BACK SURGERY HX 01/23/2021 lateral lumbar interbody fusion L3-4 CHOLECYSTECTOMY age 52 +/- laparoscopic cholecystectomy COLONOSCOPY 04/29/2013 Dr. Patton, repeat 5 yrs COLONOSCOPY FLX DX W/COLLJ SPEC WHEN PFRMD 07/09/2006 COLONOSCOPY FLX DX W/COLLJ SPEC WHEN PFRMD 04/29/2013 internal hemorrhoids, q5y for FHx COLONOSCOPY, GI 05/02/2000 FHx, repeat q5y DILATION AND CURETTAGE DXAND/THER NONOBSTETRIC Dilation AND curettage EYE SURGERY HX PAST SURGICAL HISTORY OF 12/2011 squamous cell CA rt hand.left LE PAST SURGICAL HISTORY OF 04/2012 rt CTR-- endoscopic PAST SURGICAL HISTORY OF 2012 lumbar surgery- fusion PAST SURGICAL HISTORY OF 2013 excision melanoma right shoulder PAST SURGICAL HISTORY OF Right 2017 bunionectoy TONSILLECTOMY HX TONSILLECTOMY PRIMARY/SECONDARY Tonsillectomy FAMILY HISTORY Problem Relation Age of Onset Colon Cancer Mother ~70 Hypertension Mother Thyroid Mother Colon Cancer Father ~70 Hypertension Father Stroke Father Heart Father Hx of CHF Coronary Artery Disease Maternal Grandmother Hx of HI Diabetes Daughter Type I Social History Tobacco Use Smoking status: Never Smokeless tobacco: Never Vaping Use Vaping Use: Never used Substance Use Topics Alcohol use: Yes Alcohol/week: 3.9 standard drinks of alcohol Types: 3 Mixed Drinks per week Comment: 3-4/week Drug use: No Current Outpatient Medications on File Prior to Visit Medication Sig nortriptyline (PAMELOR) 75 mg capsule Ta (more content not included)...[facility]05-29-2024 Nurse Note* Meg Chaudhary LPN - 08/06/2023 2:29 PM EDT Procedure to be performed: LEFT GENICULAR RADIOFREQUENCY ABLATION Patient was wheeled on stretcher from pre op bay to procedure room and assisted onto the procedure tablePatient s procedure was performed in an [facility] Procedure room. Pause completed at each level by provider to verify correct level and laterality placement Pressure was applied to patient s injection site(s) and bleeding was minimal. Patient had no complaint of shortness of breath, dizziness, headache, numbness, tingling, weakness or complications from procedure. Patient was assisted from the procedure table onto the stretcher and wheeled into a post op bay. Patient was advised a clinician will be to obtain another set of vitals. Time Out: 143 Confirmed patient name, date of , procedure site, laterality, and allergies Procedure Start: 1433 Procedure End: 1446 [facility]05-29-2024 Instructions* Patient Instructions* Fawad Leong LPN - 08/06/2023 2:20 PM EDT PROCEDURE DISCHARGE INSTRUCTIONS 08/06/2023 Spenser Pickens Jersye 1940 Physician: Jackson Sumner MD Procedure: Facet Joint Branch Radiofrequency Denervation Post Procedure Instructions: If sedation not given, no driving for 3 hours after the procedure., If sedation given, no driving the day of the procedure., Rest the day of the procedure., You may resume normal activities the day after the procedure, as tolerated., Avoid movements that may aggravate pain., Apply cold compresses to injection site if needed., No hot baths, hot tubs or hot compresses for 24 hours., Increased pain the day after the procedure may occur., and Your pain should subside in the next 4-6 weeks. If you have any of the following signs or symptoms, please call our office at Fever and/or chills Swelling and/or drainage from injection site New pain that is different than your normal pain (other than soreness at the site of the procedure) Stiff neck Shortness of breath Severe increase in pain Motor dysfunctions, such as difficulty walking, bowel or bladder dysfunction and/or incontinence Headache that is severe, light sensitive or develops when changing positions (positional headache) Nausea and/or vomiting accompanied by headache that started 24-48 hours after the procedure If you have any emergent concerns, please call 911 or go to your local emergency room. Please also contact our office to let us know you will be seeking emergency care and why. documented in this encounterC[facility] NoteHNO ID: [id number] Author: AHSUTOSH VANCE LPN Service: ? Author Type: LICENSED NURSE Type: Progress Notes Filed: 08/06/2023 15:05 Note Text: Review of Systems Constitutional: Positive for activity change. Negative for chills, fever and unexpected weight change. Gastrointestinal: Negative for bowel retention or incontinence Genitourinary: Negative for difficulty urinating. Negative for bladder retention or incontinence Musculoskeletal: Positive for arthralgias, back pain, joint swelling and myalgias. Negative for gait problem, neck pain and neck stiffness. Neurological: Negative for weakness, numbness and headaches. Psychiatric/Behavioral: Negative for dysphoric mood, sleep disturbance and suicidal ideas. The patient is not nervous/anxious.[facility] 08-06-2023 Nurse Note* Ashutosh Vance LPN - 08/06/2023 2:04 PM EDT Supervisor Frame Sample And Pattern's Name: LARRY Are you on a blood thinner: NO If yes, is a hold required: NO Last dose of blood thinner: NO INR Result today: NO Do you require a Lovenox bridge:NO Are you a diabetic:NO Are you/or could you be : NO Are you taking Xanax for the procedure: NO Are you currently on a steroid? NO Are you currently on an antibiotic: NO Have you had a COVID-19 vaccine in the last 14 days Or are you scheduled to receive one? NO [facility]05-17-2024 History of Present illness Narrative* London Frye, PT - 07/25/2023 3:01 PM EDT Images from the original note were not included. Episode Visit Count: 1 Therapist That Will Accept/Oversee The Plan Of Care: London Frye PT Start of Care Date: 07/25/23 Onset Date: 07/11/23 (for the nerve symptoms) Plan of Care Certification Date: 07/25/23 Next Certification Due Date: 08/29/23 Patient Identified by Name and Date of : Yes REHABILITATION AND SPORTS THERAPY PHYSICAL THERAPY EVALUATION PLAN OF CARE: Assessment: Spenser Putnam presents with chief complaint of L LBP and LLE radicular that interferes with sitting . She presents with impairments in independence in exercise, overall function, range of motion, and symptom management. PROMIS (Patient-Reported Outcomes Measurement Information System) scores were reviewed and identified as a rehabilitation concern. Prognosis for therapy is Good due to: current objective clinical presentation . Pt demonstrates familiar pain with closing of the L facet joints in a weightbearing position. She will benefit from skilled therapy services to meet thegoals established for this plan of care as noted below. Goals for Episode of Care: created on 07/25/23 through 08/22/23 [place] in home exercise program. Patient will decrease pain rating by 2 points to meet minimal clinical important difference for numeric pain rating scale. Perform sitting without pain. Increase ROM of LB to WNL for return to PLOF Planned Interventions, Frequency, and Duration: Current Frequency: 1x/week Duration: 4 weeks Total Number of Visits Planned: 4 Planned Treatment Interventions: Therapeutic exercise (78442), Self-mcc management (60562), Patient/Family/Caregiver Education, Body Mechanics Training, General Conditioning PLAN FOR NEXT VISIT: Lumbar flexion unweighted Patient demonstrates good understanding of plan of care and treatment. The above goals and plan of care were discussed and agreed upon by patient/family. SUBJECTIVE: Pain in the back but it has extended down the front of the leg mostly. Feels like electric shocks down the leg to the ankle. Functional Limitations: sitting Prior Level of Function: Independent without limitations Intake Information: Prescription present Pain: Pain Pain Level: 7 (4 when sitting) Pain Location: Low Back/Lumbar Spine - Left Additional Pain Information : Location 2 Pain Location 2: Leg - Left Description 2: (electrical shock) PROMIS Scales 07/15/2023 04/14/2021 Higher is Better Phys Func - Score 32 (moderate dysfunction) 38 (moderate dysfunction) Phys Func - Percentile 4 12 Self-Eff Symptom - Score 33 (Low) 36 (Low) Self-Eff Symptom - Percentile 4 8 T-scores: mean of general population = 50. 5 points is clinically meaningfully difference Percentiles provide an indication of how the patient's score ranks in relation to the general population. Higher percentile rankings indicate better function/quality of life. 50th percentile is the average of the general population and indicates half of respondents had a worse score. OBJECTIVE MEASURES WITH LEVEL OF FUNCTION: Lumbar Spine AROM Lumbar Flexion: Normal Lumbar R Side-Bend: Normal Lumbar L Side-Bend: Minimal limitation, End range pain Lumbar R Rotation: Normal Lumbar L Rotation: Minimal limitation, End range pain LE Strength R LE Strength: 5/5 L LE Strength: 5/5 Gait Gait: Modified Independent Gait Distance (feet): 50 Gait Device: Cane Education: Education Learning Preferences: Demonstration, Explanation, Performance, Printed Materials Barriers: None Learning/educational needs: Home exercise program, Plan of Care Education Provided: Yes, see treatment interventions for education provided Education Provided To: Patient Education Mode/Type: Demonstration, Explanation/Discussion, Literature/Printed Materials, Performance Response to Education/Teach Back: States/Identifies, Return Demonstration TREATMENT: PT Treatment Interventions: Therapeutic Exercise Evaluation Therapeutic Exercise: 1: Discussed exam findings, purpose of the HEP and the HEP handout was provided to the pt. HEP discussed in detail with how to safely and properly perform each therapeutic exercise. Anatomy of the spine discussed and how lumbar flexion can open the facet joints and decrease inflammation. 2: SKTC 2 x 10 3: DKTC 2 x 10 Skilled Intervention: Patient was educated in proper exercise technique and purpose for exercises. Provided written instruction for home exercise program to facilitate proper performance and compliance. Correct performance of therapeutic exercises was facilitated with verbal and visual cuing. Billing * Evaluation Low Complexity: 1 Unit Therapeutic Exercise Treatment Minutes: 24 Skilled Treatment Time Minutes (timed and untimed codes): 41 Total Session Time (minutes): 41 Session Start Time : 1500 Session Stop Time : 1541 London Frye PT documented in this encounterC[facility] Telephone encounter Note * Telephone Encounter - Beronica Michel - 07/25/2023 2:54 PM EDT Procedure(s) being scheduled: 1.Are you diabetic No 2. Are you on any blood thinners? No 3. Are you taking any aspirin? Yes, 81mg 4. Are you currently taking any antibiotics? No 5. Do you have any allergies to latex? No 6. Do you have any allergies to seafood or shellfish? No 7. Do you have any allergies to x-ray dye? No 8. Did the physician instruct you to take any medication prior to your procedure? No 9. Does this procedure require a driver service technician? Yes If yes, has patient been notified that a driver service technician is needed and must be present at check in? yes 10. Were the pre-procedure instructions explained and provided to the patient? Yes 11. Do you have a pacemaker? No 12. Do you have an internal stimulator of any kind? No 13. Have you received the COVID-19 Vaccine? No. (Patient should not receive a procedure including steroids 14 days prior to their first dose of theCOVID vaccine. They should not receive any procedure containing steroids in the time frame between their 1st and 2nd doses of the COVID vaccine. They should not receive a procedure containing steroids 14 days after their 2nd dose of the COVID vaccine.) [facility]05-17-2024 Miscellaneous Notes* Telephone Encounter - Beronica Michel - 07/25/2023 2:54 PM EDT Procedure(s) being scheduled: 1.Are you diabetic No 2. Are you on any blood thinners? No 3. Are you taking any aspirin? Yes, 81mg 4. Are you currently taking any antibiotics? No 5. Do you have any allergies to latex? No 6. Do you have any allergies to seafood or shellfish? No 7. Do you have any allergies to x-ray dye? No 8. Did the physician instruct you to take any medication prior to your procedure? No 9. Does this procedure require a driver service technician? Yes If yes, has patient been notified that a driver service technician is needed and must be present at check in? yes 10. Were the pre-procedure instructions explained and provided to the patient? Yes 11. Do you have a pacemaker? No 12. Do you have an internal stimulator of any kind? No 13. Have you received the COVID-19 Vaccine? No. (Patient should not receive a procedure including steroids 14 days prior to their first dose of theCOVID vaccine. They should not receive any procedure containing steroids in the time frame between their 1st and 2nd doses of the COVID vaccine. They should not receive a procedure containing steroids 14 days after their 2nd dose of the COVID vaccine.) documented in this encounterC[facility] Instructions* Patient Instructions* Aj Graham APRN.CNP - 07/23/2023 8:08 AM EDT Ice and heat as tolerated Activity as tolerated documented in this encounterC[facility] History of Present illness Narrative* Aj Graham APRN.CNP - 07/23/2023 7:45 AM EDT Images from the original note were not included. VIRTUAL VISIT PROGRESS NOTE This is a virtual visit using [employer] Video Visit. It required patient- provider interaction for the medical decision making as documented below. I have communicated my name and active licensure. The patient's identity and physical location wereverified at the time of this visit. Either the patient or their legal telemarketing representative has been informed of the risks and benefits of -- and alternatives to -- treatment through a remote evaluation andconsents to proceed with the evaluation remotely. [facility] [place] [facility] Today's Date: 07/23/2023 Name: Spenser Putnam : 1940 Purpose: Follow-up Patient Evaluation - This is an established patient, returning today for continued evaluation and management of the chief complaint noted below Chief complaint: Spinal stenosis of lumbar region Referring Clinician: Destini Lay PA-C Pertinent Past Medical History: Insomnia, RLS, Carpal tunnel - left, HLD, HTN, Valvular heart disease, Raynaud's phenomenon, H/O other malignant neoplasm of skin, Lumbar disc herniation, DJD of sternoclavicular joint, 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, Pertinent Past Surgeries: Lumbar interbody fusion L3-4 (2020), Lumbar fusion (2012), Interv al History: Overall pain and functional disability since last visit: Better New Complaints since last visit: No PAIN DESCRIPTION: Timing: Constant Character: Aching, Dull Primary Location: left knee Radiation: lateral thigh and gomez, occasionally low back Exacerbating factors: Standing, Walking Relieving factors: Sitting, Lying Down Interferes with: walking (uses a walker) Patient reporting she received excellent relief from the genicular nerve block that was done on 07/17/2023. Patient stating that she received 90% relief for about 8 hours. Patient states the pain has come back to its regular intensity including radicular symptoms, numbness. Patient states currently she is miserable with her knee and leg pain. Current Pain Medications: Neuropathics: NSAIDS: Muscle Relaxants: Topicals: Other Prescription or OTC Pain Medications: Opioids (when applicable): Tolerating Medication: N/A Medications helping improve ADL's and Self-care: N/A Anti-depressants or Mood-Stabilizers: None Anti-Coagulants: None Therapies Attended (Current or Most Recent): No Current Therapies 04/17/2023 AG SPINE COMBINATION Questionnaire GREENLIGHT Completed Date 04/17/2023 Questionnaire Opiod Risk Tool Completed Date 04/17/2023 Comments 0 No question data found. (All drug screens are appropriate unless indicated otherwise) Notabl e Events During Course of Treatment: History of Present Illness (HPI): 04/15/2023 - Initial HPI (Obtained by Jackson Sumner M.D.). DURATION AND ONSET: The pain complaint has been present for approximately 40 years. The pain had a gradual onset. The mechanism of injury is unknown. RED FLAG SYMPTOMS: denies red flags. She saw her spine surgeon, who advised non-op management. She reports she had low back pain and left lower limb radicular symptoms that responded to surgery both times. She developed new onset low back pain and the left lower limb pain one month ago suddenly. She saw Dr. Gomez in 2012, did TFESI at L2-3 x 2, does not recall results. Current Pain Medications: Neuropathics: Pamelor 75mg qHS for sleep; Lyrica 50mg TID - just started NSAIDS: Naproxen 500mg BID PRN Muscle Relaxants: Topicals: Other Prescription or OTC Pain Medications: ASA 81mg Opioids (when applicable): Percocet - took sparingly, helped a little bit No question data found. Anti-depressants or Mood-Stabilizers: None Anti-Coagulants: None Therapies Attended (Current or Most Recent): No Current Therapies Treatment History: PAIN PROCEDURES: DATE PROCEDURE IMPROVEMENT 07/17/2023 L gen NB 90% 8 hrs 05/26/2023 L knee CSI <10 04/30/2023 L TFESI L4-S1 >50% MEDICATIONS Taken TO DATE (for the chief complaint(s)): Neuropathics: Neurontin (Gabapentin), Lyrica (Prebabalin), Pamelor (Nortriptyline), Elavil (Amitriptyline) NSAIDS: Naprosyn (Naproxen), Mobic (Meloxicam) Muscle Relaxants: None Topicals: None Other Prescription or OTC Pain Medications: Aspirin Opioids: Tramadol, Oxycodone (eg Percocet) Data Reviewed Today: Allergies: ALLERGIES Allergen Reactions Sulfa (Sulfonamide * Swelling, Anaphylaxis Tongue/ throat swelled Phenergan Plain Vomiting Vomiting Hydrocodone-Acetami* GI Upset NAUSEA Procardia [Nifedipi* Swelling legs Social History Tobacco Use Smoking status: Never Smokeless tobacco: Never Vaping Use Vaping Use: Never used Substance Use Topics Alcohol use: Yes Alcohol/week: 3.9 standard drinks of alcohol Types: 3 Mixed Drinks per week Comment: 3-4/week Drug use: No 07/10/2023 07/22/2023 INTAKE PAIN ASSESSMENT Are you having pain associated with your visit today? Yes, Provider notified Yes, Provider notified Pain Level 9 10 Pain Location Hip-Left Hip-Left Description Sharp;Shooting;Sore;Stabbing Aching;Cutting;Radiating;Sharp;Shooting Duration Amount of Time 3 5 Duration Units Months Months Frequency Continuous Continuous Intervention/Comfort measure Medication;Heat;Pillow support Heat;Pillow support;Positioning Compliance: PDMP website checked and validated on 07/23/2023 by Aj Graham APRN.[employer] All prescriptions have been APPROPRIATELY filled. No suspicious activity was identified. Percocet /325, #15 (04/02/2023, 03/26/2023) 04/17/2023 AG SPINE COMBINATION Questionnaire GREENLIGHT Completed Date 04/17/2023 Questionnaire Opiod Risk Tool Completed Date 04/17/2023 Comments 0 (All drug screens are appropriate unless indicated otherwise) Risk Assessment: EVI-7: 04/17/2023 EVI - 7 SCORES Score 0 (0-4) minimal anxiety, (5-9) mild anxiety, (10-14) moderate anxiety, (15-21) severe anxiety PHQ-9: 05/19/2013 10/17/2021 04/17/2023 PHQ-9 Score 3 5 0 (0-4) minimal depression, (5-9) mild depression, (10-14) moderate depression, (15-19) moderately severe depression, (20-27) severe depression Opioid Risk Tool: Family History of Substance Abuse: 0 - No Personal History of Substance Abuse: 0 - No Age between 16-45: 0 - No History of Pre-Adolescence Sexual Abuse: 0 - No Psychological Disease: 0 - No Risk Total: 0 Total Score Risk Category: Low Risk 0-3 (0-3, low risk or no risk; 4-7, moderate risk, 8+, high risk) Diagnostic Studies: Relevant Imaging: MRI Spine Report MRI LUMBAR SPINE WO IVCON Exam End: 03/27/2023 1:23 PM (Final result) Narrative: * * *Final Report* * * DATE OF EXAM: Mar 27 2023 1:23PM UMER [id number] - MRI LUMBAR SPINE WO IVCON / PROCEDURE REASON: multiple diagnoses * * * * Physician Interpretation * * * * EXAMINATION: MRI LUMBAR SPINE WO IVCON CLINICAL HISTORY: Radiculopathy of lumbar region Spinal stenosis of lumbar region with neurogenic claudication. TECHNIQUE: Routine lumbosacral spine MR protocol without gadolinium. MQ: [id number] COMPARISON: MRI lumbar spine dated 06/19/2012. Lumbar spine radiographs dated 03/21/2023. RESULT: Counting reference: Lumbosacral junction. For the purposes of this report, L4-5 is considered the level of the iliac crest and assume there are 5 lumbar-type vertebrae. Anatomic variant: None. Localizer images: No additional significant findings. Alignment: Disc space narrowing seen at L3-L4. 2 mm grade 1 retrolisthesis of L2 on L3. 3 mm grade 1 retrolisthesis of L3 on L4. 4 mm grade 1 anterolisthesis of L5 on S1. Bone marrow signal/fracture: Endplate degenerative signal change seen at L2-L3, L4-L5, and L5-S1. Susceptibility artifact from interbody fusion hardware at L3-L4, posterior fusion hardware at L4-L5, and left lateral screws at L3-L4 seen. Laminectomies seen at L3-L5. Conus: The conus is within normal limits of signal intensity and morphology. Paraspinal soft tissues: Disruption of the posterior fat planes at the mid and lower lumbar levels secondary to prior surgery. Lower thoracic spine: Visualized lower thoracic canal and foramina are patent. L1-L2: Minimal bulging annulus. Canal and foramina are patent. L2-L3: Bulging annulus and moderate to severe facet degenerative changes. Moderate to severe canal stenosis. Mild to moderate left and mild right foraminal narrowing. L3-L4: Bulging annulus and moderate facet degenerative change. Mild to moderate canal stenosis and left greater than right subarticular recess narrowing. Moderate bilateral foraminal narrowing. L4-L5: Bulging annulus. Canal is decompressed. Neural foramina are patent. L5-S1: Mild bulging annulus. Moderate facet degenerative changes. Mild to moderate left and mild right foraminal narrowing. Canals patent. Sacrum and iliac wings: Aside from degenerative change at L5-S1, the visualized sacrum and iliac wings are unremarkable. Compared to the prior MRI dated 06/19/2012, fusion hardware is new. Previously seen canal narrowing at L4-L5 has improved. Degenerative changes at other levels, most notably at L2-L3, have progressed. Impression: IMPRESSION: Postoperative changes with hardware and laminectomies at the L3-L5 levels. Multilevel degenerative changes, most significant at L2-L3 where there is moderate to severe canal stenosis (see full level by level discussion above). Otherwise, unremarkable MRI lumbar spine without contrast. Anatomic Lumbar Variant: None. L4-5 is considered the level of the iliac crest and assume there are 5 lumbar-type vertebrae. Ring Facer: [facility] Transcribe Date/Time: Mar 27 2023 1:25P Dictated by : RENEE CRUZ MD This examination was interpreted and the report reviewed and electronically signed by: RENEE CRUZ MD on Mar 27 2023 1:35PM EST X-ray Lumbar 03/2023 RESULT: 5 nonrib-bearing lumbar-type vertebrae. For numbering purposes, L4-5 is at the level of the iliac crest. Pedicle plate and screw device transfixes L4 and L5. No evidence of fracture or loosening. Disc spacer at L3-4 with hardware fixation. Mild grade 1 spondylolisthesis of L4 on L5, and L5 on S1. Moderate to severe disc space narrowing at L2-3 with vacuum phenomenon. Osteopenia. SI joints appear unremarkable IMPRESSION: DEGENERATIVE, POSTOPERATIVE CHANGE AND ALIGNMENT ABNORMALITIES DESCRIBED X-ray Rt. Hip 02/2023 RESULT: Bony mineralization within normal limits. Mild to moderate degenerative narrowing and bony spurring at the right hip joint. No acute fracture or dislocation is seen at the right hip. Lower lumbar fusion hardware from L3 to L5 IMPRESSION: Mild to moderate degenerative change with prominent spurring at the right hip similar to the previous MRI Lumbar 11/2020 Electrodiagnostic Study (EMG): 08/17/2020- Recent Labs: Creatinine Date Value Ref Range Status 07/03/2023 1.08 (H) 0.58 - 0.96 mg/dL Final eGFR, Date Value Ref Range Status 11/06/2012 >60 Final No results found for: PCGLUCOSE Current Medications, Past Medical History, Past Surgical History, Family History, Social History and Review of Systems: On today's date, noted above, I have confirmed and edited as necessary, the PFSH and ROS obtained by others. Physical Exam: There were no vitals filed for this visit. REVIEW OF SYSTEMS: GENERAL: feeling well without fatigue, no recent change in weight HEENT: denies GOOD, change in hearing or vision, no other ENT complaints NECK: denies swelling or pain in neck RESPIRATORY: no cough, no wheezing or shortness of breath CARDIOVASCULAR: no chest pain, no palpitations MUSCULOSKELETAL: complaints of knee pain as described above SKIN: no rash PSYCH: denies depressed or anxious mood, sleep is normal NEURO: no numbness or paresthesias and no weakness of the extremities PHYSICAL EXAMINATION: VIDEO EXAM: (if completed, performed via video enabled technology) GENERAL: alert and appropriate, in no distress, well-hydrated, well nourished, and happy, smiling, interactive SKIN: no rash noted HEAD: normocephalic, no abnormality or lesion noted EYES: no injection and visual acuity is grossly normal EARS: hearing grossly normal NOSE: external nose normal without rhinorrhea NECK: full ROM, no cervical LNs noted RESPIRATORY: breathing non-labored CHEST: equal chest rise with normal respiratory effort HEART: no obvious deficit BACK: back normal in appearance, spine with FROM EXTREMITIESdecreased ROM of left leg/Knee due to pain NEUROLOGIC: no obvious deficit IMPRESSION: 82 year old female presents with complaint(s) of Low back pain and left knee pain. Diagnoses: (M17.0) Primary osteoarthritis of both knees (primary encounter diagnosis) PLAN: Spenser Putnam would benefit from the following to reach personal goals for decreasing pain, improving function and work participation, and/or improving quality of life: Medications: Requested Prescriptions Signed Prescriptions Disp Refills methylPREDNISolone (MEDROL, GLENNA,) 4 mg Dose-Pack 21 tablet 0 Sig: As pkg directs Continue current medications Hi patient reporting excellent relief from the right genicular block. Patient stating that the painthat he she has in her leg both above and at the ankle was better with the genicular NB she had no pain or minimal for 8 hours. We will continue with doing the genicular RFA. In the meantime I gave the patient a Medrol Dosepak to see if we can get some of the inflammation down as the patient is complaining of pain. I did check the patient's BMP and I am concerned with the creatinine and BUN, and I am avoiding NSAIDs at this point. Interventional Procedures: Radiofrequency Ablation (Thermal RFA) - Genicular Nerves (Superior lateral, Superior medial and Inferior medial) under fluoroscopic guidance LEFT-SIDED at N/A Supervisor Frame Sample And Pattern Needed: Radiofrequency Ablation - YES Anticoagulant - Hold Needed: NO HOLD REQUIRED FOR THIS PROCEDURE Anticoagulant - Currently Taking: None Allergies (relevant): None Scheduling - Mobility (Can Patient independently transfer on/off an OR or Procedure table?): YES (May schedule at any location) Scheduling - Additional Info: None left leg Studies: None Functional Yarsani: NONE Referrals: No additional considerations at present Follow-up: 3 weeks after RFA Depending on response to the above plan, consider: MBB/RFA, Synvisc Compliance and Clinic Policies Reviewed and/or Discussed Today: None Attribution: In addition to reviewing the information noted above, some elements copied from my most recent clinical note(s), including the physical exam (completed in entirety today), and the impression and plan sections, have been updated where appropriate. All reflect current medical decision making from today's date. Aj Graham APRN.CNP Pain Management [facility] documented in [facility] encounterC[facility] NoteHNO ID: [id number] Author: AJ GRAHAM APRN.CNP Service: ? Author Type: Nurse Practitioner Type: Progress Notes Filed: 07/23/2023 08:09 Note Text: VIRTUAL VISIT PROGRESS NOTE This is a virtual visit using [employer] Zoom Video Visit. It required patient-provider interaction for the medical decision making as documented below. I have communicated my name and active licensure. The patient's identity and physical location were verified at the time of this visit. Either the patient or their legal telemarketing representative has been informed of the risks and benefits of -- and alternatives to -- treatment through a remote evaluation and consents to proceed with the evaluation remotely. [facility] Today's Date: 07/23/2023 Name: Spenser Putnam : 1940 Purpose: Follow-up Patient Evaluation - This is an established patient, returning today for continued evaluation and management of the chief complaint noted below Chief complaint: Spinal stenosis of lumbar region Referring Clinician: Destini Lay PA-C Pertinent Past Medical History: Insomnia, RLS, Carpal tunnel - left, HLD, HTN, Valvular heart disease, Raynaud's phenomenon, H/O other malignant neoplasm of skin, Lumbar disc herniation, DJD of sternoclavicular joint, 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, Pertinent Past Surgeries: Lumbar interbody fusion L3-4 (2020), Lumbar fusion (2012), Interval History: Overall pain and functional disability since last visit: Better New Complaints since last visit: No PAIN DESCRIPTION: Timing: Constant Character: Aching, Dull Primary Location: left knee Radiation: lateral thigh and gomez, occasionally low back Exacerbating factors: Standing, Walking Relieving factors: Sitting, Lying Down Interferes with: walking (uses a walker) Patient reporting she received excellent relief from the genicular nerve block that was done on 07/17/2023. Patient stating that she received 90% relief for about 8 hours. Patient states the pain has come back to its regular intensity including radicular symptoms, numbness. Patient states currently she is miserable with her knee and leg pain. Current Pain Medications: Neuropathics: NSAIDS: Muscle Relaxants: Topicals: Other Prescription or OTC Pain Medications: Opioids (when applicable): Tolerating Medication: N/A Medications helping improve ADL's and Self-care: N/A Anti-depressants or Mood-Stabilizers: None Anti-Coagulants: None Therapies Attended (Current or Most Recent): No Current Therapies 04/17/2023 [facility] SPINE COMBINATION Questionnaire GREENLIGHT Completed Date 04/17/2023 Questionnaire Opiod Risk Tool Completed Date 04/17/2023 Comments 0 No question data found. (All drug screens are appropriate unless indicated otherwise) Notable Events During Course of Treatment: History of Present Illness (HPI): 04/15/2023 - Initial HPI (Obtained by Jackson Sumner M.D.). DURATION AND ONSET: The pain complaint has been present for approximately 40 years. The pain had a gradual onset. The mechanism of injury is unknown. RED FLAG SYMPTOMS: denies red flags. She saw her spine surgeon, who advised non-op management. She reports she had low back pain and left lower limb radicular symptoms that responded to surgery both times. She developed new onset low back pain and the left lower limb pain one month ago suddenly. She saw Dr. Gomez in 2012, did TFESI at L2-3 x 2, does not recall results. Current Pain Medications: Neuropathics: Pamelor 75mg qHS for sleep; Lyrica 50mg TID - just started NSAIDS: Naproxen 500mg BID PRN Muscle Relaxants: Topicals: Other Prescription or OTC Pain Medications: ASA 81mg Opioids (when applicable): Percocet - took sparingly, helped a little bit No question data found. Anti-depressants or Mood-Stabilizers: None Anti-Coagulants: None Therapies Attended (Current or Most Recent): No Current Therapies Treatment History: PAIN PROCEDURES: DATE PROCEDURE IMPROVEMENT 07/17/2023 L gen NB 90% 8 hrs 05/26/2023 L knee CSI <10 04/30/2023 L TFESI L4-S1 >50% MEDICATIONS Taken TO DATE (for the chief complaint(s)): Neuropathics: Neurontin (Gabapentin), Lyrica (Prebabalin), Pamelor (Nortriptyline), Elavil (Amitriptyline) NSAIDS: Naprosyn (Naproxen), Mobic (Meloxicam) Muscle Relaxants: None Topicals: None Other Prescription or OTC Pain Medications: Aspirin Opioids: Tramadol, Oxycodone (eg Percocet) Data Reviewed Today: Allergies: ALLERGIES Allergen Reactions Sulfa (Sulfonamide * Swelling, Anaphylaxis Tongue/ throat swelled Phenergan (more content not included)...[facility]05-10-2024 Telephone encounter Note* Telephone Encounter - Meg Chaudhary LPN - 07/18/2023 9:45 AM EDT Spoke with patient following up from procedure. Patient states they are doing well, no questions orconcerns at this time. Meg Chaudhary LPN [facility]05-10-2024 Miscellaneous Notes* Telephone Encounter - Meg Chaudhary LPN - 07/18/2023 9:45 AM EDT Spoke with patient following up from procedure. Patient states they are doing well, no questions orconcerns at this time. Meg Chaudhary LPN documented in this encounterC[facility]05-[facility] Nurse Note* Rosalba Arriaga LPN - 07/17/2023 9:47 AM EDT Order has been placed in the patient's chart with the following parameters for discharge from the physician: Patient is alert and oriented Vitals: Diastolic/Systolic +/- 20mmHg Respirations: 12-18 Pulse: 60-100 SpO2 is greater than or equal to 90% Patient has no nausea or vomiting Patient has no dizziness Pain level is +/- 2 from initial evaluation Dressing, dry and intact with no evidence of bleeding Criteria has been met, patient is okay to be discharged per the physician. Physician has gone in and evaluated the patient. Dressing dry and intact. No drainage noted. The patient denies nausea, numbness, tingling, weakness, shortness of breath, dizziness, or headache. Pain level 0/10. Vital signs within normal limits. Patient denied needing walked out by clinical staff and denied needing a wheelchair. Patient given discharge instructions and sent to transportation via ambulatory method. Patient left in good condition. [facility]05-[facility] Nurse Note* Rosalba Arriaga LPN - 07/17/2023 9:47 AM EDT Order has been placed in the patient's chart with the following parameters for discharge from the physician: Patient is alert and oriented Vitals: Diastolic/Systolic +/- 20mmHg Respirations: 12-18 Pulse: 60-100 SpO2 is greater than or equal to 90% Patient has no nausea or vomiting Patient has no dizziness Pain level is +/- 2 from initial evaluation Dressing, dry and intact with no evidence of bleeding Criteria has been met, patient is okay to be discharged per the physician. Physician has gone in and evaluated the patient. Dressing dry and intact. No drainage noted. The patient denies nausea, numbness, tingling, weakness, shortness of breath, dizziness, or headache. Pain level 0/10. Vital signs within normal limits. Patient denied needing walked out by clinical staff and denied needing a wheelchair. Patient given discharge instructions and sent to transportation via ambulatory method. Patient left in good condition. * Ashutosh Vance LPN - 07/17/2023 9:07 AM EDT Procedure to be performed: LEFT Genicular Nerve Block Patient was wheeled on stretcher from pre op bay to procedure room and assisted onto the procedure tablePatient s procedure was performed in an [facility] Procedure room. Pause completed at each level by provider to verify correct level and laterality placement Pressure was applied to patient s injection site(s) and bleeding was minimal. Patient had no complaint of shortness of breath, dizziness, headache, numbness, tingling, weakness or complications from procedure. Patient was assisted from the procedure table onto the stretcher and wheeled into a post op bay. Patient was advised a clinician will be to obtain another set of vitals. Time Out: 925 Confirmed patient name, date of , procedure site, laterality, and allergies Procedure Start: 928 Procedure End: 936 * Marissa Briones LPN - 07/17/2023 8:57 AM EDT Supervisor Frame Sample And Pattern's Name: LARRY Are you on a blood thinner: N If yes, is a hold required: N Last dose of blood thinner: N INR Result today: N Do you require a Lovenox bridge:N Are you a diabetic:N Are you/or could you be : N Are you taking Xanax for the procedure: NN Are you currently on a steroid? N Are you currently on an antibiotic: N Have you had a COVID-19 vaccine in the last 14 days Or are you scheduled to receive one? N documented in this encounterC[facility] History of Present illness Narrative* Danii Roca MD - 07/17/2023 9:10 AM EDT [facility] Date: 07/17/2023 Patient name: Spenser Putnam Physician performing procedure: Danii Roca MD, PhD Procedure: Genicular Nerve Block under fluoroscopic guidance (Superolateral, superomedial and inferomedial genicular nerves) Side Treated: Left Injectate: A total of 3cc, consisting of 2% Lidocaine (1ml per site) Improvement after today's procedure: as per nursing report Diagnosis: (M17.0) Primary osteoarthritis of both knees (primary encounter diagnosis) Comments: None HPI: Spenser Putnam is an 82 year old FEMALE who presents today for elective, diagnostic genicular nerve blocks. Patient otherwise denies fevers, chills, weakness, saddle anesthesia, bowel or bladder incontinenceor recent antibiotic or anticoagulant use. Review of Systems: Pertinent Positives: MSK: pain in the region being treated Neuro: No weakness or numbness in the region being treated Skin: Negative (No itching) Eyes: Negative (No blurred or double vision) Respiratory: Negative (No Cough, [id number], Dyspnea on exertion, wheezing) Cardiovascular: Negative (No Chest Pain, Tightness, Pressure, Palpitations) Gastrointestinal: Negative (No Abdominal pain, Nausea, Vomiting, Constipation, Diarrhea) Genitourinary: Negative (No dysuria) Hematologic: Negative (No bleeding, bruising) OB: is Denied or Not Applicable Endocrine: Negative (No hot/cold intolerance) Psychiatric: Negative (No depression, anxiety or suicidal ideation) ALLERGIES Allergen Reactions Sulfa (Sulfonamide * Swelling, Anaphylaxis Tongue/ throat swelled Phenergan Plain Vomiting Vomiting Hydrocodone-Acetami* GI Upset NAUSEA Procardia [Nifedipi* Swelling legs Current Outpatient Medications on File Prior to Visit Medication Sig nortriptyline (PAMELOR) 75 mg capsule Take 1 capsule by mouth daily at bedtime. colchicine 0.6 mg tablet Take one tab by mouth 3 times a day till pain stops or script finished. rOPINIRole (REQUIP) 3 mg tablet Take 1 tablet by mouth daily at bedtime. lisinopril (ZESTRIL) 20 mg tablet Take 1 tablet by mouth once daily. pravastatin (PRAVACHOL) 20 mg tablet Take 1 tablet by mouth daily at bedtime. potassium chloride 20 mEq TbER Take 1 tablet by mouth two times a day. spironolactone (ALDACTONE) 50 mg tablet Take 1 tablet by mouth once daily. ammonium lactate (LAC-HYDRIN) 12 % cream Apply to affected area as needed. aspirin, enteric coated (ADULT LOW DOSE ASPIRIN) 81 mg EC tablet Take 1 tablet by mouth once daily. calcium carbonate(CALTRATE 600 600 MG (1,500 MG) TAB) DAILY MULTIVITAMIN TAB Take by mouth. No current facility-administered medications on file prior to visit. 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 Macias, Rt anterior shoulder, Gilberto III, pT1a, pNX, pM N/A Mixed hyperlipidemia 10/13/2014 Multiple thyroid nodules 09/15/2017 CT neck09/2017 7 mm nodule, US .2018 multiple small nodules repeat 09/2019 Non morbid obesity 03/29/2016 Osteopenia, senile 07/02/2005 SEE DEXA 07/15 Other chronic dermatitis due to solar radiation 03/27/2006 Other psoriasis 04/16/2013 Other seborrheic keratosis 06/23/2006 Personal history of other malignant neoplasm of skin 03/22/2013 Raynaud's phenomenon without gangrene 06/07/2020 suspected Restless leg syndrome Sensorineural hearing loss, asymmetrical 10/08/2017 Solar lentigo 03/22/2013 Spondylolisthesis at L5-S1 level 10/20/2012 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 09/15/2012 Vertigo 12/03/2021 MRI normal and patient declined further eval as of 12/03/21 Vitamin D deficiency 08/24/2016 Xerosis cutis 03/22/2013 PAST SURGICAL HISTORY Procedure Laterality Date ABDOMINAL SURGERY HX BACK SURGERY HX 01/23/2021 lateral lumbar interbody fusion L3-4 CHOLECYSTECTOMY age 52 +/- laparoscopic cholecystectomy COLONOSCOPY 04/29/2013 Dr. Patton, repeat 5 yrs COLONOSCOPY FLX DX W/COLLJ SPEC WHEN PFRMD 07/09/2006 COLONOSCOPY FLX DX W/COLLJ SPEC WHEN PFRMD 04/29/2013 internal hemorrhoids, q5y for FHx COLONOSCOPY, GI 05/02/2000 FHx, repeat q5y DILATION & CURETTAGE DX&/THER NONOBSTETRIC Dilation & curettage EYE SURGERY HX PAST SURGICAL HISTORY OF 12/2011 squamous cell CA rt hand.left LE PAST SURGICAL HISTORY OF 04/2012 rt CTR-- endoscopic PAST SURGICAL HISTORY OF 2012 lumbar surgery- fusion PAST SURGICAL HISTORY OF 2014 excision melanoma right shoulder PAST SURGICAL HISTORY OF Right 2017 bunionectoy TONSILLECTOMY HX TONSILLECTOMY PRIMARY/SECONDARY <AGE 12 childhood Tonsillectomy FAMILY HISTORY Problem Relation Age of Onset Colon Cancer Mother ~70 Hypertension Mother Thyroid Mother Colon Cancer Father ~70 Hypertension Father Stroke Father Heart Father Hx of CHF Coronary Artery Disease Maternal Grandmother Hx of HI Diabetes Daughter Type I Social History Tobacco Use Smoking status: Never Smokeless tobacco: Never Vaping Use Vaping Use: Never used Substance Use Topics Alcohol use: Yes Alcohol/week: 3.9 standard drinks of alcohol Types: 3 Mixed Drinks per week Comment: 3-4/week Drug use: No Attestation Information obtained by others were confirmed and edited as necessary on 07/14/2023 by Danii Roca MD. Objective Exam: Vitals: As per nursing documentation Constitutional: Normal Appearance, Oriented to Time, Place and Person Head: No lacerations, no external signs of trauma Eyes: Conjunctiva clear. No discharge from the eyes Cardiovascular: Appears well-perfused Pulmonary: Non-labored respirations Abdominal: Non-distended Skin: No visible rashes or ecchymosis Psychiatric: Mood appropriate for given condition Neurological: no focal deficits, gross movements are limited by pain, but otherwise unremarkable Data Reviewed: Nursing note and vitals reviewed. Additional imaging reviewed as appropriate Assessment and Plan: We discussed their current plan and the pathology responsible for the patient's pain. Specific counseling related to the procedure was provided regarding the risks, benefits and alternatives. The patient wishes to proceed with the plan as noted above. Encounter Diagnosis ICD-10-CM 1. Primary osteoarthritis of both knees M17.0 INJECT ANESTH AGENT lidocaine (PF) 20 mg/mL (2 %) 200 mg injection (XYLOCAINE) UNIVERSAL PROTOCOL / SAFETY CHECKLIST Procedure to be Performed: as stated above Sign In: A Moment of CARE was completed. Personnel directly involved with the procedure wore the appropriate PPE (Personal Protective Equipment). Patient/Surrogate Stated/Verified: PATIENT VERIFIED(optional for EMERGENT procedures): Patient name, Date of , Relevant allergies and The intended procedure Time Out Communication: Intended patient and procedure match the source documents. Consent documented and matches the intended procedure. Relevant labs, photos, and/or imaging studies have been reviewed. Medications required for procedure verified. Sign Out: SIGN OUT (optional for EMERGENT procedures): No specimen collected. Time out to confirm patient name, date of , procedure site, laterality, and allergies performed by physician. Please see nursing note for exact times (time out, procedure start, procedure end). [place] protocol documentation / Pre-Procedure checklist: Unless stated otherwise in the procedure note, the risks include but are not limited to infection, allergic reaction, increased pain, lack of therapeutic benefit, steroid reaction, nerve damage, paralysis, stroke, epidural hematoma, syncope, headache, respiratory or cardiac arrest, pneumothorax, and scar formation Time Out was led by the physician in the procedure room, with the patient and all staff present andparticipating The following information was verified: name, date of , procedure site (marked), laterality, anticoagulants and allergies [place] protocol documentation / Pre-Procedure Checklist: Consent: Obtained in writing prior to procedure Unless stated otherwise in the procedure note, the risks include but are not limited to infection, allergic reaction, increased pain, lack of therapeutic benefit, steroid reaction, nerve damage, paralysis, stroke, epidural hematoma, syncope, headache, respiratory or cardiac arrest, pneumothorax, and scar formation Once the plan was agreed upon, the patient gave written consent to proceed and was transported intothe procedure room Surgical/Procedure pause or Time Out : Time Out was led by the physician in the procedure room, with the patient and all staff present andparticipating The following information was verified during the Time Out process: Patient name, patient date of , procedure site (marked), laterality, anticoagulants and allergies Anticoagulants: reviewed with patient, notable for: none DESCRIPTION OF PROCEDURE: The patient was brought to the procedure room and placed on the exam table in a comfortable supine position. A sterile field was prepared with chloroprep and sterile drapes.The risks are as mentionedabove, except for pneumothorax. The target sites were along the trajectory of the superolateral, superomedial and inferomedial genicular nerves along their respective bony structures, which was confirmed under fluoroscopic imaging. Local anesthesia was provided by local infiltration of lidocaine 1%over each target site. A 22 gauge spinal needle was then directed under fluoroscopic guidance to the bony endpoint on the superolateral portion of the femoral epicondyle at its junction with the femoral diaphysis (targeting the SLGN) of the above noted knee. A second needle was advanced to a bony endpoint on the superomedial portion of the femoral epicondyle at its junction with the femoral diaphysis (targeting the SMGN). A third needle was then placed over the inferomedial portion of the tibial epicondyle until a bony endpoint was met at the junction of the tibial diaphysis and the medial tibial condyle (targetingthe IMGN). Attempted aspiration yielded no blood. Lateral views showed all the needles with the Radiopaque Band at 50% depth of the femur and tibia. Images were saved in AP and lateral. After negative aspiration, the above noted injectate was then slowly injected in divided doses between the three needle sites in equal volumes. The needles were then withdrawn. Please see the nursing note for exact times (time out, procedure start, procedure end). After careful removal of the needle, there was minimal bleeding. The injection site was covered with appropriate sterile dressing. The patient was noted to have tolerated the procedure well and was discharged after an appropriate period of post-procedure observation. The patient was instructed to contact us if there were any complications. The patient was advised to follow-up with the requesting physician within one to two weeks or as per their requested follow-up plan. Post procedure visit summary with written instructions was offered to the patient. Danii Roca MD, PhD Pain Management [facility] * Marissa Briones LPN - 07/17/2023 9:01 AM EDT Review of Systems Constitutional: Positive for activity change. Negative for chills, fever and unexpected weight change. Gastrointestinal: Negative for bowel retention or incontinence Genitourinary: Negative for difficulty urinating. Negative for bladder retention or incontinence Musculoskeletal: Positive for gait problem. Negative for arthralgias, back pain, joint swelling, myalgias, neck pain and neck stiffness. Neurological: Negative for weakness, numbness and headaches. Psychiatric/Behavioral: Positive for sleep disturbance. Negative for dysphoric mood and suicidal ideas. The patient is nervous/anxious. documented in this encounterC[facility] NoteHNO ID: [id number] Author: DANII ROCA MD Service: ? Author Type: Physician Type: Progress Notes Filed: 07/17/2023 16:16 Note Text: [facility] Date: 07/17/2023 Patient name: Spenser Putnam Physician performing procedure: Danii Roca MD, PhD Procedure: Genicular Nerve Block under fluoroscopic guidance (Superolateral, superomedial and inferomedial genicular nerves) Side Treated: Left Injectate: A total of 3cc, consisting of 2% Lidocaine (1ml per site) Improvement after today's procedure: as per nursing report Diagnosis: (M17.0) Primary osteoarthritis of both knees (primary encounter diagnosis) Comments: None HPI: Spenser Putnam is an 82 year old FEMALE who presents today for elective, diagnostic genicular nerve blocks. Patient otherwise denies fevers, chills, weakness, saddle anesthesia, bowel or bladder incontinence or recent antibiotic or anticoagulant use. Review of Systems: Pertinent Positives: MSK: pain in the region being treated Neuro: No weakness or numbness in the region being treated Skin: Negative (No itching) Eyes: Negative (No blurred or double vision) Respiratory: Negative (No Cough, [id number], Dyspnea on exertion, wheezing) Cardiovascular: Negative (No Chest Pain, Tightness, Pressure, Palpitations) Gastrointestinal: Negative (No Abdominal pain, Nausea, Vomiting, Constipation, Diarrhea) Genitourinary: Negative (No dysuria) Hematologic: Negative (No bleeding, bruising) OB: is Denied or Not Applicable Endocrine: Negative (No hot/cold intolerance) Psychiatric: Negative (No depression, anxiety or suicidal ideation) ALLERGIES Allergen Reactions Sulfa (Sulfonamide * Swelling, Anaphylaxis Tongue/ throat swelled Phenergan Plain Vomiting Vomiting Hydrocodone-Acetami* GI Upset NAUSEA Procardia [Nifedipi* Swelling legs Current Outpatient Medications on File Prior to Visit Medication Sig nortriptyline (PAMELOR) 75 mg capsule Take 1 capsule by mouth daily at bedtime. colchicine 0.6 mg tablet Take one tab by mouth 3 times a day till pain stops or script finished. rOPINIRole (REQUIP) 3 mg tablet Take 1 tablet by mouth daily at bedtime. lisinopril (ZESTRIL) 20 mg tablet Take 1 tablet by mouth once daily. pravastatin (PRAVACHOL) 20 mg tablet Take 1 tablet by mouth daily at bedtime. potassium chloride 20 mEq TbER Take 1 tablet by mouth two times a day. spironolactone (ALDACTONE) 50 mg tablet Take 1 tablet by mouth once daily. ammonium lactate (LAC-HYDRIN) 12 % cream Apply to affected area as needed. aspirin, enteric coated (ADULT LOW DOSE ASPIRIN) 81 mg EC tablet Take 1 tablet by mouth once daily. calcium carbonate(CALTRATE 600 600 MG (1,500 MG) TAB) DAILY MULTIVITAMIN TAB Take by mouth. No current facility-administered medications on file prior to visit. 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 Macias, Rt anterior shoulder, Gilberto III, pT1a, pNX, pM N/A Mixed hyperlipidemia 10/13/2014 Multiple thyroid nodules 09/15/2017 CT neck09/2017 7 mm nodule, US 7.2019 multiple small nodules repeat 09/2019 Non morbid obesity 03/29/2016 Osteopenia, senile 07/02/2005 SEE DEXA 07/15 Other chronic dermatitis due to solar radiation 03/27/2006 Other psoriasis 04/16/2013 Other seborrheic keratosis 06/23/2006 Personal history of other malignant neoplasm of skin 03/22/2013 Raynaud's phenomenon without gangrene 06/07/2020 suspected Restless leg syndrome Sensorineural hearing loss, asymmetrical 10/08/2017 Solar lentigo 03/22/2013 Spondylolisthesis at L5-S1 level 10/20/2012 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 09/15/2012 Vertigo 12/03/2021 MRI normal and patient declined further eval as of 12/03/21 Vitamin D deficiency 08/24/2016 Xerosis cutis 03/22/2013 PAST SURGICAL HISTORY Procedure Laterality Date ABDOMINAL SURGERY HX BACK SURGERY HX 01/23/2021 lateral lumbar interbody fusion L3-4 CHOLECYSTECTOMY age 52 +/- laparoscopic cholecystectomy COLONOSCOPY 04/29/2013 Dr. Patton, repeat 5 yrs COLONOSCOPY FLX DX W/COLLJ SPEC WHEN PFRMD 07/09/2006 COLONOSCOPY FLX DX W/COLLJ SPEC WHEN PFRMD 04/29/2013 internal hemorrhoids, q5y for FHx COLONOSCOPY, GI 05/02/2000 FH (more content not included)...[facility]05-09-[facility] Nurse Note* Ashutosh Vance LPN - 07/17/2023 9:07 AM EDT Procedure to be performed: LEFT Genicular Nerve Block Patient was wheeled on stretcher from pre op bay to procedure room and assisted onto the procedure tablePatient s procedure was performed in an [facility] Procedure room. Pause completed at each level by provider to verify correct level and laterality placement Pressure was applied to patient s injection site(s) and bleeding was minimal. Patient had no complaint of shortness of breath, dizziness, headache, numbness, tingling, weakness or complications from procedure. Patient was assisted from the procedure table onto the stretcher and wheeled into a post op bay. Patient was advised a clinician will be to obtain another set of vitals. Time Out: 925 Confirmed patient name, date of , procedure site, laterality, and allergies Procedure Start: 928 Procedure End: 936 [facility] Instructions* Patient Instructions* Rosalba Arriaga LPN - 07/17/2023 9:06 AM EDT PROCEDURE DISCHARGE INSTRUCTIONS 07/17/2023 Spenser Putnam 1940 Physician: Danii Roca MD Procedure: Selective Nerve Root Block (Diagnosis), Level: Left knee Post Procedure Instructions: If sedation not given, no driving for 3 hours after the procedure., Perform activities that typically make you have pain and monitor your pain level during these activities for the next 3-4 hours., Apply cold compresses to injection site if needed., If medically acceptable, take over the counter anti- inflammatories such as ibuprofen or Aleve if needed for post procedure discomfort., No hot baths,hot tubs or hot compresses for 24 hours., and Increased pain the day after the procedure may occur. If you have any of the following signs or symptoms, please call our office at Fever and/or chills Swelling and/or drainage from injection site New pain that is different than your normal pain (other than soreness at the site of the procedure) Stiff neck Shortness of breath Severe increase in pain Motor dysfunctions, such as difficulty walking, bowel or bladder dysfunction and/or incontinence Headache that is severe, light sensitive or develops when changing positions (positional headache) Nausea and/or vomiting accompanied by headache that started 24-48 hours after the procedure If you have any emergent concerns, please call 911 or go to your local emergency room. Please also contact our office to let us know you will be seeking emergency care and why. documented in this encounterC[facility]05-09-2024 NoteHNO ID: [id number] Author: MARISSA BRIONES LPN Service: ? Author Type: LICENSED NURSE Type: Progress Notes Filed: 07/17/2023 16:16 Note Text: Review of Systems Constitutional: Positive for activity change. Negative for chills, fever and unexpected weight change. Gastrointestinal: Negative for bowel retention or incontinence Genitourinary: Negative for difficulty urinating. Negative for bladder retention or incontinence Musculoskeletal: Positive for gait problem. Negative for arthralgias, back pain, joint swelling, myalgias, neck pain and neck stiffness. Neurological: Negative for weakness, numbness and headaches. Psychiatric/Behavioral: Positive for sleep disturbance. Negative for dysphoric mood and suicidal ideas. The patient is nervous/anxious.[facility]05-[facility] Nurse Note* Marissa Briones LPN - 07/17/2023 8:57 AM EDT Supervisor [employer] Sample And Pattern's Name: LARRY Are you on a blood thinner: N If yes, is a hold required: N Last dose of blood thinner: N INR Result today: N Do you require a Lovenox bridge:N Are you a diabetic:N Are you/or could you be : N Are you taking Xanax for the procedure: NN Are you currently on a steroid? N Are you currently on an antibiotic: N Have you had a COVID-19 vaccine in the last 14 days Or are you scheduled to receive one? N [facility]04-[facility] Telephone encounter Note* Telephone Encounter - Virgie Jernigan LPN - 07/04/2023 10:52 AM EDT Patient notified and voiced her understanding. [facility]04-26-[facility] Miscellaneous Notes* Telephone Encounter - Virgie Jernigan LPN - 07/04/2023 10:52 AM EDT Patient notified and voiced her understanding. * Telephone Encounter - Destini Lay PA-C - 07/04/2023 8:42 AM EDT Let patient know that her potassium and calcium levels are better. It does show that she is still slightly under-hydrated though. Her BUN is elevated as is her creatinine but better than last lab. Avoid NSAIDs and push fluids. We will monitor levels and recheck prior to her visit in September.. documented in this encounterC[facility]04-26-2024 Telephone encounter Note * Telephone Encounter - Destnii Lay PA-C - 07/04/2023 8:42 AM EDT Let patient know that her potassium and calcium levels are better. It does show that she is still slightly under-hydrated though. Her BUN is elevated as is her creatinine but better than last lab. Avoid NSAIDs and push fluids. We will monitor levels and recheck prior to her visit in September.. [facility]04-25-[facility] Telephone encounter Note* Telephone Encounter - Belinda Douglas OCCA - 07/03/2023 9:36 AM EDT Patient informed of below. BRIAN Burnett [facility]04-25-2024 Miscellaneous Notes* Telephone Encounter - Belinda Douglas OCCA - 07/03/2023 9:36 AM EDT Patient informed of below. BRIAN Burnett * Telephone Encounter - Destini Lay PA-C - 07/03/2023 9:02 AM EDT Not yet * Telephone Encounter - Minnie Wilburn LPN - 07/03/2023 8:50 AM EDT Pt notified of results, she will hydrate & come in today for the lab test. Pt states she takes potassium 20mg & calcium daily, is she to hold those at this time? Minnie Wilburn LPN * Telephone Encounter - Destini Lay PA-C - 07/03/2023 8:06 AM EDT Uric acid is still mildly elevated at 6.8. if levels were over 8, I would be more inclined to have her start a uric acid lowering medication. But at 6.8, I recommend that we monitor. Recommend she look online for uric acid lowering diet (decreasing alcohol, red meat, etc). As long as she is okay with this, I would recheck labs in 3 months. Her BMP shows that she is dehydrated. Kidney function is elevated. Potassium is high. Calcium is high. I need her to hydrate and come back in today for repeat lab draw. documented in this encounterC[facility]04-[facility]-2024 Telephone encounter Note * Telephone Encounter - Destini Lay PA-C - 07/03/2023 9:02 AM EDT Not yet [facility] Telephone encounter Note* Telephone Encounter - Minnie Wilburn LPN - 07/03/2023 8:50 AM EDT Pt notified of results, she will hydrate & come in today for the lab test. Pt states she takes potassium 20mg & calcium daily, is she to hold those at this time? Minnie Wilburn LPN [facility]04-25-[facility] Telephone encounter Note* Telephone Encounter - Destini Lay PA-C - 07/03/2023 8:06 AM EDT Uric acid is still mildly elevated at 6.8. if levels were over 8, I would be more inclined to have her start a uric acid lowering medication. But at 6.8, I recommend that we monitor. Recommend she look online for uric acid lowering diet (decreasing alcohol, red meat, etc). As long as she is okay with this, I would recheck labs in 3 months. Her BMP shows that she is dehydrated. Kidney function is elevated. Potassium is high. Calcium is high. I need her to hydrate and come back in today for repeat lab draw. [facility]04-[facility] Telephone encounter Note* Telephone Encounter - Belinda Douglas OCCA - 06/30/2023 11:25 AM EDT Patient has been identified by name and date of : Yes Patient phones for refill(s): Requested Prescriptions Pending Prescriptions Disp Refills nortriptyline (PAMELOR) 75 mg capsule 30 capsule 5 Sig: Take 1 capsule by mouth daily at bedtime. Date of last office visit in primary care: 06/17/2023 Date of next office visit in primary care: 09/17/2023 Please advise. Thank you. BRIAN Burnett. [facility]04-22-[facility] Miscellaneous Notes* Telephone Encounter - Belinda Douglas OCCA - 06/30/2023 11:25 AM EDT Patient has been identified by name and date of : Yes Patient phones for refill(s): Requested Prescriptions Pending Prescriptions Disp Refills nortriptyline (PAMELOR) 75 mg capsule 30 capsule 5 Sig: Take 1 capsule by mouth daily at bedtime. Date of last office visit in primary care: 06/17/2023 Date of next office visit in primary care: 09/17/2023 Please advise. Thank you. BRIAN Burnett. documented in this encounterC[facility]04-18-2024 Miscellaneous Notes* Telephone Encounter - Priscilla Vivar - 06/26/2023 3:24 PM EDT Procedure(s) being scheduled: 1.Are you diabetic No 2. Are you on any blood thinners? No 3. Are you taking any aspirin? Yes, 81mg 4. Are you currently taking any antibiotics? No 5. Do you have any allergies to latex? No 6. Do you have any allergies to seafood or shellfish? No 7. Do you have any allergies to x-ray dye? No 8. Did the physician instruct you to take any medication prior to your procedure? No 9. Does this procedure require a driver service technician? Yes If yes, has patient been notified that a driver service technician is needed and must be present at check in? yes 10. Were the pre-procedure instructions explained and provided to the patient? Yes 11. Do you have a pacemaker? No 12. Do you have an internal stimulator of any kind? No 13. Have you received the COVID-19 Vaccine? No. (Patient should not receive a procedure including steroids 14 days prior to their first dose of theCOVID vaccine. They should not receive any procedure containing steroids in the time frame between their 1st and 2nd doses of the COVID vaccine. They should not receive a procedure containing steroids 14 days after their 2nd dose of the COVID vaccine.) Priscilla Vivar documented in this encounterC[facility]04-18-[facility]24 History of Present illness Narrative* Aj Graham APRN.[employer] - 06/26/2023 3:00 PM EDT Images from the original note were not included. [facility] Today's Date: 06/26/2023 Name: Spenser Putnam : 1940 Purpose: Follow-up Patient Evaluation - This is an established patient, returning today for continued evaluation and management of the chief complaint noted below Chief complaint: Spinal stenosis of lumbar region Referring Clinician: Destini Lay PA-C Pertinent Past Medical History: Insomnia, RLS, Carpal tunnel - left, HLD, HTN, Valvular heart disease, Raynaud's phenomenon, H/O other malignant neoplasm of skin, Lumbar disc herniation, DJD of sternoclavicular joint, 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, Pertinent Past Surgeries: Lumbar interbody fusion L3-4 (2020), Lumbar fusion (2012), Interv al History: Overall pain and functional disability since last visit: Better New Complaints since last visit: No PAIN DESCRIPTION: Timing: Constant Character: Aching, Dull Primary Location: left knee Radiation: lateral thigh and gomez, occasionally low back Exacerbating factors: Standing, Walking Relieving factors: Sitting, Lying Down Interferes with: walking (uses a walker) Pt stating the Left knee injection did not help at all with her pain. States she continues to have pain in her left knee. Patient stating that she feels that the left knee pain is worse than her low back pain. Patient is also stating that she was diagnosed with gout, was given colchicine to help with the gout and she has an upset stomach from the colchicine. Patient stating the low back pain is mostly on the left side low back and will radiate down into her leg. Patient stating that the knee pain is much worse and is interfering with her activities of daily living more than her low back pain. Current Pain Medications: Neuropathics: NSAIDS: Muscle Relaxants: Topicals: Other Prescription or OTC Pain Medications: Opioids (when applicable): Tolerating Medication: N/A Medications helping improve ADL's and Self-care: N/A Anti-depressants or Mood-Stabilizers: None Anti-Coagulants: None Therapies Attended (Current or Most Recent): No Current Therapies 04/17/2023 [facility] SPINE COMBINATION Questionnaire GREENLIGHT Completed Date 04/17/2023 Questionnaire Opiod Risk Tool Completed Date 04/17/2023 Comments 0 No question data found. (All drug screens are appropriate unless indicated otherwise) Notabl e Events During Course of Treatment: History of Present Illness (HPI): 04/15/2023 - Initial HPI (Obtained by Jackson Sumner M.D.). DURATION AND ONSET: The pain complaint has been present for approximately 40 years. The pain had a gradual onset. The mechanism of injury is unknown. RED FLAG SYMPTOMS: denies red flags. She saw her spine surgeon, who advised non-op management. She reports she had low back pain and left lower limb radicular symptoms that responded to surgery both times. She developed new onset low back pain and the left lower limb pain one month ago suddenly. She saw Dr. Gomez in 2012, did TFESI at L2-3 x 2, does not recall results. Current Pain Medications: Neuropathics: Pamelor 75mg qHS for sleep; Lyrica 50mg TID - just started NSAIDS: Naproxen 500mg BID PRN Muscle Relaxants: Topicals: Other Prescription or OTC Pain Medications: ASA 81mg Opioids (when applicable): Percocet - took sparingly, helped a little bit No question data found. Anti-depressants or Mood-Stabilizers: None Anti-Coagulants: None Therapies Attended (Current or Most Recent): No Current Therapies Treatment History: PAIN PROCEDURES: DATE PROCEDURE IMPROVEMENT 05/26/2023 L knee CSI <10 04/30/2023 L TFESI L4-S1 >50% MEDICATIONS Taken TO DATE (for the chief complaint(s)): Neuropathics: Neurontin (Gabapentin), Lyrica (Prebabalin), Pamelor (Nortriptyline), Elavil (Amitriptyline) NSAIDS: Naprosyn (Naproxen), Mobic (Meloxicam) Muscle Relaxants: None Topicals: None Other Prescription or OTC Pain Medications: Aspirin Opioids: Tramadol, Oxycodone (eg Percocet) Data Reviewed Today: Allergies: ALLERGIES Allergen Reactions Sulfa (Sulfonamide * Swelling, Anaphylaxis Tongue/ throat swelled Phenergan Plain Vomiting Vomiting Hydrocodone-Acetami* GI Upset NAUSEA Procardia [Nifedipi* Swelling legs Social History Tobacco Use Smoking status: Never Smokeless tobacco: Never Vaping Use Vaping Use: Never used Substance Use Topics Alcohol use: Yes Alcohol/week: 3.9 standard drinks of alcohol Types: 3 Mixed Drinks per week Comment: 3-4/week Drug use: No 06/16/2023 06/24/2023 INTAKE PAIN ASSESSMENT Are you having pain associated with your visit today? Yes, Provider notified Yes, Provider notified Pain Level 9 10 Pain Location Other: See Comment Other: See Comment Description Aching;Cutting;Sharp Cutting;Radiating;Sharp;Shooting;Stabbing Duration Amount of Time 2 4 Duration Units Months Months Frequency Continuous Continuous Intervention/Comfort measure Medication;Reposition;Distractions;Positioning Medication;Reposition;Heat Comments Leg, knee hip and nkle Right leg and ankle Compliance: PDMP website checked and validated on 06/26/2023 by Aj Graham APRN.[employer] All prescriptions have been APPROPRIATELY filled. No suspicious activity was identified. Percocet 5/325, #15 (04/02/2023, 03/26/2023) 04/17/2023 [facility] COMBINATION Questionnaire GREENLIGHT Completed Date 04/17/2023 Questionnaire Opiod Risk Tool Completed Date 04/17/2023 Comments 0 (All drug screens are appropriate unless indicated otherwise) Risk Assessment: EVI-7: 04/17/2023 EVI - 7 SCORES Score 0 (0-4) minimal anxiety, (5-9) mild anxiety, (10-14) moderate anxiety, (15-21) severe anxiety PHQ-9: 05/19/2013 10/17/2021 04/17/2023 PHQ-9 Score 3 5 0 (0-4) minimal depression, (5-9) mild depression, (10-14) moderate depression, (15-19) moderately severe depression, (20-27) severe depression Opioid Risk Tool: Family History of Substance Abuse: 0 - No Personal History of Substance Abuse: 0 - No Age between 16-45: 0 - No History of Pre-Adolescence Sexual Abuse: 0 - No Psychological Disease: 0 - No Risk Total: 0 Total Score Risk Category: Low Risk 0-3 (0-3, low risk or no risk; 4-7, moderate risk, 8+, high risk) Diagnostic Studies: Relevant Imaging: MRI Spine Report MRI LUMBAR SPINE WO IVCON Exam End: 03/27/2023 1:23 PM (Final result) Narrative: * * *Final Report* * * DATE OF EXAM: Mar 27 2023 1:23PM WRJulio Cesar [id number] - MRI LUMBAR SPINE WO IVCON / PROCEDURE REASON: multiple diagnoses * * * * Physician Interpretation * * * * EXAMINATION: MRI LUMBAR SPINE WO IVCON CLINICAL HISTORY: Radiculopathy of lumbar region Spinal stenosis of lumbar region with neurogenic claudication. TECHNIQUE: Routine lumbosacral spine MR protocol without gadolinium. MQ: [id number] COMPARISON: MRI lumbar spine dated 06/19/2012. Lumbar spine radiographs dated 03/21/2023. RESULT: Counting reference: Lumbosacral junction. For the purposes of this report, L4-5 is considered the level of the iliac crest and assume there are 5 lumbar-type vertebrae. Anatomic variant: None. Localizer images: No additional significant findings. Alignment: Disc space narrowing seen at L3-L4. 2 mm grade 1 retrolisthesis of L2 on L3. 3 mm grade 1 retrolisthesis of L3 on L4. 4 mm grade 1 anterolisthesis of L5 on S1. Bone marrow signal/fracture: Endplate degenerative signal change seen at L2-L3, L4-L5, and L5-S1. Susceptibility artifact from interbody fusion hardware at L3-L4, posterior fusion hardware at L4-L5, and left lateral screws at L3-L4 seen. Laminectomies seen at L3-L5. Conus: The conus is within normal limits of signal intensity and morphology. Paraspinal soft tissues: Disruption of the posterior fat planes at the mid and lower lumbar levels secondary to prior surgery. Lower thoracic spine: Visualized lower thoracic canal and foramina are patent. L1-L2: Minimal bulging annulus. Canal and foramina are patent. L2-L3: Bulging annulus and moderate to severe facet degenerative changes. Moderate to severe canal stenosis. Mild to moderate left and mild right foraminal narrowing. L3-L4: Bulging annulus and moderate facet degenerative change. Mild to moderate canal stenosis and left greater than right subarticular recess narrowing. Moderate bilateral foraminal narrowing. L4-L5: Bulging annulus. Canal is decompressed. Neural foramina are patent. L5-S1: Mild bulging annulus. Moderate facet degenerative changes. Mild to moderate left and mild right foraminal narrowing. Canals patent. Sacrum and iliac wings: Aside from degenerative change at L5-S1, the visualized sacrum and iliac wings are unremarkable. Compared to the prior MRI dated 06/19/2012, fusion hardware is new. Previously seen canal narrowing at L4-L5 has improved. Degenerative changes at other levels, most notably at L2-L3, have progressed. Impression: IMPRESSION: Postoperative changes with hardware and laminectomies at the L3-L5 levels. Multilevel degenerative changes, most significant at L2-L3 where there is moderate to severe canal stenosis (see full level by level discussion above). Otherwise, unremarkable MRI lumbar spine without contrast. Anatomic Lumbar Variant: None. L4-5 is considered the level of the iliac crest and assume there are 5 lumbar-type vertebrae. Ring Facer: PSCB Transcribe Date/Time: Mar 27 2023 1:25P Dictated by : RENEE CRUZ MD This examination was interpreted and the report reviewed and electronically signed by: RENEE CRUZ MD on Mar 27 2023 1:35PM EST X-ray Lumbar 03/2023 RESULT: 5 nonrib-bearing lumbar-type vertebrae. For numbering purposes, L4-5 is at the level of the iliac crest. Pedicle plate and screw device transfixes L4 and L5. No evidence of fracture or loosening. Disc spacer at L3-4 with hardware fixation. Mild grade 1 spondylolisthesis of L4 on L5, and L5 on S1. Moderate to severe disc space narrowing at L2-3 with vacuum phenomenon. Osteopenia. SI joints appear unremarkable IMPRESSION: DEGENERATIVE, POSTOPERATIVE CHANGE AND ALIGNMENT ABNORMALITIES DESCRIBED X-ray Rt. Hip 02/2023 RESULT: Bony mineralization within normal limits. Mild to moderate degenerative narrowing and bony spurring at the right hip joint. No acute fracture or dislocation is seen at the right hip. Lower lumbar fusion hardware from L3 to L5 IMPRESSION: Mild to moderate degenerative change with prominent spurring at the right hip similar to the previous MRI Lumbar 11/2020 Electrodiagnostic Study (EMG): 08/17/2020- Recent Labs: Creatinine Date Value Ref Range Status 04/19/2022 0.84 0.58 - 0.96 mg/dL Final eGFR, Date Value Ref Range Status 11/06/2012 >60 Final No results found for: PCGLUCOSE Current Medications, Past Medical History, Past Surgical History, Family History, Social History and Review of Systems: On today's date, noted above, I have confirmed and edited as necessary, the PFSH and ROS obtained by others. Physical Exam: 06/26/23 1452 Pulse: 90 Resp: 16 SpO2: 98% Physical Exam Vitals reviewed. Constitutional: General: She is not in acute distress. Appearance: She is not ill-appearing. HENT: Head: Normocephalic and atraumatic. Eyes: Conjunctiva/sclera: Conjunctivae normal. Cardiovascular: Pulses: Normal pulses. Pulmonary: Effort: Pulmonary effort is normal. No respiratory distress. Musculoskeletal: Thoracic back: No tenderness or bony tenderness. No scoliosis. Lumbar back: Tenderness present. Decreased range of motion. Positive right straight leg raise test and positive left straight leg raise test. No scoliosis. Left knee: Decreased range of motion. Tenderness present over the LCL and PCL. Comments: Special Tests- Facet Loading: Right-Negative; Left Positive - SI Compression:Positive - ELEUTERIO:Right-Positive ; Left Positive Skin: General: Skin is warm and dry. Neurological: Mental Status: She is alert and oriented to person, place, and time. Gait: Gait abnormal (antalgic). Tandem walk normal. Deep Tendon Reflexes: Reflex Scores: Patellar reflexes are 1+ on the right side and 1+ on the left side. Psychiatric: Mood and Affect: Mood and affect normal. Behavior: Behavior normal. Behavior is cooperative. IMPRESSION: 82 year old female presents with complaint(s) of Low back pain and left knee pain. After assessment patient appears to be suffering from sacroiliac joint pain on the left side and also with left knee pain. Patient reporting she received no relief from the left knee intra-articular steroid injection. Patient is not a surgical candidate per her she does not want to have surgery on her right left knee. We will attempt to manage her pain with the genicular nerve block it was explained to the patient she appears to understand. For the SI joint pain at this point I would like to try physical therapy for her low back and for her SI to see if this will help with this pain if no relief may consider an SI joint injection. Diagnoses: (M17.0) Primary osteoarthritis of both knees (primary encounter diagnosis) (M54.16) Lumbar radiculopathy (M48.061) Spinal stenosis, lumbar region, without neurogenic claudication (M47.816) Lumbar spondylosis (M53.3) Disorder of sacrum PLAN: Spenser Putnam would benefit from the following to reach personal goals for decreasing pain, improving function and work participation, and/or improving quality of life: Medications: Requested Prescriptions No prescriptions requested or ordered in this encounter Continue current medications Interventional Procedures: Genicular Nerve Block (Superior Medial, Inferior Medial, Superior Lateral - Diagnostic only, NO steroids) left leg Studies: None Functional Yarsani: Physical Therapy Consultation (Land-Based) Referrals: No additional considerations at present Follow-up: 2 months Depending on response to the above plan, consider: MBB/RFA, Synvisc One Knee; Genicular blocks/RFA Compliance and Clinic Policies Reviewed and/or Discussed Today: None Attribution: In addition to reviewing the information noted above, some elements copied from my most recent clinical note(s), including the physical exam (completed in entirety today), and the impression and plan sections, have been updated where appropriate. All reflect current medical decision making from today's date. Aj Graham APRN.[facility] * Minnie Delaney MA - 06/26/2023 2:51 PM EDT Review of Systems Constitutional: Negative for activity change, chills, fever and unexpected weight change. Gastrointestinal: Negative for bowel retention or incontinence Genitourinary: Negative for difficulty urinating. Negative for bladder retention or incontinence Musculoskeletal: Positive for arthralgias, back pain, gait problem and myalgias. Negative for jointswelling, neck pain and neck stiffness. Neurological: Negative for weakness, numbness and headaches. Psychiatric/Behavioral: Positive for sleep disturbance. Negative for dysphoric mood and suicidal ideas. The patient is not nervous/anxious. documented in this encounterC[facility]04-18-[facility]24 NoteHNO ID: [id number] Author: AJ GRAHAM APRN.[employer] Service: ? Author Type: Nurse Practitioner Type: Progress Notes Filed: 06/26/2023 17:26 Note Text: [facility] [place] [facility] Today's Date: 06/26/2023 Name: Spenser Putnam : 1940 Purpose: Follow-up Patient Evaluation - This is an established patient, returning today for continued evaluation and management of the chief complaint noted below Chief complaint: Spinal stenosis of lumbar region Referring Clinician: Destini Lay PA-C Pertinent Past Medical History: Insomnia, RLS, Carpal tunnel - left, HLD, HTN, Valvular heart disease, Raynaud's phenomenon, H/O other malignant neoplasm of skin, Lumbar disc herniation, DJD of sternoclavicular joint, 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 States she continues to have pain in her left knee. Patient stating that she feels that the left knee pain is worse than her low back pain. Patient is also stating that she was diagnosed with gout, was given colchicine to help with the gout and she has an upset stomach from the colchicine. Patient stating the low back pain is mostly on the left side low back and will radiate down into her leg. Patient stating that the knee pain is much worse and is interfering with her activities of daily living more than her low back pain. Current Pain Medications: Neuropathics: NSAIDS: Muscle Relaxants: Topicals: Other Prescription or OTC Pain Medications: Opioids (when applicable): Tolerating Medication: N/A Medications helping improve ADL's and Self-care: N/A Anti-depressants or Mood-Stabilizers: None Anti-Coagulants: None Therapies Attended (Current or Most Recent): No Current Therapies 04/17/2023 AG SPINE COMBINATION Questionnaire GREENLIGHT Completed Date 04/17/2023 Questionnaire Opiod Risk Tool Completed Date 04/17/2023 Comments 0 No question data found. (All drug screens are appropriate unless indicated otherwise) Notable Events During Course of Treatment: History of Present Illness (HPI): 04/15/2023 - Initial HPI (Obtained by Jackson Sumnre M.D.). DURATION AND ONSET: The pain complaint has been present for approximately 40 years. The pain had a gradual onset. The mechanism of injury is unknown. RED FLAG SYMPTOMS: denies red flags. She saw her spine surgeon, who advised non-op management. She reports she had low back pain and left lower limb radicular symptoms that responded to surgery both times. She developed new onset low back pain and the left lower limb pain one month ago suddenly. She saw Dr. Gomez in 2012, did TFESI at L2-3 x 2, does not recall results. Current Pain Medications: Neuropathics: Pamelor 75mg qHS for sleep; Lyrica 50mg TID - just started NSAIDS: Naproxen 500mg BID PRN Muscle Relaxants: Topicals: Other Prescription or OTC Pain Medications: ASA 81mg Opioids (when applicable): Percocet - took sparingly, helped a little bit No question data found. Anti-depressants or Mood-Stabilizers: None Anti-Coagulants: None Therapies Attended (Current or Most Recent): No Current Therapies Treatment History: PAIN PROCEDURES: DATE PROCEDURE IMPROVEMENT 05/26/2023 L knee CSI <10 04/30/2023 L TFESI L4-S1 >50% MEDICATIONS Taken TO DATE (for the chief complaint(s)): Neuropathics: Neurontin (Gabapentin), Lyrica (Prebabalin), Pamelor (Nortriptyline), Elavil (Amitriptyline) NSAIDS: Naprosyn (Naproxen), Mobic (Meloxicam) Muscle Relaxants: None Topicals: None Other Prescription or OTC Pain Medications: Aspirin Opioids: Tramadol, Oxycodone (eg Percocet) Data Reviewed Today: Allergies: ALLERGIES Allergen Reactions Sulfa (Sulfonamide * Swelling, Anaphylaxis Tongue/ throat swelled Phenergan Plain Vomiting Vomiting Hydrocodone-Acetami* GI Upset NAUSEA Procardia [Nifedipi* Swelling legs Social History Tobacco Use Smoking status: Never Smokeless tobacco: Never Vaping Use Vaping Use: Never used Substance Use Topics Alcohol use: Yes Alcohol/week: 3.9 standard drinks of alcoh (more content not included)...[facility]04-18-2024 NoteHNO ID: [id number] Author: MINNIE DELANEY MA Service: ? Author Type: Computer Equipment Installer Type: Progress Notes Filed: 06/26/2023 17:26 Note Text: Review of Systems Constitutional: Negative for activity change, chills, fever and unexpected weight change. Gastrointestinal: Negative for bowel retention or incontinence Genitourinary: Negative for difficulty urinating. Negative for bladder retention or incontinence Musculoskeletal: Positive for arthralgias, back pain, gait problem and myalgias. Negative for joint swelling, neck pain and neck stiffness. Neurological: Negative for weakness, numbness and headaches. Psychiatric/Behavioral: Positive for sleep disturbance. Negative for dysphoric mood and suicidal ideas. The patient is not nervous/anxious.[facility]04-16-2024 Miscellaneous Notes* Telephone Encounter - Kelle Joyce MA - 06/24/2023 4:00 PM EDT Patient notified and voiced understanding. Kelle Joyce MA * Telephone Encounter - Juan Spann MD - 06/24/2023 3:46 PM EDT Let patient know I sent in a different med. So if gout related this should help. The following approved medication requests have been transmitted electronically. Requested Prescriptions Signed Prescriptions Disp Refills colchicine 0.6 mg tablet 10 tablet 1 Sig: Take one tab by mouth 3 times a day till pain stops or script finished. Juan Spann MD * Telephone Encounter - Rosalba Clement RN - 06/24/2023 3:21 PM EDT Patient calls back and states that prednisone did not help foot pain at all. Patient reports that she has no pain in the morning but it gets worse in the afternoon/evening. Patient had seen Destini on 06/17/2023 for this. Patients uric acid level was mildly elevated at this time, however inflammatory markers were negative. Patient has been taking aleve which has not helped. Patient asking what else can be done for the pain? Patient had also contacted Dr. Sumner's office who told her that they do not treat gout. Please review and advise, Rosalba Clement RN Answer Assessment - Initial Assessment Questions 1. ONSET: Pain started last week when she was in Office. 2. LOCATION: Left foot/ankle 3. PAIN: Patient's Pain gets close to 10. Patient states that in the morning she is perfectly fine. By earlyafternoon she is in excruciating pain. 4. WORK OR EXERCISE: Denies 5. CAUSE: Gout 6. OTHER SYMPTOMS: Denies Protocols used: Ankle [id number] documented in this encounterC[facility]04-16-2024 Miscellaneous Notes* Telephone Encounter - Derick Lackey MA - 06/24/2023 3:00 PM EDT Patient notified. Voiced understanding. Derick Lackey MA * Telephone Encounter - Jackson Sumner MD - 06/24/2023 12:29 PM EDT We do not treat Gout. She will need to talk with her PCP or whichever clinician is managing her Gout. Jackson Sumner MD * Telephone Encounter - Rosalba Arriaga LPN - 06/24/2023 12:04 PM EDT Patient left a voicemail stating she was diagnosed with having gout in her toe. Patient was prescribed medication for this by a different provider. Patient is complaining of pain ,and states she cannot sleep at night. She is requesting something for pain. Please advise. Rosalba Arriaga LPN documented in this encounterCleveland [facility]04-10-2024 Miscellaneous Notes* Telephone Encounter - Destini Lay PA-C - 06/18/2023 11:23 AM EDT noted * Telephone Encounter - Arabella Frye RN - 06/18/2023 11:03 AM EDT Pt called and is notified of providers results and instructions. Pt voices understanding. 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 Arabella Frye RN * Telephone Encounter - Destini Lay PA-C - 06/18/2023 9:34 AM EDT Her uric acid level is mildly elevated. However her inflammatory markers were negative and typically with gout, I see those elevated. I'm not fully convinced that gout is the cause of her toe pain, but it is possible. Therefore, I am going to place her on a short course of prednisone. Repeat uric acid level in 2 weeks. I'm also going to check a couple other labs at that time Destini Lay PA-C documented in this encounterCleveland [facility]04-09-2024 History of Present illness Narrative* Destini Lay PA-C - 06/17/2023 11:42 AM EDT Chief Complaint Patient presents with: Pain: Left leg down to big toe & lower back, getting worse ~ 1 wk ago HPI Spenser Putnam is a 82 year old female who presents here today for Above Complaints.. Patient with hx of lumbar back pain and has been seeing pain management. Recently had injections and started noticing improvement. However this past week her pain intensified again and is shooting down her left and into her big toe. States the toe is even tender to just ablanket on it. No swelling that she has noticed. Denies hx of gout. Patient states she hasn't contacted pain management yet. Reports her daughter made the appointment with us first. Past medical history, appointments, medications, allergies reviewed. 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 Macias, Rt anterior shoulder, Gilberto III, pT1a, pNX, pM N/A Mixed hyperlipidemia 10/13/2014 Multiple thyroid nodules 09/15/2017 CT neck09/2017 7 mm nodule, US 7.2019 multiple small nodules repeat 09/2019 Non morbid obesity 03/29/2016 Osteopenia, senile 07/02/2005 SEE DEXA 07/15 Other chronic dermatitis due to solar radiation 03/27/2006 Other psoriasis 04/16/2013 Other seborrheic keratosis 06/23/2006 Personal history of other malignant neoplasm of skin 03/22/2013 Raynaud's phenomenon without gangrene 06/07/2020 suspected Restless leg syndrome Sensorineural hearing loss, asymmetrical 10/08/2017 Solar lentigo 03/22/2013 Spondylolisthesis at L5-S1 level 10/20/2012 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 09/15/2012 Vertigo 12/03/2021 MRI normal and patient declined further eval as of 12/03/21 Vitamin D deficiency 08/24/2016 Xerosis cutis 03/22/2013 Previous Surgical History PAST SURGICAL HISTORY Procedure Laterality Date ABDOMINAL SURGERY HX BACK SURGERY HX 01/23/2021 lateral lumbar interbody fusion L3-4 CHOLECYSTECTOMY age 52 +/- laparoscopic cholecystectomy COLONOSCOPY 04/29/2013 Dr. Patton, repeat 5 yrs COLONOSCOPY FLX DX W/COLLJ SPEC WHEN PFRMD 07/09/2006 COLONOSCOPY FLX DX W/COLLJ SPEC WHEN PFRMD 04/29/2013 internal hemorrhoids, q5y for FHx COLONOSCOPY, GI 05/02/2000 FHx, repeat q5y DILATION & CURETTAGE DX&/THER NONOBSTETRIC Dilation & curettage EYE SURGERY HX PAST SURGICAL HISTORY OF 12/2011 squamous cell CA rt hand.left LE PAST SURGICAL HISTORY OF 04/2012 rt CTR-- endoscopic PAST SURGICAL HISTORY OF 2012 lumbar surgery- fusion PAST SURGICAL HISTORY OF 2013 excision melanoma right shoulder PAST SURGICAL HISTORY OF Right 2017 bunionectoy TONSILLECTOMY HX TONSILLECTOMY PRIMARY/SECONDARY <AGE 12 childhood Tonsillectomy Family History FAMILY HISTORY Problem Relation Age of Onset Colon Cancer Mother ~70 Hypertension Mother Thyroid Mother Colon Cancer Father ~70 Hypertension Father Stroke Father Heart Father Hx of CHF Coronary Artery Disease Maternal Grandmother Hx of HI Diabetes Daughter Type I Patient Allergies ALLERGIES Allergen Reactions Sulfa (Sulfonamide * Swelling, Anaphylaxis Tongue/ throat swelled Phenergan Plain Vomiting Vomiting Hydrocodone-Acetami* GI Upset NAUSEA Procardia [Nifedipi* Swelling legs Current Medications Current Outpatient Medications on File Prior to Visit Medication Sig rOPINIRole (REQUIP) 3 mg tablet Take 1 tablet by mouth daily at bedtime. lisinopril (ZESTRIL) 20 mg tablet Take 1 tablet by mouth once daily. pravastatin (PRAVACHOL) 20 mg tablet Take 1 tablet by mouth daily at bedtime. potassium chloride 20 mEq TbER Take 1 tablet by mouth two times a day. spironolactone (ALDACTONE) 50 mg tablet Take 1 tablet by mouth once daily. nortriptyline (PAMELOR) 75 mg capsule Take 1 capsule by mouth daily at bedtime. ammonium lactate (LAC-HYDRIN) 12 % cream Apply to affected area as needed. aspirin, enteric coated (ADULT LOW DOSE ASPIRIN) 81 mg EC tablet Take 1 tablet by mouth once daily. calcium carbonate(CALTRATE 600 600 MG (1,500 MG) TAB) methylPREDNISolone (MEDROL, GLENNA,) 4 mg Dose-Pack As Instructed per package (Patient not taking: Reported on 06/17/2023) pregabalin (LYRICA) 50 mg capsule Take 50 mg by mouth three times a day. (Patient not taking: Reported on 06/17/2023) naproxen (NAPROSYN) 500 mg tablet Take 1 tablet by mouth two times a day as needed (for pain/inflammation). Take with food. (Patient not taking: Reported on 06/17/2023) DAILY MULTIVITAMIN TAB Take one(1) tablet daily. (Patient not taking: Reported on 06/17/2023) No current facility-administered medications on file prior to visit. Social History Social History Tobacco Use Smoking status: Never Smokeless tobacco: Never Vaping Use Vaping Use: Never used Substance Use Topics Alcohol use: Yes Alcohol/week: 3.9 standard drinks of alcohol Types: 3 Mixed Drinks per week Comment: 3-4/week Drug use: No Review of Symptoms REVIEW OF SYSTEMS See hpi EXAM: BP 118/68 (BP Site: Left Arm, BP Position: Sitting, BP Cuff Size: Regular Adult) Pulse 92 Temp 36.7 C (98 F) (Right Tympanic) Resp 16 Wt 68 kg (150 lb) SpO2 98% BMI 27.66 kg/m General Appearance: Well appearing, alert, in no acute distress, well-hydrated, well nourished.. Extremities: No deformities, edema, skin discoloration, clubbing or cyanosis. Good capillary refill. . Peripheral Pulses: Normal. MSK: left big toe tender to palp but know swelling, erythema or warmth noted. Health Maintenance List RSV Vaccine(1 - 1-dose 60+ series) Never done DTaP,Tdap,Td Vaccine(2 - Tdap) due on 07/23/2023 Shingrix Vaccine(3 of 3) due on 07/23/2023 Diabetes Screening due on 04/19/2025 Bone Density Screening Completed Influenza Vaccine Completed Behavioral Health Screening Completed Covid-19 Vaccine Completed Pneumococcal Vaccine: 65+ Completed HPV Vaccine Aged Out Colorectal Cancer Screening Discontinued Advance Directive Discussion Discontinued Data reviewed ASSESSMENT/PLAN: 1. Great toe pain, left - ICD9: 729.5, ICD10: M79.675 (primary diagnosis) Unclear etiology. May be related to sciatica from back Gout is part of DDx but physical exam does not appear as classic gout. Will check labs. Advised patient to follow up with pain management - URIC ACID BLOOD - SED RATE WESTERGREN - C-REACTIVE PROTEIN (CRP) 2. Candidiasis of skin - ICD9: 112.3, ICD10: B37.2 - NYSTATIN 100,000 UNIT/GRAM TOPICAL CREAM 3. Spinal stenosis of lumbar region, unspecified whether neurogenic claudication present - ICD9: 724.02, ICD10: M48.061 Patient advised to follow up with pain management and make them aware of new symptoms. Destini Lay PA-C documented in this encounterC[facility]03-20-2024 Miscellaneous Notes* Telephone Encounter - Ashutosh Vnace LPN - 05/28/2023 2:10 PM EDT Spoke with patient following up from procedure. Patient states they are doing well, no questions orconcerns at this time. Ashutosh Vance LPN documented in this encounterCleveland [facility]03-18-2024 Nurse Note* Malika Jones LPN - 05/26/2023 8:59 AM EDT Order has been placed in the patient's chart with the following parameters for discharge from the physician: Patient is alert and oriented Vitals: Diastolic/Systolic +/- 20mmHg Respirations: 12-18 Pulse: 60-100 SpO2 is greater than or equal to 90% Patient has no nausea or vomiting Patient has no dizziness Pain level is +/- 2 from initial evaluation Dressing, dry and intact with no evidence of bleeding Criteria has been met, patient is okay to be discharged per the physician. Physician has gone in and evaluated the patient. Dressing dry and intact. No drainage noted. The patient denies nausea, numbness, tingling, weakness, shortness of breath, dizziness, or headache. Pain level 8/10. Vital signs within normal limits. Patient denied needing walked out by clinical staff and denied needing a wheelchair. Patient given discharge instructions and sent to transportation via ambulatory method. Patient left in good condition. * Meg Chaudhary LPN - 05/26/2023 8:31 AM EDT Procedure to be performed: LEFT KNEE STEROID INJECTION Patient was wheeled on stretcher from pre op bay to procedure room and assisted onto the procedure tablePatient s procedure was performed in an [facility] Procedure room. Pause completed at each level by provider to verify correct level and laterality placement Pressure was applied to patient s injection site(s) and bleeding was minimal. Patient had no complaint of shortness of breath, dizziness, headache, numbness, tingling, weakness or complications from procedure. Patient was assisted from the procedure table onto the stretcher and wheeled into a post op bay. Patient was advised a clinician will be to obtain another set of vitals. Time Out: 0850 Confirmed patient name, date of , procedure site, laterality, and allergies Procedure Start: 852 Procedure End: 08 * Maddy Doty LPN - 05/26/2023 8:27 AM EDT Supervisor [employer]'s Name: larry Are you on a blood thinner: n If yes, is a hold required: n Last dose of blood thinner: n INR Result today: n Do you require a Lovenox bridge:n Are you a diabetic:n Are you/or could you be : n Are you taking Xanax for the procedure: n Are you currently on a steroid? n Are you currently on an antibiotic: n Have you had a COVID-19 vaccine in the last 14 days Or are you scheduled to receive one? n documented in this encounterCleveland [facility]24 NoteHNO ID: [id number] Author: JACKSON SUMNER MD Service: ? Author Type: Physician Type: Progress Notes Filed: 05/26/2023 09:32 Note Text: [facility] Patient name: Spenser Putnam Date of : 1940 Today's date: 05/26/2023 Purpose: Ultrasound-guided injection Rate Setter: Jackson Sumner M.D. M.B.A Diagnosis: (M17.0) Primary osteoarthritis of both knees (primary encounter diagnosis) Procedure: Knee Joint Injection (Steroid) under ultrasound guidance LEFT-SIDED Injectate: A total of 5 ml volume was injected The injectate consisted of: 1 ml of Depo-Medrol (40mg/ml), The remainder consisting of 2% Lidocaine Comments: None HPI: Spenser Putnam is an 82 year old FEMALE who presents today, in pain, for the procedure noted above. Review of Systems: Pertinent Positives: MSK: pain in the region being treated Neuro: weakness or numbness in the region being treated (unless otherwise noted) Skin: Negative (No itching) Eyes: Negative (No blurred or double vision) Respiratory: Negative (No Cough, [id number], Dyspnea on exertion, wheezing) Cardiovascular: Negative (No Chest Pain, Tightness, Pressure, Palpitations) Gastrointestinal: Negative (No Abdominal pain, Nausea, Vomiting, Constipation, Diarrhea) Genitourinary: Negative (No dysuria) Hematologic: Negative (No bleeding, bruising) OB: is Denied or Not Applicable Endocrine: Negative (No hot/cold intolerance) Psychiatric: Negative (No depression, anxiety or suicidal ideation) 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 Arthrodesis status 2012 Bilateral leg edema 07/02/2005 Carpal tunnel syndrome, left 08/17/2020 NCS 08/2020: mild 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 Macias, Rt anterior shoulder, Gilberto III, pT1a, pNX, pM N/A Mixed hyperlipidemia 10/13/2014 Multiple thyroid nodules 09/15/2017 CT neck09/2017 7 mm nodule, US 7.2019 multiple small nodules repeat 09/2019 Non morbid obesity 03/29/2016 Osteopenia, senile 07/02/2005 SEE DEXA 07/15 Other chronic dermatitis due to solar radiation 03/27/2006 Other psoriasis 04/16/2013 Other seborrheic keratosis 06/23/2006 Personal history of other malignant neoplasm of skin 03/22/2013 Raynaud's phenomenon without gangrene 06/07/2020 suspected Restless leg syndrome Sensorineural hearing loss, asymmetrical 10/08/2017 Solar lentigo 03/22/2013 Spondylolisthesis at L5-S1 level 10/20/2012 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 09/15/2012 Vertigo 12/03/2021 MRI normal and patient declined further eval as of 12/03/21 Vitamin D deficiency 08/24/2016 Xerosis cutis 03/22/2013 PAST SURGICAL HISTORY Procedure Laterality Date ABDOMINAL SURGERY HX BACK SURGERY HX 01/23/2021 lateral lumbar interbody fusion L3-4 CHOLECYSTECTOMY age 52 +/- laparoscopic cholecystectomy COLONOSCOPY 04/29/2013 Dr. Patton, repeat 5 yrs COLONOSCOPY FLX DX W/COLLJ SPEC WHEN PFRMD 07/09/2006 COLONOSCOPY FLX DX W/COLLJ SPEC WHEN PFRMD 04/29/2013 internal hemorrhoids, q5y for FHx COLONOSCOPY, GI 05/02/2000 FHx, repeat q5y DILATION AND CURETTAGE DXAND/THER NONOBSTETRIC Dilation AND curettage EYE SURGERY HX PAST SURGICAL HISTORY OF 12/2011 squamous cell CA rt hand.left LE PAST SURGICAL HISTORY OF 04/2012 rt CTR-- endoscopic PAST SURGICAL HISTORY OF 2012 lumbar surgery- fusion PAST SURGICAL HISTORY OF 2013 excision melanoma right shoulder PAST SURGICAL HISTORY OF Right 2017 bunionectoy TONSILLECTOMY HX TONSILLECTOMY PRIMARY/SECONDARY Tonsillectomy FAMILY HISTORY Problem Relation Age of Onset Colon Cancer Mother ~70 Hypertension Mother Thyroid Mother Colon Cancer Father ~70 Hypertension Father Stroke Father Heart Father Hx of CHF Coronary Artery Disease Maternal Grandmother Hx of HI Diabetes Daughter Type I Social History Tobacco Use Smoking status: Never Smokeless tobacco: Never Vaping Use Vaping Use: Never used Substance Use Topics Alcohol use: Yes Alcohol/week: 3.9 standard drinks of alcohol Types: 3 Mixed Drinks per week Comment: 3-4/week Drug use: No Current Outpatient Medications on File Prior to Visit Medication Sig rOPINIRole (REQUIP) 3 mg tablet Take 1 tablet by mouth daily at bedtime. methylPREDNISolone (MEDROL, GLENNA,) 4 mg Dose-Pack As Instructed per package lisinopril (ZESTRIL) 20 mg tablet Take 1 tablet by mouth once d (more content not included)...[facility]03-18-2024 History of Present illness Narrative* Jackson Sumner MD - 05/26/2023 8:44 AM EDT [facility] Patient name: Spenser Putnam Date of : 1940 Today's date: 05/26/2023 Purpose: Ultrasound-guided injection Rate Setter: Jackson Sumner M.D., M.B.A Diagnosis: (M17.0) Primary osteoarthritis of both knees (primary encounter diagnosis) Procedure: Knee Joint Injection (Steroid) under ultrasound guidance LEFT-SIDED Injectate: A total of 5 ml volume was injected The injectate consisted of: 1 ml of Depo-Medrol (40mg/ml), The remainder consisting of 2% Lidocaine Comments: None HPI: Spenser Putnam is an 82 year old FEMALE who presents today, in pain, for the procedure noted above. Review of Systems: Pertinent Positives: MSK: pain in the region being treated Neuro: weakness or numbness in the region being treated (unless otherwise noted) Skin: Negative (No itching) Eyes: Negative (No blurred or double vision) Respiratory: Negative (No Cough, [id number]-xf-bwlrth, Dyspnea on exertion, wheezing) Cardiovascular: Negative (No Chest Pain, Tightness, Pressure, Palpitations) Gastrointestinal: Negative (No Abdominal pain, Nausea, Vomiting, Constipation, Diarrhea) Genitourinary: Negative (No dysuria) Hematologic: Negative (No bleeding, bruising) OB: is Denied or Not Applicable Endocrine: Negative (No hot/cold intolerance) Psychiatric: Negative (No depression, anxiety or suicidal ideation) 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 Arthrodesis status 2012 Bilateral leg edema 07/02/2005 Carpal tunnel syndrome, left 08/17/2020 NCS 08/2020: mild 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 Macias, Rt anterior shoulder, Gilberto III, pT1a, pNX, pM N/A Mixed hyperlipidemia 10/13/2014 Multiple thyroid nodules 09/15/2017 CT neck09/2017 7 mm nodule, US .2018 multiple small nodules repeat 09/2019 Non morbid obesity 03/29/2016 Osteopenia, senile 07/02/2005 SEE DEXA 07/15 Other chronic dermatitis due to solar radiation 03/27/2006 Other psoriasis 04/16/2013 Other seborrheic keratosis 06/23/2006 Personal history of other malignant neoplasm of skin 03/22/2013 Raynaud's phenomenon without gangrene 06/07/2020 suspected Restless leg syndrome Sensorineural hearing loss, asymmetrical 10/08/2017 Solar lentigo 03/22/2013 Spondylolisthesis at L5-S1 level 10/20/2012 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 09/15/2012 Vertigo 12/03/2021 MRI normal and patient declined further eval as of 12/03/21 Vitamin D deficiency 08/24/2016 Xerosis cutis 03/22/2013 PAST SURGICAL HISTORY Procedure Laterality Date ABDOMINAL SURGERY HX BACK SURGERY HX 01/23/2021 lateral lumbar interbody fusion L3-4 CHOLECYSTECTOMY age 52 +/- laparoscopic cholecystectomy COLONOSCOPY 04/29/2013 Dr. Patton, repeat 5 yrs COLONOSCOPY FLX DX W/COLLJ SPEC WHEN PFRMD 07/09/2006 COLONOSCOPY FLX DX W/COLLJ SPEC WHEN PFRMD 04/29/2013 internal hemorrhoids, q5y for FHx COLONOSCOPY, GI 05/02/2000 FHx, repeat q5y DILATION & CURETTAGE DX&/THER NONOBSTETRIC Dilation & curettage EYE SURGERY HX PAST SURGICAL HISTORY OF 12/2011 squamous cell CA rt hand.left LE PAST SURGICAL HISTORY OF 04/2012 rt CTR-- endoscopic PAST SURGICAL HISTORY OF 2013 lumbar surgery- fusion PAST SURGICAL HISTORY OF 2014 excision melanoma right shoulder PAST SURGICAL HISTORY OF Right 2017 bunionectoy TONSILLECTOMY HX TONSILLECTOMY PRIMARY/SECONDARY <AGE 12 childhood Tonsillectomy FAMILY HISTORY Problem Relation Age of Onset Colon Cancer Mother ~70 Hypertension Mother Thyroid Mother Colon Cancer Father ~70 Hypertension Father Stroke Father Heart Father Hx of CHF Coronary Artery Disease Maternal Grandmother Hx of HI Diabetes Daughter Type I Social History Tobacco Use Smoking status: Never Smokeless tobacco: Never Vaping Use Vaping Use: Never used Substance Use Topics Alcohol use: Yes Alcohol/week: 3.9 standard drinks of alcohol Types: 3 Mixed Drinks per week Comment: 3-4/week Drug use: No Current Outpatient Medications on File Prior to Visit Medication Sig rOPINIRole (REQUIP) 3 mg tablet Take 1 tablet by mouth daily at bedtime. methylPREDNISolone (MEDROL, GLENNA,) 4 mg Dose-Pack As Instructed per package lisinopril (ZESTRIL) 20 mg tablet Take 1 tablet by mouth once daily. pregabalin (LYRICA) 50 mg capsule Take 50 mg by mouth three times a day. pravastatin (PRAVACHOL) 20 mg tablet Take 1 tablet by mouth daily at bedtime. naproxen (NAPROSYN) 500 mg tablet Take 1 tablet by mouth two times a day as needed (for pain/inflammation). Take with food. potassium chloride 20 mEq TbER Take 1 tablet by mouth two times a day. spironolactone (ALDACTONE) 50 mg tablet Take 1 tablet by mouth once daily. nortriptyline (PAMELOR) 75 mg capsule Take 1 capsule by mouth daily at bedtime. ammonium lactate (LAC-HYDRIN) 12 % cream Apply to affected area as needed. aspirin, enteric coated (ADULT LOW DOSE ASPIRIN) 81 mg EC tablet Take 1 tablet by mouth once daily. calcium carbonate(CALTRATE 600 600 MG (1,500 MG) TAB) DAILY MULTIVITAMIN TAB Take one(1) tablet daily. No current facility-administered medications on file prior to visit. Objective Exam: Vitals: As per nursing documentation Constitutional: Normal Appearance, Oriented to Time, Place and Person Head: No lacerations, no external signs of trauma Eyes: Conjunctiva clear. No discharge from the eyes Cardiovascular: Appears well-perfused Pulmonary: Non-labored respirations Abdominal: Non-distended Skin: No visible rashes or ecchymosis Psychiatric: Mood appropriate for given condition Neurological: Gross movements are limited by pain, but otherwise unremarkable Data Reviewed: Nursing note and vitals reviewed. Additional imaging reviewed as appropriate Assessment and Plan: As noted above [place] protocol documentation / Pre-Procedure Checklist: Consent: Obtained in writing prior to procedure I had a nice discussion with the patient today about their current pain and the pathology that could be causing it We discussed different treatment options, including risks, benefits and alternatives. We agreed to proceed as previously discussed, or the plan was modified in accordance with the comments noted above Unless stated otherwise in the procedure note, the risks include but are not limited to infection, allergic reaction, increased pain, lack of therapeutic benefit, steroid reaction, nerve damage, paralysis, stroke, epidural hematoma, syncope, headache, respiratory or cardiac arrest, pneumothorax, and scar formation Once the plan was agreed upon, the patient gave written consent to proceed and was transported intothe procedure room Surgical/Procedure pause or Time Out : Time Out was led by the physician in the procedure room, with the patient and all staff present andparticipating The following information was verified during the Time Out process: Patient name, patient date of , procedure site (marked), laterality, anticoagulants and allergies ID verified by two sources: Name and Site(s) marked: yes Position: as per procedure note Consent: obtained verbally prior to procedure Allergies reviewed and verified with patient: yes Recent History and Physical: available Relevant images: available Surgical/Procedure pause: yes Other pre-procedural information: given Patient concurs: yes Team present and concurs: yes Static views were obtained using a 2-5 Hz Curvilinear Probe After identifying the region mentioned above, the patient was positioned supine. The area was prepped in aseptic fashion with Chloraprep. Doppler imaging was utilized to verify no major vessels in the anticipated needle trajectory. Using a 27 gauge, 1 inch needle, 1cc of 1% Lidocaine was injected beneath the skin, and a wheal was raised. Subsequently, at this site, a 22 gauge, 3.5 inch needle wasdirected into the above-mentioned target area utilizing real-time ultrasound guidance. The injection was completed under real-time ultrasound guidance, with the medication noted above was injected slowly and with consistent pressure. The injected medication was visualized in its intended position. Where appropriate, there was distention of the involved joint and/or bursa. The needle was then removed. The remainder of the single use vials were wasted. The patient tolerated the procedure without difficulty and was instructed on post-injection care. Pre- and post-injection pictures, as well as pictures of any relevant findings, were obtained and saved for purposes of documentation. Patient was advised to watch for any signs of infection in the area of the injection (redness, streaky appearance of skin, etc.) and call the office immediately for treatment if those symptoms develop. The patient was instructed to follow-up with the requesting physician. Jackson Sumner MD [facility] * Maddy Doty LPN - 05/26/2023 8:31 AM EDT Review of Systems Constitutional: Positive for activity change. Negative for chills, fever and unexpected weight change. Genitourinary: Negative for difficulty urinating. Musculoskeletal: Positive for gait problem. Negative for arthralgias, back pain, joint swelling, myalgias, neck pain and neck stiffness. Neurological: Positive for weakness. Negative for numbness and headaches. Psychiatric/Behavioral: Positive for sleep disturbance. Negative for dysphoric mood and suicidal ideas. The patient is not nervous/anxious. documented in this encounterC[facility]03-18-[facility]24 Instructions* Patient Instructions* Malika Jones LPN - 05/26/2023 8:38 AM EDT PROCEDURE DISCHARGE INSTRUCTIONS 05/26/2023 Spenser [place] 1940 Physician: Jackson Sumner MD Procedure: LEFT KNEE INJECTION Post Procedure Instructions: If sedation not given, no driving for 3 hours after the procedure., Rest the day of the procedure.,You may resume normal activities the day after the procedure, as tolerated., Pain should gradually subside over the next 2-3 weeks., Avoid movements that may aggravate pain., Apply cold compresses toinjection site if needed., If medically acceptable, take over the counter anti-inflammatories such as ibuprofen or Aleve if needed for post procedure discomfort., and No hot baths, hot tubs or hot compresses for 24 hours. If you have any of the following signs or symptoms, please call our office at Fever and/or chills Swelling and/or drainage from injection site New pain that is different than your normal pain (other than soreness at the site of the procedure) Stiff neck Shortness of breath Severe increase in pain Motor dysfunctions, such as difficulty walking, bowel or bladder dysfunction and/or incontinence Headache that is severe, light sensitive or develops when changing positions (positional headache) Nausea and/or vomiting accompanied by headache that started 24-48 hours after the procedure If you have any emergent concerns, please call 911 or go to your local emergency room. Please also contact our office to let us know you will be seeking emergency care and why. documented in this encounterCleveland [facility]03-18-2024 NoteHNO ID: [id number] Author: MADDY DOTY LPN Service: ? Author Type: LICENSED NURSE Type: Progress Notes Filed: 05/26/2023 08:32 Note Text: Review of Systems Constitutional: Positive for activity change. Negative for chills, fever and unexpected weight change. Genitourinary: Negative for difficulty urinating. Musculoskeletal: Positive for gait problem. Negative for arthralgias, back pain, joint swelling, myalgias, neck pain and neck stiffness. Neurological: Positive for weakness. Negative for numbness and headaches. Psychiatric/Behavioral: Positive for sleep disturbance. Negative for dysphoric mood and suicidal ideas. The patient is not nervous/anxious.[facility]03-[facility] Miscellaneous Notes* Telephone Encounter - Kelle Joyce MA - 05/19/2023 8:48 AM EDT Patient has been identified by name and date of : Yes, Provider Dr Spann Date 05/19/2023 Time8:48 am Requested Prescriptions Pending Prescriptions Disp Refills rOPINIRole (REQUIP) 3 mg tablet 90 tablet 1 Sig: Take 1 tablet by mouth daily at bedtime. RX INSTRUCTIONS: Patient aware RX will be sent to pharmacy. No need to notify patient. Kelle Joyce MA Trudy 03/2023 Nov 09/2023 Last refill: 10/2022 documented in this encounterCleveland [facility]03-04-2024 Miscellaneous Notes* Addendum Note - Jackson Sumner MD - 05/12/2023 12:16 PM ESTAddended by: JACKSON SUMNER on: 05/12/2023 12:16 PM Modules accepted: Orders * Telephone Encounter - Jackson Sumner MD - 05/12/2023 12:14 PM EST I am sending a steroid pack into the pharmacy for her. It may take a few days to have an effect on her pain. If this does not help, or if she cannot stand the pain, she has the option to present to the ED for an acute workup. Jackson Sumner III, MD, [facility]ONNIE * Telephone Encounter - Nya Doty - 05/12/2023 10:45 AM EST Patient has called in and stated that she is in horrible pain on her left side going down to her toes. Patient is asking for something to help the pain before her next procedure on 05/26/23. Patient has stated that she has been taking Lyrica 25mg 3 times a day. Patient does not want to go to the ED. Please advise. Nya Doty documented in this encounterCleveland Clinic [facility]03-01-2024 Miscellaneous Notes* Telephone Encounter - Dandy Chery LPN - 05/09/2023 9:58 AM EST Patient has been identified by name and date of : Yes Patient phones for refill(s): Requested Prescriptions Pending Prescriptions Disp Refills spironolactone (ALDACTONE) 50 mg tablet 30 tablet 5 Sig: Take 1 tablet by mouth once daily. Date of last office visit in primary care: 03/13/2023 Date of next office visit in primary care: 09/17/2023 *Last rx written 02/25/23 #30 with 5 refills, not due for refill. Pt advised to contact pharmacy for refills. Please advise. Thank you. Dandy Chery LPN. documented in this encounterCleveland Clinic [facility]02-23-2024 Miscellaneous Notes* Telephone Encounter - Liudmila Ta MA - 05/02/2023 3:46 PM EST Spoke with patient following up from procedure. Patient states they are doing well, no questions orconcerns at this time. Liudmila Ta MA documented in this encounterCleveland Clinic [facility]02-22-2024 Miscellaneous Notes* Telephone Encounter - Juan Spann MD - 05/01/2023 11:23 AM EST The following approved medication requests have been transmitted electronically. Requested Prescriptions Signed Prescriptions Disp Refills lisinopril (ZESTRIL) 20 mg tablet 90 tablet 1 Sig: Take 1 tablet by mouth once daily. Authorizing Provider: JUAN SPANN MD * Telephone Encounter - Mariano Adan Ma - 05/01/2023 11:10 AM EST Requested Prescriptions Pending Prescriptions Disp Refills lisinopril (ZESTRIL) 20 mg tablet 90 tablet 1 Sig: Take 1 tablet by mouth once daily. Date of last office visit in primary care: 03/13/2023 Date of next office visit in primary care: 09/17/2023 Please advise. Thank you. Mariano Adan Ma. documented in this encounterCleveland [id number] Instructions* Patient Instructions* Maddy Doty LPN - 04/30/2023 3:47 PM EST PROCEDURE DISCHARGE INSTRUCTIONS 04/30/2023 Spenser Putnam 1940 Physician: Jackson Sumner MD Procedure: Epidural Steroid Injection: Lumbar (transforaminal/Interlaminar/Caudal) Post Procedure Instructions: If sedation not given, no driving for 3 hours after the procedure., Rest the day of the procedure.,You may resume normal activities the day after the procedure, as tolerated., Pain should gradually subside over the next 2-3 weeks., Avoid movements that may aggravate pain., Apply cold compresses toinjection site if needed., If medically acceptable, take over the counter anti-inflammatories such as ibuprofen or Aleve if needed for post procedure discomfort., No hot baths, hot tubs or hot compresses for 24 hours., and Increased pain the day after the procedure may occur. If you have any of the following signs or symptoms, please call our office at Fever and/or chills Swelling and/or drainage from injection site New pain that is different than your normal pain (other than soreness at the site of the procedure) Stiff neck Shortness of breath Severe increase in pain Motor dysfunctions, such as difficulty walking, bowel or bladder dysfunction and/or incontinence Headache that is severe, light sensitive or develops when changing positions (positional headache) Nausea and/or vomiting accompanied by headache that started 24-48 hours after the procedure If you have any emergent concerns, please call 911 or go to your local emergency room. Please also contact our office to let us know you will be seeking emergency care and why. documented in this encounterCleveland Clinic [facility]02-21-2024 History of Present illness Narrative* Maddy Doty LPN - 04/30/2023 3:43 PM EST Order has been placed in the patient's chart with the following parameters for discharge from the physician: Patient is alert and oriented Vitals: Diastolic/Systolic +/- 20mmHg Respirations: 12-18 Pulse: 60-100 SpO2 is greater than or equal to 90% Patient has no nausea or vomiting Patient has no dizziness Pain level is +/- 2 from initial evaluation Dressing, dry and intact with no evidence of bleeding Criteria has been met, patient is okay to be discharged per the physician. Physician has gone in and evaluated the patient. Dressing dry and intact. No drainage noted. The patient denies nausea, numbness, tingling, weakness, shortness of breath, dizziness, or headache. Pain level 0/10. Vital signs within normal limits. Patient denied needing walked out by clinical staff and denied needing a wheelchair. Patient given discharge instructions and sent to transportation via ambulatory method. Patient left in good condition. * Ashutosh Vance LPN - 04/30/2023 3:08 PM EST Review of Systems Constitutional: Positive for activity change. Negative for chills, fever and unexpected weight change. Gastrointestinal: Negative for bowel retention or incontinence Genitourinary: Negative for difficulty urinating. Negative for bladder retention or incontinence Musculoskeletal: Positive for arthralgias, back pain and gait problem. Negative for joint swelling,myalgias, neck pain and neck stiffness. Neurological: Negative for weakness, numbness and headaches. Psychiatric/Behavioral: Negative for dysphoric mood, sleep disturbance and suicidal ideas. The patient is not nervous/anxious. * Jackson Sumner MD - 04/30/2023 3:05 PM EST [facility] Date: 04/30/2023 Patient name: Spenser Putnam Physician performing procedure: Jackson Sumner M.D., M.B.A. Diagnosis: (M54.16) Lumbar radiculopathy (primary encounter diagnosis) (M48.061) Spinal stenosis, lumbar region, without neurogenic claudication Procedure: Epidural Steroid Injection - Transforaminal Approach (TFESI) under fluoroscopic guidance LEFT-SIDEDat L4-5 and S1 Injectate: A total of 6 ml volume was injected The injectate consisted of: 1.5 ml of Dexamethasone (10mg/ml), The remainder consisting of Normal Saline, . Each site received equal volumes of this injectate. Comments: Oblique to about 45' for L4-5 given presence of bone grafts Improvement after today's procedure: as per nursing report HPI: Spenser Putnam is an 82 year old FEMALE who presents today, in pain, for the procedure noted above. Review of Systems: Pertinent Positives: MSK: pain in the region being treated Neuro: weakness or numbness in the region being treated (unless otherwise noted) Skin: Negative (No itching) Eyes: Negative (No blurred or double vision) Respiratory: Negative (No Cough, [id number]-[id number], Dyspnea on exertion, wheezing) Cardiovascular: Negative (No Chest Pain, Tightness, Pressure, Palpitations) Gastrointestinal: Negative (No Abdominal pain, Nausea, Vomiting, Constipation, Diarrhea) Genitourinary: Negative (No dysuria) Hematologic: Negative (No bleeding, bruising) OB: is Denied or Not Applicable Endocrine: Negative (No hot/cold intolerance) Psychiatric: Negative (No depression, anxiety or suicidal ideation) 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 Arthrodesis status 2012 Bilateral leg edema 07/02/2005 Carpal tunnel syndrome, left 08/17/2020 NCS 08/2020: mild 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 Macias, Rt anterior shoulder, Gilberto III, pT1a, pNX, pM N/A Mixed hyperlipidemia 10/13/2014 Multiple thyroid nodules 09/15/2017 CT neck09/2017 7 mm nodule, US .2018 multiple small nodules repeat 09/2019 Non morbid obesity 03/29/2016 Osteopenia, senile 07/02/2005 SEE DEXA 07/15 Other chronic dermatitis due to solar radiation 03/27/2006 Other psoriasis 04/16/2013 Other seborrheic keratosis 06/23/2006 Personal history of other malignant neoplasm of skin 03/22/2013 Raynaud's phenomenon without gangrene 06/07/2020 suspected Restless leg syndrome Sensorineural hearing loss, asymmetrical 10/08/2017 Solar lentigo 03/22/2013 Spondylolisthesis at L5-S1 level 10/20/2012 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 09/15/2012 Vertigo 12/03/2021 MRI normal and patient declined further eval as of 12/03/21 Vitamin D deficiency 08/24/2016 Xerosis cutis 03/22/2013 PAST SURGICAL HISTORY Procedure Laterality Date ABDOMINAL SURGERY HX BACK SURGERY HX 01/23/2021 lateral lumbar interbody fusion L3-4 CHOLECYSTECTOMY age 52 +/- laparoscopic cholecystectomy COLONOSCOPY 04/29/2013 Dr. Patton, repeat 5 yrs COLONOSCOPY FLX DX W/COLLJ SPEC WHEN PFRMD 07/09/2006 COLONOSCOPY FLX DX W/COLLJ SPEC WHEN PFRMD 04/29/2013 internal hemorrhoids, q5y for FHx COLONOSCOPY, GI 05/02/2000 FHx, repeat q5y DILATION & CURETTAGE DX&/THER NONOBSTETRIC Dilation & curettage EYE SURGERY HX PAST SURGICAL HISTORY OF 12/2011 squamous cell CA rt hand.left LE PAST SURGICAL HISTORY OF 04/2012 rt CTR-- endoscopic PAST SURGICAL HISTORY OF 2012 lumbar surgery- fusion PAST SURGICAL HISTORY OF 2014 excision melanoma right shoulder PAST SURGICAL HISTORY OF Right 2017 bunionectoy TONSILLECTOMY HX TONSILLECTOMY PRIMARY/SECONDARY <AGE 12 childhood Tonsillectomy FAMILY HISTORY Problem Relation Age of Onset Colon Cancer Mother ~70 Hypertension Mother Thyroid Mother Colon Cancer Father ~70 Hypertension Father Stroke Father Heart Father Hx of CHF Coronary Artery Disease Maternal Grandmother Hx of HI Diabetes Daughter Type I Social History Tobacco Use Smoking status: Never Smokeless tobacco: Never Vaping Use Vaping Use: Never used Substance Use Topics Alcohol use: Yes Alcohol/week: 3.9 standard drinks of alcohol Types: 3 Mixed Drinks per week Comment: 3-4/week Drug use: No Current Outpatient Medications on File Prior to Visit Medication Sig pravastatin (PRAVACHOL) 20 mg tablet Take 1 tablet by mouth daily at bedtime. naproxen (NAPROSYN) 500 mg tablet Take 1 tablet by mouth two times a day as needed (for pain/inflammation). Take with food. potassium chloride 20 mEq TbER Take 1 tablet by mouth two times a day. spironolactone (ALDACTONE) 50 mg tablet Take 1 tablet by mouth once daily. nortriptyline (PAMELOR) 75 mg capsule Take 1 capsule by mouth daily at bedtime. lisinopril (ZESTRIL) 20 mg tablet Take 1 tablet by mouth once daily. rOPINIRole Hydrochloride 3 mg tablet Take 1 tablet by mouth daily at bedtime. ammonium lactate (LAC-HYDRIN) 12 % cream Apply to affected area as needed. aspirin, enteric coated (ADULT LOW DOSE ASPIRIN) 81 mg EC tablet Take 1 tablet by mouth once daily. calcium carbonate(CALTRATE 600 600 MG (1,500 MG) TAB) DAILY MULTIVITAMIN TAB Take one(1) tablet daily. No current facility-administered medications on file prior to visit. Objective Exam: Vitals: As per nursing documentation Constitutional: Normal Appearance, Oriented to Time, Place and Person Head: No lacerations, no external signs of trauma Eyes: Conjunctiva clear. No discharge from the eyes Cardiovascular: Appears well-perfused Pulmonary: Non-labored respirations Abdominal: Non-distended Skin: No visible rashes or ecchymosis Psychiatric: Mood appropriate for given condition Neurological: Gross movements are limited by pain, but otherwise unremarkable Data Reviewed: Nursing note and vitals reviewed. Additional imaging reviewed as appropriate Assessment and Plan: As noted above [place] protocol documentation / Pre-Procedure Checklist: Consent: Obtained in writing prior to procedure I had a nice discussion with the patient today about their current pain and the pathology that could be causing it We discussed different treatment options, including risks, benefits and alternatives. We agreed to proceed as previously discussed, or the plan was modified in accordance with the comments noted above Unless stated otherwise in the procedure note, the risks include but are not limited to infection, allergic reaction, increased pain, lack of therapeutic benefit, steroid reaction, nerve damage, paralysis, stroke, epidural hematoma, syncope, headache, respiratory or cardiac arrest, pneumothorax, and scar formation Once the plan was agreed upon, the patient gave written consent to proceed and was transported intothe procedure room Surgical/Procedure pause or Time Out : Time Out was led by the physician in the procedure room, with the patient and all staff present andparticipating The following information was verified during the Time Out process: Patient name, patient date of , procedure site (marked), laterality, anticoagulants and allergies Procedure: The patient was prepped and draped in a sterile fashion in the prone position after informed consent was signed and all patient questions were answered including the risks, benefits, alternative treatment options, and prognosis. The risks are as mentioned above, with the exception of Pneumothorax. The above-mentioned neural foramen were sequentially injected using the following technique: The C-arm was positioned so that an oblique view of the neural foramen as noted above was visualized. The soft tissues overlying this structure were infiltrated with 2-3 cc. of 1%Lidocaine without Epinephrine. A 22 gauge, 5 inch spinal needle was inserted toward the target using a trajectory viewalong the fluoroscope beam. Under AP and lateral visualization, the needle was advanced, so it did not puncture dura. Biplanar projections were used to confirm position. Aspiration was confirmed to be negative for CSF and/or blood. A 1-2 cc volume of Omnipaque 300 contrast was injected at this level. The contrast was observed to flow epidural (under the pedicle). Attention was then turned to the second level mentioned above. The C-arm was positioned so that an oblique view of the neural foramen as noted above was visualized. The soft tissues overlying this structure were infiltrated with 2-3 cc. of 1%Lidocaine without Epinephrine. The same length and gauge needle mentioned above was inserted toward the target using a trajectory view along the fluoroscope beam. Under AP and lateral visualization, the needle was advanced, so it did not puncture dura. Biplanar projections were used to confirm position. Aspiration was confirmed to be negative for CSF and/or blood. A 1-2 cc volume of Omnipaque 300 contrast was injected at this level. The contrast was observed to flow epidural (under the pedicle). The injectate noted above was then injected at each level, with each level receiving half the amount. Please see the nursing note for exact times (time out, procedure start, procedure end). After careful removal of the needle, there was minimal bleeding. The injection site was covered with appropriate sterile dressing. The patient was noted to have tolerated the procedure well and was discharged after an appropriate period of post-procedure observation. The patient was instructed to contact us if there were any complications. The patient was advised to follow-up with the requesting physician within one to two weeks or as per their requested follow-up plan. Post procedure visit summary with written instructions was offered to the patient. [facility] documented in this encounterC[facility] Nurse Note* Meg Chaudhary LPN - 04/30/2023 3:12 PM EST Procedure to be performed: L4/5 & [id number] Left Transforaminal Epidural Steroid Injection Patient was wheeled on stretcher from pre op bay to procedure room and assisted onto the procedure tablePatient s procedure was performed in an [facility] Procedure room. Pause completed at each level by provider to verify correct level and laterality placement Pressure was applied to patient s injection site(s) and bleeding was minimal. Patient had no complaint of shortness of breath, dizziness, headache, numbness, tingling, weakness or complications from procedure. Patient was assisted from the procedure table onto the stretcher and wheeled into a post op bay. Patient was advised a clinician will be to obtain another set of vitals. Time Out: 1524 Confirmed patient name, date of , procedure site, laterality, and allergies Procedure Start: 1527 Procedure End: 154 * Ashutosh Vance LPN - 04/30/2023 3:06 PM EST Supervisor [employer] Sample [employer] Pattern's Name: LARRY Are you on a blood thinner: NO If yes, is a hold required: NO Last dose of blood thinner: NO INR Result today: NO Do you require a Lovenox bridge:NO Are you a diabetic:NO Are you/or could you be : NO Are you taking Xanax for the procedure: NO Are you currently on a steroid? NO Are you currently on an antibiotic: NO Have you had a COVID-19 vaccine in the last 14 days Or are you scheduled to receive one? NO documented in this encounterC[facility] History of Present illness Narrative* Alanna Rodriguez RT(R) - 04/17/2023 3:00 PM EST Radiology Service Progress Note PATIENT NAME: Spenser Putnam DATE OF SERVICE: April 17, 2023 TIME: 2:54 PM PATIENT IDENTITY VERIFICATION COMPLETED USING TWO (2) IDENTIFIERS: Name and Date of confirmedby patient verbally. FALL SCREENING: Has the patient had 2 falls in the last year or 1 fall with injury or currently using an Ambulatory Assistive Device (Walker, Cane, Wheelchair, Crutches, etc.)? No PATIENT GENDER DATA: Female. status: : No status: NO. PATIENT RELEVANT IMPLANT DATA REVIEWED: Yes PATIENT PRESENTS WITH AN IMPLANTABLE OR ATTACHED OPERATIONS ANALYST: No RADIOLOGY DEPARTMENT: General X-ray: Exam(s) Completed: Lower Extremity X- Ray(s): Knee, AP / Lat / Tunne / Merchant Bilateral and Wt. Bearing PERIPHERAL IV DATA: Not applicable SIGNED BY: RT Garfield(R) April 17, 2023 2:54 PM documented in this encounterCleveland Clinic [facility]02-08-2024 Miscellaneous Notes* Telephone Encounter - Beronica Michel - 04/17/2023 2:42 PM EST Procedure(s) being scheduled: 1.Are you diabetic No 2. Are you on any blood thinners? No If yes, does it require a hold? No If yes, was approval letter sent? No 3. Are you taking any aspirin? Yes. Please list the current medications being prescribed 81mg. 4. Are you currently taking any antibiotics? No If yes, is it prophylactic or for treatment of an infection? NA 5. Do you have any allergies to latex? No 6. Do you have any allergies to seafood or shellfish? No 7. Do you have any allergies to x-ray dye? No 8. Did the physician instruct you to take any medication prior to your procedure? No 9. Does this procedure require a driver service technician? Yes If yes, has patient been notified that a driver service technician is needed and must be present at check in? Yes 10. Were the pre-procedure instructions explained and provided to the patient? Yes 11. Do you have a pacemaker? No 12. Do you have an internal stimulator of any kind? No If yes, please bring the remote with you to your procedure visit. 13. Have you received the COVID-19 Vaccine? Yes. If yes, date(s) received: December 2022 (Patient should not receive a procedure including steroids 14 days prior to their first dose of theCOVID vaccine. They should not receive any procedure containing steroids in the time frame between their 1st and 2nd doses of the COVID vaccine. They should not receive a procedure containing steroids 14 days after their 2nd dose of the COVID vaccine.) Beronica Michel documented in this encounterC[facility]02-08-[facility] History of Present illness Narrative* Minnie Delaney MA - 04/17/2023 1:57 PM EST Review of Systems Constitutional: Negative for activity change, chills, fever and unexpected weight change. Gastrointestinal: Negative for bowel retention or incontinence Genitourinary: Negative for difficulty urinating. Negative for bladder retention or incontinence Musculoskeletal: Positive for arthralgias, back pain, gait problem and myalgias. Negative for jointswelling, neck pain and neck stiffness. Neurological: Negative for weakness, numbness and headaches. Psychiatric/Behavioral: Negative for dysphoric mood, sleep disturbance and suicidal ideas. The patient is not nervous/anxious. * Jackson Sumner MD - 04/15/2023 11:21 AM EST Images from the original note were not included. [facility] [place] [facility] Today's Date: 04/15/2023 Name: Spenser Putnam : 1940 Purpose: New Patient Consultation Chief complaint: Spinal stenosis of lumbar region Referring Clinician: Destini Lay PA-C Pertinent Past Medical History: Insomnia, RLS, Carpal tunnel - left, HLD, HTN, Valvular heart disease, Raynaud's phenomenon, H/O other malignant neoplasm of skin, Lumbar disc herniation, DJD of sternoclavicular joint, 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, Pertinent Past Surgeries: Lumbar interbody fusion L3-4 (2020), Lumbar fusion (2012), History of Present Illness (HPI): 04/15/2023 - Initial HPI (Obtained by Jackson Sumner M.D.). DURATION AND ONSET: The pain complaint has been present for approximately 40 years. The pain had a gradual onset. The mechanism of injury is unknown. RED FLAG SYMPTOMS: denies red flags. She saw her spine surgeon, who advised non-op management. She reports she had low back pain and left lower limb radicular symptoms that responded to surgery both times. She developed new onset low back pain and the left lower limb pain one month ago suddenly. She saw Dr. Gomez in 2012, did TFESI at L2-3 x 2, does not recall results. PAIN DESCRIPTION: Timing: Constant Character: Aching, Dull Primary Location: left knee Radiation: lateral thigh and gomez, occasionally low back Exacerbating factors: Standing, Walking Relieving factors: Sitting, Lying Down Interferes with: walking (uses a walker) Current Pain Medications: Neuropathics: Pamelor 75mg qHS for sleep; Lyrica 50mg TID - just started NSAIDS: Naproxen 500mg BID PRN Muscle Relaxants: Topicals: Other Prescription or OTC Pain Medications: ASA 81mg Opioids (when applicable): Percocet - took sparingly, helped a little bit Greenlight Questionnaire GREENLIGHT Completed Date 04/17/2023 Opioid Risk Tool Opiod Risk Tool Date Completed 04/17/2023 Comments 0 EVI-7 Anxiety Score 0 Completed Date 04/17/2023 PHQ9P Score 0 Completed Date 04/17/2023 Anti-depressants or Mood-Stabilizers: None Anti-Coagulants: None Therapies Attended (Current or Most Recent): No Current Therapies Treatment History: PAIN PROCEDURES: DATE PROCEDURE IMPROVEMENT To date, no interventional pain management procedures performed at this practice. MEDICATIONS Taken TO DATE (for the chief complaint(s)): Neuropathics: Neurontin (Gabapentin), Lyrica (Prebabalin), Pamelor (Nortriptyline), Elavil (Amitriptyline) NSAIDS: Naprosyn (Naproxen), Mobic (Meloxicam) Muscle Relaxants: None Topicals: None Other Prescription or OTC Pain Medications: Aspirin Opioids: Tramadol, Oxycodone (eg Percocet) Data Reviewed Today: Allergies: ALLERGIES Allergen Reactions Sulfa (Sulfonamide * Swelling, Anaphylaxis Tongue/ throat swelled Phenergan Plain Vomiting Vomiting Hydrocodone-Acetami* GI Upset NAUSEA Procardia [Nifedipi* Swelling legs Social History Tobacco Use Smoking status: Never Smokeless tobacco: Never Vaping Use Vaping Use: Never used Substance Use Topics Alcohol use: Yes Alcohol/week: 3.9 standard drinks of alcohol Types: 3 Mixed Drinks per week Comment: 3-4/week Drug use: No INTAKE PAIN ASSESSMENT 02/25/2023 03/12/2023 Are you having pain associated with your visit today? Yes, Provider notified Yes, Provider notified Pain Scales Verbal (Numeric Rating or Visual Analog Scale) - Pain Level 10 8 Pain Location Hip-Right Hip-Right Description Shooting Sharp Duration Amount of Time 2 2 Duration Units Days Weeks Frequency Intermittent Continuous Intervention/Comfort measure - Medication;Heat Pain Assessment - - Compliance: PDMP website checked and validated on 04/15/2023 by Jackson Sumner MD All prescriptions have been APPROPRIATELY filled. No suspicious activity was identified. Percocet 5/325, #15 (04/02/2023, 03/26/2023) No flowsheet data found. (All drug screens are appropriate unless indicated otherwise) Risk Assessment: EVI-7: No flowsheet data found.(0-4) minimal anxiety, (5-9) mild anxiety, (10-14) moderate anxiety, (15-21) severe anxiety PHQ-9: PHQ-9 01/01/2013 05/19/2013 10/17/2021 Score 0 3 5 (0-4) minimal depression, (5-9) mild depression, (10-14) moderate depression, (15-19) moderately severe depression, (20-27) severe depression Opioid Risk Tool: Family History of Substance Abuse: 0 - No Personal History of Substance Abuse: 0 - No Age between 16-45: 0 - No History of Pre-Adolescence Sexual Abuse: 0 - No Psychological Disease: 0 - No Risk Total: 0 Total Score Risk Category: Low Risk 0-3 (0-3, low risk or no risk; 4-7, moderate risk, 8+, high risk) Diagnostic Studies: Relevant Imaging: MRI Spine Report MRI LUMBAR SPINE WO IVCON Exam End: 03/27/2023 1:23 PM (Final result) Narrative: * * *Final Report* * * DATE OF EXAM: Mar 27 2023 1:23PM UMER [id number] - MRI LUMBAR SPINE WO IVCON / PROCEDURE REASON: multiple diagnoses * * * * Physician Interpretation * * * * EXAMINATION: MRI LUMBAR SPINE WO IVCON CLINICAL HISTORY: Radiculopathy of lumbar region Spinal stenosis of lumbar region with neurogenic claudication. TECHNIQUE: Routine lumbosacral spine MR protocol without gadolinium. MQ: [id number] COMPARISON: MRI lumbar spine dated 06/19/2012. Lumbar spine radiographs dated 03/21/2023. RESULT: Counting reference: Lumbosacral junction. For the purposes of this report, L4-5 is considered the level of the iliac crest and assume there are 5 lumbar-type vertebrae. Anatomic variant: None. Localizer images: No additional significant findings. Alignment: Disc space narrowing seen at L3-L4. 2 mm grade 1 retrolisthesis of L2 on L3. 3 mm grade 1 retrolisthesis of L3 on L4. 4 mm grade 1 anterolisthesis of L5 on S1. Bone marrow signal/fracture: Endplate degenerative signal change seen at L2-L3, L4-L5, and L5-S1. Susceptibility artifact from interbody fusion hardware at L3-L4, posterior fusion hardware at L4-L5, and left lateral screws at L3-L4 seen. Laminectomies seen at L3-L5. Conus: The conus is within normal limits of signal intensity and morphology. Paraspinal soft tissues: Disruption of the posterior fat planes at the mid and lower lumbar levels secondary to prior surgery. Lower thoracic spine: Visualized lower thoracic canal and foramina are patent. L1-L2: Minimal bulging annulus. Canal and foramina are patent. L2-L3: Bulging annulus and moderate to severe facet degenerative changes. Moderate to severe canal stenosis. Mild to moderate left and mild right foraminal narrowing. L3-L4: Bulging annulus and moderate facet degenerative change. Mild to moderate canal stenosis and left greater than right subarticular recess narrowing. Moderate bilateral foraminal narrowing. L4-L5: Bulging annulus. Canal is decompressed. Neural foramina are patent. L5-S1: Mild bulging annulus. Moderate facet degenerative changes. Mild to moderate left and mild right foraminal narrowing. Canals patent. Sacrum and iliac wings: Aside from degenerative change at L5-S1, the visualized sacrum and iliac wings are unremarkable. Compared to the prior MRI dated 06/19/2012, fusion hardware is new. Previously seen canal narrowing at L4-L5 has improved. Degenerative changes at other levels, most notably at L2-L3, have progressed. Impression: IMPRESSION: Postoperative changes with hardware and laminectomies at the L3-L5 levels. Multilevel degenerative changes, most significant at L2-L3 where there is moderate to severe canal stenosis (see full level by level discussion above). Otherwise, unremarkable MRI lumbar spine without contrast. Anatomic Lumbar Variant: None. L4-5 is considered the level of the iliac crest and assume there are 5 lumbar-type vertebrae. Ring Facer: [facility] Transcribe Date/Time: Mar 27 2023 1:25P Dictated by : RENEE CRUZ MD This examination was interpreted and the report reviewed and electronically signed by: RENEE CRUZ MD on Mar 27 2023 1:35PM EST X-ray Lumbar 03/2023 RESULT: 5 nonrib-bearing lumbar-type vertebrae. For numbering purposes, L4-5 is at the level of the iliac crest. Pedicle plate and screw device transfixes L4 and L5. No evidence of fracture or loosening. Disc spacer at L3-4 with hardware fixation. Mild grade 1 spondylolisthesis of L4 on L5, and L5 on S1. Moderate to severe disc space narrowing at L2-3 with vacuum phenomenon. Osteopenia. SI joints appear unremarkable IMPRESSION: DEGENERATIVE, POSTOPERATIVE CHANGE AND ALIGNMENT ABNORMALITIES DESCRIBED X-ray Rt. Hip 02/2023 RESULT: Bony mineralization within normal limits. Mild to moderate degenerative narrowing and bony spurring at the right hip joint. No acute fracture or dislocation is seen at the right hip. Lower lumbar fusion hardware from L3 to L5 IMPRESSION: Mild to moderate degenerative change with prominent spurring at the right hip similar to the previous MRI Lumbar 11/2020 Electrodiagnostic Study (EMG): 08/17/2020- Recent Labs: Creatinine Date Value Ref Range Status 04/19/2022 0.84 0.58 - 0.96 mg/dL Final eGFR, Date Value Ref Range Status 11/06/2012 >60 Final No results found for: PCGLUCOSE Current Medications, Past Medical History, Past Surgical History, Family History, Social History and Review of Systems: On today's date, noted above, I have confirmed and edited as necessary, the PFSH and ROS obtained by others. Physical Exam: 04/17/23 1359 Pulse: 75 Resp: 16 SpO2: 99% Neuro-Lower: Neural Tension Signs: Negative slump in Bilateral lower limbs Sensation: intact to light touch in the L2-S2 Bilateral lower limb dermatomes Muscle Tone: Normal and symmetric throughout without clonus Strength: Iliopsoas (L2): 5 Left, 5 Right Quadriceps (L3) 5 Left, 5 Right Anterior Tibialis (L4): 5 Left, 5 Right Extensor Hallucis Longus (L5): 5 Left, 5 Right Gastrocnemius (S1): 5 Left, 5 Right Reflexes: Normal 2+ and symmetric Patellar, Achilles Musculoskeletal-Lower: Inspection: Symmetric without atrophy Palpation: Lumbar Paraspinal Tenderness: Concordant on Bilateral side(s) Paraspinal Spasms: None PSIS Tenderness: None on Bilateral side(s) Greater Trochanter Tenderness: None on Bilateral side(s) Spine Range of Motion: Flexion: Decreased 25% Without end range pain Extension: Decreased 50% With end range pain Combination extension and rotation pain: Concordant Hip Range of Motion: Right Hip: Internal Rotation: Normal; Pain at end range: None External Rotation: Normal; Pain at end range: None Left Hip: Internal Rotation: Normal; Pain at end range: None External Rotation: Normal; Pain at end range: None Sacroiliac Maneuvers: Deferred Left Knee(s): Inspection: No edema Palpation: Concordant tenderness to palpation of medial and lateral joint lines Range of Motion: Normal and non-painful active extension and flexion No crepitus Special Tests: No ligamentous laxity with Anterior drawer, Posterior drawer, Flakita, Varus stress, Valgus stress IMPRESSION: 82 year old female presents with complaint(s) of recurrent low back pain and left lowerlimb radicular symptoms in a predominantly L5 dermatomal distribution. She has prior fusion at L4-5, with central canal stenosis at L3-4. She also has concordant pain over the left knee. It is possible that the knee is the source of her pain. Diagnoses: (M48.061) Spinal stenosis, lumbar region, without neurogenic claudication (primary encounter diagnosis) (M54.16) Lumbar radiculopathy (M47.816) Lumbar spondylosis (M17.0) Primary osteoarthritis of both knees PLAN: Spenser Putnam would benefit from the following to reach personal goals for decreasing pain, improving function and work participation, and/or improving quality of life: Medications: Requested Prescriptions No prescriptions requested or ordered in this encounter Continue current medications Interventional Procedures: Knee Joint Injection (Steroid) under ultrasound guidance LEFT-SIDED Supervisor Frame Sample And Pattern Needed: Joint Injection - NO (Exception: SI Joint - YES) Anticoagulants: None Relevant Allergies: None Additional Info: None Epidural Steroid Injection - Transforaminal Approach (TFESI) under fluoroscopic guidance LEFT-SIDEDat S1 and L4-5 Supervisor Frame Sample And Pattern Needed: Epidural - YES Anticoagulants: None Relevant Allergies: None Additional Info: None Studies: X-ray: Knee (Bilateral) Functional Yarsani: NONE Referrals: No additional considerations at present Follow-up: 2 months Depending on response to the above plan, consider: MBB/RFA, Synvisc One Knee; Genicular blocks/RFA Compliance and Clinic Policies Reviewed and/or Discussed Today: None Attribution: In addition to reviewing the information noted above, some elements copied from my most recent clinical note(s), including the physical exam (completed in entirety today), and the impression and plan sections, have been updated where appropriate. All reflect current medical decision making from today's date. [facility] documented in this encounterC[facility]02-05-2024 Miscellaneous Notes* Telephone Encounter - Kelel Joyce MA - 04/14/2023 7:45 AM EST Patient has been identified by name and date of : Yes, Provider Dr Spann Date 04/14/2023 Time7:46 am Requested Prescriptions Pending Prescriptions Disp Refills pravastatin (PRAVACHOL) 20 mg tablet 90 tablet 1 Sig: Take 1 tablet by mouth daily at bedtime. RX INSTRUCTIONS: Patient aware RX will be sent to pharmacy. No need to notify patient. Kelle Joyce MA Trudy 03/2023 Nov 09/2023 Last refill: 10/2022 documented in this encounterCleveland Clinic [facility]01-12-2024 History of Present illness Narrative* Georgia Weston, RT(R) - 03/21/2023 1:20 PM EST Radiology Service Progress Note PATIENT NAME: Spenser Putnam DATE OF SERVICE: March 21, 2023 TIME: 1:30 PM PATIENT IDENTITY VERIFICATION COMPLETED USING TWO (2) IDENTIFIERS: Name and Date of confirmedby patient verbally. FALL SCREENING: Has the patient had 2 falls in the last year or 1 fall with injury or currently using an Ambulatory Assistive Device (Walker, Cane, Wheelchair, Crutches, etc.)? Yes, Patient High Riskfor Falls What interventions were put in place to prevent falls during this visit? Offered Assistance with Transfers/Clothing and Instructed Patient to Remain Seated (Not on Exam Table) Until Exam PATIENT GENDER DATA: Female. status: : No status: NO. PATIENT RELEVANT IMPLANT DATA REVIEWED: Not Applicable RADIOLOGY DEPARTMENT: General X-ray: Exam(s) Completed: Spine X-Ray(s): Lumbar AP / LAT / L5-S1 PERIPHERAL IV DATA: Not applicable SIGNED BY: RT Devan(R) March 21, 2023 1:30 PM documented in this encounterCleveland Clinic [facility]12-19-2023 History of Present illness Narrative* Sawyer Ngo RT(R) - 02/25/2023 11:00 AM EST Radiology Service Progress Note PATIENT NAME: Spenser Putnam DATE OF SERVICE: February 25, 2023 TIME: 11:09 AM PATIENT IDENTITY VERIFICATION COMPLETED USING TWO (2) IDENTIFIERS: Name and Date of confirmedby patient verbally. FALL SCREENING: Has the patient had 2 falls in the last year or 1 fall with injury or currently using an Ambulatory Assistive Device (Walker, Cane, Wheelchair, Crutches, etc.)? No PATIENT GENDER DATA: Female. status: : No status: NO. PATIENT RELEVANT IMPLANT DATA REVIEWED: Not Applicable RADIOLOGY DEPARTMENT: General X-ray: Exam(s) Completed: Pelvis X-Ray: Pelvis with Hip Right PERIPHERAL IV DATA: Not applicable SIGNED BY: RT Evan(R) February 25, 2023 11:09 AM documented in this encounterCleveland Clinic [facility]12-11-2023 Miscellaneous Notes* Telephone Encounter - Kelle Joyce MA - 02/17/2023 12:45 PM EST Daughter Roxy was notified and voiced understanding. Kelle Joyce MA * Telephone Encounter - Juan Spann MD - 02/17/2023 12:34 PM EST Let patient know her antibiotic was only for 5 days instead of 10. I sent a refill in for another 5days worth. The following approved medication requests have been transmitted electronically. Requested Prescriptions Signed Prescriptions Disp Refills amoxicillin-clavulanate potassium (AUGMENTIN) 875-125 mg per tablet 10 tablet 0 Sig: Take 1 tablet by mouth two times a day for 5 days. Juan Spann MD * Telephone Encounter - Ike Brush MA - 02/17/2023 10:55 AM EST Per message sent today 02/17- COVID test at home is negative. Ike Brush MA * Telephone Encounter - Kelle Joyce MA - 02/17/2023 9:38 AM EST Spoke with patient and she indicated that she has taken all of the antibiotic with little to no improvement. She was not tested when she was seen in . She is going to take a COVID test today and let us know. Patient is wanting to know if something can be called in. I told her she would probably need seen again. Kelle Joyce MA * Telephone Encounter - Shirley Barney - 02/17/2023 8:57 AM EST Patient is calling back, she is upset and wants a call today, as soon as possible from her PCP office. * Telephone Encounter - Miriam Frazier - 02/14/2023 10:27 AM EST Patient called that she was seen recently and given Amoxicillin, but she is still suffering with blocked sinus issues and needs relief. Asking for a nurse to please call and advise. documented in this encounterCleveland Clinic [facility]12-11-2023 Miscellaneous Notes* Telephone Encounter - Ike Brush MA - 02/17/2023 10:57 AM EST PLEASE SEE NURSE TRIAGE ENCOUNTER 02/14/23. Ike Brush MA documented in this encounterCleveland Clinic [facility]12-04-2023 History of Present illness Narrative* Rl Corado MD - 02/10/2023 10:51 AM EST Patient presents with: Nasal Congestion: sinus pressure x 3 weeks HPI: Runny nose for 3 weeks. Initial URI improved. Positive symptoms: Sinus pressure, Nasal Congestion, Rhinorrhea, loss of smell, Negative symptoms: Cough, Shortness of breath, Sore throat, Fever, Vomiting, Diarrhea, OTC: oxymetazoline nose spray Has not had COVID test this illness MEDICATIONS: Current Outpatient Medications Medication Sig nortriptyline (PAMELOR) 75 mg capsule Take 1 capsule by mouth daily at bedtime. lisinopril (ZESTRIL) 20 mg tablet Take 1 tablet by mouth once daily. pravastatin (PRAVACHOL) 20 mg tablet Take 1 tablet by mouth daily at bedtime. rOPINIRole Hydrochloride 3 mg tablet Take 1 tablet by mouth daily at bedtime. spironolactone (ALDACTONE) 50 mg tablet Take 1 tablet by mouth once daily. potassium chloride 20 mEq TbER Take 1 tablet by mouth twice daily. ammonium lactate (LAC-HYDRIN) 12 % cream Apply to affected area as needed. aspirin, enteric coated (ADULT LOW DOSE ASPIRIN) 81 mg EC tablet Take 1 tablet by mouth once daily. calcium carbonate(CALTRATE 600 600 MG (1,500 MG) TAB) DAILY MULTIVITAMIN TAB Take one(1) tablet daily. No current facility-administered medications for this visit. ALLERGIES: ALLERGIES Allergen Reactions Sulfa (Sulfonamide * Swelling, Anaphylaxis Tongue/ throat swelled Phenergan Plain Vomiting Vomiting Hydrocodone-Acetami* GI Upset NAUSEA Procardia [Nifedipi* Swelling legs VITALS: BP 120/72 Pulse 82 Temp 36.3 C (97.4 F) Resp 16 Wt 71.7 kg (158 lb) SpO2 96% BMI 29.13 kg/m PHYSICAL EXAM: GEN: Pleasant, in no acute distress. HEENT: PERRL, EOMI, conjunctiva clear Ears: canals clear. TMs without erythema, bulge, or effusion Sinuses: non-tender frontal sinus, non-tender maxillary sinuses; nose congested and sniffing discharge Throat: moist mucous membranes, mild erythema, no exudate Neck: supple, no thyromegaly, no lymphadenopathy HEART: regular rate and rhythm, no murmurs LUNGS: clear to auscultation, no wheezes or crackles, no increased WOB ASSESSMENT/PLAN: 1. Acute non-recurrent sinusitis, unspecified location - ICD9: 461.9, ICD10: J01.90 Treat possible secondary bacterial sinusitis. - AMOXICILLIN 875 MG-POTASSIUM CLAVULANATE 125 MG TABLET Stop nasal decongestant spray which can cause rebound congestion. Initial illness may have been COVID since she has loss of smell vs normal loss from nasal congestion. Rl Corado MD documented in this encounterCleveland Clinic [facility]10-20-2023 History of Present illness Narrative* Lauren Nuñez APRN.[employer] - 12/27/2022 12:29 PM EDT This note was created using [email or web address]. Subjective Spenser Putnam is a 82 year old female. 82 year old female with PMH RLS, hyperlipidemia, HTN, Raynauds, and DJD presents for finger pain. Acute onset one week ago Right index finger States that she had a hang nail, Pulled it Since then has noted redness, swelling and pain about the nail. Denies injury Denies numbness. Denies tingling Denies fever or chills Denies red streaking Denies limited ROM, but endorses pain with use of finger. Tdap up to date Has been using soaks and topical ATB cream Denies she is a nail biter The history is provided by the patient. No educational sign language interpreter was used. Musculoskeletal Problem This is a new problem. The current episode started in the past 7 days. The problem occurs constantly. The problem has been unchanged. Pertinent negatives include no abdominal pain, arthralgias, chestpain, chills, coughing, diaphoresis, fatigue, fever, nausea, rash, sore throat, swollen glands, urinary symptoms, vertigo, visual change or vomiting. Nothing aggravates the symptoms. Treatments tried: ATB ointment and soaks. The treatment provided no relief. 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 Macias, Rt anterior shoulder, Gilberto III, pT1a, pNX, pM N/A Mixed hyperlipidemia 10/13/2014 Multiple thyroid nodules 09/15/2017 CT neck09/2017 7 mm nodule, US .2018 multiple small nodules repeat 09/2019 Non morbid obesity 03/29/2016 Osteopenia, senile 07/02/2005 SEE DEXA 07/15 Other chronic dermatitis due to solar radiation 03/27/2006 Other psoriasis 04/16/2013 Other seborrheic keratosis 06/23/2006 Personal history of other malignant neoplasm of skin 03/22/2013 Raynaud's phenomenon without gangrene 06/07/2020 suspected Restless leg syndrome Sensorineural hearing loss, asymmetrical 10/08/2017 Solar lentigo 03/22/2013 Spondylolisthesis at L5-S1 level 10/20/2012 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 09/15/2012 Vertigo 12/03/2021 MRI normal and patient declined further eval as of 12/03/21 Vitamin D deficiency 08/24/2016 Xerosis cutis 03/22/2013 PAST SURGICAL HISTORY Procedure Laterality Date ABDOMINAL SURGERY HX BACK SURGERY HX 01/23/2021 lateral lumbar interbody fusion L3-4 CHOLECYSTECTOMY age 52 +/- laparoscopic cholecystectomy COLONOSCOPY 04/29/2013 Dr. Patton, repeat 5 yrs COLONOSCOPY FLX DX W/COLLJ SPEC WHEN PFRMD 07/09/2006 COLONOSCOPY FLX DX W/COLLJ SPEC WHEN PFRMD 04/29/2013 internal hemorrhoids, q5y for FHx COLONOSCOPY, GI 05/02/2000 FHx, repeat q5y DILATION & CURETTAGE DX&/THER NONOBSTETRIC Dilation & curettage EYE SURGERY HX PAST SURGICAL HISTORY OF 12/2011 squamous cell CA rt hand.left LE PAST SURGICAL HISTORY OF 04/2012 rt CTR-- endoscopic PAST SURGICAL HISTORY OF 2012 lumbar surgery- fusion PAST SURGICAL HISTORY OF 2013 excision melanoma right shoulder PAST SURGICAL HISTORY OF Right 2017 bunionectoy TONSILLECTOMY HX TONSILLECTOMY PRIMARY/SECONDARY <AGE 12 childhood Tonsillectomy ALLERGIES Sulfa (Sulfonamide Antibiotics), Phenergan Plain, Hydrocodone- Acetaminophen, and Procardia [Nifedipine] MEDICATIONS lisinopril (ZESTRIL) 20 mg tablet Take 1 tablet by mouth once daily. pravastatin (PRAVACHOL) 20 mg tablet Take 1 tablet by mouth daily at bedtime. rOPINIRole Hydrochloride 3 mg tablet Take 1 tablet by mouth daily at bedtime. spironolactone (ALDACTONE) 50 mg tablet Take 1 tablet by mouth once daily. nortriptyline (PAMELOR) 75 mg capsule Take 1 capsule by mouth daily at bedtime. potassium chloride 20 mEq TbER Take 1 tablet by mouth twice daily. ammonium lactate (LAC-HYDRIN) 12 % cream Apply to affected area as needed. aspirin, enteric coated (ADULT LOW DOSE ASPIRIN) 81 mg EC tablet Take 1 tablet by mouth once daily. calcium carbonate(CALTRATE 600 600 MG (1,500 MG) TAB) DAILY MULTIVITAMIN TAB Take one(1) tablet daily. cephALEXin (KEFLEX) 500 mg capsule Take 1 capsule by mouth four times daily for 5 days. FAMILY HISTORY Problem Relation Age of Onset Colon Cancer Mother ~70 Hypertension Mother Thyroid Mother Colon Cancer Father ~70 Hypertension Father Stroke Father Heart Father Hx of CHF Coronary Artery Disease Maternal Grandmother Hx of HI Diabetes Daughter Type I Social History Tobacco Use Smoking status: Never Smokeless tobacco: Never Vaping Use Vaping Use: Never used Substance Use Topics Alcohol use: Yes Alcohol/week: 7.5 standard drinks of alcohol Types: 3 Mixed Drinks per week Comment: 3-4/week Drug use: No Review of Systems Constitutional: Negative for activity change, appetite change, chills, diaphoresis, fatigue, fever and unexpected weight change. HENT: Negative for sore throat. Eyes: Negative for pain, discharge, redness and itching. Respiratory: Negative for apnea, cough, choking and chest tightness. Cardiovascular: Negative for chest pain, palpitations and leg swelling. Gastrointestinal: Negative for abdominal pain, diarrhea, nausea and vomiting. Musculoskeletal: Negative for arthralgias and back pain. Right finger nail Skin: Negative for color change, pallor, rash and wound. Allergic/Immunologic: Negative for environmental allergies, food allergies and immunocompromised state. Neurological: Negative for vertigo. Hematological: Negative for adenopathy. Does not bruise/bleed easily. Psychiatric/Behavioral: Negative for agitation and behavioral problems. Objective BP 151/84 Pulse 92 Temp 36.4 C (97.6 F) Resp 20 Wt 70.8 kg (156 lb) SpO2 97% BMI 28.76 kg/m Physical Exam Vitals and nursing note reviewed. Constitutional: General: She is not in acute distress. Appearance: Normal appearance. She is normal weight. She is not ill-appearing, toxic-appearing or diaphoretic. HENT: Head: Normocephalic and atraumatic. Right Ear: Ear canal and external ear normal. Left Ear: Ear canal and external ear normal. Nose: Nose normal. No congestion or rhinorrhea. Mouth/Throat: Mouth: Mucous membranes are moist. Pharynx: No oropharyngeal exudate or posterior oropharyngeal erythema. Eyes: General: Right eye: No discharge. Left eye: No discharge. Extraocular Movements: Extraocular movements intact. Conjunctiva/sclera: Conjunctivae normal. Pupils: Pupils are equal, round, and reactive to light. Cardiovascular: Rate and Rhythm: Normal rate and regular rhythm. Pulses: Normal pulses. Heart sounds: Normal heart sounds. No murmur heard. No friction rub. Pulmonary: Effort: Pulmonary effort is normal. No respiratory distress. Breath sounds: Normal breath sounds. No stridor. No wheezing, rhonchi or rales. Chest: Chest wall: No tenderness. Abdominal: General: Abdomen is flat. There is no distension. Palpations: Abdomen is soft. There is no mass. Tenderness: There is no abdominal tenderness. There is no right CVA tenderness, left CVA tenderness, guarding or rebound. Hernia: No hernia is present. Musculoskeletal: General: Tenderness and signs of injury present. No swelling or deformity. Normal range of motion. Cervical back: Normal range of motion and neck supple. No rigidity. Right lower leg: No edema. Left lower leg: No edema. Comments: Right medial nail bed with erythehma +swelling No purulence +flexion +extension Brisk cap refill No red streaking Lymphadenopathy: Cervical: No cervical adenopathy. Skin: General: Skin is warm and dry. Capillary Refill: Capillary refill takes less than 2 seconds. Coloration: Skin is not jaundiced or pale. Findings: No bruising, erythema, lesion or rash. Neurological: General: No focal deficit present. Mental Status: She is alert and oriented to person, place, and time. Cranial Nerves: No cranial nerve deficit. Sensory: No sensory deficit. Motor: No weakness. Coordination: Coordination normal. Gait: Gait normal. Psychiatric: Mood and Affect: Mood normal. Behavior: Behavior normal. Thought Content: Thought content normal. Judgment: Judgment normal. Assessment and Plan ASSESSMENT/PLAN: 1. Paronychia of finger of right hand - ICD9: 681.02, ICD10: L03.011 - Begin treatment with Cephalaxin (Keflex) - No lymphangetic streaking, this was defined for patient to watch for and to seek medical care immediately if appears - Follow up for recheck in three days - Warm soapy soaks F/U if symptoms persist Lauren Nuñez APRN.[employer] documented in this encounterCleveland Clinic [facility]09-08-2023 Miscellaneous Notes* Telephone Encounter - Jonas Milan LPN - 11/15/2022 2:06 PM EDT Last refill 05/18/22 Qty: 90 with 1 refill TRUDY 07/22/22 NOV 03/12/23 Jonas Milan LPN * Telephone Encounter - Miriam Frazier - 11/15/2022 1:29 PM EDT Patient has been identified by name and date of : Yes Requested Prescriptions Pending Prescriptions Disp Refills lisinopril (ZESTRIL) 20 mg tablet 90 tablet 1 Sig: Take 1 tablet by mouth once daily. RX INSTRUCTIONS: Patient aware RX will be sent to pharmacy. No need to notify patient. Miriam Frazier documented in this encounterCleveland Clinic [facility]08-10-2023 Miscellaneous Notes* Telephone Encounter - Cintia Quiles LPN - 10/17/2022 10:55 AM EDT Patient has been identified by name and date of : Yes Patient phones for refill(s): Requested Prescriptions Pending Prescriptions Disp Refills pravastatin (PRAVACHOL) 20 mg tablet 90 tablet 1 Sig: Take 1 tablet by mouth daily at bedtime. Date of last office visit in primary care: 07/22/2022 Next appointment scheduled 03/12/2023 Please advise. Thank you. Cintia Quiles LPN documented in this encounterCleveland Clinic [facility]08-07-2023 Miscellaneous Notes* Telephone Encounter - Juan Spann MD - 10/14/2022 1:20 PM EDT The following approved medication requests have been transmitted electronically. Requested Prescriptions Signed Prescriptions Disp Refills rOPINIRole Hydrochloride 3 mg tablet 90 tablet 1 Sig: Take 1 tablet by mouth daily at bedtime. Authorizing Provider: JUAN SPANN MD * Telephone Encounter - Nathalie Liang MA - 10/14/2022 11:48 AM EDT Patient called for refill on 10-10-22 Patient is completely out meds Patient aware RX will be sent to pharmacy. No need to notify patient. Patient has been identified by name and date of : Yes, Provider Sonya Date 10-14-22 Time 11:50 Patient phones for refill(s): Ropinirole Hydrochloride 3 MG Date of last refill: 07/30 Date of last office visit with pcp: 07-22-22 Date of last office visit in primary care: 07-22-22 Date of future office visit with pcp: 03-12-23 Last 2 Encounter Wt Readings: Date: Wt: 07/22/2022 71.2 kg (157 lb) 07/15/2022 71.7 kg (158 lb) Please advise. Nathalie Liang MA documented in this encounterCleveland Clinic [facility]08-03-2023 Miscellaneous Notes* Telephone Encounter - Sabina Dos Santos - 10/10/2022 8:36 AM EDT Patient has been identified by name and date of : Yes Requested Prescriptions Pending Prescriptions Disp Refills rOPINIRole Hydrochloride 3 mg tablet 90 tablet 1 Sig: Take 1 tablet by mouth daily at bedtime. Patient has only 2 pills left and is noticing that her legs have been more jumpy. RX INSTRUCTIONS: Patient aware RX will be sent to pharmacy. No need to notify patient. Sabina Dos Santos documented in this encounterCleveland Clinic [facility]ucl[facility]07-10-2023 Miscellaneous Notes* Telephone Encounter - Wendi Alonso RN - 09/16/2022 10:33 PM EDT Reason for Call: Daughter of pt calling with concerns that mother was not feeling well. Checked herbp and it was 68/41 and pulse was 62. States she is clammy and dizzy. Denies chest pain but admits to a sour stomach earlier. Outcome: Disposition- Advised to call 911 now. Daughter agreeable. Reason for Disposition Shock suspected (e.g., cold/pale/clammy skin, too weak to stand, low BP, rapid pulse) Protocols used: Blood Pressure - [id number] documented in this encounterCleveland Clinic [facility]ucl[facility]05-22-2023 History of Present illness Narrative* Karen Zapata RDMS - 07/29/2022 11:30 AM EDT Radiology Service Progress Note PATIENT NAME: Spenser Putnam DATE OF SERVICE: July 29, 2022 TIME: 11:39 AM PATIENT IDENTITY VERIFICATION COMPLETED USING TWO (2) IDENTIFIERS: Name and Date of confirmedby patient verbally. FALL SCREENING: Has the patient had 2 falls in the last year or 1 fall with injury or currently using an Ambulatory Assistive Device (Walker, Cane, Wheelchair, Crutches, etc.)? No PATIENT GENDER DATA: Female. status: : No status: NO. PATIENT RELEVANT IMPLANT DATA REVIEWED: Not Applicable RADIOLOGY DEPARTMENT: Ultrasound PERIPHERAL IV DATA: Not applicable SIGNED BY: Karen Zapata RDMS July 29, 2022 11:39 AM documented in this encounterCleveland Clinic [facility]05-15-2023 Instructions* Patient Instructions* Juan Spann MD - 07/22/2022 1:41 PM EDT Consider getting the shingrix vaccine for the prevention of shingles from a local pharmacy Also consider getting a Tdap for a tetanus update at the health dept. 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 Macias, Rt anterior shoulder, Gilberto III, pT1a, pNX, pM N/A Mixed hyperlipidemia 10/13/2014 Multiple thyroid nodules 09/15/2017 CT neck09/2017 7 mm nodule, US multiple small nodules repeat 09/2019 Non morbid obesity 03/29/2016 Osteopenia, senile 07/02/2005 SEE DEXA 07/15 Other chronic dermatitis due to solar radiation 03/27/2006 Other psoriasis 04/16/2013 Other seborrheic keratosis 06/23/2006 Personal history of other malignant neoplasm of skin 03/22/2013 Raynaud's phenomenon without gangrene 06/07/2020 suspected Restless leg syndrome Sensorineural hearing loss, asymmetrical 10/08/2017 Solar lentigo 03/22/2013 Spondylolisthesis at L5-S1 level 10/20/2012 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 09/15/2012 Vitamin D deficiency 08/24/2016 Xerosis cutis 03/22/2013 PAST SURGICAL HISTORY PAST SURGICAL HISTORY Procedure Laterality Date BACK SURGERY HX 01/23/2021 lateral lumbar interbody fusion L3-4 CHOLECYSTECTOMY age 52 +/- laparoscopic cholecystectomy COLONOSCOPY 04/29/2013 Dr. Baggott, repeat 5 yrs COLONOSCOPY FLX DX W/COLLJ SPEC WHEN PFRMD 07/09/2006 COLONOSCOPY FLX DX W/COLLJ SPEC WHEN PFRMD 04/29/2013 internal hemorrhoids, q5y for FHx COLONOSCOPY, GI 05/02/2000 FHx, repeat q5y DILATION & CURETTAGE DX&/THER NONOBSTETRIC Dilation & curettage PAST SURGICAL HISTORY OF 12/2011 squamous cell CA rt hand.left LE PAST SURGICAL HISTORY OF 04/2012 rt CTR-- endoscopic PAST SURGICAL HISTORY OF 2012 lumbar surgery- fusion PAST SURGICAL HISTORY OF 2013 excision melanoma right shoulder PAST SURGICAL HISTORY OF Right 2017 bunionectoy TONSILLECTOMY PRIMARY/SECONDARY <AGE 12 childhood Tonsillectomy ALLERGIES: Sulfa (Sulfonamide Antibiotics), Phenergan Plain, Hydrocodone-Acetaminophen, and Procardia [Nifedipine] Medications reviewed: Yes FAMILY HISTORY FAMILY HISTORY Problem Relation Age of Onset Colon Cancer Mother ~70 Hypertension Mother Thyroid Mother Colon Cancer Father ~70 Hypertension Father Stroke Father Heart Father Hx of CHF Coronary Artery Disease Maternal Grandmother Hx of HI Diabetes Daughter Type I SOCIAL HISTORY: SOCIAL HISTORY Social History Tobacco Use Smoking status: Never Smoker Smokeless tobacco: Never Used Vaping Use Vaping Use: Never used Substance Use Topics Alcohol use: Yes Alcohol/week: 7.5 standard drinks Types: 3 Mixed Drinks per week Comment: 3-4/week Drug use: No Spenser likes to exercise by walking on treadmill. She watches her diet for sodium, low fat and low cholesterol generally not very much. List of current specialists seen: Back specialist- [facility] D[facility]- Dr. macias End of Live Planning discussed including patients advanced directive wishes: Yes I am willing to follow Spenser's advanced directives. PHQ-2 / Depression screen - patient not at risk for depression. Functional Ability/Safety Screen 1. Was the patient's timed Up and Go test unsteady or longer than 30 seconds? No 2. Does the patient need help with the phone, transportation, shopping,preparing meals, housework, laundry, medications or managing money? No 3. Does your home have rugs in the hallway, lack of grab bars in the bathroom, lack of handrails onthe stairs or have poor lighting? No Hearing Evaluation: normal PHYSICAL EXAM BP 122/78 (BP Site: Right Arm, BP Position: Sitting, BP Cuff Size: Regular Adult) Pulse 90 Resp16 Ht 156.8 cm (5' 1.75) Wt 71.2 kg (157 lb) BMI 28.95 kg/m Alert and oriented X 3: YES Body mass index is 28.95 kg/m . Visual acuity: sees opto ASSESSMENT/PLAN: 81 year old female The following prevention plan was discussed during the office visit and provided to the patient: See below Chief Complaint Patient presents with: Medicare Wellness Exam HPI Spenser Putnam is a 81 year old female who presents here today for Chronic Medical Conditions. andMedicare Annual Visit. Office visit - medicare wellness Patient with Hx of HTN, Hyperlipidemia, leg edema, thyroid nodules, insomnia, melanoma of the shoulder and sees Derm, Vit D def, Raynaud's as well as those reviewed and addressed below and in ROS Was seen last week for UTI was given antibiotic and is still having frequency and some burning. Took AZO this morning gave some relief. Office visit - 6 month follow up 11/2021 Patient with hx of hyperlipidemia, HTN, vit d deficiency and those as below. Patient was seen in August for vertigo symptoms. She has had a CT and MRI that have both been normal but continues to have symptoms at random times. Mostly with rolling over. Denies tunnel vision or near syncope. Also has had more carpal tunnel symptoms. Past medical history, appointments, medications, allergies reviewed. 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 Macias, Rt anterior shoulder, Gilberto III, pT1a, pNX, pM N/A Mixed hyperlipidemia 10/13/2014 Multiple thyroid nodules 09/15/2017 CT neck09/2017 7 mm nodule, US 7.2019 multiple small nodules repeat 09/2019 Non morbid obesity 03/29/2016 Osteopenia, senile 07/02/2005 SEE DEXA 07/15 Other chronic dermatitis due to solar radiation 03/27/2006 Other psoriasis 04/16/2013 Other seborrheic keratosis 06/23/2006 Personal history of other malignant neoplasm of skin 03/22/2013 Raynaud's phenomenon without gangrene 06/07/2020 suspected Restless leg syndrome Sensorineural hearing loss, asymmetrical 10/08/2017 Solar lentigo 03/22/2013 Spondylolisthesis at L5-S1 level 10/20/2012 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 09/15/2012 Vitamin D deficiency 08/24/2016 Xerosis cutis 03/22/2013 Previous Surgical History PAST SURGICAL HISTORY Procedure Laterality Date ABDOMINAL SURGERY HX BACK SURGERY HX 01/23/2021 lateral lumbar interbody fusion L3-4 CHOLECYSTECTOMY age 52 +/- laparoscopic cholecystectomy COLONOSCOPY 04/29/2013 Dr. Patton, repeat 5 yrs COLONOSCOPY FLX DX W/COLLJ SPEC WHEN PFRMD 07/09/2006 COLONOSCOPY FLX DX W/COLLJ SPEC WHEN PFRMD 04/29/2013 internal hemorrhoids, q5y for FHx COLONOSCOPY, GI 05/02/2000 FHx, repeat q5y DILATION & CURETTAGE DX&/THER NONOBSTETRIC Dilation & curettage EYE SURGERY HX PAST SURGICAL HISTORY OF 12/2011 squamous cell CA rt hand.left LE PAST SURGICAL HISTORY OF 04/2012 rt CTR-- endoscopic PAST SURGICAL HISTORY OF 2012 lumbar surgery- fusion PAST SURGICAL HISTORY OF 2013 excision melanoma right shoulder PAST SURGICAL HISTORY OF Right 2017 bunionectoy TONSILLECTOMY HX TONSILLECTOMY PRIMARY/SECONDARY <AGE 12 childhood Tonsillectomy Family History FAMILY HISTORY Problem Relation Age of Onset Colon Cancer Mother ~70 Hypertension Mother Thyroid Mother Colon Cancer Father ~70 Hypertension Father Stroke Father Heart Father Hx of CHF Coronary Artery Disease Maternal Grandmother Hx of HI Diabetes Daughter Type I Patient Allergies ALLERGIES Allergen Reactions Sulfa (Sulfonamide * Swelling, Anaphylaxis Tongue/ throat swelled Phenergan Plain Vomiting Vomiting Hydrocodone-Acetami* GI Upset NAUSEA Procardia [Nifedipi* Swelling legs Current Medications Current Outpatient Medications on File Prior to Visit Medication Sig nitrofurantoin monohydrate and macrocrystal (MACROBID) 100 mg capsule Take 1 capsule by mouth twicedaily for 5 days. nortriptyline (PAMELOR) 75 mg capsule Take 1 capsule by mouth daily at bedtime. lisinopril (ZESTRIL) 20 mg tablet TAKE 1 TABLET BY MOUTH EVERY DAY hydrOXYzine HCl (ATARAX) 25 mg tablet Take 1 tablet by mouth every 6 hours as needed for itching/rash. (Patient not taking: Reported on 07/15/2022) rOPINIRole Hydrochloride 3 mg tablet Take 1 tablet by mouth daily at bedtime. potassium chloride 20 mEq TbER Take 1 tablet by mouth twice daily. ammonium lactate (LAC-HYDRIN) 12 % cream Apply to affected area as needed. pravastatin (PRAVACHOL) 20 mg tablet Take 1 tablet by mouth daily at bedtime. spironolactone (ALDACTONE) 50 mg tablet Take 1 tablet by mouth once daily. BIOTIN ORAL Take by mouth as directed. (Patient not taking: Reported on 04/19/2022) fluticasone (FLONASE) 50 mcg/actuation nasal spray Use 2 Sprays in each nostril once daily. Rinse mouth after use. (Patient not taking: Reported on 02/28/2022) meclizine (ANTIVERT) 12.5 mg tab Take 1 tablet by mouth every 6 hours as needed (dizziness). aspirin, enteric coated (ADULT LOW DOSE ASPIRIN) 81 mg EC tablet Take 1 tablet by mouth once daily. calcium carbonate(CALTRATE 600 600 MG (1,500 MG) TAB) DAILY MULTIVITAMIN TAB Take one(1) tablet daily. No current facility-administered medications on file prior to visit. Social History Social History Tobacco Use Smoking status: Never Smokeless tobacco: Never Vaping Use Vaping Use: Never used Substance Use Topics Alcohol use: Yes Alcohol/week: 7.5 standard drinks Types: 3 Mixed Drinks per week Comment: 3-4/week Drug use: No Review of Symptoms REVIEW OF SYSTEMS GENERAL: No weight loss, malaise or fevers HEENT: Negative for frequent or significant headaches, No changes in hearing or vision, no nose bleeds or other nasal problems NECK: Negative for lumps, goiter, pain and significant neck swelling RESPIRATORY: Negative for cough, hemoptysis, wheezing, COPD, dyspnea. Sometimes will have slight shortness of breath going up her basement stairs but resolves quickly. Not every time and no chest pressure. CARDIOVASCULAR: Negative for chest pain, leg swelling, hypertension, CHF or palpitations GI: No nausea, vomiting, or diarrhea, No heartburn or reflux symptoms, and blood : patient having slight dysuria and frequency again. Has not seen any blood. MUSCULOSKELETAL: Negative for joint pain or swelling, back pain or muscle pain SKIN: Negative for lesions, rash, and itching PSYCH: Negative for sleep disturbance, mood disorder and recent psychosocial stressors HEMATOLOGY/LYMPHOLOGY: Negative for prolonged bleeding, bruising easily or swollen nodes ENDOCRINE: Negative for cold or heat intolerance, polyuria, polydipsia and goiter NEURO: No history of headaches, syncope, paralysis, seizures or tremors EXAM: BP 122/78 (BP Site: Right Arm, BP Position: Sitting, BP Cuff Size: Regular Adult) Pulse 90 Resp16 Ht 156.8 cm (5' 1.75) Wt 71.2 kg (157 lb) BMI 28.95 kg/m Last 5 Encounter Wt Readings: Date: Wt: 07/22/2022 71.2 kg (157 lb) 07/15/2022 71.7 kg (158 lb) 04/19/2022 73.5 kg (162 lb) 12/03/2021 71.7 kg (158 lb) 09/05/2021 73.9 kg (163 lb) General Appearance: Well appearing, alert, in no acute distress, well-hydrated, well nourished.. Skin: Skin color, texture, turgor normal, no suspicious rashes or lesions. Head: Normocephalic, no masses, lesions, tenderness or abnormalities. Eyes: Anicteric sclera. Pupils are equally round and reactive to light. Extraocular movements are intact. . Ears: External ears normal, canals clear. Nose/Sinuses: Nares normal, septum midline, mucosa normal, no drainage or sinus tenderness. Oropharynx: Lips, mucosa, and tongue normal, teeth and gums normal, oropharynx normal. Neck: Supple, no adenopathy; thyroid symmetric, normal size, no bruits. Lungs: Lungs clear to auscultation. No wheezing, rhonchi, rales.. Heart: RRR without gallop, or rubs. No ectopy. Soft 2/6 ELI Abdomen: Normal abdominal exam, Abdomen soft, non-tender. Bowel sounds normal. No masses, organomegaly. Extremities: No deformities, edema, skin discoloration, clubbing or cyanosis. Good capillary refill. . Musculoskeletal: Muscular strength intact, No joint swelling, deformity, or tenderness. Peripheral Pulses: Normal. Neurologic: Gait normal. Reflexes normal and symmetric. Sensation to light touch and crainal nerves2-12 intact.. Health Maintenance List DTAP,TDAP,TD(2 - Tdap) due on 09/16/2009 SHINGRIX VACCINE(3 of 3) due on 11/09/2020 DIABETES SCREEN due on 04/19/2025 BONE DENSITY Completed INFLUENZA Completed DEPRESSION ASSESSMENT Completed COVID-19 VACCINE Completed PNEUMOCOCCAL: 65+ Completed ADVANCE DIRECTIVE DISCUSSION Discontinued Data reviewed Component Latest Ref Rng & Units 04/18/2021 04/19/2022 05/21/2022 WBC 3.70 - 11.00 k/uL 8.62 8.57 RBC 3.90 - 5.20 m/uL 4.03 3.85 (L) Hemoglobin 11.5 - 15.5 g/dL 11.5 12.0 Hematocrit 36.0 - 46.0 % 35.1 (L) 37.3 MCV 80.0 - 100.0 fL 87.1 96.9 MCH 26.0 - 34.0 pg 28.5 31.2 MCHC 30.5 - 36.0 g/dL 32.8 32.2 RDW-CV 11.5 - 15.0 % 14.2 12.8 Platelet Count 150 - 400 k/uL 295 216 MPV 9.0 - 12.7 fL 8.9 (L) 9.5 Neut% % 55.0 62.7 Abs Neut (ANC) 1.45 - 7.50 k/uL 4.74 5.38 Lymph% % 34.7 25.6 Abs Lymph 1.00 - 4.00 k/uL 2.99 2.19 Brooks% % 9.2 9.2 Abs Brooks <0.87 k/uL 0.79 0.79 Eosin% % 0.9 1.6 Abs Eosin <0.46 k/uL 0.08 0.14 Baso% % 0.2 0.4 Abs Baso <0.11 k/uL <0.03 0.03 Immature Gran % % 0.5 IMMATURE GRANS (ABS) <0.10 k/uL 0.04 NRBC /100 WBC 0.0 Absolute nRBC <0.01 k/uL <0.01 <0.01 DTYPE Auto Nucleated Reds 0 /100 WBC 0.0 Diff Type Auto Diff Protein, Total 6.3 - 8.0 g/dL 7.6 7.8 Albumin 3.9 - 4.9 g/dL 4.0 4.0 Calcium 8.5 - 10.2 mg/dL 9.7 9.5 Bilirubin, Total 0.2 - 1.3 mg/dL 0.4 0.3 Alkaline Phosphatase 34 - 123 U/L 92 73 AST 13 - 35 U/L 17 24 Glucose 74 - 99 mg/dL 97 104 (H) BUN 7 - 21 mg/dL 11 13 Creatinine 0.58 - 0.96 mg/dL 0.82 0.84 Sodium 136 - 144 mmol/L 126 (L) 132 (L) Potassium 3.7 - 5.1 mmol/L 3.8 4.5 Chloride 97 - 105 mmol/L 94 (L) 98 CO2 22 - 30 mmol/L 23 22 Anion Gap 9 - 18 mmol/L 9 12 ALT 7 - 38 U/L 8 12 eGFR- >60 eGFR-All Other Races . >60 eGFR >=60 mL/min/1.73m 70 Color Yellow Light Yellow Clarity Clear Clear Glucose, Urine Trace, Negative Negative Bilirubin, Urine Negative Negative Ketones, Urine Trace, Negative Negative Specific [place], Ur 1.005 - 1.030 1.010 Hemoglobin/Blood,Ur Negative, Trace Negative pH, Urine 5.0 - 8.0 6.0 Protein, Urine Trace, Negative Negative Urobilinogen Negative Negative Nitrites Negative Negative Leukest Negative, 25 Obdulio/uL Negative WBC, Urine 0-5 /HPF 0-5 /HPF RBC, Urine 0-3 /HPF 0-3 /HPF Epithelial Cells /HPF Few Total Cholesterol, Nonfasting <200 mg/dL 166 175 Triglycerides, Nonfasting <150 mg/dL 91 175 (H) HDL Cholesterol, Nonfasting >39 mg/dL 74 82 LDL Cholesterol, Nonfasting <100 mg/dL 74 58 Non HDL Cholesterol, Nonfasting <130 mg/dL 92 93 VLDL Cholesterol, Nonfasting <30 mg/dL 18 35 (H) Total Chol/HDL Ratio, Nonfasting <5.10 mg/dL 2.24 2.13 LDL/HDL Ratio, Nonfasting <2.54 mg/dL 1.00 0.71 Vitamin D 25 Hydroxy 31.0 - 80.0 ng/mL 30.8 (L) 36.3 TSH 0.270 - 4.200 mIU/L 3.180 4.400 (H) 4.020 Free T4 0.9 - 1.7 ng/dL 0.9 Microsomal Antibody <5.6 IU/mL <3.0 Thyroglobulin Ab, Serum <4.0 IU/mL <0.9 Component Latest Ref Rng & Units 07/22/2022 GLUCOSE UA (POCT) Negative mg/dL Negative BILIRUBIN UA (POCT) Negative Negative KETONE UA (POCT) Negative mg/dL Negative SPECIFIC GRAVITY UA (POCT) 1.005 - 1.030 1.025 HEMOGLOBIN/BLOOD UA (POCT) Negative Large (A) PH UA (POCT) 4.5 - 8.0 5.5 PROTEIN UA (POCT) Negative mg/dL Negative UROBILINOGEN UA (POCT) Normal E.U./dL 0.2 NITRITE UA (POCT) Negative Positive (A) LEUKOCYTES UA (POCT) Negative Large (A) COLOR UA (POCT) Yellow CLARITY UA (POCT) Clear A/P ASSESSMENT/PLAN: 1. Medicare annual wellness visit, subsequent - ICD9: V70.0, ICD10: Z00.00 (primary diagnosis) - Counseled on healthy diet and regular exercise - Calcium intake with supplements or by diet of 1000 mg/day for under 50, 1200- 1500 mg/day for 50+ - Follow up for annual exam in one year 2. Essential hypertension with goal blood pressure less than 140/90 - ICD9: 401.9, ICD10: I10 - good control - Continue current medication(s) - Recommended regular aerobic exercise. - Recommend home blood pressure monitoring, to bring results in on next visit - Goal of BP <130/80 3. Mixed hyperlipidemia - ICD9: 272.2, ICD10: E78.2 - good control - Encouraged following a low fat, low cholesterol diet. - Discussed the benefits of regular aerobic exercise and weight loss. - Encouraged following a low carbohydrate, healthy oil intake diet. - Continue current therapy. 4. Bilateral leg edema - ICD9: 782.3, ICD10: R60.0 - none on exam today. No changes. 5. Multiple thyroid nodules - ICD9: 241.1, ICD10: E04.2 Check - US THYROID/PARATHYROID 6. Insomnia, unspecified type - ICD9: 780.52, ICD10: G47.00 - clinically stable 7. Restless leg syndrome - ICD9: 333.94, ICD10: G25.81 Stable no changes. 8. Malignant melanoma of right shoulder (HCC) - ICD9: 172.6, ICD10: C43.61 - management per Derm 9. Vitamin D deficiency - ICD9: 268.9, ICD10: E55.9 - controlled with replacement 10. Valvular heart disease - ICD9: 424.90, ICD10: I38 - stable no changes. 11. Vertigo - ICD9: 780.4, ICD10: R42 - minimal. No changes. Has antivert if needed. 12. Dysuria - ICD9: 788.1, ICD10: R30.0 recurrent - UA positive for obdulio esterase, hematuria, and nitrates - Patient education for prevention given - URINALYSIS, WITH MICROSCOPIC - URINE CULTURE 13. Urine frequency - ICD9: 788.41, ICD10: R35.0 recurrent - UA positive for obdulio esterase, hematuria, and nitrates - Begin treatment with Amoxicillin 875 mg BID for 7 days - Patient education for prevention given - URINALYSIS, WITH MICROSCOPIC - URINE CULTURE Tx with Amoxil 875 mg twice a day for 7 days and await culture 14. Advance directive discussed with patient - ICD9: V65.49, ICD10: Z71.89 - up to date Requested Prescriptions Signed Prescriptions Disp Refills amoxicillin (AMOXIL) 875 mg tablet 14 tablet 0 Sig: Take 1 tablet by mouth twice daily for 7 days. F/u 6 months routine no labs prior I spent a total of 40 minutes on the date of the service which included preparing to see the patient, [id number] patient care, completing clinical documentation, performing a medically appropriate examination, counseling and educating the patient/family/caregiver and ordering medications, tests, or procedures. Juan Spann MD documented in this encounterC[facility] History of Present illness Narrative* Mariama Joyce APRN.[employer] - 07/15/2022 3:10 PM EDT CC: Patient presents with: UTI: Frequency, burning x 2 days HPI Spenser Putnam is a 81 year old female who presents with complaint of possible UTI. These symptomshave been present for 2 days. Associated symptoms: burning and frequency Denies: backpain, fever, chills, sweats, abdominal pain, and flank pain Treatments: nothing The ROS was otherwise negative. PMH, Medications, labs, allergies, and recent past visits with PCP were reviewed and updated as able. 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 Macias, Rt anterior shoulder, Gilberto III, pT1a, pNX, pM N/A Mixed hyperlipidemia 10/13/2014 Multiple thyroid nodules 09/15/2017 CT neck09/2017 7 mm nodule, US multiple small nodules repeat 09/2019 Non morbid obesity 03/29/2016 Osteopenia, senile 07/02/2005 SEE DEXA 07/15 Other chronic dermatitis due to solar radiation 03/27/2006 Other psoriasis 04/16/2013 Other seborrheic keratosis 06/23/2006 Personal history of other malignant neoplasm of skin 03/22/2013 Raynaud's phenomenon without gangrene 06/07/2020 suspected Restless leg syndrome Sensorineural hearing loss, asymmetrical 10/08/2017 Solar lentigo 03/22/2013 Spondylolisthesis at L5-S1 level 10/20/2012 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 09/15/2012 Vitamin D deficiency 08/24/2016 Xerosis cutis 03/22/2013 PAST SURGICAL HISTORY Procedure Laterality Date ABDOMINAL SURGERY HX BACK SURGERY HX 01/23/2021 lateral lumbar interbody fusion L3-4 CHOLECYSTECTOMY age 52 +/- laparoscopic cholecystectomy COLONOSCOPY 04/29/2013 Dr. Patton, repeat 5 yrs COLONOSCOPY FLX DX W/COLLJ SPEC WHEN PFRMD 07/09/2006 COLONOSCOPY FLX DX W/COLLJ SPEC WHEN PFRMD 04/29/2013 internal hemorrhoids, q5y for FHx COLONOSCOPY, GI 05/02/2000 FHx, repeat q5y DILATION & CURETTAGE DX&/THER NONOBSTETRIC Dilation & curettage EYE SURGERY HX PAST SURGICAL HISTORY OF 12/2011 squamous cell CA rt hand.left LE PAST SURGICAL HISTORY OF 04/2012 rt CTR-- endoscopic PAST SURGICAL HISTORY OF 2012 lumbar surgery- fusion PAST SURGICAL HISTORY OF 2013 excision melanoma right shoulder PAST SURGICAL HISTORY OF Right 2017 bunionectoy TONSILLECTOMY HX TONSILLECTOMY PRIMARY/SECONDARY <AGE 12 childhood Tonsillectomy ALLERGIES Sulfa (Sulfonamide Antibiotics), Phenergan Plain, Hydrocodone- Acetaminophen, and Procardia [Nifedipine] MEDICATIONS nortriptyline (PAMELOR) 75 mg capsule Take 1 capsule by mouth daily at bedtime. lisinopril (ZESTRIL) 20 mg tablet TAKE 1 TABLET BY MOUTH EVERY DAY rOPINIRole Hydrochloride 3 mg tablet Take 1 tablet by mouth daily at bedtime. potassium chloride 20 mEq TbER Take 1 tablet by mouth twice daily. ammonium lactate (LAC-HYDRIN) 12 % cream Apply to affected area as needed. pravastatin (PRAVACHOL) 20 mg tablet Take 1 tablet by mouth daily at bedtime. spironolactone (ALDACTONE) 50 mg tablet Take 1 tablet by mouth once daily. meclizine (ANTIVERT) 12.5 mg tab Take 1 tablet by mouth every 6 hours as needed (dizziness). aspirin, enteric coated (ADULT LOW DOSE ASPIRIN) 81 mg EC tablet Take 1 tablet by mouth once daily. calcium carbonate(CALTRATE 600 600 MG (1,500 MG) TAB) DAILY MULTIVITAMIN TAB Take one(1) tablet daily. nitrofurantoin monohydrate and macrocrystal (MACROBID) 100 mg capsule Take 1 capsule by mouth twicedaily for 5 days. hydrOXYzine HCl (ATARAX) 25 mg tablet Take 1 tablet by mouth every 6 hours as needed for itching/rash. (Patient not taking: Reported on 07/15/2022) BIOTIN ORAL Take by mouth as directed. (Patient not taking: Reported on 04/19/2022) fluticasone (FLONASE) 50 mcg/actuation nasal spray Use 2 Sprays in each nostril once daily. Rinse mouth after use. (Patient not taking: Reported on 02/28/2022) FAMILY HISTORY Problem Relation Age of Onset Colon Cancer Mother ~70 Hypertension Mother Thyroid Mother Colon Cancer Father ~70 Hypertension Father Stroke Father Heart Father Hx of CHF Coronary Artery Disease Maternal Grandmother Hx of HI Diabetes Daughter Type I Social History Tobacco Use Smoking status: Never Smokeless tobacco: Never Vaping Use Vaping Use: Never used Substance Use Topics Alcohol use: Yes Alcohol/week: 7.5 standard drinks Types: 3 Mixed Drinks per week Comment: 3-4/week Drug use: No ASSESSMENT/PLAN: 1. Urinary frequency - ICD9: 788.41, ICD10: R35.0 - UA DIP, URINE (POC) - URINE CULTURE - NITROFURANTOIN MONOHYDRATE & MACROCRYSTAL 100 MG ORAL CAP Prescription instructions reviewed with patient as applicable. Potential red flag symptoms discussed with the patient. Reviewed appropriate action plan to take if red flag symptoms occur. Patient agreeable to treatment plan. Mariama Joyce APRN.JOVANY documented in this encounterC[facility]05-01-2023 Miscellaneous Notes* Telephone Encounter - Roxane Guerrier MA - 07/08/2022 9:56 AM EDT Patient has been identified by name and date of : Yes Requested Prescriptions Pending Prescriptions Disp Refills nortriptyline (PAMELOR) 75 mg capsule 30 capsule 5 Sig: Take 1 capsule by mouth daily at bedtime. RX INSTRUCTIONS: Patient aware RX will be sent to pharmacy. No need to notify patient. Patient last office visit: 04/19/22 Patient next office visit: 07/08/22 Roxane Guerrier MA documented in this encounterC[facility]03-16-2023 Miscellaneous Notes* Telephone Encounter - Livia Nuno LPN - 05/23/2022 12:36 PM EDT Patient notified of results, verbalizes understanding of instructions. Livia Nuno LPN * Telephone Encounter - Destini Lay PA-C - 05/23/2022 12:19 PM EDT Let patient know her repeat thyroid levels are better. We will cont to monitor. Destini Lay PA-C documented in this encounterCleveland Clinic [facility]03-13-2023 Miscellaneous Notes* Telephone Encounter - Tova Diaz Ma - 05/20/2022 9:42 AM EDT Rx refilled 05/18/22 to [facility]. Pt notified via mychart to check with pharmacy. Tova Diaz Ma documented in this encounterCleveland Clinic [facility]03-11-2023 Miscellaneous Notes* Telephone Encounter - Juan Spann MD - 05/18/2022 6:37 PM EST The following approved medication requests have been transmitted electronically. Requested Prescriptions Signed Prescriptions Disp Refills lisinopril (ZESTRIL) 20 mg tablet 90 tablet 1 Sig: TAKE 1 TABLET BY MOUTH EVERY DAY Authorizing Provider: JUAN SPANN MD * Telephone Encounter - Tova Diaz Ma - 05/18/2022 8:41 AM EST Last office visit: Tova Diaz Ma documented in this encounterC[facility]03-09-2023 Miscellaneous Notes* Telephone Encounter - Kelle Joyce MA - 05/16/2022 4:34 PM EST Patient has been identified by name and date of : Yes Requested Prescriptions Pending Prescriptions Disp Refills hydrOXYzine HCl (ATARAX) 25 mg tablet 30 tablet 1 Sig: Take 1 tablet by mouth every 6 hours as needed for itching/rash. RX INSTRUCTIONS: Patient aware RX will be sent to pharmacy. No need to notify patient. Kelle Joyce MA Trudy; 11/2021 Nov: 06/2022 Last refill: 04/2022 documented in this encounterC[facility] Clinic [facility]02-28-2023 Miscellaneous Notes* Telephone Encounter - Bisi Moore Ma - 05/07/2022 11:18 AM EST Patient last visit with PCP 04/19/22 Follow up appointment scheduled 06/12/22 Bisi Moore Ma documented in this encounterC[facility] Clinic [facility]02-13-2023 Miscellaneous Notes* Telephone Encounter - Minnie Wilburn LPN - 04/22/2022 10:12 AM EST Pt was notified of results & message from provider. Pt verbalized understanding. Minnie Wilburn LPN * Telephone Encounter - Destini Lay PA-C - 04/22/2022 9:38 AM EST Let patient know that her TSH is borderline elevated. I know she has had this in the past, so we may need to consider starting a low dose medication. But first, I would like to get 1 more recheck in 1 month with additional labwork to further test the thyroid function. Then we can decide from there. Otherwise labs look okay and will be discussed more during her upcoming routine OV. Destini Lay PA-C documented in this encounterCleveland Clinic [facility]02-10-2023 History of Present illness Narrative* Destini Lay PA-C - 04/19/2022 12:48 PM EST Chief Complaint Patient presents with: Derm Problem: Skin all over itches X 1 month HPI Spenser Putnam is a 81 year old female who presents here today for Above Complaints.. Patient states she is has had pruritis for the past month. No rash or lesions. Has also noted some burning sensation in mouth No new changes in her medications, soaps, detergent or anything else that she can think of. Has a follow up with Derm (Dr. Macias) next month. Past medical history, appointments, medications, allergies reviewed. 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 Macias, Rt anterior shoulder, Gilberto III, pT1a, pNX, pM N/A Mixed hyperlipidemia 10/13/2014 Multiple thyroid nodules 09/15/2017 CT neck09/2017 7 mm nodule, US .2018 multiple small nodules repeat 09/2019 Non morbid obesity 03/29/2016 Osteopenia, senile 07/02/2005 SEE DEXA 07/15 Other chronic dermatitis due to solar radiation 03/27/2006 Other psoriasis 04/16/2013 Other seborrheic keratosis 06/23/2006 Personal history of other malignant neoplasm of skin 03/22/2013 Raynaud's phenomenon without gangrene 06/07/2020 suspected Restless leg syndrome Sensorineural hearing loss, asymmetrical 10/08/2017 Solar lentigo 03/22/2013 Spondylolisthesis at L5-S1 level 10/20/2012 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 09/15/2012 Vitamin D deficiency 08/24/2016 Xerosis cutis 03/22/2013 Previous Surgical History PAST SURGICAL HISTORY Procedure Laterality Date ABDOMINAL SURGERY HX BACK SURGERY HX 01/23/2021 lateral lumbar interbody fusion L3-4 CHOLECYSTECTOMY age 52 +/- laparoscopic cholecystectomy COLONOSCOPY 04/29/2013 Dr. Patton, repeat 5 yrs COLONOSCOPY FLX DX W/COLLJ SPEC WHEN PFRMD 07/09/2006 COLONOSCOPY FLX DX W/COLLJ SPEC WHEN PFRMD 04/29/2013 internal hemorrhoids, q5y for FHx COLONOSCOPY, GI 05/02/2000 FHx, repeat q5y DILATION & CURETTAGE DX&/THER NONOBSTETRIC Dilation & curettage EYE SURGERY HX PAST SURGICAL HISTORY OF 12/2011 squamous cell CA rt hand.left LE PAST SURGICAL HISTORY OF 04/2012 rt CTR-- endoscopic PAST SURGICAL HISTORY OF 2012 lumbar surgery- fusion PAST SURGICAL HISTORY OF 2013 excision melanoma right shoulder PAST SURGICAL HISTORY OF Right 2017 bunionectoy TONSILLECTOMY HX TONSILLECTOMY PRIMARY/SECONDARY <AGE 12 childhood Tonsillectomy Family History FAMILY HISTORY Problem Relation Age of Onset Colon Cancer Mother ~70 Hypertension Mother Thyroid Mother Colon Cancer Father ~70 Hypertension Father Stroke Father Heart Father Hx of CHF Coronary Artery Disease Maternal Grandmother Hx of HI Diabetes Daughter Type I Patient Allergies ALLERGIES Allergen Reactions Sulfa (Sulfonamide * Swelling, Anaphylaxis Tongue/ throat swelled Phenergan Plain Vomiting Vomiting Hydrocodone-Acetami* GI Upset NAUSEA Procardia [Nifedipi* Swelling legs Current Medications Current Outpatient Medications on File Prior to Visit Medication Sig pravastatin (PRAVACHOL) 20 mg tablet Take 1 tablet by mouth daily at bedtime. spironolactone (ALDACTONE) 50 mg tablet Take 1 tablet by mouth once daily. lisinopril (ZESTRIL, PRINIVIL) 20 mg tablet Take 1 tablet by mouth once daily. nortriptyline (PAMELOR) 75 mg capsule Take 1 capsule by mouth daily at bedtime. rOPINIRole Hydrochloride 3 mg tablet Take 1 tablet by mouth daily at bedtime. meclizine (ANTIVERT) 12.5 mg tab Take 1 tablet by mouth every 6 hours as needed (dizziness). potassium chloride 20 mEq TbER Take 1 tablet by mouth twice daily. aspirin, enteric coated (ADULT LOW DOSE ASPIRIN) 81 mg EC tablet Take 1 tablet by mouth once daily. calcium carbonate(CALTRATE 600 600 MG (1,500 MG) TAB) DAILY MULTIVITAMIN TAB Take one(1) tablet daily. BIOTIN ORAL Take by mouth as directed. (Patient not taking: Reported on 04/19/2022) fluticasone (FLONASE) 50 mcg/actuation nasal spray Use 2 Sprays in each nostril once daily. Rinse mouth after use. (Patient not taking: Reported on 02/28/2022) No current facility-administered medications on file prior to visit. Social History Social History Tobacco Use Smoking status: Never Smokeless tobacco: Never Vaping Use Vaping Use: Never used Substance Use Topics Alcohol use: Yes Alcohol/week: 7.5 standard drinks Types: 3 Mixed Drinks per week Comment: 3-4/week Drug use: No Review of Symptoms REVIEW OF SYSTEMS See hpi EXAM: BP 134/70 Pulse 89 Resp 16 Wt 73.5 kg (162 lb) SpO2 98% BMI 29.72 kg/m General Appearance: Well appearing, alert, in no acute distress, well-hydrated, well nourished.. Skin: excoriated skin noted on arms and chest but no obvious rash.. Oropharynx: Lips, mucosa, and tongue normal, teeth and gums normal, oropharynx normal and no white plaques or lesions.. Health Maintenance List DTAP,TDAP,TD(2 - Tdap) due on 09/16/2009 SHINGRIX VACCINE(3 of 3) due on 11/09/2020 DEPRESSION ASSESSMENT Never done DIABETES SCREEN due on 12/03/2024 BONE DENSITY Completed INFLUENZA Completed COVID-19 VACCINE Completed PNEUMOCOCCAL: 65+ Completed ADVANCE DIRECTIVE DISCUSSION Discontinued Data reviewed ASSESSMENT/PLAN: 1. Pruritus - ICD9: 698.9, ICD10: L29.9 (primary diagnosis) Unclear etiology Check labs Start atarax and moisturizing cream Keep follow up with derm - TSH BLD 2. Hypokalemia - ICD9: 276.8, ICD10: E87.6 - POTASSIUM CHLORIDE ER 20 MEQ TABLET,EXTENDED RELEASE 3. Essential hypertension with goal blood pressure less than 140/90 - ICD9: 401.9, ICD10: I10 - COMP METABOLIC PANEL - CBC + DIFF - URINALYSIS, WITH MICROSCOPIC 4. Abnormal thyroid blood test - ICD9: 790.6, ICD10: R79.89 - TSH BLD 5. Mixed hyperlipidemia - ICD9: 272.2, ICD10: E78.2 - LIPID PANEL, NONFASTING 6. Vitamin D deficiency - ICD9: 268.9, ICD10: E55.9 - VITAMIN D 25 HYDROXY Destini Lay PA-C documented in this encounterC[facility]02-07-2023 Miscellaneous Notes* Telephone Encounter - Juan Spann MD - 04/16/2022 10:19 AM EST The following approved medication requests have been transmitted electronically. Requested Prescriptions Signed Prescriptions Disp Refills pravastatin (PRAVACHOL) 20 mg tablet 90 tablet 1 Sig: Take 1 tablet by mouth daily at bedtime. Authorizing Provider: JUAN SPANN MD * Telephone Encounter - Tova Diaz Ma - 04/16/2022 10:00 AM EST Last office visit: 12/03/21 F/u scheduled: 06/12/22 Tova Diaz Ma documented in this encounterC[facility]10-28-2022 Miscellaneous Notes* Telephone Encounter - Kelle Joyce MA - 01/04/2022 7:58 AM EDT Patient has been identified by name and date of : Yes Requested Prescriptions Pending Prescriptions Disp Refills nortriptyline (PAMELOR) 75 mg capsule 30 capsule 5 Sig: Take 1 capsule by mouth daily at bedtime. RX INSTRUCTIONS: Patient aware RX will be sent to pharmacy. No need to notify patient. Kelle Joyce MA Trudy: 11/2021 Nov: 06/2022 Last refill: 07/2021 documented in this encounterCleveland [facility]10-18-2022 Miscellaneous Notes* Telephone Encounter - Janet Carmen RN - 12/25/2021 3:48 PM EDT Surgery scheduled as requested and complete. * Telephone Encounter - Janet Carmen RN - 12/25/2021 10:42 AM EDT Surgical request submitted and post op appointments scheduled and mailed to the patient. * Telephone Encounter - Roxy Torres Ma - 12/25/2021 10:34 AM EDT I called and spoke with patient. She will be scheduled at [facility] on 01/17/2022 under local anesthesia. * Telephone Encounter - Lana Barajas PA-C - 12/18/2021 3:59 PM EDT Ok to schedule for Left CTR, needs to wait 1 month after cortisone injection before having surgery though. * Telephone Encounter - Roxy Torres Ma - 12/17/2021 2:59 PM EDT Patient called in stating carpal tunnel injection did not help. Injection was completed on 12/10/2021. She thought next step would be surgery. Please confirm if patient can be scheduled. documented in this encounterCleveland [facility]09-27-2022 Miscellaneous Notes* Telephone Encounter - Cintia Quiles LPN - 12/04/2021 9:58 AM EDT Patient has been identified by name and date of : Yes Patient phones for refill(s): Requested Prescriptions Pending Prescriptions Disp Refills rOPINIRole Hydrochloride 3 mg tablet 90 tablet 1 Sig: Take 1 tablet by mouth daily at bedtime. Date of last office visit in primary care: 12/03/2021 Please advise. Thank you. Cintia Quiles LPN documented in this encounterCleveland Clinic [facility]09-26-2022 Instructions* Patient Instructions* Destini Lay PA-C - 12/03/2021 1:06 PM EDT You are also due for 2nd dose of shingrix (shingles vaccines). documented in this encounterCleveland Clinic [facility]ucl[facility]09-26-2022 History of Present illness Narrative* Destini Lay PA-C - 12/03/2021 12:51 PM EDT Chief Complaint No chief complaint on file. HPI Spenser Putnam is a 80 year old female who presents here today for Chronic Medical Conditions.. Patient with hx of hyperlipidemia, HTN, vit d deficiency and those as below. Patient was seen in August for vertigo symptoms. She has had a CT and MRI that have both been normal but continues to have symptoms at random times. Mostly with rolling over. Denies tunnel vision or near syncope. Also has had more carpal tunnel symptoms. Past medical history, appointments, medications, allergies reviewed. 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 Macias, Rt anterior shoulder, Gilberto III, pT1a, pNX, pM N/A Mixed hyperlipidemia 10/13/2014 Multiple thyroid nodules 09/15/2017 CT neck09/2017 7 mm nodule, US .2018 multiple small nodules repeat 09/2019 Non morbid obesity 03/29/2016 Osteopenia, senile 07/02/2005 SEE DEXA 07/15 Other chronic dermatitis due to solar radiation 03/27/2006 Other psoriasis 04/16/2013 Other seborrheic keratosis 06/23/2006 Personal history of other malignant neoplasm of skin 03/22/2013 Raynaud's phenomenon without gangrene 06/07/2020 suspected Restless leg syndrome Sensorineural hearing loss, asymmetrical 10/08/2017 Solar lentigo 03/22/2013 Spondylolisthesis at L5-S1 level 10/20/2012 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 09/15/2012 Vitamin D deficiency 08/24/2016 Xerosis cutis 03/22/2013 Previous Surgical History PAST SURGICAL HISTORY Procedure Laterality Date BACK SURGERY HX 01/23/2021 lateral lumbar interbody fusion L3-4 CHOLECYSTECTOMY age 52 +/- laparoscopic cholecystectomy COLONOSCOPY 04/29/2013 Dr. Patton, repeat 5 yrs COLONOSCOPY FLX DX W/COLLJ SPEC WHEN PFRMD 07/09/2006 COLONOSCOPY FLX DX W/COLLJ SPEC WHEN PFRMD 04/29/2013 internal hemorrhoids, q5y for FHx COLONOSCOPY, GI 05/02/2000 FHx, repeat q5y DILATION & CURETTAGE DX&/THER NONOBSTETRIC Dilation & curettage PAST SURGICAL HISTORY OF 12/2011 squamous cell CA rt hand.left LE PAST SURGICAL HISTORY OF 04/2012 rt CTR-- endoscopic PAST SURGICAL HISTORY OF 2012 lumbar surgery- fusion PAST SURGICAL HISTORY OF 2014 excision melanoma right shoulder PAST SURGICAL HISTORY OF Right 2017 bunionectoy TONSILLECTOMY PRIMARY/SECONDARY <AGE 12 childhood Tonsillectomy Family History FAMILY HISTORY Problem Relation Age of Onset Colon Cancer Mother ~70 Hypertension Mother Thyroid Mother Colon Cancer Father ~70 Hypertension Father Stroke Father Heart Father Hx of CHF Coronary Artery Disease Maternal Grandmother Hx of HI Diabetes Daughter Type I Patient Allergies ALLERGIES Allergen Reactions Sulfa (Sulfonamide * Swelling, Anaphylaxis Tongue/ throat swelled Phenergan Plain Vomiting Vomiting Hydrocodone-Acetami* GI Upset NAUSEA Procardia [Nifedipi* Swelling legs Current Medications Current Outpatient Medications on File Prior to Visit Medication Sig BIOTIN ORAL Take by mouth as directed. lisinopril (ZESTRIL, PRINIVIL) 20 mg tablet Take 1 tablet by mouth once daily. pravastatin (PRAVACHOL) 20 mg tablet Take 1 tablet by mouth daily at bedtime. fluticasone (FLONASE) 50 mcg/actuation nasal spray Use 2 Sprays in each nostril once daily. Rinse mouth after use. meclizine (ANTIVERT) 12.5 mg tab Take 1 tablet by mouth every 6 hours as needed (dizziness). spironolactone (ALDACTONE) 50 mg tablet Take 1 tablet by mouth once daily. nortriptyline (PAMELOR) 75 mg capsule Take 1 capsule by mouth daily at bedtime. rOPINIRole Hydrochloride 3 mg tablet Take 1 tablet by mouth daily at bedtime. potassium chloride 20 mEq TbER Take 1 tablet by mouth twice daily. aspirin, enteric coated (ADULT LOW DOSE ASPIRIN) 81 mg EC tablet Take 1 tablet by mouth once daily. calcium carbonate(CALTRATE 600 600 MG (1,500 MG) TAB) DAILY MULTIVITAMIN TAB Take one(1) tablet daily. Current Facility-Administered Medications on File Prior to Visit Medication perflutren lipid microspheres 1.3 mL in NaCl (PF) 0.9% 10 mL injection (DEFINITY) sodium chloride 0.9 % (flush) 10 mL (BD POSIFLUSH) Social History Social History Tobacco Use Smoking status: Never Smokeless tobacco: Never Vaping Use Vaping Use: Never used Substance Use Topics Alcohol use: Yes Alcohol/week: 7.5 standard drinks Types: 3 Mixed Drinks per week Comment: 3-4/week Drug use: No Review of Symptoms REVIEW OF SYSTEMS GENERAL: No weight loss, malaise or fevers NECK: Negative for lumps, goiter, pain and significant neck swelling RESPIRATORY: Negative for cough, hemoptysis, wheezing, COPD, dyspnea or shortness of breath CARDIOVASCULAR: Negative for chest pain, leg swelling, hypertension, CHF or palpitations NEURO: see hpi. No history of headaches, syncope, paralysis, seizures or tremors EXAM: BP 120/76 (BP Site: Left Arm, BP Position: Sitting, BP Cuff Size: Large Adult) Pulse 88 Temp 36.9 C (98.5 F) Resp 18 Wt 71.7 kg (158 lb) BMI 28.98 kg/m General Appearance: Well appearing, alert, in no acute distress, well-hydrated, well nourished.. Neck: Supple, no adenopathy; thyroid symmetric, normal size, no bruits. Lungs: Lungs clear to auscultation. No wheezing, rhonchi, rales.. Heart: RRR without murmur, gallop, or rubs. No ectopy. Extremities: No deformities, edema, skin discoloration, clubbing or cyanosis. Good capillary refill. . Peripheral Pulses: Normal. Health Maintenance List DTAP,TDAP,TD(2 - Tdap) due on 09/16/2009 SHINGRIX VACCINE(3 of 3) due on 11/09/2020 COVID-19 VACCINE(5 - Booster for Pfizer series) due on 10/03/2021 INFLUENZA(1) due on 11/08/2021 ANNUAL PCP TEAM CHRONIC DISEASE VISIT due on 09/05/2022 BP CONTROLLED (<130/80) due on 09/05/2022 DIABETES SCREEN due on 05/08/2024 BONE DENSITY Completed PNEUMOCOCCAL: 65+ Completed ADVANCE DIRECTIVE DISCUSSION Discontinued DEPRESSION SCREENING Discontinued Data reviewed ASSESSMENT/PLAN: 1. Mixed hyperlipidemia - ICD9: 272.2, ICD10: E78.2 (primary diagnosis) - good control - Encouraged following a low carbohydrate, healthy oil intake diet. - Continue current therapy. 2. Essential hypertension with goal blood pressure less than 140/90 - ICD9: 401.9, ICD10: I10 - good control - Continue current medication(s) - Recommended regular aerobic exercise. - Recommend home blood pressure monitoring, to bring results in on next visit - Goal of BP <130/80 - BASIC METABOLIC PNL 3. Restless leg syndrome - ICD9: 333.94, ICD10: G25.81 stable 4. Vertigo - ICD9: 780.4, ICD10: R42 Patient declines further evaluation. Advised we could get consults to neuro and 5. Carpal tunnel syndrome, left - ICD9: 354.0, ICD10: G56.02 Will set up with ortho to determine tx options. Patient not ready for surgery but would like to discuss. - CONSULT TO ORTHOPAEDICS 6. Valvular heart disease - ICD9: 424.90, ICD10: I38 Stable. Follow up in 6 months. Sooner prn. Destini Lay PA-C documented in this encounterCleveland Clinic [facility]08-18-2022 Miscellaneous Notes* Telephone Encounter - Kelle Joyce MA - 10/25/2021 9:58 AM EDT Patient notified and voiced understanding. Kelle Joyce MA * Telephone Encounter - Destini Lay PA-C - 10/25/2021 9:07 AM EDT Let patient know that her MRI was stable compared to previous. No acute changes. Destini Lay PA-C documented in this encounterCleveland Clinic [facility]ucl[facility]08-17-2022 History of Present illness Narrative* RT Andres(R) - 10/24/2021 11:20 AM EDT Radiology Service Progress Note PATIENT NAME: Spenser Putnam DATE OF SERVICE: October 24, 2021 TIME: 11:57 AM PATIENT IDENTITY VERIFICATION COMPLETED USING TWO (2) IDENTIFIERS: Name and Date of confirmedby patient verbally. FALL SCREENING: Has the patient had 2 falls in the last year or 1 fall with injury or currently using an Ambulatory Assistive Device (Walker, Cane, Wheelchair, Crutches, etc.)? No PATIENT GENDER DATA: Female. status: : No status: NO. PATIENT RELEVANT IMPLANT DATA REVIEWED: Yes RADIOLOGY DEPARTMENT: MR; Exam(s) Completed: Head: Routine Brain PERIPHERAL IV DATA: Not applicable SIGNED BY: RT Andres(R) October 24, 2021 11:57 AM documented in this encounterCleveland Clinic [facility]ucl[facility]08-10-2022 Miscellaneous Notes* Telephone Encounter - Sol Eaton LPN - 10/17/2021 9:57 AM EDT Last office visit: 09/05/21 Next appointment scheduled: 10/22/21 Last labs: 04/18/21 Patient phones requesting refills as follows: Requested Prescriptions Pending Prescriptions Disp Refills pravastatin (PRAVACHOL) 20 mg tablet 90 tablet 1 Sig: Take 1 tablet by mouth daily at bedtime. Please review and advise. Sol Eaton LPN documented in this encounterCleveland Clinic Eucl[facility]07-19-2022 Miscellaneous Notes* Telephone Encounter - Destini Lay PA-C - 09/25/2021 12:03 PM EDT noted * Telephone Encounter - Rosalba Clement RN - 09/20/2021 9:22 AM EDT Patient calls and wanted provider to know that her nose has cleared up since she had appointment. She is still having problems with vertigo. Her MRI is next week. Rosalba Clement RN documented in this encounterCleveland Clinic [facility]ucl[facility]06-29-2022 History of Present illness Narrative* Destini Lay PA-C - 09/05/2021 12:14 PM EDT Chief Complaint Patient presents with: ER F/U: [facility] Spenser Putnam is a 80 year old female who presents here today for Above Complaints.. Patient was in ER after a fall on 08/31. States she tripped and fell. Hit her head on concrete. Was dazed after but denies complete LOC. Since this fall she has noted some vertigo symptoms. CT scan at ER were okay. No headache. Dizziness is only with movement. Worse with turning. Past medical history, appointments, medications, allergies reviewed. 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 Macias, Rt anterior shoulder, Gilberto III, pT1a, pNX, pM N/A Mixed hyperlipidemia 10/13/2014 Multiple thyroid nodules 09/15/2017 CT neck09/2017 7 mm nodule, US .2018 multiple small nodules repeat 09/2019 Non morbid obesity 03/29/2016 Osteopenia, senile 07/02/2005 SEE DEXA 07/15 Other chronic dermatitis due to solar radiation 03/27/2006 Other psoriasis 04/16/2013 Other seborrheic keratosis 06/23/2006 Personal history of other malignant neoplasm of skin 03/22/2013 Raynaud's phenomenon without gangrene 06/07/2020 suspected Restless leg syndrome Sensorineural hearing loss, asymmetrical 10/08/2017 Solar lentigo 03/22/2013 Spondylolisthesis at L5-S1 level 10/20/2012 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 09/15/2012 Vitamin D deficiency 08/24/2016 Xerosis cutis 03/22/2013 Previous Surgical History PAST SURGICAL HISTORY Procedure Laterality Date BACK SURGERY HX 01/23/2021 lateral lumbar interbody fusion L3-4 CHOLECYSTECTOMY age 52 +/- laparoscopic cholecystectomy COLONOSCOPY 04/29/2013 Dr. Patton, repeat 5 yrs COLONOSCOPY FLX DX W/COLLJ SPEC WHEN PFRMD 07/09/2006 COLONOSCOPY FLX DX W/COLLJ SPEC WHEN PFRMD 04/29/2013 internal hemorrhoids, q5y for FHx COLONOSCOPY, GI 05/02/2000 FHx, repeat q5y DILATION & CURETTAGE DX&/THER NONOBSTETRIC Dilation & curettage PAST SURGICAL HISTORY OF 12/2011 squamous cell CA rt hand.left LE PAST SURGICAL HISTORY OF 04/2012 rt CTR-- endoscopic PAST SURGICAL HISTORY OF 2012 lumbar surgery- fusion PAST SURGICAL HISTORY OF 2013 excision melanoma right shoulder PAST SURGICAL HISTORY OF Right 2017 bunionectoy TONSILLECTOMY PRIMARY/SECONDARY <AGE 12 childhood Tonsillectomy Family History FAMILY HISTORY Problem Relation Age of Onset Colon Cancer Mother ~70 Hypertension Mother Thyroid Mother Colon Cancer Father ~70 Hypertension Father Stroke Father Heart Father Hx of CHF Coronary Artery Disease Maternal Grandmother Hx of HI Diabetes Daughter Type I Patient Allergies ALLERGIES Allergen Reactions Sulfa (Sulfonamide * Swelling, Anaphylaxis Tongue/ throat swelled Phenergan Plain Vomiting Vomiting Hydrocodone-Acetami* GI Upset NAUSEA Procardia [Nifedipi* Swelling legs Current Medications Current Outpatient Medications on File Prior to Visit Medication Sig spironolactone (ALDACTONE) 50 mg tablet Take 1 tablet by mouth once daily. nortriptyline (PAMELOR) 75 mg capsule Take 1 capsule by mouth daily at bedtime. rOPINIRole Hydrochloride 3 mg tablet Take 1 tablet by mouth daily at bedtime. lisinopril (ZESTRIL, PRINIVIL) 20 mg tablet Take 1 tablet by mouth once daily. pravastatin (PRAVACHOL) 20 mg tablet Take 1 tablet by mouth daily at bedtime. potassium chloride 20 mEq TbER Take 1 tablet by mouth twice daily. aspirin, enteric coated (ADULT LOW DOSE ASPIRIN) 81 mg EC tablet Take 1 tablet by mouth once daily. calcium carbonate(CALTRATE 600 600 MG (1,500 MG) TAB) DAILY MULTIVITAMIN TAB Take one(1) tablet daily. Current Facility-Administered Medications on File Prior to Visit Medication perflutren lipid microspheres 1.3 mL in NaCl (PF) 0.9% 10 mL injection (DEFINITY) sodium chloride 0.9 % (flush) 10 mL (BD POSIFLUSH) Social History Social History Tobacco Use Smoking status: Never Smoker Smokeless tobacco: Never Used Vaping Use Vaping Use: Never used Substance Use Topics Alcohol use: Yes Alcohol/week: 7.5 standard drinks Types: 3 Mixed Drinks per week Comment: 3-4/week Drug use: No Review of Symptoms REVIEW OF SYSTEMS see hpi. EXAM: BP 110/62 (BP Site: Left Arm, BP Position: Sitting, BP Cuff Size: Large Adult) Pulse 88 Temp 36.6 C (97.9 F) Resp 16 Wt 73.9 kg (163 lb) BMI 29.90 kg/m General Appearance: Well appearing, alert, in no acute distress, well-hydrated, well nourished.. Ears: External ears normal, canals clear, TMS pearly mckenna. Nose/Sinuses: Nares normal, septum midline, mucosa normal, no drainage or sinus tenderness. Neck: Supple, no adenopathy; thyroid symmetric, normal size, no bruits. Lungs: Lungs clear to auscultation. No wheezing, rhonchi, rales. Heart: RRR without murmur, gallop, or rubs. No ectopy. Extremities: No deformities, edema, skin discoloration, clubbing or cyanosis. Good capillary refill. . Neurologic: patient symptomatic with dixhallpike. . Health Maintenance List DTAP,TDAP,TD(2 - Tdap) due on 09/16/2009 SHINGRIX VACCINE(3 of 3) due on 11/09/2020 ANNUAL PCP TEAM CHRONIC DISEASE VISIT due on 04/23/2022 BP CONTROLLED (<130/80) due on 05/14/2022 DIABETES SCREEN due on 05/08/2024 BONE DENSITY Completed INFLUENZA Completed COVID-19 VACCINE Completed PNEUMOCOCCAL: 65+ Completed ADVANCE DIRECTIVE DISCUSSION Discontinued DEPRESSION SCREENING Discontinued Data reviewed See HPI. ASSESSMENT/PLAN: 1. Vertigo - ICD9: 780.4, ICD10: R42 (primary diagnosis) Maybe related to patient's current sinus symptoms, but given it started after a head injury, would warrant additional imaging with an MRI. In meantime will have her try flonase and meclizine prn. F/u if worsening 2. Injury of head, initial encounter - ICD9: 959.01, ICD10: S09.90XA As above. - MRI BRAIN WO IVCON Destini Lay PA-C documented in this encounterC[facility] Miscellaneous Notes* Telephone Encounter - Mariano Adan Ma - 08/27/2021 11:11 AM EDT TRUDY: 04/23/2021 Last refill: 04/24/2021 QTY: 30 Refills: 5 Patient's request for medication is as follows: Pending Prescriptions Disp Refills SPIRONOLACTONE 50 MG TABLET 30 tablet 5 Sig: Take 1 tablet by mouth once daily. ROD: No Please approve the above prescription(s) to electronically send to pharmacy. Mariano Merinojed Horowitz documented in this encounterC[facility]05-02-2022 Miscellaneous Notes* Telephone Encounter - Juan Spann MD - 07/09/2021 10:22 AM EDT The following approved medication requests have been transmitted electronically. Signed Prescriptions Disp Refills nortriptyline (PAMELOR) 75 mg capsule 30 capsule 5 Sig: Take 1 capsule by mouth daily at bedtime. ROD: No Authorizing Provider: JUAN SPANN MD * Telephone Encounter - GUSTABO Burnett - 07/09/2021 10:00 AM EDT Patient has 5 days left. Patient has been identified by name and date of : Yes Patient phones for refill(s): Pending Prescriptions Disp Refills NORTRIPTYLINE 75 MG CAPSULE 30 capsule 5 Sig: Take 1 capsule by mouth daily at bedtime. ROD: No Date of last office visit in primary care: TRUDY 04/23/2021 Appointment scheduled 10/22/2021 Last 2 Encounter Wt Readings: Date: Wt: 04/23/2021 73.9 kg (163 lb) 12/22/2020 77.8 kg (171 lb 9.6 oz) Please advise. Thank you. GUSTABO Burnett documented in this encounterC[facility]04-18-2022 Miscellaneous Notes* Telephone Encounter - Jonas Milan LPN - 06/25/2021 7:28 AM EDT Last refill 10/20/20 Qty: 90 with 1 refill Pt has appt 10/22/21 Jonas Milan LPN documented in this encounterC[facility]02-07-[facility]22 History of Past illness Narrative* Problem Noted Date Resolved Date S/P lumbar fusion 04/16/2021 05/28/2021 Encounter for screening mammogram for breast can cer 02/21/2016 03/27/2016 Routine gynecological examination 10/13/2014 03/27/2016 Overview: [facility] Colon cancer screening 10/13/2014 7 Well adult exam 10/13/2014 03/27/2016 Overview: Last done: 02/21/2016 Routine general medical exam ination at a health care facility 08/24/2008 07/29/2011 Overview: 08/25/08 -- establish, from Dr. Ta 11/13/2010, yearly check-up Routine gynecological examination 08/24/2008 07/29/2011 Overview: [facility], [facility] [place] SOLAR LENGINES////DYSCHROMIA OTHER 03/27/2006 03/22/2013 XEROSIS////SEBACEOUS GLAND DIS NEC 03/27/2006 03/22/2013 Family history of malignant neoplasm of gastrointestinal tract 07/02/2005 03/27/2016 Overview: colon ca, both P's documented as of this encounter (statuses as of 06/25/2021) [facility] History of Past illness Narrative* Problem Noted Date Resolved Date S/P lumbar fusion 04/16/2021 05/28/2021 Encounter for screening mammogram for breast can cer 02/21/2016 03/27/2016 Routine gynecological examination 10/13/2014 03/27/2016 Overview: Seeing [facility] Colon cancer screening 10/13/2014 7 Well adult exam 10/13/2014 03/27/2016 Overview: Last done: 02/21/2016 Routine general medical exam ination at a health care facility 08/24/2008 07/29/2011 Overview: 08/25/08 -- establish, from Dr. Ta 11/13/2010, yearly check-up Routine gynecological examination 08/24/2008 07/29/2011 Overview: [facility], [facility] [place]////DYSCHROMIA OTHER 03/27/2006 03/22/2013 XEROSIS////SEBACEOUS GLAND DIS NEC 03/27/2006 03/22/2013 Family history of malignant neoplasm of gastrointestinal tract 07/02/2005 03/27/2016 Overview: colon ca, both P's documented as of this encounter (statuses as of 07/09/2021) [facility] History of Past illness Narrative* Problem Noted Date Resolved Date S/P lumbar fusion 04/16/2021 05/28/2021 Encounter for screening mammogram for breast can cer 02/21/2016 03/27/2016 Routine gynecological examination 10/13/2014 03/27/2016 Overview: Seeing [facility] Colon cancer screening 10/13/2014 7 Well adult exam 10/13/2014 03/27/2016 Overview: Last done: 02/21/2016 Routine general medical exam ination at a health care facility 08/24/2008 07/29/2011 Overview: 08/25/08 -- establish, from Dr. Ta 11/13/2010, yearly check-up Routine gynecological examination 08/24/2008 07/29/2011 Overview: [facility], [facility] [place] SOLAR LENGINES////DYSCHROMIA OTHER 03/27/2006 03/22/2013 XEROSIS////SEBACEOUS GLAND DIS NEC 03/27/2006 03/22/2013 Family history of malignant neoplasm of gastrointestinal tract 07/02/2005 03/27/2016 Overview: colon ca, both P's documented as of this encounter (statuses as of 08/27/2021) [facility] History of Past illness Narrative* Problem Noted Date Resolved Date S/P lumbar fusion 04/16/2021 05/28/2021 Encounter for screening mammogram for breast can cer 02/21/2016 03/27/2016 Routine gynecological examination 10/13/2014 03/27/2016 Overview: [facility] Colon cancer screening 10/13/2014 7 Well adult exam 10/13/2014 03/27/2016 Overview: Last done: 02/21/2016 Routine general medical exam ination at a health care facility 08/24/2008 07/29/2011 Overview: 08/25/08 -- establish, from Dr. Ta 11/13/2010, yearly check-up Routine gynecological examination 08/24/2008 07/29/2011 Overview: [facility], [facility] [place] SOLAR LENGINES////DYSCHROMIA OTHER 03/27/2006 03/22/2013 XEROSIS////SEBACEOUS GLAND DIS NEC 03/27/2006 03/22/2013 Family history of malignant neoplasm of gastrointestinal tract 07/02/2005 03/27/2016 Overview: colon ca, both P's documented as of this encounter (statuses as of 09/05/2021) [facility] of Past illness Narrative* Problem Noted Date Resolved Date S/P lumbar fusion 04/16/2021 05/28/2021 Encounter for screening mammogram for breast can cer 02/21/2016 03/27/2016 Routine gynecological examination 10/13/2014 03/27/2016 Overview: Seeing [facility] Colon cancer screening 10/13/2014 7 Well adult exam 10/13/2014 03/27/2016 Overview: Last done: 02/21/2016 Routine general medical exam ination at a health care facility 08/24/2008 07/29/2011 Overview: 08/25/08 -- establish, from Dr. Ta 11/13/2010, yearly check-up Routine gynecological examination 08/24/2008 07/29/2011 Overview: [facility], [facility] [place]////DYSCHROMIA OTHER 03/27/2006 03/22/2013 XEROSIS////SEBACEOUS GLAND DIS NEC 03/27/2006 03/22/2013 Family history of malignant neoplasm of gastrointestinal tract 07/02/2005 03/27/2016 Overview: colon ca, both P's documented as of this encounter (statuses as of 09/25/2021) [facility] of Past illness Narrative* Problem Noted Date Resolved Date S/P lumbar fusion 04/16/2021 05/28/2021 Encounter for screening mammogram for breast can cer 02/21/2016 03/27/2016 Routine gynecological examination 10/13/2014 03/27/2016 Overview: Seeing [facility] Colon cancer screening 10/13/2014 7 Well adult exam 10/13/2014 03/27/2016 Overview: Last done: 02/21/2016 Routine general medical exam ination at a health care facility 08/24/2008 07/29/2011 Overview: 08/25/08 -- establish, from Dr. Ta 11/13/2010, yearly check-up Routine gynecological examination 08/24/2008 07/29/2011 Overview: [facility], [facility] [place] SOLAR LENGINES////DYSCHROMIA OTHER 03/27/2006 03/22/2013 XEROSIS////SEBACEOUS GLAND DIS NEC 03/27/2006 03/22/2013 Family history of malignant neoplasm of gastrointestinal tract 07/02/2005 03/27/2016 Overview: colon ca, both P's documented as of this encounter (statuses as of 10/17/2021) [facility] of Past illness Narrative* Problem Noted Date Resolved Date S/P lumbar fusion 04/16/2021 05/28/2021 Encounter for screening mammogram for breast can cer 02/21/2016 03/27/2016 Routine gynecological examination 10/13/2014 03/27/2016 Overview: [facility] Colon cancer screening 10/13/2014 7 Well adult exam 10/13/2014 03/27/2016 Overview: Last done: 02/21/2016 Routine general medical exam ination at a health care facility 08/24/2008 07/29/2011 Overview: 08/25/08 -- establish, from Dr. Ta 11/13/2010, yearly check-up Routine gynecological examination 08/24/2008 07/29/2011 Overview: [facility], [facility] [place] SOLAR LENGINES////DYSCHROMIA OTHER 03/27/2006 03/22/2013 XEROSIS////SEBACEOUS GLAND DIS NEC 03/27/2006 03/22/2013 Family history of malignant neoplasm of gastrointestinal tract 07/02/2005 03/27/2016 Overview: colon ca, both P's documented as of this encounter (statuses as of 10/25/2021) [facility] of Past illness Narrative* Problem Noted Date Resolved Date S/P lumbar fusion 04/16/2021 05/28/2021 Encounter for screening mammogram for breast can cer 02/21/2016 03/27/2016 Routine gynecological examination 10/13/2014 03/27/2016 Overview: Seeing [facility] Colon cancer screening 10/13/2014 7 Well adult exam 10/13/2014 03/27/2016 Overview: Last done: 02/21/2016 Routine general medical exam ination at a health care facility 08/24/2008 07/29/2011 Overview: 08/25/08 -- establish, from Dr. Ta 11/13/2010, yearly check-up Routine gynecological examination 08/24/2008 07/29/2011 Overview: [facility], [facility] [place] ARGUETAES////DYSCHROMIA OTHER 03/27/2006 03/22/2013 XEROSIS////SEBACEOUS GLAND DIS NEC 03/27/2006 03/22/2013 Family history of malignant neoplasm of gastrointestinal tract 07/02/2005 03/27/2016 Overview: colon ca, both P's documented as of this encounter (statuses as of 10/25/2021) [facility] of Past illness Narrative* Problem Noted Date Resolved Date S/P lumbar fusion 04/16/2021 05/28/2021 Encounter for screening mammogram for breast can cer 02/21/2016 03/27/2016 Routine gynecological examination 10/13/2014 03/27/2016 Overview: Seeing [facility] Colon cancer screening 10/13/2014 7 Well adult exam 10/13/2014 03/27/2016 Overview: Last done: 02/21/2016 Routine general medical exam ination at a health care facility 08/24/2008 07/29/2011 Overview: 08/25/08 -- establish, from Dr. Ta 11/13/2010, yearly check-up Routine gynecological examination 08/24/2008 07/29/2011 Overview: [facility], [facility] [place] SOLAR LENGINES////DYSCHROMIA OTHER 03/27/2006 03/22/2013 XEROSIS////SEBACEOUS GLAND DIS NEC 03/27/2006 03/22/2013 Family history of malignant neoplasm of gastrointestinal tract 07/02/2005 03/27/2016 Overview: colon ca, both P's documented as of this encounter (statuses as of 12/03/2021) [facility] of Past illness Narrative* Problem Noted Date Resolved Date S/P lumbar fusion 04/16/2021 05/28/2021 Encounter for screening mammogram for breast can cer 02/21/2016 03/27/2016 Routine gynecological examination 10/13/2014 03/27/2016 Overview: [facility] Colon cancer screening 10/13/2014 7 Well adult exam 10/13/2014 03/27/2016 Overview: Last done: 02/21/2016 Routine general medical exam ination at a health care facility 08/24/2008 07/29/2011 Overview: 08/25/08 -- establish, from Dr. Ta 11/13/2010, yearly check-up Routine gynecological examination 08/24/2008 07/29/2011 Overview: [facility], [facility] [place] SOLAR LENGINES////DYSCHROMIA OTHER 03/27/2006 03/22/2013 XEROSIS////SEBACEOUS GLAND DIS NEC 03/27/2006 03/22/2013 Family history of malignant neoplasm of gastrointestinal tract 07/02/2005 03/27/2016 Overview: colon ca, both P's documented as of this encounter (statuses as of 12/04/2021) [facility] of Past illness Narrative* Problem Noted Date Resolved Date S/P lumbar fusion 04/16/2021 05/28/2021 Encounter for screening mammogram for breast can cer 02/21/2016 03/27/2016 Routine gynecological examination 10/13/2014 03/27/2016 Overview: Seeing [facility] Colon cancer screening 10/13/2014 7 Well adult exam 10/13/2014 03/27/2016 Overview: Last done: 02/21/2016 Routine general medical exam ination at a health care facility 08/24/2008 07/29/2011 Overview: 08/25/08 -- establish, from Dr. Ta 11/13/2010, yearly check-up Routine gynecological examination 08/24/2008 07/29/2011 Overview: [facility], [facility] [place] MADDOX////DYSCHROMIA OTHER 03/27/2006 03/22/2013 XEROSIS////SEBACEOUS GLAND DIS NEC 03/27/2006 03/22/2013 Family history of malignant neoplasm of gastrointestinal tract 07/02/2005 03/27/2016 Overview: colon ca, both P's documented as of this encounter (statuses as of 12/25/2021) [facility] of Past illness Narrative* Problem Noted Date Resolved Date S/P lumbar fusion 04/16/2021 05/28/2021 Encounter for screening mammogram for breast can cer 02/21/2016 03/27/2016 Routine gynecological examination 10/13/2014 03/27/2016 Overview: Seeing [facility] Colon cancer screening 10/13/2014 7 Well adult exam 10/13/2014 03/27/2016 Overview: Last done: 02/21/2016 Routine general medical exam ination at a health care facility 08/24/2008 07/29/2011 Overview: 08/25/08 -- establish, from Dr. Ta 11/13/2010, yearly check-up Routine gynecological examination 08/24/2008 07/29/2011 Overview: [facility], [facility] [place] SOLAR LENGINES////DYSCHROMIA OTHER 03/27/2006 03/22/2013 XEROSIS////SEBACEOUS GLAND DIS NEC 03/27/2006 03/22/2013 Family history of malignant neoplasm of gastrointestinal tract 07/02/2005 03/27/2016 Overview: colon ca, both P's documented as of this encounter (statuses as of 01/04/2022) [facility] of Past illness Narrative* Problem Noted Date Resolved Date S/P lumbar fusion 04/16/2021 05/28/2021 Encounter for screening mammogram for breast can cer 02/21/2016 03/27/2016 Routine gynecological examination 10/13/2014 03/27/2016 Overview: [facility] Colon cancer screening 10/13/2014 7 Well adult exam 10/13/2014 03/27/2016 Overview: Last done: 02/21/2016 Routine general medical exam ination at a health care facility 08/24/2008 07/29/2011 Overview: 08/25/08 -- establish, from Dr. Ta 11/13/2010, yearly check-up Routine gynecological examination 08/24/2008 07/29/2011 Overview: [facility], [facility] [place] SOLAR LENGINES////DYSCHROMIA OTHER 03/27/2006 03/22/2013 XEROSIS////SEBACEOUS GLAND DIS NEC 03/27/2006 03/22/2013 Family history of malignant neoplasm of gastrointestinal tract 07/02/2005 03/27/2016 Overview: colon ca, both P's documented as of this encounter (statuses as of 01/04/2022) [facility] of Past illness Narrative* Problem Noted Date Resolved Date S/P lumbar fusion 04/16/2021 05/28/2021 Encounter for screening mammogram for breast can cer 02/21/2016 03/27/2016 Routine gynecological examination 10/13/2014 03/27/2016 Overview: Seeing [facility] Colon cancer screening 10/13/2014 7 Well adult exam 10/13/2014 03/27/2016 Overview: Last done: 02/21/2016 Routine general medical exam ination at a health care facility 08/24/2008 07/29/2011 Overview: 08/25/08 -- establish, from Dr. Ta 11/13/2010, yearly check-up Routine gynecological examination 08/24/2008 07/29/2011 Overview: [facility], [facility] [place] ARGUETAES////DYSCHROMIA OTHER 03/27/2006 03/22/2013 XEROSIS////SEBACEOUS GLAND DIS NEC 03/27/2006 03/22/2013 Family history of malignant neoplasm of gastrointestinal tract 07/02/2005 03/27/2016 Overview: colon ca, both P's documented as of this encounter (statuses as of 04/16/2022) [facility] of Past illness Narrative* Problem Noted Date Resolved Date S/P lumbar fusion 04/16/2021 05/28/2021 Encounter for screening mammogram for breast can cer 02/21/2016 03/27/2016 Routine gynecological examination 10/13/2014 03/27/2016 Overview: Seeing [facility] Colon cancer screening 10/13/2014 7 Well adult exam 10/13/2014 03/27/2016 Overview: Last done: 02/21/2016 Routine general medical exam ination at a health care facility 08/24/2008 07/29/2011 Overview: 08/25/08 -- establish, from Dr. Ta 11/13/2010, yearly check-up Routine gynecological examination 08/24/2008 07/29/2011 Overview: [facility], [facility] [place] SOLAR LENGINES////DYSCHROMIA OTHER 03/27/2006 03/22/2013 XEROSIS////SEBACEOUS GLAND DIS NEC 03/27/2006 03/22/2013 Family history of malignant neoplasm of gastrointestinal tract 07/02/2005 03/27/2016 Overview: colon ca, both P's documented as of this encounter (statuses as of 04/19/2022) [facility] of Past illness Narrative* Problem Noted Date Resolved Date S/P lumbar fusion 04/16/2021 05/28/2021 Encounter for screening mammogram for breast can cer 02/21/2016 03/27/2016 Routine gynecological examination 10/13/2014 03/27/2016 Overview: [facility] Colon cancer screening 10/13/2014 7 Well adult exam 10/13/2014 03/27/2016 Overview: Last done: 02/21/2016 Routine general medical exam ination at a health care facility 08/24/2008 07/29/2011 Overview: 08/25/08 -- establish, from Dr. Ta 11/13/2010, yearly check-up Routine gynecological examination 08/24/2008 07/29/2011 Overview: [facility], [facility] [place] SOLAR LENGINES////DYSCHROMIA OTHER 03/27/2006 03/22/2013 XEROSIS////SEBACEOUS GLAND DIS NEC 03/27/2006 03/22/2013 Family history of malignant neoplasm of gastrointestinal tract 07/02/2005 03/27/2016 Overview: colon ca, both P's documented as of this encounter (statuses as of 04/22/2022) [facility] of Past illness Narrative* Problem Noted Date Resolved Date S/P lumbar fusion 04/16/2021 05/28/2021 Encounter for screening mammogram for breast can cer 02/21/2016 03/27/2016 Routine gynecological examination 10/13/2014 03/27/2016 Overview: Seeing [facility] Colon cancer screening 10/13/2014 7 Well adult exam 10/13/2014 03/27/2016 Overview: Last done: 02/21/2016 Routine general medical exam ination at a health care facility 08/24/2008 07/29/2011 Overview: 08/25/08 -- establish, from Dr. Ta 11/13/2010, yearly check-up Routine gynecological examination 08/24/2008 07/29/2011 Overview: [facility], [facility] [place] SOLAR LENGINES////DYSCHROMIA OTHER 03/27/2006 03/22/2013 XEROSIS////SEBACEOUS GLAND DIS NEC 03/27/2006 03/22/2013 Family history of malignant neoplasm of gastrointestinal tract 07/02/2005 03/27/2016 Overview: colon ca, both P's documented as of this encounter (statuses as of 05/07/2022) [facility] of Past illness Narrative* Problem Noted Date Resolved Date S/P lumbar fusion 04/16/2021 05/28/2021 Encounter for screening mammogram for breast can cer 02/21/2016 03/27/2016 Routine gynecological examination 10/13/2014 03/27/2016 Overview: Seeing [facility] Colon cancer screening 10/13/2014 7 Well adult exam 10/13/2014 03/27/2016 Overview: Last done: 02/21/2016 Routine general medical exam ination at a health care facility 08/24/2008 07/29/2011 Overview: 08/25/08 -- establish, from Dr. Ta 11/13/2010, yearly check-up Routine gynecological examination 08/24/2008 07/29/2011 Overview: [facility], [facility] [place] SOLAR LENGINES////DYSCHROMIA OTHER 03/27/2006 03/22/2013 XEROSIS////SEBACEOUS GLAND DIS NEC 03/27/2006 03/22/2013 Family history of malignant neoplasm of gastrointestinal tract 07/02/2005 03/27/2016 Overview: colon ca, both P's documented as of this encounter (statuses as of 05/17/2022) [facility] of Past illness Narrative* Problem Noted Date Resolved Date S/P lumbar fusion 04/16/2021 05/28/2021 Encounter for screening mammogram for breast can cer 02/21/2016 03/27/2016 Routine gynecological examination 10/13/2014 03/27/2016 Overview: [facility] Colon cancer screening 10/13/2014 7 Well adult exam 10/13/2014 03/27/2016 Overview: Last done: 02/21/2016 Routine general medical exam ination at a health care facility 08/24/2008 07/29/2011 Overview: 08/25/08 -- establish, from Dr. Ta 11/13/2010, yearly check-up Routine gynecological examination 08/24/2008 07/29/2011 Overview: [facility], [facility] [place] SOLAR LENGINES////DYSCHROMIA OTHER 03/27/2006 03/22/2013 XEROSIS////SEBACEOUS GLAND DIS NEC 03/27/2006 03/22/2013 Family history of malignant neoplasm of gastrointestinal tract 07/02/2005 03/27/2016 Overview: colon ca, both P's documented as of this encounter (statuses as of 05/18/2022) [facility]02-07-2022 History of Past illness Narrative* Problem Noted Date Resolved Date S/P lumbar fusion 04/16/2021 05/28/2021 Encounter for screening mammogram for breast can cer 02/21/2016 03/27/2016 Routine gynecological examination 10/13/2014 03/27/2016 Overview: Seeing [facility] Colon cancer screening 10/13/2014 7 Well adult exam 10/13/2014 03/27/2016 Overview: Last done: 02/21/2016 Routine general medical exam ination at a health care facility 08/24/2008 07/29/2011 Overview: 08/25/08 -- establish, from Dr. Ta 11/13/2010, yearly check-up Routine gynecological examination 08/24/2008 07/29/2011 Overview: [facility], [facility] [place] SOLAR LENGINES////DYSCHROMIA OTHER 03/27/2006 03/22/2013 XEROSIS////SEBACEOUS GLAND DIS NEC 03/27/2006 03/22/2013 Family history of malignant neoplasm of gastrointestinal tract 07/02/2005 03/27/2016 Overview: colon ca, both P's documented as of this encounter (statuses as of 05/20/2022) [facility]07[facility]2022 History of Past illness Narrative* Problem Noted Date Resolved Date S/P lumbar fusion 04/16/2021 05/28/2021 Encounter for screening mammogram for breast can cer 02/21/2016 03/27/2016 Routine gynecological examination 10/13/2014 03/27/2016 Overview: Seeing [facility] Colon cancer screening 10/13/2014 7 Well adult exam 10/13/2014 03/27/2016 Overview: Last done: 02/21/2016 Routine general medical exam ination at a health care facility 08/24/2008 07/29/2011 Overview: 08/25/08 -- establish, from Dr. Ta 11/13/2010, yearly check-up Routine gynecological examination 08/24/2008 07/29/2011 Overview: [facility], [facility] [place] SOLAR LENGINES////DYSCHROMIA OTHER 03/27/2006 03/22/2013 XEROSIS////SEBACEOUS GLAND DIS NEC 03/27/2006 03/22/2013 Family history of malignant neoplasm of gastrointestinal tract 07/02/2005 03/27/2016 Overview: colon ca, both P's documented as of this encounter (statuses as of 05/23/2022) [facility] History of Past illness Narrative* Problem Noted Date Resolved Date S/P lumbar fusion 04/16/2021 05/28/2021 Encounter for screening mammogram for breast can cer 02/21/2016 03/27/2016 Routine gynecological examination 10/13/2014 03/27/2016 Overview: [facility] Colon cancer screening 10/13/2014 7 Well adult exam 10/13/2014 03/27/2016 Overview: Last done: 02/21/2016 Routine general medical exam ination at a health care facility 08/24/2008 07/29/2011 Overview: 08/25/08 -- establish, from Dr. Ta 11/13/2010, yearly check-up Routine gynecological examination 08/24/2008 07/29/2011 Overview: [facility], [facility] [place] SOLAR LENGINES////DYSCHROMIA OTHER 03/27/2006 03/22/2013 XEROSIS////SEBACEOUS GLAND DIS NEC 03/27/2006 03/22/2013 Family history of malignant neoplasm of gastrointestinal tract 07/02/2005 03/27/2016 Overview: colon ca, both P's documented as of this encounter (statuses as of 07/08/2022) [facility] History of Past illness Narrative* Problem Noted Date Resolved Date S/P lumbar fusion 04/16/2021 05/28/2021 Encounter for screening mammogram for breast can cer 02/21/2016 03/27/2016 Routine gynecological examination 10/13/2014 03/27/2016 Overview: Seeing [facility] Colon cancer screening 10/13/2014 7 Well adult exam 10/13/2014 03/27/2016 Overview: Last done: 02/21/2016 Routine general medical exam ination at a health care facility 08/24/2008 07/29/2011 Overview: 08/25/08 -- establish, from Dr. Ta 11/13/2010, yearly check-up Routine gynecological examination 08/24/2008 07/29/2011 Overview: [facility], [facility] [place] SOLAR LENGINES////DYSCHROMIA OTHER 03/27/2006 03/22/2013 XEROSIS////SEBACEOUS GLAND DIS NEC 03/27/2006 03/22/2013 Family history of malignant neoplasm of gastrointestinal tract 07/02/2005 03/27/2016 Overview: colon ca, both P's documented as of this encounter (statuses as of 07/16/2022) [facility] History of Past illness Narrative* Problem Noted Date Resolved Date S/P lumbar fusion 04/16/2021 05/28/2021 Encounter for screening mammogram for breast can cer 02/21/2016 03/27/2016 Routine gynecological examination 10/13/2014 03/27/2016 Overview: Seeing [facility] Colon cancer screening 10/13/2014 7 Well adult exam 10/13/2014 03/27/2016 Overview: Last done: 02/21/2016 Routine general medical exam ination at a health care facility 08/24/2008 07/29/2011 Overview: 08/25/08 -- establish, from Dr. Ta 11/13/2010, yearly check-up Routine gynecological examination 08/24/2008 07/29/2011 Overview: [facility], [facility] [place] SOLAR LENGINES////DYSCHROMIA OTHER 03/27/2006 03/22/2013 XEROSIS////SEBACEOUS GLAND DIS NEC 03/27/2006 03/22/2013 Family history of malignant neoplasm of gastrointestinal tract 07/02/2005 03/27/2016 Overview: colon ca, both P's documented as of this encounter (statuses as of 07/23/2022) [facility] History of Past illness Narrative* Problem Noted Date Diagnosed Date Resolved Date S/P lumbar fusion 04/16/2021 05/28/2021 Encounter for screening mamm ogram for breast cancer 02/21/2016 03/27/2016 Routine gynecological examination 10/13/2014 03/27/2016 Overview: [facility] Colon cancer screening 10/13/201403/27 Well adult exam 10/13/2014 03/27/2016 Overview: Last done: 02/21/2016 Routine general medical exam ination at a health care facility 08/24/2008 07/29/2011 Overview: 08/25/08 -- establish, from Dr. Ta 11/13/2010, yearly check-up Routine gynecological examination 08/24/2008 07/29/2011 Overview: [facility], [facility] [place] SOLAR LENGINES////DYSCHROMIA OTHER 03/27/2006 03/22/2013 XEROSIS////SEBACEOUS GLAND DIS NEC 03/27/2006 03/22/2013 Family history of malignant neoplasm of gastrointestinal tract 07/02/2005 03/27/2016 Overview: colon ca, both P's documented as of this encounter (statuses as of 09/17/2022) [facility] History of Past illness Narrative* Problem Noted Date Diagnosed Date Resolved Date S/P lumbar fusion 04/16/2021 05/28/2021 Encounter for screening mamm ogram for breast cancer 02/21/2016 03/27/2016 Routine gynecological examination 10/13/2014 03/27/2016 Overview: Seeing [facility] Colon cancer screening 10/13/201403/27 Well adult exam 10/13/2014 03/27/2016 Overview: Last done: 02/21/2016 Routine general medical exam ination at a health care facility 08/24/2008 07/29/2011 Overview: 08/25/08 -- establish, from Dr. Ta 11/13/2010, yearly check-up Routine gynecological examination 08/24/2008 07/29/2011 Overview: [facility], [facility] [place] SOLAR LENGINES////DYSCHROMIA OTHER 03/27/2006 03/22/2013 XEROSIS////SEBACEOUS GLAND DIS NEC 03/27/2006 03/22/2013 Family history of malignant neoplasm of gastrointestinal tract 07/02/2005 03/27/2016 Overview: colon ca, both P's documented as of this encounter (statuses as of 10/10/2022) [facility] History of Past illness Narrative* Problem Noted Date Diagnosed Date Resolved Date S/P lumbar fusion 04/16/2021 05/28/2021 Encounter for screening mamm ogram for breast cancer 02/21/2016 03/27/2016 Routine gynecological examination 10/13/2014 03/27/2016 Overview: Seeing [facility] Colon cancer screening 10/13/201403/27 Well adult exam 10/13/2014 03/27/2016 Overview: Last done: 02/21/2016 Routine general medical exam ination at a health care facility 08/24/2008 07/29/2011 Overview: 08/25/08 -- establish, from Dr. Ta 11/13/2010, yearly check-up Routine gynecological examination 08/24/2008 07/29/2011 Overview: [facility], [facility] [place] SOLAR LENGINES////DYSCHROMIA OTHER 03/27/2006 03/22/2013 XEROSIS////SEBACEOUS GLAND DIS NEC 03/27/2006 03/22/2013 Family history of malignant neoplasm of gastrointestinal tract 07/02/2005 03/27/2016 Overview: colon ca, both P's documented as of this encounter (statuses as of 10/14/2022) [facility] History of Past illness Narrative* Problem Noted Date Diagnosed Date Resolved Date S/P lumbar fusion 04/16/2021 05/28/2021 Encounter for screening mamm ogram for breast cancer 02/21/2016 03/27/2016 Routine gynecological examination 10/13/2014 03/27/2016 Overview: [facility] Colon cancer screening 10/13/201403/27 Well adult exam 10/13/2014 03/27/2016 Overview: Last done: 02/21/2016 Routine general medical exam ination at a health care facility 08/24/2008 07/29/2011 Overview: 08/25/08 -- establish, from Dr. Ta 11/13/2010, yearly check-up Routine gynecological examination 08/24/2008 07/29/2011 Overview: [facility], [facility] [place] SOLAR LENGINES////DYSCHROMIA OTHER 03/27/2006 03/22/2013 XEROSIS////SEBACEOUS GLAND DIS NEC 03/27/2006 03/22/2013 Family history of malignant neoplasm of gastrointestinal tract 07/02/2005 03/27/2016 Overview: colon ca, both P's documented as of this encounter (statuses as of 10/17/2022) [facility] History of Past illness Narrative* Problem Noted Date Diagnosed Date Resolved Date S/P lumbar fusion 04/16/2021 05/28/2021 Encounter for screening mamm ogram for breast cancer 02/21/2016 03/27/2016 Routine gynecological examination 10/13/2014 03/27/2016 Overview: Seeing [facility] Colon cancer screening 10/13/201403/27 Well adult exam 10/13/2014 03/27/2016 Overview: Last done: 02/21/2016 Routine general medical exam ination at a health care facility 08/24/2008 07/29/2011 Overview: 08/25/08 -- establish, from Dr. Ta 11/13/2010, yearly check-up Routine gynecological examination 08/24/2008 07/29/2011 Overview: [facility], [facility] [place]ES////DYSCHROMIA OTHER 03/27/2006 03/22/2013 XEROSIS////SEBACEOUS GLAND DIS NEC 03/27/2006 03/22/2013 Family history of malignant neoplasm of gastrointestinal tract 07/02/2005 03/27/2016 Overview: colon ca, both P's documented as of this encounter (statuses as of 11/15/2022) [facility] History of Past illness Narrative* Problem Noted Date Diagnosed Date Resolved Date S/P lumbar fusion 04/16/2021 05/28/2021 Encounter for screening mamm ogram for breast cancer 02/21/2016 03/27/2016 Routine gynecological examination 10/13/2014 03/27/2016 Overview: Seeing [facility] Colon cancer screening 10/13/201403/27 Well adult exam 10/13/2014 03/27/2016 Overview: Last done: 02/21/2016 Routine general medical exam ination at a health care facility 08/24/2008 07/29/2011 Overview: 08/25/08 -- establish, from Dr. Ta 11/13/2010, yearly check-up Routine gynecological examination 08/24/2008 07/29/2011 Overview: [facility], [facility] [place] SOLAR LENGINES////DYSCHROMIA OTHER 03/27/2006 03/22/2013 XEROSIS////SEBACEOUS GLAND DIS NEC 03/27/2006 03/22/2013 Family history of malignant neoplasm of gastrointestinal tract 07/02/2005 03/27/2016 Overview: colon ca, both P's documented as of this encounter (statuses as of 2022) [facility] History of Past illness Narrative* Problem Noted Date Diagnosed Date Resolved Date S/P lumbar fusion 04/16/2021 05/28/2021 Encounter for screening mamm ogram for breast cancer 02/21/2016 03/27/2016 Routine gynecological examination 10/13/2014 03/27/2016 Overview: [facility] Colon cancer screening 10/13/201403/27 Well adult exam 10/13/2014 03/27/2016 Overview: Last done: 02/21/2016 Routine general medical exam ination at a health care facility 08/24/2008 07/29/2011 Overview: 08/25/08 -- establish, from Dr. Ta 11/13/2010, yearly check-up Routine gynecological examination 08/24/2008 07/29/2011 Overview: [facility], [facility] [place] SOLAR LENGINES////DYSCHROMIA OTHER 03/27/2006 03/22/2013 XEROSIS////SEBACEOUS GLAND DIS NEC 03/27/2006 03/22/2013 Family history of malignant neoplasm of gastrointestinal tract 07/02/2005 03/27/2016 Overview: colon ca, both P's documented as of this encounter (statuses as of 12/20/2022) [facility] History of Past illness Narrative* Problem Noted Date Diagnosed Date Resolved Date S/P lumbar fusion 04/16/2021 05/28/2021 Encounter for screening mamm ogram for breast cancer 02/21/2016 03/27/2016 Routine gynecological examination 10/13/2014 03/27/2016 Overview: Seeing [facility] Colon cancer screening 10/13/201403/27 Well adult exam 10/13/2014 03/27/2016 Overview: Last done: 02/21/2016 Routine general medical exam ination at a health care facility 08/24/2008 07/29/2011 Overview: 08/25/08 -- establish, from Dr. Ta 11/13/2010, yearly check-up Routine gynecological examination 08/24/2008 07/29/2011 Overview: [facility], [facility] [place] CLEMENTGINES////DYSCHROMIA OTHER 03/27/2006 03/22/2013 XEROSIS////SEBACEOUS GLAND DIS NEC 03/27/2006 03/22/2013 Family history of malignant neoplasm of gastrointestinal tract 07/02/2005 03/27/2016 Overview: colon ca, both P's documented as of this encounter (statuses as of 12/27/2022) [facility] History of Past illness Narrative* Problem Noted Date Diagnosed Date Resolved Date S/P lumbar fusion 04/16/2021 05/28/2021 Encounter for screening mamm ogram for breast cancer 02/21/2016 03/27/2016 Routine gynecological examination 10/13/2014 03/27/2016 Overview: Seeing [facility] Colon cancer screening 10/13/201403/27 Well adult exam 10/13/2014 03/27/2016 Overview: Last done: 02/21/2016 Routine general medical exam ination at a health care facility 08/24/2008 07/29/2011 Overview: 08/25/08 -- establish, from Dr. Ta 11/13/2010, yearly check-up Routine gynecological examination 08/24/2008 07/29/2011 Overview: [facility], [facility] [place] SOLAR LENGINES////DYSCHROMIA OTHER 03/27/2006 03/22/2013 XEROSIS////SEBACEOUS GLAND DIS NEC 03/27/2006 03/22/2013 Family history of malignant neoplasm of gastrointestinal tract 07/02/2005 03/27/2016 Overview: colon ca, both P's documented as of this encounter (statuses as of 01/12/2023) [facility] History of Past illness Narrative* Problem Noted Date Diagnosed Date Resolved Date S/P lumbar fusion 04/16/2021 05/28/2021 Encounter for screening mamm ogram for breast cancer 02/21/2016 03/27/2016 Routine gynecological examination 10/13/2014 03/27/2016 Overview: [facility] Colon cancer screening 10/13/201403/27 Well adult exam 10/13/2014 03/27/2016 Overview: Last done: 02/21/2016 Routine general medical exam ination at a health care facility 08/24/2008 07/29/2011 Overview: 08/25/08 -- establish, from Dr. Ta 11/13/2010, yearly check-up Routine gynecological examination 08/24/2008 07/29/2011 Overview: [facility], [facility] [place] SOLAR LENGINES////DYSCHROMIA OTHER 03/27/2006 03/22/2013 XEROSIS////SEBACEOUS GLAND DIS NEC 03/27/2006 03/22/2013 Family history of malignant neoplasm of gastrointestinal tract 07/02/2005 03/27/2016 Overview: colon ca, both P's documented as of this encounter (statuses as of 02/10/2023) [facility] History of Past illness Narrative* Problem Noted Date Diagnosed Date Resolved Date S/P lumbar fusion 04/16/2021 05/28/2021 Encounter for screening mamm ogram for breast cancer 02/21/2016 03/27/2016 Routine gynecological examination 10/13/2014 03/27/2016 Overview: Seeing [facility] Colon cancer screening 10/13/201403/27 Well adult exam 10/13/2014 03/27/2016 Overview: Last done: 02/21/2016 Routine general medical exam ination at a health care facility 08/24/2008 07/29/2011 Overview: 08/25/08 -- establish, from Dr. aT 11/13/2010, yearly check-up Routine gynecological examination 08/24/2008 07/29/2011 Overview: [facility], [facility] [place] SOLAR LENGINES////DYSCHROMIA OTHER 03/27/2006 03/22/2013 XEROSIS////SEBACEOUS GLAND DIS NEC 03/27/2006 03/22/2013 Family history of malignant neoplasm of gastrointestinal tract 07/02/2005 03/27/2016 Overview: colon ca, both P's documented as of this encounter (statuses as of 02/17/2023) [facility] History of Past illness Narrative* Problem Noted Date Diagnosed Date Resolved Date S/P lumbar fusion 04/16/2021 05/28/2021 Encounter for screening mamm ogram for breast cancer 02/21/2016 03/27/2016 Routine gynecological examination 10/13/2014 03/27/2016 Overview: Seeing [facility] Colon cancer screening 10/13/201403/27 Well adult exam 10/13/2014 03/27/2016 Overview: Last done: 02/21/2016 Routine general medical exam ination at a health care facility 08/24/2008 07/29/2011 Overview: 08/25/08 -- establish, from Dr. Ta 11/13/2010, yearly check-up Routine gynecological examination 08/24/2008 07/29/2011 Overview: [facility], [facility] [place] SOLAR LENGINES////DYSCHROMIA OTHER 03/27/2006 03/22/2013 XEROSIS////SEBACEOUS GLAND DIS NEC 03/27/2006 03/22/2013 Family history of malignant neoplasm of gastrointestinal tract 07/02/2005 03/27/2016 Overview: colon ca, both P's documented as of this encounter (statuses as of 02/17/2023) [facility] History of Past illness Narrative* Problem Noted Date Diagnosed Date Resolved Date S/P lumbar fusion 04/16/2021 05/28/2021 Encounter for screening mamm ogram for breast cancer 02/21/2016 03/27/2016 Routine gynecological examination 10/13/2014 03/27/2016 Overview: [facility] Colon cancer screening 10/13/201403/27 Well adult exam 10/13/2014 03/27/2016 Overview: Last done: 02/21/2016 Routine general medical exam ination at a health care facility 08/24/2008 07/29/2011 Overview: 08/25/08 -- establish, from Dr. Ta 11/13/2010, yearly check-up Routine gynecological examination 08/24/2008 07/29/2011 Overview: [facility], [facility] [place] SOLAR LENGINES////DYSCHROMIA OTHER 03/27/2006 03/22/2013 XEROSIS////SEBACEOUS GLAND DIS NEC 03/27/2006 03/22/2013 Family history of malignant neoplasm of gastrointestinal tract 07/02/2005 03/27/2016 Overview: colon ca, both P's documented as of this encounter (statuses as of 04/14/2023) [facility] History of Past illness Narrative* Problem Noted Date Diagnosed Date Resolved Date S/P lumbar fusion 04/16/2021 05/28/2021 Encounter for screening mamm ogram for breast cancer 02/21/2016 03/27/2016 Routine gynecological examination 10/13/2014 03/27/2016 Overview: Seeing [facility] Colon cancer screening 10/13/201403/27 Well adult exam 10/13/2014 03/27/2016 Overview: Last done: 02/21/2016 Routine general medical exam ination at a health care facility 08/24/2008 07/29/2011 Overview: 08/25/08 -- establish, from Dr. Ta 11/13/2010, yearly check-up Routine gynecological examination 08/24/2008 07/29/2011 Overview: [facility] [place] SOLAR LENGINES////DYSCHROMIA OTHER 03/27/2006 03/22/2013 XEROSIS////SEBACEOUS GLAND DIS NEC 03/27/2006 03/22/2013 Family history of malignant neoplasm of gastrointestinal tract 07/02/2005 03/27/2016 Overview: colon ca, both P's documented as of this encounter (statuses as of 04/17/2023) [facility] History of Past illness Narrative* Problem Noted Date Diagnosed Date Resolved Date S/P lumbar fusion 04/16/2021 05/28/2021 Encounter for screening mamm ogram for breast cancer 02/21/2016 03/27/2016 Routine gynecological examination 10/13/2014 03/27/2016 Overview: Seeing [facility] Colon cancer screening 10/13/201403/27 Well adult exam 10/13/2014 03/27/2016 Overview: Last done: 02/21/2016 Routine general medical exam ination at a health care facility 08/24/2008 07/29/2011 Overview: 08/25/08 -- establish, from Dr. Ta 11/13/2010, yearly check-up Routine gynecological examination 08/24/2008 07/29/2011 Overview: [facility], [facility] [place] SOLAR LENGINES////DYSCHROMIA OTHER 03/27/2006 03/22/2013 XEROSIS////SEBACEOUS GLAND DIS NEC 03/27/2006 03/22/2013 Family history of malignant neoplasm of gastrointestinal tract 07/02/2005 03/27/2016 Overview: colon ca, both P's documented as of this encounter (statuses as of 04/17/2023) [facility] History of Past illness Narrative* Problem Noted Date Diagnosed Date Resolved Date S/P lumbar fusion 04/16/2021 05/28/2021 Encounter for screening mamm ogram for breast cancer 02/21/2016 03/27/2016 Routine gynecological examination 10/13/2014 03/27/2016 Overview: [facility] Colon cancer screening 10/13/201403/27 Well adult exam 10/13/2014 03/27/2016 Overview: Last done: 02/21/2016 Routine general medical exam ination at a health care facility 08/24/2008 07/29/2011 Overview: 08/25/08 -- establish, from Dr. Ta 11/13/2010, yearly check-up Routine gynecological examination 08/24/2008 07/29/2011 Overview: [facility], [facility] [place] SOLAR LENGINES////DYSCHROMIA OTHER 03/27/2006 03/22/2013 XEROSIS////SEBACEOUS GLAND DIS NEC 03/27/2006 03/22/2013 Family history of malignant neoplasm of gastrointestinal tract 07/02/2005 03/27/2016 Overview: colon ca, both P's documented as of this encounter (statuses as of 04/18/2023) [facility] History of Past illness Narrative* Problem Noted Date Diagnosed Date Resolved Date S/P lumbar fusion 04/16/2021 05/28/2021 Encounter for screening mamm ogram for breast cancer 02/21/2016 03/27/2016 Routine gynecological examination 10/13/2014 03/27/2016 Overview: Seeing [facility] Colon cancer screening 10/13/201403/27 Well adult exam 10/13/2014 03/27/2016 Overview: Last done: 02/21/2016 Routine general medical exam ination at a health care facility 08/24/2008 07/29/2011 Overview: 08/25/08 -- establish, from Dr. Ta 11/13/2010, yearly check-up Routine gynecological examination 08/24/2008 07/29/2011 Overview: [facility], [facility] [place] SOLAR LENGINES////DYSCHROMIA OTHER 03/27/2006 03/22/2013 XEROSIS////SEBACEOUS GLAND DIS NEC 03/27/2006 03/22/2013 Family history of malignant neoplasm of gastrointestinal tract 07/02/2005 03/27/2016 Overview: colon ca, both P's documented as of this encounter (statuses as of 04/30/2023) [facility] History of Past illness Narrative* Problem Noted Date Diagnosed Date Resolved Date S/P lumbar fusion 04/16/2021 05/28/2021 Encounter for screening mamm ogram for breast cancer 02/21/2016 03/27/2016 Routine gynecological examination 10/13/2014 03/27/2016 Overview: Seeing [facility] Colon cancer screening 10/13/201403/27 Well adult exam 10/13/2014 03/27/2016 Overview: Last done: 02/21/2016 Routine general medical exam ination at a health care facility 08/24/2008 07/29/2011 Overview: 08/25/08 -- establish, from Dr. Ta 11/13/2010, yearly check-up Routine gynecological examination 08/24/2008 07/29/2011 Overview: [facility], [facility] [place] SOLAR LENGINES////DYSCHROMIA OTHER 03/27/2006 03/22/2013 XEROSIS////SEBACEOUS GLAND DIS NEC 03/27/2006 03/22/2013 Family history of malignant neoplasm of gastrointestinal tract 07/02/2005 03/27/2016 Overview: colon ca, both P's documented as of this encounter (statuses as of 05/01/2023) [facility]02-07-2022 History of Past illness Narrative* Problem Noted Date Diagnosed Date Resolved Date S/P lumbar fusion 04/16/2021 05/28/2021 Encounter for screening mamm ogram for breast cancer 02/21/2016 03/27/2016 Routine gynecological examination 10/13/2014 03/27/2016 Overview: [facility] Colon cancer screening 10/13/201403/27 Well adult exam 10/13/2014 03/27/2016 Overview: Last done: 02/21/2016 Routine general medical exam ination at a health care facility 08/24/2008 07/29/2011 Overview: 08/25/08 -- establish, from Dr. Ta 11/13/2010, yearly check-up Routine gynecological examination 08/24/2008 07/29/2011 Overview: [facility], [facility] [place] SOLAR LENGINES////DYSCHROMIA OTHER 03/27/2006 03/22/2013 XEROSIS////SEBACEOUS GLAND DIS NEC 03/27/2006 03/22/2013 Family history of malignant neoplasm of gastrointestinal tract 07/02/2005 03/27/2016 Overview: colon ca, both P's documented as of this encounter (statuses as of 05/02/2023) [facility] History of Past illness Narrative* Problem Noted Date Diagnosed Date Resolved Date S/P lumbar fusion 04/16/2021 05/28/2021 Encounter for screening mamm ogram for breast cancer 02/21/2016 03/27/2016 Routine gynecological examination 10/13/2014 03/27/2016 Overview: Seeing [facility] Colon cancer screening 10/13/201403/27 Well adult exam 10/13/2014 03/27/2016 Overview: Last done: 02/21/2016 Routine general medical exam ination at a health care facility 08/24/2008 07/29/2011 Overview: 08/25/08 -- establish, from Dr. Ta 11/13/2010, yearly check-up Routine gynecological examination 08/24/2008 07/29/2011 Overview: [facility], [facility] [place] SOLAR LENGINES////DYSCHROMIA OTHER 03/27/2006 03/22/2013 XEROSIS////SEBACEOUS GLAND DIS NEC 03/27/2006 03/22/2013 Family history of malignant neoplasm of gastrointestinal tract 07/02/2005 03/27/2016 Overview: colon ca, both P's documented as of this encounter (statuses as of 05/09/2023) [facility] History of Past illness Narrative* Problem Noted Date Diagnosed Date Resolved Date S/P lumbar fusion 04/16/2021 05/28/2021 Encounter for screening mamm ogram for breast cancer 02/21/2016 03/27/2016 Routine gynecological examination 10/13/2014 03/27/2016 Overview: Seeing [facility] Colon cancer screening 10/13/201403/27 Well adult exam 10/13/2014 03/27/2016 Overview: Last done: 02/21/2016 Routine general medical exam ination at a health care facility 08/24/2008 07/29/2011 Overview: 08/25/08 -- establish, from Dr. Ta 11/13/2010, yearly check-up Routine gynecological examination 08/24/2008 07/29/2011 Overview: [facility], [facility] [place] SOLAR LENGINES////DYSCHROMIA OTHER 03/27/2006 03/22/2013 XEROSIS////SEBACEOUS GLAND DIS NEC 03/27/2006 03/22/2013 Family history of malignant neoplasm of gastrointestinal tract 07/02/2005 03/27/2016 Overview: colon ca, both P's documented as of this encounter (statuses as of 05/12/2023) [facility] History of Past illness Narrative* Problem Noted Date Diagnosed Date Resolved Date S/P lumbar fusion 04/16/2021 05/28/2021 Encounter for screening mamm ogram for breast cancer 02/21/2016 03/27/2016 Routine gynecological examination 10/13/2014 03/27/2016 Overview: [facility] Colon cancer screening 10/13/201403/27 Well adult exam 10/13/2014 03/27/2016 Overview: Last done: 02/21/2016 Routine general medical exam ination at a health care facility 08/24/2008 07/29/2011 Overview: 08/25/08 -- establish, from Dr. Ta 11/13/2010, yearly check-up Routine gynecological examination 08/24/2008 07/29/2011 Overview: [facility], [facility] [place] SOLAR LENGINES////DYSCHROMIA OTHER 03/27/2006 03/22/2013 XEROSIS////SEBACEOUS GLAND DIS NEC 03/27/2006 03/22/2013 Family history of malignant neoplasm of gastrointestinal tract 07/02/2005 03/27/2016 Overview: colon ca, both P's documented as of this encounter (statuses as of 05/19/2023) [facility] History of Past illness Narrative* Problem Noted Date Diagnosed Date Resolved Date S/P lumbar fusion 04/16/2021 05/28/2021 Encounter for screening mamm ogram for breast cancer 02/21/2016 03/27/2016 Routine gynecological examination 10/13/2014 03/27/2016 Overview: Seeing [facility] Colon cancer screening 10/13/201403/27 Well adult exam 10/13/2014 03/27/2016 Overview: Last done: 02/21/2016 Routine general medical exam ination at a health care facility 08/24/2008 07/29/2011 Overview: 08/25/08 -- establish, from Dr. Ta 11/13/2010, yearly check-up Routine gynecological examination 08/24/2008 07/29/2011 Overview: [facility], [facility] [place] SOLAR LENGINES////DYSCHROMIA OTHER 03/27/2006 03/22/2013 XEROSIS////SEBACEOUS GLAND DIS NEC 03/27/2006 03/22/2013 Family history of malignant neoplasm of gastrointestinal tract 07/02/2005 03/27/2016 Overview: colon ca, both P's documented as of this encounter (statuses as of 05/26/2023) [facility] History of Past illness Narrative* Problem Noted Date Diagnosed Date Resolved Date S/P lumbar fusion 04/16/2021 05/28/2021 Encounter for screening mamm ogram for breast cancer 02/21/2016 03/27/2016 Routine gynecological examination 10/13/2014 03/27/2016 Overview: Seeing [facility] Colon cancer screening 10/13/201403/27 Well adult exam 10/13/2014 03/27/2016 Overview: Last done: 02/21/2016 Routine general medical exam ination at a health care facility 08/24/2008 07/29/2011 Overview: 08/25/08 -- establish, from Dr. Ta 11/13/2010, yearly check-up Routine gynecological examination 08/24/2008 07/29/2011 Overview: [facility], [facility] [place] SOLAR LENGINES////DYSCHROMIA OTHER 03/27/2006 03/22/2013 XEROSIS////SEBACEOUS GLAND DIS NEC 03/27/2006 03/22/2013 Family history of malignant neoplasm of gastrointestinal tract 07/02/2005 03/27/2016 Overview: colon ca, both P's documented as of this encounter (statuses as of 05/28/2023) [facility] History of Past illness Narrative* Problem Noted Date Diagnosed Date Resolved Date S/P lumbar fusion 04/16/2021 05/28/2021 Encounter for screening mamm ogram for breast cancer 02/21/2016 03/27/2016 Routine gynecological examination 10/13/2014 03/27/2016 Overview: [facility] Colon cancer screening 10/13/201403/27 Well adult exam 10/13/2014 03/27/2016 Overview: Last done: 02/21/2016 Routine general medical exam ination at a health care facility 08/24/2008 07/29/2011 Overview: 08/25/08 -- establish, from Dr. Ta 11/13/2010, yearly check-up Routine gynecological examination 08/24/2008 07/29/2011 Overview: [facility], [facility] [place] SOLAR LENGINES////DYSCHROMIA OTHER 03/27/2006 03/22/2013 XEROSIS////SEBACEOUS GLAND DIS NEC 03/27/2006 03/22/2013 Family history of malignant neoplasm of gastrointestinal tract 07/02/2005 03/27/2016 Overview: colon ca, both P's documented as of this encounter (statuses as of 06/18/2023) [facility] History of Past illness Narrative* Problem Noted Date Diagnosed Date Resolved Date S/P lumbar fusion 04/16/2021 05/28/2021 Encounter for screening mamm ogram for breast cancer 02/21/2016 03/27/2016 Routine gynecological examination 10/13/2014 03/27/2016 Overview: Seeing [facility] Colon cancer screening 10/13/201403/27 Well adult exam 10/13/2014 03/27/2016 Overview: Last done: 02/21/2016 Routine general medical exam ination at a health care facility 08/24/2008 07/29/2011 Overview: 08/25/08 -- establish, from Dr. Ta 11/13/2010, yearly check-up Routine gynecological examination 08/24/2008 07/29/2011 Overview: [facility], [facility] [place] SOLAR LENGINES////DYSCHROMIA OTHER 03/27/2006 03/22/2013 XEROSIS////SEBACEOUS GLAND DIS NEC 03/27/2006 03/22/2013 Family history of malignant neoplasm of gastrointestinal tract 07/02/2005 03/27/2016 Overview: colon ca, both P's documented as of this encounter (statuses as of 06/19/2023) [facility] History of Past illness Narrative* Problem Noted Date Diagnosed Date Resolved Date S/P lumbar fusion 04/16/2021 05/28/2021 Encounter for screening mamm ogram for breast cancer 02/21/2016 03/27/2016 Routine gynecological examination 10/13/2014 03/27/2016 Overview: Seeing [facility] Colon cancer screening 10/13/201403/27 Well adult exam 10/13/2014 03/27/2016 Overview: Last done: 02/21/2016 Routine general medical exam ination at a health care facility 08/24/2008 07/29/2011 Overview: 08/25/08 -- establish, from Dr. Ta 11/13/2010, yearly check-up Routine gynecological examination 08/24/2008 07/29/2011 Overview: [facility], [facility] [place] SOLAR LENGINES////DYSCHROMIA OTHER 03/27/2006 03/22/2013 XEROSIS////SEBACEOUS GLAND DIS NEC 03/27/2006 03/22/2013 Family history of malignant neoplasm of gastrointestinal tract 07/02/2005 03/27/2016 Overview: colon ca, both P's documented as of this encounter (statuses as of 06/25/2023) [facility] History of Past illness Narrative* Problem Noted Date Diagnosed Date Resolved Date S/P lumbar fusion 04/16/2021 05/28/2021 Encounter for screening mamm ogram for breast cancer 02/21/2016 03/27/2016 Routine gynecological examination 10/13/2014 03/27/2016 Overview: [facility] Colon cancer screening 10/13/201403/27 Well adult exam 10/13/2014 03/27/2016 Overview: Last done: 02/21/2016 Routine general medical exam ination at a health care facility 08/24/2008 07/29/2011 Overview: 08/25/08 -- establish, from Dr. Ta 11/13/2010, yearly check-up Routine gynecological examination 08/24/2008 07/29/2011 Overview: [facility], [facility] [place] SOLAR LENGINES////DYSCHROMIA OTHER 03/27/2006 03/22/2013 XEROSIS////SEBACEOUS GLAND DIS NEC 03/27/2006 03/22/2013 Family history of malignant neoplasm of gastrointestinal tract 07/02/2005 03/27/2016 Overview: colon ca, both P's documented as of this encounter (statuses as of 06/25/2023) [facility] History of Past illness Narrative* Problem Noted Date Diagnosed Date Resolved Date S/P lumbar fusion 04/16/2021 05/28/2021 Encounter for screening mamm ogram for breast cancer 02/21/2016 03/27/2016 Routine gynecological examination 10/13/2014 03/27/2016 Overview: Seeing [facility] Colon cancer screening 10/13/201403/27 Well adult exam 10/13/2014 03/27/2016 Overview: Last done: 02/21/2016 Routine general medical exam ination at a health care facility 08/24/2008 07/29/2011 Overview: 08/25/08 -- establish, from Dr. Ta 11/13/2010, yearly check-up Routine gynecological examination 08/24/2008 07/29/2011 Overview: [facility], [facility] [place] SOLAR LENGINES////DYSCHROMIA OTHER 03/27/2006 03/22/2013 XEROSIS////SEBACEOUS GLAND DIS NEC 03/27/2006 03/22/2013 Family history of malignant neoplasm of gastrointestinal tract 07/02/2005 03/27/2016 Overview: colon ca, both P's documented as of this encounter (statuses as of 06/27/2023) [facility] History of Past illness Narrative* Problem Noted Date Diagnosed Date Resolved Date S/P lumbar fusion 04/16/2021 05/28/2021 Encounter for screening mamm ogram for breast cancer 02/21/2016 03/27/2016 Routine gynecological examination 10/13/2014 03/27/2016 Overview: Seeing [facility] Colon cancer screening 10/13/201403/27 Well adult exam 10/13/2014 03/27/2016 Overview: Last done: 02/21/2016 Routine general medical exam ination at a health care facility 08/24/2008 07/29/2011 Overview: 08/25/08 -- establish, from Dr. Ta 11/13/2010, yearly check-up Routine gynecological examination 08/24/2008 07/29/2011 Overview: [facility], [facility] [place] SOLAR LENGINES////DYSCHROMIA OTHER 03/27/2006 03/22/2013 XEROSIS////SEBACEOUS GLAND DIS NEC 03/27/2006 03/22/2013 Family history of malignant neoplasm of gastrointestinal tract 07/02/2005 03/27/2016 Overview: colon ca, both P's documented as of this encounter (statuses as of 06/27/2023) [facility] Medical Records Department [address] [place] [address] Counseling Note - Pharmacy 12/22/24 1537 MR#: [id number] Acct: [id number] Name: SPENSER PUTNAM Rep #:[id number] : 1940 84 From: Rupert alvarez PCP: Dr. Juan Spann MD Status:DIS JANNETTE Y Location: [place] [address] Pharmacy [facility] has performed discharge medication counseling for this patient. The patient was counseled on the following discharge medications and changes in medications for homegoing review. - Oxycodone 5 mg tablet The Reason for Use, instructions for use, and potential side effects were reviewed for all new medications. The patient's questions regarding all of their medications were answered. The patient was able to verbally demonstrate an understanding of their dischargemedications. Medications at Discharge Home Medications aspirin 81 mg chewable tablet 81 mg PO DAILY@0800 heart health 02/26/13 calcium 600 mg (as carbonate)-vitamin D3 20 mcg (800 unit) tablet 600 mg PO DINNER supplement 02/26/13 pravastatin 20 mg tablet 20 mg PO QHS cholesterol 12/05/19 spironolactone 50 mg tablet 50 mg PO DAILY 11/13/23 cholecalciferol (vitamin D3) 25 mcg (1,000 unit) capsule 25 mcg PO DAILY 12/21/24 magnesium 200 mg tablet 400 mg PO DAILY 12/21/24 ropinirole 4 mg tablet 4 mg PO QHS 12/21/24 oxycodone 5 mg tablet 5 - 10 mg (1 - 2 x 5 mg) PO Q6H PRN PRN Pain Score 1-10 7 days #35 tabs 12/22/24 12/22/24 1537 ebly> Date _ Rupert Max Piaignzuleika Signature (if applicable): Date CC: ~ Signed [facility] Author Rupert Max [facility] Note Date/Time December 22, 2024 3 :37pm [facility] Medical Records Department [address] [place] [address] Counseling Note - Pharmacy 12/22/241536 MR#: [id number] Acct: [id number] Name: SPENSER PUTNAM Rep #:[id number] : 1940 84 From: Rupert alvarez PCP: Dr. Juan Spann MD Status:DIS JANNETTE Y Location: [place] [address] Pharmacy [facility] has performed discharge medication counseling for this patient. The patient was counseled on the following discharge medications and changes in medications for homegoing review. - Oxycodone 5 mg tablet The Reason for Use, instructions for use, and potential side effects were reviewed for all new medications. The patient's questions regarding all of their medications were answered. The patient was able to verbally demonstrate an understanding of their dischargemedications. Medications at Discharge Home Medications aspirin 81 mg chewable tablet 81 mg PO DAILY@0800 heart health 02/26/13 calcium 600 mg (as carbonate)-vitamin D3 20 mcg (800 unit) tablet 600 mg PO DINNER supplement 02/26/13 pravastatin 20 mg tablet 20 mg PO QHS cholesterol 12/05/19 spironolactone 50 mg tablet 50 mg PO DAILY 11/13/23 cholecalciferol (vitamin D3) 25 mcg (1,000 unit) capsule 25 mcg PO DAILY 12/21/24 magnesium 200 mg tablet 400 mg PO DAILY 12/21/24 ropinirole 4 mg tablet 4 mg PO QHS 12/21/24 oxycodone 5 mg tablet 5 - 10 mg (1 - 2 x 5 mg) PO Q6H PRN PRN Pain Score 1-10 7 days #35 tabs 12/22/24 12/22/24 1537 <Electronically signed by Rupert Yip> Date _ Rupert Palacioigner Signature (if applicable): Date CC: ~ Signed [facility] Work Phone: Discharge summary Author Chelsea Hamowatonna hospital[facility] Note Date/Time December 22, 2024 3 :03pm [facility] Medical Records Department [address] [place] [id number] Instructions for Home/Discharge Instructions 12/22/24 1448 MR#: [id number] Acct: [id number] Name: SPENSER PUTNAM Rep #:[id number] : 1940 84 From: Chelsea Carbone DO PCP: Dr. Juan Spann MD Status:ADM JANNETTE Discharge Instructions DC O2, CPAP, BIPAP needs Home O2 Discharge instructions: No Dressing / Incision Discharge Activity: Return to Normal Activity Weight Bearing Status: Full weight bearing Follow Up Care Test Results: Test results from this visit will be discussed in further detail at your follow- up appointment, if applicable. Discharge Plan Admission Admit Date/Time: 12/21/24 21:33 Primary Reason for Your Visit: Syncope Attending Provider: Chelsea Carbone Primary Care Provider: Juan Spann Consulting Providers: Rachael Crook Discharge Orders/Prescriptions Prescriptions: New oxycodone 5 mg Tablet 5 - 10 mg PO Q6H PRN PRN (Reason: Pain Score 1-10) 7 Days Qty: 35 0RF Rx Instructions: 1-2 q6h prn pain Continued aspirin 81 MG tablet,chewable 81 mg PO DAILY@0800 calcium carbonate-vitamin D3 1 EACH tablet 600 mg PO DINNER pravastatin 20 MG tablet 20 mg PO QHS spironolactone 50 mg tablet 50 mg PO DAILY ropinirole 4 mg tablet 4 mg PO QHS cholecalciferol (vitamin D3) 25 mcg (1,000 unit) capsule 25 mcg PO DAILY magnesium 200 mg tablet 400 mg PO DAILY Discontinued lisinopril 20 mg Tablet 20 mg PO DAILY potassium chloride 20 mEq tablet extended release 20 meq PO DAILY Referrals / Follow Up: Blanka Uriarte MD [Med Staff - Active Staff, Cardiology] - 01/04/25 10:30 am Juan Spann MD [Primary Care Provider, Family Practice] - In 1 Week Disposition Disposition (needs filled in before D/C Order can be placed): Home, Self Care 12/22/24 1503<Electronically signed by Chelsea Carbone DO>Chelsea Carbone DO CC: Dr. Juan Spann MD; Dr. aRchael Crook MD ~ Signed [facility] Work Phone: Discharge summary Author [facility] Note Date/Time December 22, 2024 3 :36pm [facility] Medical Records Department [address] [place] [address] Discharge Summary 12/22/24 1503 MR#: [id number] Acct: [id number] Name: SPENSER PUTNAM Rep #:[id number] : 1940 84 From: Chelsea Carbone DO PCP: Dr. Juan Spann MD Status:DIS JANNETTE Location: [place] [address]- Providers Date of Admission: 12/21/24 Date of Discharge: 12/22/24 Primary Care Physician: Dr. Juan Spann MD Reason For Visit: SYNCOPE Diagnosis Discharge Diagnosis (1) Syncope: Status: Acute Code(s): R55 - Syncope and collapse Plan 1. Syncope-etiology unclear #2 essential hypertension #3 hyperlipidemia Medications at Discharge Home Medications aspirin 81 mg chewable tablet 81 mg PO DAILY@0800 heart health 02/26/13 calcium 600 mg (as carbonate)-vitamin D3 20 mcg (800 unit) tablet 600 mg PO DINNER supplement 02/26/13 pravastatin 20 mg tablet 20 mg PO QHS cholesterol 12/05/19 spironolactone 50 mg tablet 50 mg PO DAILY 11/13/23 cholecalciferol (vitamin D3) 25 mcg (1,000 unit) capsule 25 mcg PO DAILY 12/21/24 magnesium 200 mg tablet 400 mg PO DAILY 12/21/24 ropinirole 4 mg tablet 4 mg PO QHS 12/21/24 lisinopril 20 mg tablet 20 mg PO QDAY 12/27/24 potassium chloride 20 mEq tablet,extended release (K-Tab) 20 meq PO BID 12/27/24 Hospital Course Operations None Procedures 2-D Echocardiogram Summary of Care Provided Minutes Spent on Discharge: 31 Hospital Course: This 84-year-old white female was seen in the emergency room at [facility] after suffering a syncopal episode at home while in her chair. She had a similar episode and was worked up previously without a conclusion reached as to why she had the event. Workup in the emergency room did not indicate any reason for the episode, she was placed in observation status on PCU and monitored on telemetry. Patient had an echocardiogram which was unremarkable. Discussions were carried out with the patient and her family about getting a loop recorder implanted, arrangements were made for her to see the cardiology group at [facility] for evaluation for that loop recorder. On 12/22/2024, patient was seen and examined: On examination she appeared in good health and spirits, she does not appear to be in any distress. Vital signs as documented. Skin warm and dry and without overt rashes. Neck without JVD, thyroid appears normal, trachea is midline, neck is supple. Lungs clear, normal air movement was noted. Heart exam notable for regular rhythm, normal sounds and absence of murmurs, rubs or gallops. Abdomen unremarkable and without evidence of organomegaly, masses, or abdominal aortic enlargement, bowelsounds are present in all 4 quadrants, no abdominal tenderness was noted. Extremities nonedematous, no cyanosis was noted, no clubbing was noted. Neuro: Cranial nerves II through XII are grossly intact, no focal motor deficits were noted, sensation to light touch and pinprick is intact, motor exam 5/5 throughout. Psych: Patient is alert and oriented x3, she does not appear anxious or depressed, she does not appear agitated. Patient was discharged homein stable condition on 12/22/2024 Weight / BMI Weight Weight: 63.2 kg Body Mass Index (BMI) 25.4 ABG / Lab / Microbiology Data 12/22/24 05:33 12/22/24 05:33 Laboratory: Laboratory Results - last 24 hr 12/21/24 19:50: WBC 10.7, RBC 3.76 L, Hgb 11.0 L, Hct 34.0 L, MCV 90.4, MCH 29.3, MCHC 32.4, RDW Std Deviation 47.8 H, RDW Coeff of Bailee 14.5, Plt Count 254,MPV 9.6, Immature Gran % (Auto) 0.400, Neut % (Auto) 57.0, Lymph % (Auto) 34.6, Brooks % (Auto) 7.3, Eos % (Auto) 0.4, Baso % (Auto) 0.3, Absolute Neuts (auto) 6.1, Absolute Lymphs (auto) 3.68, Nucleated RBC % 0, Sodium 134, Potassium 3.5, Chloride 99, Carbon Dioxide 23.1, Anion Gap 12, BUN 18, Creatinine 0.98, Estim Creat Clear Calc 36.10 L, Est GFR (MDRD) Non-Af 57 L, BUN/Creatinine Ratio 18.3,Glucose 101 H, Calcium 9.2, Total Bilirubin 0.47, Direct Bilirubin 0.21, AST 21,ALT 7, Alkaline Phosphatase 77, Troponin T High Sens 35 H, Total Protein 6.4, Albumin 3.6, Globulin 2.7, Lipase 17 12/21/24 20:00: Lactic Acid 1.7 12/21/24 20:34: Urine Color Yellow, Urine Clarity Clear, Urine pH 6.5, Ur Specific [place] 1.015, Urine Protein 30 H, Urine Glucose (UA) Normal, Urine Ketones Negative, Urine Occult Blood 10 H, Urine Nitrite Negative, Urine Bilirubin Negative, Urine Urobilinogen Normal, Ur Leukocyte Esterase Negative, Urine RBC 0-5 SEEN, Urine WBC 0-5 SEEN, Ur Squamous Epith Cells 5-10 SEEN, UrineBacteria 0 SEEN, Hyaline Casts 0-5 SEEN, Urine Mucus 0 SEEN 12/21/24 22:00: Troponin T Hi Sens 2 Hr 35 H 12/21/24 23:50: Troponin T Hi Sens 4Hr 37 H 12/22/24 05:33: WBC 6.7, RBC 3.22 L, Hgb 9.4 L, Hct 29.4 L, MCV 91.3, MCH 29.2, MCHC 32.0, RDW Std Deviation 48.9 H, RDW Coeff of Bailee 14.6, Plt Count 189, MPV 9.4, Immature Gran % (Auto) 0.300, Neut % (Auto) 61.3, Lymph % (Auto) 30.5, Brooks% (Auto) 7.2, Eos % (Auto) 0.6, Baso % (Auto) 0.1, Absolute Neuts (auto) 4.1, Absolute Lymphs (auto) 2.04, Nucleated RBC % 0, Sodium 134, Potassium 4.2, Chloride 104, Carbon Dioxide 24.9, Anion Gap 6, BUN 14, Creatinine 0.67 L, EstimCreat Clear Calc 45.73 L, Est GFR (MDRD) Non-Af 86, BUN/Creatinine Ratio 20.4 H,Glucose 92, Calcium 8.5 Radiography Diagnostic Testing: Radiology Impression Abdomen/Pelvis CT 12/21/24 20:05 IMPRESSION: No definite explanation for the patient's lower abdominal pain. There is a nlupixin-gr-emwyu amount of stool in sigmoid colonic loops. No definite bowel obstruction however. Other details as above. [facility] Chest X-Ray 12/21/24 20:10 IMPRESSION: No acute abnormality. Reading Location: [facility] Echocardiogram 12/22/24 05:55 Interpretation Summary Normal LV size. Left ventricular systolic function is normal. The left ventricular ejection fraction is 65 %. Mildly calcified aortic root. There is mild mitral annular calcification. Stage 1 diastolic dysfunction. Ordering Physician: Rachael Crook Performed By: Latasha Marie RDCS D/C Instructions Weight Bearing Status: Full weight bearing DC O2, CPAP, BIPAP Needs Home O2 Discharge instructions: No Meaningful Use Info Meaningful Use Meaningful Use Diagnoses (Choose all that apply): None applicable Discharge Plan Admission Admit Date/Time: 12/21/24 21:33 Primary Reason for Your Visit: Syncope Attending Provider: Chelsea Carbone Primary Care Provider: Juan Spann Consulting Providers: Rachael Crook Discharge Orders/Prescriptions Prescriptions: Continued aspirin 81 MG tablet,chewable 81 mg PO DAILY@0800 calcium carbonate-vitamin D3 1 EACH tablet 600 mg PO DINNER pravastatin 20 MG tablet 20 mg PO QHS spironolactone 50 mg tablet 50 mg PO DAILY ropinirole 4 mg tablet 4 mg PO QHS cholecalciferol (vitamin D3) 25 mcg (1,000 unit) capsule 25 mcg PO DAILY magnesium 200 mg tablet 400 mg PO DAILY Discontinued lisinopril 20 mg Tablet 20 mg PO DAILY potassium chloride 20 mEq tablet extended release 20 meq PO DAILY No Action lisinopril 20 mg tablet 20 mg PO QDAY potassium chloride [K-Tab] 20 mEq tablet extended release 20 meq PO BID Referrals / Follow Up: Blanka Uriarte MD [Med Staff - Active Staff, Cardiology] - 01/04/25 10:30 am Juan Spann MD [Primary Care Provider, Family Practice] - 12/29/24 11:40 am Disposition Disposition (needs filled in before D/C Order can be placed): Home, Self Care Charges/Coding Visit Charges Inpatient E&M: 72210 Disch Hosp >30min 12/28/24 1301 <Electronically signed by Chelsea Carbone DO> Cosigner Signature (if applicable): CC: Dr. Juan Spann MD; Dr. Chelsea Carbone DO~ Signed [facility] Work Phone: Evaluation noteThere may be information available, but it has not been provided by the sender.[facility] Work Phone: Evaluation note* Diagnosis Restless leg syndrome Restless legs syndrome (RLS) [facility] Diagnosis Vertigo- Primary Dizziness and giddiness Injury of head, initial encounter [facility] Injury of head, initial encounter Vertigo Dizziness and giddiness [facility] Diagnosis Mixed hyperlipidemia- Primary Essential hypertension with goal blood pressure less than 140/90 Restless leg syndrome Restless legs syndrome (RLS) Vertigo Dizziness and giddiness Carpal tunnel syndrome, left Carpal tunnel syndrome Valvular heart disease Endocarditis, valve unspecified, unspecified cause [facility] Diagnosis Restless leg syndrome Restless legs syndrome (RLS) [facility] Diagnosis Left carpal tunnel syndrome- Primary Carpal tunnel syndrome Left carpal tunnel syndrome Carpal tunnel syndrome [facility] Diagnosis Pruritus- Primary Unspecified pruritic disorder Hypokalemia Hypopotassemia Essential hypertension with goal blood pressure less than 140/90 Abnormal thyroid blood test Nonspecific abnormal results of thyroid function study Mixed hyperlipidemia Vitamin D deficiency Unspecified vitamin D deficiency [facility] Diagnosis Abnormal thyroid blood test- Primary Nonspecific abnormal results of thyroid function study Multiple thyroid nodules Nontoxic multinodular goiter [facility] Diagnosis Urinary frequency- Primary [facility]* Diagnosis Medicare annual wellness visit, subsequent- Primary Routine general medical examination at a health care facility Essential hypertension with goal blood pressure less than 140/90 Mixed hyperlipidemia Bilateral leg edema Edema Multiple thyroid nodules Nontoxic multinodular goiter Insomnia, unspecified type Restless leg syndrome Restless legs syndrome (RLS) Malignant melanoma of right shoulder (HCC) Vitamin D deficiency Unspecified vitamin D deficiency Valvular heart disease Endocarditis, valve unspecified, unspecified cause Vertigo Dizziness and giddiness Dysuria Urine frequency Urinary frequency Advance directive discussed with patient Other specified counseling [facility] Diagnosis Restless leg syndrome Restless legs syndrome (RLS) [facility] Diagnosis Restless leg syndrome Restless legs syndrome (RLS) [facility]* Diagnosis Paronychia of finger of right hand- Primary [facility]* Diagnosis Multiple thyroid nodules Nontoxic multinodular goiter [facility]* Diagnosis Acute non-recurrent sinusitis, unspecified location- Primary [facility] Diagnosis Acute non-recurrent sinusitis, unspecified location documented in this encounter [facility] note* Diagnosis Spinal stenosis, lumbar region, without neurogenic claudication- Primary Lumbar radiculopathy Thoracic or lumbosacral neuritis or radiculitis, unspecified Lumbar spondylosis Lumbosacral spondylosis without myelopathy Primary osteoarthritis of both knees Primary localized osteoarthrosis, lower leg documented in this encounter [facility] note* Diagnosis Primary osteoarthritis of both knees Primary localized osteoarthrosis, lower leg [facility] Diagnosis Lumbar radiculopathy- Primary Thoracic or lumbosacral neuritis or radiculitis, unspecified Spinal stenosis, lumbar region, without neurogenic claudication [facility] Diagnosis Lumbar radiculopathy- Primary Thoracic or lumbosacral neuritis or radiculitis, unspecified [facility]* Diagnosis Restless leg syndrome Restless legs syndrome (RLS) [facility]* Diagnosis Primary osteoarthritis of both knees- Primary Primary localized osteoarthrosis, lower leg documented in this encounter [facility] note* Diagnosis Great toe pain, left- Primary Candidiasis of skin Candidiasis of skin and nails Spinal stenosis of lumbar region, unspecified whether neurogenic claudication present documented in this encounter [facility] note* Diagnosis Elevated blood uric acid level- Primary Other abnormal blood chemistry Multiple thyroid nodules Nontoxic multinodular goiter [facility]* Diagnosis Primary osteoarthritis of both knees- Primary Primary localized osteoarthrosis, lower leg Lumbar radiculopathy Thoracic or lumbosacral neuritis or radiculitis, unspecified Spinal stenosis, lumbar region, without neurogenic claudication Lumbar spondylosis Lumbosacral spondylosis without myelopathy Disorder of sacrum Disorders of sacrum Malignant melanoma of right shoulder (HCC) [facility]* Diagnosis Hyperkalemia- Primary Hyperpotassemia Hypercalcemia Elevated serum creatinine Other nonspecific findings on examination of blood Hyperuricemia Other abnormal blood chemistry [facility]* Diagnosis Primary osteoarthritis of both knees- Primary Primary localized osteoarthrosis, lower leg [facility] Diagnosis Primary osteoarthritis of both knees- Primary Primary localized osteoarthrosis, lower leg [facility] Diagnosis Lumbar radiculopathy Thoracic or lumbosacral neuritis or radiculitis, unspecified Spinal stenosis, lumbar region, without neurogenic claudication Lumbar spondylosis Lumbosacral spondylosis without myelopathy Disorder of sacrum Disorders of sacrum [facility] Diagnosis Primary osteoarthritis of both knees- Primary Primary localized osteoarthrosis, lower leg [facility]* Diagnosis Lumbar disc herniation- Primary Displacement of lumbar intervertebral disc without myelopathy Lumbar radiculopathy Thoracic or lumbosacral neuritis or radiculitis, unspecified Lumbar spondylosis Lumbosacral spondylosis without myelopathy Disorder of sacrum Disorders of sacrum [facility]* Diagnosis Medicare annual wellness visit, subsequent- Primary Routine general medical examination at a health care facility Essential hypertension with goal blood pressure less than 140/90 Mixed hyperlipidemia Bilateral leg edema Edema Multiple thyroid nodules Nontoxic multinodular goiter Insomnia, unspecified type Restless leg syndrome Restless legs syndrome (RLS) Malignant melanoma of right shoulder (HCC) Non morbid obesity Advance directive discussed with patient Other specified counseling Osteopenia, senile Disorder of bone and cartilage, unspecified Spinal stenosis of lumbar region, unspecified whether neurogenic claudication present Hypokalemia Hypopotassemia Hyponatremia Hyposmolality and/or hyponatremia Elevated alkaline phosphatase level Other nonspecific abnormal serum enzyme levels Elevated LFTs Other abnormal blood chemistry Encounter for immunization Need for other specified prophylactic vaccination against single bacterial disease Anemia, unspecified type Primary ovarian failure Other ovarian failure Vitamin D deficiency Unspecified vitamin D deficiency [facility]* Diagnosis Multiple thyroid nodules Nontoxic multinodular goiter [facility]* Diagnosis Primary osteoarthritis of both knees- Primary Primary localized osteoarthrosis, lower leg Lumbar radiculopathy Thoracic or lumbosacral neuritis or radiculitis, unspecified [facility]* Diagnosis Lumbar radiculopathy- Primary Thoracic or lumbosacral neuritis or radiculitis, unspecified Spinal stenosis, lumbar region, without neurogenic claudication Primary osteoarthritis of both knees Primary localized osteoarthrosis, lower leg [facility] Diagnosis Osteopenia, senile Disorder of bone and cartilage, unspecified Primary ovarian failure Other ovarian failure [facility] Diagnosis Osteopenia, senile- Primary Disorder of bone and cartilage, unspecified Anemia, chronic disease Anemia of other chronic disease Vitamin B12 deficiency Other B-complex deficiencies [facility]* Diagnosis Spinal stenosis of lumbar region, unspecified whether neurogenic claudication present [facility]* Diagnosis Lumbar radiculopathy- Primary Thoracic or lumbosacral neuritis or radiculitis, unspecified Spinal stenosis, lumbar region, without neurogenic claudication [facility]* Diagnosis Acute hip pain, right [facility] Diagnosis Hospital discharge follow-up- Primary Other follow-up examination Encounter for immunization Need for other specified prophylactic vaccination against single bacterial disease Recurrent UTI (urinary tract infection) Urinary tract infection, site not specified Anemia, unspecified type Essential hypertension with goal blood pressure less than 140/90 Vitamin B12 deficiency Other B-complex deficiencies Hypomagnesemia Disorders of magnesium metabolism [facility]* Diagnosis Recurrent UTI (urinary tract infection)- Primary Urinary tract infection, site not specified Hyponatremia Hyposmolality and/or hyponatremia [facility]* Diagnosis Lumbar radiculopathy- Primary Thoracic or lumbosacral neuritis or radiculitis, unspecified Spinal stenosis, lumbar region, without neurogenic claudication Lumbar spondylosis Lumbosacral spondylosis without myelopathy Pain in thoracic spine [facility] Diagnosis Essential hypertension with goal blood pressure less than 140/90- Primary Encounter for immunization Need for other specified prophylactic vaccination against single bacterial disease [facility]* Diagnosis Hypomagnesemia- Primary Disorders of magnesium metabolism [facility]* Diagnosis Lumbar radiculopathy- Primary Thoracic or lumbosacral neuritis or radiculitis, unspecified [facility]* Diagnosis Encounter for assessment of healthcare decision-making capacity- Primary [facility]* Diagnosis Lumbar radiculopathy- Primary Thoracic or lumbosacral neuritis or radiculitis, unspecified Spinal stenosis, lumbar region, without neurogenic claudication Lumbar spondylosis Lumbosacral spondylosis without myelopathy Disorder of sacrum Disorders of sacrum [facility]* Diagnosis Pain in thoracic spine [facility]* Diagnosis Lumbar radiculopathy- Primary Thoracic or lumbosacral neuritis or radiculitis, unspecified Spinal stenosis, lumbar region, without neurogenic claudication [facility]* Diagnosis Lumbar radiculopathy- Primary Thoracic or lumbosacral neuritis or radiculitis, unspecified Spinal stenosis, lumbar region, without neurogenic claudication [facility]* Diagnosis Restless leg syndrome Restless legs syndrome (RLS) [facility]* Diagnosis Essential hypertension with goal blood pressure less than 140/90- Primary Mixed hyperlipidemia Raynaud's phenomenon without gangrene Valvular heart disease Endocarditis, valve unspecified, unspecified cause Lumbar radiculopathy Thoracic or lumbosacral neuritis or radiculitis, unspecified Multiple thyroid nodules Nontoxic multinodular goiter [facility]* Diagnosis Lumbar radiculopathy- Primary Thoracic or lumbosacral neuritis or radiculitis, unspecified Spinal stenosis, lumbar region, without neurogenic claudication [facility]* Diagnosis Hypokalemia Hypopotassemia documented in this encounter [facility] note* Diagnosis Lumbar radiculopathy- Primary Thoracic or lumbosacral neuritis or radiculitis, unspecified Spinal stenosis, lumbar region, without neurogenic claudication Lumbar spondylosis Lumbosacral spondylosis without myelopathy [facility]* Diagnosis Spinal stenosis, lumbar region, without neurogenic claudication- Primary Lumbar radiculopathy Thoracic or lumbosacral neuritis or radiculitis, unspecified [facility]* Diagnosis Postlaminectomy syndrome of lumbar region- Primary Postlaminectomy syndrome, lumbar region documented in this encounter [facility] Work Phone: Evaluation note* Diagnosis Lumbar radiculopathy Thoracic or lumbosacral neuritis or radiculitis, unspecified Spinal stenosis, lumbar region, without neurogenic claudication documented in this encounter [facility] note* Diagnosis Spinal stenosis, lumbar region, without neurogenic claudication- Primary Lumbar spondylosis Lumbosacral spondylosis without myelopathy Lumbar radiculopathy Thoracic or lumbosacral neuritis or radiculitis, unspecified [facility]* Diagnosis Lumbar spondylosis Lumbosacral spondylosis without myelopathy documented in this encounter [facility] note* Diagnosis Restless leg syndrome Restless legs syndrome (RLS) documented in this encounter [facility] note* Diagnosis Pre-op examination- Primary Preoperative examination, unspecified Lumbar radiculopathy Thoracic or lumbosacral neuritis or radiculitis, unspecified Essential hypertension with goal blood pressure less than 140/90 documented in this encounter [facility] note* Diagnosis Renal insufficiency- Primary Unspecified disorder of kidney and ureter Hyperkalemia Hyperpotassemia documented in this encounter [facility] note* Diagnosis Hyperkalemia- Primary Hyperpotassemia documented in this encounter [facility] note* Diagnosis Postlaminectomy syndrome of lumbar region- Primary Postlaminectomy syndrome, lumbar region Preoperative examination Unspecified pre-operative examination Systolic murmur Undiagnosed cardiac murmurs Leg swelling Swelling of limb Postlaminectomy syndrome of lumbar region Postlaminectomy syndrome, lumbar region documented in this encounter [facility] Work Phone: Evaluation note* Diagnosis Postlaminectomy syndrome of lumbar region- Primary Postlaminectomy syndrome, lumbar region Postlaminectomy syndrome of lumbar region Postlaminectomy syndrome, lumbar region Primary hypertension Unspecified essential hypertension Chronic low back pain Lumbago Vertigo Dizziness and giddiness Restless legs syndrome Restless legs syndrome (RLS) documented in this encounter [facility] Work Phone: Evaluation note* Diagnosis Postlaminectomy syndrome of lumbar region- Primary Postlaminectomy syndrome, lumbar region S/P insertion of spinal cord stimulator documented in this encounter [facility] Work Phone: Evaluation note* Diagnosis Medicare annual wellness visit, subsequent- Primary Routine general medical examination at a health care facility Essential hypertension with goal blood pressure less than 140/90 Mixed hyperlipidemia Multiple thyroid nodules Nontoxic multinodular goiter Bilateral leg edema Edema Anemia, chronic disease Anemia of other chronic disease Malignant melanoma of right shoulder (HCC) Restless leg syndrome Restless legs syndrome (RLS) Vitamin B12 deficiency Other B-complex deficiencies Vitamin D deficiency Unspecified vitamin D deficiency Osteopenia, senile Disorder of bone and cartilage, unspecified Spinal stenosis of lumbar region, unspecified whether neurogenic claudication present Hypomagnesemia Disorders of magnesium metabolism Bruit Other symptoms involving cardiovascular system Valvular heart disease Endocarditis, valve unspecified, unspecified cause Advance directive discussed with patient Other specified counseling Screening for depression Encounter for screening examination for other mental health and behavioral disorders Encounter for immunization Need for other specified prophylactic vaccination against single bacterial disease [facility] Diagnosis Multiple thyroid nodules Nontoxic multinodular goiter [facility]* Diagnosis Restless leg syndrome Restless legs syndrome (RLS) documented in this encounter [facility] note* Diagnosis Onset Date Resolution Status Admit Date Chronic anemia inactive December 212024 9:33pm History of spinal stenosis inactive December 21, 2024 9:33pm Syncope inactive December 21, 2024 9:33pm [facility] Work Phone: History and physical note Author Rachael [facility] Note Date/Time December 22, 2024 6 :47am [facility] Medical Records Department [address] [place] [id number] H&P Exam - Hospitalist 12/21/[id number] MR#: [id number] Acct: [id number] Name: SPENSER PUTNAM Rep #:[id number] : 1940 84 From: Rachael Crook MD PCP: Dr. Juan Spann MD Status:ADM JANNETTE Location: [place] [address] HPI - General General Date of Admission: 12/21/24 Date of Service: 12/21/24 Chief Complaint: syncope HPI Narrative SPENSER PUTNAM, is a 84 F with a PMH as outlined who was admitted via the ED on 12/21/2024 with a complaint of syncope on hte day of admission. She had been feeling well until the evening of the day of admission when she passed out in her chair. Family said they noted she stopped breathing and per daughter she didnot have a pulse. Daughter prepared to start CPR, but patient came around spontaneously. She denied any dizziness, lightheadedness, nausea, vomiting or any other symptoms. She subsequently did admit to abdomina pain and some constipation. Per review of her chart she did have a similar presentation in November 2023 and workup was negative. 2D echo done then showed EF of 70% withno regional wall motion abnormalities. She did have a Holter monitor that at that time which showed that her predominant rhythm was sinus and there were 151 ventricular ectopic beats with a burden of less than 1% and 377 supraventricularectopic beats with a burden of less than 1% and 1 occurrence of supraventriculartachycardia with the fastest response. She had been doing well until this episode recurred. Vitals in the ED were blood pressure 106/47, pulse rate of 66 and respiratory rate 12. She was saturating at 97% on room air. CBC showed hemoglobin of 11 with WBC of 10.7 and platelets of 254. Chemistry showed sodium of 134 with potassium of 3.5 and bicarb of 23.1. Creatinine was 0.98. Urinalysis showed noevidence of UTI. EKG showed no acute ST changes. Chest x-ray showed no acute cardiopulmonary pathology. CT of the abdomen and pelvis done showed moderate tolarge amount of stool in the sigmoid colonic loops and no definite bowel obstruction. She has been admitted to be managed for syncope of unclear etiology. [facility] Medical History Elevated d-dimer Chronic anemia HLD (hyperlipidemia) HTN (hypertension) Back pain with radiculopathy Anxiety and depression RLS (restless legs syndrome) BPPV (benign paroxysmal positional vertigo) Home Medications ?Medication ?Instructions ?Recorded ?Last Taken ?Type aspirin 81 mg chewable tablet 81 mg PO DAILY@0800 hear [facility] 02/26/13 12/05/19 History calcium 600 mg (as 600 mg PO DINNER supplement 02/26/13 12/04/19 History carbonate)-vitamin D3 20 mcg (800 unit) tablet pravastatin 20 mg tablet 20 mg PO QHS cholesterol 12/04/19 History lisinopril 20 mg tablet 20 mg PO DAILY 03/31/21 Unkn own History potassium chloride 20 mEq 20 meq PO BID 11/13/23 Unkno wn History tablet,extended release spironolactone 50 mg tablet 50 mg PO DAILY 11/13/23 Un known History cholecalciferol (vitamin D3) 25 25 mcg PO DAILY Unknown History mcg (1,000 unit) capsule magnesium 200 mg tablet 400 mg PO DAILY 12/21/24 Unk nown History ropinirole 4 mg tablet 4 mg PO QHS 12/21/24 Unknown History Allergy/AdvReac Type Severity Reaction Status Date / Time Sulfa (Sulfonamide Allergy Swelling Verified 12/21/24 19:49 Antibiotics) acetaminophen (From Vicodin) AdvReac Vomiting Verified 12/21/24 19:49 hydrocodone bitartrate (From AdvReac Vomiting Verified 12/21/24 19:49 Vicodin) promethazine HCl (From AdvReac Vomiting Verified 12/21/24 19:49 Phenergan) Family History Mother Heart disease Father Heart disease Surgical History S/P cholecystectomy Social History household members: spouse Smoking Status: Never smoker alcohol intake: never substance use type: does not use ROS Constitutional Constitutional: Reports fatigue, malaise and weakness; Denies anorexia, chills or fever(s) Eyes Eyes: Denies blurry vision or change in vision ENT HEENT: Denies dysphagia, headache(s) or sore throat Cardiovascular Cardiovascular: Reports syncope; Denies chest pain, dyspnea on exertion, edema, lightheadedness, orthopnea, palpitations, paroxysmal nocturnal dyspnea or rapid heart rate Respiratory/Chest Respiratory/Chest: Denies cough, dyspnea, productive cough, shortness of breath at rest or shortness of breath with exertion Gastrointestinal Gastrointestinal: Denies abdominal pain, constipation, diarrhea, nausea or vomiting Genitourinary Genitourinary: Denies dysuria Neurologic Neurologic: Reports syncope; Denies confusion, dizziness, focal weakness, headache(s), numbness or seizures Psychiatric Psychiatric: Denies anxiety or depression Vital Signs Vital Signs Vital Signs: 12/21/24 19:49 12/21/24 19:53 12/21/24 21:00 Temperature 97.7 F L Temperature Source Oral Pulse Rate 58 L 58 L 66 Respiratory Rate 18 14 12 Blood Pressure 99/47 L 101/48 L 106/47 L Blood Pressure Mean 64 65 66 Pulse Ox 95 93 97 Oxygen Delivery Method Room Air Room Air Room Air Weight Weight: 136 lb 14.513 oz Body Mass Index (BMI) 25.8 Physical Exam Const alert, oriented x3 and no apparent distress General Appearance: cooperative HEENT normocephalic, head/scalp atraumatic, hearing grossly normal bilaterally, moist oral mucous membranes and oropharynx normal Eyes EOMs intact bilaterally and conjunctivae normal Neck supple and no JVD Resp normal respiratory effort, no retractions, no use of accessory muscles and clearto auscultation bilaterally Cardio regular rate, regular rhythm, S1 normal heart sound and S2 normal heart sound Cardio Narrative: grade 2-3 ejection systolic murmur at site of aorta and also over mitral valve area GI normal to inspection, nondistended, normoactive bowel sounds, soft to palpation,non-tender and non-distended Extremity normal to inspection, full ROM and no clubbing, cyanosis or edema Neuro oriented x3, CN's II-XII intact bilaterally, moves all extremities and no focal motor deficits Sensorium / Orientation: awake Motor Exam: strength 5/5 throughout Psych affect normal Results Lab / Micro Data 12/21/24 19:50 12/21/24 19:50 Labs: Laboratory Results - last 24 hr 12/21/24 19:50: WBC 10.7, RBC 3.76 L, Hgb 11.0 L, Hct 34.0 L, MCV 90.4, MCH 29.3, MCHC 32.4, RDW Std Deviation 47.8 H, RDW Coeff of Bailee 14.5, Plt Count 254,MPV 9.6, Immature Gran % (Auto) 0.400, Neut % (Auto) 57.0, Lymph % (Auto) 34.6, Brooks % (Auto) 7.3, Eos % (Auto) 0.4, Baso % (Auto) 0.3, Absolute Neuts (auto) 6.1, Absolute Lymphs (auto) 3.68, Nucleated RBC % 0, Sodium 134, Potassium 3.5, Chloride 99, Carbon Dioxide 23.1, Anion Gap 12, BUN 18, Creatinine 0.98, Estim Creat Clear Calc 36.10 L, Est GFR (MDRD) Non-Af 57 L, BUN/Creatinine Ratio 18.3,Glucose 101 H, Calcium 9.2, Total Bilirubin 0.47, Direct Bilirubin 0.21, AST 21,ALT 7, Alkaline Phosphatase 77, Total Protein 6.4, Albumin 3.6, Globulin 2.7, Lipase 17 12/21/24 20:00: Lactic Acid 1.7 12/21/24 20:34: Urine Color Yellow, Urine Clarity Clear, Urine pH 6.5, Ur Specific [place] 1.015, Urine Protein 30 H, Urine Glucose (UA) Normal, Urine Ketones Negative, Urine Occult Blood 10 H, Urine Nitrite Negative, Urine Bilirubin Negative, Urine Urobilinogen Normal, Ur Leukocyte Esterase Negative Rhythm Strip Rhythm Strip: Sinus bradycardia Rate: 57 Ectopy: None Imaging Radiology Impression Abdomen/Pelvis CT 12/21/24 20:05 IMPRESSION: No definite explanation for the patient's lower abdominal pain. There is a [id number] amount of stool in sigmoid colonic loops. No definite bowel obstruction however. Other details as above. Reading Location: [facility] Chest X-Ray 12/21/24 20:10 IMPRESSION: No acute abnormality. Reading Location: [facility] Assessment & Plan Assessment/Plan (1) Syncope: PLAN: Plan #Syncope * Etiology of syncope is unclear. Patient was sitting in her chair and family noticed she had passed out. There was concern that she had lost her pulse and stopped breathing but came around before family could start CPR. * Blood pressure was in the 100 systolic but daughter says that is where she usually runs. * Of note she was seen in the ED ED and admitted in November 2023 for similar complaints. At that time her blood pressure was in the 90s systolic and neurology reviewed her. EEG done also did not show any evidence of any seizure and neurology did not think that the etiology was the brain. She also had a Holter monitor which showed a predominantly sinus rhythm with less than 1% ventricular and supraventricular ectopics and SVT. * 2D echo done then showed EF of 70% and no regional wall motion abnormalities. * Will admit to PCU under observation. Check orthostatics. * Her blood pressure was 100/50 at time of my review and had earlier on being 99/41. Daughter checked patient's most recent blood pressure at her PCPs which was in late November and was around 120 systolic. Patient is on lisinopril and spironolactone and I think her blood pressure usually runs too low for her to even be on blood pressure medication. Will therefore discontinue this. * She also did have aortic systolic murmur and I suspect that she may have some degree of aortic stenosis. This combined with her low blood pressure is likely contributing to her syncope a grade 2-3 * Repeat 2D echo. Hydrate gently with IV fluids. * Fall precautions. I suspect that this may be vasovagal as she had been sitting in a chair for a while. * #Probable aortic stenosis: * As above. Repeat 2D echo pending. * 2D echo from November showed EF of 70% and mild diffuse aortic valve thickening with peak aortic valve gradient of 21 mmHg and mean aortic valve gradient of 12 mmHg. * Repeat 2D echo ordered. * # Hypertension: On lisinopril and spironolactone. Hold BP meds as hypotension may be a cause of her symptoms. IV hydralazine as needed #Hyperlipidemia: On statin #Restless leg syndrome: On ropinirole DVT prophylaxis: Lovenox CODE STATUS:full code * Patient, daughter and counseled extensively about different types of CODE STATUS including full code, DNR CCA and DNR CCA. * Patient elects to be full code. * Total oqhc-be-epec time 17 minutes. Charges/Coding Visit Charges Inpatient E&M: 28427 Init Hosp L2 Procedures Hospitalists Procedures: 07718 Advncd Care Plan 30 Min 12/22/24 0647 <Electronically signed by Rachael Crook MD> Cosigner Signature (if applicable): CC: Dr. Juan Spann MD; Dr. Rachael Crook MD~ Signed [facility] Work Phone: Hospital Discharge instructionsAdditional Instructions [facility]: [facility] Phone: Instructions* Instruction Description Start Date Patient advised to follow-up with Primary Care Physician for BMI management. [facility] [place] [facility] Work Phone: Reason for referral (narrative)* Diagnostic Procedure Only (Routine) - Authorized Specialty Diagnoses / Procedures Referred By Contac t Referred To Contact US IMAGING Diagnoses Multiple thyroid nodules Procedures US THYROID/PARATHYROID US SOFT TISSUE HEAD & NECK REAL TIME IMGE Juan Brumfield MD [address] [place] [address] Us Imaging Referral ID Status Reason Start Date Expiration Date Visits Requested Visits Authorized [id number] Authorized Auto-Generat ed Referral 07/22/2022 08/21/2023 1 1 [facility] for referral (narrative)* Diagnostic Procedure Only (Routine) - Closed Specialty Diagnoses / Procedures Referred By Contac t Referred To Contact US IMAGING Diagnoses Multiple thyroid nodules Procedures US THYROID/PARATHYROID US SOFT TISSUE HEAD & NECK REAL TIME IMGE Juan Brumfield MD [address] [place] [address] [place] [address] Referral ID Status Reason Start Date Expiration Date V isits Requested Visits Authorized [id number] Closed Auto-Generate d Referral 07/22/2022 08/21/2023 1 1 [facility] for referral (narrative)* Diagnostic Procedure Only (Routine) - Closed Specialty Diagnoses / Procedures Referred By Contac t Referred To Contact XR IMAGING Diagnoses Primary osteoarthritis of both knees Procedures XR KNEE GENERAL 4V AP BOTH/PA BOTH/LAT/MERC BILATERAL RADIOLOGIC EXAM KNEE COMPLETE 4/MORE VIEWS Jackson Sumner MD [address] [address] [place] [address] Referral ID Status Reason Start Date Expiration Date V isits Requested Visits Authorized [id number] Closed Auto-Generate d Referral 04/17/2023 05/16/2024 1 1 [facility] for referral (narrative)* Diagnostic Procedure Only (Routine) - Closed Specialty Diagnoses / Procedures Referred By Contac t Referred To Contact XR IMAGING Diagnoses Primary osteoarthritis of both knees Procedures XR KNEE GENERAL 4V AP BOTH/PA BOTH/LAT/MERC BILATERAL RADIOLOGIC EXAM KNEE COMPLETE 4/MORE VIEWS Jackson Sumner MD [address] [facility] [address] [place] [address] [place] [address] Referral ID Status Reason Start Date Expiration Date V isits Requested Visits Authorized [id number] Closed Auto-Generate d Referral 04/17/2023 05/16/2024 1 1 [facility] for referral (narrative)* Diagnostic Procedure Only (Routine) - Authorized Specialty Diagnoses / Procedures [facility] Referred To Contact XR IMAGING Diagnoses Osteopenia, senile Primary ovarian failure Procedures DXA-AXIAL SKELETON Juan Spann MD [address] [place], [place] [id number] [place] [address] Referral ID Status Reason Start Date Expiration Date Visits Requested Visits Authorized [id number] Authorized Auto-Generat ed Referral 09/17/2023 10/16/2024 1 1 * Diagnostic Procedure Only (Routine) - Authorized Specialty Diagnoses / Procedures [facility] Referred To Contact US IMAGING Diagnoses Multiple thyroid nodules Procedures US THYROID/PARATHYROID US SOFT TISSUE HEAD & NECK REAL TIME IMGE DOCM Juan Spann MD [address] [place] [address] [place] [address] Referral ID Status Reason Start Date Expiration Date Visits Requested Visits Authorized [id number] Authorized Auto-Generat ed Referral 09/17/2023 10/16/2024 1 1 [facility] for referral (narrative)* Diagnostic Procedure Only (Routine) - Closed Specialty Diagnoses / Procedures Referred By Contac t Referred To Contact XR IMAGING Diagnoses Spinal stenosis of lumbar region, unspecified whether neurogenic claudication present Procedures XR LUMBAR GENERAL 3V AP/LAT/L5-S1 RADEX SPINE LUMBOSACRAL 2/3 VIEWS Destini Lay PA-C [address] [place] [address] [place] [address] Referral ID Status Reason Start Date Expiration Date V isits Requested Visits Authorized [id number] Closed Auto-Generate d Referral 03/20/2023 04/18/2024 1 1 [facility] for referral (narrative)* Diagnostic Procedure Only (Routine) - Closed Specialty Diagnoses / Procedures Referred By Contac t Referred To Contact XR IMAGING Diagnoses Acute hip pain, right Procedures XR HIP GENERAL 3V PELV/AP/LAT RIGHT RADEX HIP UNILATERAL WITH PELVIS 2-3 VIEWS Thang Shannon MD [address] [place] [address] [place] [address] Referral ID Status Reason Start Date Expiration Date V isits Requested Visits Authorized [id number] Closed Auto-Generate d Referral 02/25/2023 03/26/2024 1 1 [facility] for referral (narrative)No reason for referral information [facility] Work Phone: Reason for visit Narrative* Diagnostic Procedure Only (Routine) - Closed Specialty Diagnoses / Procedures Referred By Contac t Referred To Contact XR IMAGING Diagnoses Primary osteoarthritis of both knees Procedures XR KNEE GENERAL 4V AP BOTH/PA BOTH/LAT/MERC BILATERAL RADIOLOGIC EXAM KNEE COMPLETE 4/MORE VIEWS Jackson Sumner MD [address] [address] [place] [address] Referral ID Status Reason Start Date Expiration Date V isits Requested Visits Authorized [id number] Closed Auto-Generate d Referral 04/17/2023 05/16/2024 1 1 [facility] for visit Narrative* Diagnostic Procedure Only (Routine) - Closed Specialty Diagnoses / Procedures Referred By Contac t Referred To Contact US IMAGING Diagnoses Multiple thyroid nodules Procedures US THYROID/PARATHYROID US SOFT TISSUE HEAD & NECK REAL TIME IMGE DOCM Juan Spann MD [address] [place] [address] [place] [address] Referral ID Status Reason Start Date Expiration Date V isits Requested Visits Authorized [id number] Closed Auto-Generate d Referral 09/17/2023 10/16/2024 1 1 [facility] for visit Narrative* Diagnostic Procedure Only (Routine) - Closed Specialty Diagnoses / Procedures Referred By Contac t Referred To Contact XR IMAGING Diagnoses Osteopenia, senile Primary ovarian failure Procedures DXA-AXIAL SKELETON Juan Spann MD [address] [place] [address] [place] [address] Referral ID Status Reason Start Date Expiration Date V isits Requested Visits Authorized [id number] Closed Auto-Generate d Referral 09/17/2023 10/16/2024 1 1 [facility] for visit Narrative* Diagnostic Procedure Only (Routine) - Closed Specialty Diagnoses / Procedures Referred By Contac t Referred To Contact XR IMAGING Diagnoses Spinal stenosis of lumbar region, unspecified whether neurogenic claudication present Procedures XR LUMBAR GENERAL 3V AP/LAT/L5-S1 RADEX SPINE LUMBOSACRAL 2/3 VIEWS Destini Lay PA-C [address] [place] [address] [place] [address] Referral ID Status Reason Start Date Expiration Date V isits Requested Visits Authorized [id number] Closed Auto-Generate d Referral 03/20/2023 04/18/2024 1 1 [facility] for visit Narrative* Diagnostic Procedure Only (Routine) - Closed Specialty Diagnoses / Procedures Referred By Contac t Referred To Contact XR IMAGING Diagnoses Acute hip pain, right Procedures XR HIP GENERAL 3V PELV/AP/LAT RIGHT RADEX HIP UNILATERAL WITH PELVIS 2-3 VIEWS Thang Shannon MD [address] [place] [address] [place] [address] Referral ID Status Reason Start Date Expiration Date V isits Requested Visits Authorized [id number] Closed Auto-Generate d Referral 02/25/2023 03/26/2024 1 1 [facility] for visit Narrative* Diagnostic Procedure Only (Routine) - Closed Specialty Diagnoses / Procedures Referred By Contac t Referred To Contact XR IMAGING Diagnoses Lumbar radiculopathy Spinal stenosis, lumbar region, without neurogenic claudication Procedures XR THORACIC LIMITED 2V AP/LAT RADEX SPINE THORACIC 2 VIEWS Danii Roca MD, PhD [address] [place] [address] Phone: tel: fax: XR IMAGING [facility] Referral ID Status Reason Start Date Expiration Date V isits Requested Visits Authorized [id number] Closed Auto-Generate d Referral 04/27/2024 05/27/2025 1 1 [facility] for visit Narrative* CV Imaging (Emergency) - Authorized Specialty Diagnoses / Procedures Referred By Contac t Referred To Contact Cardiology Diagnoses Preoperative examination Systolic murmur Leg swelling Procedures Transthoracic Echo (TTE) Complete [place] TTHRC R-T 2D W/WOM-MODE COMPL SPEC&COLR D Naomi Jamil PA-C [address] [place] [address] Phone: tel: fax: Referral ID Status Reason Start Date Expiration Date Visits Requested Visits Authorized [id number] Authorized Perform Procedure 06/16/2024 06/16/2025 [address] [facility] Work Phone: Reason for visit Narrative* Auth/Cert Specialty Diagnoses / Procedures Referred By Contac t Referred To Contact Diagnoses Postlaminectomy syndrome of lumbar region Postlaminectomy syndrome of lumbar region [M96.1] Procedures AK PRQ IMPLTJ NSTIM ELECTRODE ARRAY EPIDURAL AK PRQ IMPLTJ NSTIM ELECTRODE ARRAY EPIDURAL AK INSJ/RPLCMT SPINAL NPG/RCVR POCKET CRTJ&CONNJ Percutaneous Thoracic Spinal Cord Stimulator Electrodes and Generator Placement (Medtronic) Percutaneous Thoracic Spinal Cord Stimulator Electrodes and Generator Placement (Medtronic) Percutaneous Thoracic Spinal Cord Stimulator Electrodes and Generator Placement (Medtronic) [place] [address] [address] [facility] Department [place]rological [place] [address] Phone: tel: fax: [place] [address] [place] [address] fax: Referral ID Status Reason Start Date Expiration Date Visits Re quested Visits Authorized [id number] [address] [facility] Work Phone: Chief Complaint Chief Complaint Description Start Date lower back post Lateral Lumb ar interbody fusion L3-4 on 01/23/2021 Preliminary chief co mplaint data, not yet signed by the author as of Advance Directives No Advanced Directives Records FoundDocuments on File Type Date Recorded Patient Emergency Dispatcher Expl anation Advance Directive(s) 05/08/2016 9:01 AM Advance Directive(s) 10/23/2010 12:00 AM Advance Directive(s) 04/24/2006 12:00 AM Documents on File Type Date Recorded Patient Emergency Dispatcher Expl anation Advance Directive(s) 05/08/2016 9:01 AM Advance Directive(s) 10/23/2010 12:00 AM Advance Directive(s) 04/24/2006 12:00 AM Documents on File Type Date Recorded Patient Emergency Dispatcher Expl anation Advance Directive(s) 10/23/2010 Advance Directive(s) 04/24/2006 Documents on File Type Date Recorded Patient Emergency Dispatcher Expl anation Advance Directive(s) 10/23/2010 Advance Directive(s) 04/24/2006 Date Activated Date Inactivated Comments 06/24/2024 6:33 AM Question Answer Comments Plan of Care: Code Status Discussion Not Compl eted Decision Maker: Provider Rationale: Patient condition does not warra nt discussion Date Activated Date Inactivated Comments 06/24/2024 6:33 AM Question Answer Comments Plan of Care: Code Status Discussion Not Compl eted Decision Maker: Provider Rationale: Patient condition does not warra nt discussion Advance Directive Response Recorded Date/ Time Do you have a Healthcare Pow er of Business Representative? Yes December 21, 2024 10:23pm Name of Medical Power of Business Representative Larry Putnam () December 21, 2024 10:23pm Family History No Family History Records Found Relationship Condition Age at Onset Recorded Date/T paula mother Cardiac disease Unknown Hypertension Unknown Disorder of thyroid Unknown father Cardiac disease Unknown Cerebrovascular accident (CVA) Unknown grandmother Coronary artery disease Unknown Myocardial infarction Unknown daughter Diabetes mellitus Unknown Reason for Referral Specialty Diagnoses / Procedures Referred By Contac t Referred To Contact MR IMAGING Diagnoses Injury of head, initial encounter Vertigo Procedures MRI BRAIN WO IVCON MRI BRAIN BRAIN STEM W/O CONTRAST MATERIAL Destini Lay PA-C [address] [place] [address] Mr Imaging Referral ID Status Reason Start Date Expiration Date Visits Requested Visits Authorized [id number] Authorized Auto-Generat ed Referral 09/05/2021 10/05/2022 1 1 Referral ID Status Reason Start Date Expiration Date V isits Requested Visits Authorized [id number] Closed Auto-Generate d Referral 09/05/2021 10/05/2022 1 1 Specialty Diagnoses / Procedures Referred By Contac t Referred To Contact Orthopedics Diagnoses Carpal tunnel syndrome, left Procedures CONSULT TO ORTHOPAEDICS OFFICE/OUTPATIENT [facility] 60-74 MINUTES Destini Lay PA-C [address] [place] [address] Referral ID Status Reason Start Date Expiration Date Visits Requested Visits Authorized [id number] Authorized PCP Requested Referral 12/03/2021 12/03/2022 1 1 Specialty Diagnoses / Procedures Referred By Contac t Referred To Contact [facility] Diagnoses Lumbar radiculopathy Spinal stenosis, lumbar region, without neurogenic claudication Lumbar spondylosis Disorder of sacrum Procedures CONSULT TO PHYSICAL THERAPY PHYSICAL THERAPY EVALUATION [facility] 45 MINS Aj Graham APRN.[employer] [address] [place] [address] [facility] [address] [place] [address] Referral ID Status Reason Start Date Expiration Date Visits Requested Visits Authorized [id number] Pending Review PCP Requested Referral Auto-Generate d Referral 06/26/2023 06/25/2024 99 99 Specialty Diagnoses / Procedures Referred By Contac t Referred To Contact [facility] Diagnoses Lumbar radiculopathy Spinal stenosis, lumbar region, without neurogenic claudication Procedures [facility] TO [facility] Aj Graham APRN.[employer] [address] [place] [address] Referral ID Status Reason Start Date Expiration Date Visits Requested Visits Authorized [id number] Ref Not Required PCP Requested Referral 12/11/2023 12/10/2024 1 1 Specialty Diagnoses / Procedures Referred By Contac t Referred To Contact MR IMAGING Diagnoses Pain in thoracic spine Procedures MRI THORACIC SPINE WO IVCON MRI SPINAL CANAL THORACIC W/O CONTRAST MATRL Aj Graham APRN.[employer] [address] [place] [address] [place] [address] Referral ID Status Reason Start Date Expiration Date Visits Requested Visits Authorized [id number] Authorized Auto-Generat ed Referral 12/11/2023 01/09/2025 1 1 Referral ID Status Reason Start Date Expiration Date V isits Requested Visits Authorized [id number] Closed Auto-Generate d Referral 12/11/2023 01/09/2025 1 1 Summary Purpose Chief Complaint and Reason for Visit Chief Complaint Admit Date SYNCOPE December 21, 2024 9 :33pm Syncope December 22, 2024 3 :03pm Reason for Visit Admit Date Chronic anemia December 21, 2024 9 :33pm History of spinal stenosis December 21, 2024 9:33pm Syncope December 21, 2024 9 :33pm Additional Source Comments Reason for Visit (unrecogniz ed section and content) Reason Comments Physical Therapy Specialty Diagnoses / Procedures Referred By Contac t Referred To Contact [facility] Diagnoses Lumbar radiculopathy Spinal stenosis, lumbar region, without neurogenic claudication Lumbar spondylosis Disorder of sacrum Procedures CONSULT TO PHYSICAL THERAPY PHYSICAL THERAPY EVALUATION [facility] 45 MINS Aj Graham APRN.[employer] [address] [place] [address] [facility] [address] [place] [address] Referral ID Status Reason Start Date Expiration Date Visits Requested Visits Authorized [id number] Authorized PCP Requested Referral Auto-Generate d Referral 03/10/2023 03/09/2024 99 99 Reason For Visit Description Start Date Postop - subsequent visit Preliminary reason f or visit data, not yet signed by the author as of lower back post Lateral Lumb ar interbody fusion L3-4 on 01/23/2021 Reason Onset Date Comments Refill Request 06/24/2021 Reason Onset Date Comments Refill Request 07/09/2021 Reason Comments ER F/U Marcelle Reason Comments Patient Update Reason Onset Date Comments Refill Request 10/17/2021 Specialty Diagnoses / Procedures Referred By Contac t Referred To Contact MR IMAGING Diagnoses Injury of head, initial encounter Vertigo Procedures MRI BRAIN WO IVCON MRI BRAIN BRAIN STEM W/O CONTRAST MATERIAL Destini Lay PA-C [address] [place] [address] Mr Imaging Referral ID Status Reason Start Date Expiration Date V isits Requested Visits Authorized [id number] Closed Auto-Generate d Referral 09/05/2021 10/05/2022 1 1 Reason Comments Results Reason Onset Date Comments Refill Request 12/04/2021 Reason Onset Date Comments Refill Request 01/04/2022 Reason Onset Date Comments Refill Request 04/16/2022 Reason Comments Derm Problem Skin all over itches X 1 month Reason Onset Date Comments Refill Request 05/07/2022 Reason Onset Date Comments Refill Request 05/16/2022 Reason Comments Refill Request Reason Onset Date Comments Refill Request 05/20/2022 Reason Onset Date Comments Refill Request 07/07/2022 Reason Comments UTI Frequency, burning x 2 days Reason Comments Medicare Wellness Exam Reason Comments low blood pressure Reason Onset Date Comments Refill Request 10/10/2022 Reason Onset Date Comments Refill Request 10/14/2022 Reason Onset Date Comments Refill Request 10/17/2022 Reason Onset Date Comments Refill Request 11/15/2022 Reason Onset Date Comments Refill Request 12/20/2022 Reason Comments Finger Issue Right index finger x 1 week, swelling in hand and wrist pain Reason Comments Radiology US Specialty Diagnoses / Procedures Referred By Contac t Referred To Contact US IMAGING Diagnoses Multiple thyroid nodules Procedures US THYROID/PARATHYROID US SOFT TISSUE HEAD & NECK REAL TIME IMGE Juan Brumfield MD [address] [place] [address] [facility] [address] Referral ID Status Reason Start Date Expiration Date V isits Requested Visits Authorized [id number] Closed Auto-Generate d Referral 07/22/2022 08/21/2023 1 1 Reason Comments Nasal Congestion sinus pressure x 3 w eeks Reason Onset Date Comments Sinus Problem 02/14/2023 Reason Onset Date Comments Refill Request 04/14/2023 Reason Comments New Patient Evaluation Back Pain Lower Leg Pain Left Reason Comments Injection Questions Reason Comments Injections TFESI Specialty Diagnoses / Procedures Referred By Contac t Referred To Contact Pain Management / PAIN MANAGEMENT Diagnoses Spinal stenosis, lumbar region without neurogenic claudication Radiculopathy, lumbar region Epidural Steroid Injection - Transforaminal Approach (TFESI) under fluoroscopic guidance LEFT-SIDED at S1 and L4-5 Procedures NJX AA&/STRD TFRML EPI LUMBAR/SACRAL 1 LEVEL NJX AA&/STRD TFRML EPI LUMBAR/SACRAL EA ADDL PROCEDURE Jackson Sumner MD [address] [place] [address] Jackson Sumner MD [address] [place] [address] Referral ID Status Reason Start Date Expiration Date Visits Re quested Visits Authorized [id number] Closed 03/10/2023 03/09/2024 1 1 Reason Onset Date Comments Refill Request 05/01/2023 Reason Comments Procedure Follow Up Spoke with patient f ollowing up from procedure. Patient states they are doing well, no questions or concerns at this time. Liudmila Ta MA Reason Onset Date Comments Refill Request 05/08/2023 Reason Onset Date Comments Refill Request 05/18/2023 Reason Comments Procedure L. Knee injection Specialty Diagnoses / Procedures Referred By Contac t Referred To Contact Pain Management / PAIN MANAGEMENT Diagnoses Bilateral primary osteoarthritis of knee Knee Joint Injection (Steroid) under ultrasound guidance LEFT-SIDED Procedures ARTHROCENTESIS ASPIR&/INJ MAJOR JT/BURSA W/US PROCEDURE 20 Jackson Sumner MD [address] [place] [address] Jackson Sumner MD [address] [address] Referral ID Status Reason Start Date Expiration Date Visits Re quested Visits Authorized [id number] Closed 03/10/2023 03/09/2024 1 1 Reason Comments Procedure Follow Up LEFT KNEE INJECTION Reason Comments Pain Left leg down to big toe & lower back, getting worse ~ 1 wk ago Reason Comments Patient Question Reason Comments Left Toe/Ankle Pain Reason Comments Injections Questions Reason Comments Follow Up Back Pain Hip Pain Knee Pain Reason Onset Date Comments Refill Request 06/30/2023 Reason Onset Date Comments Refill Request 07/10/2023 Reason Comments Procedure RIGHT GENICULAR Knee Pain LEFT KNEE PAIN Specialty Diagnoses / Procedures Referred By Layo burns Referred To Contact Pain Management / PAIN MANAGEMENT Diagnoses Bilateral primary osteoarthritis of knee Right genicular nerve block Procedures FLUOR NEEDLE/CATH SPINE/PARASPINAL DX/THER ADDON INJECTION AA&/STRD OTHER PERIPHERAL NERVE/BRANCH PROCEDURE Aj Graham, MANAGER [employer]ILITY[employer] [address] [address] Danii Roca MD [address] [place] [address] Referral ID Status Reason Start Date Expiration Date Visits Re quested Visits Authorized [id number] Closed 07/17/2023 10/15/2023 1 1 Reason Comments Procedure Follow Up Dr. Roca 07/17/23 Reason Comments Follow Up Post procedure Reason Comments PT Eval Reason Comments Injections LEFT GENICULAR RFA Knee Pain LEFT Specialty Diagnoses / Procedures Referred By Layo burns Referred To Contact Pain Management / PAIN MANAGEMENT Diagnoses Bilateral primary osteoarthritis of knee Left Genicular Radiofrequncy Ablation with fluoroscopic guidance Procedures DSTRJ NEUROLYTIC AGENT OTHER PERIPHERAL NERVE DSTRJ NEUROLYTIC AGENT OTHER PERIPHERAL NERVE DSTRJ NEUROLYTIC AGENT OTHER PERIPHERAL NERVE PROCEDURE 20 PreAj orozco, MANAGER MOBILITY.[employer] [address] [place] [address] Jackson Sumner MD [address] [place] [address] Referral ID Status Reason Start Date Expiration Date Visits Re quested Visits Authorized [id number] Closed 07/25/2023 03/09/2024 1 1 Reason Comments Medicare Wellness Exam Reason Comments Injections Reason Comments Follow Up Back radiating to le ft thigh, knee and ankle Back Pain Lower Reason Comments Medication Problem Reason Comments ER F/U [facility] Reason Comments Hospital F/U [facility] Reason Onset Date Comments Transition Of Care 11/17/2023 Reason Comments Procedure LEFT TFESI LUMBAR Back Pain LOWER - BILATERAL Leg Pain LEFT Specialty Diagnoses / Procedures Referred By Contac t Referred To Contact Pain Management / PAIN MANAGEMENT Diagnoses Radiculopathy, lumbar region Left TFESI w fluoro at S1 and L5-S1; 81mg asp Procedures NJX AA&/STRD TFRML EPI LUMBAR/SACRAL 1 LEVEL NJX AA&/STRD TFRML EPI LUMBAR/SACRAL EA ADDL PROCEDURE 20 Jackson Sumner MD [address] [place] [address] Danii Roca MD, PhD [address] [place] [address] Referral ID Status Reason Start Date Expiration Date V isits Requested Visits Authorized [id number] New Request 11/21/2023 02/19/2024 1 1 Reason Comments Procedure Reason Comments ER F/U Reason Onset Date Comments Refill Request 08/17/2023 Reason Comments Consult Reason Comments Follow Up Bilateral Knee Pain Reason Comments Recheck Reason Onset Date Comments Refill Request 12/26/2023 Reason Comments SCS clearance Reason Comments Patient Question Pain meds not workin g Reason Comments Follow Up Low Back Pain Leg Pain Specialty Diagnoses / Procedures Referred By Contac t Referred To Contact MR IMAGING Diagnoses Pain in thoracic spine Procedures MRI THORACIC SPINE WO IVCON MRI SPINAL CANAL THORACIC W/O CONTRAST Aj Camacho APRN.[employer] [address] [place] [address] [place] [address] Referral ID Status Reason Start Date Expiration Date V isits Requested Visits Authorized [id number] Closed Auto-Generate d Referral 12/11/2023 01/09/2025 1 1 Reason Comments Leg Pain Pain to bilat. legs Reason Comments Procedure Caudal Leg Pain Right - to the ankle Specialty Diagnoses / Procedures Referred By Contac t Referred To Contact Pain Management / PAIN MANAGEMENT Diagnoses Radiculopathy, lumbar region Spinal stenosis, lumbar region without neurogenic claudication Caudal SHERMAN, baby aspirin Procedures NJX DX/THER SBST INTRLMNR LMBR/SAC W/IMG GDN PROCEDURE Danii Roca MD, PhD [address] [place] [address] [place] [address] [place] [address] Referral ID Status Reason Start Date Expiration Date Visits Re quested Visits Authorized [id number] Closed 01/30/2024 04/29/2024 1 1 Reason Onset Date Comments Refill Request 02/13/2024 Reason Onset Date Comments Refill Request 03/09/2024 Reason Comments 6 Month Exam Reason Comments Procedure Follow Up SCOTT TEFESI Reason Comments Procedure BL TFESI Lumbar Specialty Diagnoses / Procedures Referred By Contac t Referred To Contact Pain Management / PAIN MANAGEMENT Diagnoses Radiculopathy, lumbar region bilateral L2/3 TFESI, baby aspirin Procedures NJX AA&/STRD TFRML EPI LUMBAR/SACRAL 1 LEVEL PROCEDURE 20 Danii Roca MD, PhD [address] [place] [address] [place] [address] [place] [address] Referral ID Status Reason Start Date Expiration Date Visits Re quested Visits Authorized [id number] Closed 03/10/2024 03/09/2025 1 1 Reason Onset Date Comments Refill Request 04/05/2024 Reason Comments Follow Up post procedure Reason Onset Date Comments Refill Request 04/19/2024 Reason Comments SCS update Reason Comments Patient Update SCS TRIAL SCHEDULE Reason Comments Patient Update CALLED PATIENT SPOKE TO DAUGHTER AND SPENSER THEY BOTH CONFIRMED 04/27/24 IS A GOOD DAY Reason Comments Procedure Scs trial Back Pain Lower - bilateral - left is worse Specialty Diagnoses / Procedures Referred By Contac t Referred To Contact Pain Management / PAIN MANAGEMENT Diagnoses Medtronic Dx: Lumbar radiculopathy [M54.16 (ICD-10-CM)]; Spinal stenosis, lumbar region, without neurogenic claudication [M48.061 (ICD-10-CM)] Comments: SCS trial x2 leads (Medtronic, [address] x2) Procedures PRQ IMPLTJ NSTIM ELECTRODE ARRAY EPIDURAL PROCEDURE 30 Danii Roca MD, PhD [address] [place] [address] Phone: tel: fax: Danii Roca MD, PhD [address] [place] [address] Phone: tel: fax: Referral ID Status Reason Start Date Expiration Date Visits Re quested Visits Authorized [id number] Closed 04/27/2024 03/09/2025 1 1 Reason Comments Follow Up LEAD PULL Reason Comments Patient Update SCS IMPLANT Reason Comments Refill Request celecoxib (CELEBREX) 200 mg capsule Reason Onset Date Comments Refill Request 05/24/2024 Reason Comments Pre-Op Exam Reason Onset Date Comments Results 06/03/2024 Reason Onset Date Comments Results 06/07/2024 Reason Comments Question Reason Onset Date Comments Results 06/22/2024 Reason Onset Date Comments Refill Request 06/28/2024 Reason Onset Date Comments Refill Request 07/05/2024 Reason Comments Radiology US Specialty Diagnoses / Procedures Referred By Contac t Referred To Contact US IMAGING Diagnoses Multiple thyroid nodules Procedures US THYROID/PARATHYROID US SOFT TISSUE HEAD & NECK REAL TIME IMGE Juan Brumfield MD [address] [place] [address] Phone: tel: fax: [place] [address] Referral ID Status Reason Start Date Expiration Date V isits Requested Visits Authorized [id number] Closed Auto-Generate d Referral 09/17/2024 10/17/2025 1 1 Reason Onset Date Comments Refill Request 11/17/2024 Source Comments (unrecognize d section and content) In the event this informatio n is protected by the Federal Confidentiality of Alcohol and Drug Abuse Patient Records regulations: The Federal rules restrict any use of the information to criminally investigate or prosecute any alcohol or drug abuse patient.[facility] the event this information is protected by the Federal Confidentiality of Alcohol and Drug Abuse Patient Records regulations: The Federal rules restrict any use of the information to criminally investigate or prosecute any alcohol or drug abuse patient.[facility] HospitalIn the event this information is protected by the Federal Confidentiality of Alcohol and Drug Abuse Patient Records regulations: The Federal rules restrict any use of the information to criminally investigate or prosecute any alcohol or drug abuse patient.[facility] HospitalIn the event this information is protected by the Federal Confidentiality of Alcohol and Drug Abuse Patient Records regulations: The Federal rules restrict any use of the information to criminally investigate or prosecute any alcohol or drug abuse patient.[facility] HospitalIn the event this information is protected by the Federal Confidentiality of Alcohol and Drug Abuse Patient Records regulations: The Federal rules restrict any use of the information to criminally investigate or prosecute any alcohol or drug abuse patient.[facility] HospitalIn the event this information is protected by the Federal Confidentiality of Alcohol and Drug Abuse Patient Records regulations: The Federal rules restrict any use of the information to criminally investigate or prosecute any alcohol or drug abuse patient.[facility] HospitalIn the event this information is protected by the Federal Confidentiality of Alcohol and Drug Abuse Patient Records regulations: The Federal rules restrict any use of the information to criminally investigate or prosecute any alcohol or drug abuse patient.[facility] HospitalIn the event this information is protected by the Federal Confidentiality of Alcohol and Drug Abuse Patient Records regulations: The Federal rules restrict any use of the information to criminally investigate or prosecute any alcohol or drug abuse patient.[facility] HospitalIn the event this information is protected by the Federal Confidentiality of Alcohol and Drug Abuse Patient Records regulations: The Federal rules restrict any use of the information to criminally investigate or prosecute any alcohol or drug abuse patient.[facility] HospitalIn the event this information is protected by the Federal Confidentiality of Alcohol and Drug Abuse Patient Records regulations: The Federal rules restrict any use of the information to criminally investigate or prosecute any alcohol or drug abuse patient.[facility] HospitalIn the event this information is protected by the Federal Confidentiality of Alcohol and Drug Abuse Patient Records regulations: The Federal rules restrict any use of the information to criminally investigate or prosecute any alcohol or drug abuse patient.[facility] HospitalIn the event this information is protected by the Federal Confidentiality of Alcohol and Drug Abuse Patient Records regulations: The Federal rules restrict any use of the information to criminally investigate or prosecute any alcohol or drug abuse patient.[facility] HospitalIn the event this information is protected by the Federal Confidentiality of Alcohol and Drug Abuse Patient Records regulations: The Federal rules restrict any use of the information to criminally investigate or prosecute any alcohol or drug abuse patient.[facility] HospitalIn the event this information is protected by the Federal Confidentiality of Alcohol and Drug Abuse Patient Records regulations: The Federal rules restrict any use of the information to criminally investigate or prosecute any alcohol or drug abuse patient.[facility] HospitalIn the event this information is protected by the Federal Confidentiality of Alcohol and Drug Abuse Patient Records regulations: The Federal rules restrict any use of the information to criminally investigate or prosecute any alcohol or drug abuse patient.[facility] HospitalIn the event this information is protected by the Federal Confidentiality of Alcohol and Drug Abuse Patient Records regulations: The Federal rules restrict any use of the information to criminally investigate or prosecute any alcohol or drug abuse patient.[facility] HospitalIn the event this information is protected by the Federal Confidentiality of Alcohol and Drug Abuse Patient Records regulations: The Federal rules restrict any use of the information to criminally investigate or prosecute any alcohol or drug abuse patient.[facility] HospitalIn the event this information is protected by the Federal Confidentiality of Alcohol and Drug Abuse Patient Records regulations: The Federal rules restrict any use of the information to criminally investigate or prosecute any alcohol or drug abuse patient.[facility] HospitalIn the event this information is protected by the Federal Confidentiality of Alcohol and Drug Abuse Patient Records regulations: The Federal rules restrict any use of the information to criminally investigate or prosecute any alcohol or drug abuse patient.[facility] HospitalIn the event this information is protected by the Federal Confidentiality of Alcohol and Drug Abuse Patient Records regulations: The Federal rules restrict any use of the information to criminally investigate or prosecute any alcohol or drug abuse patient.[facility] the event this information is protected by the Federal Confidentiality of Alcohol and Drug Abuse Patient Records regulations: The Federal rules restrict any use of the information to criminally investigate or prosecute any alcohol or drug abuse patient.[facility] HospitalIn the event this information is protected by the Federal Confidentiality of Alcohol and Drug Abuse Patient Records regulations: The Federal rules restrict any use of the information to criminally investigate or prosecute any alcohol or drug abuse patient.[facility] HospitalIn the event this information is protected by the Federal Confidentiality of Alcohol and Drug Abuse Patient Records regulations: The Federal rules restrict any use of the information to criminally investigate or prosecute any alcohol or drug abuse patient.[facility] HospitalIn the event this information is protected by the Federal Confidentiality of Alcohol and Drug Abuse Patient Records regulations: The Federal rules restrict any use of the information to criminally investigate or prosecute any alcohol or drug abuse patient.[facility] HospitalIn the event this information is protected by the Federal Confidentiality of Alcohol and Drug Abuse Patient Records regulations: The Federal rules restrict any use of the information to criminally investigate or prosecute any alcohol or drug abuse patient.[facility] HospitalIn the event this information is protected by the Federal Confidentiality of Alcohol and Drug Abuse Patient Records regulations: The Federal rules restrict any use of the information to criminally investigate or prosecute any alcohol or drug abuse patient.[facility] HospitalIn the event this information is protected by the Federal Confidentiality of Alcohol and Drug Abuse Patient Records regulations: The Federal rules restrict any use of the information to criminally investigate or prosecute any alcohol or drug abuse patient.[facility] HospitalIn the event this information is protected by the Federal Confidentiality of Alcohol and Drug Abuse Patient Records regulations: The Federal rules restrict any use of the information to criminally investigate or prosecute any alcohol or drug abuse patient.[facility] HospitalIn the event this information is protected by the Federal Confidentiality of Alcohol and Drug Abuse Patient Records regulations: The Federal rules restrict any use of the information to criminally investigate or prosecute any alcohol or drug abuse patient.[facility] HospitalIn the event this information is protected by the Federal Confidentiality of Alcohol and Drug Abuse Patient Records regulations: The Federal rules restrict any use of the information to criminally investigate or prosecute any alcohol or drug abuse patient.[facility] HospitalIn the event this information is protected by the Federal Confidentiality of Alcohol and Drug Abuse Patient Records regulations: The Federal rules restrict any use of the information to criminally investigate or prosecute any alcohol or drug abuse patient.[facility] HospitalIn the event this information is protected by the Federal Confidentiality of Alcohol and Drug Abuse Patient Records regulations: The Federal rules restrict any use of the information to criminally investigate or prosecute any alcohol or drug abuse patient.[facility] HospitalIn the event this information is protected by the Federal Confidentiality of Alcohol and Drug Abuse Patient Records regulations: The Federal rules restrict any use of the information to criminally investigate or prosecute any alcohol or drug abuse patient.[facility] HospitalIn the event this information is protected by the Federal Confidentiality of Alcohol and Drug Abuse Patient Records regulations: The Federal rules restrict any use of the information to criminally investigate or prosecute any alcohol or drug abuse patient.[facility] HospitalIn the event this information is protected by the Federal Confidentiality of Alcohol and Drug Abuse Patient Records regulations: The Federal rules restrict any use of the information to criminally investigate or prosecute any alcohol or drug abuse patient.[facility] HospitalIn the event this information is protected by the Federal Confidentiality of Alcohol and Drug Abuse Patient Records regulations: The Federal rules restrict any use of the information to criminally investigate or prosecute any alcohol or drug abuse patient.[facility] HospitalIn the event this information is protected by the Federal Confidentiality of Alcohol and Drug Abuse Patient Records regulations: The Federal rules restrict any use of the information to criminally investigate or prosecute any alcohol or drug abuse patient.[facility] HospitalIn the event this information is protected by the Federal Confidentiality of Alcohol and Drug Abuse Patient Records regulations: The Federal rules restrict any use of the information to criminally investigate or prosecute any alcohol or drug abuse patient.[facility] HospitalIn the event this information is protected by the Federal Confidentiality of Alcohol and Drug Abuse Patient Records regulations: The Federal rules restrict any use of the information to criminally investigate or prosecute any alcohol or drug abuse patient.[facility] HospitalIn the event this information is protected by the Federal Confidentiality of Alcohol and Drug Abuse Patient Records regulations: The Federal rules restrict any use of the information to criminally investigate or prosecute any alcohol or drug abuse patient.[facility] HospitalIn the event this information is protected by the Federal Confidentiality of Alcohol and Drug Abuse Patient Records regulations: The Federal rules restrict any use of the information to criminally investigate or prosecute any alcohol or drug abuse patient.[facility] HospitalIn the event this information is protected by the Federal Confidentiality of Alcohol and Drug Abuse Patient Records regulations: The Federal rules restrict any use of the information to criminally investigate or prosecute any alcohol or drug abuse patient.[facility] HospitalIn the event this information is protected by the Federal Confidentiality of Alcohol and Drug Abuse Patient Records regulations: The Federal rules restrict any use of the information to criminally investigate or prosecute any alcohol or drug abuse patient.[facility] HospitalIn the event this information is protected by the Federal Confidentiality of Alcohol and Drug Abuse Patient Records regulations: The Federal rules restrict any use of the information to criminally investigate or prosecute any alcohol or drug abuse patient.[facility] HospitalIn the event this information is protected by the Federal Confidentiality of Alcohol and Drug Abuse Patient Records regulations: The Federal rules restrict any use of the information to criminally investigate or prosecute any alcohol or drug abuse patient.[facility] HospitalIn the event this information is protected by the Federal Confidentiality of Alcohol and Drug Abuse Patient Records regulations: The Federal rules restrict any use of the information to criminally investigate or prosecute any alcohol or drug abuse patient.[facility] HospitalIn the event this information is protected by the Federal Confidentiality of Alcohol and Drug Abuse Patient Records regulations: The Federal rules restrict any use of the information to criminally investigate or prosecute any alcohol or drug abuse patient.[facility] HospitalIn the event this information is protected by the Federal Confidentiality of Alcohol and Drug Abuse Patient Records regulations: The Federal rules restrict any use of the information to criminally investigate or prosecute any alcohol or drug abuse patient.[facility] HospitalIn the event this information is protected by the Federal Confidentiality of Alcohol and Drug Abuse Patient Records regulations: The Federal rules restrict any use of the information to criminally investigate or prosecute any alcohol or drug abuse patient.[facility]In the event this information is protected by the Federal Confidentiality of Alcohol and Drug Abuse Patient Records regulations: The Federal rules restrict any use of the information to criminally investigate or prosecute any alcohol or drug abuse patient.[facility]In the event this information is protected by the Federal Confidentiality of Alcohol and Drug Abuse Patient Records regulations: The Federal rules restrict any use of the information to criminally investigate or prosecute any alcohol or drug abuse patient.[facility]In the event this information is protected by the Federal Confidentiality of Alcohol and Drug Abuse Patient Records regulations: The Federal rules restrict any use of the information to criminally investigate or prosecute any alcohol or drug abuse patient.[facility]In the event this information is protected by the Federal Confidentiality of Alcohol and Drug Abuse Patient Records regulations: The Federal rules restrict any use of the information to criminally investigate or prosecute any alcohol or drug abuse patient.[facility] HospitalIn the event this information is protected by the Federal Confidentiality of Alcohol and Drug Abuse Patient Records regulations: The Federal rules restrict any use of the information to criminally investigate or prosecute any alcohol or drug abuse patient.[facility] HospitalIn the event this information is protected by the Federal Confidentiality of Alcohol and Drug Abuse Patient Records regulations: The Federal rules restrict any use of the information to criminally investigate or prosecute any alcohol or drug abuse patient.[facility] HospitalIn the event this information is protected by the Federal Confidentiality of Alcohol and Drug Abuse Patient Records regulations: The Federal rules restrict any use of the information to criminally investigate or prosecute any alcohol or drug abuse patient.[facility] HospitalIn the event this information is protected by the Federal Confidentiality of Alcohol and Drug Abuse Patient Records regulations: The Federal rules restrict any use of the information to criminally investigate or prosecute any alcohol or drug abuse patient.[facility] HospitalIn the event this information is protected by the Federal Confidentiality of Alcohol and Drug Abuse Patient Records regulations: The Federal rules restrict any use of the information to criminally investigate or prosecute any alcohol or drug abuse patient.[facility] HospitalIn the event this information is protected by the Federal Confidentiality of Alcohol and Drug Abuse Patient Records regulations: The Federal rules restrict any use of the information to criminally investigate or prosecute any alcohol or drug abuse patient.[facility] HospitalIn the event this information is protected by the Federal Confidentiality of Alcohol and Drug Abuse Patient Records regulations: The Federal rules restrict any use of the information to criminally investigate or prosecute any alcohol or drug abuse patient.[facility] HospitalIn the event this information is protected by the Federal Confidentiality of Alcohol and Drug Abuse Patient Records regulations: The Federal rules restrict any use of the information to criminally investigate or prosecute any alcohol or drug abuse patient.[facility] HospitalIn the event this information is protected by the Federal Confidentiality of Alcohol and Drug Abuse Patient Records regulations: The Federal rules restrict any use of the information to criminally investigate or prosecute any alcohol or drug abuse patient.[facility] HospitalIn the event this information is protected by the Federal Confidentiality of Alcohol and Drug Abuse Patient Records regulations: The Federal rules restrict any use of the information to criminally investigate or prosecute any alcohol or drug abuse patient.[facility] HospitalIn the event this information is protected by the Federal Confidentiality of Alcohol and Drug Abuse Patient Records regulations: The Federal rules restrict any use of the information to criminally investigate or prosecute any alcohol or drug abuse patient.[facility] HospitalIn the event this information is protected by the Federal Confidentiality of Alcohol and Drug Abuse Patient Records regulations: The Federal rules restrict any use of the information to criminally investigate or prosecute any alcohol or drug abuse patient.[facility] HospitalIn the event this information is protected by the Federal Confidentiality of Alcohol and Drug Abuse Patient Records regulations: The Federal rules restrict any use of the information to criminally investigate or prosecute any alcohol or drug abuse patient.[facility] HospitalIn the event this information is protected by the Federal Confidentiality of Alcohol and Drug Abuse Patient Records regulations: The Federal rules restrict any use of the information to criminally investigate or prosecute any alcohol or drug abuse patient.[facility] HospitalIn the event this information is protected by the Federal Confidentiality of Alcohol and Drug Abuse Patient Records regulations: The Federal rules restrict any use of the information to criminally investigate or prosecute any alcohol or drug abuse patient.[facility] HospitalIn the event this information is protected by the Federal Confidentiality of Alcohol and Drug Abuse Patient Records regulations: The Federal rules restrict any use of the information to criminally investigate or prosecute any alcohol or drug abuse patient.[facility] HospitalIn the event this information is protected by the Federal Confidentiality of Alcohol and Drug Abuse Patient Records regulations: The Federal rules restrict any use of the information to criminally investigate or prosecute any alcohol or drug abuse patient.[facility] the event this information is protected by the Federal Confidentiality of Alcohol and Drug Abuse Patient Records regulations: The Federal rules restrict any use of the information to criminally investigate or prosecute any alcohol or drug abuse patient.[facility] HospitalIn the event this information is protected by the Federal Confidentiality of Alcohol and Drug Abuse Patient Records regulations: The Federal rules restrict any use of the information to criminally investigate or prosecute any alcohol or drug abuse patient.[facility] HospitalIn the event this information is protected by the Federal Confidentiality of Alcohol and Drug Abuse Patient Records regulations: The Federal rules restrict any use of the information to criminally investigate or prosecute any alcohol or drug abuse patient.[facility] HospitalIn the event this information is protected by the Federal Confidentiality of Alcohol and Drug Abuse Patient Records regulations: The Federal rules restrict any use of the information to criminally investigate or prosecute any alcohol or drug abuse patient.[facility] HospitalIn the event this information is protected by the Federal Confidentiality of Alcohol and Drug Abuse Patient Records regulations: The Federal rules restrict any use of the information to criminally investigate or prosecute any alcohol or drug abuse patient.[facility] HospitalIn the event this information is protected by the Federal Confidentiality of Alcohol and Drug Abuse Patient Records regulations: The Federal rules restrict any use of the information to criminally investigate or prosecute any alcohol or drug abuse patient.[facility] HospitalIn the event this information is protected by the Federal Confidentiality of Alcohol and Drug Abuse Patient Records regulations: The Federal rules restrict any use of the information to criminally investigate or prosecute any alcohol or drug abuse patient.[facility] HospitalIn the event this information is protected by the Federal Confidentiality of Alcohol and Drug Abuse Patient Records regulations: The Federal rules restrict any use of the information to criminally investigate or prosecute any alcohol or drug abuse patient.[facility] HospitalIn the event this information is protected by the Federal Confidentiality of Alcohol and Drug Abuse Patient Records regulations: The Federal rules restrict any use of the information to criminally investigate or prosecute any alcohol or drug abuse patient.[facility] HospitalIn the event this information is protected by the Federal Confidentiality of Alcohol and Drug Abuse Patient Records regulations: The Federal rules restrict any use of the information to criminally investigate or prosecute any alcohol or drug abuse patient.[facility] HospitalIn the event this information is protected by the Federal Confidentiality of Alcohol and Drug Abuse Patient Records regulations: The Federal rules restrict any use of the information to criminally investigate or prosecute any alcohol or drug abuse patient.[facility] HospitalIn the event this information is protected by the Federal Confidentiality of Alcohol and Drug Abuse Patient Records regulations: The Federal rules restrict any use of the information to criminally investigate or prosecute any alcohol or drug abuse patient.[facility] HospitalIn the event this information is protected by the Federal Confidentiality of Alcohol and Drug Abuse Patient Records regulations: The Federal rules restrict any use of the information to criminally investigate or prosecute any alcohol or drug abuse patient.[facility] HospitalIn the event this information is protected by the Federal Confidentiality of Alcohol and Drug Abuse Patient Records regulations: The Federal rules restrict any use of the information to criminally investigate or prosecute any alcohol or drug abuse patient.[facility] HospitalIn the event this information is protected by the Federal Confidentiality of Alcohol and Drug Abuse Patient Records regulations: The Federal rules restrict any use of the information to criminally investigate or prosecute any alcohol or drug abuse patient.[facility] HospitalIn the event this information is protected by the Federal Confidentiality of Alcohol and Drug Abuse Patient Records regulations: The Federal rules restrict any use of the information to criminally investigate or prosecute any alcohol or drug abuse patient.[facility] HospitalIn the event this information is protected by the Federal Confidentiality of Alcohol and Drug Abuse Patient Records regulations: The Federal rules restrict any use of the information to criminally investigate or prosecute any alcohol or drug abuse patient.[facility] HospitalIn the event this information is protected by the Federal Confidentiality of Alcohol and Drug Abuse Patient Records regulations: The Federal rules restrict any use of the information to criminally investigate or prosecute any alcohol or drug abuse patient.[facility] HospitalIn the event this information is protected by the Federal Confidentiality of Alcohol and Drug Abuse Patient Records regulations: The Federal rules restrict any use of the information to criminally investigate or prosecute any alcohol or drug abuse patient.[facility] HospitalIn the event this information is protected by the Federal Confidentiality of Alcohol and Drug Abuse Patient Records regulations: The Federal rules restrict any use of the information to criminally investigate or prosecute any alcohol or drug abuse patient.[facility] HospitalIn the event this information is protected by the Federal Confidentiality of Alcohol and Drug Abuse Patient Records regulations: The Federal rules restrict any use of the information to criminally investigate or prosecute any alcohol or drug abuse patient.[facility] HospitalIn the event this information is protected by the Federal Confidentiality of Alcohol and Drug Abuse Patient Records regulations: The Federal rules restrict any use of the information to criminally investigate or prosecute any alcohol or drug abuse patient.[facility] HospitalIn the event this information is protected by the Federal Confidentiality of Alcohol and Drug Abuse Patient Records regulations: The Federal rules restrict any use of the information to criminally investigate or prosecute any alcohol or drug abuse patient.[facility] HospitalIn the event this information is protected by the Federal Confidentiality of Alcohol and Drug Abuse Patient Records regulations: The Federal rules restrict any use of the information to criminally investigate or prosecute any alcohol or drug abuse patient.[facility] HospitalIn the event this information is protected by the Federal Confidentiality of Alcohol and Drug Abuse Patient Records regulations: The Federal rules restrict any use of the information to criminally investigate or prosecute any alcohol or drug abuse patient.[facility] HospitalIn the event this information is protected by the Federal Confidentiality of Alcohol and Drug Abuse Patient Records regulations: The Federal rules restrict any use of the information to criminally investigate or prosecute any alcohol or drug abuse patient.[facility] HospitalIn the event this information is protected by the Federal Confidentiality of Alcohol and Drug Abuse Patient Records regulations: The Federal rules restrict any use of the information to criminally investigate or prosecute any alcohol or drug abuse patient.[facility] HospitalIn the event this information is protected by the Federal Confidentiality of Alcohol and Drug Abuse Patient Records regulations: The Federal rules restrict any use of the information to criminally investigate or prosecute any alcohol or drug abuse patient.[facility] HospitalIn the event this information is protected by the Federal Confidentiality of Alcohol and Drug Abuse Patient Records regulations: The Federal rules restrict any use of the information to criminally investigate or prosecute any alcohol or drug abuse patient.[facility] HospitalIn the event this information is protected by the Federal Confidentiality of Alcohol and Drug Abuse Patient Records regulations: The Federal rules restrict any use of the information to criminally investigate or prosecute any alcohol or drug abuse patient.[facility] HospitalIn the event this information is protected by the Federal Confidentiality of Alcohol and Drug Abuse Patient Records regulations: The Federal rules restrict any use of the information to criminally investigate or prosecute any alcohol or drug abuse patient.[facility] HospitalIn the event this information is protected by the Federal Confidentiality of Alcohol and Drug Abuse Patient Records regulations: The Federal rules restrict any use of the information to criminally investigate or prosecute any alcohol or drug abuse patient.[facility] HospitalIn the event this information is protected by the Federal Confidentiality of Alcohol and Drug Abuse Patient Records regulations: The Federal rules restrict any use of the information to criminally investigate or prosecute any alcohol or drug abuse patient.[facility] HospitalIn the event this information is protected by the Federal Confidentiality of Alcohol and Drug Abuse Patient Records regulations: The Federal rules restrict any use of the information to criminally investigate or prosecute any alcohol or drug abuse patient.[facility] HospitalIn the event this information is protected by the Federal Confidentiality of Alcohol and Drug Abuse Patient Records regulations: The Federal rules restrict any use of the information to criminally investigate or prosecute any alcohol or drug abuse patient.[facility]In the event this information is protected by the Federal Confidentiality of Alcohol and Drug Abuse Patient Records regulations: The Federal rules restrict any use of the information to criminally investigate or prosecute any alcohol or drug abuse patient.[facility] HospitalIn the event this information is protected by the Federal Confidentiality of Alcohol and Drug Abuse Patient Records regulations: The Federal rules restrict any use of the information to criminally investigate or prosecute any alcohol or drug abuse patient.[facility] HospitalIn the event this information is protected by the Federal Confidentiality of Alcohol and Drug Abuse Patient Records regulations: The Federal rules restrict any use of the information to criminally investigate or prosecute any alcohol or drug abuse patient.[facility] HospitalIn the event this information is protected by the Federal Confidentiality of Alcohol and Drug Abuse Patient Records regulations: The Federal rules restrict any use of the information to criminally investigate or prosecute any alcohol or drug abuse patient.[facility]In the event this information is protected by the Federal Confidentiality of Alcohol and Drug Abuse Patient Records regulations: The Federal rules restrict any use of the information to criminally investigate or prosecute any alcohol or drug abuse patient.[facility] HospitalIn the event this information is protected by the Federal Confidentiality of Alcohol and Drug Abuse Patient Records regulations: The Federal rules restrict any use of the information to criminally investigate or prosecute any alcohol or drug abuse patient.[facility] HospitalIn the event this information is protected by the Federal Confidentiality of Alcohol and Drug Abuse Patient Records regulations: The Federal rules restrict any use of the information to criminally investigate or prosecute any alcohol or drug abuse patient.[facility] HospitalIn the event this information is protected by the Federal Confidentiality of Alcohol and Drug Abuse Patient Records regulations: The Federal rules restrict any use of the information to criminally investigate or prosecute any alcohol or drug abuse patient.[facility] HospitalIn the event this information is protected by the Federal Confidentiality of Alcohol and Drug Abuse Patient Records regulations: The Federal rules restrict any use of the information to criminally investigate or prosecute any alcohol or drug abuse patient.[facility] HospitalIn the event this information is protected by the Federal Confidentiality of Alcohol and Drug Abuse Patient Records regulations: The Federal rules restrict any use of the information to criminally investigate or prosecute any alcohol or drug abuse patient.[facility] HospitalIn the event this information is protected by the Federal Confidentiality of Alcohol and Drug Abuse Patient Records regulations: The Federal rules restrict any use of the information to criminally investigate or prosecute any alcohol or drug abuse patient.[facility] HospitalIn the event this information is protected by the Federal Confidentiality of Alcohol and Drug Abuse Patient Records regulations: The Federal rules restrict any use of the information to criminally investigate or prosecute any alcohol or drug abuse patient.[facility] HospitalIn the event this information is protected by the Federal Confidentiality of Alcohol and Drug Abuse Patient Records regulations: The Federal rules restrict any use of the information to criminally investigate or prosecute any alcohol or drug abuse patient.[facility] HospitalIn the event this information is protected by the Federal Confidentiality of Alcohol and Drug Abuse Patient Records regulations: The Federal rules restrict any use of the information to criminally investigate or prosecute any alcohol or drug abuse patient.[facility] HospitalIn the event this information is protected by the Federal Confidentiality of Alcohol and Drug Abuse Patient Records regulations: The Federal rules restrict any use of the information to criminally investigate or prosecute any alcohol or drug abuse patient.[facility] the event this information is protected by the Federal Confidentiality of Alcohol and Drug Abuse Patient Records regulations: The Federal rules restrict any use of the information to criminally investigate or prosecute any alcohol or drug abuse patient.[facility]In the event this information is protected by the Federal Confidentiality of Alcohol and Drug Abuse Patient Records regulations: The Federal rules restrict any use of the information to criminally investigate or prosecute any alcohol or drug abuse patient.[facility]In the event this information is protected by the Federal Confidentiality of Alcohol and Drug Abuse Patient Records regulations: The Federal rules restrict any use of the information to criminally investigate or prosecute any alcohol or drug abuse patient.[facility]In the event this information is protected by the Federal Confidentiality of Alcohol and Drug Abuse Patient Records regulations: The Federal rules restrict any use of the information to criminally investigate or prosecute any alcohol or drug abuse patient.[facility]In the event this information is protected by the Federal Confidentiality of Alcohol and Drug Abuse Patient Records regulations: The Federal rules restrict any use of the information to criminally investigate or prosecute any alcohol or drug abuse patient.[facility]In the event this information is protected by the Federal Confidentiality of Alcohol and Drug Abuse Patient Records regulations: The Federal rules restrict any use of the information to criminally investigate or prosecute any alcohol or drug abuse patient.[facility]In the event this information is protected by the Federal Confidentiality of Alcohol and Drug Abuse Patient Records regulations: The Federal rules restrict any use of the information to criminally investigate or prosecute any alcohol or drug abuse patient.[facility]In the event this information is protected by the Federal Confidentiality of Alcohol and Drug Abuse Patient Records regulations: The Federal rules restrict any use of the information to criminally investigate or prosecute any alcohol or drug abuse patient.[facility]In the event this information is protected by the Federal Confidentiality of Alcohol and Drug Abuse Patient Records regulations: The Federal rules restrict any use of the information to criminally investigate or prosecute any alcohol or drug abuse patient.[facility]In the event this information is protected by the Federal Confidentiality of Alcohol and Drug Abuse Patient Records regulations: The Federal rules restrict any use of the information to criminally investigate or prosecute any alcohol or drug abuse patient.[facility]In the event this information is protected by the Federal Confidentiality of Alcohol and Drug Abuse Patient Records regulations: The Federal rules restrict any use of the information to criminally investigate or prosecute any alcohol or drug abuse patient.[facility] HospitalIn the event this information is protected by the Federal Confidentiality of Alcohol and Drug Abuse Patient Records regulations: The Federal rules restrict any use of the information to criminally investigate or prosecute any alcohol or drug abuse patient.[facility] [facility] the event this information is protected by the Federal Confidentiality of Alcohol and Drug Abuse Patient Records regulations: The Federal rules restrict any use of the information to criminally investigate or prosecute any alcohol or drug abuse patient.[facility] the event this information is protected by the Federal Confidentiality of Alcohol and Drug Abuse Patient Records regulations: The Federal rules restrict any use of the information to criminally investigate or prosecute any alcohol or drug abuse patient.[facility] Care Teams (unrecognized sec tion and content) Supervisor Engine Repair Relationship Specialty Start Date End Date Juan Spann MD [address] [place] [address] PCP - General Family Practice 10/18/14 Supervisor Engine Repair Relationship Specialty Start Date End Date Juan Spann MD [address] [place] [address] PCP - General Family Practice 10/18/14 Supervisor Engine Repair Relationship Specialty Start Date End Date Juan Spann MD [address] [place] [address] PCP - General Family Practice 10/18/14 Supervisor Engine Repair Relationship Specialty Start Date End Date Juan Spann MD [address] [place] [address] PCP - General Family Practice 10/18/14 Supervisor Engine Repair Relationship Specialty Start Date End Date Juan Spann MD [address] [place] [address] PCP - General Family Practice 10/18/14 Supervisor Engine Repair Relationship Specialty Start Date End Date Juan Spann MD [address] [facility] [place] [address] PCP - General Family Practice 10/18/14 Supervisor Engine Repair Relationship Specialty Start Date End Date Juan Spann MD [address] [facility] [place] [address] PCP - General Family Practice 10/18/14 Supervisor Engine Repair Relationship Specialty Start Date End Date Juan Spann MD [address] [facility] [place] [address] PCP - General Family Medicine 10/18/14 Supervisor Engine Repair Relationship Specialty Start Date End Date Juan Spann MD [facility] [place] [address] PCP - General Family Medicine 10/18/14 Supervisor Engine Repair Relationship Specialty Start Date End Date Juan Spann MD [address] [place] [address] [place] [address] PCP - General Family Medicine 10/18/14 Supervisor Engine Repair Relationship Specialty Start Date End Date Juan Spann MD [address] [place] [address] PCP - General Family Medicine 10/18/14 Supervisor Engine Repair Relationship Specialty Start Date End Date Juan Spann MD [address] [place] [address] PCP - General Family Medicine 10/18/14 Supervisor Engine Repair Relationship Specialty Start Date End Date Juan Spann MD [facility] [place] [address] PCP - General Family Medicine 10/18/14 Supervisor Engine Repair Relationship Specialty Start Date End Date Juan Spann MD [facility] [place] [address] PCP - General Family Medicine 10/18/14 Supervisor Engine Repair Relationship Specialty Start Date End Date Juan Spann MD [facility] [place] [address] PCP - General Family Medicine 10/18/14 Supervisor Engine Repair Relationship Specialty Start Date End Date Juan Spann MD [facility] [place] [address] PCP - General Family Medicine 10/18/14 Supervisor Engine Repair Relationship Specialty Start Date End Date Juan Spann MD [facility] [place] [address] PCP - General Family Medicine 10/18/14 Supervisor Engine Repair Relationship Specialty Start Date End Date Juan Spann MD [facility] [place] [address] PCP - General Family Medicine 10/18/14 Supervisor Engine Repair Relationship Specialty Start Date End Date Juan Spann MD [facility] [place] [address] PCP - General Family Medicine 10/18/14 Supervisor Engine Repair Relationship Specialty Start Date End Date Juan Spann MD [address] [place] [address] PCP - General Family Medicine 10/18/14 Supervisor Engine Repair Relationship Specialty Start Date End Date Juan Spann MD [address] [place] [address] PCP - General Family Medicine 10/18/14 Supervisor Engine Repair Relationship Specialty Start Date End Date Juan Spann MD [address] [place] [address] PCP - General Family Medicine 10/18/14 Supervisor Engine Repair Relationship Specialty Start Date End Date Juan Spann MD [address] [place] [address] PCP - General Family Medicine 10/18/14 Supervisor Engine Repair Relationship Specialty Start Date End Date Juan Spann MD [address] [place] [address] PCP - General Family Medicine 10/18/14 Supervisor Engine Repair Relationship Specialty Start Date End Date Juan Spann MD [address] [place] [address] PCP - General Family Medicine 10/18/14 Supervisor Engine Repair Relationship Specialty Start Date End Date Juan Spann MD [address] [place] [address] PCP - General Family Medicine 10/18/14 Supervisor Engine Repair Relationship Specialty Start Date End Date Juan Spann MD [address] [place] [address] PCP - General Family Medicine 10/18/14 Supervisor Engine Repair Relationship Specialty Start Date End Date Juan Spann MD [address] [place] [address] PCP - General Family Medicine 10/18/14 Supervisor Engine Repair Relationship Specialty Start Date End Date Juan Spann MD [address] [place] [address] PCP - General Family Medicine 10/18/14 Supervisor Engine Repair Relationship Specialty Start Date End Date Juan Spann MD [address] [place] [address] PCP - General Family Medicine 10/18/14 Supervisor Engine Repair Relationship Specialty Start Date End Date Juan Spann MD [address] [place] [address] PCP - General Family Medicine 10/18/14 Supervisor Engine Repair Relationship Specialty Start Date End Date Juan Spann MD [address] [place] [address] PCP - General Family Medicine 10/18/14 Supervisor Engine Repair Relationship Specialty Start Date End Date Juan Spann MD [address] [place] [address] PCP - General Family Medicine 10/18/14 Supervisor Engine Repair Relationship Specialty Start Date End Date Juan Spann MD [address] [place] [address] PCP - General Family Medicine 10/18/14 Supervisor Engine Repair Relationship Specialty Start Date End Date Juan Spann MD [address] [place] [address] PCP - General Family Medicine 10/18/14 Supervisor Engine Repair Relationship Specialty Start Date End Date Juan Spann MD [address] [place] [address] PCP - General Family Medicine 10/18/14 Supervisor Engine Repair Relationship Specialty Start Date End Date Juan Spann MD [address] [place] [address] PCP - General Family Medicine 10/18/14 Supervisor Engine Repair Relationship Specialty Start Date End Date Juan Spann MD [address] [place] [address] PCP - General Family Medicine 10/18/14 Supervisor Engine Repair Relationship Specialty Start Date End Date Juan Spann MD [address] [place] [address] PCP - General Family Medicine 10/18/14 Supervisor Engine Repair Relationship Specialty Start Date End Date Juan Spann MD [address] [place] [address] PCP - General Family Medicine 10/18/14 Supervisor Engine Repair Relationship Specialty Start Date End Date Juan Spann MD [address] [place] [address] PCP - General Family Medicine 10/18/14 Supervisor Engine Repair Relationship Specialty Start Date End Date Juan Spann MD [address] [place] [address] PCP - General Family Medicine 10/18/14 Supervisor Engine Repair Relationship Specialty Start Date End Date Juan Spann MD [address] [place] [address] PCP - General Family Medicine 10/18/14 Supervisor Engine Repair Relationship Specialty Start Date End Date Juan Spann MD [address] [place] [address] PCP - General Family Medicine 10/18/14 Supervisor Engine Repair Relationship Specialty Start Date End Date Juan Spann MD [address] [place] [address] PCP - General Family Medicine 10/18/14 Supervisor Engine Repair Relationship Specialty Start Date End Date Juan Spann MD [address] [place] [address] PCP - General Family Medicine 10/18/14 Supervisor Engine Repair Relationship Specialty Start Date End Date Juan Spann MD [address] [place] [address] PCP - General Family Medicine 10/18/14 Supervisor Engine Repair Relationship Specialty Start Date End Date Juan Spann MD [address] [place] [address] PCP - General Family Medicine 10/18/14 Supervisor Engine Repair Relationship Specialty Start Date End Date Juan Spann MD [address] [place] [address] PCP - General Family Medicine 10/18/14 Supervisor Engine Repair Relationship Specialty Start Date End Date Juan Spann MD [address] [place] [address] PCP - General Family Medicine 10/18/14 Supervisor Engine Repair Relationship Specialty Start Date End Date Juan Spann MD [address] [place] [address] PCP - General Family Medicine 10/18/14 Supervisor Engine Repair Relationship Specialty Start Date End Date Juan Spann MD [address] [place] [address] PCP - General Family Medicine 10/18/14 Supervisor Engine Repair Relationship Specialty Start Date End Date Juan Spann MD [address] [place] [address] PCP - General Family Medicine 10/18/14 Zo Metcalf, RN [address] [place] [address] Primary Care Adjunct History Instructor 11/17/23 Supervisor Engine Repair Relationship Specialty Start Date End Date Juan Spann MD [address] [place] [address] PCP - General Family Medicine 10/18/14 Zo Metcalf, AUTUMN [address] [place] [address] Primary Care Adjunct History Instructor 11/17/23 Supervisor Engine Repair Relationship Specialty Start Date End Date Juan Spann MD [address] [place] [address] PCP - General Family Medicine 10/18/14 Supervisor Engine Repair Relationship Specialty Start Date End Date Juan Spann MD [address] [place] [address] PCP - General Family Medicine 10/18/14 Zo Metcalf, AUTUMN [address] [place] [address] Primary Care Adjunct History Instructor 11/17/23 Supervisor Engine Repair Relationship Specialty Start Date End Date Juan Spann MD [address] [place] [address] PCP - General Family Medicine 10/18/14 Zo Metcalf, AUTUMN [address] [facility] [place] [address] Primary Care Adjunct History Instructor 11/17/23 Supervisor Engine Repair Relationship Specialty Start Date End Date Juan Spann MD [address] [place] [address] PCP - General Family Medicine 10/18/14 Supervisor Engine Repair Relationship Specialty Start Date End Date Juan Spann MD [address] [place] [address] PCP - General Family Medicine 10/18/14 Zo Metcalf, AUTUMN [address] [place] [address] Primary Care Adjunct History Instructor 11/17/23 Supervisor Engine Repair Relationship Specialty Start Date End Date Juan Spann MD [address] [place] [address] PCP - General Family Medicine 10/18/14 Zo Metcalf, AUTUMN [address] [facility] [place] [address] Primary Care Adjunct History Instructor 11/17/23 Supervisor Engine Repair Relationship Specialty Start Date End Date Juan Spann MD [address] [place] [address] PCP - General Family Medicine 10/18/14 Zo Metcalf, AUTUMN [address] [place] [address] Primary Care Adjunct History Instructor 11/17/23 Supervisor Engine Repair Relationship Specialty Start Date End Date Juan Spann MD [address] [place] [address] PCP - General Family Medicine 10/18/14 Zo Metcalf, AUTUMN [address] [place] [address] Primary Care Adjunct History Instructor 11/17/23 Supervisor Engine Repair Relationship Specialty Start Date End Date Juan Spann MD [address] [place] [address] PCP - General Family Medicine 10/18/14 Zo Metcalf RN [address] [place] [address] Primary Care Adjunct History Instructor 11/17/23 Supervisor Engine Repair Relationship Specialty Start Date End Date Juan Spann MD [address] [place] [address] PCP - General Family Medicine 10/18/14 Supervisor Engine Repair Relationship Specialty Start Date End Date Juan Spann MD [address] [place] [address] PCP - General Family Medicine 10/18/14 Supervisor Engine Repair Relationship Specialty Start Date End Date Juan Spann MD [address] [place] [address] PCP - General Family Medicine 10/18/14 Supervisor Engine Repair Relationship Specialty Start Date End Date Juan Spann MD [address] [place] [address] PCP - General Family Medicine 10/18/14 Supervisor Engine Repair Relationship Specialty Start Date End Date Juan Spann MD [address] [place] [address] PCP - General Family Medicine 10/18/14 Supervisor Engine Repair Relationship Specialty Start Date End Date Juan Spann MD [address] [place] [address] PCP - General Family Medicine 10/18/14 Supervisor Engine Repair Relationship Specialty Start Date End Date Juan Spann MD [address] [place] [address] PCP - General Family Medicine 10/18/14 Supervisor Engine Repair Relationship Specialty Start Date End Date Juan Spann MD [address] [place] [address] PCP - General Family Medicine 10/18/14 Sujatha Saldana APRN.[employer] [address] [place] [address] Systems Integration Engineer Family Medicine 02/14/24 Destini Lay PA-C [address] [place] [address] Systems Integration Engineer Family Medicine 02/14/24 Supervisor Engine Repair Relationship Specialty Start Date End Date Juan Spann MD [address] [place] [address] PCP - General Family Medicine 10/18/14 Sujatha Saldana APRN.[employer]CH[employer] [address] [place] [address] Systems Integration Engineer Family Medicine 02/14/24 Destini Lay PA-C [address] [place] [address] Systems Integration Engineer Family Medicine 02/14/24 Supervisor Engine Repair Relationship Specialty Start Date End Date Juan Spann MD [address] [place] [address] PCP - General Family Medicine 10/18/14 Sujatha Saldana, ERIN.[employer]CH[employer] [address] [place] [address] Systems Integration Engineer Family Medicine 02/14/24 Destini Lay PA-C [address] [place] [address] Systems Integration Engineer Family Medicine 02/14/24 Supervisor Engine Repair Relationship Specialty Start Date End Date Juan Spann MD [address] [place] [address] PCP - General Family Medicine 10/18/14 Sujatha Saldana, MANAGER MOBILITY.[employer] [address] [place] [address] Systems Integration Engineer Family Medicine 02/14/24 Destini Lay PA-C [address] [place] [address] Systems Integration Engineer Family Medicine 02/14/24 Supervisor Engine Repair Relationship Specialty Start Date End Date Juan Spann MD [address] [place] [address] PCP - General Family Medicine 10/18/14 Sujatha Saldana, MANAGER MOBILITY.[employer] [address] [place] [address] Systems Integration Engineer Family Medicine 02/14/24 eDstini Lay PA-C [address] [place] [address] Systems Integration Engineer Family Medicine 02/14/24 Supervisor Engine Repair Relationship Specialty Start Date End Date Juan Spann MD [address] [place] [address] PCP - General Family Medicine 10/18/14 Sujatha Saldana, ERIN.[employer]AFTER MECHANICAL [address] [place] [address] Systems Integration Engineer Family Medicine 02/14/24 Destini Lay PA-C [address] [place] [address] Systems Integration [facility] 02/14/24 Supervisor Engine Repair Relationship Specialty Start Date End Date Juan Spann MD [address] [place] [address] PCP - General Family Medicine 10/18/14 Sujatha Saldana, MANAGER MOBILITY.[employer]CH[employer] [address] [place] [address] Systems Integration Engineer Family Medicine 02/14/24 Destini Lay PA-C [address] [place] [address] Systems Integration Engineer Family Medicine 02/14/24 Supervisor Engine Repair Relationship Specialty Start Date End Date Juan Spann MD [address] [place] [address] PCP - General Family Medicine 10/18/14 Sujatha Saldana, ERIN.[employer]AFTER MECHANICAL [address] [place] [address] Systems Integration Engineer Family Medicine 02/14/24 Destini Lay PA-C [address] [place] [address] Systems Integration Engineer Family [facility] 02/14/24 Supervisor Engine Repair Relationship Specialty Start Date End Date Juan Spann MD [address] [place] [address] PCP - General Family Medicine 10/18/14 Sujatha Saldana, ERIN.[employer]AFTER MECHANICAL [address] [place] [address] Systems Integration Engineer Family Medicine 02/14/24 Destini Lay PA-C [address] [place] [address] Systems Integration Engineer Family [facility] 02/14/24 Supervisor Engine Repair Relationship Specialty Start Date End Date Juan Spann MD [address] [place] [address] PCP - General Family Medicine 10/18/14 Sujatha Saldana, ERIN.[employer]AFTER MECHANICAL [address] [place] [address] Systems Integration Engineer Family Medicine 02/14/24 Destini Lay PA-C [address] [place] [address] Systems Integration Engineer Family [facility] 02/14/24 Supervisor Engine Repair Relationship Specialty Start Date End Date Juan Spann MD [address] [place] [address] PCP - General Family Medicine 10/18/14 Sujatha Saldana, MANAGER MOBILITY.[employer]CH[employer] [address] [place] [address] Systems Integration Engineer Family [facility] 02/14/24 Destini Lay PA-C [address] [place] [address] [facility] 02/14/24 Supervisor Engine Repair Relationship Specialty Start Date End Date Juan Spann MD [address] [place] [address] PCP - General Family Medicine 10/18/14 Sujatha Saldana APRN.[employer] [address] [place] [address] [facility] 02/14/24 Destini Lay PA-C [address] [place] [address] [facility] 02/14/24 Supervisor Engine Repair Relationship Specialty Start Date End Date Juan Spann MD [address] [place] [address] PCP - General Family Medicine 10/18/14 Sujatha Saldana APRN.[employer]CH[employer] [address] [place] [address] [facility] Medicine 02/14/24 Destini Lay PA-C [address] [place] [address] [facility] 02/14/24 Supervisor Engine Repair Relationship Specialty Start Date End Date Juan Spann MD [address] [place] [address] PCP - General Family Medicine 10/18/14 Sujatha Saldana APRN.[employer] [address] [place] [address] Systems Integration Engineer Family Medicine 02/14/24 Destini Lay PA-C [address] [place] [address] Systems Integration Engineer Family Medicine 02/14/24 Supervisor Engine Repair Relationship Specialty Start Date End Date Juan Spann MD [address] [place] [address] PCP - General Family Medicine 10/18/14 Sujatha Saldana APRN.[employer]AF[employer] [address] [place] [address] Systems Integration Engineer Family Medicine 02/14/24 Destini Lay PA-C [address] [place] [address] Systems Integration Engineer Family Medicine 02/14/24 Supervisor Engine Repair Relationship Specialty Start Date End Date Juan Spann MD [address] [place] [address] PCP - General Family Medicine 06/14/24 Sujatha Saldana APRN.[employer] [address] [place] [address] Systems Integration Engineer Family Medicine 02/14/24 Destini Lay PA-C [address] [place] [address] Systems Integration Engineer Family Medicine 02/14/24 Supervisor Engine Repair Relationship Specialty Start Date End Date Juan Spann MD [address] [place] [address] [address] [place], [place] [id number] PCP - General Family Medicine 06/16/24 Supervisor Engine Repair Relationship Specialty Start Date End Date Juan Spann MD [address] [place] [address] PCP - General Family Medicine 06/16/24 Supervisor Engine Repair Relationship Specialty Start Date End Date Juan Spann MD [address] [place] [address] PCP - General Family Medicine 06/14/24 Sujatha Saldana APRN.[employer]AF[employer] [address] [place] [address] Systems Integration Engineer Family Medicine 02/14/24 Destini Lay PA-C [address] [place] [address] Systems Integration Engineer Family Medicine 02/14/24 Supervisor Engine Repair Relationship Specialty Start Date End Date Juan Spann MD [address] [facility] [address] [place] [address] PCP - General Family Medicine 06/16/24 Supervisor Engine Repair Relationship Specialty Start Date End Date Juan Spann MD [address] [place] [address] PCP - General Family Medicine 06/14/24 Sujatha Saldana APRN.DRAFTER MECHANICAL [facility] [place] [address] Systems Integration Engineer Family Medicine 08/09/24 Destini Lay PA-C [address] [place] [address] [facility] 08/09/24 Supervisor Engine Repair Relationship Specialty Start Date End Date Juan Spann MD [address] [place] [address] PCP - General Family Medicine 06/14/24 Sujatha Saldana, MANAGER MOBILITY.[employer]AF[employer]CH[employer] [address] [place] [address] [facility] 08/09/24 Destini Lay PA-C [address] [place] [address] [facility] 08/09/24 Supervisor Engine Repair Relationship Specialty Start Date End Date Juan Spann MD [address] [place] [address] PCP - General Family Medicine 06/14/24 Sujatha Saldana, MANAGER MOBILITY.[employer]AFTER [employer]CHAN[employer] [address] [place] [address] [facility] 08/09/24 Destini Lay PA-C [address] [place], [place] [address] [facility] 08/09/24 Team Status: Active Member Role/Relationship Status Dates Dr. Juan Spann MD Primary care physician Active Team Status: Inactive Member Role/Relationship Status Dates Dr. Juan Spann MD Primary care physician Active Start: December 21, 2024 End: December 22, 2024 Dr. Mabel Downing [facility] Active Start: December 21, 2024 End: December 22, 2024 Dr. Rachael Crook MD Admitting physician Active Start: December 21, 2024 End: December 22, 2024 Dr. Rachael Crook MD Nurse Practitioner Active Start: December 21, 2024 End: December 22, 2024 Dr. Chelsea Carbone DO Attending physician Active Start: December 21, 2024 End: December 22, 2024 Team Status: Active Member Role/Relationship Status Dates Dr. Juan Spann MD Primary care physician Active Start: December 22, 2024 Dr. Familia Ng MD Attending physician Active Start: December 22, 2024 Team Status: Active Member Role/Relationship Status Dates Dr. Juan Spann MD Primary care physician Active Start: December 22, 2024 Dr. Mabel Downing MD Emergency Departmen t Physician Active Start: December 22, 2024 Dr. Rachael Crook MD Admitting physician Active Start: December 22, 2024 Dr. Rachael Crook MD Nurse Practitioner Active Start: December 22, 2024 Dr. Chelsea Carbone DO Attending physician Active Start: December 22, 2024 Dr. Chelsea Carbone DO Nurse Practitioner Active Start: December 22, 2024 Inactive Administered Medications - up to 3 most recent administrations Administered Medications (un recognized section and content) Medication Order MAR Action Action Date Dose Rate Site 0.9% NaCl 10 mL flush 10 mL, OTHER, ONCE, 1 dose, On Fri04/30/23 at 1530 Given by [facility] 04/30/2023 3:30 PM EST 10 mL dexAMETHasone sodium phosphate 10 mg injection (DECADRON) 10 mg, OTHER, ONCE, 1 dose, On Fri04/30/23 at 1530 Given by [facility] 04/30/2023 3:30 PM EST 15 mg iohexol 300 mg injection (OMNIPAQUE 300) 300 mg, OTHER, ONCE, 1 dose, On Fri04/30/23 at 1530 Given by [facility] 04/30/2023 3:31 PM EST 300 mg lidocaine (PF) 10 mg/mL (1 %) 100 mg injection (XYLOCAINE) 100 mg, OTHER, ONCE, 1 dose, On Fri04/30/23 at 1530 Given by [facility] 04/30/2023 3:31 PM EST 100 mg Inactive Administered Medications - up to 3 most recent administrations Medication Order MAR Action Action Date Dose Rate Site lidocaine (PF) 10 mg/mL (1 %) 100 mg injection (XYLOCAINE) 100 mg, OTHER, ONCE, 1 dose, On Fri05/26/23 at 0900 Given by [facility] 05/26/2023 8:55 AM EDT 100 mg lidocaine (PF) 20 mg/mL (2 %) 200 mg injection (XYLOCAINE) 200 mg, OTHER, ONCE, 1 dose, On Fri05/26/23 at 0900 Given by [facility] 05/26/2023 8:56 AM EDT 200 mg methylPREDNISolone acetate 40 mg injection (DEPO-Medrol) 40 mg, OTHER, ONCE, 1 dose, On Fri05/26/23 at 0900 Given by [facility] 05/26/2023 9:12 AM EDT 40 mg INFORMATION SOURCE (unrecogn ized section and content) DATE CREATED AUTHOR 01/19/2024 [facility] DATE CREATED AUTHOR AUTHOR'S ORGANIZ ATION 05/20/2024 [facility] DATE CREATED AUTHOR AUTHOR'S ORGANIZ ATION 06/19/2024 [facility] DATE CREATED AUTHOR AUTHOR'S ORGANIZ ATION 06/24/2024 [facility] DATE CREATED AUTHOR AUTHOR'S ORGANIZ ATION 07/15/2024 [facility] DATE CREATED AUTHOR AUTHOR'S ORGANIZ ATION 01/19/2025 [facility] [facility] DATE CREATED AUTHOR AUTHOR'S ORGANIZ ATION 01/20/2025 [facility] Scheduled Active and Recently Administ ered Medications (unrecognized section and content) Medication Order 06/22/2024 06/23/2024 06/24/2024 lidocaine PF (Xylocaine) 10 mg/mL (1 %) injection 1 mg 1 mg (0.1 mL), subcutaneous, Once, On Luisa 06/24/24 at 0915, For 1 dose, Recovery (only), To be used for IV insertion ONLY 914 (Due) methocarbamol (Robaxin) injection 1,000 mg 1,000 mg, intravenous, Administer over 4 Minutes, Once, On Luisa 06/24/24 at 0915, For 1 dose, Recovery (only) 914 (Due) povidone-iodine 5 % kit kit (COMPLETED) Topical, Once, On Luisa 06/24/24 at 0700, For 1 dose, Preprocedure, Apply povidone iodine 5% to surgical area and bilateral nares (unless allergic) in pre-op the morning of surgery. 0640 (Given - Provid er: Natalie Le RN) Continuous Medication Order 06/22/2024 06/23/2024 06/24/2024 lactated Ringer's infusion 75 mL/hr, intravenous, Continuous, Starting on Luisa 06/24/24 at 0915, For 1 hour, Recovery (only) 0915 (Due) PRN Medication Order 06/22/2024 06/23/2024 06/24/2024 acetaminophen (Tylenol) tablet 650 mg 650 mg, oral, Every 4 hours PRN, pain mild (1-3), first line, If patient has not received Tylenol in past 8 hours, Starting on Luisa 06/24/24 at 0856, Recovery (only), When able to take oral medications., If ordered PRN for pain, nurse is permitted to administer this medication for higher pain scores based on patient preference? Yes albuterol 2.5 mg /3 mL (0.083 %) nebulizer solution 2.5 mg 2.5 mg, nebulization, Once as needed, wheezing, Starting on Luisa 06/24/24 at 0856, For 1 dose, Recovery (only) diphenhydrAMINE (BENADryl) injection 12.5 mg 12.5 mg, intravenous, Once as needed, itching, allergic reaction, Starting on Luisa 06/24/24 at 0856, For 1 dose, Recovery (only) droperidol (Inapsine) injection 0.625 mg 0.625 mg, intravenous, Once as needed, nausea/vomiting, second line, Starting on Luisa 06/24/24 at 0856, For 1 dose, Recovery (only), Monitor QTc while on therapy (2 lead monitoring) hydrALAZINE (Apresoline) injection 5 mg 5 mg, intravenous, Administer over 2 Minutes, Every 30 min PRN, systolic blood pressure greater than 180 mmHg and heart rate less than 60 BPM, Starting on Luisa 06/24/24 at 0856, For 2 doses, Recovery (only) HYDROmorphone (Dilaudid) injection 0.4 mg 0.4 mg, intravenous, Every 5 min PRN, pain severe (7-10), first line, Starting on Luisa 06/24/24 at 0856, Recovery (only), Max total of 4 mg regardless of dose. HYDROmorphone PF (Dilaudid) injection 0.2 mg 0.2 mg, intravenous, Every 5 min PRN, pain moderate (4-6), first line, Starting on Luisa 06/24/24 at 0856, Recovery (only), Max total of 4 mg regardless of dose. labetaloL (Normodyne,Trandate) injection 5 mg 5 mg, intravenous, Administer over 1 Minutes, Once as needed, systolic blood pressure greater than 180 mmHg, dystolic blood pressure greater than 100 mmHg and heart rate greater than 60 BPM, Starting on Luisa 06/24/24 at 0856, For 1 dose, Recovery (only) lidocaine-epinephrine (Xylocaine W/EPI) 1 %-1:100,000 injection (CANCELED) As needed, Starting on Luisa 06/24/24 at 0853, Intraprocedure 0847 (Given - Provid er: Jamey Collier MD) midazolam (Versed) injection 0.5 mg 0.5 mg, intravenous, Every 15 min PRN, anxiety, as needed for anxiety, Starting on Luisa 06/24/24 at 0856, For 2 doses, Recovery (only) ondansetron (Zofran) injection 4 mg 4 mg, intravenous, Once as needed, nausea/vomiting, first line, Starting on Luisa 06/24/24 at 0856, For 1 dose, Recovery (only), When administering via IV Push, administer over 3-5 minutes. oxyCODONE (Roxicodone) immediate release tablet 5 mg 5 mg, oral, Every 4 hours PRN, pain moderate (4-6), second line, Starting on Luisa 06/24/24 at 0856, Recovery (only), When able to take oral medications., If ordered PRN for pain, nurse is permitted to administer this medication for higher pain scores based on patient preference? Yes oxygen (O2) therapy inhalation, Continuous PRN - O2/gases, other, Starting on Luisa 06/24/24 at 0856, Recovery (only), May use simple face mask with oxygen flow as needed to keep O2 sat above 92%, Device: Nasal Cannula, Rate in liters per minute: 4 LPM, Keep O2 Sat Above: 92% vancomycin (Vancocin) 1,000 mg in sodium chloride 0.9 % 1,000 mL irrigation (CANCELED) As needed, Starting on Luisa 06/24/24 at 0839, Intraprocedure 0839 (Given - Provid er: Jamey Collier MD) FOR RECORDS PERTAINING TO PATIENTS WHO ARE OR HAVE BEEN ENROLLED IN A CHEMICAL DEPENDENCY/SUBSTANCEABUSE PROGRAM, SOME INFORMATION MAY BE OMITTED. This clinical summary was aggregated from multiple sources. Caution should be exercised in using it in the provision of clinical care. This summary normalizes information from multiple sources, and as a consequence, information in this document may materially change the coding, format and clinical context of patient data. In addition, data may be omitted in some cases. CLINICAL DECISIONS SHOULD BE BASED ON THE PRIMARY CLINICAL RECORDS. [employer] provides no warranty or guarantee of the accuracy or completeness of information in this document.
--- NOTE | 2025-02-18 22:01 | CT_ITS ---
PROCEDURE: SPINE LUMBAR WITHOUT CONTRAST 02/19/2025 REASON FOR EXAM: BACK PAIN TECHNIQUE: Procedure Code: CTSPL Modality: CT Procedure: SPINE LUMBAR WITHOUT CONTRAST Coronal and Sagittal reconstruction series were provided. One or more dose reduction techniques were used (e.g., Automated exposure control, adjustment of the mA and/or kV according to patient size, use of iterative reconstruction technique COMPARISON: none RADIATION DOSE SUMMARY: CTDI Vol 22.99 mGy DLP :785.6 mGycm FINDINGS: Evidence of L4 spinolaminectomy, L3-L4 disc spacer application and L4 & L5 spinal fixation inducing related beam hardening artifacts. Straightened lumbar lordosis denoting myospasm. 1st degree anterolisthesis of L4 over L5 and to less extent L5 over S1 with L4- L5 and L5-S1 degenerative facet arthropathy Mild L2 and L3 retrolisthesis. Mild old reduced L5 vertebral body height with no acute fractures. Normal rest of the vertebral bodies height and neural arches. No definite acute fractures could be detected. Multilevel marginal lipping, subchondral Schmorl's nodes and sclerosis of the examined vertebral end plates. Multilevel reduced discs height with vacuum phenomenon. Multilevel degenerative facet arthropathy and hypertrophied ligamenta flava with calcifications. Multilevel diffuse disc bulges with posterior osteophytes/annular calcifications, most evident opposite L2/3 and T12-L1 levels seen indenting the theca and inducing encroachment upon the neural exit foramina. Degenerative changes of the sacroiliac joints. Diffuse reduced bone density. Spinal stimulator is noted. Aortoiliac atheromatous calcifications. CT/Spine Lumbar without Contrast IMPRESSION: Post operative changes as detailed. Straightened lumbar lordosis denoting myospasm. 1st degree anterolisthesis of L4 and L5 Mild L2 and L3 retrolisthesis. Mild old reduced L5 vertebral body height with no acute fractures. Lumbar spondylosis with multilevel facet arthropathy and diffuse posterior disc bulges inducing encroachment upon the neural exit foramina. Degenerative changes of the sacroiliac joints. Diffuse reduced bone density. Reading Location: [place] [id number]
[2025-02-18 22:17] VITALS: BP 156/74; PULSE 70; RESP 12; O2SAT 98; BMI 23.9
[2025-02-18 22:25] LABS: Hematocrit 34.6 % (37-47); Hemoglobin 11.1 g/dL (12.0-15.0); Immature Granulocytes Count 0.050 X10^3/uL (0.0-0.0); Mean Corp Hgb Conc 32.1 g/dL (32-36); Mean Corpuscular Volume 91.5 fL (81-99); Mean Platelet Vol. 9.5 fl (6.2-12.0); NRBC Flagged by Analyzer 0 % (0-5); Platelet Count 288 K/mm3 (150-450); RBC Distribution Width CV 14.6 % (11.6-14.6); RBC Distribution Width SD 49.0 fl (35.1-43.9); Red Blood Count 3.78 M/mm3 (4.2-5.4); White Blood Count 13.5 K/mm3 (4.4-11.0)
[2025-02-18 22:46] LABS: CPK Total, Creatine Kinase 42 U/L (24-195)
[2025-02-18 22:48] LABS: Anion Gap 13 (5-15); BUN 18 mg/dL (4-19); BUN/Creat Ratio 22.9 RATIO (10-20); Calcium,Total 9.6 mg/dL (7.6-11.0); Carbon Dioxide 21.5 mmol/L (21.0-32.0); Chloride 103 mmol/L (98-108); Estimated Creatinine Clearance 41.40 ml/min (50-250); Glucose 134 mg/dL (70-99); Potassium 3.7 mmol/L (3.3-5.1)
--- NOTE | 2025-02-18 23:37 | EDS_ITS ---
HPI History of Present Illness Chief Complaint: Lower Extremity Injury Narrative Narrative: Chief complaint and HPI: 84-year-old female with past medical history of arthritis, chronic back pain with radiculopathy, chronic hip pain, HTN, HLD presents for evaluation of lumbar back and bilateral lower extremity pain. Patient states she has a history of arthritis. She states that she intermittently get injections in her shoulder and hip. She has history of chronic back pain with radiculopathy and has had surgery in the past. Patient states over the past 2 days she has been having a flare of her lumbar back pain. States she also has pain in her bilateral lower extremities. She does not feel that the pain necessarily radiates to the bilateral lower extremities. She describes it as achy. She states she talked to her physician who placed her on prednisone. She states she has tried home narcotics in the past which she did not tolerate well. Patient denies any recent falls or trauma. She denies any numbness or tingling. Denies any weakness, urinary retention, stool or urinary incontinence, saddle anesthesia, fever, chills, nausea, vomiting. States she has been eating and drinking well. States she has been eating more than normal given the prednisone. States the pain makes it difficult to ambulate. Review of systems: See HPI Medications: As listed on the chart Allergies: As listed on the chart PFSH: Per chart Vital signs: As listed on the chart. Reviewed. Physical exam: Gen: A&O x3, NAD Head: Normocephalic, atraumatic Eyes: No sclera icterus, conjunctiva clear ENT: Moist mucous membranes Neck: Trachea midline, full range of motion, nontender CV: RRR, no murmurs, no peripheral edema Resp: Lungs CTA BL, no w/r/c GI: Abd soft, non-distended, non-tender, no r/r/g Musc: Moves all extremities, no deformity, strength +5/5 in all extremities, patient has diffuse tenderness to palpation of the bilateral lower extremities everywhere you touch her in her muscles, sensation intact, DP/PT pulses +2 bilaterally, bilateral lower extremities without swelling/erythema/warmth, no saddle paresthesias, no midline spinal tenderness, no bony step-offs, mild tenderness to palpation of the bilateral paraspinal musculature of the lumbar spine Skin: Warm, dry Neuro: Alert, oriented, grossly intact Psych: Cooperative, appropriate mood and affect PFSH [facility] Medical History Syncope Insomnia Carotid artery stenosis History of spinal stenosis Chronic anemia Elevated d-dimer HLD (hyperlipidemia) HTN (hypertension) Back pain with radiculopathy Anxiety and depression RLS (restless legs syndrome) BPPV (benign paroxysmal positional vertigo) Home Medications ?Medication ?Instructions ?Recorded ?Last Taken ?Type aspirin 81 mg chewable tablet 81 mg PO DAILY@0800 hear t health 02/26/13 12/21/24 History calcium 600 mg (as 600 mg PO DINNER supplement 02/26/13 12/21/24 History carbonate)-vitamin D3 20 mcg (800 unit) tablet pravastatin 20 mg tablet 20 mg PO QHS cholesterol 12/20/24 History cholecalciferol (vitamin D3) 25 25 mcg PO DAILY 12/21/24 History mcg (1,000 unit) capsule magnesium 200 mg tablet 400 mg PO DAILY 12/21/24 History ropinirole 4 mg tablet 4 mg PO QHS 12/21/24 5 History potassium chloride 20 mEq 20 meq PO QDAY 01/18/25 Unkn own History tablet,extended release (K-Tab) Allergy/AdvReac Type Severity Reaction Status Date / Time Sulfa (Sulfonamide Allergy Swelling Verified 02/18/25 20:55 Antibiotics) acetaminophen (From Vicodin) AdvReac Vomiting Verified 02/18/25 20:55 hydrocodone bitartrate (From AdvReac Vomiting Verified 02/18/25 20:55 Vicodin) promethazine HCl (From AdvReac Vomiting Verified 02/18/25 20:55 Phenergan) Family History Mother Heart disease Hypertension Thyroid disorder Father Heart disease Hypertension CVA (cerebral vascular accident) Grandmother CAD (coronary artery disease) Myocardial infarction Daughter Diabetes Surgical History Spinal cord stimulator status History of surgery History of bunionectomy H/O melanoma excision History of tonsillectomy History of colonoscopy H/O abdominal surgery Previous back surgery S/P cholecystectomy Social History household members: spouse Smoking Status: Never smoker alcohol intake: never substance use type: does not use EXAM Physical Exam Const Vital Signs: 02/18/25 20:52 02/18/25 22:17 Temperature 98.2 F Temperature Source Temporal Pulse Rate 87 70 Respiratory Rate 18 12 Blood Pressure 171/90 H 156/74 H Blood Pressure Mean 117 101 Pulse Ox 99 98 Oxygen Delivery Method Room Air Room Air MDM MDM MDM Narrative Medical decision making narrative: 84-year-old female with past medical history of arthritis, chronic back pain with radiculopathy, chronic hip pain, HTN, HLD presents for evaluation of lumbar back and bilateral lower extremity pain. Patient states she has a history of a rthritis. She states that she intermittently get injections in her shoulder and hip. She has history of chronic back pain with radiculopathy and has had surgery in the past. Patient states over the past 2 days she has been having a flare of her lumbar back pain. States she also has pain in her bilateral lower extremities. She does not feel that the pain necessarily radiates to the bilateral lower extremities. She describes it as achy. She states she talked to her physician who placed her on prednisone. Differential diagnosis includes but is not limited to myofascial spasm, electrolyte abnormality, arthritis, suspect less likely rhabdomyolysis or occult fracture. Patient denies any trauma or injury. There is no neurologic findings to suggest an acute cauda equina syndrome or any acute radiculopathy. Will obtain CT of the lumbar back to assess for occult fracture. Will obtain basic labs including CPK. Patient given morphine and Zofran for pain. CBC with mild leukocytosis of 13.5. Patient states she just recently got over a URI. This could be viral however rule out on UA to rule out UTI. Patient has baseline anemia. BMP unremarkable. CPK unremarkable. Patient was unable to ambulate to the restroom therefore urine was obtained via catheter. Negative for UTI but positive for blood. CT of the lumbar spine shows chronic changes with previous surgery. She has stra ightened lumbar lordosis denoting mild spasm. No fracture. On reevaluation, patient states her pain is improved. I did try to ambulate her with a walker. She was unable to do so. Patient will warrant PT/OT with rehab placement. Patient confirmed understand the plan. I spoke with Dr. Costa to accepted admission for observation. Impression: 1. Acute on chronic lumbar back pain 2. Bilateral lower extremity pain Lab Data Labs: Laboratory Results - last 24 hr 02/18/25 02/18/25 22:15 23:30 WBC 13.5 H RBC 3.78 L Hgb 11.1 L Hct 34.6 L MCV 91.5 MCH 29.4 MCHC 32.1 RDW Std Deviation 49.0 H RDW Coeff of Bailee 14.6 Plt Count 288 MPV 9.5 Immature Gran % (Auto) 0.400 Neut % (Auto) 82.5 H Lymph % (Auto) 12.5 L [place] % (Auto) 4.5 Eos % (Auto) 0.0 Baso % (Auto) 0.1 Absolute Neuts (auto) 11.1 H Absolute Lymphs (auto) 1.69 Nucleated RBC % 0 Sodium 138 Potassium 3.7 Chloride 103 Carbon Dioxide 21.5 Anion Gap 13 BUN 18 Creatinine 0.77 Estim Creat Clear Calc 41.40 L Est GFR (MDRD) Non-Af 76 BUN/Creatinine Ratio 22.9 H Glucose 134 H Calcium 9.6 Total Creatine Kinase 42 Urine Color Yellow Urine Clarity Clear Urine pH 7.0 Ur Specific [place] 1.010 Urine Protein 100 H Urine Glucose (UA) Normal Urine Ketones Negative Urine Occult Blood 50 H Urine Nitrite Negative Urine Bilirubin Negative Urine Urobilinogen Normal Ur Leukocyte Esterase Negative Radiography Diagnostic Testing: Clinical Impression(s) from Imaging Studies Lumbar Spine CT 02/18/25 22:01 IMPRESSION: Post operative changes as detailed. Straightened lumbar lordosis denoting myospasm. 1st degree anterolisthesis of L4 and L5 Mild L2 and L3 retrolisthesis. Mild old reduced L5 vertebral body height with no acute fractures. Lumbar spondylosis with multilevel facet arthropathy and diffuse posterior disc bulges inducing encroachment upon the neural exit foramina. Degenerative changes of the sacroiliac joints. Diffuse reduced bone density. Reading Location[facility] Discharge Plan Triage Chief Complaint: Lower Extremity Injury ED Provider: Andrea Currie Dx/Rx/DC Orders Prescriptions: No Action potassium chloride [K-Tab] 20 mEq tablet extended release 20 meq PO QDAY aspirin 81 MG tablet,chewable 81 mg PO DAILY@0800 calcium carbonate-vitamin D3 1 EACH tablet 600 mg PO DINNER pravastatin 20 MG tablet 20 mg PO QHS ropinirole 4 mg tablet 4 mg PO QHS cholecalciferol (vitamin D3) 25 mcg (1,000 unit) capsule 25 mcg PO DAILY magnesium 200 mg tablet 400 mg PO DAILY Primary Care Provider: Juan Hassan Referrals: Juan Hassan MD [Primary Care Provider, Family Practice] Print Language: Iranian
[2025-02-18 23:39] LABS: Mucous, Urine 0 SEEN /hpf (<or=2+); Red Blood Cells-Urine 0 SEEN /hpf (0-5); Squamous Epithelial Cells - UA 0 SEEN /hpf (5-10)
[2025-02-18 23:41] LABS: Color, Urine Yellow (Yellow); Glucose, Dipstick Normal (Normal); Ketone-Dipstick Negative (Negative); Leukocyte Esterase-Dipstick Negative /ul (Negative); Nitrite-Dipstick Negative (Negative); Occult Blood-Urine 50 /ul (Negative); Protein-Dipstick 100 mg/dl (Negative); Specific Gravity, Urine 1.010 (1.002-1.030); Urine Bilirubin Dipstick Negative (Negative)
--- NOTE | 2025-02-18 23:56 | PCM.HP.STD ---
HPI - General General Date of Admission: 02/18/25 Date of Service: 02/18/25 Chief Complaint: Intractable back pain, BL radiculopathy HPI Narrative The patient is an 84 y/o F w/ PMHx: HTN, HLD, Anxiety and Depression/Chronic insomnia, RLS, BPPV, Chronic back pain following with pain management status post spinal cord stimulator placement and previous back surgery, Chronic normocytic anemia, CKD stage II per GFR trend who presents to the [facility] ED on 02/18/2025 with history of 2 to 3 days of progressively worsening lumbar back pain with some radiation to the upper thigh regions rated 10 out of 10 in severity and described as sharp stabbing, continuous with no marked improvement with rest with initiation of prednisone therapy without marked improvement prompting eventual ED evaluation. Patient has no loss of bowel or bladder and no perineal paresthesias of note. Workup in the ED included T98.2, heart rate 87, BP 171/90, respiratory rate 18, 99% on room air with most recent repeat vitals T98, heart rate 71, BP 123/63, respiratory rate 15, 99% on room air, CBC with WC of 13.5, hemoglobin 11.1, MCV 91.5, platelet 288 with left shift, BMP with BUN/creatinine 18/0.77, GFR 76, glucose 134, T CK 42, urinalysis not marked appearing with only noted protein 100, occult blood 50 with negative nitrate, negative leukocyte esterase and no marked urine WBCs although there is 2+ urine bacteria noted, urine culture is pending, CT lumbar spine with postop changes, straightened lumbar lordosis denoting mild spasm, first-degree anterolisthesis of L4 and 5, mild L2 and L3 retrolisthesis, mild old reduced L5 vertebral body height with no acute fracture, lumbar spondylosis with multilevel facet arthropathy and diffuse posterior disc bulges inducing encroachment upon the neural exit foramina, degenerative changes of the sacroiliac joints, diffuse reduced bone density. In the ED patient administered morphine 4 mg IV x 1 and Zofran 4 mg IV x 1. Patient denied any marked improvement following morphine. [facility] Medical History Syncope Insomnia Carotid artery stenosis History of spinal stenosis Chronic anemia Elevated d-dimer HLD (hyperlipidemia) HTN (hypertension) Back pain with radiculopathy Anxiety and depression RLS (restless legs syndrome) BPPV (benign paroxysmal positional vertigo) Home Medications ?Medication ?Instructions ?Recorded ?Last Taken ?Type aspirin 81 mg chewable tablet 81 mg PO DAILY@0800 heart health 02/26/13 12/21/24 History calcium 600 mg (as 600 mg PO DINNER supplement 02/26/13 12/21/24 History carbonate)-vitamin D3 20 mcg (800 unit) tablet pravastatin 20 mg tablet 20 mg PO QHS cholesterol 12/05/19 12/20/24 History cholecalciferol (vitamin D3) 25 25 mcg PO DAILY 12/21/24 12/21/24 History mcg (1,000 unit) capsule magnesium 200 mg tablet 400 mg PO DAILY 12/21/24 12/21/24 History ropinirole 4 mg tablet 4 mg PO QHS 12/21/24 12/20/24 History potassium chloride 20 mEq 20 meq PO QDAY 01/18/25 Unknown History tablet,extended release (K-Tab) spironolactone 25 mg tablet 25 mg PO DAILY 02/19/25 Unknown History Allergy/AdvReac Type Severity Reaction Status Date / Time Sulfa (Sulfonamide Allergy Swelling Verified 02/18/25 20:55 Antibiotics) acetaminophen (From Vicodin) AdvReac Vomiting Verified 02/18/25 20:55 hydrocodone bitartrate (From AdvReac Vomiting Verified 02/18/25 20:55 Vicodin) promethazine HCl (From AdvReac Vomiting Verified 02/18/25 20:55 Phenergan) Family History Mother Heart disease Hypertension Thyroid disorder Father Heart disease Hypertension CVA (cerebral vascular accident) Grandmother CAD (coronary artery disease) Myocardial infarction Daughter Diabetes Surgical History Spinal cord stimulator status History of surgery History of bunionectomy H/O melanoma excision History of tonsillectomy History of colonoscopy H/O abdominal surgery Previous back surgery S/P cholecystectomy Social History household members: spouse Smoking Status: Never smoker alcohol intake: never substance use type: does not use ROS ROS Narrative Admission Review of Systems: CONSTITUTIONAL: No weight loss, fever, chills, + weakness or fatigue. HEENT: Eyes: No visual loss, blurred vision, double vision or yellow sclerae. Ears, Nose, Throat: No hearing loss, sneezing, congestion, runny nose or sore throat. SKIN: No rash or itching, lesions, wounds. CARDIOVASCULAR: No chest pain, chest pressure or chest discomfort, palpitations, edema, orthopnea, syncopal events. RESPIRATORY: No shortness of breath, cough or sputum, wheezing, hemoptysis. GASTROINTESTINAL: No anorexia, nausea, vomiting or diarrhea, abdominal pain, melena, BRBPR. GENITOURINARY: No dysuria, frequency, urgency or retention. NEUROLOGICAL: + Intractable lumbar back pain with radiculopathy. No headache, dizziness, syncope, paralysis, ataxia, focal weakness, change in bowel or bladder control, seizure. MUSCULOSKELETAL: + muscle, back pain, joint pain or stiffness. HEMATOLOGIC: + Chronic anemia, no marked history of easy bleeding/bruising. LYMPHATICS: No enlarged nodes. No history of splenectomy. PSYCHIATRIC: + History of anxiety and depression/insomnia. ENDOCRINOLOGIC: No reports of sweating, cold or heat intolerance. No polyuria or polydipsia. ALLERGIES: No history of asthma, hives, eczema or rhinitis. Vital Signs Vital Signs Vital Signs: 02/18/25 20:52 02/18/25 22:17 Temperature 98.2 F Temperature Source Temporal Pulse Rate 87 70 Respiratory Rate 18 12 Blood Pressure 171/90 H 156/74 H Blood Pressure Mean 117 101 Pulse Ox 99 98 Oxygen Delivery Method Room Air Room Air Weight Weight: 130 lb 11.746 oz Body Mass Index (BMI) 23.9 Physical Exam Narrative Physical Examination: General: Awake, alert, oriented x 3 and cooperative, seated upright in the ED bed, reporting her pain is sharp, constant, 10 out of 10 although does not appear severely uncomfortable. Skin: Normal color, normal turgor, no icterus, no cyanosis aside from occasional stage ecchymoses, abrasion. HEENT: AT/NC, EOMI, PERRLA, mildly dry MM, no carotid bruits or JVD noted. Lungs: Mildly diminished, greater bases, appropriate effort, no rales, ronchi or wheezing. Heart: Regular rate and rhythm; no gallop, rub audible. Abdomen: Soft, NTTP, ND, mildly hyperactive BS, no markedly appreciated HSM. Extremities: No cyanosis, no clubbing, pedal/ankle nonpitting likely chronic edema, discomfort to palpation of the lumbar spine paraspinous region, no spinal specific step off or discomfort to the spine particularly itself. Neurological: Patient awake, alert, oriented as noted, cognitive function intact; pupils equally reactive to light and accommodation, cranial nerves grossly normal, moving all 4 extremities although not markedly active given discomfort to the lumbar spine, no focal deficits, strength moderately to severely globally decreased secondary to acute presentation complaints Psychiatric: Affect appears fatigued, no acute evidence of depressive or anxiety feelings. Results Lab / Micro Data 02/18/25 22:15 02/18/25 22:15 Labs: Laboratory Results - last 24 hr 02/18/25 22:15: WBC 13.5 H, RBC 3.78 L, Hgb 11.1 L, Hct 34.6 L, MCV 91.5, MCH 29.4, MCHC 32.1, RDW Std Deviation 49.0 H, RDW Coeff of Bailee 14.6, Plt Count 288, MPV 9.5, Immature Gran % (Auto) 0.400, Neut % (Auto) 82.5 H, Lymph % (Auto) 12.5 L, Park % (Auto) 4.5, Eos % (Auto) 0.0, Baso % (Auto) 0.1, Absolute Neuts (auto) 11.1 H, Absolute Lymphs (auto) 1.69, Nucleated RBC % 0, Sodium 138, Potassium 3.7, Chloride 103, Carbon Dioxide 21.5, Anion Gap 13, BUN 18, Creatinine 0.77, Estim Creat Clear Calc 41.40 L, Est GFR (MDRD) Non-Af 76, BUN/Creatinine Ratio 22.9 H, Glucose 134 H, Calcium 9.6, Total Creatine Kinase 42 02/18/25 23:30: Urine Color Yellow, Urine Clarity Clear, Urine pH 7.0, Ur Specific [place] 1.010, Urine Protein 100 H, Urine Glucose (UA) Normal, Urine Ketones Negative, Urine Occult Blood 50 H, Urine Nitrite Negative, Urine Bilirubin Negative, Urine Urobilinogen Normal, Ur Leukocyte Esterase Negative Imaging Radiology Impression Lumbar Spine CT 02/18/25 22:01 IMPRESSION: Post operative changes as detailed. Straightened lumbar lordosis denoting myospasm. 1st degree anterolisthesis of L4 and L5 Mild L2 and L3 retrolisthesis. Mild old reduced L5 vertebral body height with no acute fractures. Lumbar spondylosis with multilevel facet arthropathy and diffuse posterior disc bulges inducing encroachment upon the neural exit foramina. Degenerative changes of the sacroiliac joints. Diffuse reduced bone density. Reading Location: [place] [id number] Assessment & Plan Assessment/Plan (1) Intractable back pain: PLAN: Plan The patient is an 84 y/o F w/ PMHx: HTN, HLD, Anxiety and Depression/Chronic insomnia, RLS, BPPV, Chronic back pain following with pain management status post spinal cord stimulator placement and previous back surgery, Chronic normocytic anemia, CKD stage II per GFR trend who presents to the [facility] ED on 02/18/2025 with history of 2 to 3 days of progressively worsening lumbar back pain with some radiation to the upper thigh regions rated 10 out of 10 in severity and described as sharp stabbing, continuous with no marked improvement with rest with initiation of prednisone therapy without marked improvement prompting eventual ED evaluation. #1. Acute on Chronic Intractable Lumbar Back Pain with radiation to BL LE/Radiculopathy with notable diffuse posterior disc bulging inducing encroachment upon the neural exit foramina: Will admit to [facility], maintain on fall precautions, frequent positioning, initiate short course IV toradol, lidocaine patches, scheduled x 1 tizanidine and as needed following, low-dose gabapentin 100 mg p.o. 3 times daily, medrol dose pack, po/IV narcotic pain regimen, anti-emetics, bowel regimen. Will consult PT and OT for evaluation as well as Case management for discharge planning. Given significant findings on CT lumbar spine to be cautious will request orthospine involvement. Patient is not able to have an MRI given her spinal cord stimulator of note. #2. Hypertension: Continue home regimen including spironolactone with hold parameters as needed, PRN hydralazine. #3. Hyperlipidemia: Will continue patient home statin therapy. #4. Chronic Kidney Disease Stage II per GFR trending: Admission BUN/Cr 18/0.77, GFR 76, baseline renal function 0.7-0.9, repeat BMP in AM. #5. Chronic normocytic anemia: Admission hemoglobin 9.1, MCV 91.5, baseline hemoglobin has vacillated however more recently 9-11, stable, continue to trend. #6. Restless leg syndrome: Will continue patient home Requip regimen. #7. DVT prophylaxis: Lovenox. #8. CODE status: Patient KELL is her who is and living will is currently. Discussed CODE status at length including difference between FULL code, DNR-CCA and DNR-CC status. Following discussions about the differences in these status, requested Full Code status. Advanced Care Planning Face to Face Time: 16 minutes. Charges/Coding Visit Charges Inpatient E&M: 41206 Init Hosp L3 Procedures Hospitalists Procedures: 88032 Advncd Care Plan 30 Min
[2025-02-19] VITALS (9 sets, daily range): BP systolic 105–179; BP diastolic 46–79; PULSE 58–78; RESP 15–17; TEMP 36.4–36.8; O2SAT 94–99; BMI 23.4
--- OUTSIDE RECORDS SUMMARY | 2025-02-19 00:23 | XMS RPT_ITS | CCD ---
Author Organization [facility] Care Team Providers Care Speech Language Specialist Name Role Phone Dorita RANDALL, Paula Johnson Unavailable Juan Spann MD Primary Care Provider Juan Spann MD Primary Care Provider [phone] Juan Spann MD Primary Care Provider Juan Spann MD Primary Care Provider Juan Spann MD Primary Care Provider Juan Spann MD Primary Care Provider [phone] Zo Metcalf RN Unavailable [phone] JUAN SPANN Primary Care Unavailable ANASH, AJ Referring Unavailable Les KHAN.Sujatha MANZO Unavailable [phone] Comment on above: Take 1 capsule [facility]. nystatin 270012 unt/ml topical cream (7 sources) Polyene Antifungal Start: 06-17-19 24 End: 07-01-19 24 nystatin (MYCOSTATIN) cream Indications: Candidiasis of skin Apply 1 application to affected area two times a day for 14 days. 30 g 1 06/17/2023 07/01/2023 Active Comment on above: Apply 1 application to affected area two times a day for 14 days. 2 ml ondansetron 2 mg/ml injection (1 source) Serotonin-3 Receptor Antagonist Start: 06-25-19 25 4 mg, intravenous, Once as needed, nausea/vomiting, [...] Start: 12-27-2024 take 1 tablet by maximiliano twice daily Start: 09-17-2023 End: 12-22-2024 take [...] 03/15/2023 Discontinued take 1 tablet by maximiliano th once daily potassium chloride CR 20 mEq ER tablet Take 1 tablet (20 mEq) by mouth once daily. Do not crush or chew. Active Comment on above: Take 1 tablet by maximiliano th twice daily. Take 1 tablet by maximiliano th two times a day. pravastatin sodium 20 mg oral tablet (20 sources) HMG-CoA Reductase Inhibitor Start: End: take 1 tablet by mouth at bedtime Comment on above: Take 1 tablet by maximiliano th daily at bedtime. predniSONE 20 mg oral tablet (1 source) Start: End: 4 take 1 tablet by mouth once daily at mealtime predniSONE (DELTASONE) 20 mg tablet Take 1 tablet by mouth once daily for 4 days. Take daily with food. 4 tablet 0 06/18/2023 06/22/2023 Active Comment on above: Take 1 tablet by maximiliano th once daily for 4 days. Take daily [...] tablet by maximiliano th daily at bedtime. 125 ml sodium chloride 9 mg/ml prefilled syringe (13 sources) Start: End: 3 sodium chloride 0.9 % (flush) 10 mL (BD POSIFLUSH) spironolactone 50 mg oral tablet (20 sources) Aldosterone Antagonist Start: End: take 1 tablet by mouth once daily [...] above: Take 1 tablet by maximiliano once daily. Completed/Discontinued Medications Medication Drug Class(es) [...] Take 1 tablet by maximiliano th twice daily for 7 days. Biotin (16 [...] mg, OTHER, ONCE, 1 dose, O n 04/27/24 at 1400 Start: 08-06-2023 End: 08-06-2023 bupivacaine(PF) 0.75 % (7.5 mg/mL) 7.5 mg injection (MARCAINE PF) Calcium (4 sources) Phosphate Binder, Calcium Start: 01-03-2015 take 1 tablet by mouth once daily CALCIUM + D TABLET 1 by mouth once a day CALCIUM + D TABLET Karlee Grullon AT imo-L6-[id number] a-ady-tpci-bor (Caltrate 600-D Plus Minerals) 600 mg calcium- [...] on above: Take 1 capsule by mo [facility] four times daily for 5 days. colchicine [...] take 1 tablet by mouth once daily Triamterene-[place] chlorothiazid (Maxzide-25mg) 1 EACH tablet Discontinued 1 [...] on above: Take 1 tablet by maximiliano every 6 hours as needed (dizziness). meloxicam [...] puckett MULTIVITAL ORAL TABLET (1 source) Start: 4 take 1 tablet by mouth once daily MULTIVITAL ORAL TABLET 1 tablet by mouth once a day MULTIVITAL ORAL TABLET Jes [facility] naproxen 500 mg oral tablet (15 sources) Nonsteroidal Anti-inflammatory Drug Start: End: take 1 tablet by mouth every twelve hours as needed naproxen (NAPROSYN) 500 mg tablet Take 1 tablet by mouth two times a day as needed (for pain/inflammation). Take with food. 60 tablet 03/20/2023 06/18/2023 Discontinued Comment on above: Take 1 tablet by [facility] two times a day as needed (for [...] with patient; Translations: [Other specified counseling] Onset: 2 04-23-2021 Episodic Allergic reactions (20 sources) Radiation-induced [...] sources) Vertigo; Translations: [Dizziness and giddiness] Onset: 09-26-202 2 Episodic Deficiency and other anemia (1 [...] (20 sources) Patient encounter status; Translations: [Other custodial (current) drug therapy] Onset: 5 Resolved: 7 [...] Facility Cardiology Visit Reporton Cardiology Visit Report [facility] [address] [place] [address]. [address] [place] [address] OFFICE VISIT Date of Service: 01/18/25 MR#: [id number] Acct: [id number] Name: SPENSER PUTNAM Rep #: [id number] : 1940 Provider: Dr. Fazal brian DO Age/Sex: 84/F Location: [facility] [place] Status: Signed HPI HPI History of Present Illness Details: Patient is an 84-year-old female with past medical history including hyperlipidemia, hypertension, nonobstructive bilateral carotid stenosis, syncope. Patient has multiple presentations to ED for concerns of syncope, last presentation in 12/22/2024. Patient was sitting in chair and was feeling abdominal discomfort and constipation. Patient suddenly lost consciousness briefly and was transported to [place] ED where workup was overall benign. Echocardiogram [...] Source NIBP NIBP Intake Visit Reasons: S/P [facility] 12/22 Temporary Help Agency Referral Clerk Required: No Is patient in pain?: No [...] bilaterally wit (more content not included)... Normal [facility] Inj/Asp Jose Jt Should/Hip/Kn eeon 01-17-2025 Inj/Asp Jose Jt Should/Hip/Knee [facility] Imaging Services [address] [place] [address] Inj/Asp Jose Jt Should/Hip/Knee MR#: [id number] Acct: [id number] Name: SPENSER PUTNAM Rep #: [id number] : 1940 F 84 From: Corona mackey MD PCP: Dr. Juan Spann MD Status: REG CLI Study: Inj/Asp Jose Jt Should/Hip/Knee Date of Exam: 03/19/24 Exam# [id number] Ordering Dr: Dequan Ayala MD PROCEDURE: INJ/ASP [...] well without any immediate complication. Reading Location: [facility]--1 CC: Dr. Dequan Ayala MD; Dr. Juan Spann MD Pile Driver: Signed [facility] 01-14-2025 [facility] Telephone (waygumWS) SPENSER PUTNAM ([id number]) 1940 F Date Time Provider Department 01/14/25 DEQUAN AYALA During your visit today, we recorded the following information about you: Roxy Torres MA 01/14/2025 9:01 AM Signed Received a call from [facility]. Patient is scheduled for a [...] 01/17/2025 8:44 AM Signed New order in Epic. Roxy Torres MA 01/17/2025 8:45 AM Signed Order faxed to [facility]. Confirmation received. Allergies As of [...] [L82.1] 06/23/2006 [facility]08/24/2008 07/29/2011 Class: Chronic Routine gynecological examination [...] [D63.8] 11/09/2023 (more content not included)... Normal [facility] Marleny 01-12-2025 [facility]NAM ([id number]) 1940 F Date Time Provider Department 01/12/25 [facility] today, we recorded the [...] [L82.1] 06/23/2006 [facility]*08/24/2008 07/29/2011 Class: Chronic Routine gynecological examination [...] asymmetrical [H90.3]10/08/ (more content not included)... Normal [facility] Bacteria Ur Culton 5 Bacteria identified Cx Nom (U) ORGANISM ID: 1 >=100,000 CFU/ml Mixed microbiota including 3 different colony types, and no one type predominating. No further workup. Normal [facility] Comment on above: Performed By: #### 6 30-4 ####[facility] [id number] [place] [address] [place] Urinalysis complete panel (U )on 01-11-2025 BACTERIA UL >9821 High Negative [facility] Comment on above: Order Comment: Speci men Type: URINE SPECIMEN Ordering Facility: [facility] Address: [address] [place] [address] Performed By: #### 2 4356-8 #### [facility] CLIA [id number] [address] [place] [address] [place] Bilirubin Ql (U) Negative Normal Negative [facility] Comment on above: Order Comment: Speci men Type: URINE SPECIMEN Ordering Facility: [facility] Address: [address] [place] [address] Performed By: #### 2 4356-8 #### [facility] CLIA [id number] [address] [place] [address] [place] Clarity (Unsp spec) Clear Normal Clear Jack [facility] Comment on above: Order Comment: Speci men Type: URINE SPECIMEN Ordering Facility: [facility] Address: [address] [place] [address] Performed By: #### 2 4356-8 #### [facility] CLIA [id number] [address] [place] [address] [place] Color (U) Yellow Normal Yellow [facility] Comment on above: Order Comment: Speci men Type: URINE SPECIMEN Ordering Facility: [facility] Address: [address] [place] [address] Performed By: #### 2 4356-8 #### [facility] CLIA [id number] [address] [place] [address] [place] Epithelial cells LM.HPF (Urine sed) [#/Area] Few Normal [facility] Comment on above: Order Comment: Speci men Type: URINE SPECIMEN Ordering Facility: [facility] Address: [address] [place] [address] Performed By: #### 2 4356-8 #### [facility] CLIA [id number] [address] [place] [address] [place] Glucose Test strip (U) [Mass/Vol] Negative Normal Negative [facility] Comment on above: Order Comment: Speci men Type: URINE SPECIMEN Ordering Facility: [facility] Address: [address] [place] [address] Performed By: #### 2 4356-8 #### [facility] CLIA [id number] [address] [place] [address] [place] Hemoglobin Ql (U) 1+ Abnormal Negative [facility] Comment on above: Order Comment: Speci men Type: URINE SPECIMEN Ordering Facility: [facility] Address: [address] [place] [address] Performed By: #### 2 4356-8 #### [facility] CLIA [id number] [address] [place] [address] [place] Hyaline casts (Urine sed) [#/Area] 1-3 /LPF Abnormal 0 /LPF [facility] Comment on above: Order Comment: Speci men Type: URINE SPECIMEN Ordering Facility: [facility] Address: [address] [place] [address] Performed By: #### 2 4356-8 #### [facility] CLIA [id number] [address] [place] [address] [place] Ketones Ql (U) Negative Normal Negative [facility] Comment on above: Order Comment: Speci men Type: URINE SPECIMEN Ordering Facility: [facility] Address: [address] [place] [address] Performed By: #### 2 4356-8 #### [facility] CLIA [id number] [address] [place] [address] [place] Leukocyte esterase Test strip Ql (U) 3+ Abnormal Negative [facility] Comment on above: Order Comment: Speci men Type: URINE SPECIMEN Ordering Facility: [facility] Address: [address] [place] [address] Performed By: #### 2 4356-8 #### [facility] CLIA [id number] [address] [place] [address] [place] Nitrite Ql (U) Negative Normal Negative [facility] Comment on above: Order Comment: Speci men Type: URINE SPECIMEN Ordering Facility: [facility] Address: [address] [place] [address] Performed By: #### 2 4356-8 #### [facility] CLIA [id number] [address] [place] [address] [place] pH (U) 5.5 [pH] Normal 5.0-8.0 [facility] Comment on above: Order Comment: Speci men Type: URINE SPECIMEN Ordering Facility: [facility] Address: [address] [place] [address] Performed By: #### 2 4356-8 #### [facility] CLIA [id number] [address] [place] [address] [place] Protein (U) [Mass/Vol] Trace Abnormal Negative [facility] Comment on above: Order Comment: Speci men Type: URINE SPECIMEN Ordering Facility: [facility] Address: [address] [place] [address] Performed By: #### 2 4356-8 #### [facility] CLIA [id number] [address] [place] [address] [place] RBC LM.HPF (Urine sed) [#/Area] 6-10 /HPF Abnormal 0-2 /HPF [facility] Comment on above: Order Comment: Speci men Type: URINE SPECIMEN Ordering Facility: [facility] Address: [address] [place] [address] Performed By: #### 2 4356-8 #### [facility] CLIA [id number] [address] [place] [address] [place] Specific gravity (U) [Rel density] 1.017 Normal 1.005-1.030 [facility] Comment on above: Order Comment: Speci men Type: URINE SPECIMEN Ordering Facility: [facility] Address: [address] [place] [address] Performed By: #### 2 4356-8 #### [facility] CLIA [id number] [address] [place] [address] [place] Urobilinogen Ql (U) 0.2 EU/dL Normal 0.2-1.0 EU/dL [facility] Comment on above: Order Comment: Speci men Type: URINE SPECIMEN Ordering Facility: [facility] Address: [address] [place] [address] Performed By: #### 2 4356-8 #### [facility] CLIA [id number] [address] [place] [address] [place] WBC LM.HPF (Urine sed) [#/Area] /[HPF] Abnormal 0-5 /HPF [facility] Comment on above: Order Comment: Speci men Type: URINE SPECIMEN Ordering Facility: [facility] Address: [address] [place] [address] Performed By: #### 2 4356-8 #### [facility] CLIA [id number] [address] [place] [address] [place] Marleny 01-05-2025 [facility] Telephone (LUPIS) CIARASPENSER MCKEON ([id number]) 1940 F Date Time Provider Department 01/05/25 [...] Visit: Patient Question [1477] Prescriptions as of 01/12/2025 - nitrofurantoin monohydrate [...] [L82.1] 06/23/2006 [facility]*08/24/2008 07/29/2011 Class: Chronic Routine gynecological examination [...] Valvular hea (more content not included)... Normal [facility] CNOVon 12-29-2024 CNOV Office Visit (FAMPWS) SPENSER PUTNAM ([id number]) 1940 F Date Time Provider Department 12/29/24 11:40 AM DESTINI LAY FAMPWS During your visit today, we recorded the following information about you: Temperature Pulse Blood pressure Weight 97.4 degrees 78/minute 149/80 58.5 kg Destini Lay PA-C 12/30/2024 7:43 AM Signed Chief Complaint Patient presents with: Hospital F/U HPI Spenser Puntam is a 84 year old female who [...] significant findings - Scheduled to see a accounting instructor next week for a loop recorder. - [...] CA rt (more content not included)... Normal [facility] 12-29-2024 [facility] Telephone (SALINASWS) CLAUDIASPENSER MANN ([id number]) 1940 F Date Time Provider Department 12/29/24 [facility] your visit today, we recorded the [...] [L82.1] 06/23/2006 [facility]*08/24/2008 07/29/2011 Class: Chronic Routine gynecological examination [...] Status:Closed by JONAS MILAN on 12/29/24 Normal [facility] XR SHLDR >/=3V AP/HORTENSIA AP/OTH R [...] which may be seen with calcific tendinitis. Pile Driver: PSCB Transcribe Date/Time: Dec 29 2024 12:45P Dictated by : ASAF HUGHES MD This examination was interpreted and the report reviewed and electronically signed by: ASAF HUGHES MD on Dec 29 2024 12:50PM EST [id number] CN Normal [facility] Absolute lymphocyte countOrd ered By: Rachael Crook on 12-22-2024 Lymphocytes Auto (Unsp spec) [#/Vol] 2.04 10*3/uL 0.83-4.51 [facility] Absolute neutrophil countOrd ered By: Rachael Crook on 12-22-2024 Neutrophils (Bld) [#/Vol] 4.1 10*3/uL 2.0-7.7 [facility] Anion gap in Serum or Plasma Ordered By: Rachael Crook on 12-22-2024 Anion gap [Moles/Vol] 6 mmol/L 07-22 [facility] Automated lymphocyte count a s percentage of total leukocytesOrdered By: Rachael Crook on 12-22-2024 Lymphocytes/100 WBC Auto (Unsp spec) 30.5 % [facility] BUN/creatinine ratioOrdered By: Rachael Crook on 12-22-2024 Urea nitrogen/Creatinine [Mass ratio] 20.4 mg/mg High 12-27 [facility] Basic Metabolic Profile (BMP )on 12-22-2024 BUN/CRE 20.4 RATIO High 12-27 [facility] Comment on above: Performed By: #### L 500.3400 #### [facility] [address] [place], [address] ECRCL 45.73 ml/min Low 50-250 [facility] Comment on above: Performed By: #### L 500.3400 #### [facility] [address] [place], [address] GAP 6 Normal 07-22 [facility] Comment on above: Performed By: #### L 500.3400 #### [facility] [address] [place], [address] Potassium [Moles/Vol] 4.2 mmol/L Normal 3.3-5.1 [facility] Comment on above: Performed By: #### L 500.3400 #### [facility] [address] [place], [address] Basophil percentageOrdered B y: Rachael Crook on 12-22-2024 Basophils/100 WBC (Bld) 0.1 % 0-1 [facility] CBC W/Diff, Automatedon 12-08 Absolute Lymph 2.04 X10 3/uL Normal 0.83-4.51 [facility] Comment on above: Performed By: #### L 500.3400 #### [facility] [address] [place], [address] Absolute Neut 4.1 X10 3/uL Normal 2.0-7.7 [facility] Comment on above: Performed By: #### L 500.3400 #### [facility] [address] [place], [address] Basophils/100 WBC (Bld) 0.1 % Normal 0-1 [facility] Comment on above: Performed By: #### L 500.3400 #### [facility] [address] [place], [address] Eosinophils/100 WBC (Bld) 0.6 % Normal 0-5 [facility] Comment on above: Performed By: #### L 500.3400 #### [facility] [address] [place], [address] Erythrocyte distribution width (RBC) [Ratio] 14.6 % Normal 11.6-14.6 [facility] Comment on above: Performed By: #### L 500.3400 #### [facility] [address] [place], [address] Hematocrit (Bld) [Volume fraction] 29.4 % Low 37-47 [facility] Comment on above: Performed By: #### L 500.3400 #### [facility] [address] [place], [address] Hemoglobin (Bld) [Mass/Vol] 9.4 g/dL Low 12.0-15.0 [facility] Comment on above: Performed By: #### L 500.3400 #### [facility] [address] [place], [address] IG% 0.300 Normal 0.0-0.9 [facility] Comment on above: Result Comment: IG% - Immature Granulocytes (promyelocytes, myelocytes and metamyelocytes) > 1% indicates that a LEFT SHIFT is Present. Performed By: #### L 500.3400 #### [facility] [address] [place], [address] Lymphocytes/100 WBC (Bld) 30.5 % Normal 19-41 [facility] Comment on above: Performed By: #### L 500.3400 #### [facility] [address] [place], [address] MCH (RBC) [Entitic mass] 29.2 pg Normal 27.0-32.0 [facility] Comment on above: Performed By: #### L 500.3400 #### [facility] [address] [place], [address] MCHC (RBC) [Mass/Vol] 32.0 g/dL Normal 32-36 [facility] Comment on above: Performed By: #### L 500.3400 #### [facility] [address] [place], [address] MCV (RBC) [Entitic vol] 91.3 fL Normal 81-99 [facility] Comment on above: Performed By: #### L 500.3400 #### [facility] [address] [place], [address] Monocytes/100 WBC (Bld) 7.2 % Normal 0-10 [facility] Comment on above: Performed By: #### L 500.3400 #### [facility] [address] [place], [address] Neutrophils/100 WBC (Bld) 61.3 % Normal 47-70 [facility] Comment on above: Performed By: #### L 500.3400 #### [facility] [address] [place], [address] Nucleated RBC (Bld) [#/Vol] 0 10*3/uL Normal 0-5 [facility] Comment on above: Performed By: #### L 500.3400 #### [facility] [address] [place], [address] Platelet mean volume (Bld) [Entitic vol] 9.4 fL Normal 6.2-12.0 [facility] Comment on above: Performed By: #### L 500.3400 #### [facility] [address] [place], [address] Platelets (Bld) [#/Vol] 189 10*3/uL Normal 150-450 [facility] Comment on above: Performed By: #### L 500.3400 #### [facility] [address] [place], [address] RBC (Bld) [#/Vol] 3.22 10*6/uL Low 4.2-5.4 [facility] Comment on above: Performed By: #### L 500.3400 #### [facility] [address] [place], [address] RDW SD 48.9 fl High 35.1-43.9 [facility] Comment on above: Performed By: #### L 500.3400 #### [facility] [address] [place], [address] WBC (Bld) [#/Vol] 6.7 10*3/uL Normal 4.4-11.0 [facility] Comment on above: Performed By: #### L 500.3400 #### [facility] [address] [place], [address] Carbon dioxide, total [Moles /volume] in Central venous bloodOrdered By: Rachael Crook on 12-22-2024 CO2 [Moles/Vol] 24.9 mmol/L Normal 21.0-32.0 [facility] Comment on above: Performed By: #### L 500.3400 #### [facility] [address] [place], [address] Chloride assayOrdered By: Mounika Crook on 12-22-2024 Chloride [Moles/Vol] 104 mmol/L Normal 98-108 [facility] Comment on above: Performed By: #### L 500.3400 #### [facility] [address] [place], [address] Discharge Instructionon 12-08 Discharge Instruction [facility] Medical Records Department [address] [place] [address] Instructions for Home/Discharge Instructions 12/22/24 1448 MR#: [id number] Acct: [id number] Name: SPENSER PUTNAM Rep #: [id number] : 1940 84 From: Chelsea Carbone DO [...] meq PO DAILY Referrals / Follow Up: Chapito,Blanka, MD [Med Staff - Active Staff, Cardiology] - 01/04/25 10:30 am Juan Spann MD [Primary Care Provider, Family Practice] - In 1 Week Disposition Disposition (needs filled in before D/C Order can be placed): Home, Self Care 12/22/24 1503 Chelsea Carbone DO CC: Dr. Juan Spann MD; Dr. Rachael Crook MD Signed Normal [facility] Echo Completeon 12-22-2024 Echo Complete [facility] [address] [place] [address] Echo Complete 12/22/24 0857 MR#: [id number] Acct: [id number] Name: SPENSER PUTNAM Rep #: [id number] : 1940 84 From: Familia Ng MD Attending Dr: Dr. Chelsea Carbone DO Status: A DM JANNETTE Ordering Dr: Rachael Crook MD Date: 12/22/24 Location: U Sex: F C Admitted: 12/21/24 Reason For [...] By: Latasha Marie RDCS 12/22/24 1123 Date Familai Ng MD CC: Dr. Juan Spann MD; Dr. Chelsea Carbone DO; Dr. Rachael Crook MD Date Dictated: 12/22/24856 Date Transcribed: 12/22/24 1123 Pile Driver: Signed Normal [facility] Echocardiogram study reportO rdered By: Familia Ng on 12-22-2024 Study report [facility] Cardiovascular Services [address] [place] [address] Echo Complete 12/22/24856 MR#: [id number] Acct: [id number] Name: SPENSER PUTNAM Rep #:[id number] : 1940 84 From: Familia Natarajan Attending Dr: Dr. Chelsea Carbone DO Status: ADM JANNETTE Ordering Dr: Rachael Crook MD Date: 12/22/24 Location: [facility] Sex: F C Admitted: 12/21/24 Reason For [...] MD ~ Date Dictated: 12/22/24856 Date Transcribed: 12/22/24 112 Pile Driver: Signed [facility] Work Phone: Electrocardiogram reportOrde red By: Familia Ng on 12-22-2024 EKG study [facility] Cardiovascular Services [address] [place] [address] 12 Lead EKG 12/21/241957 MR#: [id number] Acct: [id number] Name: SPENSER PUTNAM Rep #:[id number] : 1940 84 From: Familia Ng MD Attending Dr: Dr. Chelsea Carbone DO Status: ADM JANNETTE Ordering Dr: Tigre Downing MD Date: Location: [facility] Sex: F C Admitted: 12/21/24 Test Reason : DYSRHYTHMIA Blood Pressure : */* mmHG Vent. Rate : 57 BPM Atrial Rate : 57 BPM P-R Int : 166 ms QRS Dur : 84 ms QT Int : 448 ms P-R-T Axes : 60 20 46 degrees QTcB Int : 436 ms Sinus bradycardia Otherwise normal ECG Confirmed by YARELIS RANDALL, FAMILIA ([id number]), editorial manager ALISSON COLUNGA ([id number]) on 0:55:39 AM Referred By: JW Confirmed By: FAMILIA NG MD 12/22/24 1055 Date _ Familia Ng MD CC: Dr. Tigre Downing MD; Dr. Juan Spann MD; Dr. Chelsea Carbone DO ~ Signed [facility] Work Phone: Eosinophil percentageOrdered By: Rachael Crook on 12-22-2024 Eosinophils/100 WBC (Bld) 0.6 % 0-5 [facility] Erythrocyte distribution wid th ratioOrdered By: [facility] on 12-22-2024 Erythrocyte distribution width (RBC) [Ratio] 14.6 % 11.6-14.6 [facility] Erythrocyte distribution wid th standard deviationOrdered By: Rachaelalex Crook on 12-22-2024 Erythrocyte distribution width (RBC) [Ratio] 48.9 fl High 35.1-43.9 [facility] Glomerular filtration rate ( GFR) estimation/1.73 sq m using serum, plasma, or whole bOrdered By: Rachael Crook on 12-22-2024 GFR/1.73 sq M.predicted among non-blacks MDRD (S/P/Bld) [Vol rate/Area] 86 mL/min/{1.73_m2} Normal >60 [facility] Comment on above: mL/min/1.73m2 CKD-EP I Creatinine Equation (2020) Result Comment: mL/m in/1.73m2 CKD-EPI Creatinine Equation (2020) Performed By: #### L 500.3400 #### [facility] Laboratory [address] [place] [address], [address] Hematocrit Auto (Bld) [Volum e fraction]Ordered By: Rachael Crook 12-22-2024 Hematocrit (Bld) [Volume fraction] 29.4 % Low 37-47 [facility] Hemoglobin measurementOrdere d By: Rachael Crook 12-22-2024 Hemoglobin (Bld) [Mass/Vol] 9.4 g/dL Low 12.0-15.0 [facility] Immature granulocytes/100 WB C Auto (Bld)Ordered By: Rachael Crook on 12-22-2024 Immature granulocytes/100 WBC (Bld) 0.300 % 0.0-0.9 [facility] Comment on above: IG% - Immature Granu locytes (promyelocytes, myelocytes and metamyelocytes) > 1% indicates that a LEFT SHIFT is Present. MCV (mean corpuscular volume ) determinationOrdered By: Rachael Crook on 12-22-2024 MCV (RBC) [Entitic vol] 91.3 fL 81-99 [facility] Mean corpuscular hemoglobin (MCH) determinationOrdered By: Rachael Crook on 12-22-2024 MCH (RBC) [Entitic mass] 29.2 pg 27.0-32.0 [facility] Mean corpuscular hemoglobin concentration (MCHC) determinationOrdered By: Rachael Crook on 12-22-2024 MCHC (RBC) [Mass/Vol] 32.0 g/dL 32-36 [facility] Mean platelet volume determi nationOrdered By: Rachael Crook on 12-22-2024 Platelet mean volume (Bld) [Entitic vol] 9.4 fL 6.2-12.0 [facility] Monocyte percentageOrdered B y: Rachael Crook on 12-22-2024 Monocytes/100 WBC (Bld) 7.2 % 0-10 [facility] Neutrophil percentageOrdered By: Rachael Crook on 12-22-2024 Neutrophils/100 WBC (Bld) 61.3 % 47-70 [facility] Nucleated red blood cell per centageOrdered By: Rachael Crook on 12-22-2024 Nucleated RBC/100 WBC (Bld) [Ratio] 0 % 0-5 [facility] Platelet countOrdered By: Na na Ambreen on 12-22-2024 Platelets (Bld) [#/Vol] 189 10*3/uL 150-450 [facility] Potassium measurement (mass/ volume)Ordered By: Rachael Crook on 12-22-2024 Potassium (Unsp spec) [Mass/Vol] 4.2 mmol/L 3.3-5.1 [facility] RBC Auto (Bld) [#/Vol]Ordere d By: Rachael Crook on 12-22-2024 RBC (Bld) [#/Vol] 3.22 10*6/uL Low 4.2-5.4 [facility] Serum creatinine measurement (mass/volume)Ordered By: Rachael Crook on 12-22-2024 Creatinine [Mass/Vol] 0.67 mg/dL Low 0.70-1.20 [facility] Comment on above: Performed By: #### L 071.9908 #### [facility] Laboratory [address] [place], [place] [address]. [place], [place], [id number] Serum glucose measurement (m ass/volume)Ordered By: Rachael Ambreen on 12-22-2024 Glucose [Mass/Vol] 92 mg/dL Normal 70-99 [facility] Comment on above: Performed By: #### L 500.3400 #### [facility] [address] [place], [address] Serum or plasma calcium ilsa urement (mass/volume)Ordered By: Rachaelalex Crook on 12-22-2024 Calcium [Mass/Vol] 8.5 mg/dL Normal 7.6-11.0 [facility] Comment on above: Performed By: #### L 500.3400 #### [facility] [address] [place], [address] Serum or plasma urea nitroge n measurement (mass/volume)Ordered By: Rachael Ambreen on 12-22-2024 Urea nitrogen [Mass/Vol] 14 mg/dL Normal 4-19 [facility] Comment on above: Performed By: #### L 500.3400 #### [facility] Laboratory [address] [place], [address] Sodium levelOrdered By: Rachael Loweryramón on 12-22-2024 Sodium [Moles/Vol] 134 mmol/L Normal 133-145 [facility] Comment on above: Performed By: #### L 500.3400 #### [facility] [address] [place], [address] Troponin T HS 4 HRon 025 Trop T High Sen 37 ng/L High <=14 [facility] Comment on above: Performed By: #### L 499.0043 #### [facility] Laboratory [address] [place], [address] White blood cell (WBC) count Ordered By: Rachael Loweryramón on 12-22-2024 WBC (Bld) [#/Vol] 6.7 10*3/uL 4.4-11.0 [facility] 12 Lead EKGon 12-21-2024 12 Lead EKG [facility] Cardiovascular Services [address] [place] [address] 12 Lead EKG 12/21/241957 MR#: [id number] Acct: [id number] Name: SPENSER PUTNAM Rep #: [id number] : 1940 84 From: Familia Ng MD Attending Dr: Dr. Chelsea Carbone DO Status: A DM JANNETTE Ordering Dr: Tigre Downing MD Date: 12/21/24 Location: [facility] Sex: F C Admitted: 12/21/24 Test Reason : DYSRHYTHMIA Blood Pressure : */* mmHG Vent. Rate : 57 BPM Atrial Rate : 57 BPM P-R Int : 166 ms QRS Dur : 84 ms QT Int : 448 ms P-R-T Axes : 60 20 46 degrees QTcB Int : 436 ms Sinus bradycardia Otherwise normal ECG Confirmed by YARELIS RANDALL, FAMILIA ([id number]), editorial manager ALISSON COLUNGA ([id number]) on 12/22/2024 10:55:39 AM Referred By: Confirmed By: FAMILIA NG MD 12/22/24 1055 Date Familia Ng MD CC: Dr. Tigre Downing MD; Dr. Juan Spann MD; Dr. Chelsea Carbone DO Signed Normal [facility] Abdomen/Pelvis W IV Cont ONL Yon 12-21-2024 Abdomen/Pelvis W IV Cont ONLY [facility] Imaging Services [address] [facility] [place] [address] Abdomen/Pelvis W IV Cont ONLY MR#: [id number] Acct: [id number] Name: SPENSER PUTNAM Rep #: [id number] : 1940 F 84 From: Anthony Clinton MD PCP: Dr. Juan Spann MD Status: REG ER Study: Abdomen/Pelvis W IV Cont ONLY Date of Exam: Exam# [id number] Ordering Dr: Tigre Downing MD PROCEDURE: ABDOMEN/PELVIS W IV CONT [...] patient's lower abdominal pain. There is a mbcvjbcw-gr-sfwzk amount of stool in sigmoid colonic loops. No definite bowel obstruction however. Other details as above. Reading Location: [facility] CC: Dr. Tigre Downing MD; Dr. Juan Spann MD Pile Driver: Signed Normal [facility] Basic Metabolic Profile (BMP )on 12-21-2024 BUN/CRE 18.3 RATIO Normal 10-20 [facility] Comment on above: Performed By: #### L 500.2500, L501.4021, L501.2450, L100.0100, L500.3400 #### [facility] Laboratory [address] [place], [address] Calcium [Mass/Vol] 9.2 mg/dL Normal 7.6-11.0 [facility] Comment on above: Performed By: #### L 500.2500, L501.4021, L501.2450, L100.0100, L500.3400 #### [facility] [address] [place], [address] Chloride [Moles/Vol] 99 mmol/L Normal 98-108 [facility] Comment on above: Performed By: #### L 500.2500, L501.4021, L501.2450, L100.0100, L500.3400 #### [facility] [address] [place], [address] CO2 [Moles/Vol] 23.1 mmol/L Normal 21.0-32.0 [facility] Comment on above: Performed By: #### L 500.2500, L501.4021, L501.2450, L100.0100, L500.3400 #### [facility] Laboratory [address] [place], [address] Creatinine [Mass/Vol] 0.98 mg/dL Normal 0.70-1.20 [facility] Comment on above: Performed By: #### L 500.2500, L501.4021, L501.2450, L100.0100, L500.3400 #### [facility] [address] [place], [address] ECRCL 36.10 ml/min Low 50-250 [facility] Comment on above: Performed By: #### L 500.2500, L501.4021, L501.2450, L100.0100, L500.3400 #### [facility] [address] [place], [address] GAP 12 Normal 5-15 [facility] Comment on above: Performed By: #### L 500.2500, L501.4021, L501.2450, L100.0100, L500.3400 #### [facility] [address] [place], [address] GFR/1.73 sq M.predicted among non-blacks MDRD (S/P/Bld) [Vol rate/Area] 57 mL/min/{1.73_m2} Low >60 [facility] Comment on above: Result Comment: mL/m in/1.73m2 CKD-EPI Creatinine Equation (2020) Performed By: #### L 500.2500, L501.4021, L501.2450, L100.0100, L500.3400 #### [facility] [address] [place], [address] Glucose [Mass/Vol] 101 mg/dL High 70-99 [facility] Comment on above: Performed By: #### L 500.2500, L501.4021, L501.2450, L100.0100, L500.3400 #### [facility] [address] [place], [address] Potassium [Moles/Vol] 3.5 mmol/L Normal 3.3-5.1 [facility] Comment on above: Performed By: #### L 500.2500, L501.4021, L501.2450, L100.0100, L500.3400 #### [facility] [address] [place], [address] Sodium [Moles/Vol] 134 mmol/L Normal 133-145 [facility] Comment on above: Performed By: #### L 500.2500, L501.4021, L501.2450, L100.0100, L500.3400 #### [facility] [address] [place], [address] Urea nitrogen [Mass/Vol] 18 mg/dL Normal 4-19 [facility] Comment on above: Performed By: #### L 500.2500, L501.4021, L501.2450, L100.0100, L500.3400 #### [facility] [address] [place], [address] Bilirubin Test strip Ql (U)O rdered By: Tigre Downing on 12-21-2024 Bilirubin Ql (U) Negative Negative [facility] Bilirubin directOrdered By: Tigre Downing on 12-21-2024 Bilirubin.direct [Mass/Vol] 0.21 mg/dL 0.00-0.30 [facility] Bilirubin, totalOrdered By: Tiger Downing on 12-21-2024 Bilirubin [Mass/Vol] 0.47 mg/dL 0.00-1.30 [facility] CBC W/Diff, Automatedon 12-08-2024 Absolute Lymph 3.68 X10 3/uL Normal 0.83-4.51 [facility] Comment on above: Performed By: #### L 500.2500, L501.4021, L501.2450, L100.0100, L500.3400 #### [facility] [address] [place], [address] Absolute Neut 6.1 X10 3/uL Normal 2.0-7.7 [facility] Comment on above: Performed By: #### L 500.2500, L501.4021, L501.2450, L100.0100, L500.3400 #### [facility] [address] [place], [address] Basophils/100 WBC (Bld) 0.3 % Normal 0-1 [facility] Comment on above: Performed By: #### L 500.2500, L501.4021, L501.2450, L100.0100, L500.3400 #### [facility] [address] [place], [address] Eosinophils/100 WBC (Bld) 0.4 % Normal 0-5 [facility] Comment on above: Performed By: #### L 500.2500, L501.4021, L501.2450, L100.0100, L500.3400 #### [facility] [address] [place], [address] Erythrocyte distribution width (RBC) [Ratio] 14.5 % Normal 11.6-14.6 [facility] Comment on above: Performed By: #### L 500.2500, L501.4021, L501.2450, L100.0100, L500.3400 #### [facility] [address] [place], [address] Hematocrit (Bld) [Volume fraction] 34.0 % Low 37-47 [facility] Comment on above: Performed By: #### L 500.2500, L501.4021, L501.2450, L100.0100, L500.3400 #### [facility] [address] [place], [address] Hemoglobin (Bld) [Mass/Vol] 11.0 g/dL Low 12.0-15.0 [facility] Comment on above: Performed By: #### L 500.2500, L501.4021, L501.2450, L100.0100, L500.3400 #### [facility] [address] [place], [address] IG% 0.400 Normal 0.0-0.9 [facility] Comment on above: Result Comment: IG% - Immature Granulocytes (promyelocytes, myelocytes and metamyelocytes) > 1% indicates that a LEFT SHIFT is Present. Performed By: #### L 500.2500, L501.4021, L501.2450, L100.0100, L500.3400 #### [facility] [address] [place], [address] Lymphocytes/100 WBC (Bld) 34.6 % Normal 19-41 [facility] Comment on above: Performed By: #### L 500.2500, L501.4021, L501.2450, L100.0100, L500.3400 #### [facility] [address] [place], [address] MCH (RBC) [Entitic mass] 29.3 pg Normal 27.0-32.0 [facility] Comment on above: Performed By: #### L 500.2500, L501.4021, L501.2450, L100.0100, L500.3400 #### [facility] [address] [place], [address] MCHC (RBC) [Mass/Vol] 32.4 g/dL Normal 32-36 [facility] Comment on above: Performed By: #### L 500.2500, L501.4021, L501.2450, L100.0100, L500.3400 #### [facility] [address] [place], [address] MCV (RBC) [Entitic vol] 90.4 fL Normal 81-99 [facility] Comment on above: Performed By: #### L 500.2500, L501.4021, L501.2450, L100.0100, L500.3400 #### [facility] [address] [place], [address] Monocytes/100 WBC (Bld) 7.3 % Normal 0-10 [facility] Comment on above: Performed By: #### L 500.2500, L501.4021, L501.2450, L100.0100, L500.3400 #### [facility] [address] [place], [address] Neutrophils/100 WBC (Bld) 57.0 % Normal 47-70 [facility] Comment on above: Performed By: #### L 500.2500, L501.4021, L501.2450, L100.0100, L500.3400 #### [facility] [address] [place], [address] Nucleated RBC (Bld) [#/Vol] 0 10*3/uL Normal 0-5 [facility] Comment on above: Performed By: #### L 500.2500, L501.4021, L501.2450, L100.0100, L500.3400 #### [facility] [address] [place], [address] Platelet mean volume (Bld) [Entitic vol] 9.6 fL Normal 6.2-12.0 [facility] Comment on above: Performed By: #### L 500.2500, L501.4021, L501.2450, L100.0100, L500.3400 #### [facility] [address] [place], [address] Platelets (Bld) [#/Vol] 254 10*3/uL Normal 150-450 [facility] Comment on above: Performed By: #### L 500.2500, L501.4021, L501.2450, L100.0100, L500.3400 #### [facility] [address] [place], [address] RBC (Bld) [#/Vol] 3.76 10*6/uL Low 4.2-5.4 [facility] Comment on above: Performed By: #### L 500.2500, L501.4021, L501.2450, L100.0100, L500.3400 #### [facility] [address] [place], [address] RDW SD 47.8 fl High 35.1-43.9 [facility] Comment on above: Performed By: #### L 500.2500, L501.4021, L501.2450, L100.0100, L500.3400 #### [facility] [address] [place], [address] WBC (Bld) [#/Vol] 10.7 10*3/uL Normal 4.4-11.0 [facility] Comment on above: Performed By: #### L 500.2500, L501.4021, L501.2450, L100.0100, L500.3400 #### [facility] [address] [place], [address] Chest PA and Lateralon 12-21 Chest PA and Lateral [facility] Imaging Services [address] [place] [address] Chest PA and Lateral MR#: [id number] Acct: [id number] Name: SPENSER PUTNAM Rep #: [id number] : 1940 F 84 From: Anthony Clinton MD PCP: Dr. Juan Spann MD Status: REG ER Study: Chest PA and Lateral Date of Exam: 12/21/24 Exam# [id number] Ordering Dr: Tigre Downing MD PROCEDURE: CHEST PA AND LATERAL [...] Lateral IMPRESSION: No acute abnormality. Reading [facility] CC: Dr. Tigre oDwning MD; Dr. Juan Spann MD Pile Driver: Signed Normal [facility] Emergency Department Summary on 12-21-2024 Emergency Department Summary [facility] Medical Records Department [address] [place] [address] Emergency Department Summary 12/21/24 MR#: [id number] Acct: [id number] Name: SPENSER PUTNAM Rep #: [id number] : 1940 84 From: Tigre Downing MD PCP: Dr. Juan Spann MD [...] nondistended nor (more content not included)... Normal [facility] H AND P Exam - Hospitaliston 12-21-2024 H&P Exam - Hospitalist [facility] Medical Records Department [address] [place] [address] H P Exam - Hospitalist 12/21/242117 MR#: [id number] Acct: [id number] Name: SPENSER PUTNAM Rep #: [id number] : 1940 84 From: Rachael Crook MD PCP: Dr. Juan Spann MD Status:ADM JANNETTE Location: [address] HPI - General General Date of Admission: [...] be managed for syncope of unclear etiology. [facility] Medical History Elevated d-dimer Chronic anemia HLD [...] dysuria Neurolo (more content not included)... Normal [facility] Hyaline casts LM.LPF (Urine sed) [#/Area]Ordered By: Tigre Downing on 12-21-2024 Hyaline casts (Urine sed) [#/Area] 0 /[LPF] 0-5 [facility] Ketones Test strip Ql (U)Ord ered By: Tigre Downing on 12-21-2024 Ketones Ql (U) Negative Negative [facility] L501.4021on 12-21-2024 Trop T High Sen 35 ng/L High <=14 [facility] Comment on above: Performed By: #### L 500.2500, L501.4021, L501.2450, L100.0100, L500.3400 #### [facility] Laboratory [address] [place], [place], [address] Laboratory - Chemistry and C hemistry - challengeOrdered By: Tigre Downing on 12-21-2024 AST [Catalytic activity/Vol] 21 U/L <32 [facility] Lactic acid measurementOrder ed By: Tigre Downing on 12-21-2024 Lactate [Moles/Vol] 1.7 mmol/L Normal 0.0-2.0 [facility] Comment on above: Order Comment: Y Performed By: #### L 503.6005 #### [facility] [address] [place], [address] Lipaseon 12-21-2024 Lipase [Catalytic activity/Vol] 17 U/L Normal 13-75 [facility] Comment on above: Result Comment: Giancarlo alberto note: LIPASE revised reference range effective 22. New Lipase methodology. Expected to produce lower values than the previous assay method. NEW Reference Range: 13 - 75 U/L Performed By: #### L 500.2500, L501.4021, L501.2450, L100.0100, L500.3400 #### [facility] [address] [place], [address] Lipase measurementOrdered By : Tigre Downing on 12-21-2024 Lipase [Catalytic activity/Vol] 17 U/L 13-75 [facility] Comment on above: Please note:LIPASE r evised reference range effective 22. New Lipase methodology. Expected to produce lower values than the previous assay method. NEW Reference Range: 13 - 75 U/L Liver Profileon 12-21-2024 Albumin [Mass/Vol] 3.6 g/dL Normal 3.4-4.8 [facility] Comment on above: Performed By: #### L 500.2500, L501.4021, L501.2450, L100.0100, L500.3400 #### [facility] [address] [place], [address] ALK PHOS 77 U/L Normal 35-104 [facility] Comment on above: Performed By: #### L 500.2500, L501.4021, L501.2450, L100.0100, L500.3400 #### [facility] [address] [place], [address] ALT [Catalytic activity/Vol] 7 U/L Normal <=34 [facility] Comment on above: Performed By: #### L 500.2500, L501.4021, L501.2450, L100.0100, L500.3400 #### [facility] [address] [place], [address] AST [Catalytic activity/Vol] 21 U/L Normal <=31 [facility] Comment on above: Performed By: #### L 500.2500, L501.4021, L501.2450, L100.0100, L500.3400 #### [facility] [address] [place], [address] Bilirubin [Mass/Vol] 0.47 mg/dL Normal 0.00-1.30 [facility] Comment on above: Performed By: #### L 500.2500, L501.4021, L501.2450, L100.0100, L500.3400 #### [facility] [address] [place], [address] Bilirubin.direct [Mass/Vol] 0.21 mg/dL Normal 0.00-0.30 [facility] Comment on above: Performed By: #### L 500.2500, L501.4021, L501.2450, L100.0100, L500.3400 #### [facility] [address] [place], [address] Globulin (S) [Mass/Vol] 2.7 g/dL Normal 2.2-4.2 [facility] Comment on above: Performed By: #### L 500.2500, L501.4021, L501.2450, L100.0100, L500.3400 #### [facility] [address] [place], [address] T PROT 6.4 g/dL Normal 5.9-8.4 [facility] Comment on above: Performed By: #### L 500.2500, L501.4021, L501.2450, L100.0100, L500.3400 #### [facility] [address] [place], [address] ALB Normal 3.4-4.8 [facility] Comment on above: Result Comment: MOVE D TO C458 Performed By: #### L 500.3400 #### [facility] [address] [place], [address] ALK PHOS Normal 35-104 [facility] Comment on above: Result Comment: MOVE D TO C458 Performed By: #### L 500.3400 #### [facility] [address] [place], [address] ALT Normal <=34 [facility] Comment on above: Result Comment: MOVE D TO C458 Performed By: #### L 500.3400 #### [facility] [address] [place], [address] AST Normal <=31 [facility] Comment on above: Result Comment: MOVE D TO C458 Performed By: #### L 500.3400 #### [facility] [address] [place], [address] D BILI Normal 0.00-0.30 [facility] Comment on above: Result Comment: MOVE D TO C458 Performed By: #### L 500.3400 #### [facility] [address] [place], [address] T BILI Normal 0.00-1.30 [facility] Comment on above: Result Comment: MOVE D TO C458 Performed By: #### L 500.3400 #### [facility] [address] [place], [address] T PROT Normal 5.9-8.4 [facility] Comment on above: Result Comment: MOVE D TO C458 Performed By: #### L 500.3400 #### [facility] [address] [place], [address] Microscopic analysis of urin e for red blood cells (RBC)Ordered By: Tigre Downing on 12-21-2024 Microscopic analysis of urine for red blood cells (RBC) 0-5 SEEN /hpf 0-5 [facility] Mucus LM Ql (Urine sed)Order ed By: Tigre Downing on 12-21-2024 Mucus Ql (Urine sed) 0 SEEN /hpf [facility] Nitrite Test strip Ql (U)Ord ered By: Tigre Downing on 12-21-2024 Nitrite Ql (U) Negative Negative [facility] Protein Test strip Ql (U)Ord ered By: Tigre Downing on 12-21-2024 Protein Ql (U) 30 mg/dl High Negative [facility] Serum globulin measurementOr dered By: Tigre Downing on 12-21-2024 Globulin (S) [Mass/Vol] 2.7 g/dL 2.2-4.2 [facility] Serum or plasma alanine akins otransferase (ALT) measurementOrdered By: Tigre Downing on 12-21-2024 ALT [Catalytic activity/Vol] 7 U/L <35 [facility] Serum or plasma albumin ilsa urement (mass/volume)Ordered By: Tigre Downing on 12-21-2024 Albumin [Mass/Vol] 3.6 g/dL 3.4-4.8 [facility] Serum or plasma alkaline theodore sphatase measurementOrdered By: Tigre Downing on 12-21-2024 ALP [Catalytic activity/Vol] 77 U/L 35-104 [facility] Squamous epithelial cells de tection in urine sediment by light microscopyOrdered By: Tigre Downing on 12-21-2024 Epithelial cells.squamous LM Ql (Urine sed) 5-10 SEEN /hpf 5-10 [facility] Total proteinOrdered By: Sen Downing on 12-21-2024 Protein [Mass/Vol] 6.4 g/dL 5.9-8.4 [facility] Troponin T HS 2 HRon 025 Trop T High Sen 35 ng/L High <=14 [facility] Comment on above: Performed By: #### L 499.0042 #### [facility] [address] [place], [address] Troponin T.cardiac [Mass/vol ume] in Serum or Plasma by High sensitivity methodOrdered By: Tigre Downing on 12-21-2024 Troponin T.cardiac High sensitivity method [Mass/Vol] 37 ng/L High <14 [facility] Troponin T.cardiac High sensitivity method [Mass/Vol] 35 ng/L High <14 [facility] Urinalysis, Completeon 12-21 CAST,HYALINE 0-5 SEEN Normal 0-5 [facility] Comment on above: Order Comment: NAY TER SPECIMEN Performed By: #### L 400.0001 #### [facility] [address] [place], [address] EPI,SQUAMOUS 5-10 SEEN Normal 5-10 [facility] Comment on above: Order Comment: NAY TER SPECIMEN Performed By: #### L 400.0001 #### [facility] [address] [place], [address] RBC 0-5 SEEN Normal 0-5 [facility] Comment on above: Order Comment: NAY TER SPECIMEN Performed By: #### L 400.0001 #### [facility] [address] [place], [address] WBC 0-5 SEEN Normal 0-5 [facility] Comment on above: Order Comment: NAY TER SPECIMEN Performed By: #### L 400.0001 #### [facility] [address] [place], [address] BACTERIA 0 SEEN Normal None Seen [facility] Comment on above: Order Comment: NAY TER SPECIMEN Performed By: #### L 400.0001 #### [facility] [address] [place], [address] Mucus Ql (Urine sed) 0 SEEN Normal [facility] Comment on above: Order Comment: NAY TER SPECIMEN Performed By: #### L 400.0001 #### [facility] [address] [place], [address] Urine clarityOrdered By: Sen Downing on 12-21-2024 Clarity (U) Clear Clear [facility] Urine color determinationOrd ered By: Tigre Downing on 12-21-2024 Color (U) Yellow Yellow [facility] Urine glucose detectionOrder ed By: Tigre Downing on 12-21-2024 Glucose Ql (U) Normal mg/dl Normal [facility] Urine leukocyte esterase det ection by dipstickOrdered By: Tigre Downing on 12-21-2024 Leukocyte esterase Test strip Ql (U) Negative Negative [facility] Urine pHOrdered By: Tigre mendoza on 12-21-2024 pH (U) 6.5 [pH] 5.0 - 8.0 [facility] Urine sediment bacteria coun t by microscopy (number/high power field)Ordered By: Tigre Downing on 12-21-2024 Bacteria LM.HPF (Urine sed) [#/Area] 0 /[HPF] None Seen [facility] Urine specific gravity measu rementOrdered By: Tigre Downing on 12-21-2024 Specific gravity (U) [Rel density] 1.015 1.002-1.030 [facility] Urine urobilinogen measureme ntOrdered By: Tigre Downing on 12-21-2024 Urobilinogen Ql (U) Normal mg/dl Normal [facility] White blood cell countOrdere d By: Tigre Downing on 12-21-2024 White blood cell count 0-5 SEEN /hpf 0-5 [facility] CNOVon 12-06-2024 CNOV Office Visit (FAMPWS) CIARASPENSER MCKEON ([id number]) 1940 F Date Time Provider Department 12/06/24 1:40 PM JUAN SPANNPWS During your visit today, we recorded the [...] Has question about Requip, states the new nick setter is making her ill. Spenser is an [...] HISTORY Procedure (more content not included)... Normal [facility] CNPNon 12-06-2024 CNPN Telephone (FAMPWS) CIARASPENSER ([id number]) 1940 F Date Time Provider Department 12/06/24 JUAN SPANN FAMWS During your visit today, we recorded the [...] in office today, pt verbalized understanding. Yue Kirklnad MA Allergies As of Date: 12/06/2024 Noted [...] [L82.1] 06/23/2006 Rout[facility]*08/24/2008 07/29/2011 Class: Chronic Routine gynecological examination [...] loss, asymm (more content not included)... Normal [facility] XR HIP 3V PELV+ AP/LAT RTon [...] Marked degenerative changes. No acute pathology identified Pile Driver: DARRYL Transcribe Date/Time: Dec 06 2024 2:51P Dictated by : TURNER MA DO This examination was interpreted and the report reviewed and electronically signed by: TURNER MA DO on Dec 06 2024 2:52PM EST [id number] CN Normal [facility]ID [facility] 10-08-2024 US [facility]OTID [facility] Non-Invasive Vascular Laboratory [facility] Carotid Duplex Bilateral/Complete Date of service/time: 10/08/2024 [...] SPANN Interpreting physician: Fazal Del Angel MD, MONE Final CC [employer] [facility] Image : [id number] DynamicsSISUID See Link below for Image Normal [facility] US THYROID/PARATHYROIDon US THYROID/PARATHYROID * * *Final Report * * * DATE OF EXAM: Oct 08 2024 2:24PM [facility] 1048 - US THYROID/PARATHYROID / PROCEDURE REASON: [...] 2 points Echogenicity: Hypoechoic, 2 points Shape: Wmihs-vrbo-tiab, 0 points Margin: Smooth, 0 points Echogenic [...] not consider stability or previous biopsy results. Pile Driver: DARRYL Transcribe Date/Time: Oct 12 2024 7:29P Dictated by : OLIVIA ESCAMILLA MD This examination was interpreted and the report reviewed and electronically signed by: OLIVIA ESCAMILLA MD on Oct 12 2024 7:31PM EST [id number] CN Normal [facility] Urinalysis complete panel (U )on 09-30-2024 Bacteria LM.HPF (Urine sed) [#/Area] Negative Normal Negative [facility] Comment on above: Order Comment: Speci men Type: URINE SPECIMENOrdering Facility: [facility] Address: [address] [place] [address] Performed By: #### 2 4356-8 ####[facility] [id number] [place] [address] [place] Bilirubin Ql (U) Negative Normal Negative [facility] Comment on above: Order Comment: Speci men Type: URINE SPECIMENOrdering Facility: [facility] Address: [address] [place] [address] Performed By: #### 2 4356-8 ####[facility] [id number] [place] [address] [place] Clarity (Unsp spec) Clear Normal Clear [facility] Comment on above: Order Comment: Speci men Type: URINE SPECIMENOrdering Facility: [facility] Address: [address] [place] [address] Performed By: #### 2 4356-8 ####[facility] LABCLIA [id number] [place] [address] [place] Color (U) Yellow Normal Yellow [facility] Comment on above: Order Comment: Speci men Type: URINE SPECIMENOrdering Facility: [facility] Address: [address] [place] [address] Performed By: #### 2 4356-8 ####[facility] LABCLIA [id number] [address] Epithelial cells LM.HPF (Urine sed) [#/Area] None Seen Normal [facility] Comment on above: Order Comment: Speci men Type: URINE SPECIMENOrdering Facility: [facility] Address: [address] [place] [address] Performed By: #### 2 4356-8 ####[facility] LABCLIA [id number] [address] OF [facility] Glucose Test strip (U) [Mass/Vol] Negative Normal Negative [facility] Comment on above: Order Comment: Speci men Type: URINE SPECIMENOrdering Facility: [facility] Address: [address] [place] [address] Performed By: #### 2 4356-8 ####[facility] LABCLIA [id number] [place] [address] [place] Hemoglobin Ql (U) Negative Normal Negative [facility] Comment on above: Order Comment: Speci men Type: URINE SPECIMENOrdering Facility: [facility] Address: [address] [place] [address] Performed By: #### 2 4356-8 ####[facility] LABCLIA [id number] [facility] [place] [address] [place] Hyaline casts (Urine sed) [#/Area] 0 /[LPF] Normal 0 /LPF [facility] Comment on above: Order Comment: Speci men Type: URINE SPECIMENOrdering Facility: [facility] Address: [address] [place] [address] Performed By: #### 2 4356-8 ####[facility] LABCLIA [id number] [place] [address] [place] Ketones Ql (U) Negative Normal Negative [facility] Comment on above: Order Comment: Speci men Type: URINE SPECIMENOrdering Facility: [facility] Address: [address] [place] [address] Performed By: #### 2 4356-8 ####[facility] LABCLIA [id number] [place] [address] [place] Leukocyte esterase Test strip Ql (U) Negative Normal Negative [facility] Comment on above: Order Comment: Speci men Type: URINE SPECIMENOrdering Facility: [facility] Address: [address] [place] [address] Performed By: #### 2 4356-8 ####[facility] LABCLIA [id number] [place] [address] [place] Nitrite Ql (U) Negative Normal Negative [facility] Comment on above: Order Comment: Speci men Type: URINE SPECIMENOrdering Facility: [facility] Address: [address] [place] [address] Performed By: #### 2 4356-8 ####[facility] [id number] [place] [address] [place] pH (U) 6.5 [pH] Normal 5.0-8.0 [facility] Comment on above: Order Comment: Speci men Type: URINE SPECIMENOrdering Facility: [facility] Address: [address] [place] [address] Performed By: #### 2 4356-8 ####[facility] LABCLIA [id number] [place] [id number] [place] Protein (U) [Mass/Vol] Negative Normal Negative [facility] Comment on above: Order Comment: Speci men Type: URINE SPECIMENOrdering Facility: [facility] Address: [address] [place] [address] Performed By: #### 2 4356-8 ####[facility]CLIA [id number] [address] [place] RBC LM.HPF (Urine sed) [#/Area] 0-2 /HPF Normal 0-2 /HPF [facility] Comment on above: Order Comment: Speci men Type: URINE SPECIMENOrdering Facility: [facility] Address: [address] [place] [address] Performed By: #### 2 4356-8 ####[facility]IA [id number] [place] [address] [place] Specific gravity (U) [Rel density] 1.009 Normal 1.005-1.030 [facility] Comment on above: Order Comment: Speci men Type: URINE SPECIMENOrdering Facility: [facility] Address: [address] [place] [address] Performed By: #### 2 4356-8 ####[facility]IA [id number] [address] [place] Urobilinogen Ql (U) 0.2 EU/dL Normal 0.2-1.0 EU/dL [facility] Comment on above: Order Comment: Speci men Type: URINE SPECIMENOrdering Facility: [facility] Address: [address] [place] [address] Performed By: #### 2 4356-8 ####[facility] [id number] [place] [address] [place] WBC LM.HPF (Urine sed) [#/Area] 0-5 /HPF Normal 0-5 /HPF [facility] Comment on above: Order Comment: Speci men Type: URINE SPECIMENOrdering Facility: [facility] Address: [address] [place] [address] Performed By: #### 2 4356-8 ####[facility] [id number] [place] [address] [place] 25([facility])D3 [facility] 25-hydroxyvitamin D3 [Mass/Vol] 40.8 ng/mL Normal 31.0-80.0 [facility] Comment on above: Order Comment: Speci men Type: BLOOD SPECIMEN [facility] Address: [address] [place] [address] Result Comment: Clas sification of 25 [place] Vitamin D status: Deficiency/Insufficiency: < or = 30 ng/ml. Sufficiency/Optimal Levels: 31-80 ng/mL Toxicity: > 100 ng/mL. Test performed by chemiluminescent immunoassay. Performed By: #### 1 989-3 #### [facility] CLIA [id number] [address] [place] [address] [place] [address] [place] CBC W Auto Differential pane l (Bld)on 09-17-2024 Basophils (Bld) [#/Vol] 0.03 10*3/uL [facility] Basophils/100 WBC (Bld) 0.3 % [facility] Differential cell count method Nom (Bld) Auto [facility] Eosinophils (Bld) [#/Vol] 0.08 10*3/uL [facility] Eosinophils/100 WBC (Bld) 0.9 % [facility] Erythrocyte distribution width (RBC) [Ratio] 13.4 % 11.5 - 15.0 % [facility] Hematocrit (Bld) [Volume fraction] 37.3 % 36.0 - 46.0 % [facility] Hemoglobin (Bld) [Mass/Vol] 11.9 g/dL 11.5 - 15.5 g/dL [facility] Immature granulocytes (Bld) [#/Vol] 0.05 10*3/uL [facility] Immature granulocytes/100 WBC (Bld) 0.5 % [facility] Lymphocytes (Bld) [#/Vol] 2.24 10*3/uL [facility] Lymphocytes/100 WBC (Bld) 24.2 % [facility] MCH (RBC) [Entitic mass] 29.4 pg 26.0 - 34.0 pg [facility] MCHC (RBC) [Mass/Vol] 31.9 g/dL 30.5 - 36.0 g/dL [facility] MCV (RBC) [Entitic vol] 92.1 fL 80.0 - 100.0 fL [facility] Monocytes (Bld) [#/Vol] 0.75 10*3/uL [facility] Monocytes/100 WBC (Bld) 8.1 % [facility] Neutrophils (Bld) [#/Vol] 6.11 10*3/uL [facility] Neutrophils/100 WBC (Bld) 66 % [facility] Nucleated RBC (Bld) [#/Vol] NINF [facility] Nucleated RBC/100 WBC (Bld) [Ratio] 0 % /100 WBC [facility] Platelet mean volume (Bld) [Entitic vol] 9.6 fL 9.0 - 12.7 fL [facility] Platelets (Bld) [#/Vol] 293 10*3/uL [facility] RBC (Bld) [#/Vol] 4.05 10*6/uL 3.90 - 5.2 0 m/uL [facility] WBC (Bld) [#/Vol] 9.26 10*3/uL [facility] Basophils (Bld) [#/Vol] 0.03 10*3/uL Normal <0.11 [facility] Comment on above: Order Comment: Speci men Type: BLOOD SPECIMENOrdering Facility: [facility] Address: [address] [place] [address] Performed By: #### 5 7021-8 ####[facility] LABCLIA [id number] [place] [address] [place] Basophils/100 WBC (Bld) 0.3 % Normal [facility] Comment on above: Order Comment: Speci men Type: BLOOD SPECIMENOrdering Facility: [facility] Address: [address] [place] [address] Performed By: #### 5 7021-8 ####[facility] LABCLIA [id number] [place] [address] [place] Differential cell count method Nom (Bld) Auto Normal [facility] Comment on above: Order Comment: Speci men Type: BLOOD SPECIMENOrdering Facility: [facility] Address: [address] [place] [address] Performed By: #### 5 7021-8 ####[facility] LABCLIA [id number] [address] [place] [address] [place] Eosinophils (Bld) [#/Vol] 0.08 10*3/uL Normal <0.46 [facility] Comment on above: Order Comment: Speci men Type: BLOOD SPECIMENOrdering Facility: [facility] Address: [address] [place] [address] Performed By: #### 5 7021-8 ####[facility] LABCLIA [id number] [address], [place] [address] [place] Eosinophils/100 WBC (Bld) 0.9 % Normal [facility] Comment on above: Order Comment: Speci men Type: BLOOD SPECIMENOrdering Facility: [facility] Address: [address] [place] [address] Performed By: #### 5 7021-8 ####[facility]CLIA [id number] [address], [place] [address] [place] Erythrocyte distribution width (RBC) [Ratio] 13.4 % Normal 11.5-15.0 [facility] Comment on above: Order Comment: Speci men Type: BLOOD SPECIMENOrdering Facility: [facility] Address: [address] [place] [address] Performed By: #### 5 7021-8 ####[facility]CLIA [id number] [address], [place] [address] [place] Hematocrit (Bld) [Volume fraction] 37.3 % Normal 36.0-46.0 [facility] Comment on above: Order Comment: Speci men Type: BLOOD SPECIMENOrdering Facility: [facility] Address: [address] [place] [address] Performed By: #### 5 7021-8 ####[facility]CLIA [id number] [address] [place] [address] [place] Hemoglobin (Bld) [Mass/Vol] 11.9 g/dL Normal 11.5-15.5 [facility] Comment on above: Order Comment: Speci men Type: BLOOD SPECIMENOrdering Facility: [facility] Address: [address] [place] [address] Performed By: #### 5 7021-8 ####[facility] LABCLIA [id number] [place] [id number] [place] Immature granulocytes (Bld) [#/Vol] 0.05 10*3/uL Normal <0.10 [facility] Comment on above: Order Comment: Speci men Type: BLOOD SPECIMENOrdering Facility: [facility] Address: [address] [place] [address] Performed By: #### 5 7021-8 ####[facility] LABCLIA [id number] [place] [address] [place] Immature granulocytes/100 WBC (Bld) 0.5 % Normal [facility] Comment on above: Order Comment: Speci men Type: BLOOD SPECIMENOrdering Facility: [facility] Address: [address] [place] [address] Performed By: #### 5 7021-8 ####[facility] LABCLIA [id number] [place] [address] [place] Lymphocytes (Bld) [#/Vol] 2.24 10*3/uL Normal 1.00-4.00 [facility] Comment on above: Order Comment: Speci men Type: BLOOD SPECIMENOrdering Facility: [facility] Address: [address] [place] [address] Performed By: #### 5 7021-8 ####[facility]CLIA [id number] [place] [address] [place] Lymphocytes/100 WBC (Bld) 24.2 % Normal [facility] Comment on above: Order Comment: Speci men Type: BLOOD SPECIMENOrdering Facility: [facility] Address: [address] [place] [address] Performed By: #### 5 7021-8 ####[facility]IA [id number] [place] [address] [place] MCH (RBC) [Entitic mass] 29.4 pg Normal 26.0-34.0 [facility] Comment on above: Order Comment: Speci men Type: BLOOD SPECIMENOrdering Facility: [facility] Address: [address] [place] [address] Performed By: #### 5 7021-8 ####[facility] [id number] [place] [address] [place] MCHC (RBC) [Mass/Vol] 31.9 g/dL Normal 30.5-36.0 [facility] Comment on above: Order Comment: Speci men Type: BLOOD SPECIMENOrdering Facility: [facility] Address: [address] [place] [address] Performed By: #### 5 7021-8 ####[facility] [id number] [place] [address] [place] MCV (RBC) [Entitic vol] 92.1 fL Normal 80.0-100.0 [facility] Comment on above: Order Comment: Speci men Type: BLOOD SPECIMENOrdering Facility: [facility] Address: [address] [place] [address] Performed By: #### 5 7021-8 ####[facility] [id number] [place] [address] [place] Monocytes (Bld) [#/Vol] 0.75 10*3/uL Normal <0.87 [facility] Comment on above: Order Comment: Speci men Type: BLOOD SPECIMENOrdering Facility: [facility] Address: [address] [place] [address] Performed By: #### 5 7021-8 ####[facility] [id number] [place] [address] [address] [place] Monocytes/100 WBC (Bld) 8.1 % Normal [facility] Comment on above: Order Comment: Speci men Type: BLOOD SPECIMENOrdering Facility: [facility] Address: [address] [place] [address] Performed By: #### 5 7021-8 ####[facility] LABCLIA [id number] [address] [address] [place] Neutrophils (Bld) [#/Vol] 6.11 10*3/uL Normal 1.45-7.50 [facility] Comment on above: Order Comment: Speci men Type: BLOOD SPECIMENOrdering Facility: [facility] Address: [address] [place] [address] Performed By: #### 5 7021-8 ####[facility]CLIA [id number] [place] [address] [place] Neutrophils/100 WBC (Bld) 66.0 % Normal [facility] Comment on above: Order Comment: Speci men Type: BLOOD SPECIMENOrdering Facility: [facility] Address: [address] [place] [address] Performed By: #### 5 7021-8 ####[facility] LABCLIA [id number] [place] [address] [place] Nucleated RBC (Bld) [#/Vol] 10*3/uL Normal <0.01 [facility] Comment on above: Order Comment: Speci men Type: BLOOD SPECIMENOrdering Facility: [facility] Address: [address] [place] [address] Performed By: #### 5 7021-8 ####[facility] LABCLIA [id number] [place] [address] [place] Nucleated RBC/100 WBC (Bld) [Ratio] 0.0 /100 WBC Normal [facility] Comment on above: Order Comment: Speci men Type: BLOOD SPECIMENOrdering Facility: [facility] Address: [address] [place] [address] Performed By: #### 5 7021-8 ####[facility]CL[facility] [id number] [place] [address] [place] Platelet mean volume (Bld) [Entitic vol] 9.6 fL Normal 9.0-12.7 [facility] [facility] Comment on above: Order Comment: Speci men Type: BLOOD SPECIMENOrdering Facility: [facility] Address: [address] [place] [address] Performed By: #### 5 7021-8 ####[facility] LABIA [id number] [place] [address] [place] Platelets (Bld) [#/Vol] 293 10*3/uL Normal 150-400 [facility] Comment on above: Order Comment: Speci men Type: BLOOD SPECIMENOrdering Facility: [facility] Address: [address] [place] [address] Performed By: #### 5 7021-8 ####[facility] [id number] [place] [address] [place] RBC (Bld) [#/Vol] 4.05 10*6/uL Normal 3.90-5.20 [facility] Comment on above: Order Comment: Speci men Type: BLOOD SPECIMENOrdering Facility: [facility] Address: [address] [place] [address] Performed By: #### 5 7021-8 ####[facility] LABCLIA [id number] [place] [id number] [place] WBC (Bld) [#/Vol] 9.26 10*3/uL Normal 3.70-11.00 [facility] Comment on above: Order Comment: Speci men Type: BLOOD SPECIMENOrdering Facility: [facility] Address: [address] [place] [address] Performed By: #### 5 7021-8 ####[facility] LABCLIA [id number] [place] [id number] [employer] [facility] CNOVon 09-17-2024 CNOV Office Visit (FAMPWS) SPENSER PUTNAM ([id number]) 1940 F Date Time Provider Department 09/17/24 8:40 AM JUAN SPANN FAMPWS During your visit today, we recorded [...] General (Family Medicine) Sujatha Saldana APRN.CNP as Braid Maker (Family Medicine) Destini Lay PA-C as Braid Maker (Family Medicine) Medical/Family history review Reviewed and [...] L 4-5 (more content not included)... Normal [facility] Comprehensive metabolic 2000 panelon 09-17-2024 Albumin [Mass/Vol] 3.9 g/dL Normal 3.9-4.9 [facility] Comment on above: Order Comment: Speci men Type: URINE SPECIMEN [facility] Address: [address] [place] [address] Performed By: #### 2 4356-8 #### [facility] CLIA [id number] [address] [place] [address] [place] ALP [Catalytic activity/Vol] 110 U/L Normal 34-123 [facility] Comment on above: Order Comment: Speci men Type: URINE SPECIMEN [facility] Address: [address] [place] [address] Performed By: #### 2 4356-8 #### [facility] CLIA [id number] [address] [place] [address] [place] ALT [Catalytic activity/Vol] 11 U/L Normal 7-38 [facility] Comment on above: Order Comment: Speci men Type: URINE SPECIMEN [facility] Address: [address] [place] [address] Performed By: #### 2 4356-8 #### [facility] CLIA [id number] [address] [place] [address] [place] Anion gap [Moles/Vol] 11 mmol/L Normal 8-15 [facility] Comment on above: Order Comment: Speci men Type: URINE SPECIMEN [facility] Address: [address] [place] [address] Performed By: #### 2 4356-8 #### [facility] CLIA [id number] [address] [place] [address] [place] AST [Catalytic activity/Vol] 17 U/L Normal 13-35 [facility] Comment on above: Order Comment: Speci men Type: URINE SPECIMEN [facility] Address: [address] [place] [address] Performed By: #### 2 4356-8 #### [facility] CLIA [id number] [address] [place] [address] [place] Bilirubin [Mass/Vol] 0.3 mg/dL Normal 0.2-1.3 [facility] Comment on above: Order Comment: Speci men Type: URINE SPECIMEN [facility] Address: [address] [place] [address] Performed By: #### 2 4356-8 #### [facility] CLIA [id number] [address] [place] [address] [place] Calcium [Mass/Vol] 10.2 mg/dL Normal 8.5-10.2 [facility] Comment on above: Order Comment: Speci men Type: URINE SPECIMEN [facility] Address: [address] [place] [address] Performed By: #### 2 4356-8 #### [facility] CLIA [id number] [address] [place] [address] [place] Chloride [Moles/Vol] 101 mmol/L Normal 98-107 [facility] Comment on above: Order Comment: Speci men Type: URINE SPECIMEN [facility] Address: [address] [place] [address] Performed By: #### 2 4356-8 #### [facility] CLIA [id number] [address] [place] [address] [place] CO2 [Moles/Vol] 22 mmol/L Normal 22-30 [facility] Comment on above: Order Comment: Speci men Type: URINE SPECIMEN [facility] Address: [address] [place] [address] Performed By: #### 2 4356-8 #### [facility] CLIA [id number] [address] [place] [address] [place] Creatinine [Mass/Vol] 0.80 mg/dL Normal 0.58-0.96 [facility] Comment on above: Order Comment: Speci men Type: URINE SPECIMEN [facility] Address: [address] [place] [address] Performed By: #### 2 4356-8 #### [facility] CLIA [id number] [address] [place] [address] [place] Creatinine and Glomerular filtration rate.predicted panel (S/P/Bld) 73 mL/min/1.73m??? Normal >=60 [facility] Comment on above: Order Comment: Speci men Type: URINE SPECIMEN [facility] Address: [address] [place] [address] Result Comment: Cici mated Glomerular Filtration Rate [...] GFR. Performed By: #### 2 4356-8 #### [facility] CLIA [id number] [address] [place] [address] [place] Glucose [Mass/Vol] 73 mg/dL Low 74-99 [facility] Comment on above: Order Comment: Speci men Type: URINE SPECIMEN [facility] Address: [address] [place] [address] Result Comment: The [place] Diabetes Association (ADA) provides guidance for cutoff [...] Standards of Medical Care in Diabetes 2016, [place] [employer] Association. Diabetes Care. 2016.39(Suppl 1). Performed By: #### 2 4356-8 #### [facility] CLIA [id number] [address] [place] [address] [place] Potassium [Moles/Vol] 3.9 mmol/L Normal 3.7-5.1 [facility] Comment on above: Order Comment: Speci men Type: URINE SPECIMEN [facility] Address: [address] [place] [address] Performed By: #### 2 4356-8 #### [facility] CLIA [id number] [address] [place] [address] [place] Protein [Mass/Vol] 7.4 g/dL Normal 6.3-8.0 [facility] Comment on above: Order Comment: Speci men Type: URINE SPECIMEN [facility] Address: [address] [place] [address] Performed By: #### 2 4356-8 #### [facility] CLIA [id number] [address] [place] [address] [place] Sodium [Moles/Vol] 134 mmol/L Low 136-144 [facility] Comment on above: Order Comment: Speci men Type: URINE SPECIMEN [facility] Address: [address] [place] [address] Performed By: #### 2 4356-8 #### [facility] CLIA [id number] [address] [place] [address] [place] Urea nitrogen [Mass/Vol] 11 mg/dL Normal 7-21 [facility] Comment on above: Order Comment: Speci men Type: URINE SPECIMEN [facility] Address: [address] [place] [address] Performed By: #### 2 4356-8 #### [facility] CLIA [id number] [address] [place] [address] [place] Magnesium SerPl-mCncon 09-17 Magnesium [Mass/Vol] 1.7 mg/dL Normal 1.7-2.3 [facility] Comment on above: Order Comment: Speci men Type: URINE SPECIMEN [facility] Address: [address] [place] [address] Performed By: #### 2 4356-8 #### [facility] CLIA [id number] [address] [place] [address] [place] TSH SerPl-aCncon 09-17-2024 TSH Qn 2.700 m[IU]/L Normal 0.270-4.200 [facility] Comment on above: Order Comment: Speci men Type: URINE SPECIMEN [facility] Address: [address] [place] [address] Performed By: #### 2 4356-8 #### [facility] CLIA [id number] [address] [place] [address] [place] Vit B12 SerPl-mCncon 025 Cobalamin (Vitamin B12) [Mass/Vol] 589 pg/mL Normal 232-1245 [facility] Comment on above: Order Comment: Speci men Type: URINE SPECIMEN [facility] Address: [address] [place] [address] Performed By: #### 2 4356-8 #### [facility] CLIA [id number] [address] [place] [address] [place] FL FLUORO IMAGES NO CHARGEon 06-24-2024 FL FLUORO IMAGES NO CHARGE These images are not reportable by radiology and will not be interpreted by Radiologists. Normal [facility] XR tomography Unspecified tom dy regionon 06-24-2024 These images are not reportable by radiology and will not be interpreted by Radiologists. IMAGING Comprehensive metabolic 2000 panelon 06-18-2024 Albumin [Mass/Vol] 3.9 g/dL Normal 3.9-4.9 [facility] Comment on above: Order Comment: Speci men Type: URINE SPECIMEN [facility] Address: [address] [place] [address] Performed By: #### 2 4356-8 #### [facility] CLIA [id number] [address] [place] [address] [place] ALP [Catalytic activity/Vol] 107 U/L Normal 34-123 [facility] Comment on above: Order Comment: Speci men Type: URINE SPECIMEN [facility] Address: [address] [place] [address] Performed By: #### 2 4356-8 #### [facility] CLIA [id number] [address] [place] [address] [place] ALT [Catalytic activity/Vol] 7 U/L Normal 7-38 [facility] Comment on above: Order Comment: Speci men Type: URINE SPECIMEN [facility] Address: [address] [place] [address] Performed By: #### 2 4356-8 #### [facility] CLIA [id number] [address] [place] [address] [place] Anion gap [Moles/Vol] 7 mmol/L Low 8-15 [facility] Comment on above: Order Comment: Speci men Type: URINE SPECIMEN [facility] Address: [address] [place] [address] Performed By: #### 2 4356-8 #### [facility] CLIA [id number] [address] [place] [address] [place] AST [Catalytic activity/Vol] 13 U/L Normal 13-35 [facility] Comment on above: Order Comment: Speci men Type: URINE SPECIMEN [facility] Address: [address] [place] [address] Performed By: #### 2 4356-8 #### [facility] CLIA [id number] [address] [place] [address] [place] Bilirubin [Mass/Vol] 0.2 mg/dL Normal 0.2-1.3 [facility] Comment on above: Order Comment: Speci men Type: URINE SPECIMEN [facility] Address: [address] [place] [address] Performed By: #### 2 4356-8 #### [facility] CLIA [id number] [address] [place] [address] [place] Calcium [Mass/Vol] 9.8 mg/dL Normal 8.5-10.2 [facility] Comment on above: Order Comment: Speci men Type: URINE SPECIMEN [facility] Address: [address] [place] [address] Performed By: #### 2 4356-8 #### [facility] CLIA [id number] [address] [place] [address] [place] Chloride [Moles/Vol] 102 mmol/L Normal 98-107 [facility] Comment on above: Order Comment: Speci men Type: URINE SPECIMEN [facility] Address: [address] [place] [address] Performed By: #### 2 4356-8 #### [facility] CLIA [id number] [address] [place] [address] [place] CO2 [Moles/Vol] 25 mmol/L Normal 22-30 [facility] Comment on above: Order Comment: Speci men Type: URINE SPECIMEN [facility] Address: [address] [place] [address] Performed By: #### 2 4356-8 #### [facility] CLIA [id number] [address] [place] [address] [place] Creatinine [Mass/Vol] 0.85 mg/dL Normal 0.58-0.96 [facility] Comment on above: Order Comment: Eliana escobedo Type: URINE SPECIMEN [facility] Address: [address] [place] [address] Performed By: #### 2 4356-8 #### [facility] CLIA [id number] [address] [place] [address] [place] Creatinine and Glomerular filtration rate.predicted panel (S/P/Bld) 68 mL/min/1.73m??? Normal >=60 [facility] Comment on above: Order Comment: Eliana escobedo Type: URINE SPECIMEN [facility] Address: [address] [place] [address] Result Comment: Cici mated Glomerular Filtration Rate [...] GFR. Performed By: #### 2 4356-8 #### [facility] CLIA [id number] [address] [place] [address] [place] Glucose [Mass/Vol] 119 mg/dL High 74-99 [facility] Comment on above: Order Comment: Eliana escobedo Type: URINE SPECIMEN [facility] Address: [address] [place] [address] Result Comment: The [place] Diabetes Association (ADA) provides guidance for cutoff [...] Standards of Medical Care in Diabetes 2016, [place] [employer]. Diabetes Care. 2016.39(Suppl 1). Performed By: #### 2 4356-8 #### [facility] CLIA [id number] [address] [place] [address] [place] Potassium [Moles/Vol] 3.7 mmol/L Normal 3.7-5.1 [facility] Comment on above: Order Comment: Speci men Type: URINE SPECIMEN [facility] Address: [address] [place] [address] Performed By: #### 2 4356-8 #### [facility] CLIA [id number] [address] [place] [address] [place] Protein [Mass/Vol] 6.8 g/dL Normal 6.3-8.0 [facility] Comment on above: Order Comment: Speci men Type: URINE SPECIMEN [facility] Address: [address] [place] [address] Performed By: #### 2 4356-8 #### [facility] CLIA [id number] [address] [place] [address] [place] Sodium [Moles/Vol] 134 mmol/L Low 136-144 [facility] Comment on above: Order Comment: Speci men Type: URINE SPECIMEN [facility] Address: [address] [place] [address] Performed By: #### 2 4356-8 #### [facility] CLIA [id number] [address] [place] [address] [place] Urea nitrogen [Mass/Vol] 16 mg/dL Normal 7-21 [facility] Comment on above: Order Comment: Speci men Type: URINE SPECIMEN [facility] Address: [address] [place] [address] Performed By: #### 2 4356-8 #### [facility] CLIA [id number] [address] [place] [address] [place] CNPNon 04-10-2025 [facility] Telephone (FAMWS) SPENSER PUTNAM ([id number]) 1940 F Date Time Provider Department 06/17/24 [facility] visit today, we recorded the following information about you: Jonas Milan LPN 06/17/2024 9:29 AM Signed Pt's daughter calling advising that pt had pre-op labs done yesterday at [facility]. Had a BMP and CBC completed. Wanting [...] - Fully Assessed Reason for Visit: Question [0677] Prescriptions as of 06/17/2024 - rOPINIRole (REQUIP) [...] 06/23/2006 Routine general medical examination at a [facility]*08/24/2008 07/29/2011 Class: Chronic Routine gynecological examination [...] radiculopathy [M5 (more content not included)... Normal [facility] TRANSTHORACIC ECHO (TTE) COM PLETEon 06-17-2024 TRANSTHORACIC ECHO (TTE) COMPLETE [facility], [address], [place], [place] [address] and TRANSTHORACIC ECHOCARDIOGRAM REPORT Patient Name: SPENSER PUTNAM Reading Physician: [id number] Jude Barnett MD Study Date: 06/17/2024 Ordering Provider: [id number] NAOMI OMERO MRN/PID: [id number] Fellow: Nurse: Date of /Age: 912/07/1940 Instrument Calibrator: Arabella Enrique RDCS years Gender assigned at F Additional Staff: : Height: 157.48 cm Admit Date: Weight: 63.96 kg Admission Status: Outpatient BSA / BMI: 1.65 m2 / 25.79 kg/m2 Blood Pressure: 122/75 mmHg Department Location: [facility] Study Type: TRANSTHORACIC ECHO (TTE) COMPLETE Diagnosis/ICD: Cardiac murmur, unspecified-R01.1 Indication: Systolic murmur CPT Code: Echo Complete w Full Doppler-[id number] Patient History: Pertinent History: Systolic murmur, HTN, [...] LA Area A2C: 17.3 cm2 [place] [employer] A4C: 4.5 cm [place] [employer] A2C: 5.3 cm LA Volume Index: 27.2 ml/m2 LA Vol A4C: 32.7 ml LA Vol A2C: 45.1 ml LA Vol Index BSA: 23.6 ml/m2 RIGHT ATRIUM: Normal Ranges: RA Vol A4C: 21.0 ml (8.3-19.5ml) RA Vol Index A4C: 12.7 ml/m2 RA Area A4C: 10.3 cm2 RA [employer] A4C: 4.3 cm M-MODE MEASUREMENTS: Normal Ranges: [...] LVOT Tamela (more content not included)... Normal [facility] Basic metabolic 2000 panelon 06-16-2024 Anion gap [Moles/Vol] 12 mmol/L Normal 10-20 [facility] Comment on above: Performed By: #### 2 4321-2 #### MAKI Alfonso ([id number]) [facility] ([facility]) [address] [place] [address] Calcium [Mass/Vol] 9.2 mg/dL Normal 8.6-10.6 [facility] Comment on above: Performed By: #### 2 4321-2 #### MAKI CLEVELAND L ([id number]) [facility] ([facility]) [address] [place] [address] Chloride [Moles/Vol] 101 mmol/L Normal 98-107 [facility] Comment on above: Performed By: #### 2 4321-2 #### MAKI CLEVELAND L ([id number]) [facility] ([facility]) [address] [place] [address] CO2 [Moles/Vol] 26 mmol/L Normal 21-[address] [facility] Comment on above: Performed By: #### 2 4321-2 #### MAKI CLEVELAND L ([id number]) [facility] ([facility]) [address] [place] [address] Creatinine [Mass/Vol] 0.95 mg/dL Normal 0.50-1.05 [facility] Comment on above: Performed By: #### 2 4321-2 #### MAKI CLEVELAND L ([id number]) [facility] ([facility]) [id number] [place] [address] Glomerular filtration rate/1.73 sq M.predicted 60 mL/min/1.73m*2 Low >60 [facility] Comment on above: Result Comment: Calc ulations of estimated GFR are performed using the 2020 CKD-EPI Study Refit equation without the race variable for the IDMS-Traceable creatinine methods. https://jasn.asnjournals.org/content/early/ASN.2020 082513 Performed By: #### 2 4321-2 #### MAKI CLEVELAND L ([id number]) [facility] ([facility]) [address] [place] [address] Glucose [Mass/Vol] 82 mg/dL Normal 74-99 [facility] Comment on above: Performed By: #### 2 4321-2 #### MAKI Alfonso ([id number]) [facility] ([facility]) [address] [place] [address] Potassium [Moles/Vol] 4.0 mmol/L Normal 3.5-5.3 [facility] Comment on above: Performed By: #### 2 4321-2 #### MAKI Alfonso ([id number]) [facility] ([facility]) [address] [place] [address] Sodium [Moles/Vol] 135 mmol/L Low 136-145 [facility] Comment on above: Performed By: #### 2 4321-2 #### MAKI Alfonso ([id number]) [facility] ([facility]) [address] [place] [address] Urea nitrogen [Mass/Vol] 14 mg/dL Normal 6-23 [facility] Comment on above: Performed By: #### 2 4321-2 #### MAKI Alfonso ([id number]) [facility] ([facility]) [id number] [place] [address] Blood type and Indirect anti body screen panel (Bld)on 06-16-2024 ABO group Nom (Bld) A Normal [facility] Comment on above: Performed By: #### 3 4532-2 #### MAKI Alfonso ([id number]) [facility] ([facility]) [id number] [place] [address] Blood group antibody screen Ql Negative [facility] Comment on above: Result Comment: 2nd ABO test required. Order and Collect VERAB Performed By: #### 3 4532-2 #### MAKI Alfonso ([id number]) [facility] ([facility]) [address] [place] [address] D Ag Ql (Bld) Positive [facility] Comment on above: Performed By: #### 3 4532-2 #### MAKI Alfonso ([id number]) [facility] ([facility]) [id number] [place] [address] CBC panel Auto (Bld)on 06-16 Erythrocyte distribution width (RBC) [Ratio] 12.5 % Normal 11.5-14.5 [facility] Comment on above: Performed By: #### 5 8410-2 #### MAKI Alfonso ([id number]) [facility] ([facility]) [address] [place] [address] Hematocrit (Bld) [Volume fraction] 35.6 % Low 36.0-46.0 [facility] Comment on above: Performed By: #### 5 8410-2 #### MAKI Alfonso ([id number]) [facility] ([facility]) [address] [place] [address] Hemoglobin (Bld) [Mass/Vol] 11.8 g/dL Low 12.0-16.0 [facility] Comment on above: Performed By: #### 5 8410-2 #### MAKI Alfonso ([id number]) [facility] ([facility]) [address] [place] [address]306 MCH (RBC) [Entitic mass] 30.3 pg Normal 26.0-34.0 [facility] Comment on above: Performed By: #### 5 8410-2 #### MAKI Alfonso ([id number]) [facility] ([facility]) [address] [place] [address]23 MCHC (RBC) [Mass/Vol] 33.1 g/dL Normal 32.0-36.0 [facility] Comment on above: Performed By: #### 5 8410-2 #### MAKI Alfonso ([id number]) [facility] ([facility]) [address] [place] [address] 28237 MCV (RBC) [Entitic vol] 91 fL Normal 80-100 [facility] Comment on above: Performed By: #### 5 8410-2 #### MAKI Alfonso ([id number]) [facility] ([facility]) [address] [place] [address] 75708 Nucleated RBC/100 WBC (Bld) [Ratio] 0.0 /100 WBCs Normal 0.0-0.0 [facility] Comment on above: Performed By: #### 5 8410-2 #### MAKI Alfonso ([id number]) [facility] ([facility]) [address] [place] [address] Platelets (Bld) [#/Vol] 239 x10*3/uL Normal 150-450 [facility] Comment on above: Performed By: #### 5 8410-2 #### MAKI Alfonso ([id number]) [facility] ([facility]) [address] [place] [address] RBC (Bld) [#/Vol] 3.90 x10*6/uL Low 4.00-5.20 [facility] Comment on above: Performed By: #### 5 8410-2 #### MAKI Alfonso ([id number]) [facility] ([facility]) [address] [place] [address] WBC (Bld) [#/Vol] 6.7 x10*3/uL Normal 4.4-11.3 [facility] Comment on above: Performed By: #### 5 8410-2 #### MAKI Alfonso ([id number]) [facility] ([facility]) [address] [place] [address] ECG 12-LEADon 06-16-2024 ECG 12-LEAD Ventricular Rate 81 Atrial Rate 81 P-R Interval 162 QRS Duration 84 Q-T Interval 362 QTC Calculation(Bazett) [address] [employer] [address] [employer] [address] [employer] [place] 48 QRS Count 13 Q Onset 223 P Onset 142 P Offset 198 T Offset 404 QTC Fredericia 400 Diagnosis Normal sinus rhythm Low voltage QRS Borderline ECG No previous ECGs available Confirmed by Gerardo Escobar ([id number]) on 06/22/2024 8:13:57 PM Normal [facility] HbA1c (Bld) [Mass fraction]o n 06-16-2024 Average glucose Estimated from glycated hemoglobin (Bld) [Mass/Vol] 97 mg/dL Normal Not Established [facility] Comment on above: Order Comment: Diagn osis of Diabetes-Adults Non-Diabetic: < or = 5.6% Increased risk for developing diabetes: 5.7-6.4% Diagnostic of diabetes: > or = 6.5% Performed By: #### 4 548-4 #### MAKI Alfonso ([id number]) [facility] ([facility]) [address] [place], [place] [address] Hemoglobin A1c/Hemoglobin.to terry 06-16-2024 HbA1c (Bld) [Mass fraction] 5.0 % Normal See comment [facility] Comment on above: Order Comment: Diagn osis of Diabetes-Adults Non-Diabetic: < or = 5.6% Increased risk for developing diabetes: 5.7-6.4% Diagnostic of diabetes: > or = 6.5% Performed By: #### 4 548-4 #### MAKI Alfonso ([id number]) [facility] ([facility]) [address] [place], [place] [address] Staphylococcus aureus.methic illin resistant isolateon 06-16-2024 MRSA isol Org specific cx Ql (Nose) Test: Staphylococcus aureus/MRSA colonization, Culture Specimen Source: Nares/Axilla/Groin Specimen Type: Swab Specimen Date: 06/16/20241544 Result Date: 06/18/2024919 Result Status: Final result Abnormal: No Resulting Lab: [facility] [address] [place] [address] CULTURE No Staphylococcus aureus isolated Normal [facility] Comment on above: Performed By: #### 5 2969-3 #### MAKI Alfonso ([id number]) [facility] ([facility]) [address] [place] [address] Basic metabolic 2000 panelon 06-07-2024 Anion gap [Moles/Vol] 9 mmol/L Normal 8-15 [facility] Comment on above: Order Comment: Speci men Type: BLOOD SPECIMENOrdering Facility: [facility] Address: [address] [place] [address] Performed By: #### 2 4321-2 ####[facility] [id number] [place] [address] [place] Calcium [Mass/Vol] 10.1 mg/dL Normal 8.5-10.2 [facility] Comment on above: Order Comment: Speci men Type: BLOOD SPECIMENOrdering Facility: [facility] Address: [address] [place] [address] Performed By: #### 2 4321-2 ####[facility] MILLWNCLIA [id number] [place] [address] [place] Chloride [Moles/Vol] 104 mmol/L Normal 98-107 [facility] Comment on above: Order Comment: Speci men Type: BLOOD SPECIMENOrdering Facility: [facility] Address: [address] [place] [address] Performed By: #### 2 4321-2 ####[facility] H[facility]ITALLIA [id number] [place] [address] [place] CO2 [Moles/Vol] 22 mmol/L Normal 22-30 [facility] Comment on above: Order Comment: Speci men Type: BLOOD SPECIMENOrdering Facility: [facility] Address: [address] [place] [address] Performed By: #### 2 4321-2 ####[facility] H[facility]IT[facility]IA [id number] [place] [address] [place] Creatinine [Mass/Vol] 1.00 mg/dL High 0.58-0.96 [facility] Comment on above: Order Comment: Speci men Type: BLOOD SPECIMENOrdering Facility: [facility] Address: [address] [place] [address] Performed By: #### 2 4321-2 ####[facility]ITALNCLIA [id number] [place] [address] [place] Creatinine and Glomerular filtration rate.predicted panel (S/P/Bld) 56 mL/min/1.73m??? Low >=60 [facility] Comment on above: Order Comment: Eliana escobedo Type: BLOOD SPECIMENOrdering Facility: [facility] Address: [address] [place] [address] Result Comment: Cici mated Glomerular Filtration Rate [...] actual GFR. Performed By: #### 2 4321-2 ####[facility] [id number] [place] [address] [place] Glucose [Mass/Vol] 85 mg/dL Normal 74-99 [facility] Comment on above: Order Comment: Eliana escobedo Type: BLOOD SPECIMENOrdering Facility: [facility] Address: [address] [place] [address] Result Comment: The [place] Diabetes Association (ADA) provides guidance for cutoff [...] Standards of Medical Care in Diabetes 2016, [place] Diabetes Association. Diabetes Care. 2016.39(Suppl 1). Performed By: #### 2 4321-2 ####[facility] [id number] [place] [address] [place] Potassium [Moles/Vol] 5.4 mmol/L High 3.7-5.1 [facility] Comment on above: Order Comment: Speci men Type: BLOOD SPECIMENOrdering Facility: [facility] Address: [address] [place] [address] Performed By: #### 2 4321-2 ####[facility] HOSPITALNICLIA [id number] [place] [address] [place] Sodium [Moles/Vol] 135 mmol/L Low 136-144 [facility] Comment on above: Order Comment: Speci men Type: BLOOD SPECIMENOrdering Facility: [facility] Address: [address] [place] [address] Performed By: #### 2 4321-2 ####[facility]ITALLI [id number] [place] [address] [place] Urea nitrogen [Mass/Vol] 19 mg/dL Normal 7-21 [facility] Comment on above: Order Comment: Speci men Type: BLOOD SPECIMENOrdering Facility: [facility] Address: [address] [place] [address] Performed By: #### 2 4321-2 ####[facility]ITALLIA [id number] [place] [address] [place] Basic metabolic 2000 panelon 06-03-2024 Anion gap [Moles/Vol] 12 mmol/L 8 - 15 mmol/L [facility] Calcium [Mass/Vol] 9.9 mg/dL 8.5 - 10. 2 mg/dL [facility] Chloride [Moles/Vol] 103 mmol/L 98 - 10 7 mmol/L [facility] CO2 [Moles/Vol] 19 mmol/L Low 22 - 30 mmol/L [facility] Creatinine [Mass/Vol] 1.12 mg/dL High 0.58 - 0.96 mg/dL [facility] GFR/1.73 sq M.predicted among non-blacks MDRD (S/P/Bld) [Vol rate/Area] 49 mL/min/{1.73_m2} Low - PINF [facility] Comment on above: Estimated Glomerular Filtration [...] 73 mg/dL Low 74 - 99 mg/dL [facility] Comment on above: The [place] Diabete s Association (ADA) provides guidance for [...] Standards of Medical Care in Diabetes 2016, [place] Diabetes Association. Diabetes Care. 2016.39(Suppl 1). Interpretation and review of laboratory results Abnormal [facility] Potassium [Moles/Vol] 5.8 mmol/L High 3.7 - 5.1 mmol/L [facility] Sodium [Moles/Vol] 134 mmol/L Low 136 - 144 mmol/L [facility] Urea nitrogen [Mass/Vol] 24 mg/dL High 7 - 21 mg/dL [facility] Basic metabolic 2000 panelon 06-02-2024 Anion gap [Moles/Vol] 12 mmol/L Normal 8-15 [facility] Comment on above: Order Comment: Speci men Type: BLOOD SPECIMENOrdering Facility: [facility] Address: [address] [place] [address] Performed By: #### 2 4321-2 ####[facility] LABCLIA [id number] [place] [address] [place] Calcium [Mass/Vol] 9.9 mg/dL Normal 8.5-10.2 [facility] Comment on above: Order Comment: Speci men Type: BLOOD SPECIMENOrdering Facility: [facility] Address: [address] [place] [address] Performed By: #### 2 4321-2 ####[facility] LABCLIA [id number] [place] [id number] [place] Chloride [Moles/Vol] 103 mmol/L Normal 98-107 [facility] Comment on above: Order Comment: Speci men Type: BLOOD SPECIMENOrdering Facility: [facility] Address: [address] [place] [address] Performed By: #### 2 4321-2 ####[facility] LABCLIA [id number] [place] [address] [place] CO2 [Moles/Vol] 19 mmol/L Low 22-30 [facility] Comment on above: Order Comment: Speci men Type: BLOOD SPECIMENOrdering Facility: [facility] Address: [address] [place] [address] Performed By: #### 2 4321-2 ####[facility] LABCLIA [id number] [place] [address] [place] Creatinine [Mass/Vol] 1.12 mg/dL High 0.58-0.96 [facility] Comment on above: Order Comment: Speci men Type: BLOOD SPECIMENOrdering Facility: [facility] Address: [address] [place] [address] Performed By: #### 2 4321-2 ####[facility] LABIA [id number] [address] [place] Creatinine and Glomerular filtration rate.predicted panel (S/P/Bld) 49 mL/min/1.73m??? Low >=60 [facility] Comment on above: Order Comment: Speci men Type: BLOOD SPECIMENOrdering Facility: [facility] Address: [address] [place] [address] Result Comment: Cici mated Glomerular Filtration Rate [...] actual GFR. Performed By: #### 2 4321-2 ####[facility] LABCLIA [id number] [address] [address] [place] Glucose [Mass/Vol] 73 mg/dL Low 74-99 [facility] Comment on above: Order Comment: Speci men Type: BLOOD SPECIMENOrdering Facility: [facility] Address: [address] [place] [address] Result Comment: The [place] Diabetes Association (ADA) provides guidance for cutoff [...] Standards of Medical Care in Diabetes 2016, [place] Diabetes Association. Diabetes Care. 2016.39(Suppl 1). Performed By: #### 2 4321-2 ####[facility] LABCLIA [id number] [address] [address] [place] Potassium [Moles/Vol] 5.8 mmol/L High 3.7-5.1 [facility] Comment on above: Order Comment: Speci men Type: BLOOD SPECIMENOrdering Facility: [facility] Address: [address] [place] [id number] Performed By: #### 2 4321-2 ####[facility] LABCLIA [id number] [facility]ENTERK [address] [address] [place] Sodium [Moles/Vol] 134 mmol/L Low 136-144 [facility] Comment on above: Order Comment: Speci men Type: BLOOD SPECIMENOrdering Facility: [facility] Address: [address] [place] [address] Performed By: #### 2 4321-2 ####[facility] LABCLIA [id number] [place] [address] [place] Urea nitrogen [Mass/Vol] 24 mg/dL High 7-21 [facility] Comment on above: Order Comment: Speci men Type: BLOOD SPECIMENOrdering Facility: [facility] Address: [address] [place] [address] Performed By: #### 2 4321-2 ####[facility] LABCLIA [id number] [place] [address] [place] CBC W Auto Differential pane l (Bld)on 06-02-2024 Basophils (Bld) [#/Vol] 0.04 10*3/uL [facility] Basophils/100 WBC (Bld) 0.4 % [facility] Differential cell count method Nom (Bld) Auto [facility] Eosinophils (Bld) [#/Vol] 0.15 10*3/uL [facility] Eosinophils/100 WBC (Bld) 1.6 % [facility] Erythrocyte distribution width (RBC) [Ratio] 12.6 % 11.5 - 15.0 % [facility] Hematocrit (Bld) [Volume fraction] 36.7 % 36.0 - 46.0 % [facility] Hemoglobin (Bld) [Mass/Vol] 11.4 g/dL Low 11.5 - 15.5 g/dL [facility] Immature granulocytes (Bld) [#/Vol] 0.03 10*3/uL [facility] Immature granulocytes/100 WBC (Bld) 0.3 % [facility] Interpretation and review of laboratory results Abnormal [facility] Lymphocytes (Bld) [#/Vol] 2.55 10*3/uL [facility] Lymphocytes/100 WBC (Bld) 27.1 % [facility] MCH (RBC) [Entitic mass] 29.2 pg 26.0 - 34.0 pg [facility] MCHC (RBC) [Mass/Vol] 31.1 g/dL 30.5 - 36.0 g/dL [facility] MCV (RBC) [Entitic vol] 94.1 fL 80.0 - 100.0 fL [facility] Monocytes (Bld) [#/Vol] 0.64 10*3/uL [facility] Monocytes/100 WBC (Bld) 6.8 % [facility] Neutrophils (Bld) [#/Vol] 5.99 10*3/uL [facility] Neutrophils/100 WBC (Bld) 63.8 % [facility] Nucleated RBC (Bld) [#/Vol] [facility] Nucleated RBC/100 WBC (Bld) [Ratio] 0 % /100 WBC [facility] Platelet mean volume (Bld) [Entitic vol] 9.9 fL 9.0 - 12.7 fL [facility] Platelets (Bld) [#/Vol] 244 10*3/uL [facility] RBC (Bld) [#/Vol] 3.9 10*6/uL 3.90 - 5.2 0 m/uL [facility] WBC (Bld) [#/Vol] 9.4 10*3/uL [facility] Basophils (Bld) [#/Vol] 0.04 10*3/uL Normal <0.11 [facility] Comment on above: Order Comment: Speci men Type: URINE SPECIMEN [facility] Address: [address] [place] [address] Performed By: #### 2 4356-8 #### [facility] CLIA [id number] [address] [place] [address] [place] Basophils/100 WBC (Bld) 0.4 % Normal [facility] Comment on above: Order Comment: Speci men Type: URINE SPECIMEN [facility] Address: [address] [place] [address] Performed By: #### 2 4356-8 #### [facility] CLIA [id number] [address] [place] [address] [place] Differential cell count method Nom (Bld) Auto Normal [facility] Comment on above: Order Comment: Speci men Type: URINE SPECIMEN [facility] Address: [address] [place] [address] Performed By: #### 2 4356-8 #### [facility] CLIA [id number] [address] [place] [address] [place] Eosinophils (Bld) [#/Vol] 0.15 10*3/uL Normal <0.46 [facility] Comment on above: Order Comment: Speci men Type: URINE SPECIMEN [facility] Address: [address] [place] [address] Performed By: #### 2 4356-8 #### [facility] CLIA [id number] [address] [place] [address] [place] Eosinophils/100 WBC (Bld) 1.6 % Normal [facility] Comment on above: Order Comment: Speci men Type: URINE SPECIMEN [facility] Address: [address] [place] [address] Performed By: #### 2 4356-8 #### [facility] CLIA [id number] [address] [place] [address] [place] Erythrocyte distribution width (RBC) [Ratio] 12.6 % Normal 11.5-15.0 [facility] Comment on above: Order Comment: Speci men Type: URINE SPECIMEN [facility] Address: [address] [place] [address] Performed By: #### 2 4356-8 #### [facility] CLIA [id number] [address] [place] [address] [place] Hematocrit (Bld) [Volume fraction] 36.7 % Normal 36.0-46.0 [facility] Comment on above: Order Comment: Speci men Type: URINE SPECIMEN [facility] Address: [address] [place] [address] Performed By: #### 2 4356-8 #### [facility] CLIA [id number] [address] [place] [address] [place] Hemoglobin (Bld) [Mass/Vol] 11.4 g/dL Low 11.5-15.5 [facility] Comment on above: Order Comment: Speci men Type: URINE SPECIMEN [facility] Address: [address] [place] [address] Performed By: #### 2 4356-8 #### [facility] CLIA [id number] [address] [place] [address] [place] Immature granulocytes (Bld) [#/Vol] 0.03 10*3/uL Normal <0.10 [facility] Comment on above: Order Comment: Speci men Type: URINE SPECIMEN [facility] Address: [address] [place] [address] Performed By: #### 2 4356-8 #### [facility] CLIA [id number] [address] [place] [address] [place] Immature granulocytes/100 WBC (Bld) 0.3 % Normal [facility] Comment on above: Order Comment: Speci men Type: URINE SPECIMEN [facility] Address: [address] [place] [address] Performed By: #### 2 4356-8 #### [facility] CLIA [id number] [address] [place] [address] [place] Lymphocytes (Bld) [#/Vol] 2.55 10*3/uL Normal 1.00-4.00 [facility] Comment on above: Order Comment: Speci men Type: URINE SPECIMEN [facility] Address: [address] [place] [address] Performed By: #### 2 4356-8 #### [facility] CLIA [id number] [address] [place] [address] [place] Lymphocytes/100 WBC (Bld) 27.1 % Normal [facility] Comment on above: Order Comment: Speci men Type: URINE SPECIMEN [facility] Address: [address] [place] [address] Performed By: #### 2 4356-8 #### [facility] CLIA [id number] [address] [place] [address] [place] MCH (RBC) [Entitic mass] 29.2 pg Normal 26.0-34.0 [facility] Comment on above: Order Comment: Speci men Type: URINE SPECIMEN [facility] Address: [address] [place] [address] Performed By: #### 2 4356-8 #### [facility] CLIA [id number] [address] [place] [address] [place] MCHC (RBC) [Mass/Vol] 31.1 g/dL Normal 30.5-36.0 [facility] Comment on above: Order Comment: Speci men Type: URINE SPECIMEN [facility] Address: [address] [place] [address] Performed By: #### 2 4356-8 #### [facility] CLIA [id number] [address] [place] [address] [place] MCV (RBC) [Entitic vol] 94.1 fL Normal 80.0-100.0 [facility] Comment on above: Order Comment: Speci men Type: URINE SPECIMEN [facility] Address: [address] [place] [address] Performed By: #### 2 4356-8 #### [facility] CLIA [id number] [address] [place] [address] [place] Monocytes (Bld) [#/Vol] 0.64 10*3/uL Normal <0.87 [facility] Comment on above: Order Comment: Speci men Type: URINE SPECIMEN [facility] Address: [address] [place] [address] Performed By: #### 2 4356-8 #### [facility] CLIA [id number] [address] [place] [address] [place] Monocytes/100 WBC (Bld) 6.8 % Normal [facility] Comment on above: Order Comment: Speci men Type: URINE SPECIMEN [facility] Address: [address] [place] [address] Performed By: #### 2 4356-8 #### [facility] CLIA [id number] [address] [place] [address] [place] Neutrophils (Bld) [#/Vol] 5.99 10*3/uL Normal 1.45-7.50 [facility] Comment on above: Order Comment: Speci men Type: URINE SPECIMEN [facility] Address: [address] [place] [address] Performed By: #### 2 4356-8 #### [facility] CLIA [id number] [address] [place] [address] [place] Neutrophils/100 WBC (Bld) 63.8 % Normal [facility] Comment on above: Order Comment: Speci men Type: URINE SPECIMEN [facility] Address: [address] [place] [address] Performed By: #### 2 4356-8 #### [facility] CLIA [id number] [address] [place] [address] [place] Nucleated RBC (Bld) [#/Vol] 10*3/uL Normal <0.01 [facility] Comment on above: Order Comment: Speci men Type: URINE SPECIMEN [facility] Address: [address] [place] [address] Performed By: #### 2 4356-8 #### [facility] CLIA [id number] [address] [place] [address] [place] Nucleated RBC/100 WBC (Bld) [Ratio] 0.0 /100 WBC Normal [facility] Comment on above: Order Comment: Speci men Type: URINE SPECIMEN [facility] Address: [address] [place] [address] Performed By: #### 2 4356-8 #### [facility] CLIA [id number] [address] [place] [address] [place] Platelet mean volume (Bld) [Entitic vol] 9.9 fL Normal 9.0-12.7 [facility] Comment on above: Order Comment: Speci men Type: URINE SPECIMEN [facility] Address: [address] [place] [address] Performed By: #### 2 4356-8 #### [facility] CLIA [id number] [address] [place] [address] [place] Platelets (Bld) [#/Vol] 244 10*3/uL Normal 150-400 [facility] Comment on above: Order Comment: Speci men Type: URINE SPECIMEN [facility]ing [facility]: [facility] Address: [address] [place] [address] Performed By: #### 2 4356-8 #### [facility] CLIA [id number] [address] [place] [address] [place] RBC (Bld) [#/Vol] 3.90 10*6/uL Normal 3.90-5.20 [facility] Comment on above: Order Comment: Speci men Type: URINE SPECIMEN [facility] Address: [address] [place] [address] Performed By: #### 2 4356-8 #### [facility] CLIA [id number] [address] [place] [address] [place] WBC (Bld) [#/Vol] 9.40 10*3/uL Normal 3.70-11.00 [facility] Comment on above: Order Comment: Speci men Type: URINE SPECIMEN [facility] Address: [address] [place] [address] Performed By: #### 2 4356-8 #### [facility] CLIA [id number] [address] [place] [address] [place] CNOVon 06-02-2024 CNOV Office Visit (FAMPWS) SPENSER PUTNAM ([id number]) 1940 F Date Time Provider Department 06/02/24 10:40 AM JUAN SPANN During your visit today, we recorded the following information about you: Pulse Respiration Blood pressure Weight 64/minute 16/minute 112/60 62.6 kg Juan Spann MD 06/03/2024 8:17 AM Signed Chief Complaint Patient presents with: Pre-Op Exam HPI Spenser Putnam is a 83 year old female who presents here today for Pre op for Spinal Cord Stimulator;leads and generator implant at [facility] Patient with hx HTN, hyperlipidemia, RLS, insomnia, vit b12 def, OA and those as below. Patient has a Hx of HTN and has lumbar radiculopathy and is set up to have a spinal cord stimulator with generator implanted per Dr. Jamey Collier on 06/24/[address] [facility]. Patient has been dong ok. No complaints [...] Coronary Artery Disease Maternal Grandmother Hx of [place] Diabetes Daughter Type I Patient Allergies ALLERGIES [...] cephALEXin (KEFLE (more content not included)... Normal [facility] [id number] 06-02-2024 ECG01 Ventricular Rate : 62 BPM Atrial Rate : 62 BPM P-R Interval : 188 ms QRS Duration : 94 ms Q-T Interval : 398 ms QTC Calculation(Bazett) : 403 ms Calculated P [employer] : 57 degrees Calculated R [employer] [place] : 28 degrees Calculated T [employer] [place] : 52 degrees NORMAL SINUS RHYTHM NORMAL ECG Confirmed by MD SEVILLA QARAB ([id number]) on 06/08/2024 11:54:39 AM NAME : SPENSER PUTNAM PID : [id number] : 1940 Gender : Female Race : ORD : Procedure Date : Jun 02 2024 11:13:09 Edit Date : Jun 08 2024 11:54:43 Diagnosis: NORMAL SINUS RHYTHM NORMAL ECG Confirmed by MD SEVILLA QARAB ([id number]) on 06/08/2024 11:54:39 AM Test Reason : Location : 136 : [facility] Overread By : MD SEVILLA QARAB Edited By : MD SEVILLA QARAB Referred By : Kelle Spann Acquired by : Maurilio Lorenzo [facility] Marleny 05-18-2024 CNPN Telephone (AGSPINE3) NADINEHIEUON,SPENSER MCKEON ([id number]) 1940 F Date Time Provider Department 05/18/24 AJ GRAHAM AGSPINE3 During your visit today, we recorded the following information about you: Meg Chaudhary LPN 05/18/2024 9:14 AM Signed [facility] faxed requesting the following refill: Refill(s) Requested: Requested Prescriptions No prescriptions requested or ordered in this encounter celecoxib (CELEBREX) 200 mg capsule ALLERGIES Allergen Reactions Sulfa (Sulfonamide * Swelling, Anaphylaxis Tongue/ throat swelled Phenergan Plain Vomiting Vomiting Hydrocodone-Acetami* GI Upset NAUSEA Procardia [Nifedipi* Swelling legs (home) [phone] (cell) Last Office Visit Date: 05/04/2024 Last [facility] Visit: 04/13/2024 Future Appointment: 07/06/2024 Provider: Aj Grhaam The patients preferred pharmacy has been captured for this encounter? no Request is for script(s) to be escript to pharmacy. E- [id number] [place] [address] [address] [phone] [facility] [address] Specialty Problems Neuro problems Insomnia, unspecified Restless leg syndrome Carpal tunnel syndrome, left Lumbar radiculopathy Pharmacy stated on faxed that patient previously asked pharmacy to cancel this script, now expecting refill Meg Chaudhary LPN May 18, 2024 9:10 AM Aj Graham APRN.PLATEMAKER 05/18/2024 10:46 AM Signed Ordered reviewed, script [...] Date Reviewed: 05/04/2024 Reviewed by: Aj Graham APRN.PLATEMAKER - Fully Assessed Reason for Visit: Refill [...] [L82.1] 06/23/2006 [facility]*08/24/2008 07/29/2011 Class: Chronic Routine gynecological examination [...] shoulder (H (more content not included)... Normal [facility] Marleny 05-12-2024 CNPN Telephone (AGSPINE3) SPENSER PUTNAM ([id number]) 1940 F Date Time Provider Department 05/12/24 DANII ROCA AGSPINE3 During your visit today, we recorded the following information about you: Mony Laboy 05/12/2024 11:33 AM Signed Spoke to Preethi from [employer] patient was seen by Dr benedict office, [...] Date Reviewed: 05/04/2024 Reviewed by: Aj Graham APRN.PLATEMAKER - Fully Assessed Reason for Visit: Patient [...] [L82.1] 06/23/2006 [facility]*08/24/2008 07/29/2011 Class: Chronic Routine gynecological examination [...] Hyponatremia [E87.1] (more content not included)... Normal [facility] CNOVon 05-04-2024 CNOV Office Visit (AGSPINE3) SPENSER PUTNAM ([id number]) 1940 F Date Time Provider Department 05/04/24 1:00 PM PREBISH, AJ AGSPINE3 During your visit today, we recorded the following information about you: Pulse Respiration Normal [facility] XR LUMBAR 2V AP/LATon 2024 XR [...] in spondylolisthesis. Other findings as per results Pile Driver: DARRYL Transcribe Date/Time: May 05 2024 12:47P Dictated by : CHELSEA CHONG MD This examination was interpreted and the report reviewed and electronically signed by: CHELSEA CHONG MD on May 05 2024 12:58PM EST [id number] CN Normal [facility] XR THORACIC 2V AP/LATon 04-11 XR THORACIC 2V AP/LAT * * *Final [...] change. Stimulator lead as noted in results. Pile Driver: DARRYL Transcribe Date/Time: May 05 2024 1:00P Dictated by : CHELSEA CHONG MD This examination was interpreted and the report reviewed and electronically signed by: CHELSEA CHONG MD on May 05 2024 1:03PM EST [id number] CN Normal [facility] CNPNon 04-27-2024 CNPN Telephone (AGSPINE3) SPENSER PUTNAM ([id number]) 1940 F Date Time Provider Department 04/27/24 [...] [L82.1] 06/23/2006 [facility]*08/24/2008 07/29/2011 Class: Chronic Routine gynecological examination [...] Encounter Status:C (more content not included)... [facility] Tele[facility] (AGSPINE3) CIARASPENSER MCKEON ([id number]) 1940 F Date Time Provider Department 04/26/24 DANII ROCA AGSPINE3 During your visit today, we recorded the following information about you: Monae Mancini PSS 04/26/2024 3:34 PM Signed Patient called [facility] stated she had question about her trial. VM was transferred to Mony @ [phone] Monae Mancini [place] to Dr. Danii Roca,PhD, Dr. Kahlil Juarez DO, Mikie Hardwick, 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 ENGINEER,PLATEMAKER [facility] P: [phone] / F: [phone] Mony Laboy 04/28/2024 8:09 AM Signed Spoke [...] [L82.1] 06/23/2006 [facility]*08/24/2008 07/29/2011 Class: Chronic Routine gynecological examination [...] lumbar region (more content not included)... Normal [facility]NPN Telephone (AGSPINE3) CLAUDIASPENSER MANN ([id number]) 1940 F Date Time Provider Department 04/21/24 [...] Comments: legs Date Reviewed: 03/23/2024 Reviewed by: Cook, Rosalba, MANAGER HOSPITAL - Fully Assessed Reason for Visit: Patient [...] [L82.1] 06/23/2006 [facility]*08/24/2008 07/29/2011 Class: Chronic Routine gynecological examination [...] Encounter Status:Closed by MONY LABOY on 04/21/24 [facility] CNPN Telephone (AGSPINE3) CIARASPENSER MCKEON ([id number]) 1940 F Date Time Provider Department 04/21/24 DANII ROCA AGSPINE3 During your visit today, we recorded the following information about you: Mony Laboy 04/21/2024 1:15 PM Signed PLEASE SEND IN XANAX AND ANTIBIOTIC TO e- [id number] [place] [address] - [address] - [phone] [facility] [phone] Danii Roca MD, PhD 04/22/2024 5:27 AM [...] Reason for Visit: Patient Update [1234] Cmt: [facility] TRIAL SCHEDULE Primary Visit Diagnosis:Anxiety due to [...] [L82.1] 06/23/2006 [facility]*08/24/2008 07/29/2011 Class: Chronic Routine gynecological examination [...] 10/13/2014 03/27/2016 Well adult exam [Z00.00] 10/13/2014 (more content not included)... Normal [facility] CNPNon 04-20-2024 CNPN Telephone (AGSPINE3) SPENSER PUTNAM ([id number]) 1940 F Date Time Provider Department 04/20/24 [...] LPN - Fully Assessed Reason for Visit: SCS update [Other] Prescriptions as of 04/20/2024 - [...] [L82.1] 06/23/2006 [facility]*08/24/2008 07/29/2011 Class: Chronic Routine gynecological examination [...] Encounter Status:Closed by THONY TA on 04/20/24 [facility] 03-25-2024 [facility] Telephone (AGSPINE3) SPENSER PUTNAM ([id number]) 1940 F Date Time Provider Department 03/25/24 [...] [L82.1] 06/23/2006 [facility]*08/24/2008 07/29/2011 Class: Chronic Routine gynecological examination [...] Encounter Status:Closed by ROSALBA ARRIAGA on 03/25/24 [facility] CNPNahomi 03-22-2024 CNPN Telephone (FAMPWS) SPENSER PUTNAM ([id number]) 1940 F Date Time Provider Department 03/22/24 DESTINI LAY During your visit today, we [...] [L82.1] 06/23/2006 [facility]*08/24/2008 07/29/2011 Class: Chronic Routine gynecological examination [...] Status:Closed by JONAS MILAN on 03/22/24 Normal [facility] CBC W Auto Differential pane l (Bld)on 03-19-2024 Basophils (Bld) [#/Vol] 0.03 10*3/uL Normal <0.11 [facility] Comment on above: Order Comment: Speci men Type: BLOOD SPECIMENOrdering Facility: [facility] Address: [address] [place] [address] Performed By: #### 5 7021-8 ####[facility] LABIA [id number] [place] [address] [place] Basophils/100 WBC (Bld) 0.3 % Normal [facility] Comment on above: Order Comment: Speci men Type: BLOOD SPECIMENOrdering Facility: [facility] Address: [address] [place] [address] Performed By: #### 5 7021-8 ####[facility] LABCLIA [id number] [place] [address] [place] Differential cell count method Nom (Bld) Auto Normal [facility] Comment on above: Order Comment: Speci men Type: BLOOD SPECIMENOrdering Facility: [facility] Address: [address] [place] [address] Performed By: #### 5 7021-8 ####[facility] LABIA [id number] [place] [address] [place] Eosinophils (Bld) [#/Vol] 0.08 10*3/uL Normal <0.46 [facility] Comment on above: Order Comment: Speci men Type: BLOOD SPECIMENOrdering Facility: [facility] Address: [address] [place] [address] Performed By: #### 5 7021-8 ####[facility] LABCLIA [id number] [place] [address] [place] Eosinophils/100 WBC (Bld) 0.9 % Normal [facility] Comment on above: Order Comment: Speci men Type: BLOOD SPECIMENOrdering Facility: [facility] Address: [address] [place] [address] Performed By: #### 5 7021-8 ####[facility] LABCLIA [id number] [place] [address] [place] Erythrocyte distribution width (RBC) [Ratio] 13.2 % Normal 11.5-15.0 [facility] Comment on above: Order Comment: Speci men Type: BLOOD SPECIMENOrdering Facility: [facility] Address: [address] [place] [address] Performed By: #### 5 7021-8 ####[facility] LABCLIA [id number] [address] [place] Hematocrit (Bld) [Volume fraction] 35.8 % Low 36.0-46.0 [facility] Comment on above: Order Comment: Speci men Type: BLOOD SPECIMENOrdering Facility: [facility] Address: [address] [place] [address] Performed By: #### 5 7021-8 ####[facility] LABCLIA [id number] [place] [address] [place] Hemoglobin (Bld) [Mass/Vol] 11.2 g/dL Low 11.5-15.5 [facility] Comment on above: Order Comment: Speci men Type: BLOOD SPECIMENOrdering Facility: [facility] Address: [address] [place] [address] Performed By: #### 5 7021-8 ####[facility] LABCLIA [id number] [place] [address] [place] Immature granulocytes (Bld) [#/Vol] 10*3/uL Normal <0.10 [facility] Comment on above: Order Comment: Speci men Type: BLOOD SPECIMENOrdering Facility: [facility] Address: [address] [place] [address] Performed By: #### 5 7021-8 ####[facility] LABCLIA [id number] [place] [address] [place] Immature granulocytes/100 WBC (Bld) 0.2 % Normal [facility] Comment on above: Order Comment: Speci men Type: BLOOD SPECIMENOrdering Facility: [facility] Address: [address] [place] [address] Performed By: #### 5 7021-8 ####[facility] LABCLIA [id number] [place] [address] [place] Lymphocytes (Bld) [#/Vol] 2.28 10*3/uL Normal 1.00-4.00 [facility] Comment on above: Order Comment: Speci men Type: BLOOD SPECIMENOrdering Facility: [facility] Address: [address] [place] [address] Performed By: #### 5 7021-8 ####[facility] LABCLIA [id number] [place] [address] [place] Lymphocytes/100 WBC (Bld) 25.3 % Normal [facility] Comment on above: Order Comment: Speci men Type: BLOOD SPECIMENOrdering Facility: [facility] Address: [address] [place] [address] Performed By: #### 5 7021-8 ####[facility] LABCLIA [id number] [id number], [place] [address] [place] MCH (RBC) [Entitic mass] 29.2 pg Normal 26.0-34.0 [facility] Comment on above: Order Comment: Speci men Type: BLOOD SPECIMENOrdering Facility: [facility] Address: [address] [place] [address] Performed By: #### 5 7021-8 ####[facility] LABCLIA [id number] [place] [address] [place] MCHC (RBC) [Mass/Vol] 31.3 g/dL Normal 30.5-36.0 [facility] Comment on above: Order Comment: Speci men Type: BLOOD SPECIMENOrdering Facility: [facility] Address: [address] [place] [address] Performed By: #### 5 7021-8 ####[facility] LABCLIA [id number] [place] [address] [place] MCV (RBC) [Entitic vol] 93.2 fL Normal 80.0-100.0 C [facility] Comment on above: Order Comment: Speci men Type: BLOOD SPECIMENOrdering Facility: [facility] Address: [address] [place] [address] Performed By: #### 5 7021-8 ####[facility] LABCLIA [id number] [place] [address] [place] Monocytes (Bld) [#/Vol] 0.65 10*3/uL Normal <0.87 [facility] Comment on above: Order Comment: Speci men Type: BLOOD SPECIMENOrdering Facility: [facility] Address: [address] [place] [address] Performed By: #### 5 7021-8 ####[facility] LABCLIA [id number] [place] [address] [place] Monocytes/100 WBC (Bld) 7.2 % Normal C [facility] Comment on above: Order Comment: Speci men Type: BLOOD SPECIMENOrdering Facility: [facility] Address: [address] [place] [address] Performed By: #### 5 7021-8 ####[facility] LABCLIA [id number] [place] [address] [place] Neutrophils (Bld) [#/Vol] 5.95 10*3/uL Normal 1.45-7.50 [facility] Comment on above: Order Comment: Speci men Type: BLOOD SPECIMENOrdering Facility: [facility] Address: [address] [place] [address] Performed By: #### 5 7021-8 ####[facility] LABCLIA [id number] [place] [address] [place] Neutrophils/100 WBC (Bld) 66.1 % Normal [facility] Comment on above: Order Comment: Speci men Type: BLOOD SPECIMENOrdering Facility: [facility] Address: [address] [place] [address] Performed By: #### 5 7021-8 ####[facility] LABCLIA [id number] [place] [address] [place] Nucleated RBC (Bld) [#/Vol] 10*3/uL Normal <0.01 [facility] Comment on above: Order Comment: Speci men Type: BLOOD SPECIMENOrdering Facility: [facility] Address: [address] [place] [address] Performed By: #### 5 7021-8 ####[facility] LABCLIA [id number] [place] [address] [place] Nucleated RBC/100 WBC (Bld) [Ratio] 0.0 /100 WBC Normal [facility] Comment on above: Order Comment: Speci men Type: BLOOD SPECIMENOrdering Facility: [facility] Address: [address] [place] [address] Performed By: #### 5 7021-8 ####[facility] LABCLIA [id number] [place] [address] [place] Platelet mean volume (Bld) [Entitic vol] 9.2 fL Normal 9.0-12.7 [facility] Comment on above: Order Comment: Speci men Type: BLOOD SPECIMENOrdering Facility: [facility] Address: [address] [place] [address] Performed By: #### 5 7021-8 ####[facility] LABIA [id number] [place] [address] [place] Platelets (Bld) [#/Vol] 244 10*3/uL Normal 150-400 [facility] Comment on above: Order Comment: Speci men Type: BLOOD SPECIMENOrdering Facility: [facility] Address: [address] [place] [address] Performed By: #### 5 7021-8 ####[facility] LABIA [id number] [place] [address] [place] RBC (Bld) [#/Vol] 3.84 10*6/uL Low 3.90-5.20 [facility] Comment on above: Order Comment: Speci men Type: BLOOD SPECIMENOrdering Facility: [facility] Address: [address] [place] [address] Performed By: #### 5 7021-8 ####[facility] LABIA [id number] [place] [address] [place] WBC (Bld) [#/Vol] 9.01 10*3/uL Normal 3.70-11.00 [facility] Comment on above: Order Comment: Speci men Type: BLOOD SPECIMENOrdering Facility: [facility] Address: [address] [place] [address] Performed By: #### 5 7021-8 ####[facility] LABCLIA [id number] [place] [address] [place] CNOVon 03-19-2024 [facility] SPENSER PUTNMA ([id number]) 1940 F Date Time Provider Department 03/19/24 1:00 PM DESTINI LAY FAMStephenieWS During your visit today, we recorded the [...] Coronary Artery Disease Maternal Grandmother Hx of [place] Diabetes Daughter Type I Patient Allergies ALLERGIES [...] pill tw (more content not included)... Normal [facility] Hepatic function 2000 panelo n 03-19-2024 Albumin [Mass/Vol] 4.1 g/dL Normal 3.9-4.9 [facility] Comment on above: Order Comment: Speci men Type: URINE SPECIMEN [facility] Address: [address] [place] [address] Performed By: #### 2 4356-8 #### [facility] CLIA [id number] [address] [place] [address] [place] ALP [Catalytic activity/Vol] 72 U/L Normal 34-123 [facility] Comment on above: Order Comment: Speci men Type: URINE SPECIMEN [facility]ing Facility: [facility] Address: [address] [place] [address] Performed By: #### 2 4356-8 #### [facility] CLIA [id number] [address] [place] [address] [place] ALT [Catalytic activity/Vol] 7 U/L Normal 7-38 [facility] Comment on above: Order Comment: Speci men Type: URINE SPECIMEN [facility] Address: [address] [place] [address] Performed By: #### 2 4356-8 #### [facility] CLIA [id number] [address] [place] [address] [place] AST [Catalytic activity/Vol] 15 U/L Normal 13-35 [facility] Comment on above: Order Comment: Speci men Type: URINE SPECIMEN [facility] Address: [address] [place] [address] Performed By: #### 2 4356-8 #### [facility] CLIA [id number] [address] [place] [address] [place] Bilirubin [Mass/Vol] 0.4 mg/dL Normal 0.2-1.3 [facility] Comment on above: Order Comment: Speci men Type: URINE SPECIMEN [facility] Address: [address] [place] [address] Performed By: #### 2 4356-8 #### [facility] CLIA [id number] [address] [place] [address] [place] Bilirubin.conjugated [Mass/Vol] 0.2 mg/dL Normal <0.3 [facility] Comment on above: Order Comment: Speci men Type: URINE SPECIMEN [facility] Address: [address] [place] [address] Performed By: #### 2 4356-8 #### [facility] CLIA [id number] [address] [place] [address] [place] Protein [Mass/Vol] 7.1 g/dL Normal 6.3-8.0 [facility] Comment on above: Order Comment: Speci men Type: URINE SPECIMEN [facility] Address: [address] [place] [address] Performed By: #### 2 4356-8 #### [facility] CLIA [id number] [address] [place] [address] [place] LIPID PANEL, NONFASTINGon Cholesterol [Mass/Vol] 162 mg/dL Normal <200 [facility] Comment on above: Order Comment: Speci men Type: URINE SPECIMEN [facility] Address: [address] [place] [address] Result Comment: <200 mg/dL, Desirable 200-239 mg/dL, Borderline high >239 mg/dL, High Performed By: #### 2 4356-8 #### [facility] CLIA [id number] [address] [place] [address] [place] HDL CHOLESTEROL, NF 91 mg/dL Normal >39 [facility] Comment on above: Order Comment: Speci men Type: URINE SPECIMEN [facility] Address: [address] [place] [address] Result Comment: 40-5 9 mg/dL, Acceptable >59 mg/dL, High: Negative risk factor for coronary heart disease <40 mg/dL, Low: Positive risk factor for coronary heart disease Performed By: #### 2 4356-8 #### [facility] CLIA [id number] [address] [place] [address] [place] LDL CHOLESTEROL, NF 52 mg/dL Normal <100 [facility] Comment on above: Order Comment: Speci men Type: URINE SPECIMEN [facility] Address: [address] [place] [address] Result Comment: <100 mg/dL, Optimal 100-129 mg/dL, Near optimal/above optimal 130-159 mg/dL, Borderline high 160-189 mg/dL, High >189 mg/dL, Very high Secondary prevention optimal LDL Cholesterol levels are recommended to be < 70 mg/dL Performed By: #### 2 4356-8 #### [facility] CLIA [id number] [address] [place] [address] [place] LDL/HDL RATIO, NF 0.57 mg/dL Normal <2.54 [facility] Comment on above: Order Comment: Speci men Type: URINE SPECIMEN [facility] Address: [address] [place] [address] Result Comment: Alex choi: 1. National Cholesterol Education Program ATP III Guideline At-A-Glance Quick Desk Reference: National Heart, Lung, and Blood [place]. National Institutes of Health. 2001: NIH Publication No. 01-3305. 2. An International Atherosclerosis Society position paper: global recommendations for the management of dyslipidemia: executive summary, Atherosclerosis. 2014: 232(2):410-413. Performed By: #### 2 4356-8 #### [facility] CLIA [id number] [address] [place] [address] [place] NON HDL CHOL, NF 71 mg/dL Normal <130 [facility] Comment on above: Order Comment: Speci men Type: URINE SPECIMEN [facility]ing [facility]: [facility] Address: [address] [place] [address] Result Comment: <130 mg/dL, Optimal 130-159 mg/dL, Near optimal/above optimal 160-189 mg/dL, Borderline high 190-219 mg/dL, High >219 mg/dL, Very high Secondary prevention optimal non HDL Cholesterol levels are recommended to be <100 mg/dL Performed By: #### 2 4356-8 #### [facility] CLIA [id number] [address] [place] [address] [place] T CHOL/HDL RATIO NF 1.78 mg/dL Normal <5.10 [facility] Comment on above: Order Comment: Speci men Type: URINE SPECIMEN [facility]ing [facility] Address: [address] [place] [address] Performed By: #### 2 4356-8 #### [facility] CLIA [id number] [address] [place] [address] [place] TRIGLYCERIDES, NF 97 mg/dL Normal <150 [facility] Comment on above: Order Comment: Speci men Type: URINE SPECIMEN [facility]ing [facility]: [facility] Address: [address] [place] [address] Result Comment: <150 mg/dL, Normal 150-199 mg/dL, Borderline high 200-499 mg/dL, High >499 mg/dL, Very high Performed By: #### 2 4356-8 #### [facility] CLIA [id number] [address] [place] [address] [place] VLDL CHOLESTEROL, NF 19 mg/dL Normal <30 [facility] Comment on above: Order Comment: Speci men Type: URINE SPECIMEN Ordering Facility: [facility] Address: [address] [place] [address] Performed By: #### 2 4356-8 #### [facility] CLIA [id number] [address] [place] [address] [place] Vit [facility]12 [facility] Cobalamin (Vitamin B12) [Mass/Vol] 935 pg/mL Normal 232-1245 [facility] Comment on above: Order Comment: Speci men Type: BLOOD SPECIMENOrdering Facility: [facility] Address: [address] [place] [address] Performed By: #### 2 4325-3, 2132-9, LIPNF ####[facility] LAB[facility] [id number] [facility] [address] [place] CNPNahomi 02-02-2024 CNPN Telephone (AGSPINE3) SPENSER PUTNAM ([id number]) 1940 F Date Time Provider Department 02/02/24 [...] [L82.1] 06/23/2006 [facility]08/24/2008 07/29/2011 Class: Chronic Routine gynecological examination [...] Hyponatremia [E87 (more content not included)... Normal [facility] CNCOon 01-29-2024 CNCO Letter Text Normal [facility] CNOVon 01-29-2024 CNOV Office Visit (AGSPINE3) SPENSER PUTNAME ([id number]) 1940 F Date Time Provider Department 01/29/24 [...] AM Signed [facility] [place] General Today's Date: 01/29/2024 Name: Spenser Putnam [...] fluoroscopic guidance LEFT-SIDED at S1 and L5-S1 Angle Bender Needed: Epidural - YES Anticoagulant - Hold Needed: N/A (Not currently on Anticoagulants) Anticoagulant - Currently Taking: None Allergies (relevant): None Scheduling - Mobility (Can Patient independently transfer on/off an OR or Procedure table?): YES (May schedule at any location) Scheduling - Additional Info: None Studies: None Functional Presybeterian: Physical Therapy Consultation (Land-Based) Referrals: No additional [...] TFESI completed on 11/21/2023, but no significant termination clerk benefit. She has previously had left L4-5 [...] shopping cart (more content not included)... Normal [facility] MR Thoracic spine WO anival ton 01-17-2024 IMPRESSION: Canal and foramina are patent. Mild degenerative disc disease at T7-T8. Anatomic Thoracic/Lumbar Variant: None. L4-5 is considered the level of the iliac crest and assume there are 5 lumbar-type vertebrae. Pile Driver: PSCB Transcribe Date/Time: Jan 17 2024 1:14P Dictated by : KELLY FERNANDEZ MD This examination was interpreted and the report reviewed and electronically signed by: KELLY FERNANDEZ MD on Jan 17 2024 1:18PM EST [facility] RADIOLOG[facility] * * *Final Report* * * DATE OF EXAM: Jan 17 2024 1:01PM [facility] 0325 - MRI THORACIC SPINE WO [...] The thoracic canal and foramina are patent. [facility] RAD[facility] Provider, [facility] - 01/17/2024 * * *Final Report* * * DATE OF EXAM: Jan 17 2024 1:01PM [facility] 0325 - MRI THORACIC SPINE WO [...] and assume there are 5 lumbar-type vertebrae. Pile Driver: [facility] Transcribe Date/Time: Jan 17 2024 1:14P Dictated by : KELLY FERNANDEZ MD This examination was interpreted and the report reviewed and electronically signed by: KELLY FERNANDEZ MD on Jan 17 2024 1:18PM EST [facility] Radiology Study observation (narrative) [facility] MR Thoracic spine WO contras tOrdered By: Ccf Provider on 01-17-2024 [facility] MRI THORACIC SPINE WO IVCONo n 01-17-2024 MRI THORACIC SPINE WO IVCON * * *Final Report* * * DATE OF EXAM: Jan 17 2024 1:01PM [facility] 0325 - MRI THORACIC SPINE WO [...] and assume there are 5 lumbar-type vertebrae. Pile Driver: PSCB Transcribe Date/Time: Jan 17 2024 1:14P Dictated by : KELLY FERNANDEZ MD This examination was interpreted and the report reviewed and electronically signed by: KELLY FERNANDEZ MD on Jan 17 2024 1:18PM EST [id number] [facility] CNOVon 01-13-2024 CNOV Office Visit (AGSPINE3) CIARASPENSER MCKEON ([id number]) 1940 F Date Time Provider Department 01/13/24 [...] The patient is not nervous/anxious. Aj Graham APRN.CNP 01/13/2024 3:06 PM Signed [facility] General Today's Date: 01/13/2024 Name: Spenser [...] fluoroscopic guidance LEFT-SIDED at S1 and L5-S1 Angle Bender Needed: Epidural - YES Anticoagulant - Hold Needed: N/A (Not currently on Anticoagulants) Anticoagulant - Currently Taking: None Allergies (relevant): None Scheduling - Mobility (Can Patient independently transfer on/off an OR or Procedure table?): YES (May schedule at any location) Scheduling - Additional Info: None Studies: None Functional Presybeterian: Physical Therapy Consultation (Land-Based) Referrals: No additional [...] Therapies Attended (Current or Most Recent): Jeremiah [facility] Physical Therapy 04/17/2023 12/11/2023 [facility] SPINE COMBINATION [...] flags. She (more content not included)... [facility] Tele[facility] (AGSPHWS) CIARASPENSER ([id number]) 1940 F Date Time Provider Department 01/12/24 AJ GRAHAMMOMO During your visit today, we recorded the [...] 01/11- Scheduled patient with Aj tomorrow in [place] to discuss the new pain she's having [...] [L82.1] 06/23/2006 [facility]*08/24/2008 07/29/2011 Class: Chronic Routine gynecological examination [...] [E79.0] 04 (more content not included)... Normal [facility] CNOVon 12-11-2023 CNOV Office Visit (SPAGWO) SPENSER PUTNAM ([id number]) 1940 F Date Time Provider Department 12/11/23 10:15 AM AJ GRAHAM During your visit today, we recorded the following information about you: Pulse Respiration Normal [facility] CNPNahomi 12-11-2023 CNPN Telephone (SPAGWO) SPENSER PUTNAM ([id number]) 1940 F Date Time Provider Department 12/11/23 AJ GRAHAM During your visit today, we recorded the following information about you: Priscilla Vivar 12/11/2023 11:27 AM Signed Patient has been scheduled an [facility] consult with Dr. Roca on 01/29/24. Aj put in the order for referral to [facility] for eval. Could you submit that? Priscilla Vivar Allergies As of Date: 12/11/2023 Noted Allergy Reaction SULFA (SULFONAMIDE ANTIBIOTICS) 04/11/2005 7 - Swelling 10 - Anaphylaxis Comments: Tongue/ throat swelled [facility] 03/18/2013 11 - Vomiting Comments: Vomiting HYDROCODONE-ACETAMIN OPHEN 12/30/2011 8 - GI Upset Comments: NAUSEA PROCARDIA (NIFEDIPINE) 06/26/2020 7 - Swelling Comments: legs Date Reviewed: 12/11/2023 Reviewed by: Aj Graham APRN.PLATEMAKER - Fully Assessed Reason for Visit: Consult [...] [L82.1] 06/23/2006 [facility]*08/24/2008 07/29/2011 Class: Chronic Routine gynecological examination [...] Encounter Status:Closed by PRISCILLA VIVAR on 12/11/23 Normal [facility] CBC W Auto Differential pane l (Bld)on 11-28-2023 Basophils (Bld) [#/Vol] 0.03 10*3/uL [facility] Basophils/100 WBC (Bld) 0.3 % [facility] Differential cell count method Nom (Bld) Auto [facility] Eosinophils (Bld) [#/Vol] 0.09 10*3/uL [facility] Eosinophils/100 WBC (Bld) 0.9 % [facility] Erythrocyte distribution width (RBC) [Ratio] 12.9 % 11.5 - 15.0 % [facility] Hematocrit (Bld) [Volume fraction] 33.5 % Low 36.0 - 46.0 % [facility] Hemoglobin (Bld) [Mass/Vol] 10.7 g/dL Low 11.5 - 15.5 g/dL [facility] Immature granulocytes (Bld) [#/Vol] 0.07 10*3/uL [facility] Immature granulocytes/100 WBC (Bld) 0.7 % [facility] Interpretation and review of laboratory results Abnormal [facility] Lymphocytes (Bld) [#/Vol] 2.18 10*3/uL [facility] Lymphocytes/100 WBC (Bld) 21.8 % [facility] MCH (RBC) [Entitic mass] 29.7 pg 26.0 - 34.0 pg [facility] MCHC (RBC) [Mass/Vol] 31.9 g/dL 30.5 - 36.0 g/dL [facility] MCV (RBC) [Entitic vol] 93.1 fL 80.0 - 100.0 fL [facility] Monocytes (Bld) [#/Vol] 0.80 10*3/uL [facility] Monocytes/100 WBC (Bld) 8.0 % [facility] Neutrophils (Bld) [#/Vol] 6.82 10*3/uL [facility] Neutrophils/100 WBC (Bld) 68.3 % [facility] Nucleated RBC (Bld) [#/Vol] [facility] Nucleated RBC/100 WBC (Bld) [Ratio] 0.0 % /100 WBC [facility] Platelet mean volume (Bld) [Entitic vol] 9.0 fL 9.0 - 12.7 fL [facility] Platelets (Bld) [#/Vol] 333 10*3/uL [facility] RBC (Bld) [#/Vol] 3.60 10*6/uL Low 3.90 - 5.2 0 m/uL [facility] WBC (Bld) [#/Vol] 9.99 10*3/uL [facility] Marleny 11-24-2023 RAYSA Telephone (AGSPINE3) CLAUDIASPENSER MANN ([id number]) 1940 F Date Time Provider Department 11/24/23 [...] [L82.1] 06/23/2006 [facility]*08/24/2008 07/29/2011 Class: Chronic Routine gynecological examination [...] Encounter Status:Closed by FAWAD LEONG on 11/24/23 [facility] [place] 11-12-2023 JOVANYN Telephone (AGSPINE2) SPENSER PUTNAM ([id number]) 1940 F Date Time Provider Department 11/12/23 AJ GRAHAMPINE2 During your visit today, we recorded the [...] as a reminder, I sent her a Meraki message as well. She was appreciative for [...] [L82.1] 06/23/2006 [facility]*08/24/2008 07/29/2011 Class: Chronic Routine gynecological examination [...] Raynaud's phenomen (more content not included)... Normal [facility] CNCOon 10-16-2023 CNCO Letter Text Normal [facility] CNOVon 10-16-2023 CNOV Office Visit (SPAGWO) CIARASPENSER ([id number]) 1940 F Date Time Provider Department 10/16/23 8:15 AM JACKSON SUMNER During your visit today, we recorded the following information about you: Pulse Respiration 70/minute 18/minute Jackson Sumner MD 10/16/2023 8:33 AM Signed [facility] [place] General Today's Date: 10/15/2023 Name: Spenser Putnam [...] Diagnostic only, NO steroids) left leg Functional Presybeterian: Physical Therapy Consultation (Land-Based) Follow-up: 2 months Depending on response to the above plan, consider: MBB/EWA, Synvisc One Knee; Genicular blocks/RFA Interval History: [...] Therapies Attended (Current or Most Recent): Jeremiah [facility] Physical Therapy 04/17/2023 [facility] SP[facility]ATION Questionnaire [...] of alcohol Types (more content not included)... [facility] [place] 10-16-2023 [facility] Telephone (SPAGWO) CIARASPENSER ([id number]) 1940 F Date Time Provider Department 10/16/23 SUMNER JACKSONJESÚS ERNANDEZ During your visit today, we recorded the following information about you: Ghazala Priscilla 10/16/2023 8:37 AM Signed Procedure(s) being scheduled: [...] No 9. Does this procedure require a straddle truck driver? Yes If yes, has patient been notified that a straddle truck driver is needed and must be present at [...] [L82.1] 06/23/2006 [facility]*08/24/2008 07/29/2011 Class: Chronic Routine gynecological examination [...] stenosis [M48.061] (more content not included)... Normal [facility] [place] 07-25-2023 JOVANYN Telephone (SPAGWO) CIARASPENSER MCKEON ([id number]) 1940 F Date Time Provider Department 07/25/23 AJ GRAHAM During your visit today, we recorded the following information about you: Beronica Mihcel 07/25/2023 2:54 PM Signed Procedure(s) being scheduled: [...] No 9. Does this procedure require a straddle truck driver? Yes If yes, has patient been notified that a straddle truck driver is needed and must be present at [...] Date Reviewed: 07/23/2023 Reviewed by: Aj Graham APRN.PLATEMAKER - Fully Assessed Reason for Visit: Injection [...] [L82.1] 06/23/2006 [facility]*08/24/2008 07/29/2011 Class: Chronic Routine gynecological examination [...] [M48.061] Internal hemorrhoids [K64.8] Medication management [Z79.899] (more content not included)... Normal [facility] CNPNahomi 07-18-2023 [facility] Telephone (AGSPINE1) CIARASPENSER MCKEON ([id number]) 1940 F Date Time Provider Department 07/18/23 DANII ROCA [facility]PINE1 During your visit today, we recorded the [...] [L82.1] 06/23/2006 [facility]*08/24/2008 07/29/2011 Class: Chronic Routine gynecological examination [...] Encounter Status:Closed by MEG CHAUDHARY on 07/18/23 [facility] Basic metabolic 2000 panelOr dered By: Lore Mcdonnell on 07-03-2023 Anion gap [Moles/Vol] 8 mmol/L Low 9 - 18 mmol/L [facility] Calcium [Mass/Vol] 10.1 mg/dL 8.5 - 10. 2 mg/dL [facility] Chloride [Moles/Vol] 104 mmol/L 97 - 10 5 mmol/L [facility] CO2 [Moles/Vol] 23 mmol/L 22 - 30 mmol/L [facility] Creatinine [Mass/Vol] 1.08 mg/dL High 0.58 - 0.96 mg/dL [facility] GFR/1.73 sq M.predicted among non-blacks MDRD (S/P/Bld) [Vol rate/Area] 51 mL/min/{1.73_m2} Low - PINF [facility] Comment on above: Estimated Glomerular Filtration [...] 129 mg/dL High 74 - 99 mg/dL [facility] Comment on above: The [place] Diabete s Association (ADA) provides guidance for [...] Standards of Medical Care in Diabetes 2016, [place] Diabetes Association. Diabetes Care. 2016.39(Suppl 1). Interpretation and review of laboratory results Abnormal [facility] Potassium [Moles/Vol] 4.7 mmol/L 3.7 - 5.1 mmol/L [facility] Sodium [Moles/Vol] 135 mmol/L Low 136 - 144 mmol/L [facility] Urea nitrogen [Mass/Vol] 23 mg/dL High 7 - 21 mg/dL [facility] CNCOon 06-26-2023 CNCO Letter Text Normal [facility] CNOVon 06-26-2023 CNOV Office Visit (SPAGWO) CIARASPENSER MCKEON ([id number]) 1940 F Date Time Provider Department 06/26/23 3:00 PM AJ GRAHAM During your visit today, we recorded the following information about you: Pulse Respiration 90/minute 16/minute Minnie Delaney MA 06/26/2023 5:26 PM Signed Review of Systems [...] The patient is not nervous/anxious. Aj Graham APRN.PLATEMAKER 06/26/2023 5:26 PM Signed [facility] [place] General Today's Date: 06/26/2023 Name: Spenser Putnam [...] <10 04/30/2023 (more content not included)... Normal [facility] CNPNahomi 06-26-2023 JOVANYN Telephone (SPAGWO) SPENSER PUTNAM ([id number]) 1940 F Date Time Provider Department 06/26/23 [...] No 9. Does this procedure require a straddle truck driver? Yes If yes, has patient been notified that a straddle truck driver is needed and must be present at [...] vaccine.) Priscilla Vivar Allergies As of Date: 06/26/2023 Noted Allergy [...] [L82.1] 06/23/2006 [facility]*08/24/2008 07/29/2011 Class: Chronic Routine gynecological examination [...] hemorrhoids [K (more content not included)... Normal [facility] CNPNon 06-24-2023 CNPN Telephone (AGSPINE3) NADINEHIEUSPENSER MANN ([id number]) 1940 F Date Time Provider Department 06/24/23 [...] Fully Assessed Reason for Visit: Patient Question [1327] Prescriptions as of 06/24/2023 - nystatin (MYCOSTATIN) [...] [L82.1] 06/23/2006 [facility]*08/24/2008 07/29/2011 Class: Chronic Routine gynecological examination [...] Encounter Status:Closed by JACKSON SUMNER on 06/24/23 [facility] C-REACTIVE PROTEIN (CRP)on 0 06-17-2023 CRP [Mass/Vol] <0.9 mg/dL [facility] ESR Westergren method (Bld) [Velocity]on 06-17-2023 ESR (Bld) [Velocity] 8 mm/h 0 - 20 mm/hr Cl [facility] URIC ACID BLOODon 06-17-2023 Urate [Mass/Vol] 6.9 mg/dL High 2.5 - 6.6 mg/dL [facility] CNPNon 05-28-2023 CNPN Telephone (AGSPINE3) SPENSER PUTNAM ([id number]) 1940 F Date Time Provider Department 05/28/23 [...] [L82.1] 06/23/2006 [facility]*08/24/2008 07/29/2011 Class: Chronic Routine gynecological examination [...] Status:Closed by ASHUTOSH VANCE on 05/28/23 Normal [facility] US OTHER-INJECTION (POC) [place] USE ONLYon 05-26-2023 [facility] XR Knee - bilateral 4 Viewso n 04-17-2023 [facility] XR Lumbar spine 3 Viewson IMPRESSION: DEGENERATIVE, POSTOPERATIVE CHANGE AND ALIGNMENT ABNORMALITIES DESCRIBED Pile Driver: DARRYL Transcribe Date/Time: Mar 24 2023 12:48P Dictated by : BRAD BRAN MD This examination was interpreted and the report reviewed and electronically signed by: BRAD BRAN MD on Mar 24 2023 12:50PM [facility] DIVISION OF RADIOLOGY * * *Final [...] joints appear unremarkable DIVISION OF RADIOLOGY Provider, [facility] - 03/24/2023 * * *Final Report* * [...] DEGENERATIVE, POSTOPERATIVE CHANGE AND ALIGNMENT ABNORMALITIES DESCRIBED Pile Driver: DARRYL Transcribe Date/Time: Mar 24 2023 12:48P Dictated by : BRAD BRAN MD This examination was interpreted and the report reviewed and electronically signed by: BRAD BRAN MD on Mar 24 2023 12:50PM EST [facility] XR Lumbar spine 3 ViewsOrder ed By: Ccf Provider on 03-24-2023 [facility] XR Lumbar spine 3 Viewson Radiology Study observation (narrative) [facility] XR Pelvis and Hip - right AP and Lateral frogon 03-03-2023 IMPRESSION: Mild to moderate degenerative change with prominent spurring at the right hip similar to the previous Pile Driver: DARRYL Transcribe Date/Time: Mar 03 2023 8:51P Dictated by : CHILO COOK MD This examination was interpreted and the report reviewed and electronically signed by: CHILO COOK MD on Mar 03 2023 8:52PM [facility] DIVISION OF RADIOLOGY * * *Final [...] L3 to L5 DIVISION OF RADIOLOGY Provider, [facility] - 03/03/2023 * * *Final Report* * [...] the right hip similar to the previous Pile Driver: DARRYL Transcribe Date/Time: Mar 03 2023 8:51P Dictated by : CHILO COOK MD This examination was interpreted and the report reviewed and electronically signed by: CHILO COOK MD on Mar 03 2023 8:52PM EST [facility] XR Pelvis and Hip - right AP and Lateral frogOrdered By: Ccf Provider on 03-03-2023 [facility] XR Pelvis and Hip - right AP and Lateral frogon 02-25-2023 Radiology Study observation (narrative) [facility] US THYROID/PARATHYROIDon [facility] UA DIP, URINE (POC)on 2022 BILIRUBIN UA (POCT) Negative Negative [facility] CLARITY UA (POCT) Clear [facility] COLOR UA (POCT) Yellow [facility] GLUCOSE UA (POCT) Negative Negative mg/dL [facility] HEMOGLOBIN/BLOOD UA (POCT) Large Abnormal Negative [facility] KETONE UA (POCT) Negative Negative mg/dL [facility] LEUKOCYTES UA (POCT) Large Abnormal Negative [facility] NITRITE UA (POCT) Positive Abnormal Negative [facility] PH UA (POCT) 5.5 4.5 - 8.0 [facility] Protein Ql (U) Negative Negative mg/dL [facility] SPECIFIC GRAVITY UA (POCT) 1.025 1.005 - 1.030 [facility] UROBILINOGEN UA (POCT) 0.2 E.U./dL Leatha l E.U./dL [facility] UA DIP, URINE (POC)on 2022 BILIRUBIN UA (POCT) Negative Negative [facility] CLARITY UA (POCT) Cloudy [facility] COLOR UA (POCT) Dark yellow [facility] GLUCOSE UA (POCT) Negative Negative mg/dL [facility] HEMOGLOBIN/BLOOD UA (POCT) Trace-intact Abnormal Negative [facility] KETONE UA (POCT) Negative Negative mg/dL [facility] LEUKOCYTES UA (POCT) Small [facility]normal Negative [facility] NITRITE UA (POCT) Negative Negative [facility] PH UA (POCT) 5.5 4.5 - 8.0 [facility] Protein Ql (U) Negative Negative mg/dL [facility] SPECIFIC GRAVITY UA (POCT) 1.010 1.005 - 1.030 [facility] UROBILINOGEN UA (POCT) 0.2 E.U./dL Leatha l E.U./dL [facility] CBC W Auto Differential pane l (Bld)on 04-19-2022 Basophils (Bld) [#/Vol] 0.03 10*3/uL <0.11 k/uL [facility] Basophils/100 WBC (Bld) 0.4 % [facility] Differential cell count method Nom (Bld) Auto [facility] Eosinophils (Bld) [#/Vol] 0.14 10*3/uL <0.46 k/uL [facility] Eosinophils/100 WBC (Bld) 1.6 % [facility] Erythrocyte distribution width (RBC) [Ratio] 12.8 % 11.5 - 15.0 % [facility] Hematocrit (Bld) [Volume fraction] 37.3 % 36.0 - 46.0 % [facility] Hemoglobin (Bld) [Mass/Vol] 12.0 g/dL 11.5 - 15.5 g/dL [facility] Immature granulocytes (Bld) [#/Vol] 0.04 10*3/uL <0.10 k/uL [facility] Immature granulocytes/100 WBC (Bld) 0.5 % [facility] Lymphocytes (Bld) [#/Vol] 2.19 10*3/uL 1.00 - 4.00 k/uL [facility] Lymphocytes/100 WBC (Bld) 25.6 % [facility] MCH (RBC) [Entitic mass] 31.2 pg 26.0 - 34.0 pg [facility] MCHC (RBC) [Mass/Vol] 32.2 g/dL 30.5 - 36.0 g/dL [facility] MCV (RBC) [Entitic vol] 96.9 fL 80.0 - 100.0 fL [facility] Monocytes (Bld) [#/Vol] 0.79 10*3/uL <0.87 k/uL [facility] Monocytes/100 WBC (Bld) 9.2 % [facility] Neutrophils (Bld) [#/Vol] 5.38 10*3/uL 1.45 - 7.50 k/uL [facility] Neutrophils/100 WBC (Bld) 62.7 % [facility] Nucleated RBC (Bld) [#/Vol] <0.01 k/uL [facility] Nucleated RBC/100 WBC (Bld) [Ratio] 0.0 /100 WBC [facility] Platelet mean volume (Bld) [Entitic vol] 9.5 fL 9.0 - 12.7 fL [facility] Platelets (Bld) [#/Vol] 216 10*3/uL 150 - 400 k/uL [facility] RBC (Bld) [#/Vol] 3.85 10*6/uL Low 3.90 - 5.2 0 m/uL [facility] WBC (Bld) [#/Vol] 8.57 10*3/uL 3.70 - 11. 00 k/uL [facility] MRI BRAIN WO IVCONon 17-2 022 [facility] Clinical Summary: Aníbal cook 05-31-2021 75 OP Visit Invalid Interpretation Code [facility] Work Phone: Vital Signs Date Time Vital Sign Value Performing Clinician Facility 12-22-2024 14:30-0400 Body temperature 98.1 [degF] Dr. Juan Spann MD Work Phone: [facility] 12-22-2024 14:30-0400 Diastolic blood pressure 59 mm[Hg] Dr. Juan Spann MD Work Phone: [facility] 12-22-2024 14:30-0400 Heart rate 69 /min Dr. Juan Spann MD Work Phone: [facility] 12-22-2024 14:30-0400 Respiratory rate 16 /min Dr. Juan Spann MD Work Phone: [facility] 12-22-2024 14:30-0400 SaO2% (BldA) [Mass fraction] 96 % Dr. Juan Spann MD Work Phone: [facility] 12-22-2024 14:30-0400 Systolic blood pressure 128 mm[Hg] Dr. Juan Spann MD Work Phone: [facility] 12-21-2024 22:23-0400 Body height 157.[address] Juan Spann MD Work Phone: [facility] 12-21-2024 22:23-0400 Body mass index (BMI) [Ratio] 25.4 kg/m2 Dr. Juan Spann MD Work Phone: [facility] 12-21-2024 22:23-0400 Body weight 63.[address] Juan Spann MD Work Phone: [facility] 09-17-2024 08:41-0400 Body height 153 cm Juan Spann MD Work Phone: [facility] 09-17-2024 08:41-0400 Body mass index (BMI) [Ratio] 27.13 kg/m2 Juan Spann MD Work Phone: [facility] 09-17-2024 08:41-0400 Body weight 63.5 kg Juan Spann MD Work Phone: [facility] 09-17-2024 08:41-0400 Diastolic blood pressure 72 mm[Hg] Juan Spann MD Work Phone: [facility] 09-17-2024 08:41-0400 Heart rate 82 /min Juan Spann MD Work Phone: [facility] 09-17-2024 08:41-0400 Respiratory rate 12 /min Juan Spann MD Work Phone: [facility] 09-17-2024 08:41-0400 SaO2% (BldA) [Mass fraction] 98 % Juan Spann MD Work Phone: [facility] 09-17-2024 08:41-0400 Systolic blood pressure 116 mm[Hg] Juan Spann MD Work Phone: [facility] 07-07-2024 13:08-0400 Body mass index (BMI) [Ratio] 24.44 kg/m2 Jamey Collier MD Work Phone: [facility] 07-07-2024 13:08-0400 Body temperature 98.2 [degF] Jamey Collier MD Work Phone: [facility] 07-07-2024 13:08-0400 Body weight 60.6 kg Jamey Collier MD Work Phone: [facility] 07-07-2024 13:08-0400 Diastolic blood pressure 67 mm[Hg] Jamey Collier MD Work Phone: [facility] 07-07-2024 13:08-0400 Heart rate 76 /min Jamey Collier MD Work Phone: [facility] 07-07-2024 13:08-0400 Respiratory rate 16 /min Jamey Collier MD Work Phone: [facility] 07-07-2024 13:08-0400 SaO2% (BldA) [Mass fraction] 99 % Jamey Collier MD Work Phone: [facility] 07-07-2024 13:08-0400 Systolic blood pressure 147 mm[Hg] Jamey Collier MD Work Phone: [facility] 06-24-2024 09:49-0400 Body temperature 96.8 [degF] Jamey Collier MD Work Phone: [facility] 06-24-2024 09:49-0400 Diastolic blood pressure 72 mm[Hg] Jamey Collier MD Work Phone: [facility] 06-24-2024 09:49-0400 Heart rate 79 /min Jamey Collier MD Work Phone: [facility] 06-24-2024 09:49-0400 Respiratory rate 15 /min Jamey Collier MD Work Phone: [facility] 06-24-2024 09:49-0400 SaO2% (BldA) [Mass fraction] 94 % Jamey Collier MD Work Phone: [facility] 06-24-2024 09:49-0400 Systolic blood pressure 149 mm[Hg] Jamey Collier MD Work Phone: [facility] 06-24-2024 06:46-0400 Body mass index (BMI) [Ratio] 25.4 kg/m2 Jamey Collier MD Work Phone: [facility] 06-24-2024 06:46-0400 Body weight 63 kg Jamey Collier MD Work Phone: [facility] 06-02-2024 10:55-0400 Body mass index (BMI) [Ratio] 25.24 kg/m2 Juan Spann MD Work Phone: [facility] 06-02-2024 10:55-0400 Body weight 62.6 kg Juan Spann MD Work Phone: [facility] 06-02-2024 10:55-0400 Diastolic blood pressure 60 mm[Hg] Juan Spann MD Work Phone: [facility] 06-02-2024 10:55-0400 Heart rate 64 /min Juan Spann MD Work Phone: [facility] 06-02-2024 10:55-0400 Respiratory rate 16 /min Juan Spann MD Work Phone: [facility] 06-02-2024 10:55-0400 Systolic blood pressure 112 mm[Hg] Juan Spann MD Work Phone: [facility] 05-04-2024 13:00-0500 Heart rate 90 /min Aj Prebish 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 ENGINEER.PLATEMAKER Work Phone: [facility] 05-04-2024 13:00-0500 Respiratory rate 18 /min Aj Prebish 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 ENGINEER.PLATEMAKER Work Phone: [facility] 05-04-2024 13:00-0500 SaO2% (BldA) [Mass fraction] 96 % Aj Graham YURY Work Phone: [facility] 05-03-2024 13:48-0500 Body weight 63.96 kg Jamey Collier MD Work Phone: [facility] 05-03-2024 13:48-0500 Diastolic blood pressure 85 mm[Hg] Jamey Collier MD Work Phone: [facility] Comment on above: taken [facility] 05-03-2024 13:48-0500 Heart rate 101 /min Jamey Collier MD Work Phone: [facility] 05-03-2024 13:48-0500 Systolic blood pressure 156 mm[Hg] Jamey Collier MD Work Phone: [facility] Comment on above: taken [facility] 04-27-2024 15:13-0500 Diastolic blood pressure 65 mm[Hg] Danii Roca MD, PhD Work Phone: [facility] 04-27-2024 15:13-0500 Heart rate 71 /min Danii Roca MD, PhD Work Phone: [facility] 04-27-2024 15:13-0500 Respiratory rate 17 /min Danii Roca MD, PhD Work Phone: [facility] 04-27-2024 15:13-0500 SaO2% (BldA) [Mass fraction] 93 % Danii Roca MD, PhD Work Phone: [facility] 04-27-2024 15:13-0500 Systolic blood pressure 131 mm[Hg] Danii Roca MD, PhD Work Phone: [facility] 03-23-2024 14:53-0500 Diastolic blood pressure 81 mm[Hg] Danii Roca MD, PhD Work Phone: [facility] 03-23-2024 14:53-0500 Heart rate 78 /min Danii Roca MD, PhD Work Phone: [facility] 03-23-2024 14:53-0500 Respiratory rate 20 /min Danii Roca MD, PhD Work Phone: [facility] 03-23-2024 14:53-0500 SaO2% (BldA) [Mass fraction] 98 % Danii Roca MD, PhD Work Phone: [facility] 03-23-2024 14:53-0500 Systolic blood pressure 143 mm[Hg] Danii Roca MD, PhD Work Phone: [facility] 03-19-2024 13:03-0500 Body mass index (BMI) [Ratio] 25.97 kg/m2 Destini Lay PA-C Work Phone: [facility] 03-19-2024 13:03-0500 Body temperature 97.81 [degF] Destini Lay PA-C Work Phone: [facility] 03-19-2024 13:03-0500 Body weight 64.41 kg Destini Lay PA-C Work Phone: [facility] 03-19-2024 13:03-0500 Diastolic blood pressure 60 mm[Hg] Destini Lay PA-C Work Phone: [facility] 03-19-2024 13:03-0500 Heart rate 76 /min Destini Lay PA-C Work Phone: [facility] 03-19-2024 13:03-0500 Respiratory rate 16 /min Destini Lay PA-C Work Phone: [facility] 03-19-2024 13:03-0500 Systolic blood pressure 110 mm[Hg] Destini Lay PA-C Work Phone: [facility] 01-30-2024 12:52-0500 Diastolic blood pressure 78 mm[Hg] Danii Roca MD, PhD Work Phone: [facility] 01-30-2024 12:52-0500 Heart rate 50 /min Danii Roca MD, PhD Work Phone: [facility] 01-30-2024 12:52-0500 Respiratory rate 17 /min Danii Roca MD, PhD Work Phone: [facility] 01-30-2024 12:52-0500 SaO2% (BldA) [Mass fraction] 97 % Danii Roca MD, PhD Work Phone: [facility] 01-30-2024 12:52-0500 Systolic blood pressure 130 mm[Hg] Danii Roca MD, PhD Work Phone: [facility] 01-29-2024 09:31-0500 Heart rate 89 /min Danii Roca MD, PhD Work Phone: [facility] 01-29-2024 09:31-0500 Respiratory rate 17 /min Danii Roca MD, PhD Work Phone: [facility] 01-29-2024 09:31-0500 SaO2% (BldA) [Mass fraction] 99 % Danii Roca MD, PhD Work Phone: [facility] 01-13-2024 14:02-0500 Heart rate 86 /min Aj Prebish 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 ENGINEER.PLATEMAKER Work Phone: [facility] 01-13-2024 14:02-0500 Respiratory rate 16 /min Aj Prebish 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 ENGINEER.PLATEMAKER Work Phone: [facility] 01-13-2024 14:02-0500 SaO2% (BldA) [Mass fraction] 99 % Aj Prebish 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 ENGINEER.PLATEMAKER Work Phone: [facility] 12-17-2023 11:38-0400 Body mass index (BMI) [Ratio] 26.7 kg/m2 Destini Lay PA-C Work Phone: [facility] 12-17-2023 11:38-0400 Body temperature 97.2 [degF] Destini Lay PA-C Work Phone: [facility] 12-17-2023 11:38-0400 Body weight 66.22 kg Destini Lay PA-C Work Phone: [facility] 12-17-2023 11:38-0400 Diastolic blood pressure 76 mm[Hg] Destini Lay PA-C Work Phone: [facility] 12-17-2023 11:38-0400 Heart rate 80 /min Destini Lay PA-C Work Phone: [facility] 12-17-2023 11:38-0400 Respiratory rate 16 /min Destini Lay PA-C Work Phone: [facility] 12-17-2023 11:38-0400 Systolic blood pressure 120 mm[Hg] Destini Lay PA-C Work Phone: [facility] 12-11-2023 10:27-0400 Heart rate 84 /min Aj Prebish 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 ENGINEER.PLATEMAKER Work Phone: [facility] 12-11-2023 10:27-0400 Respiratory rate 16 /min Aj Prebish 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 ENGINEER.PLATEMAKER Work Phone: [facility] 12-11-2023 10:27-0400 SaO2% (BldA) [Mass fraction] 98 % Aj Prebish 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.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 Work Phone: [facility] 11-28-2023 10:10-0400 Body mass index (BMI) [Ratio] 25.97 kg/m2 Destini Lay PA-C Work Phone: [facility] 11-28-2023 10:10-0400 Body temperature 97.9 [degF] Destini Lay PA-C Work Phone: [facility] 11-28-2023 10:10-0400 Body weight 64.41 kg Destini Lay PA-C Work Phone: [facility] 11-28-2023 10:10-0400 Diastolic blood pressure 60 mm[Hg] Destini Lay PA-C Work Phone: [facility] 11-28-2023 10:10-0400 Heart rate 80 /min Destini Lay PA-C Work Phone: [facility] 11-28-2023 10:10-0400 Respiratory rate 16 /min Destini Lay PA-C Work Phone: [facility] 11-28-2023 10:10-0400 SaO2% (BldA) [Mass fraction] 100 % Destini Lay PA-C Work Phone: [facility] 11-28-2023 10:10-0400 Systolic blood pressure 110 mm[Hg] Destini Lay PA-C Work Phone: [facility] 11-21-2023 09:15-0400 Diastolic blood pressure 57 mm[Hg] Danii Roca MD, PhD Work Phone: [facility] 11-21-2023 09:15-0400 Heart rate 75 /min Danii Roca MD, PhD Work Phone: [facility] 11-21-2023 09:15-0400 Respiratory rate 16 /min Danii Roca MD, PhD Work Phone: [facility] 11-21-2023 09:15-0400 SaO2% (BldA) [Mass fraction] 100 % Danii Roca MD, PhD Work Phone: [facility] 11-21-2023 09:15-0400 Systolic blood pressure 109 mm[Hg] Danii Roca MD, PhD Work Phone: [facility] 10-16-2023 08:14-0400 Heart rate 70 /min Jackson Sumner MD Work Phone: [facility] 10-16-2023 08:14-0400 Respiratory rate 18 /min Jackson Sumner MD Work Phone: [facility] 10-16-2023 08:14-0400 SaO2% (BldA) [Mass fraction] 96 % Jackson Sumner MD Work Phone: [facility] 09-17-2023 13:00-0400 Body height 157.5 cm Juan Spann MD Work Phone: [facility] 09-17-2023 13:00-0400 Body mass index (BMI) [Ratio] 26.7 kg/m2 Juan Spann MD Work Phone: [facility] 09-17-2023 13:00-0400 Body weight 66.22 kg Juan Spann MD Work Phone: [facility] 09-17-2023 13:00-0400 Diastolic blood pressure 62 mm[Hg] Juan Spann MD Work Phone: [facility] 09-17-2023 13:00-0400 Heart rate 90 /min Juan Spann MD Work Phone: [facility] 09-17-2023 13:00-0400 Respiratory rate 18 /min Juan Spann MD Work Phone: [facility] 09-17-2023 13:00-0400 SaO2% (BldA) [Mass fraction] 99 % Juan Spann MD Work Phone: [facility] 09-17-2023 13:00-0400 Systolic blood pressure 108 mm[Hg] Juan Spann MD Work Phone: [facility] 08-06-2023 14:49-0400 Diastolic blood pressure 80 mm[Hg] Jackson Sumner MD Work Phone: [facility] 08-06-2023 14:49-0400 Heart rate 80 /min Jackson Sumner MD Work Phone: [facility] 08-06-2023 14:49-0400 Respiratory rate 15 /min Jackson Sumner MD Work Phone: [facility] 08-06-2023 14:49-0400 SaO2% (BldA) [Mass fraction] 98 % Jackson Sumner MD Work Phone: [facility] 08-06-2023 14:49-0400 Systolic blood pressure 129 mm[Hg] Jackson Sumner MD Work Phone: [facility] 07-17-2023 09:43-0400 Diastolic blood pressure 74 mm[Hg] Danii Roca MD Work Phone: [facility] 07-17-2023 09:43-0400 Heart rate 86 /min Danii Roca MD Work Phone: [facility] 07-17-2023 09:43-0400 Respiratory rate 18 /min Danii Roca MD Work Phone: [facility] 07-17-2023 09:43-0400 SaO2% (BldA) [Mass fraction] 96 % Danii Roca MD Work Phone: [facility] 07-17-2023 09:43-0400 Systolic blood pressure 115 mm[Hg] Danii Roca MD Work Phone: [facility] 06-26-2023 14:52-0400 Heart rate 90 /min Aj Prebish 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 ENGINEER.PLATEMAKER Work Phone: [facility] 06-26-2023 14:52-0400 Respiratory rate 16 /min Aj Prebish 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 ENGINEER.PLATEMAKER Work Phone: [facility] 06-26-2023 14:52-0400 SaO2% (BldA) [Mass fraction] 98 % Aj Prebish 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 ENGINEER.PLATEMAKER Work Phone: [facility] 06-17-2023 11:34-0400 Body temperature 98.01 [degF] Destini ESPARZA-C Work Phone: [facility] 06-17-2023 11:34-0400 Body weight 68.04 kg Destini ESPARZA-C Work Phone: [facility] 06-17-2023 11:34-0400 Diastolic blood pressure 68 mm[Hg] Destini Lay PA-C Work Phone: [facility] 06-17-2023 11:34-0400 Heart rate 92 /min Destini Lay PA-C Work Phone: [facility] 06-17-2023 11:34-0400 Respiratory rate 16 /min Destini ESPARZA-C Work Phone: [facility] 06-17-2023 11:34-0400 SaO2% (BldA) [Mass fraction] 98 % Destini Lay PA-C Work Phone: [facility] 06-17-2023 11:34-0400 Systolic blood pressure 118 mm[Hg] Destini Lay PA-C Work Phone: [facility] 05-26-2023 09:02-0400 Diastolic blood pressure 66 mm[Hg] Jackson Sumner MD Work Phone: [facility] 05-26-2023 09:02-0400 Heart rate 78 /min Jackson Sumner MD Work Phone: [facility] 05-26-2023 09:02-0400 Respiratory rate 15 /min Jackson Sumner MD Work Phone: [facility] 05-26-2023 09:02-0400 SaO2% (BldA) [Mass fraction] 97 % Jackson Sumner MD Work Phone: [facility] 05-26-2023 09:02-0400 Systolic blood pressure 100 mm[Hg] Jackson Sumner MD Work Phone: [facility] 04-30-2023 15:43-0500 Diastolic blood pressure 54 mm[Hg] Jackson Sumner MD Work Phone: [facility] 04-30-2023 15:43-0500 Heart rate 83 /min Jackson Sumner MD Work Phone: [facility] 04-30-2023 15:43-0500 Respiratory rate 18 /min Jackson Sumner MD Work Phone: [facility] 04-30-2023 15:43-0500 SaO2% (BldA) [Mass fraction] 96 % Jackson Sumner MD Work Phone: [facility] 04-30-2023 15:43-0500 Systolic blood pressure 114 mm[Hg] Jackson Sumner MD Work Phone: [facility] 04-17-2023 13:59-0500 Heart rate 75 /min Jackson Sumner MD Work Phone: [facility] 04-17-2023 13:59-0500 Respiratory rate 16 /min Jackson Sumner MD Work Phone: [facility] 04-17-2023 13:59-0500 SaO2% (BldA) [Mass fraction] 99 % Jackson Sumner MD Work Phone: [facility] 02-10-2023 10:46-0500 Body temperature 97.39 [degF] Rl Corado MD Work Phone: [facility] 02-10-2023 10:46-0500 Body weight 71.67 kg Rl Corado MD Work Phone: [facility] 02-10-2023 10:46-0500 Diastolic blood pressure 72 mm[Hg] Rl Corado MD Work Phone: [facility] 02-10-2023 10:46-0500 Heart rate 82 /min Rl Corado MD Work Phone: [facility] 02-10-2023 10:46-0500 Respiratory rate 16 /min Rl Corado MD Work Phone: [facility] 02-10-2023 10:46-0500 SaO2% (BldA) [Mass fraction] 96 % Rl Corado MD Work Phone: [facility] 02-10-2023 10:46-0500 Systolic blood pressure 120 mm[Hg] Rl Corado MD Work Phone: [facility] 12-27-2022 12:23-0400 Body temperature 97.59 [degF] Lauren Nuñez 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 ENGINEER.PLATEMAKER Work Phone: [facility] 12-27-2022 12:23-0400 Body weight 70.76 kg Lauren Nuñez 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 ENGINEER.PLATEMAKER Work Phone: [facility] 12-27-2022 12:23-0400 Diastolic blood pressure 84 mm[Hg] Lauren Nuñez 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 ENGINEER.PLATEMAKER Work Phone: [facility] 12-27-2022 12:23-0400 Heart rate 92 /min Lauren Nuñez 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 ENGINEER.PLATEMAKER Work Phone: [facility] 12-27-2022 12:23-0400 Respiratory rate 20 /min Lauren Nuñez 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 ENGINEER.PLATEMAKER Work Phone: [facility] 12-27-2022 12:23-0400 SaO2% (BldA) [Mass fraction] 97 % Lauren Nuñez 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 ENGINEER.PLATEMAKER Work Phone: [facility] 12-27-2022 12:23-0400 Systolic blood pressure 151 mm[Hg] Lauren Nuñez 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 ENGINEER.PLATEMAKER Work Phone: [facility] 07-22-2022 13:26-0400 Body height 156.8 cm Juan Spann MD Work Phone: [facility] 07-22-2022 13:26-0400 Body weight 71.22 kg Juan Spann MD Work Phone: [facility] 07-22-2022 13:26-0400 Diastolic blood pressure 78 mm[Hg] Juan Spann MD Work Phone: [facility] 07-22-2022 13:26-0400 Heart rate 90 /min Juan Spann MD Work Phone: [facility] 07-22-2022 13:26-0400 Respiratory rate 16 /min Juan Spann MD Work Phone: [facility] 07-22-2022 13:26-0400 Systolic blood pressure 122 mm[Hg] Juan Spann MD Work Phone: [facility] 07-15-2022 15:05-0400 Body temperature 96.8 [degF] Mariama Joyce 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 ENGINEER.PLATEMAKER Work Phone: [facility] 07-15-2022 15:05-0400 Body weight 71.67 kg Mariama Joyce 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 ENGINEER.PLATEMAKER Work Phone: [facility] 07-15-2022 15:05-0400 Diastolic blood pressure 80 mm[Hg] Mariama Isiah KHAN.PLATEMAKER Work Phone: [facility] 07-15-2022 15:05-0400 Heart rate 82 /min Mariama Isiah KHAN.PLATEMAKER Work Phone: [facility] 07-15-2022 15:05-0400 Respiratory rate 18 /min Mariama Joyce ERIN.PLATEMAKER Work Phone: [facility] 07-15-2022 15:05-0400 SaO2% (BldA) [Mass fraction] 98 % Mariama Joyce ERIN.PLATEMAKER Work Phone: [facility] 07-15-2022 15:05-0400 Systolic blood pressure 130 mm[Hg] Mariama Isiah KHAN.PLATEMAKER Work Phone: [facility] 04-19-2022 12:40-0500 Body weight 73.48 kg Destini Lay PA-C Work Phone: [facility] 04-19-2022 12:40-0500 Diastolic blood pressure 70 mm[Hg] Destini Lay PA-C Work Phone: [facility] 04-19-2022 12:40-0500 Heart rate 89 /min Destini Lay PA-C Work Phone: [facility] 04-19-2022 12:40-0500 Respiratory rate 16 /min Destini Lay PA-C Work Phone: [facility] 04-19-2022 12:40-0500 SaO2% (BldA) [Mass fraction] 98 % Destini Lay PA-C Work Phone: [facility] 04-19-2022 12:40-0500 Systolic blood pressure 134 mm[Hg] Destini Lay PA-C Work Phone: [facility] 12-03-2021 12:45-0400 Body temperature 98.49 [degF] Destini Lay PA-C Work Phone: [facility] 12-03-2021 12:45-0400 Body weight 71.67 kg Destini Lay PA-C Work Phone: [facility] 12-03-2021 12:45-0400 Diastolic blood pressure 76 mm[Hg] Destini Lay PA-C Work Phone: [facility] 12-03-2021 12:45-0400 Heart rate 88 /min Destini Lay PA-C Work Phone: [facility] 12-03-2021 12:45-0400 Respiratory rate 18 /min Destini Lay PA-C Work Phone: [facility] 12-03-2021 12:45-0400 Systolic blood pressure 120 mm[Hg] Destini Lay PA-C Work Phone: [facility] 09-05-2021 11:57-0400 Body temperature 97.9 [degF] Destini Lay PA-C Work Phone: [facility] 09-05-2021 11:57-0400 Body weight 73.94 kg Destini Lay PA-C Work Phone: [facility] 09-05-2021 11:57-0400 Diastolic blood pressure 62 mm[Hg] Destini Lay PA-C Work Phone: [facility] 09-05-2021 11:57-0400 Heart rate 88 /min Destini Lay PA-C Work Phone: [facility] 09-05-2021 11:57-0400 Respiratory rate 16 /min Destini Lay PA-C Work Phone: [facility] 09-05-2021 11:57-0400 Systolic blood pressure 110 mm[Hg] Destini Lay PA-C Work Phone: [facility] NEGATED: Highlighted [id number] 12:12-0400 Body height 157.48 cm Jes Garcia LPN [facility] Work Phone: NEGATED: Highlighted [id number] 12:120400 Body height 157 cm Jes Garcia LPN [facility] Work Phone: NEGATED: Highlighted [id number] 12:12-0400 Body mass index (BMI) [Ratio] 30.1 kg/m2 Jes Garcia LPN [facility] Work Phone: NEGATED: Highlighted [id number] 12:12-040 Body weight 74.39 kg Jes Garcia LPN [facility] Work Phone: NEGATED: Highlighted [id number] 12:120400 Body weight 75 kg Jes Garcia LPN [facility] Work Phone: Encounters Encounter Date Encounter Type Care Provider Facility Start: 01-18-2025 End: 01-18-2025 ambulatory Fazal Jackson Facility:[facility] [place] Start: 01-17-2025 ambulatory Dequan Ayala Facility :[facility] Start: 01-11-2025 End: 01-11-2025 ambulatory JUAN SPANN Facility:[facility] Start: 01-03-2025 End: 01-03-2025 ambulatory DEQUAN AYALA Facility:[facility] Start: 12-29-2024 End: 12-29-2024 ambulatory DESTINI LAY Facility:[facility] Start: 12-22-2024 Non-patient / Non-visit Dr. Prema Carbone DO [facility] Work Phone: Start: 12-22-2024 ambulatory Familia Ng Facility:[facility] Start: 12-22-2024 Non-patient / Non-visit Dr. Carlton [facility]ALL -[facility] Start: 12-21-2024 End: 12-22-2024 ambulatory Chelsea Carbone Facility:[facility] Start: 12-21-2024 End: 12-22-2024 Evaluation and management of inpatient Dr. Chelsea Carbone DO -[facility] Work Phone: Start: 12-21-2024 End: 12-22-[address] Juan Spann MD Work Phone: -Progressive Care Unit Start: 12-18-2024 End: 12-18-2024 ambulatory JUAN SPANN Facility:[facility] Start: 12-06-2024 End: 12-06-2024 ambulatory JUAN SPANN Facility:[facility] Start: 11-17-2024 End: 11-17-2024 Refill Juan Spann MD Work Phone: [facility] Comment on above: Refill Request Start: 10-08-2024 End: 10-08-2024 Subsequent hospital visit by physician [facility] Work Phone: Radiology Comment on above: Multiple thyroid nod ules [E04.2] Start: 10-08-2024 End: 10-08-2024 ambulatory JUAN SPANN Facility:[facility] Start: 10-01-2024 End: 10-01-2024 Follow-up encounter Destini Lay PA-C Work Phone: [facility] Start: 09-17-2024 End: 09-17-2024 ambulatory JUAN SPANN Facility:[facility] Start: 09-17-2024 End: 09-17-2024 Patient encounter procedure Juan Spann MD Work Phone: [facility] Comment on above: Medicare annual well ness [...] Start: 09-17-2024 End: 09-17-2024 ambulatory JUAN SPANN Facility:[facility] Start: 07-07-2024 End: 07-07-2024 Postop follow up visit related to original px Jamey Collier MD Work Phone: [facility] [place] Comment on above: 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); S/P insertion of spinal cord stimulator Start: 07-07-2024 End: 07-07-2024 ambulatory JAMEY COLLIER [facility] Start: 07-05-2024 End: 07-05-2024 Refill Sujatha Saldana APRN.CNP Work Phone: [facility] Comment on above: Refill Request Start: 06-28-2024 End: 06-28-2024 Refill Destini Lay PA-C Work Phone: [facility] [place] Comment on above: Refill Request Start: 06-24-2024 End: 06-24-2024 ambulatory JAMEY COLLIER [facility] Start: 06-24-2024 End: 06-24-2024 Subsequent hospital visit by physician Jamey Collier MD Work Phone: [facility] Comment on above: 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) Start: 06-22-2024 End: 06-22-2024 Follow-up encounter Thang Shannon MD Work Phone: [facility] [place] Comment on above: Results Start: 06-18-2024 End: 06-18-2024 ambulatory THANG SHANNON Facility:[facility] Start: 06-17-2024 End: 06-17-2024 Telephone encounter Juan Spann MD Work Phone: [facility] [place] Comment on above: Question Start: 06-17-2024 End: 06-17-2024 Preprocedural examination done Med Echo/Stress [facility] Work Phone: Start: 06-17-2024 End: 06-17-2024 Subsequent hospital visit by physician Med Echo/Stress [facility] Comment on above: Preoperative examina tion; Systolic murmur; Leg swelling Start: 06-17-2024 End: 06-17-2024 ambulatory JUAN SPANN Facility:[facility] Start: 06-16-2024 End: 06-16-2024 ambulatory [facility] Start: 06-16-2024 End: 06-16-2024 Encounter for other preprocedural examination [facility] Start: 06-07-2024 End: 06-08-2024 Follow-up encounter Thang Shannon MD Work Phone: [facility] [place] Comment on above: Results Start: 06-07-2024 End: 06-07-2024 ambulatory JUAN SPANN Facility:[facility] Start: 06-03-2024 End: 06-03-2024 Follow-up encounter Juan Spann MD Work Phone: [facility] [place] Comment on above: Results Start: 06-02-2024 End: 06-02-2024 ambulatory JUAN SPANN Facility:[facility] Start: 06-02-2024 Encounter for other preprocedural examination DESTINI LAY [facility] Start: 06-02-2024 End: 06-02-2024 ambulatory JUAN SPANN Facility:[facility] Start: 06-02-2024 End: 06-02-2024 Patient encounter procedure Juan Spann MD Work Phone: [facility] [place] Comment on above: Pre-op examination ( Primary Dx); Lumbar radiculopathy; Essential hypertension with goal blood pressure less than 140/90 Start: 06-02-2024 End: 06-02-2024 Preprocedural examination done Juan Spann MD Work Phone: [facility] Work Phone: Start: 05-24-2024 End: 05-24-2024 Refill Juan Spann MD Work Phone: [facility] [place] Comment on above: Refill Request Start: 05-18-2024 End: 05-18-2024 Telephone encounter Aj Graham APRN.CNP Work Phone: [facility] Comment on above: Refill Request (jerald coxib (CELEBREX) 200 mg capsule) Start: 05-12-2024 End: 05-12-2024 Telephone encounter Danii Roca MD, PhD Work Phone: [facility] Comment on above: Patient Update (SCS IMPLANT ) Start: 05-04-2024 End: 05-04-2024 Patient encounter procedure Aj Graham PLATEMAKER Work Phone: [facility] Comment on above: Spinal stenosis, lum bar region, without neurogenic claudication (Primary Dx); Lumbar spondylosis; Lumbar radiculopathy Start: 05-04-2024 End: 05-04-2024 ambulatory JUAN [facility] Facility:[facility] Start: 05-03-2024 End: 05-03-2024 Office outpatient new 45 minutes Jamey Collier MD Work Phone: [facility] Comment on above: 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) Start: 05-03-2024 End: 05-03-2024 ambulatory JAMEY COLLIER [facility] Start: 05-03-2024 End: 05-03-2024 ambulatory DANII ROCA Facility:[facility] Start: 05-03-2024 End: 05-03-2024 Subsequent hospital visit by physician Alix Replaced By [facility] [place] Work Phone: Radiology Comment on above: Lumbar radiculopathy [M54.16] Start: 04-27-2024 End: 04-27-2024 Patient encounter procedure Danii Roca MD, PhD Work Phone: [facility] Start: 04-27-2024 End: 04-27-2024 ambulatory Danii Roca MD, PhD Work Phone: [facility] Comment on above: Procedure (Scs trial ); Back Pain (Lower - bilateral - left is worse) Start: 04-26-2024 End: 04-26-2024 Telephone encounter Danii Roca MD, PhD Work Phone: [facility] Comment on above: Patient Question Start: 04-21-2024 End: 04-21-2024 Telephone encounter Danii Roca MD, PhD Work Phone: [facility] Comment on above: Patient Update (SCS TRIAL SCHEDULE ) Patient Update (CALL ED PATIENT SPOKE TO DAUGHTER AND SPENSER THEY BOTH CONFIRMED 04/27/24 IS A GOOD DAY ) Start: 04-20-2024 End: 04-20-2024 ambulatory Aj Prebish 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 ENGINEER.PLATEMAKER Work Phone: [facility] Comment on above: Frustrated Start: 04-20-2024 End: 04-20-2024 Telephone encounter Danii Roca MD Work Phone: [facility] Comment on above: SCS update Start: 04-19-2024 End: 04-19-2024 Refill Juan Spann MD Work Phone: [facility] Comment on above: Refill Request Start: 04-13-2024 End: 04-13-2024 Telemedicine consultation with patient Aj Graham APRN.PLATEMAKER Work Phone: [facility] Start: 04-13-2024 End: 04-13-2024 ambulatory Aj Prebish 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 ENGINEER.PLATEMAKER Work Phone: [facility] Comment on above: Lumbar radiculopathy (Primary Dx); Spinal stenosis, lumbar region, without neurogenic claudication; Lumbar spondylosis Start: 04-05-2024 End: 04-05-2024 Refill Juan Spann MD Work Phone: [facility] Comment on above: Refill Request Start: 03-25-2024 End: 03-25-2024 Telephone encounter Danii Roca MD, PhD Work Phone: [facility] Comment on above: Procedure Follow Up (SCOTT TEFESI) Start: 03-23-2024 End: 03-23-2024 Patient encounter procedure Danii Roac MD, PhD Work Phone: [facility] Start: 03-23-2024 End: 03-23-2024 ambulatory Danii Roca MD, PhD Work Phone: [facility] [place] Comment on above: Procedure (BL TFESI Lumbar) Start: 03-22-2024 End: 03-22-2024 Telephone encounter Destini Lay PA-C Work Phone: [facility] [place] Comment on above: Results Start: 03-19-2024 End: 03-19-2024 ambulatory JUAN SPANN Facility:[facility] Start: 03-19-2024 End: 03-19-2024 Patient encounter procedure Destini Lay PA-C Work Phone: [facility] [place] Comment on above: Essential hypertensi on with goal blood pressure less than 140/90 (Primary Dx); Mixed hyperlipidemia; Raynaud's phenomenon without gangrene; Valvular heart disease; Lumbar radiculopathy; Multiple thyroid nodules Start: 03-16-2024 End: 03-19-2024 ambulatory Juan Spann MD Work Phone: [facility] [place] Comment on above: Ropinole and another question Start: 03-09-2024 End: 03-09-2024 Refill Juan Spann MD Work Phone: [facility] Comment on above: Refill Request Start: 02-13-2024 End: 02-13-2024 Refill Destini Lay PA-C Work Phone: [facility] Comment on above: Refill Request Start: 02-02-2024 End: 02-02-2024 Telephone encounter Danii Roca MD, PhD Work Phone: [facility] Comment on above: Procedure Start: 01-30-2024 End: 01-30-2024 Patient encounter procedure Danii Roca MD, PhD Work Phone: [facility] Start: 01-30-2024 End: 01-30-2024 ambulatory Danii Roca MD, PhD Work Phone: [facility] Comment on above: Procedure (Caudal ); Leg Pain (Right - to the ankle) Start: 01-29-2024 End: 01-29-2024 Patient encounter procedure Danii Roca MD, PhD Work Phone: [facility] Comment on above: Lumbar radiculopathy (Primary Dx); Spinal stenosis, lumbar region, without neurogenic claudication Start: 01-29-2024 End: 01-29-2024 ambulatory JUAN SPANN Facility:[facility] Start: 01-17-2024 ambulatory JUAN SPANN [facility] ty:[phone] Start: 01-17-2024 End: 01-17-2024 Subsequent hospital visit by physician [facility] Work Phone: [facility] Comment on above: Pain in thoracic spi ne [M54.6] Start: 01-13-2024 End: 01-13-2024 Patient encounter procedure Aj Prebish 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 ENGINEER.PLATEMAKER Work Phone: [facility] Comment on above: Lumbar radiculopathy (Primary Dx); Spinal stenosis, lumbar region, without neurogenic claudication; Lumbar spondylosis; Disorder of sacrum Start: 01-13-2024 End: 01-13-2024 ambulatory JUAN SPANN Facility:[facility] Start: 01-12-2024 End: 01-12-2024 Telephone encounter Aj Prebish 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 ENGINEER.PLATEMAKER Work Phone: [facility] Comment on above: Patient Question (Pa in meds not working) Start: 01-05-2024 End: 01-05-2024 Patient encounter procedure Stanton Mesa DO Work Phone: [facility] Comment on above: Encounter for assess ment of healthcare decision-making capacity (Primary Dx) Start: 12-31-2023 End: 12-31-2023 ambulatory Aj Prebish 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 ENGINEER.PLATEMAKER Work Phone: [facility] Start: 12-31-2023 End: 12-31-2023 Patient encounter procedure Aj Prebish 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 ENGINEER.PLATEMAKER Work Phone: [facility] Comment on above: Request Start: 12-26-2023 End: 12-26-2023 Refill Destini Lay PA-C Work Phone: [facility] [place] Comment on above: Refill Request Start: 12-18-2023 End: 12-19-2023 ambulatory Jackson Sumner MD Work Phone: [facility] Start: 12-18-2023 End: 12-19-2023 Patient encounter procedure Jackson Sumner MD Work Phone: [facility] Comment on above: Request Start: 12-18-2023 End: 12-18-2023 Telephone encounter Destini Lay PA-C Work Phone: [facility] [place] Comment on above: Results Start: 12-17-2023 End: 12-17-2023 Patient encounter procedure Destini Lay PA-C Work Phone: [facility] Comment on above: Essential hypertensi on with goal blood pressure less than 140/90 (Primary Dx); Encounter for immunization Start: 12-11-2023 End: 12-11-2023 Telephone encounter Aj Graham APRN.CNP Work Phone: [facility] Comment on above: Consult Start: 12-11-2023 End: 12-11-2023 Patient encounter procedure Aj Graham APRN.PLATEMAKER Work Phone: [facility] Comment on above: Lumbar radiculopathy (Primary Dx); Spinal stenosis, lumbar region, without neurogenic claudication; Lumbar spondylosis; Pain in thoracic spine Start: 12-11-2023 End: 12-11-2023 ambulatory JUAN SPANN Facility:[facility] Start: 12-08-2023 End: 12-10-2023 ambulatory Jackson Sumenr MD Work Phone: [facility] Start: 12-08-2023 End: 12-10-2023 Patient encounter procedure Jackson Sumner MD Work Phone: [facility] Comment on above: Decision Start: 12-01-2023 End: 12-01-2023 ambulatory Zo Metcalf RN Work Phone: [employer] Start: 12-01-2023 End: 12-01-2023 Telephone encounter [...] ambulatory Destini Lay PA-C Work Phone: [facility] [place] Start: 11-27-2023 End: 11-28-2023 Patient encounter procedure Destini Lay PA-C Work Phone: [facility] [place] Comment on above: Appointment tomorrow Start: 11-24-2023 End: 11-24-2023 Telephone encounter Danii Roca MD, PhD Work Phone: [facility] Comment on above: Procedure Start: 11-21-2023 End: 11-21-2023 ambulatory Danii Roca MD, PhD Work Phone: [facility] [place] Comment on above: Procedure (LEFT TFES I LUMBAR); Back Pain (LOWER - BILATERAL ); Leg Pain (LEFT ) Start: 11-21-2023 End: 11-21-2023 Patient encounter procedure Danii Roca MD, PhD Work Phone: [facility] Start: 11-21-2023 End: 11-21-2023 ambulatory [facility] Facility:[facility] Start: 11-17-2023 End: 11-17-2023 ambulatory Zo Metcalf RN Work Phone: [employer] Start: 11-17-2023 End: 11-17-2023 Chart abstracting Kelle Joyce MA [facility] [place] Comment on above: Hospital F/U ([facility] ) Transition Of Care I nitial phone contact for Transitional Care Management Start: 11-17-2023 End: 11-17-2023 E-mail encounter from caregiver Kelle Isiah [facility] [place] Start: 11-17-2023 End: 11-17-2023 Patient encounter procedure Kelle Joyce MA [facility] [place] Comment on above: Appointment Start: 11-14-2023 End: 11-14-2023 Chart abstracting Kelle Joyce MA [facility] [place] Comment on above: ER F/U ([facility] ) Start: 11-13-2023 End: 11-13-2023 ambulatory Jackson Sumner MD Work Phone: [facility] Start: 11-13-2023 End: 11-13-2023 Patient encounter procedure Jackson Sumner MD Work Phone: [facility] Comment on above: Medication Problem Start: 11-12-2023 End: 11-12-2023 Telephone encounter Aj Graham APRN.CNP Work Phone: [facility] [place] Comment on above: Medication Problem Start: 11-09-2023 End: 11-11-2023 Telephone encounter Juan Spann MD Work Phone: [facility] [place] Comment on above: Results Start: 10-31-2023 End: 10-31-2023 Subsequent hospital visit by physician Bone Density Replaced By [facility] Work Phone: Radiology Comment on above: Osteopenia, senile [ M85.80] Start: 10-16-2023 Telephone encounter Jackson Sumner MD Work Phone: [facility] Comment on above: Injections Start: 10-16-2023 End: 10-16-2023 Patient encounter procedure Jackson Sumner MD Work Phone: [facility] Comment on above: Lumbar radiculopathy (Primary Dx); Spinal stenosis, lumbar region, without neurogenic claudication; Primary osteoarthritis of both knees Start: 10-16-2023 End: 10-16-2023 ambulatory JACKSON SUMNER Facility:[facility] Start: 09-30-2023 ambulatory Jackson Sumner MD Work Phone: [facility] Start: 09-30-2023 Patient encounter procedure Jackson Sumner MD Work Phone: [facility] Comment on above: Help please Start: 09-29-2023 End: 09-29-2023 Subsequent hospital visit by physician [facility] Work Phone: Radiology Comment on above: Multiple thyroid nod ules [E04.2] Start: 09-17-2023 End: 09-17-2023 Patient encounter procedure Juan Spann MD Work Phone: [facility] [place] Comment on above: Medicare annual well [...] 08-17-2023 Refill Sujatha reyes APRN.CNP Work Phone: [facility] Comment on above: Refill Request Start: 08-11-2023 End: 08-11-2023 OT/PT/Speech Visit [facility] Comment on above: 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); Lumbar radiculopathy; Lumbar spondylosis; Disorder of sacrum Start: 08-06-2023 End: 08-06-2023 Patient encounter procedure Jackson Sumner MD Work Phone: [facility] Start: 08-06-2023 End: 08-06-2023 ambulatory Jackson Sumner MD Work Phone: [facility] [place] Comment on above: Injections (LEFT GEN ICULAR RFA); Knee Pain (LEFT) Start: 07-25-2023 End: 07-25-2023 ambulatory London Frye PT Work Phone: [place] [facility] Start: 07-25-2023 End: 07-25-2023 Telephone encounter Aj Graham APRN.PLATEMAKER Work Phone: [facility] Comment on above: Injection Questions Lumbar radiculopathy ; Spinal stenosis, lumbar region, without neurogenic claudication; Lumbar spondylosis; Disorder of sacrum Start: 07-23-2023 End: 07-23-2023 Telemedicine consultation with patient Aj Graham APRN.PLATEMAKER Work Phone: [facility] [place] Start: 07-23-2023 End: 07-23-2023 ambulatory Aj Graham APRN.PLATEMAKER Work Phone: [facility] [place] Comment on above: 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 (Primary Dx) Start: 07-18-2023 Telephone encounter Danii natarajan MD Work Phone: [facility] [place] Comment on above: Procedure Follow Up (Dr. Roca 07/17/23) Start: 07-17-2023 End: 07-17-2023 Patient encounter procedure Danii Roca MD Work Phone: [facility] [place] Start: 07-17-2023 End: 07-17-2023 ambulatory Danii Roca MD Work Phone: [facility] [place] Comment on above: Procedure (RIGHT GEN ICULAR ); Knee Pain (LEFT KNEE PAIN) Start: 07-10-2023 Refill Destini Logan on PA-C Work Phone: [facility] [place] Comment on above: Refill Request Start: 07-04-2023 Telephone encounter Destini rosario PA-C Work Phone: [facility] [place] Comment on above: Results Start: 07-03-2023 Telephone encounter Destini rosario PA-C Work Phone: [facility] [place] Comment on above: Results Start: 06-30-2023 Refill Juan zuleta MD Work Phone: [facility] [place] Comment on above: Refill Request Start: 06-26-2023 End: 06-26-2023 Office outpatient visit 25 minutes Aj Graham APRN.PLATEMAKER Work Phone: [facility] Comment on above: 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 (Primary Dx); Lumbar radiculopathy; Spinal stenosis, lumbar region, without neurogenic claudication; Lumbar spondylosis; Disorder of sacrum; Malignant melanoma of right shoulder (HCC) Start: 06-26-2023 End: 06-26-2023 ambulatory JUAN SPANN Facility:[facility] Start: 06-26-2023 Telephone encounter Aj sosa APRN.PLATEMAKER Work Phone: [facility] Comment on above: Injections (Question s) Start: 06-24-2023 End: 06-24-2023 ambulatory Nurse Intm/Famp Triage Replaced By [facility] Work Phone: Nurse Phone Triage Comment on above: Left Toe/Ankle Pain Start: 06-24-2023 Telephone encounter Jackson Sumner MD Work Phone: [facility] [place] Comment on above: Patient Question Start: 06-18-2023 Telephone encounter Destini rosario PA-C Work Phone: [facility] [place] Comment on above: Results Start: 06-17-2023 End: 06-17-2023 Patient encounter procedure Destini Lay PA-C Work Phone: [employer] [facility] [place] Comment on above: Great toe pain, left (Primary Dx); Candidiasis of skin; Spinal stenosis of lumbar region, unspecified whether neurogenic claudication present Start: 05-28-2023 Telephone encounter Jackson Sumner MD Work Phone: [facility] [place] Comment on above: Procedure Follow Up (LEFT KNEE INJECTION) Start: 05-26-2023 End: 05-26-2023 Patient encounter procedure Jackson Sumner MD Work Phone: [facility] Start: 05-26-2023 End: 05-26-2023 ambulatory Jackson Sumner MD Work Phone: [facility] [place] Comment on above: Procedure (L. Knee i njection) Start: 05-18-2023 Refill Juan zuleta MD Work Phone: [facility] Comment on above: Refill Request Start: 05-12-2023 Telephone encounter Jackson Sumner MD Work Phone: [facility] [place] Start: 05-08-2023 Refill Sujatha reyes APRN.CNP Work Phone: [facility] [place] Comment on above: Refill Request Start: 05-02-2023 Telephone encounter Jackson Sumner MD Work Phone: [facility] [place] Comment on above: Procedure Follow Up (Spoke with patient following up from procedure. Patient states they are doing well, no questions or concerns at this time. //Liudmila Ta MA) Start: 05-01-2023 Refill Destini Logan on PA-C Work Phone: [facility] [place] Comment on above: Refill Request Start: 04-30-2023 End: 04-30-2023 ambulatory Jackson Sumner MD Work Phone: [facility] [place] Comment on above: Injections (TFESI) Start: 04-30-2023 End: 04-30-2023 Patient encounter procedure Jackson Sumner MD Work Phone: [facility] Start: 04-17-2023 End: 04-17-2023 Subsequent hospital visit by physician Alix Replaced By [facility] [place] Work Phone: Radiology Comment on above: 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 [M17.0] Start: 04-17-2023 End: 04-17-2023 Patient encounter procedure Jackson Sumner MD Work Phone: [facility] Comment on above: Spinal stenosis, lum bar region, without neurogenic claudication (Primary Dx); Lumbar radiculopathy; Lumbar spondylosis; Primary osteoarthritis of both knees Start: 04-17-2023 Telephone encounter Jackson Sumner MD Work Phone: [facility] Comment on above: Injection Questions Start: 04-14-2023 Refill Destini Logan on PA-C Work Phone: [facility] [place] Comment on above: Refill Request Start: 03-21-2023 End: 03-21-2023 Subsequent hospital visit by physician Xr Replaced By [facility] [place] Work Phone: Radiology Comment on above: Spinal stenosis of l umbar region, unspecified whether neurogenic claudication present [M48.061] Start: 02-25-2023 End: 02-25-2023 Subsequent hospital visit by physician Xr Replaced By [facility] [place] Work Phone: Radiology Comment on above: Acute hip pain, righ t [M25.551] Start: 02-17-2023 ambulatory Juan zuleta MD Work Phone: [facility] [place] Comment on above: covid Start: 02-14-2023 ambulatory Rl das MD Work Phone: [facility] Comment on above: Sinus Problem Start: 02-10-2023 End: 02-10-2023 Patient encounter procedure Rl Corado MD Work Phone: [facility] Comment on above: Acute non-recurrent sinusitis, unspecified location (Primary Dx) Start: 12-27-2022 End: 12-27-2022 Patient encounter procedure Lauren Nuñez 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 ENGINEER.PLATEMAKER Work Phone: [facility] Comment on above: Paronychia of finger of right hand (Primary Dx) Start: 12-20-2022 Refill Destini Logan on PA-C Work Phone: [facility] [place] Comment on above: Refill Request Start: 12-06-2022 End: 12-06-2022 ambulatory [facility] [place] Work Phone: [facility] [place] Start: 11-15-2022 Refill Juan zuleta MD Work Phone: [facility] [place] Comment on above: Refill Request Start: 10-17-2022 Refill Juan zuleta MD Work Phone: [facility] [place] Comment on above: Refill Request Start: 10-14-2022 Refill Nathalie Liang MA [facility] Comment on above: Refill Request Start: 10-10-2022 Refill Juan zuleta MD Work Phone: [facility] [place] Comment on above: Refill Request Start: 09-16-2022 ambulatory Wendi Alonso RN [employer] Comment on above: low blood pressure Start: 07-29-2022 End: 07-29-2022 Subsequent hospital visit by physician [facility] Work Phone: Radiology Comment on above: Multiple thyroid nod ules [E04.2] Start: 07-22-2022 End: 07-22-2022 Patient encounter procedure Juan Spann MD Work Phone: [facility] [place] Comment on above: Medicare annual [facility] visit, subsequent (Primary Dx); Essential hypertension with goal blood pressure less than 140/90; Mixed hyperlipidemia; Bilateral leg edema; Multiple thyroid nodules; Insomnia, unspecified type; Restless leg syndrome; Malignant melanoma of right shoulder (HCC); Vitamin D deficiency; Valvular heart disease; Vertigo; Dysuria; Urine frequency; Advance directive discussed with patient Start: 07-15-2022 End: 07-15-2022 Patient encounter procedure Mariama Joyce APRN.CNP Work Phone: [facility] Comment on above: Urinary frequency (P rimary Dx) Start: 07-07-2022 Refill Destini mann PA-C Work Phone: [facility] Comment on above: Refill Request Start: 05-23-2022 Telephone encounter Destini rosario PA-C Work Phone: [facility] Comment on above: Results Start: 05-20-2022 Refill Sujatha reyes APRN.CNP Work Phone: [facility] Comment on above: Refill Request Start: 05-18-2022 Refandrade Hurtado Work Phone: [facility] Comment on above: Refill Request Start: 05-16-2022 Refill Destini Logan on PA-C Work Phone: [facility] Comment on above: Refill Request Start: 05-07-2022 Refill Destini Logan on PA-C Work Phone: [facility] Comment on above: Refill Request Start: 04-22-2022 Telephone encounter Destini rosario PA-C Work Phone: [facility] Comment on above: Results Start: 04-19-2022 End: 04-19-2022 Office outpatient visit 25 minutes Destini Lay PA-C Work Phone: [facility] Comment on above: Pruritus (Primary Dx ); Hypokalemia; Essential hypertension with goal blood pressure less than 140/90; Abnormal thyroid blood test; Mixed hyperlipidemia; Vitamin D deficiency Start: 04-16-2022 Refill Destini Logan on PA-C Work Phone: [facility] Comment on above: Refill Request Start: 01-04-2022 End: 01-04-2022 Refill Juan Spann MD Work Phone: [facility] Comment on above: Refill Request Start: 12-17-2021 Telephone encounter Dequan haines MD Work Phone: Orthopaedics Comment on above: Patient Update Start: 12-04-2021 Refill Destini Logan on PA-C Work Phone: [facility] Comment on above: Refill Request Start: 12-03-2021 End: 12-03-2021 Patient encounter procedure Destini Lay PA-C Work Phone: [facility] Comment on above: Mixed hyperlipidemia (Primary Dx); Essential hypertension with goal blood pressure less than 140/90; Restless leg syndrome; Vertigo; Carpal tunnel syndrome, left; Valvular heart disease Start: 10-25-2021 Telephone encounter Destini rosario PA-C Work Phone: [facility] [place] Comment on above: Results Start: 10-24-2021 End: 10-24-2021 Subsequent hospital visit by physician Mri Radio Replaced By [facility] Wstr (I-Stat/1.5t) Work Phone: Radiology Comment on above: Injury of head, init ial encounter [S09.90XA] Start: 10-17-2021 Refill Destini mann PA-C Work Phone: [facility] Comment on above: Refill Request Start: 09-20-2021 Telephone encounter Juan Spann MD Work Phone: [facility] [place] Comment on above: Patient Update Start: 09-05-2021 End: 09-05-2021 Patient encounter procedure Destini ESPARZA-C Work Phone: [facility] Comment on above: Vertigo (Primary Dx) ; Injury of head, initial encounter Start: 08-27-2021 ambulatory Juan zuleta MD Work Phone: [facility] Comment on above: Issue Start: 07-09-2021 Refill Juan zuleta MD Work Phone: [facility] [place] Comment on above: Refill Request Start: 06-24-2021 Refill Juan zuleta MD Work Phone: [facility] Comment on above: Refill Request Start: 04-23-2021 Patient encounter procedure Juan Spann MD Work Phone: [facility] Work Phone: Start: 10-13-2014 End: 03-27-2016 Patient encounter status Juan Spann MD Work Phone: [facility] Start: 08-24-2008 End: 07-29-2011 Patient encounter status Juan Spann MD Work Phone: [facility] Work Phone: Procedures Date Procedure Procedure Detail Performing Clinician Start: 12-22-[address] Juan Spann MD Work Phone: Start: 10-14-2025 Urnls dip stick/tabl et reagent auto microscopy [...] 01-17-2024 Mri spinal canal thoracic w/o contrast matrl Aj Graham APRN.PLATEMAKER Work Phone: Start: 11-28-2023 PFIZER-BIONTECH COVI D-19 [...] Phone: Start: 12-06-2022 PFIZER-BIONTECH COVI D-19 VACCINE (2022- SEASON) AGE 12+ YR Lyle Sainz MD [...] stick/tabl et rgnt auto w/o microscopy Leidy Yeek 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 ENGINEER.PLATEMAKER Work Phone: Start: 01-04-2022 INFLUENZA SEASONAL QUADRIVALENT [...] Detail Author Start: 09-18-2027 Diabetes Screening Diabetes Screenid g [facility] Start: 06-19-2027 Diabetes Screening Diabetes Screenid g [facility] Start: 06-08-2027 Diabetes Screening Diabetes Screenin g [facility] Start: 06-03-2027 Diabetes Screening Diabetes Screenin g [facility] Start: 11-27-2026 Diabetes Screening Diabetes Screenin g [facility] Start: 11-04-2026 Diabetes Screening Diabetes Screenin g [facility] Start: 09-14-2026 Diabetes Screening Diabetes Screenin g [facility] Start: 07-02-2026 Diabetes Screening Diabetes Screenid g [facility] Start: 09-17-2025 Anxiety Screening Anxiety Screening [facility] Start: 09-17-2025 Depression Screening Depression Scre ening [facility] Start: 09-17-2025 Medicare Annual Well ness Visit Medicare Annual Wellness Visit [facility] Start: 09-17-2025 Urine microalbumin profile DTaP,Tdap,Td Vaccine (2 - Tdap) [facility] Comment on above: Postponed from 09/16 (Insurance Coverage) Start: 04-19-2025 DIABETES SCREEN DIABETES SCREEN [facility] Start: 04-19-2025 Diabetes Screening Diabetes Screenid g [facility] Start: 03-21-2025 End: 03-21-2025 Patient encounter procedure 03/21/2025 12:20 PM EST Office Visit [facility] [address] [place] [address] Destini Lay PA-C [address] [place], [place] [phone] follow up 6 months [facility] Comment on above: follow up 6 months Start: 03-04-2025 End: 06-03-2025 CBC W Auto Differential panel - Blood COMPLETE BLOOD COUNT AND DIFFERENTIAL Lab Routine Anemia, chronic disease Expected: 03/04/2025, Expires: 06/03/2025 [facility] Comment on above: Expected: 03/04/2025 , Expires: 06/03/2025 Start: 03-04-2025 End: 06-03-2025 Hepatic function 2000 panel - Serum or Plasma HEPATIC FUNCTION PNL Lab Routine Mixed hyperlipidemia Expected: 03/04/2025, Expires: 06/03/2025 [facility] Comment on above: Expected: 03/04/2025 , Expires: 06/03/2025 Start: 03-04-2025 End: 06-03-2025 LIPID PANEL, NONFASTING LIPID PANEL, NONFASTING Lab Routine Essential hypertension with goal blood pressure less than 140/90 Mixed hyperlipidemia Expected: 03/04/2025, Expires: 06/03/2025 [facility] Comment on above: Expected: 03/04/2025 , Expires: 06/03/2025 Start: 12-22-2024 Patient discharge [facility] Start: 12-21-2024 Following clinical pathway protocol [facility] Start: 12-21-2024 Assessment of risk o f venous thromboembolism [facility] Start: 12-21-2024 Insertion of cathete r into peripheral vein [facility] Start: 12-21-2024 Measuring intake and output [facility] Start: 12-21-2024 Providing care accor ding to standard [facility] Start: 12-21-2024 Provision of activit y privileges [facility] Start: 12-21-2024 Referral for physica l therapy [facility] Start: 12-21-2024 Referral to occupati onal therapist [facility] Start: 12-21-2024 [facility] Start: 12-21-2024 Admission procedure [facility] Start: 12-21-2024 [facility] Start: 12-03-2024 DIABETES SCREEN DIABETES SCREEN [facility] Start: 11-08-2024 Influenza vaccination Influenza Vacc ine (#1) [facility] Start: 10-08-2024 End: 10-08-2024 Patient encounter procedure [facility] Comment on above: Bruit [R09.89] Multiple thyroid nod ules [E04.2] Start: 09-17-2024 End: 12-17-2024 25-hydroxyvitamin D3 [Mass/volume] in Serum or Plasma [facility] Comment on above: Expected: 09/17/2024 , Expires: 12/17/2024 Start: 09-17-2024 End: 12-17-2024 Cobalamin (Vitamin B12) [Mass/volume] in Serum or Plasma [facility] Work Phone: Comment on above: Expected: 09/17/2024 , Expires: 12/17/2024 Start: 09-17-2024 End: 12-17-2024 Comprehensive metabolic 2000 panel - Serum or Plasma [facility] Comment on above: Expected: 09/17/2024 , Expires: 12/17/2024 Start: 09-17-2024 End: 12-17-2024 Magnesium [Mass/volume] in Serum or Plasma [facility] Comment on above: Expected: 09/17/2024 , Expires: 12/17/2024 Start: 09-17-2024 End: 12-17-2024 Thyrotropin [Units/volume] in Serum or Plasma [facility] Comment on above: Expected: 09/17/2024 , Expires: 12/17/2024 Start: 09-17-2024 End: 12-17-2024 Urinalysis complete panel - Urine URINALYSIS, WITH MICROSCOPIC Lab Routine Essential hypertension with goal blood pressure less than 140/90 Mixed hyperlipidemia Expected: 09/17/2024, Expires: 12/17/2024 [facility] Comment on above: Expected: 09/17/2024 , Expires: 12/17/2024 Start: 09-17-2024 End: 09-17-2024 Patient encounter procedure [facility] Comment on above: Medicare Wellness Start: 09-16-2024 Covid-19 Vaccine ( season) Covid-19 Vaccine ( season) [facility] Comment on above: Postponed from 04/07 (Declined at this time) Start: 09-16-2024 RSV Vaccine (1 - 1-d ose 60+ series) RSV Vaccine (1 - 1-dose 60+ series) [facility] Comment on above: Postponed from 12/07 (Declined at this time) Start: 09-16-2024 Shingrix Vaccine (3 of 3) Shingrix Vaccine (3 of 3) [facility] Comment on above: Postponed from 11/09 (Insurance Coverage) Start: 09-16-2024 Urine microalbumin profile DTaP,Tdap,Td Vaccine (2 - Tdap) [facility] Comment on above: Postponed from 09/16 (Insurance Coverage) Start: 07-07-2024 End: 07-07-2024 Patient encounter procedure 07/07/2024 1:00 PM EDT Office Visit [facility] [address] [place] [address] [place] [address] Department [place] [address] [facility] Start: 07-06-2024 End: 07-06-2024 Patient encounter procedure 07/06/2024 3:00 PM EDT Office Visit [facility] [address] [address] Aj Graham APRN.PLATEMAKER [address] [place] [address] Follow up in 2 months [facility] Comment on above: Follow up in 2 month s Start: 06-24-2024 End: 06-24-2024 Admission to same day surgery center 06/24/2024 6:50 AM EDT - 06/24/2024 8:40 [place] [facility] [place] [address] [place] [address] [place] [address] Department [place] [address] Percutaneous Thoracic Spinal Cord Stimulator Electrodes and Generator Placement (Medtronic) [48193 (CPT ) +2 more] [facility] [place] Comment on above: Percutaneous Thoraci c Spinal Cord Stimulator Electrodes and Generator Placement (Medtronic) [95603 (CPT ) +2 more] Start: 06-24-2024 End: 06-24-2024 Prq impltj nstim electrode array epidural INSERTION, ELECTRODE LEAD, SPINAL CORD STIMULATOR Postlaminectomy syndrome of lumbar region 06/24/2024 6:50 AM EDT Virtual [facility] [place] Start: 06-24-2024 Subsequent hospital visit by physician 06/24/2024 5:20 AM EDT Hospital Encounter [facility] [place] [address] [place] [address] [place] [address] Department [place] [address] [facility] [place] Start: 06-07-2024 End: 09-06-2024 Comprehensive metabolic 2000 panel - Serum or Plasma COMPREHENSIVE METABOLIC PANEL Lab Routine Hyperkalemia Expected: 06/07/2024, Expires: 09/06/2024 [facility] Work Phone: Comment on above: Expected: 06/07/2024 , Expires: 09/06/2024 Start: 06-03-2024 End: 09-02-2024 Basic metabolic 2000 panel - Serum or Plasma BASIC METABOLIC PANEL Lab Routine Renal insufficiency Hyperkalemia Expected: 06/03/2024, Expires: 09/02/2024 [facility] Work Phone: Comment on above: Expected: 06/03/2024 , Expires: 09/02/2024 Start: 06-02-2024 End: 06-02-2024 Patient encounter procedure 06/02/2024 10:40 AM EDT Office Visit [facility] [address] [place] [address] Juan Spann MD [address] [place] [address] Pre op - Spinal Cod Stimulator [facility] Comment on above: Pre op - Spinal Cod Stimulator Start: 05-27-2024 COVID-19 Vaccine ( season) COVID-19 Vaccine ( season) [facility] Start: 05-27-2024 Covid-19 Vaccine ( season) Covid-19 Vaccine ( season) [facility] Start: 05-12-2024 End: 05-12-2024 Patient encounter procedure 05/12/2024 9:00 AM EST Procedure [facility] [address] [facility] [address] [place] [address] Danii Roca MD, PhD [address] [place] [address] [facility] consult [facility] Comment on above: [facility] consult Start: 05-08-2024 DIABETES SCREEN DIABETES SCREEN [facility] Start: 05-07-2024 End: 05-07-2024 Patient encounter procedure 05/07/2024 12:00 PM EST Procedure [facility] [address] [address] Danii Roca MD, PhD [address] [place] [address] [facility] consult [facility] Comment on above: [facility] consult Start: 05-04-2024 End: 05-04-2024 Patient encounter procedure 05/04/2024 1:00 PM EST Office Visit [facility] [address] [address] Aj Graham APRN.[employer] [address] [place] [address] LEAD PULL [facility] Comment on above: LEAD PULL Start: 04-27-2024 End: 04-27-2024 ambulatory [facility] Comment on above: Medtronic Dx: Lumbar radiculopathy [M54.16 (ICD-10-CM)]; Spinal stenosis, lumbar region, without neurogenic claudication [M48.061 (ICD-10-CM)] Start: 04-13-2024 End: 04-13-2024 Follow-up encounter 04/13/2024 4:00 PM EST [facility] [address] [facility] [address] [place] [address] Aj Graham APRN.PLATEMAKER [address] [place] [address] follow up from injections [facility] Comment on above: follow up from injec tions Start: 03-23-2024 End: 03-23-2024 ambulatory [facility] Comment on above: bilateral L2/3 TFESI , baby aspirin AUTH GOOD - CAD (MED ICARE A&B 03/10/24 - 03/09/25) bilateral L2/3 TFESI, baby aspirin Start: 03-19-2024 End: 03-19-2024 Patient encounter procedure [facility] Comment on above: 6 month followu up Start: 03-05-2024 End: 06-04-2024 CBC W Auto Differential panel - Blood COMPLETE BLOOD COUNT AND DIFFERENTIAL Lab Routine Anemia, unspecified type Expected: 03/05/2024, Expires: 06/04/2024 [facility] Comment on above: Expected: 03/05/2024 , Expires: 06/04/2024 Start: 03-05-2024 End: 06-04-2024 Hepatic function 2000 panel - Serum or Plasma HEPATIC FUNCTION PNL Lab Routine Mixed hyperlipidemia Elevated LFTs Expected: 03/05/2024, Expires: 06/04/2024 [facility] Comment on above: Expected: 03/05/2024 , Expires: 06/04/2024 Start: 03-05-2024 End: 06-04-2024 LIPID PANEL, NONFASTING LIPID PANEL, NONFASTING Lab Routine Mixed hyperlipidemia Expected: 03/05/2024, Expires: 06/04/2024 [facility] Comment on above: Expected: 03/05/2024 , Expires: 06/04/2024 Start: 01-30-2024 End: 01-30-2024 ambulatory 01/30/2024 12:10 PM EST Procedure [facility] [address] [id number] Danii Roca MD, PhD [address] [place] [address] JAROCHO MAGANA (TB) NPCR---- Caudal SHERMAN, baby aspirin [facility] Comment on above: AUTH GOOD (TB) NPCR- --- Caudal SHERMAN, baby aspirin Start: 01-29-2024 End: 01-29-2024 Patient encounter procedure 01/29/2024 9:30 AM EST Office Visit [facility] [address] [facility] [address] [place] [address] Danii Roca MD, PhD [address] [place], [place] [phone] [facility] consult [facility] Comment on above: SCS consult Start: 01-17-2024 End: 01-17-2024 Patient encounter procedure 01/17/2024 11:00 AM EST [facility]ointment [facility] [address] [facility] [address] [place] [address] Pain in thoracic spine [M54.6] [facility] Comment on above: Pain in thoracic spi ne [M54.6] Start: 01-15-2024 End: 01-15-2024 Patient encounter procedure 01/15/2024 10:45 AM EST Office Visit [facility] [address] [place], [place] [address] Aj Graham APRN.PLATEMAKER [address] [place], [place] [address] follow up SHERMAN [facility] Comment on above: follow up SHERMAN Start: 01-13-2024 End: 01-13-2024 Patient encounter procedure 01/13/2024 2:00 PM EST Office Visit [facility] [address] [facility] [address] [place], [place] [address] Aj Graham APRN.PLATEMAKER [address] [place], [place] [address] discuss new leg pain [facility] Comment on above: discuss new leg pain Start: 01-09-2024 End: 04-09-2024 Cobalamin (Vitamin B12) [Mass/volume] in Serum or Plasma VITAMIN B12 Lab Routine Vitamin B12 deficiency Expected: 01/09/2024, Expires: 04/09/2024 [facility] Work Phone: Comment on above: Expected: 01/09/2024 , Expires: 04/09/2024 Start: 01-05-2024 End: 01-05-2024 Patient encounter procedure 01/05/2024 1:00 PM EDT Office Visit [facility] [address] [place], [place] [id number] Stanton Mesa DO [address] [place] [address] [facility] Comment on above: SCS Start: 12-26-2023 End: 12-26-2023 ambulatory [facility] Comment on above: Caudal SHERMAN AUTH GOOD-- 4-03/09/2024 (TB) Caudal SHERMAN Start: 12-12-2023 End: 12-12-2023 Patient encounter procedure 12/12/2023 11:40 AM EDT Office Visit [facility] [address] [place], [place] [phone] Destini Lay PA-C [address] [place], [place] [phone] 2 week bp check [facility] [place] Comment on above: 2 week bp check Start: 12-11-2023 End: 12-11-2023 Patient encounter procedure 12/11/2023 10:15 AM EDT Office Visit [facility] [address] [place] [address] Aj Graham APRN.PLATEMAKER [address] [place], [place] [address] TFESI/2 month follow up [facility] Comment on above: TFESI/2 month follow up Start: 12-01-2023 End: 03-01-2024 Bacteria identified in Urine by Culture URINE CULTURE Microbiology Routine Recurrent UTI (urinary tract infection) Expected: 12/01/2023, Expires: 03/01/2024 [facility] Work Phone: Comment on above: Expected: 12/01/2023 , Expires: 03/01/2024 Start: 12-01-2023 End: 03-01-2024 Sodium [Moles/volume] in Serum or Plasma SODIUM/NA Lab Routine Hyponatremia Expected: 12/01/2023, Expires: 03/01/2024 [facility] Comment on above: Expected: 12/01/2023 , Expires: 03/01/2024 Start: 11-28-2023 End: 02-27-2024 Bacteria identified in Urine by Culture [facility] Comment on above: Expected: 11/28/2023 , Expires: 02/27/2024 Start: 11-28-2023 End: 02-27-2024 Basic metabolic 2000 panel - Serum or Plasma [facility] Comment on above: Expected: 11/28/2023 , Expires: 02/27/2024 Start: 11-28-2023 End: 02-27-2024 Cobalamin (Vitamin B12) [Mass/volume] in Serum or Plasma [facility] Comment on above: Expected: 11/28/2023 , Expires: 02/27/2024 Start: 11-28-2023 End: 02-27-2024 Ferritin [Mass/volume] in Serum or Plasma [facility] Comment on above: Expected: 11/28/2023 , Expires: 02/27/2024 Start: 11-28-2023 End: 02-27-2024 Folate [Mass/volume] in Serum or Plasma [facility] Comment on above: Expected: 11/28/2023 , Expires: 02/27/2024 Start: 11-28-2023 End: 02-27-2024 Iron and Iron binding capacity panel - Serum or Plasma [facility] Comment on above: Expected: 11/28/2023 , Expires: 02/27/2024 Start: 11-28-2023 End: 02-27-2024 Magnesium [Mass/volume] in Serum or Plasma MAGNESIUM Lab Routine Hypomagnesemia Expected: 11/28/2023, Expires: 02/27/2024 [facility] Comment on above: Expected: 11/28/2023 , Expires: 02/27/2024 Start: 11-28-2023 End: 02-27-2024 Urinalysis complete panel - Urine [facility] Work Phone: Comment on above: Expected: 11/28/2023 , Expires: 02/27/2024 Start: 11-28-2023 End: 11-28-2023 Patient encounter procedure 11/28/2023 10:20 AM EDT Office Visit [facility] [address] [place], [place] [address] Destini Lay PA-C [address] [place], [place] [phone] [facility] follow up - syncope [facility] Comment on above: [facility] ER follow up - s yncope Start: 11-21-2023 End: 11-21-2023 ambulatory [facility] Comment on above: Left TFESI w fluoro at S1 and L5-S1; 81mg asp AUTH GOOD (TB) MEDIC ARE A&B Left TFESI w fluoro at S1 and L5-S1; 81mg asp Start: 11-09-2023 Covid-19 Vaccine ( season) Covid-19 Vaccine ( season) [facility] Start: 11-09-2023 Influenza vaccination Influenza Vacc ine (#1) [facility] Start: 10-31-2023 End: 10-31-2023 Patient encounter procedure 10/31/2023 1:05 PM EDT Appointment Radiology [address] [place] [address] Osteopenia, senile [M85.80]; 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] Radiology Comment on above: Osteopenia, senile [ M85.80]; 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] Start: 10-18-2023 End: 01-17-2024 25-hydroxyvitamin D3 [Mass/volume] in Serum or Plasma VITAMIN D 25 HYDROXY Lab Routine Vitamin D deficiency Expected: 10/18/2023, Expires: 01/17/2024 [facility] Comment on above: Expected: 10/18/2023 , Expires: 01/17/2024 Start: 10-18-2023 End: 01-17-2024 ALK PHOS ISOENZYM BL ALK PHOS ISOENZYM BL Lab Routine Elevated alkaline phosphatase level Expected: 10/18/2023, Expires: 01/17/2024 [facility] Comment on above: Expected: 10/18/2023 , Expires: 01/17/2024 Start: 10-18-2023 End: 01-17-2024 Basic metabolic 2000 panel - Serum or Plasma BASIC METABOLIC PANEL Lab Routine Hyponatremia Expected: 10/18/2023, Expires: 01/17/2024 [facility] Comment on above: Expected: 10/18/2023 , Expires: 01/17/2024 Start: 10-18-2023 End: 01-17-2024 CBC W Auto Differential panel - Blood COMPLETE BLOOD COUNT AND DIFFERENTIAL Lab Routine Anemia, unspecified type Expected: 10/18/2023, Expires: 01/17/2024 [facility] Comment on above: Expected: 10/18/2023 , Expires: 01/17/2024 Start: 10-18-2023 End: 01-17-2024 Cobalamin (Vitamin B12) [Mass/volume] in Serum or Plasma VITAMIN B12 Lab Routine Anemia, unspecified type Expected: 10/18/2023, Expires: 01/17/2024 [facility] Comment on above: Expected: 10/18/2023 , Expires: 01/17/2024 Start: 10-18-2023 End: 01-17-2024 Ferritin [Mass/volume] in Serum or Plasma FERRITIN Lab Routine Anemia, unspecified type Expected: 10/18/2023, Expires: 01/17/2024 [facility] Comment on above: Expected: 10/18/2023 , Expires: 01/17/2024 Start: 10-18-2023 End: 01-17-2024 Folate [Mass/volume] in Serum or Plasma FOLATE, SERUM Lab Routine Anemia, unspecified type Expected: 10/18/2023, Expires: 01/17/2024 [facility] Comment on above: Expected: 10/18/2023 , Expires: 01/17/2024 Start: 10-18-2023 End: 01-17-2024 HEP ACUTE PANEL/RNA HEP ACUTE PANEL/RNA Lab Routine Elevated LFTs Expected: 10/18/2023, Expires: 01/17/2024 [facility] Comment on above: Expected: 10/18/2023 , Expires: 01/17/2024 Start: 10-18-2023 End: 01-17-2024 Hepatic function 2000 panel - Serum or Plasma HEPATIC FUNCTION PNL Lab Routine Elevated LFTs Expected: 10/18/2023, Expires: 01/17/2024 [facility] Work Phone: Comment on above: Expected: 10/18/2023 , Expires: 01/17/2024 Start: 10-18-2023 End: 01-17-2024 Iron and Iron binding capacity panel - Serum or Plasma IRON AND TIBC Lab Routine Anemia, unspecified type Expected: 10/18/2023, Expires: 01/17/2024 [facility] Comment on above: Expected: 10/18/2023 , Expires: 01/17/2024 Start: 10-16-2023 End: 10-16-2023 Patient encounter procedure 10/16/2023 8:15 AM EDT Office Visit [facility] [address] [place] [address] Jackson Sumner MD [address] [facility] [address] [place] [address] Established [id number], back and knee pain, now spreading to feet [facility] Comment on above: Established patient- Follow-up, back and knee pain, now spreading to feet Start: 09-29-2023 End: 09-29-2023 Patient encounter procedure 09/29/2023 4:00 PM EDT Appointment Radiology [address] [place] [address] Multiple thyroid nodules [E04.2] Radiology Comment on above: Multiple thyroid nod ules [E04.2] Start: 09-17-2023 End: 09-17-2023 Patient encounter procedure 09/17/2023 1:00 PM EDT Office Visit [facility] [place] [address] [place], [place] [address] Juan Spann MD [address] [place] [address] Medicare Wellness [facility] Comment on above: Medicare Wellness Start: 09-17-2023 End: 09-17-2023 Follow-up encounter 09/17/2023 11:30 AM EDT [facility] [place] [address] [place], [place] [id number] Aj Graham APRN.PLATEMAKER [address] [place] [address] Follow up from Genicular [facility] [place] Comment on above: Follow up from Genic ular RFA Start: 08-25-2023 End: 08-25-2023 ambulatory 08/25/2023 2:00 PM EDT OT/PT/Speech Visit [facility] [address] [place] [address] London Frye, PT [address] [place], [place] [id number] Lumbar radiculopathy [M54.16] [facility] Comment on above: Lumbar radiculopathy [M54.16] Start: 08-11-2023 End: 08-11-2023 ambulatory 08/11/2023 2:00 PM EDT OT/PT/Speech Visit [facility] [address] [place] [address] London Frye, PT [address] [place] [address] Lumbar radiculopathy [M54.16] [facility] Comment on above: Lumbar radiculopathy [M54.16] Start: 08-06-2023 End: 08-06-2023 ambulatory 08/06/2023 2:30 PM EDT Procedure [facility] [place] [address] [place] [address] Jackson Sumner MD [address] [place] [address] AUTH GOOD ATHLETIC COORDINATOR Left Genicular Radiofrequncy Ablation with fluoroscopic guidance (81mg ASA) [facility] [place] Comment on above: AUTH GOOD ATHLETIC COORDINATOR Left Ge nicular Radiofrequncy Ablation with fluoroscopic guidance (81mg ASA) Start: 07-25-2023 End: 07-25-2023 ambulatory 07/25/2023 3:00 PM EDT OT/PT/Speech Visit [facility] [address] [place], [place] [id number] London Frye, PT [address] [facility] [place] [place] [address] Lumbar radiculopathy [M54.16] [facility] Comment on above: Lumbar radiculopathy [M54.16] Start: 07-23-2023 SHINGRIX VACCINE (3 of 3) SHINGRIX VACCINE (3 of 3) [facility] Comment on above: Postponed from 11/09 (Insurance Coverage) Start: 07-23-2023 Urine microalbumin profile [facility] Comment on above: Postponed from 09/16 (Insurance Coverage) Start: 07-23-2023 End: 07-23-2023 Follow-up encounter 07/23/2023 7:45 AM EDT [facility] [place] [address] [place] [address] Aj Graham APRN.PLATEMAKER [address] [place] [address] GNB follow up [facility] [place] Comment on above: GNB follow up Start: 07-17-2023 End: 07-17-2023 ambulatory [facility] [place] Comment on above: Right genicular nerv e block AUTH GOOD (TB) Right genicular nerve block Start: 07-16-2023 End: 07-16-2023 ambulatory 07/16/2023 11:15 AM EDT OT/PT/Speech Visit [facility] [address] [place], [place] [address] Saravanan Peñaloza PT Lumbar radiculopathy [M54.16] [place] [facility] Comment on above: Lumbar radiculopathy [M54.16] Start: 07-02-2023 End: 10-01-2023 Basic metabolic 2000 panel - Serum or Plasma BASIC METABOLIC PANEL Lab Routine Elevated blood uric acid level Expected: 07/02/2023, Expires: 10/01/2023 [facility] Work Phone: Comment on above: Expected: 07/02/2023 , Expires: 10/01/2023 Start: 07-02-2023 End: 10-01-2023 Thyrotropin [Units/volume] in Serum or Plasma THYROID STIMULATING HORMONE Lab Routine Multiple thyroid nodules Expected: 07/02/2023, Expires: 10/01/2023 [facility] Work Phone: Comment on above: Expected: 07/02/2023 , Expires: 10/01/2023 Start: 07-02-2023 End: 10-01-2023 Urate [Mass/volume] in Serum or Plasma URIC ACID Lab Routine Elevated blood uric acid level Expected: 07/02/2023, Expires: 10/01/2023 [facility] Work Phone: Comment on above: Expected: 07/02/2023 , Expires: 10/01/2023 Start: 04-07-2023 Covid-19 Vaccine (6 - Pfizer series) Covid-19 Vaccine (6 - Pfizer series) [facility] Start: 04-07-2023 Covid-19 Vaccine ( season) Covid-19 Vaccine () [facility] Start: 12-03-2022 ANNUAL PCP TEAM GEOSPATIAL APPLICATIONS DEVELOPER BUD DISEASE VISIT ANNUAL PCP TEAM CHRONIC DISEASE VISIT [facility] Start: 12-03-2022 BP CONTROLLED (<130/80) BP CONTROLLE D (<130/80) [facility] Start: 11-08-2022 Influenza vaccination INFLUENZA (#1) [facility] Start: 09-05-2022 ANNUAL PCP TEAM GEOSPATIAL APPLICATIONS DEVELOPER BUD DISEASE VISIT ANNUAL PCP TEAM CHRONIC DISEASE VISIT [facility] Start: 09-05-2022 BP CONTROLLED (<130/80) BP CONTROLLE D (<130/80) [facility] Start: 05-20-2022 End: 07-20-2022 Thyroglobulin Ab [Units/volume] in Serum or Plasma THYROGLOBULIN AB Lab Routine Abnormal thyroid blood test Multiple thyroid nodules Expected: 05/20/2022, Expires: 07/20/2022 [facility] Work Phone: Comment on above: Expected: 05/20/2022 , Expires: 07/20/2022 Start: 05-20-2022 End: 07-20-2022 THYROID PEROXIDASE ANTIBODY BLOOD THYROID PEROXIDASE ANTIBODY BLOOD Lab Routine Abnormal thyroid blood test Multiple thyroid nodules Expected: 05/20/2022, Expires: 07/20/2022 [facility] Work Phone: Comment on above: Expected: 05/20/2022 , Expires: 07/20/2022 Start: 05-20-2022 End: 07-20-2022 Thyrotropin [Units/volume] in Serum or Plasma TSH BLD Lab Routine Abnormal thyroid blood test Multiple thyroid nodules Expected: 05/20/2022, Expires: 07/20/2022 [facility] Work Phone: Comment on above: Expected: 05/20/2022 , Expires: 07/20/2022 Start: 05-20-2022 End: 07-20-2022 Thyroxine (T4) free [Mass/volume] in Serum or Plasma T4 FREE/FREE THYROX Lab Routine Abnormal thyroid blood test Multiple thyroid nodules Expected: 05/20/2022, Expires: 07/20/2022 [facility] Work Phone: Comment on above: Expected: 05/20/2022 , Expires: 07/20/2022 Start: 05-14-2022 BP CONTROLLED (<130/80) BP CONTROLLE D (<130/80) [facility] Start: 05-07-2022 COVID-19 VACCINE (6 - Pfizer series) COVID-19 VACCINE (6 - Pfizer series) [facility] Start: 04-23-2022 ANNUAL PCP TEAM GEOSPATIAL APPLICATIONS DEVELOPER BUD DISEASE VISIT ANNUAL PCP TEAM CHRONIC DISEASE VISIT [facility] Start: 04-19-2022 End: 06-19-2022 25-hydroxyvitamin D3 [Mass/volume] in Serum or Plasma [facility] Work Phone: Comment on above: Expected: 04/19/2022 , Expires: 06/19/2022 Start: 04-19-2022 End: 06-19-2022 Comprehensive metabolic 2000 panel - Serum or Plasma [facility] Work Phone: Comment on above: Expected: 04/19/2022 , Expires: 06/19/2022 Start: 04-19-2022 End: 06-19-2022 LIPID PANEL, NONFASTING [facility] Work Phone: Comment on above: Expected: 04/19/2022 , Expires: 06/19/2022 Start: 04-19-2022 End: 06-19-2022 Thyrotropin [Units/volume] in Serum or Plasma [facility] Work Phone: Comment on above: Expected: 04/19/2022 , Expires: 06/19/2022 Start: 04-19-2022 End: 06-19-2022 Urinalysis complete panel - Urine [facility] Work Phone: Comment on above: Expected: 04/19/2022 , Expires: 06/19/2022 Start: 03-10-2022 DEPRESSION ASSESSMENT DEPRESSION ASS ESSMENT [facility] Start: 02-27-2022 End: 02-27-2022 Patient encounter procedure Appointment [facility] Work Phone: Start: 12-03-2021 End: 02-02-2022 Basic metabolic 2000 panel - Serum or Plasma [facility] Work Phone: Comment on above: Expected: 12/03/2021 , Expires: 02/02/2022 Start: 11-08-2021 Influenza vaccination INFLUENZA (#1) [facility] Start: 10-03-2021 COVID-19 VACCINE (5 - Booster for Pfizer series) COVID-19 VACCINE (5 - Booster for Pfizer series) [facility] Start: 05-31-2021 End: 05-31-2021 Patient encounter procedure Appointment [facility] Work Phone: Start: 05-31-2021 End: 05-31-2021 Radex spine lumbosacral 2/3 views XR LUMBAR 2-3 VWS AP/LAT [facility] Work Phone: Start: 03-12-2021 COVID-19 VACCINE (4 - Booster for Pfizer series) COVID-19 VACCINE (4 - Booster for Pfizer series) [facility] Start: 03-10-2021 DEPRESSION ASSESSMENT DEPRESSION ASS ESSMENT [facility] Start: 11-09-2020 SHINGRIX VACCINE (2 of 2) SHINGRIX VACCINE (2 of 2) [facility] Start: 11-09-2020 SHINGRIX VACCINE (3 of 3) SHINGRIX VACCINE (3 of 3) [facility] Start: 09-16-2009 DTaP/Tdap/Td Vaccine s (2 - Tdap) DTaP/Tdap/Td Vaccines (2 - Tdap) [facility] Start: 09-16-2009 Urine microalbumin profile [facility] Start: 2000 RSV Vaccine (1 - 1-d ose 60+ series) RSV Vaccine (1 - 1-dose 60+ series) [facility] Start: 1958 Anxiety Screening Anxiety Screening [facility] Start: 1958 Depression Screening Depression Scre ening [facility] Start: 1940 Lipid panel Lipid Panel [facility] Start: 1940 Medicare Annual Well ness Visit Medicare Annual Wellness Visit (AWV) [facility] Arthrocentesis aspir&/inj major jt/bursa w/o us DRAIN/INJECT LARGE JOINT/BURSA Procedures Routine Primary osteoarthritis of both knees Ordered: 05/26/2023 [facility] Work Phone: Comment on above: Ordered: 05/26/2023 Bacteria identified in Urine by Culture URINE CULTURE Microbiology Routine Urinary frequency 07/15/2022 4:13 PM EDT [facility] Work Phone: Bacteria identified in Urine by Culture URINE CULTURE Microbiology Routine Dysuria Urine frequency 07/22/2022 2:55 PM EDT [facility] Work Phone: End: 10-16-2024 BD DXA TRABECULAR BONE SCORE (TBS) BD DXA TRABECULAR BONE SCORE (TBS) Radiology Routine Osteopenia, senile Primary ovarian failure 1 Occurrences starting 09/17/2023 until 10/16/2024 [facility] Comment on above: 1 Occurrences starti ng 09/17/2023 until 10/16/2024 End: 06-24-2024 Blood type and Indirect antibody screen panel - Blood Type And Screen Lab Timed Postlaminectomy syndrome of lumbar region As needed (Lab) until discontinued starting 06/24/2024 [facility] Service Area Work Phone: Comment on above: As needed (Lab) unti l discontinued starting 06/24/2024 Dstrj neurolytic age nt other peripheral nerve NRV DESTR RFA, CHEM OTHER Procedures Routine Primary osteoarthritis of both knees Ordered: 08/06/2023 [facility] Work Phone: Comment on above: Ordered: 08/06/2023 End: 10-16-2024 DXA Skeletal system.axial Views for bone density DXA-AXIAL SKELETON Radiology Routine Osteopenia, senile Primary ovarian failure 1 Occurrences starting 09/17/2023 until 10/16/2024 [facility] Comment on above: 1 Occurrences starti ng 09/17/2023 until 10/16/2024 DXA Skeletal system.axial Views for bone density DXA-AXIAL SKELETON Radiology Routine Osteopenia, senile Primary ovarian failure 10/31/2023 1:37 PM EDT [facility] Work Phone: Injection aa&/strd o ther peripheral nerve/branch INJECT ANESTH AGENT Procedures Routine Primary osteoarthritis of both knees Ordered: 07/17/2023 [facility] Work Phone: Comment on above: Ordered: 07/17/2023 End: 01-09-2025 MR Thoracic spine WO contrast MRI THORACIC SPINE WO IVCON Radiology Routine Pain in thoracic spine 1 Occurrences starting 12/11/2023 until 01/09/2025 [facility] Work Phone: Comment on above: 1 Occurrences starti ng 12/11/2023 until 01/09/2025 End: 10-05-2022 Mri brain brain stem w/o contrast material MRI BRAIN WO IVCON Radiology Routine Injury of head, initial encounter Vertigo 1 Occurrences starting 09/05/2021 until 10/05/2022 [facility] Work Phone: Comment on above: 1 Occurrences starti ng 09/05/2021 until 10/05/2022 Njx anes&/strd w/img tfrml edrl lmbr/sac 1 lvl INJ TRANSFORAMINAL EPID ANES/STER LS SINGL Procedures Routine Spinal stenosis, lumbar region, without neurogenic claudication Lumbar radiculopathy Ordered: 04/30/2023 [facility] Work Phone: Comment on above: Ordered: 04/30/2023 Njx anes&/strd w/img tfrml edrl lmbr/sac 1 lvl INJ TRANSFORAMINAL EPID ANES/STER LS SINGL Procedures Routine Lumbar radiculopathy Spinal stenosis, lumbar region, without neurogenic claudication Ordered: 11/21/2023 [facility] Work Phone: Comment on above: Ordered: 11/21/2023 Njx anes&/strd w/img tfrml edrl lmbr/sac 1 lvl INJ TRANSFORAMINAL EPID ANES/STER LS SINGL Procedures Routine Lumbar radiculopathy Spinal stenosis, lumbar region, without neurogenic claudication Ordered: 03/23/2024 [facility] Work Phone: Comment on above: Ordered: 03/23/2024 Njx anes&/strd w/img tfrml edrl lmbr/sac ea lv INJ TRANSFRAM EPID ANES/STER LS MULTI Procedures Routine Spinal stenosis, lumbar region, without neurogenic claudication Lumbar radiculopathy Ordered: 04/30/2023 [facility] Work Phone: Comment on above: Ordered: 04/30/2023 Njx anes&/strd w/img tfrml edrl lmbr/sac ea lv INJ TRANSFRAM EPID ANES/STER LS MULTI Procedures Routine Lumbar radiculopathy Spinal stenosis, lumbar region, without neurogenic claudication Ordered: 11/21/2023 [facility] Comment on above: Ordered: 11/21/2023 Njx dx/ther sbst intrlmnr lmbr/sac w/img gdn EPI LUMBAR OR SACRAL W/IMAGING Procedures Routine Lumbar radiculopathy Spinal stenosis, lumbar region, without neurogenic claudication Ordered: 01/30/2024 [facility] Work Phone: Comment on above: Ordered: 01/30/2024 Prq impltj nstim electrode array epidural SPINAL CORD STIM PERCT SCS ELCT Procedures Routine Lumbar radiculopathy Spinal stenosis, lumbar region, without neurogenic claudication Ordered: 04/27/2024 [facility] Work Phone: Comment on above: Ordered: 04/27/2024 End: 09-17-2025 US Carotid arteries - bilateral US CAROTID ARTERIES [facility] Vascular Lab Routine Bruit 1 Occurrences starting 09/17/2024 until 09/17/2025 [facility] Comment on above: 1 Occurrences starti ng 09/17/2024 until 09/17/2025 End: 06-17-2024 US Heart Transthoracic [facility] Service Area Work Phone: Comment on above: Once for 1 Occurrenc es starting 06/17/2024 until 06/17/2024 End: 08-21-2023 Us soft tissue head & neck real time imge docm US THYROID/PARATHYROID Radiology Routine Multiple thyroid nodules 1 Occurrences starting 07/22/2022 until 08/21/2023 [facility] Work Phone: Comment on above: 1 Occurrences starti ng 07/22/2022 until 08/21/2023 End: 10-16-2024 US Thyroid gland US THYROID/PARATHYROID Radiology Routine Multiple thyroid nodules 1 Occurrences starting 09/17/2023 until 10/16/2024 [facility] Comment on above: 1 Occurrences starti ng 09/17/2023 until 10/16/2024 US Thyroid gland US THYROID/PARA THYROID Radiology Routine Multiple thyroid nodules 09/29/2023 4:20 PM EDT [facility] Work Phone: End: 10-17-2025 US Thyroid gland US THYROID/PARATHYROID Radiology Routine Multiple thyroid nodules 1 Occurrences starting 09/17/2024 until 10/17/2025 [facility] Comment on above: 1 Occurrences starti ng 09/17/2024 until 10/17/2025 US Thyroid gland US THYROID/PARA THYROID Radiology Routine Multiple thyroid nodules 10/08/2024 2:24 PM EDT [facility] Work Phone: End: 05-27-2025 XR Lumbar spine AP and Lateral XR LUMBAR LIMITED 2V AP/LAT Radiology Routine Lumbar radiculopathy Spinal stenosis, lumbar region, without neurogenic claudication 1 Occurrences starting 04/27/2024 until 05/27/2025 [facility] Comment on above: 1 Occurrences starti ng 04/27/2024 until 05/27/2025 XR Lumbar spine AP a nd Lateral XR LUMBAR LIMITED 2V AP/LAT Radiology Routine Lumbar radiculopathy Spinal stenosis, lumbar region, without neurogenic claudication 05/03/2024 8:32 AM EST [facility] Work Phone: End: 05-27-2025 XR Thoracic spine AP and Lateral XR THORACIC LIMITED 2V AP/LAT Radiology Routine Lumbar radiculopathy Spinal stenosis, lumbar region, without neurogenic claudication 1 Occurrences starting 04/27/2024 until 05/27/2025 [facility] Comment on above: 1 Occurrences starti ng 04/27/2024 until 05/27/2025 XR Thoracic spine AP and Lateral XR THORACIC LIMITED 2V AP/LAT Radiology Routine Lumbar radiculopathy Spinal stenosis, lumbar region, without neurogenic claudication 05/03/2024 8:33 AM EST [facility] Immunizations Immunization Date Immunization Notes Care Provider [facility] 12-18-2024 influenza, high dose seasonal, preservative-free Dr. Juan Spann MD Work Phone: [facility] 09-17-2024 COVID-19 vaccine, ag e 12+ yr (PFIZER-BIONTKS12 [facility] Juan Spann MD Work Phone: [facility] 12-17-2023 influenza, high dose seasonal, preservative-free Destini Lay PA-C Work Phone: [facility] 12-17-2023 influenza virus vaccine, unspecified formulation Juan Spann MD Work Phone: [facility] 11-28-2023 COVID-19 vaccine, ag e 12+ yr ([employer]-BION[employer]) Destini Lay PA-C Work Phone: [facility] 09-20-2023 respiratory syncytia l virus (RSV) vaccine, adjuvanted (AREXVY) Destini Lay PA-C Work Phone: [facility] 09-17-2023 pneumococcal conjuga te (PCV20) vaccine, 20 valent (PREVNAR 20) Juan Spann MD Work Phone: [facility] 09-17-2023 pneumococcal Conjuga te, unspecified formulation Juan Spann MD Work Phone: [facility] 12-06-2022 COVID-19 vaccine, ag e 12+ yr, season (PFIZER-BIONTECH) Immunization [place] Work Phone: [facility] Work Phone: 12-06-2022 influenza (HD-IIV4) vaccine, age 65+ yr, high dose, quadrivalent, PF (FLUZONE HIGH-DOSE) Immunization [place] Work Phone: [facility] Work Phone: 12-06-2022 influenza virus vaccine, unspecified formulation Juan Spann MD Work Phone: [facility] 01-04-2022 COVID-19 booster vaccine, age 12+ yr, bivalent (PFIZER-BIONTECH) Juan Spann MD Work Phone: [facility] Work Phone: 01-04-2022 influenza, high-dose , quadrivalent vaccine (FLUZONE HIGH DOSE QUADRIVALENT) Juan Spann MD Work Phone: [facility] Work Phone: 08-08-2021 COVID-19 original vaccine, age 12+ yr, monovalent (PFIZER-BIONTECH - PURPLE TOP) Destini Lay PA-C Work Phone: [facility] 08-08-2021 COVID-19 vaccine, ag e 12+ yr (PFIZER-BIONTECH - MCKENNA TOP) Destini Lay PA-C Work Phone: [facility] 12-16-2020 influenza, high-dose , quadrivalent vaccine (FLUZONE HIGH DOSE QUADRIVALENT) Juan Spann MD Work Phone: [facility] 12-15-2020 zoster vaccine recombinant Destini Lay PA-C Work Phone: [facility] 11-10-2020 COVID-19 vaccine, ag e 12+ yr (PFIZER-BIONTECH - PURPLE TOP) Juan Sapnn MD Work Phone: [facility] 09-14-2020 zoster vaccine recombinant Juan Spann MD Work Phone: [facility] 05-11-2020 COVID-19 vaccine, ag e 12+ yr (PFIZER-BIONTECH - PURPLE TOP) Juan Spann MD Work Phone: [facility] Work Phone: 04-20-2020 COVID-19 vaccine, ag e 12+ yr (PFIZER-BIONTECH - PURPLE TOP) Juan Spann MD Work Phone: [facility] 12-11-2019 influenza, high-dose , quadrivalent vaccine (FLUZONE HIGH DOSE QUADRIVALENT) Juan Spann MD Work Phone: [facility] 01-02-2019 influenza, high dose seasonal, preservative-free Juan Spann MD Work Phone: [facility] 12-06-2017 influenza, high dose seasonal, preservative-free Juan Spann MD Work Phone: [facility] 03-12-2017 pneumococcal polysaccharide vaccine, 23 valent Juan Spann MD Work Phone: [facility] 01-11-2017 influenza, high dose seasonal, preservative-free Juan Spann MD Work Phone: [facility] Work Phone: 02-21-2016 pneumococcal conjuga te vaccine, 13 valent Juan Spann MD Work Phone: [facility] Work Phone: 12-22-2015 influenza, high dose seasonal, preservative-free Juan Spann MD Work Phone: [facility] Work Phone: 01-21-2015 influenza, high dose seasonal, preservative-free Juan Spann MD Work Phone: [facility] Work Phone: 01-05-2014 influenza, injectabl e, quadrivalent, preservative free Dr. Juan Spann MD Work Phone: [facility] 01-05-2014 influenza, seasonal, injectable Juan Spann MD Work Phone: [facility] 12-12-2012 influenza virus vaccine, unspecified formulation Juan Spann MD Work Phone: [facility] Work Phone: 01-18-2012 influenza virus vaccine, unspecified formulation Juan Spann MD Work Phone: [facility] Work Phone: 12-29-2010 influenza virus vaccine, unspecified formulation Juan Spann MD Work Phone: [facility] Work Phone: 12-19-2009 influenza virus vaccine, unspecified formulation Juan Spann MD Work Phone: [facility] Work Phone: 12-12-2008 influenza virus vaccine, unspecified formulation Juan Spann MD Work Phone: [facility] Work Phone: 02-16-2008 zoster vaccine, live Juan Spann MD Work Phone: [facility] 01-13-2008 influenza virus vaccine, unspecified formulation Juan Spann MD Work Phone: [facility] Work Phone: 01-05-2007 influenza virus vaccine, unspecified formulation Juan Spann MD Work Phone: [facility] [facility] Work Phone: 01-05-2007 pneumococcal polysaccharide vaccine, 23 valent Juan Spann MD Work Phone: [facility] Work Phone: 01-13-2006 influenza virus vaccine, unspecified formulation Juan Spann MD Work Phone: [facility] Work Phone: 01-17-2005 influenza virus vaccine, unspecified formulation Juan Spann MD Work Phone: [facility] Work Phone: 09-17-1999 diphtheria and tetan us toxoids, adsorbed for pediatric use Juan Spann MD Work Phone: [facility] Work Phone: Payers Date Payer Category Payer Self-pay 2009 Miscellaneous or Other [facility] [id number] 2009 Private Health Insurance [facility] [id number] 2009 Unknown [employer] SUPPLEMENT [id number] 2009-Present [phone] [address] [place] [address] Indemnity [id number] 2009 Unknown [employer] [place] [employer] [place] MEDIC[employer] SUPPLEMENT [id number] 2009-Present [phone] [address] [place] [address] Indemnity [id number] 2009 Medicare [id number] 2009 Unknown [id number] 2005 Medicare [id number] 2005 Medicare [id number] 2005 Medicare [id number] 1940 Unknown [id number]. 2.1245 1940 Unknown [id number]. 2.124 1940 Unknown [id number] [id number]. 2.124 1940 Unknown [id number] [id number]. 2.124 1940 Unknown [id number] [id number]. 2.1245 Unknown [id number] [id number]. 2.462 Unknown [id number] [id number]. 2.462 Unknown [id number] [id number]. 2.462 Unknown [id number] [id number]. 2.462 Unknown [id number] [id number]. 2.462 Unknown [id number]. 2.462 Social History Date Type Detail Facility Start: 05-31-2021 End: 05-31-2021 Assertion Unknown if ever smoked [facility] Work Phone: Start: 07-29-2011 End: 12-21-2024 Tobacco smoking status NHIS Never smoked tobacco [facility] Start: 05-14-2021 End: 10-11-2024 Alcohol intake Current drinker of alcohol (finding) [facility] Start: 05-14-2021 End: 07-22-2022 Alcohol intake [facility] Start: 06-06-2020 End: 04-17-2022 History SDOH Alcohol Frequency 4 [facility] Start: 06-06-2020 End: 04-17-2022 History SDOH Alcohol Std Drinks 2 [facility] Start: 06-06-2020 End: 04-17-2022 History SDOH Alcohol Binge 3 [facility] Start: 12-23-2011 History SDOH Alcohol Comment 3-4/week [facility] Start: 06-06-2020 End: 04-17-2022 History SDOH Social Connections Phone 5 [facility] Start: 06-06-2020 End: 04-17-2022 History SDOH Social Connections Membership 1 [facility] Start: 06-06-2020 Education 12 [facility] Start: 1940 Sex Assigned At Not on file [facility] Start: 08-26-2021 End: 07-07-2024 Exposure to SARS-CoV-2 (event) Not sure [facility] Start: 07-29-2011 End: 12-03-2021 Tobacco use and exposure Smokeless tobacco non-user [facility] Start: 04-17-2022 End: 07-22-2022 Social connection and isolation panel [facility] Do you belong to any clubs or organizations such as scientology groups, unions, fraternal or athletic groups, or school groups? No [facility] Are you now , , , , never or living with a partner? [facility] How often to you hav e a drink containing alcohol? 4 or more times a week [facility] How many standard dr inks containing alcohol do you have on a typical day? 3 or 4 [facility] How often do you hav e 6 or more drinks on 1 occasion? Weekly [facility] How hard is it for y ou to pay for the very basics like food, housing, medical care, and heating Not very hard [facility] Start: 02-09-2012 Adult Depression Screening Assessment 0 [facility] Work Phone: Do you feel stress - tense, restless, nervous, or anxious, or unable to sleep at night because your mind is troubled all the time - these days [OSQ] To some extent [facility] (I/We) worried wheth er (my/our) food would run out before (I/we) got money to buy more. Never true [facility] Do you feel stress - tense, restless, nervous, or anxious, or unable to sleep at night because your mind is troubled all the time - these days [OSQ] Rather much [facility] How often do you hav e 6 or more drinks on 1 occasion? Monthly [facility] Start: 12-05-2019 Alcohol Alcohol [facility] Start: 1940 Sex Assigned At Female [facility] Medical Equipment Procedure Code Equipment Code Equipment Original Text Equipment Identifier Dates Graft Bn Infs Rhbmp-2 2.8ml Sm - [id number] Start: 11-03-2012 Comment on above: Description: INFUSE BONE GRAFT Bio Matrx Mstrgrft 10cc Kit - [id number] Start: 11-03-2012 Comment on above: Description: MASTERG RAFT MATRIX Kain Spnl 40mm 5.5mm Cd Hzn Leg - [id number] Start: 11-03-2012 Comment on above: Description: MEDTRON IC 4.0 CM KAIN Screw Bn 6.5mm 45mm Cd Hzn Leg - [id number] Start: 11-03-2012 Comment on above: Description: MEDTRON IC MULTI AXIAL SCREW, TITANIUM Screw St Ti Pedc l Brkof Cd Hzn - [id number] Start: 11-03-2012 Comment on above: Description: MEDTRON IC SET SCREWS Screw Quickfix 2.5mm 1.5mm Micro Full Thread Hexagon Titanium 16mm Bone - [id number] Start: 05-08-2016 Kit, Lead Spine Stim Sure-Scan Vectris Compact - [id number] Start: 06-24-2024 Comment on above: Description: BUNDLED greene per Bill Only LL Kit, Lead Spine Stim Sure-Scan Vectris Compact - [id number] Start: 06-24-2024 Comment on above: Description: Bundled per Bill Only LL Medtronic Inceptiv Generator [id number] Start: 06-24-2024 Goals Date Patient Goal Desired Activity /State Personal health goal Functional Status Date Assessment Result Facility 12-22-2024 Functional status [facility] Work Phone: 06-24-2024 [place] - suicide severity rating scale screener - recent [C-SSRS] [facility] Work Phone: 10-13-2014 Are you deaf, or do you have serious difficulty hearing No 10/13/2014 1:22 PM EDT Sherie Johns LPN No [facility] 10-13-2014 Are you blind, or do you have serious difficulty seeing, even when wearing glasses No 10/13/2014 1:22 PM EDT Sherie Johns LPN No [facility] 10-13-2014 Do you have serious difficulty walking or climbing stairs No 10/13/2014 1:22 PM EDT Sherie Johns LPN No [facility] 10-13-2014 Do you have difficul ty dressing or bathing No 10/13/2014 1:22 PM EDT Sherie Johns LPN No [facility] 10-13-2014 Because of a physica l, mental, or emotional condition, do you have difficulty doing errands alone such as visiting a physician's office or shopping No 10/13/2014 1:22 PM EDT Nat Sherie [place] No [facility] Mental Status Date Assessment Result Facility 12-22-2024 Cognitive function Voice/Name [facility] Work Phone: 10-13-2014 Because of a physica l, mental, or emotional condition, do you have serious difficulty concentrating, remembering, or making decisions No 10/13/2014 1:22 PM EDT Nat Sherie [place] No [facility] Clinical Notes 04-16-2021 to 01-18-2025 Note Date & Type Note Facility 01-18-2025 Note HNO ID: [id number] Author: TOVA DIAZ MA Service: ? Author Type: Production Machine Tender Type: Progress Notes Filed: 01/18/2025 14:30 Note Text: Scan on 01/18/2025 12:34 PM by Kirk Koch PA-C: Consultation - Cardiology [facility] 01-17-2025 Note HNO ID: [id number] Author: TOVA DIAZ MA Service: ? Author Type: Production Machine Tender Type: Progress Notes Filed: 01/17/2025 14:27 Note Text: Scan on 01/17/2025 2:03 PM by ProviderKirk PASolomonC: Inj/asp jose jt shoulder/hip/knee [facility] 01-03-2025 Note HNO ID: [id number] Author: LAUREN CHAMPAGNE PT Service: ? Author Type: Physical Therapist Type: Progress Notes Filed: 01/03/2025 13:55 Note Text: Pt. Checked in but has not seen ortho visit scheduled yet. Opened in error. Lauren Champagne, PT, DPT [facility] 12-29-2024 Note HNO ID: [id number] Author: IKE DOTY Tech Service: ? Author Type: Senior Biostatistician Type: Progress Notes Filed: 12/29/2024 12:43 Note [...] PATIENT PRESENTS WITH AN IMPLANTABLE OR ATTACHED ACCOUNTING CLERK: No RADIOLOGY DEPARTMENT: General X-ray: Exam(s) Completed: Upper Extremity X-Ray(s): Shoulder, AP / TRUE AP left PERIPHERAL IV DATA: Not applicable SIGNED BY: Sejal Guillaume December 29, 2024 12:42 PM [facility] 12-29-2024 Note HNO ID: [id number] Author: DESTINI LAY PA-C Service: ? Author Type: Physician Hydraulic Technician Type: Progress Notes Filed: 12/30/2024 07:43 [...] significant findings - Scheduled to see a accounting instructor next week for a loop recorder. - [...] SPINAL CORD STIM/IMPLA (more content not included)... [facility] 12-28-2024 Note HNO ID: [id number] Author: TOVA DIAZ MA Service: ? Author Type: Production Machine Tender Type: Progress Notes Filed: 12/28/2024 13:40 Note Text: Scan on 12/28/2024 1:06 PM by Provider, External, PA-C: [facility]-Syncope [facility] 12-22-2024 Discharge summary [facility] 12-22-2024 Discharge summary [facility] 12-22-2024 Note [facility] Medical Records Department [address] [place] [address] Discharge Summary 12/22/24 1503 MR#: [id number] Acct: [id number] Name: SPENSER PUTNAM Rep #: [id number] : 1940 84 From: Chelsea Carbone DO PCP: Dr. Juan Spann MD Status:DIS JANNETTE Location: [place] [address] Providers Date of Admission: 12/21/24 Date of [...] was seen in the emergency room at [facility] after suffering a syncopal episode at [...] her to see the cardiology group at [facility] for evaluation for that loop recorder. [...] % (Auto) 57.0, Lymph % (Auto) 34.6, [place] % (Auto) 7.3, Eos % (Auto) 0.4, [...] Clarity Clear, Urine pH 6.5, Ur Specific [place] 1.015, U rine Protein 30 H, Urine [...] 14.6, Plt Co (more content not included)... [facility] 12-22-2024 Hospital Discharge instructions Additional Instructions Date of Discharge: 12/22/24 [facility] Work Phone: 12-22-2024 History and physical note Note Date/Time December 22, 2024 6:47am [facility] Medical Records Department [address] [place] [address] H&P Exam - Hospitalist 12/21/242117 MR#: [id number] Acct: [id number] Name: SPENSER PUTNAM Rep #:[id number] : 1940 84 From: Rachael Crook MD PCP: Dr. Juan Spann MD Status:ADM JANNETTE Location: [place] [address] HPI - General General Date of Admission: [...] be managed for syncope of unclear etiology. [facility] Medical History Elevated d-dimer Chronic anemia HLD [...] chloride 20 mEq 20 meq PO BID 09/05/24 Unkno wn History tablet,extended release spironolactone 50 [...] % (Auto) 57.0, Lymph % (Auto) 34.6, [place] % (Auto) 7.3, Eos % (Auto) 0.4, [...] Clarity Clear, Urine pH 6.5, Ur Specific [place] 1.015, Urine Protein 30 H, Urine Glucose (UA) Normal, Urine Ketones Negative, Urine Occult Blood 10 H, Urine Nitrite Negative, Urine Bilirubin Negative, Urine Urobilinogen Normal, Ur Leukocyte Esterase Negative Rhythm Strip Rhythm Strip: Sinus bradycardia Rate: 57 Ectopy: None Imaging Radiology Impression Abdomen/Pelvis CT 12/21/24 20:05 IMPRESSION: No definite explanation for the patient's lower abdominal pain. There is a dwxajoej-iu-wwehn amount of stool in sigmoid colonic loops. No definite bowel obstruction however. Other details as above. Reading [facility] X-Ray 12/21/24 20:10 IMPRESSION: No acute abnormality. Reading Location: [facility] Assessment & Plan Assessment/Plan (1) Syncope: PLAN: [...] elects to be full code. * Total zzpt-ps-wcsr time 17 minutes. Charges/Coding Visit Charges Inpatient E&M: 92926 Init Hosp L2 Procedures Hospitalists Procedures: 54384 Advncd Care Plan 30 Min 12/22/24 0647 <Electronically signed by Rachael Crook MD> Cosigner Signature (if applicable): CC: Dr. Juan Spann MD; Dr. Rachael Crook MD~ Signed [facility] Work Phone: 1(272) 546-118710-15-2025 NoteHNO ID: [id number] Author: YUE KIRKLAND MA Service: ? Author Type: Production Machine Tender Type: Progress Notes Filed: 12/22/2024 08:18 Note Text: Scan on 12/21/2024 9:41 PM by Provider, External, PA-C: [facility] ED Scan on 12/22/2024 6:54 AM by Provider, Kirk, PASolomonC: [facility] Hosp, Hospitalist [facility]10-15-2025 History and physical note [facility] Medical Records Department [address] [place] [address] H&P Exam - Hospitalist 12/21/242117 MR#: [id number] Acct: [id number] Name: SPENSER PUTNAM Rep #:[id number] : 1940 84 From: Rachael Crook MD PCP: Dr. Juan Spann MD Status:ADM JANNETTE Location: [place] [address] HPI - General General Date of Admission: [...] to be managed for syncope ofunclear etiology. [facility] Medical History Elevated d-dimer Chronic anemia HLD [...] Neut% (Auto) 57.0, Lymph % (Auto) 34.6, [place] % (Auto) 7.3, Eos % (Auto) 0.4, [...] Clarity Clear, Urine pH 6.5, Ur Specific [place] 1.015, Urine Protein 30 H, Urine Glucose (UA) Normal, Urine Ketones Negative, Urine Occult Blood 10 H, UrineNitrite Negative, Urine Bilirubin Negative, Urine Urobilinogen Normal, Ur Leukocyte Esterase Negative Rhythm Strip Rhythm Strip: Sinus bradycardia Rate: 57 Ectopy: None Imaging Radiology Impression Abdomen/Pelvis CT 12/21/24 20:05 IMPRESSION: No definite explanation for the patient's lower abdominal pain. There is a ylvgtijm-np-rajsg amount of stool in sigmoid colonic loops. No definite bowel obstruction however. Other details as above. Reading Location[facility] Chest X-Ray 12/21/24 20:10 IMPRESSION: No acute abnormality. Reading Location: [facility] Assessment & Plan Assessment/Plan (1) Syncope: [...] elects to be full code. * Total hcmq-eh-eedj time 17 minutes. Charges/Coding Visit Charges Inpatient E&M: 17890 Init Hosp L2 Procedures Hospitalists Procedures: 50140 Advncd Care Plan 30 Min 12/22/24 0647 Cosigner Signature (if applicable): CC: Dr. Juan Spann MD; Dr. Rachael Crook MD~ Signed [facility]10-14-2025 Evaluation note* Diagnosis Onset Date Resolution Status Admit Date Chronic anemia inactive December 212024 9:33pm History of spinal stenosis inactive December 21, 2024 9:33pm Syncope inactive December 21, 2024 9:33pm [facility] Work Phone: 1(102) 513-428110-14-2025 Discharge summary Author Tigre Downing [facility] Note Date/Time December 21, 2024 9 :29pm [facility] Medical Records Department [address] [place] [address] Emergency Department Summary 12/21/24 MR#: [id number] Acct: [id number] Name: SPENSER PUTNAM Rep #:[id number] : 1940 84 From: Tigre Downing MD PCP: Dr. Juan Spann MD [...] No obstruction. Moving all 4 extremities. Normal muffle operator strength. Strong radial pulse. Dorsi plantarflexion intact. [...] has lower abdominal pain. Differential could includedysrhythmia, [place], sick sinus syndrome, intra-abdominal pathology versus other. [...] % (Auto) 57.0 Lymph % (Auto) 34.6 [place] % (Auto) 7.3 Eos % (Auto) 0.4 [...] Clarity Clear Urine pH 6.5 Ur Specific [place] 1.015 Urine Protein 30 H Urine Glucose [...] patient's lower abdominal pain. There is a drmufjhp-lr-hrrap amount of stool in sigmoid colonic loops. No definite bowel obstruction however. Other details as above. Reading Location: [facility] Chest X-Ray 12/21/24 20:10 IMPRESSION: No acute abnormality. Reading Location: [facility] Chest x-ray, 2 views, AP lateral, [...] Rate of 57. No acute signs of KS or ischemia. Discharge Plan Dx/Rx/DC Orders Clinical Impression: Syncope, Chronic anemia, History of spinal stenosis Disposition Disposition: Acute Care Hospital [facility] What to do if you have Problems For any increased pain, shortness of breath, bleeding, nausea or vomiting, chestpain, or any unexpected problems, contact your Primary Care Provider. Call [facility] ([phone]) or report to the closest Emergency Room. Call 911 if necessary. 10/14/25 2129 <Electronically signed by Tigre Downing MD> Cosigner Signature (if applicable): CC: Dr. Juan Spann MD ~ Signed [facility] Work Phone: 1(185) 973-628310-14-2025 Discharge summary [facility] Medical Records Department [address] [place] [address] Emergency Department Summary 12/21/24 MR#: [id number] Acct: [id number] Name: SPENSER PUTNAM Rep #:[id number] : 1940 84 From: Tigre Downing MD PCP: Dr. Juan Spann MD [...] tablet 81 mg PO DAILY@0800 hear t [facility] 02/26/13 12/05/19 History calcium 600 mg (as [...] No obstruction. Moving all 4 extremities. Normal muffle operator strength. Strong radial pulse. Dorsi plantarflexion intact. [...] has lower abdominal pain. Differential could includedysrhythmia, [place], sick sinus syndrome, intra-abdominal pathology versus other. [...] % (Auto) 57.0 Lymph % (Auto) 34.6 [place] % (Auto) 7.3 Eos % (Auto) 0.4 [...] Clarity Clear Urine pH 6.5 Ur Specific [place] 1.015 Urine Protein 30 H Urine Glucose [...] patient's lower abdominal pain. There is a ncltwmcc-zy-uipng amount of stool in sigmoid colonic loops. No definite bowel obstruction however. Other details as above. Reading Location: [facility] Chest X-Ray 12/21/24 20:10 IMPRESSION: No acute abnormality. Reading Location: [facility] Chest x-ray, 2 views, AP lateral, [...] Rate of 57. No acute signs of KS or ischemia. Discharge Plan Dx/Rx/DC Orders Clinical Impression: Syncope, Chronic anemia, History of spinal stenosis Disposition Disposition: Acute Care Hospital [facility] What to do if you have Problems For any increased pain, shortness of breath, bleeding, nausea or vomiting, chestpain, or any unexpected problems, contact your Primary Care Provider. Call [facility] ([phone]) or report tothe closest Emergency Room. Call 911 if necessary. 12/21/242128 Cosigner Signature (if applicable): CC: Dr. Juan Spann MD ~ Signed [facility]10-14-2025 Radiology Diagnostic study note [facility] Imaging Services [address] [place], [place] [id number] Abdomen/Pelvis W IV Cont ONLY MR#: [id number] Acct: [id number] Name: SPENSER PUTNAM Rep #: [id number] : 1940 F 84 From: Nigel Clinton MD PCP: Dr. Juan Spann MD Status: REG ER Study:Abdomen/Pelvis W IV Cont ONLY Date of E xam: 12/21/24 Exam# [id number] Ordering Dr: Araceli Downing MD PROCEDURE: ABDOMEN/PELVIS [...] patient's lower abdominal pain. There is a vfkkcizk-wx-hmctg amount of stool in sigmoid colonic loops. No definite bowel obstruction however. Other details as above. Reading Location: [facility] CC: Dr. Tigre Downing MD; Dr. Juan Spann MD ~ Pile Driver: Signed [facility]10-14-2025 Radiology Diagnostic study note [facility] Imaging Services [address] [place] [address] Chest PA and Lateral MR#: [id number] Acct: [id number] Name: SPENSER PUTNAM Rep #: [id number] : 1940 F 84 From: Nigel Clinton MD PCP: Dr. Juan Spann MD Status: REG ER Study:Chest PA and Lateral Date of Exam: 12/21/24 Exam# [id number] Ordering Dr: Araceli Downing MD PROCEDURE: CHEST [...] Lateral IMPRESSION: No acute abnormality. Reading Location: [facility] CC: Dr. Tigre Downing MD; Dr. Juan Spann MD ~ Pile Driver: Signed [facility]09-29-2025 NoteHNO ID: [id number] Author: LAWRENCE LOPEZ RT(Theresa) Service: ? Author Type: Senior Biostatistician Type: Progress Notes Filed: 12/06/2024 14:44 Note [...] PATIENT PRESENTS WITH AN IMPLANTABLE OR ATTACHED ACCOUNTING CLERK: No RADIOLOGY DEPARTMENT: General X-ray: Exam(s) Completed: Pelvis X-Ray: Pelvis with Hip Right PERIPHERAL IV DATA: Not applicable SIGNED BY: RT Joanna(R) December 06, 2024 2:22 [facility]09-29-2025 NoteHNO ID: [id number] Author: JUAN SPANN MD Service: ? Author [...] Has question about Requip, states the new nick setter is making her ill. Spenser is an [...] hip, similar to a previous x-ray in 2016. She also has a spinal stimulator, which [...] SPEC WHEN PFRMD (more content not included)... [facility]09-10-2025 Telephone encounter Note* Telephone Encounter - [...] Clement RN November 17, 2024 11:02 AM [facility]09-10-2025 Miscellaneous Notes* Telephone Encounter - Rosalba [...] 17, 2024 11:02 AM [facility] History of Present illness Narrative* Karen [...] PATIENT PRESENTS WITH AN IMPLANTABLE OR ATTACHED ACCOUNTING CLERK: No RADIOLOGY DEPARTMENT: Ultrasound PERIPHERAL IV DATA: Not applicable SIGNED BY: Karen Zapata RDMS October 08, 2024 2:25 PM documented in this encounterB[facility]-2025 NoteHNO ID: [id number] Author: KAREN ZAPATA RDMS Service: ? Author Type: Senior Biostatistician Type: Progress Notes Filed: 10/08/2024 14:25 Note [...] PATIENT PRESENTS WITH AN IMPLANTABLE OR ATTACHED ACCOUNTING CLERK: No RADIOLOGY DEPARTMENT: Ultrasound PERIPHERAL IV DATA: Not applicable SIGNED BY: Karen Zapata RDMS October 08, 2024 2:25 [facility]07-25-2025 Telephone encounter Note* Telephone Encounter - Jonas Milan LPN - 10/01/2024 1:54 PM EDT Pt notified of same. Jonas Milan LPN [facility]07-25-2025 Miscellaneous Notes* Telephone Encounter - Jonas Milan LPN - 10/01/2024 1:54 PM EDT Pt notified of same. Jonas Milan LPN * Telephone Encounter - Destini Lay PA-C - 10/01/2024 11:23 AM EDT Let patient know that her labs were all okay/stable. Thanks. Destini Lay PA-C documented in this encounterB[facility] Telephone encounter Note * Telephone Encounter - Destini Lay PA-C - 10/01/2024 11:23 AM EDT Let patient know that her labs were all okay/stable. Thanks. Destini Lay PA-C [facility]07-11-2025 Instructions* Patient Instructions* Juan Spann MD [...] the stimulator, please contact the team at [facility] where it was placed. We discussed your [...] for coming in today. documented in this encounterBrecksville [facility]07-[facility]-2025 NoteHNO ID: [id number] Author: JUAN SPANN MD Service: ? Author Type: Physician Type: Progress Notes Filed: 09/17/2024 12:52 Note Text: pSenser Putnam is a 83 year old female [...] General (Family Medicine) Sujatha Saldana APRN.CNP as Braid Maker (Family Medicine) Destini Lay PA-C as Braid Maker (Family Medicine) Medical/Family history review Reviewed and [...] Non morbid obesity 0 (more content not included)...[facility] 09-17-2024 History of Present illness Narrative* [...] PCP - General (Family Medicine) Sujatha Saldana APRN.JOVANY as Braid Maker (Family Medicine) Destini Lay PA-C as Braid Maker (Family Medicine) Medical/Family history review Reviewed and [...] Coronary Artery Disease Maternal Grandmother Hx of KS Diabetes Daughter Type I Patient Allergies ALLERGIES [...] Plan 1. Medicare annual wellness visit, subsequent (Z00.) Comprehensive evaluation performed. - Scheduled follow-up in [...] which included preparing to see the patient, haek-mw-qrub patient care, completing clinical documentation, performing a medically appropriate examination, counseling and educating the patient/family/caregiver and ordering medications, tests, or procedures. Recording using RecordSetter software for draft documentation of the visit was discussed with the patient/authorized sales support representative; all questions welcomed and answered. Patient/authorized sales support representative agreed to proceed documented in this encounterBrecksville [facility]04-30-[facility] History of Present illness Narrative* Jamey Collier MD - 07/07/2024 1:00 PM EDT [facility] Neurosurgery Diagnosis Diagnoses and all orders for [...] improvement in her baseline pain. The [employer] sales support representative was present today to provide her [...] hours PRN aspirin 81 mg, oral, Daily [id number] (Caltrate 600-D Plus Minerals) 600 mg calcium- 800 unit-50 mg [id number] mg, Daily celecoxib (CELEBREX) 200 mg, oral, [...] Sulfa (Sulfonamide Antibiotics) Other Vicodin [Hydrocodone-Acetaminophen] Other lora documented in this encounterCleveland Clinic Work Phone: 1(203) 927-157304-28-2025 Telephone encounter Note* Telephone Encounter - Kelle [...] Joyce MA July 05, 2024 1:11 PM [facility]04-28-2025 Miscellaneous Notes* Telephone Encounter - Kelle [...] 05, 2024 1:11 PM documented in this encounterBrecksville [facility]04-21-2025 Telephone encounter Note * Telephone Encounter [...] once daily. Authorizing Provider: JUAN SPANN MD [facility]04-21-2025 Miscellaneous Notes* Telephone Encounter - Juan [...] 28, 2024 4:25 PM documented in this encounterBrecksville [facility]04-21-2025 Telephone encounter Note * Telephone Encounter [...] Chery LPN June 28, 2024 4:25 PM [facility]04-17-2025 Hospital course Narrative* Geovani Rivera MD [...] calcium- 800 unit-50 mg tablet; Generic drug: [id number] cyanocobalamin 1,000 mcg tablet; Commonly known as: [...] Center 07/07/2024 1:00 PM Jamey Collier MD [id number] Academic Geovani Rivera MD Cosigned by Jamey Collier MD at 06/24/2024 8:59 AM EDT documented in this [facility] Work Phone: 1(736) 369-725204-17-2025 Surgery Surgical operation note* Op Note - Jamey Collier MD - 06/24/2024 8:02 AM EDT Percutaneous Thoracic Spinal Cord Stimulator Electrodes and Generator Placement ([employer]) Operative Note Date: 06/24/2024 OR Location: [facility] OR Name: Spenser Putnam, : 1940, Age: 83 y.o., , Sex: female Diagnosis Pre-op Diagnosis * Postlaminectomy syndrome of lumbar region [M96.1] Post-op Diagnosis * Postlaminectomy syndrome of lumbar region [M96.1] Procedures Percutaneous insertion of dual thoracic epidural spinal cord stimulator electrodes Implantation of right flank IPG Surgeons * Jamey Collier - Primary Resident/Fellow/Other Hydraulic Technician: Surgeons and Role: * No surgeons found with a matching role * Staff: Scrub Person: Kayy Cordwood Cutter: Leesa Cordwood Cutter: Rashad Scrub Person: Deidre Anesthesia Staff: Anesthesiologist: [...] LEAD SPINE STIM SURE-SCAN VECTRIS COMPACT - [id number] Implanted Spinal Hardware KIT, LEAD SPINE STIM SURE-SCAN VECTRIS COMPACT - [id number] Implanted [employer] Inceptiv Generator Implanted [id number] Findings: Leads placed in mid-T7 and top [...] the entire procedure. Jamey Collier [facility] Work Phone: 1(569) 760-226304-17-2025 Miscellaneous Notes* Op Note - Jamey Collier MD - 06/24/2024 8:02 AM EDT Percutaneous Thoracic Spinal Cord Stimulator Electrodes and Generator Placement ([employer]) Operative Note Date: 06/24/2024 OR Location: [facility] OR Name: Spenser Putnam, : 1940, Age: 83 y.o., , Sex: female Diagnosis Pre-op Diagnosis * Postlaminectomy syndrome of lumbar region [M96.1] Post-op Diagnosis * Postlaminectomy syndrome of lumbar region [M96.1] Procedures Percutaneous insertion of dual thoracic epidural spinal cord stimulator electrodes Implantation of right flank IPG Surgeons * Jamey Collier - Primary Resident/Fellow/Other Hydraulic Technician: Surgeons and Role: * No surgeons found with a matching role * Staff: Scrub Person: Kayy Cordwood Cutter: Leesa Cordwood Cutter: Rashad Scrub Person: Deidre Anesthesia Staff: Anesthesiologist: [...] LEAD SPINE STIM SURE-SCAN VECTRIS COMPACT - [id number] Implanted Spinal Hardware KIT, LEAD SPINE STIM SURE-SCAN VECTRIS COMPACT - [id number] Implanted [employer] Inceptiv Generator Implanted [id number] Findings: Leads placed in mid-T7 and top [...] bilateral sequential compression devices Procedure Details: Ms. Ptunam was seen in the preoperative holding area [...] entire procedure. Jamey Collier documented in this [facility] Work Phone: 1(990) 989-130704-17-2025 Attending History and physical note* Ramy Patel MD - 06/24/2024 6:09 AM EDT H&P reviewed. The patient was examined and there are no changes to the H&P. Cosigned by Jamey Collier MD at 06/24/2024 6:31 AM EDT Source Note - Naomi Leung PA-C - 06/16/2024 3:15 PM EDT Images from the original note were not included. CPM/PAT Evaluation Name: Spenser Putnam (Spenser Putnam) /Age: 912/07/1940/83 y.o. Visit Type: In-Person Chief Complaint: perioperative evaluation HPI HPI: 83 y/o female scheduled for Percutaneous Thoracic Spinal Cord Stimulator Electrodes and Generator Placement ([employer]) on 06/24/2024 secondary to Postlaminectomy syndrome of lumbar region with Dr. Jamey Collier who referred to CPM. Presents to CPM today for perioperative risk stratification and optimization. PMHX includes insomnia, vertigo, HTN, HLD, Vitamin B12 deficiency, Vitamin D deficiency, Melanoma, Postlaminectomy syndrome of lumbar region, spinal stenosis of lumbar region, restless leg syndrome, OA, . PCP: Destini Lay PA-C Specialists: [facility] - Aj Graham APRN.PLATEMAKER Cardiology - Juan Spann Past Medical History: [...] Flowsheet Row Pre-Admission Testing from 06/16/2024 in [facility] Can you take care of yourself (eat, [...] 1525 DASI SCORE 18.95 filed at 06/16/2024 1525 METS Score (Will be calculated only when all the questions are answered) 5.1 filed at 06/16/2024 1525 Capduncani DVT Assessment Flowsheet Row Pre-Admission Testing from 06/16/2024 in [facility] DVT Score (IF A SCORE IS NOT [...] Flowsheet Row Pre-Admission Testing from 06/16/2024 in [facility] Non-independent functional status (problems with dressing, bathing, personal grooming, or cooking) 0 filed at 06/16/2024 1613 History of diabetes mellitus 0 filed at 06/16/2024 1613 History of COPD 0 filed at 06/16/2024 1613 History of CHF No filed at 06/16/2024 1613 History of KS 0 filed at 06/16/2024 1613 History of [...] Index Calculator .0909 filed at 06/16/2024 1613 [id number] Stroke Risk Points Current as of just now N/A 0 to 9 Points: Last Change: N/A The HUY3NM5-TNRs risk score (Lip ANNE MARIE, et al. 2009. 2010 [employer]) quantifies the risk of stroke for a patient with atrial fibrillation. For patients without atrial fibrillation or under the age of 18 this score appears as N/A. Higher score values generally indicate higherrisk of stroke. This score is not applicable to this patient. Components are not calculated. Revised Cardiac Risk Index Flowsheet Row Pre-Admission Testing from 06/16/2024 in [facility] High-Risk Surgery (Intraperitoneal, Intrathoracic,Suprainguinal vascular) 0 filed at 06/16/2024 1612 History of ischemic heart disease (History of KS, History of positive exercuse test, Current chest [...] Flowsheet Row Pre-Admission Testing from 06/16/2024 in [facility] Smoking status 1 filed at 06/16/2024 1611 [...] Flowsheet Row Pre-Admission Testing from 06/16/2024 in [facility] Do you snore loudly? 1 filed at [...] Flowsheet Row Pre-Admission Testing from 06/16/2024 in [facility] Age Calculated Score 16 filed at 06/16/2024 [...] currently indicated. Scanned into media, per Dr Tigre Graham MD, patient will need to hold [...] Rate 81 BPM Atrial Rate 81 BPM AR Interval 162 ms QRS Duration 84 ms QT Interval 362 ms QTC Calculation(Bazett) [address] [place] [employer] 57 [address] R [employer] 12 degrees T [employer] 48 degrees QRS Count 13 beats Q [...] Yes; Where will this surgery/delivery be performed? [facility]; What is the date of [...] questions or concerns discussed and addressed. Naomi Leung PA-C [facility] Work Phone: 1([phone]) 259-762704-17-2025 History and physical note* Ramy Patel MD - 06/24/2024 6:09 AM EDT H&P reviewed. The patient was examined and there are no changes to the H&P. Cosigned by Jamey Collier MD at 06/24/2024 6:31 AM EDT Source Note - Naomi Leung PA-C - 06/16/2024 3:15 PM EDT Images from the original note were not included. CPM/PAT Evaluation Name: Spenser Putnam (Spenser Putnam) /Age: 912/07/1940/83 y.o. Visit Type: In-Person Chief Complaint: perioperative evaluation HPI HPI: 83 y/o female scheduled for Percutaneous Thoracic Spinal Cord Stimulator Electrodes and Generator Placement ([employer]) on 06/24/2024 secondary to Postlaminectomy syndrome of lumbar region with Dr. Jamey Collier who referred to CPM. Presents to CPM today for perioperative risk stratification and optimization. PMHX includes insomnia, vertigo, HTN, HLD, Vitamin B12 deficiency, Vitamin D deficiency, Melanoma, Postlaminectomy syndrome of lumbar region, spinal stenosis of lumbar region, restless leg syndrome, OA, . PCP: Destini Lay PA-C Specialists: [facility] - Aj Graham APRN.PLATEMAKER Cardiology - Juan Spann Past Medical History: [...] Flowsheet Row Pre-Admission Testing from 06/16/2024 in [facility] Can you take care of yourself (eat, [...] and moving heavy furniture?0 filed at 06/16/2024 152 Can you do yard work like raking leaves, weeding or pushing a mower? 0 filed at 06/16/2024 152 Can you have sexual relations? 0 filed at 06/16/2024 152 Can you participate in moderate recreational activities like golf, bowling, dancing, doubles tennisor throwing a baseball or football? 0 filed at 06/16/2024 152 Can you participate in strenous sports like swimming, singles tennis, football, basketball, or skiing? 0 filed at 06/16/2024 152 DASI SCORE 18.95 filed at 06/16/2024 152 METS Score (Will be calculated only when all the questions are answered) 5.1 filed at 06/16/2024 152 Caprini DVT Assessment Flowsheet Row Pre-Admission Testing from 06/16/2024 in [facility] DVT Score (IF A SCORE IS NOT [...] Flowsheet Row Pre-Admission Testing from 06/16/2024 in [facility] Non-independent functional status (problems with dressing, bathing, personal grooming, or cooking) 0 filed at 06/16/2024 1613 History of diabetes mellitus 0 filed at 06/16/2024 1613 History of COPD 0 filed at 06/16/2024 1613 History of CHF No filed at 06/16/2024 1613 History of KS 0 filed at 06/16/2024 1613 History of [...] Index Calculator .0909 filed at 06/16/2024 1613 [id number] Stroke Risk Points Current as of just now N/A 0 to 9 Points: Last Change: N/A The VEB6ET8-OGGy risk score (Lip ANNE MARIE, et al. 2009. 2010 [employer]) quantifies the risk of stroke for a patient with atrial fibrillation. For patients without atrial fibrillation or under the age of 18 this score appears as N/A. Higher score values generally indicate higherrisk of stroke. This score is not applicable to this patient. Components are not calculated. Revised Cardiac Risk Index Flowsheet Row Pre-Admission Testing from 06/16/2024 in [facility] High-Risk Surgery (Intraperitoneal, Intrathoracic,Suprainguinal vascular) 0 filed at 06/16/2024 1612 History of ischemic heart disease (History of KS, History of positive exercuse test, Current chest [...] Flowsheet Row Pre-Admission Testing from 06/16/2024 in [facility] Smoking status 1 filed at 06/16/2024 1611 [...] Flowsheet Row Pre-Admission Testing from 06/16/2024 in [facility] Do you snore loudly? 1 filed at [...] Flowsheet Row Pre-Admission Testing from 06/16/2024 in [facility] Age Calculated Score 16 filed at 06/16/2024 [...] currently indicated. Scanned into media, per Dr Tigre Graham MD, patient will need to hold [...] Rate 81 BPM Atrial Rate 81 BPM AR Interval 162 ms QRS Duration 84 ms QT Interval 362 ms QTC Calculation(Bazett) [address] [employer] 57 degrees R [employer] 12 degrees T [employer] 48 degrees QRS Count 13 beats Q [...] Yes; Where will this surgery/delivery be performed? [facility]; What is the date of [...] questions or concerns discussed and addressed. Naomi Leung PA-C documented in this encounterCleveland Clinic Work Phone: 1(919) 523-385804-15-2025 Telephone encounter Note* Telephone Encounter - Tova Diaz MA - 06/22/2024 8:53 AM EDT Pt notified of results via mychart. Tova Diaz Ma [facility]04-15-2025 Miscellaneous Notes* Telephone Encounter - Tova Diaz MA - 06/22/2024 8:53 AM EDT Pt notified of results via mychart. Tova Diaz Ma * Telephone Encounter - [...] to PCP as FYI. documented in this encounterBrecksville [facility]04-15-2025 Telephone encounter Note * Telephone Encounter - Tova Diaz MA - 06/22/2024 8:52 AM EDT ----- Message from Thang Shannon MD sent at 06/22/2024 7:16 AM EDT ----- Patient's repeat potassium level is normal after stopping her potassium supplement. Sodium level remains borderline low. Recommend follow up with her PCP for repeat labs at future OV. Sending to PCP as FYI. [facility]04-10-2025 Telephone encounter Note* Telephone Encounter - Jonas Milan LPN - 06/17/2024 9:25 AM EDT Pt's daughter calling advising that pt had pre-op labs done yesterday at [facility]. Had a BMP and CBC completed. Wanting to know if pt still needed to have lab work done that pcp/Destini ordered. Advised her that Dr Shannon had ordered a CMP d/t her potassium level was still scott when re checked. He was covering for pcp and Destini. She advises that she will have pt complete these labstoday. Jonas Milan LPN [facility]04-10-2025 Miscellaneous Notes* Telephone Encounter - Jonas Milan LPN - 06/17/2024 9:25 AM EDT Pt's daughter calling advising that pt had pre-op labs done yesterday at [facility]. Had a BMP and CBC completed. Wanting to know if pt still needed to have lab work done that pcp/Destini ordered. Advised her that Dr Shannon had ordered a CMP d/t her potassium level was still scott when re checked. He was covering for pcp and Destini. She advises that she will have pt complete these labstoday. Jonas Milan LPN documented in this encounterBrecksville [facility]04-01-2025 Telephone encounter Note * Telephone Encounter - Minnie Guzman LPN - 06/08/2024 10:27 AM EDT Phoned patient and reviewed provider's message with her. She voiced understanding. Minnie Guzman LPN [facility]04-01-2025 Miscellaneous Notes* Telephone Encounter - Minnie [...] PO fluids at home. documented in this encounterBrecksville [facility]03-31-2025 Telephone encounter Note * Telephone Encounter [...] 1 week. Push PO fluids at home. [facility]03-27-2025 Telephone encounter Note* Telephone Encounter - Hector Marie MA - 06/03/2024 4:07 PM EDT Patient informed. Hector Marie MA [facility]03-27-2025 Miscellaneous Notes* Telephone Encounter - Hector [...] on Friday go to the lab at [facility] to get e repeat blood draw. Order placed. documented in this encounterBrecksville [facility]03-27-2025 Telephone encounter Note * Telephone Encounter - Juan Spann MD - 06/03/2024 3:24 PM EDT Let patient know her cent labs were ok but her potassium was slightly elevated and she looked dehydrated. Ask her to increase her water intake and on Friday go to the lab at [facility] to get e repeat blood draw. Order placed. [facility]03-26-2025 Instructions* Patient Instructions* Juan Spann MD - 06/02/2024 11:37 AM EDT Hold your baby Aspirin and Celecoxib starting on 06/17/2024 and restart 2-3 days after surgery unless your surgeon tells you otherwise. documented in this encounterBrecksville [facility]03-26-2025 History of Present illness Narrative* Juan Spann MD - 06/02/2024 10:40 AM EDT Chief Complaint Patient presents with: Pre-Op Exam HPI Spenser Putnam is a 83 year old female who presents here today for Pre op for Spinal Cord Stimulator;leads and generator implant at [facility] Patient with hx HTN, hyperlipidemia, RLS, insomnia, vit b12 def, OA and those as below. Patient has a Hx of HTN and has lumbar radiculopathy and is set up to have a spinal cord stimulatorwith generator implanted per Dr. Jamey Collier on 06/24/[address] [facility]. Patient has been dong ok. No complaints [...] Coronary Artery Disease Maternal Grandmother Hx of KS Diabetes Daughter Type I Patient Allergies ALLERGIES [...] significant changes compared to EKG from 11/05/2012 Health Maintenance List Depression Screening Never done [...] Abs Lymph 1.00 - 4.00 k/uL 2.55 [place]% % 6.8 Abs [place] <0.87 k/uL 0.64 Eosin% % 1.6 Abs [...] Mediterranean diet - Recommend regular aerobic exercise Juan Spann MD documented in this encounterBrecksville [facility]03-26-2025 NoteHNO ID: [id number] Author: JUAN SPANN MD Service: ? Author Type: Physician Type: Progress Notes Filed: 06/03/2024 08:17 Note Text: Chief Complaint Patient presents with: Pre-Op Exam HPI Spenser Putnam is a 83 year old female who presents here today for Pre op for Spinal Cord Stimulator;leads and generator implant at [facility] Patient with hx HTN, hyperlipidemia, RLS, insomnia, vit b12 def, OA and those as below. Patient has a Hx of HTN and has lumbar radiculopathy and is set up to have a spinal cord stimulator with generator implanted per Dr. Jamey Collier on 06/24/[address] [facility]. Patient has been dong ok. No complaints [...] Coronary Artery Disease Maternal Grandmother Hx of KS Diabetes Daughter Type I Patient Allergies ALLERGIES [...] chloride 20 mEq T (more content not included)...[facility]03-17-2025 Telephone encounter Note* Telephone Encounter - [...] bedtime. Please review and advise. Minnie Bennett [facility]03-17-2025 Miscellaneous Notes* Telephone Encounter - Minnie [...] and advise. Minnie Bennett documented in this encounterBrecksville Va [facility]03-11-2025 Note* Addendum Note - Aj Graham APRN.CNP - 05/18/2024 10:46 AM EDTAddended by: AJ GRAHAM on: 05/18/2024 10:46 AM Modules accepted: Orders [facility]03-11-2025 Telephone encounter Note* Telephone Encounter - Aj Graham APRN.CNP - 05/18/2024 10:46 AM EDT Ordered reviewed, script refilled [facility]03-11-2025 Miscellaneous Notes* Addendum Note - Aj Graham APRN.CNP - 05/18/2024 10:46 AM EDTAddended by: AJ GRAHAM on: 05/18/2024 10:46 AM Modules accepted: Orders * Telephone Encounter - Aj Graham APRN.CNP - 05/18/2024 10:46 AM EDT Ordered reviewed, script refilled * Telephone Encounter - Meg Chaudhary LPN - 05/18/2024 9:10 AM EDT [facility] faxed requesting the following refill: Refill(s) Requested: Requested Prescriptions No prescriptions requested or ordered in this encounter celecoxib (CELEBREX) 200 mg capsule ALLERGIES Allergen Reactions Sulfa (Sulfonamide * Swelling, Anaphylaxis Tongue/ throat swelled Phenergan Plain Vomiting Vomiting Hydrocodone-Acetami* GI Upset NAUSEA Procardia [Nifedipi* Swelling legs (home) [phone] (cell) Last Office Visit Date: 05/04/2024 Last Distance Health Visit: 04/13/2024 Future Appointment: 07/06/2024 Provider: Aj Graham The patients preferred pharmacy has been captured for this encounter? no Request is for script(s) to be escript to pharmacy. E- [id number] [place] [address] - [address] [facility]. - [phone] [facility] [phone] Specialty Problems Neuro problems Insomnia, unspecified Restless leg syndrome Carpal tunnel syndrome, left Lumbar radiculopathy Pharmacy stated on faxed that patient previously asked pharmacy to cancel this script, now expecting refill Meg Chaudhary LPN May 18, 2024 9:10 AM documented in this encounterBrecksville [facility]03-11-2025 Telephone encounter Note * Telephone Encounter - Meg Chaudhary LPN - 05/18/2024 9:10 AM EDT [facility] faxed requesting the following refill: Refill(s) Requested: Requested Prescriptions No prescriptions requested or ordered in this encounter celecoxib (CELEBREX) 200 mg capsule ALLERGIES Allergen Reactions Sulfa (Sulfonamide * Swelling, Anaphylaxis Tongue/ throat swelled Phenergan Plain Vomiting Vomiting Hydrocodone-Acetami* GI Upset NAUSEA Procardia [Nifedipi* Swelling legs (home) [phone] (cell) Last Office Visit Date: 05/04/2024 Last [facility] Visit: 04/13/2024 Future Appointment: 07/06/2024 Provider: Aj Graham The patients preferred pharmacy has been captured for this encounter? no Request is for script(s) to be escript to pharmacy. E- [id number] [place] [address] - [address] [facility] - [phone] [facility] [id number] Specialty Problems Neuro problems Insomnia, unspecified Restless leg syndrome Carpal tunnel syndrome, left Lumbar radiculopathy Pharmacy stated on faxed that patient previously asked pharmacy to cancel this script, now expecting refill Meg Chaudhary LPN May 18, 2024 9:10 AM [facility]03-05-2025 Telephone encounter Note* Telephone Encounter - Mony Laboy - 05/12/2024 11:17 AM EST Spoke to Preethi from [employer] patient was seen by Dr benedict office, patient is waiting to be schedule for implant we reached out to see when she will be scheduled they will be calling her [facility]03-05-2025 Miscellaneous Notes* Telephone Encounter - Mony Laboy - 05/12/2024 11:17 AM EST Spoke to Preethi from [employer] patient was seen by Dr benedict office, patient is waiting to be schedule for implant we reached out to see when she will be scheduled they will be calling her documented in this encounterBrecksville [facility]02-25-2025 NoteHNO ID: [id number] Author: AJ GRAHAM APRN.PLATEMAKER Service: ? Author Type: Nurse Practitioner Type: Procedures Filed: 05/04/2024 13:26 Note Text: [facility] Date: 05/04/2024 Name: Spenser Putnam : 1940 Purpose: SCS lead(s) Removal Interval History: Spenser Putnam is an established patient at [facility], who presents today for removal of SCS [...] incident The patient will be followed by sales support representative from the company Additional tests, treatments, or referrals: Spenser Putnam is am appropriate for permanent SCS implant and will be scheduled. With Dr Collier. Follow-up: 2 months Aj Graham APRN.CNP Pain Management [facility] 05-04-2024 Procedure note* Aj Graham APRN.CNP - 05/04/2024 1:11 PM EST [facility] Date: 05/04/2024 Name: Spenser Putnam : 1940 Purpose: SCS lead(s) Removal Interval History: Spenser Putnam is an established patient at [facility], who presents today for removal of SCS [...] incident The patient will be followed by sales support representative from the company Additional tests, treatments, or referrals: Spenser Putnam is am appropriate for permanent SCS implant and will be scheduled. With Dr Collier. Follow-up: 2 months Aj Graham APRN.CNP Pain Management [facility]02-25-2025 Procedure note* Aj Graham APRN.CNP - 05/04/2024 1:11 PM EST [facility] Date: 05/04/2024 Name: Spenser Putnam : 1940 Purpose: SCS lead(s) Removal Interval History: Spenser Putnam is an established patient at [facility], who presents today for removal of SCS [...] incident The patient will be followed by sales support representative from the company Additional tests, treatments, or referrals: Spenser Putnam is am appropriate for permanent SCS implant and will be scheduled. With Dr Collier. Follow-up: 2 months Aj Graham APRN.CNP Pain Management [facility] documented in this encounterBrecksville [facility]02-[facility]-2025 NoteHNO ID: [id number] Author: MARISSA BRIONES LPN Service: ? Author [...] and suicidal ideas. The patient is not nervous/anxious.[facility] 05-04-2024 History of Present illness Narrative* [...] patient is not nervous/anxious. documented in this encounterBrecksville [facility] History of Present illness Narrative* Jamey Collier MD - 05/03/2024 2:00 PM EST [facility] Neurosurgery Diagnosis Diagnoses and all orders for [...] around 6 and 10 years ago at [facility], for treatment of primarily lowback pain without [...] central or foraminal stenosis. documented in [facility] encounterCleveland Clinic Work Phone: 1(981) 177-482602-24-2025 History of Present illness Narrative* Joel Aguilar RT(Theersa) - 05/03/2024 8:10 AM EST Radiology Service [...] PATIENT PRESENTS WITH AN IMPLANTABLE OR ATTACHED ACCOUNTING CLERK: yes, SCS device RADIOLOGY DEPARTMENT: LUMBAR AP/LAT T-SPINE AP/LAT WT BEARING PERIPHERAL IV DATA: Not applicable SIGNED BY: RT Airam(Theresa) May 03, 2024 8:45 AM documented in this encounterBrecksville [facility]02-24-2025 NoteHNO ID: [id number] Author: JOEL AGUILAR RT(R) Service: ? Author [...] PATIENT PRESENTS WITH AN IMPLANTABLE OR ATTACHED ACCOUNTING CLERK: yes, SCS device RADIOLOGY DEPARTMENT: LUMBAR AP/LAT T-SPINE AP/LAT WT BEARING PERIPHERAL IV DATA: Not applicable SIGNED BY: Joel Aguilar RT(R) May 03, 2024 8:45 [facility]02-18-2025 History of Present illness Narrative* Danii Roca MD, PhD - 04/27/2024 1:30 PM EST [facility] Date: 04/27/2024 Patient name: Spenser Putnam [...] or double vision) Respiratory: Negative (No Cough, Eqhqreozq-jl-rvehlo, Dyspnea on exertion, wheezing) Cardiovascular: Negative (No [...] Coronary Artery Disease Maternal Grandmother Hx of [place] Diabetes Daughter Type I Social History Tobacco [...] times (time out, procedure start, procedure end). [place] protocol documentation / Pre-Procedure checklist: Unless stated [...] procedure site (marked), laterality, anticoagulants and allergies [place] protocol documentation / Pre-Procedure Checklist: Consent: Obtained [...] stimulator leads were checked by the device sales support representative who was in the room at [...] PhD Pain Management [facility] * Ashutosh Vance LPN - 04/27/2024 12:54 PM EST Spinal Cord Stimulator Trial Procedure Date: April 27, 2024 Patient Name: Spenser Putnam Date of : 1940 Time in:1348 Time start:1351 Time stop:1508 SCS System VECTRIS SCREENING TRIAL KIT Model : [employer] LOT: [id number] EXP: 2028-03-31 SCS System WIRELESS EXTERNAL NEUROSTIMULATOR Model: [employer] LOT: [id number] EXP: 2025-06-14 SCS System VECTRIS SCREENING TRIAL KIT Model: [employer] LOT: [id number] EXP: 2028-02-13 Nurse : Ashutosh Vance LPN [...] table. Patient s procedure was performed in [facility] procedure room. Pressure was applied to patient s injection site(s) and bleeding was minimal. Patient had no complaint of shortness of breath, dizziness, headache, numbness, tingling, weakness or complications from procedure. Patient was assisted fromthe procedure table onto the stretcher and wheeled into a post op bay. Patient was advised a Medtronic Hose Cementer would be in for reprogramming. Patient was advised a clinician will be to obtain another set of vitals. Present in the room is: Danii Roca MD, PhD - Physician Ashutosh Smith: [employer] Hose Cementer [employer] - X-Ray Tech Comments: None [...] Chaudhary LPN - 04/27/2024 12:38 PM EST Angle Bender's Name: elysia Are you on a blood [...] y for this procedure documented in this encounterBrecksville [facility]02-[facility]-2025 NoteHNO ID: [id number] Author: DANII ROCA MD, PhD Service: ? Author Type: Physician Type: Progress Notes Filed: 04/27/2024 15:18 Note Text: [facility] Date: 04/27/2024 Patient name: Spenser Putnam [...] or double vision) Respiratory: Negative (No Cough, Zsvfmykcz-lh-arjoxh, Dyspnea on exertion, wheezing) Cardiovascular: Negative (No [...] ORAL) Take by mouth (more content not included)...[facility]02-18-2025 NoteHNO ID: [id number] Author: ASHUTOSH VANCE LPN Service: ? Author Type: LICENSED NURSE Type: Progress Notes Filed: 05/12/2024 09:15 Note Text: Spinal Cord Stimulator Trial Procedure Date: April 27, 2024 Patient Name: Spenser Putnam Date of : 1940 Time in:1348 Time start:1351 Time stop:1508 SCS System VECTRIS SCREENING TRIAL KIT Model : [employer] LOT: [id number] EXP: 2028-03-31 SCS System WIRELESS EXTERNAL NEUROSTIMULATOR Model: [employer]S LOT: [id number] EXP: 2025-06-14 SCS System VECTRIS SCREENING TRIAL KIT Model: [employer] LOT: [id number] EXP: 2028-02-13 Nurse : Ashutosh Vance LPN [...] procedure table. Patient?s procedure was performed in [facility] procedure room. Pressure was applied to patient?s injection site(s) and bleeding was minimal. Patient had no complaint of shortness of breath, dizziness, headache, numbness, tingling, weakness or complications from procedure. Patient was assisted from the procedure table onto the stretcher and wheeled into a post op bay. Patient was advised a Medtronic Hose Cementer would be in for reprogramming. Patient was advised a clinician will be to obtain another set of vitals. Present in the room is: Danii Roca MD, PhD - Physician Ashutosh Smith: [employer] Hose Cementer [employer] - X-Ray Tech Comments: None Tolerated procedure well: Yes Review of [facility] 04-27-2024 Instructions* Patient Instructions* Malika Jones LPN [...] removed. Malika Jones LPN documented in this encounterBrecksville [facility]02-[facility]-2025 NoteHNO ID: [id number] Author: MEG CHAUDHARY LPN Service: ? Author [...] mood and suicidal ideas. The patient is nervous/anxious.[facility]02-18-2025 NoteHNO ID: [id number] Author: MEG CHAUDHARY LPN Service: ? Author Type: LICENSED NURSE Type: Progress Notes Filed: 04/27/2024 15:18 Note Text: Angle Bender's Name: elysia Are you on a blood [...] currently on an antibiotic: y for this procedureDown [facility] Hospital02-17-2025 Telephone encounter Note* Telephone Encounter - Monae Mancini PSS - 04/26/2024 3:33 PM EST Patient called LVM stated she had question about her trial. VM was transferred to [facility] @ [id number] Mon[address] [place] to Dr. Danii Roca,PhD, Dr. Kahlil Juarez,DO, Mikie Hardwick, 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 ENGINEER,PLATEMAKER [facility] P: [phone] / F: [phone] [facility]02-17-2025 Miscellaneous Notes* Telephone Encounter - Monae Mancini PSS - 04/26/2024 3:33 PM EST Patient called LVM stated she had question about her trial. VM was transferred to [facility]ony @ [id number] [address] [place] to Dr. Danii Roca,PhD, Dr. Kahlil Juarez,DO, Mikie Hardwick, 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 ENGINEER,PLATEMAKER [facility] P: [phone] / F: [phone] documented in this encounterBrecksville [facility]02-12-2025 Telephone encounter Note * Telephone Encounter - Mony Laboy - 04/21/2024 1:21 PM EST CALLED PATIENT SPOKE TO DAUGHTER AND SPENSER THEY BOTH CONFIRMED 04/27/24 IS A GOOD DAY PATIENT IS ON THE SCHEDULE Mony Laboy [facility]02-12-2025 Miscellaneous Notes* Telephone Encounter - Mony Laboy - 04/21/2024 1:21 PM EST CALLED PATIENT SPOKE TO DAUGHTER AND SPENSER THEY BOTH CONFIRMED 04/27/24 IS A GOOD DAY PATIENT IS ON THE SCHEDULE Mony Laboy documented in this encounterBrecksville [facility]02-11-2025 Telephone encounter Note * Telephone Encounter - Aj Graham APRN.PLATEMAKER - 04/20/2024 4:14 PM EST Can you set up a VV for this pt this week so we can discuss her issue? Thanks. [facility] Work Phone: 1(291) 781-774102-11-2025 Miscellaneous Notes* Telephone Encounter - Aj Graham APRN.CNP - 04/20/2024 4:14 PM EST Can you set up a VV for this pt this week so we can discuss her issue? Thanks. documented in this encounterBrecksville [facility]02-11-2025 Telephone encounter Note * Telephone Encounter - Thony Ta - 04/20/2024 2:01 PM EST Patient would like a call to discuss progress on her SCS procedure. She has not heard from anyone. Thony Ta [facility]02-11-2025 Miscellaneous Notes* Telephone Encounter - Thony Ta - 04/20/2024 2:01 PM EST Patient would like a call to discuss progress on her SCS procedure. She has not heard from anyone. Thony Ta documented in this encounterBrecksville [facility]02-10-2025 Telephone encounter Note * Telephone Encounter [...] Joyce MA April 19, 2024 10:49 AM [facility]02-10-2025 Miscellaneous Notes* Telephone Encounter - Kelle [...] 19, 2024 10:49 AM documented in this encounterBrecksville [facility]02-04-2025 Instructions* Patient Instructions* Aj Graham APRN.CNP - 04/13/2024 4:16 PM EST Ice and heat as tolerated Activity as tolerated documented in this encounterBrecksville [facility]02-04-2025 NoteHNO ID: [id number] Author: AJ GRAHAM APRN.CNP Service: ? Author Type: Nurse Practitioner Type: Progress Notes Filed: 04/13/2024 16:16 Note Text: VIRTUAL VISIT PROGRESS NOTE This is a virtual visit using [employer] Video Visit. It required patient-provider interaction for the medical decision making as documented below. I have communicated my name and active licensure. The patient's identity and physical location were verified at the time of this visit. Either the patient or their legal sales support representative has been informed of the risks and benefits of -- and alternatives to -- treatment through a remote evaluation and consents to proceed with the evaluation remotely. [facility] Today's Date: 04/13/2024 Name: Spenser Putnam : [...] fluoroscopic guidance LEFT-SIDED at S1 and L5-S1 Angle Bender Needed: Epidural - YES Anticoagulant - Hold Needed: N/A (Not currently on Anticoagulants) Anticoagulant - Currently Taking: None Allergies (relevant): None Scheduling - Mobility (Can Patient independently transfer on/off an OR or Procedure table?): YES (May schedule at any location) Scheduling - Additional Info: None Studies: None Functional [employer]eterian: Physical Therapy Consultation (Land-Based) Referrals: No additional [...] Therapies Attended (Current or Most Recent): Jeremiah [facility] Physical Therapy 04/17/2023 12/11/2023 AG SPINE COMBINATION [...] TFESI L2-L3 90% 20 (more content not included)...[facility]02-04-2025 History of Present illness Narrative* Aj Graham APRN.PLATEMAKER - 04/13/2024 3:53 PM EST Images from the original note were not included. VIRTUAL VISIT PROGRESS NOTE This is a virtual visit using [employer] Video Visit. It required patient- provider interaction for the medical decision making as documented below. I have communicated my name and active licensure. The patient's identity and physical location wereverified at the time of this visit. Either the patient or their legal sales support representative has been informed of the risks and benefits of -- and alternatives to -- treatment through a remote evaluation andconsents to proceed with the evaluation remotely. [facility] Today's Date: 04/13/2024 Name: Spenser Putnam : [...] under fluoroscopic guidance LEFT-SIDEDat S1 and L5-S1 Angle Bender Needed: Epidural - YES Anticoagulant - Hold Needed: N/A (Not currently on Anticoagulants) Anticoagulant - Currently Taking: None Allergies (relevant): None Scheduling - Mobility (Can Patient independently transfer on/off an OR or Procedure table?): YES (May schedule at any location) Scheduling - Additional Info: None Studies: None Functional Presy[employer]eterian: Physical Therapy Consultation (Land-Based) Referrals: No additional [...] Therapies Attended (Current or Most Recent): Jeremiah [facility] Physical Therapy 04/17/2023 12/11/2023 AG SPINE COMBINATION [...] and validated on 04/13/2024 by Aj Graham APRN.PLATEMAKER All prescriptions have been APPROPRIATELY filled. No [...] DATE OF EXAM: Jan 17 2024 1:01PM [facility] 0325 - MRI THORACIC SPINE WO [...] and assume there are 5 lumbar-type vertebrae. Pile Driver: DARRYL Transcribe Date/Time: Jan 17 2024 1:14P [...] Spine and lumbar spine are complete Functional Presybeterian: Patient reporting she did physical therapy which [...] APRN.JOVANY Pain Management [facility] documented in this encounterBrecksville [facility]01-27-2025 Miscellaneous Notes* Telephone Encounter - Kelle [...] 05, 2024 10:34 AM documented in this encounterBrecksville Va [facility]01-27-2025 Telephone encounter Note * Telephone Encounter [...] Joyce MA April 05, 2024 10:34 AM [facility]01-16-2025 Telephone encounter Note* Telephone Encounter - Rosalba Arriaga LPN - 03/25/2024 1:57 PM EST Attempted to call patient to follow-up from procedure, no answer. Message left to return call with any questions or concerns. Rosalba Arriaga LPN [facility]01-16-2025 Miscellaneous Notes* Telephone Encounter - Rosalba Arriaga LPN - 03/25/2024 1:57 PM EST Attempted to call patient to follow-up from procedure, no answer. Message left to return call with any questions or concerns. Rosalba Arriaga LPN documented in this encounterBrecksville Va [facility]01-14-2025 NoteHNO ID: [id number] Author: SARAVANAN JUAREZ LPN Service: ? Author [...] via ambulatory method. Patient left in good condition.[facility]01-14-2025 History of Present illness Narrative* Saravanan [...] tablePatient s procedure was performed in an [facility] Procedure room. Pause completed at each [...] allergies Procedure Start: 1431 Procedure End: 1447 Danii Cottrell MD, PhD - 03/23/2024 1:40 PM EST [facility] Date: 03/23/2024 Patient name: Spenser Putnam [...] or double vision) Respiratory: Negative (No Cough, Cduxceohv-ro-ebipus, Dyspnea on exertion, wheezing) Cardiovascular: Negative (No [...] Coronary Artery Disease Maternal Grandmother Hx of [place] Diabetes Daughter Type I Social History Tobacco [...] times (time out, procedure start, procedure end). [place] protocol documentation / Pre-Procedure checklist: Unless stated [...] procedure site (marked), laterality, anticoagulants and allergies [place] protocol documentation / Pre-Procedure Checklist: Consent: Obtained [...] PhD Pain Management [facility] * Marissa Briones LPN - 03/23/2024 1:23 PM EST Angle Bender's Name: larry Are you on a blood [...] patient is not nervous/anxious. documented in this encounterBrecksville [facility]01-14-2025 Instructions* Patient Instructions* Saravanan Juarez LPN [...] emergency care and why. documented in this encounterBrecksville Va [facility]01-14-2025 NoteHNO ID: [id number] Author: ROSALBA ARRIAGA LPN Service: ? Author Type: LICENSED NURSE Type: Progress Notes Filed: 03/28/2024 09:06 Note Text: Procedure to be performed: L2/L3 Bilateral Transforaminal Epidural Steroid Injection Patient was wheeled on stretcher from pre op bay to procedure room and assisted onto the procedure tablePatient?s procedure was performed in an [facility] Procedure room. Pause completed at each [...] procedure site, laterality, and allergies Procedure Start: 143 Procedure End: 144[facility]01-14-2025 NoteHNO ID: [id number] Author: DANII ROCA MD, PhD Service: ? Author Type: Physician Type: Progress Notes Filed: 03/28/2024 09:06 Note Text: [facility] Date: 03/23/2024 Patient name: Spenser Putnam [...] or double vision) Respiratory: Negative (No Cough, Pihvlnyux-zo-bsbyuy, Dyspnea on exertion, wheezing) Cardiovascular: Negative (No [...] one pill twice da (more content not included)...[facility]01-14-2025 NoteHNO ID: [id number] Author: MARISSA BRIONES LPN Service: ? Author Type: LICENSED NURSE Type: Progress Notes Filed: 03/28/2024 09:06 Note Text: Angle Bender's Name: larry Are you on a blood [...] and suicidal ideas. The patient is not nervous/anxious.[facility]01-13-2025 Telephone encounter Note* Telephone Encounter - Jonas Milan LPN - 03/22/2024 9:00 AM EST Pt notified of same. Jonas Milan LPN [facility]01-13-2025 Miscellaneous Notes* Telephone Encounter - Jonas Milan LPN - 03/22/2024 9:00 AM EST Pt notified of same. Jonas Milan LPN * Telephone Encounter - Destini Lay PA-C - 03/22/2024 8:42 AM EST Let patient know that her labs were stable. Destini Lay PA-C documented in this encounterBrecksville Va [facility]01-13-2025 Telephone encounter Note * Telephone Encounter - Destini Lay PA-C - 03/22/2024 8:42 AM EST Let patient know that her labs were stable. Destini Lay PA-C [facility]01-10-2025 NoteHNO ID: [id number] Author: DESTINI LAY PA-C Service: ? Author Type: Physician Hydraulic Technician Type: Progress Notes Filed: 03/19/2024 13:36 [...] Coronary Artery Disease Maternal Grandmother Hx of [place] Diabetes Daughter Type I Patient Allergies ALLERGIES [...] mg tablet Jose Manuel (more content not included)...[facility]01-10-2025 History of Present illness Narrative* Destini [...] Coronary Artery Disease Maternal Grandmother Hx of [place] Diabetes Daughter Type I Patient Allergies ALLERGIES [...] 03/19/2024 1:09 PM EST documented in this encounterBrecksville Va [facility]01-10-2025 NoteHNO ID: [id number] Author: DESTINI LAY PA-C Service: ? Author Type: Physician Hydraulic Technician Type: Progress Notes Filed: 03/19/2024 13:36 Note Text:[facility]01-10-2025 Telephone encounter Note* Telephone Encounter - Kelle Joyce MA - 03/19/2024 8:44 AM EST Did attempted to contact pharmacy.. currently closed will try back. Patient is being seen today. Will have provider address. Kelle Joyce MA [facility]01-10-2025 Miscellaneous Notes* Telephone Encounter - Kelle Joyce MA - 03/19/2024 8:44 AM EST Did attempted to contact pharmacy.. currently closed will try back. Patient is being seen today. Will have provider address. Kelle Joyce MA documented in this encounterBrecksville [facility]12-31-2024 Telephone encounter Note * Telephone Encounter [...] Quiles LPN March 09, 2024 1:23 PM [facility]12-31-2024 Miscellaneous Notes* Telephone Encounter - Cintia [...] 09, 2024 1:23 PM documented in this encounterBrecksville Va [facility]12-06-2024 Telephone encounter Note * Telephone Encounter [...] Quiles LPN February 13, 2024 9:10 AM [facility]12-06-2024 Miscellaneous Notes* Telephone Encounter - Cintia [...] 13, 2024 9:10 AM documented in this encounterBrecksville Va / [facility]11-25-2024 Telephone encounter Note * Telephone Encounter - Fawad Leong LPN - 02/02/2024 1:03 PM EST Spoke with patient following up from procedure. Patient states they are doing well, no questions orconcerns at this time. Fawad Leong LPN [facility]11-25-2024 Miscellaneous Notes* Telephone Encounter - Fawad Leong LPN - 02/02/2024 1:03 PM EST Spoke with patient following up from procedure. Patient states they are doing well, no questions orconcerns at this time. Fawad Leong LPN documented in this encounterBrecksville Va [facility]11-22-2024 Instructions* Patient Instructions* Malika Jones LPN - 01/30/2024 12:50 PM EST PROCEDURE DISCHARGE INSTRUCTIONS 01/30/2024 Spenser Putnam 1940 Physician: Danii Roca MD, [...] emergency care and why. documented in this encounterBrecksville Va [facility]11-22-20[facility] Nurse Note* Malika Jones LPN - [...] ambulatory method. Patient left in good condition. [facility]11-22-[facility] Nurse Note* Malika Jones LPN - [...] tablePatient s procedure was performed in an [facility] Procedure room. Pause completed at each [...] Briones LPN - 01/30/2024 12:05 PM EST Angle Bender's Name: walkter Are you on a blood [...] on an antibiotic: n documented in this encounterBrecksville Va / [facility]11-22-2024 Nurse Note* Ashutosh Vance LPN - 01/30/2024 12:15 PM EST Procedure to be performed: Caudal Epidural Steroid Injection Patient was wheeled on stretcher from pre op bay to procedure room and assisted onto the procedure tablePatient s procedure was performed in an [facility] Procedure room. Pause completed at each [...] allergies Procedure Start: 1238 Procedure End: 1248 [facility]11-22-2024 NoteHNO ID: [id number] Author: MARISSA BRIONES LPN Service: ? Author [...] and suicidal ideas. The patient is not nervous/anxious.[facility]11-22-2024 History of Present illness Narrative* Marissa [...] 12:10 PM EST [facility] Date: 01/30/2024 Patient name: Spenser Putnam [...] or double vision) Respiratory: Negative (No Cough, Ujiigwgmf-tz-crstty, Dyspnea on exertion, wheezing) Cardiovascular: Negative (No [...] Coronary Artery Disease Maternal Grandmother Hx of [place] Diabetes Daughter Type I Social History Tobacco [...] times (time out, procedure start, procedure end). [place] protocol documentation / Pre-Procedure checklist: Unless stated [...] procedure site (marked), laterality, anticoagulants and allergies [place] protocol documentation / Pre-Procedure Checklist: Consent: Obtained [...] PhD Pain Management [facility] documented in this encounterBrecksville [facility]11-22-2024 NoteHNO ID: [id number] Author: DANII ROCA MD, PhD Service: ? Author Type: Physician Type: Progress Notes Filed: 01/30/2024 16:17 Note Text: [facility] Date: 01/30/2024 Patient name: Spenser Putnam [...] or double vision) Respiratory: Negative (No Cough, Qvyunnqxh-hz-ftcdzs, Dyspnea on exertion, wheezing) Cardiovascular: Negative (No [...] (LYRICA) 50 mg ca (more content not included)...[facility]11-22-2024 Nurse Note* Marissa Briones LPN - 01/30/2024 12:05 PM EST Angle Bender's Name: walkter Are you on a blood [...] Are you currently on an antibiotic: n [facility]11-21-2024 NoteHNO ID: [id number] Author: DANII ROCA MD, PhD Service: ? Author Type: Physician Type: Progress Notes Filed: 01/29/2024 10:43 Note Text: [facility] Today's Date: 01/29/2024 Name: Spenser Putnam [...] fluoroscopic guidance LEFT-SIDED at S1 and L5-S1 Angle Bender Needed: Epidural - YES Anticoagulant - Hold Needed: N/A (Not currently on Anticoagulants) Anticoagulant - Currently Taking: None Allergies (relevant): None Scheduling - Mobility (Can Patient independently transfer on/off an OR or Procedure table?): YES (May schedule at any location) Scheduling - Additional Info: None Studies: None Functional Presybeterian: Physical Therapy Consultation (Land-Based) Referrals: No additional [...] TFESI completed on 11/21/2023, but no significant termination clerk benefit. She has previously had left L4-5 [...] Therapies Attended (Current or Most Recent): Jeremiah [facility] Physical Therapy 04/17/2023 12/11/2023 AG SPINE COMBINATION Questionnaire GREENLIGHT Completed Date 04/17/2023 Completed Date 12/11/2023 Comments NIDHI Questionnaire Opiod Risk Tool Completed Date 04/17/2023 Comments 0 No question data found. (All drug screens are appropriate unless indicated otherwise) Notable Events During Course of (more content not included)...[facility]11-21-2024 History of Present illness Narrative* Danii Roca MD, PhD - 01/29/2024 9:57 AM EST Images from the original note were not included. [facility] Today's Date: 01/29/2024 Name: Spenser Putnam : [...] under fluoroscopic guidance LEFT-SIDEDat S1 and L5-S1 Angle Bender Needed: Epidural - YES Anticoagulant - Hold Needed: N/A (Not currently on Anticoagulants) Anticoagulant - Currently Taking: None Allergies (relevant): None Scheduling - Mobility (Can Patient independently transfer on/off an OR or Procedure table?): YES (May schedule at any location) Scheduling - Additional Info: None Studies: None Functional Presybeterian: Physical Therapy Consultation ([facility]) Referrals: No additional considerations at present Follow-up: 2 months Depending on response to the above plan, consider: SCS discussion, titrate Lyrica Interval History: Overall pain and functional disability since last visit: Better New Complaints since last visit: No Today, pt reports that she has had 50% initial relief from Left L5-S1 and S1 TFESI completed on 11/21/2023, but no significant termination clerk benefit. She has previously had left L4-5 [...] Therapies Attended (Current or Most Recent): Jeremiah [facility] Physical Therapy 04/17/2023 12/11/2023 AG SPINE COMBINATION [...] DATE OF EXAM: Jan 17 2024 1:01PM [facility] 0325 - MRI THORACIC SPINE WO [...] and assume there are 5 lumbar-type vertebrae. Pile Driver: [facility] Transcribe Date/Time: Jan 17 2024 1:14P Dictated [...] from the above interventions Studies: None Functional Presybeterian: Patient reporting she did physical therapy which [...] PhD Pain Management [facility] * Malika Jones LPN - 01/29/2024 [...] patient is not nervous/anxious. documented in this encounterBrecksville [facility]11-[facility]24 NoteHNO ID: [id number] Author: MALIKA JONES LPN Service: ? Author [...] and suicidal ideas. The patient is not nervous/anxious.[facility]11-09-2024 History of Present illness Narrative* Hector Gee RT(R) - 01/17/2024 11:00 AM ESTSummary: MRI Radiology [...] PATIENT PRESENTS WITH AN IMPLANTABLE OR ATTACHED ACCOUNTING CLERK: No RADIOLOGY DEPARTMENT: MR; Exam(s) Completed: Spine: Thoracic spine PERIPHERAL IV DATA: Not applicable SIGNED BY: LAWRENCE Velazquez) January 17, 2024 1:00 PM documented in this encounterBrecksville Va [facility]11-09-2024 NoteHNO ID: [id number] Author: HECTOR GEE RT(R) Service: Radiology Author [...] PATIENT PRESENTS WITH AN IMPLANTABLE OR ATTACHED ACCOUNTING CLERK: No RADIOLOGY DEPARTMENT: MR; Exam(s) Completed: Spine: Thoracic spine PERIPHERAL IV DATA: Not applicable SIGNED BY: RT Marcus(R) January 17, 2024 1:00 PMLegacy [facility] History of Present illness Narrative* Aj Graham APRN.JOVANY - 01/13/2024 2:00 PM EST Images from the original note were not included. [facility] Today's Date: 01/13/2024 Name: Spenser Putnam [...] under fluoroscopic guidance LEFT-SIDEDat S1 and L5-S1 Angle Bender Needed: Epidural - YES Anticoagulant - Hold Needed: N/A (Not currently on Anticoagulants) Anticoagulant - Currently Taking: None Allergies (relevant): None Scheduling - Mobility (Can Patient independently transfer on/off an OR or Procedure table?): YES (May schedule at any location) Scheduling - Additional Info: None Studies: None Functional Presybeterian: Physical Therapy Consultation (Land-Based) Referrals: No additional [...] Therapies Attended (Current or Most Recent): Jeremiah [facility] Physical Therapy 04/17/2023 12/11/2023 AG SPINE COMBINATION [...] and validated on 01/13/2024 by Aj Graham APRN.PLATEMAKER All prescriptions have been APPROPRIATELY filled. No [...] DATE OF EXAM: Mar 27 2023 1:23PM [facility] 0303 - MRI LUMBAR SPINE WO IVCON [...] and assume there are 5 lumbar-type vertebrae. Pile Driver: DARRYL Transcribe Date/Time: Mar 27 2023 1:25P [...] MRI: Thoracic SpineScheduled for this week. Functional Presybeterian: Patient reporting she did physical therapy which [...] decision making from today's date. Aj Graham APRN.PLATEMAKER Pain Management [facility] * Ramiro Anderson MA - 01/13/2024 [...] patient is not nervous/anxious. documented in this encounterBrecksville Va [facility]11-05-2024 NoteHNO ID: [id number] Author: AJ GRAHAM APRN.CNP Service: ? Author Type: Nurse Practitioner Type: Progress Notes Filed: 01/13/2024 15:06 Note Text: [facility] Today's Date: 01/13/2024 Name: Spenser Putnam [...] fluoroscopic guidance LEFT-SIDED at S1 and L5-S1 Angle Bender Needed: Epidural - YES Anticoagulant - Hold Needed: N/A (Not currently on Anticoagulants) Anticoagulant - Currently Taking: None Allergies (relevant): None Scheduling - Mobility (Can Patient independently transfer on/off an OR or Procedure table?): YES (May schedule at any location) Scheduling - Additional Info: None Studies: None Functional Presybeterian: Physical Therapy Consultation (Land-Based) Referrals: No additional [...] Therapies Attended (Current or Most Recent): Jeremiah [facility] Physical Therapy 04/17/2023 12/11/2023 AG SPINE COMBINATION Questionnaire GREENLIGHT Completed Date 04/17/2023 Completed Date 12/11/2023 Comments NIDHI Questionnaire Opiod Risk Tool Completed Date 04/17/2023 Comments 0 No question data found. (All drug screens are appropriate unless indicated otherwise) Notable Events During Course of Treatment: 04/15/2023 - Initial HPI (Obtained by Jackson Sumner, M.D.). DURATION AND ONSET: The pain complaint [...] Pamelor (Nortriptyline), Elavil (Amitriptyl (more content not included)...[facility]11-05-2024 NoteHNO ID: [id number] Author: RAMIRO ANDERSON MA Service: ? Author Type: Production Machine Tender Type: Progress Notes Filed: 01/13/2024 15:06 Note [...] and suicidal ideas. The patient is not nervous/anxious.[facility] 01-12-2024 Telephone encounter Note* Telephone Encounter - Ashley Rios - 01/12/2024 2:50 PM EST 01/11- Scheduled patient with Aj tomorrow in [place] to discuss the new pain she's having in her leg. Ashley Rios [facility]11-04-2024 Miscellaneous Notes* Telephone Encounter - Ashley Ferrer - 01/12/2024 2:50 PM EST 01/11- Scheduled patient with Aj tomorrow in [place] to discuss the new pain she's having in her leg. Ashley Rios * Telephone Encounter - Malika Jones LPN - 01/12/2024 1:24 PM EST Patient left voicemail that her pain meds are not working , difficulty sleeping and now the other leg is hurting . Called patient and she is wanting sooner appt. To discuss new leg pain. documented in this encounterBrecksville Va / [facility]11-04-2024 Telephone encounter Note * Telephone Encounter - Malika Jones LPN - 01/12/2024 1:24 PM EST Patient left voicemail that her pain meds are not working , difficulty sleeping and now the other leg is hurting . Called patient and she is wanting sooner appt. To discuss new leg pain. [facility]10-28-2024 History of Present illness Narrative* Stanton Mesa DO - 01/05/2024 1:00 PM EDT [facility] BEHAVIORAL MEDICINE RESIDENT CLINIC INITIAL PSYCHIATRIC EVALUATION PATIENT: Spenser Putnam MRD: [id number] DATE: January 05, 2024 IDENTIFYING INFORMATION: Spenser [...] [facility] Somatic complaints: back and leg pain PSYCHIATRIC [...] denies Hospitalizations: denies Psychiatrist: denies Agency: NA agency development manager: NA Therapist: denies Self harm: denies Suicide attempts: denies Medication Trials: denies ECT: No SOCIAL HISTORY: Guardian: None Born and raised: [place], [place] Childhood: good, I [place] farm Abuse: denies any form of abuse Education: graduated high school Employment: [place] for a [employer]. Currently retired Financial support: able to support selves Relationships: x61 years Children: 3 females Living Situation: Lives with and daughter Roxy Weapons: denies Legal History: denies Caodaism: Catholicism, streams scientology every Friday because of leg pain SUBSTANCE [...] No suspiciousactivity was identified. 01/05/2024 by Stanton Mesa, DO Patient understands and agrees with the [...] which included preparing to see the patient, aqkd-da-gloo patient care, completing clinical documentation, obtaining and/or reviewing separately obtained history, performing a medically appropriate examination, counseling and educating the pat ient/family/caregiver, independently interpreting results (not separately reported), and communicating results to the patient/family/caregiver. Electronically signed by Stanton Mesa DO PGY-3 Psychiatry and Behavioral Sciences [facility] January 05, 2024 12:58 PM I spoke [...] options and medications and coordinating care. Gladys Godinez MD Adult and Geriatric Psychiatry [facility] , . documented in this encounterBrecksville [facility]10-23-2024 Telephone encounter Note * Telephone Encounter - Monae Mancini, PSS - 12/31/2023 1:22 PM EDT Spoke to patient and advised she was not scheduled for any procedures. Patient wanted to move up her SCS consult with Dr. Roca. I advised she would have to complete her MRI and Psych eval first before she can have a consult with Dr. Roca. Patient stated understanding. Monae Mancini [place] to Dr. Roca, Dr. Juarez [facility] P: [id number] / F: [phone] / [email or web address] [facility]10-23-2024 Miscellaneous Notes* Telephone Encounter - Monae [...] Dr. Roca. Patient stated understanding. Monae Mancini [place] to Dr. Ann Kang [facility] Spine and Pain P: [id number] / F: [phone] / documented in this encounterBrecksville Va / [facility]10-18-2024 Miscellaneous Notes* Telephone Encounter - Cintia [...] 26, 2023 12:12 PM documented in this encounterBrecksville Va / [facility]10-18-2024 Telephone encounter Note * Telephone Encounter [...] Quiles LPN December 26, 2023 12:12 PM [facility]10-11-2024 Telephone encounter Note* Telephone Encounter - [...] seven days of my reply. See the Meraki message reply for my assessment and plan. Time spent reviewing the patient's prior medical records and current request for medical advice, prescribing medications or ordering tests (if applicable), replying to the patient, and documenting the encounter: 8 minutes. Jackson Sumner III, MD, RONNIE [facility]10-11-2024 Miscellaneous Notes* Telephone Encounter - Jackson [...] seven days of my reply. See the Meraki message reply for my assessment and plan. Time spent reviewing the patient's prior medical records and current request for medical advice, prescribing medications or ordering tests (if applicable), replying to the patient, and documenting the encounter: 8 minutes. Jackson Sumner III, MD, RONNIE documented in this encounterBrecksville Va / [facility]10-10-2024 Telephone encounter Note * Telephone Encounter - Marie Fermin MA - 12/18/2023 12:23 PM EDT Pt informed Mraie Fermin MA [facility]10-10-2024 Miscellaneous Notes* Telephone Encounter - Marie [...] daily. Destini Lay PA-C documented in this encounterBrecksville Va / [facility]10-10-2024 Telephone encounter Note * Telephone Encounter - Destini Lay PA-C - 12/18/2023 12:18 PM EDT Let patient know that I forgot to review labs with her yesterday. Repeat sodium is better. We will continue to monitor. Her magnesium is a little low. Recommend start OTC magnesium 250 daily. Destini Lay PA-C [facility]10-09-2024 History of Present illness Narrative* Destini [...] Coronary Artery Disease Maternal Grandmother Hx of [place] Diabetes Daughter Type I Patient Allergies ALLERGIES [...] HIGH-DOSE) Destini Lay PA-C documented in this encounterBrecksville Va / [facility]10-03-2024 Telephone encounter Note * Telephone Encounter - Priscilla Vivar - 12/11/2023 11:26 AM EDT Patient has been scheduled an SCS consult with Dr. Roca on 01/29/24. Aj put in the order for referral to [facility] for eval. Could you submit that? Priscilla Vivar [facility]10-03-2024 Miscellaneous Notes* Telephone Encounter - Priscilla Vivar - 12/11/2023 11:26 AM EDT Patient has been scheduled an SCS consult with Dr. Roca on 01/29/24. Aj put in the order for referral to [facility] for eval. Could you submit that? Priscilla Vivar documented in this encounterBrecksville Va / [facility]10-03-2024 History of Present illness Narrative* Aj Graham APRN.JOVANY - 12/11/2023 10:15 AM EDT Images from the original note were not included. [facility] Today's Date: 12/11/2023 Name: Spenser Putnam [...] under fluoroscopic guidance LEFT-SIDEDat S1 and L5-S1 Angle Bender Needed: Epidural - YES Anticoagulant - Hold Needed: N/A (Not currently on Anticoagulants) Anticoagulant - Currently Taking: None Allergies (relevant): None Scheduling - Mobility (Can Patient independently transfer on/off an OR or Procedure table?): YES (May schedule at any location) Scheduling - Additional Info: None Studies: None Functional Presybeterian: Physical Therapy Consultation (Land-Based) Referrals: No additional [...] Therapies Attended (Current or Most Recent): Jeremiah [facility] Physical Therapy 04/17/2023 12/11/2023 AG SPINE COMBINATION [...] and validated on 12/11/2023 by Aj Graham APRN.PLATEMAKER All prescriptions have been APPROPRIATELY filled. No [...] DATE OF EXAM: Mar 27 2023 1:23PM [facility] 0303 - MRI LUMBAR SPINE WO [...] and assume there are 5 lumbar-type vertebrae. Pile Driver: [facility] Transcribe Date/Time: Mar 27 2023 1:25P Dictated [...] Procedures: none Studies: MRI: Thoracic Spine Functional Presybeterian: Physical Therapy Consultation ([facility]) Referrals: Psych eval for spinal cord stimulator [...] APRN.JOVANY Pain Management [facility] * Ramiro Anderson MA - 12/11/2023 [...] patient is not nervous/anxious. documented in this encounterBrecksville Va [facility]10-03-2024 NoteHNO ID: [id number] Author: AJ GRAHAM APRN.JOVANY Service: ? Author Type: Nurse Practitioner Type: Progress Notes Filed: 12/11/2023 12:52 Note Text: [facility] Today's Date: 12/11/2023 Name: Spenser Putnam : [...] fluoroscopic guidance LEFT-SIDED at S1 and L5-S1 Angle Bender Needed: Epidural - YES Anticoagulant - Hold Needed: N/A (Not currently on Anticoagulants) Anticoagulant - Currently Taking: None Allergies (relevant): None Scheduling - Mobility (Can Patient independently transfer on/off an OR or Procedure table?): YES (May schedule at any location) Scheduling - Additional Info: None Studies: None Functional Presybeterian: Physical Therapy Consultation (Land-Based) Referrals: No additional [...] None Therapies Attended (Current or Most Recent): [place] [facility] Physical Therapy 04/17/2023 12/11/2023 AG SPINE COMBINATION [...] Allergies: ALLERGIES Allergen R (more content not included)...[facility]10-03-2024 NoteHNO ID: [id number] Author: RAMIRO ANDERSON MA Service: ? Author Type: Production Machine Tender Type: Progress Notes Filed: 12/11/2023 12:52 Note [...] and suicidal ideas. The patient is not nervous/anxious.[facility] 12-01-2023 History of Present illness Narrative* Zo Metcalf RN - 12/01/2023 1:20 PM EDT Transitional Care Management (TCM) Follow-Up Note PCP Update / Actionable Items N/A - No specialty updates needed Patient Source: Wzt-zi-Lupllxy (OON) Discharge Outreach Summary: Pt reports she is doing well, no medical questions or concerns. Has repeat urine testing in 2 weeks. Patient discharged from [facility] Discharge date: 11/15/23 Admitted for: Syncope , [...] 01, 2023 1:22 PM documented in this encounterBrecksville Va [facility]09-23-2024 Telephone encounter Note * Telephone Encounter - Destini Lay PA-C - 12/01/2023 11:09 AM EDT Noted. [facility]09-23-2024 Miscellaneous Notes* Telephone Encounter - Destini [...] next appt with me. documented in this encounterBrecksville Va / [facility]ille Hospital09-23-2024 Telephone encounter Note * Telephone Encounter [...] urine in 2 weeks. Jonas Milan LPN [facility]09-23-2024 Telephone encounter Note* Telephone Encounter - [...] Recheck prior to next appt with me. [facility]09-20-2024 History of Present illness Narrative* Destini Lay PA-C - 11/28/2023 10:22 AM EDT Chief Complaint Patient presents with: [facility] F/U TCM intial contact date: 11/17/2023. HPI Spenser Putnam is a 82 year old female who presents here today for Hospital Discharge Follow up.. Patient was admitted to [facility] on 11/12 and discharged on 11/14 [...] Coronary Artery Disease Maternal Grandmother Hx of [place] Diabetes Daughter Type I Patient Allergies ALLERGIES [...] immunization - ICD9: V03.89, ICD10: Z23 - [id number] COVID-19 VACCINE AGE 12+ YR 3. Recurrent [...] MAGNESIUM Destini Lay PA-C documented in this encounterBrecksville Va / [facility]ille Hospital09-19-2024 Telephone encounter Note * Telephone Encounter - Yue Kirkland MA - 11/27/2023 4:22 PM EDT See update from pt's daughter regarding appt tomorrow and pt's medications. Yue Kirkland MA [facility]09-19-2024 Miscellaneous Notes* Telephone Encounter - Yue Kirkland MA - 11/27/2023 4:22 PM EDT See update from pt's daughter regarding appt tomorrow and pt's medications. Yue Kirkland MA documented in this encounterBrecksville Va / [facility]ille [facility]09-16-2024 Telephone encounter Note * Telephone Encounter - Fawad Leong LPN - 11/24/2023 1:53 PM EDT Spoke with patient following up from procedure. Patient states they are doing well, no questions orconcerns at this time. Fawad Leong LPN [place] [address]-16-2024 Miscellaneous Notes* Telephone Encounter - Fawad Leong LPN - 11/24/2023 1:53 PM EDT Spoke with patient following up from procedure. Patient states they are doing well, no questions orconcerns at this time. Fawad Leong LPN documented in this encounterBrecksville Va / [facility]09-13-2024 History of Present illness Narrative* Danii Roca MD, PhD - 11/21/2023 9:30 AM EDT [facility] Date: 11/21/2023 Patient name: Spenser Putnam [...] or double vision) Respiratory: Negative (No Cough, Aocykgrrn-qe-xnwqxu, Dyspnea on exertion, wheezing) Cardiovascular: Negative (No [...] Coronary Artery Disease Maternal Grandmother Hx of [place] Diabetes Daughter Type I Social History Tobacco [...] times (time out, procedure start, procedure end). [place] protocol documentation / Pre-Procedure checklist: Unless stated [...] procedure site (marked), laterality, anticoagulants and allergies [place] protocol documentation / Pre-Procedure Checklist: Consent: Obtained [...] PhD Pain Management [facility] * Marissa Briones LPN - 11/21/2023 [...] The patient is nervous/anxious. documented in this encounterBrecksville Va / [facility]ille [facility]09-13-2024 NoteHNO ID: [id number] Author: DANII ROCA MD, PhD Service: ? Author Type: Physician Type: Progress Notes Filed: 11/21/2023 18:27 Note Text: [facility] Date: 11/21/2023 Patient name: Spenser Putnam [...] or double vision) Respiratory: Negative (No Cough, Jfmmprdkk-ka-wahukz, Dyspnea on exertion, wheezing) Cardiovascular: Negative (No [...] suspected Restless leg syndrom (more content not included)...[facility] 11-21-2023 Instructions* Patient Instructions* Karina Jorgensen LPN - 11/21/2023 9:15 AM EDT PROCEDURE DISCHARGE INSTRUCTIONS 11/21/2023 Spenser Putnam 1940 Physician: Danii Roca MD, [...] emergency care and why. documented in this encounterBrecksville Va / [facility]09-13-2024 Nurse Note* Karina Jorgensen LPN - [...] via wheelchair. Patient left in good condition. [facility]09-13-[facility] Nurse Note* Karina Jorgensen LPN - [...] tablePatient s procedure was performed in an [facility] Procedure room. Pause completed at each [...] Briones LPN - 11/21/2023 8:31 AM EDT Angle Bender's Name: LARRY Are you on a blood [...] to receive one? N documented in this encounterBrecksville Va / [facility]ille Hospital09-13-2024 Nurse Note* Ashutosh Vance LPN - 11/21/2023 8:41 AM EDT Procedure to be performed: L5/S1-S1 Unilateral Left Transforaminal Epidural Steroid Injection Patient was wheeled on stretcher from pre op bay to procedure room and assisted onto the procedure tablePatient s procedure was performed in an [facility] Procedure room. Pause completed at each [...] allergies Procedure Start: 853 Procedure End: 908 [facility]09-13-2024 NoteHNO ID: [id number] Author: MARISSA BRIONES LPN Service: ? Author [...] mood and suicidal ideas. The patient is nervous/anxious.[facility]09-13-20[facility] Nurse Note* Marissa Briones LPN - 11/21/2023 8:31 AM EDT Angle Bender's Name: LARRY Are you on a blood [...] are you scheduled to receive one? N [facility]09-09-2024 History of Present illness Narrative* Zo Metcalf RN - 11/17/2023 1:26 PM EDT Transition Care Management (TCM) Initial Outreach PCP Update / Actionable Items HRTIC TCM Home Visit Referral Source of Stratification: TCM [facility] Hospital Admission Status: Discharged Readmission Risk Score: n/a Patient's zip code: [address] Is zip code within program service area: No Patient meets program referral criteria: No Patient does not qualify for High Risk TCM Home Visit program due to: Readmission Risk Score does not meet criteria Disposition: Patient does not qualify for HRTIC, will provide TCM outreach follow-up for 30-days Patient Source: Ett-nz-Bfmnyhe (OON) Discharge Outreach Summary: Pt reports she is feeling better. Denies any dizziness, lightheadedness. States several tests done - diagnosed with a UTI and rx Keflex. Pt encouraged to bring AVS from [place] to TCM f/u. Patient discharged from [facility] Discharge date: 11/15/23 Admitted for: Syncope , Hypotension Readmission Risk: n/a Value-Based Contract: ACO Contact: Contact made with patient: Yes Hi, my name is Zo Metcalf RN and I am calling from the [facility] on behalf of your Primary Care [...] like to speak with a social work steamfitter to help give you support for any [...] I will send your request to a salesperson yard goods who will contact and assist you with [...] 17, 2023 1:46 PM documented in this encounterBrecksville Va / [facility]09-09-2024 History of Present illness Narrative* Kelle Joyce MA - 11/17/2023 12:58 PM EDT Scan on 11/15/2023 11:53 AM by Provider, External, PASolomonC: Discharge Summary Sent my chart message to patient to help schedule. Patient to follow up in 2 weeks with PCP/team. Kelle Joyce MA documented in this encounterBrecksville Va [facility]09-06-2024 History of Present illness Narrative* Kelle Joyce MA - 11/14/2023 10:45 AM EDT Scan on 11/13/2023 10:26 PM by ProviderKirk PA-C: Consultation - Emergency Medicine Scan on 11/14/2023 1:00 AM by Provider, DOUG Bradley: Consultation - Emergency Medicine [facility] - Syncope episode. Kelle Joyce MA documented in this encounterBrec[facility] Telephone encounter Note * Telephone Encounter - Rosalba Arriaga LPN - 11/13/2023 10:56 AM EDT Called the patient, more info added to the telephone encounter and sent to the Provider. Rosalba Arriaga LPN [facility]09-05-2024 Miscellaneous Notes* Telephone Encounter - Rosalba Arriaga LPN - 11/13/2023 10:56 AM EDT Called the patient, more info added to the telephone encounter and sent to the Provider. Rosalba Arriaga LPN documented in this encounterBrecksville [facility]09-04-[facility] Telephone encounter Note * Telephone Encounter - Jade Torres MA - 11/12/2023 11:35 AM EDT Patient left a voicemail stating that the Lyasaela is making her swell she would like to know what todo? Please advise [facility]09-04-2024 Miscellaneous Notes* Telephone Encounter - Jade Torres MA - 11/12/2023 11:35 AM EDT Patient left a voicemail stating that the Mitchell is making her swell she would like to know what todo? Please advise documented in this encounterBrecksville [facility]09-03-2024 Telephone encounter Note * Telephone Encounter - Kelle Joyce MA - 11/11/2023 9:29 AM EDT Patient notified via phone call and sent my chart with results and instructions. Kelle Joyce MA [facility]09-03-2024 Miscellaneous Notes* Telephone Encounter - Kelle [...] C were all neg. documented in this encounterBrecksville [facility]09-01-2024 Telephone encounter Note * Telephone Encounter [...] A, B and C were all neg. [facility]08-23[facility] History of Present illness Narrative* Sawyer [...] PATIENT PRESENTS WITH AN IMPLANTABLE OR ATTACHED ACCOUNTING CLERK: No RADIOLOGY DEPARTMENT: Bone Density PERIPHERAL IV DATA: Not applicable SIGNED BY: RT Evan(R) October 31, 2023 1:13 PM documented in this encounterBrecksville [facility]08-08-2024 Telephone encounter Note * Telephone Encounter [...] No 9. Does this procedure require a straddle truck driver? Yes If yes, has patient been notified that a straddle truck driver is needed and must be present at [...] dose of the COVID vaccine.) Priscilla Vivar [facility]08-08-2024 Miscellaneous Notes* Telephone Encounter - Priscilla [...] No 9. Does this procedure require a straddle truck driver? Yes If yes, has patient been notified that a straddle truck driver is needed and must be present at [...] COVID vaccine.) Priscilla Vivar documented in this encounterBrecksville [facility]08-08-2024 NoteHNO ID: [id number] Author: ASHUTOSH VANCE LPN Service: ? Author Type: LICENSED NURSE Type: Progress Notes Filed: 10/16/2023 08:33 Note Text: Review of Systems Constitutional: Positive for activity change. Musculoskeletal: Positive for arthralgias, back pain and gait problem. Neurological: Positive for numbness. Psychiatric/Behavioral: Positive for dysphoric mood.[facility] 10-16-2023 History of Present illness Narrative* Ashutosh Vance LPN - 10/16/2023 8:12 AM EDT Review of Systems Constitutional: Positive for activity change. Musculoskeletal: Positive for arthralgias, back pain and gait problem. Neurological: Positive for numbness. Psychiatric/Behavioral: Positive for dysphoric mood. * Jackson Sumner MD - 10/13/2023 6:58 AM EDT Images from the original note were not included. [facility] Today's Date: 10/15/2023 Name: Spenser Putnam : [...] Diagnostic only, NO steroids) left leg Functional Presybeterian: Physical Therapy Consultation (Land-Based) Follow-up: 2 months [...] Therapies Attended (Current or Most Recent): Jeremiah [facility] Physical Therapy 04/17/2023 AG SPINE COMBINATION Questionnaire [...] and assume there are 5 lumbar-type vertebrae. Pile Driver: [facility] Transcribe Date/Time: Mar 27 2023 1:25P Dictated [...] under fluoroscopic guidance LEFT-SIDEDat S1 and L5-S1 Angle Bender Needed: Epidural - YES Anticoagulant - Hold Needed: N/A (Not currently on Anticoagulants) Anticoagulant - Currently Taking: None Allergies (relevant): None Scheduling - Mobility (Can Patient independently transfer on/off an OR or Procedure table?): YES (May schedule at any location) Scheduling - Additional Info: None Studies: None Functional Presybeterian: Physical Therapy Consultation (Land-Based) Referrals: No additional [...] MD [facility] Management [facility] documented in this encounterBrecksville [facility]08-05-2024 NoteHNO ID: [id number] Author: JACKSON SUMNER MD Service: ? Author Type: Physician Type: Progress Notes Filed: 10/16/2023 08:33 Note Text: [facility] Today's Date: 10/15/2023 Name: Spenser Putnam : [...] Diagnostic only, NO steroids) left leg Functional Presybeterian: Physical Therapy Consultation (Land-Based) Follow-up: 2 months [...] Therapies Attended (Current or Most Recent): Jeremiah [facility] Physical Therapy 04/17/2023 AG SPINE COMBINATION Questionnaire [...] 9 Pain Location Leg-Right (more content not included)...[facility]07-23-2024 Telephone encounter Note* Telephone Encounter - Jackson Sumner MD - 09/30/2023 11:47 AM EDT She has renal insufficiency - subacute, NSAIDs contraindicated. She missed her September appointment to assess her response to RFA. Jackson Sumner III, MD, MBA [facility]07-23-2024 Telephone encounter Note* Telephone Encounter - [...] seven days of my reply. See the Meraki message reply for my assessment and plan. Time spent reviewing the patient's prior medical records and current request for medical advice, prescribing medications or ordering tests (if applicable), replying to the patient, and documenting the encounter: 7 minutes. Jackson Sumner III, MD, MBA [facility]07-23-2024 Miscellaneous Notes* Telephone Encounter - Jackson [...] seven days of my reply. See the Meraki message reply for my assessment and plan. Time spent reviewing the patient's prior medical records and current request for medical advice, prescribing medications or ordering tests (if applicable), replying to the patient, and documenting the encounter: 7 minutes. Jackson Sumner III, MD, MBA documented in this encounterBrecksville [facility]07-22-2024 History of Present illness Narrative* Karen [...] PATIENT PRESENTS WITH AN IMPLANTABLE OR ATTACHED ACCOUNTING CLERK: No RADIOLOGY DEPARTMENT: Ultrasound PERIPHERAL IV DATA: Not applicable SIGNED BY: Karen Zapata RDMS September 29, 2023 4:26 PM documented in this encounterBrecksville Va [facility]07-10-2024 Instructions* Patient Instructions* Juan Spann MD [...] review all the medicines you take, even qrel-dpc-jhxypyx medicines. As you get older, the way [...] have certain medical conditions. documented in this encounterBrecksville [facility]07-10-2024 History of Present illness Narrative* Juan [...] Coronary Artery Disease Maternal Grandmother Hx of [place] Diabetes Daughter Type I Patient Allergies ALLERGIES [...] Vaccine(3 of 3) due on 11/09/2020 Covid-19 Vaccine( - 2022- season) due on 04/07/2023 Influenza Vaccine(1) due [...] Lymph 1.00 - 4.00 k/uL 2.19 2.17 [place]% % 9.2 8.9 Abs [place] <0.87 k/uL 0.79 0.62 Eosin% % 1.6 [...] BMI 26.70 kg/(m^2) - Patient was counseled xivh-wq-wcor by myself (the billing provider) for the [...] which included preparing to see the patient, qtbq-ig-vzkj patient care, completing clinical documentation, performing a medically appropriate examination, counseling and educating the patient/family/caregiver and ordering medications, tests, or procedures. Juan Spann MD Behavioral Health Screening PHQ-2 Score: 0 (Lower risk for depression) Recommendation: no further intervention at this time documented in this encounterBrecksville [facility]06-10-2024 Telephone encounter Note * Telephone Encounter - Belinda Douglas OCCA - [...] BRIAN Burnett August 18, 2023 9:03 AM [facility]06-10-2024 Miscellaneous Notes* Telephone Encounter - Belinda [...] 18, 2023 9:03 AM documented in this encounterBrecksville Va / [facility]06-03-2024 History of Present illness Narrative* London Frye, JOSEFINA - 08/11/2023 1:47 PM EDT Episode Visit [...] 1408 London Frye PT documented in this encounterBrecksville Va / [facility]05-29-2024 Nurse Note* Fawad Leong LPN - [...] ambulatory method. Patient left in good condition. [facility]05-29-[facility] Nurse Note* Fawad Leong LPN - [...] tablePatient s procedure was performed in an [facility] Procedure room. Pause completed at each [...] Vance LPN - 08/06/2023 2:04 PM EDT Angle Bender's Name: LARRY Are you on a blood [...] to receive one? NO documented in this encounterBrecksville Va / [facility]05-29-2024 History of Present illness Narrative* Jackson Sumner MD - 08/06/2023 2:30 PM EDT [facility] Date: 08/06/2023 Patient name: Spenser Putnam [...] or double vision) Respiratory: Negative (No Cough, Scqkcvden-mk-kxfcsg, Dyspnea on exertion, wheezing) Cardiovascular: Negative (No [...] Coronary Artery Disease Maternal Grandmother Hx of [place] Diabetes Daughter Type I Social History Tobacco [...] appropriate Assessment and Plan: As noted above [place] protocol documentation / Pre-Procedure Checklist: Consent: Obtained [...] instructions was offered to the patient. Jackson Sumner MD RONNIE Pain Management [facility] * Ashutosh Vance LPN - 08/06/2023 [...] patient is not nervous/anxious. documented in this encounterBrecksville Va / [facility]05-29-2024 NoteHNO ID: [id number] Author: JACKSON SUMNER MD Service: ? Author Type: Physician Type: Progress Notes Filed: 08/06/2023 15:05 Note Text: [facility] Date: 08/06/2023 Patient name: Spenser Putnam [...] or double vision) Respiratory: Negative (No Cough, Igcvibbgx-eo-ucubxs, Dyspnea on exertion, wheezing) Cardiovascular: Negative (No [...] Coronary Artery Disease Maternal Grandmother Hx of [place] Diabetes Daughter Type I Social History Tobacco Use Smoking status: Never Smokeless tobacco: Never Vaping Use Vaping Use: Never used Substance Use Topics Alcohol use: Yes Alcohol/week: 3.9 standard drinks of alcohol Types: 3 Mixed Drinks per week Comment: 3-4/week Drug use: No Current Outpatient Medications on File Prior to Visit Medication Sig nortriptyline (PAMELOR) 75 mg capsule Ta (more content not included)...[facility]05-29-[facility] Nurse Note* Meg Chaudhary LPN - 08/06/2023 2:29 PM EDT Procedure to be performed: LEFT GENICULAR RADIOFREQUENCY ABLATION Patient was wheeled on stretcher from pre op bay to procedure room and assisted onto the procedure tablePatient s procedure was performed in an [facility] Procedure room. Pause completed at each [...] allergies Procedure Start: 1433 Procedure End: 144 [facility]05-29-[facility] Instructions* Patient Instructions* Fawad Leong LPN - 08/06/2023 2:20 PM EDT PROCEDURE DISCHARGE INSTRUCTIONS 08/06/2023 Spenser Putnam 1940 Physician: Jackson Sumner MD Procedure: Facet [...] emergency care and why. documented in this encounterBrecksville [facility]05-29-2024 NoteHNO ID: [id number] Author: ASHUTOSH VANCE LPN Service: ? Author [...] and suicidal ideas. The patient is not nervous/anxious.[facility] 08-06-2023 Nurse Note* Ashutosh Vance LPN - 08/06/2023 2:04 PM EDT Angle Bender's Name: LARRY Are you on a blood [...] are you scheduled to receive one? NO [facility]05-17-2024 History of Present illness Narrative* London [...] of Care: created on 07/25/23 through 08/22/23 [place] in home exercise program. Patient will decrease pain rating by 2 points to meet minimal clinical important difference for numeric pain rating scale. Perform sitting without pain. Increase ROM of LB to WNL for return to PLOF Planned Interventions, Frequency, and Duration: Current Frequency: 1x/week Duration: 4 weeks Total Number of Visits Planned: 4 Planned Treatment Interventions: Therapeutic exercise (89243), Self-usp management (93715), Patient/Family/Caregiver Education, Body Mechanics Training, General Conditioning [...] : 1500 Session Stop Time : 1541 Lnodon Frye PT documented in this encounterBrecksville [facility]05-17-2024 Telephone encounter Note * Telephone Encounter [...] No 9. Does this procedure require a straddle truck driver? Yes If yes, has patient been notified that a straddle truck driver is needed and must be present at [...] their 2nd dose of the COVID vaccine.) [facility]05-17-2024 Miscellaneous Notes* Telephone Encounter - Beronica [...] No 9. Does this procedure require a straddle truck driver? Yes If yes, has patient been notified that a straddle truck driver is needed and must be present at [...] of the COVID vaccine.) documented in this encounterBrecksville Va [facility]05-15-2024 Instructions* Patient Instructions* Aj Graham APRN.CNP - 07/23/2023 8:08 AM EDT Ice and heat as tolerated Activity as tolerated documented in this encounterBrecksville Va / [facility]05-15-2024 History of Present illness Narrative* Aj Graham APRN.CNP - 07/23/2023 7:45 AM EDT Images from the original note were not included. VIRTUAL VISIT PROGRESS NOTE This is a virtual visit using Open Mileom Video Visit. It required patient- provider interaction for the medical decision making as documented below. I have communicated my name and active licensure. The patient's identity and physical location wereverified at the time of this visit. Either the patient or their legal sales support representative has been informed of the risks and benefits of -- and alternatives to -- treatment through a remote evaluation andconsents to proceed with the evaluation remotely. [facility] Today's Date: 07/23/2023 Name: Spenser Putnam [...] and validated on 07/23/2023 by Aj Graham APRN.PLATEMAKER All prescriptions have been APPROPRIATELY filled. No [...] and assume there are 5 lumbar-type vertebrae. Pile Driver: [facility] Transcribe Date/Time: Mar 27 2023 1:25P Dictated [...] medial) under fluoroscopic guidance LEFT-SIDED at N/A Angle Bender Needed: Radiofrequency Ablation - YES Anticoagulant - Hold Needed: NO HOLD REQUIRED FOR THIS PROCEDURE Anticoagulant - Currently Taking: None Allergies (relevant): None Scheduling - Mobility (Can Patient independently transfer on/off an OR or Procedure table?): YES (May schedule at any location) Scheduling - Additional Info: None left leg Studies: None Functional Presybeterian: NONE Referrals: No additional considerations at present Follow-up: 3 weeks after RFA Depending on response to the above plan, consider: [place], [place] Compliance and Clinic Policies Reviewed and/or Discussed [...] APRN.CNP [facility] documented in this encounterBrecksville [facility]05-15-2024 NoteHNO ID: [id number] Author: AJ GRAHAM APRN.CNP Service: ? Author Type: Nurse Practitioner Type: Progress Notes Filed: 07/23/2023 08:09 Note Text: VIRTUAL VISIT PROGRESS NOTE This is a virtual visit using Open Mileom Video Visit. It required patient-provider interaction for the medical decision making as documented below. I have communicated my name and active licensure. The patient's identity and physical location were verified at the time of this visit. Either the patient or their legal sales support representative has been informed of the risks and benefits of -- and alternatives to -- treatment through a remote evaluation and consents to proceed with the evaluation remotely. [facility] Today's Date: 07/23/2023 Name: Spenser Putnam : [...] Tongue/ throat swelled Phenergan (more content not included)...[facility]05-10-2024 Telephone encounter Note* Telephone Encounter - Meg Chaudhary LPN - 07/18/2023 9:45 AM EDT Spoke with patient following up from procedure. Patient states they are doing well, no questions orconcerns at this time. Meg Chaudhary LPN [facility]05-10-2024 Miscellaneous Notes* Telephone Encounter - Meg Chaudhary LPN - 07/18/2023 9:45 AM EDT Spoke with patient following up from procedure. Patient states they are doing well, no questions orconcerns at this time. Meg Chaduhary LPN documented in this encounterBrecksville Va [facility]05-09-20[facility] Nurse Note* Rosalba Arriaga LPN - [...] ambulatory method. Patient left in good condition. [facility]05-09-2024 Nurse Note* Rosalba Arriaga LPN - [...] tablePatient s procedure was performed in an [facility] Procedure room. Pause completed at each [...] Briones LPN - 07/17/2023 8:57 AM EDT Angle Bender's Name: LARRY Are you on a blood [...] to receive one? N documented in this encounterBrecksville Va [facility]05-09-2024 History of Present illness Narrative* Danii Roca MD - 07/17/2023 9:10 AM EDT [facility] Date: 07/17/2023 Patient name: Spenser Putnam [...] or double vision) Respiratory: Negative (No Cough, Evrgtlvbn-ap-ftclfw, Dyspnea on exertion, wheezing) Cardiovascular: Negative (No [...] Coronary Artery Disease Maternal Grandmother Hx of [place] Diabetes Daughter Type I Social History Tobacco [...] times (time out, procedure start, procedure end). [place] protocol documentation / Pre-Procedure checklist: Unless stated [...] procedure site (marked), laterality, anticoagulants and allergies [place] protocol documentation / Pre-Procedure Checklist: Consent: Obtained [...] PhD Pain Management [facility] * Marissa Briones LPN - 07/17/2023 [...] The patient is nervous/anxious. documented in this encounterBrecksville Va / [facility]05-09-2024 NoteHNO ID: [id number] Author: DANII ROCA MD Service: ? Author Type: Physician Type: Progress Notes Filed: 07/17/2023 16:16 Note Text: [facility] Date: 07/17/2023 Patient name: Spenser Putnam [...] or double vision) Respiratory: Negative (No Cough, Mlaausnrf-dx-mopoee, Dyspnea on exertion, wheezing) Cardiovascular: Negative (No [...] COLONOSCOPY, GI 05/02/2000 FH (more content not included)...[facility]05-09-20[facility] Nurse Note* Ashutosh Vance LPN - 07/17/2023 9:07 AM EDT Procedure to be performed: LEFT Genicular Nerve Block Patient was wheeled on stretcher from pre op bay to procedure room and assisted onto the procedure tablePatient s procedure was performed in an [facility] Procedure room. Pause completed at each [...] allergies Procedure Start: 928 Procedure End: 936 [facility]05-09-2024 Instructions* Patient Instructions* Rosalba Arriaga LPN - 07/17/2023 9:06 AM EDT PROCEDURE DISCHARGE INSTRUCTIONS 07/17/2023 Spenser Fungamy 1940 Physician: Danii Roca MD Procedure: Selective [...] emergency care and why. documented in this encounterBrecksville Va / [facility]05-09-2024 NoteHNO ID: [id number] Author: MARISSA BRIONES LPN Service: ? Author [...] mood and suicidal ideas. The patient is nervous/anxious.[facility]05-09-2024 Nurse Note* Marissa Briones LPN - 07/17/2023 8:57 AM EDT Angle Bender's Name: LARRY Are you on a blood [...] are you scheduled to receive one? N [facility]04-26-2024 Telephone encounter Note* Telephone Encounter - Virgie Jernigan LPN - 07/04/2023 10:52 AM EDT Patient notified and voiced her understanding. [facility]04-26-2024 Miscellaneous Notes* Telephone Encounter - Virgie [...] her visit in September.. documented in this encounterBrecksville Va / [facility]04-26-2024 Telephone encounter Note * Telephone Encounter [...] recheck prior to her visit in September.. [facility]04-25-2024 Telephone encounter Note* Telephone Encounter - Belinda Douglas OCCA - 07/03/2023 9:36 AM EDT Patient informed of below. BRIAN Burnett [facility]04-25-2024 Miscellaneous Notes* Telephone Encounter - Belinda [...] for repeat lab draw. documented in this encounterBrecksville Va / [facility]04-25-2024 Telephone encounter Note * Telephone Encounter - Destini Lay PA-C - 07/03/2023 9:02 AM EDT Not yet [facility]04-25-2024 Telephone encounter Note* Telephone Encounter - Minnie Wilburn LPN - 07/03/2023 8:50 AM EDT Pt notified of results, she will hydrate & come in today for the lab test. Pt states she takes potassium 20mg & calcium daily, is she to hold those at this time? Minnie Wilburn LPN [facility]04-25-2024 Telephone encounter Note* Telephone Encounter - [...] back in today for repeat lab draw. [facility]04-22-2024 Telephone encounter Note* Telephone Encounter - [...] 09/17/2023 Please advise. Thank you. BRIAN Burnett. [facility]04-22-2024 Miscellaneous Notes* Telephone Encounter - Belinda [...] Thank you. BRIAN Burnett. documented in this encounterBrecksville Va [facility]04-18-2024 Miscellaneous Notes* Telephone Encounter - Priscilla [...] No 9. Does this procedure require a straddle truck driver? Yes If yes, has patient been notified that a straddle truck driver is needed and must be present at [...] COVID vaccine.) Priscilla Vivar documented in this encounterBrecksville Va / [facility]04-18-[facility] History of Present illness Narrative* Aj Graham APRN.PLATEMAKER - 06/26/2023 3:00 PM EDT Images from the original note were not included. [facility] Today's Date: 06/26/2023 Name: Spenser Putnam [...] and validated on 06/26/2023 by Aj Graham APRN.PLATEMAKER All prescriptions have been APPROPRIATELY filled. No [...] DATE OF EXAM: Mar 27 2023 1:23PM [facility] 0303 - MRI LUMBAR SPINE WO IVCON [...] and assume there are 5 lumbar-type vertebrae. [facility] Transcribe Date/Time: Mar 27 2023 1:25P Dictated [...] NO steroids) left leg Studies: None Functional Presybeterian: Physical Therapy Consultation (Land-Based) Referrals: No additional [...] APRN.JOVANY Pain Management [facility] * Minnie Dealney MA - 06/26/2023 2:51 PM EDT Review [...] patient is not nervous/anxious. documented in this encounterBrecksville Va / [facility]04-18-2024 NoteHNO ID: [id number] Author: AJ GRAHAM APRN.PLATEMAKER Service: ? Author Type: Nurse Practitioner Type: Progress Notes Filed: 06/26/2023 17:26 Note Text: [facility] Today's Date: 06/26/2023 Name: Spenser Putnam [...] standard drinks of alcoh (more content not included)...[facility]04-18-2024 NoteHNO ID: [id number] Author: MINNIE DELANEY MA Service: ? Author Type: Production Machine Tender Type: Progress Notes Filed: 06/26/2023 17:26 Note [...] and suicidal ideas. The patient is not nervous/anxious.[facility]04-16-2024 Miscellaneous Notes* Telephone Encounter - Kelle [...] worse in the afternoon/evening. Patient had seen Desitni on 06/17/2023 for this. Patients uric acid [...] 6. OTHER SYMPTOMS: Denies Protocols used: Ankle Aipt-AVQAN-FR documented in this encounterBrecksville Va [facility]04-16-2024 Miscellaneous Notes* Telephone Encounter - Derick [...] advise. Rosalba Arriaga LPN documented in this encounterBrecksville Va [facility]04-10-2024 Miscellaneous Notes* Telephone Encounter - Destini [...] time Destini Lay PA-C documented in this encounterBrecksville Va [facility]04-09-2024 History of Present illness Narrative* Destini [...] Coronary Artery Disease Maternal Grandmother Hx of [place] Diabetes Daughter Type I Patient Allergies ALLERGIES [...] symptoms. Destini Lay PA-C documented in this encounterBrecksville [facility]03-20[facility]24 Miscellaneous Notes* Telephone Encounter - Ashutosh Vance LPN - 05/28/2023 2:10 PM EDT Spoke with patient following up from procedure. Patient states they are doing well, no questions orconcerns at this time. Ashutosh Vance LPN documented in this encounterBrecksville [facility]03-18-2024 Nurse Note* Malika Jones LPN - [...] tablePatient s procedure was performed in an [facility] Procedure room. Pause completed at each [...] obtain another set of vitals. Time Out: 08 Confirmed patient name, date of , procedure site, laterality, and allergies Procedure Start: 852 Procedure End: 855 * Maddy Doty LPN - 05/26/2023 8:27 AM EDT Angle Bender's Name: larry Are you on a blood [...] to receive one? n documented in this encounterBrecksville [facility]03-18-2024 NoteHNO ID: [id number] Author: JACKSON SUMNER MD Service: ? Author Type: Physician Type: Progress Notes Filed: 05/26/2023 09:32 Note Text: [facility] Patient name: Spenser Putnam Date of : 1940 Today's date: 05/26/2023 Purpose: Ultrasound-guided injection Senior Biostatistician: Jackson Sumner M.D., M.B.A Diagnosis: (M17.0) Primary [...] or double vision) Respiratory: Negative (No Cough, Botcdxrmt-gl-srsotx, Dyspnea on exertion, wheezing) Cardiovascular: Negative (No [...] Coronary Artery Disease Maternal Grandmother Hx of [place] Diabetes Daughter Type I Social History Tobacco [...] by mouth once d (more content not included)...[facility]03-18-2024 History of Present illness Narrative* Jackson Sumner MD - 05/26/2023 8:44 AM EDT [facility] Patient name: Spenser Putnam Date of : 1940 Today's date: 05/26/2023 Purpose: Ultrasound-guided injection Senior Biostatistician: Jackson Sumner M.D., M.B.A Diagnosis: (M17.0) Primary [...] or double vision) Respiratory: Negative (No Cough, Qytkljawv-lc-cfezqt, Dyspnea on exertion, wheezing) Cardiovascular: Negative (No [...] Coronary Artery Disease Maternal Grandmother Hx of [place] Diabetes Daughter Type I Social History Tobacco [...] appropriate Assessment and Plan: As noted above [place] protocol documentation / Pre-Procedure Checklist: Consent: Obtained [...] RONNIE Pain [facility] * Maddy Doty LPN - 05/26/2023 [...] patient is not nervous/anxious. documented in this encounterBrecksville [facility]03-18-2024 Instructions* Patient Instructions* Malika Jones LPN - 05/26/2023 8:38 AM EDT PROCEDURE DISCHARGE INSTRUCTIONS 05/26/2023 Spenser Putnam 1940 Physician: Jackson Sumner MD Procedure: LEFT [...] emergency care and why. documented in this encounterBrecksville [facility]03-18-2024 NoteHNO ID: [id number] Author: MADDY ODTY LPN Service: ? Author Type: LICENSED NURSE [...] and suicidal ideas. The patient is not nervous/anxious.[facility]03-11-2024 Miscellaneous Notes* Telephone Encounter - Kelle [...] 09/2023 Last refill: 10/2022 documented in this encounterBrecksville [facility]03-04-2024 Miscellaneous Notes* Addendum Note - Jackson [...] Please advise. Nya Doty documented in this encounterBrecksville Va [facility]03-01-2024 Miscellaneous Notes* Telephone Encounter - Dandy [...] you. Dandy Chery LPN. documented in this encounterBrecksville Va [facility]02-23-2024 Miscellaneous Notes* Telephone Encounter - Liudmila Ta MA - 05/02/2023 3:46 PM EST Spoke with patient following up from procedure. Patient states they are doing well, no questions orconcerns at this time. Liudmila Ta MA documented in this encounterBrecksville [facility]02-22-2024 Miscellaneous Notes* Telephone Encounter - Juan [...] you. Mariano Adan Ma. documented in this encounterBrecksville Va [facility]02-21-2024 Instructions* Patient Instructions* Maddy Doty LPN - [...] emergency care and why. documented in this encounterBrecksville Va [facility]02-21-2024 History of Present illness Narrative* Maddy [...] 3:05 PM EST [facility] Date: 04/30/2023 Patient name: Spenser Putnam [...] or double vision) Respiratory: Negative (No Cough, Vpmkghhat-sj-qhjars, Dyspnea on exertion, wheezing) Cardiovascular: Negative (No [...] 09/15/2017 CT neck09/2017 7 mm nodule, US .2019 multiple small nodules repeat 09/2019 Non morbid [...] Coronary Artery Disease Maternal Grandmother Hx of [place] Diabetes Daughter Type I Social History Tobacco [...] appropriate Assessment and Plan: As noted above [place] protocol documentation / Pre-Procedure Checklist: Consent: Obtained [...] instructions was offered to the patient. Jackson Sumner MD, MBA [facility] documented in this encounterBrecksville Va [facility]02-21-2024 Nurse Note* Meg Chaudhary LPN - 04/30/2023 3:12 PM EST Procedure to be performed: L4/5 & [id number] Left Transforaminal Epidural Steroid Injection Patient was wheeled on stretcher from pre op bay to procedure room and assisted onto the procedure tablePatient s procedure was performed in an [facility] Procedure room. Pause completed at each [...] Vance LPN - 04/30/2023 3:06 PM EST Angle Bender's Name: LARRY Are you on a blood [...] to receive one? NO documented in this encounterBrecksville Va / [facility]02-08-2024 History of Present illness Narrative* Alanna [...] PATIENT PRESENTS WITH AN IMPLANTABLE OR ATTACHED ACCOUNTING CLERK: No RADIOLOGY DEPARTMENT: General X-ray: Exam(s) Completed: Lower Extremity X- Ray(s): Knee, AP / Lat / Tunne / Merchant Bilateral and Wt. Bearing PERIPHERAL IV DATA: Not applicable SIGNED BY: RT Garfield(R) April 17, 2023 2:54 PM documented in this encounterBrecksville Va [facility]02-08-2024 Miscellaneous Notes* Telephone Encounter - Marilu, Beronica - 04/17/2023 2:42 PM EST Procedure(s) being [...] No 9. Does this procedure require a straddle truck driver? Yes If yes, has patient been notified that a straddle truck driver is needed and must be present at [...] COVID vaccine.) Beronica Michel documented in this encounterBrecksville Va [facility]02-08-2024 History of Present illness Narrative* Minnie [...] not included. [facility] Today's Date: 04/15/2023 Name: Spenser Putnam [...] and assume there are 5 lumbar-type vertebrae. Pile Driver: [facility] Transcribe Date/Time: Mar 27 2023 1:25P Dictated [...] Joint Injection (Steroid) under ultrasound guidance LEFT-SIDED Angle Bender Needed: Joint Injection - NO (Exception: SI Joint - YES) Anticoagulants: None Relevant Allergies: None Additional Info: None Epidural Steroid Injection - Transforaminal Approach (TFESI) under fluoroscopic guidance LEFT-SIDEDat S1 and L4-5 Angle Bender Needed: Epidural - YES Anticoagulants: None Relevant Allergies: None Additional Info: None Studies: X-ray: Knee (Bilateral) Functional Presybeterian: NONE Referrals: No additional considerations at present [...] FLOYDA Pain [facility] documented in this encounterBrecksville [facility]02-05-2024 Miscellaneous Notes* Telephone Encounter - Kelle Joyce MA - 04/14/2023 7:45 AM EST [...] 09/2023 Last refill: 10/2022 documented in this encounterBrecksville Va [facility]01-12-2024 History of Present illness Narrative* [place] [...] 21, 2023 1:30 PM documented in this encounterBrecksville Va [facility]12-19-2023 History of Present illness Narrative* Sawyer [...] 25, 2023 11:09 AM documented in this encounterBrecksville Va / [facility]12-11-2023 Miscellaneous Notes* Telephone Encounter - Kelle [...] please call and advise. documented in this encounterBrecksville Va / [facility]12-11-2023 Miscellaneous Notes* Telephone Encounter - Ike Brush MA - 02/17/2023 10:57 AM EST PLEASE SEE NURSE TRIAGE ENCOUNTER 02/14/23. Ike Brush MA documented in this encounterBrecksville Va / [facility]12-04-2023 History of Present illness Narrative* Rl [...] congestion. Rl Corado MD documented in this encounterBrecksville Va / [facility]10-20-2023 History of Present illness Narrative* Lauren Nuñez APRN.PLATEMAKER - 12/27/2022 12:29 PM EDT This note was created using NoteWriter. Subjective Spenser Putnam is a 82 year [...] history is provided by the patient. No language and literature division chair was used. Musculoskeletal Problem This is a [...] Coronary Artery Disease Maternal Grandmother Hx of [place] Diabetes Daughter Type I Social History Tobacco [...] soaks F/U if symptoms persist Lauren Nuñez APRN.PLATEMAKER documented in this encounterBrecksville Va [facility]09-08-2023 Miscellaneous Notes* Telephone Encounter - Jonas [...] notify patient. Miriam Frazier documented in this encounterBrecksville Va / [facility]08-10-2023 Miscellaneous Notes* Telephone Encounter - Cintia [...] you. Cintia Quiles LPN documented in this encounterBrecksville Va / [facility]08-07-2023 Miscellaneous Notes* Telephone Encounter - Juan [...] advise. Nathalie Liang MA documented in this encounterBrecksville Va / [facility]08-03-2023 Miscellaneous Notes* Telephone Encounter - Sabina [...] patient. Sabina Dos Santos documented in this encounterBrecksville Va / [facility]07-10-2023 Miscellaneous Notes* Telephone Encounter - Wendi [...] rapid pulse) Protocols used: Blood Pressure - [id number] documented in this encounterBrecksville Va / [facility]05-22-2023 History of Present illness Narrative* Karen [...] PERIPHERAL IV DATA: Not applicable SIGNED BY: Kaern Zapata RDMS July 29, 2022 11:39 AM documented in this encounterBrecksville Va / [facility]05-15-2023 Instructions* Patient Instructions* Juan Spann MD - 07/22/2022 1:41 PM EDT Consider getting the shingrix vaccine for the prevention of shingles from a local pharmacy Also consider getting a Tdap for a tetanus update at the health dept. documented in this encounterBrecksville Va / [facility]05-15-2023 History of Present illness Narrative* Juan [...] Coronary Artery Disease Maternal Grandmother Hx of [place] Diabetes Daughter Type I SOCIAL HISTORY: SOCIAL [...] List of current specialists seen: Back specialist- [facility] Derm- Dr. macias End of Live Planning discussed including patients advanced directive wishes: Yes I am willing to follow [place] advanced directives. PHQ-2 / Depression screen - [...] Coronary Artery Disease Maternal Grandmother Hx of [place] Diabetes Daughter Type I Patient Allergies ALLERGIES [...] Lymph 1.00 - 4.00 k/uL 2.99 2.19 [place]% % 9.2 9.2 Abs [place] <0.87 k/uL 0.79 0.79 Eosin% % 0.9 [...] Negative Ketones, Urine Trace, Negative Negative Specific [place], Ur 1.005 - 1.030 1.010 Hemoglobin/Blood,Ur Negative, [...] which included preparing to see the patient, xmum-st-rwjw patient care, completing clinical documentation, performing a medically appropriate examination, counseling and educating the patient/family/caregiver and ordering medications, tests, or procedures. Juan Spann MD documented in this encounterBrecksville Va [facility]05-08-2023 History of Present illness Narrative* Mariama Joyce APRN.[facility] - 07/15/2022 3:10 PM EDT CC: Patient [...] Coronary Artery Disease Maternal Grandmother Hx of [place] Diabetes Daughter Type I Social History Tobacco [...] plan. Mariama Joyce APRN.JOVANY documented in this encounterBrecksville Va / [facility]05-01-2023 Miscellaneous Notes* Telephone Encounter - Roxane [...] 07/08/22 Roxane Guerrier MA documented in this encounterBrecksville Va / [facility]03-16-2023 Miscellaneous Notes* Telephone Encounter - Livia Nuno LPN - 05/23/2022 12:36 PM EDT Patient notified of results, verbalizes understanding of instructions. Livia Nuno LPN * Telephone Encounter - Destini Lay PA-C - 05/23/2022 12:19 PM EDT Let patient know her repeat thyroid levels are better. We will cont to monitor. Destini Lay PA-C documented in this encounterBrecksville Va [facility]03-13-2023 Miscellaneous Notes* Telephone Encounter - Tova Diaz Ma - 05/20/2022 9:42 AM EDT Rx refilled 05/18/22 to [facility]. Pt notified via [employer] to check with pharmacy. Tova Diaz Ma documented in this encounterBrecksville Va [facility]03-11-2023 Miscellaneous Notes* Telephone Encounter - Juan [...] visit: Tova Diaz Ma documented in this encounterBrecksville Va / [facility]03-09-2023 Miscellaneous Notes* Telephone Encounter - Kelle [...] 06/2022 Last refill: 04/2022 documented in this encounterBrecksville Va / [facility]02-28-2023 Miscellaneous Notes* Telephone Encounter - Bisi Moore Ma - 05/07/2022 11:18 AM EST Patient last visit with PCP 04/19/22 Follow up appointment scheduled 06/12/22 Bisi Mooer Ma documented in this encounterBrecksville Va / [facility]02-13-2023 Miscellaneous Notes* Telephone Encounter - Minnie [...] OV. Destini Lay PA-C documented in this encounterBrecksville Va / [facility]02-10-2023 History of Present illness Narrative* Destini [...] Coronary Artery Disease Maternal Grandmother Hx of [place] Diabetes Daughter Type I Patient Allergies ALLERGIES [...] HYDROXY Destini Lay PA-C documented in this encounterBrecksville Va / [facility]02-07-2023 Miscellaneous Notes* Telephone Encounter - Juan [...] 06/12/22 Tova Diaz Ma documented in this encounterBrecksville Va / [facility]10-28-2022 Miscellaneous Notes* Telephone Encounter - Kelle [...] 06/2022 Last refill: 07/[address] [facility]10-18-2022 Miscellaneous Notes* Telephone Encounter - Janet [...] with patient. She will be scheduled at [facility] on 01/17/2022 under local anesthesia. * [...] patient can be scheduled. documented in this encounterBrecksville Va [facility]09-27-2022 Miscellaneous Notes* Telephone Encounter - Cintia [...] you. Cintia Quiles LPN documented in this encounterBrecksville Va / [facility]09-26-2022 Instructions* Patient Instructions* Destini Lay PA-C - 12/03/2021 1:06 PM EDT You are also due for 2nd dose of shingrix (shingles vaccines). documented in this encounterBrecksville Va / [facility]09-26-2022 History of Present illness Narrative* Destini Lya PA-C - 12/03/2021 12:51 PM EDT Chief [...] Coronary Artery Disease Maternal Grandmother Hx of [place] Diabetes Daughter Type I Patient Allergies ALLERGIES [...] prn. Destini Lay PA-C documented in this encounterBrecksville Va [facility]08-18-2022 Miscellaneous Notes* Telephone Encounter - Kelle Joyce MA - 10/25/2021 9:58 AM EDT Patient notified and voiced understanding. Kelle Joyce MA * Telephone Encounter - Destini Lay PA-C - 10/25/2021 9:07 AM EDT Let patient know that her MRI was stable compared to previous. No acute changes. Destini Lay PA-C documented in this encounterBrecksville Va / [facility]08-17-2022 History of Present illness Narrative* LAWRENCE Campos) - 10/24/2021 11:20 AM EDT Radiology Service [...] IV DATA: Not applicable SIGNED BY: RT Andres(Theresa) October 24, 2021 11:57 AM documented in this encounterBrecksville Va [facility]08-10-2022 Miscellaneous Notes* Telephone Encounter - Sol [...] advise. Sol Eaton LPN documented in this encounterBrecksville Va / [facility]07-19-2022 Miscellaneous Notes* Telephone Encounter - Destini Lay PA-C - 09/25/2021 12:03 PM EDT noted * Telephone Encounter - Rosalba Clement RN - 09/20/2021 9:22 AM EDT Patient calls and wanted provider to know that her nose has cleared up since she had appointment. She is still having problems with vertigo. Her MRI is next week. Rosalba Clement RN documented in this encounterBrecksville Va [facility]06-29-2022 History of Present illness Narrative* Destini [...] shoulder PAST SURGICAL HISTORY OF Right 2017 bunionectvicenta TONSILLECTOMY PRIMARY/SECONDARY <AGE 12 childhood Tonsillectomy Family History FAMILY HISTORY Problem Relation Age of Onset Colon Cancer Mother ~70 Hypertension Mother Thyroid Mother Colon Cancer Father ~70 Hypertension Father Stroke Father Heart Father Hx of CHF Coronary Artery Disease Maternal Grandmother Hx of [place] Diabetes Daughter Type I Patient Allergies ALLERGIES [...] IVCON Destini Lay PA-C documented in this encounterBrecksville Va / [facility]06-20-2022 Miscellaneous Notes* Telephone Encounter - Mariano Adan Ma - 08/27/2021 11:11 AM EDT TRUDY: 04/23/2021 Last refill: 04/24/2021 QTY: 30 Refills: 5 Patient's request for medication is as follows: Pending Prescriptions Disp Refills SPIRONOLACTONE 50 MG TABLET 30 tablet 5 Sig: Take 1 tablet by mouth once daily. ROD: No Please approve the above prescription(s) to electronically send to pharmacy. Mariano Adan Ma documented in this encounterBrecksville Va [facility]05-02-2022 Miscellaneous Notes* Telephone Encounter - Juan [...] of last office visit in primary care: [facility] 04/23/2021 Appointment scheduled 10/22/2021 Last 2 Encounter Wt Readings: Date: Wt: 04/23/2021 73.9 kg (163 lb) 12/22/2020 77.8 kg (171 lb 9.6 oz) Please advise. Thank you. GUSTABO Burnett documented in this encounterBrecksville Va / [facility]04-18-2022 Miscellaneous Notes* Telephone Encounter - Jonas Milan LPN - 06/25/2021 7:28 AM EDT Last refill 10/20/20 Qty: 90 with 1 refill Pt has appt 10/22/21 Jonas Milan LPN documented in this encounterBrecksville Va / [facility]02-07-2022 History of Past illness Narrative* Problem Noted Date Resolved Date S/P lumbar fusion 04/16/2021 05/28/2021 Encounter for screening mammogram for breast can cer 02/21/2016 03/27/2016 Routine gynecological examination 10/13/2014 03/27/2016 Overview: Seeing [facility] Colon cancer screening 10/13/2014 7 Well adult exam 10/13/2014 03/27/2016 Overview: Last done: 02/21/2016 Routine general medical exam ination at a health care facility 08/24/2008 07/29/2011 Overview: 08/25/08 -- establish, from Dr. Ta 11/13/2010, yearly check-up Routine gynecological examination 08/24/2008 07/29/2011 Overview: [facility], [facility] [place] SOLAR LENGINES////DYSCHROMIA OTHER 03/27/2006 03/22/2013 XEROSIS////SEBACEOUS GLAND DIS NEC 03/27/2006 03/22/2013 Family history of malignant neoplasm of gastrointestinal tract 07/02/2005 03/27/2016 Overview: colon ca, both P's documented as of this encounter (statuses as of 06/25/2021) [facility] History of Past illness Narrative* Problem Noted Date Resolved Date S/P lumbar fusion 04/16/2021 05/28/2021 Encounter for screening mammogram for breast can cer 02/21/2016 03/27/2016 Routine gynecological examination 10/13/2014 03/27/2016 Overview: Seeing [facility] Colon cancer screening 10/13/2014 7 Well adult exam 10/13/2014 03/27/2016 Overview: Last done: 02/21/2016 Routine general medical exam ination at a health care facility 08/24/2008 07/29/2011 Overview: 08/25/08 -- establish, from Dr. Ta 11/13/2010, yearly check-up Routine gynecological examination 08/24/2008 07/29/2011 Overview: [facility], [facility] [place] SOLAR LENGINES////DYSCHROMIA OTHER 03/27/2006 03/22/2013 XEROSIS////SEBACEOUS GLAND DIS NEC 03/27/2006 03/22/2013 Family history of malignant neoplasm of gastrointestinal tract 07/02/2005 03/27/2016 Overview: colon ca, both P's documented as of this encounter (statuses as of 07/09/2021) [facility] History of Past illness Narrative* Problem Noted Date Resolved Date S/P lumbar fusion 04/16/2021 05/28/2021 Encounter for screening mammogram for breast can cer 02/21/2016 03/27/2016 Routine gynecological examination 10/13/2014 03/27/2016 Overview: [facility] Colon cancer screening 10/13/2014 7 Well adult exam 10/13/2014 03/27/2016 Overview: Last done: 02/21/2016 Routine general medical exam ination at a health care facility 08/24/2008 07/29/2011 Overview: 08/25/08 -- establish, from Dr. Ta 11/13/2010, yearly check-up Routine gynecological examination 08/24/2008 07/29/2011 Overview: [facility], [facility] [place] SOLAR LENGINES////DYSCHROMIA OTHER 03/27/2006 03/22/2013 XEROSIS////SEBACEOUS GLAND DIS NEC 03/27/2006 03/22/2013 Family history of malignant neoplasm of gastrointestinal tract 07/02/2005 03/27/2016 Overview: colon ca, both P's documented as of this encounter (statuses as of 08/27/2021) [facility] of Past illness Narrative* Problem Noted Date Resolved Date S/P lumbar fusion 04/16/2021 05/28/2021 Encounter for screening mammogram for breast can cer 02/21/2016 03/27/2016 Routine gynecological examination 10/13/2014 03/27/2016 Overview: Seeing [facility] Colon cancer screening 10/13/2014 7 Well adult exam 10/13/2014 03/27/2016 Overview: Last done: 02/21/2016 Routine general medical exam ination at a health care facility 08/24/2008 07/29/2011 Overview: 08/25/08 -- establish, from Dr. Ta 11/13/2010, yearly check-up Routine gynecological examination 08/24/2008 07/29/2011 Overview: [facility], [facility] [place] SOLAR LENGINES////DYSCHROMIA OTHER 03/27/2006 03/22/2013 XEROSIS////SEBACEOUS GLAND DIS NEC 03/27/2006 03/22/2013 Family history of malignant neoplasm of gastrointestinal tract 07/02/2005 03/27/2016 Overview: colon ca, both P's documented as of this encounter (statuses as of 09/05/2021) [facility] of Past illness Narrative* Problem Noted Date Resolved Date S/P lumbar fusion 04/16/2021 05/28/2021 Encounter for screening mammogram for breast can cer 02/21/2016 03/27/2016 Routine gynecological examination 10/13/2014 03/27/2016 Overview: Seeing [facility] Colon cancer screening 10/13/2014 7 Well adult exam 10/13/2014 03/27/2016 Overview: Last done: 02/21/2016 Routine general medical exam ination at a health care facility 08/24/2008 07/29/2011 Overview: 08/25/08 -- establish, from Dr. Ta 11/13/2010, yearly check-up Routine gynecological examination 08/24/2008 07/29/2011 Overview: [facility], [facility] [place] SOLAR LENGINES////DYSCHROMIA OTHER 03/27/2006 03/22/2013 XEROSIS////SEBACEOUS GLAND DIS NEC 03/27/2006 03/22/2013 Family history of malignant neoplasm of gastrointestinal tract 07/02/2005 03/27/2016 Overview: colon ca, both P's documented as of this encounter (statuses as of 09/25/2021) [facility] of Past illness Narrative* Problem Noted Date Resolved Date S/P lumbar fusion 04/16/2021 05/28/2021 Encounter for screening mammogram for breast can cer 02/21/2016 03/27/2016 Routine gynecological examination 10/13/2014 03/27/2016 Overview: [facility] Colon cancer screening 10/13/2014 7 Well adult exam 10/13/2014 03/27/2016 Overview: Last done: 02/21/2016 Routine general medical exam ination at a health care facility 08/24/2008 07/29/2011 Overview: 08/25/08 -- establish, from Dr. Ta 11/13/2010, yearly check-up Routine gynecological examination 08/24/2008 07/29/2011 Overview: [facility] [place] SOLAR LENGINES////DYSCHROMIA OTHER 03/27/2006 03/22/2013 XEROSIS////SEBACEOUS GLAND DIS NEC 03/27/2006 03/22/2013 Family history of malignant neoplasm of gastrointestinal tract 07/02/2005 03/27/2016 Overview: colon ca, both P's documented as of this encounter (statuses as of 10/17/2021) [facility] History of Past illness Narrative* Problem Noted Date Resolved Date S/P lumbar fusion 04/16/2021 05/28/2021 Encounter for screening mammogram for breast can cer 02/21/2016 03/27/2016 Routine gynecological examination 10/13/2014 03/27/2016 Overview: Seeing [facility] Colon cancer screening 10/13/2014 7 Well adult exam 10/13/2014 03/27/2016 Overview: Last done: 02/21/2016 Routine general medical exam ination at a health care facility 08/24/2008 07/29/2011 Overview: 08/25/08 -- establish, from Dr. Ta 11/13/2010, yearly check-up Routine gynecological examination 08/24/2008 07/29/2011 Overview: [facility], [facility] [place] SOLAR LENGINES////DYSCHROMIA OTHER 03/27/2006 03/22/2013 XEROSIS////SEBACEOUS GLAND DIS NEC 03/27/2006 03/22/2013 Family history of malignant neoplasm of gastrointestinal tract 07/02/2005 03/27/2016 Overview: colon ca, both P's documented as of this encounter (statuses as of 10/25/2021) [facility]02-07-2022 History of Past illness Narrative* Problem Noted Date Resolved Date S/P lumbar fusion 04/16/2021 05/28/2021 Encounter for screening mammogram for breast can cer 02/21/2016 03/27/2016 Routine gynecological examination 10/13/2014 03/27/2016 Overview: Seeing [facility] Colon cancer screening 10/13/2014 7 Well adult exam 10/13/2014 03/27/2016 Overview: Last done: 02/21/2016 Routine general medical exam ination at a health care facility 08/24/2008 07/29/2011 Overview: 08/25/08 -- establish, from Dr. Ta 11/13/2010, yearly check-up Routine gynecological examination 08/24/2008 07/29/2011 Overview: [facility], [facility] [place] SOLAR LENGINES////DYSCHROMIA OTHER 03/27/2006 03/22/2013 XEROSIS////SEBACEOUS GLAND DIS NEC 03/27/2006 03/22/2013 Family history of malignant neoplasm of gastrointestinal tract 07/02/2005 03/27/2016 Overview: colon ca, both P's documented as of this encounter (statuses as of 10/25/2021) [facility]02-07-2022 History of Past illness Narrative* Problem Noted Date Resolved Date S/P lumbar fusion 04/16/2021 05/28/2021 Encounter for screening mammogram for breast can cer 02/21/2016 03/27/2016 Routine gynecological examination 10/13/2014 03/27/2016 Overview: [facility] Colon cancer screening 10/13/2014 7 Well adult exam 10/13/2014 03/27/2016 Overview: Last done: 02/21/2016 Routine general medical exam ination at a health care facility 08/24/2008 07/29/2011 Overview: 08/25/08 -- establish, from Dr. Ta 11/13/2010, yearly check-up Routine gynecological examination 08/24/2008 07/29/2011 Overview: [facility], [facility] [place] SOLAR LENGINES////DYSCHROMIA OTHER 03/27/2006 03/22/2013 XEROSIS////SEBACEOUS GLAND DIS NEC 03/27/2006 03/22/2013 Family history of malignant neoplasm of gastrointestinal tract 07/02/2005 03/27/2016 Overview: colon ca, both P's documented as of this encounter (statuses as of 12/03/2021) [facility]-07[facility]2022 History of Past illness Narrative* Problem Noted Date Resolved Date S/P lumbar fusion 04/16/2021 05/28/2021 Encounter for screening mammogram for breast can cer 02/21/2016 03/27/2016 Routine gynecological examination 10/13/2014 03/27/2016 Overview: Seeing [facility] Colon cancer screening 10/13/2014 7 Well adult exam 10/13/2014 03/27/2016 Overview: Last done: 02/21/2016 Routine general medical exam ination at a health care facility 08/24/2008 07/29/2011 Overview: 08/25/08 -- establish, from Dr. Ta 11/13/2010, yearly check-up Routine gynecological examination 08/24/2008 07/29/2011 Overview: [facility], [facility] [place] SOLAR LENGINES////DYSCHROMIA OTHER 03/27/2006 03/22/2013 XEROSIS////SEBACEOUS GLAND DIS NEC 03/27/2006 03/22/2013 Family history of malignant neoplasm of gastrointestinal tract 07/02/2005 03/27/2016 Overview: colon ca, both P's documented as of this encounter (statuses as of 12/04/2021) [facility]07[facility]2022 History of Past illness Narrative* Problem Noted Date Resolved Date S/P lumbar fusion 04/16/2021 05/28/2021 Encounter for screening mammogram for breast can cer 02/21/2016 03/27/2016 Routine gynecological examination 10/13/2014 03/27/2016 Overview: Seeing [facility] Colon cancer screening 10/13/2014 7 Well adult exam 10/13/2014 03/27/2016 Overview: Last done: 02/21/2016 Routine general medical exam ination at a health care facility 08/24/2008 07/29/2011 Overview: 08/25/08 -- establish, from Dr. Ta 11/13/2010, yearly check-up Routine gynecological examination 08/24/2008 07/29/2011 Overview: [facility], [facility] [place] SOLAR LENGINES////DYSCHROMIA OTHER 03/27/2006 03/22/2013 XEROSIS////SEBACEOUS GLAND DIS NEC 03/27/2006 03/22/2013 Family history of malignant neoplasm of gastrointestinal tract 07/02/2005 03/27/2016 Overview: colon ca, both P's documented as of this encounter (statuses as of 12/25/2021) [facility]20[facility] History of Past illness Narrative* Problem Noted Date Resolved Date S/P lumbar fusion 04/16/2021 05/28/2021 Encounter for screening mammogram for breast can cer 02/21/2016 03/27/2016 Routine gynecological examination 10/13/2014 03/27/2016 Overview: [facility] Colon cancer screening 10/13/2014 7 Well adult exam 10/13/2014 03/27/2016 Overview: Last done: 02/21/2016 Routine general medical exam ination at a health care facility 08/24/2008 07/29/2011 Overview: 08/25/08 -- establish, from Dr. Ta 11/13/2010, yearly check-up Routine gynecological examination 08/24/2008 07/29/2011 Overview: [facility], [facility] [place] SOLAR LENGINES////DYSCHROMIA OTHER 03/27/2006 03/22/2013 XEROSIS////SEBACEOUS GLAND DIS NEC 03/27/2006 03/22/2013 Family history of malignant neoplasm of gastrointestinal tract 07/02/2005 03/27/2016 Overview: colon ca, both P's documented as of this encounter (statuses as of 01/04/2022) [facility]2022 History of Past illness Narrative* Problem Noted Date Resolved Date S/P lumbar fusion 04/16/2021 05/28/2021 Encounter for screening mammogram for breast can cer 02/21/2016 03/27/2016 Routine gynecological examination 10/13/2014 03/27/2016 Overview: Seeing [facility] Colon cancer screening 10/13/2014 7 Well adult exam 10/13/2014 03/27/2016 Overview: Last done: 02/21/2016 Routine general medical exam ination at a health care facility 08/24/2008 07/29/2011 Overview: 08/25/08 -- establish, from Dr. Ta 11/13/2010, yearly check-up Routine gynecological examination 08/24/2008 07/29/2011 Overview: [facility], [facility] [place] SOLAR LENGINES////DYSCHROMIA OTHER 03/27/2006 03/22/2013 XEROSIS////SEBACEOUS GLAND DIS NEC 03/27/2006 03/22/2013 Family history of malignant neoplasm of gastrointestinal tract 07/02/2005 03/27/2016 Overview: colon ca, both P's documented as of this encounter (statuses as of 01/04/2022) [facility]2022 History of Past illness Narrative* Problem Noted Date Resolved Date S/P lumbar fusion 04/16/2021 05/28/2021 Encounter for screening mammogram for breast can cer 02/21/2016 03/27/2016 Routine gynecological examination 10/13/2014 03/27/2016 Overview: Seeing [facility] Colon cancer screening 10/13/2014 7 Well adult exam 10/13/2014 03/27/2016 Overview: Last done: 02/21/2016 Routine general medical exam ination at a health care facility 08/24/2008 07/29/2011 Overview: 08/25/08 -- establish, from Dr. Ta 11/13/2010, yearly check-up Routine gynecological examination 08/24/2008 07/29/2011 Overview: [facility], [facility] [place] SOLAR LENGINES////DYSCHROMIA OTHER 03/27/2006 03/22/2013 XEROSIS////SEBACEOUS GLAND DIS NEC 03/27/2006 03/22/2013 Family history of malignant neoplasm of gastrointestinal tract 07/02/2005 03/27/2016 Overview: colon ca, both P's documented as of this encounter (statuses as of 04/16/2022) [facility] History of Past illness Narrative* Problem Noted Date Resolved Date S/P lumbar fusion 04/16/2021 05/28/2021 Encounter for screening mammogram for breast can cer 02/21/2016 03/27/2016 Routine gynecological examination 10/13/2014 03/27/2016 Overview: [facility] Colon cancer screening 10/13/2014 7 Well adult exam 10/13/2014 03/27/2016 Overview: Last done: 02/21/2016 Routine general medical exam ination at a health care facility 08/24/2008 07/29/2011 Overview: 08/25/08 -- establish, from Dr. Ta 11/13/2010, yearly check-up Routine gynecological examination 08/24/2008 07/29/2011 Overview: [facility], [facility] [place] SOLAR LENGINES////DYSCHROMIA OTHER 03/27/2006 03/22/2013 XEROSIS////SEBACEOUS GLAND DIS NEC 03/27/2006 03/22/2013 Family history of malignant neoplasm of gastrointestinal tract 07/02/2005 03/27/2016 Overview: colon ca, both P's documented as of this encounter (statuses as of 04/19/2022) [facility]20[facility] History of Past illness Narrative* Problem Noted Date Resolved Date S/P lumbar fusion 04/16/2021 05/28/2021 Encounter for screening mammogram for breast can cer 02/21/2016 03/27/2016 Routine gynecological examination 10/13/2014 03/27/2016 Overview: Seeing [facility] Colon cancer screening 10/13/2014 7 Well adult exam 10/13/2014 03/27/2016 Overview: Last done: 02/21/2016 Routine general medical exam ination at a health care facility 08/24/2008 07/29/2011 Overview: 08/25/08 -- establish, from Dr. Ta 11/13/2010, yearly check-up Routine gynecological examination 08/24/2008 07/29/2011 Overview: [facility] [place] SOLAR LENGINES////DYSCHROMIA OTHER 03/27/2006 03/22/2013 XEROSIS////SEBACEOUS GLAND DIS NEC 03/27/2006 03/22/2013 Family history of malignant neoplasm of gastrointestinal tract 07/02/2005 03/27/2016 Overview: colon ca, both P's documented as of this encounter (statuses as of 04/22/2022) [facility] History of Past illness Narrative* Problem Noted Date Resolved Date S/P lumbar fusion 04/16/2021 05/28/2021 Encounter for screening mammogram for breast can cer 02/21/2016 03/27/2016 Routine gynecological examination 10/13/2014 03/27/2016 Overview: Seeing [facility] Colon cancer screening 10/13/2014 7 Well adult exam 10/13/2014 03/27/2016 Overview: Last done: 02/21/2016 Routine general medical exam ination at a health care facility 08/24/2008 07/29/2011 Overview: 08/25/08 -- establish, from Dr. Ta 11/13/2010, yearly check-up Routine gynecological examination 08/24/2008 07/29/2011 Overview: [facility], [facility] [place] SOLAR LENGINES////DYSCHROMIA OTHER 03/27/2006 03/22/2013 XEROSIS////SEBACEOUS GLAND DIS NEC 03/27/2006 03/22/2013 Family history of malignant neoplasm of gastrointestinal tract 07/02/2005 03/27/2016 Overview: colon ca, both P's documented as of this encounter (statuses as of 05/07/2022) [facility] History of Past illness Narrative* Problem Noted Date Resolved Date S/P lumbar fusion 04/16/2021 05/28/2021 Encounter for screening mammogram for breast can cer 02/21/2016 03/27/2016 Routine gynecological examination 10/13/2014 03/27/2016 Overview: [facility] Colon cancer screening 10/13/2014 7 Well adult exam 10/13/2014 03/27/2016 Overview: Last done: 02/21/2016 Routine general medical exam ination at a health care facility 08/24/2008 07/29/2011 Overview: 08/25/08 -- establish, from Dr. Ta 11/13/2010, yearly check-up Routine gynecological examination 08/24/2008 07/29/2011 Overview: [facility], [facility] [place] SOLAR LENGINES////DYSCHROMIA OTHER 03/27/2006 03/22/2013 XEROSIS////SEBACEOUS GLAND DIS NEC 03/27/2006 03/22/2013 Family history of malignant neoplasm of gastrointestinal tract 07/02/2005 03/27/2016 Overview: colon ca, both P's documented as of this encounter (statuses as of 05/17/2022) [facility] History of Past illness Narrative* Problem Noted Date Resolved Date S/P lumbar fusion 04/16/2021 05/28/2021 Encounter for screening mammogram for breast can cer 02/21/2016 03/27/2016 Routine gynecological examination 10/13/2014 03/27/2016 Overview: Seeing [facility] Colon cancer screening 10/13/2014 7 Well adult exam 10/13/2014 03/27/2016 Overview: Last done: 02/21/2016 Routine general medical exam ination at a health care facility 08/24/2008 07/29/2011 Overview: 08/25/08 -- establish, from Dr. Ta 11/13/2010, yearly check-up Routine gynecological examination 08/24/2008 07/29/2011 Overview: [facility] [place] SOLAR LENGINES////DYSCHROMIA OTHER 03/27/2006 03/22/2013 XEROSIS////SEBACEOUS GLAND DIS NEC 03/27/2006 03/22/2013 Family history of malignant neoplasm of gastrointestinal tract 07/02/2005 03/27/2016 Overview: colon ca, both P's documented as of this encounter (statuses as of 05/18/2022) [facility]20[facility] History of Past illness Narrative* Problem Noted Date Resolved Date S/P lumbar fusion 04/16/2021 05/28/2021 Encounter for screening mammogram for breast can cer 02/21/2016 03/27/2016 Routine gynecological examination 10/13/2014 03/27/2016 Overview: Seeing [facility] Colon cancer screening 10/13/2014 7 Well adult exam 10/13/2014 03/27/2016 Overview: Last done: 02/21/2016 Routine general medical exam ination at a health care facility 08/24/2008 07/29/2011 Overview: 08/25/08 -- establish, from Dr. Ta 11/13/2010, yearly check-up Routine gynecological examination 08/24/2008 07/29/2011 Overview: [facility], [facility] [place] SOLAR LENGINES////DYSCHROMIA OTHER 03/27/2006 03/22/2013 XEROSIS////SEBACEOUS GLAND DIS NEC 03/27/2006 03/22/2013 Family history of malignant neoplasm of gastrointestinal tract 07/02/2005 03/27/2016 Overview: colon ca, both P's documented as of this encounter (statuses as of 05/20/2022) [facility] History of Past illness Narrative* Problem Noted Date Resolved Date S/P lumbar fusion 04/16/2021 05/28/2021 Encounter for screening mammogram for breast can cer 02/21/2016 03/27/2016 Routine gynecological examination 10/13/2014 03/27/2016 Overview: [facility] Colon cancer screening 10/13/2014 7 Well adult exam 10/13/2014 03/27/2016 Overview: Last done: 02/21/2016 Routine general medical exam ination at a health care facility 08/24/2008 07/29/2011 Overview: 08/25/08 -- establish, from Dr. Ta 11/13/2010, yearly check-up Routine gynecological examination 08/24/2008 07/29/2011 Overview: [facility], [facility] [place] SOLAR LENGINES////DYSCHROMIA OTHER 03/27/2006 03/22/2013 XEROSIS////SEBACEOUS GLAND DIS NEC 03/27/2006 03/22/2013 Family history of malignant neoplasm of gastrointestinal tract 07/02/2005 03/27/2016 Overview: colon ca, both P's documented as of this encounter (statuses as of 05/23/2022) [facility] History of Past illness Narrative* Problem Noted Date Resolved Date S/P lumbar fusion 04/16/2021 05/28/2021 Encounter for screening mammogram for breast can cer 02/21/2016 03/27/2016 Routine gynecological examination 10/13/2014 03/27/2016 Overview: Seeing [facility] Colon cancer screening 10/13/2014 7 Well adult exam 10/13/2014 03/27/2016 Overview: Last done: 02/21/2016 Routine general medical exam ination at a health care facility 08/24/2008 07/29/2011 Overview: 08/25/08 -- establish, from Dr. Ta 11/13/2010, yearly check-up Routine gynecological examination 08/24/2008 07/29/2011 Overview: [facility] [place] SOLAR LENGINES////DYSCHROMIA OTHER 03/27/2006 03/22/2013 XEROSIS////SEBACEOUS GLAND DIS NEC 03/27/2006 03/22/2013 Family history of malignant neoplasm of gastrointestinal tract 07/02/2005 03/27/2016 Overview: colon ca, both P's documented as of this encounter (statuses as of 07/08/2022) [facility] History of Past illness Narrative* Problem Noted Date Resolved Date S/P lumbar fusion 04/16/2021 05/28/2021 Encounter for screening mammogram for breast can cer 02/21/2016 03/27/2016 Routine gynecological examination 10/13/2014 03/27/2016 Overview: Seeing [facility] Colon cancer screening 10/13/2014 7 Well adult exam 10/13/2014 03/27/2016 Overview: Last done: 02/21/2016 Routine general medical exam ination at a health care facility 08/24/2008 07/29/2011 Overview: 08/25/08 -- establish, from Dr. Ta 11/13/2010, yearly check-up Routine gynecological examination 08/24/2008 07/29/2011 Overview: [facility], [facility] [place] SOLAR LENGINES////DYSCHROMIA OTHER 03/27/2006 03/22/2013 XEROSIS////SEBACEOUS GLAND DIS NEC 03/27/2006 03/22/2013 Family history of malignant neoplasm of gastrointestinal tract 07/02/2005 03/27/2016 Overview: colon ca, both P's documented as of this encounter (statuses as of 07/16/2022) [facility] History of Past illness Narrative* Problem Noted Date Resolved Date S/P lumbar fusion 04/16/2021 05/28/2021 Encounter for screening mammogram for breast can cer 02/21/2016 03/27/2016 Routine gynecological examination 10/13/2014 03/27/2016 Overview: [facility] Colon cancer screening 10/13/2014 7 Well adult exam 10/13/2014 03/27/2016 Overview: Last done: 02/21/2016 Routine general medical exam ination at a health care facility 08/24/2008 07/29/2011 Overview: 08/25/08 -- establish, from Dr. Ta 11/13/2010, yearly check-up Routine gynecological examination 08/24/2008 07/29/2011 Overview: [facility], [facility] [place] SOLAR LENGINES////DYSCHROMIA OTHER 03/27/2006 03/22/2013 XEROSIS////SEBACEOUS GLAND DIS NEC 03/27/2006 03/22/2013 Family history of malignant neoplasm of gastrointestinal tract 07/02/2005 03/27/2016 Overview: colon ca, both P's documented as of this encounter (statuses as of 07/23/2022) [facility] History of Past illness Narrative* Problem Noted Date Diagnosed Date Resolved Date S/P lumbar fusion 04/16/2021 05/28/2021 Encounter for screening mamm ogram for breast cancer 02/21/2016 03/27/2016 Routine gynecological examination 10/13/2014 03/27/2016 Overview: Seeing [facility] Colon cancer screening 10/13/201403/27 Well adult exam 10/13/2014 03/27/2016 Overview: Last done: 02/21/2016 Routine general medical exam ination at a health care facility 08/24/2008 07/29/2011 Overview: 08/25/08 -- establish, from Dr. Ta 11/13/2010, yearly check-up Routine gynecological examination 08/24/2008 07/29/2011 Overview: [facility] [place] SOLAR LENGINES////DYSCHROMIA OTHER 03/27/2006 03/22/2013 XEROSIS////SEBACEOUS GLAND DIS NEC 03/27/2006 03/22/2013 Family history of malignant neoplasm of gastrointestinal tract 07/02/2005 03/27/2016 Overview: colon ca, both P's documented as of this encounter (statuses as of 09/17/2022) [facility] History of Past illness Narrative* Problem Noted Date Diagnosed Date Resolved Date S/P lumbar fusion 04/16/2021 05/28/2021 Encounter for screening mamm ogram for breast cancer 02/21/2016 03/27/2016 Routine gynecological examination 10/13/2014 03/27/2016 Overview: Seeing [facility] Colon cancer screening 10/13/201403/27 Well adult exam 10/13/2014 03/27/2016 Overview: Last done: 02/21/2016 Routine general medical exam ination at a health care facility 08/24/2008 07/29/2011 Overview: 08/25/08 -- establish, from Dr. Ta 11/13/2010, yearly check-up Routine gynecological examination 08/24/2008 07/29/2011 Overview: [facility], [facility] [place] SOLAR LENGINES////DYSCHROMIA OTHER 03/27/2006 03/22/2013 XEROSIS////SEBACEOUS GLAND DIS NEC 03/27/2006 03/22/2013 Family history of malignant neoplasm of gastrointestinal tract 07/02/2005 03/27/2016 Overview: colon ca, both P's documented as of this encounter (statuses as of 10/10/2022) [facility] History of Past illness Narrative* Problem Noted Date Diagnosed Date Resolved Date S/P lumbar fusion 04/16/2021 05/28/2021 Encounter for screening mamm ogram for breast cancer 02/21/2016 03/27/2016 Routine gynecological examination 10/13/2014 03/27/2016 Overview: [facility] Colon cancer screening 10/13/201403/27 Well adult exam 10/13/2014 03/27/2016 Overview: Last done: 02/21/2016 Routine general medical exam ination at a health care facility 08/24/2008 07/29/2011 Overview: 08/25/08 -- establish, from Dr. Ta 11/13/2010, yearly check-up Routine gynecological examination 08/24/2008 07/29/2011 Overview: [facility], [facility] [place] SOLAR LENGINES////DYSCHROMIA OTHER 03/27/2006 03/22/2013 XEROSIS////SEBACEOUS GLAND DIS NEC 03/27/2006 03/22/2013 Family history of malignant neoplasm of gastrointestinal tract 07/02/2005 03/27/2016 Overview: colon ca, both P's documented as of this encounter (statuses as of 10/14/2022) [facility] History of Past illness Narrative* Problem Noted Date Diagnosed Date Resolved Date S/P lumbar fusion 04/16/2021 05/28/2021 Encounter for screening mamm ogram for breast cancer 02/21/2016 03/27/2016 Routine gynecological examination 10/13/2014 03/27/2016 Overview: Seeing [facility] Colon cancer screening 10/13/201403/27 Well adult exam 10/13/2014 03/27/2016 Overview: Last done: 02/21/2016 Routine general medical exam ination at a health care facility 08/24/2008 07/29/2011 Overview: 08/25/08 -- establish, from Dr. Ta 11/13/2010, yearly check-up Routine gynecological examination 08/24/2008 07/29/2011 Overview: [facility] [place] SOLAR LENGINES////DYSCHROMIA OTHER 03/27/2006 03/22/2013 XEROSIS////SEBACEOUS GLAND DIS NEC 03/27/2006 03/22/2013 Family history of malignant neoplasm of gastrointestinal tract 07/02/2005 03/27/2016 Overview: colon ca, both P's documented as of this encounter (statuses as of 10/17/2022) [facility] History of Past illness Narrative* Problem Noted Date Diagnosed Date Resolved Date S/P lumbar fusion 04/16/2021 05/28/2021 Encounter for screening mamm ogram for breast cancer 02/21/2016 03/27/2016 Routine gynecological examination 10/13/2014 03/27/2016 Overview: Seeing [facility] Colon cancer screening 10/13/201403/27 Well adult exam 10/13/2014 03/27/2016 Overview: Last done: 02/21/2016 Routine general medical exam ination at a health care facility 08/24/2008 07/29/2011 Overview: 08/25/08 -- establish, from Dr. Ta 11/13/2010, yearly check-up Routine gynecological examination 08/24/2008 07/29/2011 Overview: [facility], [facility] [place] SOLAR LENGINES////DYSCHROMIA OTHER 03/27/2006 03/22/2013 XEROSIS////SEBACEOUS GLAND DIS NEC 03/27/2006 03/22/2013 Family history of malignant neoplasm of gastrointestinal tract 07/02/2005 03/27/2016 Overview: colon ca, both P's documented as of this encounter (statuses as of 11/15/2022) [facility] History of Past illness Narrative* Problem Noted Date Diagnosed Date Resolved Date S/P lumbar fusion 04/16/2021 05/28/2021 Encounter for screening mamm ogram for breast cancer 02/21/2016 03/27/2016 Routine gynecological examination 10/13/2014 03/27/2016 Overview: [facility] Colon cancer screening 10/13/201403/27 Well adult exam 10/13/2014 03/27/2016 Overview: Last done: 02/21/2016 Routine general medical exam ination at a health care facility 08/24/2008 07/29/2011 Overview: 08/25/08 -- establish, from Dr. Ta 11/13/2010, yearly check-up Routine gynecological examination 08/24/2008 07/29/2011 Overview: [facility], [facility] [place] SOLAR LENGINES////DYSCHROMIA OTHER 03/27/2006 03/22/2013 XEROSIS////SEBACEOUS GLAND DIS NEC 03/27/2006 03/22/2013 Family history of malignant neoplasm of gastrointestinal tract 07/02/2005 03/27/2016 Overview: colon ca, both P's documented as of this encounter (statuses as of 2022) [facility] History of Past illness Narrative* Problem Noted Date Diagnosed Date Resolved Date S/P lumbar fusion 04/16/2021 05/28/2021 Encounter for screening mamm ogram for breast cancer 02/21/2016 03/27/2016 Routine gynecological examination 10/13/2014 03/27/2016 Overview: Seeing [facility] Colon cancer screening 10/13/201403/27 Well adult exam 10/13/2014 03/27/2016 Overview: Last done: 02/21/2016 Routine general medical exam ination at a health care facility 08/24/2008 07/29/2011 Overview: 08/25/08 -- establish, from Dr. Ta 11/13/2010, yearly check-up Routine gynecological examination 08/24/2008 07/29/2011 Overview: [facility], [facility] [place] SOLAR LENGINES////DYSCHROMIA OTHER 03/27/2006 03/22/2013 XEROSIS////SEBACEOUS GLAND DIS NEC 03/27/2006 03/22/2013 Family history of malignant neoplasm of gastrointestinal tract 07/02/2005 03/27/2016 Overview: colon ca, both P's documented as of this encounter (statuses as of 12/20/2022) [facility]02-07-2022 History of Past illness Narrative* Problem Noted Date Diagnosed Date Resolved Date S/P lumbar fusion 04/16/2021 05/28/2021 Encounter for screening mamm ogram for breast cancer 02/21/2016 03/27/2016 Routine gynecological examination 10/13/2014 03/27/2016 Overview: Seeing [facility] Colon cancer screening 10/13/201403/27 Well adult exam 10/13/2014 03/27/2016 Overview: Last done: 02/21/2016 Routine general medical exam ination at a health care facility 08/24/2008 07/29/2011 Overview: 08/25/08 -- establish, from Dr. Ta 11/13/2010, yearly check-up Routine gynecological examination 08/24/2008 07/29/2011 Overview: [facility], [facility] [place] SOLAR LENGINES////DYSCHROMIA OTHER 03/27/2006 03/22/2013 XEROSIS////SEBACEOUS GLAND DIS NEC 03/27/2006 03/22/2013 Family history of malignant neoplasm of gastrointestinal tract 07/02/2005 03/27/2016 Overview: colon ca, both P's documented as of this encounter (statuses as of 12/27/2022) [facility]02-07-2022 History of Past illness Narrative* Problem Noted Date Diagnosed Date Resolved Date S/P lumbar fusion 04/16/2021 05/28/2021 Encounter for screening mamm ogram for breast cancer 02/21/2016 03/27/2016 Routine gynecological examination 10/13/2014 03/27/2016 Overview: [facility] Colon cancer screening 10/13/201403/27 Well adult exam 10/13/2014 03/27/2016 Overview: Last done: 02/21/2016 Routine general medical exam ination at a health care facility 08/24/2008 07/29/2011 Overview: 08/25/08 -- establish, from Dr. Ta 11/13/2010, yearly check-up Routine gynecological examination 08/24/2008 07/29/2011 Overview: [facility], [facility] [place] SOLAR LENGINES////DYSCHROMIA OTHER 03/27/2006 03/22/2013 XEROSIS////SEBACEOUS GLAND DIS NEC 03/27/2006 03/22/2013 Family history of malignant neoplasm of gastrointestinal tract 07/02/2005 03/27/2016 Overview: colon ca, both P's documented as of this encounter (statuses as of 01/12/2023) [facility]2022 History of Past illness Narrative* Problem Noted Date Diagnosed Date Resolved Date S/P lumbar fusion 04/16/2021 05/28/2021 Encounter for screening mamm ogram for breast cancer 02/21/2016 03/27/2016 Routine gynecological examination 10/13/2014 03/27/2016 Overview: Seeing [facility] Colon cancer screening 10/13/201403/27 Well adult exam 10/13/2014 03/27/2016 Overview: Last done: 02/21/2016 Routine general medical exam ination at a health care facility 08/24/2008 07/29/2011 Overview: 08/25/08 -- establish, from Dr. Ta 11/13/2010, yearly check-up Routine gynecological examination 08/24/2008 07/29/2011 Overview: [facility], [facility] [place] SOLAR LENGINES////DYSCHROMIA OTHER 03/27/2006 03/22/2013 XEROSIS////SEBACEOUS GLAND DIS NEC 03/27/2006 03/22/2013 Family history of malignant neoplasm of gastrointestinal tract 07/02/2005 03/27/2016 Overview: colon ca, both P's documented as of this encounter (statuses as of 02/10/2023) [facility]20[facility] History of Past illness Narrative* Problem Noted Date Diagnosed Date Resolved Date S/P lumbar fusion 04/16/2021 05/28/2021 Encounter for screening mamm ogram for breast cancer 02/21/2016 03/27/2016 Routine gynecological examination 10/13/2014 03/27/2016 Overview: Seeing [facility] Colon cancer screening 10/13/201403/27 Well adult exam 10/13/2014 03/27/2016 Overview: Last done: 02/21/2016 Routine general medical exam ination at a health care facility 08/24/2008 07/29/2011 Overview: 08/25/08 -- establish, from Dr. Ta 11/13/2010, yearly check-up Routine gynecological examination 08/24/2008 07/29/2011 Overview: [facility], [facility] [place] SOL[place]GINES////DYSCHROMIA OTHER 03/27/2006 03/22/2013 XEROSIS////SEBACEOUS GLAND DIS NEC 03/27/2006 03/22/2013 Family history of malignant neoplasm of gastrointestinal tract 07/02/2005 03/27/2016 Overview: colon ca, both P's documented as of this encounter (statuses as of 02/17/2023) [facility]20[facility] History of Past illness Narrative* Problem Noted Date Diagnosed Date Resolved Date S/P lumbar fusion 04/16/2021 05/28/2021 Encounter for screening mamm ogram for breast cancer 02/21/2016 03/27/2016 Routine gynecological examination 10/13/2014 03/27/2016 Overview: [facility] Colon cancer screening 10/13/201403/27 Well adult exam 10/13/2014 03/27/2016 Overview: Last done: 02/21/2016 Routine general medical exam ination at a health care facility 08/24/2008 07/29/2011 Overview: 08/25/08 -- establish, from Dr. Ta 11/13/2010, yearly check-up Routine gynecological examination 08/24/2008 07/29/2011 Overview: [facility], [facility] [place] SOL[place] L[place]GINES////DYSCHROMIA OTHER 03/27/2006 03/22/2013 XEROSIS////SEBACEOUS GLAND DIS NEC 03/27/2006 03/22/2013 Family history of malignant neoplasm of gastrointestinal tract 07/02/2005 03/27/2016 Overview: colon ca, both P's documented as of this encounter (statuses as of 02/17/2023) [facility]2022 History of Past illness Narrative* Problem Noted Date Diagnosed Date Resolved Date S/P lumbar fusion 04/16/2021 05/28/2021 Encounter for screening mamm ogram for breast cancer 02/21/2016 03/27/2016 Routine gynecological examination 10/13/2014 03/27/2016 Overview: Seeing [facility] Colon cancer screening 10/13/201403/27 Well adult exam 10/13/2014 03/27/2016 Overview: Last done: 02/21/2016 Routine general medical exam ination at a health care facility 08/24/2008 07/29/2011 Overview: 08/25/08 -- establish, from Dr. Ta 11/13/2010, yearly check-up Routine gynecological examination 08/24/2008 07/29/2011 Overview: [facility], [facility] [place]GINES////DYSCHROMIA OTHER 03/27/2006 03/22/2013 XEROSIS////SEBACEOUS GLAND DIS NEC 03/27/2006 03/22/2013 Family history of malignant neoplasm of gastrointestinal tract 07/02/2005 03/27/2016 Overview: colon ca, both P's documented as of this encounter (statuses as of 04/14/2023) [facility]-07[facility]20[facility] History of Past illness Narrative* Problem Noted Date Diagnosed Date Resolved Date S/P lumbar fusion 04/16/2021 05/28/2021 Encounter for screening mamm ogram for breast cancer 02/21/2016 03/27/2016 Routine gynecological examination 10/13/2014 03/27/2016 Overview: Seeing [facility] Colon cancer screening 10/13/201403/27 Well adult exam 10/13/2014 03/27/2016 Overview: Last done: 02/21/2016 Routine general medical exam ination at a health care facility 08/24/2008 07/29/2011 Overview: 08/25/08 -- establish, from Dr. Ta 11/13/2010, yearly check-up Routine gynecological examination 08/24/2008 07/29/2011 Overview: [facility], [facility] [place]////DYSCHROMIA OTHER 03/27/2006 03/22/2013 XEROSIS////SEBACEOUS GLAND DIS NEC 03/27/2006 03/22/2013 Family history of malignant neoplasm of gastrointestinal tract 07/02/2005 03/27/2016 Overview: colon ca, both P's documented as of this encounter (statuses as of 04/17/2023) [facility]20[facility] History of Past illness Narrative* Problem Noted Date Diagnosed Date Resolved Date S/P lumbar fusion 04/16/2021 05/28/2021 Encounter for screening mamm ogram for breast cancer 02/21/2016 03/27/2016 Routine gynecological examination 10/13/2014 03/27/2016 Overview: [facility] Colon cancer screening 10/13/201403/27 Well adult exam 10/13/2014 03/27/2016 Overview: Last done: 02/21/2016 Routine general medical exam ination at a health care facility 08/24/2008 07/29/2011 Overview: 08/25/08 -- establish, from Dr. Ta 11/13/2010, yearly check-up Routine gynecological examination 08/24/2008 07/29/2011 Overview: [facility], [facility] [place] L[place]GINES////DYSCHROMIA OTHER 03/27/2006 03/22/2013 XEROSIS////SEBACEOUS GLAND DIS NEC 03/27/2006 03/22/2013 Family history of malignant neoplasm of gastrointestinal tract 07/02/2005 03/27/2016 Overview: colon ca, both P's documented as of this encounter (statuses as of 04/17/2023) [facility]20[facility] History of Past illness Narrative* Problem Noted Date Diagnosed Date Resolved Date S/P lumbar fusion 04/16/2021 05/28/2021 Encounter for screening mamm ogram for breast cancer 02/21/2016 03/27/2016 Routine gynecological examination 10/13/2014 03/27/2016 Overview: Seeing [facility] Colon cancer screening 10/13/201403/27 Well adult exam 10/13/2014 03/27/2016 Overview: Last done: 02/21/2016 Routine general medical exam ination at a health care facility 08/24/2008 07/29/2011 Overview: 08/25/08 -- establish, from Dr. Ta 11/13/2010, yearly check-up Routine gynecological examination 08/24/2008 07/29/2011 Overview: [facility], [facility] [place] SOL[place] L[place]GINES////DYSCHROMIA OTHER 03/27/2006 03/22/2013 XEROSIS////SEBACEOUS GLAND DIS NEC 03/27/2006 03/22/2013 Family history of malignant neoplasm of gastrointestinal tract 07/02/2005 03/27/2016 Overview: colon ca, both P's documented as of this encounter (statuses as of 04/18/2023) [facility]20[facility] History of Past illness Narrative* Problem Noted Date Diagnosed Date Resolved Date S/P lumbar fusion 04/16/2021 05/28/2021 Encounter for screening mamm ogram for breast cancer 02/21/2016 03/27/2016 Routine gynecological examination 10/13/2014 03/27/2016 Overview: Seeing [facility] Colon cancer screening 10/13/201403/27 Well adult exam 10/13/2014 03/27/2016 Overview: Last done: 02/21/2016 Routine general medical exam ination at a health care facility 08/24/2008 07/29/2011 Overview: 08/25/08 -- establish, from Dr. Ta 11/13/2010, yearly check-up Routine gynecological examination 08/24/2008 07/29/2011 Overview: [facility], [facility] [place] SOLAR LENGINES////DYSCHROMIA OTHER 03/27/2006 03/22/2013 XEROSIS////SEBACEOUS GLAND DIS NEC 03/27/2006 03/22/2013 Family history of malignant neoplasm of gastrointestinal tract 07/02/2005 03/27/2016 Overview: colon ca, both P's documented as of this encounter (statuses as of 04/30/2023) [facility]20[facility] History of Past illness Narrative* Problem Noted Date Diagnosed Date Resolved Date S/P lumbar fusion 04/16/2021 05/28/2021 Encounter for screening mamm ogram for breast cancer 02/21/2016 03/27/2016 Routine gynecological examination 10/13/2014 03/27/2016 Overview: [facility] Colon cancer screening 10/13/201403/27 Well adult exam 10/13/2014 03/27/2016 Overview: Last done: 02/21/2016 Routine general medical exam ination at a health care facility 08/24/2008 07/29/2011 Overview: 08/25/08 -- establish, from Dr. Ta 11/13/2010, yearly check-up Routine gynecological examination 08/24/2008 07/29/2011 Overview: [facility], [facility] [place] SOLAR LENGINES////DYSCHROMIA OTHER 03/27/2006 03/22/2013 XEROSIS////SEBACEOUS GLAND DIS NEC 03/27/2006 03/22/2013 Family history of malignant neoplasm of gastrointestinal tract 07/02/2005 03/27/2016 Overview: colon ca, both P's documented as of this encounter (statuses as of 05/01/2023) [facility] History of Past illness Narrative* Problem Noted Date Diagnosed Date Resolved Date S/P lumbar fusion 04/16/2021 05/28/2021 Encounter for screening mamm ogram for breast cancer 02/21/2016 03/27/2016 Routine gynecological examination 10/13/2014 03/27/2016 Overview: Seeing [facility] Colon cancer screening 10/13/201403/27 Well adult exam 10/13/2014 03/27/2016 Overview: Last done: 02/21/2016 Routine general medical exam ination at a health care facility 08/24/2008 07/29/2011 Overview: 08/25/08 -- establish, from Dr. Ta 11/13/2010, yearly check-up Routine gynecological examination 08/24/2008 07/29/2011 Overview: [facility], [facility] [place] SOL[place] L[place]GINES////DYSCHROMIA OTHER 03/27/2006 03/22/2013 XEROSIS////SEBACEOUS GLAND DIS NEC 03/27/2006 03/22/2013 Family history of malignant neoplasm of gastrointestinal tract 07/02/2005 03/27/2016 Overview: colon ca, both P's documented as of this encounter (statuses as of 05/02/2023) [facility] History of Past illness Narrative* Problem Noted Date Diagnosed Date Resolved Date S/P lumbar fusion 04/16/2021 05/28/2021 Encounter for screening mamm ogram for breast cancer 02/21/2016 03/27/2016 Routine gynecological examination 10/13/2014 03/27/2016 Overview: Seeing [facility] Colon cancer screening 10/13/201403/27 Well adult exam 10/13/2014 03/27/2016 Overview: Last done: 02/21/2016 Routine general medical exam ination at a health care facility 08/24/2008 07/29/2011 Overview: 08/25/08 -- establish, from Dr. Ta 11/13/2010, yearly check-up Routine gynecological examination 08/24/2008 07/29/2011 Overview: [facility], [facility] [place] SOLAR LENGINES////DYSCHROMIA OTHER 03/27/2006 03/22/2013 XEROSIS////SEBACEOUS GLAND DIS NEC 03/27/2006 03/22/2013 Family history of malignant neoplasm of gastrointestinal tract 07/02/2005 03/27/2016 Overview: colon ca, both P's documented as of this encounter (statuses as of 05/09/2023) [facility] History of Past illness Narrative* Problem Noted Date Diagnosed Date Resolved Date S/P lumbar fusion 04/16/2021 05/28/2021 Encounter for screening mamm ogram for breast cancer 02/21/2016 03/27/2016 Routine gynecological examination 10/13/2014 03/27/2016 Overview: [facility] Colon cancer screening 10/13/201403/27 Well adult exam 10/13/2014 03/27/2016 Overview: Last done: 02/21/2016 Routine general medical exam ination at a health care facility 08/24/2008 07/29/2011 Overview: 08/25/08 -- establish, from Dr. Ta 11/13/2010, yearly check-up Routine gynecological examination 08/24/2008 07/29/2011 Overview: [facility], [facility] [place] SOLAR LENGINES////DYSCHROMIA OTHER 03/27/2006 03/22/2013 XEROSIS////SEBACEOUS GLAND DIS NEC 03/27/2006 03/22/2013 Family history of malignant neoplasm of gastrointestinal tract 07/02/2005 03/27/2016 Overview: colon ca, both P's documented as of this encounter (statuses as of 05/12/2023) [facility] History of Past illness Narrative* Problem Noted Date Diagnosed Date Resolved Date S/P lumbar fusion 04/16/2021 05/28/2021 Encounter for screening mamm ogram for breast cancer 02/21/2016 03/27/2016 Routine gynecological examination 10/13/2014 03/27/2016 Overview: Seeing [facility] Colon cancer screening 10/13/201403/27 Well adult exam 10/13/2014 03/27/2016 Overview: Last done: 02/21/2016 Routine general medical exam ination at a health care facility 08/24/2008 07/29/2011 Overview: 08/25/08 -- establish, from Dr. Ta 11/13/2010, yearly check-up Routine gynecological examination 08/24/2008 07/29/2011 Overview: [facility], [facility] [place] SOLAR LENGINES////DYSCHROMIA OTHER 03/27/2006 03/22/2013 XEROSIS////SEBACEOUS GLAND DIS NEC 03/27/2006 03/22/2013 Family history of malignant neoplasm of gastrointestinal tract 07/02/2005 03/27/2016 Overview: colon ca, both P's documented as of this encounter (statuses as of 05/19/2023) [facility] History of Past illness Narrative* Problem Noted Date Diagnosed Date Resolved Date S/P lumbar fusion 04/16/2021 05/28/2021 Encounter for screening mamm ogram for breast cancer 02/21/2016 03/27/2016 Routine gynecological examination 10/13/2014 03/27/2016 Overview: Seeing [facility] Colon cancer screening 10/13/201403/27 Well adult exam 10/13/2014 03/27/2016 Overview: Last done: 02/21/2016 Routine general medical exam ination at a health care facility 08/24/2008 07/29/2011 Overview: 08/25/08 -- establish, from Dr. Ta 11/13/2010, yearly check-up Routine gynecological examination 08/24/2008 07/29/2011 Overview: [facility], [facility] [place] SOL[place]ES////DYSCHROMIA OTHER 03/27/2006 03/22/2013 XEROSIS////SEBACEOUS GLAND DIS NEC 03/27/2006 03/22/2013 Family history of malignant neoplasm of gastrointestinal tract 07/02/2005 03/27/2016 Overview: colon ca, both P's documented as of this encounter (statuses as of 05/26/2023) [facility] History of Past illness Narrative* Problem Noted Date Diagnosed Date Resolved Date S/P lumbar fusion 04/16/2021 05/28/2021 Encounter for screening mamm ogram for breast cancer 02/21/2016 03/27/2016 Routine gynecological examination 10/13/2014 03/27/2016 Overview: [facility] Colon cancer screening 10/13/201403/27 Well adult exam 10/13/2014 03/27/2016 Overview: Last done: 02/21/2016 Routine general medical exam ination at a health care facility 08/24/2008 07/29/2011 Overview: 08/25/08 -- establish, from Dr. Ta 11/13/2010, yearly check-up Routine gynecological examination 08/24/2008 07/29/2011 Overview: [facility], [facility] [place] SOL[place] L[place]ES////DYSCHROMIA OTHER 03/27/2006 03/22/2013 XEROSIS////SEBACEOUS GLAND DIS NEC 03/27/2006 03/22/2013 Family history of malignant neoplasm of gastrointestinal tract 07/02/2005 03/27/2016 Overview: colon ca, both P's documented as of this encounter (statuses as of 05/28/2023) [facility] History of Past illness Narrative* Problem Noted Date Diagnosed Date Resolved Date S/P lumbar fusion 04/16/2021 05/28/2021 Encounter for screening mamm ogram for breast cancer 02/21/2016 03/27/2016 Routine gynecological examination 10/13/2014 03/27/2016 Overview: Seeing [facility] Colon cancer screening 10/13/201403/27 Well adult exam 10/13/2014 03/27/2016 Overview: Last done: 02/21/2016 Routine general medical exam ination at a health care facility 08/24/2008 07/29/2011 Overview: 08/25/08 -- establish, from Dr. Ta 11/13/2010, yearly check-up Routine gynecological examination 08/24/2008 07/29/2011 Overview: [facility], [facility] [place] SOLAR LENGINES////DYSCHROMIA OTHER 03/27/2006 03/22/2013 XEROSIS////SEBACEOUS GLAND DIS NEC 03/27/2006 03/22/2013 Family history of malignant neoplasm of gastrointestinal tract 07/02/2005 03/27/2016 Overview: colon ca, both P's documented as of this encounter (statuses as of 06/18/2023) [facility] History of Past illness Narrative* Problem Noted Date Diagnosed Date Resolved Date S/P lumbar fusion 04/16/2021 05/28/2021 Encounter for screening mamm ogram for breast cancer 02/21/2016 03/27/2016 Routine gynecological examination 10/13/2014 03/27/2016 Overview: Seeing [facility] Colon cancer screening 10/13/201403/27 Well adult exam 10/13/2014 03/27/2016 Overview: Last done: 02/21/2016 Routine general medical exam ination at a health care facility 08/24/2008 07/29/2011 Overview: 08/25/08 -- establish, from Dr. Ta 11/13/2010, yearly check-up Routine gynecological examination 08/24/2008 07/29/2011 Overview: [facility], [facility] [place] SOL[place]ES////DYSCHROMIA OTHER 03/27/2006 03/22/2013 XEROSIS////SEBACEOUS GLAND DIS NEC 03/27/2006 03/22/2013 Family history of malignant neoplasm of gastrointestinal tract 07/02/2005 03/27/2016 Overview: colon ca, both P's documented as of this encounter (statuses as of 06/19/2023) [facility] History of Past illness Narrative* Problem Noted Date Diagnosed Date Resolved Date S/P lumbar fusion 04/16/2021 05/28/2021 Encounter for screening mamm ogram for breast cancer 02/21/2016 03/27/2016 Routine gynecological examination 10/13/2014 03/27/2016 Overview: [facility] Colon cancer screening 10/13/201403/27 Well adult exam 10/13/2014 03/27/2016 Overview: Last done: 02/21/2016 Routine general medical exam ination at a health care facility 08/24/2008 07/29/2011 Overview: 08/25/08 -- establish, from Dr. Ta 11/13/2010, yearly check-up Routine gynecological examination 08/24/2008 07/29/2011 Overview: [facility], [facility] [place] SOL[place] L[place]GINES////DYSCHROMIA OTHER 03/27/2006 03/22/2013 XEROSIS////SEBACEOUS GLAND DIS NEC 03/27/2006 03/22/2013 Family history of malignant neoplasm of gastrointestinal tract 07/02/2005 03/27/2016 Overview: colon ca, both P's documented as of this encounter (statuses as of 06/25/2023) [facility] History of Past illness Narrative* Problem Noted Date Diagnosed Date Resolved Date S/P lumbar fusion 04/16/2021 05/28/2021 Encounter for screening mamm ogram for breast cancer 02/21/2016 03/27/2016 Routine gynecological examination 10/13/2014 03/27/2016 Overview: Seeing [facility] Colon cancer screening 10/13/201403/27 Well adult exam 10/13/2014 03/27/2016 Overview: Last done: 02/21/2016 Routine general medical exam ination at a health care facility 08/24/2008 07/29/2011 Overview: 08/25/08 -- establish, from Dr. Ta 11/13/2010, yearly check-up Routine gynecological examination 08/24/2008 07/29/2011 Overview: [facility] [place] L[place]GINES////DYSCHROMIA OTHER 03/27/2006 03/22/2013 XEROSIS////SEBACEOUS GLAND DIS NEC 03/27/2006 03/22/2013 Family history of malignant neoplasm of gastrointestinal tract 07/02/2005 03/27/2016 Overview: colon ca, both P's documented as of this encounter (statuses as of 06/25/2023) [facility] History of Past illness Narrative* Problem Noted Date Diagnosed Date Resolved Date S/P lumbar fusion 04/16/2021 05/28/2021 Encounter for screening mamm ogram for breast cancer 02/21/2016 03/27/2016 Routine gynecological examination 10/13/2014 03/27/2016 Overview: Seeing [facility] Colon cancer screening 10/13/201403/27 Well adult exam 10/13/2014 03/27/2016 Overview: Last done: 02/21/2016 Routine general medical exam ination at a health care facility 08/24/2008 07/29/2011 Overview: 08/25/08 -- establish, from Dr. Ta 11/13/2010, yearly check-up Routine gynecological examination 08/24/2008 07/29/2011 Overview: [facility], [facility] [place]GINES////DYSCHROMIA OTHER 03/27/2006 03/22/2013 XEROSIS////SEBACEOUS GLAND DIS NEC 03/27/2006 03/22/2013 Family history of malignant neoplasm of gastrointestinal tract 07/02/2005 03/27/2016 Overview: colon ca, both P's documented as of this encounter (statuses as of 06/27/2023) [facility] History of Past illness Narrative* Problem Noted Date Diagnosed Date Resolved Date S/P lumbar fusion 04/16/2021 05/28/2021 Encounter for screening mamm ogram for breast cancer 02/21/2016 03/27/2016 Routine gynecological examination 10/13/2014 03/27/2016 Overview: [facility] Colon cancer screening 10/13/201403/27 Well adult exam 10/13/2014 03/27/2016 Overview: Last done: 02/21/2016 Routine general medical exam ination at a health care facility 08/24/2008 07/29/2011 Overview: 08/25/08 -- establish, from Dr. Ta 11/13/2010, yearly check-up Routine gynecological examination 08/24/2008 07/29/2011 Overview: [facility], [facility] [place]GINES////DYSCHROMIA OTHER 03/27/2006 03/22/2013 XEROSIS////SEBACEOUS GLAND DIS NEC 03/27/2006 03/22/2013 Family history of malignant neoplasm of gastrointestinal tract 07/02/2005 03/27/2016 Overview: colon ca, both P's documented as of this encounter (statuses as of 06/27/2023) [facility] Medical Records Department [address] [place] [address] Counseling Note - Pharmacy 12/22/241536 MR#: [id number] Acct: [id number] Name: SPENSER PUTNAM Rep #:[id number] : 1940 84 From: Rupert alvarez PCP: Dr. Juan Spann MD Status:DIS JANNETTE Y Location: [place] [address] [place] [facility] has performed discharge medication [...] 12/22/24 12/22/24 1537 ebly> Date _ Rupert Clayton Signature (if applicable): Date CC: ~ [facility] Rupert Max [facility] Note Date/Time December 22, 2024 3 :37pm [facility] Medical Records Department [address] [place] [address] Counseling Note - Pharmacy 12/22/241536 MR#: [id number] Acct: [id number] Name: SPENSER PUTNAM Rep #:[id number] : 1940 84 From: Rupert alvarez PCP: Dr. Juan Spann MD Status:DIS JANNETTE Y Location: [place] [address] [place]acy [place] [facility] has performed discharge medication [...] Score 1-10 7 days #35 tabs 12/22/24 12/22/241536 <Electronically signed by Rupert Yip> Date _ Rupert Palacioigner Signature (if applicable): Date CC: ~ Signed [facility] Work Phone: Discharge summary Author Chelsea Carbone [facility] Note Date/Time December 22, 2024 3 :03pm [facility] Medical Records Department [address] [place] [address] Instructions for Home/Discharge Instructions 12/22/24 1448 MR#: [id number] Acct: [id number] Name: SPENSER PUTNAM Rep #:[id number] : 1940 84 From: Chelsea Carbone DO [...] Juan Spann MD; Dr. Rachael Crook MD ~ Signed [facility] Work Phone: Discharge summary Author Chelsea [facility] Note Date/Time December 22, 2024 3 :36pm [facility] Medical Records Department [address] [place] [address] Discharge Summary 12/22/241502 MR#: [id number] Acct: [id number] Name: SPENSER PUTNAM Rep #:[id number] : 1940 84 From: Chelsea Carbone DO PCP: Dr. Juan Spann MD Status:DIS JANNETTE Location: [place] [id number]- Providers Date of Admission: 12/21/24 Date of [...] was seen in the emergency room at [facility] after suffering a syncopal episode at [...] her to see the cardiology group at [facility] for evaluation for that loop recorder. [...] % (Auto) 57.0, Lymph % (Auto) 34.6, [place] % (Auto) 7.3, Eos % (Auto) 0.4, [...] Clarity Clear, Urine pH 6.5, Ur Specific [place] 1.015, Urine Protein 30 H, Urine Glucose [...] % (Auto) 61.3, Lymph % (Auto) 30.5, [place]% (Auto) 7.2, Eos % (Auto) 0.6, Baso [...] patient's lower abdominal pain. There is a grbjuaty-op-vomoi amount of stool in sigmoid colonic loops. No definite bowel obstruction however. Other details as above. Reading Location: [facility] Chest X-Ray 12/21/24 20:10 IMPRESSION: No acute abnormality. Reading Location: [facility] Echocardiogram 12/22/24 05:55 Interpretation Summary Normal [...] Primary Care Provider: Juan Spann Consulting Providers: Koram,Rachael Cassie Discharge Orders/Prescriptions Prescriptions: Continued aspirin 81 MG [...] Self Care Charges/Coding Visit Charges Inpatient E&M: 01663 Disch Hosp >30min 12/28/24 1301 <Electronically signed by Chelsea Carbone DO> Cosigner Signature (if applicable): CC: Dr. Juan Spann MD; Dr. Chelsea Carbone DO~ Signed [facility] Work Phone: Evaluation noteThere may be information available, but it has not been provided by the sender.[facility] [place] [facility] Work Phone: Evaluation note* Diagnosis Restless leg syndrome Restless legs syndrome (RLS) documented in this encounter [facility] note* Diagnosis Vertigo- Primary Dizziness and giddiness Injury of head, initial encounter documented in this encounter [facility] note* Diagnosis Injury of head, initial encounter Vertigo Dizziness and giddiness documented in this encounter [facility] note* Diagnosis Mixed hyperlipidemia- Primary Essential hypertension with goal blood pressure less than 140/90 Restless leg syndrome Restless legs syndrome (RLS) Vertigo Dizziness and giddiness Carpal tunnel syndrome, left Carpal tunnel syndrome Valvular heart disease Endocarditis, valve unspecified, unspecified cause documented in this encounter [facility] note* Diagnosis Restless leg syndrome Restless legs syndrome (RLS) [facility] Diagnosis Left carpal tunnel syndrome- Primary Carpal tunnel syndrome Left carpal tunnel syndrome Carpal tunnel syndrome [facility] Diagnosis Pruritus- Primary Unspecified pruritic disorder Hypokalemia Hypopotassemia Essential hypertension with goal blood pressure less than 140/90 Abnormal thyroid blood test Nonspecific abnormal results of thyroid function study Mixed hyperlipidemia Vitamin D deficiency Unspecified vitamin D deficiency [facility] Diagnosis Abnormal thyroid blood test- Primary Nonspecific abnormal results of thyroid function study Multiple thyroid nodules Nontoxic multinodular goiter [facility]* Diagnosis Urinary frequency- Primary [facility]* Diagnosis Medicare annual wellness visit, subsequent- Primary Routine general medical examination at a [facility] care facility Essential hypertension with goal blood [...] Other specified counseling [facility] Diagnosis Restless leg syndrome Restless legs syndrome (RLS) [facility] Diagnosis Restless leg syndrome Restless legs syndrome (RLS) [facility]* Diagnosis Paronychia of finger of right hand- Primary [facility]* Diagnosis Multiple thyroid nodules Nontoxic multinodular goiter [facility]* Diagnosis Acute non-recurrent sinusitis, unspecified location- Primary [facility] Diagnosis Acute non-recurrent sinusitis, unspecified location [facility]* Diagnosis Spinal stenosis, lumbar region, without neurogenic claudication- Primary Lumbar radiculopathy Thoracic or lumbosacral neuritis or radiculitis, unspecified Lumbar spondylosis Lumbosacral spondylosis without myelopathy Primary osteoarthritis of both knees Primary localized osteoarthrosis, lower leg documented [facility] this [facility]* Diagnosis Primary osteoarthritis of both knees Primary localized osteoarthrosis, lower leg [facility]* Diagnosis Lumbar radiculopathy- Primary Thoracic or lumbosacral neuritis or radiculitis, unspecified Spinal stenosis, lumbar region, without neurogenic claudication documented [facility] this encounter [facility] Diagnosis Lumbar radiculopathy- Primary Thoracic or lumbosacral neuritis or radiculitis, unspecified documented [facility]* Diagnosis Restless leg syndrome Restless legs syndrome (RLS) documented [facility]* Diagnosis Primary osteoarthritis of both knees- Primary Primary localized osteoarthrosis, lower leg [facility]* Diagnosis Great toe pain, left- Primary Candidiasis of skin Candidiasis of skin and nails Spinal stenosis of lumbar region, unspecified whether neurogenic claudication present [facility]* Diagnosis Elevated blood uric acid level- Primary Other abnormal blood chemistry Multiple thyroid nodules Nontoxic multinodular goiter [facility]* Diagnosis Primary osteoarthritis of both knees- Primary Primary localized osteoarthrosis, lower leg Lumbar radiculopathy Thoracic or lumbosacral neuritis or radiculitis, unspecified Spinal stenosis, lumbar region, without neurogenic claudication Lumbar spondylosis Lumbosacral spondylosis without myelopathy Disorder of sacrum Disorders of sacrum Malignant melanoma of right shoulder (HCC) documented [facility] this [facility]* Diagnosis Hyperkalemia- Primary Hyperpotassemia Hypercalcemia Elevated serum creatinine Other nonspecific findings on examination of blood Hyperuricemia Other abnormal blood chemistry [facility]* Diagnosis Primary osteoarthritis of both knees- Primary Primary localized osteoarthrosis, lower leg documented [facility]* Diagnosis Primary osteoarthritis of both knees- Primary Primary localized osteoarthrosis, lower leg [facility]* Diagnosis Lumbar radiculopathy Thoracic or lumbosacral neuritis or radiculitis, unspecified Spinal stenosis, lumbar region, without neurogenic claudication Lumbar spondylosis Lumbosacral spondylosis without myelopathy Disorder of sacrum Disorders of sacrum documented [facility]* Diagnosis Primary osteoarthritis of both knees- Primary Primary localized osteoarthrosis, lower leg [facility]* Diagnosis Lumbar disc herniation- Primary Displacement of lumbar intervertebral disc without myelopathy Lumbar radiculopathy Thoracic or lumbosacral neuritis or radiculitis, unspecified Lumbar spondylosis Lumbosacral spondylosis without myelopathy Disorder of sacrum Disorders of sacrum documented [facility]* Diagnosis Medicare annual wellness visit, subsequent- [...] vitamin D deficiency [facility]* Diagnosis Multiple thyroid nodules Nontoxic multinodular goiter [facility]* Diagnosis Primary osteoarthritis of both knees- Primary Primary localized osteoarthrosis, lower leg Lumbar radiculopathy Thoracic or lumbosacral neuritis or radiculitis, unspecified documented [facility] this [facility]* Diagnosis Lumbar radiculopathy- Primary Thoracic or lumbosacral neuritis or radiculitis, unspecified Spinal stenosis, lumbar region, without neurogenic claudication Primary osteoarthritis of both knees Primary localized osteoarthrosis, lower leg [facility]* Diagnosis Osteopenia, senile Disorder of bone and cartilage, unspecified Primary ovarian failure Other ovarian failure [facility]* Diagnosis Osteopenia, senile- Primary Disorder of bone and cartilage, unspecified Anemia, chronic disease Anemia of other chronic disease Vitamin B12 deficiency Other B-complex deficiencies [facility]* Diagnosis Spinal stenosis of lumbar region, unspecified whether neurogenic claudication present [facility]* Diagnosis Lumbar radiculopathy- Primary Thoracic or lumbosacral neuritis or radiculitis, unspecified Spinal stenosis, lumbar region, without neurogenic claudication documented [facility] this [facility]* Diagnosis Acute hip pain, right documented [facility] this [facility]* Diagnosis Hospital discharge follow-up- Primary Other follow-up examination Encounter for immunization Need for other specified prophylactic vaccination against single bacterial disease Recurrent UTI (urinary tract infection) Urinary tract infection, site not specified Anemia, unspecified type Essential hypertension with goal blood pressure less than 140/90 Vitamin B12 deficiency Other B-complex deficiencies Hypomagnesemia Disorders of magnesium metabolism documented [facility]* Diagnosis Recurrent UTI (urinary tract infection)- Primary Urinary tract infection, site not specified Hyponatremia Hyposmolality and/or hyponatremia documented in this [facility]* Diagnosis Lumbar radiculopathy- Primary Thoracic or lumbosacral neuritis or radiculitis, unspecified Spinal stenosis, lumbar region, without neurogenic claudication Lumbar spondylosis Lumbosacral spondylosis without myelopathy Pain in thoracic spine documented in this [facility]* Diagnosis Essential hypertension with goal blood pressure less than 140/90- Primary Encounter for immunization Need for other specified prophylactic vaccination against single bacterial disease documented [facility] this [facility]* Diagnosis Hypomagnesemia- Primary Disorders of magnesium metabolism documented in [facility]* Diagnosis Lumbar radiculopathy- Primary Thoracic or lumbosacral neuritis or radiculitis, unspecified documented in this [facility]* Diagnosis Encounter for assessment of healthcare decision-making capacity- Primary [facility]* Diagnosis Lumbar radiculopathy- Primary Thoracic or lumbosacral neuritis or radiculitis, unspecified Spinal stenosis, lumbar region, without neurogenic claudication Lumbar spondylosis Lumbosacral spondylosis without myelopathy Disorder of sacrum Disorders of sacrum documented in this [facility]* Diagnosis Pain in thoracic spine documented in this [facility]* Diagnosis Lumbar radiculopathy- Primary Thoracic or lumbosacral neuritis or radiculitis, unspecified Spinal stenosis, lumbar region, without neurogenic claudication documented in this encounter [facility]* Diagnosis Lumbar radiculopathy- Primary Thoracic or lumbosacral neuritis or radiculitis, unspecified Spinal stenosis, lumbar region, without neurogenic claudication documented in this encounter [facility]* Diagnosis Restless leg syndrome Restless legs syndrome (RLS) documented in this encounter [facility] note* Diagnosis Essential hypertension with goal blood pressure less than 140/90- Primary Mixed hyperlipidemia Raynaud's phenomenon without gangrene Valvular heart disease Endocarditis, valve unspecified, unspecified cause Lumbar radiculopathy Thoracic or lumbosacral neuritis or radiculitis, unspecified Multiple thyroid nodules Nontoxic multinodular goiter documented in this encounter [facility] note* Diagnosis Lumbar radiculopathy- Primary Thoracic or lumbosacral neuritis or radiculitis, unspecified Spinal stenosis, lumbar region, without neurogenic claudication documented in this encounter [facility]* Diagnosis Hypokalemia Hypopotassemia documented in this encounter [facility] note* Diagnosis Lumbar radiculopathy- Primary Thoracic or lumbosacral neuritis or radiculitis, unspecified Spinal stenosis, lumbar region, without neurogenic claudication Lumbar spondylosis Lumbosacral spondylosis without myelopathy documented in this encounter [facility] note* Diagnosis Spinal stenosis, lumbar region, without neurogenic claudication- Primary Lumbar radiculopathy Thoracic or lumbosacral neuritis or radiculitis, unspecified documented in this encounter [facility] note* Diagnosis Postlaminectomy syndrome of lumbar region- Primary Postlaminectomy syndrome, lumbar region documented in this encounter [facility] Work Phone: Evaluation note* Diagnosis Lumbar radiculopathy Thoracic or lumbosacral neuritis or radiculitis, unspecified Spinal stenosis, lumbar region, without neurogenic claudication documented in this encounter [facility]* Diagnosis Spinal stenosis, lumbar region, without neurogenic claudication- Primary Lumbar spondylosis Lumbosacral spondylosis without myelopathy Lumbar radiculopathy Thoracic or lumbosacral neuritis or radiculitis, unspecified documented in this encounter [facility] note* Diagnosis Lumbar spondylosis Lumbosacral spondylosis without myelopathy documented [facility]* Diagnosis Restless leg syndrome Restless legs syndrome (RLS) documented in this encounter [facility]* Diagnosis Pre-op examination- Primary Preoperative examination, unspecified Lumbar radiculopathy Thoracic or lumbosacral neuritis or radiculitis, unspecified Essential hypertension with goal blood pressure less than 140/90 documented in this encounter [facility]* Diagnosis Renal insufficiency- Primary Unspecified disorder of kidney and ureter Hyperkalemia Hyperpotassemia documented in this [facility]* Diagnosis Hyperkalemia- Primary Hyperpotassemia documented [facility] this [facility]* Diagnosis Postlaminectomy syndrome of lumbar region- Primary Postlaminectomy syndrome, lumbar region Preoperative examination Unspecified pre-operative examination Systolic murmur Undiagnosed cardiac murmurs Leg swelling Swelling of limb Postlaminectomy syndrome of lumbar region Postlaminectomy syndrome, lumbar region documented in this encounter [facility] Work Phone: Evaluation note* Diagnosis Postlaminectomy syndrome of lumbar region- Primary Postlaminectomy syndrome, lumbar region Postlaminectomy syndrome of lumbar region Postlaminectomy syndrome, lumbar region Primary hypertension Unspecified essential hypertension Chronic low back pain Lumbago Vertigo Dizziness and giddiness Restless legs syndrome Restless legs syndrome (RLS) documented in this encounter [facility] Work Phone: Evaluation note* Diagnosis Postlaminectomy syndrome of lumbar region- Primary Postlaminectomy syndrome, lumbar region S/P insertion of spinal cord stimulator documented in this encounter [facility] Work Phone: Evaluation note* Diagnosis Medicare annual [...] single bacterial disease [facility] Diagnosis Multiple thyroid nodules Nontoxic multinodular goiter documented [facility]* Diagnosis Restless leg syndrome Restless legs syndrome (RLS) documented [facility]* Diagnosis Onset Date Resolution Status Admit Date Chronic anemia inactive December 212024 9:33pm History of spinal stenosis inactive December 21, 2024 9:33pm Syncope inactive December 21, 2024 9:33pm [facility] Work Phone: History and physical note Author Rachael [facility] Note Date/Time December 22, 2024 6 :[address] [place] [address] System Medical Records Department [address] [place] [address] H&P Exam - Hospitalist 12/21/242117 MR#: [id number] Acct: [id number] Name: SPENSER PUTNAM Rep #:[id number] : 1940 84 From: Rachael Crook MD PCP: Dr. Juan Spann MD Status:ADM JANNETTE Location: [place] [address] HPI - General General Date of Admission: [...] be managed for syncope of unclear etiology. [facility] Medical History Elevated d-dimer Chronic anemia HLD [...] % (Auto) 57.0, Lymph % (Auto) 34.6, [place] % (Auto) 7.3, Eos % (Auto) 0.4, [...] Clarity Clear, Urine pH 6.5, Ur Specific [place] 1.015, Urine Protein 30 H, Urine Glucose (UA) Normal, Urine Ketones Negative, Urine Occult Blood 10 H, Urine Nitrite Negative, Urine Bilirubin Negative, Urine Urobilinogen Normal, Ur Leukocyte Esterase Negative Rhythm Strip Rhythm Strip: Sinus bradycardia Rate: 57 Ectopy: None Imaging Radiology Impression Abdomen/Pelvis CT 12/21/24 20:05 IMPRESSION: No definite explanation for the patient's lower abdominal pain. There is a tpcmovxr-vs-ghstb amount of stool in sigmoid colonic loops. No definite bowel obstruction however. Other details as above. Reading [facility] 12/21/24 20:10 IMPRESSION: No acute abnormality. Reading [facility] Assessment & Plan Assessment/Plan (1) Syncope: PLAN: [...] elects to be full code. * Total cuck-cp-ekbq time 17 minutes. Charges/Coding Visit Charges Inpatient E&M: 52921 Init Hosp L2 Procedures Hospitalists Procedures: 96918 Advncd Care Plan 30 Min 12/22/24 0647 <Electronically signed by Rachael Crook MD> Cosigner Signature (if applicable): CC: Dr. Juan Spann MD; Dr. Rachael Crook MD~ Signed [facility] Work Phone: Hospital Discharge instructionsAdditional Instructions [facility]: [facility]: Instructions* Instruction Description Start Date Patient advised to follow-up with Primary Care Physician for BMI management. [facility] Work Phone: Reason for referral (narrative)* Diagnostic Procedure Only (Routine) - Authorized Specialty Diagnoses / Procedures Referred By Contac t Referred To Contact US IMAGING Diagnoses Multiple thyroid nodules Procedures US THYROID/PARATHYROID US SOFT TISSUE HEAD & NECK REAL TIME IMGE DOCM Juan Spann MD [address] [place] [address] Us Imaging Referral ID Status Reason Start Date Expiration Date Visits Requested Visits Authorized [id number] Authorized Auto-Generat ed Referral 07/22/2022 08/21/2023 1 1 [facility] for referral (narrative)* Diagnostic Procedure Only (Routine) - Closed Specialty Diagnoses / Procedures Referred By Contac t Referred To Contact US IMAGING Diagnoses Multiple thyroid nodules Procedures US THYROID/PARATHYROID US SOFT TISSUE HEAD & NECK REAL TIME IMGE DOCM Juan Spann MD [address] [place] [address] [place] [address] Referral ID Status Reason Start Date Expiration Date V isits Requested Visits Authorized [id number] Closed Auto-Generate d Referral 07/22/2022 08/21/2023 1 1 [facility] for referral (narrative)* Diagnostic Procedure Only (Routine) - Closed Specialty Diagnoses / Procedures Referred By Contac t Referred To Contact XR IMAGING Diagnoses Primary osteoarthritis of both knees Procedures XR KNEE GENERAL 4V AP BOTH/PA BOTH/LAT/MERC BILATERAL RADIOLOGIC EXAM KNEE COMPLETE 4/MORE VIEWS Jackson Sumner MD [address] [place] [address] [place] [address] Referral ID Status Reason Start Date Expiration Date V isits Requested Visits Authorized [id number] Closed Auto-Generate d Referral 04/17/2023 05/16/2024 1 1 [facility] for referral (narrative)* Diagnostic Procedure Only (Routine) - Closed Specialty Diagnoses / Procedures Referred By Contac t Referred To Contact XR IMAGING Diagnoses Primary osteoarthritis of both knees Procedures XR KNEE GENERAL 4V AP BOTH/PA BOTH/LAT/MERC BILATERAL RADIOLOGIC EXAM KNEE COMPLETE 4/MORE VIEWS Jackson Sumner MD [address] [place] [address] [place] [address] Referral ID Status Reason Start Date Expiration Date V isits Requested Visits Authorized [id number] Closed Auto-Generate d Referral 04/17/2023 05/16/2024 1 1 [facility] for referral (narrative)* Diagnostic Procedure Only (Routine) - Authorized Specialty Diagnoses / Procedures Referred By Contac t Referred To Contact XR IMAGING Diagnoses Osteopenia, senile Primary ovarian failure Procedures DXA-AXIAL SKELETON Juan Spann MD [address] [place] [address] [place] [address] Referral ID Status Reason Start Date Expiration Date Visits Requested Visits Authorized [id number] Authorized Auto-Generat ed Referral 09/17/2023 10/16/2024 1 1 * Diagnostic Procedure Only (Routine) - Authorized Specialty Diagnoses / Procedures Referred By Contac t Referred To Contact US IMAGING Diagnoses Multiple thyroid nodules Procedures US THYROID/PARATHYROID US SOFT TISSUE HEAD & NECK REAL TIME IMGE DOCM Juan Spann MD [address] [place] [address] [place] [address] Referral ID Status Reason Start Date Expiration Date Visits Requested Visits Authorized [id number] Authorized Auto-Generat ed Referral 09/17/2023 10/16/2024 1 1 [facility] for referral (narrative)* Diagnostic Procedure Only (Routine) - Closed Specialty Diagnoses / Procedures Referred By Contac t Referred To Contact XR IMAGING Diagnoses Spinal stenosis of lumbar region, unspecified whether neurogenic claudication present Procedures XR LUMBAR GENERAL 3V AP/LAT/L5-S1 RADEX SPINE LUMBOSACRAL 2/3 VIEWS Destini Lay PA-C [address] [place] [address] [place] [address] Referral ID Status Reason Start Date Expiration Date V isits Requested Visits Authorized [id number] Closed Auto-Generate d Referral 03/20/2023 04/18/2024 1 1 [facility] for referral (narrative)* Diagnostic Procedure Only (Routine) - Closed Specialty Diagnoses / Procedures Referred By Contac t Referred To Contact XR IMAGING Diagnoses Acute hip pain, right Procedures XR HIP GENERAL 3V PELV/AP/LAT RIGHT RADEX HIP UNILATERAL WITH PELVIS 2-3 VIEWS Thang Shannon MD [address] [place] [address] [place] [address] Referral ID Status Reason Start Date Expiration Date V isits Requested Visits Authorized [id number] Closed Auto-Generate d Referral 02/25/2023 03/26/2024 1 1 [facility] for referral (narrative)No reason for referral information availableWTuscarawas [facility] Work Phone: [facility] Narrative* Diagnostic Procedure Only (Routine) - Closed Specialty Diagnoses / Procedures Referred By Contac t Referred To Contact XR IMAGING Diagnoses Primary osteoarthritis of both knees Procedures XR KNEE GENERAL 4V AP BOTH/PA BOTH/LAT/MERC BILATERAL RADIOLOGIC EXAM KNEE COMPLETE 4/MORE VIEWS Jackson Sumner MD [address] [address] [place] [address] Referral ID Status Reason Start Date Expiration Date V isits Requested Visits Authorized [id number] Closed Auto-Generate d Referral 04/17/2023 05/16/2024 1 1 [facility] for visit Narrative* Diagnostic Procedure Only (Routine) - Closed Specialty Diagnoses / Procedures Referred By Contac t Referred To Contact US IMAGING Diagnoses Multiple thyroid nodules Procedures US THYROID/PARATHYROID US SOFT TISSUE HEAD & NECK REAL TIME IMGE Juan Brumfield MD [address] [place] [address] [place] [address] Referral ID Status Reason Start Date Expiration Date V isits Requested Visits Authorized [id number] Closed Auto-Generate d Referral 09/17/2023 10/16/2024 1 1 [facility] for visit Narrative* Diagnostic Procedure Only (Routine) - Closed Specialty Diagnoses / Procedures Referred By Contac t Referred To Contact XR IMAGING Diagnoses Osteopenia, senile Primary ovarian failure Procedures DXA-AXIAL SKELETON Juan Spann MD [address] [place] [address] [place] [address] Referral ID Status Reason Start Date Expiration Date V isits Requested Visits Authorized [id number] Closed Auto-Generate d Referral 09/17/2023 10/16/2024 1 1 [facility] for visit Narrative* Diagnostic Procedure Only (Routine) - Closed Specialty Diagnoses / Procedures Referred By Contac t Referred To Contact XR IMAGING Diagnoses Spinal stenosis of lumbar region, unspecified whether neurogenic claudication present Procedures XR LUMBAR GENERAL 3V AP/LAT/L5-S1 RADEX SPINE LUMBOSACRAL 2/3 VIEWS Destini Lay PA-C [address] [place] [address] [place] [address] Referral ID Status Reason Start Date Expiration Date V isits Requested Visits Authorized [id number] Closed Auto-Generate d Referral 03/20/2023 04/18/2024 1 1 [facility] for visit Narrative* Diagnostic Procedure Only (Routine) - Closed Specialty Diagnoses / Procedures Referred By Contac t Referred To Contact XR IMAGING Diagnoses Acute hip pain, right Procedures XR HIP GENERAL 3V PELV/AP/LAT RIGHT RADEX HIP UNILATERAL WITH PELVIS 2-3 VIEWS Thang Shannon MD [address] [place] [address] [place] [address] Referral ID Status Reason Start Date Expiration Date V isits Requested Visits Authorized [id number] Closed Auto-Generate d Referral 02/25/2023 03/26/2024 1 1 [facility] for visit Narrative* Diagnostic Procedure Only (Routine) - Closed Specialty Diagnoses / Procedures Referred By Contac t Referred To Contact XR IMAGING Diagnoses Lumbar radiculopathy Spinal stenosis, lumbar region, without neurogenic claudication Procedures XR THORACIC LIMITED 2V AP/LAT RADEX SPINE THORACIC 2 VIEWS Danii Roca MD, PhD [address] [place] [address] Phone: tel: fax: [place] [address] Referral ID Status Reason Start Date Expiration Date V isits Requested Visits Authorized [id number] Closed Auto-Generate d Referral 04/27/2024 05/27/2025 1 1 [facility] for visit Narrative* CV Imaging (Emergency) - Authorized Specialty Diagnoses / Procedures Referred By Contac t Referred To Contact Cardiology Diagnoses Preoperative examination Systolic murmur Leg swelling Procedures Transthoracic Echo (TTE) Complete AR ECHO TTHRC R-T 2D W/WOM-MODE COMPL SPEC&COLR D Naomi Leung PA-C [address] [place] [address] Phone: tel: fax: Referral ID Status Reason Start Date Expiration Date Visits Requested Visits Authorized [id number] Authorized Perform Procedure 06/16/2024 06/16/2025 1 1 [facility] Work Phone: Reason for visit Narrative* Auth/Cert Specialty Diagnoses / Procedures Referred By Lashaac t Referred To Contact Diagnoses Postlaminectomy syndrome of lumbar region Postlaminectomy syndrome of lumbar region [M96.1] Procedures AR PRQ IMPLTJ NSTIM ELECTRODE ARRAY EPIDURAL AR PRQ IMPLTJ NSTIM ELECTRODE ARRAY EPIDURAL AR INSJ/RPLCMT SPINAL NPG/RCVR POCKET CRTJ&CONNJ Percutaneous Thoracic Spinal Cord Stimulator Electrodes and Generator Placement (Medtronic) Percutaneous Thoracic Spinal Cord Stimulator Electrodes and Generator Placement (Medtronic) Percutaneous Thoracic Spinal Cord Stimulator Electrodes and Generator Placement (Medtronic) [place] [address] [facility] Department [place] [address] Phone: tel: fax: [place] [address] [place] [address] fax: Referral ID Status Reason Start Date Expiration Date Visits Re quested Visits Authorized [id number] 1 1 [facility] Work Phone: Chief Complaint Chief Complaint Description Start Date lower back post Lateral Lumb ar interbody fusion L3-4 on 01/23/2021 Preliminary chief co mplaint data, not yet signed by the author as of Advance Directives No Advanced Directives Records FoundDocuments on File Type Date Recorded 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 Advance Directive(s) 05/08/2016 9:01 AM Advance Directive(s) 10/23/2010 12:00 AM Advance Directive(s) 04/24/2006 12:00 AM Documents on File Type Date Recorded 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 Yes December 21, 2024 10:23pm Name of Medical Power of Trimmer Sorter Larry Putnam () December 21, 2024 10:23pm [...] STEM W/O CONTRAST MATERIAL Destini Lay PA-C [address] [place] [address] Mr Imaging Referral ID Status Reason Start Date Expiration Date Visits Requested Visits Authorized [id number] Authorized Auto-Generat ed Referral 09/05/2021 10/05/2022 1 1 Referral ID Status Reason Start Date Expiration Date V isits Requested Visits Authorized [id number] Closed Auto-Generate d Referral 09/05/2021 10/05/2022 1 1 Specialty Diagnoses / Procedures Referred By Contac t Referred To Contact Orthopedics Diagnoses Carpal tunnel syndrome, left Procedures CONSULT TO ORTHOPAEDICS OFFICE/OUTPATIENT [facility] 60-74 MINUTES Destini Lay PA-C [address] [place] [address] Referral ID Status Reason Start Date Expiration Date Visits Requested Visits Authorized [id number] Authorized PCP Requested Referral 12/03/2021 12/03/2022 1 1 Specialty Diagnoses / Procedures Referred By Contac t Referred To Contact [facility] Diagnoses Lumbar radiculopathy Spinal stenosis, lumbar region, without neurogenic claudication Lumbar spondylosis Disorder of sacrum Procedures CONSULT TO PHYSICAL THERAPY PHYSICAL THERAPY EVALUATION [facility] 45 MINS Aj Graham APRN.PLATEMAKER [address] [place] [address] [facility] [place] [address] [place] [address] Referral ID Status Reason Start Date Expiration Date Visits Requested Visits Authorized [id number] Pending Review PCP Requested Referral Auto-Generate d Referral 06/26/2023 06/25/2024 99 99 Specialty Diagnoses / Procedures Referred By Contac t Referred To Contact [facility] [place] Diagnoses Lumbar radiculopathy Spinal stenosis, lumbar region, without neurogenic claudication Procedures CONSULT TO [facility] Aj Graham APRN.PLATEMAKER [address] [place] [address] Referral ID Status Reason Start Date Expiration Date Visits Requested Visits Authorized [id number] Ref Not Required PCP Requested Referral 12/11/2023 12/10/2024 1 1 Specialty Diagnoses / Procedures Referred By Contac t Referred To Contact MR IMAGING Diagnoses Pain in thoracic spine Procedures MRI THORACIC SPINE WO IVC MRI SPINAL CANAL THORACIC W/O CONTRAST MATRL Aj Graham APRN.PLATEMAKER [address] [place] [address] [place] [address] Referral ID Status Reason Start Date Expiration Date Visits Requested Visits Authorized [id number] Authorized Auto-Generat ed Referral 12/11/2023 01/09/2025 1 1 Referral ID Status Reason Start Date Expiration Date V isits Requested Visits Authorized [id number] Closed Auto-Generate d Referral 12/11/2023 01/09/2025 1 [...] EVALUATION HIGH COMPLEX 45 MINS Aj Graham APRN.PLATEMAKER [address] [place] [address] [facility] [address] [address] Referral ID Status Reason Start Date Expiration Date Visits Requested Visits Authorized [id number] Authorized PCP Requested Referral Auto-Generate d Referral [...] 10/17/2021 Specialty Diagnoses / Procedures Referred By Lashaac t Referred To Contact MR IMAGING Diagnoses Injury of head, initial encounter Vertigo Procedures MRI BRAIN WO IVCON MRI BRAIN BRAIN STEM W/O CONTRAST MATERIAL Destini Lay PA-C [address] [place] [address] Mr Imaging Referral ID Status Reason Start Date Expiration Date V isits Requested Visits Authorized [id number] Closed Auto-Generate d Referral 09/05/2021 10/05/2022 1 [...] US Specialty Diagnoses / [facility] Diagnoses Multiple thyroid nodules Procedures US THYROID/PARATHYROID US SOFT TISSUE HEAD & NECK REAL TIME IMGE Juan Brumfield MD [address] [place] [address] [place] [address] Referral ID Status Reason Start Date Expiration Date V isits Requested Visits Authorized [id number] Closed Auto-Generate d Referral 07/22/2022 08/21/2023 1 1 Reason Comments Nasal Congestion sinus pressure x 3 w eeks Reason Onset Date Comments Sinus Problem 02/14/2023 Reason Onset Date Comments Refill Request 04/14/2023 Reason Comments New Patient Evaluation Back Pain Lower Leg Pain Left Reason Comments Injection Questions Reason Comments Injections TFESI Specialty Diagnoses / Procedures [facility] Pain Management / PAIN MANAGEMENT Diagnoses Spinal stenosis, lumbar region without neurogenic claudication Radiculopathy, lumbar region Epidural Steroid Injection - Transforaminal Approach (TFESI) under fluoroscopic guidance LEFT-SIDED at S1 and L4-5 Procedures NJX AA&/STRD TFRML EPI LUMBAR/SACRAL 1 LEVEL NJX AA&/STRD TFRML EPI LUMBAR/SACRAL EA ADDL PROCEDURE Jackson Sumner MD [address] [place] [address] Jackson Sumner MD [address] [facility] [address] [place] [address] Referral ID Status Reason Start Date Expiration Date Visits Re quested Visits Authorized [id number] Closed 03/10/2023 03/09/2024 1 1 Reason Onset [...] injection Specialty Diagnoses / Procedures Referred By [facility] Referred To Contact Pain Management / PAIN MANAGEMENT Diagnoses Bilateral primary osteoarthritis of knee Knee Joint Injection (Steroid) under ultrasound guidance LEFT-SIDED Procedures ARTHROCENTESIS ASPIR&/INJ MAJOR JT/BURSA W/US PROCEDURE 20 Jackson Sumner MD [address] [facility] [address] [address] Jackson Sumner MD [address] [facility] [address] [facility] [address] [place] [address] Referral ID Status Reason Start Date Expiration Date Visits Re quested Visits Authorized [id number] Closed 03/10/2023 03/09/2024 1 1 Reason Comments [...] PAIN Specialty Diagnoses / Procedures Referred By Contac t Referred To Contact Pain Management / PAIN MANAGEMENT Diagnoses Bilateral primary osteoarthritis of knee Right genicular nerve block Procedures FLUOR NEEDLE/CATH SPINE/PARASPINAL DX/THER ADDON INJECTION AA&/STRD OTHER PERIPHERAL NERVE/BRANCH PROCEDURE Aj Graham, 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 ENGINEER.PLATEMAKER [address] [address] Danii Roca MD [address] [place] [address] Referral ID Status Reason Start Date Expiration Date Visits Re quested Visits Authorized [id number] Closed 07/17/2023 10/15/2023 1 1 Reason Comments [...] NEUROLYTIC AGENT OTHER PERIPHERAL NERVE PROCEDURE 20 Aj Graham, 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 ENGINEER.PLATEMAKER [address] [place] [address] Jackson Sumner MD [address] [address] Referral ID Status Reason Start Date Expiration Date Visits Re quested Visits Authorized [id number] Closed 07/25/2023 03/09/2024 1 1 Reason Comments Medicare Wellness Exam Reason Comments Injections Reason Comments Follow Up Back radiating to le ft thigh, knee and ankle Back Pain Lower Reason Comments Medication Problem Reason Comments ER F/U H Reason Comments Hospital F/U [facility] Reason Onset Date Comments Transition Of [...] ADDL PROCEDURE 20 Jackson Sumner MD [address] [address] Danii Roca MD, PhD [address] [place] [address] Referral ID Status Reason Start Date Expiration Date V isits Requested Visits Authorized [id number] New Request 11/21/2023 02/19/2024 1 1 Reason [...] CANAL THORACIC W/O CONTRAST MATRL Aj Graham APRN.PLATEMAKER [address] [place] [address] [place] [address] Referral ID Status Reason Start Date Expiration Date V isits Requested Visits Authorized [id number] Closed Auto-Generate d Referral 12/11/2023 01/09/2025 1 [...] W/IMG [place] [address] [place] [address] Danii Roca MD, PhD [address] [place] [address] Referral ID Status Reason Start Date Expiration Date Visits Re quested Visits Authorized [id number] Closed 01/30/2024 04/29/2024 1 1 Reason Onset [...] LEVEL PROCEDURE 20 Danii Roca MD, PhD [address] [place] [address] Danii Roca MD, PhD [address] [place] [address] Referral ID Status Reason Start Date Expiration Date Visits Re quested Visits Authorized [id number] Closed 03/10/2024 03/09/2025 1 1 Reason Onset [...] (ICD-10-CM)] Comments: SCS trial x2 leads (Medtronic, [address]46 x2) Procedures PRQ IMPLTJ NSTIM ELECTRODE ARRAY EPIDURAL PROCEDURE 30 Danii Roca MD, PhD [address] [place] [address] Phone: tel: fax: Danii Roca MD, PhD [address] [place] [address] Phone: tel: fax: Referral ID Status Reason Start Date Expiration Date Visits Re quested Visits Authorized [id number] Closed 04/27/2024 03/09/2025 1 1 Reason Comments [...] NECK REAL TIME IMGE Juan Brumfield MD [address] [place] [address] Phone: tel: fax: [place] [address] Referral ID Status Reason Start Date Expiration Date V isits Requested Visits Authorized [id number] Closed Auto-Generate d Referral 09/17/2024 10/17/2025 1 1 Reason Onset Date Comments Refill Request 11/17/2024 Source Comments (unrecognize d section and content) In the event this informatio n is protected by the Federal Confidentiality of Alcohol and Drug Abuse Patient Records regulations: The Federal rules restrict any use of the information to criminally investigate or prosecute any alcohol or drug abuse patient.[facility] the event this information is protected by the Federal Confidentiality of Alcohol and Drug Abuse Patient Records regulations: The Federal rules restrict any use of the information to criminally investigate or prosecute any alcohol or drug abuse patient.[facility] the event this information is protected by the Federal Confidentiality of Alcohol and Drug Abuse Patient Records regulations: The Federal rules restrict any use of the information to criminally investigate or prosecute any alcohol or drug abuse patient.[facility] the event this information is protected by the Federal Confidentiality of Alcohol and Drug Abuse Patient Records regulations: The Federal rules restrict any use of the information to criminally investigate or prosecute any alcohol or drug abuse patient.[facility] the event this information is protected by the Federal Confidentiality of Alcohol and Drug Abuse Patient Records regulations: The Federal rules restrict any use of the information to criminally investigate or prosecute any alcohol or drug abuse patient.[facility] the event this information is protected by the Federal Confidentiality of Alcohol and Drug Abuse Patient Records regulations: The Federal rules restrict any use of the information to criminally investigate or prosecute any alcohol or drug abuse patient.[facility] the event this information is protected by the Federal Confidentiality of Alcohol and Drug Abuse Patient Records regulations: The Federal rules restrict any use of the information to criminally investigate or prosecute any alcohol or drug abuse patient.[facility] the event this information is protected by the Federal Confidentiality of Alcohol and Drug Abuse Patient Records regulations: The Federal rules restrict any use of the information to criminally investigate or prosecute any alcohol or drug abuse patient.[facility] the event this information is protected by the Federal Confidentiality of Alcohol and Drug Abuse Patient Records regulations: The Federal rules restrict any use of the information to criminally investigate or prosecute any alcohol or drug abuse patient.[facility] the event this information is protected by the Federal Confidentiality of Alcohol and Drug Abuse Patient Records regulations: The Federal rules restrict any use of the information to criminally investigate or prosecute any alcohol or drug abuse patient.[facility] the event this information is protected by the Federal Confidentiality of Alcohol and Drug Abuse Patient Records regulations: The Federal rules restrict any use of the information to criminally investigate or prosecute any alcohol or drug abuse patient.[facility] the event this information is protected by the Federal Confidentiality of Alcohol and Drug Abuse Patient Records regulations: The Federal rules restrict any use of the information to criminally investigate or prosecute any alcohol or drug abuse patient.[facility] the event this information is protected by the Federal Confidentiality of Alcohol and Drug Abuse Patient Records regulations: The Federal rules restrict any use of the information to criminally investigate or prosecute any alcohol or drug abuse patient.[facility] the event this information is protected by the Federal Confidentiality of Alcohol and Drug Abuse Patient Records regulations: The Federal rules restrict any use of the information to criminally investigate or prosecute any alcohol or drug abuse patient.[facility] the event this information is protected by the Federal Confidentiality of Alcohol and Drug Abuse Patient Records regulations: The Federal rules restrict any use of the information to criminally investigate or prosecute any alcohol or drug abuse patient.[facility] the event this information is protected by the Federal Confidentiality of Alcohol and Drug Abuse Patient Records regulations: The Federal rules restrict any use of the information to criminally investigate or prosecute any alcohol or drug abuse patient.[facility] the event this information is protected by the Federal Confidentiality of Alcohol and Drug Abuse Patient Records regulations: The Federal rules restrict any use of the information to criminally investigate or prosecute any alcohol or drug abuse patient.[facility] the event this information is protected by the Federal Confidentiality of Alcohol and Drug Abuse Patient Records regulations: The Federal rules restrict any use of the information to criminally investigate or prosecute any alcohol or drug abuse patient.[facility] the event this information is protected by the Federal Confidentiality of Alcohol and Drug Abuse Patient Records regulations: The Federal rules restrict any use of the information to criminally investigate or prosecute any alcohol or drug abuse patient.[facility] the event this information is protected by the Federal Confidentiality of Alcohol and Drug Abuse Patient Records regulations: The Federal rules restrict any use of the information to criminally investigate or prosecute any alcohol or drug abuse patient.[facility] the event this information is protected by the Federal Confidentiality of Alcohol and Drug Abuse Patient Records regulations: The Federal rules restrict any use of the information to criminally investigate or prosecute any alcohol or drug abuse patient.[facility] the event this information is protected by the Federal Confidentiality of Alcohol and Drug Abuse Patient Records regulations: The Federal rules restrict any use of the information to criminally investigate or prosecute any alcohol or drug abuse patient.[facility]In the event this information is protected by the Federal Confidentiality of Alcohol and Drug Abuse Patient Records regulations: The Federal rules restrict any use of the information to criminally investigate or prosecute any alcohol or drug abuse patient.[facility]In the event this information is protected by the Federal Confidentiality of Alcohol and Drug Abuse Patient Records regulations: The Federal rules restrict any use of the information to criminally investigate or prosecute any alcohol or drug abuse patient.[facility]In the event this information is protected by the Federal Confidentiality of Alcohol and Drug Abuse Patient Records regulations: The Federal rules restrict any use of the information to criminally investigate or prosecute any alcohol or drug abuse patient.[facility]In the event this information is protected by the Federal Confidentiality of Alcohol and Drug Abuse Patient Records regulations: The Federal rules restrict any use of the information to criminally investigate or prosecute any alcohol or drug abuse patient.[facility]In the event this information is protected by the Federal Confidentiality of Alcohol and Drug Abuse Patient Records regulations: The Federal rules restrict any use of the information to criminally investigate or prosecute any alcohol or drug abuse patient.[facility]In the event this information is protected by the Federal Confidentiality of Alcohol and Drug Abuse Patient Records regulations: The Federal rules restrict any use of the information to criminally investigate or prosecute any alcohol or drug abuse patient.[facility]In the event this information is protected by the Federal Confidentiality of Alcohol and Drug Abuse Patient Records regulations: The Federal rules restrict any use of the information to criminally investigate or prosecute any alcohol or drug abuse patient.[facility] HospitalIn the event this information is protected by the Federal Confidentiality of Alcohol and Drug Abuse Patient Records regulations: The Federal rules restrict any use of the information to criminally investigate or prosecute any alcohol or drug abuse patient.[facility] HospitalIn the event this information is protected by the Federal Confidentiality of Alcohol and Drug Abuse Patient Records regulations: The Federal rules restrict any use of the information to criminally investigate or prosecute any alcohol or drug abuse patient.[facility] HospitalIn the event this information is protected by the Federal Confidentiality of Alcohol and Drug Abuse Patient Records regulations: The Federal rules restrict any use of the information to criminally investigate or prosecute any alcohol or drug abuse patient.[facility] HospitalIn the event this information is protected by the Federal Confidentiality of Alcohol and Drug Abuse Patient Records regulations: The Federal rules restrict any use of the information to criminally investigate or prosecute any alcohol or drug abuse patient.[facility] HospitalIn the event this information is protected by the Federal Confidentiality of Alcohol and Drug Abuse Patient Records regulations: The Federal rules restrict any use of the information to criminally investigate or prosecute any alcohol or drug abuse patient.[facility]In the event this information is protected by the Federal Confidentiality of Alcohol and Drug Abuse Patient Records regulations: The Federal rules restrict any use of the information to criminally investigate or prosecute any alcohol or drug abuse patient.[facility]In the event this information is protected by the Federal Confidentiality of Alcohol and Drug Abuse Patient Records regulations: The Federal rules restrict any use of the information to criminally investigate or prosecute any alcohol or drug abuse patient.[facility]In the event this information is protected by the Federal Confidentiality of Alcohol and Drug Abuse Patient Records regulations: The Federal rules restrict any use of the information to criminally investigate or prosecute any alcohol or drug abuse patient.[facility]In the event this information is protected by the Federal Confidentiality of Alcohol and Drug Abuse Patient Records regulations: The Federal rules restrict any use of the information to criminally investigate or prosecute any alcohol or drug abuse patient.[facility]In the event this information is protected by the Federal Confidentiality of Alcohol and Drug Abuse Patient Records regulations: The Federal rules restrict any use of the information to criminally investigate or prosecute any alcohol or drug abuse patient.[facility] HospitalIn the event this information is protected by the Federal Confidentiality of Alcohol and Drug Abuse Patient Records regulations: The Federal rules restrict any use of the information to criminally investigate or prosecute any alcohol or drug abuse patient.[facility]In the event this information is protected by the Federal Confidentiality of Alcohol and Drug Abuse Patient Records regulations: The Federal rules restrict any use of the information to criminally investigate or prosecute any alcohol or drug abuse patient.[facility] HospitalIn the event this information is protected by the Federal Confidentiality of Alcohol and Drug Abuse Patient Records regulations: The Federal rules restrict any use of the information to criminally investigate or prosecute any alcohol or drug abuse patient.[facility]In the event this information is protected by the Federal Confidentiality of Alcohol and Drug Abuse Patient Records regulations: The Federal rules restrict any use of the information to criminally investigate or prosecute any alcohol or drug abuse patient.[facility]In the event this information is protected by the Federal Confidentiality of Alcohol and Drug Abuse Patient Records regulations: The Federal rules restrict any use of the information to criminally investigate or prosecute any alcohol or drug abuse patient.[facility]In the event this information is protected by the Federal Confidentiality of Alcohol and Drug Abuse Patient Records regulations: The Federal rules restrict any use of the information to criminally investigate or prosecute any alcohol or drug abuse patient.[facility]In the event this information is protected by the Federal Confidentiality of Alcohol and Drug Abuse Patient Records regulations: The Federal rules restrict any use of the information to criminally investigate or prosecute any alcohol or drug abuse patient.[facility]In the event this information is protected by the Federal Confidentiality of Alcohol and Drug Abuse Patient Records regulations: The Federal rules restrict any use of the information to criminally investigate or prosecute any alcohol or drug abuse patient.[facility]In the event this information is protected by the Federal Confidentiality of Alcohol and Drug Abuse Patient Records regulations: The Federal rules restrict any use of the information to criminally investigate or prosecute any alcohol or drug abuse patient.[facility]In the event this information is protected by the Federal Confidentiality of Alcohol and Drug Abuse Patient Records regulations: The Federal rules restrict any use of the information to criminally investigate or prosecute any alcohol or drug abuse patient.[facility]In the event this information is protected by the Federal Confidentiality of Alcohol and Drug Abuse Patient Records regulations: The Federal rules restrict any use of the information to criminally investigate or prosecute any alcohol or drug abuse patient.[facility]In the event this information is protected by the Federal Confidentiality of Alcohol and Drug Abuse Patient Records regulations: The Federal rules restrict any use of the information to criminally investigate or prosecute any alcohol or drug abuse patient.[facility]In the event this information is protected by the Federal Confidentiality of Alcohol and Drug Abuse Patient Records regulations: The Federal rules restrict any use of the information to criminally investigate or prosecute any alcohol or drug abuse patient.[facility]In the event this information is protected by the Federal Confidentiality of Alcohol and Drug Abuse Patient Records regulations: The Federal rules restrict any use of the information to criminally investigate or prosecute any alcohol or drug abuse patient.[facility]In the event this information is protected by the Federal Confidentiality of Alcohol and Drug Abuse Patient Records regulations: The Federal rules restrict any use of the information to criminally investigate or prosecute any alcohol or drug abuse patient.[facility]In the event this information is protected by the Federal Confidentiality of Alcohol and Drug Abuse Patient Records regulations: The Federal rules restrict any use of the information to criminally investigate or prosecute any alcohol or drug abuse patient.[facility]In the event this information is protected by the Federal Confidentiality of Alcohol and Drug Abuse Patient Records regulations: The Federal rules restrict any use of the information to criminally investigate or prosecute any alcohol or drug abuse patient.[facility]In the event this information is protected by the Federal Confidentiality of Alcohol and Drug Abuse Patient Records regulations: The Federal rules restrict any use of the information to criminally investigate or prosecute any alcohol or drug abuse patient.[facility]In the event this information is protected by the Federal Confidentiality of Alcohol and Drug Abuse Patient Records regulations: The Federal rules restrict any use of the information to criminally investigate or prosecute any alcohol or drug abuse patient.[facility]In the event this information is protected by the Federal Confidentiality of Alcohol and Drug Abuse Patient Records regulations: The Federal rules restrict any use of the information to criminally investigate or prosecute any alcohol or drug abuse patient.[facility]In the event this information is protected by the Federal Confidentiality of Alcohol and Drug Abuse Patient Records regulations: The Federal rules restrict any use of the information to criminally investigate or prosecute any alcohol or drug abuse patient.[facility]In the event this information is protected by the Federal Confidentiality of Alcohol and Drug Abuse Patient Records regulations: The Federal rules restrict any use of the information to criminally investigate or prosecute any alcohol or drug abuse patient.[facility]In the event this information is protected by the Federal Confidentiality of Alcohol and Drug Abuse Patient Records regulations: The Federal rules restrict any use of the information to criminally investigate or prosecute any alcohol or drug abuse patient.[facility]In the event this information is protected by the Federal Confidentiality of Alcohol and Drug Abuse Patient Records regulations: The Federal rules restrict any use of the information to criminally investigate or prosecute any alcohol or drug abuse patient.[facility]In the event this information is protected by the Federal Confidentiality of Alcohol and Drug Abuse Patient Records regulations: The Federal rules restrict any use of the information to criminally investigate or prosecute any alcohol or drug abuse patient.[facility]In the event this information is protected by the Federal Confidentiality of Alcohol and Drug Abuse Patient Records regulations: The Federal rules restrict any use of the information to criminally investigate or prosecute any alcohol or drug abuse patient.[facility]In the event this information is protected by the Federal Confidentiality of Alcohol and Drug Abuse Patient Records regulations: The Federal rules restrict any use of the information to criminally investigate or prosecute any alcohol or drug abuse patient.[facility]In the event this information is protected by the Federal Confidentiality of Alcohol and Drug Abuse Patient Records regulations: The Federal rules restrict any use of the information to criminally investigate or prosecute any alcohol or drug abuse patient.[facility]In the event this information is protected by the Federal Confidentiality of Alcohol and Drug Abuse Patient Records regulations: The Federal rules restrict any use of the information to criminally investigate or prosecute any alcohol or drug abuse patient.[facility]In the event this information is protected by the Federal Confidentiality of Alcohol and Drug Abuse Patient Records regulations: The Federal rules restrict any use of the information to criminally investigate or prosecute any alcohol or drug abuse patient.[facility]In the event this information is protected by the Federal Confidentiality of Alcohol and Drug Abuse Patient Records regulations: The Federal rules restrict any use of the information to criminally investigate or prosecute any alcohol or drug abuse patient.[facility]In the event this information is protected by the Federal Confidentiality of Alcohol and Drug Abuse Patient Records regulations: The Federal rules restrict any use of the information to criminally investigate or prosecute any alcohol or drug abuse patient.[facility]In the event this information is protected by the Federal Confidentiality of Alcohol and Drug Abuse Patient Records regulations: The Federal rules restrict any use of the information to criminally investigate or prosecute any alcohol or drug abuse patient.[facility]In the event this information is protected by the Federal Confidentiality of Alcohol and Drug Abuse Patient Records regulations: The Federal rules restrict any use of the information to criminally investigate or prosecute any alcohol or drug abuse patient.[facility]In the event this information is protected by the Federal Confidentiality of Alcohol and Drug Abuse Patient Records regulations: The Federal rules restrict any use of the information to criminally investigate or prosecute any alcohol or drug abuse patient.[facility]In the event this information is protected by the Federal Confidentiality of Alcohol and Drug Abuse Patient Records regulations: The Federal rules restrict any use of the information to criminally investigate or prosecute any alcohol or drug abuse patient.[facility]In the event this information is protected by the Federal Confidentiality of Alcohol and Drug Abuse Patient Records regulations: The Federal rules restrict any use of the information to criminally investigate or prosecute any alcohol or drug abuse patient.[facility]In the event this information is protected by the Federal Confidentiality of Alcohol and Drug Abuse Patient Records regulations: The Federal rules restrict any use of the information to criminally investigate or prosecute any alcohol or drug abuse patient.[facility]In the event this information is protected by the Federal Confidentiality of Alcohol and Drug Abuse Patient Records regulations: The Federal rules restrict any use of the information to criminally investigate or prosecute any alcohol or drug abuse patient.[facility]In the event this information is protected by the Federal Confidentiality of Alcohol and Drug Abuse Patient Records regulations: The Federal rules restrict any use of the information to criminally investigate or prosecute any alcohol or drug abuse patient.[facility]In the event this information is protected by the Federal Confidentiality of Alcohol and Drug Abuse Patient Records regulations: The Federal rules restrict any use of the information to criminally investigate or prosecute any alcohol or drug abuse patient.[facility]In the event this information is protected by the Federal Confidentiality of Alcohol and Drug Abuse Patient Records regulations: The Federal rules restrict any use of the information to criminally investigate or prosecute any alcohol or drug abuse patient.[facility]In the event this information is protected by the Federal Confidentiality of Alcohol and Drug Abuse Patient Records regulations: The Federal rules restrict any use of the information to criminally investigate or prosecute any alcohol or drug abuse patient.[facility]In the event this information is protected by the Federal Confidentiality of Alcohol and Drug Abuse Patient Records regulations: The Federal rules restrict any use of the information to criminally investigate or prosecute any alcohol or drug abuse patient.[facility]In the event this information is protected by the Federal Confidentiality of Alcohol and Drug Abuse Patient Records regulations: The Federal rules restrict any use of the information to criminally investigate or prosecute any alcohol or drug abuse patient.[facility]In the event this information is protected by the Federal Confidentiality of Alcohol and Drug Abuse Patient Records regulations: The Federal rules restrict any use of the information to criminally investigate or prosecute any alcohol or drug abuse patient.[facility]In the event this information is protected by the Federal Confidentiality of Alcohol and Drug Abuse Patient Records regulations: The Federal rules restrict any use of the information to criminally investigate or prosecute any alcohol or drug abuse patient.[facility]In the event this information is protected by the Federal Confidentiality of Alcohol and Drug Abuse Patient Records regulations: The Federal rules restrict any use of the information to criminally investigate or prosecute any alcohol or drug abuse patient.[facility]In the event this information is protected by the Federal Confidentiality of Alcohol and Drug Abuse Patient Records regulations: The Federal rules restrict any use of the information to criminally investigate or prosecute any alcohol or drug abuse patient.[facility]In the event this information is protected by the Federal Confidentiality of Alcohol and Drug Abuse Patient Records regulations: The Federal rules restrict any use of the information to criminally investigate or prosecute any alcohol or drug abuse patient.[facility]In the event this information is protected by the Federal Confidentiality of Alcohol and Drug Abuse Patient Records regulations: The Federal rules restrict any use of the information to criminally investigate or prosecute any alcohol or drug abuse patient.[facility]In the event this information is protected by the Federal Confidentiality of Alcohol and Drug Abuse Patient Records regulations: The Federal rules restrict any use of the information to criminally investigate or prosecute any alcohol or drug abuse patient.[facility]In the event this information is protected by the Federal Confidentiality of Alcohol and Drug Abuse Patient Records regulations: The Federal rules restrict any use of the information to criminally investigate or prosecute any alcohol or drug abuse patient.[facility]In the event this information is protected by the Federal Confidentiality of Alcohol and Drug Abuse Patient Records regulations: The Federal rules restrict any use of the information to criminally investigate or prosecute any alcohol or drug abuse patient.[facility]In the event this information is protected by the Federal Confidentiality of Alcohol and Drug Abuse Patient Records regulations: The Federal rules restrict any use of the information to criminally investigate or prosecute any alcohol or drug abuse patient.[facility]In the event this information is protected by the Federal Confidentiality of Alcohol and Drug Abuse Patient Records regulations: The Federal rules restrict any use of the information to criminally investigate or prosecute any alcohol or drug abuse patient.[facility]In the event this information is protected by the Federal Confidentiality of Alcohol and Drug Abuse Patient Records regulations: The Federal rules restrict any use of the information to criminally investigate or prosecute any alcohol or drug abuse patient.[facility]In the event this information is protected by the Federal Confidentiality of Alcohol and Drug Abuse Patient Records regulations: The Federal rules restrict any use of the information to criminally investigate or prosecute any alcohol or drug abuse patient.[facility]In the event this information is protected by the Federal Confidentiality of Alcohol and Drug Abuse Patient Records regulations: The Federal rules restrict any use of the information to criminally investigate or prosecute any alcohol or drug abuse patient.[facility]In the event this information is protected by the Federal Confidentiality of Alcohol and Drug Abuse Patient Records regulations: The Federal rules restrict any use of the information to criminally investigate or prosecute any alcohol or drug abuse patient.[facility]In the event this information is protected by the Federal Confidentiality of Alcohol and Drug Abuse Patient Records regulations: The Federal rules restrict any use of the information to criminally investigate or prosecute any alcohol or drug abuse patient.[facility]In the event this information is protected by the Federal Confidentiality of Alcohol and Drug Abuse Patient Records regulations: The Federal rules restrict any use of the information to criminally investigate or prosecute any alcohol or drug abuse patient.[facility]In the event this information is protected by the Federal Confidentiality of Alcohol and Drug Abuse Patient Records regulations: The Federal rules restrict any use of the information to criminally investigate or prosecute any alcohol or drug abuse patient.[facility]In the event this information is protected by the Federal Confidentiality of Alcohol and Drug Abuse Patient Records regulations: The Federal rules restrict any use of the information to criminally investigate or prosecute any alcohol or drug abuse patient.[facility]In the event this information is protected by the Federal Confidentiality of Alcohol and Drug Abuse Patient Records regulations: The Federal rules restrict any use of the information to criminally investigate or prosecute any alcohol or drug abuse patient.[facility]In the event this information is protected by the Federal Confidentiality of Alcohol and Drug Abuse Patient Records regulations: The Federal rules restrict any use of the information to criminally investigate or prosecute any alcohol or drug abuse patient.[facility] HospitalIn the event this information is protected by the Federal Confidentiality of Alcohol and Drug Abuse Patient Records regulations: The Federal rules restrict any use of the information to criminally investigate or prosecute any alcohol or drug abuse patient.[facility] HospitalIn the event this information is protected by the Federal Confidentiality of Alcohol and Drug Abuse Patient Records regulations: The Federal rules restrict any use of the information to criminally investigate or prosecute any alcohol or drug abuse patient.[facility] HospitalIn the event this information is protected by the Federal Confidentiality of Alcohol and Drug Abuse Patient Records regulations: The Federal rules restrict any use of the information to criminally investigate or prosecute any alcohol or drug abuse patient.[facility] HospitalIn the event this information is protected by the Federal Confidentiality of Alcohol and Drug Abuse Patient Records regulations: The Federal rules restrict any use of the information to criminally investigate or prosecute any alcohol or drug abuse patient.[facility] HospitalIn the event this information is protected by the Federal Confidentiality of Alcohol and Drug Abuse Patient Records regulations: The Federal rules restrict any use of the information to criminally investigate or prosecute any alcohol or drug abuse patient.[facility] HospitalIn the event this information is protected by the Federal Confidentiality of Alcohol and Drug Abuse Patient Records regulations: The Federal rules restrict any use of the information to criminally investigate or prosecute any alcohol or drug abuse patient.[facility] HospitalIn the event this information is protected by the Federal Confidentiality of Alcohol and Drug Abuse Patient Records regulations: The Federal rules restrict any use of the information to criminally investigate or prosecute any alcohol or drug abuse patient.[facility] HospitalIn the event this information is protected by the Federal Confidentiality of Alcohol and Drug Abuse Patient Records regulations: The Federal rules restrict any use of the information to criminally investigate or prosecute any alcohol or drug abuse patient.[facility] HospitalIn the event this information is protected by the Federal Confidentiality of Alcohol and Drug Abuse Patient Records regulations: The Federal rules restrict any use of the information to criminally investigate or prosecute any alcohol or drug abuse patient.[facility] HospitalIn the event this information is protected by the Federal Confidentiality of Alcohol and Drug Abuse Patient Records regulations: The Federal rules restrict any use of the information to criminally investigate or prosecute any alcohol or drug abuse patient.[facility] HospitalIn the event this information is protected by the Federal Confidentiality of Alcohol and Drug Abuse Patient Records regulations: The Federal rules restrict any use of the information to criminally investigate or prosecute any alcohol or drug abuse patient.[facility] HospitalIn the event this information is protected by the Federal Confidentiality of Alcohol and Drug Abuse Patient Records regulations: The Federal rules restrict any use of the information to criminally investigate or prosecute any alcohol or drug abuse patient.[facility] HospitalIn the event this information is protected by the Federal Confidentiality of Alcohol and Drug Abuse Patient Records regulations: The Federal rules restrict any use of the information to criminally investigate or prosecute any alcohol or drug abuse patient.[facility] HospitalIn the event this information is protected by the Federal Confidentiality of Alcohol and Drug Abuse Patient Records regulations: The Federal rules restrict any use of the information to criminally investigate or prosecute any alcohol or drug abuse patient.[facility] HospitalIn the event this information is protected by the Federal Confidentiality of Alcohol and Drug Abuse Patient Records regulations: The Federal rules restrict any use of the information to criminally investigate or prosecute any alcohol or drug abuse patient.[facility] HospitalIn the event this information is protected by the Federal Confidentiality of Alcohol and Drug Abuse Patient Records regulations: The Federal rules restrict any use of the information to criminally investigate or prosecute any alcohol or drug abuse patient.[facility] HospitalIn the event this information is protected by the Federal Confidentiality of Alcohol and Drug Abuse Patient Records regulations: The Federal rules restrict any use of the information to criminally investigate or prosecute any alcohol or drug abuse patient.[facility] HospitalIn the event this information is protected by the Federal Confidentiality of Alcohol and Drug Abuse Patient Records regulations: The Federal rules restrict any use of the information to criminally investigate or prosecute any alcohol or drug abuse patient.[facility] HospitalIn the event this information is protected by the Federal Confidentiality of Alcohol and Drug Abuse Patient Records regulations: The Federal rules restrict any use of the information to criminally investigate or prosecute any alcohol or drug abuse patient.[facility] HospitalIn the event this information is protected by the Federal Confidentiality of Alcohol and Drug Abuse Patient Records regulations: The Federal rules restrict any use of the information to criminally investigate or prosecute any alcohol or drug abuse patient.[facility] HospitalIn the event this information is protected by the Federal Confidentiality of Alcohol and Drug Abuse Patient Records regulations: The Federal rules restrict any use of the information to criminally investigate or prosecute any alcohol or drug abuse patient.[facility] HospitalIn the event this information is protected by the Federal Confidentiality of Alcohol and Drug Abuse Patient Records regulations: The Federal rules restrict any use of the information to criminally investigate or prosecute any alcohol or drug abuse patient.[facility] HospitalIn the event this information is protected by the Federal Confidentiality of Alcohol and Drug Abuse Patient Records regulations: The Federal rules restrict any use of the information to criminally investigate or prosecute any alcohol or drug abuse patient.[facility] HospitalIn the event this information is protected by the Federal Confidentiality of Alcohol and Drug Abuse Patient Records regulations: The Federal rules restrict any use of the information to criminally investigate or prosecute any alcohol or drug abuse patient.[facility] HospitalIn the event this information is protected by the Federal Confidentiality of Alcohol and Drug Abuse Patient Records regulations: The Federal rules restrict any use of the information to criminally investigate or prosecute any alcohol or drug abuse patient.[facility] HospitalIn the event this information is protected by the Federal Confidentiality of Alcohol and Drug Abuse Patient Records regulations: The Federal rules restrict any use of the information to criminally investigate or prosecute any alcohol or drug abuse patient.[facility] HospitalIn the event this information is protected by the Federal Confidentiality of Alcohol and Drug Abuse Patient Records regulations: The Federal rules restrict any use of the information to criminally investigate or prosecute any alcohol or drug abuse patient.[facility] HospitalIn the event this information is protected by the Federal Confidentiality of Alcohol and Drug Abuse Patient Records regulations: The Federal rules restrict any use of the information to criminally investigate or prosecute any alcohol or drug abuse patient.[facility] HospitalIn the event this information is protected by the Federal Confidentiality of Alcohol and Drug Abuse Patient Records regulations: The Federal rules restrict any use of the information to criminally investigate or prosecute any alcohol or drug abuse patient.[facility] Care Teams (unrecognized sec tion and content) Speech Language Specialist Relationship Specialty Start Date End Date Juan Spann MD [address] [place], [place] [id number] PCP - General Family Practice 10/18/14 Speech Language Specialist Relationship Specialty Start Date End Date Juan Spann MD [facility] [place] [address] PCP - General Family Practice 10/18/14 Speech Language Specialist Relationship Specialty Start Date End Date Juan Spann MD [facility] [place] [address] PCP - General Family Practice 10/18/14 Speech Language Specialist Relationship Specialty Start Date End Date Juan Spann MD [address] [place] [address] PCP - General Family Practice 10/18/14 Speech Language Specialist Relationship Specialty Start Date End Date Juan Spann MD [address] [facility] [place] [address] PCP - General Family Practice 10/18/14 Speech Language Specialist Relationship Specialty Start Date End Date Juan Spann MD [address] [facility] [place] [address] PCP - General Family Practice 10/18/14 Speech Language Specialist Relationship Specialty Start Date End Date Juan Spann MD [address] [facility] [place] [address] PCP - General Family Practice 10/18/14 Speech Language Specialist Relationship Specialty Start Date End Date Juan Spann MD [address] [facility] [place] [address] PCP - General Family Medicine 10/18/14 Speech Language Specialist Relationship Specialty Start Date End Date Juan Spann MD [address] [place] [place] [address] PCP - General Family Medicine 10/18/14 Speech Language Specialist Relationship Specialty Start Date End Date Juan Spann MD [address] [facility] [place] [address] PCP - General Family Medicine 10/18/14 Speech Language Specialist Relationship Specialty Start Date End Date Juan Spann MD [address] [facility] [place] [address] PCP - General Family Medicine 10/18/14 Speech Language Specialist Relationship Specialty Start Date End Date Juan Spann MD [address] [facility] [place] [address] PCP - General Family Medicine 10/18/14 Speech Language Specialist Relationship Specialty Start Date End Date Juan Spann MD [address] [facility] [place] [address] PCP - General Family Medicine 10/18/14 Speech Language Specialist Relationship Specialty Start Date End Date Juan Spann MD [address] [facility] [place] [address] PCP - General Family Medicine 10/18/14 Speech Language Specialist Relationship Specialty Start Date End Date Juan Spann MD [address] [facility] [place] [address] PCP - General Family Medicine 10/18/14 Speech Language Specialist Relationship Specialty Start Date End Date Juan Spann MD [facility] [place] [address] PCP - General Family Medicine 10/18/14 Speech Language Specialist Relationship Specialty Start Date End Date Juan Spann MD [address] [facility] [place] [address] PCP - General Family Medicine 10/18/14 Speech Language Specialist Relationship Specialty Start Date End Date Juan Spann MD [address] [facility] [place] [address] PCP - General Family Medicine 10/18/14 Speech Language Specialist Relationship Specialty Start Date End Date Juan Spann MD [address] [facility] [place] [address] PCP - General Family Medicine 10/18/14 Speech Language Specialist Relationship Specialty Start Date End Date Juan Spann MD [address] [facility] [place] [address] PCP - General Family Medicine 10/18/14 Speech Language Specialist Relationship Specialty Start Date End Date Juan Spann MD [address] [facility] [place] [address] PCP - General Family Medicine 10/18/14 Speech Language Specialist Relationship Specialty Start Date End Date Juan Spann MD [address] [place] [address] PCP - General Family Medicine 10/18/14 Speech Language Specialist Relationship Specialty Start Date End Date Juan Spann MD [address] [place] [address] PCP - General Family Medicine 10/18/14 Speech Language Specialist Relationship Specialty Start Date End Date Juan Spann MD [address] [place] [address] PCP - General Family Medicine 10/18/14 Speech Language Specialist Relationship Specialty Start Date End Date Juan Spann MD [address] [place] [address] PCP - General Family Medicine 10/18/14 Speech Language Specialist Relationship Specialty Start Date End Date Juan Spann MD [address] [place] [address] PCP - General Family Medicine 10/18/14 Speech Language Specialist Relationship Specialty Start Date End Date Juan Spann MD [address] [place] [address] PCP - General Family Medicine 10/18/14 Speech Language Specialist Relationship Specialty Start Date End Date Juan Spann MD [address] [place] [address] PCP - General Family Medicine 10/18/14 Speech Language Specialist Relationship Specialty Start Date End Date Juan Spann MD [address] [place] [address] PCP - General Family Medicine 10/18/14 Speech Language Specialist Relationship Specialty Start Date End Date Juan Spann MD [address] [place] [address] PCP - General Family Medicine 10/18/14 Speech Language Specialist Relationship Specialty Start Date End Date Juan Spann MD [address] [place] [address] PCP - General Family Medicine 10/18/14 Speech Language Specialist Relationship Specialty Start Date End Date Juan Spann MD [address] [place] [address] PCP - General Family Medicine 10/18/14 Speech Language Specialist Relationship Specialty Start Date End Date Juan Spann MD [address] [place] [address] PCP - General Family Medicine 10/18/14 Speech Language Specialist Relationship Specialty Start Date End Date Juan Spann MD [address] [place] [address] PCP - General Family Medicine 10/18/14 Speech Language Specialist Relationship Specialty Start Date End Date Juan Spann MD [address] [place] [address] PCP - General Family Medicine 10/18/14 Speech Language Specialist Relationship Specialty Start Date End Date Juan Spann MD [address] [place] [address] PCP - General Family Medicine 10/18/14 Speech Language Specialist Relationship Specialty Start Date End Date Juan Spann MD [address] [place] [address] PCP - General Family Medicine 10/18/14 Speech Language Specialist Relationship Specialty Start Date End Date Juan Spann MD [address] [place] [address] PCP - General Family Medicine 10/18/14 Speech Language Specialist Relationship Specialty Start Date End Date Juan Spann MD [address] [place] [address] PCP - General Family Medicine 10/18/14 Speech Language Specialist Relationship Specialty Start Date End Date Juan Spann MD [address] [place] [address] PCP - General Family Medicine 10/18/14 Speech Language Specialist Relationship Specialty Start Date End Date Juan Spann MD [address] [place] [address] PCP - General Family Medicine 10/18/14 Speech Language Specialist Relationship Specialty Start Date End Date Juan Spann MD [address] [place] [address] PCP - General Family Medicine 10/18/14 Speech Language Specialist Relationship Specialty Start Date End Date Juan Spann MD [address] [place] [address] PCP - General Family Medicine 10/18/14 Speech Language Specialist Relationship Specialty Start Date End Date Juan Spann MD [address] [place] [address] PCP - General Family Medicine 10/18/14 Speech Language Specialist Relationship Specialty Start Date End Date Juan Spann MD [address] [place] [address] PCP - General Family Medicine 10/18/14 Speech Language Specialist Relationship Specialty Start Date End Date Juan Spann MD [address] [place] [address] PCP - General Family Medicine 10/18/14 Speech Language Specialist Relationship Specialty Start Date End Date Juan Spann MD [address] [place] [address] PCP - General Family Medicine 10/18/14 Speech Language Specialist Relationship Specialty Start Date End Date Juan Spann MD [address] [place] [address] PCP - General Family Medicine 10/18/14 Speech Language Specialist Relationship Specialty Start Date End Date Juan Spann MD [address] [place] [address] PCP - General Family Medicine 10/18/14 Speech Language Specialist Relationship Specialty Start Date End Date Juan Spann MD [address] [place] [address] PCP - General Family Medicine 10/18/14 Speech Language Specialist Relationship Specialty Start Date End Date Juan Spann MD [address] [place] [address] PCP - General Family Medicine 10/18/14 Speech Language Specialist Relationship Specialty Start Date End Date Juan Spann MD [address] [place] [address] PCP - General Family Medicine 10/18/14 Speech Language Specialist Relationship Specialty Start Date End Date Juan Spann MD [address] [facility] [place] [address] PCP - General Family Medicine 10/18/14 Zo Metcalf, RN [address] [place] [address] Primary Care Examination Grader 11/17/23 Speech Language Specialist Relationship Specialty Start Date End Date Juan Spann MD [address] [place] [address] PCP - General Family Medicine 10/18/14 Zo Metcalf, AUTUMN [address] [place] [address] Primary Care Examination Grader 11/17/23 Speech Language Specialist Relationship Specialty Start Date End Date Juan Spann MD [address] [place] [address] PCP - General Family Medicine 10/18/14 Speech Language Specialist Relationship Specialty Start Date End Date Juan Spann MD [address] [place] [address] PCP - General Family Medicine 10/18/14 Zo Metcalf, AUTUMN [address] [place] [address] Primary Care Examination Grader 11/17/23 Speech Language Specialist Relationship Specialty Start Date End Date Juan Spann MD [address] [place] [address] PCP - General Family Medicine 10/18/14 oZ Metcalf, AUTUMN [address] [place] [address] Primary Care Examination Grader 11/17/23 Speech Language Specialist Relationship Specialty Start Date End Date Juan Spann MD [address] [place] [address] PCP - General Family Medicine 10/18/14 Speech Language Specialist Relationship Specialty Start Date End Date Juan Spann MD [address] [place] [address] PCP - General Family Medicine 10/18/14 Zo Metcalf, AUTUMN [address] [place] [address] Primary Care Examination Grader 11/17/23 Speech Language Specialist Relationship Specialty Start Date End Date Juan Spann MD [address] [place] [address] PCP - General Family Medicine 10/18/14 Zo Metcalf, AUTUMN [address] [place] [address] Primary Care Examination Grader 11/17/23 Speech Language Specialist Relationship Specialty Start Date End Date Juan Spann MD [address] [place] [address] PCP - General Family Medicine 10/18/14 Zo Metcalf, RN [address] [place] [address] Primary Care Examination Grader 11/17/23 Speech Language Specialist Relationship Specialty Start Date End Date Juan Spann MD [address] [place] [address] PCP - General Family Medicine 10/18/14 Zo Metcalf, AUTUMN [address] [place] [address] Primary Care Examination Grader 11/17/23 Speech Language Specialist Relationship Specialty Start Date End Date Juan Spann MD [address] [place] [address] PCP - General Family Medicine 10/18/14 Zo Metcalf, AUTUMN [address] [place] [address] Primary Care Examination Grader 11/17/23 Speech Language Specialist Relationship Specialty Start Date End Date Juan Spann MD [address] [place] [address] PCP - General Family Medicine 10/18/14 Speech Language Specialist Relationship Specialty Start Date End Date Juan Spann MD [address] [place] [address] PCP - General Family Medicine 10/18/14 Speech Language Specialist Relationship Specialty Start Date End Date Juan Spann MD [address] [place] [address] PCP - General Family Medicine 10/18/14 Speech Language Specialist Relationship Specialty Start Date End Date Juan Spann MD [address] [place] [address] PCP - General Family Medicine 10/18/14 Speech Language Specialist Relationship Specialty Start Date End Date Juan Spann MD [address] [place] [address] PCP - General Family Medicine 10/18/14 Speech Language Specialist Relationship Specialty Start Date End Date Juan Spann MD [address] [place] [address] PCP - General Family Medicine 10/18/14 Speech Language Specialist Relationship Specialty Start Date End Date Juan Spann MD [address] [place] [address] PCP - General Family Medicine 10/18/14 Speech Language Specialist Relationship Specialty Start Date End Date Juan Spann MD [address] [facility] [place] [address] PCP - General Family Medicine 10/18/14 Sujatha Saldana, ERIN.PLATEMAKER [address] [place] [address] [facility] 02/14/24 Destini Lay PA-C [address] [facility] [place] [address] [facility] 02/14/24 Speech Language Specialist Relationship Specialty Start Date End Date Juan Spann MD [address] [facility] [place] [address] PCP - General Family Medicine 10/18/14 Sujatha Saldana, 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 ENGINEER.PLATEMAKER [address] [place] [address] [facility] 02/14/24 Destini Lay PA-C [address] [facility] [place] [address] [facility] 02/14/24 Speech Language Specialist Relationship Specialty Start Date End Date Juan Spann MD [address] [facility] [place] [address] PCP - General Family Medicine 10/18/14 Sujatha Saldana, ERIN.PLATEMAKER [address] [place] [address] [facility] 02/14/24 Destini Lay PA-C [address] [place] [address] [facility] 02/14/24 Speech Language Specialist Relationship Specialty Start Date End Date Juan Spann MD [address] [place] [address] PCP - General Family Medicine 10/18/14 Sujatha Saldana, ERIN.PLATEMAKER [address] [place] [address] [facility] 02/14/24 Destini Lay PA-C [address] [place] [address] [facility] 02/14/24 Speech Language Specialist Relationship Specialty Start Date End Date Juan Spann MD [address] [place] [address] PCP - General Family Medicine 10/18/14 Sujatha Saldana, ERIN.PLATEMAKER [address] [place] [address] [facility] 02/14/24 Destini Lay PA-C [address] [place] [address] [facility] 02/14/24 Speech Language Specialist Relationship Specialty Start Date End Date Juan Spann MD [address] [place] [address] PCP - General Family Medicine 10/18/14 Sujatha Saldana, 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 ENGINEER.PLATEMAKER [address] [place] [address] [facility] 02/14/24 Destini Lay PA-C [address] [facility] [place] [address] [facility] 02/14/24 Speech Language Specialist Relationship Specialty Start Date End Date Juan Spann MD [address] [facility] [place] [address] PCP - General Family Medicine 10/18/14 Sujatha Saldana APRN.PLATEMAKER [address] [place] [address] [facility] 02/14/24 Destini Lay PA-C [address] [place] [address] [facility] 02/14/24 Speech Language Specialist Relationship Specialty Start Date End Date Juan Spann MD [address] [place] [address] PCP - General Family Medicine 10/18/14 Sujatha Saldana, ERIN.PLATEMAKER [address] [place] [address] [facility] 02/14/24 Destini Lay PA-C [address] [facility] [place] [address] [facility] 02/14/24 Speech Language Specialist Relationship Specialty Start Date End Date Juan Spann MD [address] [facility] [place] [address] PCP - General Family Medicine 10/18/14 Sujatha Saldana APRN.PLATEMAKER [address] [place] [address] [facility] 02/14/24 Destini Lay PA-C [address] [place] [address] [facility] 02/14/24 Speech Language Specialist Relationship Specialty Start Date End Date Juan Spann MD [address] [place] [address] PCP - General Family Medicine 10/18/14 Sujatha Saldana, ERIN.PLATEMAKER [address] [place] [address] [facility] 02/14/24 Destini Lay PA-C [address] [place] [address] [facility] 02/14/24 Speech Language Specialist Relationship Specialty Start Date End Date Juan Spann MD [address] [place] [address] PCP - General Family Medicine 10/18/14 Sujatha Saldana, 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 ENGINEER.PLATEMAKER [address] [place] [address] [facility] 02/14/24 Destini Lay PA-C [address] [place] [address] [facility] 02/14/24 Speech Language Specialist Relationship Specialty Start Date End Date Juan Spann MD [address] [place] [address] PCP - General Family Medicine 10/18/14 Sujatha Saldana APRN.PLATEMAKER [address] [place] [address] [facility] 02/14/24 Destini Lay PA-C [address] [place] [address] [facility] 02/14/24 Speech Language Specialist Relationship Specialty Start Date End Date Juan Spann MD [address] [place] [address] PCP - General Family Medicine 10/18/14 Sujatha Saldana, ERIN.PLATEMAKER [address] [place] [address] [facility] 02/14/24 Destini Lay PA-C [address] [place] [address] [facility]/14[facility] Speech Language Specialist Relationship Specialty Start Date End Date Juan Spann MD [address] [place] [address] PCP - General Family Medicine 10/18/14 Sujatha Saldana, 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 ENGINEER.PLATEMAKER [address] [place] [address] [facility] 02/14/24 Destini Lay PA-C [address] [place] [address] [facility] 02/14/24 Speech Language Specialist Relationship Specialty Start Date End Date Juan Spann MD [address] [place] [address] PCP - General Family Medicine 10/18/14 Sujatha Saldana, ERIN.PLATEMAKER [address] [place] [address] [facility] 02/14/24 Destini Lay PA-C [address] [place] [address] [facility] 02/14/24 Speech Language Specialist Relationship Specialty Start Date End Date Juan Spann MD [address] [place] [address] PCP - General Family Medicine 06/14/24 Sujatha Saldana, 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 ENGINEER.PLATEMAKER [address] [place] [address] [facility] 02/14/24 Destini Lay PA-C [address] [place] [address] [facility] 02/14/24 Speech Language Specialist Relationship Specialty Start Date End Date Juan Spann MD [address] [place] [address] PCP - General Family Medicine 06/16/24 Speech Language Specialist Relationship Specialty Start Date End Date Juan Spann MD [address] [place] [address] PCP - General Family Medicine 06/16/24 Speech Language Specialist Relationship Specialty Start Date End Date Juan Spann MD [address] [place] [address] PCP - General Family Medicine 06/14/24 Sujatha Saldana APRN.PLATEMAKER [address] [place] [address] [facility] 02/14/24 Destini Lay PA-C [address] [place] [address] [facility] 02/14/24 Speech Language Specialist Relationship Specialty Start Date End Date Juan Spann MD [address] [place] [address] [address] [place] [address] PCP - General Family Medicine 06/16/24 Speech Language Specialist Relationship Specialty Start Date End Date Juan Spann MD [address] [place] [address] PCP - General Family Medicine 06/14/24 Sujatha Saldana APRN.PLATEMAKER [address] [place] [address] [facility] 08/09/24 Destini Lay PA-C [address] [place] [address] [facility] 08/09/24 Speech Language Specialist Relationship Specialty Start Date End Date Juan Spann MD [address] [place] [address] PCP - General Family Medicine 06/14/24 Sujatha Saldana APRN.PLATEMAKER [address] [place] [address] [facility] 08/09/24 Destini Lay PA-C [address] [place] [address] [phone] [facility] 08/09/24 Speech Language Specialist Relationship Specialty Start Date End Date Juan Spann MD [address] [place] [address] PCP - General Family Medicine 06/14/24 Sujatha Saldana APRN.PLATEMAKER [address] [place] [address] [facility] 08/09/24 Destini Lay PA-C [address] [place], [place] [id number] [facility] 08/09/24 Team Status: Active Member Role/Relationship Status Dates Dr. Juan Spann MD Primary care physician Active Team Status: Inactive Member Role/Relationship Status Dates Dr. Juan Spann MD Primary care physician Active Start: December 21, 2024 End: December 22, 2024 Dr. Tig[facility] Active Start: December 21, 2024 [...] physician Active Start: December 22, 2024 Dr. Tigre Downing [facility] Active Start: December 22, 2024 Dr. Rachael Crook MD Admitting physician Active Start: December 22, 2024 Dr. Rachael Crook MD Nurse Practitioner Active Start: December 22, 2024 Dr. Chelsea Carbone DO Attending physician Active Start: December 22, 2024 Dr. Chelsea Carbone , Nurse Practitioner Active Start: December 22, 2024 Inactive Administered Medications - up to 3 most recent administrations Administered Medications (un recognized section and content) Medication Order MAR Action Action Date Dose Rate Site 0.9% NaCl 10 mL flush 10 mL, OTHER, ONCE, 1 dose, On Fri04/30/23 at 1530 Given by [facility] 04/30/2023 3:30 PM EST 10 mL dexAMETHasone sodium phosphate 10 mg injection (DECADRON) 10 mg, OTHER, ONCE, 1 dose, On Fri04/30/23 at 1530 Given by [facility] 04/30/2023 3:30 PM EST 15 mg iohexol 300 mg injection (OMNIPAQUE 300) 300 mg, OTHER, ONCE, 1 dose, On Fri04/30/23 at 1530 Given by [facility] 04/30/2023 3:31 PM EST 300 mg lidocaine (PF) 10 mg/mL (1 %) 100 mg injection (XYLOCAINE) 100 mg, OTHER, ONCE, 1 dose, On Fri04/30/23 at 1530 Given by [facility] 04/30/2023 3:31 PM EST 100 mg Inactive Administered Medications - up to 3 most recent administrations Medication Order MAR Action Action Date Dose Rate Site lidocaine (PF) 10 mg/mL (1 %) 100 mg injection (XYLOCAINE) 100 mg, OTHER, ONCE, 1 dose, On Fri05/26/23 at 0900 Given by [facility] 05/26/2023 8:55 AM EDT 100 mg lidocaine (PF) 20 mg/mL (2 %) 200 mg injection (XYLOCAINE) 200 mg, OTHER, ONCE, 1 dose, On Fri05/26/23 at 0900 Given by [facility] 05/26/2023 8:56 AM EDT 200 mg methylPREDNISolone acetate 40 mg injection (DEPO-Medrol) 40 mg, OTHER, ONCE, 1 dose, On Fri05/26/23 at 0900 Given by [facility] 05/26/2023 9:12 AM EDT 40 mg INFORMATION SOURCE (unrecogn ized section and content) DATE CREATED AUTHOR 01/19/2024 [facility] DATE CREATED AUTHOR AUTHOR'S ORGANIZ ATION 05/20/2024 [facility] DATE CREATED AUTHOR AUTHOR'S ORGANIZ ATION 06/19/2024 [facility] DATE CREATED AUTHOR AUTHOR'S ORGANIZ ATION 06/24/2024 [facility] DATE CREATED AUTHOR AUTHOR'S ORGANIZ ATION 07/15/2024 [facility] DATE CREATED AUTHOR AUTHOR'S ORGANIZ ATION 01/19/2025 [facility] DATE CREATED AUTHOR AUTHOR'S ORGANIZ ATION 01/20/2025 [facility] Scheduled Active and Recently Administ ered Medications (unrecognized section and content) Medication Order 06/22/2024 06/23/2024 06/24/2024 lidocaine PF (Xylocaine) 10 mg/mL (1 %) injection 1 mg 1 mg (0.1 mL), subcutaneous, Once, On Luisa 06/24/24 at 0915, For 1 dose, Recovery (only), To be used for IV insertion ONLY 0915 (Due) methocarbamol (Robaxin) injection 1,000 mg 1,000 mg, intravenous, Administer over 4 Minutes, Once, On Luisa 06/24/24 at 0915, For 1 dose, Recovery (only) 0915 (Due) povidone-iodine 5 % kit kit (COMPLETED) [...] as needed, itching, allergic reaction, Starting on [facility] 06/24/24 at 0856, For 1 dose, Recovery (only) droperidol (Inapsine) injection 0.625 mg 0.625 mg, intravenous, Once as needed, nausea/vomiting, second line, Starting on [facility] 06/24/24 at 0856, For 1 dose, Recovery [...] as needed, nausea/vomiting, first line, Starting on [facility] 06/24/24 at 0856, For 1 dose, Recovery [...] BE BASED ON THE PRIMARY CLINICAL RECORDS. [facility] [employer] [facility]. provides no warranty or guarantee of the accuracy or completeness of information in this document.
[2025-02-19] MEDS: 0.9% Saline Lock 10 ML Syringe IV ×3 (01:41→13:24)
[2025-02-19] MEDS: MethylPREDNISolone DosePak 4 MG BOX PO ×3 (01:44→18:04)
[2025-02-19 06:35] LABS: Hematocrit 29.7 % (37-47); Hemoglobin 9.4 g/dL (12.0-15.0); Immature Granulocytes Count 0.040 X10^3/uL (0.0-0.0); Mean Corp Hgb Conc 31.6 g/dL (32-36); Mean Corpuscular Volume 92.2 fL (81-99); Mean Platelet Vol. 9.7 fl (6.2-12.0); NRBC Flagged by Analyzer 0 % (0-5); Platelet Count 216 K/mm3 (150-450); RBC Distribution Width CV 14.6 % (11.6-14.6); RBC Distribution Width SD 50.2 fl (35.1-43.9); Red Blood Count 3.22 M/mm3 (4.2-5.4); White Blood Count 9.7 K/mm3 (4.4-11.0)
[2025-02-19 07:03] LABS: AST(SGOT) 16 U/L (<=31); Alanine Aminotransfer ALT/SGPT 6 U/L (<=34); Albumin, Serum 3.2 g/dL (3.4-4.8); Alkaline Phosphatase 110 U/L (35-104); Anion Gap 10 (5-15); BUN 20 mg/dL (4-19); BUN/Creat Ratio 24.4 RATIO (10-20); Calcium,Total 9.2 mg/dL (7.6-11.0); Carbon Dioxide 24.2 mmol/L (21.0-32.0); Chloride 106 mmol/L (98-108); Estimated Creatinine Clearance 39.43 ml/min (50-250); Globulin 2.6 g/dL (2.2-4.2); Glucose 111 mg/dL (70-99); Potassium 4.1 mmol/L (3.3-5.1)
[2025-02-19] MEDS: Potassium Chloride Oral Tablet 20 MEQ PO (08:15)
--- NOTE | 2025-02-19 10:33 | CASEMGMT ---
Social Work SW met w/pt in room in regard to prior level of function and anticipated d/c plan. PCP: Dr. Hassan Specialists: Neurosurgeon at [facility], cannot recall name. Also orthopedic surgeon at [facility], not sure of name Preferred Pharmacy: [facility] Insurance: Medicare, [facility] Prescription Benefit: Yes, has part D Living Will/HCPOA: Has completed, and then daughter POA. SW asked to have family bring in, her daughter is going to bring in the documents. LNOK: , three daughters Living Arrangements/Prior level of function: Pt lives w/ and daughter in a two story home, 3 steps in to the front door. There is a railing in to the door in the back. Pt normally is independent w/all ADLs. Pt has not been driving recently however due to her back and hip issues. Pt normally does cooking, cleaning, meds, ADLS. Pt has been using a walker just recently. Transportation: has been driving recently. Daughter does not drive. DME: Rollator, walker, cane, railings at back door, comfort height commode. HHC/SNF: No history of either. PLAN: Pt plans to return home. She was to start w/outpt PT at [facility] last week but was not feeling well. She is rescheduled to start on March 02. Pt adamantly against SNF, may be open to HHC if needed. SW will continue to follow pt regarding discharge needs. KELSEY Strange
--- NOTE | 2025-02-19 11:23 | PN.HOSP_ITS ---
Reason for Visit Chief Complaint: Intractable back pain, BL radiculopathy Objective Data Objective Data Vital Signs: Vital Signs Temp Pulse Resp BP Pulse Ox O2 Del Method O2 Flow Rate 97.5 F L 61 16 135/57 H 98 Room Air 2 02/19/25 08:13 02/19/25 08:13 02/19/25 08:13 02/19/25 08:13 02/19/25 08:13 02/19/25 08:15 02/19/25 07:55 Oxygen Flow Rate (L/min) 2 Oxygen Delivery Method Room Air Weight: 128 lb 1.417 oz Body Mass Index (BMI) 23.4 Lab / Micro Data 02/19/25 05:39 02/19/25 05:39 Labs: Laboratory Results - last 24 hr 02/18/25 22:15: WBC 13.5 H, RBC 3.78 L, Hgb 11.1 L, Hct 34.6 L, MCV 91.5, MCH 29.4, MCHC 32.1, RDW Std Deviation 49.0 H, RDW Coeff of Bailee 14.6, Plt Count 288, MPV 9.5, Immature Gran % (Auto) 0.400, Neut % (Auto) 82.5 H, Lymph % (Auto) 12.5 L, Atkinson % (Auto) 4.5, Eos % (Auto) 0.0, Baso % (Auto) 0.1, Absolute Neuts (auto) 11.1 H, Absolute Lymphs (auto) 1.69, Nucleated RBC % 0, Sodium 138, Potassium 3.7, Chloride 103, Carbon Dioxide 21.5, Anion Gap 13, BUN 18, Creatinine 0.77, E stim Creat Clear Calc 41.40 L, Est GFR (MDRD) Non-Af 76, BUN/Creatinine Ratio 22.9 H, Glucose 134 H, Calcium 9.6, Total Creatine Kinase 42 02/18/25 23:30: Urine Color Yellow, Urine Clarity Clear, Urine pH 7.0, Ur Specific [place] 1.010, Urine Protein 100 H, Urine Glucose (UA) Normal, Urine Ketones Negative, Urine Occult Blood 50 H, Urine Nitrite Negative, Urine Bilirubin Negative, Urine Urobilinogen Normal, Ur Leukocyte Esterase Negative, Urine RBC 0 SEEN, Urine WBC 0 SEEN, Ur Squamous Epith Cells 0 SEEN, Urine Bacteria 2+, Urine Mucus 0 SEEN 02/19/25 05:39: WBC 9.7, RBC 3.22 L, Hgb 9.4 L, Hct 29.7 L, MCV 92.2, MCH 29.2, MCHC 31.6 L, RDW Std Deviation 50.2 H, RDW Coeff of Bailee 14.6, Plt Count 216, MPV 9.7, Immature Gran % (Auto) 0.400, Neut % (Auto) 80.7 H, Lymph % (Auto) 13.8 L, Atkinson % (Auto) 5.1, Eos % (Auto) 0.0, Baso % (Auto) 0.0, Absolute Neuts (auto) 7.9 H, Absolute Lymphs (auto) 1.34, Nucleated RBC % 0, Sodium 139, Potassium 4.1, Chloride 106, Carbon Dioxide 24.2, Anion Gap 10, BUN 20 H, Creatinine 0.84, Estim Creat Clear Calc 39.43 L, Est GFR (MDRD) Non-Af 69, BUN/Creatinine Ratio 24.4 H, Glucose 111 H, Calcium 9.2, Total Bilirubin 0.30, AST 16, ALT 6, A lkaline Phosphatase 110 H, Total Protein 5.9, Albumin 3.2 L, Globulin 2.6, Albumin/Globulin Ratio 1.2 Radiography Diagnostic Testing: Radiology Impression Lumbar Spine CT 02/18/25 22:01 IMPRESSION: Post operative changes as detailed. Straightened lumbar lordosis denoting myospasm. 1st degree anterolisthesis of L4 and L5 Mild L2 and L3 retrolisthesis. Mild old reduced L5 vertebral body height with no acute fractures. Lumbar spondylosis with multilevel facet arthropathy and diffuse posterior disc bulges inducing encroachment upon the neural exit foramina. Degenerative changes of the sacroiliac joints. Diffuse reduced bone density. Reading Location: [place] [address] Physical Exam Narrative Seen and examined. Patient admitted with lower back pain/buttock pain with radiation to thigh. She has a spinal cord stimulator. History of l spine surgery twice. Moved her bowels yesterday. Physical exam General: Alert, Oriented x3, Cooperative. BMI 23.4 kg/m? HEENT: Atraumatic, PERRLA, EOMI, Normocephalic. Oral: No Gingival or Mucosal Lesions/ Ulcerations Neck: Supple, No JVD, Negative Carotid Bruits Chest wall/Lungs: Air entry diminished in bilateral lung bases. No crepitation/rhonchi Cardiovascular: Regular rate and rhythm, Normal S1,S2, No M/G/R Abdomen: Bowel Sounds Present, Soft, Non Tender, Non-Distended : No dysuria. No renal angle tenderness. No suprapubic tenderness. Extremities: No edema, Capillary Refill Less than 3 Seconds Skin: No rashes, No breakdown Musculoskeletal: No Tenderness to Palpation of Joints or Extremities. Bilateral degenerative knee arthritis Spine: Mild tenderness present on lower lumbar spine. Neurological: Cranial nerves II-XII grossly intact, DTR 2+/4. No acute focal neurological deficit. Psych/Mental Status: Normal Affect, Appropriate. Assessment & Plan Assessment/Plan (1) Intractable back pain: PLAN: Plan The patient is an 84 y/o F ED on 02/18/2025 with history of 2 to 3 days of progressively worsening lumbar back pain with some radiation to the upper thigh regions. There is no improvement on initiation of prednisone. #1. Acute on Chronic Intractable Lumbar Back Pain with radiation to BL LE/Radiculopathy: Patient is being admitted on [facility] floor. Lumbar spine CT reviewed which shows lumbar spondylosis with multilevel facet arthropathy and diffuse posterior disc bulge producing encroachment upon neural exit foramina. Degenerative changes of sacroiliac joint. Diffuse reduced bone density. Mild anterolisthesis of L4 and L5 and mild L2 and L3 retrolisthesis Pain management. On tizanidine, low-dose gabapentin, Medrol Dosepak and IV pain medication. Continue stool softener. Patient not able to get MRI because of spinal cord stimulator. Orthospine consulted #2. Hypertension: Continue home regimen including spironolactone with hold parameters as needed, PRN hydralazine. #3. Hyperlipidemia: continue patient home statin therapy. #4. Chronic Kidney Disease Stage II: Admission BUN/Cr 18/0.77, GFR 76, baseline renal function 0.7-0.9, repeat creatinine 0.84. #5. Chronic normocytic anemia: Admission hemoglobin 9.1, MCV 91.5, repeat hemoglobin is 9.4 #6. Restless leg syndrome: continue patient home Requip regimen. #7. DVT prophylaxis: Lovenox. #8. CODE status: Patient HCPOA is her who is and living will is currently. Discussed CODE status at length including difference between FULL code, DNR-CCA and DNR-CC status. Following discussions about the differences in these status, requested Full Code status. Charges/Coding Visit Charges Inpatient E&M: 39477 Subs Hosp L2
--- NOTE | 2025-02-19 15:40 | CASEMGMT ---
Met with patient to review FERNANDEZ form. FERNANDEZ form and its content were verbally explained and patient?s questions were answered to the best of my ability. Patient voiced understanding and signed FERNANDEZ form. Patient provided a copy of signed FERNANDEZ form and original placed in patient?s chart. Patient had no further questions or concerns.
[2025-02-19] MEDS: Polyethylene Glycol 3350 17 GM PACKET PO (15:50)
[2025-02-19] MEDS: MELATONIN 3 MG TABLET PO (21:27)
[2025-02-19] MEDS: Senna/Docusate Sodium 1 Tablet 2 TABLET PO (21:27)
[2025-02-20 01:00] VITALS: BP 150/63; PULSE 50; RESP 16; TEMP 36.7; O2SAT 98
[2025-02-20 03:57] VITALS: BMI 23.5
[2025-02-20] MEDS: 0.9% Saline Lock 10 ML Syringe IV (06:02)
[2025-02-20 07:50] VITALS: O2SAT 96
[2025-02-20 08:34] VITALS: BP 139/51; PULSE 53; RESP 16; TEMP 36.4; O2SAT 96
[2025-02-20] MEDS: Senna/Docusate Sodium 1 Tablet 2 TABLET PO ×2 (08:35→22:05)
[2025-02-20] MEDS: Potassium Chloride Oral Tablet 20 MEQ PO (08:35)
[2025-02-20] MEDS: Polyethylene Glycol 3350 17 GM PACKET PO (08:36)
--- NOTE | 2025-02-20 11:14 | PCM.PN.HOSP ---
Reason for Visit Chief Complaint: Intractable back pain, BL radiculopathy Objective Data Objective Data Vital Signs: Vital Signs Temp Pulse Resp BP Pulse Ox O2 Del Method O2 Flow Rate 97.5 F L 53 L 16 139/51 H 96 Room Air 2 02/20/25 08:34 02/20/25 08:34 02/20/25 08:34 02/20/25 08:34 02/20/25 08:34 02/20/25 08:35 02/19/25 07:55 Oxygen Flow Rate (L/min) 2 Oxygen Delivery Method Room Air Weight: 128 lb 8.472 oz Body Mass Index (BMI) 23.5 Intake & Output: Intake and Output for Last 24 Hours 02/18/25 02/19/25 02/20/25 23:59 23:59 23:59 Intake Total 1800 / 2100 600 / 600 Balance 1800 / 2100 600 / 600 Lab / Micro Data 02/19/25 05:39 02/19/25 05:39 Micro: Microbiology 02/18/25 23:30 Urine, Clean Catch Urine Culture - Preliminary Gram negative gerard Physical Exam Narrative Seen and examined. Complain of pain over bilateral lower lumbar and buttock area with radiation to thigh. She has a spinal cord stimulator. History of lumbar spine surgery twice. Moved her bowels yesterday. Physical exam General: Alert, Oriented x3, Cooperative. BMI 23.4 kg/m? HEENT: Atraumatic, PERRLA, EOMI, Normocephalic. Oral: No Gingival or Mucosal Lesions/ Ulcerations Neck: Supple, No JVD, Negative Carotid Bruits Chest wall/Lungs: Air entry diminished in bilateral lung bases. No crepitation/rhonchi Cardiovascular: Regular rate and rhythm, Normal S1,S2, No M/G/R Abdomen: Bowel Sounds Present, Soft, Non Tender, Non-Distended : No dysuria. No renal angle tenderness. No suprapubic tenderness. Extremities: No edema, Capillary Refill Less than 3 Seconds Skin: Small bruise over left sacral area from fall, healing. Present on admission. Musculoskeletal: No Tenderness to Palpation of Joints or Extremities. Bilateral degenerative knee arthritis Spine: Mild tenderness present on lower lumbar spine. Neurological: Cranial nerves II-XII grossly intact, DTR 2+/4. No acute focal neurological deficit. Psych/Mental Status: Normal Affect, Appropriate. Assessment & Plan Assessment/Plan (1) Intractable back pain: PLAN: Plan The patient is an 84 y/o F ED on 02/18/2025 with history of 2 to 3 days of progressively worsening lumbar back pain with some radiation to the upper thigh regions. There is no improvement on initiation of prednisone. #1. Acute on Chronic Intractable Lumbar Back Pain with radiation to BL LE/Radiculopathy: [facility] reviewed which shows lumbar spondylosis with multilevel facet arthropathy and diffuse posterior disc bulge producing encroachment upon neural exit foramina. Degenerative changes of sacroiliac joint. Diffuse reduced bone density. Mild anterolisthesis of L4 and L5 and mild L2 and L3 retrolisthesis Pain management. On tizanidine, low-dose gabapentin, Medrol Dosepak and IV pain medication. Continue stool softener. Patient not able to get MRI because of spinal cord stimulator. Orthospine consulted 02/20: Patient not seen by Dr. Paul Gutierrez yet. Discussed about the conservative management including pain control, spinal cord stimulator, PT OT and rehab. Has moved bowels yesterday. #2. Hypertension: Continue home regimen including spironolactone with hold parameters as needed, PRN hydralazine. #3. Hyperlipidemia: continue patient home statin therapy. #4. Chronic Kidney Disease Stage II: Admission BUN/Cr 18/0.77, GFR 76, baseline renal function 0.7-0.9, repeat creatinine 0.84. #5. Chronic normocytic anemia: Admission hemoglobin 9.1, MCV 91.5, repeat hemoglobin is 9.4 #6. Restless leg syndrome: continue patient home Requip regimen. #7. DVT prophylaxis: Lovenox. #8. CODE status: Patient KELL is her who is and living will is currently. Discussed CODE status at length including difference between FULL code, DNR-CCA and DNR-CC status. Following discussions about the differences in these status, requested Full Code status. Charges/Coding Visit Charges Inpatient E&M: 13686 Subs Hosp L2
[2025-02-20] MEDS: MethylPREDNISolone DosePak 4 MG BOX PO ×3 (12:50→22:05)
[2025-02-20 13:00] VITALS: BP 147/57; PULSE 79; RESP 16; TEMP 36.6; O2SAT 100
[2025-02-20 15:40] VITALS: BP 142/58; PULSE 63; RESP 16; TEMP 36.5; O2SAT 97
[2025-02-20 21:12] VITALS: BP 146/76; PULSE 63; RESP 16; TEMP 36.6; O2SAT 98
[2025-02-20] MEDS: MELATONIN 3 MG TABLET PO (22:05)
[2025-02-21 02:15] VITALS: BP 162/75; PULSE 63; RESP 16; TEMP 36.8; O2SAT 97
[2025-02-21 06:00] VITALS: BMI 24.7
[2025-02-21 07:58] VITALS: BP 187/105; PULSE 58; RESP 16; TEMP 36.5; O2SAT 99
[2025-02-21 08:00] VITALS: O2SAT 95
[2025-02-21] MEDS: Potassium Chloride Oral Tablet 20 MEQ PO (08:09)
[2025-02-21] MEDS: MethylPREDNISolone DosePak 4 MG BOX PO ×3 (08:09→22:00)
[2025-02-21] MEDS: Polyethylene Glycol 3350 17 GM PACKET PO (08:09)
[2025-02-21] MEDS: Senna/Docusate Sodium 1 Tablet 2 TABLET PO ×2 (08:09→21:59)
--- NOTE | 2025-02-21 11:06 | PCM.CONS.GEN ---
Assessment & Plan Assessment/Plan (1) Radiculopathy of lumbar region: (2) Hip arthritis: QUALIFIERS: Laterality: bilateral Qualified Code(s): M16.0 - Bilateral primary osteoarthritis of hip PLAN: Plan Has medtronic scs Continue multimodal analgesic regimen Given severity of pain in the groin worsened with movement of the hip I have concern for possible hip fracture or pelvic fracture so recommend x-ray imaging to assess for fractures. Dr. Gutierrez was consulted by primary team On lovenox 40mg daily. 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 She has pmh of Chronic anemia, RLS, HLD, HTN, Hx BPPV s/p prior R sided myringotomy, Anxiety and Depression, Chronic back pain (s/p SCS) whom was admitted from ED after syncopal episode. She has had chronic back pain for years. A few days ago she states her pain worsened severely in the left groin and thigh. She says she has some back pain as well. The pain is 15/10 in severity she states and constant. Significantly with activity or attempts at activity. He has difficulty ambulating due to the pain moving the limb much at all causes severe pain in the groin she does also notes some numbness in the foot. It medication helps a bit rest helps. She has a Medtronic spinal cord stimulator she says placed about 1 [address] ago. Lumbar spine CT showed lumbar spondylosis with multilevel facet arthropathy and diffuse posterior disc bulge producing encroachment upon neural exit foramina. Degenerative changes of sacroiliac joint. Diffuse reduced bone density. Mild anterolisthesis of L4 and L5 and mild L2 and L3 retrolisthesis She is on lovenox 40mg daily. [facility] Medical History (Updated 02/21/25 @ 13:[address] Paul Gutierrez MD) Syncope Insomnia Carotid artery stenosis History of spinal stenosis Chronic anemia Elevated d-dimer HLD (hyperlipidemia) HTN (hypertension) Back pain with radiculopathy Anxiety and depression RLS (restless legs syndrome) BPPV (benign paroxysmal positional vertigo) Home Medications ?Medication ?Instructions ?Recorded ?Last Taken ?Type aspirin 81 mg chewable tablet 81 mg PO DAILY@0800 heart health 02/26/13 12/21/24 History calcium 600 mg (as 600 mg PO DINNER supplement 02/26/13 12/21/24 History carbonate)-vitamin D3 20 mcg (800 unit) tablet pravastatin 20 mg tablet 20 mg PO QHS cholesterol 12/05/19 12/20/24 History cholecalciferol (vitamin D3) 25 25 mcg PO DAILY 12/21/24 12/21/24 History mcg (1,000 unit) capsule magnesium 200 mg tablet 400 mg PO DAILY 12/21/24 12/21/24 History ropinirole 4 mg tablet 4 mg PO QHS 12/21/24 12/20/24 History potassium chloride 20 mEq 20 meq PO QDAY 01/18/25 Unknown History tablet,extended release (K-Tab) spironolactone 25 mg tablet 25 mg PO DAILY 02/19/25 Unknown History Allergy/AdvReac Type Severity Reaction Status Date / Time Sulfa (Sulfonamide Allergy Swelling Verified 02/18/25 20:55 Antibiotics) acetaminophen (From Vicodin) AdvReac Vomiting Verified 02/18/25 20:55 hydrocodone bitartrate (From AdvReac Vomiting Verified 02/18/25 20:55 Vicodin) promethazine HCl (From AdvReac Vomiting Verified 02/18/25 20:55 Phenergan) Family History Mother Heart disease Hypertension Thyroid disorder Father Heart disease Hypertension CVA (cerebral vascular accident) Grandmother CAD (coronary artery disease) Myocardial infarction Daughter Diabetes Surgical History (Updated 02/21/25 @ 13:[address] Paul Gutierrez MD) Spinal cord stimulator status History of surgery History of bunionectomy H/O melanoma excision History of tonsillectomy History of colonoscopy H/O abdominal surgery Previous back surgery S/P cholecystectomy Social History household members: spouse Smoking Status: Never smoker alcohol intake: never substance use type: does not use ROS ROS Narrative Admission Review of Systems: CONSTITUTIONAL: No weight loss, fever, chills, + weakness or fatigue. HEENT: Eyes: No visual loss, blurred vision, double vision or yellow sclerae. Ears, Nose, Throat: No hearing loss, sneezing, congestion, runny nose or sore throat. SKIN: No rash or itching, lesions, wounds. CARDIOVASCULAR: No chest pain, chest pressure or chest discomfort, palpitations, edema, orthopnea, syncopal events. RESPIRATORY: No shortness of breath, cough or sputum, wheezing, hemoptysis. GASTROINTESTINAL: No anorexia, nausea, vomiting or diarrhea, abdominal pain, melena, BRBPR. GENITOURINARY: No dysuria, frequency, urgency or retention. NEUROLOGICAL: + Intractable lumbar back pain with radiculopathy. No headache, dizziness, syncope, paralysis, ataxia, focal weakness, change in bowel or bladder control, seizure. MUSCULOSKELETAL: + muscle, back pain, joint pain or stiffness. HEMATOLOGIC: + Chronic anemia, no marked history of easy bleeding/bruising. LYMPHATICS: No enlarged nodes. No history of splenectomy. PSYCHIATRIC: + History of anxiety and depression/insomnia. ENDOCRINOLOGIC: No reports of sweating, cold or heat intolerance. No polyuria or polydipsia. ALLERGIES: No history of asthma, hives, eczema or rhinitis. Physical Exam Narrative Lumbar paraspinal tenderness + Lumbar facet load + bilaterally Mild movements of left hip cause severe pain. Significant left hip weakness. Const alert and no apparent distress Lab / Micro Data 02/19/25 05:39 02/19/25 05:39 Micro: Microbiology 02/18/25 23:30 Urine, Clean Catch Urine Culture - Final Proteus mirabilis
--- NOTE | 2025-02-21 11:30 | PCM.PN.HOSP ---
Reason for Visit Chief Complaint: Intractable back pain, BL radiculopathy Objective Data Objective Data Vital Signs: Vital Signs Temp Pulse Resp BP Pulse Ox O2 Del Method O2 Flow Rate 97.7 F L 58 L 16 187/105 H 95 Room Air 2 02/21/25 07:58 02/21/25 07:58 02/21/25 07:58 02/21/25 07:58 02/21/25 08:00 02/21/25 08:00 02/19/25 07:55 Oxygen Flow Rate (L/min) 2 Oxygen Delivery Method Room Air Weight: 135 lb 1.6 oz Body Mass Index (BMI) 24.7 Intake & Output: Intake and Output for Last 24 Hours 02/19/25 02/20/25 02/21/25 23:59 23:59 23:59 Intake Total 1800 / 2099 1900 / 2150 500 / 500 Balance 1800 / 2100 1900 / 2150 500 / 500 Lab / Micro Data 02/19/25 05:39 02/19/25 05:39 Micro: Microbiology 02/18/25 23:30 Urine, Clean Catch Urine Culture - Final Proteus mirabilis Physical Exam Narrative Seen and examined. Patient complained of left hip groin pain along with the lumbar sacral pain, 7-8/10. Patient has left sided sacral pain with radiation to thigh, with muscle spasm. Pain management was consulted. She has a spinal cord stimulator. History of lumbar spine surgery twice. Moved her bowels Physical exam General: Alert, Oriented x3, Cooperative. BMI 23.4 kg/m? HEENT: Atraumatic, PERRLA, EOMI, Normocephalic. Oral: No Gingival or Mucosal Lesions/ Ulcerations Neck: Supple, No JVD, Negative Carotid Bruits Chest wall/Lungs: Air entry diminished in bilateral lung bases. No crepitation/rhonchi Cardiovascular: Regular rate and rhythm, Normal S1,S2, No M/G/R Abdomen: Bowel Sounds Present, Soft, Non Tender, Non-Distended : No dysuria. No renal angle tenderness. No suprapubic tenderness. Extremities: No edema, Capillary Refill Less than 3 Seconds Skin: Small bruise over left sacral area from fall, healing. Present on admission. Musculoskeletal: Tenderness present on the left groin area. Bilateral degenerative knee arthritis Spine: Mild tenderness present on lower lumbar sacral area more on the left side. Neurological: Cranial nerves II-XII grossly intact, DTR 2+/4. No acute focal neurological deficit. Psych/Mental Status: Flat affect Assessment & Plan Assessment/Plan (1) Intractable back pain: PLAN: Plan The patient is an 84 y/o F ED on 02/18/2025 with history of 2 to 3 days of progressively worsening lumbar back pain with some radiation to the upper thigh regions. There is no improvement on initiation of prednisone. #1. Acute on Chronic Intractable Lumbar Back Pain with radiation to BL LE/Radiculopathy: Patient is being admitted on [facility] floor. Lumbar spine CT reviewed which shows lumbar spondylosis with multilevel facet arthropathy and diffuse posterior disc bulge producing encroachment upon neural exit foramina. Degenerative changes of sacroiliac joint. Diffuse reduced bone density. Mild anterolisthesis of L4 and L5 and mild L2 and L3 retrolisthesis Pain management. On tizanidine, low-dose gabapentin, Medrol Dosepak and IV pain medication. Continue stool softener. Patient not able to get MRI because of spinal cord stimulator. Orthospine consulted 02/20: Patient not seen by Dr. Paul Gutierrez yet. Discussed about the conservative management including pain control, spinal cord stimulator, PT OT and rehab. Has moved bowels yesterday. 02/21: Pain management consulted for severe pain in the left sacral and groin with ration to thigh with muscle spasm with hope of epidural injection in the back. Dr. Alvarez evaluated the patient and he suspects with the groin pain possibility of left hip fracture therefore x-ray of left hip with pelvis and x-ray sacrum ordered. Further management after the x-ray. Continue pain management. #2. Hypertension: Continue home regimen including spironolactone with hold parameters as needed, PRN hydralazine. #3. Hyperlipidemia: continue patient home statin therapy. #4. Chronic Kidney Disease Stage II: Admission BUN/Cr 18/0.77, GFR 76, baseline renal function 0.7-0.9, repeat creatinine 0.84. #5. Chronic normocytic anemia: Admission hemoglobin 9.1, MCV 91.5, repeat hemoglobin is 9.4 #6. Restless leg syndrome: continue patient home Requip regimen. #7. DVT prophylaxis: Lovenox. #8. CODE status: Patient KELL is her who is and living will is currently. Discussed CODE status at length including difference between FULL code, DNR-CCA and DNR-CC status. Following discussions about the differences in these status, requested Full Code status. Charges/Coding Visit Charges Inpatient E&M: 90331 Subs Hosp L2
--- NOTE | 2025-02-21 13:14 | CONS.ORTHO ---
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 Said the pain started about a week. She denies any issues. She also has right-sided flank pain right hip for possible hip replacement surgery in the near future. She has had spinal cord stimulator placed by pain doctor in [place] she has had multiple fusion surgeries, 1 at L4-5 followed by 1 in the L3-4 through a lateral approach for symptoms of back pain without leg pain at that time. She has not had any steroid treatments since groin pain started. She was denied an MRI over the weekend due to presence of stimulator. PMHx: HTN, HLD, Anxiety and Depression/Chronic insomnia, RLS, BPPV, Chronic back pain following with pain management status post spinal cord stimulator placement and previous back surgery, Chronic normocytic anemia, CKD stage II [facility] Medical History (Updated 02/21/25 @ 13:[address] Paul Gutierrez MD) Syncope Insomnia Carotid artery stenosis History of spinal stenosis Chronic anemia Elevated d-dimer HLD (hyperlipidemia) HTN (hypertension) Back pain with radiculopathy Anxiety and depression RLS (restless legs syndrome) BPPV (benign paroxysmal positional vertigo) Home Medications ?Medication ?Instructions ?Recorded ?Last Taken ?Type aspirin 81 mg chewable tablet 81 mg PO DAILY@0800 heart health 02/26/13 12/21/24 History calcium 600 mg (as 600 mg PO DINNER supplement 02/26/13 12/21/24 History carbonate)-vitamin D3 20 mcg (800 unit) tablet pravastatin 20 mg tablet 20 mg PO QHS cholesterol 12/05/19 12/20/24 History cholecalciferol (vitamin D3) 25 25 mcg PO DAILY 12/21/24 12/21/24 History mcg (1,000 unit) capsule magnesium 200 mg tablet 400 mg PO DAILY 12/21/24 12/21/24 History ropinirole 4 mg tablet 4 mg PO QHS 12/21/24 12/20/24 History potassium chloride 20 mEq 20 meq PO QDAY 01/18/25 Unknown History tablet,extended release (K-Tab) spironolactone 25 mg tablet 25 mg PO DAILY 02/19/25 Unknown History Allergy/AdvReac Type Severity Reaction Status Date / Time Sulfa (Sulfonamide Allergy Swelling Verified 02/18/25 20:55 Antibiotics) acetaminophen (From Vicodin) AdvReac Vomiting Verified 02/18/25 20:55 hydrocodone bitartrate (From AdvReac Vomiting Verified 02/18/25 20:55 Vicodin) promethazine HCl (From AdvReac Vomiting Verified 02/18/25 20:55 Phenergan) Family History Mother Heart disease Hypertension Thyroid disorder Father Heart disease Hypertension CVA (cerebral vascular accident) Grandmother CAD (coronary artery disease) Myocardial infarction Daughter Diabetes Surgical History (Updated 02/21/25 @ 13:[address] Paul Gutierrez MD) Spinal cord stimulator status History of surgery History of bunionectomy H/O melanoma excision History of tonsillectomy History of colonoscopy H/O abdominal surgery Previous back surgery S/P cholecystectomy Social History household members: spouse Smoking Status: Never smoker alcohol intake: never substance use type: does not use Vital Signs Vital Signs Vital Signs: 02/20/25 15:40 02/20/25 15:40 02/20/25 21:12 Temperature 97.7 F L 97.9 F Temperature Source Oral Oral Pulse Rate 63 63 Pulse Strength Respiratory Rate 16 16 Respiratory Effort Normal Non-Labored Blood Pressure 142/58 H 146/76 H Blood Pressure Mean 86 99 Blood Pressure Source Monitor Monitor Blood Pressure Position Semi-Fowlers Semi-Fowlers Blood Pressure Location Left Arm Right Arm Pulse Ox 97 98 Oxygen Delivery Method Room Air Room Air 02/20/25 21:13 02/20/25 21:30 02/21/25 02:15 Temperature 98.2 F Temperature Source Oral Pulse Rate 63 Pulse Strength Normal (2+) Respiratory Rate 16 Respiratory Effort Blood Pressure 162/75 H Blood Pressure Mean 104 Blood Pressure Source Monitor Blood Pressure Position Semi-Fowlers Blood Pressure Location Right Arm Pulse Ox 97 Oxygen Delivery Method Room Air Room Air 02/21/25 07:58 02/21/25 08:00 02/21/25 09:41 Temperature 97.7 F L Temperature Source Oral Pulse Rate 58 L Pulse Strength Normal (2+) Respiratory Rate 16 Respiratory Effort Blood Pressure 187/105 H Blood Pressure Mean 132 Blood Pressure Source Monitor Blood Pressure Position Supine Blood Pressure Location Right Arm Pulse Ox 99 95 Oxygen Delivery Method Room Air Room Air 02/21/25 12:00 Temperature Temperature Source Pulse Rate Pulse Strength Respiratory Rate Respiratory Effort Blood Pressure Blood Pressure Mean Blood Pressure Source Blood Pressure Position Blood Pressure Location Pulse Ox Oxygen Delivery Method Room Air Weight Weight: 135 lb 1.6 oz Body Mass Index (BMI) 24.7 Physical Exam Narrative Examination of the back shows midline left paraspinal redness. Neurologic motion of lower extremity shows 5 out of 5 power except for left hip flexion which is grade 4 - due to pain. Hip range of motion is painful at all extremes both sides. Lab / Micro Data 02/19/25 05:39 02/19/25 05:39 Micro: Microbiology 02/18/25 23:30 Urine, Clean Catch Urine Culture - Final Proteus mirabilis Assessment & Plan Assessment/Plan (1) Radiculopathy of lumbar region: (2) Intractable back pain: (3) History of lumbar fusion: (4) Spinal cord stimulator status: (5) Hip arthritis: QUALIFIERS: Laterality: bilateral Qualified Code(s): M16.0 - Bilateral primary osteoarthritis of hip PLAN: Plan Reviewed patient's lumbar CT scan during this admission. They show L4-5 posterior instrumented fusion, L3-4 lateral instrumented fusion with good healing. Vacuum phenomenon noticed at L2-3 and L5-S1 likely related to adjacent segment degeneration. No MRI available. Discussed imaging findings with patient. Agree with pain consult. Agree with further imaging of hip and lumbar spine with x-rays. Patient's spinal cord stimulator is quite recent and should be MRI compatible. In fact, patient has had MRI at an outside institution in the past recently. She may try to get the MRI and a CD from the [facility] location that she had a few months ago. Possibility of epidural injections through pain management was discussed based on MRI findings. Patient may follow-up with me as an outpatient after obtaining MRI images. Patient was in agreement. Orthopedics will sign off. Please reach out for spine concerns after above imaging is complete. Answered all questions. Charges/Coding Visit Charges Inpatient E&M: 53846 Init Hosp L3
--- NOTE | 2025-02-21 13:24 | MRI_ITS ---
PROCEDURE: SPINE LUMBAR (ROUTINE) 02/21/2025 REASON FOR EXAM: LUMBAR SACRAL PAIN, RADIATION TO LT THIGH AND HIP TECHNIQUE: Procedure Code: MRISPL Modality: MR Procedure: SPINE LUMBAR (ROUTINE) FINDINGS: Posterior lumbar fusion with pedicle screws between L4 and L5 with interbody fusion at L3-4. Normal conus. Negative for marrow edema. Negative for acute compressive deformity. No retroperitoneal or paravertebral mass lesion. T12-L1 is unremarkable. Suspect spinal stimulator leads entering the canal at this level. At L1-2 there is degenerative facet arthrosis. At L2-3, there is [id number] circumferential spinal canal narrowing with facet degeneration and ligamentous prominence with broad-based disc bulging. Bilateral foraminal narrowing is seen at this level more prominent on the right than the left. At L3-4, prior interbody fusion with mild circumferential spinal stenosis. At L4-5 grade 1 subluxation, posterior fusion and Dorsal decompression without recurrent pathology. At L5-S1 broad-based disc bulging produces severe bilateral neural foraminal narrowing with potential nerve root impingement. Mild central canal narrowing is present. MRI/Spine Lumbar (Routine) IMPRESSION: 1. [id number] canal narrowing at L2-3. 2. Prior lumbar fusion and placement of spinal stimulator leads. 3. Severe bilateral L5 and bilateral L2 foraminal stenosis. Reading Location: [facility]
--- NOTE | 2025-02-21 14:00 | RAD_ITS ---
PROCEDURE: L/S SPINE BENDING FLEX/EXT 02/21/2025 REASON FOR EXAM: SACRAL PAIN TECHNIQUE: Procedure Code: [id number] Modality: DX Procedure: L/S SPINE BENDING FLEX/EXT COMPARISON: Lumbar spine CT study dated 02/18/2025 FINDINGS: 3 lateral views of the lumbosacral spine were obtained in the neutral, flexion and extension views. Bones: Bony demineralization of the lumbar spine and sacrum are noted. Sacrum appears to be intact. There are 5 lumbar-type vertebral bodies below the last set of paired ribs. There is a decrease in height of the L5 vertebral body by a proximally 10%. There has been prior laminectomy of the L4 level. A radiopaque disc spacer is seen at the L3-L4 level. Radiopaque fixation hardware is projected over the posterior aspect of the L4 and L5 levels. There is no fracture or loosening of the radiopaque hardware. Moderate spondylosis of the lumbar spine is noted. Curvature/alignment: There are subtle loss of the normal lordotic lumbar curvature which may be secondary to muscle spasm or strain. There is a approximately 2 mm of retrolisthesis of L2 in relationship to L3, 5 mm of retrolisthesis of L3 in relationship to L4, 6 mm of anterolisthesis of L4 in relationship to L5. There is no instability on the flexion or extension views. Discs: Schmorl's nodes are identified. Degenerative disc disease is seen involving the T12-L1, L2-L3, L4-L5 and L5-S1 levels. Degenerative facet arthropathy is noted. Other: A spinal stimulator is noted with the tip entering posteriorly at the L1- L2 level and extending cephalad. The tip is not included on the images submitted for review. Surgical clips are seen in the gallbladder fossa. Arteriosclerotic disease of the aorta is noted. RAD/L/S Spine Bending Flex/Ext IMPRESSION: Bony demineralization of the lumbar spine and sacrum are noted. There is a decrease in height of the L5 vertebral body by a proximally 10%. Th ere has been prior laminectomy of the L4 level. A radiopaque disc spacer is seen at the L3-L4 level. Radiopaque hardware is projected over the posterior aspect of the L4 and L5 lev els. There is no fracture or loosening of the radiopaque hardware. Moderate spondylosis of the lumbar spine is noted. There are subtle loss of the normal lordotic lumbar curvature which may be seco ndary to muscle spasm or strain. There is a approximately 2 mm of retrolisthesis of L2 in relationship to L3, 5 mm of retrolisthesis of L3 in relationship to L4, 6 mm of anterolisthesis of L4 in relationship to L5. There is no instability on the flexion or extension views. Degenerative disc disease is seen involving the T12-L1, L2-L3, L4-L5 and L5-S1 levels. Degenerative facet arthropathy is noted. Reading Location: [id number]
--- NOTE | 2025-02-21 14:00 | RAD_ITS ---
PROCEDURE: HIP, UNI W/ PELVIS 2-3 VIEWS 02/21/2025 REASON FOR EXAM: LEFT GROIN PAIN TECHNIQUE: Procedure Code: RAD Modality: DX Procedure: HIP, UNI W/ PELVIS 2-3 VIEWS Laterality: Left. COMPARISON: None. FINDINGS: Mild osteopenia of the visualized bones. Degenerative joint disease. No fracture or dislocation is seen. No lytic or blastic bone lesion is noted. Spinal stimulator device is noted. RAD/HIP, UNI W/ Pelvis 2-3 Views IMPRESSION: No evidence for acute abnormality. Reading Location[facility] [id number]
[2025-02-21 14:29] VITALS: BP 131/69; PULSE 58; RESP 16; TEMP 36.5; O2SAT 99
[2025-02-21 19:56] VITALS: BP 155/71; PULSE 64; RESP 16; TEMP 36.3; O2SAT 96
[2025-02-22] VITALS (8 sets, daily range): BP systolic 140–191; BP diastolic 54–84; PULSE 57–86; RESP 14–16; TEMP 36.2–36.5; O2SAT 95–100; BMI 24.0
[2025-02-22] MEDS: 0.9% Saline Lock 10 ML Syringe IV (06:26)
[2025-02-22 07:16] LABS: Hematocrit 35.4 % (37-47); Hemoglobin 11.7 g/dL (12.0-15.0); Immature Granulocytes Count 0.070 X10^3/uL (0.0-0.0); Mean Corp Hgb Conc 33.1 g/dL (32-36); Mean Corpuscular Volume 90.8 fL (81-99); Mean Platelet Vol. 9.3 fl (6.2-12.0); NRBC Flagged by Analyzer 0 % (0-5); Platelet Count 300 K/mm3 (150-450); RBC Distribution Width CV 14.6 % (11.6-14.6); RBC Distribution Width SD 48.4 fl (35.1-43.9); Red Blood Count 3.90 M/mm3 (4.2-5.4); White Blood Count 11.7 K/mm3 (4.4-11.0)
[2025-02-22 07:45] LABS: Anion Gap 10 (5-15); BUN 26 mg/dL (4-19); BUN/Creat Ratio 31.3 RATIO (10-20); Calcium,Total 9.3 mg/dL (7.6-11.0); Carbon Dioxide 24.0 mmol/L (21.0-32.0); Chloride 100 mmol/L (98-108); Estimated Creatinine Clearance 40.39 ml/min (50-250); Glucose 91 mg/dL (70-99); Potassium 4.6 mmol/L (3.3-5.1)
[2025-02-22] MEDS: Senna/Docusate Sodium 1 Tablet 2 TABLET PO ×2 (08:04→22:09)
[2025-02-22] MEDS: Polyethylene Glycol 3350 17 GM PACKET PO (08:04)
[2025-02-22] MEDS: MethylPREDNISolone DosePak 4 MG BOX PO ×2 (08:05→22:09)
--- NOTE | 2025-02-22 12:43 | PCM.CONS.GEN ---
Assessment & Plan Assessment/Plan (1) Radiculopathy of lumbar region: PLAN: Plan Pelvic x-ray demonstrated no sacral fracture pelvic fracture nor hip fracture. Lumbar MRI demonstrated multilevel degenerative changes along with significant neural foraminal narrowing particularly at L2-L3 and at the L5-S1 levels. In the severity of her pain that appears radicular in nature into the left lower extremity in the distribution of roughly the L2-L3 nerve roots. I will elect to perform an L2-L3 transforaminal epidural steroid injection to improve hopefully pain as well as functional status. Continue multimodal analgesic plan per primary team. Holld 40 mg subcutaneous Lovenox prior to SHERMAN Discussed at great length the risks and benefits of the injection including infection bleeding and nerve damage. She wishes to proceed. 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 She has pmh of Chronic anemia, RLS, HLD, HTN, Hx BPPV s/p prior R sided myringotomy, Anxiety and Depression, Chronic back pain (s/p SCS) whom was admitted from ED after syncopal episode. She has had chronic back pain for years. Her pain exacerbation remains severe down the left leg particularly into the groin and thigh. She has difficulty with moving and lifting her leg due to pain. She had an MRI and x-rays no evidence of fracture. Pain is over 10/10 at its worst. It improves with rest and pain medication. She is on lovenox 40mg daily. [facility] Medical History (Updated 02/22/25 @ 16:[address] Paul Gutierrez MD) Syncope Insomnia Carotid artery stenosis History of spinal stenosis Chronic anemia Elevated d-dimer HLD (hyperlipidemia) HTN (hypertension) Back pain with radiculopathy Anxiety and depression RLS (restless legs syndrome) BPPV (benign paroxysmal positional vertigo) Home Medications ?Medication ?Instructions ?Recorded ?Last Taken ?Type aspirin 81 mg chewable tablet 81 mg PO DAILY@0800 heart health 02/26/13 12/21/24 History calcium 600 mg (as 600 mg PO DINNER supplement 02/26/13 12/21/24 History carbonate)-vitamin D3 20 mcg (800 unit) tablet pravastatin 20 mg tablet 20 mg PO QHS cholesterol 12/05/19 12/20/24 History cholecalciferol (vitamin D3) 25 25 mcg PO DAILY 12/21/24 12/21/24 History mcg (1,000 unit) capsule magnesium 200 mg tablet 400 mg PO DAILY 12/21/24 12/21/24 History ropinirole 4 mg tablet 4 mg PO QHS 12/21/24 12/20/24 History potassium chloride 20 mEq 20 meq PO QDAY 01/18/25 Unknown History tablet,extended release (K-Tab) spironolactone 25 mg tablet 25 mg PO DAILY 02/19/25 Unknown History Allergy/AdvReac Type Severity Reaction Status Date / Time Sulfa (Sulfonamide Allergy Swelling Verified 02/18/25 20:55 Antibiotics) acetaminophen (From Vicodin) AdvReac Vomiting Verified 02/18/25 20:55 hydrocodone bitartrate (From AdvReac Vomiting Verified 02/18/25 20:55 Vicodin) promethazine HCl (From AdvReac Vomiting Verified 02/18/25 20:55 Phenergan) Family History Mother Heart disease Hypertension Thyroid disorder Father Heart disease Hypertension CVA (cerebral vascular accident) Grandmother CAD (coronary artery disease) Myocardial infarction Daughter Diabetes Surgical History (Updated 02/21/25 @ 13:[address] Paul Gutierrez MD) Spinal cord stimulator status History of surgery History of bunionectomy H/O melanoma excision History of tonsillectomy History of colonoscopy H/O abdominal surgery Previous back surgery S/P cholecystectomy Social History household members: spouse Smoking Status: Never smoker alcohol intake: never substance use type: does not use Physical Exam Narrative Left paraspinal tenderness + SLR + for pain Motor testing lower extremities: 5 out of 5 power except left hip flexion 4/5 with pain. Left hip provocative maneuvers + for pain. Const alert and no apparent distress Psych affect normal Lab / Micro Data 02/22/25 06:38 12 06:38 Labs: Laboratory Results - last 24 hr 02/22/25 06:38: WBC 11.7 H, RBC 3.90 L, Hgb 11.7 L, Hct 35.4 L, MCV 90.8, MCH 30.0, MCHC 33.1, RDW Std Deviation 48.4 H, RDW Coeff of Bailee 14.6, Plt Count 300, MPV 9.3, Immature Gran % (Auto) 0.600, Neut % (Auto) 69.7, Lymph % (Auto) 23.7, [place] % (Auto) 5.7, Eos % (Auto) 0.1, Baso % (Auto) 0.2, Absolute Neuts (auto) 8.1 H, Absolute Lymphs (auto) 2.77, Nucleated RBC % 0, Sodium 134, Potassium 4.6, Chloride 100, Carbon Dioxide 24.0, Anion Gap 10, BUN 26 H, Creatinine 0.82, Estim Creat Clear Calc 40.39 L, Est GFR (MDRD) Non-Af 70, BUN/Creatinine Ratio 31.3 H, Glucose 91, Calcium 9.3 Micro: Microbiology 02/18/25 23:30 Urine, Clean Catch Urine Culture - Final Proteus mirabilis Imaging Radiology Impression Lumbar Spine MRI 02/21/25 13:24 IMPRESSION: 1. Guhn-hv-xumlzuna canal narrowing at L2-3. 2. Prior lumbar fusion and placement of spinal stimulator leads. 3. Severe bilateral L5 and bilateral L2 foraminal stenosis. Reading Location[facility] Hip/Pelvis X-Ray 02/21/25 14:00 IMPRESSION: No evidence for acute abnormality. Reading Location: [id number] Lumbar Spine X-Ray 02/21/25 14:00 IMPRESSION: Bony demineralization of the lumbar spine and sacrum are noted. There is a decrease in height of the L5 vertebral body by a proximally 10%. There has been prior laminectomy of the L4 level. A radiopaque disc spacer is seen at the L3-L4 level. Radiopaque hardware is projected over the posterior aspect of the L4 and L5 levels. There is no fracture or loosening of the radiopaque hardware. Moderate spondylosis of the lumbar spine is noted. There are subtle loss of the normal lordotic lumbar curvature which may be secondary to muscle spasm or strain. There is a approximately 2 mm of retrolisthesis of L2 in relationship to L3, 5 mm of retrolisthesis of L3 in relationship to L4, 6 mm of anterolisthesis of L4 in relationship to L5. There is no instability on the flexion or extension views. Degenerative disc disease is seen involving the T12-L1, L2-L3, L4-L5 and L5-S1 levels. Degenerative facet arthropathy is noted. Reading Location: [id number]
--- NOTE | 2025-02-22 15:52 | PN.HOSP_ITS ---
Reason for Visit Chief Complaint: Intractable back pain, BL radiculopathy Objective Data Objective Data Vital Signs: Vital Signs Temp Pulse Resp BP Pulse Ox O2 Del Method O2 Flow Rate 97.2 F L 86 15 150/84 H 97 Room Air 2 02/22/25 14:00 02/22/25 14:00 02/22/25 14:00 02/22/25 14:00 02/22/25 14:00 02/22/25 14:00 02/19/25 07:55 Oxygen Flow Rate (L/min) 2 Oxygen Delivery Method Room Air Weight: 131 lb 6.328 oz Body Mass Index (BMI) 24.0 Intake & Output: Intake and Output for Last 24 Hours 02/20/25 02/21/25 02/22/25 23:59 23:59 23:59 Intake Total 1900 / 2150 1000 / 1000 300 / 300 Output Total 550 / 550 Balance 1900 / 2150 1000 / 1000 -250 / -250 Lab / Micro Data 02/22/25 06:38 02/22/25 06:38 Labs: Laboratory Results - last 24 hr 02/22/25 06:38: WBC 11.7 H, RBC 3.90 L, Hgb 11.7 L, Hct 35.4 L, MCV 90.8, MCH 30.0, MCHC 33.1, RDW Std Deviation 48.4 H, RDW Coeff of Bailee 14.6, Plt Count 300, MPV 9.3, Immature Gran % (Auto) 0.600, Neut % (Auto) 69.7, Lymph % (Auto) 23.7, [place] % (Auto) 5.7, Eos % (Auto) 0.1, Baso % (Auto) 0.2, Absolute Neuts (auto) 8.1 H, Absolute Lymphs (auto) 2.77, Nucleated RBC % 0, Sodium 134, Potassium 4.6, Chloride 100, Carbon Dioxide 24.0, Anion Gap 10, BUN 26 H, Creatinine 0.82, Estim Creat Clear Calc 40.39 L, Est GFR (MDRD) Non-Af 70, BUN/Creatinine Ratio 31.3 H, Glucose 91, Calcium 9.3 Micro: Microbiology 02/18/25 23:30 Urine, Clean Catch Urine Culture - Final Proteus mirabilis Radiography Diagnostic Testing: Radiology Impression Lumbar Spine MRI 12/15/25 13:24 IMPRESSION: 1. Nutt-mf-rtetxnqo canal narrowing at L2-3. 2. Prior lumbar fusion and placement of spinal stimulator leads. 3. Severe bilateral L5 and bilateral L2 foraminal stenosis. Reading Location: [facility] Hip/Pelvis X-Ray 02/21/25 14:00 IMPRESSION: No evidence for acute abnormality. Reading Location: [place] [id number] Physical Exam Narrative Seen and examined. Patient still has pain over the left sacral and buttock region. Hip x-ray negative for fracture. Patient has left sided sacral pain with radiation to thigh, with muscle spasm. Pain management was consulted. She has a spinal cord stimulator. History of lumbar spine surgery twice. Physical exam General: Alert, Oriented x3, Cooperative. BMI 23.4 kg/m? HEENT: Atraumatic, PERRLA, EOMI, Normocephalic. Oral: No Gingival or Mucosal Lesions/ Ulcerations Neck: Supple, No JVD, Negative Carotid Bruits Chest wall/Lungs: Air entry equal in bilateral lung bases. No crepitation/rhonchi Cardiovascular: Regular rate and rhythm, Normal S1,S2, No M/G/R Abdomen: Bowel Sounds Present, Soft, Non Tender, Non-Distended : No dysuria. No renal angle tenderness. No suprapubic tenderness. Extremities: No edema, Capillary Refill Less than 3 Seconds Skin: Small bruise over left sacral area from fall, healing. Present on admission. Musculoskeletal: No tenderness present on the left groin area. Bilateral degenerative knee arthritis Spine: Mild tenderness present on lower lumbar and sacral area more on the left side. Neurological: Cranial nerves II-XII grossly intact, DTR 2+/4. No acute focal neurological deficit. Psych/Mental Status: Flat affect Assessment & Plan Assessment/Plan (1) Intractable back pain: PLAN: Plan The patient is an 84 y/o F ED on 02/18/2025 with history of 2 to 3 days of progressively worsening lumbar back pain with some radiation to the upper thigh regions. There is no improvement on initiation of prednisone. #1. Acute on Chronic Intractable Lumbar Back Pain with radiation to BL LE/Radiculopathy: Patient is being admitted on [facility] floor. Lumbar spine CT reviewed which shows lumbar spondylosis with multilevel facet arthropathy and diffuse posterior disc bulge producing encroachment upon neural exit foramina. Degenerative changes of sacroiliac joint. Diffuse reduced bone density. Mild anterolisthesis of L4 and L5 and mild L2 and L3 retrolisthesis Pain management. On tizanidine, low-dose gabapentin, Medrol Dosepak and IV pain medication. Continue stool softener. Patient not able to get MRI because of spinal cord stimulator. Orthospine consulted 02/20: Patient not seen by Dr. Paul Gutierrez yet. Discussed about the conservative management including pain control, spinal cord stimulator, PT OT and rehab. Has moved bowels yesterday. 02/21: Pain management consulted for severe pain in the left sacral and groin with ration to thigh with muscle spasm with hope of epidural injection in the back. Dr. Alvarez evaluated the patient and he suspects with the groin pain possibility of left hip fracture therefore x-ray of left hip with pelvis and x- ray sacrum ordered. Further management after the x-ray. Continue pain management. 02/22: Lumbar spine MRI shows mild to moderate canal narrowing at L2-3, severe bilateral L5 and bilateral L2 foraminal stenosis with prior lumbar fusion and spinal stimulator. Left hip/pelvis x-ray negative for acute abnormality. Pain management informed about epidural injection indication as suggested by spine surgeon. Patient is still in pain. Mild leukocytosis possible inflammatory. #2. Hypertension: Continue home regimen including spironolactone with hold parameters as needed, PRN hydralazine. #3. Hyperlipidemia: continue patient home statin therapy. #4. Chronic Kidney Disease Stage II: Admission BUN/Cr 18/0.77, GFR 76, baseline renal function 0.7-0.9, repeat creatinine 0.84. #5. Chronic normocytic anemia: Admission hemoglobin 9.1, MCV 91.5, repeat hemoglobin is 9.4 #6. Restless leg syndrome: continue patient home Requip regimen. #7. DVT prophylaxis: Lovenox. #8. CODE status: Patient KELL is her who is and living will is currently. Discussed CODE status at length including difference between FULL code, DNR-CCA and DNR-CC status. Following discussions about the differences in these status, requested Full Code status. Charges/Coding Visit Charges Inpatient E&M: 94290 Subs Hosp L2
--- NOTE | 2025-02-22 15:54 | CASEMGMT ---
Social Work SW met w/pt and in room in regard to discharge plan. Pt states she is supposed to be getting an injection in her back and is hoping it will help w/the pain. We discussed discharge plan, pt does still plan to return home and feels she can manage with the support of her family. We discussed going to the outpt PT appt set up for 03/02 vs home health. Pt is now open to home health care. SW provided to pt a list of [place] [facility] facility facilities in network w/pt's insurance, in pt's preferred geographic area, and complete with quality and resource use data. SW asked them to pick a couple of organizations they would like to consider, and SW will have the SW tomorrow follow up with them for choices. Pt and state understanding. Plan: home w/HHC, referrals to be made tomorrow based on pt's choices. KELSEY Strange
--- NOTE | 2025-02-22 16:53 | PCM.PN.ORT ---
Subjective Subjective Saw patient In 321. She Was Able to Get an MRI Eventually. Continues to have significant pain but improves as she stands and walks. She walked with PT and also did steps today. She continues to have pain into the left groin and anterior thigh up to the knee. Objective Data Objective Data Vital Signs: Vital Signs Temp Pulse Resp BP Pulse Ox O2 Del Method O2 Flow Rate 97.2 F L 86 15 150/84 H 97 Room Air 2 02/22/25 14:00 02/22/25 14:00 02/22/25 14:00 02/22/25 14:00 02/22/25 14:00 02/22/25 14:00 02/19/25 07:55 Oxygen Flow Rate (L/min) 2 Oxygen Delivery Method Room Air Weight: 131 lb 6.328 oz Body Mass Index (BMI) 24.0 Intake & Output: Intake and Output for Last 24 Hours 02/20/25 02/21/25 02/22/25 23:59 23:59 23:59 Intake Total 1900 / 2150 1000 / 1000 300 / 300 Output Total 550 / 550 Balance 1900 / 2150 1000 / 1000 -250 / -250 Lab / Micro Data 02/22/25 06:38 02/22/25 06:38 Labs: Laboratory Results - last 24 hr 02/22/25 06:38: WBC 11.7 H, RBC 3.90 L, Hgb 11.7 L, Hct 35.4 L, MCV 90.8, MCH 30.0, MCHC 33.1, RDW Std Deviation 48.4 H, RDW Coeff of Bailee 14.6, Plt Count 300, MPV 9.3, Immature Gran % (Auto) 0.600, Neut % (Auto) 69.7, Lymph % (Auto) 23.7, [place] % (Auto) 5.7, Eos % (Auto) 0.1, Baso % (Auto) 0.2, Absolute Neuts (auto) 8.1 H, Absolute Lymphs (auto) 2.77, Nucleated RBC % 0, Sodium 134, Potassium 4.6, Chloride 100, Carbon Dioxide 24.0, Anion Gap 10, BUN 26 H, Creatinine 0.82, Estim Creat Clear Calc 40.39 L, Est GFR (MDRD) Non-Af 70, BUN/Creatinine Ratio 31.3 H, Glucose 91, Calcium 9.3 Micro: Microbiology 12/12/25 23:30 Urine, Clean Catch Urine Culture - Final Proteus mirabilis Radiography Diagnostic Testing: Radiology Impression Lumbar Spine MRI 02/21/25 13:24 IMPRESSION: 1. Ifrv-tx-ktvgnvbi canal narrowing at L2-3. 2. Prior lumbar fusion and placement of spinal stimulator leads. 3. Severe bilateral L5 and bilateral L2 foraminal stenosis. Reading [facility] Hip/Pelvis X-Ray 02/21/25 14:00 IMPRESSION: No evidence for acute abnormality. Reading [facility] Physical Exam Narrative Examination of the back shows midline left paraspinal redness. Neurologic motion of lower extremity shows 5 out of 5 power except for left hip flexion which is grade 4 - due to pain. Hip range of motion is painful at all extremes both sides. Assessment & Plan Assessment/Plan (1) Spinal cord stimulator status: (2) History of lumbar fusion: (3) Radiculopathy of lumbar region: (4) Spinal stenosis of lumbar region with neurogenic claudication: PLAN: Plan Reviewed x-rays of the hips, these show mild degenerative arthritic changes but no obvious fractures or injuries. It is unlikely patient has any fractures since she has been able to walk with PT and is able to have at least grade 4 strength in the left hip flexion. Reviewed MRI of lumbar spine done today. These show adjacent segment degeneration at L2-3 as well as L5-S1 causing stenosis, most severe in the foraminal area on both sides at L2-3 worse on the left. Discussed that the L2-3 foraminal stenosis likely the source of her left anterior thigh pain. She may also get some buttock pain from the L5-S1 disc degeneration and stenosis. This will also affect her walking distance with neurogenic claudication. At this time patient has a history of less than 1 week of duration of left anterior thigh pain. She may be able to get some benefit from steroid treatment which may be oral or injectable through pain management. Patient may follow-up with me as an outpatient if steroids, injections or physical therapy do not help. Patient was in agreement. Answered all questions. Orthopedics will sign off. Charges/Coding Visit Charges Inpatient E&M: 13741 Subs Hosp L3
[2025-02-23] VITALS (13 sets, daily range): BP systolic 127–181; BP diastolic 60–95; PULSE 66–95; RESP 14–16; TEMP 36.3–36.7; O2SAT 95–100; BMI 23.2
[2025-02-23] MEDS: MethylPREDNISolone DosePak 4 MG BOX PO (07:54)
[2025-02-23] MEDS: Senna/Docusate Sodium 1 Tablet 2 TABLET PO ×2 (07:57→21:21)
--- NOTE | 2025-02-23 12:01 | CASEMGMT ---
Addendum entered by Darleen Cortes 02/23/25 15:04: [facility] Alternate of [facility] if pt would d/c tomorrow. Discharge timing unknown at this time. SW to follow. MICHAEL Carvajal Original Note: Social Work- SW met with pt and pt spouse to follow up on HHC choices. Pt [facility] and [facility] as top choices. SW refered to [facility]. Pt having epidural this afternoon; SW to follow for referral updates. Pt dtr Roxy asked to speak with SKYLER upon her arrival. SKYLER met with Roxy who shares that she is moving out Friday and pt 89 yo spouse will be the only person there to assist pt. Roxy reports that there is no bathroom or bedroom on first floor, as well as no ability to make a bedroom on first floor. Roxy shared that pt sleeps in recliner and does have a bedside commode, but 89yo father needs to carry it upstairs to dump it, which is dangerous and difficult. Roxy reports that she does not drive and is unable to get back and forth to home to assist father. Roxy reports concerns regarding pt return home due to care needs and stress on father. SKYLER educated HHC and other in-home services, as well as pt preference. SKYLER educated on pt therapy evals. 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 MICHAEL Carvajal
--- NOTE | 2025-02-23 13:17 | PN.HOSP_ITS ---
Reason for Visit Chief Complaint: Intractable back pain, BL radiculopathy Objective Data Objective Data Vital Signs: Vital Signs Temp Pulse Resp BP Pulse Ox O2 Del Method O2 Flow Rate 97.8 F 66 14 151/76 H 98 Room Air 2 02/23/25 07:49 02/23/25 07:49 02/23/25 07:49 02/23/25 07:49 02/23/25 07:49 02/23/25 08:51 02/19/25 07:55 Oxygen Flow Rate (L/min) 2 Oxygen Delivery Method Room Air Weight: 126 lb 15.78 oz Body Mass Index (BMI) 23.2 Intake & Output: Intake and Output for Last 24 Hours 02/21/25 02/22/25 02/23/25 23:59 23:59 23:59 Intake Total 1000 / 1000 300 / 300 Output Total 900 / 900 1000 / 1000 Balance 1000 / 1000 -600 / -600 -1000 / -1000 Lab / Micro Data 02/22/25 06:38 02/22/25 06:38 Micro: Microbiology 02/18/25 23:30 Urine, Clean Catch Urine Culture - Final Proteus mirabilis Physical Exam Narrative Seen and examined. Patient complained of severe pain over left sacral buttock region with radiation to thigh and she was in despair/loss of hope and depressed. Oxycodone was given. Plan for epidural injection early in the afternoon. She has a spinal cord stimulator. History of lumbar spine surgery twice. Physical exam General: Alert, Oriented x3, Cooperative. BMI 23.4 kg/m? HEENT: Atraumatic, PERRLA, EOMI, Normocephalic. Oral: No Gingival or Mucosal Lesions/ Ulcerations Neck: Supple, No JVD, Negative Carotid Bruits Chest wall/Lungs: Air entry equal in bilateral lung bases. No crepitation/rhonchi Cardiovascular: Regular rate and rhythm, Normal S1,S2, No M/G/R Abdomen: Bowel Sounds Present, Soft, Non Tender, Non-Distended : No dysuria. No renal angle tenderness. No suprapubic tenderness. Extremities: No edema, Capillary Refill Less than 3 Seconds Skin: Small bruise over left sacral area from fall, almost healed, present on admission. Musculoskeletal: No tenderness present on the left groin area. Bilateral degenerative knee arthritis Spine: Mild tenderness present on lower lumbar and sacral area more on the left side. Neurological: Cranial nerves II-XII grossly intact, DTR 2+/4. No acute focal neurological deficit. Psych/Mental Status: Flat affect Assessment & Plan Assessment/Plan (1) Intractable back pain: PLAN: Plan The patient is an 84 y/o F ED on 02/18/2025 with history of 2 to 3 days of progressively worsening lumbar back pain with some radiation to the upper thigh regions. There is no improvement on initiation of prednisone. #1. Acute on Chronic Intractable Lumbar Back Pain with radiation to BL LE/Radiculopathy: Patient is being admitted on [facility] floor. Lumbar spine CT reviewed which shows lumbar spondylosis with multilevel facet arthropathy and diffuse posterior disc bulge producing encroachment upon neural exit foramina. Degenerative changes of sacroiliac joint. Diffuse reduced bone density. Mild anterolisthesis of L4 and L5 and mild L2 and L3 retrolisthesis Pain management. On tizanidine, low-dose gabapentin, Medrol Dosepak and IV pain medication. Continue stool softener. Patient not able to get MRI because of spinal cord stimulator. Orthospine consulted 02/20: Patient not seen by Dr. Paul Gutierrez yet. Discussed about the conservative management including pain control, spinal cord stimulator, PT OT and rehab. Has moved bowels yesterday. 02/21: Pain management consulted for severe pain in the left sacral and groin with ration to thigh with muscle spasm with hope of epidural injection in the back. Dr. Alvarez evaluated the patient and he suspects with the groin pain possibility of left hip fracture therefore x-ray of left hip with pelvis and x- ray sacrum ordered. Further management after the x-ray. Continue pain management. 02/22: Lumbar spine MRI shows mild to moderate canal narrowing at L2-3, severe bilateral L5 and bilateral L2 foraminal stenosis with prior lumbar fusion and spinal stimulator. Left hip/pelvis x-ray negative for acute abnormality. Pain management informed about epidural injection indication as suggested by spine surgeon. Patient is still in pain. Mild leukocytosis possible inflammatory. 02/23: NPO. Discussed with pain management yesterday. Epidural injection planned for today. Labs reviewed. Mild leukocytosis probably inflammatory/reactive in nature. #2. Hypertension: Continue home regimen including spironolactone with hold parameters as needed, PRN hydralazine. #3. Hyperlipidemia: continue patient home statin therapy. #4. Chronic Kidney Disease Stage II: Admission BUN/Cr 18/0.77, GFR 76, baseline renal function 0.7-0.9, repeat creatinine 0.84. #5. Chronic normocytic anemia: Admission hemoglobin 9.1, MCV 91.5, repeat hemoglobin is 9.4 #6. Restless leg syndrome: continue patient home Requip regimen. #7. DVT prophylaxis: Lovenox. #8. CODE status: Patient KELL is her who is and living will is currently. Discussed CODE status at length including difference between FULL code, DNR-CCA and DNR-CC status. Following discussions about the differences in these status, requested Full Code status. Charges/Coding Visit Charges Inpatient E&M: 00609 Subs Hosp L2
--- NOTE | 2025-02-23 13:23 | PCM.PRE.AN2 ---
ASA Classification* ASA Classification ASA Classification: 2 Assessment & Plan Anesthesia* Anesthesia Assessment Anesthesia Assessment: Discussed sedation and/or anesthesia options, risks, benefits, and alternatives with patient/parents/legal guardian/POA. Questions invited. The patient/parents/legal guardian/POA seems to understand and agrees to proceed with anesthesia plan. Reviewed the physical assessment, medical history, allergy history and patient home medications list prior to surgery/procedure/anesthetic and documented any changes. Performed airway and anesthesia risk assessments. Anesthesia Type Anesthesia Type: MAC History Source History Obtained from:: Patient and Chart Anesthesia Focused Assessment* Temperature: 97.8 F Pulse Rate: 66 Blood Pressure: 151/76 Respiratory Rate: 14 Pulse Ox: 98 Oxygen Delivery Method: Room Air Airway Assessment Mouth opens: >3 cm Mallampati Score: III Teeth Condition: Caps/Crowns (Patient has a crown. It is tight.) and Missing (Patient is missing a couple molars.) Neck Range of motion (ROM): Full ROM Labs Anesthesia Preop lab: CBC WBC, (4.4-11.0) 11.7 K/mm3 H 02/22/25, 06:38 RBC, (4.2-5.4) 3.90 M/mm3 L 02/22/25, 06:38 Hgb, (12.0-15.0) 11.7 g/dL L 02/22/25, 06:38 Hct, (37-47) 35.4 % L 02/22/25, 06:38 Plt Count, (150-450) 300 K/mm3 02/22/25, 06:38 CHEMISTRY Potassium, (3.3-5.1) 4.6 mmol/L 02/22/25, 06:38 Sodium, (133-145) 134 mmol/L 02/22/25, 06:38 Magnesium, (1.6-2.6) 2.6 mg/dL 11/14/23, 04:41 Phosphorus, (2.5-4.9) 2.1 mg/dL L 11/13/23, 19:05 BUN, (4-19) 26 mg/dL H 02/22/25, 06:38 Creatinine, (0.70-1.20) 0.82 mg/dL 02/22/25, 06:38 Glucose, (70-99) 91 mg/dL 02/22/25, 06:38 POC Glucose, (70-110) 110 mg/dL 12/05/19, 19:30 TSH, (0.358-3.74) 6.57 uIU/mL H 03/31/21, 00:20 COAG PT, (11.7-14.9) 13.0 SECONDS 12/05/19, 19:06 Pre-Assessment Diagnosis/Proposed Procedure Planned Operative Procedure(s): Lumbar transforaminal epidural steroid injection at L2-L3. 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 When Was Last Pacemaker Check QUESTION #4 FULL TEXT: You/Your Family Experience fever (hyperthermia) with Anesthesia Last Oral Intake Last Oral intake: Last Oral Intake NPO since No Meds taken in AM with sips of water? Meds patient instructed to take am of surgery Any additional information?: Yes Meds taken in AM with sips of water?: Yes PONV PONV - injection maintenance technician: PONV - injection maintenance technician Female HX of Motion Sickness HX of N/V After Surgery Non-Smoker Duration of Surgery greater than 60 minutes Number of Risk Factors PONV Score Height & Weight Height & Weight: Anesthesia: Height & Weight Height 5 ft 2 in 02/19/25 00:47 Weight: 57.6 kg 02/23/25 03:40 Body Mass Index (BMI) 23.2 02/23/25 03:40 Respiratory Assessment Respiratory Assessment - injection maintenance technician: Respiratory Tract Infection Hx - injection maintenance technician Hx Respiratory Tract Infection No 02/22/25 22:13 STOP Sleep Apnea STOP Sleep Apnea - injection maintenance technician: STOP Sleep Apnea - injection maintenance technician Hx Hypertension Yes 02/19/25 15:28 Hx Sleep Apnea No 02/19/25 00:42 CPAP BIPAP Do you snore loudly (louder Yes 02/19/25 00:42 than talking or can be heard Do you often feel tired/ No 02/19/25 00:42 fatigued/ sleepy during daytime? Has anyone observed you stop No 02/19/25 00:42 breathing during sleep? STOP Results Positive 02/19/25 00:42 QUESTION #5 FULL TEXT : Do you snore loudly (louder than talking or can be heard through closed doors)? Tobacco Use History Tobacco Use History - injection maintenance technician: Tobacco Use History - injection maintenance technician Tobacco Use Smoking Status Never smoker 12 00:42 Hx Tobacco Use No 02/19/25 00:42 Years Smoking Packs Smoked per Day Smoking Cessation Date was within the last 15 years Hx Smoking Cessation Date Hx Smoking Cessation Counseling Hematologic Medial History Hematologic Hx - injection maintenance technician: Hematologic Medical Hx - pumper hand Hx of Blood Transfusion Yes 02/19/25 00:42 Hx of Transfusion in last 3 No 02/19/25 00:42 Months Date of Last Transfusion (if within last 3 months) Ever experience any problems No 02/19/25 00:42 with transfusion(s)? Specify any problems Hx of Preganancy in last 3 No 02/19/25 00:42 Months Nurse Filling Out Transfusion DREDICK 02/19/25 00:42 & Questions: Date: 02/19/25 02/19/25 00:42 Time: 00:51 02/19/25 00:42 Patient unable to answer at this time (ie. confused, unrespo /Reproduction History /Reproductive History - injection maintenance technician: /Reproductive Hx- injection maintenance technician Hx Now No 02/22/25 22:13 Gestational Age (in weeks): EDC: Hx Hx Para Hx Section SAB No 02/22/25 22:13 Does the father of the baby or his family experience fever w Father of the baby Malignant Hypertension history comment Active Medications Active Medications: Current Medications Generic Name Dose Route Start Last Admin Trade Name Freq PRN Reason Stop Dose Admin Acetaminophen 650 mg 02/19/25 00:42 02/23/25 10:16 Acetaminophen 325 Mg Tablet PO 650 mg Q4H PRN PRN Administration Fever, pain 1-1010 Al Hydroxide/Mg Hydroxide 30 ml 02/19/25 00:42 Mag Hydrox/Al Hydrox/Simeth 30 Ml Udc PO Q6H PRN PRN Gastric Burning Albuterol Sulfate 2.5 mg 02/19/25 00:42 Albuterol 2.5 Mg/3 Ml Vial.Neb. INHALATION Q2H PRN PRN Dyspnea, wheezing Aspirin 81 mg 02/19/25 08:00 02/23/25 07:51 Aspirin 81 Mg Tab.Chew PO Not Given BREAKFAST FLOWER Chlorthalidone 12.5 mg 02/22/25 10:30 02/23/25 07:53 Chlorthalidone 25 Mg Tablet PO 12.5 mg DAILY FLOWER Administration Protocol Enoxaparin Sodium 40 mg 02/19/25 10:00 02/22/25 08:04 Enoxaparin 40 Mg/0.4 Ml Syringe SC 40 mg On Hold: 02/22/25 17:40 DAILY FLOWER Administration Resume: 02/24/25 09:55 Gabapentin 100 mg 02/19/25 00:42 02/23/25 13:10 Gabapentin 100 Mg Capsule PO Not Given TIDCM FLOWER Guaifenesin 20 ml 02/19/25 00:42 Guaifenesin 10 Ml Udc (200mg/10ml) PO Q4H PRN PRN COUGH Hydralazine HCl 10 mg 02/19/25 00:42 02/22/25 06:26 Hydralazine 20 Mg/Ml Vial IV 10 mg Q4H PRN PRN Administration SBP > 180 Protocol Sodium Chloride 250 mls @ 15 mls/hr 02/19/25 00:50 IV .[id number] PRN Saline Flush Sodium Chloride 250 mls @ 15 mls/hr 02/19/25 00:50 IV .[id number] PRN Additional IVPB Infusion Melatonin 3 mg 02/19/25 00:42 02/20/25 22:05 Melatonin 3 Mg Tablet PO 3 mg QHS PRN PRN Administration INSOMNIA Methylprednisolone 4 mg 02/20/25 12:00 02/23/25 07:54 Methylprednisolone Dosepak 4 Mg Box PO 02/23/25 23:59 4 mg 0800 FLOWER Administration Taper Morphine Sulfate 2 mg 02/19/25 00:42 Morphine 2 Mg/Ml Syringe IV Q3H PRN PRN Pain Score 6-10 Ondansetron HCl 4 mg 02/19/25 00:42 02/21/25 08:08 Ondansetron 4 Mg/2 Ml Vial IV 4 mg Q8H PRN PRN Administration NAUSEA/VOMITING Oxycodone HCl 5 mg 02/19/25 00:42 02/23/25 10:17 Oxycodone 5 Mg Tablet PO 5 mg Q4H PRN PRN Administration Pain Score 4-10 Polyethylene Glycol 17 gm 02/19/25 14:05 02/23/25 07:53 Polyethylene Glycol 3350 17 Gm Packet PO Not Given DAILY FLOWER Pramipexole Dihydrochloride 1.5 mg 02/19/25 22:00 02/22/25 22:09 Pramipexole Di-Hcl 1 Mg Tablet PO Not Given QHS FLOWER Pravastatin Sodium 20 mg 02/19/25 22:00 02/22/25 22:09 Pravastatin 20 Mg Tablet PO 20 mg QHS FLOWER Administration Senna/Docusate Sodium 2 tablet 02/19/25 22:00 02/23/25 07:57 Senna/Docusate Sodium 1 Tablet PO 2 tablet BID FLOWER Administration Sodium Chloride 10 - 40 ml 02/19/25 00:50 02/22/25 06:26 0.9% Saline Lock 10 Ml Syringe IV 10 ml UD PRN Administration SALINE FLUSH Spironolactone 25 mg 02/22/25 10:00 02/23/25 07:54 Spironolactone 25 Mg Tablet PO 25 mg DAILY FLOWER Administration Protocol Tizanidine HCl 2 mg 02/19/25 00:42 02/23/25 05:56 Tizanidine Hcl 2 Mg Tablet PO 2 mg Q8H PRN PRN Administration Muscle spasm/strain PFSH Medical History Alcohol abuse Insomnia Carotid artery stenosis History of spinal stenosis Chronic anemia Syncope Elevated d-dimer HLD (hyperlipidemia) HTN (hypertension) Back pain with radiculopathy Anxiety and depression RLS (restless legs syndrome) BPPV (benign paroxysmal positional vertigo) Home Medications ?Medication ?Instructions ?Recorded ?Last Taken ?Type aspirin 81 mg chewable tablet 81 mg PO DAILY@0800 heart health 02/26/13 12/21/24 History calcium 600 mg (as 600 mg PO DINNER supplement 02/26/13 12/21/24 History carbonate)-vitamin D3 20 mcg (800 unit) tablet pravastatin 20 mg tablet 20 mg PO QHS cholesterol 12/05/19 12/20/24 History cholecalciferol (vitamin D3) 25 25 mcg PO DAILY 12/21/24 12/21/24 History mcg (1,000 unit) capsule magnesium 200 mg tablet 400 mg PO DAILY 12/21/24 12/21/24 History ropinirole 4 mg tablet 4 mg PO QHS 12/21/24 12/20/24 History potassium chloride 20 mEq 20 meq PO QDAY 01/18/25 Unknown History tablet,extended release (K-Tab) spironolactone 25 mg tablet 25 mg PO DAILY 02/19/25 Unknown History Allergy/AdvReac Type Severity Reaction Status Date / Time Sulfa (Sulfonamide Allergy Swelling Verified 02/18/25 20:55 Antibiotics) hydrocodone bitartrate (From AdvReac Vomiting Verified 02/18/25 20:55 Vicodin) promethazine HCl (From AdvReac Vomiting Verified 02/18/25 20:55 Phenergan) Family History Mother Heart disease Hypertension Thyroid disorder Father Heart disease Hypertension CVA (cerebral vascular accident) Grandmother CAD (coronary artery disease) Myocardial infarction Daughter Diabetes Surgical History Spinal cord stimulator status History of surgery History of bunionectomy H/O melanoma excision History of tonsillectomy History of colonoscopy H/O abdominal surgery Previous back surgery S/P cholecystectomy Social History household members: spouse Smoking Status: Never smoker alcohol intake: never substance use type: does not use Review of Systems (Anesthesia) ROS Narrative System reviewed and no additional complaints, except as documented.
--- NOTE | 2025-02-23 13:30 | RAD_ITS ---
PROCEDURE: Intraoperative fluoroscopic services. 02/23/2025 REASON FOR EXAM: TRANSFORAMINAL EPIDURAL L2-3 TECHNIQUE: Procedure Code: RADSPCV Modality: DX Procedure: SPINE 1 VIEW ANY LEVEL. Intraoperative fluoroscopic services provided for L2-L3 transforaminal epidural. Fluoroscopy: 25.2 seconds. Radiation dose: 5.85 mGy. COMPARISON: None FINDINGS: Intraoperative fluoroscopic services provided for transforaminal epidural at the L2-L3 level. RAD/Spine 1 View Any Level IMPRESSION: Intraoperative fluoroscopic services provided for transforaminal L2-L3 epidural Reading Location: [facility]
--- NOTE | 2025-02-23 13:39 | NURSING ---
1315-off floor for scheduled procedure
[2025-02-23] MEDS: Lidocaine 1% (5 ml sdv) 5 ML Vial 3 ML IV (14:44)
--- NOTE | 2025-02-23 15:08 | PCM.POST.ANE ---
Anesthesia: Postop Eval I Current Vital Signs Temperature: 97.4 F Pulse Rate: 80 Blood Pressure: 150/95 Respiratory Rate: 16 Pulse Ox: 100 Oxygen Delivery Method: Room Air Assessment Airway patent: Yes Spontaneous unlabored respirations: Yes Mental status: Awake and Calm nausea: No Vomiting: No Anesthesia Complication: No Fluid Hydration Crystalloid volume administer (ml): 200 Total IV fluid infused: 200 Progress Note Anesthesia document: Postop Eval 1 completed: Yes
[2025-02-23] MEDS: 0.9% Saline Lock 10 ML Syringe IV ×2 (16:01→20:38)
--- NOTE | 2025-02-23 16:37 | OP.PCM_ITS ---
Operative Report (Standard) Operative Information Date of Procedure: 02/23/25 Pre-Operative Diagnosis: Lumbar radiculopathy Post-Operative Diagnosis: Lumbar radiculopathy Surgery/Procedure Performed: Left L2-L3 Transforaminal steroid injection dairy farm operator: No Type of Anesthesia: MAC RN Documented Start/Stop Times: Operation Date: 02/23/25 14:30 Case Time Into Pre-Op 02/23/25 13:27 Anesthesia Start 02/23/25 14:39 Into Room 02/23/25 14:39 Procedure Start 02/23/25 14:49 Procedure End 02/23/25 14:57 Anesthesia End 02/23/25 15:01 Out of Room 02/23/25 15:01 Into Recovery 02/23/25 15:05 Out of Recovery 02/23/25 15:32 Procedure Start Time: 14:49 Procedure Stop Time: 14:57 Select all DRAINS/GRAFTS/IMPLANTS that apply: None Estimated Blood Loss: nil Specimen collected: No Description of surgery: The patient was admitted to the preoperative area. Vital signs were checked and the patient was moved to the procedure area and placed in the prone position. Standard monitors were applied. Sterile prep and drape was performed in a regular manner. Using fluoroscopic guidance, the required levels were identified under AP and oblique views. Local anesthesia was administered using 25g needle using Lidocaine 0.5% to anesthetize the skin and subcutaneous tissue. A 22-gauge spinal needle was placed under fluoroscopic guidance until reaching the 6 o`clock position of the pedicle above the desired foramen, the needle was gradually walked down to the upper portion of the desired foramen, and the needle was then slightly advanced into the foramen. The position was confirmed with fluoroscopy using AP lateral and oblique views as required. Contrast material, Omnipaque 5cc was injected under live fluoroscopy vis extension tubing demonstrated appropriate epidurogram, epidural spread without evidence of vascular uptake Negative blood and CSF aspiration was confirmed. After confirmation of needle position, a mixture of 4 cc Bupivacaine 0.25% and 40 mg of depomedrol was injected and divided between the levels. The patient tolerated the procedure well. [place] were removed intact. The patient was cleansed and Band-Aid was applied. Surgical Findings: n/a Complications Complications: No
--- NOTE | 2025-02-23 22:16 | POSTOPAN2_ITS ---
Anesthesia Postop Eval I Sum Postop Eval Completion status Anesthesia document: Postop Eval 1 completed: Yes Anesthesia Postop Eval I Summary Anesthesia Postop Eval I Summary: Anesthesia Postop Eval I: Assessment Summary Airway patent Yes 02/23/25 15:09 POWER BRAKE OPERATOR.[email or web address] Spontaneous unlabored Yes 02/23/25 15:09 POWER BRAKE OPERATOR.CHIQUITA respirations Mental status Awake,Calm 02/23/25 15:09 POWER BRAKE OPERATOR.SKOBPavithra nausea No 02/23/25 15:09 POWER BRAKE OPERATOR.MAYROBPavithra Vomiting No 02/23/25 15:09 POWER BRAKE OPERATOR.MARYOBPavithra Anesthesia Postop Eval I: Fluid Summary Crystalloid volume administer 200 02/23/25 15:09 POWER BRAKE OPERATOR.SKOBY (ml) Colloids volume administered ( ml) Blood Product volume administered (ml) Total IV fluid infused 200 02/23/25 15:09 POWER BRAKE OPERATOR.MARYOBPavithra Anesthesia Postop Eval I: Summary Notes Anesthesia Complication No 02/23/25 15:09 POWER BRAKE OPERATOR.CHIQUITA Anesthesia Complication Comment: Post-operative progress note Anesthesia: Postop Eval II Evaluation Mental status: Awake and Calm Pain Level: 1 nausea: No Vomiting: No Complications Anesthesia Complication: No
--- NOTE | 2025-02-23 22:16 | PCM.POSTANE2 ---
Anesthesia Postop Eval I Sum Postop Eval Completion status Anesthesia document: Postop Eval 1 completed: Yes Anesthesia Postop Eval I Summary Anesthesia Postop Eval I Summary: Anesthesia Postop Eval I: Assessment Summary Airway patent Yes 02/23/25 15:09 LIMNOLOGY TEACHER.[email or web address] Spontaneous unlabored Yes 02/23/25 15:09 LIMNOLOGY TEACHER.CHIQUITA respirations Mental status Awake,Calm 02/23/25 15:09 LIMNOLOGY TEACHER.SKOBPavithra nausea No 02/23/25 15:09 LIMNOLOGY TEACHER.MARYOBPavithra Vomiting No 02/23/25 15:09 LIMNOLOGY TEACHER.MARYOBPavithra Anesthesia Postop Eval I: Fluid Summary Crystalloid volume administer 200 02/23/25 15:09 LIMNOLOGY TEACHER.SKOBY (ml) Colloids volume administered ( ml) Blood Product volume administered (ml) Total IV fluid infused 200 02/23/25 15:09 LIMNOLOGY TEACHER.MARYOBPavithra Anesthesia Postop Eval I: Summary Notes Anesthesia Complication No 02/23/25 15:09 LIMNOLOGY TEACHER.CHIQUITA Anesthesia Complication Comment: Post-operative progress note Anesthesia: Postop Eval II Evaluation Mental status: Awake and Calm Pain Level: 1 nausea: No Vomiting: No Complications Anesthesia Complication: No
[2025-02-24 02:53] VITALS: BP 125/68; PULSE 71; RESP 18; TEMP 36.6; O2SAT 96
[2025-02-24 04:47] VITALS: BMI 23.1
[2025-02-24 07:25] VITALS: O2SAT 96
[2025-02-24 07:31] LABS: Hematocrit 39.2 % (37-47); Hemoglobin 12.4 g/dL (12.0-15.0); Immature Granulocytes Count 0.080 X10^3/uL (0.0-0.0); Mean Corp Hgb Conc 31.6 g/dL (32-36); Mean Corpuscular Volume 91.8 fL (81-99); Mean Platelet Vol. 9.4 fl (6.2-12.0); NRBC Flagged by Analyzer 0 % (0-5); Platelet Count 336 K/mm3 (150-450); RBC Distribution Width CV 15.1 % (11.6-14.6); RBC Distribution Width SD 50.4 fl (35.1-43.9); Red Blood Count 4.27 M/mm3 (4.2-5.4); White Blood Count 13.5 K/mm3 (4.4-11.0)
[2025-02-24 07:37] VITALS: BP 143/71; PULSE 77; RESP 14; TEMP 36.4; O2SAT 100
[2025-02-24] MEDS: Senna/Docusate Sodium 1 Tablet 2 TABLET PO (07:40)
[2025-02-24 08:07] LABS: Anion Gap 12 (5-15); BUN 24 mg/dL (4-19); BUN/Creat Ratio 30.5 RATIO (10-20); Calcium,Total 9.7 mg/dL (7.6-11.0); Carbon Dioxide 23.3 mmol/L (21.0-32.0); Chloride 99 mmol/L (98-108); Estimated Creatinine Clearance 41.40 ml/min (50-250); Glucose 106 mg/dL (70-99); Potassium 4.1 mmol/L (3.3-5.1)
--- NOTE | 2025-02-24 10:25 | NURSING ---
ferny kee RN updated on dr. mccormack's concern for drowsiness and request for nurse to hold oxyir for 7-8hrs
--- NOTE | 2025-02-24 11:32 | CASEMGMT ---
Social Work- SW met with pt and pt dtr to update that [facility] accepted with SOC Friday. Pt and pt dtr agreeable. Pt reports being painful and reports that the chronic nature of the severe pain is beginning to take an emotional/mental toll. SW offered support and active listening, as well as discussion on coping techniques. SW remains available to follow. MICHAEL Carvajal
[2025-02-24 14:43] VITALS: BP 108/63; PULSE 99; RESP 14; TEMP 36.4; O2SAT 95
--- NOTE | 2025-02-24 16:33 | PN.HOSP_ITS ---
Reason for Visit Chief Complaint: Intractable back pain, BL radiculopathy Objective Data Objective Data Vital Signs: Vital Signs Temp Pulse Resp BP Pulse Ox O2 Del Method O2 Flow Rate 97.5 F L 99 14 108/63 95 Room Air 2 02/24/25 14:43 02/24/25 14:43 02/24/25 14:43 02/24/25 14:43 02/24/25 14:43 02/24/25 14:43 02/19/25 07:55 Oxygen Flow Rate (L/min) 2 Oxygen Delivery Method Room Air Weight: 126 lb 12.253 oz Body Mass Index (BMI) 23.1 Intake & Output: Intake and Output for Last 24 Hours 02/22/25 02/23/25 02/24/25 23:59 23:59 23:59 Intake Total 300 / 300 200 / 400 200 / 200 Output Total 900 / 900 1701 / 1701 600 / 600 Balance -600 / -600 -1501 / -1301 -400 / -400 Lab / Micro Data 02/24/25 06:47 02/24/25 06:47 Labs: Laboratory Results - last 24 hr 02/24/25 06:47: WBC 13.5 H, RBC 4.27, Hgb 12.4, Hct 39.2, MCV 91.8, MCH 29.0, M CHC 31.6 L, RDW Std Deviation 50.4 H, RDW Coeff of Bailee 15.1 H, Plt Count 336, MPV 9.4, Immature Gran % (Auto) 0.600, Neut % (Auto) 71.4 H, Lymph % (Auto) 20.7, [place] % (Auto) 7.0, Eos % (Auto) 0.1, Baso % (Auto) 0.2, Absolute Neuts (auto) 9.7 H, Absolute Lymphs (auto) 2.79, Nucleated RBC % 0, Sodium 134, Potassium 4.1, Chloride 99, Carbon Dioxide 23.3, Anion Gap 12, BUN 24 H, Creatinine 0.79, Estim Creat Clear Calc 41.40 L, Est GFR (MDRD) Non-Af 74, B UN/Creatinine Ratio 30.5 H, Glucose 106 H, Calcium 9.7 Micro: Microbiology 02/18/25 23:30 Urine, Clean Catch Urine Culture - Final Proteus mirabilis Physical Exam Narrative Seen and examined. Patient stated she did not feel much improvement after epidural injection. Complain of severe pain. She feels little less active/lethargic. Advised on holding oxycodone for 6 to 8 hours She has a spinal cord stimulator. History of lumbar spine surgery twice. Physical exam General: Mild lethargic oriented x3, Cooperative. BMI 23.4 kg/m? HEENT: Atraumatic, PERRLA, EOMI, Normocephalic. Oral: No Gingival or Mucosal Lesions/ Ulcerations Neck: Supple, No JVD, Negative Carotid Bruits Chest wall/Lungs: Air entry equal in bilateral lung bases. No crepitation/rhonchi Cardiovascular: Regular rate and rhythm, Normal S1,S2, No M/G/R Abdomen: Bowel Sounds Present, Soft, Non Tender, Non-Distended : No dysuria. No renal angle tenderness. No suprapubic tenderness. Extremities: No edema, Capillary Refill Less than 3 Seconds Skin: Small bruise over left sacral area from fall, almost healed, present on admission. Musculoskeletal: No tenderness present on the left groin area. Bilateral degenerative knee arthritis Spine: Mild tenderness present on lower lumbar and sacral area more on the left side.. ROM restricted lower lumbar spine Neurological: Cranial nerves II-XII grossly intact, DTR 2+/4. No acute focal neurological deficit. Psych/Mental Status: Flat affect Assessment & Plan Assessment/Plan (1) Intractable back pain: PLAN: Plan The patient is an 84 y/o F ED on 02/18/2025 with history of 2 to 3 days of progressively worsening lumbar back pain with some radiation to the upper thigh regions. There is no improvement on initiation of prednisone. #1. Acute on Chronic Intractable Lumbar Back Pain with radiation to BL LE/Radiculopathy: Patient is being admitted on [facility] floor. Lumbar spine CT reviewed which shows lumbar spondylosis with multilevel facet arthropathy and diffuse posterior disc bulge producing encroachment upon neural exit foramina. Degenerative changes of sacroiliac joint. Diffuse reduced bone density. Mild anterolisthesis of L4 and L5 and mild L2 and L3 retrolisthesis Pain management. On tizanidine, low-dose gabapentin, Medrol Dosepak and IV pain medication. Continue stool softener. Patient not able to get MRI because of spinal cord stimulator. [facility] consulted 02/20: Patient not seen by Dr. Paul Gutierrez yet. Discussed about the conservative management including pain control, spinal cord stimulator, PT OT and rehab. Has moved bowels yesterday. 02/21: Pain management consulted for severe pain in the left sacral and groin with ration to thigh with muscle spasm with hope of epidural injection in the back. Dr. Alvarez evaluated the patient and he suspects with the groin pain possibility of left hip fracture therefore x-ray of left hip with pelvis and x- ray sacrum ordered. Further management after the x-ray. Continue pain management. 02/22: Lumbar spine MRI shows mild to moderate canal narrowing at L2-3, severe bilateral L5 and bilateral L2 foraminal stenosis with prior lumbar fusion and spinal stimulator. Left hip/pelvis x-ray negative for acute abnormality. Pain management informed about epidural injection indication as suggested by spine surgeon. Patient is still in pain. Mild leukocytosis possible inflammatory. 02/23: NPO. Discussed with pain management yesterday. Epidural injection planned for today. Labs reviewed. Mild leukocytosis probably inflammatory/reactive in nature. 02/24: Mild leukocytosis resolved. Possible reactive. No suspected cause/focus of infection. No fever. Advised to hold oxycodone for 5 to 6-hour for mild encephalopathy possible from oxycodone/opioids. #2. Hypertension: Continue home regimen including spironolactone with hold parameters as needed, PRN hydralazine. #3. Hyperlipidemia: continue patient home statin therapy. #4. Chronic Kidney Disease Stage II: Admission BUN/Cr 18/0.77, GFR 76, baseline renal function 0.7-0.9, repeat creatinine 0.84. #5. Chronic normocytic anemia: Admission hemoglobin 9.1, MCV 91.5, repeat hemoglobin is 9.4 #6. Restless leg syndrome: continue patient home Requip regimen. #7. DVT prophylaxis: Lovenox. #8. CODE status: Patient KELL is her who is and living will is currently. Discussed CODE status at length including difference between FULL code, DNR-CCA and DNR-CC status. Following discussions about the differences in these status, requested Full Code status. Charges/Coding Visit Charges Inpatient E&M: 90539 Subs Hosp L2
[2025-02-24 18:03] VITALS: BP 124/76; PULSE 102; RESP 16; TEMP 36.4; O2SAT 97
--- NOTE | 2025-02-24 18:49 | NURSING ---
DR ISBELL CAME AND SPOKE W/PT
[2025-02-24] MEDS: 0.9% Saline Lock 10 ML Syringe IV (19:27)
[2025-02-24 19:59] VITALS: BP 128/59; PULSE 79; RESP 18; TEMP 36.6; O2SAT 97
[2025-02-25 02:36] VITALS: BP 140/60; PULSE 68; RESP 16; TEMP 36.5; O2SAT 99
[2025-02-25 05:29] LABS: Hematocrit 36.4 % (37-47); Hemoglobin 12.0 g/dL (12.0-15.0); Immature Granulocytes Count 0.070 X10^3/uL (0.0-0.0); Mean Corp Hgb Conc 33.0 g/dL (32-36); Mean Corpuscular Volume 91.9 fL (81-99); Mean Platelet Vol. 9.0 fl (6.2-12.0); NRBC Flagged by Analyzer 0 % (0-5); Platelet Count 279 K/mm3 (150-450); RBC Distribution Width CV 14.8 % (11.6-14.6); RBC Distribution Width SD 50.1 fl (35.1-43.9); Red Blood Count 3.96 M/mm3 (4.2-5.4); White Blood Count 10.7 K/mm3 (4.4-11.0)
[2025-02-25 05:45] LABS: Anion Gap 10 (5-15); BUN 32 mg/dL (4-19); BUN/Creat Ratio 39.7 RATIO (10-20); Calcium,Total 9.1 mg/dL (7.6-11.0); Carbon Dioxide 24.0 mmol/L (21.0-32.0); Chloride 99 mmol/L (98-108); Estimated Creatinine Clearance 40.89 ml/min (50-250); Glucose 114 mg/dL (70-99); Potassium 4.0 mmol/L (3.3-5.1)
[2025-02-25 05:50] VITALS: BMI 22.2
[2025-02-25 07:38] VITALS: O2SAT 97
[2025-02-25 08:10] VITALS: BP 146/66; PULSE 66; RESP 16; TEMP 36.6; O2SAT 98
[2025-02-25] MEDS: HYDROmorphone Inj 0.2 MG/ML SYRINGE 0.5 MG IV (10:40)
[2025-02-25] MEDS: 0.9% Saline Lock 10 ML Syringe IV (10:41)
--- NOTE | 2025-02-25 10:58 | PN.HOSP_ITS ---
Reason for Visit Chief Complaint: Intractable back pain, BL radiculopathy Objective Data Objective Data Vital Signs: Vital Signs Temp Pulse Resp BP Pulse Ox O2 Del Method O2 Flow Rate 97.9 F 66 16 146/66 H 98 Room Air 2 02/25/25 08:10 02/25/25 08:10 02/25/25 08:10 02/25/25 08:10 02/25/25 08:10 02/25/25 08:10 02/19/25 07:55 Oxygen Flow Rate (L/min) 2 Oxygen Delivery Method Room Air Weight: 121 lb 11.123 oz Body Mass Index (BMI) 22.2 Intake & Output: Intake and Output for Last 24 Hours 02/23/25 02/24/25 02/25/25 23:59 23:59 23:59 Intake Total 200 / 400 200 / 400 200 / 200 Output Total 1701 / 1701 600 / 600 Balance -1501 / -1301 -400 / -200 200 / 200 Lab / Micro Data 02/25/25 05:05 02/25/25 05:05 Labs: Laboratory Results - last 24 hr 02/25/25 05:05: WBC 10.7, RBC 3.96 L, Hgb 12.0, Hct 36.4 L, MCV 91.9, MCH 30.3, MCHC 33.0, RDW Std Deviation 50.1 H, RDW Coeff of Bailee 14.8 H, Plt Count 279, MPV 9.0, Immature Gran % (Auto) 0.700, Neut % (Auto) 71.6 H, Lymph % (Auto) 20.4, [place] % (Auto) 6.8, Eos % (Auto) 0.4, Baso % (Auto) 0.1, Absolute Neuts (auto) 7.6, Absolute Lymphs (auto) 2.17, Nucleated RBC % 0, Sodium 134, Potassium 4.0, Chloride 99, Carbon Dioxide 24.0, Anion Gap 10, BUN 32 H, Creatinine 0.81, Estim Creat Clear Calc 40.89 L, Est GFR (MDRD) Non-Af 72, BUN/Creatinine Ratio 39.7 H, Glucose 114 H, Calcium 9.1 Micro: Microbiology 02/18/25 23:30 Urine, Clean Catch Urine Culture - Final Proteus mirabilis Physical Exam Narrative Seen and examined. Patient complain of severe pain and spasm over left buttock and thigh and crying. Dilaudid 0.5 mg IV and Flexeril 10 mg, each 1 dose ordered. Patient stated she did not feel much improvement after epidural injection. She has a spinal cord stimulator. History of lumbar spine surgery twice. Physical exam General: Alert, awake, oriented x3, Cooperative. BMI 23.4 kg/m? HEENT: Atraumatic, PERRLA, EOMI, Normocephalic. Oral: No Gingival or Mucosal Lesions/ Ulcerations Neck: Supple, No JVD, Negative Carotid Bruits Chest wall/Lungs: Air entry equal in bilateral lung bases. No crepitation/rhonchi Cardiovascular: Regular rate and rhythm, Normal S1,S2, No M/G/R Abdomen: Bowel Sounds Present, Soft, Non Tender, Non-Distended : No dysuria. No renal angle tenderness. No suprapubic tenderness. Extremities: No edema, Capillary Refill Less than 3 Seconds Skin: Small bruise over left sacral area from fall, almost healed, present on admission. Musculoskeletal: No tenderness present on the left groin area. Bilateral degenerative knee arthritis Spine: Mild tenderness present on lower lumbar and sacral area more on the left side.. ROM restricted lower lumbar spine Neurological: Cranial nerves II-XII grossly intact, DTR 2+/4. No acute focal neurological deficit. Psych/Mental Status: Flat affect, crying Assessment & Plan Assessment/Plan (1) Intractable back pain: PLAN: Plan The patient is an 84 y/o F ED on 02/18/2025 with history of 2 to 3 days of progressively worsening lumbar back pain with some radiation to the upper thigh regions. There is no improvement on initiation of prednisone. #1. Acute on Chronic Intractable Lumbar Back Pain with radiation to BL LE/Radiculopathy: Patient is being admitted on [facility] floor. Lumbar spine CT reviewed which shows lumbar spondylosis with multilevel facet arthropathy and diffuse posterior disc bulge producing encroachment upon neural exit foramina. Degenerative changes of sacroiliac joint. Diffuse reduced bone density. Mild anterolisthesis of L4 and L5 and mild L2 and L3 retrolisthesis Pain management. On tizanidine, low-dose gabapentin, Medrol Dosepak and IV pain medication. Continue stool softener. Patient not able to get MRI because of spinal cord stimulator. [facility] consulted 02/20: Patient not seen by Dr. Paul Gutierrez yet. Discussed about the conservative management including pain control, spinal cord stimulator, PT OT and rehab. Has moved bowels yesterday. 02/21: Pain management consulted for severe pain in the left sacral and groin with ration to thigh with muscle spasm with hope of epidural injection in the back. Dr. Alvarez evaluated the patient and he suspects with the groin pain possibility of left hip fracture therefore x-ray of left hip with pelvis and x- ray sacrum ordered. Further management after the x-ray. Continue pain management. 02/22: Lumbar spine MRI shows mild to moderate canal narrowing at L2-3, severe bilateral L5 and bilateral L2 foraminal stenosis with prior lumbar fusion and spinal stimulator. Left hip/pelvis x-ray negative for acute abnormality. Pain management informed about epidural injection indication as suggested by spine surgeon. Patient is still in pain. Mild leukocytosis possible inflammatory. 02/23: NPO. Discussed with pain management yesterday. Epidural injection planned for today. Labs reviewed. Mild leukocytosis probably inflammatory/reactive in nature. 02/24: Mild leukocytosis resolved. Possible reactive. No suspected cause/focus of infection. No fever. Advised to hold oxycodone for 5 to 6-hour for mild encephalopathy possible from oxycodone/opioids. 02/25: Patient on oxycodone as needed. Tizanidine 2 mg 3 times daily as needed changed to 4 mg Q8 hourly scheduled. 1 dose of IV Dilaudid 0.5 mg and 10 mg oral Flexeril given. Monitor pain scale. Continue PT OT #2. Hypertension: Continue home regimen including spironolactone with hold parameters as needed, PRN hydralazine. 02/25 blood pressure 146/66 acceptable as per her age. #3. Hyperlipidemia: continue patient home statin therapy. #4. Chronic Kidney Disease Stage II: Admission BUN/Cr 18/0.77, GFR 76, baseline renal function 0.7-0.9, repeat creatinine 0.84. #5. Chronic normocytic anemia: Admission hemoglobin 9.1, MCV 91.5, repeat hemoglobin is 9.4 #6. Restless leg syndrome: continue patient home Requip regimen. #7. DVT prophylaxis: Lovenox. #8. CODE status: Patient KELL is her who is and living will is currently. Discussed CODE status at length including difference between FULL code, DNR-CCA and DNR-CC status. Following discussions about the differences in these status, requested Full Code status. Charges/Coding Visit Charges Inpatient E&M: 41381 Subs Hosp L2
--- NOTE | 2025-02-25 12:39 | CASEMGMT ---
Discharge Planning A list of SNF providers including quality and resource use data and consistent with the patient's preferred geographic region, medical needs, and insurance network was created in [facility] Guide.? This list was provided to the SW. Minnie Granger Discharge Planning Asst.
[2025-02-25 14:06] VITALS: BP 117/67; PULSE 78; RESP 16; TEMP 36.4; O2SAT 98
--- NOTE | 2025-02-25 16:34 | CASEMGMT ---
AUTUMN ARCHULETA NOTE: Call received from Vanessa @ [facility], [facility] slated for Lydia. Tres HOYOS RN CM
--- NOTE | 2025-02-25 16:34 | CASEMGMT ---
Social Work- SW met with pt and pt spouse to discuss inpatient status and provide SNF list. Pt and pt spouse both express uncertainty about pt ability to go home at this time. Pt reports that she is goofy and not able to function well due to pain and medications. Pain management did adjust medications for this evening. SKYLER called and updated dtr Roxy as well. Current plan is [facility] Friday. MICHAEL Carvajal
[2025-02-25 18:18] VITALS: BP 121/63; PULSE 73; RESP 16; TEMP 36.5; O2SAT 98
[2025-02-25 20:32] VITALS: BP 98/61; PULSE 73; RESP 15; TEMP 36.4; O2SAT 95
[2025-02-25] MEDS: Senna/Docusate Sodium 1 Tablet 2 TABLET PO (22:58)
[2025-02-26 03:01] VITALS: BP 112/62; PULSE 70; RESP 15; TEMP 36.6; O2SAT 97
[2025-02-26 05:55] LABS: Hematocrit 35.8 % (37-47); Hemoglobin 11.4 g/dL (12.0-15.0); Immature Granulocytes Count 0.080 X10^3/uL (0.0-0.0); Mean Corp Hgb Conc 31.8 g/dL (32-36); Mean Corpuscular Volume 92.0 fL (81-99); Mean Platelet Vol. 9.1 fl (6.2-12.0); NRBC Flagged by Analyzer 0 % (0-5); Platelet Count 288 K/mm3 (150-450); RBC Distribution Width CV 14.8 % (11.6-14.6); RBC Distribution Width SD 49.9 fl (35.1-43.9); Red Blood Count 3.89 M/mm3 (4.2-5.4); White Blood Count 11.9 K/mm3 (4.4-11.0)
[2025-02-26 06:00] VITALS: BMI 22.2
[2025-02-26 06:24] LABS: Anion Gap 11 (5-15); BUN 34 mg/dL (4-19); BUN/Creat Ratio 38.5 RATIO (10-20); Calcium,Total 9.8 mg/dL (7.6-11.0); Carbon Dioxide 23.5 mmol/L (21.0-32.0); Chloride 97 mmol/L (98-108); Estimated Creatinine Clearance 37.22 ml/min (50-250); Glucose 90 mg/dL (70-99); Potassium 4.3 mmol/L (3.3-5.1)
--- NOTE | 2025-02-26 07:34 | PCM.PN.HOSP ---
Reason for Visit Chief Complaint: Intractable back pain, BL radiculopathy Subjective Subjective Patient is an 85-year-old gentleman who presented with intractable back pain. 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 Left hip/pelvis x-ray negative for acute abnormality. Patient underwent epidural steroid injection by pain management Objective Data Objective Data Vital Signs: Vital Signs Temp Pulse Resp BP Pulse Ox O2 Del Method O2 Flow Rate 98 F 70 15 112/62 97 Room Air 2 02/26/25 03:01 02/26/25 03:01 02/26/25 03:01 02/26/25 03:01 02/26/25 03:01 02/26/25 03:01 02/19/25 07:55 Oxygen Flow Rate (L/min) 2 Oxygen Delivery Method Room Air Weight: 55.2 kg Body Mass Index (BMI) 22.2 Intake & Output: Intake and Output for Last 24 Hours 02/24/25 02/25/25 02/26/25 23:59 23:59 23:59 Intake Total 200 / 400 900 / 1050 410 / 410 Output Total 600 / 600 Balance -400 / -200 900 / 1050 410 / 410 Lab / Micro Data 02/26/25 05:43 02/26/25 05:43 Labs: Laboratory Results - last 24 hr 02/26/25 05:43: WBC 11.9 H, RBC 3.89 L, Hgb 11.4 L, Hct 35.8 L, MCV 92.0, MCH 29.3, MCHC 31.8 L, RDW Std Deviation 49.9 H, RDW Coeff of Bailee 14.8 H, Plt Count 288, MPV 9.1, Immature Gran % (Auto) 0.700, Neut % (Auto) 56.5, Lymph % (Auto) 35.7, [place] % (Auto) 6.5, Eos % (Auto) 0.4, Baso % (Auto) 0.2, Absolute Neuts (auto) 6.7, Absolute Lymphs (auto) 4.25, Nucleated RBC % 0, Sodium 132 L, Potassium 4.3, Chloride 97 L, Carbon Dioxide 23.5, Anion Gap 11, BUN 34 H, Creatinine 0.89, Estim Creat Clear Calc 37.22 L, Est GFR (MDRD) Non-Af 64, BUN/Creatinine Ratio 38.5 H, Glucose 90, Calcium 9.8 Micro: Microbiology 02/18/25 23:30 Urine, Clean Catch Urine Culture - Final Proteus mirabilis Physical Exam Narrative GENERAL: cooperative HEENT: Atraumatic; normocephalic EYES; Anicteric, Normal Conjunctiva NECK; supple, normal thyroid, RESPIRATORY: Diminished to auscultation CARDIOVASCULAR: Regular S1 S2, GI: soft, normoactive bowel sounds, : No Renal angle tenderness; EXTREMITIES: No edema, no clubbing, MUSCULOSKELETAL: no muscle wasting NEURO: Awake; no lateralizing signs. SKIN: No Rash PSYCH; Flat affect Assessment & Plan Assessment/Plan (1) Intractable back pain: PLAN: Plan Patient is an 85-year-old gentleman who presented with intractable back pain. 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 Left hip/pelvis x-ray negative for acute abnormality. Patient underwent epidural steroid injection by pain management 1. Intractable back pain -. 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 Left hip/pelvis x-ray negative for acute abnormality. Patient underwent epidural steroid injection by pain management on 02/23/2025. Patient still complains of intractable back pain. Did discuss with patient about possibility of going to a senior living facility while her ADLs improve 2. Physical deconditioning/debility secondary to ? Requested for PT OT eval and elementary school social worker to assist with discharge planning 3. Dyslipidemia ?Patient is on statin therapy, continued at home dose 4. Anemia ? Secondary to chronic disorder monitoring H&H and transfuse if patient becomes symptomatic or hemoglobin falls below 7 5. Restless leg syndrome ? Patient is on ropinirole continue 6. DVT prophylaxis ? On enoxaparin Charges/Coding Visit Charges Inpatient E&M: 98142 Subs Hosp L2
[2025-02-26 09:00] VITALS: BP 105/60; PULSE 67; RESP 18; TEMP 36.6; O2SAT 98
--- NOTE | 2025-02-26 12:14 | CASEMGMT ---
Addendum entered by Mari Jin 02/26/25 12:23: Social Work Message sent to Vanessa in [facility] notifying to cancel referral as pt will be going to SNF. MICHAEL Mata Original Note: Social Work Physician states pt is now agreeable to go to a SNF. SW met with pt and introduced self and role of SW. SW spoke with pt regarding discharge thoughts and pt confirms she now needs SNF placement. Pt preferred provider is [facility]. SW requested pt and family review SNF list and make additional choices over the weekend. Referral emailed to Romy in TCU. SW will follow up on Friday for determination of acceptance. If TCU is not able to accept, pt will have additional choices ready. Plan: TCU, pending acceptance MICHAEL Mata
[2025-02-26 15:00] VITALS: BP 110/60; PULSE 70; RESP 18; TEMP 36.6; O2SAT 98
[2025-02-26 16:01] VITALS: PULSE 70; RESP 18; O2SAT 98
[2025-02-26 20:06] VITALS: BP 124/65; PULSE 75; RESP 16; TEMP 36.6; O2SAT 99
[2025-02-26] MEDS: Senna/Docusate Sodium 1 Tablet 2 TABLET PO (22:00)
[2025-02-26] MEDS: 0.9% Saline Lock 10 ML Syringe IV (22:01)
[2025-02-27 02:25] VITALS: BP 141/67; PULSE 70; RESP 15; TEMP 36.6; O2SAT 100
[2025-02-27] MEDS: 0.9% Saline Lock 10 ML Syringe IV ×3 (02:35→21:08)
[2025-02-27 05:27] LABS: Hematocrit 33.7 % (37-47); Hemoglobin 10.8 g/dL (12.0-15.0); Immature Granulocytes Count 0.040 X10^3/uL (0.0-0.0); Mean Corp Hgb Conc 32.0 g/dL (32-36); Mean Corpuscular Volume 92.1 fL (81-99); Mean Platelet Vol. 9.2 fl (6.2-12.0); NRBC Flagged by Analyzer 0 % (0-5); Platelet Count 214 K/mm3 (150-450); RBC Distribution Width CV 14.5 % (11.6-14.6); RBC Distribution Width SD 48.9 fl (35.1-43.9); Red Blood Count 3.66 M/mm3 (4.2-5.4); White Blood Count 6.9 K/mm3 (4.4-11.0)
[2025-02-27 05:46] LABS: Anion Gap 9 (5-15); BUN 30 mg/dL (4-19); BUN/Creat Ratio 41.9 RATIO (10-20); Calcium,Total 9.5 mg/dL (7.6-11.0); Carbon Dioxide 24.4 mmol/L (21.0-32.0); Chloride 99 mmol/L (98-108); Estimated Creatinine Clearance 41.40 ml/min (50-250); Glucose 89 mg/dL (70-99); Magnesium 1.9 mg/dL (1.5-2.2); Potassium 4.1 mmol/L (3.3-5.1)
[2025-02-27 06:02] VITALS: BMI 22.1
[2025-02-27 07:45] VITALS: O2SAT 95
--- NOTE | 2025-02-27 08:06 | PN.HOSP_ITS ---
Reason for Visit Chief Complaint: Intractable back pain, BL radiculopathy Subjective Subjective Patient seen still complains of pain. Awaiting transfer to [facility] facility to continue with rehab Objective Data Objective Data Vital Signs: Vital Signs Temp Pulse Resp BP Pulse Ox O2 Del Method O2 Flow Rate 98 F 70 15 141/67 H 95 Room Air 2 02/27/25 02:25 02/27/25 02:25 02/27/25 02:25 02/27/25 02:25 02/27/25 07:45 02/27/25 07:45 02/19/25 07:55 Oxygen Flow Rate (L/min) 2 Oxygen Delivery Method Room Air Weight: 55 kg Body Mass Index (BMI) 22.1 Intake & Output: Intake and Output for Last 24 Hours 02/25/25 02/26/25 02/27/25 23:59 23:59 23:59 Intake Total 900 / 1050 1110 / 1410 550 / 550 Balance 900 / 1050 1110 / 1410 550 / 550 Lab / Micro Data 02/27/25 05:02 02/27/25 05:02 Labs: Laboratory Results - last 24 hr 02/27/25 05:02: WBC 6.9, RBC 3.66 L, Hgb 10.8 L, Hct 33.7 L, MCV 92.1, MCH 29.5, MCHC 32.0, RDW Std Deviation 48.9 H, RDW Coeff of Bailee 14.5, Plt Count 214, MPV 9.2, Immature Gran % (Auto) 0.600, Neut % (Auto) 58.8, Lymph % (Auto) 30.6, [place] % (Auto) 9.0, Eos % (Auto) 0.9, Baso % (Auto) 0.1, Absolute Neuts (auto) 4.0, Absolute Lymphs (auto) 2.10, Nucleated RBC % 0, Sodium 132 L, Potassium 4.1, Chloride 99, Carbon Dioxide 24.4, Anion Gap 9, BUN 30 H, Creatinine 0.72, Estim Creat Clear Calc 41.40 L, Est GFR (MDRD) Non-Af 83, BUN/Creatinine Ratio 41.9 H, Glucose 89, Calcium 9.5, Phosphorus 3.2, Magnesium 1.9 Micro: Microbiology 02/18/25 23:30 Urine, Clean Catch Urine Culture - Final Proteus mirabilis Physical Exam Narrative GENERAL: cooperative HEENT: Atraumatic; normocephalic EYES; Anicteric, Normal Conjunctiva NECK; supple, normal thyroid, RESPIRATORY: Diminished to auscultation CARDIOVASCULAR: Regular S1 S2, GI: soft, normoactive bowel sounds, : No Renal angle tenderness; EXTREMITIES: No edema, no clubbing, MUSCULOSKELETAL: no muscle wasting NEURO: Awake; no lateralizing signs. SKIN: No Rash PSYCH; Flat affect Assessment & Plan Assessment/Plan (1) Intractable back pain: PLAN: Plan Patient is an 85-year-old gentleman who presented with intractable back pain. 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 Left hip/pelvis x-ray negative for acute abnormality. Patient underwent epidural steroid injection by pain management 1. Intractable back pain -. 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 Left hip/pelvis x-ray negative for acute abnormality. Patient underwent epidural steroid injection by pain management on 02/23/2025. Patient still complains of intractable back pain. Did discuss with patient about possibility of going to a [facility] facility while her ADLs improve ? 02/27/2025; patient still complains of pain. Explained to patient that hip pain will take a while to get an optimal control since she just had her epidural steroid injection. 2. Physical deconditioning/debility secondary to ? Requested for PT OT eval and social insurance administrator to assist with discharge planning 3. Dyslipidemia ?Patient is on statin therapy, continued at home dose 4. Anemia ? Secondary to chronic disorder monitoring H&H and transfuse if patient becomes symptomatic or hemoglobin falls below 7 5. Restless leg syndrome ? Patient is on ropinirole continue 6. DVT prophylaxis ? On enoxaparin Time spent in the patient's overall evaluation,decision-making process, review of diagnostic data, adjustment of management, discussion with other providers, nursing nursing and ancillary staff involved in patient's care documentation, 36 Minutes Charges/Coding Visit Charges Inpatient E&M: 45293 Subs Hosp L2
[2025-02-27 09:00] VITALS: BP 108/53; PULSE 69; RESP 16; TEMP 36.6; O2SAT 96
[2025-02-27] MEDS: Polyethylene Glycol 3350 17 GM PACKET PO (09:23)
[2025-02-27] MEDS: Senna/Docusate Sodium 1 Tablet 2 TABLET PO ×2 (09:25→21:09)
[2025-02-27 15:00] VITALS: BP 132/67; PULSE 72; RESP 16; TEMP 36.6; O2SAT 98
[2025-02-27 20:14] VITALS: BP 129/54; PULSE 73; RESP 16; TEMP 36.6; O2SAT 100
[2025-02-28 02:29] VITALS: BP 130/70; PULSE 59; RESP 16; TEMP 36.4; O2SAT 99
[2025-02-28 04:47] LABS: Hematocrit 32.7 % (37-47); Hemoglobin 10.5 g/dL (12.0-15.0); Immature Granulocytes Count 0.030 X10^3/uL (0.0-0.0); Mean Corp Hgb Conc 32.1 g/dL (32-36); Mean Corpuscular Volume 92.4 fL (81-99); Mean Platelet Vol. 9.5 fl (6.2-12.0); NRBC Flagged by Analyzer 0 % (0-5); Platelet Count 209 K/mm3 (150-450); RBC Distribution Width CV 14.5 % (11.6-14.6); RBC Distribution Width SD 49.1 fl (35.1-43.9); Red Blood Count 3.54 M/mm3 (4.2-5.4); White Blood Count 6.6 K/mm3 (4.4-11.0)
[2025-02-28 05:11] LABS: Anion Gap 9 (5-15); BUN 24 mg/dL (4-19); BUN/Creat Ratio 33.6 RATIO (10-20); Calcium,Total 9.5 mg/dL (7.6-11.0); Carbon Dioxide 25.3 mmol/L (21.0-32.0); Chloride 100 mmol/L (98-108); Estimated Creatinine Clearance 41.40 ml/min (50-250); Glucose 96 mg/dL (70-99); Potassium 4.0 mmol/L (3.3-5.1)
[2025-02-28] MEDS: 0.9% Saline Lock 10 ML Syringe IV (05:26)
[2025-02-28 05:41] VITALS: BMI 23.0
--- NOTE | 2025-02-28 07:07 | PCM.PN.HOSP ---
Reason for Visit Chief Complaint: Intractable back pain, BL radiculopathy Subjective Subjective Patient seen still complains of intractable back pain awaiting transfer to a intermediate facility Objective Data Objective Data Vital Signs: Vital Signs Temp Pulse Resp BP Pulse Ox O2 Del Method O2 Flow Rate 97.6 F L 59 L 16 130/70 H 99 Room Air 2 02/28/25 02:29 02/28/25 02:29 02/28/25 02:29 02/28/25 02:29 02/28/25 02:29 02/28/25 02:29 02/19/25 07:55 Oxygen Flow Rate (L/min) 2 Oxygen Delivery Method Room Air Weight: 56.8 kg Body Mass Index (BMI) 23.0 Intake & Output: Intake and Output for Last 24 Hours 02/26/25 02/27/25 02/28/25 23:59 23:59 23:59 Intake Total 1110 / 1410 550 / 830 280 / 280 Output Total 250 / 250 Balance 1110 / 1410 550 / 830 30 / 30 Medical Nutrition Assessment Dietitian: Malnutrition Criteria Met Start: 02/27/25 13:58 Freq: Status: Active Protocol: Document 02/27/25 13:58 RMA (Rec: 02/27/25 13:59 RMA [id number]) Nutrition Malnutrition Evidence of Yes Malnutrition Exists Malnutrition ( Chronic moderate): Evidenced By Suboptimal Energy Intake (Moderate),Weight Loss (Severe ) Clinical Problem Chronic Disease or Condition Related Malnutrition Etiology moderate to severe protein-calorie malnutrition in the context of chronic back pain/debility related to inadequate oral/energy intake Signs/Symptoms as evidenced by ~6-8% unintentional weight loss x past 1 month and PO meeting less than 50-75% of estimated nutrition needs x past 1 month; BMI 22.2 Status Active Problem Recommendation Dietitian Will liberalize diet to regular to help optimize oral Recommendations/ intake at meals. Changes Will add 240mL ensure plus HP w/ breakfast tray for tolerance. Trend weights and adjust ONS as needed to prevent further weight loss. Lab / Micro Data 02/28/25 03:40 02/28/25 03:40 Labs: Laboratory Results - last 24 hr 02/28/25 03:40: WBC 6.6, RBC 3.54 L, Hgb 10.5 L, Hct 32.7 L, MCV 92.4, MCH 29.7, MCHC 32.1, RDW Std Deviation 49.1 H, RDW Coeff of Bailee 14.5, Plt Count 209, MPV 9.5, Immature Gran % (Auto) 0.500, Neut % (Auto) 58.8, Lymph % (Auto) 28.6, [place] % (Auto) 10.8 H, Eos % (Auto) 1.1, Baso % (Auto) 0.2, Absolute Neuts (auto) 3.9, Absolute Lymphs (auto) 1.88, Nucleated RBC % 0, Sodium 135, Potassium 4.0, Chloride 100, Carbon Dioxide 25.3, Anion Gap 9, BUN 24 H, Creatinine 0.70, Estim Creat Clear Calc 41.40 L, Est GFR (MDRD) Non-Af 85, BUN/Creatinine Ratio 33.6 H, Glucose 96, Calcium 9.5 Micro: Microbiology 02/18/25 23:30 Urine, Clean Catch Urine Culture - Final Proteus mirabilis Physical Exam Narrative GENERAL: cooperative HEENT: Atraumatic; normocephalic EYES; Anicteric, Normal Conjunctiva NECK; supple, normal thyroid, RESPIRATORY: Diminished to auscultation CARDIOVASCULAR: Regular S1 S2, GI: soft, normoactive bowel sounds, : No Renal angle tenderness; EXTREMITIES: No edema, no clubbing, MUSCULOSKELETAL: no muscle wasting NEURO: Awake; no lateralizing signs. SKIN: No Rash PSYCH; Flat affect Assessment & Plan Assessment/Plan (1) Intractable back pain: PLAN: Plan Patient is an 85-year-old gentleman who presented with intractable back pain. 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 Left hip/pelvis x-ray negative for acute abnormality. Patient underwent epidural steroid injection by pain management 1. Intractable back pain -. 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 Left hip/pelvis x-ray negative for acute abnormality. Patient underwent epidural steroid injection by pain management on 02/23/2025. Patient still complains of intractable back pain. Did discuss with patient about possibility of going to a intermediate facility while her ADLs improve ? 02/27/2025; patient still complains of pain. Explained to patient that hip pain will take a while to get an optimal control since she just had her epidural steroid injection. 2. Physical deconditioning/debility secondary to ? Requested for PT OT eval and professor of social work to assist with discharge planning 3. Dyslipidemia ?Patient is on statin therapy, continued at home dose 4. Anemia ? Secondary to chronic disorder monitoring H&H and transfuse if patient becomes symptomatic or hemoglobin falls below 7 5. Restless leg syndrome ? Patient is on ropinirole continue 6. DVT prophylaxis ? On enoxaparin 7.Severe malnutrition -Related to: chronic back pain/debility related to inadequate oral/energy intake As evidenced by: ~6-8% unintentional weight loss x past 1 month and PO meeting less than 50-75% of estimated nutrition needs x past 1 month; BMI 22.2 With treatment/resources used including: Will liberalize diet to regular to help optimize oral intake at meals. Will add 240mL ensure plus HP w/ breakfast tray for tolerance. Trend weights and adjust ONS as needed to prevent further weight loss. Time spent in the patient's overall evaluation,decision-making process, review of diagnostic data, adjustment of management, discussion with other providers, nursing nursing and ancillary staff involved in patient's care documentation, 35 Minutes Charges/Coding Visit Charges Inpatient E&M: 75271 Subs Hosp L2
[2025-02-28 08:44] VITALS: BP 129/58; PULSE 62; RESP 18; TEMP 36.3; O2SAT 96
[2025-02-28] MEDS: Senna/Docusate Sodium 1 Tablet 2 TABLET PO (08:48)
--- NOTE | 2025-02-28 09:46 | PCM.DC.SUM ---
Providers Date of Admission: 02/25/25 Date of Discharge: 02/28/25 Primary Care Physician: Dr. Juan Hassan MD Consultations 02/19/25 00:42 Consult: Orthopedics Routine Consulting Provider: Paul Gutierrez Reason for Consult: L diffuse posterior disc bulges inducing encroachment upon the neural exit EMERGENT Consult: No MD Notified: Yes Date Notified: 02/19/25 Time Notified: 06:52 Method of Notification: Text 02/21/25 11:07 Consult: Pain Management Routine Consulting Provider: Arnaud Alvarez Reason for Consult: Lumbar radiculopathy with severe pain, radiation to left thigh EMERGENT Consult: No MD Notified: Yes Date Notified: 02/21/25 Time Notified: 10:07 Method of Notification: Verbal Reason For Visit: INTRACTABLE BACK PAIN, RADICULOPATHY Diagnosis Discharge Diagnosis (1) Intractable back pain: Status: Acute Code(s): M54.9 - Dorsalgia, unspecified Plan Patient is an 85-year-old gentleman who presented with intractable back pain. 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 Left hip/pelvis x-ray negative for acute abnormality. Patient underwent epidural steroid injection by pain management 1. Intractable back pain -. 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 Left hip/pelvis x-ray negative for acute abnormality. Patient underwent epidural steroid injection by pain management on 02/23/2025. Patient still complains of intractable back pain. Did discuss with patient about possibility of going to a alf facility while her ADLs improve ? 02/27/2025; patient still complains of pain. Explained to patient that hip pain will take a while to get an optimal control since she just had her epidural steroid injection. 2. Physical deconditioning/debility secondary to ? Requested for PT OT eval and secondary social studies teacher to assist with discharge planning 3. Dyslipidemia ?Patient is on statin therapy, continued at home dose 4. Anemia ? Secondary to chronic disorder monitoring H&H and transfuse if patient becomes symptomatic or hemoglobin falls below 7 5. Restless leg syndrome ? Patient is on ropinirole continue 6. DVT prophylaxis ? On enoxaparin 7.Severe malnutrition -Related to: chronic back pain/debility related to inadequate oral/energy intake As evidenced by: ~6-8% unintentional weight loss x past 1 month and PO meeting less than 50-75% of estimated nutrition needs x past 1 month; BMI 22.2 With treatment/resources used including: Will liberalize diet to regular to help optimize oral intake at meals. Will add 240mL ensure plus HP w/ breakfast tray for tolerance. Trend weights and adjust ONS as needed to prevent further weight loss. Time spent in the patient's overall evaluation,decision-making process, review of diagnostic data, adjustment of management, discussion with other providers, nursing nursing and ancillary staff involved in patient's care documentation, 35 Minutes Medications at Discharge Home Medications aspirin 81 mg chewable tablet 81 mg PO DAILY@0800 heart health 02/26/13 calcium 600 mg (as carbonate)-vitamin D3 20 mcg (800 unit) tablet 600 mg PO DINNER supplement 02/26/13 pravastatin 20 mg tablet 20 mg PO QHS cholesterol 12/05/19 cholecalciferol (vitamin D3) 25 mcg (1,000 unit) capsule 25 mcg PO DAILY 12/21/24 magnesium 200 mg tablet 400 mg PO DAILY 12/21/24 ropinirole 4 mg tablet 4 mg PO QHS 12/21/24 spironolactone 25 mg tablet 25 mg PO DAILY 02/19/25 acetaminophen 325 mg tablet 650 mg (2 x 325 mg) PO Q4H PRN PRN Fever, pain 1-12/17 #0 tabs 02/28/25 albuterol sulfate 2.5 mg/3 mL (0.083 %) solution for nebulization 2.5 mg (3 mL) inhalation Q2H PRN PRN Dyspnea, wheezing #0 mL 02/28/25 gabapentin 300 mg capsule 300 mg PO TIDCM #0 caps 02/28/25 melatonin 3 mg tablet 3 mg PO QHS PRN PRN Insomnia #0 tabs 02/28/25 oxycodone 5 mg tablet 5 mg PO Q4H PRN PRN Pain Score 4-10 1 day #1 TAB 02/28/25 sennosides 8.6 mg-docusate sodium 50 mg tablet (Stimulant Laxative Plus) 2 tab PO BID #0 tabs 02/28/25 tizanidine 2 mg tablet 4 mg (2 x 2 mg) PO Q8 #0 tabs 02/28/25 Physical Exam Narrative GENERAL: cooperative HEENT: Atraumatic; normocephalic EYES; Anicteric, Normal Conjunctiva NECK; supple, normal thyroid, RESPIRATORY: Diminished to auscultation CARDIOVASCULAR: Regular S1 S2, GI: soft, normoactive bowel sounds, : No Renal angle tenderness; EXTREMITIES: No edema, no clubbing, MUSCULOSKELETAL: no muscle wasting NEURO: Awake; no lateralizing signs. SKIN: No Rash PSYCH; Flat affect Medical Records Data Medical Nutrition Assessment Dietitian: Malnutrition Criteria Met Start: 02/27/25 13:58 Freq: Status: Active Protocol: Document 02/27/25 13:58 RMA (Rec: 02/27/25 13:59 RMA [id number]) Nutrition Malnutrition Evidence of Yes Malnutrition Exists Malnutrition ( Chronic moderate): Evidenced By Suboptimal Energy Intake (Moderate),Weight Loss (Severe ) Clinical Problem Chronic Disease or Condition Related Malnutrition Etiology moderate to severe protein-calorie malnutrition in the context of chronic back pain/debility related to inadequate oral/energy intake Signs/Symptoms as evidenced by ~6-8% unintentional weight loss x past 1 month and PO meeting less than 50-75% of estimated nutrition needs x past 1 month; BMI 22.2 Status Active Problem Recommendation Dietitian Will liberalize diet to regular to help optimize oral Recommendations/ intake at meals. Changes Will add 240mL ensure plus HP w/ breakfast tray for tolerance. Trend weights and adjust ONS as needed to prevent further weight loss. Weight / BMI Weight Weight: 56.8 kg Body Mass Index (BMI) 23.0 ABG / Lab / Microbiology Data 02/28/25 03:40 02/28/25 03:40 Laboratory: Laboratory Results - last 24 hr 02/28/25 03:40: WBC 6.6, RBC 3.54 L, Hgb 10.5 L, Hct 32.7 L, MCV 92.4, MCH 29.7, MCHC 32.1, RDW Std Deviation 49.1 H, RDW Coeff of Bailee 14.5, Plt Count 209, MPV 9.5, Immature Gran % (Auto) 0.500, Neut % (Auto) 58.8, Lymph % (Auto) 28.6, Dougherty % (Auto) 10.8 H, Eos % (Auto) 1.1, Baso % (Auto) 0.2, Absolute Neuts (auto) 3.9, Absolute Lymphs (auto) 1.88, Nucleated RBC % 0, Sodium 135, Potassium 4.0, Chloride 100, Carbon Dioxide 25.3, Anion Gap 9, BUN 24 H, Creatinine 0.70, Estim Creat Clear Calc 41.40 L, Est GFR (MDRD) Non-Af 85, BUN/Creatinine Ratio 33.6 H, Glucose 96, Calcium 9.5 Microbiology: Microbiology 02/18/25 23:30 Urine, Clean Catch Urine Culture - Final Proteus mirabilis D/C Instructions DC O2, CPAP, BIPAP Needs Home O2 Discharge instructions: No Patient's Goals Of Care - F/U Goals Reviewed Goals of care reviewed with patient: NA-No significant change in clinical Status /major procedure scheduled Meaningful Use Info Meaningful Use Meaningful Use Diagnoses (Choose all that apply): None applicable Discharge Plan Admission Admit Date/Time: 02/25/25 13:55 Attending Provider: Fazal Thompson Primary Care Provider: Juan Hassan Consulting Providers: Paul Gutierrez; Susan Costa; Arnaud Alvarez; Nicolas Yan Discharge Orders/Prescriptions Prescriptions: New melatonin 3 mg Tablet 3 mg PO QHS PRN PRN (Reason: Insomnia) Qty: 0 0RF gabapentin 300 mg Capsule 300 mg PO TIDCM Qty: 0 0RF sennosides-docusate sodium [Stimulant Laxative Plus] 8.6-50 mg Tablet 2 tab PO BID Qty: 0 0RF tizanidine 2 mg Tablet 4 mg PO Q8 Qty: 0 0RF oxycodone 5 mg Tablet 5 mg PO Q4H PRN PRN (Reason: Pain Score 4-10) 1 Days Qty: 1 0RF acetaminophen 325 mg Tablet 650 mg PO Q4H PRN PRN (Reason: Fever, pain 1-10/10) Qty: 0 0RF albuterol sulfate 2.5 mg /3 mL (0.083 %) Solution For Nebulization 2.5 mg inhalation Q2H PRN PRN (Reason: Dyspnea, wheezing) Qty: 0 0RF Continued aspirin 81 MG tablet,chewable 81 mg PO DAILY@0800 calcium carbonate-vitamin D3 1 EACH tablet 600 mg PO DINNER pravastatin 20 MG tablet 20 mg PO QHS ropinirole 4 mg tablet 4 mg PO QHS cholecalciferol (vitamin D3) 25 mcg (1,000 unit) capsule 25 mcg PO DAILY magnesium 200 mg tablet 400 mg PO DAILY spironolactone 25 mg tablet 25 mg PO DAILY Discontinued potassium chloride [K-Tab] 20 mEq tablet extended release 20 meq PO QDAY Referrals / Follow Up: Juan Hassan MD [Primary Care Provider, Family Practice] Arnaud Alvarez MD [Med Staff - Active Staff, Pain Management] Disposition Disposition (needs filled in before D/C Order can be placed): [facility] Charges/Coding Visit Charges Inpatient E&M: 45840 Disch Hosp >30min
--- NOTE | 2025-02-28 09:48 | TREXTCAR_ITS ---
Diet Diet Order/Speech Therapy: INPATIENT Hospital Diet / Speech Therapy Order(s) 02/27/25 13:59 Diet: Regular - General Food consistency:: Regular Liquid Consistency:: Regular/Thin Type of Dietary Supplement:: Ensure Plus High Protein Diet Comments: 240mL ensure plus HP on breakfast tray Routine Orders/Code Status Code Status: Full Code DC O2, CPAP, BIPAP needs Home O2 Discharge instructions: No Wound(s) BACK: Wound Type: INJECTION Therapies Physical Therapy: Eval and Treat Occupational Therapy: Eval and Treat Problem/Diagnosis (1) Intractable back pain: Status: Acute Code(s): M54.9 - Dorsalgia, unspecified Plan Patient is an 85-year-old gentleman who presented with intractable back pain. 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 Left hip/pelvis x-ray negative for acute abnormality. Patient underwent epidural steroid injection by pain management 1. Intractable back pain -. 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 Left hip/pelvis x-ray negative for acute abnormality. Patient underwent epidural steroid injection by pain management on 02/23/2025. Patient still complains of intractable back pain. Did discuss with patient about possibility of going to a [place] [facility] facility while her ADLs improve ? 02/27/2025; patient still complains of pain. Explained to patient that hip pain will take a while to get an optimal control since she just had her epidural steroid injection. 2. Physical deconditioning/debility secondary to ? Requested for PT OT eval and psychosocial rehabilitation counselor to assist with discharge planning 3. Dyslipidemia ?Patient is on statin therapy, continued at home dose 4. Anemia ? Secondary to chronic disorder monitoring H&H and transfuse if patient becomes symptomatic or hemoglobin falls below 7 5. Restless leg syndrome ? Patient is on ropinirole continue 6. DVT prophylaxis ? On enoxaparin 7.Severe malnutrition -Related to: chronic back pain/debility related to inadequate oral/energy intake As evidenced by: ~6-8% unintentional weight loss x past 1 month and PO meeting less than 50-75% of estimated nutrition needs x past 1 month; BMI 22.2 With treatment/resources used including: Will liberalize diet to regular to help optimize oral intake at meals. Will add 240mL ensure plus HP w/ breakfast tray for tolerance. Trend weights and adjust ONS as needed to prevent further weight loss. Time spent in the patient's overall evaluation,decision-making process, review of diagnostic data, adjustment of management, discussion with other providers, nursing nursing and ancillary staff involved in patient's care documentation, 35 Minutes Allergies/Procedures Done in Hospital Allergies Sulfa (Sulfonamide Antibiotics) Allergy (Verified 02/18/25 20:55) Swelling hydrocodone bitartrate (From Vicodin) Adverse Reaction (Verified 02/18/25 20:55) Vomiting promethazine HCl (From Phenergan) Adverse Reaction (Verified 02/18/25 20:55) Vomiting Type of Care/Length of Stay Estimated LOS: Convalescent Care Less Than 30 days Type of Care Needed: Skilled Rehab Potential: Good Prognosis: Good Additional Orders/Day of Discharge Day of Discharge: 02/28/25 Dietary and Speech Recommendations Dietitian Recommendations/Changes: Will liberalize diet to regular to help optimize oral intake at meals. Will add 240mL ensure plus HP w/ breakfast tray for tolerance. Trend weights and adjust ONS as needed to prevent further weight loss. Discharge Plan Admission Admit Date/Time: 02/25/25 13:55 Attending Provider: Fazal Thompson Primary Care Provider: Juan Hassan Consulting Providers: Paul Gutierrez; Susan Costa; Arnaud Alvarez; Nicolas Yan Discharge Orders/Prescriptions Prescriptions: New melatonin 3 mg Tablet 3 mg PO QHS PRN PRN (Reason: Insomnia) Qty: 0 0RF gabapentin 300 mg Capsule 300 mg PO TIDCM Qty: 0 0RF sennosides-docusate sodium [Stimulant Laxative Plus] 8.6-50 mg Tablet 2 tab PO BID Qty: 0 0RF tizanidine 2 mg Tablet 4 mg PO Q8 Qty: 0 0RF oxycodone 5 mg Tablet 5 mg PO Q4H PRN PRN (Reason: Pain Score 4-10) 1 Days Qty: 1 0RF acetaminophen 325 mg Tablet 650 mg PO Q4H PRN PRN (Reason: Fever, pain 1-10/10) Qty: 0 0RF albuterol sulfate 2.5 mg /3 mL (0.083 %) Solution For Nebulization 2.5 mg inhalation Q2H PRN PRN (Reason: Dyspnea, wheezing) Qty: 0 0RF Continued aspirin 81 MG tablet,chewable 81 mg PO DAILY@0800 calcium carbonate-vitamin D3 1 EACH tablet 600 mg PO DINNER pravastatin 20 MG tablet 20 mg PO QHS ropinirole 4 mg tablet 4 mg PO QHS cholecalciferol (vitamin D3) 25 mcg (1,000 unit) capsule 25 mcg PO DAILY magnesium 200 mg tablet 400 mg PO DAILY spironolactone 25 mg tablet 25 mg PO DAILY Discontinued potassium chloride [K-Tab] 20 mEq tablet extended release 20 meq PO QDAY Referrals / Follow Up: Juan Hassan MD [Primary Care Provider, Family Practice] Arnaud Alvarez MD [Med Staff - Active Staff, Pain Management] Disposition Disposition (needs filled in before D/C Order can be placed): [facility]
--- NOTE | 2025-02-28 10:32 | CASEMGMT ---
Social Work Physician updated and pt is ready for discharge today.? SW met with pt and they are agreeable to discharge plan as stated above.? Bedside nurse notified of discharge. SW called pt spouse and pt dtr to inform of pt d/c to [facility]; SW provided directions to unit to spouse. SW left voicemail for pt dtr. Disposition: [facility]HA[facility] Roberson
--- NOTE | 2025-02-28 10:37 | NURSING ---
called report to Rehab, all questions answered. they are ready for the patient anytime
== END 2025-02-28 10:48 | disposition skilled nursing facility (03) | DRG 551 ==
LOC: ED 23:58 → MS3 02-19 00:19
PROVIDERS: Anesthesiology; Internal Medicine; Admitting Provider Family Medicine; Emergency Provider Surgery; PCP Family Medicine; Visit Provider Internal Medicine
PROC: 3E0S3BZ Introduction of Anesthetic Agent into Epidural Space, Percutaneous Approach (ICD-10-PCS; CPT 62322; principal; 2025-02-23 14:25)
DX: M54.9 Dorsalgia, unspecified (principal); E43 Unspecified severe protein-calorie malnutrition; I12.9 Hypertensive chronic kidney disease with stage 1 through stage 4 chronic kidney disease, or unspecified chronic kidney disease; G25.81 Restless legs syndrome; D64.9 Anemia, unspecified; M51.16 Intervertebral disc disorders with radiculopathy, lumbar region; E78.5 Hyperlipidemia, unspecified; M47.26 Other spondylosis with radiculopathy, lumbar region; M51.17 Intervertebral disc disorders with radiculopathy, lumbosacral region; M48.07 Spinal stenosis, lumbosacral region; M48.062 Spinal stenosis, lumbar region with neurogenic claudication; N18.2 Chronic kidney disease, stage 2 (mild); M43.16 Spondylolisthesis, lumbar region; M16.0 Bilateral primary osteoarthritis of hip; R10.A1 Flank pain, right side; R53.81 Other malaise; G89.29 Other chronic pain; Z82.49 Family history of ischemic heart disease and other diseases of the circulatory system; Z98.1 Arthrodesis status; Z68.23 Body mass index [BMI] 23.0-23.9, adult
CPT/HCPCS: 36415; 64483; 72020; 72120; 72131; 72148; 73502; 80048; 80053; 81001; 82550; 83735; 84100; 85025; 87077; 87086; 87088; 87186; 94668; 97116; 97162; 97166; 97530; 97535; 99252; 99285; A4216; G0463; J2405